=== PATIENT | male | born 1940 | race Caucasian/White ===

== ENCOUNTER 2017-11-07 20:21 | Emergency (ER) | payer OTHER, MEDICARE ==
[2017-11-07] MEDS ORDERED: IPRATROPIUM BROM 0.5MG/2.5ML ONE (21:15)
[2017-11-07] MEDS ORDERED: ALBUTEROL 2.5 MG/3 ML NEB SOL ONE (21:15)
[2017-11-07] MEDS ORDERED: ACETAMINOPHEN 500 MG TAB ONE (21:16)
[2017-11-07 21:30] LABS: Absolute Lymphocytes (CBC) 0.6 K/uL (0.7-4.9); Absolute Monocytes 0.4 K/uL (0.1-1.3); Absolute Neutrophil 3.2 K/uL (1.8-8.0); Basophils % 0.8 % (0-1.3); Eosinophils % 1.2 % (0-4.4); Hematocrit 44.3 % (39.6-49.0); Lymphocytes % 14.1 % (15.3-44.8); MCH 31.6 pg (27.0-35.0); MCV 97.9 fL (80-100); Monocytes % 9.6 % (3.3-12.3); RBC Red Blood Cell Count 4.52 M/uL (4.33-5.43)
[2017-11-07 21:36] LABS: Protime INR 1.12
[2017-11-07 21:47] LABS: ALT/SGPT 29 U/L (12-78); AST/SGOT 20 U/L (15-37); Albumin 2.8 g/dL (3.4-5.0); Alkaline Phosphatase 87 U/L (45-117); BUN Blood Urea Nitrogen 18 mg/dL (7-18); Bicarbonate 28 mmol/L (21-32); Bilirubin Direct < 0.1 mg/dL (0-0.2); Bilirubin Total 0.2 mg/dL (0.2-1.0); Glucose Level 204 mg/dL (74-106); Magnesium 1.8 mg/dL (1.8-2.4); Potassium 3.9 mmol/L (3.5-5.1); Protein, Total 5.8 g/dL (6.4-8.2); Sodium Level 141 mmol/L (136-145)
--- NOTE | 2017-11-07 21:52 | RAD REPORT ---
EXAM DESCRIPTION: RAD - Chest Pa And Lat (2 Views) - 11/07/2017 9:19 pm CLINICAL HISTORY: Persistent cough COMPARISON: April 2017 TECHNIQUE: PA and lateral views of the chest were obtained. FINDINGS: The lungs are fibrotic as a baseline. Interstitial pattern is stable from comparison. No p eripheral mass, consolidation or failure finding. Cardiomediastinal silhouette within normal limits. Trachea is midline. Normal variant colonic interposition between the liver and the right hemidiaphr agm. No pleural effusion or pneumothorax seen. No acute bony finding noted. No aortic abnormality. IMPRESSION: Chronic interstitial lung disease similar to comparison. No acute cardiopulmonary findin g.
[2017-11-07] MEDS ORDERED: AZITHROMYCIN 250 MG TAB ONE (22:38)
[2017-11-07] MEDS ORDERED: CEFTRIAXONE/SWI 1gm 2 GM/20 ML SYR ONE (22:39)
--- NOTE | 2017-11-07 22:49 | ER ---
Nurse's Notes [facility] Name: Elver Tee Age: 77 yrs Sex: Male : 1940 Arrival Date: 11/07/2017 Time: 20:22 Bed 16 Private MD: Mkie Duckworth V Diagnosis: Acute cough;Acute sore throat Presentation: 11/07 20:28 Presenting complaint: Patient states: cough X2 days and throat pain since this morning. ak1 Transition of care: patient was not received from another setting of care. Onset of symptoms was November 07, 2017. Risk Assessment: Do you want to hurt yourself or someone else? Patient reports no desire to harm self or others. Initial Sepsis Screen: Does the patient meet any 2 criteria? No. Patient's initial sepsis screen is negative. Does the patient have a suspected source of infection? No. Patient's initial sepsis screen is negative. Care prior to arrival: None. 20:28 Method Of Arrival: Ambulatory ak1 20:28 Acuity: CUAUHTEMOC 3 ea Triage Assessment: 20:29 General: Appears in no apparent distress. Behavior is calm, cooperative. Pain: ak1 Complains of pain in throat. EENT: Throat is reddened with gag reflex present. Neuro: No deficits noted. Cardiovascular: No deficits noted. Respiratory: No deficits noted. GI: No signs and/or symptoms were reported involving the gastrointestinal system. : No signs and/or symptoms were reported regarding the genitourinary system. Derm: No signs and/or symptoms reported regarding the dermatologic system. Musculoskeletal: No signs and/or symptoms reported regarding the musculoskeletal system. Historical: - Allergies: 20:29 Bacitracin Zinc; ak1 20:29 Neomycin Sulfate; ak1 20:29 Polymyxin B Sulfate; ak1 - Home Meds: 20:29 mirtazapine 15 mg Oral TbDL 1 tab once daily [Active]; Invega 3 mg Oral tr24 [Active]; ak1 Depakote Oral [Active]; clonazepam 2 mg Oral tab 2 tabs [Active]; - PMHx: 20:29 Bipolar disorder; Paranoid Schizophrenia; ak1 - PSHx: 20:29 left hip sx; bilateral knee sx; ak1 - Immunization history:: Adult Immunizations unknown. - Social history:: Smoking status: Patient/guardian denies using tobacco. - Ebola Screening: : No symptoms or risks identified at this time. - Family history:: not pertinent. - Hospitalizations: : No recent hospitalization is reported. Screenin:31 Abuse screen: Denies threats or abuse. Denies injuries from another. Nutritional ak1 screening: No deficits noted. Tuberculosis screening: No symptoms or risk factors identified. Fall Risk Ambulatory Aid- Crutches/Cane/Walker (15 pts). Assessment: 20:31 Respiratory: Airway is patent Respiratory effort is even, unlabored. ak1 22:21 General: Appears uncomfortable, slender, well groomed, well developed, well nourished, tl3 Behavior is calm, cooperative, appropriate for age. Pain: Denies pain. Neuro: Level of Consciousness is awake, alert, Oriented to person, place, time, situation, Appropriate for age. Cardiovascular: Heart tones S1 S2 present Patient's skin is warm and dry. Respiratory: Reports cough that is Breath sounds are coarse bilaterally. Breath sounds are diminished bilaterally. GI: No signs and/or symptoms were reported involving the gastrointestinal system. : No signs and/or symptoms were reported regarding the genitourinary system. EENT: No signs and/or symptoms were reported regarding the EENT system. Derm: No signs and/or symptoms reported regarding the dermatologic system. Musculoskeletal: No signs and/or symptoms reported regarding the musculoskeletal system. 23:03 Reassessment: Patient appears in no apparent distress at this time. No changes from tl3 previously documented assessment. Patient and/or family updated on plan of care and expected duration. Pain level reassessed. Patient is alert, oriented x 3, equal unlabored respirations, skin warm/dry/pink. marshall radha offered, pt resting well. Vital Signs: 20:29 BP 139 / 102; Pulse 86; Resp 18; Temp 99.1(O); Pulse Ox 94% on R/A; Weight 90.72 kg ak1 (R); Height 6 ft. 0 in. (182.88 cm) (R); Pain 4/10; 22:21 BP 127 / 64; Pulse 90; Resp 18; Pulse Ox 93% on R/A; tl3 23:03 BP 124 / 80; Pulse 84; Resp 18; Pulse Ox 93% ; tl3 20:29 Body Mass Index 27.12 (90.72 kg, 182.88 cm) ak1 ED Course: 20:22 Patient arrived in ED. ds1 20:22 Mike Duckworth MD is Private Physician. ds1 20:28 Triage completed. ak1 20:29 Arm band placed on Patient placed in an exam room, on a stretcher, Patient notified of ak1 wait time. 20:31 Patient has correct armband on for positive identification. Bed in low position. Call ak1 light in reach. Side rails up X 1. 20:48 Trell Andrews MD is Attending Physician. wa 21:00 Initial Neb Treatment Given as ordered Patient was instructed and evaluated on tl3 procedure Patient tolerated procedure well without adverse effect. 21:05 Nita Medina, PENNIE is Primary Nurse. tl3 21:16 Patient moved to radiology via wheelchair. la2 21:16 X-ray completed. Patient tolerated procedure well. la2 21:17 XRAY Chest Pa And Lat (2 Views) In Process Unspecified. EDMS 21:18 Inserted saline lock: 20 gauge in right antecubital area, using aseptic technique. mt Blood collected. 22:47 Mike Duckworth MD is Referral Physician. wa 23:13 No provider procedures requiring assistance completed. IV discontinued, intact, tl3 bleeding controlled, No redness/swelling at site. Pressure dressing applied. 23:14 Throat Culture Sent. tl3 Administered Medications: 21:26 Drug: Albuterol 2.5 mg Route: Inhalation; tl3 21:26 Drug: AtroVENT Aerosol 0.5 mg Route: Inhalation; tl3 21:26 Drug: Tylenol 1000 mg Route: PO; tl3 22:46 Drug: Zithromax 500 mg Route: PO; ea 23:03 Follow up: Response: No adverse reaction tl3 22:47 Drug: Rocephin - (cefTRIAXone) 2 grams Route: IVPB; Infused Over: 30 mins; Site: right ea antecubital; 23:02 Follow up: IV Status: Completed infusion; IV Intake: 10ml tl3 Intake: 23:02 IV: 10ml; Total: 10ml. tl3 Outcome: 22:48 Discharge ordered by . wa 23:12 Discharged to home ambulatory. tl3 23:12 Condition: stable 23:12 Discharge instructions given to patient, family, Instructed on discharge instructions, follow up and referral plans. medication usage, Demonstrated understanding of instructions, follow-up care, medications, Prescriptions given X 2. 23:13 Patient left the ED. tl3 Signatures: Dispatcher [employer] EDGA Hayley Worthy ds1 Wendy Max RN RN Bria White mt, Elena, RN RN Trell Franz MD MD wa Ardoin, Leslie la2 Lowrey, Tammy, RN RN tl3 Corrections: (The following items were deleted from the chart) 21:02 20:28 Acuity: CUAUHTEMOC 4 akMayur edmondson
--- NOTE | 2017-11-07 22:49 | EDPHYS ---
Physician Documentation [facility] Name: Elver Tee Age: 77 yrs Sex: Male : 1940 Arrival Date: 11/07/2017 Time: 20:22 Bed 16 Private MD: Mike Duckworth V ED Physician Trell Andrews HPI: 11/07 21:42 This 77 yrs old Male presents to ER via Ambulatory with complaints of Sore wa Throat, Cough. 21:42 The patient presents with cough, sore throat. chest de [place] when coughs. The patient wa describes throat pain as burning, raw. Onset: The symptoms/episode began/occurred 2 day(s) ago. Severity of symptoms: At their worst the symptoms were moderate, in the emergency department the symptoms are unchanged. Modifying factors: The symptoms are alleviated by nothing, the symptoms are aggravated by nothing. Associated signs and symptoms: Pertinent positives: cough, Sore throat Pertinent negatives fever, flu-like symptoms, headache, nausea, rhinorrhea, shortness of breath. The patient has not experienced similar symptoms in the past. The patient has not recently seen a physician. Historical: - Allergies: 20:29 Bacitracin Zinc; ak1 20:29 Neomycin Sulfate; ak1 20:29 Polymyxin B Sulfate; ak1 - Home Meds: 20:29 mirtazapine 15 mg Oral TbDL 1 tab once daily [Active]; Invega 3 mg Oral tr24 [Active]; ak1 Depakote Oral [Active]; clonazepam 2 mg Oral tab 2 tabs [Active]; - PMHx: 20:29 Bipolar disorder; Paranoid Schizophrenia; ak1 - PSHx: 20:29 left hip sx; bilateral knee sx; ak1 - Immunization history:: Adult Immunizations unknown. - Social history:: Smoking status: Patient/guardian denies using tobacco. - Ebola Screening: : No symptoms or risks identified at this time. - Family history:: not pertinent. - Hospitalizations: : No recent hospitalization is reported. ROS: 21:45 Constitutional: Negative for fever, chills, and weight loss, Eyes: Negative for injury, wa pain, redness, and discharge, Neck: Negative for injury, pain, and swelling, Cardiovascular: Negative for chest pain, palpitations, and edema, Abdomen/GI: Negative for abdominal pain, nausea, vomiting, diarrhea, and constipation, Back: Negative for injury and pain, : Negative for injury, bleeding, discharge, and swelling, MS/Extremity: Negative for injury and deformity, Skin: Negative for injury, rash, and discoloration, Neuro: Negative for headache, weakness, numbness, tingling, and seizure, Psych: Negative for depression, anxiety, suicide ideation, homicidal ideation, and hallucinations. 21:45 ENT: Positive for sore throat, Negative for ear pain, rhinorrhea, sinus congestion. 21:45 Respiratory: Positive for cough, with white sputum, Negative for shortness of breath, acute changes. Exam: 21:46 Constitutional: This is a well developed, well nourished patient who is awake, alert, wa and in no acute distress. Head/Face: Normocephalic, atraumatic. Eyes: Pupils equal round and reactive to light, extra-ocular motions intact. Lids and lashes normal. Conjunctiva and sclera are non-icteric and not injected. Cornea within normal limits. Periorbital areas with no swelling, redness, or edema. Neck: Trachea midline, no thyromegaly or masses palpated, and no cervical lymphadenopathy. Supple, full range of motion without nuchal rigidity, or vertebral point tenderness. No Meningismus. Chest/axilla: Normal chest wall appearance and motion. Nontender with no deformity. No lesions are appreciated. Cardiovascular: Regular rate and rhythm with a normal S1 and S2. No gallops, murmurs, or rubs. Normal PMI, no JVD. No pulse deficits. Abdomen/GI: Soft, non-tender, with normal bowel sounds. No distension or tympany. No guarding or rebound. No evidence of tenderness throughout. Back: No spinal tenderness. No costovertebral tenderness. Full range of motion. Skin: Warm, dry with normal turgor. Normal color with no rashes, no lesions, and no evidence of cellulitis. MS/ Extremity: Pulses equal, no cyanosis. Neurovascular intact. Full, normal range of motion. Neuro: Awake and alert, GCS 15, oriented to person, place, time, and situation. Cranial nerves II-XII grossly intact. Motor strength 5/5 in all extremities. Sensory grossly intact. Cerebellar exam normal. Normal gait. Psych: Awake, alert, with orientation to person, place and time. Behavior, mood, and affect are within normal limits. 21:46 ENT: Posterior pharynx: erythema, that is moderate. 21:46 Respiratory: the patient does not display signs of respiratory distress, Respirations: normal, Breath sounds: decreased breath sounds, that are mild, are scattered, Respiratory rate: normal Vital Signs: 20:29 BP 139 / 102; Pulse 86; Resp 18; Temp 99.1(O); Pulse Ox 94% on R/A; Weight 90.72 kg ak1 (R); Height 6 ft. 0 in. (182.88 cm) (R); Pain 4/10; 22:21 BP 127 / 64; Pulse 90; Resp 18; Pulse Ox 93% on R/A; tl3 23:03 BP 124 / 80; Pulse 84; Resp 18; Pulse Ox 93% ; tl3 20:29 Body Mass Index 27.12 (90.72 kg, 182.88 cm) ak1 MDM: 20:48 Patient medically screened. wa 21:47 Differential diagnosis: pharyngitis, upper respiratory infection, viral syndrome r/o wa pna. 21:48 Test interpretation: by ED physician or midlevel provider: EKG: HR 83. sinus wa arrhythmia. no changes suggestive of acute ischemia. 22:45 Data reviewed: vital signs, nurses notes, lab test result(s), EKG, radiologic studies. wa Test interpretation: by ED physician or midlevel provider: labs noted for hyperglycemia. CXR: Interstitial abnml similar to previous. no acute process. Response to treatment: the patient's symptoms have mildly improved after treatment. ED course: pt's symptoms concerning for pna although CXR not diagnostic. will cover empirically and advise close f/u. 11/07 20:57 Order name: Blood Culture Adult (2) 11/07 20:57 Order name: BMP; Complete Time: 22:20 11/07 20:57 Order name: CBC with Diff; Complete Time: 22:20 11/07 20:57 Order name: Hepatic Function; Complete Time: 22:20 11/07 20:57 Order name: Magnesium; Complete Time: 22:21 11/07 20:57 Order name: PT-INR; Complete Time: 22:21 11/07 20:57 Order name: XRAY Chest Pa And Lat (2 Views); Complete Time: 22:21 11/07 20:57 Order name: Troponin (emerg Dept Use Only); Complete Time: 22:21 nh 11/07 20:57 Order name: Strep; Complete Time: 22:20 nh 11/07 21:48 Order name: Throat Culture EDWY 11/07 20:57 Order name: EKG; Complete Time: 20:57 nh 11/07 20:57 Order name: Cardiac monitoring; Complete Time: 21:37 nh 11/07 20:57 Order name: EKG - Nurse/Tech; Complete Time: 21:37 nh 11/07 20:57 Order name: IV Saline Lock; Complete Time: 21:17 nh 11/07 20:57 Order name: Labs collected and sent; Complete Time: 21:17 nh 11/07 20:57 Order name: O2 Per Protocol; Complete Time: 21: nh 11/07 20:57 Order name: O2 Sat Monitoring; Complete Time: 21:17 nh Administered Medications: 21:26 Drug: Albuterol 2.5 mg Route: Inhalation; tl3 21:26 Drug: AtroVENT Aerosol 0.5 mg Route: Inhalation; tl3 21:26 Drug: Tylenol 1000 mg Route: PO; tl3 22:46 Drug: Zithromax 500 mg Route: PO; ea 23:03 Follow up: Response: No adverse reaction tl3 22:47 Drug: Rocephin - (cefTRIAXone) 2 grams Route: IVPB; Infused Over: 30 mins; Site: right ea antecubital; 23:02 Follow up: IV Status: Completed infusion; IV Intake: 10ml tl3 Disposition: 11/07/17 22:48 Discharged to Home. Impression: Acute cough, Acute sore throat. - Condition is Stable. - Prescriptions for Zithromax Z- Dawson 250 mg Oral Tablet - take 1 tablet by ORAL route as directed for 5 days Day 1 - take two (2) tablets one time. Day 2, 3, 4 , 5 take one (1) tablet once daily.; 6 tablet. Albuterol Sulfate 90 mcg/actuation - inhale 1-2 puff by INHALATION route every 4-6 hours; 1 Inhaler. - Medication Reconciliation Form, Thank You Letter, Antibiotic Education, Prescription Opioid Use form. - Follow up: Mike Duckworth MD; When: 2 - 3 days; Reason: Recheck today's complaints. - Problem is new. - Symptoms have improved. - Notes: I am treating you for a potential early onset of pneumonia. please take medicines as directed. have your doctor reassess you within 2-3 days to ensure continued improvement and eventual resolution. return here immediately if your symptoms worsen rapidly as explained to you Signatures: Dispatcher [employer] EDWendy Box RN RN ak1 Jacki Martinez RN RN ea Trell Andrews MD MD wa Lowrey, Tammy, RN RN tl3 Corrections: (The following items were deleted from the chart) 23:13 22:48 11/07/2017 22:48 Discharged to Home. Impression: Acute cough; Acute sore throat. tl3 Condition is Stable. Forms are Medication Reconciliation Form, Thank You Letter, Antibiotic Education, Prescription Opioid Use. Follow up: Mike Duckworth; When: 2 - 3 days; Reason: Recheck today's complaints. Problem is new. Symptoms have improved. vidal
[2017-11-07 23:17] VITALS: TEMP 99.1
[2017-11-07 23:18] VITALS: O2SAT 93
[2017-11-07 23:19] VITALS: BP 124/80
--- NOTE | 2017-11-08 06:52 | EKG ---
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
== END 2017-11-07 23:13 | disposition home or self-care (01) ==
LOC: ER 20:21
DX: J02.9 Acute pharyngitis, unspecified (principal); R05 Cough; Z88.2 Allergy status to sulfonamides; Z91.018 Allergy to other foods
CPT/HCPCS: 36415; 71046; 80048; 80076; 83735; 84484; 85025; 85610; 87040 ×2; 87070; 87081; 93005; 96374; 99284; J0696

== ENCOUNTER 2017-11-18 13:09 | Emergency (ER) | payer OTHER, MEDICARE ==
--- NOTE | 2017-11-18 14:37 | RAD REPORT ---
EXAM DESCRIPTION: RAD - Chest Pa And Lat (2 Views) - 11/18/2017 2:25 pm CLINICAL HISTORY: Cough and congestion COMPARISON: November 07 TECHNIQUE: PA and lateral views of the chest were obtained. FINDINGS: The lungs are fibrotic but clear of a peripheral mass or infiltrate. No failure or volume overload. Heart size is normal and central vasculature is within normal limits. No pleural effusio n or pneumothorax seen. No acute bony finding noted. No aortic abnormality. IMPRESSION: Chronic interstitial lung disease is present similar to comparison. No acute finding.
--- NOTE | 2017-11-18 14:46 | EDPHYS ---
Physician Documentation [facility] Name: Elver Tee Age: 77 yrs Sex: Male : 1940 Arrival Date: 11/18/2017 Time: 13:12 Bed 16 Private MD: Mike Duckworth V ED Physician Raza Gore HPI: 11/18 17:08 This 77 yrs old Male presents to ER via Ambulatory with complaints of Upper snw Respiratory. 17:08 Onset: The symptoms/episode began/occurred 1 week(s) ago, and became persistent. snw Associated signs and symptoms: Pertinent positives: cough. Modifying factors: The patient symptoms are alleviated by nothing. The patient has experienced similar episodes in the past. The patient has been recently seen by a physician: the patient's primary care provider, Dr. Duckworth. took a course of antibiotics - not really improved. Historical: - Allergies: 13:30 Bacitracin Zinc; rb1 13:30 Neomycin Sulfate; rb1 13:30 Polymyxin B Sulfate; rb1 - Home Meds: 13:30 clonazepam 2 mg Oral tab 2 tabs [Active]; Depakote Oral [Active]; Invega 3 mg Oral tr24 rb1 [Active]; mirtazapine 15 mg Oral TbDL 1 tab once daily [Active]; - PMHx: 13:30 Bipolar disorder; Paranoid Schizophrenia; rb1 - PSHx: 13:30 left hip sx; bilateral knee sx; rb1 - Immunization history:: Adult Immunizations up to date. - Social history:: Smoking status: Patient/guardian denies using tobacco. - Ebola Screening: : Patient negative for fever greater than or equal to 101.5 degrees Fahrenheit, and additional compatible Ebola Virus Disease symptoms. ROS: 17:11 Constitutional: Negative for fever, chills, and weight loss, Eyes: Negative for injury, snw pain, redness, and discharge, ENT: Negative for injury, pain, and discharge, Neck: Negative for injury, pain, and swelling, Cardiovascular: Negative for chest pain, palpitations, and edema, Abdomen/GI: Negative for abdominal pain, nausea, vomiting, diarrhea, and constipation, Back: Negative for injury and pain, : Negative for injury, bleeding, discharge, and swelling, MS/Extremity: Negative for injury and deformity, Skin: Negative for injury, rash, and discoloration, Neuro: Negative for headache, weakness, numbness, tingling, and seizure. 17:11 Respiratory: Positive for cough, "sounds productive". Exam: 17:08 Constitutional: This is a well developed, well nourished patient who is awake, alert, snw and in no acute distress. Head/Face: Normocephalic, atraumatic. Eyes: Pupils equal round and reactive to light, extra-ocular motions intact. Lids and lashes normal. Conjunctiva and sclera are non-icteric and not injected. Cornea within normal limits. Periorbital areas with no swelling, redness, or edema. ENT: Nares patent. No nasal discharge, no septal abnormalities noted. Tympanic membranes are normal and external auditory canals are clear. Oropharynx with no redness, swelling, or masses, exudates, or evidence of obstruction, uvula midline. Mucous membranes moist. Neck: Trachea midline, no thyromegaly or masses palpated, and no cervical lymphadenopathy. Supple, full range of motion without nuchal rigidity, or vertebral point tenderness. No Meningismus. Chest/axilla: Normal chest wall appearance and motion. Nontender with no deformity. No lesions are appreciated. Cardiovascular: Regular rate and rhythm with a normal S1 and S2. No gallops, murmurs, or rubs. Normal PMI, no JVD. No pulse deficits. Abdomen/GI: Soft, non-tender, with normal bowel sounds. No distension or tympany. No guarding or rebound. No evidence of tenderness throughout. Back: No spinal tenderness. No costovertebral tenderness. Full range of motion. Skin: Warm, dry with normal turgor. Normal color with no rashes, no lesions, and no evidence of cellulitis. MS/ Extremity: Pulses equal, no cyanosis. Neurovascular intact. Full, normal range of motion. Neuro: Awake and alert, GCS 15, oriented to person, place, time, and situation. Cranial nerves II-XII grossly intact. Motor strength 5/5 in all extremities. Sensory grossly intact. Cerebellar exam normal. Normal gait. Psych: Awake, alert, with orientation to person, place and time. Behavior, mood, and affect are within normal limits. 17:08 Respiratory: the patient does not display signs of respiratory distress, Respirations: normal, Breath sounds: are clear throughout, harsh cough. Vital Signs: 13:24 BP 138 / 83; Pulse 94 MON; Resp 18; Temp 98.8; Pulse Ox 95% on R/A; Weight 90.72 kg; sg Height 6 ft. 0 in. (182.88 cm); Pain 0/10; 14:44 BP 131 / 79; Pulse 79; Resp 22; Pulse Ox 95% on R/A; mh5 15:40 BP 120 / 81; Pulse 70; Resp 19; Pulse Ox 98% on R/A; rb1 13:24 Body Mass Index 27.12 (90.72 kg, 182.88 cm) sg MDM: 13:30 Patient medically screened. snw 17:11 Data reviewed: vital signs, nurses notes. Data interpreted: Pulse oximetry: on room air snw is 93 %. Interpretation: acceptable. Counseling: I had a detailed discussion with the patient and/or guardian regarding: the historical points, exam findings, and any diagnostic results supporting the discharge/admit diagnosis, the presence of at least one elevated blood pressure reading (>120/80) during this emergency department visit, radiology results, the need for outpatient follow up, to return to the emergency department if symptoms worsen or persist or if there are any questions or concerns that arise at home. Special discussion: Based on the history and exam findings, there is no indication for further emergent testing or inpatient evaluation. I discussed with the patient/guardian the need to see the primary care provider for further evaluation of the symptoms. 11/18 13:31 Order name: Chest Pa And Lat (2 Views) XRAY; Complete Time: 14:39 snw Administered Medications: 15:14 Drug: Albuterol 2.5 mg Route: Inhalation; rb1 15:35 Follow up: Response: No adverse reaction; Marked relief of symptoms rb1 Disposition: 18:35 Co-signature as Attending Physician, Raza Gore MD. rn Disposition: 11/18/17 14:46 Discharged to Home. Impression: Cough. - Condition is Stable. - Discharge Instructions: Cool Mist Vaporizers, Cough, Adult, Aucp-nw-Esud. - Prescriptions for Albuterol Sulfate 90 mcg/actuation - inhale 1-2 puff by INHALATION route every 4-6 hours; 1 Inhaler. - Medication Reconciliation Form, Thank You Letter, Antibiotic Education, Prescription Opioid Use form. - Follow up: Mike Duckworth MD; When: 2 - 3 days; Reason: Recheck today's complaints, Continuance of care, Re-evaluation by your physician. Follow up: Emergency Department; When: As needed; Reason: Worsening of condition. Signatures: Dispatcher [employer] EDIvory Noy, PODIATRY TEACHER-C PODIATRY TEACHER-Csnw Raza Gore MD MD rn Thania Pearson RN RN rb1 Corrections: (The following items were deleted from the chart) 16:13 14:46 11/18/2017 14:46 Discharged to Home. Impression: Cough. Condition is Stable. rb1 Forms are Medication Reconciliation Form, Thank You Letter, Antibiotic Education, Prescription Opioid Use. Follow up: Mike Duckworth; When: 2 - 3 days; Reason: Recheck today's complaints, Continuance of care, Re-evaluation by your physician. Follow up: Emergency Department; When: As needed; Reason: Worsening of condition. snw
--- NOTE | 2017-11-18 14:46 | ER ---
Nurse's Notes [facility] Name: Elver Tee Age: 77 yrs Sex: Male : 1940 Arrival Date: 11/18/2017 Time: 13:12 Bed 16 Private MD: Mike Duckworth V Diagnosis: Cough Presentation: 11/18 13:23 Presenting complaint: Patient states: Has had a really bad cough and chest congestion sg for about a week and a half now, Has seen started on cough syrup at night and tessalon magnus for daytime use, also finishing up a round of amoxicillin but still not getting any better at this time. Transition of care: patient was not received from another setting of care. Onset of symptoms was November 18, 2017. Risk Assessment: Do you want to hurt yourself or someone else? Patient reports no desire to harm self or others. Initial Sepsis Screen: Does the patient meet any 2 criteria? No. Patient's initial sepsis screen is negative. Does the patient have a suspected source of infection? No. Patient's initial sepsis screen is negative. Care prior to arrival: None. 13:23 Method Of Arrival: Ambulatory sg 13:23 Acuity: CUAUHTEMOC 3 sg Triage Assessment: 13:30 Pain: Denies pain. rb1 Historical: - Allergies: 13:30 Bacitracin Zinc; rb1 13:30 Neomycin Sulfate; rb1 13:30 Polymyxin B Sulfate; rb1 - Home Meds: 13:30 clonazepam 2 mg Oral tab 2 tabs [Active]; Depakote Oral [Active]; Invega 3 mg Oral tr24 rb1 [Active]; mirtazapine 15 mg Oral TbDL 1 tab once daily [Active]; - PMHx: 13:30 Bipolar disorder; Paranoid Schizophrenia; rb1 - PSHx: 13:30 left hip sx; bilateral knee sx; rb1 - Immunization history:: Adult Immunizations up to date. - Social history:: Smoking status: Patient/guardian denies using tobacco. - Ebola Screening: : Patient negative for fever greater than or equal to 101.5 degrees Fahrenheit, and additional compatible Ebola Virus Disease symptoms. Screenin:30 Abuse screen: Denies threats or abuse. Nutritional screening: No deficits noted. rb1 Tuberculosis screening: No symptoms or risk factors identified. Fall Risk No fall in past 12 months (0 pts). Secondary diagnosis (15 points) impaired mobility, No IV (0 pts). Ambulatory Aid- Crutches/Cane/Walker (15 pts). Gait- Impaired (20 pts.). Mental Status- Oriented to own ability (0 pts). Total Kowalski Fall Scale indicates High Risk Score (45 or more points). Fall prevention measures have been instituted. Side Rails Up X 2 Placed Close to Nursing Station 1:1 Attendant Assigned Frequent Obs/Assessments Occuring Family Present and informed to notify staff if the need to leave the bedside As available patient and family educated on Fall Prevention Program and Strategies. Assessment: 13:30 General: Appears in no apparent distress. comfortable, Behavior is calm, cooperative, rb1 Denies fever. Neuro: Level of Consciousness is awake, alert, obeys commands, Oriented to person, place, time, situation. Cardiovascular: Capillary refill < 3 seconds is brisk in bilateral fingers. Respiratory: Reports cough that is non-productive, Airway is patent Respiratory effort is even, unlabored, Respiratory pattern is regular, symmetrical. GI: No signs and/or symptoms were reported involving the gastrointestinal system. : No signs and/or symptoms were reported regarding the genitourinary system. Derm: Skin is pink, warm \T\ dry. 13:30 Pain: Denies pain. rb1 14:01 Reassessment: Pt. went to X-ray. rb1 14:30 Reassessment: Patient appears in no apparent distress at this time. Patient and/or rb1 family updated on plan of care and expected duration. Pain level reassessed. Patient is alert, oriented x 3, equal unlabored respirations, skin warm/dry/pink. 15:30 Reassessment: Patient appears in no apparent distress at this time. No changes from rb1 previously documented assessment. Pt. called for transportation home. Vital Signs: 13:24 BP 138 / 83; Pulse 94 MON; Resp 18; Temp 98.8; Pulse Ox 95% on R/A; Weight 90.72 kg; sg Height 6 ft. 0 in. (182.88 cm); Pain 0/10; 14:44 BP 131 / 79; Pulse 79; Resp 22; Pulse Ox 95% on R/A; mh5 15:40 BP 120 / 81; Pulse 70; Resp 19; Pulse Ox 98% on R/A; rb1 13:24 Body Mass Index 27.12 (90.72 kg, 182.88 cm) ED Course: 13:12 Patient arrived in ED. sb2 13:12 Mike Duckworth MD is Private Physician. sb2 13:24 Triage completed. sg 13:30 [facility] snw 13:30 Raza Gore MD is Attending Physician. snw 13:30 Arm band placed on right wrist. rb1 14:00 Thania Pearson, RN is Primary Nurse. rb1 14:26 Chest Pa And Lat (2 Views) XRAY In Process Unspecified. EDMS 14:33 Patient has correct armband on for positive identification. Placed in gown. Bed in low mh5 position. Call light in reach. Side rails up X2. Warm blanket given. conveyor monitor on. Pulse ox on. NIBP on. 14:45 Mike Duckworth MD is Referral Physician. snw 16:00 No provider procedures requiring assistance completed. Patient did not have IV access rb1 during this emergency room visit. Administered Medications: 15:14 Drug: Albuterol 2.5 mg Route: Inhalation; rb1 15:35 Follow up: Response: No adverse reaction; Marked relief of symptoms rb1 Outcome: 14:46 Discharge ordered by MD. snw 16:00 Patient left the ED. rb1 16:00 Discharged to home ambulatory, with family. rb1 16:00 Condition: stable 16:00 Discharge instructions given to patient, Instructed on discharge instructions, follow up and referral plans. medication usage, Demonstrated understanding of instructions, follow-up care, medications, Prescriptions given X 1. Signatures: Dispatcher [employer] [facility] Tj Story RN RN Ginny Reynolds FNP-C AUDITOR INTERNAL-[employer] Thania Pearson, RN RN [facility] Ely Patel sb2 Corrections: (The following items were deleted from the chart) 19:28 16:13 Patient left the ED. rb1 rb1 19:29 15:30 Reassessment: Patient appears in no apparent distress at this time. No changes rb1 from previously documented assessment. rb1
[2017-11-18] MEDS ORDERED: ALBUTEROL 2.5 MG/3 ML NEB SOL ONE (15:08)
[2017-11-18 16:17] VITALS: TEMP 98.8; O2SAT 95
[2017-11-18 16:18] VITALS: BP 131/79
== END 2017-11-18 16:13 | disposition home or self-care (01) ==
LOC: ER 13:09
DX: R05 Cough (principal); Z88.1 Allergy status to other antibiotic agents; Z88.8 Allergy status to other drugs, medicaments and biological substances
CPT/HCPCS: 71046; 99284

== ENCOUNTER 2018-08-12 19:37 | Emergency (ER) | payer OTHER, MEDICARE ==
--- OUTSIDE RECORDS SUMMARY | 2018-08-12 19:39 | XMS REPORT ---
:1940 [facility] Address [address] [place] [address] Dr. Haney. [address] [place] [id number] Care Team Providers Name Role Phone Unavailable Unavailable Unavailable Problems This patient has no known problems. Allergies, Adverse Reactions, Alerts This patient has no known allergies or adverse reactions. Medications This patient has no known medications.
--- NOTE | 2018-08-12 20:55 | RAD REPORT ---
EXAM DESCRIPTION: CT - Stone Protocol - 08/12/2018 8:21 pm CLINICAL HISTORY: Difficulty urinating, pelvic and flank pain COMPARISON: None. TECHNIQUE: Axial 5 mm thick images were obtained without oral or IV contrast. The [id number] span s the entirety of the system partially obscuring uppermost abdomen and lung bases. All CT scans are performed using dose optimization technique as appropriate and may include automated exposure control or mA/KV adjustment according to patient size. FINDINGS: No hydronephrosis is present and no obstructing ureteral calculi. A 1 millimeter nonobstru cting calculus is present a calyx upper pole left kidney. No suspicious renal masses. Isodense masses and pyelonephritis are not excluded on a stone protocol CT scan. No focal abnormality of the partial ly filled urinary bladder. No significant adrenal finding. Numerous calcifications are present within and adjacent to the prostate gland. No abnormal prostate enlargement or invasion of adjacent structu res. Penile prosthesis and reservoir pump are noted. Imaged portions of the liver, spleen and pancreas show no suspicious findings on non-contrast imaging . No gallbladder or biliary tree abnormality identified. No gastric dilatation or wall thickening. Dilated small bowel or focal small bowel abnormality. Moder ate stool volume is present scattered in the colon. Colon is extremely tortuous and redundant. This t ortuosity in the presence of motion limit the ability to evaluate the colon. Sigmoid colon extends we ll into the superior right upper quadrant. An area of wall thickening and stranding is present in the right upper quadrant. Is difficult to determine if this is part of the hepatic flexure of the colon or part of the very tortuous and redundant sigmoid colon. No hernia, mass or bulky lymphadenopathy noted. No free air, free fluid or inflammatory stranding. No significant bony abnormality. IMPRESSION: No acute finding identified. No abnormality seen to explain patient's difficulty. Pen ile prosthesis is in place. A urethral stricture is not excluded. Isodense masses and pyelonephritis are not excluded on stone protocol technique. Short segment bowel wall thickening and stranding present in the superior right upper quadrant. Patie nt has an extremely tortuous and redundant sigmoid colon in overall colonic tortuosity. Multiple loop s of colon abut 1 another in the right upper quadrant making it difficult to determine if the wall th ickening and stranding is part of sigmoid colon or hepatic flexure of the colon. Colon finding is unrelated to the urologic symptoms. Colitis or colon mass are both possible.
[2018-08-12 21:06] LABS: BUN Blood Urea Nitrogen 16 mg/dL (7-18); Bicarbonate 25 mmol/L (21-32); Glucose Level 111 mg/dL (74-106); Sodium Level 142 mmol/L (136-145)
--- NOTE | 2018-08-12 21:15 | ER ---
Nurse's Notes [facility] Name: Elver Tee Age: 77 yrs Sex: Male : 1940 Arrival Date: 08/12/2018 Time: 19:37 Bed 25 Private MD: Mike Duckworth V Diagnosis: Left sided colitis Presentation: 08/12 19:51 Presenting complaint: Patient states: "I'm having trouble with my bladder, I can't aj1 urinate." Reports that he has been having small dribbles here and there but has not been able to urinate "a full stream in months" and his bladder has felt overly full for months, he is scheduled to see Dr. Quach next Wednesday. Transition of care: patient was not received from another setting of care. Onset of symptoms was 2018. Risk Assessment: Do you want to hurt yourself or someone else? Patient reports no desire to harm self or others. Initial Sepsis Screen: Does the patient meet any 2 criteria? No. Patient's initial sepsis screen is negative. Does the patient have a suspected source of infection? No. Patient's initial sepsis screen is negative. Care prior to arrival: None. 19:51 Method Of Arrival: Ambulatory aj1 19:51 Acuity: CUAUHTEMOC 3 aj1 Triage Assessment: 19:54 General: Appears in no apparent distress. uncomfortable, Behavior is calm, cooperative, aj1 appropriate for age. Pain: Complains of pain in suprapubic area Pain currently is 2 out of 10 on a pain scale. Neuro: Level of Consciousness is awake, alert, obeys commands. Cardiovascular: Patient's skin is warm and dry. Respiratory: Airway is patent Respiratory effort is even, unlabored, Respiratory pattern is regular, symmetrical. Historical: - Allergies: 19:54 Bacitracin Zinc; aj1 19:54 Neomycin Sulfate; aj1 19:54 Polymyxin B Sulfate; aj1 - PMHx: 19:54 Bipolar disorder; Paranoid Schizophrenia; aj1 - Immunization history:: Flu vaccine is not up to date. - Social history:: Smoking status: Patient/guardian denies using tobacco. - Ebola Screening: : Patient denies travel to an Ebola-affected area in the 21 days before illness onset. Screenin:00 Abuse screen: Denies threats or abuse. Nutritional screening: No deficits noted. jb4 Tuberculosis screening: No symptoms or risk factors identified. Fall Risk Ambulatory Aid- Crutches/Cane/Walker (15 pts). Gait- Impaired (20 pts.). Mental Status- Oriented to own ability (0 pts). Total Kowalski Fall Scale indicates Low Risk Score (25-44 pts). Fall prevention measures have been instituted. Side Rails Up X 2 Placed close to Nursing Station Frequent Obs/Assesments occuring Family Present and informed to notify staff if they need to leave bedside. Assessment: 19:55 General: Appears in no apparent distress. comfortable, Behavior is calm, cooperative, jb4 appropriate for age. Pain: Denies pain. Neuro: Level of Consciousness is awake, alert, obeys commands, Oriented to person, place, time, situation. Cardiovascular: Patient's skin is warm and dry. Respiratory: Airway is patent Respiratory effort is even, unlabored, Respiratory pattern is regular, symmetrical. GI: No signs and/or symptoms were reported involving the gastrointestinal system. : Reports pain with urination. EENT: No signs and/or symptoms were reported regarding the EENT system. Derm: Skin is intact, Skin is pink, warm \\T\\ dry. Musculoskeletal: Circulation, motion, and sensation intact. 21:00 Reassessment: Patient appears in no apparent distress at this time. Patient and/or jb4 family updated on plan of care and expected duration. Pain level reassessed. Patient is alert, oriented x 3, equal unlabored respirations, skin warm/dry/pink. Vital Signs: 19:54 BP 132 / 92; Pulse 85; Resp 20; Temp 97.7; Pulse Ox 94% on R/A; Weight 87.09 kg (R); aj1 21:20 BP 115 / 73; Pulse 60; Resp 18; Pulse Ox 97% on R/A; Pain 0/10; jp3 ED Course: 19:37 Patient arrived in ED. mr 19:38 Mike Duckworth MD is Private Physician. mr 19:53 Triage completed. aj1 19:54 Arm band placed on Patient placed in an exam room. aj1 19:57 Corona Mondragon RN is Primary Nurse. jb4 19:59 Demi Chavez FNP-C is [facility]. kb 19:59 Kobe Friend MD is Attending Physician. kb 20:00 Patient has correct armband on for positive identification. Bed in low position. Call jb4 light in reach. Side rails up X 1. Pulse ox on. NIBP on. 20:[address] vr 20:20 CT completed. Patient tolerated procedure well. Patient moved back from CT. devorah 20:22 CT Stone Protocol In Process Unspecified. EDMS 20:40 Initial lab(s) drawn, by me, sent to lab. Urine collected: clean catch specimen. jb4 Inserted saline lock: 20 gauge in left forearm, using aseptic technique. Blood collected. 20:47 Basic Metabolic Panel Sent. jb4 21:41 No provider procedures requiring assistance completed. IV discontinued, intact, jb4 bleeding controlled. Administered Medications: 21:38 Drug: Cipro 500 mg Route: PO; jb4 21:39 Follow up: Response: No adverse reaction; Medication administered at discharge. jb4 21:38 Drug: Flagyl 500 mg Route: PO; jb4 21:38 Follow up: Response: No adverse reaction; Medication administered at discharge. jb4 Outcome: 21:14 Discharge ordered by . kb 21:38 Discharged to home ambulatory, with family. jb4 21:38 Condition: stable 21:38 Discharge instructions given to patient, family, Instructed on discharge instructions, follow up and referral plans. medication usage, Demonstrated understanding of instructions, follow-up care, medications, Prescriptions given X 2. 21:42 Patient left the ED. jb4 Signatures: Dispatcher [employer] EDNM Demi Chavez, HOUSE CARPENTER HELPER-C VIVEK-Yenni Peterson RN RN aj1 Arturo, Viviane mr Sonia Lopez James, RN RN jb4 Mathew Prasad Jacob jp3
--- NOTE | 2018-08-12 21:15 | EDPHYS ---
Physician Documentation [facility] Name: Elver Tee Age: 77 yrs Sex: Male : 1940 Arrival Date: 08/12/2018 Time: 19:37 Bed 25 Private MD: Mike Duckworth V ED Physician Kobe Friend HPI: 08/12 20:16 This 77 yrs old Male presents to ER via Ambulatory with complaints of Urinary kb Problem. 20:17 The patient presents with urinary symptoms, dribbling of urine. Onset: The kb symptoms/episode began/occurred "months ago". Modifying factors: The symptoms are alleviated by nothing, the symptoms are aggravated by nothing. Associated signs and symptoms: The patient has no apparent associated signs or symptoms. Severity of symptoms: At their worst the symptoms were moderate, in the emergency department the symptoms are unchanged. The patient has not experienced similar symptoms in the past. The patient has not recently seen a physician. Pt reports he has felt like he can't empty his bladder for months. States he hasn't really urinated in a long time, just dribbled small amounts. Came in tonight because he is frustrated that this is happening and is tired of it. No history of prostate issues. Has appt with Dr Quach on Wednesday. Historical: - Allergies: 19:54 Bacitracin Zinc; aj1 19:54 Neomycin Sulfate; aj1 19:54 Polymyxin B Sulfate; aj1 - PMHx: 19:54 Bipolar disorder; Paranoid Schizophrenia; aj1 - Immunization history:: Flu vaccine is not up to date. - Social history:: Smoking status: Patient/guardian denies using tobacco. - Ebola Screening: : Patient denies travel to an Ebola-affected area in the 21 days before illness onset. ROS: 20:11 Constitutional: Negative for fever, chills, and weight loss, Cardiovascular: Negative kb for chest pain, palpitations, and edema, Respiratory: Negative for shortness of breath, cough, wheezing, and pleuritic chest pain, Abdomen/GI: Negative for abdominal pain, nausea, vomiting, diarrhea, and constipation, MS/Extremity: Negative for injury and deformity, Skin: Negative for injury, rash, and discoloration, Neuro: Negative for headache, weakness, numbness, tingling, and seizure. 20:11 : Positive for urinary symptoms, small amounts. Exam: 20:15 Constitutional: This is a well developed, well nourished patient who is awake, alert, kb and in no acute distress. Head/Face: Normocephalic, atraumatic. ENT: Nares patent. No nasal discharge, no septal abnormalities noted. Tympanic membranes are normal and external auditory canals are clear. Oropharynx with no redness, swelling, or masses, exudates, or evidence of obstruction, uvula midline. Mucous membranes moist. Neck: Trachea midline, no thyromegaly or masses palpated, and no cervical lymphadenopathy. Supple, full range of motion without nuchal rigidity, or vertebral point tenderness. No Meningismus. Chest/axilla: Normal chest wall appearance and motion. Nontender with no deformity. No lesions are appreciated. Cardiovascular: Regular rate and rhythm with a normal S1 and S2. No gallops, murmurs, or rubs. Normal PMI, no JVD. No pulse deficits. Respiratory: Lungs have equal breath sounds bilaterally, clear to auscultation and percussion. No rales, rhonchi or wheezes noted. No increased work of breathing, no retractions or nasal flaring. Abdomen/GI: Soft, non-tender, with normal bowel sounds. No distension or tympany. No guarding or rebound. No evidence of tenderness throughout. Skin: Warm, dry with normal turgor. Normal color with no rashes, no lesions, and no evidence of cellulitis. MS/ Extremity: Pulses equal, no cyanosis. Neurovascular intact. Full, normal range of motion. Neuro: Awake and alert, GCS 15, oriented to person, place, time, and situation. Cranial nerves II-XII grossly intact. Motor strength 5/5 in all extremities. Sensory grossly intact. Cerebellar exam normal. Normal gait. Vital Signs: 19:54 BP 132 / 92; Pulse 85; Resp 20; Temp 97.7; Pulse Ox 94% on R/A; Weight 87.09 kg (R); aj1 21:20 BP 115 / 73; Pulse 60; Resp 18; Pulse Ox 97% on R/A; Pain 0/10; jp3 MDM: 19:59 Patient medically screened. kb 20:12 Data reviewed: vital signs, nurses notes. Data interpreted: Pulse oximetry: on room air kb is 94 %. Interpretation: acceptable. 21:13 Counseling: I had a detailed discussion with the patient and/or guardian regarding: the kb historical points, exam findings, and any diagnostic results supporting the discharge/admit diagnosis, lab results, radiology results, the need for outpatient follow up, a general surgeon, a rail walker, a urologist, to return to the emergency department if symptoms worsen or persist or if there are any questions or concerns that arise at home. ED course: Pt has endoscopy scheduled on Wednesday, colonoscopy on Wednesday and appt with Dr Quach on Wednesday. Educated to keep all appts. . 08/12 20:04 Order name: Basic Metabolic Panel; Complete Time: 21:07 kb 08/12 21:13 Order name: Urine Dipstick--Ancillary (enter results) ar5 08/12 19:59 Order name: Bladder Scanner; Complete Time: 20:17 kb 08/12 20:04 Order name: CT Stone Protocol; Complete Time: 20:57 kb 08/12 20:00 Order name: Urine Dipstick-Ancillary (obtain specimen); Complete Time: 20:47 kb 08/12 20:04 Order name: IV Start; Complete Time: 20:47 kb Administered Medications: 21:38 Drug: Cipro 500 mg Route: PO; 4 21:39 Follow up: Response: No adverse reaction; Medication administered at discharge. 4 21:38 Drug: Flagyl 500 mg Route: PO; jb4 21:38 Follow up: Response: No adverse reaction; Medication administered at discharge. jb4 Disposition: 08/12/18 21:14 Discharged to Home. Impression: Left sided colitis. - Condition is Stable. - Discharge Instructions: Abdominal Pain, Adult, [id number]. - Prescriptions for Flagyl 500 mg Oral Tablet - take 1 tablet by ORAL route every 8 hours for 7 days; 21 tablet. Cipro 500 mg Oral Tablet - take 1 tablet by ORAL route every 12 hours for 7 days; 14 tablet. - Medication Reconciliation Form, Thank You Letter, Antibiotic Education, Prescription Opioid Use form. - Follow up: Emergency Department; When: As needed; Reason: Worsening of condition. Follow up: Private Physician; When: 2 - 3 days; Reason: Recheck today's complaints, Continuance of care, Re-evaluation by your physician. Addendum: 08/15/2018 11:13 Co-signature as Attending Physician, Kobe Friend MD I agree with the assessment and c [place] plan of care. Signatures: Dispatcher [employer] EDDemi Beard, FERMENTER HELPER-C FERMENTER HELPER-Yenni Peterson, RN RN aj1 Kobe Friend MD MD cha Bryson, James, RN RN jb4 Corrections: (The following items were deleted from the chart) 08/12 21:42 21:14 08/12/2018 21:14 Discharged to Home. Impression: Left sided colitis. Condition is jb4 Stable. Forms are Medication Reconciliation Form, Thank You Letter, Antibiotic Education, Prescription Opioid Use. Follow up: Emergency Department; When: As needed; Reason: Worsening of condition. Follow up: Private Physician; When: 2 - 3 days; Reason: Recheck today's complaints, Continuance of care, Re-evaluation by your physician. kb
[2018-08-12] MEDS ORDERED: metroNIDAZOLE 500 MG TABLET ONE (21:33)
[2018-08-12] MEDS ORDERED: CIPROFLOXACIN HCL 500 MG TAB ONE (21:34)
[2018-08-12 21:43] LABS: Urine Blood NEGATIVE (NEG); Urine Glucose NEGATIVE (NEG); Urine Protein NEGATIVE (NEG); Urine Specific Gravity 1.025 (1.005-1.030)
[2018-08-12 22:12] VITALS: TEMP 97.7
[2018-08-12 22:13] VITALS: BP 115/73; O2SAT 97
== END 2018-08-12 21:42 | disposition home or self-care (01) ==
LOC: ER 19:37
DX: K51.50 Left sided colitis without complications (principal); F20.0 Paranoid schizophrenia; Z88.1 Allergy status to other antibiotic agents; Z88.3 Allergy status to other anti-infective agents; Z88.8 Allergy status to other drugs, medicaments and biological substances
CPT/HCPCS: 36415; 74176; 76377; 80048; 81003; 99284

== ENCOUNTER 2018-08-23 09:35 | Emergency (ER) | payer OTHER, MEDICARE ==
--- OUTSIDE RECORDS SUMMARY | 2018-08-23 09:49 | XMS REPORT ---
:1940 [facility] Address [address] [place] [address] Dr. Haney. [address] [place] [id number] Care Team Providers Name Role Phone Unavailable Unavailable Unavailable Problems This patient has no known problems. Allergies, Adverse Reactions, Alerts This patient has no known allergies or adverse reactions. Medications This patient has no known medications.
[2018-08-23 10:36] LABS: Urine Blood TRACE (NEG); Urine Glucose NEGATIVE (NEG); Urine Protein NEGATIVE (NEG); Urine pH 6.5 (5.0-7.0)
[2018-08-23 10:40] LABS: Urine Amorphous Sediment 1+ /HPF (NONE SEEN); Urine Bacteria NONE SEEN /HPF (NONE SEEN); Urine Culture Reflex Order NOT NEEDED; Urine Mucus HEAVY /HPF (NONE SEEN)
[2018-08-23 10:41] LABS: Absolute Lymphocytes (CBC) 0.7 K/uL (0.7-4.9); Absolute Monocytes 0.3 K/uL (0.1-1.3); Absolute Neutrophil 5.1 K/uL (1.8-8.0); Basophils % 0.8 % (0-1.3); Eosinophils % 1.2 % (0-4.4); Hematocrit 47.3 % (39.6-49.0); Lymphocytes % 11.9 % (15.3-44.8); MPV 8.5 fL (7.6-11.3); Monocytes % 4.8 % (3.3-12.3)
[2018-08-23 10:51] LABS: Potassium 3.4 mmol/L (3.5-5.1)
--- NOTE | 2018-08-23 11:07 | RAD REPORT ---
EXAM DESCRIPTION: US - Extremity Venous Uni Ltd - 08/23/2018 11:00 am CLINICAL HISTORY: SWELLING Leg swelling and edema. COMPARISON: No comparisons FINDINGS: Left lower extremity venous system was interrogated with Doppler technique. Normal flow, c ompressibility and augmentation was noted. There is no DVT present. IMPRESSION: No evidence of left lower extremity deep venous thrombosis.
--- NOTE | 2018-08-23 11:20 | EDPHYS ---
Physician Documentation [facility] Name: Elver Tee Age: 77 yrs Sex: Male : 1940 Arrival Date: 08/23/2018 Time: 09:36 Bed 20 Private MD: Mike Duckworth V ED Physician Raza Gore HPI: 08/23 11:12 This 77 yrs old Male presents to ER via Wheelchair with complaints of Urinary jr8 Retention. 11:12 Onset: The symptoms/episode began/occurred acutely, today. Associated signs and jr8 symptoms: Pertinent positives: abdominal pain. Modifying factors: The patient symptoms are alleviated by nothing, the patient symptoms are aggravated by urinating. The patient has experienced a previous episode. The patient has not recently seen a physician. of patient stated that he recently finished antibiotics for UTI. Stated that he has had retention in past and started to have it again yesterday. Last normal urination was yesterday sometime. Came in today with suprapubic pain and acute retention . Historical: - Allergies: 09:42 Bacitracin Zinc; aa5 09:42 Neomycin Sulfate; aa5 09:42 Polymyxin B Sulfate; aa5 - PMHx: 09:42 Bipolar disorder; Paranoid Schizophrenia; aa5 - Immunization history:: Flu vaccine status is unknown. - Social history:: Smoking status: Patient/guardian denies using tobacco. - Ebola Screening: : No symptoms or risks identified at this time. ROS: 11:12 Eyes: Negative for injury, pain, redness, and discharge, ENT: Negative for injury, jr8 pain, and discharge, Neck: Negative for injury, pain, and swelling, Cardiovascular: Negative for chest pain, palpitations, and edema, Respiratory: Negative for shortness of breath, cough, wheezing, and pleuritic chest pain, Back: Negative for injury and pain, MS/Extremity: Negative for injury and deformity, Skin: Negative for injury, rash, and discoloration, Neuro: Negative for headache, weakness, numbness, tingling, and seizure. 11:12 Abdomen/GI: Positive for abdominal pain, Negative for nausea, vomiting, and diarrhea, abdominal distension, anorexia, dysphagia, hematemesis, black/tarry stool, rectal pain, rectal bleeding, bowel incontinence, flatulence. 11:12 : Positive for difficulty urinating. Exam: 11:12 Eyes: Pupils equal round and reactive to light, extra-ocular motions intact. Lids and jr8 lashes normal. Conjunctiva and sclera are non-icteric and not injected. Cornea within normal limits. Periorbital areas with no swelling, redness, or edema. ENT: Nares patent. No nasal discharge, no septal abnormalities noted. Tympanic membranes are normal and external auditory canals are clear. Oropharynx with no redness, swelling, or masses, exudates, or evidence of obstruction, uvula midline. Mucous membranes moist. Neck: Trachea midline, no thyromegaly or masses palpated, and no cervical lymphadenopathy. Supple, full range of motion without nuchal rigidity, or vertebral point tenderness. No Meningismus. Cardiovascular: Regular rate and rhythm with a normal S1 and S2. No gallops, murmurs, or rubs. Normal PMI, no JVD. No pulse deficits. Respiratory: Lungs have equal breath sounds bilaterally, clear to auscultation and percussion. No rales, rhonchi or wheezes noted. No increased work of breathing, no retractions or nasal flaring. Back: No spinal tenderness. No costovertebral tenderness. Full range of motion. Skin: Warm, dry with normal turgor. Normal color with no rashes, no lesions, and no evidence of cellulitis. MS/ Extremity: Pulses equal, no cyanosis. Neurovascular intact. Full, normal range of motion. Neuro: Awake and alert, GCS 15, oriented to person, place, time, and situation. Cranial nerves II-XII grossly intact. Motor strength 5/5 in all extremities. Sensory grossly intact. Cerebellar exam normal. Normal gait. 11:12 Abdomen/GI: Inspection: abdomen appears normal, Bowel sounds: active, all quadrants, Palpation: soft, in all quadrants, mild abdominal tenderness, in the suprapubic area, mass, is not appreciated, rebound tenderness, is not appreciated, voluntary guarding, is elicited in all quadrants, involuntary guarding, is not appreciated, no appreciated organomegaly, Indicators: McBurney's point is not tender, Sanz's sign is negative, Rovsing's sign is negative, Liver: no appreciated palpable abnormalities, tenderness, is not appreciated. Vital Signs: 09:42 BP 121 / 73; Pulse 56; Resp 18 S; Temp 97.8(TE); Pulse Ox 95% on R/A; Weight 88.45 kg aa5 (R); Height 6 ft. 0 in. (182.88 cm) (R); Pain 10/10; 10:31 BP 125 / 73; Pulse 65; Resp 16; Pulse Ox 96% ; bp 11:30 BP 134 / 83; Pulse 65; Resp 16; Pulse Ox 95% ; bp 09:42 Body Mass Index 26.45 (88.45 kg, 182.88 cm) aa5 MDM: 10:15 Patient medically screened. jr8 11:18 Data reviewed: vital signs, nurses notes, lab test result(s), and as a result, I will jr8 discharge patient. Data interpreted: Pulse oximetry: on room air is 96 %. Interpretation: normal. Counseling: I had a detailed discussion with the patient and/or guardian regarding: the historical points, exam findings, and any diagnostic results supporting the discharge/admit diagnosis, the need for outpatient follow up, a urologist, to return to the emergency department if symptoms worsen or persist or if there are any questions or concerns that arise at home. ED course: Discussed with and patient that he needs to f/u with urology for next available appointment. No new infection noted. Will start on flomax in the meantime . 08/23 10:15 Order name: CBC with Diff; Complete Time: 10:55 8 08/23 10:15 Order name: Basic Metabolic Panel; Complete Time: 10:55 jr8 08/23 10:15 Order name: Buckner; Complete Time: 10:16 8 08/23 10:15 Order name: US Extremity Venous Unilateral Ltd; Complete Time: 11:12 8 08/23 10:15 Order name: Urine Microscopic Only; Complete Time: 10:55 jr8 08/23 10:30 Order name: Urine Dipstick--Ancillary (enter results); Complete Time: 10:55 08/23 10:15 Order name: IV; Complete Time: 10:31 jr08/23 10:15 Order name: Urine Dipstick-Ancillary (obtain specimen); Complete Time: 10:31 Administered Medications: No medications were administered Disposition: 16:11 Co-signature as Attending Physician, Raza Gore MD. rn Disposition: 08/23/18 11:20 Discharged to Home. Impression: Retention of urine. - Condition is Stable. - Discharge Instructions: Buckner Catheter Care, Adult, Acute Urinary Retention, Male. - Prescriptions for Flomax 0.4 mg Oral Capsule, Sust. Release 24 hr - take 1 capsule by ORAL route At bedtime 1/2 hour following the same meal each day; 30 capsule. - Medication Reconciliation Form, Thank You Letter, Antibiotic Education, Prescription Opioid Use form. - Follow up: Keily Quach MD; When: 2 - 3 days; Reason: Recheck today's complaints, Continuance of care, Re-evaluation by your physician. - Problem is new. - Symptoms have improved. Addendum: 08/24/2018 16:52 Addendum: Discussed with Ms. Tee and Dr. Quach. Dr. Quach was under the impression k dr that no urine was found and that the patient was not in retention. In fact there was \R\300 ml output and the patient had relieved of his abdominal pain after placement of the buckner. It appears that this was a problem of inadequate documentation and miscommunication.. Signatures: Dispatcher [employer] EDMS Reno Morejon MD MD kdr Raza Gore MD MD rn Kim Douglas RN RN aa5 Michael Fernandez PA PA jr8 Jean-Paul Horne, RN RN bp Corrections: (The following items were deleted from the chart) 08/23 11:49 11:20 08/23/2018 11:20 Discharged to Home. Impression: Retention of urine. Condition is bp Stable. Forms are Medication Reconciliation Form, Thank You Letter, Antibiotic Education, Prescription Opioid Use. Follow up: Keily Quach; When: 2 - 3 days; Reason: Recheck today's complaints, Continuance of care, Re-evaluation by your physician. Problem is new. Symptoms have improved. jr8 08/24 17:05 16:52 Addendum: Discussed with Ms. Tee and Dr. Quach. The patient's was concerned kdr that . kdr
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
[2018-08-23 11:54] VITALS: TEMP 97.8
[2018-08-23 11:56] VITALS: BP 134/83; O2SAT 95
== END 2018-08-23 11:49 | disposition home or self-care (01) ==
LOC: ER 09:35
DX: R33.9 Retention of urine, unspecified (principal); Z88.1 Allergy status to other antibiotic agents; F31.9 Bipolar disorder, unspecified; F20.0 Paranoid schizophrenia
CPT/HCPCS: 36415; 51702; 80048; 81003; 81015; 85025; 93971; 99284

== ENCOUNTER 2018-11-23 15:22 | Observation (INO) | payer OTHER, MEDICARE ==
--- OUTSIDE RECORDS SUMMARY | 2018-11-23 15:25 | XMS REPORT ---
:1940 [facility] [address] [place] [address] Dr. Haney. [address] [place] [id number] Care Team Providers Name Role Phone Unavailable Unavailable Unavailable Problems This patient has no known problems. Allergies, Adverse Reactions, Alerts This patient has no known allergies or adverse reactions. Medications This patient has no known medications.
[2018-11-23 16:37] LABS: Absolute Lymphocytes (CBC) 0.8 K/uL (0.7-4.9); Basophils % 0.7 % (0-1.3); Eosinophils % 1.5 % (0-4.4); Hematocrit 49.3 % (39.6-49.0); Lymphocytes % 13.7 % (15.3-44.8); MPV 9.7 fL (7.6-11.3); Protime INR 1.06; RBC Red Blood Cell Count 4.95 M/uL (4.33-5.43)
--- NOTE | 2018-11-23 16:48 | RAD REPORT ---
EXAM DESCRIPTION: [facility] Venous Uni Ltd11/23/2018 4:12 pm CLINICAL HISTORY: Leg pain COMPARISON: August 2018 FINDINGS: Echogenic material consistent with thrombus is present within the left common femoral and left external iliac vein. The left superficial femoral and popliteal vein appear patent Thrombus is present within the greater saphenous vein within the calf IMPRESSION: Acute thrombus within the left common femoral and left external iliac veins
[2018-11-23 16:53] LABS: ALT/SGPT 33 U/L (12-78); AST/SGOT 16 U/L (15-37); Albumin 3.3 g/dL (3.4-5.0); Alkaline Phosphatase 84 U/L (45-117); BUN Blood Urea Nitrogen 19 mg/dL (7-18); Bicarbonate 26 mmol/L (21-32); Bilirubin Direct 0.1 mg/dL (0-0.2); Bilirubin Total 0.4 mg/dL (0.2-1.0); Glucose Level 132 mg/dL (74-106); NT PRO-BNP 94 pg/mL (<450); Potassium 3.9 mmol/L (3.5-5.1); Protein, Total 6.3 g/dL (6.4-8.2); Sodium Level 143 mmol/L (136-145); Troponin (Emerg Dept Use Only) < 0.02 ng/mL (0.0-0.045)
--- NOTE | 2018-11-23 17:39 | RAD REPORT ---
EXAM DESCRIPTION: RAD - Shoulder Right 2 View - 11/23/2018 4:08 pm CLINICAL HISTORY: Right shoulder pain status post fall FINDINGS: No fracture or dislocation is seen. Osteoporosis
--- NOTE | 2018-11-23 17:39 | RAD REPORT ---
EXAM DESCRIPTION: CT - Chest For Pe Angio - 11/23/2018 5:15 pm CLINICAL HISTORY: Chest pain COMPARISON: 2016 TECHNIQUE: Dynamically enhanced axial 3 mm thick images of the chest were obtained during administra tion of <100> mL Isovue 370 IV contrast. Coronal and oblique reconstruction images were generated and reviewed. Exam utilizes a protocol for optimal evaluation of pulmonary arterial tree. Maximum intensity projections 3D imaging was utilized All CT scans are performed using dose optimization technique as appropriate and may include automated exposure control or mA/KV adjustment according to patient size. FINDINGS: A pulmonary embolus is not seen. A thoracic aortic aneurysm is not noted. 27 millimeter structure abuts the inferior aspect of the rig ht lobe of the thyroid gland without obvious change from prior exam A pleural effusion is not seen. A pericardial effusion is not seen. A lung consolidation is not present. IMPRESSION: Negative for a pulmonary embolism. 27 millimeter soft tissue structure abutting the inferior aspect of the right lobe of the thyroid gla nd may represent a thyroid nodule. Nonemergent thyroid ultrasound recommended
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
--- NOTE | 2018-11-23 18:05 | EDPHYS ---
Physician Documentation [facility] Name: Elver Tee Age: 78 yrs Sex: Male : 1940 Arrival Date: 11/23/2018 Time: 15:30 Bed 30 Private MD: ED Physician Reno Morejon HPI: 11/23 17:49 This 78 yrs old Male presents to ER via EMS with complaints of fall from kb wheelchair, shoulder pain. 17:49 Details of fall: The patient fell from seated position, out of a wheelchair. Onset: The kb symptoms/episode began/occurred just prior to arrival. Associated injuries: The patient sustained anterior aspect of right shoulder, painful injury. Severity of symptoms: At their worst the symptoms were moderate, in the emergency department the symptoms have improved, mildly. The patient has not experienced similar symptoms in the past. The patient has not recently seen a physician. Pt reports he was coming out of [employer] in his wheelchair ( was pushing) and they hit a broken piece of concrete that made him fall out of wheelchair landing on right shoulder. Denies loc, denies hitting head. Historical: - Allergies: 15:42 Bacitracin Zinc; 15:42 Neomycin Sulfate; 15:42 Polymyxin B Sulfate; - Home Meds: 15:42 clonazepam 2 mg Oral tab 2 tabs [Active]; Depakote Oral [Active]; topiramate 25 mg oral wh CSpX 1 cap nightly [Active]; paliperidone 3 mg oral tr24 1 tab nightly [Active]; - PMHx: 15:42 Bipolar disorder; Paranoid Schizophrenia; wh - Immunization history:: Adult Immunizations up to date. - Social history:: Smoking status: Patient/guardian denies using tobacco. - Ebola Screening: : Patient negative for fever greater than or equal to 101.5 degrees Fahrenheit, and additional compatible Ebola Virus Disease symptoms Patient denies exposure to infectious person. ROS: 17:47 Constitutional: Negative for fever, chills, and weight loss, Eyes: Negative for injury, kb pain, redness, and discharge, ENT: Negative for injury, pain, and discharge, Neck: Negative for injury, pain, and swelling, Cardiovascular: Negative for chest pain, palpitations, and edema, Respiratory: Negative for shortness of breath, cough, wheezing, and pleuritic chest pain, Abdomen/GI: Negative for abdominal pain, nausea, vomiting, diarrhea, and constipation, Back: Negative for injury and pain, : Negative for injury, bleeding, discharge, and swelling, Skin: Negative for injury, rash, and discoloration, Neuro: Negative for headache, weakness, numbness, tingling, and seizure. 17:47 MS/extremity: Positive for pain, tenderness, of the anterior aspect of right shoulder. Exam: 17:47 Constitutional: This is a well developed, well nourished patient who is awake, alert, kb and in no acute distress. Head/Face: Normocephalic, atraumatic. ENT: Nares patent. No nasal discharge, no septal abnormalities noted. Tympanic membranes are normal and external auditory canals are clear. Oropharynx with no redness, swelling, or masses, exudates, or evidence of obstruction, uvula midline. Mucous membranes moist. Neck: Trachea midline, no thyromegaly or masses palpated, and no cervical lymphadenopathy. Supple, full range of motion without nuchal rigidity, or vertebral point tenderness. No Meningismus. Chest/axilla: Normal chest wall appearance and motion. Nontender with no deformity. No lesions are appreciated. Cardiovascular: Regular rate and rhythm with a normal S1 and S2. No gallops, murmurs, or rubs. Normal PMI, no JVD. No pulse deficits. Respiratory: Lungs have equal breath sounds bilaterally, clear to auscultation and percussion. No rales, rhonchi or wheezes noted. No increased work of breathing, no retractions or nasal flaring. Abdomen/GI: Soft, non-tender, with normal bowel sounds. No distension or tympany. No guarding or rebound. No evidence of tenderness throughout. Skin: Warm, dry with normal turgor. Normal color with no rashes, no lesions, and no evidence of cellulitis. Neuro: Awake and alert, GCS 15, oriented to person, place, time, and situation. Cranial nerves II-XII grossly intact. Motor strength 5/5 in all extremities. Sensory grossly intact. Cerebellar exam normal. Normal gait. 17:47 Musculoskeletal/extremity: Extremities: grossly normal except: noted in the anterior aspect of right shoulder: pain, tenderness, noted in the left leg: swelling, ROM: intact in all extremities, Circulation is intact in all extremities. Sensation intact. Weight bearing: can bear weight with assistance only, uses walker. Vital Signs: 15:43 BP 114 / 78; Pulse 78; Resp 18; Temp 98; Pulse Ox 97% on R/A; wh 16:58 BP 112 / 75; Pulse 76; Resp 17; Pulse Ox 96% on R/A; wh 18:12 Weight 93.8 kg; Height 6 ft. (182.88 cm); wh 18:25 BP 137 / 82; Pulse 71; Resp 18; Pulse Ox 96% on R/A; wh 19:48 BP 115 / 78; Pulse 71; Resp 17; Pulse Ox 96% on R/A; wh 18:12 Body Mass Index 28.05 (93.80 kg, 182.88 cm) wh MDM: 15:38 Patient medically screened. kb 17:46 Data reviewed: vital signs, nurses notes. Data interpreted: Pulse oximetry: on room air kb is 96 %. Interpretation: normal. 17:48 ED course: Pt asked about swelling to left leg. States pt it has been swollen for a kb couple of weeks and he has an appt at 0730 tomorrow for an US. Also reports fatigue and shortness of breath with exertion that started a few months ago. . 18:02 Counseling: I had a detailed discussion with the patient and/or guardian regarding: the kb historical points, exam findings, and any diagnostic results supporting the discharge/admit diagnosis, lab results, radiology results, the need for further work-up and treatment in the hospital. Physician consultation: Mike Duckworth MD was contacted at 18:02, regarding admission, to the telemetry unit. patient's condition, and will see patient in inpatient room. Admission orders: after a detailed discussion of the patient's condition and case, the admit orders are written by me. 11/23 16:21 Order name: Basic Metabolic Panel; Complete Time: 16:53 kb 11/23 16:21 Order name: CBC with Diff; Complete Time: 16:41 kb 11/23 16:21 Order name: LFT's; Complete Time: 16:53 kb 11/23 16:21 Order name: Magnesium; Complete Time: 16:53 kb 11/23 16:21 Order name: NT PRO-BNP; Complete Time: 16:53 kb 11/23 16:21 Order name: PT-INR; Complete Time: 16:41 kb 11/23 15:46 Order name: Shoulder Right (2 View) XRAY; Complete Time: 18:22 kb 11/23 15:46 Order name: US Extremity Venous Unilateral Ltd; Complete Time: 17:34 kb 11/23 16:21 Order name: Troponin (emerg Dept Use Only); Complete Time: 16:53 kb 11/23 16:21 Order name: EKG; Complete Time: 16:21 kb 11/23 16:21 Order name: Cardiac monitoring; Complete Time: 16:21 kb 11/23 16:21 Order name: EKG - Nurse/Tech; Complete Time: 16:22 kb 11/23 16:54 Order name: CT Chest For PE Angio; Complete Time: 18:22 kb 11/23 16:21 Order name: IV Saline Lock; Complete Time: 16:22 kb 11/23 16:21 Order name: Labs collected and sent; Complete Time: 16:22 kb 11/23 16:21 Order name: O2 Per Protocol; Complete Time: 16:23 kb 11/23 16:21 Order name: O2 Sat Monitoring; Complete Time: 16:23 kb Administered Medications: 18:23 Drug: Lovenox 1 mg/kg Route: Sub-Q; Site: abdomen; 20:10 Follow up: Response: No adverse reaction Disposition: 11/24 07:34 Co-signature as Attending Physician, Reno Morejon MD I agree with the assessment and kdr plan of care. Disposition: 11/23/18 18:04 Hospitalization ordered by Mike Duckworth for Observation. Preliminary diagnosis is Acute embolism and thrombosis of unspecified deep veins of left lower extremity. - Bed requested for Telemetry/MedSurg (observation). - Status is Observation. - Condition is Stable. - Problem is new. - Symptoms are unchanged. UTI on Admission? No Signatures: Dispatcher [employer] Demi Zuñiga, MINHC VIVEK-Reno Whitten MD MD kdr Solis, Maria ms HabrissaTalib Corrections: (The following items were deleted from the chart) 11/23 18:53 18:04 Hospitalization Ordered by Mike Duckworth MD for Observation. Preliminary diagnosis ms is Acute embolism and thrombosis of unspecified deep veins of left lower extremity. Bed requested for Telemetry/MedSurg (observation). Status is Observation. Condition is Stable. Problem is new. Symptoms are unchanged. UTI on Admission? No. kb 20:09 18:53 11/23/2018 18:04 Hospitalization Ordered by Mike Duckworth MD for Observation. wh Preliminary diagnosis is Acute embolism and thrombosis of unspecified deep veins of left lower extremity. Bed requested for Telemetry/MedSurg (observation). Status is Observation. Condition is Stable. Problem is new. Symptoms are unchanged. UTI on Admission? No. ms
[2018-11-23] MEDS ORDERED: ENOXAPARIN 100 MG/ML SYR SQ ONE (18:35)
[2018-11-23] MEDS ORDERED: ENOXAPARIN 100 MG/ML SYR SQ SCH (21:00)
--- NOTE | 2018-11-23 21:03 | P.HP ---
Certification for Inpatient Patient admitted to: Observation With expected LOS: <2 Midnights Practitioner: I am a practitioner with admitting privileges, knowledge of patient current condition, hospital course, and medical plan of care. Services: Services provided to patient in accordance with Admission requirements found in Title 42 Section 412.3 of the Code of Federal Regulations Patient History Date of Service: 11/23/18 Reason for admission: DVT History of Present Illness: MR. LUEVANO HAS LONG STANDING PSYCHIATRIC HISTORY WHO IS GRADUALLY DEBILITATED. HE CAME TO OFFICE IN AUGUST FOR EDEMA. I ORDERED VENOUS DOPPLER THAT WAS NEGATIVE. HE WAS ADVISED MEDI OR JOBT STOCKINGS BUT HE DID NOT WEAR THEM. HE COMES TO ER TODAY. THIS MORNING NURSE CALLED AND I ASKED FOR VENOUS DOPPLER AGAIN BUT BEFORE IT WAS DONE HE WAS DYSPNEIC AND SOMEWHAT WEAKER HE WAS BROUGHT TO ER. HE HAS DVT IN L COMMON FEMORAL VEIN THAT IS NEW. HE WILL BE IN THE HOSPITAL OVERNIGHT. Allergies bacitracin [From Neosporin ([id number])] Allergy (Intermediate, Verified 21:08) Rash bacitracin zinc [From Neosporin ([id number])] Allergy (Intermediate, Verified 05/10/17 21:08) Rash neomycin sulfate [From Neosporin ([id number])] Allergy (Intermediate, Verified 05/10/17 21:08) Unknown polymyxin B [From Neosporin ([id number])] Allergy (Intermediate, Verified 21:08) Rash Polymyxin B Sulfate Allergy (Uncoded 11/07/17 23:17) Unknown Home Medications: Mirtazapine [Remeron*] 15 mg PO BEDTIME 03/08/17 Divalproex [Depakote Sprinkle*] 125 mg PO BID 05/10/17 Acetaminophen [Tylenol Extra Strength] 500 mg PO Q6H PRN #30 tablet 05/14/17 Famotidine [Pepcid*] 20 mg PO BID tab 05/14/17 Ondansetron [Zofran (Odt)*] 4 mg PO Q6H PRN 05/14/17 Rivaroxaban [Xarelto*] 10 mg PO DAILY tablet 05/14/17 clonazePAM [Klonopin*] 0.75 mg PO BEDTIME tab 05/14/17 Docusate/Senna [Senokot-S*] 2 tab PO BEDTIME #60 tab 05/26/17 Hydrocodone 5/APAP 325 [[place] 5/325*] 1 tab PO Q4H PRN #60 tab 05/26/17 Magnesium Oxide [Mag 0X*] 400 mg PO BID #60 tab 05/26/17 Quetiapine [Seroquel*] 50 mg PO BEDTIME #30 tab 05/26/17 Rivaroxaban [Xarelto*] 10 mg PO DAILY #30 tablet 05/26/17 traMADol HCL [Ultram*] 50 mg PO Q6H PRN #60 tab 05/26/17 - Past Medical/Surgical History Diabetic: No -: Bipolar -: paranoid schizophrenia -: total right knee 2009 -: right ankle fx-screws placed 7 - 8 yrs ago tx [facility] -: prostate sx -: left eye sx -: left knee sx - Social History Alcohol use: No CD- Drugs: No Caffeine use: Yes Review of Systems 10-point ROS is otherwise unremarkable General: Weakness, Malaise Cardiovascular: As per HPI Physical Examination - Vital Signs Temperature: 98 F Blood Pressure: 115/78 Pulse: 71 Respirations: 17 - Physical Exam General: Alert, Cachectic HEENT: Atraumatic, PERRLA, Mucous membr. moist/pink, EOMI, Sclerae nonicteric Neck: Supple, 2+ carotid pulse no bruit, No LAD, Without JVD or thyroid abnormality Respiratory: Clear to auscultation bilaterally, Normal air movement Cardiovascular: Edema (L MORE) Gastrointestinal: Normal bowel sounds, No tenderness Musculoskeletal: No tenderness Integumentary: No rashes Neurological: Normal gait, Normal speech, Normal strength at 5/5 x4 extr, Normal tone, Normal affect Lymphatics: No axilla or inguinal lymphadenopathy - Studies Laboratory Data (last 24 hrs) 11/23/18 15:23: PT 12.5, INR 1.06 11/23/18 15:23: WBC 6.1, Hgb 16.5, Hct 49.3 H, Plt Count 209 11/23/18 15:23: Sodium 143, Potassium 3.9, BUN 19 H, Creatinine 0.98, Glucose 132 H, Magnesium 2.0, Total Bilirubin 0.4, AST 16, ALT 33, Alkaline Phosphatase 84 Assessment and Plan - Problems (Diagnosis) (1) DVT (deep venous thrombosis) Current Visit: Yes Status: Acute Plan: LOVENOX SC. TOMORROW WE WILL CHECK IF XARELTO IS COVERED. STABLE WITH GUARDED PROGNOSIS. Qualifiers: DVT location: lower extremity Affected thrombotic vein of extremity: femoral Laterality: left (2) Debility Current Visit: Yes Status: Acute - Advance Directives Does patient have a Living Will: Yes Does patient have a Durable POA for Healthcare: Yes
[2018-11-23 21:18] VITALS: BMI 26.9
[2018-11-23 21:38] LABS: Urine Appearance CLEAR; Urine Bilirubin NEGATIVE (NEG); Urine Blood NEGATIVE (NEG); Urine Color YELLOW; Urine Glucose NEGATIVE (NEG); Urine Protein NEGATIVE (NEG); Urine Specific Gravity >=1.030 (1.005-1.030); Urine Urobilinogen 0.2 mg/dL (0.2-1.0)
[2018-11-23 21:39] LABS: Urine Microscopic Reflex ORDER UMIC
[2018-11-23 21:50] LABS: Urine Amorphous Sediment 1+ /HPF (NONE SEEN); Urine Bacteria <20 /HPF (NONE SEEN); Urine Culture Reflex Order REFLEXED; Urine RBC <5 /HPF (NONE SEEN)
[2018-11-24] MEDS ORDERED: ENOXAPARIN 100 MG/ML SYR SQ SCH (06:00)
[2018-11-24 06:27] LABS: Absolute Lymphocytes (CBC) 1.4 K/uL (0.7-4.9); Basophils % 0.9 % (0-1.3); Eosinophils % 2.5 % (0-4.4); Lymphocytes % 24.2 % (15.3-44.8); MPV 8.6 fL (7.6-11.3); RBC Red Blood Cell Count 4.55 M/uL (4.33-5.43)
[2018-11-24 06:43] LABS: BUN Blood Urea Nitrogen 16 mg/dL (7-18); Bicarbonate 27 mmol/L (21-32); Glucose Level 78 mg/dL (74-106); Potassium 3.9 mmol/L (3.5-5.1); Sodium Level 144 mmol/L (136-145)
--- NOTE | 2018-11-24 07:37 | EKG ---
Test Date: 2018-11-23 Test Time: 15:33:18 Design Analyst: COLTON MEASUREMENT RESULTS: Intervals: Rate: 82 WI: 168 QRSD: 70 QT: 348 QTc: 406 [place]: P: 44 WI: 168 QRS: 24 T: 10 INTERPRETIVE STATEMENTS: Normal sinus rhythm Normal ECG Compared to ECG 11/07/2017 21:32:57 Sinus arrhythmia no longer present Electronically Signed On 11-24-18 07:35:56 CDT by Josesito Jacob
[2018-11-24] MEDS ORDERED: PNEUMOCOCCAL VACCINE 0.5 ML IMVAC ONE (08:00)
[2018-11-24 10:51] VITALS: O2SAT 95
[2018-11-24 14:36] VITALS: BP 134/73; TEMP 98.2
--- NOTE | 2018-11-24 20:58 | P.DS ---
Admission Date: 11/23/18 Discharge Date: 11/24/18 Disposition: ROUTINE DISCHARGE Discharge Condition: FAIR Reason for Admission: DVT - Problems (1) DVT (deep venous thrombosis) Status: Acute Qualifiers: DVT location: lower extremity Affected thrombotic vein of extremity: femoral Laterality: left (2) Debility Status: Acute Brief History of Present Illness: MR. LUEVANO HAS LONG STANDING PSYCHIATRIC HISTORY WHO IS GRADUALLY DEBILITATED. HE CAME TO OFFICE IN AUGUST FOR EDEMA. I ORDERED VENOUS DOPPLER THAT WAS NEGATIVE. HE WAS ADVISED MEDI OR JOBT STOCKINGS BUT HE DID NOT WEAR THEM. HE COMES TO ER TODAY. THIS MORNING NURSE CALLED AND I ASKED FOR VENOUS DOPPLER AGAIN BUT BEFORE IT WAS DONE HE WAS DYSPNEIC AND SOMEWHAT WEAKER HE WAS BROUGHT TO ER. HE HAS DVT IN L COMMON FEMORAL VEIN THAT IS NEW. HE WILL BE IN THE HOSPITAL OVERNIGHT. MR. LUEVANO IS DOING GREAT. HE WILL TAKE XARELTO ORALLY. HE IS STABLE FOR DC Vital Signs/Physical Exam: Temp Pulse Resp BP Pulse Ox 98.2 F 55 17 134/73 96 11/24/18 12:00 11/24/18 12:00 11/24/18 12:00 11/24/18 12:00 11/24/18 12:00 Laboratory Data at Discharge: WBC 5.8 K/uL (4.3-10.9) 11/24/18 05:46 Hgb 15.0 g/dL (13.6-17.9) 11/24/18 05:46 Hct 45.0 % (39.6-49.0) 11/24/18 05:46 Plt Count 201 K/uL (152-406) 11/24/18 05:46 PT 12.5 SECONDS (9.5-12.5) 11/23/18 15:23 INR 1.06 11/23/18 15:23 Sodium 144 mmol/L (136-145) 11/24/18 05:46 Potassium 3.9 mmol/L (3.5-5.1) 11/24/18 05:46 BUN 16 mg/dL (7-18) 11/24/18 05:46 Creatinine 0.74 mg/dL (0.55-1.3) 11/24/18 05:46 Glucose 78 mg/dL (74-106) 11/24/18 05:46 Magnesium 2.0 mg/dL (1.8-2.4) 11/23/18 15:23 Total Bilirubin 0.4 mg/dL (0.2-1.0) 11/23/18 15:23 AST 16 U/L (15-37) 11/23/18 15:23 ALT 33 U/L (12-78) 11/23/18 15:23 Alkaline Phosphatase 84 U/L (45-117) 11/23/18 15:23 Home Medications: Divalproex [Depakote Sprinkle*] 250 mg PO BEDTIME 05/10/17 Paliperidone [Paliperidone ER] 1 tab PO BEDTIME 11/23/18 Topiramate [Topamax*] 1 tab PO BEDTIME 11/23/18 clonazePAM [Klonopin*] 0.25 mg PO BEDTIME 11/23/18 Rivaroxaban [Xarelto] 15 mg PO BID #40 tablet 11/24/18 New Medications: Rivaroxaban [Xarelto] 15 mg PO BID #40 tablet Diet: Regular
== END 2018-11-24 13:36 | disposition home or self-care (01) ==
LOC: ER 15:22 → ERHOLD 18:05 → 2ND 19:46
PROVIDERS: ADMIT Internal Medicine; ATTEND Internal Medicine
DX: I82.412 Acute embolism and thrombosis of left femoral vein (principal); I82.422 Acute embolism and thrombosis of left iliac vein; R53.81 Other malaise; F31.9 Bipolar disorder, unspecified; F20.0 Paranoid schizophrenia; E07.9 Disorder of thyroid, unspecified; M81.0 Age-related osteoporosis without current pathological fracture; M25.511 Pain in right shoulder; W05.0XXA Fall from non-moving wheelchair, initial encounter; Z79.899 Other long term (current) drug therapy
CPT/HCPCS: 93005; 87088; 85025 ×2; 87086; 80048 ×2; 36415; 83735; 85610; 80076; 84484; 83880; 71275; 73030; 90471; 93971; 90670; 97163; 96372; 99285; Q9967; J1650 ×2; G0378 ×2; 81003; 81015; G0009

== ENCOUNTER 2020-02-03 03:33 | Emergency (ER) | payer OTHER, MEDICARE ==
--- OUTSIDE RECORDS SUMMARY | 2020-02-03 03:35 | XMS REPORT | Continuity of Care Document ---
:1940 Author Organization [facility] t Address [address] [place] [address] Dr. Haney[address] [place] [id number] Care Team Providers Name Role Phone Unavailable Unavailable Unavailable Problems This patient has no known problems. Allergies, Adverse Reactions, Alerts This patient has no known allergies or adverse reactions. Medications This patient has no known medications. Procedures This patient has no known procedures. Results This patient has no known results.
--- OUTSIDE RECORDS SUMMARY | 2020-02-03 03:36 | XMS REPORT | Summary of Care ---
:1940 Author Organization [facility] Address [address] [place] [address] Care Team Providers Name Role Phone Pcp, Does Not Have A Primary Care Provider Reason for Visit Reason Comments Follow-up Encounter Details Date Type Department Care Team Description 01/19/2020 Office Visit [facility] Mamadou Gil tr emor (Primary Dx); Neurology-Payal Johns MD Bipolar affective disorder, current epis ode hypomanic [address], [address] [place] [phone] Allergies No Known Allergiesdocumented as of this encounter (statuses as of 01/23/2020) Medications Medication Sig Dispensed Refills Start Date End Date Status testosterone 1.25 Apply 4 Pumps to 75 g 1 12/10/2016 Active g/Actuation (1 %) gel area(s) daily. pumpIndications: Indications: Hypogonadism Hypogonadism tamsulosin 0.4 mg 24 0 08/23/2018 Active hr capsule spironolactone 25 mg 0 08/25/2018 Active tablet rivaroxaban (XARELTO) Take by mouth. 0 Active 20 mg tablet clonazePAM 0.5 mg Take 1 tablet by 90 tablet 1 08/01/2019 Active tabletIndications: mouth at bedtime. Mood disorder TOPIRAMATE 25 mg TAKE 1 TABLET BY 180 tablet 1 09/06/2019 Active tabletIndications: MOUTH TWO TIMES Essential tremor DAILY paliperidone 3 mg 24 TAKE 1 TABLET BY 90 tablet 1 09/08/2019 Active hour MOUTH ONCE DAILY tabletIndications: Mood disorder mirtazapine 7.5 mg Take 1 tablet by 90 tablet 1 11/24/2019 Active tabletIndications: mouth at bedtime. Insomnia due to medical condition divalproex ER 250 mg Take 2 tablets by 180 tablet 0 11/28/2019 Active 24 hr mouth at bedtime. tabletIndications: Mood disorder propranolol 10 mg Take 1 tablet by 60 tablet 2 12/18/2019 Active tabletIndications: mouth 2 (two) Intention tremor times daily as needed (tremor). documented as of this encounter (statuses as of 01/23/2020) Active Problems Problem Noted Date Mood disorder 06/03/2018 Hypogonadism in male 04/15/2016 Gynecomastia 07/19/2015 Elevated prolactin level 07/19/2015 documented as of this encounter (statuses as of 01/23/2020) Resolved Problems Problem Noted Date Resolved Date H/O hypogonadism 07/19/2015 04/15/2016 Paranoid schizophrenia 07/19/2015 06/03/2018 documented as of this encounter (statuses as of 01/23/2020) Social History Tobacco Use Types Packs/Day Years Used Date Never Smoker Smokeless Tobacco: Never Used Alcohol Use Drinks/Week oz/Week Comments Yes 0 Standard drinks or equivalent 0.0 occaisonal wine Sex Assigned at Date Recorded Not on file COVID-19 Exposure Response Date Recorded In the last month, have you been in contact with No / Unsure 01/19/2020 3:44 PM CDT someone who was confirmed or suspected to have Coronavirus / COVID-19? documented as of this encounter Last Filed Vital Signs Vital Sign Reading Time Taken Comments Blood Pressure 119/84 01/19/2020 3:45 PM CDT Pulse 82 01/19/2020 3:45 PM CDT Temperature 37.2 C (99 F) 01/19/2020 3:45 PM CDT Respiratory Rate - - Oxygen Saturation 96% 01/19/2020 3:45 PM CDT Inhaled Oxygen Concentration - - Weight 88.9 kg (196 lb) 01/19/2020 3:45 PM CDT Height 182.9 cm (6') 01/19/2020 3:45 PM CDT Body Mass Index 26.58 01/19/2020 3:45 PM CDT documented in this encounter Progress Notes Mamadou Gil MD - 01/19/2020 3:00 PM CDT HISTORY OF PRESENT ILLNESS: Elver Tee is a 79 year old male. Chief complaint: Medication questions in reference to tremor,mental illness treated by psychiatry. History: The patient presents with his . I had recently gotten the message, there was a questionabout topiramate. The was questioning why he should be on this medication, and I had noted thatthat medication has been used to treat tremor. Dr. Dyer the psychiatrist has utilized propranolol which seems to be helping, and there is really no reason for him to be on 2 different medications and so it was stopped. I also note that he is on mirtazapine which seems to be helping all of the patient does say that he still does have some trouble sleeping. He is still taking the paliperidone without any problems. PMH: has a past medical history of Gynecomastia, Hypogonadism in male (1999), and Mood disorder. Current Outpatient Medications: propranolol 10 mg tablet, Take 1 tablet by mouth 2 (two) times daily as needed (tremor)., Disp:60 tablet, Rfl: 2 divalproex ER 250 mg 24 hr tablet, Take 2 tablets by mouth at bedtime., Disp: 180 tablet, Rfl: 0 mirtazapine 7.5 mg tablet, Take 1 tablet by mouth at bedtime., Disp: 90 tablet, Rfl: 1 paliperidone 3 mg 24 hour tablet, TAKE 1 TABLET BY MOUTH ONCE DAILY, Disp: 90 tablet, Rfl: 1 TOPIRAMATE 25 mg tablet, TAKE 1 TABLET BY MOUTH TWO TIMES DAILY, Disp: 180 tablet, Rfl: 1 clonazePAM 0.5 mg tablet, Take 1 tablet by mouth at bedtime., Disp: 90 tablet, Rfl: 1 rivaroxaban (XARELTO) 20 mg tablet, Take by mouth., Disp: , Rfl: spironolactone 25 mg tablet, , Disp: , Rfl: tamsulosin 0.4 mg 24 hr capsule, , Disp: , Rfl: 0 testosterone 1.25 g/Actuation (1 %) gel pump, Apply 4 Pumps to area(s) daily. Indications: Hypogonadism, Disp: 75 g, Rfl: 1 Family History Problem Relation Age of Onset Thyroid NoFHx Social History Socioeconomic History Marital status: Spouse name: Not on file Number of children: Not on file Years of education: Not on file Highest education level: Not on file Occupational History Not on file Social Needs Financial resource strain: Not on file Food insecurity Worry: Not on file Inability: Not on file Transportation needs Medical: Not on file Non-medical: Not on file Tobacco Use Smoking status: Never Smoker Smokeless tobacco: Never Used Substance and Sexual Activity Alcohol use: Yes Alcohol/week: 0.0 standard drinks Comment: occaisonal wine Drug use: No Sexual activity: Not on file Lifestyle Physical activity Days per week: Not on file Minutes per session: Not on file Stress: Not on file Relationships Social connections Talks on phone: Not on file Gets together: Not on file Attends protestant service: Not on file Active member of club or organization: Not on file Attends meetings of clubs or organizations: Not on file Relationship status: Not on file Intimate partner violence Fear of current or ex partner: Not on file Emotionally abused: Not on file Physically abused: Not on file Forced sexual activity: Not on file Other Topics Concern Not on file Social History Narrative Not on file Vital signs: BP 119/84 (BP Location: Left arm, Patient Position: Sitting, BP CUFF SIZE: Adult Medium) | Pulse 82 | Temp 37.2 C (99 F) (Temporal Artery) | Ht 6' (1.829 m) | Wt 196 lb (88.9 kg) | SpO2 96% |BMI 26.58 kg/m General findings: CV regular rhythm/rate without murmur, no lung wheeze or rhonchi, absent carotid bruit R/L. The patient is cooperative today, not agitated. The right pupil reacts to light directly. Extraocular movements intact. Right eye visual field normal. Mildly increased tone present but not cogwheeling. There was a left parietal drift of the upper extremity on the left. There is dysmetria with bilateral [id number], tremor is much less noticeable than during the last visit. He also is definitely more calm. ASSESSMENT AND RECOMMENDATIONS: ICD-10-CM ICD-9-CM 1. Essential tremor G25.0 333.1 2. Bipolar affective disorder, current episode hypomanic F31.0 296.40 Impression: There is not much tremulousness at all, just a little bit with arms outstretched, suggesting that if he is still having some difficulty with falling asleep that the mirtazapine could be increased to a total of 15 mg in the evening. The did say that she was going to make that suggestion to the psychiatrist and also asked that I email him which I will do. Creation of the note was aided by utilizing a cut/paste operation of text from a Microsoft Word template created with [email or web address]. The text was dictated into the template via Dragon Naturally Speaking. documented in this encounter Plan of Treatment Date Type Specialty Care Team Description 02/02/2020 Office Visit Psychiatry Danish Dyer MD [address] [place] [address] [phone] 07/19/2020 Office Visit Neurology Mamadou Gil MD [address] [place] [address] [phone] Health Maintenance Due Date Last Done Comments DTaP,Tdap,and Td Vaccines (1 - 1957 Tdap) Zoster Recombinant Vaccine 1988 (SHINGRIX) (1 of 2) Medicare Wellness Visit 09/14/2003 PNEUMOCOCCAL VACCINES 65+ (1 of 1 09/14/2003 - PPSV23) INFLUENZA VACCINE (#1) 2020 03/13/2014, 02/24/2013, 03/12/2011, Additional history exists Depression Screening 12/28/2020 12/29/2019, 12/29/2019 documented as of this encounter Results Not on filedocumented in this encounter Visit Diagnoses Diagnosis Essential tremor - Primary Essential and other specified forms of t remor Bipolar affective disorder, current epis ode hypomanic Bipolar I disorder, most recent episode (or current) manic, unspecified documented in this encounter Insurance Payer Benefit Plan / Subscriber ID Effective Phone Address T ype Group Dates MEDICARE MEDICARE B [id number] 2003-Pre [phone] [address] [facility] [employer] sent [phone] [place] [phone] [facility] [id number] 2006-Pr [address] [facility] esent [phone] Supplement MEDICARE [place] SUPPLE[place] [id number] documented as of this encounter Advance Directives Name Relationship Healthcare Agent Communication Relationship Jimmariana Tee Spouse Health Care Agent "
--- OUTSIDE RECORDS SUMMARY | 2020-02-03 03:37 | XMS REPORT | Clinical Summary ---
:1940 Author Organization [facility] - [facility] Address [address] [place] [address] Care Team Providers Name Role Phone Pcp, Does Not Have A Primary Care Provider Allergies No Known Allergies Medications Medication Sig Dispensed Refills Start Date [...] Intention tremor times daily as needed (tremor). Active Problems Problem Noted Date Mood disorder 06/03/2018 Hypogonadism in male 04/15/2016 Gynecomastia 07/19/2015 Elevated prolactin level 07/19/2015 Resolved Problems Problem Noted Date Resolved Date H/O hypogonadism 07/19/2015 04/15/2016 Paranoid schizophrenia 07/19/2015 06/03/2018 Encounters Date Type Specialty Care Team Description 01/19/2020 Office Visit Neurology Mamadou Gil Essent ial tremor (Primary Dx); Bipolar affecti ve disorder, current episode hypomanic 01/19/2020 Travel 01/08/2020 Telephone Neurology Mamadou Gil, Rx Con cern/Question 12/29/2019 Travel 11/24/2019 Travel from Last 3 Months Family History Medical History Relation Name Comments Thyroid NoFHx Social History Tobacco Use Types Packs/Day Years [...] or suspected to have Coronavirus / COVID-19? Last Filed Vital Signs Vital Sign Reading Time Taken Comments Blood Pressure 119/84 01/19/2020 3:45 PM CDT Pulse 82 01/19/2020 3:45 PM CDT Temperature 37.2 C (99 F) 01/19/2020 3:45 PM CDT Respiratory Rate 17 12/29/2019 10:03 AM CDT Oxygen Saturation 96% 01/19/2020 3:45 PM CDT Inhaled Oxygen Concentration - - Weight 88.9 kg (196 lb) 01/19/2020 3:45 PM CDT Height 182.9 cm (6') 01/19/2020 3:45 PM CDT Body Mass Index 26.58 01/19/2020 3:45 PM CDT Plan of Treatment Date Type Specialty Care Team Description 07/19/2020 Office Visit Neurology Mamadou Gil MD [address] [place] [address] [phone] Health Maintenance Due Date Last Done Comments DTaP,Tdap,and Td Vaccines (1 - 1957 Tdap) Zoster Recombinant Vaccine 1988 (SHINGRIX) (1 of 2) Medicare Wellness Visit 09/14/2003 PNEUMOCOCCAL VACCINES 65+ (1 of 1 09/14/2003 - PPSV23) INFLUENZA VACCINE (#1) 2020 03/13/2014, 02/24/2013, 03/12/2011, Additional history exists Depression Screening 12/28/2020 12/29/2019, 12/29/2019 Results Not on filefrom Last 3 Months Insurance Payer Benefit Plan / Subscriber ID Effective Phone Address T ype Group Dates MEDICARE MEDICARE B [id number] 2003-Pre [phone] [address] [facility] RAILROAD sent [phone] [place] [phone] [facility] [id number] 2006-Pr [address] [facility] esent [address] Supplement MEDICARE [place] SUPPLEMENT [place] [id number] Advance Directives Name Relationship Healthcare Agent Communication Relationship Jimmariana Randal Spouse Health Care Agent
--- OUTSIDE RECORDS SUMMARY | 2020-02-03 03:37 | XMS REPORT | Clinical Summary ---
:1940 Author Organization [facility] - [facility] Address [address] [place] [address] Care Team Providers Name Role Phone Pcp, [...] Encounters Date Type Specialty Care Team Description 02/02/2020 Travel 02/01/2020 Travel 01/19/2020 Office Visit Neurology Mamadou Gil Essent [...] been in contact with No / Unsure 02/02/2020 9:57 AM CDT someone who was confirmed or suspected to have Coronavirus / COVID-19? Last Filed Vital Signs Vital Sign Reading Time Taken Comments Blood Pressure 114/78 02/02/2020 10:06 AM CDT Pulse 103 02/02/2020 10:06 AM CDT Temperature 37.2 C (99 F) 01/19/2020 3:45 PM CDT Respiratory Rate 19 02/02/2020 10:06 AM CDT Oxygen Saturation 96% 01/19/2020 3:45 PM CDT Inhaled Oxygen Concentration - - Weight 88.4 kg (194 lb 14.4 oz) 02/02/2020 10:06 AM CDT Height 182.9 cm (6') 01/19/2020 3:45 PM CDT Body Mass Index 26.43 01/19/2020 3:45 PM CDT Plan of Treatment Date Type Specialty Care Team Description 07/19/2020 Office Visit Neurology Mamadou Gil MD [address] [place] [address]. [place], [place] [phone] Health Maintenance Due Date Last Done Comments DTaP,Tdap,and Td Vaccines ( - 1957 Tdap) Zoster Recombinant Vaccine 1988 (SHINGRIX) (1 of 2) Medicare Wellness Visit 09/14/2003 PNEUMOCOCCAL VACCINES 65+ (1 of 1 09/14/2003 - PPSV23) INFLUENZA VACCINE (#1) 2020 03/13/2014, 02/24/2013, 03/12/2011, Additional history exists Depression Screening 02/01/2021 02/02/2020, 02/02/2020 Results Not on filefrom Last 3 Months Insurance Payer Benefit Plan / Subscriber ID Effective Phone Address T ype Group Dates MEDICARE MEDICARE B [id number] 2003-Pre [phone] [address] [facility] sent [id number] [place] [phone] [facility] [id number] 2006-Pr [address] [facility] esent [phone] Supplement MEDICARE [place] SUPPLEMENT [place] [id number] Advance Directives Name Relationship Healthcare Agent Communication Relationship Winnie Tee Spouse Health Care Agent
--- OUTSIDE RECORDS SUMMARY | 2020-02-03 03:37 | XMS REPORT | Clinical Summary ---
:1940 Author Organization [facility] - [facility] Address [address] [place] [address] Care Team Providers Name Role Phone Pcp, [...] 07/19/2020 Office Visit Neurology Mamadou Gil MD [address] [place] [address]. [place], [place] [phone] Health Maintenance Due Date [...] T ype Group Dates MEDICARE MEDICARE B [id number] 2003-Pre [phone] [address] [facility] sent [id number] [place] [address] [facility] [id number] 2006-Pr [address] [facility] esent [phone] Supplement MEDICARE [place] SUPPLEMENT [place] [id number] Advance Directives Name Relationship Healthcare Agent Communication Relationship Winnie Tee Spouse Health Care Agent
--- OUTSIDE RECORDS SUMMARY | 2020-02-03 03:37 | XMS REPORT | Summary of Care ---
:1940 Author Organization [facility] Address [address] [place] [address] Care Team Providers Name Role Phone Pcp, Does Not Have A Primary Care Provider Reason for Visit Reason Comments Follow-up Encounter Details Date Type Department Care Team Description 01/19/2020 Office Visit [facility] Mamadou Gil tr emor (Primary Dx); Neurology-Payal Johns MD Bipolar affective disorder, current epis ode hypomanic [address], [address] [place] [phone] Allergies No Known Allergiesdocumented as of [...] file Gets together: Not on file Attends alevism service: Not on file Active member of [...] the left. There is dysmetria with bilateral [id number]-fg-[id number], tremor is much less noticeable than during [...] from a Microsoft Word template created with [employer]. The text was dictated into the template via Dragon Naturally Speaking. documented in this encounter Plan of Treatment Date Type Specialty Care Team Description 02/02/2020 Office Visit Psychiatry Danish Dyer MD [address] [place] [address] [phone] 07/19/2020 Office Visit Neurology Mamadou Gil MD [address] [place] [address] [phone] Health Maintenance Due Date Last Done [...] T ype Group Dates MEDICARE MEDICARE B [id number] 2003-Pre [phone] [address] [facility] [employer] sent [phone] [place] [phone] [facility] [id number] 2006-Pr [address] [facility] esent [phone] Supplement MEDICARE [place] SUPPLEMENT [place] [id number] documented as of this encounter Advance Directives Name Relationship Healthcare Agent Communication Relationship Jimmariana Tee Spouse Health Care Agent "
--- OUTSIDE RECORDS SUMMARY | 2020-02-03 03:37 | XMS REPORT | Clinical Summary ---
:1940 Author Organization [facility] - [facility] Address [address] [place] [address] Care Team Providers Name Role Phone Pcp, [...] Encounters Date Type Specialty Care Team Description 02/01/2020 Travel 01/19/2020 Office Visit Neurology Mamadou [...] been in contact with No / Unsure 02/01/2020 9:29 AM CDT someone who was confirmed or [...] 07/19/2020 Office Visit Neurology Mamadou Gil MD [address] [place] [address]. [place] [address] [phone] Health Maintenance Due Date Last Done [...] T ype Group Dates MEDICARE MEDICARE B [id number] 2003-Pre [phone] [address] [facility] sent [phone] [id number] [place] [phone] [facility] [id number] 2006-Pr [address] [facility] esent [phone] Supplement MEDICARE [place] SUPPLEMENT [place] [id number] Advance Directives Name Relationship Healthcare Agent Communication Relationship Winnie Tee Spouse Health Care Agent
[2020-02-03 04:15] LABS: Hematocrit 44.7 % (39.6-49.0); Lymphocytes % 15.3 % (15.3-44.8); MPV 8.9 fL (7.6-11.3); RBC Red Blood Cell Count 4.49 M/uL (4.33-5.43)
[2020-02-03 04:16] LABS: Protime INR 1.25
[2020-02-03 04:33] LABS: ALT/SGPT 18 U/L (12-78); AST/SGOT 14 U/L (15-37); Albumin 3.1 g/dL (3.4-5.0); Alkaline Phosphatase 82 U/L (45-117); BUN Blood Urea Nitrogen 16 mg/dL (7-18); Bicarbonate 25 mmol/L (21-32); Bilirubin Direct 0.1 mg/dL (0-0.2); Bilirubin Total 0.6 mg/dL (0.2-1.0); CKMB Creatine Kinase MB < 1.0 ng/mL (0.3-3.6); Creatine Phosphokinase 44 U/L (39-308); Glucose Level 104 mg/dL (74-106); Lipase 28 U/L (73-393); Magnesium 1.8 mg/dL (1.8-2.4); NT PRO-BNP 107 pg/mL (<450); Potassium 4.2 mmol/L (3.5-5.1); Protein, Total 6.1 g/dL (6.4-8.2); Sodium Level 144 mmol/L (136-145); Troponin (Emerg Dept Use Only) < 0.02 ng/mL (0.0-0.045)
[2020-02-03 05:30] LABS: Urine Blood NEGATIVE (NEG); Urine Glucose NEGATIVE (NEG); Urine Protein NEGATIVE (NEG); Urine Specific Gravity 1.025 (1.005-1.030)
[2020-02-03] MEDS ORDERED: CEFTRIAXONE/SWI 1gm 1 GM/10 ML SYR ONE (05:41)
[2020-02-03] MEDS ORDERED: NA CHLORIDE 0.9% 1,000 ML ONE (05:41)
[2020-02-03 06:53] LABS: Urine Amorphous Sediment 1+ /HPF (NONE SEEN); Urine Bacteria <20 /HPF (NONE SEEN); Urine Culture Reflex Order REFLEXED; Urine RBC NONE SEEN /HPF (NONE SEEN)
--- NOTE | 2020-02-03 06:59 | ER ---
Nurse's Notes [facility] Name: Elver Tee Age: 79 yrs Sex: Male : 1940 Arrival Date: 02/03/2020 Time: 03:34 Bed 5 Private MD: Mamadou Gil; Mike Duckworth V Diagnosis: Generalized Weakness;UTI;Chronic Aphasia Presentation: 02/02 03:42 Chief complaint: EMS states: PATIENT WALKING ON THE WAY TO THE BATHROOM, HE FELT rv WEAKNESS ON BOTH LEGS, LAID HIMSELF DOWN, FACE FACING THE FLOOR. HAVE SPEECH PROBLEMS ON AND OFF FOR YEARS, WHICH IS GETTING WORSE FOR THE LAST WEEK. Coronavirus screen: At this time, the client does not indicate any symptoms associated with coronavirus-19. Ebola Screen: No symptoms or risks identified at this time. Initial Sepsis Screen: Does the patient meet any 2 criteria? No. Patient's initial sepsis screen is negative. Does the patient have a suspected source of infection? No. Patient's initial sepsis screen is negative. Risk Assessment: Do you want to hurt yourself or someone else? Patient reports no desire to harm self or others. Onset of symptoms was February 03, 2020 at 03:00. 03:42 Method Of Arrival: EMS: [facility] rv 03:42 Acuity: CUAUHTEMOC 2 rv Triage Assessment: 03:42 General: Appears comfortable, Behavior is calm, cooperative. Pain: Denies pain. EENT: rv No signs and/or symptoms were reported regarding the EENT system. Neuro: Level of Consciousness is awake, alert, obeys commands, Oriented to person, place, time, situation, Moves all extremities. Full function. Cardiovascular: Patient's skin is warm and dry. Respiratory: Airway is patent Respiratory effort is even, unlabored. Derm: Skin is intact. Musculoskeletal: Swelling present in right leg and left leg. Historical: - Allergies: 03:37 Bacitracin Zinc; sg 03:37 Neomycin Sulfate; sg 03:37 Polymyxin B Sulfate; sg - PMHx: 03:37 Bipolar disorder; Paranoid Schizophrenia; sg - Immunization history:: Adult Immunizations up to date. - Social history:: Smoking status: unknown. Screenin:46 Abuse screen: Denies threats or abuse. Denies injuries from another. Nutritional rv screening: No deficits noted. Tuberculosis screening: No symptoms or risk factors identified. VAN Screening: Arm Drift: Patient shows no arm weakness. Patient is VAN negative. Fall Risk Fall in past 12 months (25 points). Secondary diagnosis (15 points) impaired mobility, No IV (0 pts). Ambulatory Aid- Crutches/Cane/Walker (15 pts). Gait- Weak (10 pts.). Mental Status- Overestimates/Forgets Limitations (15 pts.). Total Kowalski Fall Scale indicates High Risk Score (45 or more points). Fall prevention measures have been instituted. Side Rails Up X 2 Frequent Obs/Assessments Occuring As available patient and family educated on Fall Prevention Program and Strategies. Assessment: 03:36 Reassessment: pt wishes to be updated on dispo, can be reached at [phone] for genoveva Tee. 04:14 Reassessment: patient in CT now. mg2 05:30 Reassessment: No changes from previously documented assessment. Patient and/or family mg2 updated on plan of care and expected duration. Pain level reassessed. 05:54 Reassessment: UPDATED THE ON THE PHONE REGARDING THE PATIENT'S SITUATION. REFERRED rv TO DR OLIVAREZ. Neuro: Level of Consciousness is awake, alert, obeys commands, Oriented to person, place, time, situation. 06:03 Reassessment: PATIENT WAS ABLE TO AMBULATE, WITH WALKER, ON HIS OWN. Neuro: Level of rv Consciousness is awake, alert, obeys commands, Oriented to person, place, time, situation, Moves all extremities. Full function. Respiratory: Airway is patent Respiratory effort is even, unlabored. 06:05 Reassessment: PATIENT'S CONTACT NUMBER [id number]. rv 07:05 Reassessment: Pt resting in bed with eyes closed, pt easy to awaken to verbal stimuli. aa5 Intermittent aphasia noted, no arm/leg drift noted, no facial droop noted, clinical operations consultant equal, A\T\O x 4, clear speech noted. Equal unlabored respirations, skin is pink/warm/dry. Pt states no complaints at this time. Pt notified of plan to d/c home, pt verbalizes understanding. Awaiting pt's for ride home. . 07:30 Reassessment: Awaiting pt's for ride home. . aa5 07:55 Reassessment: Patient is alert, oriented x 3, equal unlabored respirations, skin aa5 warm/dry/pink. Vital Signs: 03:42 BP 105 / 78; Pulse 62; Resp 16; Temp 97.8; Pulse Ox 98% ; Weight 77.11 kg; rv 04:45 BP 104 / 71; Pulse 57; Resp 16; Pulse Ox 97% on R/A; rv 05:30 BP 111 / 72; Pulse 60; Resp 18; Pulse Ox 98% on R/A; mg2 06:36 BP 101 / 60; Pulse 67; Resp 18; Pulse Ox 96% on R/A; rv 07:05 BP 112 / 70; Pulse 60; Resp 18 S; Temp 98.0(TE); Pulse Ox 98% on R/A; Pain 0/10; aa5 NIH Stroke Scale Scores: 03:46 NIHSS Score: 2 rv ED Course: 03:34 Patient arrived in ED. sg 03:34 Jarred Olivarez MD is Attending Physician. [facility] 03:35 Mike Duckworth MD is Private Physician. sg 03:39 [facility]rolog[facility], [facility] is Private Physician. sg 03:42 Jose Alba RN is Primary Nurse. rv 03:42 Arm band placed on right wrist. Patient placed in the treatment room, on a stretcher, rv Patient notified of wait time. 03:45 Mamadou Gil is Private Physician. sg 03:45 Triage completed. rv 03:52 Patient has correct armband on for positive identification. Bed in low position. Call rv light in reach. Side rails up X2. desk monitor on. Pulse ox on. NIBP on. 03:55 No provider procedures requiring assistance completed. Maintain EMS IV. Dressing mg2 intact. Good blood return noted. Site clean \T\ dry. Gauge \T\ site: g18 \T\ LAC. 04:09 CT Head Brain wo Cont In Process Unspecified. EDMS 04:12 Chest Single View XRAY In Process Unspecified. EDMS 07:30 IV discontinued, intact, bleeding controlled, No redness/swelling at site. Pressure aa5 dressing applied. Administered Medications: 05:32 Drug: NS 0.9% 1000 ml Route: IV; Rate: 1000 ml; Site: left antecubital; mg2 05:32 Drug: Rocephin - (cefTRIAXone) 1 grams Route: IVPB; Infused Over: 30 mins; Site: left mg2 antecubital; Outcome: 06:59 Discharge ordered by MD. werner 07:55 Discharged to home via wheelchair, with significant other. [facility] 07:55 Condition: stable 07:55 Discharge instructions given to patient, significant other, Instructed on discharge instructions, follow up and referral plans. medication usage, Demonstrated understanding of instructions, follow-up care, medications, Prescriptions given X 1. 08:01 Patient left the ED. aa5 NIH Stroke Scale - NIH Stroke Score Date: 02/03/2020 Time: 03:46 Total Score = 2 1a. Level of Consciousness (LOC) - 0(Alert) 1b. Level of Consciousness (LOC) (Year \T\ Age) - 0(Both) 1c. LOC Commands (Open \T\ Closes Eyes/Aquatics Coordinator) - 0(Both) 2. Best Gaze (Lateral Gaze Paresis) - 0(Normal) 3. Visual Field Loss - 0(No visual loss) 4. Facial Palsy - 0(Normal) 5a. Left Arm: Motor (10-second hold) - 0(No drift) 5b. Right Arm: Motor (10-second hold) - 0(No drift) 6a. Left Leg: Motor (5-second hold - always test supine) - 0(No drift) 6b. Right Leg: Motor (5-second hold - always test supine) - 0(No drift) 7. Limb Ataxia (finger/nose \T\ heel/wylie - test with eyes open) - 0(Absent) 8. Sensory Loss (pinprick arms/legs/face) - 0(Normal) 9. Best Language: Aphasia (description/naming/reading) - 2(Severe aphasia) 10. Dysarthria (speech clarity - read or repeat words) - 0(Normal) 11. Extinction and Inattention (visual/tactile/auditory/spatial/personal) - 0(No abnormality) Initials: rv Signatures: Dispatcher [employer] Tj Fitzpatrick RN RN sg Kim Douglas RN RN aa5 Dima Barrera RN RN mg2 Jose Alba RN RN rv Holmes, Maurice, MD MD 7 Corrections: (The following items were deleted from the chart) 08:49 07:05 Reassessment: Pt resting in bed with eyes closed, pt easy to awaken to aa5 verbal stimuli. Speech is clear with intermittent aphasia noted, clinical operations consultant equal, no arm/leg drift noted, no facial droop noted. Pt states no complaints at this time. Pt notified of plan to d/c home, pt verbalizes understanding. Awaiting pt's for ride home. . aa5
--- NOTE | 2020-02-03 07:00 | EDPHYS ---
Physician Documentation [facility] Name: Elver Tee Age: 79 yrs Sex: Male : 1940 Arrival Date: 02/03/2020 Time: 03:34 Bed 5 Private MD: Mamadou Gil; Mike Duckworth V ED Physician Jarred Olivarez HPI: 02/02 04:00 This 79 yrs old Male presents to ER via EMS with complaints of General mh7 Weakness. 04:00 The patient's problem is reported as weakness, in the right lower extremity, in the mh7 left lower extremity. 04:10 Onset: The symptoms/episode began/occurred at an unknown time. Duration: This was a mh7 single incident. Context: the episode(s) was witnessed, by no one, the downtime is unknown, symptoms became apparent at an unknown time, occurred at home, occurred while the patient was walking, Possible contributing factors include:. The symptoms are alleviated by nothing. The symptoms are aggravated by walking. Associated signs and symptoms: Pertinent negatives: abdominal pain, agitation, ataxia, blurred vision, chest pain, combativeness, confusion, diaphoresis, diarrhea, dizziness, headache, lightheadedness, nausea, numbness, palpitations, seizure, shortness of breath, tingling. Severity of symptoms: At their worst the symptoms were moderate today, in the emergency department the symptoms have improved moderately. Patient states that when he went to bathroom his legs felt weak so he laid on the floor. He has had speech problems for years but states that speech problems have worsened over the past week or so. He denies any injuries, headache, chest pain, abdominal pain, SOB, fever, nausea, vomiting, diarrhea, numbness/tingling.. Historical: - Allergies: 03:37 Bacitracin Zinc; sg 03:37 Neomycin Sulfate; sg 03:37 Polymyxin B Sulfate; sg - PMHx: 03:37 Bipolar disorder; Paranoid Schizophrenia; sg - Immunization history:: Adult Immunizations up to date. - Social history:: Smoking status: unknown. ROS: 04:10 Constitutional: Negative for fever, chills, and weight loss, Eyes: Negative for injury, mh7 pain, redness, and discharge, ENT: Negative for injury, pain, and discharge, Neck: Negative for injury, pain, and swelling, Cardiovascular: Negative for chest pain, palpitations, and edema, Abdomen/GI: Negative for abdominal pain, nausea, vomiting, diarrhea, and constipation. 04:10 Back: Negative for injury and pain, : Negative for injury, bleeding, discharge, and swelling, Skin: Negative for injury, rash, and discoloration, Psych: Negative for depression, anxiety, suicide ideation, homicidal ideation, and hallucinations, Allergy/Immunology: Negative for hives, rash, and allergies, Endocrine: Negative for neck swelling, polydipsia, polyuria, polyphagia, and marked weight changes, Hematologic/Lymphatic: Negative for swollen nodes, abnormal bleeding, and unusual bruising. 04:10 Respiratory: Positive for cough, with no reported sputum. Exam: 04:17 Constitutional: This is a well developed, well nourished patient who is awake, alert, mh7 and in no acute distress. Head/Face: Normocephalic, atraumatic. Neck: Trachea midline, no thyromegaly or masses palpated, and no cervical lymphadenopathy. Supple, full range of motion without nuchal rigidity, or vertebral point tenderness. No Meningismus. Chest/axilla: Normal chest wall appearance and motion. Nontender with no deformity. No lesions are appreciated. Cardiovascular: Regular rate and rhythm with a normal S1 and S2. No gallops, murmurs, or rubs. Normal PMI, no JVD. No pulse deficits. Respiratory: Lungs have equal breath sounds bilaterally, clear to auscultation and percussion. No rales, rhonchi or wheezes noted. No increased work of breathing, no retractions or nasal flaring. Abdomen/GI: Soft, non-tender, with normal bowel sounds. No distension or tympany. No guarding or rebound. No evidence of tenderness throughout. Back: No spinal tenderness. No costovertebral tenderness. Full range of motion. Skin: Warm, dry with normal turgor. Normal color with no rashes, no lesions, and no evidence of cellulitis. 04:17 Neuro: Awake and alert, GCS 15, oriented to person, place, time, and situation. Cranial nerves II-XII grossly intact. Motor strength 5/5 in all extremities. Sensory grossly intact. Cerebellar exam normal. Normal gait. Psych: Awake, alert, with orientation to person, place and time. Behavior, mood, and affect are within normal limits. 04:17 Musculoskeletal/extremity: Extremities: all appear grossly normal, with no appreciated pain with palpation, ROM: intact in all extremities, Circulation is intact in all extremities. Pulses: are normal with no appreciated deficits, Perfusion: the patient is normally perfused throughout, Perfusion: the extremity is normally perfused throughout, Calf tenderness, is absent, Edema, bilateral pedal, Sensation intact. 07:01 Radiologist reports: Moderate atrophy and chronic white matter changes. 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 No acute intracranial finding. 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 07:20 ECG was reviewed by the Attending Physician. [facility] Vital Signs: 03:42 BP 105 / 78; Pulse 62; Resp 16; Temp 97.8; Pulse Ox 98% ; Weight 77.11 kg; rv 04:45 BP 104 / 71; Pulse 57; Resp 16; Pulse Ox 97% on R/A; rv 05:30 BP 111 / 72; Pulse 60; Resp 18; Pulse Ox 98% on R/A; mg2 06:36 BP 101 / 60; Pulse 67; Resp 18; Pulse Ox 96% on R/A; rv 07:05 BP 112 / 70; Pulse 60; Resp 18 S; Temp 98.0(TE); Pulse Ox 98% on R/A; Pain 0/10; aa5 NIH Stroke Scale Scores: 03:46 NIHSS Score: 2 rv MDM: 03:59 Patient medically screened. [facility] 06:55 Differential diagnosis: CVA, TIA, Dementia, Alzheimer disease, metabolic disorder, drug 7 effects, UTI, Generalized weakness. Data reviewed: vital signs, nurses notes, EMS record, old medical records, lab test result(s), cardiac enzymes, CBC, electrolytes, urinalysis, EKG, radiologic studies, CT scan, plain films. Data interpreted: Pulse oximetry: on room air is 97 %. Interpretation: normal. Counseling: I had a detailed discussion with the patient and/or guardian regarding: the historical points, exam findings, and any diagnostic results supporting the discharge/admit diagnosis, lab results, radiology results, the need for outpatient follow up, to return to the emergency department if symptoms worsen or persist or if there are any questions or concerns that arise at home. Response to treatment: the patient's symptoms have resolved after treatment, the patient's blood pressure is in an acceptable range, mental status has returned to baseline, the patient no longer shows bradycardia, the patient is not short of breath, the patient is not tachycardic, the patient's pain is gone, the patient's temperature has normalized. 07:01 ED course: NAD, VSS, no focal neurological deficits. He is awake, alert, and oriented x mh7 3. Patient ambulated with walker without difficulty. Patient's stated that aphasia present for years and he saw his doctor a few days ago about it. She also stated that the last time patient had this issue it was due to a UTI. Discussed all test results and findings with the patient and declines any further care and evaluation and requests to be discharged from the ED. He will follow up with his doctor but agreed to return to the ED if worsening of symptoms or other concerns.. 02/02 03:47 Order name: Basic Metabolic Panel; Complete Time: 04:42 7 02/02 03:47 Order name: CBC with Diff; Complete Time: 04:42 7 02/02 03:47 Order name: Ckmb; Complete Time: 04:42 7 02/02 03:47 Order name: CPK; Complete Time: 04:42 7 02/02 03:47 Order name: Hepatic Function; Complete Time: 04:42 7 02/02 03:47 Order name: Lipase; Complete Time: 04:42 7 02/02 03:47 Order name: Magnesium; Complete Time: 04:42 7 02/02 03:47 Order name: Protime (+inr); Complete Time: 04:42 7 02/02 03:47 Order name: Ptt, Activated; Complete Time: 04:42 7 02/02 03:47 Order name: Troponin (emerg Dept Use Only); Complete Time: 04:42 7 02/02 03:47 Order name: PROBNP; Complete Time: 04:42 7 02/02 04:04 Order name: Glucose, Ancillary Testing; Complete Time: 04:42 EDMS 02/02 05:26 Order name: Urine Microscopic Only; Complete Time: 07:46 sg 02/02 05:26 Order name: Urine Culture sg 02/02 03:47 Order name: EKG; Complete Time: 03:48 mh7 02/02 03:47 Order name: Cardiac monitoring; Complete Time: 03:54 mh7 /19 03:47 Order name: EKG - Nurse/Tech; Complete Time: 03:54 [facility] 02/02 03:47 Order name: IV Saline Lock; Complete Time: 03:54 02/02 03:47 Order name: Labs collected and sent; Complete Time: 03:54 02/02 03:47 Order name: NPO; Complete Time: 03:54 [facility] 02/02 03:47 Order name: O2 Per Protocol; Complete Time: 03:54 02/02 03:47 Order name: O2 Sat Monitoring; Complete Time: 03:54 [facility] 02/02 03:47 Order name: Urine Dipstick-Ancillary (obtain specimen); Complete Time: 05:30 [facility] 02/02 03:47 Order name: Chest Single View XRAY [facility] 02/02 03:47 Order name: CT Head Brain wo Cont [facility] 02/02 05:27 Order name: Urine Dipstick--Ancillary (enter results); Complete Time: 05:48 tt3 EC:20 Rate is 75 beats/min. Rhythm is regular, Normal Sinus Rhythm with PACs. QRS [place] is mh7 Normal. OK interval is normal. QRS interval is normal. QT interval is normal. No Q waves. T waves are Normal. No ST changes noted. Clinical impression: Normal ECG. Administered Medications: 05:32 Drug: NS 0.9% 1000 ml Route: IV; Rate: 1000 ml; Site: left antecubital; mg2 05:32 Drug: Rocephin - (cefTRIAXone) 1 grams Route: IVPB; Infused Over: 30 mins; Site: left [facility] antecubital; Disposition: 02/03/20 06:59 Discharged to Home. Impression: Generalized Weakness, UTI, Chronic Aphasia. - Condition is Stable. - Discharge Instructions: Urinary Tract Infection, Adult, Gamh-yu-Ersw, Weakness, Kebn-fa-Qnaw. - Prescriptions for Keflex 500 mg Oral Capsule - take 1 capsule by ORAL route every 12 hours for 7 days; 14 capsule. - Medication Reconciliation Form, Thank You Letter, Antibiotic Education, Prescription Opioid Use form. - Follow up: Private Physician; When: 1 - 2 days; Reason: Worsening of condition, Recheck today's complaints, Continuance of care, Re-evaluation by your physician. - Problem is chronic. - Symptoms have improved. NIH Stroke Scale - NIH Stroke Score Date: 02/03/2020 Time: 03:46 Total Score = 2 1a. Level of Consciousness (LOC) - 0(Alert) 1b. Level of Consciousness (LOC) (Year \T\ Age) - 0(Both) 1c. LOC Commands (Open \T\ Closes Eyes/Civil Engineering Professor) - 0(Both) 2. Best Gaze (Lateral Gaze Paresis) - 0(Normal) 3. Visual Field Loss - 0(No visual loss) 4. Facial Palsy - 0(Normal) 5a. Left Arm: Motor (10-second hold) - 0(No drift) 5b. Right Arm: Motor (10-second hold) - 0(No drift) 6a. Left Leg: Motor (5-second hold - always test supine) - 0(No drift) 6b. Right Leg: Motor (5-second hold - always test supine) - 0(No drift) 7. Limb Ataxia (finger/nose \T\ heel/wylie - test with eyes open) - 0(Absent) 8. Sensory Loss (pinprick arms/legs/face) - 0(Normal) 9. Best Language: Aphasia (description/naming/reading) - 2(Severe aphasia) 10. Dysarthria (speech clarity - read or repeat words) - 0(Normal) 11. Extinction and Inattention (visual/tactile/auditory/spatial/personal) - 0(No abnormality) Initials: rv Signatures: Dispatcher [employer] EDMS Tj Story RN RN Kim Douglas RN RN aa5 Dima Barrera RN RN [facility] Jose Alba RN RN Jarred Olivarez MD MD 7 Corrections: (The following items were deleted from the chart) 08:01 06:59 02/03/2020 06:59 Discharged to Home. Impression: Generalized Weakness; aa5 UTI; Chronic Aphasia. Condition is Stable. Forms are Medication Reconciliation Form, Thank You Letter, Antibiotic Education, Prescription Opioid Use. Follow up: Private Physician; When: 1 - 2 days; Reason: Worsening of condition, Recheck today's complaints, Continuance of care, Re-evaluation by your physician. Problem is chronic. Symptoms have improved. 7
[2020-02-03 08:06] VITALS: TEMP 97.8
[2020-02-03 08:10] VITALS: BP 101/60; O2SAT 96
--- NOTE | 2020-02-03 08:26 | RAD REPORT ---
EXAM DESCRIPTION: Marissa Single View02/03/2020 4:12 am CLINICAL HISTORY: Chest pain COMPARISON: 2017 FINDINGS: The lungs appear clear of acute infiltrate. The heart is normal size IMPRESSION: No acute abnormalities displayed
--- NOTE | 2020-02-03 10:46 | RAD REPORT ---
EXAM DESCRIPTION: CT - Head Brain Wo Cont - 02/03/2020 6:19 am CLINICAL HISTORY: WEAKNESS COMPARISON: None. TECHNIQUE: Axial unenhanced CT imaging of the brain. Reformatted coronal and sagittal images obtaine d. This examination was performed according to our departmental dose optimization program, which include s automated exposure control, adjustment of the mA and/or kV according to patient size and/or use of iterative reconstruction technique. FINDINGS: There is a broad area of lateral right frontal encephalomalacia due to remote infarct. A s mall hypodensity within the right occipital lobe and also due to remote small infarct. There is moder ately decreased white matter attenuation due to chronic microvascular ischemic change. Mildly promine nt sulci and ventricles due to cortical volume loss. There is no intraparenchymal or extra-axial blee d. No mass or midline shift. No evidence of acute major territorial infarction. Normal cerebellum and vermis. Fourth ventricle is midline. Prepontine cisterns are not effaced. Erica l sella contents. The left globe is atrophic with a scleral band. Right globe appears intact. Remaining intraorbital co ntents are unremarkable. Paranasal sinuses are clear. Mastoid air cells are well aerated. Intact skul l base and calvarium. Right superior frontal scalp small area soft tissue thickening is of fat densit y compatible with lipoma. IMPRESSION: 1. Moderate atrophy and chronic white matter changes. 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 No intracranial acute finding. 2. 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 Electronically signed by: Laure Jones DO 02/03/2020 4:43 AM CDT Due to temporary technical issues with the PACS/Fluency reporting system, reports are being signed by the in house radiologist without review as a courtesy to ensure prompt reporting. The interpreting r adiologist is fully responsible for the content of the report.
== END 2020-02-03 08:01 | disposition home or self-care (01) ==
LOC: ER 03:33
DX: N39.0 Urinary tract infection, site not specified (principal); R47.01 Aphasia; Z88.1 Allergy status to other antibiotic agents; Z88.3 Allergy status to other anti-infective agents; Z88.8 Allergy status to other drugs, medicaments and biological substances
CPT/HCPCS: 93005; 87088; 85025; 87086; 80048; 36415; 83735; 82550; 85610; 82947; 80076; 85730; 84484; 82553; 83690; 83880; 70450; 71045; 96374; 99284; J0696; J7030; 81003; 81015

== ENCOUNTER 2020-08-06 11:24 | Emergency (ER) | payer OTHER, MEDICARE ==
--- OUTSIDE RECORDS SUMMARY | 2020-08-06 11:28 | XMS REPORT | Continuity of Care Document ---
:1940 Author Organization [facility] t Address [address] [place] [address] Care Team Providers Name Role Phone Andreas Gil MD Attending Clinician Problems This patient has no known problems. Allergies, Adverse Reactions, Alerts This patient has no known allergies or adverse reactions. Medications This patient has no known medications. Procedures This patient has no known procedures. Encounters Start End Encounter Admission Attending Care Care Encounter Source Date/Time Date/Time Type Type Clinicians Facility Department ID 2020-07-26 2020-07-26 Telephone LETI Gil [id number] 00:00:00 00:00:00 Mamadou BRIDGES [id number] [facility] [id number] 2020-07-19 2020-07-19 Office ALHAJI Gil [id number] [facility] 14:59:36 16:04:15 Visit Mamadou Moe [id number] [place] [id number] [facility] [phone] [facility] 0[address] Building Results This patient has no known results.
[2020-08-06 11:55] LABS: Absolute Lymphocytes (CBC) 0.9 K/uL (0.7-4.9); Basophils % 0.7 % (0-1.3); Lymphocytes % 14.4 % (15.3-44.8); MPV 9.2 fL (7.6-11.3); RBC Red Blood Cell Count 4.84 M/uL (4.33-5.43)
[2020-08-06 12:19] LABS: BUN Blood Urea Nitrogen 16 mg/dL (7-18); Bicarbonate 31 mmol/L (21-32); Glucose Level 89 mg/dL (74-106); NT PRO-BNP 120 pg/mL (<450); Potassium 3.9 mmol/L (3.5-5.1); Sodium Level 143 mmol/L (136-145); Troponin (Emerg Dept Use Only) < 0.02 ng/mL (0.0-0.045)
--- NOTE | 2020-08-06 12:38 | RAD REPORT ---
EXAM DESCRIPTION: RAD - Chest Single View - 08/06/2020 12:20 pm CLINICAL HISTORY: COUGH Chest pain. COMPARISON: Chest Single View dated 02/03/2020; Chest Pa And Lat (2 Views) dated 11/18/2017; Chest Pa A nd Lat (2 Views) dated 11/07/2017; Chest Single View dated 05/10/2017 FINDINGS: Portable technique limits examination quality. The lungs are grossly clear. The heart is normal in size. No displaced fractures. IMPRESSION: No acute intrathoracic process suspected.
[2020-08-06 13:18] LABS: SARS-COV-2 RT PCR NEGATIVE (NEGATIVE)
--- NOTE | 2020-08-06 13:24 | ER ---
Nurse's Notes [facility] Name: Elver Tee Age: 79 yrs Sex: Male : 1940 Arrival Date: 08/06/2020 Time: 11:26 Bed 14 Private MD: Diagnosis: Person with feared health complaint in whom no diagnosis is made Presentation: 08/06 11:27 Chief complaint: EMS states: Recently discharged from inpatient rehab, c/o cough, hb burning pain in throat and lungs, and fatigue x 1 week. Coronavirus screen: Client presents with at least one sign or symptom that may indicate coronavirus-19. Standard/surgical mask placed on the client. Provider contacted for isolation considerations. Ebola Screen: No symptoms or risks identified at this time. Initial Sepsis Screen: Does the patient meet any 2 criteria? No. Patient's initial sepsis screen is negative. Does the patient have a suspected source of infection? No. Patient's initial sepsis screen is negative. Risk Assessment: Do you want to hurt yourself or someone else? Patient reports no desire to harm self or others. Onset of symptoms was July 30, 2020. 11:27 Method Of Arrival: EMS: [facility] hb 11:27 Acuity: CUAUHTEMOC 3 hb Historical: - Allergies: 11:28 Bacitracin Zinc; ll1 11:28 Neomycin Sulfate; ll1 11:28 Polymyxin B Sulfate; ll1 - PMHx: 11:28 Bipolar disorder; Paranoid Schizophrenia; ll1 - Immunization history:: Adult Immunizations up to date. - Social history:: Smoking status: Patient denies any tobacco usage or history of. - Family history:: not pertinent. - Hospitalizations: : No recent hospitalization is reported. Screenin:29 Abuse screen: Denies threats or abuse. Nutritional screening: No deficits noted. ll1 Tuberculosis screening: No symptoms or risk factors identified. Fall Risk IV access (20 points). Gait- Weak (10 pts.). Total Kowalski Fall Scale indicates Low Risk Score (25-44 pts). Fall prevention measures have been instituted. Placed close to Nursing Station Frequent Obs/Assesments occuring As available Patient and Family Educated on Fall Prevention Program and strategies. Assessment: 11:37 General: Appears ill, Behavior is calm, cooperative, appropriate for age. Pain: ll1 Complains of pain in chest/lungs Quality of pain is described as aching, Aggravated by cough/deep breath. Neuro: No deficits noted. Cardiovascular: No deficits noted. Respiratory: Reports cough that is pain with cough Airway is patent Trachea midline Respiratory effort is even, unlabored, Respiratory pattern is regular, symmetrical, the patient has mild shortness of breath. GI: No deficits noted. EENT: Reports nasal congestion. Musculoskeletal: Circulation, motion, and sensation intact. Capillary refill < 3 seconds, Range of motion: intact in all extremities, Reports body aches/fatigue. 12:04 General: Appears in no apparent distress. comfortable, Behavior is calm, cooperative. vg1 Pain: Denies pain. Neuro: Level of Consciousness is awake, alert, obeys commands, Oriented to person, place, time, situation. Cardiovascular: Patient's skin is warm and dry. Respiratory: Airway is patent Respiratory effort is even, unlabored. GI: No signs and/or symptoms were reported involving the gastrointestinal system. : No signs and/or symptoms were reported regarding the genitourinary system. EENT: Reports sore throat. Derm: Skin is pink, warm \T\ dry. Musculoskeletal: Circulation, motion, and sensation intact. Vital Signs: 11:27 BP 123 / 95; Pulse 50; Resp 16; Temp 98.4; Pulse Ox 97% on R/A; Pain 8/10; hb 12:05 BP 118 / 78; Pulse 52; Resp 18; Pulse Ox 95% on R/A; vg1 ED Course: 11:26 Patient arrived in ED. hb 11:27 Raza Gore MD is Attending Physician. rn 11:28 Robert Saeed RN is Primary Nurse. ll1 11:28 Arm band placed on Patient placed in an exam room, on a stretcher. ll1 11:29 Triage completed. hb 11:38 Patient has correct armband on for positive identification. Bed in low position. Call ll1 light in reach. Side rails up X2. Pulse ox on. NIBP on. 11:45 Initial lab(s) drawn, by me, sent to lab. First set of blood cultures drawn. Inserted kj1 saline lock: 22 gauge in right forearm, using aseptic technique. Blood collected. 12:05 Second set of blood cultures drawn by me. kj1 12:20 XRAY Chest (1 view) In Process Unspecified. EDMS 13:38 No provider procedures requiring assistance completed. IV discontinued, intact, vg1 bleeding controlled, No redness/swelling at site. Pressure dressing applied. Administered Medications: No medications were administered Outcome: 13:23 Discharge ordered by . rn 13:38 Discharged to home via wheelchair. vg1 13:38 Condition: stable 13:38 Discharge instructions given to patient, Instructed on discharge instructions, follow up and referral plans. medication usage, Demonstrated understanding of instructions, follow-up care, medications, Prescriptions given X 1. 14:02 Patient left the ED. vg1 Signatures: Dispatcher [employer] EDMA Raza Gore MD MD rn Baxter, Heather RN Alondra Frazier kj1 Sonia Arriola RN RN vg1 Robert Saeed RN RN ll1 Corrections: (The following items were deleted from the chart) 12:06 12:05 Second set of blood cultures drawn kj1 kj1
--- NOTE | 2020-08-06 13:24 | EDPHYS ---
Physician Documentation [facility] Name: Elver Tee Age: 79 yrs Sex: Male : 1940 Arrival Date: 08/06/2020 Time: 11:26 Bed 14 Private MD: ED Physician Raza Gore HPI: 08/06 11:48 This 79 yrs old Male presents to ER via EMS with complaints of Cough. rn 11:48 The patient or guardian reports cough, described as mild, with no sputum. Onset: The rn symptoms/episode began/occurred this morning. Severity of symptoms: At their worst the symptoms were mild, in the emergency department the symptoms have improved. Modifying factors: The symptoms are alleviated by nothing, the symptoms are aggravated by nothing. Associated signs and symptoms: Pertinent positives: rhinorrhea, Pertinent negatives: chest pain, diarrhea, ear ache, fever. The patient has not experienced similar symptoms in the past. The patient has not recently seen a physician. Per EMS, family reported 1 week of fatigue, cough. Patient reported burning sensation of throat and lungs. Better after given oxygen by EMS. No other intervention by EMS. No trauma. No hemoptysis. . Historical: - Allergies: 11:28 Bacitracin Zinc; ll1 11:28 Neomycin Sulfate; ll1 11:28 Polymyxin B Sulfate; ll1 - PMHx: 11:28 Bipolar disorder; Paranoid Schizophrenia; ll1 - Immunization history:: Adult Immunizations up to date. - Social history:: Smoking status: Patient denies any tobacco usage or history of. - Family history:: not pertinent. - Hospitalizations: : No recent hospitalization is reported. ROS: 11:48 Constitutional: Negative for fever, chills, and weight loss, Eyes: Negative for injury, rn pain, redness, and discharge, Neck: Negative for injury, pain, and swelling, Cardiovascular: Negative for chest pain, palpitations, and edema, Respiratory: + cough and "lung burning" Abdomen/GI: Negative for abdominal pain, nausea, vomiting, diarrhea, and constipation, Back: Negative for injury and pain, : Negative for injury, bleeding, discharge, and swelling, MS/Extremity: Negative for injury and deformity, Skin: Negative for injury, rash, and discoloration, Neuro: Negative for headache,numbness, tingling, and seizure. Exam: 11:48 Constitutional: This is a well developed, well nourished patient who is awake, alert, rn and in no acute distress. Sitting upright, joking Head/Face: Normocephalic, atraumatic. ENT: dry MM Cardiovascular: Bradycardic, regular Respiratory: Coarse bilateral breath sounds. No increased work of breathing, no retractions or nasal flaring. Abdomen/GI: soft, non-tender Skin: Warm, dry MS/ Extremity: Pulses equal, no cyanosis. 2+ pitting edema bilateral lower ext. Neuro: Awake and alert, GCS 15, oriented to person, place, and situation. Vital Signs: 11:27 BP 123 / 95; Pulse 50; Resp 16; Temp 98.4; Pulse Ox 97% on R/A; Pain 8/10; hb 12:05 BP 118 / 78; Pulse 52; Resp 18; Pulse Ox 95% on R/A; vg1 MDM: 11:27 Patient medically screened. rn 13:22 Differential Diagnosis: Bronchitis Influenza Upper Respiratory Infection Allergic rn Rhinitis Viral Syndrome Pneumonia Other COVID, CHF, pneumonia. Data reviewed: vital signs, nurses notes, lab test result(s), radiologic studies, plain films, and as a result, I will discharge patient. Counseling: I had a detailed discussion with the patient and/or guardian regarding: the historical points, exam findings, and any diagnostic results supporting the discharge/admit diagnosis, lab results, radiology results, the need for outpatient follow up, to return to the emergency department if symptoms worsen or persist or if there are any questions or concerns that arise at home. Response to treatment: the patient's symptoms have resolved after treatment, the patient's condition has returned to base line, the patient is now symptom free, and as a result, I will discharge patient. Special discussion: I discussed with the patient/guardian in detail that at this point there is no indication for admission to the hospital. It is understood, however, that if the symptoms persist or worsen the patient needs to return immediately for re-evaluation. Based on the history and exam findings, there is no indication for further emergent testing or inpatient evaluation. I discussed with the patient/guardian the need to see the primary care provider for further evaluation of the symptoms. ED course: No acute findings on blood or cxr, neg COVID/FLU/Strep, pt asymptomatic since arrival. Will dc home with f/u with Dr. Duckworth. . 08/06 11:31 Order name: CBC with Diff; Complete Time: 12:54 rn 08/06 11:31 Order name: Basic Metabolic Panel; Complete Time: 12:54 rn 08/06 11:31 Order name: Procalcitonin; Complete Time: 13:18 rn 08/06 11:31 Order name: Blood Culture Adult (2) rn 08/06 11:31 Order name: BNP; Complete Time: 12:54 rn 08/06 11:31 Order name: Troponin (emerg Dept Use Only); Complete Time: 12:54 rn 08/06 11:31 Order name: IV Start; Complete Time: 11:36 rn 08/06 11:31 Order name: XRAY Chest (1 view); Complete Time: 12:54 rn 08/06 11:31 Order name: Strep; Complete Time: 12:54 rn 08/06 12:42 Order name: Throat Culture EDMS 08/06 13:18 Order name: COVID-19/FLU A+B; Complete Time: 13:18 EDMS Administered Medications: No medications were administered Disposition: 08/06/20 13:23 Discharged to Home. Impression: Person with feared health complaint in whom no diagnosis is made. - Condition is Stable. - Discharge Instructions: Cough, Adult. - Prescriptions for Zithromax Z- Dawson 250 mg Oral Tablet - take 1 tablet by ORAL route as directed for 5 days Day 1 - take two (2) tablets one time. Day 2, 3, 4 , 5 take one (1) tablet once daily.; 6 tablet. - Medication Reconciliation Form, Thank You Letter, Antibiotic Education, Prescription Opioid Use form. - Follow up: Private Physician; When: 2 - 3 days; Reason: Recheck today's complaints, Re-evaluation by your physician. - Problem is new. - Symptoms are resolved. Signatures: Dispatcher [employer] EDMS Raza Gore MD MD rn Baxter, Heather, RN RN hb Garcia, Victoria, RN RN vg1 Robert Saeed RN RN ll1 Corrections: (The following items were deleted from the chart) 12:33 11:32 Influenza Screen (A ordered. EDMS EDMS 12:33 11:32 Influenza Screen (A \\T\\ B)+BA.LAB.BRZ ordered. EDMS EDMS 14:02 13:23 08/06/2020 13:23 Discharged to Home. Impression: Person with feared health vg1 complaint in whom no diagnosis is made. Condition is Stable. Forms are Medication Reconciliation Form, Thank You Letter, Antibiotic Education, Prescription Opioid Use. Follow up: Private Physician; When: 2 - 3 days; Reason: Recheck today's complaints, Re-evaluation by your physician. Problem is new. Symptoms are resolved. rn
[2020-08-06 14:16] VITALS: TEMP 98.4
[2020-08-06 14:17] VITALS: BP 118/78; O2SAT 95
== END 2020-08-06 14:02 | disposition home or self-care (01) ==
LOC: ER 11:24
DX: R05 Cough (principal); Z20.822 Contact with and (suspected) exposure to COVID-19; J34.89 Other specified disorders of nose and nasal sinuses; F20.0 Paranoid schizophrenia; Z88.1 Allergy status to other antibiotic agents; Z88.8 Allergy status to other drugs, medicaments and biological substances
CPT/HCPCS: 87040 ×2; 87070; 85025; 80048; 36415; 87081; 84484; 84145; 83880; 0240U; 71045; 87205; 99284

== ENCOUNTER 2020-12-07 18:20 | Emergency (ER) | payer OTHER, MEDICARE ==
--- OUTSIDE RECORDS SUMMARY | 2020-12-07 18:23 | XMS REPORT | Continuity of Care Document ---
:1940 Author Organization [facility] t Address [address] [place] [address] [address] [place] [address] Care Team Providers Name Role Phone Unavailable Unavailable Unavailable Problems This patient has no known problems. Allergies, Adverse Reactions, Alerts This patient has no known allergies or adverse reactions. Medications This patient has no known medications. Procedures This patient has no known procedures. Encounters Start End Encounter Admission Attending Care Care Encounter Source Date/Time Date/Time Type Type Clinicians Facility Department ID 2020-10-21 2020-10-21 Outpatient [facility] [id number] [facility] 00:00:00 00:00:00 Susu Leonard ent Clinics Results This patient has no known results.
[2020-12-07 18:59] LABS: Absolute Lymphocytes (CBC) 1.1 K/uL (0.7-4.9); Basophils % 0.8 % (0-1.3); Hematocrit 49.7 % (39.6-49.0); Lymphocytes % 20.3 % (15.3-44.8); MPV 9.2 fL (7.6-11.3); RBC Red Blood Cell Count 4.92 M/uL (4.33-5.43)
[2020-12-07 19:08] LABS: Potassium 3.9 mmol/L (3.5-5.1)
--- NOTE | 2020-12-07 19:22 | RAD REPORT ---
EXAM DESCRIPTION: CT - Head C Spine Cap Wo Con - 12/07/2020 6:58 pm TECHNIQUE: Computed axial tomography of the head and cervical spine was obtained. Coronal and sagitt al reconstruction was performed Computed axial tomography of the chest, abdomen and pelvis was obtained. Contrast was not requested. All CT scans are performed using dose optimization technique as appropriate and may include automated exposure control or mA/KV adjustment according to patient size. CLINICAL HISTORY: Head and neck injury with chest and abdominal pain status post fall COMPARISON: CT abdomen 2019 FINDINGS: An intracranial bleed is not seen. 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 The ventricles are normal in caliber. An extra-axial fluid collection is not noted. . Fluid within the sinuses/mastoids is not seen. A cervical fracture is not seen. No dislocation is noted. The evaluation of mediastinum, rosemarie, vessels, solid organs and bowel are limited secondary to the lac k of contrast administration. A mediastinal hematoma is not noted. A pleural effusion is not seen. A lung contusion is not present. The liver,spleen, pancreas, adrenals,kidneys and bladder do not demonstrate a traumatic injury. 18 mi llimeter calculus is present within the bladder. Old pelvic fractures noted. IMPRESSION: 1. No acute intracranial abnormality is seen. 2. A cervical fracture is not visualized. If the patient continues have symptoms to suggest intracran ial/spinal cord pathology MRI be recommended 3. No traumatic abnormality involving the chest/abdomen/pelvis.
--- NOTE | 2020-12-07 21:20 | RAD REPORT ---
EXAM DESCRIPTION: RAD - Femur Left - 12/07/2020 9:09 pm CLINICAL HISTORY: Left leg pain FINDINGS: Screws and intramedullary tashia affix an old proximal left femoral fracture. No acute fracture seen. Bones are osteoporotic
--- NOTE | 2020-12-07 21:22 | RAD REPORT ---
EXAM DESCRIPTION: Jerad Amin Left12/07/2020 9:09 pm CLINICAL HISTORY: Left leg pain FINDINGS: Left knee arthroplasty. No fracture seen The distal aspect of tibia fibula are not included on the lateral film and are not evaluated. If the patient has pain in this region then ankle x-ray should be obtained
--- NOTE | 2020-12-07 21:36 | ER ---
Nurse's Notes [facility] Name: Elver Tee Age: 80 yrs Sex: Male : 1940 Arrival Date: 12/07/2020 Time: 18:23 Bed 4 Private MD: Mike Duckworth V Diagnosis: Pain in left hip;Fall on same level from slipping, tripping and stumbling without subsequent striking against object Presentation: 12/07 18:25 Chief complaint: EMS states: Toned out by for pt fall in the bathroom, reports did jl7 not hit head, pitting edema to kiara lower extremities, pt reports left hip pain x a few years. Coronavirus screen: Client denies travel out of the [place] in the last 14 days. At this time, the client does not indicate any symptoms associated with coronavirus-19. Ebola Screen: No symptoms or risks identified at this time. Initial Sepsis Screen: Does the patient meet any 2 criteria? No. Patient's initial sepsis screen is negative. Does the patient have a suspected source of infection? No. Patient's initial sepsis screen is negative. Risk Assessment: Do you want to hurt yourself or someone else? Patient reports no desire to harm self or others. Onset of symptoms was December 07, 2020. Care prior to arrival: None. 18:25 Method Of Arrival: EMS: [facility] jl7 18:25 Acuity: CUAUHTEMOC 3 jl7 Triage Assessment: 18:30 General: Appears in no apparent distress. uncomfortable, Behavior is cooperative. Pain: jl7 Denies pain. Neuro: Level of Consciousness is awake, alert, obeys commands, Oriented to person, place, time, situation. Cardiovascular: Patient's skin is warm and dry. Edema is 3+ to left foot and right foot. Respiratory: Airway is patent Respiratory effort is even, unlabored, Respiratory pattern is regular, symmetrical. Derm: Skin is pink, warm \T\ dry. Historical: - Allergies: 18:30 Bacitracin Zinc; jl7 18:30 Neomycin Sulfate; jl7 18:30 Polymyxin B Sulfate; jl7 - Home Meds: 18:30 paliperidone 3 mg Oral tr24 1 tab nightly [Active]; mirtazapine 7.5 mg Oral tab jl7 [Active]; propranolol 10 mg Oral tab [Active]; clonazepam 0.5 mg Oral TbDi [Active]; divalproex 250 mg oral Tb24 [Active]; topiramate 25 mg Oral CSpX 1 cap nightly [Active]; Xarelto 10 mg oral tab [Active]; tamsulosin 0.4 mg oral cap [Active]; - PMHx: 18:30 Bipolar disorder; Paranoid Schizophrenia; jl7 - Immunization history:: Adult Immunizations unknown, Client reports receiving the 2nd dose of the Covid vaccine. - Social history:: Smoking status: unknown. Screenin:42 Abuse screen: Denies threats or abuse. Denies injuries from another. Nutritional jl7 screening: No deficits noted. Tuberculosis screening: No symptoms or risk factors identified. Fall Risk Fall in past 12 months (25 points). No secondary diagnosis (0 pts). IV access (20 points). Ambulatory Aid- None/Bed Rest/Nurse Assist (0 pts). Gait- Weak (10 pts.). Mental Status- Overestimates/Forgets Limitations (15 pts.). Total Kowalski Fall Scale indicates High Risk Score (45 or more points). Fall prevention measures have been instituted. Side Rails Up X 2 Placed Close to Nursing Station Frequent Obs/Assessments Occuring As available patient and family educated on Fall Prevention Program and Strategies. Assessment: 18:42 General: See triage. jl7 19:30 General: Appears ill, slender, Behavior is calm, cooperative. Neuro: Level of bb Consciousness is awake, alert, obeys commands, Oriented to person, place, situation. Cardiovascular: Capillary refill < 3 seconds Patient's skin is warm and dry. Edema is 3+ to left foot and right foot Rhythm is irregular. Respiratory: Respiratory effort is unlabored. GI: Abdomen is non-distended. Derm: Skin is dry, Skin is pale, Skin temperature is warm. Musculoskeletal: Circulation, motion, and sensation intact. 21:20 Reassessment: Patient is alert, oriented x 3, equal unlabored respirations, skin bb warm/dry/pink. family at bedside. 22:25 Reassessment: Patient is alert, oriented x 3, equal unlabored respirations, skin bb warm/dry/pink. pt and spouse verbalized understanding of and agree to plan of care discharge instructions given pt assissted to exit via wheelchair accompanied by data center technician and spouse. Vital Signs: 18:25 BP 130 / 95; Pulse 78; Resp 19; Temp 98.8; Pulse Ox 98% on R/A; Weight 90.72 kg; Height jl7 6 ft. 0 in. (182.88 cm); Pain 0/10; 18:43 BP 131 / 84; Pulse 90; Resp 15; Pulse Ox 98% on R/A; jl7 20:11 BP 127 / 86; Pulse 66; Resp 24 S; Pulse Ox 97% on R/A; bb 21:20 BP 120 / 81; Pulse 75; Resp 20; Pulse Ox 96% on R/A; bb 18:25 Body Mass Index 27.12 (90.72 kg, 182.88 cm) 7 ED Course: 18:23 Patient arrived in ED. [facility] 18:25 Robert Sr, PENNIE is Primary Nurse. [facility] 18:27 Kobe Blas PA is PHCP. cp 18:27 Kobe Friend MD is Attending Physician. cp 18:30 Triage completed. [facility] 18:30 Arm band placed on right wrist. [facility] 18:42 Patient has correct armband on for positive identification. Bed in low position. Call [facility] light in reach. Side rails up X2. desk monitor on. Pulse ox on. NIBP on. Warm blanket given. 18:42 Initial lab(s) drawn, by ED staff, sent to lab. T\T\S collected, blood band applied to jl7 patient. Inserted saline lock: 20 gauge in right forearm, using aseptic technique. Blood collected. 18:58 CT Traumagram (Head C Spine CAP wo con) In Process Unspecified. EDMS 19:30 IV is intact. bb 20:59 Mike Duckworth MD is Private Physician. do 21:09 XRAY Femur LEFT In Process Unspecified. EDMS 21:09 XRAY Tib Fib LEFT In Process Unspecified. EDMS 21:34 Mike Duckworth MD is Referral Physician. cp 22:00 IV discontinued, intact, bleeding controlled, No redness/swelling at site. Pressure bb dressing applied. 22:26 No provider procedures requiring assistance completed. bb Administered Medications: No medications were administered Outcome: 21:36 Discharge ordered by . cp 22:26 Discharged to home via wheelchair, with family. bb 22:26 Condition: stable 22:26 Discharge instructions given to patient, family, Instructed on discharge instructions, follow up and referral plans. Demonstrated understanding of instructions, follow-up care. 22:26 Patient left the ED. bb Signatures: Dispatcher [employer] EDKobe Pack MD MD cha Ballard, Brenda, RN RN Kobe Perera PA PA cp Ogletree, Danielle do Leal, Jahala RN RN jl7
--- NOTE | 2020-12-07 21:36 | EDPHYS ---
Physician Documentation [facility] Name: Elver Tee Age: 80 yrs Sex: Male : 1940 Arrival Date: 12/07/2020 Time: 18:23 Bed 4 Private MD: Mike Duckworth V ED Physician Kobe Friend HPI: 12/07 18:40 This 80 yrs old Male presents to ER via EMS with complaints of Fall. cp 18:40 Details of fall: The patient fell from an upright position, while walking, and struck a cp tile surface. Onset: The symptoms/episode began/occurred just prior to arrival. Associated injuries: The patient sustained left hip and left leg. Patient reports slip and fall while in bathroom this evening. Denies hitting head, denies LOC, denies syncope. Patient reports left hip pain. Historical: - Allergies: 18:30 Bacitracin Zinc; jl7 18:30 Neomycin Sulfate; jl7 18:30 Polymyxin B Sulfate; jl7 - Home Meds: 18:30 paliperidone 3 mg Oral tr24 1 tab nightly [Active]; mirtazapine 7.5 mg Oral tab jl7 [Active]; propranolol 10 mg Oral tab [Active]; clonazepam 0.5 mg Oral TbDi [Active]; divalproex 250 mg oral Tb24 [Active]; topiramate 25 mg Oral CSpX 1 cap nightly [Active]; Xarelto 10 mg oral tab [Active]; tamsulosin 0.4 mg oral cap [Active]; - PMHx: 18:30 Bipolar disorder; Paranoid Schizophrenia; jl7 - Immunization history:: Adult Immunizations unknown, Client reports receiving the 2nd dose of the Covid vaccine. - Social history:: Smoking status: unknown. ROS: 18:45 Constitutional: Negative for body aches, chills, fever, poor PO intake. cp 18:45 Eyes: Negative for injury, pain, redness, and discharge. cp 18:45 Cardiovascular: Negative for chest pain. 18:45 Respiratory: Negative for cough, shortness of breath, wheezing. 18:45 Abdomen/GI: Negative for abdominal pain, nausea, vomiting, and diarrhea. 18:45 Back: Negative for pain at rest, pain with movement. 18:45 MS/extremity: Positive for pain, of the left hip, Negative for decreased range of motion, deformity. 18:45 Neuro: Negative for altered mental status, headache, loss of consciousness, syncope, weakness. 18:45 All other systems are negative. Exam: 19:00 Head/Face: Normocephalic, atraumatic. cp 19:00 Constitutional: The patient appears in no acute distress, alert, awake, non-diaphoretic, non-toxic, well developed, well nourished. 19:00 Eyes: Periorbital structures: appear normal, Pupils: equal, round, and reactive to cp light and accomodation, Extraocular movements: intact throughout, Sclera: no appreciated abnormality. 19:00 ENT: External ear(s): are unremarkable, Nose: is normal, Mouth: Lips: moist, Oral mucosa: moist, Posterior pharynx: Airway: no evidence of obstruction, patent. 19:00 Neck: C-spine: vertebral tenderness, is not appreciated, crepitus, is not appreciated. 19:00 Chest/axilla: Inspection: normal, Palpation: is normal, no crepitus, no tenderness. 19:00 Cardiovascular: Rate: normal, Edema: ankle edema, that is mild, JVD: is not appreciated. 19:00 Respiratory: the patient does not display signs of respiratory distress, Respirations: normal, no use of accessory muscles, no retractions, labored breathing, is not present, Breath sounds: are clear throughout, no decreased breath sounds. 19:00 Abdomen/GI: Inspection: abdomen appears normal, Palpation: abdomen is soft and non-tender, in all quadrants, voluntary guarding, is not appreciated, involuntary guarding, is not appreciated. 19:00 Back: vertebral tenderness, is not appreciated. 19:00 Musculoskeletal/extremity: Extremities: grossly normal except: noted in the left hip: tenderness, There is no evidence of decreased ROM, deformity, ROM: full passive range of motion, in the left hip, Pulses: noted to be 2+ in the right dorsalis pedis artery and left dorsalis pedis artery. 19:00 Neuro: Orientation: to person, place \T\ time. Mentation: is normal. Vital Signs: 18:25 BP 130 / 95; Pulse 78; Resp 19; Temp 98.8; Pulse Ox 98% on R/A; Weight 90.72 kg; Height jl7 6 ft. 0 in. (182.88 cm); Pain 0/10; 18:43 BP 131 / 84; Pulse 90; Resp 15; Pulse Ox 98% on R/A; jl7 20:11 BP 127 / 86; Pulse 66; Resp 24 S; Pulse Ox 97% on R/A; bb 21:20 BP 120 / 81; Pulse 75; Resp 20; Pulse Ox 96% on R/A; bb 18:25 Body Mass Index 27.12 (90.72 kg, 182.88 cm) 7 MDM: 18:32 Patient medically screened. jaelyn 19:00 Differential diagnosis: closed head injury, contusion, fracture, multiple trauma. cp 21:36 Data reviewed: vital signs, nurses notes, lab test result(s), radiologic studies, CT cp scan, plain films. 21:36 Test interpretation: by ED physician or midlevel provider: plain radiologic studies. cp Counseling: I had a detailed discussion with the patient and/or guardian regarding: the historical points, exam findings, and any diagnostic results supporting the discharge/admit diagnosis, lab results, radiology results, to return to the emergency department if symptoms worsen or persist or if there are any questions or concerns that arise at home. ED course: VSS. Radiology studies negative for acute trauma. Will discharge to home for continued monitoring. 12/07 18:31 Order name: Basic Metabolic Panel; Complete Time: 19:21 12/07 19:21 Interpretation: Normal except: CL 111; GFR 89. 12/07 18:31 Order name: CBC with Diff; Complete Time: 19:21 12/07 19:21 Interpretation: Normal except: HCT 49.7; MCV 101.2. 12/07 18:31 Order name: Type And Screen; Complete Time: 21:33 12/07 18:31 Order name: CT Traumagram (Head C Spine CAP wo con); Complete Time: 19:24 12/07 19:25 Interpretation: Report reviewed. 12/07 19:29 Order name: XRAY Femur LEFT; Complete Time: 21:33 cp 12/07 19:29 Order name: XRAY Tib Fib LEFT; Complete Time: 21:33 12/07 18:31 Order name: Labs collected and sent; Complete Time: 18:42 cp Administered Medications: No medications were administered Disposition Summary: 07/24/21 21:36 Discharge Ordered Location: Home cp Problem: new cp Symptoms: have improved cp Condition: Stable cp Diagnosis - Pain in left hip cp - Fall on same level from slipping, tripping and stumbling without subsequent cp striking against object Followup: cp - With: Mike Duckworth MD - When: 2 - 3 days - Reason: Recheck today's complaints Discharge Instructions: - Discharge Summary Sheet cp - Fall Prevention in the Home, Adult cp - Hip Pain cp Forms: - Medication Reconciliation Form cp - Thank You Letter cp - Antibiotic Education cp - Prescription Opioid Use cp Addendum: 12/09/2020 07:05 Co-signature as Attending Physician, Kobe Friend MD I agree with the assessment and c [place] plan of care. Signatures: Dispatcher [employer] EDKobe Pack MD MD cha Page, Corey, PA PA Robert Virgen, RN RN jl7
[2020-12-07 22:33] VITALS: TEMP 98.8
[2020-12-07 22:37] VITALS: BP 120/81; O2SAT 96
== END 2020-12-07 22:26 | disposition home or self-care (01) ==
LOC: ER 18:20
DX: M25.552 Pain in left hip (principal); W01.0XXA Fall on same level from slipping, tripping and stumbling without subsequent striking against object, initial encounter; Y93.01 Activity, walking, marching and hiking; Y92.002 Bathroom of unspecified non-institutional (private) residence as the place of occurrence of the external cause; F20.0 Paranoid schizophrenia; Z88.1 Allergy status to other antibiotic agents; Z88.3 Allergy status to other anti-infective agents; Z88.8 Allergy status to other drugs, medicaments and biological substances
CPT/HCPCS: 36415; 70450; 71250; 72125; 80048; 85025; 86850; 86900; 86901; 99284

== ENCOUNTER 2020-12-09 16:58 | Emergency (ER) | payer OTHER, MEDICARE ==
--- OUTSIDE RECORDS SUMMARY | 2020-12-09 17:01 | XMS REPORT | Continuity of Care Document ---
:1940 Author Organization [facility] t Address [address] [place] [address] [address] [place] [address] Care Team Providers Name Role Phone Unavailable [...] Clinicians Facility Department ID 2020-10-21 2020-10-21 Outpatient [facility] [id number] [facility] 00:00:00 00:00:00 Susu Leonard ent Clinics Results This patient has no known results.
--- NOTE | 2020-12-09 18:13 | RAD REPORT ---
EXAM DESCRIPTION: RAD - Chest Single View - 12/09/2020 6:06 pm CLINICAL HISTORY: PALPITATIONS COMPARISON: Portable August 06 TECHNIQUE: AP portable chest image was obtained 12/09/2020 6:06 pm . FINDINGS: Lung volumes are low accentuating baseline interstitial pattern. No peripheral mass or con solidation. No failure or volume overload. Heart and vasculature are normal. No measurable pleural effusion and no pneumothorax. No acute bony abnormality seen. No acute aortic findings suspected. IMPRESSION: No acute cardiopulmonary process. No significant change from comparison study.
--- NOTE | 2020-12-09 18:14 | RAD REPORT ---
EXAM DESCRIPTION: CT - Head Brain Wo Cont - 12/09/2020 5:56 pm CLINICAL HISTORY: dizziness, fall, head injury COMPARISON: Head Brain Wo Cont dated 02/03/2020 TECHNIQUE: Axial 5 mm thick images of the head were obtained without IV contrast. All CT scans are performed using dose optimization technique as appropriate and may include automated exposure control or mA/KV adjustment according to patient size. FINDINGS: No intracranial hemorrhage, mass, edema or shift of mid-line structures. No acute infarcti on changes seen. No cortical edema or sulcal effacement. Moderate atrophy present ventricles in propo rtion. 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 Dense arterial tree calcifications are present. Mastoid air cells and visualized portions of the paranasal sinuses are clear. No acute bony findings. IMPRESSION: Negative non-contrast CT head examination for acute intracranial finding. Above detailed findings match the January 2020 study.
[2020-12-09 18:45] LABS: Absolute Lymphocytes (CBC) 0.6 K/uL (0.7-4.9); Basophils % 0.5 % (0-1.3); Hematocrit 46.9 % (39.6-49.0); MPV 8.7 fL (7.6-11.3); RBC Red Blood Cell Count 4.63 M/uL (4.33-5.43)
[2020-12-09 18:51] LABS: Protime INR 1.76
[2020-12-09] MEDS ORDERED: NA CHLORIDE 0.9% 500 ML ONE (19:02)
[2020-12-09 19:12] LABS: ALT/SGPT 16 U/L (12-78); AST/SGOT 6 U/L (15-37); Albumin 2.9 g/dL (3.4-5.0); Alkaline Phosphatase 67 U/L (45-117); BUN Blood Urea Nitrogen 16 mg/dL (7-18); Bicarbonate 27 mmol/L (21-32); Bilirubin Direct 0.1 mg/dL (0-0.2); Bilirubin Total 0.5 mg/dL (0.2-1.0); Glucose Level 93 mg/dL (74-106); Magnesium 1.8 mg/dL (1.8-2.4); NT PRO-BNP 297 pg/mL (<450); Potassium 3.9 mmol/L (3.5-5.1); Protein, Total 5.7 g/dL (6.4-8.2); Sodium Level 142 mmol/L (136-145); Troponin (Emerg Dept Use Only) < 0.02 ng/mL (0.0-0.045)
--- NOTE | 2020-12-10 08:00 | EKG ---
Test Date: 2020-12-09 Test Time: 18:25:19 Campus Administrator: PH MEASUREMENT RESULTS: Intervals: Rate: 78 TN: 158 QRSD: 60 QT: 366 QTc: 417 [place]: P: 75 TN: 158 QRS: 18 T: 18 INTERPRETIVE STATEMENTS: Sinus rhythm with premature atrial complexes Low voltage QRS Borderline ECG Compared to ECG 02/03/2020 03:45:41 Low QRS voltage now present Aberrant conduction of supraventricular beat(s) no longer present Electronically Signed On 12-10-20 07:57:44 CDT by Yong Alexander
--- NOTE | 2020-12-10 17:38 | EDPHYS ---
Physician Documentation [facility] Name: Elver Tee Age: 80 yrs Sex: Male : 1940 Arrival Date: 12/09/2020 Time: 17:19 Bed 14 Private MD: ED Physician Kobe Friend HPI: 12/09 17:51 This 80 yrs old Male presents to ER via EMS with complaints of Dizziness, rn fall. 17:51 The patient presents with dizziness, generalized weakness, lightheadedness. Onset: The rn symptoms/episode began/occurred just prior to arrival. Context: occurred at home, occurred while the patient was Sitting on toilet. just prior to the episode the patient experienced no apparent symptoms. Modifying factors: The symptoms are alleviated by lying down, the symptoms are aggravated by standing up, changing position. Associated signs and symptoms: Pertinent negatives: abdominal pain, blurred vision, chest pain, confusion, diaphoresis, focal weakness, seizure, shortness of breath, syncope, vomiting. Severity of symptoms: At their worst the symptoms were moderate in the emergency department the symptoms have improved. The patient has not experienced similar symptoms in the past. The patient has not recently seen a physician. Patient states on toilet, standing up and got lightheaded, fell to ground, thinks hit head, no LOC. Patient does not feel like had any injury from the fall or fractures. Reports thirsty lately but no vomiting, diarrhea, cough, trouble breathing. Patient feels a little bit better now, brought in by EMS without any interventions. EMS reports frequent PACs, patient denies any history of SVT or atrial fibrillation.. Historical: - Allergies: 17:23 Bacitracin Zinc; ph 17:23 Neomycin Sulfate; ph 17:23 Polymyxin B Sulfate; ph - Home Meds: 17:23 propranolol 10 mg Oral tab [Active]; paliperidone 3 mg Oral tr24 1 tab nightly ph [Active]; mirtazapine 7.5 mg Oral tab [Active]; clonazepam 0.5 mg Oral TbDi [Active]; divalproex 250 mg oral Tb24 [Active]; Xarelto 10 mg Oral tab [Active]; topiramate 25 mg Oral CSpX 1 cap nightly [Active]; tamsulosin 0.4 mg Oral cap [Active]; 19:37 clonazepam 2 mg Oral tab 2 tabs [Active]; Depakote Oral [Active]; ak2 - PMHx: 17:23 Bipolar disorder; Hypertensive disorder; ph - Immunization history:: Client reports receiving the 2nd dose of the Covid vaccine. - Social history:: Smoking status: Patient denies any tobacco usage or history of. - Family history:: not pertinent. - Hospitalizations: : No recent hospitalization is reported. ROS: 17:51 Constitutional: Negative for fever, chills, and weight loss, Eyes: Negative for injury, rn pain, redness, and discharge, Neck: Negative for injury, pain, and swelling, Cardiovascular: Negative for chest pain Respiratory: Negative for shortness of breath, cough, wheezing, and pleuritic chest pain, Abdomen/GI: Negative for abdominal pain, nausea, vomiting, diarrhea, and constipation, Back: Negative for injury and pain, : Negative for injury, bleeding, discharge, and swelling, MS/Extremity: Negative for injury and deformity, Skin: Negative for injury, rash, and discoloration, Neuro: Negative for headache, numbness, tingling, and seizure. Exam: 17:51 Constitutional: This is a well developed, well nourished patient who is awake, alert, rn and in no acute distress. Head/Face: Normocephalic, atraumatic. ENT: Dry mucous membranes Cardiovascular: Regular rate, irregular rhythm. No pulse deficits. Respiratory: No increased work of breathing, no retractions or nasal flaring. Abdomen/GI: Soft, nontender, nondistended Skin: Warm, dry, no cyanosis MS/ Extremity: Pulses equal, no cyanosis. Neurovascular intact. Full, normal range of motion. Equal circumference. 2+ pitting edema bilateral lower extremities Neuro: Awake and alert, GCS 15, oriented to person, place, time, and situation. Cranial nerves II-XII grossly intact. Motor strength 4/5 in all extremities. Sensory grossly intact. Cerebellar exam normal. 20:35 ECG was reviewed by the Attending Physician. [facility] Vital Signs: 17:19 BP 119 / 79; Pulse 89; Resp 18; Temp 97.5; Pulse Ox 97% 2 lpm ; Weight 88.45 kg; Height ph 6 ft. 0 in. (182.88 cm); 18:53 BP 120 / 80; Pulse 71; Resp 16; Pulse Ox 99% on R/A; ph 19:37 BP 120 / 68; Pulse 74; Resp 18; Pulse Ox 98% on R/A; ak2 20:50 BP 140 / 74 Supine; Pulse 74; ak2 20:50 BP 141 / 78 Sitting; Pulse 79; ak2 20:50 BP 147 / 81 Standing; Pulse 82; ak2 17:19 Body Mass Index 26.45 (88.45 kg, 182.88 cm) ph MDM: 17:24 Patient medically screened. rn 20:34 Differential diagnosis: cardiac arrhythmia, CVA, generalized weakness, head injury, jaelyn hypovolemia, idiopathic dizziness. Data reviewed: vital signs, nurses notes, EMS record, lab test result(s), EKG, radiologic studies, CT scan, plain films. 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 Test interpretation: by ED physician or midlevel provider: ECG, plain radiologic studies. Counseling: I had a detailed discussion with the patient and/or guardian regarding: the historical points, exam findings, and any diagnostic results supporting the discharge/admit diagnosis, lab results, radiology results, the need for outpatient follow up, for definitive care, 21:00 Physician consultation: Mike Duckworth MD and will see patient in office, if orthos jaelyn negative and can walk as usuas, dc will see in office. 12/09 17:39 Order name: Basic Metabolic Panel; Complete Time: 20:31 rn 12/09 17:39 Order name: CBC with Diff; Complete Time: 20:31 rn 12/09 17:39 Order name: LFT's; Complete Time: 20:31 rn 12/09 17:39 Order name: Magnesium; Complete Time: 20:31 rn 12/09 17:39 Order name: NT PRO-BNP; Complete Time: 20:31 rn 12/09 17:39 Order name: PT-INR; Complete Time: 20:31 rn 12/09 17:39 Order name: IV Start; Complete Time: 18:49 rn 12/09 17:39 Order name: Troponin (emerg Dept Use Only); Complete Time: 20:31 rn 12/09 17:39 Order name: XRAY Chest (1 view); Complete Time: 18:14 rn 12/09 17:39 Order name: EKG; Complete Time: 17:39 rn 12/09 17:39 Order name: CT Head Brain wo Cont; Complete Time: 18:16 rn 12/09 17:39 Order name: Procalcitonin; Complete Time: 20:31 rn 12/09 20:34 Order name: Depakote [facility] 12/09 17:39 Order name: Cardiac monitoring; Complete Time: 18:48 rn 12/09 17:39 Order name: EKG - Nurse/Tech; Complete Time: 18:48 rn 12/09 17:39 Order name: Labs collected and sent; Complete Time: 18:49 rn 12/09 17:39 Order name: O2 Per Protocol; Complete Time: 18:49 rn 12/09 17:39 Order name: O2 Sat Monitoring; Complete Time: 18:49 12/09 20:34 Order name: Urine Dipstick-Ancillary (obtain specimen) [facility] 12/09 20:37 Order name: Orthostatics [facility] 12/09 20:38 Order name: Misc. Order: walk on walker [facility] EC:35 Rate is 78 beats/min. Rhythm is regular. QRS [place] is Normal. [place] interval is normal. QRS jaelyn interval is normal. QT interval is normal. No Q waves. T waves are Normal. No ST changes noted. Clinical impression: NSR w/ Non-specific ST/T Changes and No evidence of ischemia. Interpreted by me. Reviewed by me. Administered Medications: 18:48 Drug: NS 0.9% 500 ml Route: IV; Rate: bolus; Site: right forearm; ph Disposition Summary: 12/09/20 21:00 Discharge Ordered Location: Home jaelyn Problem: new jaelyn Symptoms: have improved jaelyn Condition: Stable jaelyn Diagnosis - Weakness jaelyn - Fall (on) (from) other stairs and steps - toliet jaelyn - Parkinson's disease jaelyn - Bipolar disorder, unspecified jaelyn Followup: jaelyn - With: Private Physician - When: 2 - 3 days - Reason: Recheck today's complaints, Continuance of care, Re-evaluation by your physician Followup: jaelyn - With: - When: 2 - 3 days - Reason: Recheck today's complaints, Re-evaluation by your physician Discharge Instructions: - Discharge Summary Sheet jaelyn - Fall Prevention in the Home, Adult jaelyn - Bipolar 1 Disorder jaelyn - Weakness jaelyn - Fall Prevention in the Home, Adult, [id number] jaelyn - Weakness, [id number] jaelyn Forms: - Medication Reconciliation Form jaelyn - Thank You Letter jaelyn - Antibiotic Education jaelyn - Prescription Opioid Use jaelyn Signatures: Dispatcher [employer] EDKobe Pack MD MD cha Nieto, Roman, MD MD rn Hall, Patricia, RN RN Kwame [place] Corrections: (The following items were deleted from the chart) 17:28 17:23 Home Meds: topiramate 25 mg oral tab; ph ph
--- NOTE | 2020-12-10 17:38 | ER ---
Nurse's Notes [facility] Name: Elver Tee Age: 80 yrs Sex: Male : 1940 Arrival Date: 12/09/2020 Time: 17:19 Bed 14 Private MD: Diagnosis: Weakness;Fall (on) (from) other stairs and steps-toliet;Parkinson's disease;Bipolar disorder, unspecified Presentation: 12/09 17:19 Chief complaint: EMS states: Pt became dizzy and fell trying to get up off of toilet, ph initial BP 108 systolic, 12 lead showed frequent PACs which improved after oxygen administration, states that pt had a cortisone shot in L hip today, pt reports that dizziness has improved, c/o L shoulder pain. Coronavirus screen: At this time, the client does not indicate any symptoms associated with coronavirus-19. Ebola Screen: No symptoms or risks identified at this time. Initial Sepsis Screen: Does the patient meet any 2 criteria? No. Patient's initial sepsis screen is negative. Does the patient have a suspected source of infection? No. Patient's initial sepsis screen is negative. Risk Assessment: Do you want to hurt yourself or someone else? Patient reports no desire to harm self or others. Onset of symptoms was December 09, 2020. 17:19 Method Of Arrival: EMS: [facility] ph 17:19 Acuity: [id number] 3 ph Historical: - Allergies: 17:23 Bacitracin Zinc; ph 17:23 Neomycin Sulfate; ph 17:23 Polymyxin B Sulfate; ph - Home Meds: 17:23 propranolol 10 mg Oral tab [Active]; paliperidone 3 mg Oral tr24 1 tab nightly ph [Active]; mirtazapine 7.5 mg Oral tab [Active]; clonazepam 0.5 mg Oral TbDi [Active]; divalproex 250 mg oral Tb24 [Active]; Xarelto 10 mg Oral tab [Active]; topiramate 25 mg Oral CSpX 1 cap nightly [Active]; tamsulosin 0.4 mg Oral cap [Active]; 19:37 clonazepam 2 mg Oral tab 2 tabs [Active]; Depakote Oral [Active]; ak2 - PMHx: 17:23 Bipolar disorder; Hypertensive disorder; ph - Immunization history:: Client reports receiving the 2nd dose of the Covid vaccine. - Social history:: Smoking status: Patient denies any tobacco usage or history of. - Family history:: not pertinent. - Hospitalizations: : No recent hospitalization is reported. Screenin:29 Abuse screen: Denies threats or abuse. Denies injuries from another. Nutritional ph screening: No deficits noted. Tuberculosis screening: No symptoms or risk factors identified. Fall Risk None identified. Assessment: 17:30 General: Appears in no apparent distress. comfortable, Behavior is calm, cooperative, ph appropriate for age. Pain: Pain: Complains of pain in left shoulder. 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 Cardiovascular: Capillary refill < 3 seconds in bilateral fingers Patient's skin is warm and dry. Edema is 2+ to left ankle and right ankle Rhythm is irregular. Respiratory: Airway is patent Respiratory effort is even, unlabored, Respiratory pattern is regular, symmetrical, Denies cough, shortness of breath. GI: No signs and/or symptoms were reported involving the gastrointestinal system. Patient currently denies diarrhea, nausea, vomiting. Derm: Skin is intact, Skin is pink, warm \T\ dry. Musculoskeletal: Circulation, motion, and sensation intact. Range of motion: intact in all extremities. 18:53 Reassessment: Patient appears in no apparent distress at this time. Patient and/or ph family updated on plan of care and expected duration. Pain level reassessed. Patient is alert, oriented x 3, equal unlabored respirations, skin warm/dry/pink. Vital Signs: 17:19 BP 119 / 79; Pulse 89; Resp 18; Temp 97.5; Pulse Ox 97% 2 lpm ; Weight 88.45 kg; Height ph 6 ft. 0 in. (182.88 cm); 18:53 BP 120 / 80; Pulse 71; Resp 16; Pulse Ox 99% on R/A; ph 19:37 BP 120 / 68; Pulse 74; Resp 18; Pulse Ox 98% on R/A; ak2 20:50 BP 140 / 74 Supine; Pulse 74; ak2 20:50 BP 141 / 78 Sitting; Pulse 79; ak2 20:50 BP 147 / 81 Standing; Pulse 82; ak2 17:19 Body Mass Index 26.45 (88.45 kg, 182.88 cm) ph Vitals: 18:53 Cardiac Rhythm Assessment Irregular Atrial fibrillation. ph ED Course: 16:30 Initial lab(s) drawn, by me, sent to lab. Inserted saline lock: 20 gauge in right ph forearm, using aseptic technique. Blood collected. 17:19 Patient arrived in ED. ph 17:19 Steffany Baez RN is Primary Nurse. ph 17:23 Triage completed. ph 17:23 Raza Gore MD is Attending Physician. rn 17:28 Arm band placed on Patient placed in an exam room, on a stretcher, on engine monitor, ph on pulse oximetry. 17:29 Patient has correct armband on for positive identification. Bed in low position. Call ph light in reach. Side rails up X2. monitoring and evaluation advisor on. Pulse ox on. NIBP on. Door closed. Noise minimized. Warm blanket given. 17:55 CT Head Brain wo Cont In Process Unspecified. EDMS 18:04 XRAY Chest (1 view) In Process Unspecified. EDMS 19:28 Attending Physician role handed off by Raza Gore MD [facility] 19:28 Kobe Friend MD is Attending Physician. jaelyn 19:37 No provider procedures requiring assistance completed. ak2 21:00 Mike Duckwotrh MD is Referral Physician. [facility] Administered Medications: 18:48 Drug: NS 0.9% 500 ml Route: IV; Rate: bolus; Site: right forearm; ph Outcome: 21:00 Discharge ordered by . [facility] 21:06 Discharged to home ambulatory. ak2 21:06 Condition: good 21:06 Discharge instructions given to patient, family. 21:06 Patient left the ED. ak2 Signatures: Dispatcher [employer] Kobe Barrett MD MD cha Nieto, Roman, MD MD rn Hall, Patricia, RN RN Kwame Martel ak2 Corrections: (The following items were deleted from the chart) 17:28 17:23 Home Meds: topiramate 25 mg oral tab; ph ph 18:53 17:30 Pain: ph ph 19:44 19:37 BP 120 / 68; Pulse 74bpm; Resp 73bpm; Pulse Ox 98% RA; ak2 ak2
[2020-12-11 13:53] VITALS: TEMP 97.5
[2020-12-11 13:57] VITALS: O2SAT 98
[2020-12-11 13:59] VITALS: BP 147/81
== END 2020-12-09 21:06 | disposition home or self-care (01) ==
LOC: ER 16:58
DX: R53.1 Weakness (principal); F31.9 Bipolar disorder, unspecified; G20 Parkinson's disease; W18.11XA Fall from or off toilet without subsequent striking against object, initial encounter; Y92.002 Bathroom of unspecified non-institutional (private) residence as the place of occurrence of the external cause; I10 Essential (primary) hypertension; Z79.01 Long term (current) use of anticoagulants; Z88.1 Allergy status to other antibiotic agents; Z88.3 Allergy status to other anti-infective agents; Z88.8 Allergy status to other drugs, medicaments and biological substances
CPT/HCPCS: 93005; 85025; 80048; 36415; 83735; 85610; 80076; 80164; 84484; 84145; 83880; 70450; 71045; J7040

== ENCOUNTER 2021-02-27 15:12 | Emergency (ER) | payer OTHER, MEDICARE ==
[2021-02-27 16:37] LABS: Absolute Lymphocytes (CBC) 0.9 K/uL (0.7-4.9); Basophils % 0.6 % (0-1.3); Hematocrit 47.1 % (39.6-49.0); Lymphocytes % 15.1 % (15.3-44.8); MPV 8.2 fL (7.6-11.3)
[2021-02-27 16:44] LABS: Protime INR 1.74
[2021-02-27 17:26] LABS: ALT/SGPT 16 U/L (12-78); AST/SGOT 8 U/L (15-37); Alkaline Phosphatase 75 U/L (45-117); BUN Blood Urea Nitrogen 14 mg/dL (7-18); Bicarbonate 28 mmol/L (21-32); Bilirubin Direct 0.2 mg/dL (0-0.2); Bilirubin Total 0.6 mg/dL (0.2-1.0); Glucose Level 111 mg/dL (74-106); Potassium 3.9 mmol/L (3.5-5.1); Protein, Total 5.6 g/dL (6.4-8.2); Sodium Level 144 mmol/L (136-145); Valproic Acid (Depakene) Level 15.4 ug/mL (50-100)
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
[2021-02-27 18:48] VITALS: TEMP 97.1
[2021-02-27 18:49] VITALS: BP 142/79; O2SAT 98
--- NOTE | 2021-03-01 11:47 | EKG ---
Test Date: 2021-02-27 Test Time: 17:04:42 Reel Fed Printer: MARTITA MEASUREMENT RESULTS: Intervals: Rate: 72 RI: 162 QRSD: 74 QT: 386 QTc: 422 [place]: P: 48 RI: 162 QRS: 43 T: 42 INTERPRETIVE STATEMENTS: Sinus rhythm with premature atrial complexes Low voltage QRS Borderline ECG Compared to ECG 12/09/2020 18:25:19 No significant changes Electronically Signed On 03-01-21 11:44:47 CDT by Yong Alexander
== END 2021-02-27 18:41 | disposition home or self-care (01) ==
LOC: ER 15:12
DX: F31.9 Bipolar disorder, unspecified (principal); F20.0 Paranoid schizophrenia; Z88.1 Allergy status to other antibiotic agents; Z88.3 Allergy status to other anti-infective agents; Z88.8 Allergy status to other drugs, medicaments and biological substances
CPT/HCPCS: 36415; 80048; 80076; 80164; 80320; 80329; 85025; 85610; 85730; 93005; 99284

== ENCOUNTER 2021-03-20 17:33 | Emergency (ER) | payer OTHER, MEDICARE ==
[2021-03-20] MEDS ORDERED: MAGNESIUM CITRATE 300 ML BOT ONE (18:01)
[2021-03-20 18:37] LABS: Absolute Lymphocytes (CBC) 0.7 K/uL (0.7-4.9); Basophils % 0.8 % (0-1.3); Hematocrit 50.9 % (39.6-49.0); MPV 8.6 fL (7.6-11.3); RBC Red Blood Cell Count 5.08 M/uL (4.33-5.43)
[2021-03-20 19:10] LABS: Albumin 3.5 g/dL (3.4-5.0); Bilirubin Direct 0.1 mg/dL (0-0.2); Bilirubin Total 0.4 mg/dL (0.2-1.0); Potassium 3.8 mmol/L (3.5-5.1); Protein, Total 6.4 g/dL (6.4-8.2)
--- NOTE | 2021-03-20 19:27 | EDPHYS ---
Physician Documentation [facility] Name: Elver Tee Age: 80 yrs Sex: Male : 1940 Arrival Date: 03/20/2021 Time: 17:34 Bed 7 Private MD: ED Physician Raza Gore HPI: 03/20 18:10 This 80 yrs old Male presents to ER via EMS with complaints of Constipation. cp 18:10 The patient presents to the emergency department with pain in the rectal area, cp constipation. 18:10 Associate signs and symptoms: Pertinent positives: constipation, Pertinent negatives: cp abdominal pain, diarrhea, fever, lower GI bleeding, vomiting. 18:10 Onset: The symptoms/episode began/occurred today. cp 18:10 Modifying factors: The symptoms are aggravated by attempting to have bowel movement. cp Historical: - Allergies: 17:35 Bacitracin Zinc; ll1 17:35 Neomycin Sulfate; ll1 17:35 Polymyxin B Sulfate; ll1 - PMHx: 17:35 Bipolar disorder; Hypertensive disorder; Paranoid Schizophrenia; ll1 - Immunization history:: Client reports receiving the 2nd dose of the Covid vaccine. - Social history:: Smoking status: Patient denies any tobacco usage or history of. ROS: 18:15 Abdomen/GI: Positive for constipation, rectal pain, Negative for abdominal pain, cp vomiting, diarrhea, anorexia, black/tarry stool, rectal bleeding. 18:15 Eyes: Negative for injury, pain, redness, and discharge. cp 18:15 Constitutional: Negative for fever, poor PO intake. 18:15 Cardiovascular: Negative for chest pain. 18:15 Respiratory: Negative for cough, shortness of breath, wheezing. 18:15 Back: Negative for radiated pain. 18:15 : Negative for urinary symptoms. 18:15 Neuro: Negative for altered mental status, headache, weakness. 18:15 All other systems are negative. Exam: 18:20 Constitutional: The patient appears in no acute distress, alert, awake, non-toxic, well cp developed, well nourished, uncomfortable. 18:20 Head/Face: Normocephalic, atraumatic. cp 18:20 Eyes: Periorbital structures: appear normal, Conjunctiva: normal, no exudate, no injection, Sclera: no appreciated abnormality. 18:20 Chest/axilla: Inspection: normal. 18:20 Cardiovascular: Rate: normal. 18:20 Respiratory: the patient does not display signs of respiratory distress, Respirations: normal, no use of accessory muscles, no retractions, labored breathing, is not present, Breath sounds: are clear throughout. 18:20 Abdomen/GI: Inspection: abdomen appears normal, Bowel sounds: active, all quadrants, Palpation: abdomen is soft and non-tender, in all quadrants, Rectal exam: Stool: brown, guaiac negative, fecal impaction, that is severe. 18:20 Neuro: Orientation: to person, place \T\ time. Mentation: is normal. Vital Signs: 17:35 BP 123 / 80; Pulse 67; Resp 17; Temp 97.9; Pulse Ox 95% on R/A; Weight 81.65 kg; Height ll1 6 ft. 0 in. (182.88 cm); Pain 0/10; 20:00 BP 118 / 74; Pulse 70; Resp 16; Temp 97.8(O); Pulse Ox 98% on R/A; Pain 0/10; kc4 17:35 Body Mass Index 24.41 (81.65 kg, 182.88 cm) ll1 MDM: 17:48 Patient medically screened. cp 19:23 Data reviewed: vital signs, nurses notes, lab test result(s). Counseling: I had a cp detailed discussion with the patient and/or guardian regarding: the historical points, exam findings, and any diagnostic results supporting the discharge/admit diagnosis, lab results, to return to the emergency department if symptoms worsen or persist or if there are any questions or concerns that arise at home. Response to treatment: the patient's symptoms have markedly improved after treatment, Patient with observed bowel movement after soap suds enema and drinking magnesium citrate. No complaints of abdominal pain. Will discharge to home for continued monitoring. 03/20 18:00 Order name: Basic Metabolic Panel; Complete Time: 19:15 cp 03/20 19:15 Interpretation: Normal except: CL 109; GFR 89. cp 03/20 18:00 Order name: CBC with Diff; Complete Time: 19:03 cp 03/20 19:03 Interpretation: Normal except: HCT 50.9; MCV 100.2; RDW 17.1; OZZY% 81.1; LYM% 10.0. cp 03/20 18:00 Order name: Hepatic Function; Complete Time: 19:15 cp 03/20 19:16 Interpretation: Normal except: AST 12. cp 03/20 18:00 Order name: Lipase; Complete Time: 19:15 cp 03/20 19:16 Interpretation: Reviewed. cp 03/20 18:00 Order name: IV Saline Lock; Complete Time: 18:01 cp 03/20 18:00 Order name: Labs collected and sent; Complete Time: 18:01 cp 03/20 18:00 Order name: Misc. Order: soap suds enema; Complete Time: 18:01 cp Administered Medications: 18:01 Drug: NS 0.9% 500 ml Route: IV; Rate: 500 bolus; Site: right forearm; iw 18:28 Follow up: Response: No adverse reaction; IV Status: Completed infusion; IV Intake: ll1 600ml 19:56 Follow up: IV Status: Completed infusion kc4 18:04 Drug: Magnesium Citrate Liquid 300 ml Route: PO; ll1 19:56 Follow up: Response: No adverse reaction kc4 Disposition: 03/21 19:04 Co-signature as Attending Physician, Raza Gore MD I agree with the assessment and rn plan of care. Attestation: The patient's history, exam findings, diagnostics, and a summary of any interventions or procedures was reviewed in detail with Kobe FIGUEROA. Disposition Summary: 03/20/21 19:26 Discharge Ordered Location: Home cp Problem: new cp Symptoms: are resolved cp Condition: Stable cp Diagnosis - Fecal impaction cp - Constipation, unspecified cp Followup: cp - With: Private Physician - When: 1 - 2 days - Reason: Worsening of condition Discharge Instructions: - Discharge Summary Sheet cp - Constipation, Adult cp - Fecal Impaction cp Forms: - Medication Reconciliation Form cp - Thank You Letter cp - Antibiotic Education cp - Prescription Opioid Use cp Prescriptions: - Miralax 17 gram Oral powder in packet - take 1 packet by ORAL route once daily As needed; 20 packet; Refills: 0, cp Product Selection Permitted Signatures: Dispatcher [employer] Libia Puckett RN RN iw Nieto, Roman, MD MD rn Page, Corey, PA PA cp Lewis, Lynsay, RN RN ll1 Lima Kinney kc4
--- NOTE | 2021-03-20 19:27 | ER ---
Nurse's Notes [facility] Name: Elver Tee Age: 80 yrs Sex: Male : 1940 Arrival Date: 03/20/2021 Time: 17:34 Bed 7 Private MD: Diagnosis: Fecal impaction;Constipation, unspecified Presentation: 03/20 17:35 Chief complaint: Patient states: Urge to have BM since noon. Significant rectal pain ll1 when trying, resolved at this time. Picked up at home, but had just been released from rehab at [facility] this week. No fever. EMS states: VSS 20 G R FA NS 200 ml bolus given. Coronavirus screen: Vaccine status: Patient reports receiving the 2nd dose of the covid vaccine. Client denies travel out of the [place] in the last 14 days. At this time, the client does not indicate any symptoms associated with coronavirus-19. Ebola Screen: Patient denies travel to an Ebola-affected area in the 21 days before illness onset. Initial Sepsis Screen: Does the patient meet any 2 criteria? No. Patient's initial sepsis screen is negative. Does the patient have a suspected source of infection? No. Patient's initial sepsis screen is negative. Risk Assessment: Do you want to hurt yourself or someone else? Patient reports no desire to harm self or others. Onset of symptoms was March 20, 2021. 17:35 Method Of Arrival: EMS ll1 17:35 Acuity: CUAUHTEMOC 3 ll1 Historical: - Allergies: 17:35 Bacitracin Zinc; ll1 17:35 Neomycin Sulfate; ll1 17:35 Polymyxin B Sulfate; ll1 - PMHx: 17:35 Bipolar disorder; Hypertensive disorder; Paranoid Schizophrenia; ll1 - Immunization history:: Client reports receiving the 2nd dose of the Covid vaccine. - Social history:: Smoking status: Patient denies any tobacco usage or history of. Screenin:41 Abuse screen: Denies threats or abuse. Nutritional screening: No deficits noted. ll1 Tuberculosis screening: No symptoms or risk factors identified. Fall Risk IV access (20 points). Total Kowalski Fall Scale indicates No Risk (0-24 pts). Assessment: 17:41 General: Appears in no apparent distress. Behavior is calm, cooperative, appropriate ll1 for age. Pain: Denies pain. Neuro: No deficits noted. Cardiovascular: No deficits noted. Respiratory: No deficits noted. GI: Abdomen is flat, Bowel sounds present X 4 quads. Abd is soft and non tender X 4 quads. Reports constipation. 18:29 Reassessment: No changes from previously documented assessment. Patient and/or family ll1 updated on plan of care and expected duration. Pain level reassessed. Patient is alert, oriented x 3, equal unlabored respirations, skin warm/dry/pink. Vital Signs: 17:35 BP 123 / 80; Pulse 67; Resp 17; Temp 97.9; Pulse Ox 95% on R/A; Weight 81.65 kg; Height ll1 6 ft. 0 in. (182.88 cm); Pain 0/10; 20:00 BP 118 / 74; Pulse 70; Resp 16; Temp 97.8(O); Pulse Ox 98% on R/A; Pain 0/10; kc4 17:35 Body Mass Index 24.41 (81.65 kg, 182.88 cm) ll1 ED Course: 17:34 Patient arrived in ED. ll1 17:35 Arm band placed on Patient placed in an exam room, on a stretcher. ll1 17:39 Patient has correct armband on for positive identification. Bed in low position. Call mh5 light in reach. Side rails up X2. Warm blanket given. Pulse ox on. NIBP on. 17:41 Triage completed. ll1 17:42 Kobe Blas PA is PHCP. cp 17:42 Raza Gore MD is Attending Physician. cp 17:42 Maintain EMS IV. Dressing intact. Good blood return noted. Site clean \T\ dry. Gauge \T\ ll 1 site: 20 R FA. 17:43 Robert Saeed, PENNIE is Primary Nurse. ll1 18:26 Soap suds enema given. Patient tolerated well manually disimpacted after soaps enema ll1 complete. To bedside commode.. 19:55 No provider procedures requiring assistance completed. IV discontinued, intact, kc4 bleeding controlled, No redness/swelling at site. Pressure dressing applied. Administered Medications: 18:01 Drug: NS 0.9% 500 ml Route: IV; Rate: 500 bolus; Site: right forearm; iw 18:28 Follow up: Response: No adverse reaction; IV Status: Completed infusion; IV Intake: ll1 600ml 19:56 Follow up: IV Status: Completed infusion kc4 18:04 Drug: Magnesium Citrate Liquid 300 ml Route: PO; ll1 19:56 Follow up: Response: No adverse reaction kc4 Intake: 18:28 IV: 600ml; Total: 600ml. ll1 Outcome: 19:26 Discharge ordered by MD. cp 19:54 Patient left the ED. kc4 19:55 Discharged to home via wheelchair. 4 19:55 Condition: stable 19:55 Discharge instructions given to patient, significant other, Instructed on discharge instructions, follow up and referral plans. Demonstrated understanding of instructions, follow-up care, medications. Signatures: Libia Draper RN RN Kobe Calle PA PA cp Martinez, Maria [facility] Robert Saeed RN RN ll1 Lima Kinney 4
[2021-03-20 20:00] VITALS: BP 123/80; TEMP 97.9; O2SAT 95
--- OUTSIDE RECORDS SUMMARY | 2021-03-29 11:57 | XMS REPORT | Continuity of Care Document ---
:1940 Author Organization [facility] t Address [address] [place] [address] [address] [place] [address] Care Team Providers Name Role Phone SARAHY GIL Attending Clinician Unavailable SARAHY GIL Attending Clinician Unavailable Alicia GODOY Attending Clinician Unavailable Sarahy Gil MD Attending Clinician 2, Lab Attending Clinician Unavailable Keith ALEGRIA Attending Clinician Unavailable Keith Alegria MD Attending Clinician Nurse, Pob Immunization Attending Clinician Unavailable UNKNOWN Attending Clinician Unavailable Donn [employer] Attending Clinician Unknown Attending Clinician Unavailable Care, 25 - Adult & Pedi Urgent Attending Clinician UnavailAmy Schulz Attending Clinician Unavailable JYOTI Attending Clinician Unavailable Jyoti HALL Attending Clinician Pob, Lab Main Attending Clinician Unavailable Doctor Unassigned, Name Attending Clinician Unavailable Renetta CASPER, T Attending Clinician Unavailable Comfort HOSKINS Attending Clinician Unavailable LETA VYAS Attending Clinician Unavailable Alicia Godoy MD Attending Clinician 1, Lab Attending Clinician Unavailable Payers Payer Name Policy Type Policy Number Effective Date Expiration Date [facility] MEDICARE B GAROAD [id number] 2003 00:00:00 [facility] [id number] 2006 MEDICARE SUPPLEMENT 00:00:00 Advance Directives Directive Decision Effective Termination Comments Source Date Date Healthcare Agents on N/A [facility] FileNameRelationshipHealthcare of [place] Agent Medical RelationshipCommunicationWillodean Branch [facility] [phone] (Mobile) Problems Condition Condition Condition Status Onset Resolution Last Treating Co mments Source Name Details Category Date Date Treatment Clinician Date 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 -18 ity of 00:00: [address] 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 sm in male sm in male 30 it y of 00:00: [address] Gynecomast Gynecomast Disease Active U nivers ia ia 3-04 ity of 00:00: [address] Elevated Elevated Disease Active Unive rs prolactin prolactin 3-04 ity of level level 00:00: [address] Allergies, Adverse Reactions, Alerts Allergy Allergy Status Severity Reaction(s) Onset Inactive Treating Comm ents Source Name Type Date Date Clinician NO KNOWN Drug Active Univers ALLERGIE Class ity of [facility] [place] [facility] Family History Family Member Diagnosis Comments Start Date Stop Date Source Family member Thyroid [facility] Social History Social Habit Start Date Stop Date Quantity Comments Source Exposure to Not sure [facility] SARS-CoV-2 [facility] (event) [place] Alcohol intake 2020-02-02 2020-02-02 Current drinker of Un iversity of 00:00:00 00:00:00 alcohol (finding) [facility] [place] [place] edical [place] Tobacco use and 2020-02-02 2020-02-02 Never used Universit y of exposure 00:00:00 00:00:00 [place] [facility] Alcohol Comment 2018-03-21 2018-03-21 occaisonal wine Univ ersity of 00:00:00 00:00:00 [place] [facility] Sex Ass[birth year] At [birth year] Universit y of 00:00:00 00:00:00 [place] [facility] Smoking Status Start Date Stop Date Source Never smoker [facility] Medications Ordered Filled Start Stop Current Ordering Indication Dosage Frequency Signature Comments Components Source Medication Medication Date Date Medication? Clinician (SIG) Name Name clonazePAM Yes [id number] .5mg Take 1 U nivers 0.5 mg 6-04 tablet by ity of tablet 00:00: mouth at [place] [address] bedtime. [facility] clonazePAM Yes [id number] .5mg Take 1 U nivers 0.5 mg 6-04 tablet by ity of tablet 00:00: mouth at [place] 00 bedtime. Medical Branch rivaroxaban Yes Take by Un jhonatan (XARELTO) 4-30 mouth. ity of 20 mg 15:40: [place] tablet 28 Medical Branch rivaroxaban Yes Take by Un jhonatan (XARELTO) 4-30 mouth. ity of 20 mg 15:40: [place] tablet 28 Medical Branch rivaroxaban Yes Take by Un jhonatan (XARELTO) 4-30 mouth. ity of 20 mg 15:40: [place] tablet 28 Medical Branch rivaroxaban Yes Take by Un jhonatan (XARELTO) 4-30 mouth. ity of 20 mg 15:40: [place] tablet 28 Medical Branch rivaroxaban Yes Take by Un jhonatan (XARELTO) 4-30 mouth. ity of 20 mg 15:40: [place] tablet 28 Medical Branch divalproex Yes [id number] 500mg Take 2 Univers ER 250 mg 4-30 tablets by ity of 24 hr 00:00: mouth at [place] tablet 00 bedtime. Medical Branch mirtazapine Yes [id number] 7.5mg Take 1 Univers 7.5 mg 4-30 105 tablet by ity of tablet 00:00: mouth at [place] 00 bedtime. Medical Branch paliperidon Yes [id number] TAKE 1 Univers e 3 mg 24 4-30 TABLET BY ity o f hour tablet 00:00: MOUTH ONCE [place] 00 DAILY Medical Branch divalproex Yes [id number] 500mg Take 2 Univers ER 250 mg 4-30 tablets by ity of 24 hr 00:00: mouth at [place] tablet 00 bedtime. Medical Branch mirtazapine Yes [id number] 7.5mg Take 1 Univers 7.5 mg 4-30 105 tablet by ity of tablet 00:00: mouth at [place] 00 bedtime. Medical Branch paliperidon Yes [id number] TAKE 1 Univers e 3 mg 24 4-30 TABLET BY ity o f hour tablet 00:00: MOUTH ONCE [place] 00 DAILY Medical Branch divalproex Yes [id number] 500mg Take 2 Univers ER 250 mg 4-30 tablets by ity of 24 hr 00:00: mouth at [place] tablet 00 bedtime. Medical Branch mirtazapine 0 Yes [id number] 7.5mg Take 1 Univers 7.5 mg 4-30 105 tablet by ity of tablet 00:00: mouth at [place] 00 bedtime. Medical Branch paliperidon 2020-0 Yes [id number] TAKE 1 Univers e 3 mg 24 4-30 TABLET BY ity o f hour tablet 00:00: MOUTH ONCE [place] 00 DAILY Medical Branch divalproex 2020-0 Yes [id number] 500mg Take 2 Univers ER 250 mg 4-30 tablets by ity of 24 hr 00:00: mouth at [place] tablet 00 bedtime. Medical Branch mirtazapine Yes [id number] 7.5mg Take 1 Univers 7.5 mg 4-30 105 tablet by ity of tablet 00:00: mouth at [place] 00 bedtime. Medical Branch paliperidon 0 Yes [id number] TAKE 1 Univers e 3 mg 24 4-30 TABLET BY ity o f hour tablet 00:00: MOUTH ONCE [place] 00 DAILY Medical Branch divalproex 2020-0 Yes [id number] 500mg Take 2 Univers ER 250 mg 4-30 tablets by ity of 24 hr 00:00: mouth at [place] tablet 00 bedtime. Medical Branch mirtazapine Yes [id number] 7.5mg Take 1 Univers 7.5 mg 4-30 105 tablet by ity of tablet 00:00: mouth at [place] 00 bedtime. Medical Branch paliperidon 0 Yes [id number] TAKE 1 Univers e 3 mg 24 4-30 TABLET BY ity o f hour tablet 00:00: MOUTH ONCE [place] 00 DAILY Medical Branch divalproex 2020-0 2020- No [id number] 500mg Take 2 Univers ER 250 mg 4-30 04-30 tablets by ity of 24 hr 00:00: 00:00 mouth at [place] tablet 00 :00 bedtime. Medical Branch divalproex 2020- No [id number] 500mg Take 2 Univers ER 250 mg 4-30 04-30 tablets by ity of 24 hr 00:00: 00:00 mouth at [place] tablet 00 :00 bedtime. Medical Branch divalproex 2020- No [id number] 500mg Take 2 Univers ER 250 mg 4-30 04-30 tablets by ity of 24 hr 00:00: 00:00 mouth at [place] tablet 00 :00 bedtime. Medical Branch divalproex 2020-0 Yes [id number] 500mg Take 1 Univers ER 500 mg 4-08 tablet by ity o f 24 hr 00:00: mouth [place] tablet 00 every 24 Medical (twenty-fo Branch ur) hours. divalproex 2020-0 Yes [id number] 500mg Take 1 Univers ER 500 mg 4-08 tablet by ity o f 24 hr 00:00: mouth [place] tablet 00 every 24 Medical (twenty-fo Branch ur) hours. divalproex 2020-0 2020- No [id number] 500mg Take 1 Univers ER 500 mg 4-08 04-30 tablet by ity of 24 hr 00:00: 00:00 mouth [place] tablet 00 :00 every 24 Medical (twenty-fo Branch ur) hours. divalproex 2020-0 2020- No [id number] 500mg Take 1 Univers ER 500 mg 4-08 04-30 tablet by ity of 24 hr 00:00: 00:00 mouth [place] tablet 00 :00 every 24 Medical (twenty-fo Branch ur) hours. divalproex 2020-0 2020- No [id number] 500mg Take 1 Univers ER 500 mg 4-08 04-30 tablet by ity of 24 hr 00:00: 00:00 mouth [place] tablet 00 :00 every 24 Medical (twenty-fo Branch ur) hours. clonazePAM 2020-0 Yes [id number] .5mg Take 1 U nivers 0.5 mg 3-04 tablet by ity of tablet 00:00: mouth at [place] 00 bedtime. Medical Branch clonazePAM 2020-0 Yes [id number] .5mg Take 1 U nivers 0.5 mg 3-04 tablet by ity of tablet 00:00: mouth at [place] 00 bedtime. Medical Branch clonazePAM 2020-0 Yes [id number] .5mg Take 1 U nivers 0.5 mg 3-04 tablet by ity of tablet 00:00: mouth at [place] 00 bedtime. Medical Branch clonazePAM 2020-0 Yes [id number] .5mg Take 1 U nivers 0.5 mg 3-04 tablet by ity of tablet 00:00: mouth at [place] [address] bedtime. Medical Branch clonazePAM 2020-0 Yes [id number] .5mg Take 1 U nivers 0.5 mg 3-04 tablet by ity of tablet 00:00: mouth at [place] [address] bedtime. Medical Branch clonazePAM 2020-0 Yes [id number] .5mg Take 1 U nivers 0.5 mg 3-04 tablet by ity of tablet 00:00: mouth at [place] [address] bedtime. Medical Branch clonazePAM 2020-0 Yes [id number] .5mg Take 1 U nivers 0.5 mg 3-04 tablet by ity of tablet 00:00: mouth at [place] [address] bedtime. Medical Branch clonazePAM 2020-0 Yes [id number] .5mg Take 1 U nivers 0.5 mg 3-04 tablet by ity of tablet 00:00: mouth at [place] [address] bedtime. Medical Branch clonazePAM 2020-0 Yes [id number] .5mg Take 1 U nivers 0.5 mg 3-04 tablet by ity of tablet 00:00: mouth at [place] [address] bedtime. Medical Branch clonazePAM 2020-0 Yes [id number] .5mg Take 1 U nivers 0.5 mg 3-04 tablet by ity of tablet 00:00: mouth at [place] [address] bedtime. Medical Branch clonazePAM 2020-0 1- No [id number] .5mg Take 1 Univers 0.5 mg 3-04 06-04 tablet by ity of tablet 00:00: 00:00 mouth at [place] 00 :00 bedtime. Medical Branch clonazePAM 2020-0 1- No [id number] .5mg Take 1 Univers 0.5 mg 3-04 06-04 tablet by ity of tablet 00:00: 00:00 mouth at [place] 00 :00 bedtime. Medical Branch paliperidon 2020-0 Yes [id number] TAKE 1 Univers e 3 mg 24 2-26 TABLET BY ity o f hour tablet 00:00: MOUTH ONCE [place] DAILY Medical Branch paliperidon 2020-0 Yes [id number] TAKE 1 Univers e 3 mg 24 2-26 TABLET BY ity o f hour tablet 00:00: MOUTH ONCE [place] DAILY Medical Branch paliperidon 2020-0 Yes [id number] TAKE 1 Univers e 3 mg 24 2-26 TABLET BY ity o f hour tablet 00:00: MOUTH ONCE DAILY Medical Branch paliperidon Yes [id number] TAKE 1 Univers e 3 mg 24 2-26 TABLET BY ity o f hour tablet 00:00: MOUTH ONCE DAILY Medical Branch paliperidon Yes [id number] TAKE 1 Univers e 3 mg 24 2-26 TABLET BY ity o f hour tablet 00:00: MOUTH ONCE DAILY Medical Branch paliperidon Yes [id number] TAKE 1 Univers e 3 mg 24 2-26 TABLET BY ity o f hour tablet 00:00: MOUTH ONCE DAILY Medical Branch paliperidon Yes [id number] TAKE 1 Univers e 3 mg 24 2-26 TABLET BY ity o f hour tablet 00:00: MOUTH ONCE DAILY Medical Branch paliperidon Yes [id number] TAKE 1 Univers e 3 mg 24 2-26 TABLET BY ity o f hour tablet 00:00: MOUTH ONCE DAILY Medical Branch paliperidon 2020-2020- No [id number] TAKE 1 Univers e 3 mg 24 2-26 04-30 TABLET BY ity of hour tablet 00:00: 00:00 MOUTH ONCE [place] 00 :00 DAILY Medical Branch paliperidon 2020-2020- No [id number] TAKE 1 Univers e 3 mg 24 2-26 04-30 TABLET BY ity of hour tablet 00:00: 00:00 MOUTH ONCE [place] 00 :00 DAILY Medical Branch paliperidon 2020-2020- No [id number] TAKE 1 Univers e 3 mg 24 2-26 04-30 TABLET BY ity of hour tablet 00:00: 00:00 MOUTH ONCE [place] 00 :00 DAILY Medical Branch XARELTO 0 Yes 10mg Take 10 mg Univ ers tablet 2-08 by mouth ity of 00:00: daily. Medical Branch XARELTO Yes 10mg Take 10 mg Univ ers tablet 2-08 by mouth ity of 00:00: daily. Medical Branch XARELTO Yes 10mg Take 10 mg Univ ers tablet 2-08 by mouth ity of 00:00: daily. Medical Branch XARELTO Yes 10mg Take 10 mg Univ ers tablet 2-08 by mouth ity of 00:00: daily. Medical Branch XARELTO 2021-0 Yes 10mg Take 10 mg Univ ers tablet 2-08 by mouth ity of 00:00: daily. Medical Branch XARELTO 2020-0 Yes 10mg Take 10 mg Univ ers tablet 2-08 by mouth ity of 00:00: daily. Medical Branch XARELTO 2020-0 Yes 10mg Take 10 mg Univ ers tablet 2-08 by mouth ity of 00:00: daily. Medical Branch XARELTO 2020-0 Yes 10mg Take 10 mg Univ ers tablet 2-08 by mouth ity of 00:00: daily. Medical Branch XARELTO 2020-0 Yes 10mg Take 10 mg Univ ers tablet 2-08 by mouth ity of 00:00: daily. Medical Branch XARELTO 2020-0 Yes 10mg Take 10 mg Univ ers tablet 2-08 by mouth ity of 00:00: daily. Medical Branch XARELTO 2020-0 Yes 10mg Take 10 mg Univ ers tablet 2-08 by mouth ity of 00:00: daily. Medical Branch paliperidon 2020-0 Yes [id number] TAKE 1 Univers e 3 mg 24 1-22 TABLET BY ity o f hour tablet 00:00: MOUTH ONCE [place] 00 DAILY Medical Branch mirtazapine 2020-0 Yes [id number] 7.5mg Take 1 Univers 7.5 mg 1-22 105 tablet by ity of tablet 00:00: mouth at [place] [address] bedtime. Medical Branch mirtazapine 2020-0 Yes [id number] 7.5mg Take 1 Univers 7.5 mg 1-22 105 tablet by ity of tablet 00:00: mouth at [place] 00 bedtime. Medical Branch mirtazapine 2020-0 Yes [id number] 7.5mg Take 1 Univers 7.5 mg 1-22 105 tablet by ity of tablet 00:00: mouth at [place] 00 bedtime. Medical Branch mirtazapine 2020-0 Yes [id number] 7.5mg Take 1 Univers 7.5 mg 1-22 105 tablet by ity of tablet 00:00: mouth at [place] 00 bedtime. Medical Branch mirtazapine 2020-0 Yes [id number] 7.5mg Take 1 Univers 7.5 mg 1-22 105 tablet by ity of tablet 00:00: mouth at [place] [address] bedtime. Medical Branch mirtazapine Yes [id number] 7.5mg Take 1 Univers 7.5 mg 1-22 105 tablet by ity of tablet 00:00: mouth at [place] 00 bedtime. Medical Branch mirtazapine 0 Yes [id number] 7.5mg Take 1 Univers 7.5 mg 1-22 105 tablet by ity of tablet 00:00: mouth at [place] [address] bedtime. Medical Branch mirtazapine 0 Yes [id number] 7.5mg Take 1 Univers 7.5 mg 1-22 105 tablet by ity of tablet 00:00: mouth at [place] [address] bedtime. Medical Branch mirtazapine Yes [id number] 7.5mg Take 1 Univers 7.5 mg 1-22 105 tablet by ity of tablet 00:00: mouth at [place] [address] bedtime. Medical Branch propranoloL 2020- No [id number] 10mg Take 1 Univers 10 mg 1-22 07-22 tablet by ity of tablet 00:00: 04:59 mouth 2 [place] 00 :00 (two) Medical times Branch daily as needed (tremor) for up to 180 days. propranoloL 2020- No [id number] 10mg Take 1 Univers 10 mg 1-22 07-22 tablet by ity of tablet 00:00: 04:59 mouth 2 [place] 00 :00 (two) Medical times Branch daily as needed (tremor) for up to 180 days. propranoloL 2020- No [id number] 10mg Take 1 Univers 10 mg 1-22 07-22 tablet by ity of tablet 00:00: 04:59 mouth 2 [place] 00 :00 (two) Medical times Branch daily as needed (tremor) for up to 180 days. propranoloL 2020- No [id number] 10mg Take 1 Univers 10 mg 1-22 07-22 tablet by ity of tablet 00:00: 04:59 mouth 2 [place] 00 :00 (two) Medical times Branch daily as needed (tremor) for up to 180 days. propranoloL 2020- No [id number] 10mg Take 1 Univers 10 mg 1-22 07-22 tablet by ity of tablet 00:00: 04:59 mouth 2 [place] 00 :00 (two) Medical times Branch daily as needed (tremor) for up to 180 days. propranoloL 2020- No [id number] 10mg Take 1 Univers 10 mg 1-22 07-22 tablet by ity of tablet 00:00: 04:59 mouth 2 [place] 00 :00 (two) Medical times Branch daily as needed (tremor) for up to 180 days. propranoloL 2020- No [id number] 10mg Take 1 Univers 10 mg 1-22 07-22 tablet by ity of tablet 00:00: 04:59 mouth 2 [place] 00 :00 (two) Medical times Branch daily as needed (tremor) for up to 180 days. propranoloL 2020- No [id number] 10mg Take 1 Univers 10 mg 1-22 07-22 tablet by ity of tablet 00:00: 04:59 mouth 2 [place] 00 :00 (two) Medical times Branch daily as needed (tremor) for up to 180 days. propranoloL 2020- No [id number] 10mg Take 1 Univers 10 mg 1-22 07-22 tablet by ity of tablet 00:00: 04:59 mouth 2 [place] 00 :00 (two) Medical times Branch daily as needed (tremor) for up to 180 days. propranoloL 2020- No [id number] 10mg Take 1 Univers 10 mg 1-22 07-22 tablet by ity of tablet 00:00: 04:59 mouth 2 [place] 00 :00 (two) Medical times Branch daily as needed (tremor) for up to 180 days. propranoloL 2020- No [id number] 10mg Take 1 Univers 10 mg 1-22 07-22 tablet by ity of tablet 00:00: 04:59 mouth 2 [place] 00 :00 (two) Medical times Branch daily as needed (tremor) for up to 180 days. propranoloL 2020- No [id number] 10mg Take 1 Univers 10 mg 1-22 07-22 tablet by ity of tablet 00:00: 04:59 mouth 2 [place] 00 :00 (two) Medical times Branch daily as needed (tremor) for up to 180 days. propranoloL 2020- No [id number] 10mg Take 1 Univers 10 mg 1-22 07-22 tablet by ity of tablet 00:00: 04:59 mouth 2 [place] 00 :00 (two) Medical times Branch daily as needed (tremor) for up to 180 days. propranoloL 2020- No [id number] 10mg Take 1 Univers 10 mg -05 12-22 tablet by ity of tablet 00:00: 04:59 mouth 2 [place] 00 :00 (two) Medical times Branch daily as needed (tremor) for up to 180 days. mirtazapine 2020- No [id number] 7.5mg Take 1 Univers 7.5 mg -05 09-30 105 tablet by ity of tablet 00:00: 00:00 mouth at [place] 00 :00 bedtime. Medical Branch mirtazapine 2020- No [id number] 7.5mg Take 1 Univers 7.5 mg -05 09-30 105 tablet by ity of tablet 00:00: 00:00 mouth at [place] 00 :00 bedtime. Medical Branch mirtazapine 2020- No [id number] 7.5mg Take 1 Univers 7.5 mg -05 09-30 105 tablet by ity of tablet 00:00: 00:00 mouth at [place] 00 :00 bedtime. Medical Branch divalproex 2019- Yes [id number] 500mg Take 2 Univers ER 250 mg 2-26 tablets by ity of 24 hr 00:00: mouth at [place] tablet 00 bedtime. Medical Branch divalproex 2019-05- No [id number] 500mg Take 2 Univers ER 250 mg 2-26 -06 tablets by ity of 24 hr 00:00: 05:59 mouth at [place] tablet 00 :00 bedtime Medical for 10 Branch days. divalproex 2019- Yes [id number] 500mg Take 2 Univers ER 250 mg 1-13 tablets by ity of 24 hr 00:00: mouth at [place] tablet 00 bedtime. Medical Branch divalproex 2019- Yes [id number] 500mg Take 2 Univers ER 250 mg 1-13 tablets by ity of 24 hr 00:00: mouth at [place] tablet 00 bedtime. Medical Branch divalproex 2019- Yes [id number] 500mg Take 2 Univers ER 250 mg 1-13 tablets by ity of 24 hr 00:00: mouth at [place] tablet 00 bedtime. Medical Branch divalproex 2019- Yes [id number] 500mg Take 2 Univers ER 250 mg 1-13 tablets by ity of 24 hr 00:00: mouth at [place] tablet 00 bedtime. Medical Branch clonazePAM 2020-1 Yes [id number] .5mg Take 1 U nivers 0.5 mg 1-03 tablet by ity of tablet 00:00: mouth at [place] [address] bedtime. Medical Branch mirtazapine 2020-1 Yes [id number] 7.5mg Take 1 Univers 7.5 mg 1-03 105 tablet by ity of tablet 00:00: mouth at [place] 00 bedtime. Medical Branch paliperidon 2020-1 Yes [id number] TAKE 1 Univers e 3 mg 24 1-03 TABLET BY ity o f hour tablet 00:00: MOUTH ONCE [place] DAILY Medical Branch clonazePAM 2020- Yes [id number] .5mg Take 1 U nivers 0.5 mg 1-03 tablet by ity of tablet 00:00: mouth at [place] [address] bedtime. Medical Branch mirtazapine 2020- Yes [id number] 7.5mg Take 1 Univers 7.5 mg 1-03 105 tablet by ity of tablet 00:00: mouth at [place] 00 bedtime. Medical Branch paliperidon 2019-1 Yes [id number] TAKE 1 Univers e 3 mg 24 1-03 TABLET BY ity o f hour tablet 00:00: MOUTH ONCE [place] DAILY Medical Branch clonazePAM 2020-1 Yes [id number] .5mg Take 1 U nivers 0.5 mg 1-03 tablet by ity of tablet 00:00: mouth at [place] [address] bedtime. Medical Branch mirtazapine 2020- Yes [id number] 7.5mg Take 1 Univers 7.5 mg 1-03 105 tablet by ity of tablet 00:00: mouth at [place] 00 bedtime. Medical Branch paliperidon 2020-1 Yes [id number] TAKE 1 Univers e 3 mg 24 1-03 TABLET BY ity o f hour tablet 00:00: MOUTH ONCE [place] DAILY Medical Branch clonazePAM 2020-1 Yes [id number] .5mg Take 1 U nivers 0.5 mg 1-03 tablet by ity of tablet 00:00: mouth at [place] [address] bedtime. Medical Branch clonazePAM 2020-1 Yes [id number] .5mg Take 1 U nivers 0.5 mg 1-03 tablet by ity of tablet 00:00: mouth at [place] 00 bedtime. Medical Branch clonazePAM 2020-1 Yes [id number] .5mg Take 1 U nivers 0.5 mg 1-03 tablet by ity of tablet 00:00: mouth at [place] 00 bedtime. Medical Branch mirtazapine 2020- Yes [id number] 7.5mg Take 1 Univers 7.5 mg 1-03 105 tablet by ity of tablet 00:00: mouth at [place] 00 bedtime. Medical Branch clonazePAM 2020- Yes [id number] .5mg Take 1 U nivers 0.5 mg 1-03 tablet by ity of tablet 00:00: mouth at [place] 00 bedtime. Medical Branch mirtazapine 2020- Yes [id number] 7.5mg Take 1 Univers 7.5 mg 1-03 105 tablet by ity of tablet 00:00: mouth at [place] 00 bedtime. Medical Branch paliperidon 2019- Yes [id number] TAKE 1 Univers e 3 mg 24 1-03 TABLET BY ity o f hour tablet 00:00: MOUTH ONCE [place] 00 DAILY Medical Branch clonazePAM 2020- Yes [id number] .5mg Take 1 U nivers 0.5 mg 1-03 tablet by ity of tablet 00:00: mouth at [place] [address] bedtime. Medical Branch mirtazapine 2019- Yes [id number] 7.5mg Take 1 Univers 7.5 mg 1-03 105 tablet by ity of tablet 00:00: mouth at [place] 00 bedtime. Medical Branch paliperidon 2019- Yes [id number] TAKE 1 Univers e 3 mg 24 1-03 TABLET BY ity o f hour tablet 00:00: MOUTH ONCE [place] 00 DAILY Medical Branch clonazePAM 2020- Yes [id number] .5mg Take 1 U nivers 0.5 mg 1-03 tablet by ity of tablet 00:00: mouth at [place] 00 bedtime. Medical Branch mirtazapine 2019- Yes [id number] 7.5mg Take 1 Univers 7.5 mg 1-03 105 tablet by ity of tablet 00:00: mouth at [place] 00 bedtime. Medical Branch paliperidon 2020- Yes [id number] TAKE 1 Univers e 3 mg 24 1-03 TABLET BY ity o f hour tablet 00:00: MOUTH ONCE [place] 00 DAILY Medical Branch clonazePAM 2020- Yes [id number] .5mg Take 1 U nivers 0.5 mg 1-03 tablet by ity of tablet 00:00: mouth at [place] 00 bedtime. Medical Branch mirtazapine 2020-1 Yes [id number] 7.5mg Take 1 Univers 7.5 mg 1-03 105 tablet by ity of tablet 00:00: mouth at [place] 00 bedtime. Medical Branch paliperidon 2020-1 Yes [id number] TAKE 1 Univers e 3 mg 24 1-03 TABLET BY ity o f hour tablet 00:00: MOUTH ONCE [place] 00 DAILY Medical Branch clonazePAM 2020-1 Yes [id number] .5mg Take 1 U nivers 0.5 mg 1-03 tablet by ity of tablet 00:00: mouth at [place] 00 bedtime. Medical Branch mirtazapine 2019- Yes [id number] 7.5mg Take 1 Univers 7.5 mg 1-03 105 tablet by ity of tablet 00:00: mouth at [place] 00 bedtime. Medical Branch paliperidon 2020-1 Yes [id number] TAKE 1 Univers e 3 mg 24 1-03 TABLET BY ity o f hour tablet 00:00: MOUTH ONCE [place] DAILY Medical Branch clonazePAM 2020-1 Yes [id number] .5mg Take 1 U nivers 0.5 mg 1-03 tablet by ity of tablet 00:00: mouth at [place] 00 bedtime. Medical Branch mirtazapine 2019- Yes [id number] 7.5mg Take 1 Univers 7.5 mg 1-03 105 tablet by ity of tablet 00:00: mouth at [place] 00 bedtime. Medical Branch paliperidon 2019-1 Yes [id number] TAKE 1 Univers e 3 mg 24 1-03 TABLET BY ity o f hour tablet 00:00: MOUTH ONCE [place] 00 DAILY Medical Branch mirtazapine 2020-1 Yes [id number] 7.5mg Take 1 Univers 7.5 mg 0-30 105 tablet by ity of tablet 00:00: mouth at [place] 00 bedtime. Medical Branch mirtazapine 2020- Yes [id number] 7.5mg Take 1 Univers 7.5 mg 0-02 105 tablet by ity of tablet 00:00: mouth at [place] 00 bedtime. Medical Branch mirtazapine 2020-1 Yes [id number] 7.5mg Take 1 Univers 7.5 mg 0-02 105 tablet by ity of tablet 00:00: mouth at [place] 00 bedtime. Medical Branch propranolol 2020-0 Yes [id number] 10mg Take 1 Univers 10 mg 8-03 tablet by ity of tablet 00:00: mouth 2 (two) Medical times Branch daily as needed (tremor). propranolol 2020-0 Yes [id number] 10mg Take 1 Univers 10 mg 8-03 tablet by ity of tablet 00:00: mouth (two) Medical times Branch daily as needed (tremor). propranolol 2020-0 Yes [id number] 10mg Take 1 Univers 10 mg 8-03 tablet by ity of tablet 00:00: mouth (two) Medical times Branch daily as needed (tremor). propranolol 2020-0 Yes [id number] 10mg Take 1 Univers 10 mg 8-03 tablet by ity of tablet 00:00: mouth (two) Medical times Branch daily as needed (tremor). propranolol 2020-0 Yes [id number] 10mg Take 1 Univers 10 mg 8-03 tablet by ity of tablet 00:00: mouth (two) Medical times Branch daily as needed (tremor). propranolol 2020-0 Yes [id number] 10mg Take 1 Univers 10 mg 8-03 tablet by ity of tablet 00:00: mouth (two) Medical times Branch daily as needed (tremor). propranolol 2020-0 Yes [id number] 10mg Take 1 [facility] 10 [facility]-03 tablet by [facility] tablet 00:00: mouth (two) Medical times [facility] daily as needed (tremor). propranolol 2020-0 Yes [id number] 10mg Take 1 [facility] 10 mg 8-03 tablet by [facility] tablet 00:00: mouth (two) [facility] times [facility] daily as needed (tremor). propranolol 2020-0 Yes [id number] 10mg Take 1 [facility] 10 mg 8-03 tablet by [facility] tablet 00:00: mouth (two) Medical times [facility] daily as needed (tremor). propranolol 2020-0 Yes [id number] 10mg Take 1 [facility] 10 mg 8-03 tablet by [facility] tablet 00:00: mouth (two) Medical times [facility] daily as needed (tremor). propranolol 2020-0 Yes [id number] 10mg Take 1 [facility] 10 mg 8-03 tablet by [facility] tablet 00:00: mouth (two) Medical times [facility] daily as needed (tremor). propranolol 2020-0 Yes [id number] 10mg Take 1 [facility] 10 mg 8-03 tablet by [facility] tablet 00:00: mouth 2 (two) Medical times [facility] daily as needed (tremor). propranolol 2020-0 Yes [id number] 10mg Take 1 [facility] 10 mg 8-03 tablet by [facility] tablet 00:00: mouth 2 (two) Medical times [facility] daily as needed (tremor). propranolol 2020-0 Yes [id number] 10mg Take 1 [facility] 10 mg 8-03 tablet by [facility] tablet 00:00: mouth 2 (two) Medical times [facility] daily as needed (tremor). propranolol 2020-0 Yes [id number] 10mg Take 1 [facility] 10 mg 8-03 tablet by [facility] tablet 00:00: mouth (two) Medical times [facility] daily as needed (tremor). propranolol 2020-0 Yes [id number] 10mg Take 1 [facility] 10 mg 8-03 tablet by [facility] tablet 00:00: mouth (two) [facility] times [facility] daily as needed (tremor). propranolol 2020-0 Yes [id number] 10mg Take 1 [facility] 10 mg 8-03 tablet by [facility] tablet 00:00: mouth (two) Medical times [facility] daily as needed (tremor). propranolol 2020-0 Yes [id number] 10mg Take 1 [facility] 10 mg 8-03 tablet by [facility] tablet 00:00: mouth (two) [facility] times [facility] daily as needed (tremor). propranolol 2020-0 Yes [id number] 10mg Take 1 [facility] 10 mg 8-03 tablet by [facility] tablet 00:00: mouth (two) Medical times [facility] daily as needed (tremor). propranolol 2020-0 Yes [id number] 10mg Take 1 [facility] 10 mg 8-03 tablet by [facility] tablet 00:00: mouth (two) Medical times [facility] daily as needed (tremor). propranolol 2020-0 Yes [id number] 10mg Take 1 [facility] 10 mg 8-03 tablet by [facility] tablet 00:00: mouth 2 (two) Medical times [facility] daily as needed (tremor). propranolol 2020-0 Yes [id number] 10mg Take 1 [facility] 10 mg 8-03 tablet by [facility] tablet 00:00: mouth 2 (two) Medical times [facility] daily as needed (tremor). propranolol 2020-0 Yes [id number] 10mg Take 1 [facility] 10 mg 8-03 tablet by [facility] tablet 00:00: mouth 2 (two) Medical times [facility] daily as needed (tremor). propranolol 2020-0 Yes [id number] 10mg Take 1 [facility] 10 mg 8-03 tablet by [facility] tablet 00:00: mouth 2 (two) Medical times [facility] daily as needed (tremor). propranolol 2020-0 Yes [id number] 10mg Take 1 [facility] 10 mg 8-03 tablet by [facility] tablet 00:00: mouth 2 (two) Medical times [facility] daily as needed (tremor). propranolol 2020-0 Yes [id number] 10mg Take 1 [facility] 10 mg 8-03 tablet by [facility] tablet 00:00: mouth 2 (two) Medical times [facility] daily as needed (tremor). propranolol 2020-0 Yes [id number] 10mg Take 1 [facility] 10 mg 8-03 tablet by [facility] tablet 00:00: mouth (two) Medical times [facility] daily as needed (tremor). propranolol 2020-0 Yes [id number] 10mg Take 1 [facility] 10 mg 8-03 tablet by [facility] tablet 00:00: mouth (two) Medical times [facility] daily as needed (tremor). propranolol 2020-0 Yes [id number] 10mg Take 1 [facility] 10 mg 8-03 tablet by [facility] tablet 00:00: mouth (two) Medical times [facility] daily as needed (tremor). propranolol 2020-0 Yes [id number] 10mg Take 1 [facility] 10 mg 8-03 tablet by [facility] tablet 00:00: mouth 2 (two) Medical times [facility] daily as needed (tremor). propranolol 2020-0 Yes [id number] 10mg Take 1 [facility] 10 mg 8-03 tablet by [facility] tablet 00:00: mouth (two) Medical times [facility] daily as needed (tremor). divalproex 2020-0 Yes [id number] 500mg Take 2 [facility] 250 mg 7-14 tablets by [facility] 24 hr 00:00: mouth at [place] tablet 00 bedtime. [facility] divalproex 2020-0 Yes [id number] 500mg Take 2 [facility] 250 mg 7-14 tablets by [facility] 24 hr 00:00: mouth at [place] tablet 00 bedtime. [facility] divalproex 2020-0 Yes [id number] 500mg Take 2 [facility] 250 mg 7-14 tablets by [facility] 24 hr 00:00: mouth at [place] tablet 00 bedtime. [facility] divalproex 2020-0 Yes [id number] 500mg Take 2 [facility] 250 mg 7-14 tablets by [facility] 24 hr 00:00: mouth at [place] tablet 00 bedtime. [facility] divalproex 2020-0 Yes [id number] 500mg Take 2 [facility] 250 mg 7-14 tablets by [facility] 24 hr 00:00: mouth at [place] tablet 00 bedtime. [facility] divalproex 2020-0 Yes [id number] 500mg Take 2 [facility] 250 mg 7-14 tablets by [facility] 24 hr 00:00: mouth at [place] tablet 00 bedtime. [facility] divalproex 2020-0 Yes [id number] 500mg Take 2 [facility] 250 mg 7-14 tablets by [facility] 24 hr 00:00: mouth at [place] tablet 00 bedtime. [facility] divalproex 2020-0 Yes [id number] 500mg Take 2 [facility] 250 mg 7-14 tablets by [facility] 24 hr 00:00: mouth at [place] tablet 00 bedtime. [facility] divalproex 2020-0 Yes [id number] 500mg Take 2 [facility] 250 mg 7-14 tablets by [facility] 24 hr 00:00: mouth at [place] tablet 00 bedtime. [facility] divalproex 2020-0 Yes [id number] 500mg Take 2 [facility] 250 mg 7-14 tablets by [facility] 24 hr 00:00: mouth at [place] tablet 00 bedtime. [facility] divalproex 2020-0 Yes [id number] 500mg Take 2 [facility] 250 mg 7-14 tablets by [facility] 24 hr 00:00: mouth at [place] tablet 00 bedtime. [facility] divalproex 2020-0 Yes [id number] 500mg Take 2 [facility] 250 mg 7-14 tablets by [facility] 24 hr 00:00: mouth at [place] tablet 00 bedtime. [facility] divalproex 2020-0 Yes [id number] 500mg Take 2 [facility] 250 mg 7-14 tablets by [facility] 24 hr 00:00: mouth at [place] tablet 00 bedtime. [facility] divalproex 2020-0 Yes [id number] 500mg Take 2 [facility] 250 mg 7-14 tablets by [facility] 24 hr 00:00: mouth at [place] tablet 00 bedtime. [facility] divalproex 2020-0 Yes [id number] 500mg Take 2 [facility] 250 mg 7-14 tablets by [facility] 24 hr 00:00: mouth at [place] tablet 00 bedtime. [facility] divalproex 2020-0 Yes [id number] 500mg Take 2 [facility] 250 mg 7-14 tablets by [facility] 24 hr 00:00: mouth at [place] tablet 00 bedtime. [facility] divalproex 2020-0 Yes [id number] 500mg Take 2 [facility] 250 mg 7-14 tablets by [facility] 24 hr 00:00: mouth at [place] tablet 00 bedtime. [facility] divalproex 2020-0 Yes [id number] 500mg Take 2 [facility] 250 mg 7-14 tablets by [facility] 24 hr 00:00: mouth at [place] tablet 00 bedtime. [facility] divalproex 2020-0 Yes [id number] 500mg Take 2 [facility] 250 mg 7-14 tablets by [facility] 24 hr 00:00: mouth at [place] tablet 00 bedtime. [facility] divalproex 2020-0 Yes [id number] 500mg Take 2 [facility] 250 mg 7-14 tablets by [facility] 24 hr 00:00: mouth at [place] tablet 00 bedtime. [facility] divalproex 2020-0 Yes [id number] 500mg Take 2 [facility] 250 mg 7-14 tablets by [facility] 24 hr 00:00: mouth at [place] tablet 00 bedtime. [facility] divalproex 2020-0 Yes [id number] 500mg Take 2 [facility] 250 mg 7-14 tablets by [facility] 24 hr 00:00: mouth at [place] tablet 00 bedtime. [facility] divalproex 2020-0 Yes [id number] 500mg Take 2 [facility] 250 mg 7-14 tablets by [facility] 24 hr 00:00: mouth at [place] tablet 00 bedtime. [facility] divalproex 2020-0 Yes [id number] 500mg Take 2 [facility] 250 mg 7-14 tablets by [facility] 24 hr 00:00: mouth at [place] tablet 00 bedtime. [facility] divalproex 2020-0 Yes [id number] 500mg Take 2 [facility] 250 mg 7-14 tablets by [facility] 24 hr 00:00: mouth at [place] tablet 00 bedtime. [facility] divalproex 2020-0 Yes [id number] 500mg Take 2 [facility] 250 mg 7-14 tablets by [facility] 24 hr 00:00: mouth at [place] tablet 00 bedtime. [facility] divalproex 2020-0 Yes [id number] 500mg Take 2 [facility] 250 mg 7-14 tablets by [facility] 24 hr 00:00: mouth at [place] tablet 00 bedtime. [facility] divalproex 2020-0 Yes [id number] 500mg Take 2 [facility] 250 mg 7-14 tablets by [facility] 24 hr 00:00: mouth at [place] tablet 00 bedtime. [facility] mirtazapine 2020-0 Yes [id number] 7.5mg Take 1 [facility] 7.5 mg 7-10 105 tablet by [facility] tablet 00:00: mouth at [place] 00 bedtime. [facility] mirtazapine 2020-0 Yes [id number] 7.5mg Take 1 [facility] 7.5 mg 7-10 105 tablet by [facility] tablet 00:00: mouth at [place] 00 bedtime. [facility] mirtazapine 2020-0 Yes [id number] 7.5mg Take 1 [facility] 7.5 mg 7-10 105 tablet by [facility] tablet 00:00: mouth at [place] 00 bedtime. [facility] mirtazapine 2020-0 Yes [id number] 7.5mg Take 1 [facility] 7.5 mg 7-10 105 tablet by [facility] tablet 00:00: mouth at [place] 00 bedtime. [facility] mirtazapine 2020-0 Yes [id number] 7.5mg Take 1 [facility] 7.5 mg 7-10 105 tablet by [facility] tablet 00:00: mouth at [place] 00 bedtime. [facility] mirtazapine 2020-0 Yes [id number] 7.5mg Take 1 [facility] 7.5 mg 7-10 105 tablet by [facility] tablet 00:00: mouth at [place] 00 bedtime. [facility] mirtazapine 2020-0 Yes [id number] 7.5mg Take 1 [facility] 7.5 mg 7-10 105 tablet by [facility] tablet 00:00: mouth at [place] 00 bedtime. [facility] mirtazapine 2020-0 Yes [id number] 7.5mg Take 1 [facility] 7.5 mg 7-10 105 tablet by [facility] tablet 00:00: mouth at [place] 00 bedtime. [facility] mirtazapine 2020-0 Yes [id number] 7.5mg Take 1 [facility] 7.5 mg 7-10 105 tablet by [facility] tablet 00:00: mouth at [place] 00 bedtime. [facility] mirtazapine 2020-0 Yes [id number] 7.5mg Take 1 [facility] 7.5 mg 7-10 105 tablet by [facility] tablet 00:00: mouth at [place] [address] bedtime. [facility] mirtazapine 2020-0 Yes [id number] 7.5mg Take 1 [facility] 7.5 mg 7-10 105 tablet by [facility] tablet 00:00: mouth at [place] [address] bedtime. [facility] mirtazapine 2020-0 Yes [id number] 7.5mg Take 1 [facility] 7.5 mg 7-10 105 tablet by [facility] tablet 00:00: mouth at [place] 00 bedtime. [facility] mirtazapine 2020-0 Yes [id number] 7.5mg Take 1 [facility] 7.5 mg 7-10 105 tablet by [facility] tablet 00:00: mouth at [place] bedtime. [facility] mirtazapine 2020-0 Yes [id number] 7.5mg Take 1 [facility] 7.5 mg 7-10 105 tablet by [facility] tablet 00:00: mouth at [place] [address] bedtime. [facility] mirtazapine 2020-0 Yes [id number] 7.5mg Take 1 [facility] 7.5 mg 7-10 105 tablet by [facility] tablet 00:00: mouth at [place] [address] bedtime. [facility] mirtazapine 2020-0 Yes [id number] 7.5mg Take 1 [facility] 7.5 mg 7-10 105 tablet by [facility] tablet 00:00: mouth at [place] [address] bedtime. [facility] mirtazapine 2020-0 Yes [id number] 7.5mg Take 1 [facility] 7.5 mg 7-10 105 tablet by [facility] tablet 00:00: mouth at [place] [address] bedtime. [facility] mirtazapine 2020-0 Yes [id number] 7.5mg Take 1 [facility] 7.5 mg 7-10 105 tablet by [facility] tablet 00:00: mouth at [place] 00 bedtime. [facility] mirtazapine 2020-0 Yes [id number] 7.5mg Take 1 [facility] 7.5 mg 7-10 105 tablet by [facility] tablet 00:00: mouth at [place] [address] bedtime. [facility] mirtazapine 2020-0 Yes [id number] 7.5mg Take 1 [facility] 7.5 mg 7-10 105 tablet by [facility] tablet 00:00: mouth at [place] [address] bedtime. [facility] mirtazapine 2020-0 Yes [id number] 7.5mg Take 1 [facility] 7.5 mg 7-10 105 tablet by [facility] tablet 00:00: mouth at [place] bedtime. [facility] mirtazapine 2020-0 Yes [id number] 7.5mg Take 1 [facility] 7.5 mg 7-10 105 tablet by [facility] tablet 00:00: mouth at [place] bedtime. [facility] paliperidon 2020-0 Yes [id number] TAKE 1 [facility] e 3 mg 24 4-24 TABLET BY [facility] f hour tablet 00:00: MOUTH ONCE DAILY [facility] paliperidon 2020-0 Yes [id number] TAKE 1 [facility] e 3 mg 24 4-24 TABLET BY [facility] o f hour tablet 00:00: MOUTH ONCE DAILY [facility] paliperidon 2020-0 Yes [id number] TAKE 1 [facility] e 3 mg 24 4-24 TABLET BY [facility] o f hour tablet 00:00: MOUTH ONCE DAILY [facility] paliperidon 2020-0 Yes [id number] TAKE 1 [facility] e 3 mg 24 4-24 TABLET BY [facility] f hour tablet 00:00: MOUTH ONCE DAILY [facility] paliperidon 2020-0 Yes [id number] TAKE 1 [facility] e 3 mg 24 4-24 TABLET BY [facility] f hour tablet 00:00: MOUTH ONCE DAILY [facility] paliperidon 2020-0 Yes [id number] TAKE 1 [facility] e 3 mg 24 4-24 TABLET BY [facility] f hour tablet 00:00: MOUTH ONCE DAILY [facility] paliperidon 2020-0 Yes [id number] TAKE 1 [facility] e 3 mg 24 4-24 TABLET BY [facility] o f hour tablet 00:00: MOUTH ONCE DAILY [facility] paliperidon 2020-0 Yes [id number] TAKE 1 [facility] e 3 mg 24 4-24 TABLET BY [facility] f hour tablet 00:00: MOUTH ONCE DAILY [facility] paliperidon 2020-0 Yes [id number] TAKE 1 [facility] e 3 mg 24 4-24 TABLET BY [facility] f hour tablet 00:00: MOUTH ONCE DAILY [facility] paliperidon 2020-0 Yes [id number] TAKE 1 [facility] e 3 mg 24 4-24 TABLET BY [facility] f hour tablet 00:00: MOUTH ONCE DAILY [facility] paliperidon 2020-0 Yes [id number] TAKE 1 [facility] e 3 mg 24 4-24 TABLET BY [facility] f hour tablet 00:00: MOUTH ONCE DAILY [facility] paliperidon 2020-0 Yes [id number] TAKE 1 [facility] e 3 mg 24 4-24 TABLET BY [facility] f hour tablet 00:00: MOUTH ONCE DAILY [facility] paliperidon 2020-0 Yes [id number] TAKE 1 [facility] e 3 mg 24 4-24 TABLET BY [facility] o f hour tablet 00:00: MOUTH ONCE DAILY [facility] paliperidon 2020-0 Yes [id number] TAKE 1 [facility] e 3 mg 24 4-24 TABLET BY [facility] f hour tablet 00:00: MOUTH ONCE DAILY [facility] paliperidon 2020-0 Yes [id number] TAKE 1 [facility] e 3 mg 24 4-24 TABLET BY [facility] o f hour tablet 00:00: MOUTH ONCE DAILY [facility] paliperidon 2020-0 Yes [id number] TAKE 1 [facility] e 3 mg 24 4-24 TABLET BY [facility] f hour tablet 00:00: MOUTH ONCE DAILY [facility] paliperidon 2020-0 Yes [id number] TAKE 1 [facility] e 3 mg 24 4-24 TABLET BY [facility] o f hour tablet 00:00: MOUTH ONCE DAILY [facility] paliperidon 2020-0 Yes [id number] TAKE 1 [facility] e 3 mg 24 4-24 TABLET BY [facility] o f hour tablet 00:00: MOUTH ONCE DAILY [facility] paliperidon 2020-0 Yes [id number] TAKE 1 [facility] e 3 mg 24 4-24 TABLET BY [facility] o f hour tablet 00:00: MOUTH ONCE DAILY [facility] paliperidon 2020-0 Yes [id number] TAKE 1 [facility] e 3 mg 24 4-24 TABLET BY [facility] o f hour tablet 00:00: MOUTH ONCE DAILY [facility] paliperidon 2020-0 Yes [id number] TAKE 1 [facility] e 3 mg 24 4-24 TABLET BY [facility] o f hour tablet 00:00: MOUTH ONCE DAILY [facility] paliperidon 2020-0 Yes [id number] TAKE 1 [facility] e 3 mg 24 4-24 TABLET BY [facility] o f hour tablet 00:00: MOUTH ONCE DAILY [facility] paliperidon 2020-0 Yes [id number] TAKE 1 [facility] e 3 mg 24 4-24 TABLET BY [facility] o f hour tablet 00:00: MOUTH ONCE DAILY [facility] paliperidon 2020-0 Yes [id number] TAKE 1 [facility] e 3 mg 24 4-24 TABLET BY [facility] o f hour tablet 00:00: MOUTH ONCE DAILY [facility] paliperidon 2020-0 Yes [id number] TAKE 1 [facility] e 3 mg 24 4-24 TABLET BY [facility] o f hour tablet 00:00: MOUTH ONCE DAILY [facility] paliperidon 2020-0 Yes [id number] TAKE 1 [facility] e 3 mg 24 4-24 TABLET BY [facility] o f hour tablet 00:00: MOUTH ONCE DAILY [facility] paliperidon 2020-0 Yes [id number] TAKE 1 [facility] e 3 mg 24 4-24 TABLET BY [facility] o f hour tablet 00:00: MOUTH ONCE DAILY [facility] paliperidon 2020-0 Yes [id number] TAKE 1 [facility] e 3 mg 24 4-24 TABLET BY [facility] o f hour tablet 00:00: MOUTH ONCE DAILY [facility] divalproex 2020-0 Yes [id number] 500mg Take 2 [facility] ER 250 mg 4-23 tablets by [facility] 24 hr 00:00: mouth at [place] tablet 00 bedtime. [facility] divalproex 2020-0 Yes [id number] 500mg Take 2 [facility] ER 250 mg 4-23 tablets by [facility] 24 hr 00:00: mouth at [place] tablet 00 bedtime. [facility] divalproex 2020-0 Yes [id number] 500mg Take 2 [facility] ER 250 mg 4-23 tablets by [facility] 24 hr 00:00: mouth at [place] tablet 00 bedtime. [facility] divalproex 2020-0 Yes [id number] 500mg Take 2 [facility] ER 250 mg 4-23 tablets by [facility] 24 hr 00:00: mouth at [place] tablet 00 bedtime. [facility] divalproex 2020-0 Yes [id number] 500mg Take 2 [facility] ER 250 mg 4-23 tablets by [facility] 24 hr 00:00: mouth at [place] tablet 00 bedtime. [facility] TOPIRAMATE 2020-0 Yes [id number] TAKE 1 [facility] 25 mg 4-22 TABLET BY [facility] tablet 00:00: MOUTH TWO [place] 00 TIMES Medical DAILY Branch TOPIRAMATE 2020-0 Yes [id number] TAKE 1 [facility] 25 mg 4-22 TABLET BY [facility] tablet 00:00: MOUTH TWO [place] TIMES Medical DAILY Branch TOPIRAMATE 2020-0 Yes [id number] TAKE 1 [facility] 25 mg 4-22 TABLET BY [facility] tablet 00:00: MOUTH TWO [place] Medical DAILY Branch TOPIRAMATE 2020-0 Yes [id number] TAKE 1 [facility] 25 mg 4-22 TABLET BY [facility] tablet 00:00: MOUTH TWO [place] TIMES Medical DAILY Branch TOPIRAMATE 2020-0 Yes [id number] TAKE 1 [facility] 25 mg 4-22 TABLET BY [facility] tablet 00:00: MOUTH TWO [place] TIMES Medical DAILY Branch TOPIRAMATE 2020-0 Yes [id number] TAKE 1 [facility] 25 mg 4-22 TABLET BY [facility] tablet 00:00: MOUTH TWO [place] Medical DAILY Branch TOPIRAMATE 2020-0 Yes [id number] TAKE 1 [facility] 25 mg 4-22 TABLET BY [facility] tablet 00:00: MOUTH TWO [place] Medical DAILY Branch TOPIRAMATE 2020-0 Yes [id number] TAKE 1 [facility] 25 mg 4-22 TABLET BY [facility] tablet 00:00: MOUTH TWO [place] Medical DAILY Branch TOPIRAMATE 2020-0 Yes [id number] TAKE 1 [facility] 25 mg 4-22 TABLET BY [facility] tablet 00:00: MOUTH TWO [place] Medical DAILY Branch TOPIRAMATE 2020-0 Yes [id number] TAKE 1 [facility] 25 mg 4-22 TABLET BY [facility] of tablet 00:00: MOUTH TWO [place] Medical DAILY Branch TOPIRAMATE 2020-0 Yes [id number] TAKE 1 [facility] 25 mg 4-22 TABLET BY [facility] tablet 00:00: MOUTH TWO [place] Medical DAILY Branch TOPIRAMATE 2020-0 Yes [id number] TAKE 1 [facility] 25 mg 4-22 TABLET BY [facility] tablet 00:00: MOUTH TWO [place] Medical DAILY Branch TOPIRAMATE 2020-0 Yes [id number] TAKE 1 [facility] 25 mg 4-22 TABLET BY [facility] tablet 00:00: MOUTH TWO [place] TIMES Medical DAILY Branch TOPIRAMATE 2020-0 Yes [id number] TAKE 1 [facility] 25 mg 4-22 TABLET BY [facility] of tablet 00:00: MOUTH TWO [place] TIMES Medical DAILY Branch TOPIRAMATE 2020-0 Yes [id number] TAKE 1 [facility] 25 mg 4-22 TABLET BY [facility] tablet 00:00: MOUTH TWO [place] TIMES Medical DAILY Branch TOPIRAMATE 2020-0 Yes [id number] TAKE 1 [facility] 25 mg 4-22 TABLET BY [facility] tablet 00:00: MOUTH TWO [place] TIMES Medical DAILY Branch TOPIRAMATE 2020-0 Yes [id number] TAKE 1 [facility] 25 mg 4-22 TABLET BY [facility] of tablet 00:00: MOUTH TWO [place] Medical DAILY Branch TOPIRAMATE 2020-0 Yes [id number] TAKE 1 [facility] 25 mg 4-22 TABLET BY [facility] of tablet 00:00: MOUTH TWO [place] Medical DAILY Branch TOPIRAMATE 2020-0 Yes [id number] TAKE 1 [facility] 25 mg 4-22 TABLET BY [facility] tablet 00:00: MOUTH TWO [place] TIMES Medical DAILY Branch TOPIRAMATE 2020-0 Yes [id number] TAKE 1 [facility] 25 mg 4-22 TABLET BY [facility] of tablet 00:00: MOUTH [facility] Medical DAILY Branch TOPIRAMATE 2020-0 Yes [id number] TAKE 1 [facility] 25 mg 4-22 TABLET BY [facility] of tablet 00:00: MOUTH [facility] Medical DAILY Branch TOPIRAMATE 2020-0 Yes [id number] TAKE 1 [facility] 25 mg 4-22 TABLET BY [facility] of tablet 00:00: MOUTH [facility] Medical DAILY Branch TOPIRAMATE 2020-0 Yes [id number] TAKE 1 [facility] 25 mg 4-22 TABLET BY [facility] of tablet 00:00: [facility] Medical DAILY Branch TOPIRAMATE 2020-0 Yes [id number] TAKE 1 [facility] 25 mg 4-22 TABLET BY ity of tablet 00:00: [facility] Medical DAILY Branch TOPIRAMATE 2020-0 Yes [id number] TAKE 1 [facility] 25 mg 4-22 TABLET BY ity of tablet 00:00: MOUTH [facility] Medical DAILY Branch TOPIRAMATE 2020-0 Yes [id number] TAKE 1 [facility] 25 mg 4-22 TABLET BY [facility] of tablet 00:00: MOUTH [facility] TIMES Medical DAILY Branch TOPIRAMATE 2020-0 Yes [id number] TAKE 1 [facility] 25 mg 4-22 TABLET BY [facility] of tablet 00:00: MOUTH TWO [place] TIMES Medical DAILY Branch TOPIRAMATE 2020-0 Yes [id number] TAKE 1 [facility] 25 mg 4-22 TABLET BY [facility] of tablet 00:00: MOUTH [facility] TIMES Medical DAILY Branch TOPIRAMATE 2020-0 Yes [id number] TAKE 1 [facility] 25 mg 4-22 TABLET BY [facility] of tablet 00:00: MOUTH [facility] 00 TIMES Medical DAILY Branch TOPIRAMATE 2020-0 Yes [id number] TAKE 1 [facility] 25 mg 4-22 TABLET BY [facility] of tablet 00:00: MOUTH TWO [place] Medical DAILY Branch TOPIRAMATE 2020-0 Yes [id number] TAKE 1 [facility] 25 mg 4-22 TABLET BY [facility] of tablet 00:00: MOUTH TWO [place] Medical DAILY Branch TOPIRAMATE 2020-0 Yes [id number] TAKE 1 [facility] 25 mg 4-22 TABLET BY [facility] of tablet 00:00: MOUTH TWO [place] TIMES Medical DAILY Branch TOPIRAMATE 2020-0 Yes [id number] TAKE 1 [facility] 25 mg 4-22 TABLET BY [facility] of tablet 00:00: MOUTH TWO [place] Medical DAILY Branch TOPIRAMATE 2020-0 Yes [id number] TAKE 1 [facility] 25 mg 4-22 TABLET BY [facility] of tablet 00:00: MOUTH TWO [place] Medical DAILY Branch TOPIRAMATE 2020-0 Yes [id number] TAKE 1 [facility] 25 mg 4-22 TABLET BY [facility] of tablet 00:00: MOUTH TWO [place] Medical DAILY Branch TOPIRAMATE 2020-0 Yes [id number] TAKE 1 [facility] 25 mg 4-22 TABLET BY [facility] of tablet 00:00: MOUTH TWO [place] Medical DAILY Branch TOPIRAMATE 2020-0 Yes [id number] TAKE 1 [facility] 25 mg 4-22 TABLET BY [facility] of tablet 00:00: MOUTH TWO [place] Medical DAILY Branch TOPIRAMATE 2020-0 Yes [id number] TAKE 1 [facility] 25 mg 4-22 TABLET BY [facility] of tablet 00:00: MOUTH TWO [place] Medical DAILY Branch TOPIRAMATE 2020-0 Yes [id number] TAKE 1 [facility] 25 mg 4-22 TABLET BY [facility] of tablet 00:00: MOUTH TWO [place] Medical DAILY Branch TOPIRAMATE 2020-0 Yes [id number] TAKE 1 [facility] 25 mg 4-22 TABLET BY [facility] of tablet 00:00: MOUTH TWO [place] TIMES Medical DAILY Branch TOPIRAMATE 2020-0 Yes [id number] TAKE 1 [facility] 25 mg 4-22 TABLET BY [facility] of tablet 00:00: MOUTH TWO [place] Medical DAILY Branch TOPIRAMATE 2020-0 Yes [id number] TAKE 1 [facility] 25 mg 4-22 TABLET BY [facility] of tablet 00:00: MOUTH TWO [place] TIMES Medical DAILY Branch clonazePAM 2020-0 Yes [id number] .5mg Take 1 [facility] n[facility] 0.5 mg 3-17 tablet by [facility] of tablet 00:00: mouth at [place] [address] bedtime. Medical Branch clonazePAM 2020-0 Yes [id number] .5mg Take 1 [facility] nivers 0.5 mg 3-17 tablet by [facility] of tablet 00:00: mouth at [place] [address] bedtime. [facility] clonazePAM 2020-0 Yes [id number] .5mg Take 1 [facility] nivers 0.5 mg 3-17 tablet by [facility] of tablet 00:00: mouth at [place] [address] bedtime. [facility] clonazePAM 2020-0 Yes [id number] .5mg Take 1 [facility] nivers 0.5 mg 3-17 tablet by [facility] of tablet 00:00: mouth at [place] [address] bedtime. [facility] clonazePAM 2020-0 Yes [id number] .5mg Take 1 [facility] nivers 0.5 mg 3-17 tablet by [facility] of tablet 00:00: mouth at [place] [address] bedtime. [facility] clonazePAM 2020-0 Yes [id number] .5mg Take 1 [facility] nivers 0.5 mg 3-17 tablet by [facility] of tablet 00:00: mouth at [place] [address] bedtime. [facility] Branch clonazePAM 2020-0 Yes [id number] .5mg Take 1 [facility] nivers 0.5 mg 3-17 tablet by [facility] of tablet 00:00: mouth at [place] [address] bedtime. Medical [facility] clonazePAM 2020-0 Yes [id number] .5mg Take 1 [facility] nivers 0.5 mg 3-17 tablet by [facility] of tablet 00:00: mouth at [place] [address] bedtime. Medical [facility] clonazePAM 2020-0 Yes [id number] .5mg Take 1 [facility] nivers 0.5 mg 3-17 tablet by [facility] of tablet 00:00: mouth at [place] [address] bedtime. [facility] clonazePAM 2020-0 Yes [id number] .5mg Take 1 [facility] nivers 0.5 mg 3-17 tablet by [facility] of tablet 00:00: mouth at [place] [address] bedtime. [facility] clonazePAM 2020-0 Yes [id number] .5mg Take 1 [facility] nivers 0.5 mg 3-17 tablet by [facility] of tablet 00:00: mouth at [place] [address] bedtime. [facility] clonazePAM 2020-0 Yes [id number] .5mg Take 1 [facility] nivers 0.5 mg 3-17 tablet by [facility] of tablet 00:00: mouth at [place] [address] bedtime. [facility] clonazePAM 2020-0 Yes [id number] .5mg Take 1 [facility] nivers 0.5 mg 3-17 tablet by [facility] of tablet 00:00: mouth at [place] [address] bedtime. [facility] clonazePAM 2020-0 Yes [id number] .5mg Take 1 [facility] nivers 0.5 mg 3-17 tablet by [facility] of tablet 00:00: mouth at [place] [address] bedtime. [facility] clonazePAM 2020-0 Yes [id number] .5mg Take 1 [facility] nivers 0.5 mg 3-17 tablet by [facility] of tablet 00:00: mouth at [place] [address] bedtime. Medical Branch clonazePAM 2020-0 Yes [id number] .5mg Take 1 [facility] nivers 0.5 mg 3-17 tablet by [facility] of tablet 00:00: mouth at [place] [address] bedtime. [facility] clonazePAM 2020-0 Yes [id number] .5mg Take 1 U nivers 0.5 mg 3-17 tablet by [facility] tablet 00:00: mouth at [place] [address] bedtime. [facility] clonazePAM 2020-0 Yes [id number] .5mg Take 1 [facility] n[facility] 0.5 mg 3-17 tablet by [facility] tablet 00:00: mouth at [place] [address] bedtime. [facility] clonazePAM 2020-0 Yes [id number] .5mg Take 1 [facility] n[facility] 0.5 mg 3-17 tablet by [facility] of tablet 00:00: mouth at [place] [address] bedtime. [facility] clonazePAM 2020-0 Yes [id number] .5mg Take 1 [facility] 0.5 mg 3-17 tablet by [facility] of tablet 00:00: mouth at [place] [address] bedtime. [facility] clonazePAM 2020-0 Yes [id number] .5mg Take 1 [facility] 0.5 mg 3-17 tablet by [facility] of tablet 00:00: mouth at [place] [address] bedtime. [facility] clonazePAM 2020-0 Yes [id number] .5mg Take 1 [facility] 0.5 mg 3-17 tablet by [facility] of tablet 00:00: mouth at [place] [address] bedtime. [facility] clonazePAM 2020-0 Yes [id number] .5mg Take 1 [facility] 0.5 mg 3-17 tablet by [facility] of tablet 00:00: mouth at [place] [address] bedtime. [facility] clonazePAM 2020-0 Yes [id number] .5mg Take 1 [facility] n[facility] 0.5 mg 3-17 tablet by [facility] of tablet 00:00: mouth at [place] [address] bedtime. [facility] clonazePAM 2020-0 Yes [id number] .5mg Take 1 [facility] 0.5 mg 3-17 tablet by [facility] of tablet 00:00: mouth at [place] [address] bedtime. [facility] clonazePAM 2020-0 Yes [id number] .5mg Take 1 [facility] 0.5 mg 3-17 tablet by [facility] of tablet 00:00: mouth at [place] [address] bedtime. [facility] clonazePAM 2020-0 Yes [id number] .5mg Take 1 [facility] 0.5 mg 3-17 tablet by [facility] of tablet 00:00: mouth at [place] [address] bedtime. [facility] clonazePAM 2020-0 Yes [id number] .5mg Take 1 [facility] n[facility] 0.5 mg 3-17 tablet by [facility] of tablet 00:00: mouth at [place] [address] bedtime. [facility] clonazePAM 2020-0 Yes [id number] .5mg Take 1 [facility] 0.5 mg 3-17 tablet by [facility] of tablet 00:00: mouth at [place] [address] bedtime. [facility] clonazePAM 2020-0 Yes [id number] .5mg Take 1 [facility] 0.5 mg 3-17 tablet by [facility] of tablet 00:00: mouth at [place] [address] bedtime. [facility] clonazePAM 2020-0 Yes [id number] .5mg Take 1 [facility] 0.5 mg 3-17 tablet by [facility] of tablet 00:00: mouth at [place] [address] bedtime. [facility] clonazePAM 2020-0 Yes [id number] .5mg Take 1 [facility] 0.5 mg 3-17 tablet by [facility] of tablet 00:00: mouth at [place] [address] bedtime. [facility] clonazePAM 2020-0 Yes [id number] .5mg Take 1 [facility] 0.5 mg 3-17 tablet by [facility] tablet 00:00: mouth at [place] [address] bedtime. [facility] divalproex 2020-0 Yes [id number] 500mg Take 2 [facility] 250 mg 2-24 tablets by [facility] 24 hr 00:00: mouth at [place] tablet 00 bedtime. [facility] divalproex 2020-0 Yes [id number] 500mg Take 2 [facility] 250 mg 2-24 tablets by [facility] of 24 hr 00:00: mouth at [place] tablet 00 bedtime. [facility] divalproex 2020-0 Yes [id number] 500mg Take 2 [facility] 250 mg 2-24 tablets by [facility] of 24 hr 00:00: mouth at [place] tablet 00 bedtime. [facility] divalproex 2020-0 Yes [id number] 500mg Take 2 [facility] 250 mg 2-24 tablets by [facility] of 24 hr 00:00: mouth at [place] tablet 00 bedtime. [facility] divalproex 2020-0 Yes [id number] 500mg Take 2 [facility] 250 mg 2-24 tablets by [facility] of 24 hr 00:00: mouth at [place] tablet 00 bedtime. [facility] divalproex 2020-0 Yes [id number] 500mg Take 2 [facility] 250 mg 2-24 tablets by [facility] of 24 hr 00:00: mouth at [place] tablet 00 bedtime. [facility] MIRTAZAPINE 2020-0 Yes [id number] TAKE 1 [facility] 7.5 mg 2-14 105 TABLET BY it[facility] of tablet 00:00: MOUTH 00 EVERYDAY Medical AT [facility] MIRTAZAPINE 2020-0 Yes [id number] TAKE 1 [facility] 7.5 mg 2-14 105 TABLET BY ity of tablet 00:00: MOUTH 00 EVERYDAY Medical AT [facility] MIRTAZAPINE 2020-0 Yes [id number] TAKE 1 [facility] 7.5 mg 2-14 105 TABLET BY ity of tablet 00:00: MOUTH 00 EVERYDAY Medical AT [facility] MIRTAZAPINE 2020-0 Yes [id number] TAKE 1 [facility] 7.5 mg 2-14 105 TABLET BY ity of tablet 00:00: MOUTH 00 EVERYDAY Medical AT [facility] MIRTAZAPINE 2020-0 Yes [id number] TAKE 1 [facility] 7.5 mg 2-14 105 TABLET BY [facility] tablet 00:00[facility] Yes [id number] TAKE 1 [facility] 7.5 mg 2-14 105 TABLET BY ity of tablet 00:00: MOUTH 00 EVERYDAY Medical AT BEDTIME [place] MIRTAZAPINE 2020-0 Yes [id number] TAKE 1 [facility] 7.5 mg 2-14 105 TABLET BY ity of tablet 00:00: MOUTH 00 EVERYDAY Medical AT [facility] MIRTAZAPINE 2020-0 Yes [id number] TAKE 1 [facility] 7.5 mg 2-14 105 TABLET BY ity of tablet 00:00: MOUTH 00 EVERYDAY Medical AT BEDTIME Branch MIRTAZAPINE 2020-0 Yes [id number] TAKE 1 [facility] 7.5 mg 2-14 105 TABLET BY it[facility] of tablet 00:00: MOUTH EVERYDAY Medical AT BEDTIME Branch MIRTAZAPINE 2020-0 Yes [id number] TAKE 1 [facility] 7.5 mg 2-14 105 TABLET BY it[facility] of tablet 00:00: MOUTH EVERYDAY Medical AT BEDTIME Branch rivaroxaban 2020-0 Yes Take by [facility] (XARELTO) 06-08 mouth. ity of 20 mg 16:13: [place] tablet 27 Medical Branch rivaroxaban 2020-0 Yes Take by [facility] (XARELTO) 06-08 mouth. ity of 20 mg 16:13: [place] tablet 27 Medical Branch rivaroxaban 2020-0 Yes Take by [facility] (XARELTO) 06-08 mouth. ity of 20 mg 16:13: [place] tablet 27 Medical Branch rivaroxaban 2020-0 Yes Take by [facility] (XARELTO) 06-08 mouth. ity of 20 mg 16:13: [place] tablet 27 Medical Branch rivaroxaban 2020-0 Yes Take by [facility] (XARELTO) 06-08 mouth. ity of 20 mg 16:13: [place] tablet 27 Medical Branch rivaroxaban 2020-0 Yes Take by [facility] (XARELTO) 06-08 mouth. ity of 20 mg 16:13: [place] tablet 27 [facility] rivaroxaban 2020-0 Yes Take by [facility] (XARELTO) 06-08 mouth. ity of 20 mg 16:13: [place] tablet 27 [facility] Branch rivaroxaban 2020-0 Yes Take by [facility] (XARELTO) 06-08 mouth. ity of 20 mg 16:13: [place] tablet 27 [facility] Branch rivaroxaban 2020-0 Yes Take by [facility] (XARELTO) 06-08 mouth. ity of 20 mg 16:13: [place] tablet 27 [facility] rivaroxaban 2020-0 Yes Take by [facility] (XARELTO) 06-08 mouth. ity of 20 mg 16:13: [place] tablet 27 [facility] Branch rivaroxaban 2020-0 Yes Take by [facility] (XARELTO) 06-08 mouth. ity of 20 mg 16:13: [place] tablet 27 [facility] Branch rivaroxaban 2020-0 Yes Take by [facility] (XARELTO) 06-08 mouth. ity of 20 mg 16:13: [place] tablet 27 [facility] Branch rivaroxaban 2020-0 Yes Take by [facility] (XARELTO) 06-08 mouth. ity of 20 mg 16:13: [place] tablet 27 [facility] rivaroxaban 2020-0 Yes Take by [facility] (XARELTO) 06-08 mouth. ity of 20 mg 16:13: [place] tablet 27 [facility] Branch rivaroxaban 2020-0 Yes Take by [facility] (XARELTO) 06-08 mouth. ity of 20 mg 16:13: [place] tablet 27 [facility] Branch rivaroxaban 2020-0 Yes Take by [facility] (XARELTO) 06-08 mouth. ity of 20 mg 16:13: [place] tablet 27 [facility] Branch rivaroxaban 2020-0 Yes Take by [facility] (XARELTO) 06-08 mouth. ity of 20 mg 16:13: [place] tablet 27 [facility] Branch rivaroxaban 2020-0 Yes Take by [facility] (XARELTO) 06-08 mouth. ity of 20 mg 16:13: [place] tablet 27 Medical Branch rivaroxaban 2020-0 Yes Take by [facility] (XARELTO) 06-08 mouth. ity of 20 mg 16:13: [place] tablet 27 Medical Branch rivaroxaban 2020-0 Yes Take by [facility] (XARELTO) 06-08 mouth. ity of 20 mg 16:13: [place] tablet 27 Medical Branch rivaroxaban 2020-0 Yes Take by [facility] (XARELTO) 06-08 mouth. ity of 20 mg 16:13: [place] tablet 27 Medical Branch rivaroxaban 2020-0 Yes Take by [facility] (XARELTO) 06-08 mouth. ity of 20 mg 16:13: [place] tablet 27 Medical Branch rivaroxaban 2020-0 Yes Take by [facility] (XARELTO) 06-08 mouth. ity of 20 mg 16:13: [place] tablet 27 Medical Branch rivaroxaban 2020-0 Yes Take by [facility] (XARELTO) 06-08 mouth. ity of 20 mg 16:13: [place] tablet 27 Medical Branch rivaroxaban 2020-0 Yes Take by [facility] (XARELTO) 06-08 mouth. ity of 20 mg 16:13: [place] tablet 27 Medical Branch rivaroxaban 2020-0 Yes Take by [facility] (XARELTO) 06-08 mouth. ity of 20 mg 16:13: [place] tablet 27 Medical Branch rivaroxaban 2020-0 Yes Take by [facility] (XARELTO) - mouth. ity of 20 mg 16:13: [place] tablet 27 Medical Branch rivaroxaban 2020-0 Yes Take by [facility] (XARELTO) 06-08 mouth. ity of 20 mg 16:13: [place] tablet 27 Medical Branch rivaroxaban 2020-0 Yes Take by [facility] (XARELTO) 06-08 mouth. ity of 20 mg 16:13: [place] tablet 27 Medical Branch rivaroxaban 2020-0 Yes Take by [facility] (XARELTO) 06-08 mouth. ity of 20 mg 16:13: [place] tablet 27 Medical Branch rivaroxaban 2020-0 Yes Take by [facility] (XARELTO) 06-08 mouth. ity of 20 mg 16:13: [place] tablet 27 Medical Branch rivaroxaban 2020-0 Yes Take by [facility] (XARELTO) 06-08 mouth. ity of 20 mg 16:13: [place] tablet 27 Medical Branch rivaroxaban 2020-0 Yes Take by [facility] (XARELTO) 06-08 mouth. ity of 20 mg 16:13: [place] tablet 27 Medical Branch rivaroxaban 2020-0 Yes Take by [facility] (XARELTO) 06-08 mouth. ity of 20 mg 16:13: [place] tablet 27 Medical Branch rivaroxaban 2020-0 Yes Take by [facility] (XARELTO) 06-08 mouth. ity of 20 mg 16:13: [place] tablet 27 Medical Branch rivaroxaban 2020-0 Yes Take by [facility] (XARELTO) 06-08 mouth. ity of 20 mg 16:13: [place] tablet 27 Medical Branch rivaroxaban 2020-0 Yes Take by [facility] (XARELTO) 06-08 mouth. ity of 20 mg 16:13: [place] tablet 27 Medical Branch rivaroxaban 2020-0 Yes Take by [facility] (XARELTO) 06-08 mouth. ity of 20 mg 16:13: [place] tablet 27 Medical Branch rivaroxaban 2020-0 Yes Take by [facility] (XARELTO) 06-08 mouth. ity of 20 mg 16:13: [place] tablet 27 Medical Branch rivaroxaban 2020-0 Yes Take by [facility] (XARELTO) 1-23 mouth. ity of 20 mg 16:13: [place] tablet 27 Medical Branch rivaroxaban 2020-0 Yes Take by [facility] (XARELTO) 06-08 mouth. ity of 20 mg 16:13: [place] tablet 27 Medical Branch rivaroxaban 2020-0 Yes Take by [facility] (XARELTO) 06-08 mouth. ity of 20 mg 16:13: [place] tablet 27 [facility] Branch rivaroxaban 2020-0 Yes Take by [facility] (XARELTO) 06-08 mouth. ity of 20 mg 16:13: [place] tablet 27 Medical Branch rivaroxaban 2020-0 Yes Take by [facility] (XARELTO) 06-08 mouth. ity of 20 mg 16:13: [place] tablet 27 [facility] Branch rivaroxaban 2020-0 Yes Take by [facility] (XARELTO) 06-08 mouth. ity of 20 mg 16:13: [place] tablet 27 [facility] Branch rivaroxaban 2020-0 Yes Take by [facility] (XARELTO) 06-08 mouth. ity of 20 mg 16:13: [place] tablet 27 [facility] Branch rivaroxaban 2020-0 Yes Take by [facility] (XARELTO) 06-08 mouth. ity of 20 mg 16:13: [place] tablet 27 [facility] Branch rivaroxaban 2020-0 Yes Take by [facility] (XARELTO) 06-08 mouth. ity of 20 mg 16:13: [place] tablet 27 [facility] Branch rivaroxaban 2020-0 Yes Take by [facility] (XARELTO) 06-08 mouth. ity of 20 mg 16:13: [place] tablet 27 Medical Branch rivaroxaban 2020-0 Yes Take by [facility] (XARELTO) 06-08 mouth. ity of 20 mg 16:13: [place] tablet 27 Medical Branch rivaroxaban 2020-0 Yes Take by [facility] (XARELTO) 06-08 mouth. ity of 20 mg 16:13: [place] tablet 27 Medical Branch rivaroxaban 2020-0 Yes Take by [facility] (XARELTO) 06-08 mouth. ity of 20 mg 16:13: [place] tablet 27 Medical Branch rivaroxaban 2020-0 Yes Take by [facility] (XARELTO) 06-08 mouth. ity of 20 mg 16:13: [place] tablet 27 Medical Branch rivaroxaban 2020-0 Yes Take by [facility] (XARELTO) 1-23 mouth. ity of 20 mg 16:13: [place] tablet 27 Medical Branch rivaroxaban 2020-0 Yes Take by [facility] (XARELTO) -23 mouth. ity of 20 mg 16:13: [place] tablet 27 Medical Branch rivaroxaban 2020-0 Yes Take by [facility] (XARELTO) 1-23 mouth. ity of 20 mg 16:13: [place] tablet 27 Medical Branch rivaroxaban 2020-0 Yes Take by [facility] (XARELTO) -23 mouth. ity of 20 mg 16:13: [place] tablet 27 Medical Branch rivaroxaban 2020-0 Yes Take by [facility] (XARELTO) -23 mouth. ity of 20 mg 16:13: [place] tablet 27 Medical Branch mirtazapine 2020-0 Yes [id number] 7.5mg Take 1 [facility] 7.5 mg 1-23 105 tablet by ity of tablet 00:00: mouth at [place] 00 bedtime. [facility] Branch clonazePAM 2020-0 Yes [id number] .5mg Take 1 [facility] nivers 0.5 mg 1-23 tablet by ity of tablet 00:00: mouth at [place] 00 bedtime. [facility] Branch paliperidon 2020-0 Yes [id number] TAKE 1 [facility] e 3 mg 24 1-23 TABLET BY ity o f hour tablet 00:00: MOUTH ONCE [place] 00 DAILY Medical Branch mirtazapine 2020-0 Yes [id number] 7.5mg Take 1 [facility] 7.5 mg 1-23 105 tablet by ity of tablet 00:00: mouth at [place] 00 bedtime. [facility] clonazePAM 2020-0 Yes [id number] .5mg Take 1 [facility]ivers 0.5 mg 1-23 tablet by ity of tablet 00:00: mouth at [place] 00 bedtime. [facility] paliperidon 2020-0 Yes [id number] TAKE 1 [facility] e 3 mg 24 1-23 TABLET BY ity o f hour tablet 00:00: MOUTH ONCE [place] 00 DAILY [facility] Branch mirtazapine 2020-0 Yes [id number] 7.5mg Take 1 [facility] 7.5 mg 1-23 105 tablet by ity of tablet 00:00: mouth at [place] 00 bedtime. [facility] clonazePAM 2020-0 Yes [id number] .5mg Take 1 [facility]ivers 0.5 mg 1-23 tablet by ity of tablet 00:00: mouth at [place] [address] bedtime. [facility] paliperidon 2020-0 Yes [id number] TAKE 1 [facility] e 3 mg 24 1-23 TABLET BY ity o f hour tablet 00:00: MOUTH ONCE DAILY [facility] Branch mirtazapine 2020-0 Yes [id number] 7.5mg Take 1 [facility] 7.5 mg 1-23 105 tablet by ity of tablet 00:00: mouth at [place] [address] bedtime. [facility] clonazePAM 2020-0 Yes [id number] .5mg Take 1 [facility]ivers 0.5 mg 1-23 tablet by ity of tablet 00:00: mouth at [place] [address] bedtime. [facility] paliperidon 2020-0 Yes [id number] TAKE 1 [facility] e 3 mg 24 1-23 TABLET BY ity o f hour tablet 00:00: MOUTH ONCE [place] DAILY [facility] Branch clonazePAM 2020-0 Yes [id number] .5mg Take 1 [facility] nivers 0.5 mg 1-23 tablet by ity of tablet 00:00: mouth at [place] [address] bedtime. [facility] Branch paliperidon 2020-0 Yes [id number] TAKE 1 [facility] e 3 mg 24 1-23 TABLET BY ity o f hour tablet 00:00: MOUTH ONCE [place] DAILY Medical Branch clonazePAM 2020-0 Yes [id number] .5mg Take 1 [facility] nivers 0.5 mg 1-23 tablet by ity of tablet 00:00: mouth at [place] [address] bedtime. Medical Branch paliperidon 2020-0 Yes [id number] TAKE 1 [facility] e 3 mg 24 1-23 TABLET BY ity o f hour tablet 00:00: MOUTH ONCE DAILY Medical Branch paliperidon 2020-0 Yes [id number] TAKE 1 [facility] e 3 mg 24 1-23 TABLET BY ity o f hour tablet 00:00: MOUTH ONCE [place] DAILY Medical Branch paliperidon 2020-0 Yes [id number] TAKE 1 [facility] e 3 mg 24 1-23 TABLET BY ity o f hour tablet 00:00: MOUTH ONCE DAILY Medical Branch paliperidon 2020-0 Yes [id number] TAKE 1 [facility] e 3 mg 24 1-23 TABLET BY ity o f hour tablet 00:00: MOUTH ONCE DAILY Medical Branch paliperidon 2020-0 Yes [id number] TAKE 1 [facility] e 3 mg 24 1-23 TABLET BY ity o f hour tablet 00:00: MOUTH ONCE [place] 00 DAILY Medical Branch paliperidon 2020-0 Yes [id number] TAKE 1 [facility] e 3 mg 24 1-23 TABLET BY ity o f hour tablet 00:00: MOUTH ONCE [place] 00 DAILY Medical Branch paliperidon 2020-0 Yes [id number] TAKE 1 [facility] e 3 mg 24 1-23 TABLET BY ity o f hour tablet 00:00: MOUTH ONCE [place] 00 DAILY Medical Branch propranolol 2018-05 Yes [id number] 10mg Take 1 [facility] 10 mg 1-22 tablet by ity of tablet 00:00: mouth 2 00 (two) Medical times Branch daily as needed (tremor). propranolol 2018-05 Yes [id number] 10mg Take 1 [facility] 10 mg 1-22 tablet by ity of tablet 00:00: mouth 2 (two) Medical times Branch daily as needed (tremor). propranolol 2018-05 Yes [id number] 10mg Take 1 [facility] 10 mg 1-22 tablet by it[facility] of tablet 00:00: mouth 2 (two) Medical times Branch daily as needed (tremor). propranolol 2018-05 Yes [id number] 10mg Take 1 [facility] 10 mg 1-22 tablet by ity of tablet 00:00: mouth 2 (two) Medical times Branch daily as needed (tremor). propranolol 2018-05 Yes [id number] 10mg Take 1 [facility] 10 mg 1-22 tablet by ity of tablet 00:00: mouth 2 (two) Medical times Branch daily as needed (tremor). propranolol 2018-05 Yes [id number] 10mg Take 1 [facility] 10 mg 1-22 tablet by ity of tablet 00:00: mouth 2 (two) Medical times Branch daily as needed (tremor). propranolol 2018-05 Yes [id number] 10mg Take 1 [facility] 10 mg 1-22 tablet by ity of tablet 00:00: mouth 2 00 (two) Medical times Branch daily as needed (tremor). propranolol 2018-05 Yes [id number] 10mg Take 1 [facility] 10 mg 1-22 tablet by ity of tablet 00:00: mouth 2 00 (two) Medical times Branch daily as needed (tremor). propranolol 2018-05 Yes [id number] 10mg Take 1 [facility] 10 mg 1-22 tablet by ity of tablet 00:00: mouth 2 (two) Medical times Branch daily as needed (tremor). propranolol 2018-05 Yes [id number] 10mg Take 1 [facility] 10 mg 1-22 tablet by ity of tablet 00:00: mouth 2 00 (two) Medical times Branch daily as needed (tremor). propranolol 2018-05 Yes [id number] 10mg Take 1 [facility] 10 mg 1-22 tablet by ity of tablet 00:00: mouth 2 [place] 00 (two) Medical times Branch daily as needed (tremor). propranolol 2018-05 Yes [id number] 10mg Take 1 [facility] 10 mg 1-22 tablet by ity of tablet 00:00: mouth 2 [place] 00 (two) Medical times Branch daily as needed (tremor). propranolol 2018-05 Yes [id number] 10mg Take 1 [facility] 10 mg 1-22 tablet by it[facility] of tablet 00:00: mouth 2 00 (two) Medical times Branch daily as needed (tremor). propranolol 2018-05 Yes [id number] 10mg Take 1 [facility] 10 mg 1-22 tablet by it[facility] of tablet 00:00: mouth 2 00 (two) Medical times Branch daily as needed (tremor). propranolol 2018-05 Yes [id number] 10mg Take 1 [facility] 10 mg 1-22 tablet by ity of tablet 00:00: mouth 2 00 (two) Medical times Branch daily as needed (tremor). propranolol 2018-05 Yes [id number] 10mg Take 1 [facility] 10 mg 1-22 tablet by it[facility] of tablet 00:00: mouth 2 00 (two) Medical times Branch daily as needed (tremor). propranolol 2018-05 Yes [id number] 10mg Take 1 [facility] 10 mg 1-22 tablet by it[facility] of tablet 00:00: mouth 2 00 (two) Medical times Branch daily as needed (tremor). propranolol 2018-05 Yes [id number] 10mg Take 1 [facility] 10 mg 1-22 tablet by it[facility] of tablet 00:00: mouth 2 00 (two) Medical times Branch daily as needed (tremor). propranolol 2018-05 Yes [id number] 10mg Take 1 [facility] 10 mg 1-22 tablet by it[facility] of tablet 00:00: mouth 2 [place] 00 (two) Medical times Branch daily as needed (tremor). propranolol 2018-05 Yes [id number] 10mg Take 1 [facility] 10 mg 1-22 tablet by it[facility] of tablet 00:00: mouth 2 [place] 00 (two) Medical times Branch daily as needed (tremor). propranolol 2018-05 Yes [id number] 10mg Take 1 [facility] 10 mg 0-25 tablet by it[facility] of tablet 00:00: mouth [place] 00 daily. [facility] Branch propranolol 2019- Yes [id number] 10mg Take 1 [facility] 10 mg 0-25 tablet by it[facility] of tablet 00:00: mouth [place] 00 daily. [facility] Branch rivaroxaban Yes Take by [facility] (XARELTO) 02-10 mouth. ity of 20 mg 15:21: [place] tablet [facility] Branch rivaroxaban Yes Take by [facility] (XARELTO) 02-10 mouth. ity of 20 mg 15:21: [place] tablet [facility] Branch rivaroxaban Yes Take by [facility] (XARELTO) 02-10 mouth. ity of 20 mg 15:21: [place] tablet [facility] Branch rivaroxaban Yes Take by [facility] (XARELTO) 02-10 mouth. ity of 20 mg 15:21: [place] tablet [facility] Branch rivaroxaban Yes Take by [facility] (XARELTO) 02-10 mouth. ity of 20 mg 15:21: [place] tablet [facility] Branch rivaroxaban Yes Take by [facility] (XARELTO) 02-10 mouth. ity of 20 mg 15:21: [place] tablet [facility] Branch rivaroxaban Yes Take by [facility] (XARELTO) 02-10 mouth. ity of 20 mg 15:21: [place] tablet 28 [facility] Branch divalproex Yes [id number] 500mg Take 2 [facility] ER 250 mg 9-10 tablets by ity of 24 hr 00:00: mouth at [place] tablet 00 bedtime. [facility] Branch divalproex Yes [id number] 500mg Take 2 [facility] ER 250 mg 9-10 tablets by ity of 24 hr 00:00: mouth at [place] tablet 00 bedtime. [facility] Branch divalproex Yes [id number] 500mg Take 2 [facility] ER 250 mg 9-10 tablets by ity of 24 hr 00:00: mouth at [place] tablet 00 bedtime. [facility] divalproex Yes [id number] 500mg Take 2 [facility] ER 250 mg 9-10 tablets by it[facility] of 24 hr 00:00: mouth at [place] tablet 00 bedtime. [facility] divalproex Yes [id number] 500mg Take 2 [facility] ER 250 mg 9-10 tablets by it[facility] of 24 hr 00:00: mouth at [place] tablet 00 bedtime. [facility] divalproex 2019-0 Yes [id number] 500mg Take 2 [facility] 250 mg 9-10 tablets by it[facility] of 24 hr 00:00: mouth at [place] tablet 00 bedtime. [facility] divalproex 2019-0 Yes [id number] 500mg Take 2 [facility] 250 mg 9-10 tablets by it[facility] of 24 hr 00:00: mouth at [place] tablet 00 bedtime. [facility] divalproex 2018-0 Yes [id number] 500mg Take 2 [facility] 250 mg 9-10 tablets by it[facility] of 24 hr 00:00: mouth at [place] tablet 00 bedtime. [facility] divalproex 2018- Yes [id number] 500mg Take 2 [facility] 250 mg 9-10 tablets by it[facility] of 24 hr 00:00: mouth at [place] tablet 00 bedtime. [facility] divalproex 2018-0 Yes [id number] 500mg Take 2 [facility] 250 mg 9-10 tablets by it[facility] of 24 hr 00:00: mouth at [place] tablet 00 bedtime. [facility] divalproex Yes [id number] 500mg Take 2 [facility] 250 mg 9-10 tablets by [facility] of 24 hr 00:00: mouth at [place] tablet 00 bedtime. [facility] divalproex 2018-0 Yes [id number] 500mg Take 2 [facility] 250 mg 9-10 tablets by it[facility] of 24 hr 00:00: mouth at [place] tablet 00 bedtime. [facility] divalproex 2018-0 Yes [id number] 500mg Take 2 [facility] 250 mg 9-10 tablets by [facility] of 24 hr 00:00: mouth at [place] tablet 00 bedtime. [facility] divalproex 2018-0 Yes [id number] 500mg Take 2 [facility] 250 mg 9-10 tablets by [facility] of 24 hr 00:00: mouth at [place] tablet 00 bedtime. [facility] divalproex 2018-0 Yes [id number] 500mg Take 2 [facility] 250 mg 9-10 tablets by it[facility] of 24 hr 00:00: mouth at [place] tablet 00 bedtime. [facility] divalproex 2018-0 Yes [id number] 500mg Take 2 [facility] 250 mg 9-10 tablets by it[facility] of 24 hr 00:00: mouth at [place] tablet 00 bedtime. [facility] divalproex 2019-0 Yes [id number] 500mg Take 2 [facility] 250 mg 9-10 tablets by it[facility] of 24 hr 00:00: mouth at [place] tablet 00 bedtime. [facility] divalproex 2018-0 Yes [id number] 500mg Take 2 [facility] 250 mg 9-10 tablets by it[facility] of 24 hr 00:00: mouth at [place] tablet 00 bedtime. [facility] divalproex 2018-0 Yes [id number] 500mg Take 2 [facility] ER 250 mg 9-10 tablets by ity of 24 hr 00:00: mouth at [place] tablet 00 bedtime. [facility] divalproex 2018- Yes [id number] 500mg Take 2 [facility] ER 250 mg 9-10 tablets by ity of 24 hr 00:00: mouth at [place] tablet 00 bedtime. [facility] divalproex 0 Yes [id number] 500mg Take 2 [facility] ER 250 mg 9-10 tablets by it[facility] of 24 hr 00:00: mouth at [place] tablet 00 bedtime. [facility] TOPIRAMATE 2018-0 Yes [id number] TAKE 1 [facility] 25 mg 8-28 TABLET BY it[facility] of tablet 00:00: MOUTH TWO [place] TIMES Medical DAILY Branch TOPIRAMATE 2018-0 Yes [id number] TAKE 1 [facility] 25 mg 8-28 TABLET BY ity of tablet 00:00: MOUTH TWO [place] Medical DAILY Branch TOPIRAMATE 2018-0 Yes [id number] TAKE 1 [facility] 25 mg 8-28 TABLET BY ity of tablet 00:00: MOUTH TWO [place] Medical DAILY Branch TOPIRAMATE 2018-0 Yes [id number] TAKE 1 [facility] 25 mg 8-28 TABLET BY ity of tablet 00:00: MOUTH TWO [place] Medical DAILY Branch TOPIRAMATE 2018-0 Yes [id number] TAKE 1 [facility] 25 mg 8-28 TABLET BY ity of tablet 00:00: MOUTH TWO [place] TIMES Medical DAILY Branch TOPIRAMATE 2018-0 Yes [id number] TAKE 1 [facility] 25 mg 8-28 TABLET BY it[facility] of tablet 00:00: MOUTH TWO [place] Medical DAILY Branch TOPIRAMATE 2018-0 Yes [id number] TAKE 1 [facility] 25 mg 8-28 TABLET BY ity of tablet 00:00: MOUTH TWO [place] TIMES Medical DAILY Branch TOPIRAMATE 2018-0 Yes [id number] TAKE 1 [facility] 25 mg 8-28 TABLET BY ity of tablet 00:00: MOUTH TWO [place] Medical DAILY Branch TOPIRAMATE 2019-0 Yes [id number] TAKE 1 [facility] 25 mg 8-28 TABLET BY it[facility] of tablet 00:00: MOUTH TWO [place] Medical DAILY Branch TOPIRAMATE 0 Yes [id number] TAKE 1 [facility] 25 mg 8-28 TABLET BY ity of tablet 00:00: MOUTH TWO [place] Medical DAILY Branch TOPIRAMATE 20190 Yes [id number] TAKE 1 [facility] 25 mg 8-28 TABLET BY it[facility] of tablet 00:00: MOUTH TWO [place] Medical DAILY Branch TOPIRAMATE 0 Yes [id number] TAKE 1 [facility] 25 mg 8-28 TABLET BY it[facility] of tablet 00:00: MOUTH TWO [place] Medical DAILY Branch TOPIRAMATE Yes [id number] TAKE 1 [facility] 25 mg 8-28 TABLET BY it[facility] of tablet 00:00: MOUTH TWO [place] Medical DAILY Branch TOPIRAMATE Yes [id number] TAKE 1 [facility] 25 mg 8-28 TABLET BY it[facility] of tablet 00:00: MOUTH TWO [place] Medical DAILY Branch TOPIRAMATE 0 Yes [id number] TAKE 1 [facility] 25 mg 8-28 TABLET BY [facility] tablet 00:00: MOUTH TWO [place] [facility] TOPIRAMATE 0 Yes [id number] TAKE 1 [facility] 25 mg 8-28 TABLET BY [facility] tablet 00:00: MOUTH TWO [place] [facility] TOPIRAMATE 0 Yes [id number] TAKE 1 [facility] 25 mg 8-28 TABLET BY [facility] of tablet 00:00: MOUTH TWO [place] [facility] TOPIRAMATE 0 2020- No [id number] TAKE 1 [facility] 25 mg 8-28 04-22 TABLET BY [facility] of tablet 00:00: 00:00 MOUTH TWO [place] 00 :00 TIMES Medical DAILY Branch paliperidon 2019-0 Yes [id number] TAKE 1 [facility] e 3 mg 24 8-07 TABLET BY ity o f hour tablet 00:00: MOUTH ONCE [place] DAILY [facility] PALIPERIDON 2019-0 Yes [id number] TAKE 1 [facility] E 3 mg 24 8-07 TABLET BY ity o f hour tablet 00:00: MOUTH ONCE [place] DAILY [facility] paliperidon 2019-0 Yes [id number] TAKE 1 [facility] e 3 mg 24 8-07 TABLET BY ity o f hour tablet 00:00: MOUTH ONCE DAILY [facility] PALIPERIDON 2019 Yes [id number] TAKE 1 [facility] E 3 mg 24 8-07 TABLET BY ity o f hour tablet 00:00: MOUTH ONCE DAILY [facility] paliperidon 2019 Yes [id number] TAKE 1 [facility] e 3 mg 24 8-07 TABLET BY [facility]y o f hour tablet 00:00: MOUTH ONCE DAILY [facility] PALIPERIDON 2019 Yes [id number] TAKE 1 [facility] E 3 mg 24 8-07 TABLET BY ity o f hour tablet 00:00: MOUTH ONCE DAILY [facility] paliperidon 2019 Yes [id number] TAKE 1 [facility] e 3 mg 24 8-07 TABLET BY ity o f hour tablet 00:00: MOUTH ONCE DAILY [facility] PALIPERIDON 2019 Yes [id number] TAKE 1 [facility] E 3 mg 24 8-07 TABLET BY ity o f hour tablet 00:00: MOUTH ONCE DAILY [facility] paliperidon 2019 Yes [id number] TAKE 1 [facility] e 3 mg 24 8-07 TABLET BY ity o f hour tablet 00:00: MOUTH ONCE DAILY [facility] PALIPERIDON 2019 Yes [id number] TAKE 1 [facility] E 3 mg 24 8-07 TABLET BY ity o f hour tablet 00:00: MOUTH ONCE DAILY [facility] paliperidon 2019- Yes [id number] TAKE 1 [facility] e 3 mg 24 8-07 TABLET BY ity o f hour tablet 00:00: MOUTH ONCE DAILY [facility] PALIPERIDON 2019 Yes [id number] TAKE 1 [facility] E 3 mg 24 8-07 TABLET BY ity o f hour tablet 00:00: MOUTH ONCE DAILY [facility] paliperidon 2019 Yes [id number] TAKE 1 [facility] e 3 mg 24 8-07 TABLET BY ity o f hour tablet 00:00: MOUTH ONCE DAILY [facility] PALIPERIDON 2019- Yes [id number] TAKE 1 [facility] E 3 mg 24 8-07 TABLET BY ity o f hour tablet 00:00: MOUTH ONCE DAILY [facility] paliperidon 2019 Yes [id number] TAKE 1 [facility] e 3 mg 24 8-07 TABLET BY ity o f hour tablet 00:00: MOUTH ONCE DAILY [facility] PALIPERIDON 2019 Yes [id number] TAKE 1 [facility] E 3 mg 24 8-07 TABLET BY ity o f hour tablet 00:00: MOUTH ONCE DAILY [facility] paliperidon 2019- Yes [id number] TAKE 1 [facility] e 3 mg 24 8-07 TABLET BY ity o f hour tablet 00:00: MOUTH ONCE DAILY [facility] PALIPERIDON 2019 Yes [id number] TAKE 1 [facility] E 3 mg 24 8-07 TABLET BY ity o f hour tablet 00:00: MOUTH ONCE DAILY [facility] paliperidon 2019 Yes [id number] TAKE 1 [facility] e 3 mg 24 8-07 TABLET BY ity o f hour tablet 00:00: MOUTH ONCE DAILY [facility] PALIPERIDON 2019 Yes [id number] TAKE 1 [facility] E 3 mg 24 8-07 TABLET BY ity o f hour tablet 00:00: MOUTH ONCE DAILY [facility] paliperidon 2019 Yes [id number] TAKE 1 [facility] e 3 mg 24 8-07 TABLET BY ity o f hour tablet 00:00: MOUTH ONCE DAILY [facility] PALIPERIDON 2019 Yes [id number] TAKE 1 [facility] E 3 mg 24 8-07 TABLET BY ity o f hour tablet 00:00: MOUTH ONCE DAILY [facility] paliperidon 2019 Yes [id number] TAKE 1 [facility] e 3 mg 24 8-07 TABLET BY ity o f hour tablet 00:00: MOUTH ONCE DAILY [facility] PALIPERIDON 2019 Yes [id number] TAKE 1 [facility] E 3 mg 24 8-07 TABLET BY ity o f hour tablet 00:00: MOUTH ONCE DAILY [facility] paliperidon 2019 Yes [id number] TAKE 1 [facility] e 3 mg 24 8-07 TABLET BY ity o f hour tablet 00:00: MOUTH ONCE DAILY [facility] paliperidon 2019- Yes [id number] TAKE 1 [facility] e 3 mg 24 8-07 TABLET BY ity o f hour tablet 00:00: MOUTH ONCE DAILY [facility] paliperidon 2019 Yes [id number] TAKE 1 [facility] e 3 mg 24 8-07 TABLET BY ity o f hour tablet 00:00: MOUTH ONCE DAILY [facility] paliperidon 2019 Yes [id number] TAKE 1 [facility] e 3 mg 24 8-07 TABLET BY ity o f hour tablet 00:00: MOUTH ONCE [place] 00 DAILY Medical Branch PALIPERIDON 2019-0 Yes [id number] TAKE 1 [facility] E 3 mg 24 8-07 TABLET BY ity o f hour tablet 00:00: MOUTH ONCE [place] 00 DAILY Medical Branch clonazePAM 2019-0 Yes [id number] .5mg Take 2 [facility] 0.25 mg 7-26 105 tablets by [facility] of disintegrat 00:00: [place] 00 bedtime. [facility] clonazePAM 2018-0 Yes [id number] .5mg Take 2 [facility] 0.25 mg 7-26 105 tablets by ity of disintegrat 00:00: [place] 00 bedtime. [facility] Branch clonazePAM 2018-0 Yes [id number] .5mg Take 2 [facility] 0.25 mg 7-26 105 tablets by ity of disintegrat 00:00: [place] 00 bedtime. [facility] clonazePAM 2018-0 Yes [id number] .5mg Take 2 [facility] 0.25 mg 7-26 105 tablets by ity of disintegrat 00:00: [place] 00 bedtime. [facility] clonazePAM 2018-0 Yes [id number] .5mg Take 2 [facility] 0.25 mg 7-26 105 tablets by ity of disintegrat 00:00: [place] 00 bedtime. [facility] clonazePAM 2018-0 Yes [id number] .5mg Take 2 [facility] 0.25 mg 7-26 105 tablets by ity of disintegrat 00:00: [place] 00 bedtime. [facility] clonazePAM 2019-0 Yes [id number] .5mg Take 2 [facility] 0.25 mg 7-26 105 tablets by ity of disintegrat 00:00: [place] 00 bedtime. [facility] clonazePAM 2018-0 Yes [id number] .5mg Take 2 [facility] 0.25 mg 7-26 105 tablets by ity of disintegrat 00:00: [place] 00 bedtime. [facility] clonazePAM 2018-0 Yes [id number] .5mg Take 2 [facility] 0.25 mg 7-26 105 tablets by ity of disintegrat 00:00: [place] 00 bedtime. [facility] clonazePAM 2019-0 Yes [id number] .5mg Take 2 [facility] 0.25 mg 7-26 105 tablets by ity of disintegrat 00:00: [place] 00 bedtime. [facility] clonazePAM 2019-0 Yes [id number] .5mg Take 2 [facility] 0.25 mg 7-26 105 tablets by ity of disintegrat 00:00: [place] 00 bedtime. [facility] clonazePAM 2019-0 Yes [id number] .5mg Take 2 [facility] 0.25 mg 7-26 105 tablets by ity of disintegrat 00:00: [place] 00 bedtime. [facility] clonazePAM 2019-0 Yes [id number] .5mg Take 2 [facility] 0.25 mg 7-26 105 tablets by ity of disintegrat 00:00: [place] 00 bedtime. [facility] clonazePAM 2019-0 Yes [id number] .5mg Take 2 [facility] 0.25 mg 7-26 105 tablets by ity of disintegrat 00:00: [place] 00 bedtime. [facility] clonazePAM 2019-0 Yes [id number] .5mg Take 2 [facility] 0.25 mg 7-26 105 tablets by ity of disintegrat 00:00: [place] 00 bedtime. [facility] clonazePAM 2019-0 Yes [id number] .5mg Take 2 [facility] 0.25 mg 7-26 105 tablets by ity of disintegrat 00:00: [place] 00 bedtime. [facility] spironolact 2019-0 Yes Univer s one 25 mg 4-11 ity of tablet 00:00: [place] [facility] spironolact 2019-0 Yes Univer s one 25 mg 4-11 ity of tablet 00:00: [place] [facility] spironolact 2019-0 Yes Univer s one 25 mg 4-11 ity of tablet 00:00: [place] [facility] spironolact 2019-0 Yes Univer s one 25 mg 4-11 ity of tablet 00:00: [place] [facility] spironolact 2019-0 Yes Univer s one 25 mg 4-11 ity of tablet 00:00: [place] [facility] spironolact 2019-0 Yes Univer s one 25 mg 4-11 ity of tablet 00:00: [place] 00 [facility] spironolact 2019-0 Yes Univer s one 25 mg 4-11 ity of tablet 00:00: [place] 00 [facility] spironolact 2019-0 Yes Univer s one 25 mg 4-11 ity of tablet 00:00: [place] 00 [facility] spironolact 2019-0 Yes Univer s one 25 mg 4-11 ity of tablet 00:00: [place] [address] [facility] Branch spironolact 2019-0 Yes Univer s one 25 mg 4-11 ity of tablet 00:00: [place] [address] [facility] Branch spironolact 2019-0 Yes Univer s one 25 mg 4-11 ity of tablet 00:00: [place] [address] [facility] spironolact 2019-0 Yes Univer s one 25 mg 4-11 ity of tablet 00:00: [place] [address] [facility] spironolact 2019-0 Yes Univer s one 25 mg 4-11 ity of tablet 00:00: [place] [address] [facility] spironolact 2019-0 Yes Univer s one 25 mg 4-11 ity of tablet 00:00: [place] [address] [facility] Branch spironolact 2019-0 Yes Univer s one 25 mg 4-11 ity of tablet 00:00: [place] [address] [facility] spironolact 2019-0 Yes Univer s one 25 mg 4-11 ity of tablet 00:00: [place] [address] [facility] spironolact 2019-0 Yes Univer s one 25 mg 4-11 ity of tablet 00:00: [place] [address] [facility] spironolact 2019-0 Yes Univer s one 25 mg 4-11 ity of tablet 00:00: [place] 00 [facility] spironolact 2019-0 Yes Univer s one 25 mg 4-11 ity of tablet 00:00: [place] [address] [facility] spironolact 2019-0 Yes Univer s one 25 mg 4-11 ity of tablet 00:00: [place] [address] [facility] spironolact 2019-0 Yes Univer s one 25 mg 4-11 ity of tablet 00:00: [place] [address] [facility] spironolact 2019-0 Yes Univer s one 25 mg 4-11 ity of tablet 00:00: [place] [address] [facility] spironolact 2019-0 Yes Univer s one 25 mg 4-11 ity of tablet 00:00: [place] 00 [facility] spironolact 2019-0 Yes Univer s one 25 mg 4-11 ity of tablet 00:00: [place] 00 [facility] Branch spironolact 2019-0 Yes Univer s one 25 mg 4-11 ity of tablet 00:00: [place] 00 [facility] Branch spironolact 2019-0 Yes Univer s one 25 mg 4-11 ity of tablet 00:00: [place] 00 [facility] spironolact 2019-0 Yes Univer s one 25 mg 4-11 ity of tablet 00:00: [place] 00 [facility] spironolact 2019-0 Yes Univer s one 25 mg 4-11 ity of tablet 00:00: [place] [address] [facility] Branch spironolact 2019-0 Yes Univer s one 25 mg 4-11 ity of tablet 00:00: [place] [address] [facility] spironolact 2019-0 Yes Univer s one 25 mg 4-11 ity of tablet 00:00: [place] [address] [facility] spironolact 2019-0 Yes Univer s one 25 mg 4-11 ity of tablet 00:00: [place] [address] [facility] spironolact 2019-0 Yes Un[facility] one 25 mg 4-11 ity of tablet 00:00: [place] [address] [facility] spironolact 2019-0 Yes Univer s one 25 mg 4-11 ity of tablet 00:00: [place] [address] [facility] spironolact 2019-0 Yes Univer s one 25 mg 4-11 ity of tablet 00:00: [place] [address] [facility] spironolact 2019-0 Yes Univer s one 25 mg 4-11 ity of tablet 00:00: [place] 00 [facility] spironolact 2019-0 Yes Univer s one 25 mg 4-11 ity of tablet 00:00: [place] [address] [facility] spironolact 2019-0 Yes Univer s one 25 mg 4-11 ity of tablet 00:00: [place] [address] [facility] spironolact 2019-0 Yes Univer s one 25 mg 4-11 ity of tablet 00:00: [place] [address] [facility] spironolact 2019-0 Yes Univer s one 25 mg 4-11 ity of tablet 00:00: [place] [address] [facility] spironolact 2019-0 Yes Univer s one 25 mg 4-11 ity of tablet 00:00: [place] 00 [facility] spironolact 2019-0 Yes Univer s one 25 mg 4-11 ity of tablet 00:00: [place] 00 [facility] spironolact 2019-0 Yes Univer s one 25 mg 4-11 ity of tablet 00:00: [place] 00 [facility] spironolact 2019-0 Yes Univer s one 25 mg 4-11 ity of tablet 00:00: [place] 00 [facility] spironolact 2019-0 Yes Univer s one 25 mg 4-11 ity of tablet 00:00: [place] 00 [facility] spironolact 2019-0 Yes Univer s one 25 mg 4-11 ity of tablet 00:00: [place] 00 [facility] spironolact 2019-0 Yes Univer s one 25 mg 4-11 ity of tablet 00:00: [place] 00 [facility] spironolact 2019-0 Yes Univer s one 25 mg 4-11 ity of tablet 00:00: [place] [address] [facility] spironolact 2019-0 Yes Univer s one 25 mg 4-11 ity of tablet 00:00: [place] 00 [facility] spironolact 2019-0 Yes Univer s one 25 mg 4-11 ity of tablet 00:00: [place] 00 [facility] spironolact 2019-0 Yes Univer s one 25 mg 4-11 ity of tablet 00:00: [place] 00 [facility] spironolact 2019-0 Yes Univer s one 25 mg 4-11 ity of tablet 00:00: [place] 00 [facility] spironolact 2019-0 Yes Univer s one 25 mg 4-11 ity of tablet 00:00: [place] 00 [facility] spironolact 2019-0 Yes Univer s one 25 mg 4-11 ity of tablet 00:00: [place] 00 [facility] spironolact 2019-0 Yes Univer s one 25 mg 4-11 ity of tablet 00:00: [place] 00 [facility] spironolact 2019-0 Yes Univer s one 25 mg 4-11 ity of tablet 00:00: [place] 00 [facility] spironolact 2019-0 Yes Univer s one 25 mg 4-11 ity of tablet 00:00: [place] 00 [facility] spironolact 2019-0 Yes Univer s one 25 mg 4-11 ity of tablet 00:00: [place] 00 [facility] spironolact 2019-0 Yes Univer s one 25 mg 4-11 ity of tablet 00:00: [place] 00 [facility] spironolact 2019-0 Yes Univer s one 25 mg 4-11 ity of tablet 00:00: [place] 00 [facility] spironolact 2019-0 Yes Univer s one 25 mg 4-11 ity of tablet 00:00: [place] [address] [facility] Branch spironolact 2019-0 Yes Univer s one 25 mg 4-11 ity of tablet 00:00: [place] 00 [facility] Branch spironolact 2019-0 Yes Univer s one 25 mg 4-11 ity of tablet 00:00: [place] [address] [facility] Branch spironolact 2019-0 Yes Univer s one 25 mg 4-11 ity of tablet 00:00: [place] [address] [facility] spironolact 2019-0 Yes Univer s one 25 mg 4-11 ity of tablet 00:00: [place] [address] [facility] spironolact 2019-0 Yes Univer s one 25 mg 4-11 ity of tablet 00:00: [place] [address] [facility] spironolact 2019-0 Yes Univer s one 25 mg 4-11 ity of tablet 00:00: [place] [address] [facility] spironolact 2019-0 Yes Univer s one 25 mg 4-11 ity of tablet 00:00: [place] [address] [facility] spironolact 2019-0 Yes Univer s one 25 mg 4-11 ity of tablet 00:00: [place] [address] [facility] spironolact 2019-0 Yes Univer s one 25 mg 4-11 ity of tablet 00:00: [place] [address] [facility] spironolact 2019-0 Yes Univer s one 25 mg 4-11 ity of tablet 00:00: [place] 00 [facility] spironolact 2019-0 Yes Univer s one 25 mg 4-11 ity of tablet 00:00: [place] [address] [facility] spironolact 2019-0 Yes Univer s one 25 mg 4-11 ity of tablet 00:00: [place] 00 [facility] spironolact 2019-0 Yes Univer s one 25 mg 4-11 ity of tablet 00:00: [place] [address] [facility] spironolact 2019-0 Yes Univer s one 25 mg 4-11 ity of tablet 00:00: [place] [address] [facility] spironolact 2019-0 Yes Univer s one 25 mg 4-11 ity of tablet 00:00: [place] [facility] spironolact 2019-0 Yes Univer s one 25 mg 4-11 ity of tablet 00:00: [place] [facility] spironolact 2019-0 Yes Univer s one 25 mg 4-11 ity of tablet 00:00: [place] [facility] spironolact 2019-0 Yes Univer s one 25 mg 4-11 ity of tablet 00:00: [place] [facility] spironolact 2019-0 Yes Univer s one 25 mg 4-11 ity of tablet 00:00: [place] [facility] tamsulosin 2019-0 Yes Univers 0.4 mg 24 4-09 ity of hr capsule 00:00: [place] [facility] tamsulosin 2019-0 Yes [facility] 0.4 mg 24 4-09 ity of hr capsule 00:00: [place] [facility] tamsulosin 2019-0 Yes [facility] 0.4 mg 24 4-09 ity of hr capsule 00:00: [place] [address] [facility] Branch tamsulosin 2019-0 Yes [facility] 0.4 mg 24 4-09 ity of hr capsule 00:00: [place] [address] [facility] Branch tamsulosin 2019-0 Yes [facility] 0.4 mg 24 4-09 ity of hr capsule 00:00: [place] [address] [facility] Branch tamsulosin 2019-0 Yes [facility] 0.4 mg 24 4-09 ity of hr capsule 00:00: [place] [address] [facility] Branch tamsulosin 2019-0 Yes [facility] 0.4 mg 24 4-09 ity of hr capsule 00:00: [place] [address] [facility] Branch tamsulosin 2019-0 Yes [facility] 0.4 mg 24 4-09 ity of hr capsule 00:00: [place] [facility] tamsulosin 2019-0 Yes [facility] 0.4 mg 24 4-09 ity of hr capsule 00:00: [place] [address] [facility] Branch tamsulosin 2019-0 Yes Univers 0.4 mg 24 4-09 ity of hr capsule 00:00: [place] [address] [facility] Branch tamsulosin 2019-0 Yes [facility] 0.4 mg 24 4-09 ity of hr capsule 00:00: [place] [address] [facility] Branch tamsulosin 2019-0 Yes [facility] 0.4 mg 24 4-09 ity of hr capsule 00:00: [place] [address] [facility] Branch tamsulosin 2019-0 Yes [facility] 0.4 mg 24 4-09 ity of hr capsule 00:00: [place] [address] [facility] Branch tamsulosin 2019-0 Yes [facility] 0.4 mg 24 4-09 ity of hr capsule 00:00: [place] [facility] tamsulosin 2019-0 Yes Univers 0.4 mg 24 4-09 ity of hr capsule 00:00: [place] [facility] tamsulosin 2019-0 Yes [facility] 0.4 mg 24 4-09 ity of hr capsule 00:00: [place] [facility] tamsulosin 2019-0 Yes Univers 0.4 mg 24 4-09 ity of hr capsule 00:00: [place] [facility] tamsulosin 2019-0 Yes [facility] 0.4 mg 24 4-09 ity of hr capsule 00:00: [place] [facility] tamsulosin 2019-0 Yes [facility] 0.4 mg 24 4-09 ity of hr capsule 00:00: [place] [facility] tamsulosin 2019-0 Yes [facility] 0.4 mg 24 4-09 ity of hr capsule 00:00: [place] [facility] tamsulosin 2019-0 Yes [facility] 0.4 mg 24 4-09 ity of hr capsule 00:00: [place] [facility] tamsulosin 2019-0 Yes [facility] 0.4 mg 24 4-09 ity of hr capsule 00:00: [place] [facility] tamsulosin 2019-0 Yes [facility] 0.4 mg 24 4-09 ity of hr capsule 00:00: [place] [facility] tamsulosin 2019-0 Yes [facility] 0.4 mg 24 4-09 ity of hr capsule 00:00: [place] [facility] tamsulosin 2019-0 Yes [facility] 0.4 mg 24 4-09 ity of hr capsule 00:00: [place] [facility] tamsulosin 2019-0 Yes [facility] 0.4 mg 24 4-09 ity of hr capsule 00:00: [place] [facility] tamsulosin 2019-0 Yes [facility] 0.4 mg 24 4-09 ity of hr capsule 00:00: [place] [facility] tamsulosin 2019-0 Yes [facility] 0.4 mg 24 4-09 ity of hr capsule 00:00: [place] [facility] tamsulosin 2019-0 Yes [facility] 0.4 mg 24 4-09 ity of hr capsule 00:00: [place] [facility] tamsulosin 2019-0 Yes [facility] 0.4 mg 24 4-09 ity of hr capsule 00:00: [place] [facility] tamsulosin 2019-0 Yes [facility] 0.4 mg 24 4-09 ity of hr capsule 00:00: [place] [facility] tamsulosin 2019-0 Yes [facility] 0.4 mg 24 4-09 ity of hr capsule 00:00: [place] [facility] tamsulosin 2019-0 Yes Univers 0.4 mg 24 4-09 ity of hr capsule 00:00: [place] [facility] tamsulosin 2019-0 Yes Univers 0.4 mg 24 4-09 ity of hr capsule 00:00: [place] [facility] tamsulosin 2019-0 Yes Univers 0.4 mg 24 4-09 ity of hr capsule 00:00: [place] [facility] tamsulosin 2019-0 Yes [facility] 0.4 mg 24 4-09 ity of hr capsule 00:00: [place] [facility] tamsulosin 2019-0 Yes Univers 0.4 mg 24 4-09 ity of hr capsule 00:00: [place] [address] [facility] Branch tamsulosin 2019-0 Yes Univers 0.4 mg 24 4-09 ity of hr capsule 00:00: [place] [facility] tamsulosin 2019-0 Yes [facility] 0.4 mg 24 4-09 ity of hr capsule 00:00: [place] [address] [facility] Branch tamsulosin 2019-0 Yes [facility] 0.4 mg 24 4-09 ity of hr capsule 00:00: [place] [facility] tamsulosin 2019-0 Yes [facility] 0.4 mg 24 4-09 ity of hr capsule 00:00: [place] [facility] tamsulosin 2019-0 Yes [facility] 0.4 mg 24 4-09 ity of hr capsule 00:00: [place] [facility] tamsulosin 2019-0 Yes [facility] 0.4 mg 24 4-09 ity of hr capsule 00:00: [place] [facility] tamsulosin 2019-0 Yes [facility] 0.4 mg 24 4-09 ity of hr capsule 00:00: [place] [address] [facility] tamsulosin 2019-0 Yes [facility] 0.4 mg 24 4-09 ity of hr capsule 00:00: [place] [address] [facility] tamsulosin 2019-0 Yes [facility] 0.4 mg 24 4-09 ity of hr capsule 00:00: [place] [address] [facility] tamsulosin 2019-0 Yes Univers 0.4 mg 24 4-09 ity of hr capsule 00:00: [place] [address] [facility] tamsulosin 2019-0 Yes [facility] 0.4 mg 24 4-09 ity of hr capsule 00:00: [place] [facility] tamsulosin 2019-0 Yes [facility] 0.4 mg 24 4-09 ity of hr capsule 00:00: [place] [facility] tamsulosin 2019-0 Yes [facility] 0.4 mg 24 4-09 ity of hr capsule 00:00: [place] [facility] tamsulosin 2019-0 Yes [facility] 0.4 mg 24 4-09 ity of hr capsule 00:00: [place] [facility] tamsulosin 2019-0 Yes [facility] 0.4 mg 24 4-09 ity of hr capsule 00:00: [place] [facility] tamsulosin 2019-0 Yes [facility] 0.4 mg 24 4-09 ity of hr capsule 00:00: [place] [facility] tamsulosin 2019-0 Yes [facility] 0.4 mg 24 4-09 ity of hr capsule 00:00: [place] [facility] tamsulosin 2019-0 Yes [facility] 0.4 mg 24 4-09 ity of hr capsule 00:00: [place] [facility] tamsulosin 2019-0 Yes [facility] 0.4 mg 24 4-09 ity of hr capsule 00:00: [place] [facility] tamsulosin 2019-0 Yes [facility] 0.4 mg 24 4-09 ity of hr capsule 00:00: [place] [facility] tamsulosin 2019-0 Yes [facility] 0.4 mg 24 4-09 ity of hr capsule 00:00: [place] [facility] tamsulosin 2019-0 Yes [facility] 0.4 mg 24 4-09 ity of hr capsule 00:00: [place] [facility] tamsulosin 2019-0 Yes [facility] 0.4 mg 24 4-09 ity of hr capsule 00:00: [place] [facility] tamsulosin 2019-0 Yes [facility] 0.4 mg 24 4-09 ity of hr capsule 00:00: [place] [facility] tamsulosin 2019-0 Yes [facility] 0.4 mg 24 4-09 ity of hr capsule 00:00: [place] [facility] tamsulosin 2019-0 Yes [facility] 0.4 mg 24 4-09 ity of hr capsule 00:00: [place] [address] [facility] Branch tamsulosin 2019-0 Yes [facility] 0.4 mg 24 4-09 ity of hr capsule 00:00: [place] [facility] tamsulosin 2019-0 Yes [facility] 0.4 mg 24 4-09 ity of hr capsule 00:00: [place] [facility] tamsulosin 2019-0 Yes [facility] 0.4 mg 24 4-09 ity of hr capsule 00:00: [place] [facility] tamsulosin 2019-0 Yes [facility] 0.4 mg 24 4-09 ity of hr capsule 00:00: [place] [facility] tamsulosin 2019-0 Yes [facility] 0.4 mg 24 4-09 ity of hr capsule 00:00: [place] [facility] tamsulosin 2019-0 Yes [facility] 0.4 mg 24 4-09 ity of hr capsule 00:00: [place] [facility] tamsulosin 2019-0 Yes [facility] 0.4 mg 24 4-09 ity of hr capsule 00:00: [place] [facility] tamsulosin 2019-0 Yes [facility] 0.4 mg 24 4-09 ity of hr capsule 00:00: [place] [facility] tamsulosin 2019-0 Yes [facility] 0.4 mg 24 4-09 ity of hr capsule 00:00: [place] [facility] tamsulosin 2019-0 Yes [facility] 0.4 mg 24 4-09 ity of hr capsule 00:00: [place] [facility] tamsulosin 2019-0 Yes [facility] 0.4 mg 24 4-09 ity of hr capsule 00:00: [place] [facility] tamsulosin 2019-0 Yes [facility] 0.4 mg 24 4-09 ity of hr capsule 00:00: [place] [address] [facility] tamsulosin 2019-0 Yes [facility] 0.4 mg 24 4-09 ity of hr capsule 00:00: [place] [facility] tamsulosin 2019-0 Yes [facility] 0.4 mg 24 4-09 ity of hr capsule 00:00: [place] [facility] tamsulosin 2019-0 Yes [facility] 0.4 mg 24 4-09 ity of hr capsule 00:00: [place] [address] [facility] tamsulosin 2019-0 Yes [facility] 0.4 mg 24 4-09 ity of hr capsule 00:00: [place] [facility] TOPIRAMATE 2019-0 Yes [id number] TAKE 1 [facility] 25 mg 3-01 TABLET BY ity of tablet 00:00: MOUTH TWO [place] [facility] DAILY [facility] TOPIRAMATE 2019-0 Yes [id number] TAKE 1 [facility] 25 mg 3-01 TABLET BY ity of tablet 00:00: MOUTH TWO [place] [facility] DAILY [facility] TOPIRAMATE 2019-0 Yes [id number] TAKE 1 [facility] 25 mg 3-01 TABLET BY ity of tablet 00:00: MOUTH TWO [place] 00 TIMES Medical DAILY Branch TOPIRAMATE Yes [id number] TAKE 1 [facility] 25 mg 3-01 TABLET BY ity of tablet 00:00: MOUTH TWO [place] 00 TIMES Medical DAILY Branch TOPIRAMATE Yes [id number] TAKE 1 [facility] 25 mg 3-01 TABLET BY ity of tablet 00:00: MOUTH TWO [place] 00 TIMES Medical DAILY Branch TOPIRAMATE Yes [id number] TAKE 1 [facility] 25 mg 3-01 TABLET BY [facility]y of tablet 00:00: MOUTH TWO [place] [place] TIMES Medical DAILY Branch TOPIRAMATE Yes [id number] TAKE 1 Univers 25 mg 3-01 TABLET BY ity of tablet 00:00: MOUTH TWO [place] TIMES Medical DAILY Branch TOPIRAMATE Yes [id number] TAKE 1 [facility] 25 mg 3-01 TABLET BY ity of tablet 00:00: MOUTH TWO [place] TIMES Medical DAILY Branch TOPIRAMATE 2019- No [id number] TAKE 1 Univers 25 mg 3-01 08-28 TABLET BY ity of tablet 00:00: 00:00 MOUTH TWO [place] 00 :00 TIMES Medical DAILY Branch testosteron Yes 50mg Apply 4 Uni vers e 1.25 7-27 Pumps to ity of g/Actuation 00:00: area(s) [place] (1 %) gel 00 daily. 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 Medical pump Indication Branch s: Hypogonadi sm Immunizations Ordered Filled Immunization Date Status Comments [facility] Immunization Name Name SARS-COV-2 COVID-19 2020-06-25 Completed Unive rsity of MODERNA VACCINE 00:00:00 [facility] SARS-COV-2 COVID-19 2020-06-25 Completed Unive rsity of MODERNA VACCINE 00:00:00 [facility] SARS-COV-2 COVID-19 2020-06-25 Completed Unive rsity of MODERNA VACCINE 00:00:00 [facility] SARS-COV-2 COVID-19 2020-06-25 Completed Unive rsity of MODERNA VACCINE 00:00:00 [facility] SARS-COV-2 COVID-19 2020-06-25 Completed Unive rsity of MODERNA VACCINE 00:00:00 [facility] Branch SARS-COV-2 COVID-19 2020-06-25 Completed Unive rsity of MODERNA VACCINE 00:00:00 [facility] SARS-COV-2 COVID-19 2020-06-25 Completed Unive rsity of MODERNA VACCINE 00:00:00 [facility] SARS-COV-2 COVID-19 2020-06-25 Completed Unive rsity of MODERNA VACCINE 00:00:00 [facility] SARS-COV-2 COVID-19 2020-06-25 Completed Unive rsity of MODERNA VACCINE 00:00:00 [place] [facility] SARS-COV-2 COVID-19 2020-06-25 Completed Unive rsity of MODERNA VACCINE 00:00:00 [place] [facility] SARS-COV-2 COVID-19 2020-06-25 Completed Unive rsity of MODERNA VACCINE 00:00:00 [place] [facility] SARS-COV-2 COVID-19 2020-06-25 Completed Unive rsity of MODERNA VACCINE 00:00:00 [place] [facility] SARS-COV-2 COVID-19 2020-06-25 Completed Unive rsity of MODERNA VACCINE 00:00:00 [place] [facility] SARS-COV-2 COVID-19 2020-05-28 Completed Unive rsity of MODERNA VACCINE 00:00:00 [place] [facility] SARS-COV-2 COVID-19 2020-05-28 Completed Unive rsity of MODERNA VACCINE 00:00:00 [place] [facility] SARS-COV-2 COVID-19 2020-05-28 Completed Unive rsity of MODERNA VACCINE 00:00:00 [place] [facility] SARS-COV-2 COVID-19 2020-05-28 Completed Unive rsity of MODERNA VACCINE 00:00:00 [place] [facility] SARS-COV-2 COVID-19 2020-05-28 Completed Unive rsity of MODERNA VACCINE 00:00:00 [place] [facility] SARS-COV-2 COVID-19 2020-05-28 Completed Unive rsity of MODERNA VACCINE 00:00:00 [place] [facility] ical Branch SARS-COV-2 COVID-19 2020-05-28 Completed Unive rsity of MODERNA VACCINE 00:00:00 [place] [facility] SARS-COV-2 COVID-19 2020-05-28 Completed Unive rsity of MODERNA VACCINE 00:00:00 [place] [facility] SARS-COV-2 COVID-19 2020-05-28 Completed Unive rsity of MODERNA VACCINE 00:00:00 [place] [facility] SARS-COV-2 COVID-19 2020-05-28 Completed Unive rsity of MODERNA VACCINE 00:00:00 [place] [facility] ical Branch SARS-COV-2 COVID-19 2020-05-28 Completed Unive rsity of MODERNA VACCINE 00:00:00 [facility] ical Branch SARS-COV-2 COVID-19 2020-05-28 Completed Unive rsity of MODERNA VACCINE 00:00:00 [facility] Branch SARS-COV-2 COVID-19 2020-05-28 Completed Unive rsity of MODERNA VACCINE 00:00:00 [facility] Branch SARS-COV-2 COVID-19 2020-05-28 Completed Unive rsity of MODERNA VACCINE 00:00:00 [facility] Vital Signs Vital Name Observation Time Observation Value Comments Source Systolic blood 2020-07-19 21:14:00 98 mm[Hg] Univer sity of pressure [place] [facility] Diastolic blood 2020-07-19 21:14:00 65 mm[Hg] Unive rsity of pressure [facility] Heart rate 2020-07-19 21:14:00 75 /min Universi [facility] Oxygen saturation in 2020-07-19 21:14:00 96 /min University of Arterial blood by [place] [employer] Pulse oximetry Branch Systolic blood 2020-01-19 20:45:00 119 mm[Hg] Univer sity of pressure [facility] Diastolic blood 2020-01-19 20:45:00 84 mm[Hg] Unive rsity of pressure [facility] Heart rate 2020-01-19 20:45:00 82 /min Universi ty [facility] Body temperature 2020-01-19 20:45:00 37.22 [facility] Body height 2020-01-19 20:45:00 182.9 cm [facility] Body weight 2020-01-19 20:45:00 88.905 kg [facility] BMI 2020-01-19 20:45:00 26.58 kg/m2 Univers ty [facility] Oxygen saturation in 2020-01-19 20:45:00 96 /min University of Arterial blood by [employer] Pulse oximetry Branch Systolic blood 2018-12-26 22:04:00 139 mm[Hg] Univer sity of pressure [facility] Diastolic blood 2018-12-26 22:04:00 83 mm[Hg] Unive rsity of pressure [facility] Heart rate 2018-12-26 22:04:00 62 /min Universi ty [facility] Body temperature 2018-12-26 22:04:00 36.39 Pretty Univ ersity of [facility] Respiratory rate 2018-12-26 22:04:00 17 /min Univ ersity of [facility] Body weight 2018-12-26 22:04:00 87.998 kg Universi ty of [facility] BMI 2018-12-26 22:04:00 26.31 kg/m2 Universi ty of [facility] Systolic blood 2020 15:37:00 115 mm[Hg] Univer sity of pressure [place] [facility] Diastolic blood 2020 15:37:00 78 mm[Hg] Unive rsity of pressure [facility] Heart rate 2020 15:37:00 105 /min Universi ty of [place] [facility] Respiratory rate 2020 15:37:00 14 /min Univ ersity of [facility] Body height 2020 15:37:00 182.9 cm Universi ty of [facility] Body weight 2020 15:37:00 89.54 kg Universi ty of [place] [facility] BMI 2020 15:37:00 26.77 kg/m2 Universi ty of [facility] Systolic blood 2020-07-19 21:14:00 98 mm[Hg] Univer sity of pressure [facility] Diastolic blood 2020-07-19 21:14:00 65 mm[Hg] Unive rsity of pressure [facility] Heart rate 2020-07-19 21:14:00 75 /min Universi ty of [place] [facility] Oxygen saturation in 2020-07-19 21:14:00 96 /min University Arterial blood by [facility] Pulse oximetry Branch Systolic blood 2020-02-02 15:06:00 114 mm[Hg] Univer sity of pressure [facility] Diastolic blood 2020-02-02 15:06:00 78 mm[Hg] Unive rsity of pressure [facility] Heart rate 2020-02-02 15:06:00 103 /min Universi ty of [facility] Respiratory rate 2020-02-02 15:06:00 19 /min Univ ersity of [facility] Body weight 2020-02-02 15:06:00 88.406 kg Universi ty of [facility] BMI 2020-02-02 15:06:00 26.43 kg/m2 Universi ty of [place] [facility] Systolic blood 2020-01-19 20:45:00 119 mm[Hg] Univer sity of pressure [place] [facility] Diastolic blood 2020-01-19 20:45:00 84 mm[Hg] Unive rsity of pressure [facility] Heart rate 2020-01-19 20:45:00 82 /min Universi ty of [place] [facility] Body temperature 2020-01-19 20:45:00 37.22 Pretty Univ ersity of [facility] Body height 2020-01-19 20:45:00 182.9 cm Universi ty of [place] [facility] Body weight 2020-01-19 20:45:00 88.905 kg Universi ty of [facility] BMI 2020-01-19 20:45:00 26.58 kg/m2 Universi ty of [facility] Oxygen saturation in 2020-01-19 20:45:00 96 /min University of Arterial blood by [facility] Pulse oximetry Branch Systolic blood 2019-12-29 15:03:00 126 mm[Hg] Univer sity of pressure [facility] Diastolic blood 2019-12-29 15:03:00 79 mm[Hg] Unive rsity of pressure [facility] Heart rate 2019-12-29 15:03:00 84 /min Universi ty of [facility] Respiratory rate 2019-12-29 15:03:00 17 /min Univ ersity of [facility] Body weight 2019-12-29 15:03:00 87.635 kg Universi ty of [facility] BMI 2019-12-29 15:03:00 26.20 kg/m2 Universi ty of [facility] Systolic blood 2019-11-24 15:01:00 131 mm[Hg] Univer sity of pressure [facility] Diastolic blood 2019-11-24 15:01:00 83 mm[Hg] Unive rsity of pressure [facility] Heart rate 2019-11-24 15:01:00 61 /min Universi ty of [facility] Respiratory rate 2019-11-24 15:01:00 18 /min Univ ersity of [facility] Body weight 2019-11-24 15:01:00 92.08 kg Universi ty of [facility] BMI 2019-11-24 15:01:00 27.53 kg/m2 Universi ty of [place] [facility] Systolic blood 2019-06-08 16:12:00 122 mm[Hg] Univer sity of pressure [place] [facility] Diastolic blood 2019-06-08 16:12:00 81 mm[Hg] Unive rsity of pressure [place] [facility] Heart rate 2019-06-08 16:12:00 57 /min Universi ty of [place] [facility] Respiratory rate 2019-06-08 16:12:00 17 /min Univ ersity of [place] [facility] Body weight 2019-06-08 16:12:00 89.359 kg Universi ty of [place] [facility] BMI 2019-06-08 16:12:00 26.72 kg/m2 Universi ty of [place] [facility] Systolic blood 2019-04-07 16:01:00 116 mm[Hg] Univer sity of pressure [place] [facility] Diastolic blood 2019-04-07 16:01:00 74 mm[Hg] Unive rsity of pressure [place] [facility] Heart rate 2019-04-07 16:01:00 67 /min Universi ty of [place] [facility] Respiratory rate 2019-04-07 16:01:00 18 /min Univ ersity of [place] [facility] Body height 2019-04-07 16:01:00 182.9 cm Universi ty of [place] [facility] Body weight 2019-04-07 16:01:00 89.359 kg Universi ty of [place] [facility] Branch BMI 2019-04-07 16:01:00 26.72 kg/m2 [facility] Systolic blood 2019-03-10 15:50:00 127 mm[Hg] [facility] Diastolic blood 2019-03-10 15:50:00 84 mm[Hg] [facility] Heart rate 2019-03-10 15:50:00 89 /min [facility] Respiratory rate 2019-03-10 15:50:00 18 /min [facility] Body height 2019-03-10 15:50:00 182.9 cm [facility] Body weight 2019-03-10 15:50:00 88.814 kg [facility] BMI 2019-03-10 15:50:00 26.56 kg/m2 [facility] Systolic blood 2019-02-10 15:16:00 127 mm[Hg] [facility] Diastolic blood 2019-02-10 15:16:00 79 mm[Hg] [facility] Heart rate 2019-02-10 15:16:00 100 /min [facility] Respiratory rate 2019-02-10 15:16:00 20 /min [facility] Body height 2019-02-10 15:16:00 182.9 cm [facility] Body weight 2019-02-10 15:16:00 90.719 kg [facility] BMI 2019-02-10 15:16:00 27.12 kg/m2 [facility] Systolic blood 2019-01-06 15:07:00 114 mm[Hg] [facility] [place] [facility] Diastolic blood 2019-01-06 15:07:00 79 mm[Hg] [facility] [place] [facility] Heart rate 2019-01-06 15:07:00 89 /min [facility] Respiratory rate 2019-01-06 15:07:00 17 /min [facility] [place] [facility] Body weight 2019-01-06 15:07:00 87.544 kg [facility] [place] [facility] BMI 2019-01-06 15:07:00 26.18 kg/m2 [facility] Body temperature 2018-12-26 22:04:00 36.39 Pretty [facility] [place] [facility] Systolic blood 2018-12-09 15:09:00 118 mm[Hg] [facility] [place] [facility] Diastolic blood 2018-12-09 15:09:00 80 mm[Hg] [facility] [place] [facility] Heart rate 2018-12-09 15:09:00 58 /min [facility] [place] [facility] Respiratory rate 2018-12-09 15:09:00 17 /min [facility] Body weight 2018-12-09 15:09:00 87.998 kg [facility] BMI 2018-12-09 15:09:00 26.31 kg/m2 [facility] Body height 2018-09-22 18:03:00 182.9 cm [facility] Body temperature 2018 22:30:00 36.22 [facility] Procedures Procedure Date / Time Performing Clinician Source Performed VALPROIC ACID, TOTAL 2020-07-19 21:54:00 Louise [address]y Moe [facility] SARS-COV-2 COVID-19 2020-06-25 20:02:30 Danna Mccracken [facility] VACCINE,0.5ML,IM (MODERNA) [place] SARS-COV-2 COVID-19 2020-05-28 20:50:30 Genie Good [facility] VACCINE,0.5ML,IM (MODERNA) Medic mt Branch VALPROIC ACID, TOTAL 2020-02-07 15:21:00 [place] Hugo [facility] CBC WITH DIFF 2020-02-07 15:21:00 [place]ion [facility] GLYCOSYLATED HEMOGLOBIN 2020-02-07 15:21:00 Hugo Dyer [facility] (A1C) [facility] THYROID STIMULATING 2020-02-07 15:21:00 Gomez [facility] COMP. METABOLIC PANEL 2020-02-07 15:21:00 Gomez [facility] ([id number]) [facility] LIPID PANEL (31292)(TOTAL 2020-02-07 15:21:00 Gomez [facility] CHOLESTEROL, [facility] TRIGLYCERIDES, HDL) CBC WITH DIFF 2020-02-07 15:21:00 Gomez [facility] COMP. METABOLIC PANEL 2020-02-07 15:21:00 Gomez [facility] ([id number]) [facility] GLYCOSYLATED HEMOGLOBIN 2020-02-07 15:21:00 Hugo Dyer [facility] (A1C) [facility] LIPID PANEL (05251)(TOTAL 2020-02-07 15:21:00 [facility] CHOLESTEROL, [facility] TRIGLYCERIDES, HDL) VALPROIC ACID, TOTAL 2020-02-07 15:21:00 Hugo Dyer [facility] THYROID STIMULATING 2020-02-07 15:21:00 Gomez [facility] NOTICE OF PRIVACY 2020-02-07 14:56:54 Doctor Unassigned, [facility] PRACTICES [facility] CONSENT/REFUSAL FOR 2020-02-07 14:56:36 Doctor Roger [facility] DIAGNOSIS AND TREATMENT [facility] CONSENT/REFUSAL FOR 2020-02-07 14:56:36 Doctor Roger [facility] DIAGNOSIS AND TREATMENT [facility] ASSIGNMENT OF BENEFITS 2020-02-07 14:56:19 [facility] ASSIGNMENT OF BENEFITS 2020-02-07 14:56:19 [facility] LIPID PANEL (76367)(TOTAL 2019-02-20 15:50:00 Thong [facility] CHOLESTEROL, Pilar Macnini [facility] TRIGLYCERIDES, HDL) GLYCOSYLATED HEMOGLOBIN 2019-02-20 15:50:00 Thong [facility] (A1C) Pilar Mancini [facility] NOTICE OF BILLING 2019-02-10 15:07:07 Doctor Duran, [facility] PRACTICES FOR MEDICARE [place] [facility] PATIENTS [facility] PATIENT FINANCIAL 2019-02-10 15:06:44 Doctor Roger, [facility] POLICY [facility] NO SHOW OR MISSED 2019-02-10 15:06:16 Doctor Duran [facility] APPOINTMENT POLICY [place] [facility] ACKNOWLEDGEMENT EXTERNAL PROVIDER RECORDS 2018-11-21 05:01:00 Doctor Duran, [facility] Encounters Start End Encounter Admission Attending Care Care Encounter Source Date/Time Date/Time Type Type Clinicians Facility Department ID 2021-01-17 2021-01-17 Outpatient R MAMADOU GIL [facility] [id number] [facility] 15:40:00 15:40:00 MAMADOU GIL [id number] [facility] 2021-01-09 2021-01-09 Outpatient [facility]MLC [facility] [id number] [id number] [place] [facility] 2020-11-08 2020-11-08 Outpatient R [facility] [id number] Univers 10:45:00 10:45:00 [id number] 2020-11-08 2020-11-08 Outpatient R MAMI GODOY [facility] [id number] Univers 10:45:00 10:45:00 [facility] [place] [facility] 2020-10-21 2020-10-21 Outpatient STLMLC [facility] [id number] [facility] Susu [facility] 2020 2020 Outpatient R [facility] [id number] Univers 10:45:00 10:45:00 [id number] [facility] 2020 2020 Outpatient R MAMI GODOY [facility] [id number] Univers 10:45:00 10:45:00 [facility] [place] [facility] 2020 2020 Travel 1.2.840.1 1.2.826.466 [id number] Univers 00:00:00 00:00:00 98657.1.1 350.1.13.10 ity of 3.104.2.[place] 084.8 Medica l .8 Branch 2020-09-12 2020-09-12 Outpatient R [facility] [id number] Univers 10:45:00 10:45:00 [id number] [facility] [place] [facility] 2020-09-12 2020-09-12 Outpatient R MAMI GODOY [facility] [id number] Univers 10:45:00 10:45:00 [facility] [place] [facility] 2020-09-06 2020-09-06 Outpatient R [facility] [id number] Univers 10:00:00 10:00:00 [id number] [facility] [place] [facility] 2020-09-05 2020-09-05 Outpatient R [facility] [id number] Univers 10:00:00 10:00:00 [id number] [facility] [place] [facility] 2020-08-30 2020-08-30 Outpatient R [facility] [id number] Univers 10:00:00 10:00:[id number] 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 [id number] Univers 15:00:00 15:00:00 [facility] [id number] [facility] 2020-07-19 2020-07-19 Outpatient Mychal MAMADOU GIL [facility] [id number] Univers 15:00:00 15:00:00 MAMADOU GIL [facility] 2020-07-19 2020-07-19 Travel 1.2.840.1 1.2.719.570 [id number] Univers 00:00:00 00:00:00 23735.1.1 350.1.13.10 ity of 3.104.2.[place]698 [place] 084.8 Med[place] l .8 [place] 2020-07-18 2020-07-18 Outpatient R [facility] [id number] Univers 10:00:00 10:00:00 [id number] [facility] 2020-07-18 2020-07-18 Outpatient R MAMI GODOY [facility] [id number] Univers 10:00:00 10:00:[address] [facility] 2020-07-12 2020-07-12 Outpatient R [facility] [id number] Univers 10:00:00 10:00:[id number] [facility] 2020-06-25 2020-06-25 Outpatient R KORY [facility] [id number] Univers 14:10:00 14:10:00 IVÁN [id number] ity [facility] 2020-06-25 2020-06-25 Outpatient Mychal ALEGRIA [facility] [id number] Univers 14:10:00 14:10:00 IVÁN ity [facility] 2020-06-25 2020-06-25 Imm/Inj Iván Alegria M 1.2.840.1 [id number] Univers 14:00:29 14:01:18 Visit Nurse, Alana Pob Immunization 77529.1.1 ity of 3.104.2.7 [place] .3.937746 Medica l .8 [place] 2020-06-07 2020-06-07 Outpatient R [facility] [id number] Univers 10:00:00 10:00:[id number] [facility] 2020-06-07 2020-06-07 Outpatient MAMI NOBLE [facility] [id number] Univers 10:00:00 10:00:[address] [facility] 2020-05-28 2020-05-28 Outpatient R KORY [facility] [id number] Univers 15:00:00 15:00:00 IVÁN ity [facility] 2020-05-28 2020-05-28 Imm/Inj Iván Alegria 1.2.840.1 [id number] Univers 14:46:27 14:49:49 Visit Nurse, Alana Pob Immunization 10001.1.1 ity of 3.104.2.7 [place] .3.335613 Medica l .8 [place] 2020-05-28 2020-05-28 Outpatient R KORY [facility] [id number] Univers 09:10:00 09:10:00 IVÁN [id number] ity [facility] 2020-05-11 2020-05-11 Outpatient R [facility] [id number] Univers 17:40:00 17:40:[id number] [facility] 2020-05-11 2020-05-11 Outpatient R ALISIA, [facility] [id number] Univers 17:40:00 17:40:[address] [facility] 2020-05-11 2020-05-11 TelemedicShilpi Prakash 1.2.840.9 [id number] Univers 15:55:08 16:15:08 ne Visit Unknown, Attending 14305.1.1 ity of Care, Provider 25 - Adult & Pedi Urgent 3.104.2.7 [facility].250737 Medica l .8 Branch 2020-04-26 2020-04-26 Outpatient R [facility] [id number] Univers 10:00:00 10:00:[id number] [facility] 2020-04-26 2020-04-26 Outpatient R MAMI GODOY [facility] [id number] Univers 10:00:00 10:00:[address] [facility] 2020-03-15 2020-03-15 Outpatient R [facility] [id number] Univers 10:00:00 10:00:00 [id number] [facility] [place] [facility] 2020-03-15 2020-03-15 Outpatient R MAMI GODOY [facility] [id number] Univers 10:00:00 10:00:[address] [facility] 2020-02-16 2020-02-16 Outpatient R [facility] [id number] Univers 14:15:00 14:15:[address] [facility] 2020-02-16 2020-02-16 Outpatient R KAMILLA [facility] [id number] Univers 14:15:00 14:15:[address] [facility] 2020-02-09 2020-02-09 Outpatient R [facility] [id number] Univers 10:00:00 10:00:[id number] [facility] 2020-02-08 2020-02-08 Outpatient R [facility] [id number] Univers 10:00:00 10:00:[id number] [facility] 2020-02-07 2020-02-07 Outpatient R [facility] [id number] Univers 10:30:00 10:30:00 [id number] [facility] [place] [facility] 2020-02-07 2020-02-07 Outpatient R ALBERTTONNY [facility] [id number] Univers 10:30:00 10:30:00 ADRIAN [facility] [place] [facility] 2020-02-07 2020-02-07 Gas M[employer] Mechanic Adrian Araujo 1.2.840.1 [id number] Univers 09:57:45 10:12:45 Visit Pob, Adc Lab Main 11611.1.1 ity of 3.104.2.7 [place] .3.542533 Medica l .8 [place] 2020-02-07 2020-02-07 Orders Doctor 1.2.840.1 [id number] Univers 00:00:00 00:00:00 Only Unassigned, 28698.1.1 ity of [place] 3.104.2.7 [place] .3.425456 Medica l .8 [place] 2020-02-07 2020-02-07 Travel 1.2.840.1 1.2.338.402 [id number] Univers 00:00:00 00:00:00 35285.1.1 350.1.13.10 ity of 3.104.2.7 [place].3.698 [place]3.201578 084.8 Med[place] l .8 [place] 2020-02-04 2020-02-04 Nurse Renetta, 1.2.840.9 [id number] Univers 00:00:00 00:00:00 Triage Ariana T 42665.1.1 ity of 3.104.2.7 [place] .3.407159 Medica l .8 [place] 2020-02-04 2020-02-04 Telephone Louise, 1.2.840.3 [id number] Univers 00:00:00 00:00:00 Mamadou Gene 09248.1.1 ity of 3.104.2.7 [place] .3.928021 Medica l .8 [place] 2020-02-02 2020-02-02 Outpatient R [facility] [id number] Univers 10:00:00 10:00:00 [id number] [facility] [place] [facility] 2020-02-02 2020-02-02 Outpatient MAMI NOBLE [facility] [id number] Univers 10:00:00 10:00:00 [facility] [place] [facility] 2020-02-02 2020-02-02 Travel 1.2.840.1 1.2.719.743 [id number] Univers 00:00:00 00:00:00 41751.1.1 350.1.13.10 ity of 3.104.2.7 [place]7.3.698 [place]3.591350 084.8 Medica l .8 [place] 2020-02-01 2020-02-01 Travel 1.2.840.1 1.2.447.861 [id number] Univers 00:00:00 00:00:00 43523.1.1 350.1.13.10 ity of 3.104.2.7 4.[place].7.3.698 [place]3.573597 084.8 Medica l .8 [place] 2020-01-19 2020-01-19 Office Louise 1.2.840.0 [id number] Univers 14:42:27 16:01:19 Visit Mamadou Johns 99467.1.1 ity of 3.104.2.7 [place] .3.855864 Medica l .8 [place] 2020-01-19 2020-01-19 Outpatient MAMADOU GIL [facility] [id number] Univers 15:00:00 15:00:00 MAMADOU GIL [id number] [facility] [place] [facility] 2020-01-19 2020-01-19 Outpatient MAMADOU RIZVI [facility] [id number] Univers 15:00:00 15:00:00 MAMADOU GIL [facility] [place] [facility] 2020-01-19 2020-01-19 Travel 1.2.840.1 1.2.895.937 [id number] Univers 00:00:00 00:00:00 18515.1.1 350.1.13.10 ity of 3.104.2.7 [place]7.3.698 [place]3.116424 084.8 Medica l .8 [place] 2020-01-08 2020-01-08 Telephone Mayur Gil.2.840.5 [id number] Univers 00:00:00 00:00:00 Mamadou Gene 36286.1.1 ity of 3.104.2.7 [place] .3.212762 Medica l .8 [place] 2019-12-29 2019-12-29 Outpatient R [facility] [id number] Univers 10:00:00 10:00:00 [id number] [facility] [place] [facility] 2019-12-29 2019-12-29 Outpatient R MAMI GODOY [facility] [id number] Univers 10:00:00 10:00:00 [facility] [place] [facility] 2019-12-29 2019-12-29 Travel 1.2.840.1 1.2.202.404 [id number] Univers 00:00:00 00:00:00 53605.1.1 350.1.13.10 ity of 3.104.2.7 [place]7.3.698 [place]3.684582 084.8 Medica l .8 [place] 2019-11-24 2019-11-24 Outpatient R [facility] [id number] Univers 10:00:00 10:00:00 [id number] [facility] [place] [facility] 2019-11-24 2019-11-24 Outpatient R JUNO HOSKINS [facility] [id number] Univers 10:00:00 10:00:00 [facility] [place] [facility] 2019-11-24 2019-11-24 Travel 1.2.840.1 1.2.752.665 [id number] Univers 00:00:00 00:00:00 03821.1.1 350.1.13.10 ity of 3.104.2.7 [place].7.3.698 [place]3.7264[place] 084.8 Medica l .8 [place] 2019-10-12 2019-10-12 Outpatient R [facility] [id number] Univers 12:45:00 12:45:00 [id number] [facility] [place] [facility] 2019-10-12 2019-10-12 Outpatient R LILLIAM [facility] [id number] Univers 12:45:00 12:45:00 ADRIAN [facility] [place] [facility] 2019-09-08 2019-09-08 Outpatient R [facility] [id number] Univers 09:15:00 09:15:00 [id number] it[facility] [place] [facility] 2019-09-08 2019-09-08 Outpatient R MAMI GODOY [facility] [id number] Univers 09:15:00 09:15:00 [facility] [place] [facility] 2019-09-06 2019-09-06 Janice Gil 1.2.840.9 [id number] Univers 00:00:00 00:00:00 Mamadou Gene 72483.1.1 ity of 3.104.2.7 [place] .3.294314 Medica l .8 [place] 2019-08-11 2019-08-11 Outpatient R MAMI GODOY [facility] [id number] Univers 10:00:00 10:00:00 [facility] [place] [facility] 2019-02-20 2019-02-20 Gas Meter Mechanic Mami Godoy W 1.2.840.1 [id number] Univers 10:14:05 10:29:05 Visit 1, Alana Lab 08267.1.1 i ty of 3.104.2.7 [place] .3.914342 Medica l .8 [place] 2019-02-10 2019-02-10 Orders Doctor 1.2.840.0 [id number] Univers 00:00:00 00:00:00 Only Unassigned, 95817.1.1 ity of [place] 3.104.2.7 [place] .3.757543 Medica l .8 [place] 2019-01-11 2019-01-11 Janice Gil 1.2.840.6 [id number] Univers 00:00:00 00:00:00 Mamadou Gene 86733.1.1 ity of 3.104.2.7 [place] .3.113708 Medica l .8 Branch 2018-12-26 2018-12-26 Khurram Gil 1.2.840.3 [id number] Univers 15:42:00 17:08:53 Visit Mamadou Gene 47269.1.1 ity of 3.104.2.7 [place] .3.750212 Medica l .8 Branch 2018-11-21 2018-11-21 Orders Doctor 1.2.840.0 [id number] Univers 00:00:00 00:00:00 Only Unassigned, 58621.1.1 ity of [place] 3.104.2.7 [place] .3.097951 Medica l .8 [place] 2018-09-16 2018-09-16 Telephone Louise, 1.2.840.1 [id number] Univers 00:00:00 00:00:00 Mamadou Gene 07669.1.1 ity of 3.104.2.7 [place] .3.808266 Medica l .8 [place] 2018 2018 Office Louise, 1.2.840.0 [id number] Univers 15:36:03 17:23:49 Visit Mamadou Gene 97425.1.1 ity of 3.104.2.7 [place] .3.611052 Medica l .8 [place] Results Test Description Test Time Test Comments Results Result Comments Source VALPROIC ACID, TOTAL 2020-07-19 23:16:00 Test Item Value Reference Range Interpretation Comme nts VALPROIC A (test code = 0786046473) 32 ug/mL 50-100 L JOEY (test code = JOEY) Toxic Range: ?Greater than 100 ug/mL Lab Interpretation (test code = 97275-3) [facility]normal [facility] [id number] 23:16:00 Test Item Value Reference Range Interpretation Comments VALPROIC A (test code = 32 ug/mL 50-100 L [id number]) JOEY (test code = JOEY) Toxic Range: ?Greater than 100 ug/mL Lab Interpretation (test Abnormal code = 69846-7) [facility] [id number] 23:16:00 Test Item Value Reference Range Interpretation Comments VALPROIC A (test code = 32 ug/mL 50-100 L [id number]) JOEY (test code = JOEY) Toxic Range: ?Greater than 100 ug/mL Lab Interpretation (test Abnormal code = 70147-8) [facility], [id number] 23:16:00 Test Item Value Reference Range Interpretation Comments VALPROIC A (test code = 32 ug/mL 50-100 L [id number]) JOEY (test code = JOEY) Toxic Range: ?Greater than 100 ug/mL Lab Interpretation (test Abnormal code = 71890-9) [facility], [id number] 23:16:00 Test Item Value Reference Range Interpretation Comments VALPROIC A (test code = 32 ug/mL 50-100 L [id number]) JOEY (test code = JOEY) Toxic Range: ?Greater than 100 ug/mL Lab Interpretation (test Abnormal code = 35147-4) [facility] [id number] 23:16:00 Test Item Value Reference Range Interpretation Comments VALPROIC A (test code = 32 ug/mL 50-100 L [id number]) JOEY (test code = JOEY) Toxic Range: ?Greater than 100 ug/mL Lab Interpretation (test Abnormal code = 12834-1) [facility] [id number] 17:48:00 Test Item Value Reference Range Interpretation Comments TSH (test code = See_Comment [Automated message] [id number]) The system [employer] generated this result transmitted ref erence range: 0.45 - 4 .70 mIU/L. The refe rence range was not u sed to interpret this result as normal/abnor mal. Lab Interpretation (test Normal code = 55515-7) [facility] [id number] 17:48:00 Test Item Value Reference Range Interpretation Comments TSH (test code = See_Comment [Automated message] [id number]) The system [employer] generated this result transmitted ref erence range: 0.45 - 4 .70 mIU/L. The refe rence range was not u sed to interpret this result as normal/abnor mal. Lab Interpretation (test Normal code = 57475-7) [facility] [id number] 17:48:00 Test Item Value Reference Range Interpretation Comments TSH (test code = See_Comment [Automated message] [id number]) The system [employer] generated this result transmitted ref erence range: 0.45 - 4 .70 mIU/L. The refe rence range was not u sed to interpret this result as normal/abnor mal. Lab Interpretation (test Normal code = 13779-0) [facility] [id number] 17:48:00 Test Item Value Reference Range Interpretation Comments TSH (test code = See_Comment [Automated message] [id number]) The system [employer] generated this result transmitted ref erence range: 0.45 - 4 .70 mIU/L. The refe rence range was not u sed to interpret this result as normal/abnor mal. Lab Interpretation (test Normal code = 17158-9) [facility] [id number] 17:48:00 Test Item Value Reference Range Interpretation Comments TSH (test code = See_Comment [Automated message] [id number]) The system [employer] generated this result transmitted ref erence range: 0.45 - 4 .70 mIU/L. The refe rence range was not u sed to interpret this result as normal/abnor mal. Lab Interpretation (test Normal code = 97655-8) [facility] [id number] 17:48:00 Test Item Value Reference Range Interpretation Comments TSH (test code = See_Comment [Automated message] [id number]) The system [employer] generated this result transmitted ref erence range: 0.45 - 4 .70 mIU/L. The refe rence range was not u sed to interpret this result as normal/abnor mal. Lab Interpretation (test Normal code = 35206-3) [facility] [id number] 17:48:00 Test Item Value Reference Range Interpretation Comments TSH (test code = See_Comment [Automated message] [id number]) The system [employer] generated this result transmitted ref erence range: 0.45 - 4 .70 mIU/L. The refe rence range was not u sed to interpret this result as normal/abnor mal. Lab Interpretation (test Normal code = 99060-0) [facility] [id number] 17:48:00 Test Item Value Reference Range Interpretation Comments TSH (test code = See_Comment [Automated message] [id number]) The system [employer] generated this result transmitted ref erence range: 0.45 - 4 .70 mIU/L. The refe rence range was not u sed to interpret this result as normal/abnor mal. Lab Interpretation (test Normal code = 97695-8) [facility] [id number] 17:48:00 Test Item Value Reference Range Interpretation Comments TSH (test code = See_Comment [Automated message] [id number]) The system [employer] generated this result transmitted ref erence range: 0.45 - 4 .70 mIU/L. The refe rence range was not u sed to interpret this result as normal/abnor mal. Lab Interpretation (test Normal code = 27461-3) [facility] [id number] 17:48:00 Test Item Value Reference Range Interpretation Comments TSH (test code = See_Comment [Automated message] [id number]) The system [employer] generated this result transmitted ref erence range: 0.45 - 4 .70 mIU/L. The refe rence range was not u sed to interpret this result as normal/abnor mal. Lab Interpretation (test Normal code = 44395-4) [facility] [id number] 17:48:00 Test Item Value Reference Range Interpretation Comments TSH (test code = See_Comment [Automated message] [id number]) The system [employer] generated this result transmitted ref erence range: 0.45 - 4 .70 mIU/L. The refe rence range was not u sed to interpret this result as normal/abnor mal. Lab Interpretation (test Normal code = 23269-7) [facility] [id number] 17:48:00 Test Item Value Reference Range Interpretation Comments TSH (test code = See_Comment [Automated message] [id number]) The system [employer] generated this result transmitted ref erence range: 0.45 - 4 .70 mIU/L. The refe rence range was not u sed to interpret this result as normal/abnor mal. Lab Interpretation (test Normal code = 29240-3) [facility] [id number] 17:48:00 Test Item Value Reference Range Interpretation Comments TSH (test code = See_Comment [Automated message] [id number]) The system [employer] generated this result transmitted ref erence range: 0.45 - 4 .70 mIU/L. The refe rence range was not u sed to interpret this result as normal/abnor mal. Lab Interpretation (test Normal code = 63558-2) [facility] [id number] 17:48:00 Test Item Value Reference Range Interpretation Comments TSH (test code = See_Comment [Automated message] [id number]) The system [employer] generated this result transmitted ref erence range: 0.45 - 4 .70 mIU/L. The refe rence range was not u sed to interpret this result as normal/abnor mal. Lab Interpretation (test Normal code = 02992-2) [facility] ([id number])(TOTAL CHOLESTEROL, TRIGLYCERIDES, HDL)2020-02-07 17:19:00 Test Item Value Reference Range Interpretation Comments CHOL (test code = 117 mg/dL 120-200 L 8476232587) HDL (test code = 38 mg/dL >40 L 0379888930) HDLC RATIO (test code = See_Comment [Au tomated message] [id number]) The system [employer] generated this result transmit claribel reference range : <=5.0. The refe rence range was not u sed to interpret th is result as normal/abnormal . TRIG (test code = 50 mg/dL 30-170 1879583508) LDL CHOL (test code = 69 mg/dL See_Comment [Auto mated message] 83376-2) The system [employer] generated this result transmit claribel reference range : <=160. The refe rence range was not u sed to interpret th is result as normal/abnormal . VLDL (test code = 10 mg/dL 5-60 0664240942) Lab Interpretation (test Abnormal code = 62707-1) [facility] ([id number])(TOTAL CHOLESTEROL, TRIGLYCERIDES, HDL)2020-02-07 17:19:00 Test Item Value Reference Range Interpretation Comments CHOL (test code = 117 mg/dL 120-200 L 0465771016) HDL (test code = 38 mg/dL >40 L 2362440797) HDLC RATIO (test code = See_Comment [Au tomated message] 8445851382) The system [employer] generated this result transmit claribel reference range : <=5.0. The refe rence range was not u sed to interpret th is result as normal/abnormal . TRIG (test code = 50 mg/dL 30-170 0845391921) LDL CHOL (test code = 69 mg/dL See_Comment [Auto mated message] 80241-3) The system [employer] generated this result transmit claribel reference range : <=160. The refe rence range was not u sed to interpret th is result as normal/abnormal . VLDL (test code = 10 mg/dL 5-60 7967137793) Lab Interpretation (test Abnormal code = 90870-5) [facility] ([id number])(TOTAL CHOLESTEROL, TRIGLYCERIDES, HDL)2020-02-07 17:19:00 Test Item Value Reference Range Interpretation Comments CHOL (test code = 117 mg/dL 120-200 L 0141286213) HDL (test code = 38 mg/dL >40 L 9219336544) HDLC RATIO (test code = See_Comment [Au tomated message] 6432834182) The system [employer] generated this result transmit claribel reference range : <=5.0. The refe rence range was not u sed to interpret th is result as normal/abnormal . TRIG (test code = 50 mg/dL 30-170 6936507053) LDL CHOL (test code = 69 mg/dL See_Comment [Auto mated message] 24511-0) The system [employer] generated this result transmit claribel reference range : <=160. The refe rence range was not u sed to interpret th is result as normal/abnormal . VLDL (test code = 10 mg/dL 5-60 0634124969) Lab Interpretation (test Abnormal code = 60678-7) [id number]TOTAL CHOLESTEROL, TRIGLYCERIDES, HDL)2020-02-07 17:19:00 Test Item Value Reference Range Interpretation Comments CHOL (test code = 117 mg/dL 120-200 L 3747513192) HDL (test code = 38 mg/dL >40 L 3020948832) HDLC RATIO (test code = See_Comment [Au tomated message] [id number]) The system [employer] generated this result transmit claribel reference range : <=5.0. The refe rence range was not u sed to interpret th is result as normal/abnormal . TRIG (test code = 50 mg/dL 30-170 5782166571) LDL CHOL (test code = 69 mg/dL See_Comment [Auto mated message] 98388-0) The system [employer] generated this result transmit claribel reference range : <=160. The refe rence range was not u sed to interpret th is result as normal/abnormal . VLDL (test code = 10 mg/dL 5-60 6890440592) Lab Interpretation (test Abnormal code = 67057-3) [facility] ([id number])(TOTAL CHOLESTEROL, TRIGLYCERIDES, HDL)2020-02-07 17:19:00 Test Item Value Reference Range Interpretation Comments CHOL (test code = 117 mg/dL 120-200 L [id number]) HDL (test code = 38 mg/dL >40 L 5214481224) HDLC RATIO (test code = See_Comment [Au tomated message] [id number]) The system [employer] generated this result transmit claribel reference range : <=5.0. The refe rence range was not u sed to interpret th is result as normal/abnormal . TRIG (test code = 50 mg/dL 30-170 2946005319) LDL CHOL (test code = 69 mg/dL See_Comment [Auto mated message] 53144-6) The system [employer] generated this result transmit claribel reference range : <=160. The refe rence range was not u sed to interpret th is result as normal/abnormal . VLDL (test code = 10 mg/dL 5-60 0146673389) Lab Interpretation (test Abnormal code = 12003-1) [facility][id number][facility]TOTAL CHOLESTEROL, TRIGLYCERIDES, HDL)2020-02-07 17:19:00 Test Item Value Reference Range Interpretation Comments CHOL (test code = 117 mg/dL 120-200 L 5957568401) HDL (test code = 38 mg/dL >40 L 9877041360) HDLC RATIO (test code = See_Comment [Au tomated message] 9752611389) The system [employer] generated this result transmit claribel reference range : <=5.0. The refe rence range was not u sed to interpret th is result as normal/abnormal . TRIG (test code = 50 mg/dL 30-170 1581673736) LDL CHOL (test code = 69 mg/dL See_Comment [Auto mated message] 81586-3) The system [employer] generated this result transmit claribel reference range : <=160. The refe rence range was not u sed to interpret th is result as normal/abnormal . VLDL (test code = 10 mg/dL 5-60 4770851623) Lab Interpretation (test Abnormal code = 22083-4) [facility] ([id number])(TOTAL CHOLESTEROL, TRIGLYCERIDES, HDL)2020-02-07 17:19:00 Test Item Value Reference Range Interpretation Comments CHOL (test code = 117 mg/dL 120-200 L 9181777420) HDL (test code = 38 mg/dL >40 L 8318323607) HDLC RATIO (test code = See_Comment [Au tomated message] 5318400045) The system [employer] generated this result transmit claribel reference range : <=5.0. The refe rence range was not u sed to interpret th is result as normal/abnormal . TRIG (test code = 50 mg/dL 30-170 2648999226) LDL CHOL (test code = 69 mg/dL See_Comment [Auto mated message] 89379-6) The system [employer] generated this result transmit claribel reference range : <=160. The refe rence range was not u sed to interpret th is result as normal/abnormal . VLDL (test code = 10 mg/dL 5-60 8503093662) Lab Interpretation (test Abnormal code = 90602-0) [facility] ([id number])(TOTAL CHOLESTEROL, TRIGLYCERIDES, HDL)2020-02-07 17:19:00 Test Item Value Reference Range Interpretation Comments CHOL (test code = 117 mg/dL 120-200 L 9583537981) HDL (test code = 38 mg/dL >40 L 1760412767) HDLC RATIO (test code = See_Comment [Au tomated message] 3204868879) The system [employer] generated this result transmit claribel reference range : <=5.0. The refe rence range was not u sed to interpret th is result as normal/abnormal . TRIG (test code = 50 mg/dL 30-170 2397970974) LDL CHOL (test code = 69 mg/dL See_Comment [Auto mated message] 65998-0) The system [employer] generated this result transmit claribel reference range : <=160. The refe rence range was not u sed to interpret th is result as normal/abnormal . VLDL (test code = 10 mg/dL 5-60 8966184212) Lab Interpretation (test Abnormal code = 62002-2) [facility] ([id number])(TOTAL CHOLESTEROL, TRIGLYCERIDES, HDL)2020-02-07 17:19:00 Test Item Value Reference Range Interpretation Comments CHOL (test code = 117 mg/dL 120-200 L 5931674313) HDL (test code = 38 mg/dL >40 L 5911148005) HDLC RATIO (test code = See_Comment [Au tomated message] 4817878147) The system [employer] generated this result transmit claribel reference range : <=5.0. The refe rence range was not u sed to interpret th is result as normal/abnormal . TRIG (test code = 50 mg/dL 30-170 1946529181) LDL CHOL (test code = 69 mg/dL See_Comment [Auto mated message] 29518-7) The system [employer] generated this result transmit claribel reference range : <=160. The refe rence range was not u sed to interpret th is result as normal/abnormal . VLDL (test code = 10 mg/dL 5-60 1568607546) Lab Interpretation (test Abnormal code = 26410-6) [facility] ([id number])(TOTAL CHOLESTEROL, TRIGLYCERIDES, HDL)2020-02-07 17:19:00 Test Item Value Reference Range Interpretation Comments CHOL (test code = 117 mg/dL 120-200 L 8200226073) HDL (test code = 38 mg/dL >40 L 3351077510) HDLC RATIO (test code = See_Comment [Au tomated message] 3881332065) The system [employer] generated this result transmit claribel reference range : <=5.0. The refe rence range was not u sed to interpret th is result as normal/abnormal . TRIG (test code = 50 mg/dL 30-170 0637876919) LDL CHOL (test code = 69 mg/dL See_Comment [Auto mated message] 37551-4) The system [employer] generated this result transmit claribel reference range : <=160. The refe rence range was not u sed to interpret th is result as normal/abnormal . VLDL (test code = 10 mg/dL 5-60 2810613453) Lab Interpretation (test Abnormal code = 29777-6) [facility] ([id number])(TOTAL CHOLESTEROL, TRIGLYCERIDES, HDL)2020-02-07 17:19:00 Test Item Value Reference Range Interpretation Comments CHOL (test code = 117 mg/dL 120-200 L 7793268220) HDL (test code = 38 mg/dL >40 L 9069015114) HDLC RATIO (test code = See_Comment [Au tomated message] 9718273885) The system [employer] generated this result transmit claribel reference range : <=5.0. The refe rence range was not u sed to interpret th is result as normal/abnormal . TRIG (test code = 50 mg/dL 30-170 7981681688) LDL CHOL (test code = 69 mg/dL See_Comment [Auto mated message] 07119-8) The system [employer] generated this result transmit claribel reference range : <=160. The refe rence range was not u sed to interpret th is result as normal/abnormal . VLDL (test code = 10 mg/dL 5-60 7704913821) Lab Interpretation (test Abnormal code = 56362-8) [facility][id number][facility]TOTAL CHOLESTEROL, TRIGLYCERIDES, HDL)2020-02-07 17:19:00 Test Item Value Reference Range Interpretation Comments CHOL (test code = 117 mg/dL 120-200 L 5957368967) HDL (test code = 38 mg/dL >40 L 4344276008) HDLC RATIO (test code = See_Comment [Au tomated message] 7128280804) The system [employer] generated this result transmit claribel reference range : <=5.0. The refe rence range was not u sed to interpret th is result as normal/abnormal . TRIG (test code = 50 mg/dL 30-170 9950301382) LDL CHOL (test code = 69 mg/dL See_Comment [Auto mated message] 00639-4) The system [employer] generated this result transmit claribel reference range : <=160. The refe rence range was not u sed to interpret th is result as normal/abnormal . VLDL (test code = 10 mg/dL 5-60 5350577194) Lab Interpretation (test Abnormal code = 38884-2) [facility] ([id number])(TOTAL CHOLESTEROL, TRIGLYCERIDES, HDL)2020-02-07 17:19:00 Test Item Value Reference Range Interpretation Comments CHOL (test code = 117 mg/dL 120-200 L 7755148481) HDL (test code = 38 mg/dL >40 L 2458922381) HDLC RATIO (test code = See_Comment [Au tomated message] 9158973280) The system [employer] generated this result transmit claribel reference range : <=5.0. The refe rence range was not u sed to interpret th is result as normal/abnormal . TRIG (test code = 50 mg/dL 30-170 5189796927) LDL CHOL (test code = 69 mg/dL See_Comment [Auto mated message] 47815-8) The system [employer] generated this result transmit claribel reference range : <=160. The refe rence range was not u sed to interpret th is result as normal/abnormal . VLDL (test code = 10 mg/dL 5-60 8643770342) Lab Interpretation (test Abnormal code = 30037-1) [facility] ([id number])(TOTAL CHOLESTEROL, TRIGLYCERIDES, HDL)2020-02-07 17:19:00 Test Item Value Reference Range Interpretation Comments CHOL (test code = 117 mg/dL 120-200 L 3813013485) HDL (test code = 38 mg/dL >40 L 1272930777) HDLC RATIO (test code = See_Comment [Au tomated message] 8690522409) The system [employer] generated this result transmit claribel reference range : <=5.0. The refe rence range was not u sed to interpret th is result as normal/abnormal . TRIG (test code = 50 mg/dL 30-170 2227096129) LDL CHOL (test code = 69 mg/dL See_Comment [Auto mated message] 51165-5) The system [employer] generated this result transmit claribel reference range : <=160. The refe rence range was not u sed to interpret th is result as normal/abnormal . VLDL (test code = 10 mg/dL 5-60 1637110026) Lab Interpretation (test Abnormal code = 91698-3) [facility] ([id number])2020-02-07 17:18:00 Test Item Value Reference Range Interpretation Comments NA (test code = 141 mmol/L 135-145 3211247347) K (test code = 4.3 mmol/L 3.5-5 6339837383) CL (test code = 103 mmol/L 98-108 3646629645) CO2 TOTAL (test code = 30 mmol/L 23-31 3303764431) AGAP (test code = 2-16 4682326249) BUN (test code = 13 mg/dL 7-23 1326373128) GLUCOSE (test code = 91 mg/dL 70-110 2229949710) CREATININE (test code = 0.80 mg/dL 0.6-1.25 6399330255) TOTAL BILI (test code = 0.6 mg/dL 0.1-1.8 4039697181) CALCIUM (test code = 9.7 mg/dL 8.6-10.6 6624567275) T PROTEIN (test code = 5.6 g/dL 6.3-8.2 L 2736831455) ALBUMIN (test code = 3.4 g/dL 3.5-5 L 1256884562) ALK PHOS (test code = 76 U/L 34-122 1400412642) ALTv (test code = 15 U/L 5-50 1742-6) AST(SGOT) (test code = 17 U/L 13-40 7637588291) eGFR Calculation mL/min/1.73m2 (Non-) (test code = 8911084642) eGFR Calculation mL/min/1.73m2 () (test code = 5004756164) JOEY (test code = JOEY) Association of Glomerular Filtration Rate (GFR) and Staging of Kidney Disease* + --+ --+ ------+| GFR (mL/min/1.73 m2) ?| With Kidney Damage ?| ?Without Kidney Damage+ --------+ --------+ +| ?>90 ?| ?Stage one ?| ? Normal ?+ ---+ ---+ -------+| ?60-89 ?| ?Stage two ?| ? Decreased GFR ? + --+ --+ ------+| ?30-59 ?| ?Stage three ?| ? Stage three ? + --+ --+ ------+| ?15-29 ?| ?Stage four ? | ? Stage four ?+ ---+ ---+ -------+| ?<15 (or dialysis) ? ?| ?Stage five ? | ? Stage five ?+ ---+ ---+ -------+ *Each stage assumes the associated GFR level has been in effect for at least three months. ?Stages 1 to 5, with or without kidney disease, indicate chronic kidney disease. Notes: Determination of stages one and two (with eGFR >59mL/min/1.73 m2) requires estimation of kidney damage for at least three months as defined by structural or functional abnormalities of the kidney, manifested by either:Pathological abnormalities or Markers of kidney damage (including abnormalities in the composition of the blood or urine or abnormalities in imaging tests). Lab Interpretation Abnormal (test code = 88242-3) [facility]. METABOLIC PANEL ([id number])2020-02-07 17:18:00 Test Item Value Reference Range Interpretation Comments NA (test code = 141 mmol/L 135-145 6633287221) K (test code = 4.3 mmol/L 3.5-5 3567994946) CL (test code = 103 mmol/L 98-108 0783155422) CO2 TOTAL (test code = 30 mmol/L 23-31 7235957567) AGAP (test code = 2-16 6039119718) BUN (test code = 13 mg/dL 7-23 5039902012) GLUCOSE (test code = 91 mg/dL 70-110 8645721086) CREATININE (test code = 0.80 mg/dL 0.6-1.25 2346983020) TOTAL BILI (test code = 0.6 mg/dL 0.1-1.7 1619268090) CALCIUM (test code = 9.7 mg/dL 8.6-10.6 5419197349) T PROTEIN (test code = 5.6 g/dL 6.3-8.2 L 7275298773) ALBUMIN (test code = 3.4 g/dL 3.5-5 L 3503198041) ALK PHOS (test code = 76 U/L 34-122 7859108024) ALTv (test code = 15 U/L 5-50 1742-6) AST(SGOT) (test code = 17 U/L 13-40 3128361383) eGFR Calculation mL/min/1.73m2 (Non-) (test code = 7667276118) eGFR Calculation mL/min/1.73m2 () (test code = 3106468190) JOEY (test code = JOEY) Association of Glomerular Filtration Rate (GFR) and Staging of Kidney Disease* + --+ --+ ------+| GFR (mL/min/1.73 m2) ?| With Kidney Damage ?| ?Without Kidney Damage+ --------+ --------+ +| ?>90 ?| ?Stage one ?| ? Normal ?+ ---+ ---+ -------+| ?60-89 ?| ?Stage two ?| ? Decreased GFR ? + --+ --+ ------+| ?30-59 ?| ?Stage three ?| ? Stage three ? + --+ --+ ------+| ?15-29 ?| ?Stage four ? | ? Stage four ?+ ---+ ---+ -------+| ?<15 (or dialysis) ? ?| ?Stage five ? | ? Stage five ?+ ---+ ---+ -------+ *Each stage assumes the associated GFR level has been in effect for at least three months. ?Stages 1 to 5, with or without kidney disease, indicate chronic kidney disease. Notes: Determination of stages one and two (with eGFR >59mL/min/1.73 m2) requires estimation of kidney damage for at least three months as defined by structural or functional abnormalities of the kidney, manifested by either:Pathological abnormalities or Markers of kidney damage (including abnormalities in the composition of the blood or urine or abnormalities in imaging tests). Lab Interpretation Abnormal (test code = 68992-4) [facility]. METABOLIC PANEL ([id number])2020-02-07 17:18:00 Test Item Value Reference Range Interpretation Comments NA (test code = 141 mmol/L 135-145 2770217340) K (test code = 4.3 mmol/L 3.5-5 9434917509) CL (test code = 103 mmol/L 98-108 1229194005) CO2 TOTAL (test code = 30 mmol/L 23-31 2600588272) AGAP (test code = 2-16 1357474687) BUN (test code = 13 mg/dL 7-23 6420533758) GLUCOSE (test code = 91 mg/dL 70-110 2129813667) CREATININE (test code = 0.80 mg/dL 0.6-1.25 4940992223) TOTAL BILI (test code = 0.6 mg/dL 0.1-1.0 7658653181) CALCIUM (test code = 9.7 mg/dL 8.6-10.6 4995663190) T PROTEIN (test code = 5.6 g/dL 6.3-8.2 L 6880162758) ALBUMIN (test code = 3.4 g/dL 3.5-5 L 4020332356) ALK PHOS (test code = 76 U/L 34-122 6247539518) ALTv (test code = 15 U/L 5-50 1742-6) AST(SGOT) (test code = 17 U/L 13-40 9478789197) eGFR Calculation mL/min/1.73m2 (Non-) (test code = 6451699673) eGFR Calculation mL/min/1.73m2 () (test code = 6518067771) JOEY (test code = JOEY) Association of Glomerular Filtration Rate (GFR) and Staging of Kidney Disease* + --+ --+ ------+| GFR (mL/min/1.73 m2) ?| With Kidney Damage ?| ?Without Kidney Damage+ --------+ --------+ +| ?>90 ?| ?Stage one ?| ? Normal ?+ ---+ ---+ -------+| ?60-89 ?| ?Stage two ?| ? Decreased GFR ? + --+ --+ ------+| ?30-59 ?| ?Stage three ?| ? Stage three ? + --+ --+ ------+| ?15-29 ?| ?Stage four ? | ? Stage four ?+ ---+ ---+ -------+| ?<15 (or dialysis) ? ?| ?Stage five ? | ? Stage five ?+ ---+ ---+ -------+ *Each stage assumes the associated GFR level has been in effect for at least three months. ?Stages 1 to 5, with or without kidney disease, indicate chronic kidney disease. Notes: Determination of stages one and two (with eGFR >59mL/min/1.73 m2) requires estimation of kidney damage for at least three months as defined by structural or functional abnormalities of the kidney, manifested by either:Pathological abnormalities or Markers of kidney damage (including abnormalities in the composition of the blood or urine or abnormalities in imaging tests). Lab Interpretation Abnormal (test code = 79230-4) [facility]. METABOLIC PANEL ([id number])2020-02-07 17:18:00 Test Item Value Reference Range Interpretation Comments NA (test code = 141 mmol/L 135-145 2487092308) K (test code = 4.3 mmol/L 3.5-5 2618381318) CL (test code = 103 mmol/L 98-108 2432766733) CO2 TOTAL (test code = 30 mmol/L 23-31 3409423335) AGAP (test code = 2-16 0140870457) BUN (test code = 13 mg/dL 7-23 5661240450) GLUCOSE (test code = 91 mg/dL 70-110 5822417131) CREATININE (test code = 0.80 mg/dL 0.6-1.25 1426692726) TOTAL BILI (test code = 0.6 mg/dL 0.1-1.2 3630889178) CALCIUM (test code = 9.7 mg/dL 8.6-10.6 5699242231) T PROTEIN (test code = 5.6 g/dL 6.3-8.2 L 9863827340) ALBUMIN (test code = 3.4 g/dL 3.5-5 L 5557877014) ALK PHOS (test code = 76 U/L 34-122 3221468079) ALTv (test code = 15 U/L 5-50 1742-6) AST(SGOT) (test code = 17 U/L 13-40 8188555296) eGFR Calculation mL/min/1.73m2 (Non-) (test code = 6431414115) eGFR Calculation mL/min/1.73m2 () (test code = 3522079064) JOEY (test code = JOEY) Association of Glomerular Filtration Rate (GFR) and Staging of Kidney Disease* + --+ --+ ------+| GFR (mL/min/1.73 m2) ?| With Kidney Damage ?| ?Without Kidney Damage+ --------+ --------+ +| ?>90 ?| ?Stage one ?| ? Normal ?+ ---+ ---+ -------+| ?60-89 ?| ?Stage two ?| ? Decreased GFR ? + --+ --+ ------+| ?30-59 ?| ?Stage three ?| ? Stage three ? + --+ --+ ------+| ?15-29 ?| ?Stage four ? | ? Stage four ?+ ---+ ---+ -------+| ?<15 (or dialysis) ? ?| ?Stage five ? | ? Stage five ?+ ---+ ---+ -------+ *Each stage assumes the associated GFR level has been in effect for at least three months. ?Stages 1 to 5, with or without kidney disease, indicate chronic kidney disease. Notes: Determination of stages one and two (with eGFR >59mL/min/1.73 m2) requires estimation of kidney damage for at least three months as defined by structural or functional abnormalities of the kidney, manifested by either:Pathological abnormalities or Markers of kidney damage (including abnormalities in the composition of the blood or urine or abnormalities in imaging tests). Lab Interpretation Abnormal (test code = 44176-4) [facility]. METABOLIC PANEL ([id number])2020-02-07 17:18:00 Test Item Value Reference Range Interpretation Comments NA (test code = 141 mmol/L 135-145 7292921697) K (test code = 4.3 mmol/L 3.5-5 0917142749) CL (test code = 103 mmol/L 98-108 4509356422) CO2 TOTAL (test code = 30 mmol/L 23-31 8076053379) AGAP (test code = 2-16 7779683585) BUN (test code = 13 mg/dL 7-23 0518476340) GLUCOSE (test code = 91 mg/dL 70-110 8008955229) CREATININE (test code = 0.80 mg/dL 0.6-1.25 8325265341) TOTAL BILI (test code = 0.6 mg/dL 0.1-1.6 0324456255) CALCIUM (test code = 9.7 mg/dL 8.6-10.6 9369597028) T PROTEIN (test code = 5.6 g/dL 6.3-8.2 L 5330758557) ALBUMIN (test code = 3.4 g/dL 3.5-5 L 5191960209) ALK PHOS (test code = 76 U/L 34-122 3589423688) ALTv (test code = 15 U/L 5-50 1742-6) AST(SGOT) (test code = 17 U/L 13-40 1939043777) eGFR Calculation mL/min/1.73m2 (Non-) (test code = 6073515535) eGFR Calculation mL/min/1.73m2 () (test code = 0321614034) JOEY (test code = JOEY) Association of Glomerular Filtration Rate (GFR) and Staging of Kidney Disease* + --+ --+ ------+| GFR (mL/min/1.73 m2) ?| With Kidney Damage ?| ?Without Kidney Damage+ --------+ --------+ +| ?>90 ?| ?Stage one ?| ? Normal ?+ ---+ ---+ -------+| ?60-89 ?| ?Stage two ?| ? Decreased GFR ? + --+ --+ ------+| ?30-59 ?| ?Stage three ?| ? Stage three ? + --+ --+ ------+| ?15-29 ?| ?Stage four ? | ? Stage four ?+ ---+ ---+ -------+| ?<15 (or dialysis) ? ?| ?Stage five ? | ? Stage five ?+ ---+ ---+ -------+ *Each stage assumes the associated GFR level has been in effect for at least three months. ?Stages 1 to 5, with or without kidney disease, indicate chronic kidney disease. Notes: Determination of stages one and two (with eGFR >59mL/min/1.73 m2) requires estimation of kidney damage for at least three months as defined by structural or functional abnormalities of the kidney, manifested by either:Pathological abnormalities or Markers of kidney damage (including abnormalities in the composition of the blood or urine or abnormalities in imaging tests). Lab Interpretation Abnormal (test code = 28891-5) [facility] ([id number][facility]2020-02-07 17:18:00 Test Item Value Reference Range Interpretation Comments NA (test code = 141 mmol/L 135-145 1433525200) K (test code = 4.3 mmol/L 3.5-5 2177087710) CL (test code = 103 mmol/L 98-108 4708540827) CO2 TOTAL (test code = 30 mmol/L 23-31 0445537812) AGAP (test code = 2-16 8743176628) BUN (test code = 13 mg/dL 7-23 6479874386) GLUCOSE (test code = 91 mg/dL 70-110 3290621007) CREATININE (test code = 0.80 mg/dL 0.6-1.25 4831087810) TOTAL BILI (test code = 0.6 mg/dL 0.1-1.1 4150141849) CALCIUM (test code = 9.7 mg/dL 8.6-10.6 2551159897) T PROTEIN (test code = 5.6 g/dL 6.3-8.2 L 8191567415) ALBUMIN (test code = 3.4 g/dL 3.5-5 L 0250893234) ALK PHOS (test code = 76 U/L 34-122 5290203033) ALTv (test code = 15 U/L 5-50 1742-6) AST(SGOT) (test code = 17 U/L 13-40 7486258842) eGFR Calculation mL/min/1.73m2 (Non-) (test code = 1677514837) eGFR Calculation mL/min/1.73m2 () (test code = 5526190273) JOEY (test code = JOEY) Association of Glomerular Filtration Rate (GFR) and Staging of Kidney Disease* + --+ --+ ------+| GFR (mL/min/1.73 m2) ?| With Kidney Damage ?| ?Without Kidney Damage+ --------+ --------+ +| ?>90 ?| ?Stage one ?| ? Normal ?+ ---+ ---+ -------+| ?60-89 ?| ?Stage two ?| ? Decreased GFR ? + --+ --+ ------+| ?30-59 ?| ?Stage three ?| ? Stage three ? + --+ --+ ------+| ?15-29 ?| ?Stage four ? | ? Stage four ?+ ---+ ---+ -------+| ?<15 (or dialysis) ? ?| ?Stage five ? | ? Stage five ?+ ---+ ---+ -------+ *Each stage assumes the associated GFR level has been in effect for at least three months. ?Stages 1 to 5, with or without kidney disease, indicate chronic kidney disease. Notes: Determination of stages one and two (with eGFR >59mL/min/1.73 m2) requires estimation of kidney damage for at least three months as defined by structural or functional abnormalities of the kidney, manifested by either:Pathological abnormalities or Markers of kidney damage (including abnormalities in the composition of the blood or urine or abnormalities in imaging tests). Lab Interpretation Abnormal (test code = 95210-1) [facility]. METABOLIC PANEL ([id number])2020-02-07 17:18:00 Test Item Value Reference Range Interpretation Comments NA (test code = 141 mmol/L 135-145 8829571342) K (test code = 4.3 mmol/L 3.5-5 7087303502) CL (test code = 103 mmol/L 98-108 7408906987) CO2 TOTAL (test code = 30 mmol/L 23-31 4578205525) AGAP (test code = 2-16 4716157977) BUN (test code = 13 mg/dL 7-23 4065521610) GLUCOSE (test code = 91 mg/dL 70-110 5871324176) CREATININE (test code = 0.80 mg/dL 0.6-1.25 3954205586) TOTAL BILI (test code = 0.6 mg/dL 0.1-1.5 2049299274) CALCIUM (test code = 9.7 mg/dL 8.6-10.6 4788510702) T PROTEIN (test code = 5.6 g/dL 6.3-8.2 L 1836942270) ALBUMIN (test code = 3.4 g/dL 3.5-5 L 1315009901) ALK PHOS (test code = 76 U/L 34-122 7195352696) ALTv (test code = 15 U/L 5-50 1742-6) AST(SGOT) (test code = 17 U/L 13-40 1279936783) eGFR Calculation mL/min/1.73m2 (Non-) (test code = 7122219643) eGFR Calculation mL/min/1.73m2 () (test code = 0930601830) JOEY (test code = JOEY) Association of Glomerular Filtration Rate (GFR) and Staging of Kidney Disease* + --+ --+ ------+| GFR (mL/min/1.73 m2) ?| With Kidney Damage ?| ?Without Kidney Damage+ --------+ --------+ +| ?>90 ?| ?Stage one ?| ? Normal ?+ ---+ ---+ -------+| ?60-89 ?| ?Stage two ?| ? Decreased GFR ? + --+ --+ ------+| ?30-59 ?| ?Stage three ?| ? Stage three ? + --+ --+ ------+| ?15-29 ?| ?Stage four ? | ? Stage four ?+ ---+ ---+ -------+| ?<15 (or dialysis) ? ?| ?Stage five ? | ? Stage five ?+ ---+ ---+ -------+ *Each stage assumes the associated GFR level has been in effect for at least three months. ?Stages 1 to 5, with or without kidney disease, indicate chronic kidney disease. Notes: Determination of stages one and two (with eGFR >59mL/min/1.73 m2) requires estimation of kidney damage for at least three months as defined by structural or functional abnormalities of the kidney, manifested by either:Pathological abnormalities or Markers of kidney damage (including abnormalities in the composition of the blood or urine or abnormalities in imaging tests). Lab Interpretation Abnormal (test code = 08480-1) [facility]. METABOLIC PANEL ([id number])2020-02-07 17:18:00 Test Item Value Reference Range Interpretation Comments NA (test code = 141 mmol/L 135-145 8299690195) K (test code = 4.3 mmol/L 3.5-5 1309193221) CL (test code = 103 mmol/L 98-108 6365162943) CO2 TOTAL (test code = 30 mmol/L 23-31 9939433055) AGAP (test code = 2-16 5312067899) BUN (test code = 13 mg/dL 7-23 4672326381) GLUCOSE (test code = 91 mg/dL 70-110 8376757168) CREATININE (test code = 0.80 mg/dL 0.6-1.25 7776641470) TOTAL BILI (test code = 0.6 mg/dL 0.1-1.2 2964150647) CALCIUM (test code = 9.7 mg/dL 8.6-10.6 5171660124) T PROTEIN (test code = 5.6 g/dL 6.3-8.2 L 2245918092) ALBUMIN (test code = 3.4 g/dL 3.5-5 L 5765232502) ALK PHOS (test code = 76 U/L 34-122 2188554346) ALTv (test code = 15 U/L 5-50 1742-6) AST(SGOT) (test code = 17 U/L 13-40 2670319751) eGFR Calculation mL/min/1.73m2 (Non-) (test code = 4497077392) eGFR Calculation mL/min/1.73m2 () (test code = 0371309389) JOEY (test code = JOEY) Association of Glomerular Filtration Rate (GFR) and Staging of Kidney Disease* + --+ --+ ------+| GFR (mL/min/1.73 m2) ?| With Kidney Damage ?| ?Without Kidney Damage+ --------+ --------+ +| ?>90 ?| ?Stage one ?| ? Normal ?+ ---+ ---+ -------+| ?60-89 ?| ?Stage two ?| ? Decreased GFR ? + --+ --+ ------+| ?30-59 ?| ?Stage three ?| ? Stage three ? + --+ --+ ------+| ?15-29 ?| ?Stage four ? | ? Stage four ?+ ---+ ---+ -------+| ?<15 (or dialysis) ? ?| ?Stage five ? | ? Stage five ?+ ---+ ---+ -------+ *Each stage assumes the associated GFR level has been in effect for at least three months. ?Stages 1 to 5, with or without kidney disease, indicate chronic kidney disease. Notes: Determination of stages one and two (with eGFR >59mL/min/1.73 m2) requires estimation of kidney damage for at least three months as defined by structural or functional abnormalities of the kidney, manifested by either:Pathological abnormalities or Markers of kidney damage (including abnormalities in the composition of the blood or urine or abnormalities in imaging tests). Lab Interpretation Abnormal (test code = 61307-3) [facility]. METABOLIC PANEL ([id number])2020-02-07 17:18:00 Test Item Value Reference Range Interpretation Comments NA (test code = 141 mmol/L 135-145 6954290656) K (test code = 4.3 mmol/L 3.5-5 3668216127) CL (test code = 103 mmol/L 98-108 3746681583) CO2 TOTAL (test code = 30 mmol/L 23-31 7968666472) AGAP (test code = 2-16 4967973889) BUN (test code = 13 mg/dL 7-23 9573688612) GLUCOSE (test code = 91 mg/dL 70-110 0292636625) CREATININE (test code = 0.80 mg/dL 0.6-1.25 4259634454) TOTAL BILI (test code = 0.6 mg/dL 0.1-1.3 5683231090) CALCIUM (test code = 9.7 mg/dL 8.6-10.6 8356398265) T PROTEIN (test code = 5.6 g/dL 6.3-8.2 L 7985156869) ALBUMIN (test code = 3.4 g/dL 3.5-5 L 7870622349) ALK PHOS (test code = 76 U/L 34-122 6055019295) ALTv (test code = 15 U/L 5-50 1742-6) AST(SGOT) (test code = 17 U/L 13-40 4976749219) eGFR Calculation mL/min/1.73m2 (Non-) (test code = 4484017180) eGFR Calculation mL/min/1.73m2 () (test code = 1644281734) JOEY (test code = JOEY) Association of Glomerular Filtration Rate (GFR) and Staging of Kidney Disease* + --+ --+ ------+| GFR (mL/min/1.73 m2) ?| With Kidney Damage ?| ?Without Kidney Damage+ --------+ --------+ +| ?>90 ?| ?Stage one ?| ? Normal ?+ ---+ ---+ -------+| ?60-89 ?| ?Stage two ?| ? Decreased GFR ? + --+ --+ ------+| ?30-59 ?| ?Stage three ?| ? Stage three ? + --+ --+ ------+| ?15-29 ?| ?Stage four ? | ? Stage four ?+ ---+ ---+ -------+| ?<15 (or dialysis) ? ?| ?Stage five ? | ? Stage five ?+ ---+ ---+ -------+ *Each stage assumes the associated GFR level has been in effect for at least three months. ?Stages 1 to 5, with or without kidney disease, indicate chronic kidney disease. Notes: Determination of stages one and two (with eGFR >59mL/min/1.73 m2) requires estimation of kidney damage for at least three months as defined by structural or functional abnormalities of the kidney, manifested by either:Pathological abnormalities or Markers of kidney damage (including abnormalities in the composition of the blood or urine or abnormalities in imaging tests). Lab Interpretation Abnormal (test code = 54311-7) [facility]. METABOLIC PANEL ([id number])2020-02-07 17:18:00 Test Item Value Reference Range Interpretation Comments NA (test code = 141 mmol/L 135-145 5000949589) K (test code = 4.3 mmol/L 3.5-5 5462833107) CL (test code = 103 mmol/L 98-108 5142834618) CO2 TOTAL (test code = 30 mmol/L 23-31 7603108904) AGAP (test code = 2-16 9798158984) BUN (test code = 13 mg/dL 7-23 9545974236) GLUCOSE (test code = 91 mg/dL 70-110 9640462609) CREATININE (test code = 0.80 mg/dL 0.6-1.25 1658139554) TOTAL BILI (test code = 0.6 mg/dL 0.1-1.3 1118650801) CALCIUM (test code = 9.7 mg/dL 8.6-10.6 7245922393) T PROTEIN (test code = 5.6 g/dL 6.3-8.2 L 0997346984) ALBUMIN (test code = 3.4 g/dL 3.5-5 L 9148599256) ALK PHOS (test code = 76 U/L 34-122 9641347352) ALTv (test code = 15 U/L 5-50 1742-6) AST(SGOT) (test code = 17 U/L 13-40 9829240659) eGFR Calculation mL/min/1.73m2 (Non-) (test code = 5844173533) eGFR Calculation mL/min/1.73m2 () (test code = 9205686038) JOEY (test code = JOEY) Association of Glomerular Filtration Rate (GFR) and Staging of Kidney Disease* + --+ --+ ------+| GFR (mL/min/1.73 m2) ?| With Kidney Damage ?| ?Without Kidney Damage+ --------+ --------+ +| ?>90 ?| ?Stage one ?| ? Normal ?+ ---+ ---+ -------+| ?60-89 ?| ?Stage two ?| ? Decreased GFR ? + --+ --+ ------+| ?30-59 ?| ?Stage three ?| ? Stage three ? + --+ --+ ------+| ?15-29 ?| ?Stage four ? | ? Stage four ?+ ---+ ---+ -------+| ?<15 (or dialysis) ? ?| ?Stage five ? | ? Stage five ?+ ---+ ---+ -------+ *Each stage assumes the associated GFR level has been in effect for at least three months. ?Stages 1 to 5, with or without kidney disease, indicate chronic kidney disease. Notes: Determination of stages one and two (with eGFR >59mL/min/1.73 m2) requires estimation of kidney damage for at least three months as defined by structural or functional abnormalities of the kidney, manifested by either:Pathological abnormalities or Markers of kidney damage (including abnormalities in the composition of the blood or urine or abnormalities in imaging tests). Lab Interpretation Abnormal (test code = 00989-5) [facility] ([id number][facility]2020-02-07 17:18:00 Test Item Value Reference Range Interpretation Comments NA (test code = 141 mmol/L 135-145 5047818423) K (test code = 4.3 mmol/L 3.5-5 9339934296) CL (test code = 103 mmol/L 98-108 2584797859) CO2 TOTAL (test code = 30 mmol/L 23-31 8706485456) AGAP (test code = 2-16 6966339625) BUN (test code = 13 mg/dL 7-23 4802957879) GLUCOSE (test code = 91 mg/dL 70-110 9716160885) CREATININE (test code = 0.80 mg/dL 0.6-1.25 4345686773) TOTAL BILI (test code = 0.6 mg/dL 0.1-1.7 1582161383) CALCIUM (test code = 9.7 mg/dL 8.6-10.6 8583603182) T PROTEIN (test code = 5.6 g/dL 6.3-8.2 L 1733769811) ALBUMIN (test code = 3.4 g/dL 3.5-5 L 2156011357) ALK PHOS (test code = 76 U/L 34-122 0658330832) ALTv (test code = 15 U/L 5-50 1742-6) AST(SGOT) (test code = 17 U/L 13-40 9291707294) eGFR Calculation mL/min/1.73m2 (Non-) (test code = 5366469611) eGFR Calculation mL/min/1.73m2 () (test code = 2782044923) JOEY (test code = JOEY) Association of Glomerular Filtration Rate (GFR) and Staging of Kidney Disease* + --+ --+ ------+| GFR (mL/min/1.73 m2) ?| With Kidney Damage ?| ?Without Kidney Damage+ --------+ --------+ +| ?>90 ?| ?Stage one ?| ? Normal ?+ ---+ ---+ -------+| ?60-89 ?| ?Stage two ?| ? Decreased GFR ? + --+ --+ ------+| ?30-59 ?| ?Stage three ?| ? Stage three ? + --+ --+ ------+| ?15-29 ?| ?Stage four ? | ? Stage four ?+ ---+ ---+ -------+| ?<15 (or dialysis) ? ?| ?Stage five ? | ? Stage five ?+ ---+ ---+ -------+ *Each stage assumes the associated GFR level has been in effect for at least three months. ?Stages 1 to 5, with or without kidney disease, indicate chronic kidney disease. Notes: Determination of stages one and two (with eGFR >59mL/min/1.73 m2) requires estimation of kidney damage for at least three months as defined by structural or functional abnormalities of the kidney, manifested by either:Pathological abnormalities or Markers of kidney damage (including abnormalities in the composition of the blood or urine or abnormalities in imaging tests). Lab Interpretation Abnormal (test code = 85933-4) [facility]. METABOLIC PANEL ([id number])2020-02-07 17:18:00 Test Item Value Reference Range Interpretation Comments NA (test code = 141 mmol/L 135-145 3949142599) K (test code = 4.3 mmol/L 3.5-5 9985540133) CL (test code = 103 mmol/L 98-108 1275029002) CO2 TOTAL (test code = 30 mmol/L 23-31 3963632424) AGAP (test code = 2-16 5036464974) BUN (test code = 13 mg/dL 7-23 2193469631) GLUCOSE (test code = 91 mg/dL 70-110 7109098098) CREATININE (test code = 0.80 mg/dL 0.6-1.25 2765448056) TOTAL BILI (test code = 0.6 mg/dL 0.1-1.0 8866979001) CALCIUM (test code = 9.7 mg/dL 8.6-10.6 4373494146) T PROTEIN (test code = 5.6 g/dL 6.3-8.2 L 8282820986) ALBUMIN (test code = 3.4 g/dL 3.5-5 L 7808846129) ALK PHOS (test code = 76 U/L 34-122 3714033057) ALTv (test code = 15 U/L 5-50 1742-6) AST(SGOT) (test code = 17 U/L 13-40 5404499251) eGFR Calculation mL/min/1.73m2 (Non-) (test code = 2683351497) eGFR Calculation mL/min/1.73m2 () (test code = 0685942650) JOEY (test code = JOEY) Association of Glomerular Filtration Rate (GFR) and Staging of Kidney Disease* + --+ --+ ------+| GFR (mL/min/1.73 m2) ?| With Kidney Damage ?| ?Without Kidney Damage+ --------+ --------+ +| ?>90 ?| ?Stage one ?| ? Normal ?+ ---+ ---+ -------+| ?60-89 ?| ?Stage two ?| ? Decreased GFR ? + --+ --+ ------+| ?30-59 ?| ?Stage three ?| ? Stage three ? + --+ --+ ------+| ?15-29 ?| ?Stage four ? | ? Stage four ?+ ---+ ---+ -------+| ?<15 (or dialysis) ? ?| ?Stage five ? | ? Stage five ?+ ---+ ---+ -------+ *Each stage assumes the associated GFR level has been in effect for at least three months. ?Stages 1 to 5, with or without kidney disease, indicate chronic kidney disease. Notes: Determination of stages one and two (with eGFR >59mL/min/1.73 m2) requires estimation of kidney damage for at least three months as defined by structural or functional abnormalities of the kidney, manifested by either:Pathological abnormalities or Markers of kidney damage (including abnormalities in the composition of the blood or urine or abnormalities in imaging tests). Lab Interpretation Abnormal (test code = 84277-2) [facility]. METABOLIC PANEL ([id number])2020-02-07 17:18:00 Test Item Value Reference Range Interpretation Comments NA (test code = 141 mmol/L 135-145 2975677042) K (test code = 4.3 mmol/L 3.5-5 2625211610) CL (test code = 103 mmol/L 98-108 3109405605) CO2 TOTAL (test code = 30 mmol/L 23-31 7576501090) AGAP (test code = 2-16 1332769330) BUN (test code = 13 mg/dL 7-23 6857847560) GLUCOSE (test code = 91 mg/dL 70-110 8643881740) CREATININE (test code = 0.80 mg/dL 0.6-1.25 9545449315) TOTAL BILI (test code = 0.6 mg/dL 0.1-1.1 0546472272) CALCIUM (test code = 9.7 mg/dL 8.6-10.6 9248263602) T PROTEIN (test code = 5.6 g/dL 6.3-8.2 L 7645746201) ALBUMIN (test code = 3.4 g/dL 3.5-5 L 5069478141) ALK PHOS (test code = 76 U/L 34-122 0039429882) ALTv (test code = 15 U/L 5-50 1742-6) AST(SGOT) (test code = 17 U/L 13-40 7821812315) eGFR Calculation mL/min/1.73m2 (Non-) (test code = 6100536108) eGFR Calculation mL/min/1.73m2 () (test code = 4754167573) JOEY (test code = JOEY) Association of Glomerular Filtration Rate (GFR) and Staging of Kidney Disease* + --+ --+ ------+| GFR (mL/min/1.73 m2) ?| With Kidney Damage ?| ?Without Kidney Damage+ --------+ --------+ +| ?>90 ?| ?Stage one ?| ? Normal ?+ ---+ ---+ -------+| ?60-89 ?| ?Stage two ?| ? Decreased GFR ? + --+ --+ ------+| ?30-59 ?| ?Stage three ?| ? Stage three ? + --+ --+ ------+| ?15-29 ?| ?Stage four ? | ? Stage four ?+ ---+ ---+ -------+| ?<15 (or dialysis) ? ?| ?Stage five ? | ? Stage five ?+ ---+ ---+ -------+ *Each stage assumes the associated GFR level has been in effect for at least three months. ?Stages 1 to 5, with or without kidney disease, indicate chronic kidney disease. Notes: Determination of stages one and two (with eGFR >59mL/min/1.73 m2) requires estimation of kidney damage for at least three months as defined by structural or functional abnormalities of the kidney, manifested by either:Pathological abnormalities or Markers of kidney damage (including abnormalities in the composition of the blood or urine or abnormalities in imaging tests). Lab Interpretation Abnormal (test code = 49276-4) [facility]. METABOLIC PANEL ([id number])2020-02-07 17:18:00 Test Item Value Reference Range Interpretation Comments NA (test code = 141 mmol/L 135-145 8665791353) K (test code = 4.3 mmol/L 3.5-5 4910409103) CL (test code = 103 mmol/L 98-108 5798595565) CO2 TOTAL (test code = 30 mmol/L 23-31 8638758550) AGAP (test code = 2-16 0375096651) BUN (test code = 13 mg/dL 7-23 6658264621) GLUCOSE (test code = 91 mg/dL 70-110 4511630534) CREATININE (test code = 0.80 mg/dL 0.6-1.25 0021130823) TOTAL BILI (test code = 0.6 mg/dL 0.1-1.0 7990533551) CALCIUM (test code = 9.7 mg/dL 8.6-10.6 6723369631) T PROTEIN (test code = 5.6 g/dL 6.3-8.2 L 4908141602) ALBUMIN (test code = 3.4 g/dL 3.5-5 L 3871270027) ALK PHOS (test code = 76 U/L 34-122 1761617282) ALTv (test code = 15 U/L 5-50 1742-6) AST(SGOT) (test code = 17 U/L 13-40 3513041862) eGFR Calculation mL/min/1.73m2 (Non-) (test code = 8052506373) eGFR Calculation mL/min/1.73m2 () (test code = 6601004514) JOEY (test code = JOEY) Association of Glomerular Filtration Rate (GFR) and Staging of Kidney Disease* + --+ --+ ------+| GFR (mL/min/1.73 m2) ?| With Kidney Damage ?| ?Without Kidney Damage+ --------+ --------+ +| ?>90 ?| ?Stage one ?| ? Normal ?+ ---+ ---+ -------+| ?60-89 ?| ?Stage two ?| ? Decreased GFR ? + --+ --+ ------+| ?30-59 ?| ?Stage three ?| ? Stage three ? + --+ --+ ------+| ?15-29 ?| ?Stage four ? | ? Stage four ?+ ---+ ---+ -------+| ?<15 (or dialysis) ? ?| ?Stage five ? | ? Stage five ?+ ---+ ---+ -------+ *Each stage assumes the associated GFR level has been in effect for at least three months. ?Stages 1 to 5, with or without kidney disease, indicate chronic kidney disease. Notes: Determination of stages one and two (with eGFR >59mL/min/1.73 m2) requires estimation of kidney damage for at least three months as defined by structural or functional abnormalities of the kidney, manifested by either:Pathological abnormalities or Markers of kidney damage (including abnormalities in the composition of the blood or urine or abnormalities in imaging tests). Lab Interpretation Abnormal (test code = 24921-2) [facility] [id number] 17:06:00 Test Item Value Reference Range Interpretation Comments VALPROIC A (test code = 38 ug/mL 50-100 L 9187766429) JOEY (test code = JOEY) Toxic Range: ?Greater than 100 ug/mL Lab Interpretation (test Abnormal code = 70667-1) [facility] [id number] 17:06:00 Test Item Value Reference Range Interpretation Comments VALPROIC A (test code = 38 ug/mL 50-100 L 5277946236) JOEY (test code = JOEY) Toxic Range: ?Greater than 100 ug/mL Lab Interpretation (test Abnormal code = 57448-0) [facility] [id number] 17:06:00 Test Item Value Reference Range Interpretation Comments VALPROIC A (test code = 38 ug/mL 50-100 L 5649923579) JOEY (test code = JOEY) Toxic Range: ?Greater than 100 ug/mL Lab Interpretation (test Abnormal code = 38482-5) [facility] [id number] 17:06:00 Test Item Value Reference Range Interpretation Comments VALPROIC A (test code = 38 ug/mL 50-100 L 4316474242) JOEY (test code = JOEY) Toxic Range: ?Greater than 100 ug/mL Lab Interpretation (test Abnormal code = 34164-4) [facility] [id number] 17:06:00 Test Item Value Reference Range Interpretation Comments VALPROIC A (test code = 38 ug/mL 50-100 L 2952026745) JOEY (test code = JOEY) Toxic Range: ?Greater than 100 ug/mL Lab Interpretation (test Abnormal code = 92378-7) [facility] [id number] 17:06:00 Test Item Value Reference Range Interpretation Comments VALPROIC A (test code = 38 ug/mL 50-100 L 9021174919) JOEY (test code = JOEY) Toxic Range: ?Greater than 100 ug/mL Lab Interpretation (test Abnormal code = 42160-7) [facility] [id number] 17:06:00 Test Item Value Reference Range Interpretation Comments VALPROIC A (test code = 38 ug/mL 50-100 L 3373141529) JOEY (test code = JOEY) Toxic Range: ?Greater than 100 ug/mL Lab Interpretation (test Abnormal code = 66993-9) [facility] [id number] 17:06:00 Test Item Value Reference Range Interpretation Comments VALPROIC A (test code = 38 ug/mL 50-100 L 6077525744) JOEY (test code = JOEY) Toxic Range: ?Greater than 100 ug/mL Lab Interpretation (test Abnormal code = 31195-7) [facility] [id number] 17:06:00 Test Item Value Reference Range Interpretation Comments VALPROIC A (test code = 38 ug/mL 50-100 L 3030043069) JOEY (test code = JOEY) Toxic Range: ?Greater than 100 ug/mL Lab Interpretation (test Abnormal code = 20703-9) [facility] [id number] 17:06:00 Test Item Value Reference Range Interpretation Comments VALPROIC A (test code = 38 ug/mL 50-100 L 4272302837) JOEY (test code = JOEY) Toxic Range: ?Greater than 100 ug/mL Lab Interpretation (test Abnormal code = 58885-0) [facility] [id number] 17:06:00 Test Item Value Reference Range Interpretation Comments VALPROIC A (test code = 38 ug/mL 50-100 L 8959012817) JOEY (test code = JOEY) Toxic Range: ?Greater than 100 ug/mL Lab Interpretation (test Abnormal code = 85679-1) [facility], [id number] 17:06:00 Test Item Value Reference Range Interpretation Comments VALPROIC A (test code = 38 ug/mL 50-100 L [id number]) JOEY (test code = JOEY) Toxic Range: ?Greater than 100 ug/mL Lab Interpretation (test Abnormal code = 75084-7) [facility] [id number] 17:06:00 Test Item Value Reference Range Interpretation Comments VALPROIC A (test code = 38 ug/mL 50-100 L [id number]) JOEY (test code = JOEY) Toxic Range: ?Greater than 100 ug/mL Lab Interpretation (test Abnormal code = 16709-1) [facility] [id number] 17:06:00 Test Item Value Reference Range Interpretation Comments VALPROIC A (test code = 38 ug/mL 50-100 L [id number]) JOEY (test code = JOEY) Toxic Range: ?Greater than 100 ug/mL Lab Interpretation (test Abnormal code = 26174-6) [facility] [id number] 17:06:00 Test Item Value Reference Range Interpretation Comments VALPROIC A (test code = 38 ug/mL 50-100 L [id number]) JOEY (test code = JOEY) Toxic Range: ?Greater than 100 ug/mL Lab Interpretation (test Abnormal code = 72049-5) [facility]2020-02-07 16:23:00 Test Item Value Reference Range Interpretation Comments HGB A1C (test code = 5.1 % 4-6 4548-4) JOEY (test code = JOEY) %A1C (NGSP) Interpretation (ADA)4.8-5.6 ? ? Normal or (Non-Diabetic Range)5.7-6.4 ? ? Increased Risk (Pre-Diabetic)>6.5 ?Diabetes Indicated Lab Interpretation Normal (test code = 84031-3) [facility]2020-02-07 16:23:00 Test Item Value Reference Range Interpretation Comments HGB A1C (test code = 5.1 % 4-6 4548-4) JOEY (test code = JOEY) %A1C (NGSP) Interpretation (ADA)4.8-5.6 ? ? Normal or (Non-Diabetic Range)5.7-6.4 ? ? Increased Risk (Pre-Diabetic)>6.5 ?Diabetes Indicated Lab Interpretation Normal (test code = 25655-4) [facility]2020-02-07 16:23:00 Test Item Value Reference Range Interpretation Comments HGB A1C (test code = 5.1 % 4-6 4548-4) JOEY (test code = JOEY) %A1C (NGSP) Interpretation (ADA)4.8-5.6 ? ? Normal or (Non-Diabetic Range)5.7-6.4 ? ? Increased Risk (Pre-Diabetic)>6.5 ?Diabetes Indicated Lab Interpretation Normal (test code = 43127-8) [facility]2020-02-07 16:23:00 Test Item Value Reference Range Interpretation Comments HGB A1C (test code = 5.1 % 4-6 4548-4) JOEY (test code = JOEY) %A1C (NGSP) Interpretation (ADA)4.8-5.6 ? ? Normal or (Non-Diabetic Range)5.7-6.4 ? ? Increased Risk (Pre-Diabetic)>6.5 ?Diabetes Indicated Lab Interpretation Normal (test code = 98536-5) [facility]2020-02-07 16:23:00 Test Item Value Reference Range Interpretation Comments HGB A1C (test code = 5.1 % 4-6 4548-4) JOEY (test code = JOEY) %A1C (NGSP) Interpretation (ADA)4.8-5.6 ? ? Normal or (Non-Diabetic Range)5.7-6.4 ? ? Increased Risk (Pre-Diabetic)>6.5 ?Diabetes Indicated Lab Interpretation Normal (test code = 32336-5) [facility]2020-02-07 16:23:00 Test Item Value Reference Range Interpretation Comments HGB A1C (test code = 5.1 % 4-6 4548-4) JOEY (test code = JOEY) %A1C (NGSP) Interpretation (ADA)4.8-5.6 ? ? Normal or (Non-Diabetic Range)5.7-6.4 ? ? Increased Risk (Pre-Diabetic)>6.5 ?Diabetes Indicated Lab Interpretation Normal (test code = 87134-9) [facility]2020-02-07 16:23:00 Test Item Value Reference Range Interpretation Comments HGB A1C (test code = 5.1 % 4-6 4548-4) JOEY (test code = JOEY) %A1C (NGSP) Interpretation (ADA)4.8-5.6 ? ? Normal or (Non-Diabetic Range)5.7-6.4 ? ? Increased Risk (Pre-Diabetic)>6.5 ?Diabetes Indicated Lab Interpretation Normal (test code = 56835-6) [facility]2020-02-07 16:23:00 Test Item Value Reference Range Interpretation Comments HGB A1C (test code = 5.1 % 4-6 4548-4) JOEY (test code = JOEY) %A1C (NGSP) Interpretation (ADA)4.8-5.6 ? ? Normal or (Non-Diabetic Range)5.7-6.4 ? ? Increased Risk (Pre-Diabetic)>6.5 ?Diabetes Indicated Lab Interpretation Normal (test code = 65983-2) [facility]2020-02-07 16:23:00 Test Item Value Reference Range Interpretation Comments HGB A1C (test code = 5.1 % 4-6 4548-4) JOEY (test code = JOEY) %A1C (NGSP) Interpretation (ADA)4.8-5.6 ? ? Normal or (Non-Diabetic Range)5.7-6.4 ? ? Increased Risk (Pre-Diabetic)>6.5 ?Diabetes Indicated Lab Interpretation Normal (test code = 33348-7) [facility]2020-02-07 16:23:00 Test Item Value Reference Range Interpretation Comments HGB A1C (test code = 5.1 % 4-6 4548-4) JOEY (test code = JOEY) %A1C (NGSP) Interpretation (ADA)4.8-5.6 ? ? Normal or (Non-Diabetic Range)5.7-6.4 ? ? Increased Risk (Pre-Diabetic)>6.5 ?Diabetes Indicated Lab Interpretation Normal (test code = 57034-2) [facility]2020-02-07 16:23:00 Test Item Value Reference Range Interpretation Comments HGB A1C (test code = 5.1 % 4-6 4548-4) JOEY (test code = JOEY) %A1C (NGSP) Interpretation (ADA)4.8-5.6 ? ? Normal or (Non-Diabetic Range)5.7-6.4 ? ? Increased Risk (Pre-Diabetic)>6.5 ?Diabetes Indicated Lab Interpretation Normal (test code = 29838-1) [facility]2020-02-07 16:23:00 Test Item Value Reference Range Interpretation Comments HGB A1C (test code = 5.1 % 4-6 4548-4) JOEY (test code = JOEY) %A1C (NGSP) Interpretation (ADA)4.8-5.6 ? ? Normal or (Non-Diabetic Range)5.7-6.4 ? ? Increased Risk (Pre-Diabetic)>6.5 ?Diabetes Indicated Lab Interpretation Normal (test code = 59938-9) [facility]2020-02-07 16:23:00 Test Item Value Reference Range Interpretation Comments HGB A1C (test code = 5.1 % 4-6 4548-4) JOEY (test code = JOEY) %A1C (NGSP) Interpretation (ADA)4.8-5.6 ? ? Normal or (Non-Diabetic Range)5.7-6.4 ? ? Increased Risk (Pre-Diabetic)>6.5 ?Diabetes Indicated Lab Interpretation Normal (test code = 25753-8) [facility]2020-02-07 16:23:00 Test Item Value Reference Range Interpretation Comments HGB A1C (test code = 5.1 % 4-6 4548-4) JOEY (test code = JOEY) %A1C (NGSP) Interpretation (ADA)4.8-5.6 ? ? Normal or (Non-Diabetic Range)5.7-6.4 ? ? Increased Risk (Pre-Diabetic)>6.5 ?Diabetes Indicated Lab Interpretation Normal (test code = 40031-9) [facility]2020-02-07 16:23:00 Test Item Value Reference Range Interpretation Comments HGB A1C (test code = 5.1 % 4-6 4548-4) JOEY (test code = JOEY) %A1C (NGSP) Interpretation (ADA)4.8-5.6 ? ? Normal or (Non-Diabetic Range)5.7-6.4 ? ? Increased Risk (Pre-Diabetic)>6.5 ?Diabetes Indicated Lab Interpretation Normal (test code = 34939-0) [facility] [id number] 15:41:00 Test Item Value Reference Range Interpretation Comments WBC (test code = See_Comment [Automated 90-2) message] The sy stem which generated this result transmitted reference range : 4.20 - 10.70 10*3/?L. The reference range was not used to interpret this result as normal/abnormal . RBC (test code = See_Comment [Automated 7098) message] The sy stem which generated this result transmitted reference range : 4.26 - 5.52 10*6/?L. The reference range was not used to interpret this result as normal/abnormal . HGB (test code = 15.0 g/dL 12.2-16.4 718-7) HCT (test code = 45.8 % 38.4-49.3 4544-3) MCV (test code = 100.4 fL 81.7-95.6 H 787-2) MCH (test code = 32.9 pg 26.1-32.7 H 785-6) MCHC (test code = 32.8 g/dL 31.2-35 786-4) RDW-SD (test code = 51.1 fL 38.5-51.6 14211-7) RDW-CV (test code = 13.9 % 12.1-15.4 788-0) PLT (test code = See_Comment [Automated 777-3) message] The sy stem which generated this result transmitted reference range : 150 - 328 10*3/ ?L. The reference r sarahy was not used to interpret this result as normal/abnormal . MPV (test code = 10.3 fL 9.8-13 29794-7) NRBC/100 WBC (test See_Comment [Automat ed code = 9694294672) message] The system which generated this result transmitted reference range : 0.0 - 10.0 /100 WBCs. The refer ence range was not u sed to interpret th is result as normal/abnormal . NRBC x10^3 (test code <0.01 See_Comment [Auto mated = 8396199086) message] The s ystem which generated this result transmitted reference range : 10*3/?L. The reference range was not used to interpret this result as normal/abnormal . GRAN MAT (NEUT) % 64.3 % (test code = 770-8) IMM GRAN % (test code 0.30 % = 2050991550) LYMPH % (test code = 22.6 % 736-9) MONO % (test code = 8.8 % 5905-5) EOS % (test code = 3.0 % 713-8) BASO % (test code = 1.0 % 706-2) GRAN MAT x10^3(ANC) 4.02 10*3/uL 1.99-6.95 (test code = 6977701511) IMM GRAN x10^3 (test <0.03 0-0.06 code = 1228273382) LYMPH x10^3 (test code 1.41 10*3/uL 1.09-3.23 = 731-0) MONO x10^3 (test code 0.55 10*3/uL 0.36-1.02 = 742-7) EOS x10^3 (test code = 0.19 10*3/uL 0.06-0.53 711-2) BASO x10^3 (test code 0.06 10*3/uL 0.01-0.09 = 704-7) Lab Interpretation Abnormal (test code = 07378-1) [facility] [id number] 15:41:00 Test Item Value Reference Range Interpretation Comments WBC (test code = See_Comment [Automated 2079-2) message] The sy stem which generated this result transmitted reference range : 4.20 - 10.70 10*3/?L. The reference range was not used to interpret this result as normal/abnormal . RBC (test code = See_Comment [Automated 179-8) message] The sy stem which generated this result transmitted reference range : 4.26 - 5.52 10*6/?L. The reference range was not used to interpret this result as normal/abnormal . HGB (test code = 15.0 g/dL 12.2-16.4 718-7) HCT (test code = 45.8 % 38.4-49.3 4544-3) MCV (test code = 100.4 fL 81.7-95.6 H 787-2) MCH (test code = 32.9 pg 26.1-32.7 H 785-6) MCHC (test code = 32.8 g/dL 31.2-35 786-4) RDW-SD (test code = 51.1 fL 38.5-51.6 85968-1) RDW-CV (test code = 13.9 % 12.1-15.4 788-0) PLT (test code = See_Comment [Automated 777-3) message] The sy stem which generated this result transmitted reference range : 150 - 328 10*3/ ?L. The reference r sarahy was not used to interpret this result as normal/abnormal . MPV (test code = 10.3 fL 9.8-13 87238-3) NRBC/100 WBC (test See_Comment [Automat ed code = 2964749363) message] The system which generated this result transmitted reference range : 0.0 - 10.0 /100 WBCs. The refer ence range was not u sed to interpret th is result as normal/abnormal . NRBC x10^3 (test code <0.01 See_Comment [Auto mated = 7286151659) message] The s ystem which generated this result transmitted reference range : 10*3/?L. The reference range was not used to interpret this result as normal/abnormal . GRAN MAT (NEUT) % 64.3 % (test code = 770-8) IMM GRAN % (test code 0.30 % = 6032835591) LYMPH % (test code = 22.6 % 736-9) MONO % (test code = 8.8 % 5905-5) EOS % (test code = 3.0 % 713-8) BASO % (test code = 1.0 % 706-2) GRAN MAT x10^3(ANC) 4.02 10*3/uL 1.99-6.95 (test code = 3440599414) IMM GRAN x10^3 (test <0.03 0-0.06 code = 0796677891) LYMPH x10^3 (test code 1.41 10*3/uL 1.09-3.23 = 731-0) MONO x10^3 (test code 0.55 10*3/uL 0.36-1.02 = 742-7) EOS x10^3 (test code = 0.19 10*3/uL 0.06-0.53 711-2) BASO x10^3 (test code 0.06 10*3/uL 0.01-0.09 = 704-7) Lab Interpretation Abnormal (test code = 58275-6) [facility] [id number] 15:41:00 Test Item Value Reference Range Interpretation Comments WBC (test code = See_Comment [Automated 6690-2) message] The sy stem which generated this result transmitted reference range : 4.20 - 10.70 10*3/?L. The reference range was not used to interpret this result as normal/abnormal . RBC (test code = See_Comment [Automated 789-8) message] The sy stem which generated this result transmitted reference range : 4.26 - 5.52 10*6/?L. The reference range was not used to interpret this result as normal/abnormal . HGB (test code = 15.0 g/dL 12.2-16.4 718-7) HCT (test code = 45.8 % 38.4-49.3 4544-3) MCV (test code = 100.4 fL 81.7-95.6 H 787-2) MCH (test code = 32.9 pg 26.1-32.7 H 785-6) MCHC (test code = 32.8 g/dL 31.2-35 786-4) RDW-SD (test code = 51.1 fL 38.5-51.6 90131-8) RDW-CV (test code = 13.9 % 12.1-15.4 788-0) PLT (test code = See_Comment [Automated 777-3) message] The sy stem which generated this result transmitted reference range : 150 - 328 10*3/ ?L. The reference r sarahy was not used to interpret this result as normal/abnormal . MPV (test code = 10.3 fL 9.8-13 05379-9) NRBC/100 WBC (test See_Comment [Automat ed code = 4227297565) message] The system which generated this result transmitted reference range : 0.0 - 10.0 /100 WBCs. The refer ence range was not u sed to interpret th is result as normal/abnormal . NRBC x10^3 (test code <0.01 See_Comment [Auto mated = 2405983428) message] The s ystem which generated this result transmitted reference range : 10*3/?L. The reference range was not used to interpret this result as normal/abnormal . GRAN MAT (NEUT) % 64.3 % (test code = 770-8) IMM GRAN % (test code 0.30 % = 8301775313) LYMPH % (test code = 22.6 % 736-9) MONO % (test code = 8.8 % 5905-5) EOS % (test code = 3.0 % 713-8) BASO % (test code = 1.0 % 706-2) GRAN MAT x10^3(ANC) 4.02 10*3/uL 1.99-6.95 (test code = 0396557589) IMM GRAN x10^3 (test <0.03 0-0.06 code = 7884944885) LYMPH x10^3 (test code 1.41 10*3/uL 1.09-3.23 = 731-0) MONO x10^3 (test code 0.55 10*3/uL 0.36-1.02 = 742-7) EOS x10^3 (test code = 0.19 10*3/uL 0.06-0.53 711-2) BASO x10^3 (test code 0.06 10*3/uL 0.01-0.09 = 704-7) Lab Interpretation Abnormal (test code = 71455-3) [facility] [id number] 15:41:00 Test Item Value Reference Range Interpretation Comments WBC (test code = See_Comment [Automated 6191-2) message] The sy stem which generated this result transmitted reference range : 4.20 - 10.70 10*3/?L. The reference range was not used to interpret this result as normal/abnormal . RBC (test code = See_Comment [Automated 215-8) message] The sy stem which generated this result transmitted reference range : 4.26 - 5.52 10*6/?L. The reference range was not used to interpret this result as normal/abnormal . HGB (test code = 15.0 g/dL 12.2-16.4 718-7) HCT (test code = 45.8 % 38.4-49.3 4544-3) MCV (test code = 100.4 fL 81.7-95.6 H 787-2) MCH (test code = 32.9 pg 26.1-32.7 H 785-6) MCHC (test code = 32.8 g/dL 31.2-35 786-4) RDW-SD (test code = 51.1 fL 38.5-51.6 87018-6) RDW-CV (test code = 13.9 % 12.1-15.4 788-0) PLT (test code = See_Comment [Automated 255-3) message] The sy stem which generated this result transmitted reference range : 150 - 328 10*3/ ?L. The reference r sarahy was not used to interpret this result as normal/abnormal . MPV (test code = 10.3 fL 9.8-13 66098-3) NRBC/100 WBC (test See_Comment [Automat ed code = 3905284807) message] The system which generated this result transmitted reference range : 0.0 - 10.0 /100 WBCs. The refer ence range was not u sed to interpret th is result as normal/abnormal . NRBC x10^3 (test code <0.01 See_Comment [Auto mated = 0346178749) message] The s ystem which generated this result transmitted reference range : 10*3/?L. The reference range was not used to interpret this result as normal/abnormal . GRAN MAT (NEUT) % 64.3 % (test code = 770-8) IMM GRAN % (test code 0.30 % = 1921432968) LYMPH % (test code = 22.6 % 736-9) MONO % (test code = 8.8 % 5905-5) EOS % (test code = 3.0 % 713-8) BASO % (test code = 1.0 % 706-2) GRAN MAT x10^3(ANC) 4.02 10*3/uL 1.99-6.95 (test code = 4763580427) IMM GRAN x10^3 (test <0.03 0-0.06 code = 5309314140) LYMPH x10^3 (test code 1.41 10*3/uL 1.09-3.23 = 731-0) MONO x10^3 (test code 0.55 10*3/uL 0.36-1.02 = 742-7) EOS x10^3 (test code = 0.19 10*3/uL 0.06-0.53 711-2) BASO x10^3 (test code 0.06 10*3/uL 0.01-0.09 = 704-7) Lab Interpretation Abnormal (test code = 00097-8) [facility] [id number] 15:41:00 Test Item Value Reference Range Interpretation Comments WBC (test code = See_Comment [Automated 6690-2) message] The sy stem which generated this result transmitted reference range : 4.20 - 10.70 10*3/?L. The reference range was not used to interpret this result as normal/abnormal . RBC (test code = See_Comment [Automated 789-8) message] The sy stem which generated this result transmitted reference range : 4.26 - 5.52 10*6/?L. The reference range was not used to interpret this result as normal/abnormal . HGB (test code = 15.0 g/dL 12.2-16.4 718-7) HCT (test code = 45.8 % 38.4-49.3 4544-3) MCV (test code = 100.4 fL 81.7-95.6 H 787-2) MCH (test code = 32.9 pg 26.1-32.7 H 785-6) MCHC (test code = 32.8 g/dL 31.2-35 786-4) RDW-SD (test code = 51.1 fL 38.5-51.6 30417-9) RDW-CV (test code = 13.9 % 12.1-15.4 788-0) PLT (test code = See_Comment [Automated 777-3) message] The sy stem which generated this result transmitted reference range : 150 - 328 10*3/ ?L. The reference r sarahy was not used to interpret this result as normal/abnormal . MPV (test code = 10.3 fL 9.8-13 56089-5) NRBC/100 WBC (test See_Comment [Automat ed code = 9403997531) message] The system which generated this result transmitted reference range : 0.0 - 10.0 /100 WBCs. The refer ence range was not u sed to interpret th is result as normal/abnormal . NRBC x10^3 (test code <0.01 See_Comment [Auto mated = 4524838509) message] The s ystem which generated this result transmitted reference range : 10*3/?L. The reference range was not used to interpret this result as normal/abnormal . GRAN MAT (NEUT) % 64.3 % (test code = 770-8) IMM GRAN % (test code 0.30 % = 2727866827) LYMPH % (test code = 22.6 % 736-9) MONO % (test code = 8.8 % 5905-5) EOS % (test code = 3.0 % 713-8) BASO % (test code = 1.0 % 706-2) GRAN MAT x10^3(ANC) 4.02 10*3/uL 1.99-6.95 (test code = 7752250053) IMM GRAN x10^3 (test <0.03 0-0.06 code = 3117574694) LYMPH x10^3 (test code 1.41 10*3/uL 1.09-3.23 = 731-0) MONO x10^3 (test code 0.55 10*3/uL 0.36-1.02 = 742-7) EOS x10^3 (test code = 0.19 10*3/uL 0.06-0.53 711-2) BASO x10^3 (test code 0.06 10*3/uL 0.01-0.09 = 704-7) Lab Interpretation Abnormal (test code = 05987-8) [facility] [id number] 15:41:00 Test Item Value Reference Range Interpretation Comments WBC (test code = See_Comment [Automated 6690-2) message] The sy stem which generated this result transmitted reference range : 4.20 - 10.70 10*3/?L. The reference range was not used to interpret this result as normal/abnormal . RBC (test code = See_Comment [Automated 789-8) message] The sy stem which generated this result transmitted reference range : 4.26 - 5.52 10*6/?L. The reference range was not used to interpret this result as normal/abnormal . HGB (test code = 15.0 g/dL 12.2-16.4 718-7) HCT (test code = 45.8 % 38.4-49.3 4544-3) MCV (test code = 100.4 fL 81.7-95.6 H 787-2) MCH (test code = 32.9 pg 26.1-32.7 H 785-6) MCHC (test code = 32.8 g/dL 31.2-35 786-4) RDW-SD (test code = 51.1 fL 38.5-51.6 35466-8) RDW-CV (test code = 13.9 % 12.1-15.4 788-0) PLT (test code = See_Comment [Automated 777-3) message] The sy stem which generated this result transmitted reference range : 150 - 328 10*3/ ?L. The reference r sarahy was not used to interpret this result as normal/abnormal . MPV (test code = 10.3 fL 9.8-13 28504-6) NRBC/100 WBC (test See_Comment [Automat ed code = 8540115911) message] The system which generated this result transmitted reference range : 0.0 - 10.0 /100 WBCs. The refer ence range was not u sed to interpret th is result as normal/abnormal . NRBC x10^3 (test code <0.01 See_Comment [Auto mated = 6787833278) message] The s ystem which generated this result transmitted reference range : 10*3/?L. The reference range was not used to interpret this result as normal/abnormal . GRAN MAT (NEUT) % 64.3 % (test code = 770-8) IMM GRAN % (test code 0.30 % = 1526615391) LYMPH % (test code = 22.6 % 736-9) MONO % (test code = 8.8 % 5905-5) EOS % (test code = 3.0 % 713-8) BASO % (test code = 1.0 % 706-2) GRAN MAT x10^3(ANC) 4.02 10*3/uL 1.99-6.95 (test code = 7178395563) IMM GRAN x10^3 (test <0.03 0-0.06 code = 9298412352) LYMPH x10^3 (test code 1.41 10*3/uL 1.09-3.23 = 731-0) MONO x10^3 (test code 0.55 10*3/uL 0.36-1.02 = 742-7) EOS x10^3 (test code = 0.19 10*3/uL 0.06-0.53 711-2) BASO x10^3 (test code 0.06 10*3/uL 0.01-0.09 = 704-7) Lab Interpretation Abnormal (test code = 28486-3) [facility] [id number] 15:41:00 Test Item Value Reference Range Interpretation Comments WBC (test code = See_Comment [Automated 6690-2) message] The sy stem which generated this result transmitted reference range : 4.20 - 10.70 10*3/?L. The reference range was not used to interpret this result as normal/abnormal . RBC (test code = See_Comment [Automated 789-8) message] The sy stem which generated this result transmitted reference range : 4.26 - 5.52 10*6/?L. The reference range was not used to interpret this result as normal/abnormal . HGB (test code = 15.0 g/dL 12.2-16.4 718-7) HCT (test code = 45.8 % 38.4-49.3 4544-3) MCV (test code = 100.4 fL 81.7-95.6 H 787-2) MCH (test code = 32.9 pg 26.1-32.7 H 785-6) MCHC (test code = 32.8 g/dL 31.2-35 786-4) RDW-SD (test code = 51.1 fL 38.5-51.6 49041-1) RDW-CV (test code = 13.9 % 12.1-15.4 788-0) PLT (test code = See_Comment [Automated 777-3) message] The sy stem which generated this result transmitted reference range : 150 - 328 10*3/ ?L. The reference r sarahy was not used to interpret this result as normal/abnormal . MPV (test code = 10.3 fL 9.8-13 13548-3) NRBC/100 WBC (test See_Comment [Automat ed code = 7700195808) message] The system which generated this result transmitted reference range : 0.0 - 10.0 /100 WBCs. The refer ence range was not u sed to interpret th is result as normal/abnormal . NRBC x10^3 (test code <0.01 See_Comment [Auto mated = 5569523954) message] The s ystem which generated this result transmitted reference range : 10*3/?L. The reference range was not used to interpret this result as normal/abnormal . GRAN MAT (NEUT) % 64.3 % (test code = 770-8) IMM GRAN % (test code 0.30 % = 4704155277) LYMPH % (test code = 22.6 % 736-9) MONO % (test code = 8.8 % 5905-5) EOS % (test code = 3.0 % 713-8) BASO % (test code = 1.0 % 706-2) GRAN MAT x10^3(ANC) 4.02 10*3/uL 1.99-6.95 (test code = 2347074689) IMM GRAN x10^3 (test <0.03 0-0.06 code = 4367979325) LYMPH x10^3 (test code 1.41 10*3/uL 1.09-3.23 = 731-0) MONO x10^3 (test code 0.55 10*3/uL 0.36-1.02 = 742-7) EOS x10^3 (test code = 0.19 10*3/uL 0.06-0.53 711-2) BASO x10^3 (test code 0.06 10*3/uL 0.01-0.09 = 704-7) Lab Interpretation Abnormal (test code = 87326-2) [facility] [id number] 15:41:00 Test Item Value Reference Range Interpretation Comments WBC (test code = See_Comment [Automated 1475-2) message] The sy stem which generated this result transmitted reference range : 4.20 - 10.70 10*3/?L. The reference range was not used to interpret this result as normal/abnormal . RBC (test code = See_Comment [Automated 928-8) message] The sy stem which generated this result transmitted reference range : 4.26 - 5.52 10*6/?L. The reference range was not used to interpret this result as normal/abnormal . HGB (test code = 15.0 g/dL 12.2-16.4 718-7) HCT (test code = 45.8 % 38.4-49.3 4544-3) MCV (test code = 100.4 fL 81.7-95.6 H 787-2) MCH (test code = 32.9 pg 26.1-32.7 H 785-6) MCHC (test code = 32.8 g/dL 31.2-35 786-4) RDW-SD (test code = 51.1 fL 38.5-51.6 26019-7) RDW-CV (test code = 13.9 % 12.1-15.4 788-0) PLT (test code = See_Comment [Automated 777-3) message] The sy stem which generated this result transmitted reference range : 150 - 328 10*3/ ?L. The reference r sarahy was not used to interpret this result as normal/abnormal . MPV (test code = 10.3 fL 9.8-13 78699-0) NRBC/100 WBC (test See_Comment [Automat ed code = [id number]) message] The system which generated this result transmitted reference range : 0.0 - 10.0 /100 WBCs. The refer ence range was not u sed to interpret th is result as normal/abnormal . NRBC x10^3 (test code <0.01 See_Comment [Auto mated = [id number]) message] The s ystem which generated this result transmitted reference range : 10*3/?L. The reference range was not used to interpret this result as normal/abnormal . GRAN MAT (NEUT) % 64.3 % (test code = 770-8) IMM GRAN % (test code 0.30 % = 5081207084) LYMPH % (test code = 22.6 % 736-9) MONO % (test code = 8.8 % 5905-5) EOS % (test code = 3.0 % 713-8) BASO % (test code = 1.0 % 706-2) GRAN MAT x10^3(ANC) 4.02 10*3/uL 1.99-6.95 (test code = 5109062460) IMM GRAN x10^3 (test <0.03 0-0.06 code = 2661153951) LYMPH x10^3 (test code 1.41 10*3/uL 1.09-3.23 = 731-0) MONO x10^3 (test code 0.55 10*3/uL 0.36-1.02 = 742-7) EOS x10^3 (test code = 0.19 10*3/uL 0.06-0.53 711-2) BASO x10^3 (test code 0.06 10*3/uL 0.01-0.09 = 704-7) Lab Interpretation Abnormal (test code = 12661-9) [facility] [id number] 15:41:00 Test Item Value Reference Range Interpretation Comments WBC (test code = See_Comment [Automated 6690-2) message] The sy stem which generated this result transmitted reference range : 4.20 - 10.70 10*3/?L. The reference range was not used to interpret this result as normal/abnormal . RBC (test code = See_Comment [Automated 789-8) message] The sy stem which generated this result transmitted reference range : 4.26 - 5.52 10*6/?L. The reference range was not used to interpret this result as normal/abnormal . HGB (test code = 15.0 g/dL 12.2-16.4 718-7) HCT (test code = 45.8 % 38.4-49.3 4544-3) MCV (test code = 100.4 fL 81.7-95.6 H 787-2) MCH (test code = 32.9 pg 26.1-32.7 H 785-6) MCHC (test code = 32.8 g/dL 31.2-35 786-4) RDW-SD (test code = 51.1 fL 38.5-51.6 32951-9) RDW-CV (test code = 13.9 % 12.1-15.4 788-0) PLT (test code = See_Comment [Automated 777-3) message] The sy stem which generated this result transmitted reference range : 150 - 328 10*3/ ?L. The reference r sarahy was not used to interpret this result as normal/abnormal . MPV (test code = 10.3 fL 9.8-13 20770-6) NRBC/100 WBC (test See_Comment [Automat ed code = 7813120725) message] The system which generated this result transmitted reference range : 0.0 - 10.0 /100 WBCs. The refer ence range was not u sed to interpret th is result as normal/abnormal . NRBC x10^3 (test code <0.01 See_Comment [Auto mated = 9957562380) message] The s ystem which generated this result transmitted reference range : 10*3/?L. The reference range was not used to interpret this result as normal/abnormal . GRAN MAT (NEUT) % 64.3 % (test code = 770-8) IMM GRAN % (test code 0.30 % = 4185146425) LYMPH % (test code = 22.6 % 736-9) MONO % (test code = 8.8 % 5905-5) EOS % (test code = 3.0 % 713-8) BASO % (test code = 1.0 % 706-2) GRAN MAT x10^3(ANC) 4.02 10*3/uL 1.99-6.95 (test code = 6714287840) IMM GRAN x10^3 (test <0.03 0-0.06 code = 1104493233) LYMPH x10^3 (test code 1.41 10*3/uL 1.09-3.23 = 731-0) MONO x10^3 (test code 0.55 10*3/uL 0.36-1.02 = 742-7) EOS x10^3 (test code = 0.19 10*3/uL 0.06-0.53 711-2) BASO x10^3 (test code 0.06 10*3/uL 0.01-0.09 = 704-7) Lab Interpretation Abnormal (test code = 97534-7) [facility] [id number] 15:41:00 Test Item Value Reference Range Interpretation Comments WBC (test code = See_Comment [Automated 8490-2) message] The sy stem which generated this result transmitted reference range : 4.20 - 10.70 10*3/?L. The reference range was not used to interpret this result as normal/abnormal . RBC (test code = See_Comment [Automated 409-8) message] The sy stem which generated this result transmitted reference range : 4.26 - 5.52 10*6/?L. The reference range was not used to interpret this result as normal/abnormal . HGB (test code = 15.0 g/dL 12.2-16.4 718-7) HCT (test code = 45.8 % 38.4-49.3 4544-3) MCV (test code = 100.4 fL 81.7-95.6 H 787-2) MCH (test code = 32.9 pg 26.1-32.7 H 785-6) MCHC (test code = 32.8 g/dL 31.2-35 786-4) RDW-SD (test code = 51.1 fL 38.5-51.6 94483-6) RDW-CV (test code = 13.9 % 12.1-15.4 788-0) PLT (test code = See_Comment [Automated 777-3) message] The sy stem which generated this result transmitted reference range : 150 - 328 10*3/ ?L. The reference r sarahy was not used to interpret this result as normal/abnormal . MPV (test code = 10.3 fL 9.8-13 62753-4) NRBC/100 WBC (test See_Comment [Automat ed code = 6506596439) message] The system which generated this result transmitted reference range : 0.0 - 10.0 /100 WBCs. The refer ence range was not u sed to interpret th is result as normal/abnormal . NRBC x10^3 (test code <0.01 See_Comment [Auto mated = 0987297069) message] The s ystem which generated this result transmitted reference range : 10*3/?L. The reference range was not used to interpret this result as normal/abnormal . GRAN MAT (NEUT) % 64.3 % (test code = 770-8) IMM GRAN % (test code 0.30 % = 0795625333) LYMPH % (test code = 22.6 % 736-9) MONO % (test code = 8.8 % 5905-5) EOS % (test code = 3.0 % 713-8) BASO % (test code = 1.0 % 706-2) GRAN MAT x10^3(ANC) 4.02 10*3/uL 1.99-6.95 (test code = 3698287864) IMM GRAN x10^3 (test <0.03 0-0.06 code = 7198190326) LYMPH x10^3 (test code 1.41 10*3/uL 1.09-3.23 = 731-0) MONO x10^3 (test code 0.55 10*3/uL 0.36-1.02 = 742-7) EOS x10^3 (test code = 0.19 10*3/uL 0.06-0.53 711-2) BASO x10^3 (test code 0.06 10*3/uL 0.01-0.09 = 704-7) Lab Interpretation Abnormal (test code = 01191-1) [facility] [id number] 15:41:00 Test Item Value Reference Range Interpretation Comments WBC (test code = See_Comment [Automated 2190-2) message] The sy stem which generated this result transmitted reference range : 4.20 - 10.70 10*3/?L. The reference range was not used to interpret this result as normal/abnormal . RBC (test code = See_Comment [Automated 689-8) message] The sy stem which generated this result transmitted reference range : 4.26 - 5.52 10*6/?L. The reference range was not used to interpret this result as normal/abnormal . HGB (test code = 15.0 g/dL 12.2-16.4 718-7) HCT (test code = 45.8 % 38.4-49.3 4544-3) MCV (test code = 100.4 fL 81.7-95.6 H 787-2) MCH (test code = 32.9 pg 26.1-32.7 H 785-6) MCHC (test code = 32.8 g/dL 31.2-35 786-4) RDW-SD (test code = 51.1 fL 38.5-51.6 74583-4) RDW-CV (test code = 13.9 % 12.1-15.4 788-0) PLT (test code = See_Comment [Automated 027-3) message] The sy stem which generated this result transmitted reference range : 150 - 328 10*3/ ?L. The reference r sarahy was not used to interpret this result as normal/abnormal . MPV (test code = 10.3 fL 9.8-13 43503-2) NRBC/100 WBC (test See_Comment [Automat ed code = 5009717652) message] The system which generated this result transmitted reference range : 0.0 - 10.0 /100 WBCs. The refer ence range was not u sed to interpret th is result as normal/abnormal . NRBC x10^3 (test code <0.01 See_Comment [Auto mated = 4467318989) message] The s ystem which generated this result transmitted reference range : 10*3/?L. The reference range was not used to interpret this result as normal/abnormal . GRAN MAT (NEUT) % 64.3 % (test code = 770-8) IMM GRAN % (test code 0.30 % = 8950489567) LYMPH % (test code = 22.6 % 736-9) MONO % (test code = 8.8 % 5905-5) EOS % (test code = 3.0 % 713-8) BASO % (test code = 1.0 % 706-2) GRAN MAT x10^3(ANC) 4.02 10*3/uL 1.99-6.95 (test code = 5683299217) IMM GRAN x10^3 (test <0.03 0-0.06 code = 7924707628) LYMPH x10^3 (test code 1.41 10*3/uL 1.09-3.23 = 731-0) MONO x10^3 (test code 0.55 10*3/uL 0.36-1.02 = 742-7) EOS x10^3 (test code = 0.19 10*3/uL 0.06-0.53 711-2) BASO x10^3 (test code 0.06 10*3/uL 0.01-0.09 = 704-7) Lab Interpretation Abnormal (test code = 57452-8) [facility] WITH [id number] 15:41:00 Test Item Value Reference Range Interpretation Comments WBC (test code = See_Comment [Automated 5490-2) message] The sy stem which generated this result transmitted reference range : 4.20 - 10.70 10*3/?L. The reference range was not used to interpret this result as normal/abnormal . RBC (test code = See_Comment [Automated 789-8) message] The sy stem which generated this result transmitted reference range : 4.26 - 5.52 10*6/?L. The reference range was not used to interpret this result as normal/abnormal . HGB (test code = 15.0 g/dL 12.2-16.4 718-7) HCT (test code = 45.8 % 38.4-49.3 4544-3) MCV (test code = 100.4 fL 81.7-95.6 H 787-2) MCH (test code = 32.9 pg 26.1-32.7 H 785-6) MCHC (test code = 32.8 g/dL 31.2-35 786-4) RDW-SD (test code = 51.1 fL 38.5-51.6 02243-1) RDW-CV (test code = 13.9 % 12.1-15.4 788-0) PLT (test code = See_Comment [Automated 777-3) message] The sy stem which generated this result transmitted reference range : 150 - 328 10*3/ ?L. The reference r sarahy was not used to interpret this result as normal/abnormal . MPV (test code = 10.3 fL 9.8-13 79720-1) NRBC/100 WBC (test See_Comment [Automat ed code = 3379543618) message] The system which generated this result transmitted reference range : 0.0 - 10.0 /100 WBCs. The refer ence range was not u sed to interpret th is result as normal/abnormal . NRBC x10^3 (test code <0.01 See_Comment [Auto mated = 6855162406) message] The s ystem which generated this result transmitted reference range : 10*3/?L. The reference range was not used to interpret this result as normal/abnormal . GRAN MAT (NEUT) % 64.3 % (test code = 770-8) IMM GRAN % (test code 0.30 % = 1351563130) LYMPH % (test code = 22.6 % 736-9) MONO % (test code = 8.8 % 5905-5) EOS % (test code = 3.0 % 713-8) BASO % (test code = 1.0 % 706-2) GRAN MAT x10^3(ANC) 4.02 10*3/uL 1.99-6.95 (test code = 6626593271) IMM GRAN x10^3 (test <0.03 0-0.06 code = 3399026194) LYMPH x10^3 (test code 1.41 10*3/uL 1.09-3.23 = 731-0) MONO x10^3 (test code 0.55 10*3/uL 0.36-1.02 = 742-7) EOS x10^3 (test code = 0.19 10*3/uL 0.06-0.53 711-2) BASO x10^3 (test code 0.06 10*3/uL 0.01-0.09 = 704-7) Lab Interpretation Abnormal (test code = 71997-6) [facility] [id number] 15:41:00 Test Item Value Reference Range Interpretation Comments WBC (test code = See_Comment [Automated 5790-2) message] The sy stem which generated this result transmitted reference range : 4.20 - 10.70 10*3/?L. The reference range was not used to interpret this result as normal/abnormal . RBC (test code = See_Comment [Automated 769-8) message] The sy stem which generated this result transmitted reference range : 4.26 - 5.52 10*6/?L. The reference range was not used to interpret this result as normal/abnormal . HGB (test code = 15.0 g/dL 12.2-16.4 718-7) HCT (test code = 45.8 % 38.4-49.3 4544-3) MCV (test code = 100.4 fL 81.7-95.6 H 787-2) MCH (test code = 32.9 pg 26.1-32.7 H 785-6) MCHC (test code = 32.8 g/dL 31.2-35 786-4) RDW-SD (test code = 51.1 fL 38.5-51.6 22346-4) RDW-CV (test code = 13.9 % 12.1-15.4 788-0) PLT (test code = See_Comment [Automated 137-3) message] The sy stem which generated this result transmitted reference range : 150 - 328 10*3/ ?L. The reference r sarahy was not used to interpret this result as normal/abnormal . MPV (test code = 10.3 fL 9.8-13 36060-4) NRBC/100 WBC (test See_Comment [Automat ed code = 9514435026) message] The system which generated this result transmitted reference range : 0.0 - 10.0 /100 WBCs. The refer ence range was not u sed to interpret th is result as normal/abnormal . NRBC x10^3 (test code <0.01 See_Comment [Auto mated = 9763270545) message] The s ystem which generated this result transmitted reference range : 10*3/?L. The reference range was not used to interpret this result as normal/abnormal . GRAN MAT (NEUT) % 64.3 % (test code = 770-8) IMM GRAN % (test code 0.30 % = 5806141744) LYMPH % (test code = 22.6 % 736-9) MONO % (test code = 8.8 % 5905-5) EOS % (test code = 3.0 % 713-8) BASO % (test code = 1.0 % 706-2) GRAN MAT x10^3(ANC) 4.02 10*3/uL 1.99-6.95 (test code = 5417668819) IMM GRAN x10^3 (test <0.03 0-0.06 code = 1475192588) LYMPH x10^3 (test code 1.41 10*3/uL 1.09-3.23 = 731-0) MONO x10^3 (test code 0.55 10*3/uL 0.36-1.02 = 742-7) EOS x10^3 (test code = 0.19 10*3/uL 0.06-0.53 711-2) BASO x10^3 (test code 0.06 10*3/uL 0.01-0.09 = 704-7) Lab Interpretation Abnormal (test code = 03920-6) [facility] WITH [id number] 15:41:00 Test Item Value Reference Range Interpretation Comments WBC (test code = See_Comment [Automated 6690-2) message] The sy stem which generated this result transmitted reference range : 4.20 - 10.70 10*3/?L. The reference range was not used to interpret this result as normal/abnormal . RBC (test code = See_Comment [Automated 789-8) message] The sy stem which generated this result transmitted reference range : 4.26 - 5.52 10*6/?L. The reference range was not used to interpret this result as normal/abnormal . HGB (test code = 15.0 g/dL 12.2-16.4 718-7) HCT (test code = 45.8 % 38.4-49.3 4544-3) MCV (test code = 100.4 fL 81.7-95.6 H 787-2) MCH (test code = 32.9 pg 26.1-32.7 H 785-6) MCHC (test code = 32.8 g/dL 31.2-35 786-4) RDW-SD (test code = 51.1 fL 38.5-51.6 92233-0) RDW-CV (test code = 13.9 % 12.1-15.4 788-0) PLT (test code = See_Comment [Automated 777-3) message] The sy stem which generated this result transmitted reference range : 150 - 328 10*3/ ?L. The reference r sarahy was not used to interpret this result as normal/abnormal . MPV (test code = 10.3 fL 9.8-13 18535-9) NRBC/100 WBC (test See_Comment [Automat ed code = 8085646245) message] The system which generated this result transmitted reference range : 0.0 - 10.0 /100 WBCs. The refer ence range was not u sed to interpret th is result as normal/abnormal . NRBC x10^3 (test code <0.01 See_Comment [Auto mated = 1954010906) message] The s ystem which generated this result transmitted reference range : 10*3/?L. The reference range was not used to interpret this result as normal/abnormal . GRAN MAT (NEUT) % 64.3 % (test code = 770-8) IMM GRAN % (test code 0.30 % = 1190346352) LYMPH % (test code = 22.6 % 736-9) MONO % (test code = 8.8 % 5905-5) EOS % (test code = 3.0 % 713-8) BASO % (test code = 1.0 % 706-2) GRAN MAT x10^3(ANC) 4.02 10*3/uL 1.99-6.95 (test code = 0611720107) IMM GRAN x10^3 (test <0.03 0-0.06 code = 8730520625) LYMPH x10^3 (test code 1.41 10*3/uL 1.09-3.23 = 731-0) MONO x10^3 (test code 0.55 10*3/uL 0.36-1.02 = 742-7) EOS x10^3 (test code = 0.19 10*3/uL 0.06-0.53 711-2) BASO x10^3 (test code 0.06 10*3/uL 0.01-0.09 = 704-7) Lab Interpretation Abnormal (test code = 21538-8) [facility] [id number] 15:41:00 Test Item Value Reference Range Interpretation Comments WBC (test code = See_Comment [Automated 6690-2) message] The sy stem which generated this result transmitted reference range : 4.20 - 10.70 10*3/?L. The reference range was not used to interpret this result as normal/abnormal . RBC (test code = See_Comment [Automated 409-8) message] The sy stem which generated this result transmitted reference range : 4.26 - 5.52 10*6/?L. The reference range was not used to interpret this result as normal/abnormal . HGB (test code = 15.0 g/dL 12.2-16.4 718-7) HCT (test code = 45.8 % 38.4-49.3 4544-3) MCV (test code = 100.4 fL 81.7-95.6 H 787-2) MCH (test code = 32.9 pg 26.1-32.7 H 785-6) MCHC (test code = 32.8 g/dL 31.2-35 786-4) RDW-SD (test code = 51.1 fL 38.5-51.6 76844-9) RDW-CV (test code = 13.9 % 12.1-15.4 788-0) PLT (test code = See_Comment [Automated 777-3) message] The sy stem which generated this result transmitted reference range : 150 - 328 10*3/ ?L. The reference r sarahy was not used to interpret this result as normal/abnormal . MPV (test code = 10.3 fL 9.8-13 53774-2) NRBC/100 WBC (test See_Comment [Automat ed code = 8213453798) message] The system which generated this result transmitted reference range : 0.0 - 10.0 /100 WBCs. The refer ence range was not u sed to interpret th is result as normal/abnormal . NRBC x10^3 (test code <0.01 See_Comment [Auto mated = 6837685877) message] The s ystem which generated this result transmitted reference range : 10*3/?L. The reference range was not used to interpret this result as normal/abnormal . GRAN MAT (NEUT) % 64.3 % (test code = 770-8) IMM GRAN % (test code 0.30 % = 3715322340) LYMPH % (test code = 22.6 % 736-9) MONO % (test code = 8.8 % 5905-5) EOS % (test code = 3.0 % 713-8) BASO % (test code = 1.0 % 706-2) GRAN MAT x10^3(ANC) 4.02 10*3/uL 1.99-6.95 (test code = 7657407846) IMM GRAN x10^3 (test <0.03 0-0.06 code = 9639699505) LYMPH x10^3 (test code 1.41 10*3/uL 1.09-3.23 = 731-0) MONO x10^3 (test code 0.55 10*3/uL 0.36-1.02 = 742-7) EOS x10^3 (test code = 0.19 10*3/uL 0.06-0.53 711-2) BASO x10^3 (test code 0.06 10*3/uL 0.01-0.09 = 704-7) Lab Interpretation Abnormal (test code = 02796-6) [id number]TOTAL CHOLESTEROL, TRIGLYCERIDES, HDL)2019-02-20 17:10:00 Test Item Value Reference Range Interpretation Comments CHOL (test code = 140 mg/dL 120-200 7640227702) HDL (test code = 46 mg/dL >40 5126052037) HDLC RATIO (test code = See_Comment [Au tomated message] 6455380649) The system [employer] generated this result transmit claribel reference range : <=5.0. The refe rence range was not u sed to interpret th is result as normal/abnormal . TRIG (test code = 52 mg/dL 30-170 1611483027) LDL CHOL (test code = 84 mg/dL See_Comment [Auto mated message] 22672-3) The system [employer] generated this result transmit claribel reference range : <=160. The refe rence range was not u sed to interpret th is result as normal/abnormal . VLDL (test code = 10 mg/dL 5-60 8005036381) Lab Interpretation (test Normal code = 02881-6) [facility][id number])(TOTAL CHOLESTEROL, TRIGLYCERIDES, HDL)2019-02-20 17:10:00 Test Item Value Reference Range Interpretation Comments CHOL (test code = 140 mg/dL 120-200 5269638772) HDL (test code = 46 mg/dL >40 4455390054) HDLC RATIO (test code = See_Comment [Au tomated message] 6119629437) The system [employer] generated this result transmit claribel reference range : <=5.0. The refe rence range was not u sed to interpret th is result as normal/abnormal . TRIG (test code = 52 mg/dL 30-170 5406079548) LDL CHOL (test code = 84 mg/dL See_Comment [Auto mated message] 78158-9) The system [employer] generated this result transmit claribel reference range : <=160. The refe rence range was not u sed to interpret th is result as normal/abnormal . VLDL (test code = 10 mg/dL 5-60 0260612384) Lab Interpretation (test Normal code = 63324-0) [id number][facility]TOTAL CHOLESTEROL, TRIGLYCERIDES, HDL)2019-02-20 17:10:00 Test Item Value Reference Range Interpretation Comments CHOL (test code = 140 mg/dL 120-200 0502345885) HDL (test code = 46 mg/dL >40 9486215237) HDLC RATIO (test code = See_Comment [Au tomated message] 2233990838) The system [employer] generated this result transmit claribel reference range : <=5.0. The refe rence range was not u sed to interpret th is result as normal/abnormal . TRIG (test code = 52 mg/dL 30-170 5931571138) LDL CHOL (test code = 84 mg/dL See_Comment [Auto mated message] 00394-1) The system [employer] generated this result transmit claribel reference range : <=160. The refe rence range was not u sed to interpret th is result as normal/abnormal . VLDL (test code = 10 mg/dL 5-60 7643016160) Lab Interpretation (test Normal code = 14780-4) [facility][id number])(TOTAL CHOLESTEROL, TRIGLYCERIDES, HDL)2019-02-20 17:10:00 Test Item Value Reference Range Interpretation Comments CHOL (test code = 140 mg/dL 120-200 3890268072) HDL (test code = 46 mg/dL >40 1640898577) HDLC RATIO (test code = See_Comment [Au tomated message] 0786963923) The system [employer] generated this result transmit claribel reference range : <=5.0. The refe rence range was not u sed to interpret th is result as normal/abnormal . TRIG (test code = 52 mg/dL 30-170 7693408083) LDL CHOL (test code = 84 mg/dL See_Comment [Auto mated message] 81752-7) The system [employer] generated this result transmit claribel reference range : <=160. The refe rence range was not u sed to interpret th is result as normal/abnormal . VLDL (test code = 10 mg/dL 5-60 5983504793) Lab Interpretation (test Normal code = 36447-0) [id number][facility]TOTAL CHOLESTEROL, TRIGLYCERIDES, HDL)2019-02-20 17:10:00 Test Item Value Reference Range Interpretation Comments CHOL (test code = 140 mg/dL 120-200 0203052648) HDL (test code = 46 mg/dL >40 9392615306) HDLC RATIO (test code = See_Comment [Au tomated message] 8907446775) The system [employer] generated this result transmit claribel reference range : <=5.0. The refe rence range was not u sed to interpret th is result as normal/abnormal . TRIG (test code = 52 mg/dL 30-170 8975894239) LDL CHOL (test code = 84 mg/dL See_Comment [Auto mated message] 55912-8) The system [employer] generated this result transmit claribel reference range : <=160. The refe rence range was not u sed to interpret th is result as normal/abnormal . VLDL (test code = 10 mg/dL 5-60 4896119941) Lab Interpretation (test Normal code = 38650-7) [facility]2019-02-20 16:35:00 Test Item Value Reference Interpretation Comments Range HGB A1C (test code = See_Comment [Autom ated 4548-4) message] The system which generated this result transmitted reference range : 4.0 - 6.0 % NGSP. The reference range was not used to interpret this result as normal/abnormal . JOEY (test code = %A1C (NGSP) JOEY) Interpretation (ADA)4.8-5.6 ? ? Normal or (Non-Diabetic Range)5.7-6.4 ? ? Increased Risk (Pre-Diabetic)>6.5 ?Diabetes Indicated Lab Interpretation Normal (test code = 50859-4) [facility]2019-02-20 16:35:00 Test Item Value Reference Interpretation Comments Range HGB A1C (test code = See_Comment [Autom ated 4548-4) message] The system which generated this result transmitted reference range : 4.0 - 6.0 % NGSP. The reference range was not used to interpret this result as normal/abnormal . JOEY (test code = %A1C (NGSP) JOEY) Interpretation (ADA)4.8-5.6 ? ? Normal or (Non-Diabetic Range)5.7-6.4 ? ? Increased Risk (Pre-Diabetic)>6.5 ?Diabetes Indicated Lab Interpretation Normal (test code = 72107-8) [facility]2019-02-20 16:35:00 Test Item Value Reference Interpretation Comments Range HGB A1C (test code = See_Comment [Autom ated 4548-4) message] The system which generated this result transmitted reference range : 4.0 - 6.0 % NGSP. The reference range was not used to interpret this result as normal/abnormal . JOEY (test code = %A1C (NGSP) JOEY) Interpretation (ADA)4.8-5.6 ? ? Normal or (Non-Diabetic Range)5.7-6.4 ? ? Increased Risk (Pre-Diabetic)>6.5 ?Diabetes Indicated Lab Interpretation Normal (test code = 36676-3) [facility]2019-02-20 16:35:00 Test Item Value Reference Interpretation Comments Range HGB A1C (test code = See_Comment [Autom ated 4548-4) message] The system which generated this result transmitted reference range : 4.0 - 6.0 % NGSP. The reference range was not used to interpret this result as normal/abnormal . JOEY (test code = %A1C (NGSP) JOEY) Interpretation (ADA)4.8-5.6 ? ? Normal or (Non-Diabetic Range)5.7-6.4 ? ? Increased Risk (Pre-Diabetic)>6.5 ?Diabetes Indicated Lab Interpretation Normal (test code = 77226-6) [facility]2019-02-20 16:35:00 Test Item Value Reference Interpretation Comments Range HGB A1C (test code = See_Comment [Autom ated 4548-4) message] The system which generated this result transmitted reference range : 4.0 - 6.0 % NGSP. The reference range was not used to interpret this result as normal/abnormal . JOEY (test code = %A1C (NGSP) JOEY) Interpretation (ADA)4.8-5.6 ? ? Normal or (Non-Diabetic Range)5.7-6.4 ? ? Increased Risk (Pre-Diabetic)>6.5 ?Diabetes Indicated Lab Interpretation Normal (test code = 86826-7) [facility]"
== END 2021-03-20 19:54 | disposition home or self-care (01) ==
LOC: ER 17:33
DX: K56.41 Fecal impaction (principal); I10 Essential (primary) hypertension; Z88.1 Allergy status to other antibiotic agents; Z88.3 Allergy status to other anti-infective agents
CPT/HCPCS: 36415; 80048; 80076; 83690; 85025; 99284

== ENCOUNTER 2021-05-25 13:35 | Emergency (ER) | payer OTHER, MEDICARE ==
--- OUTSIDE RECORDS SUMMARY | 2021-05-25 13:47 | XMS REPORT | Continuity of Care Document ---
:1940 Author Organization [facility] t Address [address] [place] [address] Care Team Providers Name Role Phone Gomez HALL Primary Care Physician LINDEN CAMPO Attending Clinician Unavailable Nurse, Pob Immunization Attending Clinician Unavailable Linden Campo DO Attending Clinician SARAHY GIL Attending Clinician Unavailable SARAHY GIL Attending Clinician Unavailable Alicia GODOY Attending Clinician Unavailable Sarahy Gil MD Attending Clinician 2, Lab Attending Clinician Unavailable Keith ALEGRIA Attending Clinician Unavailable Keith Alegria MD Attending Clinician UNKNOWN Attending Clinician Unavailable Donn VIDEO PHOTOGRAPHER Attending Clinician Unknown Attending Clinician Unavailable Care, 25 - Adult & Pedi Urgent Attending Clinician UnavailAmy Schulz Attending Clinician Unavailable JYOTI Attending Clinician Unavailable Jyoti HALL Attending Clinician Pob, Lab Main Attending Clinician Unavailable Doctor Unassigned, Name Attending Clinician Unavailable Renetta CASPER T Attending Clinician Unavailable Comfort HOSKINS Attending Clinician Unavailable LETA VYAS Attending Clinician Unavailable Alicia Godoy MD Attending Clinician 1, Lab Attending Clinician Unavailable Payers Payer Name Policy Type Policy Number Effective Date Expiration Date [facility] MEDICARE B RAILROAD [id number] 2003 00:00:00 [facility] [id number] 2006 MEDICARE SUPPLEMENT 00:00:00 Advance Directives Directive Decision Effective Termination Comments Source Date Date Healthcare Agents on N/A Univ ersity FileNameRelationshipHealthcare of [place] Agent Medical RelationshipCommunicationWillodean Branch [facility] [phone] (Mobile) Problems Condition Condition Condition Status Onset Resolution Last Treating Co mments Source Name Details Category Date Date Treatment Clinician Date 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 06-03 ity of 00:00: [address] 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 sm in male sm in male 06-15 it y of 00:00: [address] Gynecomast Gynecomast Disease Active U nivers ia ia 3 ity of :: [address] Elevated Elevated Disease Active Unive rs prolactin prolactin 07-18 ity of level level 00:00: [address] Allergies, Adverse Reactions, Alerts Allergy Allergy Status Severity Reaction(s) Onset Inactive Treating Comm ents Source Name Type Date Date Clinician NO KNOWN Drug Active Univers ALLERGIE Class ity of S [facility] [place] [facility] Family History Family Member Diagnosis Comments Start Date Stop Date Source Family member Thyroid [facility] Social History Social Habit Start Date Stop Date Quantity Comments Source History SDOH University o f Alcohol Frequency [place] [facility] History SDOH [facility] o f Alcohol Std [place] [facility] Drinks [facility] History SDOH University o f Alcohol Binge [place] [facility] Exposure to Not sure [facility] SARS-CoV-2 [facility] (event) [place] Alcohol intake 2020-02-02 2020-02-02 0 /d University of 00:00:00 00:00:00 [facility] [place] [facility] Tobacco use and 2020-02-02 2020-02-02 Never used Universit y of exposure 00:00:00 00:00:00 [facility] [place] [facility] Alcohol Comment 2018-03-21 2018-03-21 occaisonal wine [facility] ersity of 00:00:00 00:00:00 [facility] [place] [facility] Sex [birth year] Universit y of 00:00:00 00:00:00 [facility] [place] [facility] Smoking Status Start Date Stop Date Source Never smoker [facility] Medications Ordered Filled Start Stop Current Ordering Indication Dosage Frequency Signature Comments Components Source Medication Medication Date Date Medication? Clinician (SIG) Name Name clonazePAM Yes [id number] .5mg Take 1 U nivers 0.5 mg 6-04 tablet by ity of tablet 00:00: mouth at [place] 00 bedtime. Medical Branch clonazePAM Yes [id number] .5mg Take 1 U nivers 0.5 mg 6-04 tablet by ity of tablet 00:00: mouth at [place] 00 bedtime. Medical Branch clonazePAM Yes [id number] .5mg Take 1 U nivers 0.5 mg [...] (XARELTO) 4-30 mouth. ity of 20 mg 10:40: [place] tablet 28 Medical Branch divalproex Yes [id number] 500mg Take 2 Univers ER 250 mg 4-30 tablets by ity of 24 hr 00:00: mouth at [place] tablet 00 bedtime. Medical Branch mirtazapine Yes [id number] 7.5mg Take 1 Univers 7.5 mg 4-30 105 tablet by ity of tablet 00:00: mouth at [place] 00 bedtime. Medical Branch paliperidon Yes [id number] TAKE 1 Univers e 3 mg 24 4-30 TABLET BY ity o f hour tablet 00:00: MOUTH ONCE [place] 00 DAILY [facility] Branch divalproex Yes [id number] 500mg Take 2 Univers ER 250 mg 4-30 tablets by ity of 24 hr 00:00: mouth at [place] tablet 00 bedtime. Medical Branch mirtazapine Yes [id number] 7.5mg Take 1 Univers 7.5 mg 4-30 105 tablet by ity of tablet 00:00: mouth at [place] 00 bedtime. Medical Branch paliperidon Yes [id number] TAKE 1 Univers e 3 mg 24 4-30 TABLET BY ity o f hour tablet 00:00: MOUTH ONCE [place] 00 DAILY Medical Branch divalproex Yes [id number] 500mg Take 2 Univers ER 250 mg 4-30 tablets by ity of 24 hr 00:00: mouth at [place] tablet 00 bedtime. Medical Branch mirtazapine Yes [id number] 7.5mg Take 1 Univers 7.5 mg 4-30 105 tablet by ity of tablet 00:00: mouth at [place] 00 bedtime. Medical Branch paliperidon Yes [id number] TAKE 1 Univers e 3 mg 24 4-30 TABLET BY ity o f hour tablet 00:00: MOUTH ONCE [place] 00 DAILY Medical Branch divalproex Yes [id number] 500mg Take 2 Univers ER 250 mg 4-30 tablets by ity of 24 hr 00:00: mouth at [place] tablet 00 bedtime. Medical Branch mirtazapine Yes [id number] 7.5mg Take 1 Univers 7.5 mg 4-30 105 tablet by ity of tablet 00:00: mouth at [place] 00 bedtime. Medical Branch paliperidon Yes [id number] TAKE 1 Univers e 3 mg 24 4-30 TABLET BY ity o f hour tablet 00:00: MOUTH ONCE [place] 00 DAILY Medical Branch divalproex Yes [id number] 500mg Take 2 Univers ER 250 mg 4-30 tablets by ity of 24 hr 00:00: mouth at [place] tablet 00 bedtime. Medical Branch mirtazapine Yes [id number] 7.5mg Take 1 Univers 7.5 mg 4-30 105 tablet by ity of tablet 00:00: mouth at [place] 00 bedtime. Medical Branch paliperidon Yes [id number] TAKE 1 Univers e 3 mg 24 4-30 TABLET BY ity o f hour tablet 00:00: MOUTH ONCE [place] 00 DAILY Medical Branch divalproex Yes [id number] 500mg Take 2 Univers ER 250 mg 4-30 tablets by ity of 24 hr 00:00: mouth at [place] tablet 00 bedtime. Medical Branch mirtazapine Yes [id number] 7.5mg Take 1 Univers 7.5 mg 4-30 105 tablet by ity of tablet 00:00: mouth at [place] 00 bedtime. Medical Branch paliperidon Yes [id number] TAKE 1 Univers e 3 mg 24 4-30 TABLET BY ity o f hour tablet 00:00: MOUTH ONCE [place] 00 DAILY Medical Branch divalproex 2020- No [id number] 500mg Take 2 Univers ER 250 mg 4-30 04-30 tablets by ity of 24 hr 00:00: 00:00 mouth at [place] tablet 00 :00 bedtime. Medical Branch divalproex 2020- No [id number] 500mg Take 2 Univers ER 250 mg 4-30 04-30 tablets by ity of 24 hr 00:00: 00:00 mouth at [place] tablet 00 :00 bedtime. Medical Branch divalproex 2020- No [id number] 500mg Take 2 Univers ER 250 mg 4-30 04-30 tablets by ity of 24 hr 00:00: 00:00 mouth at [place] tablet 00 :00 bedtime. Medical Branch divalproex Yes [id number] 500mg Take 1 Univers ER 500 mg 4-08 tablet by ity o f 24 hr 00:00: mouth [place] tablet 00 every 24 Medical (twenty-fo Branch ur) hours. divalproex Yes [id number] 500mg Take 1 Univers ER 500 mg 4-08 tablet by ity o f 24 hr 00:00: mouth [place] tablet 00 every 24 Medical (twenty-fo Branch ur) hours. divalproex 2020- No [id number] 500mg Take 1 Univers ER 500 mg 4-08 04-30 tablet by ity of 24 hr 00:00: 00:00 mouth [place] tablet 00 :00 every 24 Medical (twenty-fo Branch ur) hours. divalproex 2020- No [id number] 500mg Take 1 Univers ER 500 mg 4-08 04-30 tablet by ity of 24 hr 00:00: 00:00 mouth [place] tablet 00 :00 every 24 Medical (twenty-fo Branch ur) hours. divalproex 2020-0 2020- No [id number] 500mg Take 1 Univers ER 500 mg 4-08 04-30 tablet by ity of 24 hr 00:00: 00:00 mouth [place] tablet 00 :00 every 24 Medical (twenty-fo Branch ur) hours. clonazePAM 2020-0 Yes [id number] .5mg Take 1 U nivers 0.5 mg 3-04 tablet by ity of tablet 00:00: mouth at [place] [address] bedtime. Medical Branch clonazePAM 2020-0 Yes [id number] .5mg Take 1 U nivers 0.5 mg 3-04 tablet by ity of tablet 00:00: mouth at [place] [address] bedtime. Medical Branch clonazePAM 2020-0 Yes [id number] .5mg Take 1 U nivers 0.5 mg 3-04 tablet by ity of tablet 00:00: mouth at [place] [address] bedtime. Medical Branch clonazePAM 2020-0 Yes [id number] .5mg Take 1 U nivers 0.5 mg 3-04 tablet by ity of tablet 00:00: mouth at [place] [address] bedtime. Medical Branch clonazePAM 2020-0 Yes [id number] .5mg Take 1 U nivers 0.5 mg 3-04 tablet by ity of tablet 00:00: mouth at [place] [address] bedtime. Medical Branch clonazePAM 2020-0 Yes [id number] .5mg Take 1 U nivers 0.5 mg 3-04 tablet by ity of tablet 00:00: mouth at [place] [address] bedtime. Medical Branch clonazePAM 2020-0 Yes [id number] .5mg Take 1 U nivers 0.5 mg 3-04 tablet by ity of tablet 00:00: mouth at [place] [address] bedtime. Medical Branch clonazePAM 2020-0 Yes [id number] .5mg Take 1 U nivers 0.5 mg 3-04 tablet by ity of tablet 00:00: mouth at [place] [address] bedtime. Medical Branch clonazePAM 2020-0 Yes [id number] .5mg Take 1 U nivers 0.5 mg 3-04 tablet by ity of tablet 00:00: mouth at [place] 00 bedtime. Medical Branch clonazePAM Yes [id number] .5mg Take 1 U nivers 0.5 mg 3-04 tablet by ity of tablet 00:00: mouth at [place] 00 bedtime. Medical Branch clonazePAM 2020- No [id number] .5mg Take 1 Univers 0.5 mg 3-04 06-04 tablet by ity of tablet 00:00: 00:00 mouth at [place] 00 :00 bedtime. Medical Branch clonazePAM 2020- No [id number] .5mg Take 1 Univers 0.5 mg 3-04 06-04 tablet by ity of tablet 00:00: 00:00 mouth at [place] 00 :00 bedtime. Medical Branch paliperidon Yes [id number] TAKE 1 Univers e 3 mg 24 2-26 TABLET BY ity o f hour tablet 00:00: MOUTH ONCE DAILY Medical Branch paliperidon Yes [id number] TAKE 1 Univers e 3 mg 24 2-26 TABLET BY ity o f hour tablet 00:00: MOUTH ONCE DAILY Medical Branch paliperidon Yes [id number] TAKE 1 Univers e 3 mg 24 2-26 TABLET BY ity o f hour tablet 00:00: MOUTH ONCE DAILY Medical Branch paliperidon Yes [id number] TAKE 1 Univers e 3 mg 24 2-26 TABLET BY ity o f hour tablet 00:00: MOUTH ONCE DAILY Medical Branch paliperidon Yes [id number] TAKE 1 Univers e 3 mg 24 2-26 TABLET BY ity o f hour tablet 00:00: MOUTH ONCE DAILY Medical Branch paliperidon Yes [id number] TAKE 1 Univers e 3 mg 24 2-26 TABLET BY ity o f hour tablet 00:00: MOUTH ONCE DAILY Medical Branch paliperidon Yes [id number] TAKE 1 Univers e 3 mg 24 2-26 TABLET BY ity o f hour tablet 00:00: MOUTH ONCE DAILY Medical Branch paliperidon Yes [id number] TAKE 1 Univers e 3 mg 24 2-26 TABLET BY ity o f hour tablet 00:00: MOUTH ONCE DAILY Medical Branch paliperidon 2020- No [id number] TAKE 1 Univers e 3 mg 24 2-26 04-30 TABLET BY ity of hour tablet 00:00: 00:00 MOUTH ONCE [place] 00 :00 DAILY Medical Branch palannaidon 2020-0 2020- No [id number] TAKE 1 Univers e 3 mg 24 2-26 04-30 TABLET BY ity of hour tablet 00:00: 00:00 MOUTH ONCE [place] 00 :00 DAILY Medical Branch paliperidon 2020-0 2020- No [id number] TAKE 1 Univers e 3 mg 24 2-26 -30 TABLET BY ity of hour tablet 00:00: 00:00 MOUTH ONCE [place] 00 :00 DAILY Medical Branch XARELTO 2020-0 Yes 10mg Take [...] 00:00: daily. Medical Branch paliperidon 2020-0 Yes [id number] TAKE 1 Univers e 3 mg 24 1-22 TABLET BY ity o f hour tablet 00:00: MOUTH ONCE [place] 00 DAILY Medical Branch mirtazapine 2020-0 Yes [id number] 7.5mg Take 1 Univers 7.5 mg 1-22 105 tablet by ity of tablet 00:00: mouth at [place] [address] bedtime. Medical Branch mirtazapine 2020-0 Yes [id number] 7.5mg Take 1 Univers 7.5 mg 1-22 105 tablet by ity of tablet 00:00: mouth at [place] [address] bedtime. Medical Branch mirtazapine 2020-0 Yes [id number] 7.5mg Take 1 Univers 7.5 mg 1-22 105 tablet by ity of tablet 00:00: mouth at [place] [address] bedtime. Medical Branch mirtazapine 2020-0 Yes [id number] 7.5mg Take 1 Univers 7.5 mg 1-22 105 tablet by ity of tablet 00:00: mouth at [place] [address] bedtime. Medical Branch mirtazapine 2020-0 Yes [id number] 7.5mg Take 1 Univers 7.5 mg 1-22 105 tablet by ity of tablet 00:00: mouth at [place] [address] bedtime. Medical Branch mirtazapine 2020-0 Yes [id number] 7.5mg Take 1 Univers 7.5 mg 1-22 105 tablet by ity of tablet 00:00: mouth at [place] [address] bedtime. Medical Branch mirtazapine 2020-0 Yes [id number] 7.5mg Take 1 Univers 7.5 mg 1-22 105 tablet by ity of tablet 00:00: mouth at [place] [address] bedtime. Medical Branch mirtazapine 2020-0 Yes [id number] 7.5mg Take 1 Univers 7.5 mg 1-22 105 tablet by ity of tablet 00:00: mouth at [place] [address] bedtime. Medical Branch mirtazapine 2020-0 Yes [id number] 7.5mg Take 1 Univers 7.5 mg 1-22 105 tablet by ity of tablet 00:00: mouth at [place] [address] bedtime. Medical Branch propranoloL 2020- No [id number] 10mg Take 1 Univers 10 mg 1-22 07-22 tablet by ity of tablet 00:00: 04:59 mouth 2 [place] 00 :00 (two) Medical times Branch daily as needed (tremor) for up to 180 days. propranoloL 2020- No [id number] 10mg Take 1 Univers 10 mg 1-22 07-22 tablet by ity of tablet 00:00: 04:59 mouth 2 [place] 00 :00 (two) Medical times Branch daily as needed (tremor) for up to 180 days. propranoloL 2020- No [id number] 10mg Take 1 Univers 10 mg 1-22 07-22 tablet by ity of tablet 00:00: 04:59 mouth 2 [place] 00 :00 (two) Medical times Branch daily as needed (tremor) for up to 180 days. propranoloL 2020- No [id number] 10mg Take 1 Univers 10 mg 1-22 07-22 tablet by ity of tablet 00:00: 04:59 mouth 2 [place] 00 :00 (two) Medical times Branch daily as needed (tremor) for up to 180 days. propranoloL 2020- No [id number] 10mg Take 1 Univers 10 mg 1-22 07-22 tablet by ity of tablet 00:00: 04:59 mouth 2 [place] 00 :00 (two) Medical times Branch daily as needed (tremor) for up to 180 days. propranoloL 2020- No [id number] 10mg Take 1 Univers 10 mg 1-22 07-22 tablet by ity of tablet 00:00: 04:59 mouth 2 [place] 00 :00 (two) Medical times Branch daily as needed (tremor) for up to 180 days. propranoloL 2020- No [id number] 10mg Take 1 Univers 10 mg 1-22 07-22 tablet by ity of tablet 00:00: 04:59 mouth 2 [place] 00 :00 (two) Medical times Branch daily as needed (tremor) for up to 180 days. propranoloL 2020- No [id number] 10mg Take 1 Univers 10 mg 1-22 07-22 tablet by ity of tablet 00:00: 04:59 mouth 2 [place] 00 :00 (two) Medical times Branch daily as needed (tremor) for up to 180 days. propranoloL 2020- No [id number] 10mg Take 1 Univers 10 mg 1-22 07-22 tablet by ity of tablet 00:00: 04:59 mouth 2 [place] 00 :00 (two) Medical times Branch daily as needed (tremor) for up to 180 days. propranoloL 2020- No [id number] 10mg Take 1 Univers 10 mg 1-22 07-22 tablet by ity of tablet 00:00: 04:59 mouth 2 [place] 00 :00 (two) Medical times Branch daily as needed (tremor) for up to 180 days. propranoloL 2020- No [id number] 10mg Take 1 Univers 10 mg 1-22 07-22 tablet by ity of tablet 00:00: 04:59 mouth 2 [place] 00 :00 (two) Medical times Branch daily as needed (tremor) for up to 180 days. propranoloL 2020- No [id number] 10mg Take 1 Univers 10 mg 1-22 07-22 tablet by ity of tablet 00:00: 04:59 mouth 2 [place] 00 :00 (two) Medical times Branch daily as needed (tremor) for up to 180 days. propranoloL 2020- No [id number] 10mg Take 1 Univers 10 mg 1-22 07-22 tablet by ity of tablet 00:00: 04:59 mouth 2 [place] 00 :00 (two) Medical times Branch daily as needed (tremor) for up to 180 days. propranoloL 2020- No [id number] 10mg Take 1 Univers 10 mg 1-22 07-22 tablet by ity of tablet 00:00: 04:59 mouth 2 [place] 00 :00 (two) Medical times Branch daily as needed (tremor) for up to 180 days. mirtazapine 2020- No [id number] 7.5mg Take 1 Univers 7.5 mg 1-22 04-30 105 tablet by ity of tablet 00:00: 00:00 mouth at [place] 00 :00 bedtime. Medical Branch mirtazapine 2020- No [id number] 7.5mg Take 1 Univers 7.5 mg 1-22 04-30 105 tablet by ity of tablet 00:00: 00:00 mouth at [place] 00 :00 bedtime. Medical Branch mirtazapine 2020- No [id number] 7.5mg Take 1 Univers 7.5 mg 1-22 04-30 105 tablet by ity of tablet 00:00: 00:00 mouth at [place] 00 :00 bedtime. Medical Branch divalproex 2019- Yes [id number] 500mg Take 2 Univers ER 250 mg 2-26 tablets by ity of 24 hr 00:00: mouth at [place] tablet 00 bedtime. Medical Branch divalproex 2019-05- No [id number] 500mg Take 2 Univers ER 250 mg 2-26 01-06 tablets by ity of 24 hr 00:00: 05:59 mouth at [place] tablet 00 :00 bedtime Medical for . divalproex 2019-05 Yes [id number] 500mg Take 2 Univers ER 250 mg 1-13 tablets by ity of 24 hr 00:00: mouth at [place] tablet 00 bedtime. Medical Branch divalproex 2019-05 Yes [id number] 500mg Take 2 Univers ER 250 mg 1-13 tablets by ity of 24 hr 00:00: mouth at [place] tablet 00 bedtime. Medical Branch divalproex 2019-05 Yes [id number] 500mg Take 2 Univers ER 250 mg 1-13 tablets by ity of 24 hr 00:00: mouth at [place] tablet 00 bedtime. Medical Branch divalproex 2019-05 Yes [id number] 500mg Take 2 Univers ER 250 mg 1-13 tablets by ity of 24 hr 00:00: mouth at [place] tablet 00 bedtime. Medical Branch clonazePAM 2019- Yes [id number] .5mg Take 1 U nivers 0.5 mg 1-03 tablet by ity of tablet 00:00: mouth at [place] 00 bedtime. Medical Branch mirtazapine 2019- Yes [id number] 7.5mg Take 1 Univers 7.5 mg 1-03 105 tablet by ity of tablet 00:00: mouth at [place] 00 bedtime. Medical Branch paliperidon 2019- Yes [id number] TAKE 1 Univers e 3 mg 24 1-03 TABLET BY ity o f hour tablet 00:00: MOUTH ONCE [place] 00 DAILY Medical Branch clonazePAM 2019- Yes [id number] .5mg Take 1 U nivers 0.5 mg 1-03 tablet by ity of tablet 00:00: mouth at [place] 00 bedtime. Medical Branch mirtazapine 2019- Yes [id number] 7.5mg Take 1 Univers 7.5 mg 1-03 105 tablet by ity of tablet 00:00: mouth at [place] 00 bedtime. Medical Branch paliperidon 2020-1 Yes [id number] TAKE 1 Univers e 3 mg 24 1-03 TABLET BY ity o f hour tablet 00:00: MOUTH ONCE [place] 00 DAILY Medical Branch clonazePAM 2020-1 Yes [id number] .5mg Take 1 U nivers 0.5 mg 1-03 tablet by ity of tablet 00:00: mouth at [place] 00 bedtime. Medical Branch mirtazapine 2019- Yes [id number] 7.5mg Take 1 Univers 7.5 mg 1-03 105 tablet by ity of tablet 00:00: mouth at [place] 00 bedtime. Medical Branch paliperidon 2019- Yes [id number] TAKE 1 Univers e 3 mg 24 1-03 TABLET BY ity o f hour tablet 00:00: MOUTH ONCE [place] 00 DAILY Medical Branch clonazePAM 2019- Yes [id number] .5mg Take 1 U nivers 0.5 mg 1-03 tablet by ity of tablet 00:00: mouth at [place] 00 bedtime. Medical Branch clonazePAM 2019- Yes [id number] .5mg Take 1 U nivers 0.5 mg 1-03 tablet by ity of tablet 00:00: mouth at [place] 00 bedtime. Medical Branch clonazePAM 2019- Yes [id number] .5mg Take 1 U nivers 0.5 mg 1-03 tablet by ity of tablet 00:00: mouth at [place] 00 bedtime. Medical Branch mirtazapine 2020- Yes [id number] 7.5mg Take 1 Univers 7.5 mg 1-03 105 tablet by ity of tablet 00:00: mouth at [place] 00 bedtime. Medical Branch clonazePAM 2019- Yes [id number] .5mg Take 1 U nivers 0.5 mg 1-03 tablet by ity of tablet 00:00: mouth at [place] 00 bedtime. Medical Branch mirtazapine 2019- Yes [id number] 7.5mg Take 1 Univers 7.5 mg 1-03 105 tablet by ity of tablet 00:00: mouth at [place] 00 bedtime. Medical Branch paliperidon 2019- Yes [id number] TAKE 1 Univers e 3 mg 24 1-03 TABLET BY ity o f hour tablet 00:00: MOUTH ONCE [place] 00 DAILY Medical Branch clonazePAM 2020-1 Yes [id number] .5mg Take 1 U nivers 0.5 mg 1-03 tablet by ity of tablet 00:00: mouth at [place] 00 bedtime. Medical Branch mirtazapine 2020-1 Yes [id number] 7.5mg Take 1 Univers 7.5 mg 1-03 105 tablet by ity of tablet 00:00: mouth at [place] 00 bedtime. Medical Branch paliperidon 2020-1 Yes [id number] TAKE 1 Univers e 3 mg 24 1-03 TABLET BY ity o f hour tablet 00:00: MOUTH ONCE [place] 00 DAILY [facility] Branch clonazePAM 2020- Yes [id number] .5mg Take 1 U nivers 0.5 mg 1-03 tablet by ity of tablet 00:00: mouth at [place] 00 bedtime. [facility] Branch mirtazapine 2020- Yes [id number] 7.5mg Take 1 Univers 7.5 mg 1-03 105 tablet by ity of tablet 00:00: mouth at [place] 00 bedtime. [facility] Branch paliperidon 2020-1 Yes [id number] TAKE 1 Univers e 3 mg 24 1-03 TABLET BY ity o f hour tablet 00:00: MOUTH ONCE [place] 00 DAILY Medical Branch clonazePAM 2020-1 Yes [id number] .5mg Take 1 U nivers 0.5 mg 1-03 tablet by ity of tablet 00:00: mouth at [place] 00 bedtime. Medical Branch mirtazapine 2020- Yes [id number] 7.5mg Take 1 Univers 7.5 mg 1-03 105 tablet by ity of tablet 00:00: mouth at [place] 00 bedtime. [facility] Branch paliperidon 2020-1 Yes [id number] TAKE 1 Univers e 3 mg 24 1-03 TABLET BY ity o f hour tablet 00:00: MOUTH ONCE [place] 00 DAILY Medical Branch clonazePAM 2020-1 Yes [id number] .5mg Take 1 U nivers 0.5 mg 1-03 tablet by ity of tablet 00:00: mouth at [place] 00 bedtime. Medical Branch mirtazapine 2020- Yes [id number] 7.5mg Take 1 Univers 7.5 mg 1-03 105 tablet by ity of tablet 00:00: mouth at [place] 00 bedtime. [facility] Branch paliperidon 2020-1 Yes [id number] TAKE 1 Univers e 3 mg 24 1-03 TABLET BY ity o f hour tablet 00:00: MOUTH ONCE [place] 00 DAILY Medical Branch clonazePAM 2019- Yes [id number] .5mg Take 1 U nivers 0.5 mg 1-03 tablet by ity of tablet 00:00: mouth at [place] bedtime. Medical Branch mirtazapine 2019- Yes [id number] 7.5mg Take 1 Univers 7.5 mg 1-03 105 tablet by ity of tablet 00:00: mouth at [place] bedtime. [facility] Branch paliperidon 2019- Yes [id number] TAKE 1 Univers e 3 mg 24 1-03 TABLET BY ity o f hour tablet 00:00: MOUTH ONCE 00 DAILY [facility] Branch mirtazapine 2019- Yes [id number] 7.5mg Take 1 [facility] 7.5 mg 0-30 105 tablet by ity of tablet 00:00: mouth at [place] bedtime. Medical Branch mirtazapine 2019-05 Yes [id number] 7.5mg Take 1 Univers 7.5 mg 0-02 105 tablet by ity of tablet 00:00: mouth at [place] bedtime. Medical Branch mirtazapine 2019-05 Yes [id number] 7.5mg Take 1 [facility] 7.5 mg 0-02 105 tablet by ity of tablet 00:00: mouth at [place] bedtime. Medical Branch propranolol 2020-0 Yes [id number] 10mg Take 1 Univers 10 mg 8-03 tablet by ity of tablet 00:00: mouth 2 (two) Medical times Branch daily as needed (tremor). propranolol 2020-0 Yes [id number] 10mg Take 1 Univers 10 mg 8-03 tablet by ity of tablet 00:00: mouth 2 (two) Medical times Branch daily as needed (tremor). propranolol 2020-0 Yes [id number] 10mg Take 1 [facility] 10 mg 8-03 tablet by ity of tablet 00:00: mouth 2 (two) Medical times Branch daily as needed (tremor). propranolol 2020-0 Yes [id number] 10mg Take 1 [facility] 10 mg 8-03 tablet by ity of tablet 00:00: mouth 2 (two) Medical times Branch daily as needed (tremor). propranolol 2020-0 Yes [id number] 10mg Take 1 [facility] 10 mg 8-03 tablet by ity of tablet 00:00: mouth (two) Medical times Branch daily as needed (tremor). propranolol 2020-0 Yes [id number] 10mg Take 1 [facility] 10 mg 8-03 tablet by ity of tablet 00:00: mouth (two) Medical times Branch daily as needed (tremor). propranolol 2020-0 Yes [id number] 10mg Take 1 [facility] 10 mg 8-03 tablet by ity of tablet 00:00: mouth (two) Medical times Branch daily as needed (tremor). propranolol 2020-0 Yes [id number] 10mg Take 1 [facility] 10 mg 8-03 tablet by ity of tablet 00:00: mouth (two) Medical times Branch daily as needed (tremor). propranolol 2020-0 Yes [id number] 10mg Take 1 [facility] 10 mg 8-03 tablet by ity of tablet 00:00: mouth (two) Medical times Branch daily as needed (tremor). propranolol 2020-0 Yes [id number] 10mg Take 1 [facility] 10 mg 8-03 tablet by ity of tablet 00:00: mouth (two) Medical times Branch daily as needed (tremor). propranolol 2020-0 Yes [id number] 10mg Take 1 [facility] 10 mg 8-03 tablet by ity of tablet 00:00: mouth (two) Medical times Branch daily as needed (tremor). propranolol 2020-0 Yes [id number] 10mg Take 1 [facility] 10 mg 8-03 tablet by ity of tablet 00:00: mouth (two) Medical times Branch daily as needed (tremor). propranolol 2020-0 Yes [id number] 10mg Take 1 [facility] 10 mg [facility]-03 tablet by [facility] tablet 00:00: mouth (two) Medical times [facility] daily as needed (tremor). propranolol 2020-0 Yes [id number] 10mg Take 1 [facility] 10 mg 8-03 tablet by [facility] tablet 00:00: mouth (two) Medical times [facility] daily as needed (tremor). propranolol 2020-0 Yes [id number] 10mg Take 1 [facility] 10 mg 8-03 tablet by [facility] tablet 00:00: mouth (two) Medical times [facility] daily as needed (tremor). propranolol 2020-0 Yes [id number] 10mg Take 1 [facility] 10 mg 8-03 tablet by [facility] tablet 00:00: mouth (two) Medical times [facility] daily as needed (tremor). propranolol 2020-0 Yes [id number] 10mg Take 1 [facility] 10 mg 8-03 tablet by [facility] tablet 00:00: mouth (two) Medical times [facility] daily as needed (tremor). propranolol 2020-0 Yes [id number] 10mg Take 1 [facility] 10 mg 8-03 tablet by [facility] tablet 00:00: mouth (two) Medical times [facility] daily as needed (tremor). propranolol 2020-0 Yes [id number] 10mg Take 1 [facility] 10 mg 8-03 tablet by [facility] tablet 00:00: mouth (two) Medical times [facility] daily as needed (tremor). propranolol 2020-0 Yes [id number] 10mg Take 1 [facility] 10 mg 8-03 tablet by [facility] tablet 00:00: mouth (two) Medical times [facility] daily as needed (tremor). propranolol 2020-0 Yes [id number] 10mg Take 1 [facility] 10 mg 8-03 tablet by [facility] tablet 00:00: mouth (two) Medical times [facility] daily as needed (tremor). propranolol 2020-0 Yes [id number] 10mg Take 1 [facility] 10 mg 8-03 tablet by [facility] tablet 00:00: mouth (two) Medical times [facility] daily as needed (tremor). propranolol 2020-0 Yes [id number] 10mg Take 1 [facility] 10 mg 8-03 tablet by [facility] tablet 00:00: mouth (two) Medical times [facility] daily as needed (tremor). propranolol 2020-0 Yes [id number] 10mg Take 1 [facility] 10 mg 8-03 tablet by [facility] tablet 00:00: mouth (two) Medical times [facility] daily as needed (tremor). propranolol 2020-0 Yes [id number] 10mg Take 1 [facility] 10 mg 8-03 tablet by [facility] tablet 00:00: mouth (two) Medical times [facility] daily as needed (tremor). propranolol 2020-0 Yes [id number] 10mg Take 1 [facility] 10 mg 8-03 tablet by [facility] tablet 00:00: mouth (two) Medical times [facility] daily as needed (tremor). propranolol 2020-0 Yes [id number] 10mg Take 1 [facility] 10 mg 8-03 tablet by [facility] tablet 00:00: mouth (two) Medical times [facility] daily as needed (tremor). propranolol 2020-0 Yes [id number] 10mg Take 1 [facility] 10 mg 8-03 tablet by [facility] tablet 00:00: mouth 2 (two) Medical times [facility] daily as needed (tremor). propranolol 2020-0 Yes [id number] 10mg Take 1 [facility] 10 mg 8-03 tablet by [facility] tablet 00:00: mouth 2 (two) Medical times [facility] daily as needed (tremor). propranolol 2020-0 Yes [id number] 10mg Take 1 [facility] 10 mg 8-03 tablet by [facility] tablet 00:00: mouth 2 (two) Medical times [facility] daily as needed (tremor). propranolol 2020-0 Yes [id number] 10mg Take 1 [facility] 10 mg 8-03 tablet by [facility] tablet 00:00: mouth 2 (two) Medical times [facility] daily as needed (tremor). divalproex 2020-0 Yes [id number] 500mg Take 2 [facility] 250 mg 7-14 tablets by [facility] 24 hr 00:00: mouth at [place] tablet 00 bedtime. [facility] divalproex 2020-0 Yes [id number] 500mg Take 2 [facility] 250 mg 7-14 tablets by [facility] 24 hr 00:00: mouth at [place] tablet 00 bedtime. [facility] divalproex 2020-0 Yes [id number] 500mg Take 2 [facility] 250 mg 7-14 tablets by [facility] 24 hr 00:00: mouth at [place] tablet 00 bedtime. [facility] divalproex 2020-0 Yes [id number] 500mg Take 2 [facility] 250 mg 7-14 tablets by [facility] 24 hr 00:00: mouth at [place] tablet 00 bedtime. [facility] divalproex 2020-0 Yes [id number] 500mg Take 2 [facility] 250 mg 7-14 tablets by [facility] 24 hr 00:00: mouth at [place] tablet 00 bedtime. [facility] divalproex 2020-0 Yes [id number] 500mg Take 2 [facility] 250 mg 7-14 tablets by [facility] 24 hr 00:00: mouth at [place] tablet 00 bedtime. [facility] divalproex 2020-0 Yes [id number] 500mg Take 2 [facility] 250 mg 7-14 tablets by [facility] 24 hr 00:00: mouth at [place] tablet 00 bedtime. [facility] divalproex 2020-0 Yes [id number] 500mg Take 2 [facility] 250 mg 7-14 tablets by [facility] 24 hr 00:00: mouth at [place] tablet 00 bedtime. [facility] divalproex 2020-0 Yes [id number] 500mg Take 2 [facility] 250 mg 7-14 tablets by [facility] 24 hr 00:00: mouth at [place] tablet 00 bedtime. [facility] divalproex 2020-0 Yes [id number] 500mg Take 2 [facility] 250 mg 7-14 tablets by [facility] 24 hr 00:00: mouth at [place] tablet 00 bedtime. [facility] divalproex 2020-0 Yes [id number] 500mg Take 2 [facility] 250 mg 7-14 tablets by [facility] 24 hr 00:00: mouth at [place] tablet 00 bedtime. [facility] divalproex 2020-0 Yes [id number] 500mg Take 2 [facility] 250 mg 7-14 tablets by [facility] 24 hr 00:00: mouth at [place] tablet 00 bedtime. [facility] divalproex 2020-0 Yes [id number] 500mg Take 2 [facility] 250 mg 7-14 tablets by [facility] 24 hr 00:00: mouth at [place] tablet 00 bedtime. [facility] divalproex 2020-0 Yes [id number] 500mg Take 2 [facility] 250 mg 7-14 tablets by [facility] 24 hr 00:00: mouth at [place] tablet 00 bedtime. [facility] divalproex 2020-0 Yes [id number] 500mg Take 2 [facility] 250 mg 7-14 tablets by [facility] 24 hr 00:00: mouth at [place] tablet 00 bedtime. [facility] divalproex 2020-0 Yes [id number] 500mg Take 2 [facility] 250 mg 7-14 tablets by [facility] 24 hr 00:00: mouth at [place] tablet 00 bedtime. [facility] divalproex 2020-0 Yes [id number] 500mg Take 2 [facility] 250 mg 7-14 tablets by [facility] 24 hr 00:00: mouth at [place] tablet 00 bedtime. [facility] divalproex 2020-0 Yes [id number] 500mg Take 2 [facility] 250 mg 7-14 tablets by [facility] 24 hr 00:00: mouth at [place] tablet 00 bedtime. [facility] divalproex 2020-0 Yes [id number] 500mg Take 2 [facility] 250 mg 7-14 tablets by [facility] 24 hr 00:00: mouth at [place] tablet 00 bedtime. [facility] divalproex 2020-0 Yes [id number] 500mg Take 2 [facility] 250 mg 7-14 tablets by [facility] 24 hr 00:00: mouth at [place] tablet 00 bedtime. [facility] divalproex 2020-0 Yes [id number] 500mg Take 2 [facility] 250 mg 7-14 tablets by [facility] 24 hr 00:00: mouth at [place] tablet 00 bedtime. [facility] divalproex 2020-0 Yes [id number] 500mg Take 2 [facility] 250 mg 7-14 tablets by [facility] 24 hr 00:00: mouth at [place] tablet 00 bedtime. [facility] divalproex 2020-0 Yes [id number] 500mg Take 2 [facility] 250 mg 7-14 tablets by [facility] 24 hr 00:00: mouth at [place] tablet 00 bedtime. [facility] divalproex 2020-0 Yes [id number] 500mg Take 2 [facility] 250 mg 7-14 tablets by [facility] 24 hr 00:00: mouth at [place] tablet 00 bedtime. [facility] divalproex 2020-0 Yes [id number] 500mg Take 2 [facility] 250 mg 7-14 tablets by [facility] 24 hr 00:00: mouth at [place] tablet 00 bedtime. [facility] divalproex 2020-0 Yes [id number] 500mg Take 2 [facility] 250 mg 7-14 tablets by [facility] 24 hr 00:00: mouth at [place] tablet 00 bedtime. [facility] divalproex 2020-0 Yes [id number] 500mg Take 2 [facility] 250 mg 7-14 tablets by [facility] 24 hr 00:00: mouth at [place] tablet 00 bedtime. [facility] divalproex 2020-0 Yes [id number] 500mg Take 2 [facility] 250 mg 7-14 tablets by [facility] 24 hr 00:00: mouth at [place] tablet 00 bedtime. [facility] mirtazapine 2020-0 Yes [id number] 7.5mg Take 1 [facility] 7.5 mg 7-10 105 tablet by [facility] tablet 00:00: mouth at [place] 00 bedtime. [facility] mirtazapine 2020-0 Yes [id number] 7.5mg Take 1 [facility] 7.5 mg 7-10 105 tablet by [facility] tablet 00:00: mouth at [place] 00 bedtime. [facility] mirtazapine 2020-0 Yes [id number] 7.5mg Take 1 [facility] 7.5 mg 7-10 105 tablet by [facility] tablet 00:00: mouth at [place] [address] bedtime. [facility] mirtazapine 2020-0 Yes [id number] 7.5mg Take 1 [facility] 7.5 mg 7-10 105 tablet by [facility] tablet 00:00: mouth at [place] bedtime. [facility] mirtazapine 2020-0 Yes [id number] 7.5mg Take 1 [facility] 7.5 mg 7-10 105 tablet by [facility] tablet 00:00: mouth at [place] bedtime. [facility] mirtazapine 2020-0 Yes [id number] 7.5mg Take 1 [facility] 7.5 mg 7-10 105 tablet by [facility] tablet 00:00: mouth at [place] bedtime. [facility] mirtazapine 2020-0 Yes [id number] 7.5mg Take 1 [facility] 7.5 mg 7-10 105 tablet by [facility] tablet 00:00: mouth at [place] [address] bedtime. [facility] mirtazapine 2020-0 Yes [id number] 7.5mg Take 1 [facility] 7.5 mg 7-10 105 tablet by [facility] tablet 00:00: mouth at [place] [address] bedtime. [facility] mirtazapine 2020-0 Yes [id number] 7.5mg Take 1 [facility] 7.5 mg 7-10 105 tablet by [facility] tablet 00:00: mouth at [place] [address] bedtime. [facility] mirtazapine 2020-0 Yes [id number] 7.5mg Take 1 [facility] 7.5 mg 7-10 105 tablet by [facility] tablet 00:00: mouth at [place] [address] bedtime. [facility] mirtazapine 2020-0 Yes [id number] 7.5mg Take 1 [facility] 7.5 mg 7-10 105 tablet by [facility] tablet 00:00: mouth at [place] [address] bedtime. [facility] mirtazapine 2020-0 Yes [id number] 7.5mg Take 1 [facility] 7.5 mg 7-10 105 tablet by [facility] tablet 00:00: mouth at [place] [address] bedtime. [facility] mirtazapine 2020-0 Yes [id number] 7.5mg Take 1 [facility] 7.5 mg 7-10 105 tablet by [facility] tablet 00:00: mouth at [place] [address] bedtime. [facility] mirtazapine 2020-0 Yes [id number] 7.5mg Take 1 [facility] 7.5 mg 7-10 105 tablet by [facility] tablet 00:00: mouth at [place] [address] bedtime. [facility] mirtazapine 2020-0 Yes [id number] 7.5mg Take 1 [facility] 7.5 mg 7-10 105 tablet by [facility] tablet 00:00: mouth at [place] [address] bedtime. [facility] mirtazapine 2020-0 Yes [id number] 7.5mg Take 1 [facility] 7.5 mg 7-10 105 tablet by [facility] tablet 00:00: mouth at [place] [address] bedtime. [facility] mirtazapine 2020-0 Yes [id number] 7.5mg Take 1 [facility] 7.5 mg 7-10 105 tablet by [facility] tablet 00:00: mouth at [place] [address] bedtime. [facility] mirtazapine 2020-0 Yes [id number] 7.5mg Take 1 [facility] 7.5 mg 7-10 105 tablet by [facility] tablet 00:00: mouth at [place] [address] bedtime. [facility] mirtazapine 2020-0 Yes [id number] 7.5mg Take 1 [facility] 7.5 mg 7-10 105 tablet by [facility] tablet 00:00: mouth at [place] [address] bedtime. [facility] mirtazapine 2020-0 Yes [id number] 7.5mg Take 1 [facility] 7.5 mg 7-10 105 tablet by [facility] tablet 00:00: mouth at [place] [address] bedtime. [facility] mirtazapine 2020-0 Yes [id number] 7.5mg Take 1 [facility] 7.5 mg 7-10 105 tablet by [facility] tablet 00:00: mouth at [place] [address] bedtime. [facility] mirtazapine 2020-0 Yes [id number] 7.5mg Take 1 [facility] 7.5 mg 7-10 105 tablet by [facility] tablet 00:00: mouth at [place] [address] bedtime. [facility] paliperidon 2020-0 Yes [id number] TAKE 1 [facility] e 3 mg 24 4-24 TABLET BY [facility] f hour tablet 00:00: MOUTH ONCE [place] DAILY [facility] paliperidon 2020-0 Yes [id number] TAKE 1 [facility] e 3 mg 24 4-24 TABLET BY [facility] f hour tablet 00:00: MOUTH ONCE [place] DAILY [facility] paliperidon 2020-0 Yes [id number] TAKE 1 [facility] e 3 mg 24 4-24 TABLET BY [facility] f hour tablet 00:00: MOUTH ONCE DAILY [facility] paliperidon 2020-0 Yes [id number] TAKE 1 [facility] e 3 mg 24 4-24 TABLET BY [facility] o f hour tablet 00:00: MOUTH ONCE DAILY [facility] paliperidon 2020-0 Yes [id number] TAKE 1 [facility] e 3 mg 24 4-24 TABLET BY [facility] o f hour tablet 00:00: MOUTH ONCE DAILY [facility] paliperidon 2020-0 Yes [id number] TAKE 1 [facility] e 3 mg 24 4-24 TABLET BY [facility] f hour tablet 00:00: MOUTH ONCE DAILY [facility] paliperidon 2020-0 Yes [id number] TAKE 1 [facility] e 3 mg 24 4-24 TABLET BY [facility] f hour tablet 00:00: MOUTH ONCE DAILY [facility] paliperidon 2020-0 Yes [id number] TAKE 1 [facility] e 3 mg 24 4-24 TABLET BY [facility] f hour tablet 00:00: MOUTH ONCE DAILY [facility] paliperidon 2020-0 Yes [id number] TAKE 1 [facility] e 3 mg 24 4-24 TABLET BY [facility] f hour tablet 00:00: MOUTH ONCE DAILY [facility] paliperidon 2020-0 Yes [id number] TAKE 1 [facility] e 3 mg 24 4-24 TABLET BY [facility] o f hour tablet 00:00: MOUTH ONCE DAILY [facility] paliperidon 2020-0 Yes [id number] TAKE 1 [facility] e 3 mg 24 4-24 TABLET BY [facility] f hour tablet 00:00: MOUTH ONCE DAILY [facility] paliperidon 2020-0 Yes [id number] TAKE 1 [facility] e 3 mg 24 4-24 TABLET BY [facility] o f hour tablet 00:00: MOUTH ONCE DAILY [facility] paliperidon 2020-0 Yes [id number] TAKE 1 [facility] e 3 mg 24 4-24 TABLET BY [facility] f hour tablet 00:00: MOUTH ONCE DAILY [facility] paliperidon 2020-0 Yes [id number] TAKE 1 [facility] e 3 mg 24 4-24 TABLET BY [facility] f hour tablet 00:00: MOUTH ONCE DAILY [facility] paliperidon 2020-0 Yes [id number] TAKE 1 [facility] e 3 mg 24 4-24 TABLET BY [facility] f hour tablet 00:00: MOUTH ONCE DAILY [facility] paliperidon 2020-0 Yes [id number] TAKE 1 [facility] e 3 mg 24 4-24 TABLET BY [facility] f hour tablet 00:00: MOUTH ONCE DAILY [facility] paliperidon 2020-0 Yes [id number] TAKE 1 [facility] e 3 mg 24 4-24 TABLET BY [facility] f hour tablet 00:00: MOUTH ONCE DAILY [facility] paliperidon 2020-0 Yes [id number] TAKE 1 [facility] e 3 mg 24 4-24 TABLET BY [facility] f hour tablet 00:00: MOUTH ONCE DAILY [facility] paliperidon 2020-0 Yes [id number] TAKE 1 [facility] e 3 mg 24 4-24 TABLET BY [facility] f hour tablet 00:00: MOUTH ONCE DAILY [facility] paliperidon 2020-0 Yes [id number] TAKE 1 [facility] e 3 mg 24 4-24 TABLET BY [facility] f hour tablet 00:00: MOUTH ONCE DAILY [facility] paliperidon 2020-0 Yes [id number] TAKE 1 [facility] e 3 mg 24 4-24 TABLET BY [facility] f hour tablet 00:00: MOUTH ONCE DAILY [facility] paliperidon 2020-0 Yes [id number] TAKE 1 [facility] e 3 mg 24 4-24 TABLET BY [facility] f hour tablet 00:00: MOUTH ONCE DAILY [facility] paliperidon 2020-0 Yes [id number] TAKE 1 [facility] e 3 mg 24 4-24 TABLET BY [facility] f hour tablet 00:00: MOUTH ONCE DAILY [facility] paliperidon 2020-0 Yes [id number] TAKE 1 [facility] e 3 mg 24 4-24 TABLET BY [facility] o f hour tablet 00:00: MOUTH ONCE DAILY [facility] paliperidon 2020-0 Yes [id number] TAKE 1 [facility] e 3 mg 24 4-24 TABLET BY [facility] o f hour tablet 00:00: MOUTH ONCE DAILY [facility] paliperidon 2020-0 Yes [id number] TAKE 1 [facility] e 3 mg 24 4-24 TABLET BY [facility] o f hour tablet 00:00: MOUTH ONCE DAILY [facility] paliperidon 2020-0 Yes [id number] TAKE 1 [facility] e 3 mg 24 4-24 TABLET BY [facility] o f hour tablet 00:00: MOUTH ONCE DAILY [facility] paliperidon 2020-0 Yes [id number] TAKE 1 [facility] e 3 mg 24 4-24 TABLET BY [facility] o f hour tablet 00:00: MOUTH ONCE [place] 00 DAILY [facility] divalproex 2020-0 Yes [id number] 500mg Take 2 [facility] ER 250 mg 4-23 tablets by [facility] 24 hr 00:00: mouth at [place] tablet 00 bedtime. [facility] divalproex 2020-0 Yes [id number] 500mg Take 2 [facility] ER 250 mg 4-23 tablets by [facility] 24 hr 00:00: mouth at [place] tablet 00 bedtime. [facility] divalproex 2020-0 Yes [id number] 500mg Take 2 [facility] ER 250 mg 4-23 tablets by [facility] 24 hr 00:00: mouth at [place] tablet 00 bedtime. [facility] divalproex 2020-0 Yes [id number] 500mg Take 2 [facility] 250 mg 4-23 tablets by [facility] 24 hr 00:00: mouth at [place] tablet 00 bedtime. [facility] divalproex 2020-0 Yes [id number] 500mg Take 2 [facility] ER 250 mg 4-23 tablets by [facility] 24 hr 00:00: mouth at [place] tablet 00 bedtime. [facility] TOPIRAMATE 2020-0 Yes [id number] TAKE 1 [facility] 25 mg 4-22 TABLET BY [facility] tablet 00:00: MOUTH TWO [place] TIMES Medical DAILY Branch TOPIRAMATE 2020-0 Yes [id number] TAKE 1 [facility] 25 mg 4-22 TABLET BY [facility] tablet 00:00: MOUTH TWO [place] TIMES Medical DAILY Branch TOPIRAMATE 2020-0 Yes [id number] TAKE 1 [facility] 25 mg 4-22 TABLET BY [facility] tablet 00:00: MOUTH TWO [place] TIMES Medical DAILY Branch TOPIRAMATE 2020-0 Yes [id number] TAKE 1 [facility] 25 mg 4-22 TABLET BY [facility] tablet 00:00: MOUTH TWO [place] TIMES Medical DAILY Branch TOPIRAMATE 2020-0 Yes [id number] TAKE 1 [facility] 25 mg 4-22 TABLET BY [facility] tablet 00:00: MOUTH TWO [place] TIMES Medical DAILY Branch TOPIRAMATE 2020-0 Yes [id number] TAKE 1 [facility] 25 mg 4-22 TABLET BY [facility] tablet 00:00: MOUTH TWO [place] TIMES Medical DAILY Branch TOPIRAMATE 2020-0 Yes [id number] TAKE 1 [facility] 25 mg 4-22 TABLET BY [facility] tablet 00:00: MOUTH TWO [place] TIMES Medical DAILY Branch TOPIRAMATE 2020-0 Yes [id number] TAKE 1 [facility] 25 mg 4-22 TABLET BY [facility] tablet 00:00: MOUTH TWO [place] TIMES Medical DAILY Branch TOPIRAMATE 2020-0 Yes [id number] TAKE 1 [facility] 25 mg 4-22 TABLET BY [facility] tablet 00:00: MOUTH TWO [place] TIMES Medical DAILY Branch TOPIRAMATE 2020-0 Yes [id number] TAKE 1 [facility] 25 mg 4-22 TABLET BY [facility] tablet 00:00: MOUTH TWO [place] TIMES Medical DAILY Branch TOPIRAMATE 2020-0 Yes [id number] TAKE 1 [facility] 25 mg 4-22 TABLET BY [facility] tablet 00:00: MOUTH TWO [place] Medical DAILY Branch TOPIRAMATE 2020-0 Yes [id number] TAKE 1 [facility] 25 mg 4-22 TABLET BY [facility] tablet 00:00: MOUTH TWO [place] Medical DAILY Branch TOPIRAMATE 2020-0 Yes [id number] TAKE 1 [facility] 25 mg 4-22 TABLET BY [facility] tablet 00:00: MOUTH TWO [place] Medical DAILY Branch TOPIRAMATE 2020-0 Yes [id number] TAKE 1 [facility] 25 mg 4-22 TABLET BY [facility] tablet 00:00: MOUTH TWO [place] Medical DAILY Branch TOPIRAMATE 2020-0 Yes [id number] TAKE 1 [facility] 25 mg 4-22 TABLET BY [facility] tablet 00:00: MOUTH TWO [place] Medical DAILY Branch TOPIRAMATE 2020-0 Yes [id number] TAKE 1 [facility] 25 mg 4-22 TABLET BY [facility] tablet 00:00: MOUTH TWO [place] Medical DAILY Branch TOPIRAMATE 2020-0 Yes [id number] TAKE 1 [facility] 25 mg 4-22 TABLET BY [facility] tablet 00:00: MOUTH TWO [place] Medical DAILY Branch TOPIRAMATE 2020-0 Yes [id number] TAKE 1 [facility] 25 mg 4-22 TABLET BY [facility] of tablet 00:00: MOUTH TWO [place] TIMES Medical DAILY Branch TOPIRAMATE 2020-0 Yes [id number] TAKE 1 [facility] 25 mg 4-22 TABLET BY [facility] of tablet 00:00: MOUTH TWO [place] TIMES Medical DAILY Branch TOPIRAMATE 2020-0 Yes [id number] TAKE 1 [facility] 25 mg 4-22 TABLET BY [facility] of tablet 00:00: MOUTH TWO [place] TIMES Medical DAILY Branch TOPIRAMATE 2020-0 Yes [id number] TAKE 1 [facility] 25 mg 4-22 TABLET BY [facility] of tablet 00:00: MOUTH TWO [place] TIMES Medical DAILY Branch TOPIRAMATE 2020-0 Yes [id number] TAKE 1 [facility] 25 mg 4-22 TABLET BY [facility] of tablet 00:00: MOUTH TWO [place] Medical DAILY Branch TOPIRAMATE 2020-0 Yes [id number] TAKE 1 [facility] 25 mg 4-22 TABLET BY [facility] of tablet 00:00: MOUTH TWO [place] Medical DAILY Branch TOPIRAMATE 2020-0 Yes [id number] TAKE 1 [facility] 25 mg 4-22 TABLET BY [facility] of tablet 00:00: MOUTH TWO [place] Medical DAILY Branch TOPIRAMATE 2020-0 Yes [id number] TAKE 1 [facility] 25 mg 4-22 TABLET BY [facility] of tablet 00:00: MOUTH [facility] Medical DAILY Branch TOPIRAMATE 2020-0 Yes [id number] TAKE 1 [facility] 25 mg 4-22 TABLET BY it[facility] of tablet 00:00: MOUTH [facility] Medical DAILY Branch TOPIRAMATE 2020-0 Yes [id number] TAKE 1 [facility] 25 mg 4-22 TABLET BY it[facility] of tablet 00:00: MOUTH [facility] Medical DAILY Branch TOPIRAMATE 2020-0 Yes [id number] TAKE 1 [facility] 25 mg 4-22 TABLET BY [facility] of tablet 00:00: MOUTH [facility] Medical DAILY Branch TOPIRAMATE 2020-0 Yes [id number] TAKE 1 [facility] 25 mg 4-22 TABLET BY [facility] of tablet 00:00: [facility] Medical DAILY Branch TOPIRAMATE 2020-0 Yes [id number] TAKE 1 [facility] 25 mg 4-22 TABLET BY it[facility] of tablet 00:00: [facility] Medical DAILY Branch TOPIRAMATE 2020-0 Yes [id number] TAKE 1 [facility] 25 mg 4-22 TABLET BY it[facility] of tablet 00:00: MOUTH TWO [place] Medical DAILY Branch TOPIRAMATE 2020-0 Yes [id number] TAKE 1 [facility] 25 mg 4-22 TABLET BY [facility] of tablet 00:00: MOUTH TWO [place] TIMES Medical DAILY Branch TOPIRAMATE 2020-0 Yes [id number] TAKE 1 [facility] 25 mg 4-22 TABLET BY ity of tablet 00:00: MOUTH [facility] TIMES Medical DAILY Branch TOPIRAMATE 2020-0 Yes [id number] TAKE 1 [facility] 25 mg 4-22 TABLET BY ity of tablet 00:00: MOUTH [facility] 00 TIMES Medical DAILY Branch TOPIRAMATE 2020-0 Yes [id number] TAKE 1 [facility] 25 mg 4-22 TABLET BY [facility] of tablet 00:00: MOUTH TWO [place] TIMES Medical DAILY Branch TOPIRAMATE 2020-0 Yes [id number] TAKE 1 [facility] 25 mg 4-22 TABLET BY [facility] of tablet 00:00: MOUTH TWO [place] TIMES Medical DAILY Branch TOPIRAMATE 2020-0 Yes [id number] TAKE 1 [facility] 25 mg 4-22 TABLET BY [facility] of tablet 00:00: MOUTH TWO [place] TIMES Medical DAILY Branch TOPIRAMATE 2020-0 Yes [id number] TAKE 1 [facility] 25 mg 4-22 TABLET BY [facility] of tablet 00:00: MOUTH TWO [place] TIMES Medical DAILY Branch TOPIRAMATE 2020-0 Yes [id number] TAKE 1 [facility] 25 mg 4-22 TABLET BY [facility] of tablet 00:00: MOUTH TWO [place] TIMES Medical DAILY Branch TOPIRAMATE 2020-0 Yes [id number] TAKE 1 [facility] 25 mg 4-22 TABLET BY [facility] of tablet 00:00: MOUTH TWO [place] TIMES Medical DAILY Branch TOPIRAMATE 2020-0 Yes [id number] TAKE 1 [facility] 25 mg 4-22 TABLET BY [facility] of tablet 00:00: MOUTH TWO [place] TIMES Medical DAILY Branch TOPIRAMATE 2020-0 Yes [id number] TAKE 1 [facility] 25 mg 4-22 TABLET BY [facility] of tablet 00:00: MOUTH TWO [place] TIMES Medical DAILY Branch clonazePAM 2020-0 Yes [id number] .5mg Take 1 [facility] nivers 0.5 mg 3-17 tablet by [facility] of tablet 00:00: mouth at [place] [address] bedtime. Medical Branch clonazePAM 2020-0 Yes [id number] .5mg Take 1 [facility] nivers 0.5 mg 3-17 tablet by [facility] of tablet 00:00: mouth at [place] [address] bedtime. Medical [facility] clonazePAM 2020-0 Yes [id number] .5mg Take 1 [facility] nivers 0.5 mg 3-17 tablet by [facility] of tablet 00:00: mouth at [place] [address] bedtime. [facility] clonazePAM 2020-0 Yes [id number] .5mg Take 1 [facility] nivers 0.5 mg 3-17 tablet by [facility] of tablet 00:00: mouth at [place] [address] bedtime. Medical [facility] clonazePAM 2020-0 Yes [id number] .5mg Take 1 [facility] nivers 0.5 mg 3-17 tablet by [facility] of tablet 00:00: mouth at [place] [address] bedtime. [facility] clonazePAM 2020-0 Yes [id number] .5mg Take 1 [facility] nivers 0.5 mg 3-17 tablet by [facility] of tablet 00:00: mouth at [place] [address] bedtime. [facility] clonazePAM 2020-0 Yes [id number] .5mg Take 1 [facility] nivers 0.5 mg 3-17 tablet by [facility] of tablet 00:00: mouth at [place] [address] bedtime. Medical [facility] clonazePAM 2020-0 Yes [id number] .5mg Take 1 [facility] nivers 0.5 mg 3-17 tablet by [facility] of tablet 00:00: mouth at [place] [address] bedtime. Medical Branch clonazePAM 2020-0 Yes [id number] .5mg Take 1 [facility] nivers 0.5 mg 3-17 tablet by [facility] of tablet 00:00: mouth at [place] [address] bedtime. Medical Branch clonazePAM 2020-0 Yes [id number] .5mg Take 1 [facility] nivers 0.5 mg 3-17 tablet by [facility] of tablet 00:00: mouth at [place] [address] bedtime. Medical Branch clonazePAM 2020-0 Yes [id number] .5mg Take 1 [facility] nivers 0.5 mg 3-17 tablet by [facility] of tablet 00:00: mouth at [place] [address] bedtime. Medical Branch clonazePAM 2020-0 Yes [id number] .5mg Take 1 [facility] nivers 0.5 mg 3-17 tablet by [facility] of tablet 00:00: mouth at [place] [address] bedtime. Medical Branch clonazePAM 2020-0 Yes [id number] .5mg Take 1 [facility] nivers 0.5 mg 3-17 tablet by [facility] of tablet 00:00: mouth at [place] [address] bedtime. Medical Branch clonazePAM 2020-0 Yes [id number] .5mg Take 1 [facility] nivers 0.5 mg 3-17 tablet by [facility] of tablet 00:00: mouth at [place] [address] bedtime. Medical Branch clonazePAM 2020-0 Yes [id number] .5mg Take 1 [facility] nivers 0.5 mg 3-17 tablet by [facility] of tablet 00:00: mouth at [place] [address] bedtime. Medical Branch clonazePAM 2020-0 Yes [id number] .5mg Take 1 [facility] nivers 0.5 mg 3-17 tablet by [facility] of tablet 00:00: mouth at [place] [address] bedtime. Medical Branch clonazePAM 2020-0 Yes [id number] .5mg Take 1 [facility] nivers 0.5 mg 3-17 tablet by [facility] of tablet 00:00: mouth at [place] [address] bedtime. Medical Branch clonazePAM 2020-0 Yes [id number] .5mg Take 1 [facility] nivers 0.5 mg 3-17 tablet by [facility] of tablet 00:00: mouth at [place] [address] bedtime. Medical Branch clonazePAM 2020-0 Yes [id number] .5mg Take 1 [facility] nivers 0.5 mg 3-17 tablet by [facility] of tablet 00:00: mouth at [place] [address] bedtime. Medical Branch clonazePAM 2020-0 Yes [id number] .5mg Take 1 [facility] nivers 0.5 mg 3-17 tablet by [facility] of tablet 00:00: mouth at [place] [address] bedtime. Medical Branch clonazePAM 2020-0 Yes [id number] .5mg Take 1 [facility] nivers 0.5 mg 3-17 tablet by [facility] of tablet 00:00: mouth at [place] [address] bedtime. Medical Branch clonazePAM 2020-0 Yes [id number] .5mg Take 1 [facility] nivers 0.5 mg 3-17 tablet by [facility] of tablet 00:00: mouth at [place] [address] bedtime. Medical Branch clonazePAM 2020-0 Yes [id number] .5mg Take 1 [facility] nivers 0.5 mg 3-17 tablet by [facility] of tablet 00:00: mouth at [place] [address] bedtime. [facility] Branch clonazePAM 2020-0 Yes [id number] .5mg Take 1 U nivers 0.5 mg 3-17 tablet by ity of tablet 00:00: mouth at [place] [address] bedtime. [facility] clonazePAM 2020-0 Yes [id number] .5mg Take 1 U nivers 0.5 mg 3-17 tablet by ity of tablet 00:00: mouth at [place] [address] bedtime. [facility] clonazePAM 2020-0 Yes [id number] .5mg Take 1 U nivers 0.5 mg 3-17 tablet by ity of tablet 00:00: mouth at [place] [address] bedtime. [facility] Branch clonazePAM 2020-0 Yes [id number] .5mg Take 1 U nivers 0.5 mg 3-17 tablet by ity of tablet 00:00: mouth at [place] [address] bedtime. [facility] clonazePAM 2020-0 Yes [id number] .5mg Take 1 U nivers 0.5 mg 3-17 tablet by ity of tablet 00:00: mouth at [place] 00 bedtime. [facility] clonazePAM 2020-0 Yes [id number] .5mg Take 1 U nivers 0.5 mg 3-17 tablet by ity of tablet 00:00: mouth at [place] 00 bedtime. [facility] clonazePAM 2020-0 Yes [id number] .5mg Take 1 U nivers 0.5 mg 3-17 tablet by ity of tablet 00:00: mouth at [place] 00 bedtime. [facility] clonazePAM 2020-0 Yes [id number] .5mg Take 1 U nivers 0.5 mg 3-17 tablet by ity of tablet 00:00: mouth at [place] 00 bedtime. [facility] clonazePAM 2020-0 Yes [id number] .5mg Take 1 U nivers 0.5 mg 3-17 tablet by ity of tablet 00:00: mouth at [place] 00 bedtime. [facility] clonazePAM 2020-0 Yes [id number] .5mg Take 1 U nivers 0.5 mg 3-17 tablet by ity of tablet 00:00: mouth at [place] 00 bedtime. [facility] divalproex 2020-0 Yes [id number] 500mg Take 2 [facility] 250 mg 2-24 tablets by [facility] of 24 hr 00:00: mouth at [place] tablet 00 bedtime. [facility] divalproex 2020-0 Yes [id number] 500mg Take 2 [facility] ER 250 mg 2-24 tablets by ity of 24 hr 00:00: mouth at [place] tablet 00 bedtime. [facility] divalproex 2020-0 Yes [id number] 500mg Take 2 [facility] ER 250 mg 2-24 tablets by ity of 24 hr 00:00: mouth at [place] tablet 00 bedtime. [facility] divalproex 2020-0 Yes [id number] 500mg Take 2 [facility] ER 250 mg 2-24 tablets by ity of 24 hr 00:00: mouth at [place] tablet 00 bedtime. [facility] Branch divalproex 2020-0 Yes [id number] 500mg Take 2 [facility] ER 250 mg 2-24 tablets by ity of 24 hr 00:00: mouth at [place] tablet 00 bedtime. [facility] divalproex 2020-0 Yes [id number] 500mg Take 2 [facility] ER 250 mg 2-24 tablets by ity of 24 hr 00:00: mouth at [place] tablet 00 bedtime. [facility] Branch MIRTAZAPINE 2020-0 Yes [id number] TAKE 1 [facility] 7.5 mg 2-14 105 TABLET BY ity of tablet 00:00: MOUTH 00 EVERYDAY Medical AT BEDTIME [place] MIRTAZAPINE 2020-0 Yes [id number] TAKE 1 [facility] 7.5 mg 2-14 105 TABLET BY ity of tablet 00:00: [facility] 00 EVERYDAY Medical AT BEDTIME [place] MIRTAZAPINE 2020-0 Yes [id number] TAKE 1 [facility] 7.5 mg 2-14 105 TABLET BY ity of tablet 00:00: [facility] 00 EVERYDAY Medical AT [facility] MIRTAZAPINE 2020-0 Yes [id number] TAKE 1 [facility] 7.5 mg 2-14 105 TABLET BY ity of tablet 00:00: MOUTH 00 EVERYDAY Medical AT BEDTIME [place] MIRTAZAPINE 2020-0 Yes [id number] TAKE 1 [facility] 7.5 mg 2-14 105 TABLET BY ity of tablet 00:00: [facility] Yes [id number] TAKE 1 [facility] 7.5 mg 2-14 105 TABLET BY ity of tablet 00:00: [facility] EVERYDAY Medical AT [facility] MIRTAZAPINE 2020-0 Yes [id number] TAKE 1 Univers 7.5 mg 2-14 105 TABLET BY ity of tablet 00:00: [facility] EVERYDAY Medical AT [facility] MIRTAZAPINE 2020-0 Yes [id number] TAKE 1 [facility] 7.5 mg 2-14 105 TABLET BY ity of tablet 00:00: [facility] EVERYDAY Medical AT [facility] MIRTAZAPINE 2020-0 Yes [id number] TAKE 1 [facility] 7.5 mg 2-14 105 TABLET BY ity of tablet 00:00: [facility] EVERYDAY Medical AT [facility] MIRTAZAPINE 2020-0 Yes [id number] TAKE 1 [facility] 7.5 mg 2-14 105 TABLET BY ity of tablet 00:00: [facility] EVERYDAY Medical AT [facility] rivaroxaban 2020-0 Yes Take by Un jhonatan (XARELTO) 1-23 mouth. ity of 20 mg 16:13: [place] tablet 27 [facility] rivaroxaban 2020-0 Yes Take by Un [facility] (XARELTO) 1-23 mouth. ity of 20 mg 16:13: [place] tablet 27 Medical Branch rivaroxaban 2020-0 Yes Take by Un [facility] (XARELTO) 1-23 mouth. ity of 20 mg 16:13: [place] tablet 27 [facility] rivaroxaban 2020-0 Yes Take by Un jhonatan [...] 2020-0 Yes Take by [facility] (XARELTO) 1- mouth. ity of 20 mg 16:13: [place] [...] 2020-0 Yes Take by [facility] (XARELTO) 23 mouth. ity of 20 mg 16:13: [place] tablet 27 Medical Branch mirtazapine 2020-0 Yes [id number] 7.5mg Take 1 [facility] 7.5 mg 1-23 105 tablet by ity of tablet 00:00: mouth at [place] 00 bedtime. Medical Branch clonazePAM 2020-0 Yes [id number] .5mg Take 1 U nivers 0.5 mg 1-23 tablet by ity of tablet 00:00: mouth at [place] 00 bedtime. Medical Branch paliperidon 2020-0 Yes [id number] TAKE 1 [facility] e 3 mg 24 1-23 TABLET BY ity o f hour tablet 00:00: MOUTH ONCE [place] 00 DAILY Medical Branch mirtazapine 2020-0 Yes [id number] 7.5mg Take 1 [facility] 7.5 mg 1-23 105 tablet by ity of tablet 00:00: mouth at [place] 00 bedtime. Medical Branch clonazePAM 2020-0 Yes [id number] .5mg Take 1 U nivers 0.5 mg 1-23 tablet by ity of tablet 00:00: mouth at [place] 00 bedtime. Medical Branch paliperidon 2020-0 Yes [id number] TAKE 1 [facility] e 3 mg 24 1-23 TABLET BY ity o f hour tablet 00:00: MOUTH ONCE [place] DAILY Medical Branch mirtazapine 2020-0 Yes [id number] 7.5mg Take 1 [facility] 7.5 mg 1-23 105 tablet by ity of tablet 00:00: mouth at [place] 00 bedtime. Medical Branch clonazePAM 2020-0 Yes [id number] .5mg Take 1 [facility] nivers 0.5 mg 1-23 tablet by ity of tablet 00:00: mouth at [place] 00 bedtime. Medical Branch paliperidon 2020-0 Yes [id number] TAKE 1 [facility] e 3 mg 24 1-23 TABLET BY ity o f hour tablet 00:00: MOUTH ONCE [place] DAILY Medical Branch mirtazapine 2020-0 Yes [id number] 7.5mg Take 1 [facility] 7.5 mg 1-23 105 tablet by ity of tablet 00:00: mouth at [place] 00 bedtime. Medical Branch clonazePAM 2020-0 Yes [id number] .5mg Take 1 [facility] nivers 0.5 mg 1-23 tablet by ity of tablet 00:00: mouth at [place] 00 bedtime. Medical Branch paliperidon 2020-0 Yes [id number] TAKE 1 [facility] e 3 mg 24 1-23 TABLET BY ity o f hour tablet 00:00: MOUTH ONCE [place] DAILY Medical Branch clonazePAM 2020-0 Yes [id number] .5mg Take 1 [facility] nivers 0.5 mg 1-23 tablet by ity of tablet 00:00: mouth at [place] bedtime. Medical Branch paliperidon 2019-0 Yes [id number] TAKE 1 [facility] e 3 mg 24 1-23 TABLET BY ity o f hour tablet 00:00: MOUTH ONCE DAILY Medical Branch clonazePAM 2019-0 Yes [id number] .5mg Take 1 [facility] nivers 0.5 mg 1-23 tablet by ity of tablet 00:00: mouth at [place] 00 bedtime. Medical Branch paliperidon 2019-0 Yes [id number] TAKE 1 [facility] e 3 mg 24 1-23 TABLET BY ity o f hour tablet 00:00: MOUTH ONCE DAILY Medical Branch paliperidon 2019-0 Yes [id number] TAKE 1 [facility] e 3 mg 24 1-23 TABLET BY ity o f hour tablet 00:00: MOUTH ONCE DAILY Medical Branch paliperidon 2019-0 Yes [id number] TAKE 1 [facility] e 3 mg 24 1-23 TABLET BY ity o f hour tablet 00:00: MOUTH ONCE DAILY Medical Branch paliperidon 2019-0 Yes [id number] TAKE 1 [facility] e 3 mg 24 1-23 TABLET BY ity o f hour tablet 00:00: MOUTH ONCE DAILY Medical Branch paliperidon 2019-0 Yes [id number] TAKE 1 [facility] e 3 mg 24 1-23 TABLET BY ity o f hour tablet 00:00: MOUTH ONCE DAILY Medical Branch paliperidon 2019-0 Yes [id number] TAKE 1 [facility] e 3 mg 24 1-23 TABLET BY ity o f hour tablet 00:00: MOUTH ONCE DAILY Medical Branch paliperidon 2019-0 Yes [id number] TAKE 1 [facility] e 3 mg 24 1-23 TABLET BY ity o f hour tablet 00:00: MOUTH ONCE DAILY Medical Branch propranolol 2018-05 Yes [id number] 10mg Take 1 [facility] 10 mg 1-22 tablet by ity of tablet 00:00: mouth 2 (two) Medical times Branch daily as needed (tremor). propranolol 2018-05 Yes [id number] 10mg Take 1 [facility] 10 mg 1-22 tablet by ity of tablet 00:00: mouth 2 (two) Medical times Branch daily as needed (tremor). propranolol 2018-05 Yes [id number] 10mg Take 1 [facility] 10 mg 1-22 tablet by ity of tablet 00:00: mouth 2 00 (two) Medical times Branch daily as needed (tremor). propranolol 2018-05 Yes [id number] 10mg Take 1 [facility] 10 mg 1-22 tablet by ity of tablet 00:00: mouth 2 [place] 00 (two) Medical times Branch daily as needed (tremor). propranolol 2018-05 Yes [id number] 10mg Take 1 [facility] 10 mg 1-22 tablet by ity of tablet 00:00: mouth 2 00 (two) Medical times Branch daily as needed (tremor). propranolol 2018-05 Yes [id number] 10mg Take 1 [facility] 10 mg 1-22 tablet by ity of tablet 00:00: mouth 2 00 (two) Medical times Branch daily as needed (tremor). propranolol 2018-05 Yes [id number] 10mg Take 1 [facility] 10 mg 1-22 tablet by ity of tablet 00:00: mouth 2 00 (two) Medical times Branch daily as needed (tremor). propranolol 2018-05 Yes [id number] 10mg Take 1 [facility] 10 mg 1-22 tablet by ity of tablet 00:00: mouth 2 00 (two) Medical times Branch daily as needed (tremor). propranolol 2018-05 Yes [id number] 10mg Take 1 [facility] 10 mg 1-22 tablet by ity of tablet 00:00: mouth 2 00 (two) Medical times Branch daily as needed (tremor). propranolol 2018-05 Yes [id number] 10mg Take 1 [facility] 10 mg 1-22 tablet by ity of tablet 00:00: mouth 2 00 (two) Medical times Branch daily as needed (tremor). propranolol 2018-05 Yes [id number] 10mg Take 1 [facility] 10 mg 1-22 tablet by ity of tablet 00:00: mouth 2 00 (two) Medical times Branch daily as needed (tremor). propranolol 2018-05 Yes [id number] 10mg Take 1 [facility] 10 mg 1-22 tablet by ity of tablet 00:00: mouth 2 00 (two) Medical times Branch daily as needed (tremor). propranolol 2018-05 Yes [id number] 10mg Take 1 [facility] 10 mg 1-22 tablet by ity of tablet 00:00: mouth 2 00 (two) Medical times Branch daily as needed (tremor). propranolol 2018-05 Yes [id number] 10mg Take 1 [facility] 10 mg 1-22 tablet by ity of tablet 00:00: mouth 2 [place] 00 (two) Medical times Branch daily as needed (tremor). propranolol 2018-05 Yes [id number] 10mg Take 1 [facility] 10 mg 1-22 tablet by ity of tablet 00:00: mouth 2 [place] 00 (two) Medical times Branch daily as needed (tremor). propranolol 2018-05 Yes [id number] 10mg Take 1 [facility] 10 mg 1-22 tablet by ity of tablet 00:00: mouth 2 [place] 00 (two) Medical times Branch daily as needed (tremor). propranolol 2018-05 Yes [id number] 10mg Take 1 [facility] 10 mg 1-22 tablet by ity of tablet 00:00: mouth 2 [place] 00 (two) Medical times Branch daily as needed (tremor). propranolol 2018-05 Yes [id number] 10mg Take 1 [facility] 10 mg 1-22 tablet by ity of tablet 00:00: mouth 2 [place] 00 (two) Medical times Branch daily as needed (tremor). propranolol 2018-05 Yes [id number] 10mg Take 1 [facility] 10 mg 1-22 tablet by ity of tablet 00:00: mouth 2 [place] 00 (two) Medical times Branch daily as needed (tremor). propranolol 2018-05 Yes [id number] 10mg Take 1 [facility] 10 mg 1-22 tablet by ity of tablet 00:00: mouth 2 [place] 00 (two) Medical times Branch daily as needed (tremor). propranolol 2018-05 Yes [id number] 10mg Take 1 [facility] 10 mg 0-25 tablet by ity of tablet 00:00: mouth [place] 00 daily. Medical Branch propranolol 2018-05 Yes [id number] 10mg Take 1 [facility] 10 mg 0-25 tablet by ity of tablet 00:00: mouth [place] 00 daily. Medical Branch rivaroxaban Yes Take by [facility] (XARELTO) 02-10 mouth. ity of 20 mg 15:21: [place] tablet 28 Medical Branch rivaroxaban Yes Take by [facility] (XARELTO) 02-10 mouth. ity of 20 mg 15:21: [place] tablet 28 Medical Branch rivaroxaban Yes Take by [facility] (XARELTO) 02-10 mouth. ity of 20 mg 15:21: [place] tablet 28 Medical Branch rivaroxaban Yes Take by Un [facility] (XARELTO) 9 mouth. ity of 20 mg 15:21: [place] tablet 28 Medical Branch rivaroxaban Yes Take by [facility] (XARELTO) 02-10 mouth. ity of 20 mg 15:21: [place] tablet 28 Medical Branch rivaroxaban Yes Take by [facility] (XARELTO) 02-10 mouth. ity of 20 mg 15:21: [place] tablet 28 Medical Branch rivaroxaban Yes Take by Un [facility] (XARELTO) 02-10 mouth. ity of 20 mg 15:21: [place] tablet 28 Medical Branch divalproex Yes [id number] 500mg Take 2 [facility] ER 250 mg 9-10 tablets by ity of 24 hr 00:00: mouth at [place] tablet 00 bedtime. Medical Branch divalproex Yes [id number] 500mg Take 2 [facility] ER 250 mg 9-10 tablets by ity of 24 hr 00:00: mouth at [place] tablet 00 bedtime. Medical Branch divalproex Yes [id number] 500mg Take 2 [facility] ER 250 mg 9-10 tablets by ity of 24 hr 00:00: mouth at [place] tablet 00 bedtime. Medical Branch divalproex Yes [id number] 500mg Take 2 [facility] ER 250 mg 9-10 tablets by ity of 24 hr 00:00: mouth at [place] tablet 00 bedtime. Medical Branch divalproex Yes [id number] 500mg Take 2 [facility] ER 250 mg 9-10 tablets by ity of 24 hr 00:00: mouth at [place] tablet 00 bedtime. Medical Branch divalproex Yes [id number] 500mg Take 2 [facility] ER 250 mg 9-10 tablets by ity of 24 hr 00:00: mouth at [place] tablet 00 bedtime. Medical Branch divalproex Yes [id number] 500mg Take 2 [facility] ER 250 mg 9-10 tablets by ity of 24 hr 00:00: mouth at [place] tablet 00 bedtime. Medical Branch divalproex Yes [id number] 500mg Take 2 [facility] ER 250 mg 9-10 tablets by ity of 24 hr 00:00: mouth at [place] tablet 00 bedtime. Medical Branch divalproex Yes [id number] 500mg Take 2 [facility] ER 250 mg 9-10 tablets by ity of 24 hr 00:00: mouth at [place] tablet 00 bedtime. Medical Branch divalproex 2019-0 Yes [id number] 500mg Take 2 [facility] ER 250 mg 9-10 tablets by ity of 24 hr 00:00: mouth at [place] tablet 00 bedtime. Medical Branch divalproex 2018-0 Yes [id number] 500mg Take 2 [facility] ER 250 mg 9-10 tablets by ity of 24 hr 00:00: mouth at [place] tablet 00 bedtime. Medical Branch divalproex Yes [id number] 500mg Take 2 [facility] ER 250 mg 9-10 tablets by ity of 24 hr 00:00: mouth at [place] tablet 00 bedtime. Medical Branch divalproex Yes [id number] 500mg Take 2 [facility] ER 250 mg 9-10 tablets by ity of 24 hr 00:00: mouth at [place] tablet 00 bedtime. Medical Branch divalproex Yes [id number] 500mg Take 2 [facility] ER 250 mg 9-10 tablets by ity of 24 hr 00:00: mouth at [place] tablet 00 bedtime. Medical Branch divalproex Yes [id number] 500mg Take 2 [facility] ER 250 mg 9-10 tablets by ity of 24 hr 00:00: mouth at [place] tablet 00 bedtime. Medical Branch divalproex Yes [id number] 500mg Take 2 [facility] ER 250 mg 9-10 tablets by ity of 24 hr 00:00: mouth at [place] tablet 00 bedtime. Medical Branch divalproex Yes [id number] 500mg Take 2 [facility] ER 250 mg 9-10 tablets by ity of 24 hr 00:00: mouth at [place] tablet 00 bedtime. Medical Branch divalproex 0 Yes [id number] 500mg Take 2 [facility] ER 250 mg 9-10 tablets by ity of 24 hr 00:00: mouth at [place] tablet 00 bedtime. Medical Branch divalproex 2018-0 Yes [id number] 500mg Take 2 [facility] ER 250 mg 9-10 tablets by ity of 24 hr 00:00: mouth at [place] tablet 00 bedtime. Medical Branch divalproex 2018-0 Yes [id number] 500mg Take 2 [facility] ER 250 mg 9-10 tablets by ity of 24 hr 00:00: mouth at [place] tablet 00 bedtime. Medical Branch divalproex 2018- Yes [id number] 500mg Take 2 [facility] ER 250 mg 9-10 tablets by ity of 24 hr 00:00: mouth at [place] tablet 00 bedtime. Medical Branch TOPIRAMATE 2019-0 Yes [id number] TAKE 1 [facility] 25 mg 8-28 TABLET BY ity of tablet 00:00: MOUTH TWO [place] Medical DAILY Branch TOPIRAMATE 2018-0 Yes [id number] TAKE 1 [facility] 25 mg 8-28 TABLET BY ity of tablet 00:00: MOUTH TWO [place] Medical DAILY Branch TOPIRAMATE 2018-0 Yes [id number] TAKE 1 [facility] 25 mg 8-28 TABLET BY ity of tablet 00:00: MOUTH TWO [place] Medical DAILY Branch TOPIRAMATE 2018-0 Yes [id number] TAKE 1 [facility] 25 mg 8-28 TABLET BY ity of tablet 00:00: MOUTH TWO [place] Medical DAILY Branch TOPIRAMATE 2018-0 Yes [id number] TAKE 1 [facility] 25 mg 8-28 TABLET BY ity of tablet 00:00: MOUTH [facility] Medical DAILY Branch TOPIRAMATE 2018-0 Yes [id number] TAKE 1 [facility] 25 mg 8-28 TABLET BY ity of tablet 00:00: MOUTH [facility] Medical DAILY Branch TOPIRAMATE 2018-0 Yes [id number] TAKE 1 [facility] 25 mg 8-28 TABLET BY ity of tablet 00:00: [facility] Medical DAILY Branch TOPIRAMATE 2018-0 Yes [id number] TAKE 1 Univers 25 mg 8-28 TABLET BY ity of tablet 00:00: [facility] Medical DAILY Branch TOPIRAMATE 2018-0 Yes [id number] TAKE 1 [facility] 25 mg 8-28 TABLET BY ity of tablet 00:00: MOUTH TWO [place] Medical DAILY Branch TOPIRAMATE 2018-0 Yes [id number] TAKE 1 [facility] 25 mg 8-28 TABLET BY ity of tablet 00:00: [facility] TWO [place] Medical DAILY Branch TOPIRAMATE 2018-0 Yes [id number] TAKE 1 [facility] 25 mg 8-28 TABLET BY ity of tablet 00:00: [facility] TWO [place] Medical DAILY Branch TOPIRAMATE 2018-0 Yes [id number] TAKE 1 [facility] 25 mg 8-28 TABLET BY ity of tablet 00:00: MOUTH TWO [place] Medical DAILY Branch TOPIRAMATE 2018-0 Yes [id number] TAKE 1 [facility] 25 mg 8-28 TABLET BY ity of tablet 00:00: MOUTH TWO [place] Medical DAILY Branch TOPIRAMATE Yes [id number] TAKE 1 [facility] 25 mg 8-28 TABLET BY ity of tablet 00:00: MOUTH TWO [place] Medical DAILY Branch TOPIRAMATE Yes [id number] TAKE 1 [facility] 25 mg 8-28 TABLET BY ity of tablet 00:00: MOUTH TWO Medical DAILY Branch TOPIRAMATE Yes [id number] TAKE 1 [facility] 25 mg 8-28 TABLET BY ity of tablet 00:00: MOUTH TWO Medical DAILY Branch TOPIRAMATE Yes [id number] TAKE 1 [facility] 25 mg 8-28 TABLET BY ity of tablet 00:00: MOUTH TWO [place] Medical DAILY Branch TOPIRAMATE 2020- No [id number] TAKE 1 [facility] 25 mg 8-28 04-22 TABLET BY ity of tablet 00:00: 00:00 MOUTH TWO [place] 00 : TIMES Medical DAILY Branch paliperidon Yes [id number] TAKE 1 [facility] e 3 mg 24 8-07 TABLET BY ity o f hour tablet 00:00: MOUTH ONCE Medical Branch PALIPERIDON Yes [id number] TAKE 1 [facility] E 3 mg 24 8-07 TABLET BY ity o f hour tablet 00:00: MOUTH ONCE Medical Branch paliperidon Yes [id number] TAKE 1 [facility] e 3 mg 24 8-07 TABLET BY ity o f hour tablet 00:00: MOUTH ONCE Medical Branch PALIPERIDON Yes [id number] TAKE 1 [facility] E 3 mg 24 8-07 TABLET BY ity o f hour tablet 00:00: MOUTH ONCE DAILY Medical Branch paliperidon Yes [id number] TAKE 1 [facility] e 3 mg 24 8-07 TABLET BY ity o f hour tablet 00:00: MOUTH ONCE DAILY Medical Branch PALIPERIDON Yes [id number] TAKE 1 [facility] E 3 mg 24 8-07 TABLET BY ity o f hour tablet 00:00: MOUTH ONCE DAILY Medical Branch paliperidon Yes [id number] TAKE 1 [facility] e 3 mg 24 8-07 TABLET BY ity o f hour tablet 00:00: MOUTH ONCE DAILY Medical Branch PALIPERIDON Yes [id number] TAKE 1 [facility] E 3 mg 24 8-07 TABLET BY ity o f hour tablet 00:00: MOUTH ONCE DAILY Medical Branch paliperidon 20190 Yes [id number] TAKE 1 [facility] e 3 mg 24 8-07 TABLET BY ity o f hour tablet 00:00: MOUTH ONCE DAILY Medical Branch PALIPERIDON 20190 Yes [id number] TAKE 1 [facility] E 3 mg 24 8-07 TABLET BY ity o f hour tablet 00:00: MOUTH ONCE DAILY Medical Branch paliperidon 20190 Yes [id number] TAKE 1 [facility] e 3 mg 24 8-07 TABLET BY ity o f hour tablet 00:00: MOUTH ONCE DAILY Medical Branch PALIPERIDON 20190 Yes [id number] TAKE 1 [facility] E 3 mg 24 8-07 TABLET BY ity o f hour tablet 00:00: MOUTH ONCE DAILY Medical Branch paliperidon 2019 Yes [id number] TAKE 1 [facility] e 3 mg 24 8-07 TABLET BY ity o f hour tablet 00:00: MOUTH ONCE DAILY Medical Branch PALIPERIDON 2019 Yes [id number] TAKE 1 [facility] E 3 mg 24 8-07 TABLET BY ity o f hour tablet 00:00: MOUTH ONCE DAILY Medical Branch paliperidon 20190 Yes [id number] TAKE 1 [facility] e 3 mg 24 8-07 TABLET BY ity o f hour tablet 00:00: MOUTH ONCE DAILY Medical Branch PALIPERIDON 2019-0 Yes [id number] TAKE 1 [facility] E 3 mg 24 8-07 TABLET BY ity o f hour tablet 00:00: MOUTH ONCE DAILY Medical Branch paliperidon 2019-0 Yes [id number] TAKE 1 [facility] e 3 mg 24 8-07 TABLET BY ity o f hour tablet 00:00: MOUTH ONCE DAILY Medical Branch PALIPERIDON 2019-0 Yes [id number] TAKE 1 [facility] E 3 mg 24 8-07 TABLET BY ity o f hour tablet 00:00: MOUTH ONCE DAILY Medical Branch paliperidon 2019-0 Yes [id number] TAKE 1 [facility] e 3 mg 24 8-07 TABLET BY ity o f hour tablet 00:00: MOUTH ONCE DAILY Medical Branch PALIPERIDON 2019 Yes [id number] TAKE 1 [facility] E 3 mg 24 8-07 TABLET BY ity o f hour tablet 00:00: MOUTH ONCE DAILY Medical Branch paliperidon Yes [id number] TAKE 1 [facility] e 3 mg 24 8-07 TABLET BY ity o f hour tablet 00:00: MOUTH ONCE DAILY Medical Branch PALIPERIDON Yes [id number] TAKE 1 [facility] E 3 mg 24 8-07 TABLET BY ity o f hour tablet 00:00: MOUTH ONCE DAILY Medical Branch paliperidon Yes [id number] TAKE 1 [facility] e 3 mg 24 8-07 TABLET BY ity o f hour tablet 00:00: MOUTH ONCE DAILY Medical Branch PALIPERIDON Yes [id number] TAKE 1 [facility] E 3 mg 24 8-07 TABLET BY ity o f hour tablet 00:00: MOUTH ONCE DAILY Medical Branch paliperidon Yes [id number] TAKE 1 [facility] e 3 mg 24 8-07 TABLET BY ity o f hour tablet 00:00: MOUTH ONCE DAILY Medical Branch paliperidon Yes [id number] TAKE 1 [facility] e 3 mg 24 8-07 TABLET BY ity o f hour tablet 00:00: MOUTH ONCE DAILY Medical Branch paliperidon Yes [id number] TAKE 1 [facility] e 3 mg 24 8-07 TABLET BY ity o f hour tablet 00:00: MOUTH ONCE DAILY Medical Branch paliperidon Yes [id number] TAKE 1 [facility] e 3 mg 24 8-07 TABLET BY ity o f hour tablet 00:00: MOUTH ONCE DAILY Medical Branch PALIPERIDON Yes [id number] TAKE 1 [facility] E 3 mg 24 8-07 TABLET BY ity o f hour tablet 00:00: MOUTH ONCE DAILY Medical Branch clonazePAM Yes [id number] .5mg Take 2 [facility] 0.25 mg 7-26 105 tablets by ity of disintegrat 00:00: mouth at [place] tablet 00 bedtime. Medic al Branch clonazePAM Yes [id number] .5mg Take 2 [facility] 0.25 mg 7-26 105 tablets by ity of disintegrat 00:00: mouth at [place] tablet 00 bedtime. Medic al Branch clonazePAM Yes [id number] .5mg Take 2 [facility] 0.25 mg 7-26 105 tablets by ity of disintegrat 00:00: mouth at [place] tablet 00 bedtime. Medic al Branch clonazePAM 2019-0 Yes [id number] .5mg Take 2 [facility] 0.25 mg 7-26 105 tablets by ity of disintegrat 00:00: mouth at [place] tablet 00 bedtime. Medic al Branch clonazePAM 2019-0 Yes [id number] .5mg Take 2 [facility] 0.25 mg 7-26 105 tablets by ity of disintegrat 00:00: mouth at [place] tablet 00 bedtime. Medic al Branch clonazePAM 2019-0 Yes [id number] .5mg Take 2 [facility] 0.25 mg 7-26 105 tablets by ity of disintegrat 00:00: mouth at [place] tablet 00 bedtime. [facility] al Branch clonazePAM 2019-0 Yes [id number] .5mg Take 2 [facility] 0.25 mg 7-26 105 tablets by ity of disintegrat 00:00: mouth at [place] tablet 00 bedtime. [facility] al Branch clonazePAM 2019-0 Yes [id number] .5mg Take 2 [facility] 0.25 mg 7-26 105 tablets by ity of disintegrat 00:00: mouth at [place] tablet 00 bedtime. [facility] al Branch clonazePAM 2019-0 Yes [id number] .5mg Take 2 [facility] 0.25 mg 7-26 105 tablets by ity of disintegrat 00:00: mouth at [place] tablet 00 bedtime. [facility] al Branch clonazePAM 2019-0 Yes [id number] .5mg Take 2 [facility] 0.25 mg 7-26 105 tablets by ity of disintegrat 00:00: mouth at [place] tablet 00 bedtime. [facility] al Branch clonazePAM 2019-0 Yes [id number] .5mg Take 2 [facility] 0.25 mg 7-26 105 tablets by ity of disintegrat 00:00: mouth at [place] tablet 00 bedtime. [facility] al Branch clonazePAM 2019-0 Yes [id number] .5mg Take 2 [facility] 0.25 mg 7-26 105 tablets by ity of disintegrat 00:00: mouth at [place] tablet 00 bedtime. [facility] al Branch clonazePAM 2019-0 Yes [id number] .5mg Take 2 [facility] 0.25 mg 7-26 105 tablets by ity of disintegrat 00:00: mouth at [place] tablet 00 bedtime. Medic al Branch clonazePAM 2019-0 Yes [id number] .5mg Take 2 [facility] 0.25 mg 7-26 105 tablets by ity of disintegrat 00:00: mouth at [place] tablet 00 bedtime. [facility] Branch clonazePAM 2019-0 Yes [id number] .5mg Take 2 [facility] 0.25 mg 7-26 105 tablets by ity of disintegrat 00:00: mouth at [place] tablet 00 bedtime. [facility] Branch clonazePAM 2019-0 Yes [id number] .5mg Take 2 [facility] 0.25 mg 7-26 105 tablets by ity of disintegrat 00:00: mouth at [place] tablet 00 bedtime. [facility] Branch spironolact 2019-0 Yes Univer s one 25 mg 4-11 ity of tablet 00:00: [place] 00 [place] [facility] [facility] sp[facility]act 2019-0 Yes Univer s one 25 mg 4-11 ity of tablet 00:00: [address] spironolact 2019-0 Yes Univer s one 25 mg 4-11 ity of tablet 00:00: [address] spironolact 2019-0 Yes Univer s one 25 mg 4-11 ity of tablet 00:00: [address] spironolact 2019-0 Yes Univer s one 25 mg 4-11 ity of tablet 00:00: [address] spironolact 2019-0 Yes Univer s one 25 mg 4-11 ity of tablet 00:00: [address] spironolact 2019-0 Yes Univer s one 25 mg 4-11 ity of tablet 00:00: [place] [facility] spironolact 2019-0 Yes Univer s one 25 mg 4-11 ity of tablet 00:00: [address] Branch spironolact 2019-0 Yes Univer s one 25 mg 4-11 ity of tablet 00:00: [address] spironolact 2019-0 Yes Univer s one 25 mg 4-11 ity of tablet 00:00: [address] spironolact 2019-0 Yes Univer s one 25 mg 4-11 ity of tablet 00:00: [address] spironolact 2019-0 Yes Univer s one 25 mg 4-11 ity of tablet 00:00: [place] [facility] spironolact 2019-0 Yes Univer s one 25 mg 4-11 ity of tablet 00:00: [place] [facility] spironolact 2019-0 Yes Univer s one 25 mg 4-11 ity of tablet 00:00: [place] [facility] spironolact 2019-0 Yes Univer s one 25 mg 4-11 ity of tablet 00:00: [place] [facility] spironolact 2019-0 Yes Univer s one 25 mg 4-11 ity of tablet 00:00: [place] [facility] spironolact 2019-0 Yes Univer s one 25 mg 4-11 ity of tablet 00:00: [place] [facility] spironolact 2019-0 Yes Univer s one 25 mg 4-11 ity of tablet 00:00: [place] [facility] spironolact 2019-0 Yes Univer s one 25 mg 4-11 ity of tablet 00:00: [place] [address] [facility] spironolact 2019-0 Yes Univer s one 25 mg 4-11 ity of tablet 00:00: [place] [facility] spironolact 2019-0 Yes Univer s one 25 mg 4-11 ity of tablet 00:00: [place] [facility] spironolact 2019-0 Yes Univer s one 25 mg 4-11 ity of tablet 00:00: [place] [facility] spironolact 2019-0 Yes Univer s one 25 mg 4-11 ity of tablet 00:00: [place] [facility] spironolact 2019-0 Yes Univer s one 25 mg 4-11 ity of tablet 00:00: [place] [facility] spironolact 2019-0 Yes Un[facility] s one 25 mg 4-11 ity of tablet 00:00: [place] [facility] spironolact 2019-0 Yes [facility] one 25 mg 4-11 ity of tablet 00:00: [place] [facility] spironolact 2019-0 Yes [facility] s one 25 mg 4-11 ity of tablet 00:00: [place] [facility] spironolact 2019-0 Yes Un[facility] s one 25 mg 4-11 ity of tablet 00:00: [place] [facility] spironolact 2019-0 Yes Univer s one 25 mg 4-11 ity of tablet 00:00: [place] [facility] spironolact 2019-0 Yes Univer s one 25 mg 4-11 ity of tablet 00:00: [place] [facility] spironolact 2019-0 Yes Univer s one 25 mg 4-11 ity of tablet 00:00: [place] [facility] spironolact 2019-0 Yes Univer s one 25 mg 4-11 ity of tablet 00:00: [place] [address] [facility] spironolact 2019-0 Yes Univer s one 25 mg 4-11 ity of tablet 00:00: [place] [facility] spironolact 2019-0 Yes Univer s one 25 mg 4-11 ity of tablet 00:00: [place] [address] [facility] spironolact 2019-0 Yes Univer s one 25 mg 4-11 ity of tablet 00:00: [place] [address] [facility] spironolact 2019-0 Yes Univer s one 25 mg 4-11 ity of tablet 00:00: [place] [address] [facility] spironolact 2019-0 Yes Univer s one 25 mg 4-11 ity of tablet 00:00: [place] [address] [facility] spironolact 2019-0 Yes Univer s one 25 mg 4-11 ity of tablet 00:00: [place] [address] [facility] spironolact 2019-0 Yes Univer [facility] one 25 mg 4-11 ity of tablet 00:00: [place] [address] [facility] spironolact 2019-0 Yes Univer s one 25 mg 4-11 ity of tablet 00:00: [place] [address] [facility] spironolact 2019-0 Yes Univer s one 25 mg 4-11 ity of tablet 00:00: [place] [address] [facility] spironolact 2019-0 Yes Univer s one 25 mg 4-11 ity of tablet 00:00: [place] [facility] spironolact 2019-0 Yes Univer s one 25 mg 4-11 ity of tablet 00:00: [place] [address] [facility] spironolact 2019-0 Yes Univer s one 25 mg 4-11 ity of tablet 00:00: [place] [facility] spironolact 2019-0 Yes Univer s one 25 mg 4-11 ity of tablet 00:00: [place] [address] [facility] spironolact 2019-0 Yes Univer s one 25 mg 4-11 ity of tablet 00:00: [place] [address] [facility] spironolact 2019-0 Yes Univer s one 25 mg 4-11 ity of tablet 00:00: [place] [facility] spironolact 2019-0 Yes Univer s one 25 mg 4-11 ity of tablet 00:00: [place] [facility] spironolact 2019-0 Yes Univer s one 25 mg 4-11 ity of tablet 00:00: [place] [facility] spironolact 2019-0 Yes Univer s one 25 mg 4-11 ity of tablet 00:00: [place] [facility] spironolact 2019-0 Yes Univer s one 25 mg 4-11 ity of tablet 00:00: [place] [facility] spironolact 2019-0 Yes Univer s one 25 mg 4-11 ity of tablet 00:00: [place] [address] [facility] spironolact 2019-0 Yes Univer s one 25 mg 4-11 ity of tablet 00:00: [place] [address] [facility] spironolact 2019-0 Yes Univer s one 25 mg 4-11 ity of tablet 00:00: [place] [address] [facility] spironolact 2019-0 Yes Univer s one 25 mg 4-11 ity of tablet 00:00: [place] [address] [facility] spironolact 2019-0 Yes Univer [facility] one 25 mg 4-11 ity of tablet 00:00: [place] [address] [facility] spironolact 2019-0 Yes Univer s one 25 mg 4-11 ity of tablet 00:00: [place] [address] [facility] spironolact 2019-0 Yes Univer s one 25 mg 4-11 ity of tablet 00:00: [place] [address] [facility] spironolact 2019-0 Yes Univer s one 25 mg 4-11 ity of tablet 00:00: [place] 00 [facility] spironolact 2019-0 Yes Univer s one 25 mg 4-11 ity of tablet 00:00: [place] [address] [facility] spironolact 2019-0 Yes Univer s one 25 mg 4-11 ity of tablet 00:00: [place] [address] [facility] spironolact 2019-0 Yes Univer s one 25 mg 4-11 ity of tablet 00:00: [place] 00 [facility] spironolact 2019-0 Yes Univer s one 25 mg 4-11 ity of tablet 00:00: [place] [address] [facility] spironolact 2019-0 Yes Univer s one 25 mg 4-11 ity of tablet 00:00: [place] 00 [facility] spironolact 2019-0 Yes Univer s one 25 mg 4-11 ity of tablet 00:00: [place] 00 [facility] spironolact 2019-0 Yes Univer s one 25 mg 4-11 ity of tablet 00:00: [place] [address] [facility] spironolact 2019-0 Yes Univer s one 25 mg 4-11 ity of tablet 00:00: [place] [address] [facility] spironolact 2019-0 Yes Univer s one 25 mg 4-11 ity of tablet 00:00: [place] [address] [facility] spironolact 2019-0 Yes Univer s one 25 mg 4-11 ity of tablet 00:00: [place] [address] [facility] spironolact 2019-0 Yes Univer s one 25 mg 4-11 ity of tablet 00:00: [place] [address] [facility] spironolact 2019-0 Yes Univer s one 25 mg 4-11 ity of tablet 00:00: [place] [address] [facility] spironolact 2019-0 Yes Univer s one 25 mg 4-11 ity of tablet 00:00: [place] [address] [facility] spironolact 2019-0 Yes Univer s one 25 mg 4-11 ity of tablet 00:00: [place] [address] [facility] spironolact 2019-0 Yes Univer s one 25 mg 4-11 ity of tablet 00:00: [place] [address] [facility] spironolact 2019-0 Yes Univer s one 25 mg 4-11 ity of tablet 00:00: [place] [address] [facility] spironolact 2019-0 Yes Univer s one 25 mg 4-11 ity of tablet 00:00: [place] [address] [facility] spironolact 2019-0 Yes Univer s one 25 mg 4-11 ity of tablet 00:00: [place] [address] [facility] spironolact 2019-0 Yes Univer s one 25 mg 4-11 ity of tablet 00:00: [place] [address] [facility] spironolact 2019-0 Yes Univer s one 25 mg 4-11 ity of tablet 00:00: [place] [address] [facility] spironolact 2019-0 Yes Univer s one 25 mg 4-11 ity of tablet 00:00: [place] [address] [facility] tamsulosin 2019-0 Yes Univers 0.4 mg 24 4-09 ity of hr capsule 00:00: [place] [address] [facility] tamsulosin 2019-0 Yes Univers 0.4 mg 24 4-09 ity of hr capsule 00:00: [place] [facility] tamsulosin 2019-0 Yes Univers 0.4 mg 24 4-09 ity of hr capsule 00:00: [place] [facility] tamsulosin 2019-0 Yes Univers 0.4 mg 24 4-09 ity of hr capsule 00:00: [place] [facility] tamsulosin 2019-0 Yes Univers 0.4 mg 24 4-09 ity of hr capsule 00:00: [place] [facility] tamsulosin 2019-0 Yes Univers 0.4 mg 24 4-09 ity of hr capsule 00:00: [place] [facility] tamsulosin 2019-0 Yes Univers 0.4 mg 24 4-09 ity of hr capsule 00:00: [place] [facility] tamsulosin 2019-0 Yes Univers 0.4 mg 24 4-09 ity of hr capsule 00:00: [place] [address] [facility] tamsulosin 2019-0 Yes Univers 0.4 mg 24 4-09 ity of hr capsule 00:00: [place] [facility] tamsulosin 2019-0 Yes Univers 0.4 mg 24 4-09 ity of hr capsule 00:00: [place] [address] [facility] tamsulosin 2019-0 Yes Univers 0.4 mg 24 4-09 ity of hr capsule 00:00: [place] [facility] tamsulosin 2019-0 Yes Univers 0.4 mg 24 4-09 ity of hr capsule 00:00: [place] [facility] tamsulosin 2019-0 Yes Univers 0.4 mg 24 4-09 ity of hr capsule 00:00: [place] [facility] tamsulosin 2019-0 Yes Univers 0.4 mg 24 4-09 ity of hr capsule 00:00: [place] [facility] tamsulosin 2019-0 Yes Univers 0.4 mg 24 4-09 ity of hr capsule 00:00: [place] [address] [facility] tamsulosin 2019-0 Yes Univers 0.4 mg 24 4-09 ity of hr capsule 00:00: [place] [address] [facility] tamsulosin 2019-0 Yes Univers 0.4 mg 24 4-09 ity of hr capsule 00:00: [place] [address] [facility] tamsulosin 2019-0 Yes Univers 0.4 mg 24 4-09 ity of hr capsule 00:00: [place] [address] [facility] tamsulosin 2019-0 Yes Univers 0.4 mg 24 4-09 ity of hr capsule 00:00: [place] [facility] tamsulosin 2019-0 Yes Univers 0.4 mg 24 4-09 ity of hr capsule 00:00: [place] [facility] tamsulosin 2019-0 Yes Univers 0.4 mg 24 4-09 ity of hr capsule 00:00: [place] [facility] tamsulosin 2019-0 Yes Univers 0.4 mg 24 4-09 ity of hr capsule 00:00: [place] [facility] tamsulosin 2019-0 Yes Univers 0.4 mg 24 4-09 ity of hr capsule 00:00: [place] [facility] tamsulosin 2019-0 Yes Univers 0.4 mg 24 4-09 ity of hr capsule 00:00: [place] [facility] tamsulosin 2019-0 Yes Univers 0.4 mg 24 4-09 ity of hr capsule 00:00: [place] [facility] tamsulosin 2019-0 Yes Univers 0.4 mg 24 4-09 ity of hr capsule 00:00: [place] [facility] tamsulosin 2019-0 Yes Univers 0.4 mg 24 4-09 ity of hr capsule 00:00: [place] [facility] tamsulosin 2019-0 Yes Univers 0.4 mg 24 4-09 ity of hr capsule 00:00: [place] [facility] tamsulosin 2019-0 Yes Univers 0.4 mg 24 4-09 ity of hr capsule 00:00: [place] [facility] tamsulosin 2019-0 Yes Univers 0.4 mg 24 4-09 ity of hr capsule 00:00: [place] [facility] tamsulosin 2019-0 Yes Univers 0.4 mg 24 4-09 ity of hr capsule 00:00: [place] [facility] tamsulosin 2019-0 Yes Univers 0.4 mg 24 4-09 ity of hr capsule 00:00: [place] [facility] tamsulosin 2019-0 Yes Univers 0.4 mg 24 4-09 ity of hr capsule 00:00: [place] [facility] tamsulosin 2019-0 Yes Univers 0.4 mg 24 4-09 ity of hr capsule 00:00: [place] [address] [facility] tamsulosin 2019-0 Yes Univers 0.4 mg 24 4-09 ity of hr capsule 00:00: [place] [facility] tamsulosin 2019-0 Yes Univers 0.4 mg 24 4-09 ity of hr capsule 00:00: [place] [facility] tamsulosin 2019-0 Yes Univers 0.4 mg 24 4-09 ity of hr capsule 00:00: [place] [facility] tamsulosin 2019-0 Yes Univers 0.4 mg 24 4-09 ity of hr capsule 00:00: [place] [facility] tamsulosin 2019-0 Yes Univers 0.4 mg 24 4-09 ity of hr capsule 00:00: [place] [facility] tamsulosin 2019-0 Yes Univers 0.4 mg 24 4-09 ity of hr capsule 00:00: [place] [facility] tamsulosin 2019-0 Yes Univers 0.4 mg 24 4-09 ity of hr capsule 00:00: [place] [address] [facility] tamsulosin 2019-0 Yes Univers 0.4 mg 24 4-09 ity of hr capsule 00:00: [place] [facility] tamsulosin 2019-0 Yes Univers 0.4 mg 24 4-09 ity of hr capsule 00:00: [place] [address] [facility] tamsulosin 2019-0 Yes Univers 0.4 mg 24 4-09 ity of hr capsule 00:00: [place] [facility] tamsulosin 2019-0 Yes Univers 0.4 mg 24 4-09 ity of hr capsule 00:00: [place] [address] [facility] tamsulosin 2019-0 Yes Univers 0.4 mg 24 4-09 ity of hr capsule 00:00: [place] [address] [facility] tamsulosin 2019-0 Yes Univers 0.4 mg 24 4-09 ity of hr capsule 00:00: [place] [facility] tamsulosin 2019-0 Yes Univers 0.4 mg 24 4-09 ity of hr capsule 00:00: [place] [facility] tamsulosin 2019-0 Yes Univers 0.4 mg 24 4-09 ity of hr capsule 00:00: [place] [address] [facility] tamsulosin 2019-0 Yes Univers 0.4 mg 24 4-09 ity of hr capsule 00:00: [place] [facility] tamsulosin 2019-0 Yes Univers 0.4 mg 24 4-09 ity of hr capsule 00:00: [place] [address] [facility] tamsulosin 2019-0 Yes Univers 0.4 mg 24 4-09 ity of hr capsule 00:00: [place] [address] [facility] tamsulosin 2019-0 Yes Univers 0.4 mg 24 4-09 ity of hr capsule 00:00: [place] [address] [facility] tamsulosin 2019-0 Yes Univers 0.4 mg 24 4-09 ity of hr capsule 00:00: [place] [facility] tamsulosin 2019-0 Yes Univers 0.4 mg 24 4-09 ity of hr capsule 00:00: [place] [facility] tamsulosin 2019-0 Yes Univers 0.4 mg 24 4-09 ity of hr capsule 00:00: [place] [facility] tamsulosin 2019-0 Yes Univers 0.4 mg 24 4-09 ity of hr capsule 00:00: [place] [facility] tamsulosin 2019-0 Yes Univers 0.4 mg 24 4-09 ity of hr capsule 00:00: [place] [facility] tamsulosin 2019-0 Yes Univers 0.4 mg 24 4-09 ity of hr capsule 00:00: [place] [facility] tamsulosin 2019-0 Yes Univers 0.4 mg 24 4-09 ity of hr capsule 00:00: [place] [facility] tamsulosin 2019-0 Yes Univers 0.4 mg 24 4-09 ity of hr capsule 00:00: [place] [facility] tamsulosin 2019-0 Yes Univers 0.4 mg 24 4-09 ity of hr capsule 00:00: [place] [facility] tamsulosin 2019-0 Yes Univers 0.4 mg 24 4-09 ity of hr capsule 00:00: [place] [facility] tamsulosin 2019-0 Yes Univers 0.4 mg 24 4-09 ity of hr capsule 00:00: [place] [facility] tamsulosin 2019-0 Yes Univers 0.4 mg 24 4-09 ity of hr capsule 00:00: [place] [facility] tamsulosin 2019-0 Yes Univers 0.4 mg 24 4-09 ity of hr capsule 00:00: [place] [facility] tamsulosin 2019-0 Yes Univers 0.4 mg 24 4-09 ity of hr capsule 00:00: [place] [facility] tamsulosin 2019-0 Yes Univers 0.4 mg 24 4-09 ity of hr capsule 00:00: [place] [facility] tamsulosin 2019-0 Yes Univers 0.4 mg 24 4-09 ity of hr capsule 00:00: [place] [facility] tamsulosin 2019-0 Yes Univers 0.4 mg 24 4-09 ity of hr capsule 00:00: [place] [facility] tamsulosin 2019-0 Yes Univers 0.4 mg 24 4-09 ity of hr capsule 00:00: [place] [facility] tamsulosin 2019-0 Yes Univers 0.4 mg 24 4-09 ity of hr capsule 00:00: [place] [facility] tamsulosin 2019-0 Yes Univers 0.4 mg 24 4-09 ity of hr capsule 00:00: [place] [facility] tamsulosin 2019-0 Yes Univers 0.4 mg 24 4-09 ity of hr capsule 00:00: [place] [facility] tamsulosin 2019-0 Yes Univers 0.4 mg 24 4-09 ity of hr capsule 00:00: [place] [facility] tamsulosin 2019-0 Yes Univers 0.4 mg 24 4-09 ity of hr capsule 00:00: [place] [facility] tamsulosin 2019-0 Yes Univers 0.4 mg 24 4-09 ity of hr capsule 00:00: [place] [facility] tamsulosin 2019-0 Yes Univers 0.4 mg 24 4-09 ity of hr capsule 00:00: [place] [facility] tamsulosin 2019-0 Yes Univers 0.4 mg 24 4-09 ity of hr capsule 00:00: [place] [facility] tamsulosin 2019-0 Yes Univers 0.4 mg 24 4-09 ity of hr capsule 00:00: [place] [facility] TOPIRAMATE 2019-0 Yes [id number] TAKE 1 Univers 25 mg 3-01 TABLET BY ity of tablet 00:00: MOUTH TWO [place] [facility] DAILY [facility] TOPIRAMATE 2019-0 Yes [id number] TAKE 1 Univers 25 mg 3-01 TABLET BY ity of tablet 00:00: MOUTH TWO [place] [facility] DA[facility] TOPIRAMATE 2019-0 Yes [id number] TAKE 1 [facility] 25 mg 3-01 TABLET BY ity of tablet 00:00: MOUTH TWO [place] [facility] DA[facility] TOPIRAMATE 2019-0 Yes [id number] TAKE 1 [facility] 25 mg 3-01 TABLET BY ity of tablet 00:00: MOUTH TWO [place] [facility] DA[facility] TOPIRAMATE 2019-0 Yes [id number] TAKE 1 Univers 25 mg 3-01 TABLET BY ity of tablet 00:00: MOUTH TWO [place] [facility] DA[facility] TOPIRAMATE 2019-0 Yes [id number] TAKE 1 [facility] 25 mg 3-01 TABLET BY ity of tablet 00:00: MOUTH TWO [place] 00 TIMES Medical DAILY Branch TOPIRAMATE Yes [id number] TAKE 1 Univers 25 mg 3-01 TABLET BY ity of tablet 00:00: MOUTH TWO [place] TIMES Medical DAILY Branch TOPIRAMATE Yes [id number] TAKE 1 [facility] 25 mg 3-01 TABLET BY ity of tablet 00:00: MOUTH TWO [place] TIMES Medical DAILY Branch TOPIRAMATE 2019- No [id number] TAKE 1 Univers 25 mg 3-01 08-28 TABLET BY ity of tablet 00:00: 00:00 MOUTH TWO [place] 00 :00 TIMES Medical DAILY Branch testosteron [...] Pumps to ity of g/Actuation 00:00: area(s) [place] as (1 %) gel 00 daily. Medical [...] Immunizations Ordered Filled Immunization Date Status Comments [facility] e Immunization Name Name SARS-COV-2 COVID-19 2021-03-31 Completed Unive rsity of MODERNA BOOSTER 00:00:00 [place] [facility] VACCINE [facility] SARS-COV-2 COVID-19 2020-06-25 Completed Unive rsity [...] Unive rsity of MODERNA VACCINE 00:00:00 [facility] ical Branch SARS-COV-2 COVID-19 2020-05-28 Completed Unive rsity of MODERNA VACCINE 00:00:00 [facility] ical Branch SARS-COV-2 COVID-19 2020-05-28 Completed Unive rsity of MODERNA VACCINE 00:00:00 [facility] Branch SARS-COV-2 COVID-19 2020-05-28 Completed Unive rsity of MODERNA VACCINE 00:00:00 [facility] Branch SARS-COV-2 COVID-19 2020-05-28 Completed Unive rsity of MODERNA VACCINE 00:00:00 [facility] [place] [facility] Vital Signs Vital Name Observation Time Observation Value Comments Source Systolic blood 2020-07-19 21:14:00 98 mm[Hg] Univer sity of pressure [facility] [place] [facility] Diastolic blood 2020-07-19 21:14:00 65 mm[Hg] Unive rsity of pressure [facility] Heart rate 2020-07-19 21:14:00 75 /min [facility] Oxygen saturation in 2020-07-19 21:14:00 96 /min [facility] of Arterial blood by [facility] Pulse oximetry Branch Systolic blood 2020-01-19 20:45:00 119 mm[Hg] Univer sity of pressure [facility] [place] [facility] Diastolic blood 2020-01-19 20:45:00 84 mm[Hg] Unive rsity of pressure [facility] Heart rate 2020-01-19 20:45:00 82 /min [facility] Body temperature 2020-01-19 20:45:00 37.22 [facility] 2020-01-19 20:45:00 182.9 cm [facility] Body weight 2020-01-19 20:45:00 88.905 kg [facility] BMI 2020-01-19 20:45:00 26.58 kg/m2 [facility] Oxygen saturation in 2020-01-19 20:45:00 96 /min [facility] of Arterial blood by [facility] Pulse oximetry Branch Systolic blood 2018-12-26 22:04:00 139 mm[Hg] Univer sity of pressure [facility] Diastolic blood 2018-12-26 22:04:00 83 mm[Hg] Unive rsity of pressure [place] [facility] Heart rate 2018-12-26 22:04:00 62 /min [facility] [place] [facility] Body temperature 2018-12-26 22:04:00 36.39 Pretty Univ ersity of [place] [facility] Respiratory rate 2018-12-26 22:04:00 17 /min Univ ersity of [place] [facility] Body weight 2018-12-26 22:04:00 87.998 kg [facility] [place] [facility] BMI 2018-12-26 22:04:00 26.31 kg/m2 [facility] [place] [facility] Systolic blood 2020 15:37:00 115 mm[Hg] Univer sity of pressure [place] [facility] Diastolic blood 2020 15:37:00 78 mm[Hg] Unive rsity of pressure [place] [facility] Heart rate 2020 15:37:00 105 /min [facility] [place] [facility] Respiratory rate 2020 15:37:00 14 /min Univ ersity of [facility] Body height 2020 15:37:00 182.9 cm [facility] [place] [facility] Body weight 2020 15:37:00 89.54 kg [facility] [place] [facility] BMI 2020 15:37:00 26.77 kg/m2 [facility] [place] [facility] Systolic blood 2020-07-19 21:14:00 98 mm[Hg] Univer sity of pressure [place] [facility] Diastolic blood 2020-07-19 21:14:00 65 mm[Hg] Unive rsity of pressure [place] [facility] Heart rate 2020-07-19 21:14:00 75 /min [facility] [place] [facility] Oxygen saturation in 2020-07-19 21:14:00 96 /min [facility] of Arterial blood by [facility] Pulse oximetry Branch Systolic blood 2020-02-02 15:06:00 114 mm[Hg] Univer sity of pressure [place] [facility] Diastolic blood 2020-02-02 15:06:00 78 mm[Hg] Unive rsity of pressure [place] [facility] Heart rate 2020-02-02 15:06:00 103 /min Universi ty of [facility] Respiratory rate 2020-02-02 15:06:00 19 /min Univ ers[facility] [place] [facility] Body weight 2020-02-02 15:06:00 88.406 kg Universi ty of [facility] BMI 2020-02-02 15:06:00 26.43 kg/m2 Universi ty of [facility] Systolic blood 2020-01-19 20:45:00 119 mm[Hg] Univer sity of pressure [facility] Diastolic blood 2020-01-19 20:45:00 84 mm[Hg] Unive rsity of pressure [facility] Heart rate 2020-01-19 20:45:00 82 /min Universi ty of [facility] Body temperature 2020-01-19 20:45:00 37.22 Pretty Univ ersity of [facility] Body height 2020-01-19 20:45:00 182.9 cm Universi ty of [facility] Body weight 2020-01-19 20:45:00 88.905 kg Universi ty of [facility] BMI 2020-01-19 20:45:00 26.58 kg/m2 Universi ty of [facility] Oxygen saturation in 2020-01-19 20:45:00 96 /min [facility] of Arterial blood by [facility] Pulse oximetry Branch Systolic blood 2019-12-29 15:03:00 126 mm[Hg] Univer sity of pressure [facility] Diastolic blood 2019-12-29 15:03:00 79 mm[Hg] Unive rsity of pressure [facility] Heart rate 2019-12-29 15:03:00 84 /min Universi ty of [facility] Respiratory rate 2019-12-29 15:03:00 17 /min Univ ersity of [facility] Body weight 2019-12-29 15:03:00 87.635 kg Universi ty of [facility] BMI 2019-12-29 15:03:00 26.20 kg/m2 Universi ty of [facility] Systolic blood 2019-11-24 15:01:00 131 mm[Hg] Univer sity of pressure [facility] Diastolic blood 2019-11-24 15:01:00 83 mm[Hg] Unive rsity of pressure [facility] Heart rate 2019-11-24 15:01:00 61 /min Universi ty of [facility] Respiratory rate 2019-11-24 15:01:00 18 /min Univ ersity of [facility] Body weight 2019-11-24 15:01:00 92.08 kg [facility] [place] [facility] BMI 2019-11-24 15:01:00 27.53 kg/m2 [facility] [place] [facility] Branch Systolic blood 2019-06-08 16:12:00 122 mm[Hg] [facility] Diastolic blood 2019-06-08 16:12:00 81 mm[Hg] [facility] Heart rate 2019-06-08 16:12:00 57 /min [facility] [place] [facility] Respiratory rate 2019-06-08 16:12:00 17 /min [facility] [place] [facility] Body weight 2019-06-08 16:12:00 89.359 kg [facility] [place] [facility] BMI 2019-06-08 16:12:00 26.72 kg/m2 [facility] [place] [facility] Systolic blood 2019-04-07 16:01:00 116 mm[Hg] [facility] Diastolic blood 2019-04-07 16:01:00 74 mm[Hg] [facility] Heart rate 2019-04-07 16:01:00 67 /min [facility] [place] [facility] Respiratory rate 2019-04-07 16:01:00 18 /min [facility] [place] [facility] Body height 2019-04-07 16:01:00 182.9 cm [facility] [place] [facility] Body weight 2019-04-07 16:01:00 89.359 kg [facility] [place] [facility] BMI 2019-04-07 16:01:00 26.72 kg/m2 [facility] [place] [facility] Systolic blood 2019-03-10 15:50:00 127 mm[Hg] [facility] Diastolic blood 2019-03-10 15:50:00 84 mm[Hg] [facility] Heart rate 2019-03-10 15:50:00 89 /min [facility] [place] [facility] Respiratory rate 2019-03-10 15:50:00 18 /min [facility] [place] [facility] Body height 2019-03-10 15:50:00 182.9 cm [facility] [place] [facility] Body weight 2019-03-10 15:50:00 88.814 kg [facility] [place] [facility] BMI 2019-03-10 15:50:00 26.56 kg/m2 [facility] [place] [facility] Systolic blood 2019-02-10 15:16:00 127 mm[Hg] [facility] Diastolic blood 2019-02-10 15:16:00 79 mm[Hg] [facility] [place] [facility] Heart rate 2019-02-10 15:16:00 100 /min [facility] [place] [facility] Respiratory rate 2019-02-10 15:16:00 20 /min [facility] [place] [facility] Body height 2019-02-10 15:16:00 182.9 cm [facility] [place] [facility] Body weight 2019-02-10 15:16:00 90.719 kg [facility] [place] [facility] BMI 2019-02-10 15:16:00 27.12 kg/m2 [facility] [place] [facility] Systolic blood 2019-01-06 15:07:00 114 mm[Hg] [facility] Diastolic blood 2019-01-06 15:07:00 79 mm[Hg] [facility] [place] [facility] Heart rate 2019-01-06 15:07:00 89 /min [facility] [place] [facility] Respiratory rate 2019-01-06 15:07:00 17 /min [facility] [place] [facility] Body weight 2019-01-06 15:07:00 87.544 kg [facility] [place] [facility] BMI 2019-01-06 15:07:00 26.18 kg/m2 [facility] [place] [facility] Body temperature 2018-12-26 22:04:00 36.39 Pretty [facility] [place] [facility] Systolic blood 2018-12-09 15:09:00 118 mm[Hg] [facility] Diastolic blood 2018-12-09 15:09:00 80 mm[Hg] [facility] [place] [facility] Heart rate 2018-12-09 15:09:00 58 /min [facility] [place] [facility] Respiratory rate 2018-12-09 15:09:00 17 /min [facility] [place] [facility] Body weight 2018-12-09 15:09:00 87.998 kg [facility] [place] [facility] BMI 2018-12-09 15:09:00 26.31 kg/m2 [facility] Body height 2018-09-22 18:03:00 182.9 cm [facility] Body temperature 2018 22:30:00 36.22 Pretty [facility] Procedures Procedure Date / Time Performing Clinician Source Performed SARS-COV-2 COVID-19 2021-03-31 22:17:29 Doctor Unassigned, [facility] VACCINE BOOSTER,0.25ML,IM [facility] (MODERNA) VALPROIC ACID, TOTAL 2020-07-19 21:54:00 [facility] SARS-COV-2 COVID-19 2020-06-25 20:02:30 Doctor Unassigned, [facility] VACCINE,0.5ML,IM (MODERNA) [facility] SARS-COV-2 COVID-19 2020-05-28 20:50:30 [facility],IM (MODERNA) Medic al Branch VALPROIC ACID, TOTAL 2020-02-07 15:21:00 Hugo Dyer [facility] CBC WITH DIFF 2020-02-07 15:[facility] 2020-02-07 15:21:00 Hugo Dyer [facility] (A1C) [facility] THYROID STIMULATING 2020-02-07 15:21:00 Hugo Dyer [facility] HORMONE [facility] COMP. METABOLIC PANEL 2020-02-07 15:21:00 Gomez [facility] ([id number]) [facility] LIPID PANEL (12604)(TOTAL 2020-02-07 [facility], [facility] TRIGLYCERIDES, HDL) CBC WITH DIFF 2020-02-07 15:21:00 Gomez [facility] COMP. METABOLIC PANEL 2020-02-07 15:21:00 Gomez [facility] ([id number]) [facility] GLYCOSYLATED HEMOGLOBIN 2020-02-07 15:21:00 Hugo Dyer [facility] (A1C) [facility] LIPID PANEL (26554)(TOTAL 2020-02-07 15:[facility] CHOLE[facility]OL, [facility] TRIGLYCERIDES, HDL) VALPROIC ACID, TOTAL 2020-02-07 15:21:00 Hugo Dyer [facility] THYROID STIMULATING 2020-02-07 15:21:00 Hugo Dyer [facility] HORMONE Medical Branch NOTICE OF PRIVACY 2020-02-07 14:56:54 Doctor Roger, [facility] PRACTICES [facility] CONSENT/REFUSAL FOR 2020-02-07 14:56:36 Doctor Duran [facility] DIAGNOSIS AND TREATMENT [facility] CONSENT/REFUSAL FOR 2020-02-07 14:56:36 Doctor Roger [facility] DIAGNOSIS AND TREATMENT [facility] ASSIGNMENT OF BENEFITS 2020-02-07 14:56:19 [facility] ASSIGNMENT OF BENEFITS 2020-02-07 14:56:19 Doctor Roger [facility] LIPID PANEL ([id number])(TOTAL 2019-02-20 15:50:00 Thong [facility] CHOLESTEROL, [facility] TRIGLYCERID[facility], HDL) GLYCOSYLATED HEMOGLOBIN 2019-02-20 15:50:00 Thong [facility] (A1C) Pilar Mancini [facility] NOTICE OF BILLING 2019-02-10 15:07:07 Doctor Duran, [facility] PRACTICES FOR MEDICARE [facility] PATIENTS [facility] PATIENT FINANCIAL 2019-02-10 15:06:44 Doctor Duran, [facility] POLICY [facility] NO SHOW OR MISSED 2019-02-10 15:06:16 Doctor Duran [facility] APPOINTMENT POLICY [facility] ACKNOWLEDGEMENT EXTERNAL PROVIDER RECORDS 2018-11-21 05:01:00 Doctor Duran [facility] Encounters Start End Encounter Admission Attending Care Care Encounter Source Date/Time Date/Time Type Type Clinicians Facility Department ID 2021-05-21 2021-05-21 [id number] 00[facility] 2021-04-23 2021-04-23 amb[facility] [id number] [facility] 2021-03-31 2021-03-31 Outpatient R ALBER [facility] [id number] Univers 16:00:00 15:47:40 EMILIANO [facility] 2021-03-31 2021-03-31 Imm/Inj Nurse, Adc Pob Immunization [facility] 1.2.840.114 [id number] Univers 15:47:30 15:47:40 Visit Emiliano Campo LENOX 350.1.13 .10 [facility] 4.2.7.2.686 Caden BLANCHARD [id number] La dical [address] 2021-01-17 2021-01-17 Outpatient R MAMADOU GIL [facility] [id number] Univers 15:40:00 15:40:00 MAMADOU GIL [id number] [facility] 2021-01-09 2021-01-09 Outpatient [facility] [id number] [facility] 2020-11-08 2020-11-08 Outpatient R [facility] [id number] Univers 10:45:00 10:45:00 [id number] [facility] 2020-11-08 2020-11-08 Outpatient R MAMI GODOY [facility] [id number] Univers 10:45:00 [facility] 2020-10-[facility] 2020-10-21 Outpatient [facility] [id number] [facility] 00:[facility]00 [facility] 2020 2020 Outpatient R [facility] [id number] Univers 10:45:00 10:45:00 [id number] [facility] 2020 2020 Outpatient R MAMI GODOY [facility] [id number] Univers 10:45:00 10:45:00 [facility] 2020 Travel 1.2.840.1 .2.904.696 [id number] Univers 00:00:00 00:00:00 28705.1.1 350.1.13.10 ity of 3.104.2.[place].16[place] 084.8 [place] .8 [place] 2020-09-12 2020-09-12 Outpatient R [facility] [id number] Univers 10:45:00 10:45:00 [id number] ity of [facility] 2020-09-12 2020-09-12 Outpatient R MAMI GODOY [facility] [id number] Univers 10:45:00 10:45:00 ity of [facility] 2020-09-06 2020-09-06 Outpatient R [facility] [id number] Univers 10:00:00 10:00:00 [id number] ity of [facility] 2020-09-05 2020-09-05 Outpatient R [facility] [id number] Univers 10:00:00 10:00:00 [id number] ity of [facility] 2020-08-30 2020-08-30 Outpatient R [facility] [id number] Univers 10:00:00 10:00:00 [id number] ity of [facility] 2020-07-26 2020-07-26 Telephone Louise Mayur.2.840.8 [id number] Univers 00:00:00 00:00:00 Mamadou Gene 83730.1.1 ity of 3.104.2.7 [place] .3.548224 Medica l .8 [place] 2020-07-19 2020-07-19 Office Louise Mayur.2.840.6 [id number] Univers 14:59:36 16:04:15 Visit Mamadou Gene 97261.1.1 ity of 3.104.2.7 [place] .3.548838 Medica l .8 [place] 2020-07-19 2020-07-19 Township Clerk Mamadou Gil 1.2.840.2 [id number] Univers 15:47:23 16:02:23 Visit 2, Alana Lab 98157.1.1 i ty of 3.104.2.7 [place] .3.312327 Medica l .8 [place] 2020-07-19 2020-07-19 Outpatient MAMADOU RIZVI [facility] [id number] Univers 15:00:00 15:00:00 MAMADOU GIL [id number] ity [facility] 2020-07-19 2020-07-19 Outpatient MAMADOU RIZVI [facility] [id number] Univers 15:00:00 15:00:00 [facility] 2020-07-19 2020-07-19 Travel 1.2.840.1 [id number] [id number] Univers 00:00:00 00:00:00 50001.1.1 350.1.13.10 ity of 3.104.2.[place].698 [place].589[place] 084.8 Medica l .8 [place] 2020-07-18 2020-07-18 Outpatient R [facility] [id number] Univers 10:00:00 10:00:00 [id number] ity [facility] 2020-07-18 2020-07-18 Outpatient R LORENZAJESSICAK [facility] [id number] Univers 10:00:00 10:00:00 ity [facility] 2020-07-12 2020-07-12 Outpatient R [facility] [id number] Univers 10:00:00 10:00:00 [id number] [facility] 2020-06-25 2020-06-25 [facility] [id number] Univers 14:10:00 14:10:00 IVÁN [id number] [facility] 2020-06-25 2020-06-25 Outpatient Mychal ALEGRIA [facility] [id number] Univers 14:10:00 14:10:00 [facility] 2020-06-25 2020-06-25 Imm/Inj Iván Alegria 1.2.840.1 [id number] Univers 14:00:29 14:01:18 Visit Nurse, Alana Pob Immunization 45306.1.1 ity of 3.104.2.7 [place] .3.260363 Medica l .8 [place] 2020-06-07 2020-06-07 Outpatient R [facility] [id number] Univers 10:00:00 10:00:00 [id number] ity [facility] 2020-06-07 2020-06-07 Outpatient R MAMI GODOY [facility] [id number] Univers 10:00:00 10:00:00 ity [facility] 2020-05-28 2020-05-28 [facility] [id number] Univers 15:00:00 15:00:00 IVÁN ity [facility] 2020-05-28 2020-05-28 Imm/Inj Airam, Rex Keith 1.2.840.1 [id number] Univers 14:46:27 14:49:49 Visit Nurse, Adc Pob Immunization 29444.1.1 ity of 3.104.2.7 [place] .3.537616 Medica l .8 [place] 2020-05-28 2020-05-28 [facility] [id number] Univers 09:10:00 09:10:00 IVÁN [id number] ity [facility] 2020-05-11 2020-05-11 Outpatient R [facility] [id number] Univers 17:40:00 17:40:00 [id number] ity [facility] 2020-05-11 2020-05-11 Outpatient R UNKNOWN, [facility] [id number] Univers 17:40:00 17:40:00 ATTENDING ity [facility] 2020-05-11 2020-05-11 Telemedici Shilpi Pop 1.2.840.5 [id number] Univers 15:55:08 16:15:08 ne Visit Unknown, Attending 33623.1.1 ity of Care, Provider 25 - Adult & Pedi Urgent 3.104.2.7 [place] .3.956829 Medica l .[address] [place] [address] 2020-04-26 2020-04-26 Outpatient R [facility] [id number] Univers 10:00:00 10:00:00 [id number] ity [facility] 2020-04-26 2020-04-26 Outpatient R MAMI GODOY [facility] [id number] Univers 10:00:00 10:00:00 ity of [facility] 2020-03-15 2020-03-15 Outpatient R [facility] [id number] Univers 10:00:00 10:00:00 ity of [facility] 2020-03-15 2020-03-15 Outpatient R MAMI OGDOY [facility] [id number] Univers 10:00:00 10:00:00 ity of [facility] 2020-02-16 2020-02-16 Outpatient R [facility] [id number] Univers 14:15:00 14:15:00 ity of [facility] 2020-02-16 2020-02-16 Outpatient R KAMILLA [facility] [id number] Univers 14:15:00 14:15:00 RADHA ity [facility] 2020-02-09 2020-02-09 Outpatient R [facility] [id number] Univers 10:00:00 10:00:00 [id number] ity of [facility] 2020-02-08 2020-02-08 Outpatient R [facility] [id number] Univers 10:00:00 10:00:00 [id number] ity of [facility] 2020-02-07 2020-02-07 Outpatient R [facility] [id number] Univers 10:30:00 10:30:00 [id number] ity of [facility] 2020-02-07 2020-02-07 [facility] [id number] Univers 10:30:00 10:30:00 ADRIAN [facility] 2020-02-07 2020-02-07 Township Clerk Adrian Araujo 1.2.840.9 [id number] Univers 09:57:45 10:12:45 Visit Pob, Adc Lab Main 32301.1.1 ity of 3.104.2.7 [place] .3.035924 Medica l 8 [place] 2020-02-07 2020-02-07 Orders Doctor 1.2.840.1 [id number] Univers 00:00:00 00:00:00 Only Unassigned, 59948.1.1 ity of [place] 3.104.2.7 [place] .3.682875 Medica l .8 [place] 2020-02-07 2020-02-07 Travel 1.2.840.1 1.2.987.447 [id number] Univers 00:00:00 00:00:00 67806.1.1 350.1.13.10 ity of 3.104.2.7 [place]7.3.698 [place] .3.253046 084.8 Medica l .8 [place] 2020-02-04 2020-02-04 Nurse Renetta, 1.2.840.3 [id number] Univers 00:00:00 00:00:00 Triage Ariana T 68531.1.1 ity of 3.104.2.7 [place] .3.854253 Medica l .8 [place] 2020-02-04 2020-02-04 Telephone Louise, 1.2.840.9 [id number] Univers 00:00:00 00:00:00 Mamadou Gene 58864.1.1 ity of 3.104.2.7 [place] .3.113669 Medica l .8 [place] 2020-02-02 2020-02-02 Outpatient R [facility] [id number] Univers 10:00:00 10:00:00 [id number] ity of [facility] 2020-02-02 2020-02-02 Outpatient R MAMI GODOY [facility] [id number] Univers 10:00:00 10:00:00 ity of [facility] 2020-02-02 2020-02-02 Travel 1.2.840.1 [id number] [id number] Univers 00:00:00 00:00:00 95160.1.1 350.1.13.10 ity of 3.104.2.7 [place]7.3.698 [place]3.514926 084.8 Medica l .8 [place] 2020-02-01 2020-02-01 Travel 1.2.840.1 1.2.384.136 [id number] Univers 00:00:00 00:00:00 07714.1.1 350.1.13.10 ity of 3.104.2.7 [place]7.3.698 [place] .3.654353 084.8 Medica l .8 [place] 2020-01-19 2020-01-19 Office Louise 1.2.840.9 [id number] Univers 14:42:27 16:01:19 Visit Mamadou Johns 92017.1.1 ity of 3.104.2.7 [place] .3.197439 Medica l .8 [place] 2020-01-19 2020-01-19 Outpatient MAMADOU GIL [facility] [id number] Univers 15:00:00 15:00:00 MAMADOU GIL [id number] ity of [facility] 2020-01-19 2020-01-19 Outpatient R MAMADOU GIL [facility] [id number] Univers 15:00:00 15:00:00 MAMADOU GIL ity of [facility] 2020-01-19 2020-01-19 Travel 1.2.840.1 1.2.811.271 [id number] Univers 00:00:00 00:00:00 81932.1.1 350.1.13.10 ity of 3.104.2.7 [place]7.3.698 [place] .3.396792 084.8 Medica l .8 [place] 2020-01-08 2020-01-08 Telephone Louise, 1.2.840.0 [id number] Univers 00:00:00 00:00:00 Mamadou Johns 17885.1.1 ity of 3.104.2.7 [place] .3.315910 Medica l .8 [place] 2019-12-29 2019-12-29 Outpatient R [facility] [id number] Univers 10:00:00 10:00:00 [id number] ity of [facility] 2019-12-29 2019-12-29 Outpatient R LORENZA MAMI [facility] [id number] Univers 10:00:00 10:00:00 ity of [facility] 2019-12-29 2019-12-29 Travel 1.2.840.1 1.2.009.427 [id number] Univers 00:00:00 00:00:00 34143.1.1 350.1.13.10 ity of 3.104.2.7 [place].3.698 [place] .3.254680 084.8 Medica l .8 [place] 2019-11-24 2019-11-24 Outpatient R [facility] [id number] Univers 10:00:00 10:00:00 [id number] ity of [facility] 2019-11-24 2019-11-24 Outpatient R RUCHIAARON JUNO [facility] [id number] Univers 10:00:00 10:00:00 ity of [facility] 2019-11-24 2019-11-24 Travel 1.2.840.1 [id number] [id number] Univers 00:00:00 00:00:00 10687.1.1 350.1.13.10 ity of 3.104.2.7 [place].3.698 [place] .3.148658 084.8 Medica l .8 [place] 2019-10-12 2019-10-12 Outpatient R [facility] [id number] Univers 12:45:00 12:45:00 [id number] ity of [facility] 2019-10-12 2019-10-12 Outpatient R LILLIAM [facility] [id number] Univers 12:45:00 12:45:00 ADRIAN ity of [facility] 2019-09-08 2019-09-08 Outpatient R [facility] [id number] Univers 09:15:00 09:15:00 [id number] ity of [facility] 2019-09-08 2019-09-08 Outpatient R MAMI GODOY [facility] [id number] Univers 09:15:00 09:15:00 ity of [facility] 2019-09-06 2019-09-06 Janice Gil, 1.2.840.3 [id number] Univers 00:00:00 00:00:00 Mamadou Gene 75119.1.1 ity of 3.104.2.7 [place] .3.298146 Medica l .8 [place] 2019-08-11 2019-08-11 Outpatient R MAMI GODOY [facility] [id number] Univers 10:00:00 10:00:00 ity of [facility] 2019-02-20 2019-02-20 Township Clerk Mami Godoy 1.2.840.1 [id number] Univers 10:14:05 10:29:05 Visit 1, Alana Lab 64569.1.1 i ty of 3.104.2.7 [place] .3.904413 Medica l .8 [place] 2019-02-10 2019-02-10 Orders Doctor 1.2.840.5 [id number] Univers 00:00:00 00:00:00 Only Unassigned, 59511.1.1 ity of [place] 3.104.2.7 [place] .3.532348 Medica l .8 [place] 2019-01-11 2019-01-11 Refill Louise, 1.2.840.2 [id number] Univers 00:00:00 00:00:00 Mamadou Gene 21079.1.1 ity of 3.104.2.7 [place] .3.399461 Medica l .8 [place] 2018-12-26 2018-12-26 Office Louise, 1.2.840.3 [id number] Univers 15:42:00 17:08:53 Visit Mamadou Gene 58547.1.1 ity of 3.104.2.7 [place] .3.946913 Medica l .8 [place] 2018-11-21 2018-11-21 Orders Doctor 1.2.840.0 [id number] Univers 00:00:00 00:00:00 Only Unassigned, 26019.1.1 ity of [place] 3.104.2.7 [place] .3.396597 Medica l .8 [place] 2018-09-16 2018-09-16 Telephone Louise, 1.2.840.2 [id number] Univers 00:00:00 00:00:00 Mamadou Gene 06729.1.1 ity of 3.104.2.7 [place] .3.644139 Medica l .8 [place] 2018 2018 Office Louise, 1.2.840.6 [id number] Univers 15:36:03 17:23:49 Visit Mamadou Gene 67062.1.1 ity of 3.104.2.7 [place] .3.600219 Medica l .8 Branch Results Test Description Test Time Test Comments Results Result Comments Source VALPROIC ACID, TOTAL 2020-07-19 23:16:00 Test Item Value Reference Range Interpretation Comme nts VALPROIC A (test code = 6412558296) 32 ug/mL 50-100 L JOEY (test code = JOEY) Toxic Range: ?Greater than 100 ug/mL Lab Interpretation (test code = 87101-2) [facility] [id number] 23:16:00 Test Item Value Reference Range Interpretation Comments VALPROIC A (test code = 32 ug/mL 50-100 L [id number]) JOEY (test code = JOEY) Toxic Range: ?Greater than 100 ug/mL Lab Interpretation (test Abnormal code = 94785-0) [facility] [id number] 23:16:00 Test Item Value Reference Range Interpretation Comments VALPROIC A (test code = 32 ug/mL 50-100 L [id number]) JOEY (test code = JOEY) Toxic Range: ?Greater than 100 ug/mL Lab Interpretation (test Abnormal code = 28650-8) [facility] [id number] 23:16:00 Test Item Value Reference Range Interpretation Comments VALPROIC A (test code = 32 ug/mL 50-100 L [id number]) JOEY (test code = JOEY) Toxic Range: ?Greater than 100 ug/mL Lab Interpretation (test Abnormal code = 59751-6) [facility] [id number] 23:16:00 Test Item Value Reference Range Interpretation Comments VALPROIC A (test code = 32 ug/mL 50-100 L [id number]) JOEY (test code = JOEY) Toxic Range: ?Greater than 100 ug/mL Lab Interpretation (test Abnormal code = 05479-9) [facility], [id number] 23:16:00 Test Item Value Reference Range Interpretation Comments VALPROIC A (test code = 32 ug/mL 50-100 L [id number]) JOEY (test code = JOEY) Toxic Range: ?Greater than 100 ug/mL Lab Interpretation (test Abnormal code = 35443-5) [facility] [id number] 17:48:00 Test Item Value Reference Range Interpretation Comments TSH (test code = See_Comment [Automated message] [id number]) The system [employer] generated this result transmitted ref erence range: 0.45 - 4 .70 mIU/L. The refe rence range was not u sed to interpret this result as normal/abnor mal. Lab Interpretation (test Normal code = 97090-3) [facility] [id number] 17:48:00 Test Item Value Reference Range Interpretation Comments TSH (test code = See_Comment [Automated message] [id number]) The system [employer] generated this result transmitted ref erence range: 0.45 - 4 .70 mIU/L. The refe rence range was not u sed to interpret this result as normal/abnor mal. Lab Interpretation (test Normal code = 06629-9) [facility] [id number] 17:48:00 Test Item Value Reference Range Interpretation Comments TSH (test code = See_Comment [Automated message] [id number]) The system [employer] generated this result transmitted ref erence range: 0.45 - 4 .70 mIU/L. The refe rence range was not u sed to interpret this result as normal/abnor mal. Lab Interpretation (test Normal code = 94474-4) [facility] [id number] 17:48:00 Test Item Value Reference Range Interpretation Comments TSH (test code = See_Comment [Automated message] [id number]) The system [employer] generated this result transmitted ref erence range: 0.45 - 4 .70 mIU/L. The refe rence range was not u sed to interpret this result as normal/abnor mal. Lab Interpretation (test Normal code = 53787-5) [facility] [id number] 17:48:00 Test Item Value Reference Range Interpretation Comments TSH (test code = See_Comment [Automated message] [id number]) The system [employer] generated this result transmitted ref erence range: 0.45 - 4 .70 mIU/L. The refe rence range was not u sed to interpret this result as normal/abnor mal. Lab Interpretation (test Normal code = 64501-5) [facility] [id number] 17:48:00 Test Item Value Reference Range Interpretation Comments TSH (test code = See_Comment [Automated message] [id number]) The system [employer] generated this result transmitted ref erence range: 0.45 - 4 .70 mIU/L. The refe rence range was not u sed to interpret this result as normal/abnor mal. Lab Interpretation (test Normal code = 93544-6) [facility] [id number] 17:48:00 Test Item Value Reference Range Interpretation Comments TSH (test code = See_Comment [Automated message] [id number]) The system [employer] generated this result transmitted ref erence range: 0.45 - 4 .70 mIU/L. The refe rence range was not u sed to interpret this result as normal/abnor mal. Lab Interpretation (test Normal code = 96561-8) [facility] [id number] 17:48:00 Test Item Value Reference Range Interpretation Comments TSH (test code = See_Comment [Automated message] [id number]) The system [employer] generated this result transmitted ref erence range: 0.45 - 4 .70 mIU/L. The refe rence range was not u sed to interpret this result as normal/abnor mal. Lab Interpretation (test Normal code = 40858-3) [facility] [id number] 17:48:00 Test Item Value Reference Range Interpretation Comments TSH (test code = See_Comment [Automated message] [id number]) The system [employer] generated this result transmitted ref erence range: 0.45 - 4 .70 mIU/L. The refe rence range was not u sed to interpret this result as normal/abnor mal. Lab Interpretation (test Normal code = 98627-2) [facility] [id number] 17:48:00 Test Item Value Reference Range Interpretation Comments TSH (test code = See_Comment [Automated message] [id number]) The system [employer] generated this result transmitted ref erence range: 0.45 - 4 .70 mIU/L. The refe rence range was not u sed to interpret this result as normal/abnor mal. Lab Interpretation (test Normal code = 61070-6) [facility] [id number] 17:48:00 Test Item Value Reference Range Interpretation Comments TSH (test code = See_Comment [Automated message] [id number]) The system [employer] generated this result transmitted ref erence range: 0.45 - 4 .70 mIU/L. The refe rence range was not u sed to interpret this result as normal/abnor mal. Lab Interpretation (test Normal code = 58390-7) [facility] [id number] 17:48:00 Test Item Value Reference Range Interpretation Comments TSH (test code = See_Comment [Automated message] [id number]) The system [employer] generated this result transmitted ref erence range: 0.45 - 4 .70 mIU/L. The refe rence range was not u sed to interpret this result as normal/abnor mal. Lab Interpretation (test Normal code = 70732-7) [facility] [id number] 17:48:00 Test Item Value Reference Range Interpretation Comments TSH (test code = See_Comment [Automated message] [id number]) The system [employer] generated this result transmitted ref erence range: 0.45 - 4 .70 mIU/L. The refe rence range was not u sed to interpret this result as normal/abnor mal. Lab Interpretation (test Normal code = 42116-2) [facility] [id number] 17:48:00 Test Item Value Reference Range Interpretation Comments TSH (test code = See_Comment [Automated message] [id number]) The system [employer] generated this result transmitted ref erence range: 0.45 - 4 .70 mIU/L. The refe rence range was not u sed to interpret this result as normal/abnor mal. Lab Interpretation (test Normal code = 44218-1) [facility] ([id number])(TOTAL CHOLESTEROL, TRIGLYCERIDES, HDL)2020-02-07 17:19:00 Test Item Value Reference Range Interpretation Comments CHOL (test code = 117 mg/dL 120-200 L 6003655208) HDL (test code = 38 mg/dL >40 L 7496063327) HDLC RATIO (test code = See_Comment [Au tomated message] 1123332572) The system [employer] generated this result transmit claribel reference range : <=5.0. The refe rence range was not u sed to interpret th is result as normal/abnormal . TRIG (test code = 50 mg/dL 30-170 6235468854) LDL CHOL (test code = 69 mg/dL See_Comment [Auto mated message] 40919-1) The system [employer] generated this result transmit claribel reference range : <=160. The refe rence range was not u sed to interpret th is result as normal/abnormal . VLDL (test code = 10 mg/dL 5-60 4653877854) Lab Interpretation (test Abnormal code = 66564-0) [facility] ([id number])(TOTAL CHOLESTEROL, TRIGLYCERIDES, HDL)2020-02-07 17:19:00 Test Item Value Reference Range Interpretation Comments CHOL (test code = 117 mg/dL 120-200 L 8760286742) HDL (test code = 38 mg/dL >40 L 6745243621) HDLC RATIO (test code = See_Comment [Au tomated message] 6904814968) The system [employer] generated this result transmit claribel reference range : <=5.0. The refe rence range was not u sed to interpret th is result as normal/abnormal . TRIG (test code = 50 mg/dL 30-170 9557648918) LDL CHOL (test code = 69 mg/dL See_Comment [Auto mated message] 18023-4) The system [employer] generated this result transmit claribel reference range : <=160. The refe rence range was not u sed to interpret th is result as normal/abnormal . VLDL (test code = 10 mg/dL 5-60 0323965062) Lab Interpretation (test Abnormal code = 83633-1) [facility] ([id number])(TOTAL CHOLESTEROL, TRIGLYCERIDES, HDL)2020-02-07 17:19:00 Test Item Value Reference Range Interpretation Comments CHOL (test code = 117 mg/dL 120-200 L 6452513696) HDL (test code = 38 mg/dL >40 L 8461555176) HDLC RATIO (test code = See_Comment [Au tomated message] 4381774004) The system [employer] generated this result transmit claribel reference range : <=5.0. The refe rence range was not u sed to interpret th is result as normal/abnormal . TRIG (test code = 50 mg/dL 30-170 8962902565) LDL CHOL (test code = 69 mg/dL See_Comment [Auto mated message] 11943-1) The system [employer] generated this result transmit claribel reference range : <=160. The refe rence range was not u sed to interpret th is result as normal/abnormal . VLDL (test code = 10 mg/dL 5-60 8263057144) Lab Interpretation (test Abnormal code = 42117-0) [facility][id number])(TOTAL CHOLESTEROL, TRIGLYCERIDES, HDL)2020-02-07 17:19:00 Test Item Value Reference Range Interpretation Comments CHOL (test code = 117 mg/dL 120-200 L 1644360321) HDL (test code = 38 mg/dL >40 L 8875247771) HDLC RATIO (test code = See_Comment [Au tomated message] 3303505510) The system [employer] generated this result transmit claribel reference range : <=5.0. The refe rence range was not u sed to interpret th is result as normal/abnormal . TRIG (test code = 50 mg/dL 30-170 2582932050) LDL CHOL (test code = 69 mg/dL See_Comment [Auto mated message] 65775-4) The system [employer] generated this result transmit claribel reference range : <=160. The refe rence range was not u sed to interpret th is result as normal/abnormal . VLDL (test code = 10 mg/dL 5-60 7083159615) Lab Interpretation (test Abnormal code = 11563-8) [facility][id number][facility]TOTAL CHOLESTEROL, TRIGLYCERIDES, HDL)2020-02-07 17:19:00 Test Item Value Reference Range Interpretation Comments CHOL (test code = 117 mg/dL 120-200 L 8985540249) HDL (test code = 38 mg/dL >40 L 2508826276) HDLC RATIO (test code = See_Comment [Au tomated message] 3883833169) The system [employer] generated this result transmit claribel reference range : <=5.0. The refe rence range was not u sed to interpret th is result as normal/abnormal . TRIG (test code = 50 mg/dL 30-170 5154819637) LDL CHOL (test code = 69 mg/dL See_Comment [Auto mated message] 36357-7) The system [employer] generated this result transmit claribel reference range : <=160. The refe rence range was not u sed to interpret th is result as normal/abnormal . VLDL (test code = 10 mg/dL 5-60 2548695520) Lab Interpretation (test Abnormal code = 30481-9) [facility] ([id number])(TOTAL CHOLESTEROL, TRIGLYCERIDES, HDL)2020-02-07 17:19:00 Test Item Value Reference Range Interpretation Comments CHOL (test code = 117 mg/dL 120-200 L 4962032586) HDL (test code = 38 mg/dL >40 L 7436436975) HDLC RATIO (test code = See_Comment [Au tomated message] 5513868950) The system [employer] generated this result transmit claribel reference range : <=5.0. The refe rence range was not u sed to interpret th is result as normal/abnormal . TRIG (test code = 50 mg/dL 30-170 6436477997) LDL CHOL (test code = 69 mg/dL See_Comment [Auto mated message] 66192-9) The system [employer] generated this result transmit claribel reference range : <=160. The refe rence range was not u sed to interpret th is result as normal/abnormal . VLDL (test code = 10 mg/dL 5-60 5396589773) Lab Interpretation (test Abnormal code = 44253-3) [facility]55803[facility]TOTAL CHOLESTEROL, TRIGLYCERIDES, HDL)2020-02-07 17:19:00 Test Item Value Reference Range Interpretation Comments CHOL (test code = 117 mg/dL 120-200 L 5815194104) HDL (test code = 38 mg/dL >40 L 4985551721) HDLC RATIO (test code = See_Comment [Au tomated message] 9645207041) The system [employer] generated this result transmit claribel reference range : <=5.0. The refe rence range was not u sed to interpret th is result as normal/abnormal . TRIG (test code = 50 mg/dL 30-170 6453496170) LDL CHOL (test code = 69 mg/dL See_Comment [Auto mated message] 36239-9) The system [employer] generated this result transmit claribel reference range : <=160. The refe rence range was not u sed to interpret th is result as normal/abnormal . VLDL (test code = 10 mg/dL 5-60 6214668328) Lab Interpretation (test Abnormal code = 03992-0) [facility][id number][facility]TOTAL CHOLESTEROL, TRIGLYCERIDES, HDL)2020-02-07 17:19:00 Test Item Value Reference Range Interpretation Comments CHOL (test code = 117 mg/dL 120-200 L 9961231159) HDL (test code = 38 mg/dL >40 L 6990792586) HDLC RATIO (test code = See_Comment [Au tomated message] 9710666861) The system [employer] generated this result transmit claribel reference range : <=5.0. The refe rence range was not u sed to interpret th is result as normal/abnormal . TRIG (test code = 50 mg/dL 30-170 4471487882) LDL CHOL (test code = 69 mg/dL See_Comment [Auto mated message] 45931-9) The system [employer] generated this result transmit claribel reference range : <=160. The refe rence range was not u sed to interpret th is result as normal/abnormal . VLDL (test code = 10 mg/dL 5-60 1697918333) Lab Interpretation (test Abnormal code = 83146-8) [facility]76761)(TOTAL CHOLESTEROL, TRIGLYCERIDES, HDL)2020-02-07 17:19:00 Test Item Value Reference Range Interpretation Comments CHOL (test code = 117 mg/dL 120-200 L 5603082761) HDL (test code = 38 mg/dL >40 L 2521626098) HDLC RATIO (test code = See_Comment [Au tomated message] 1031185465) The system [employer] generated this result transmit claribel reference range : <=5.0. The refe rence range was not u sed to interpret th is result as normal/abnormal . TRIG (test code = 50 mg/dL 30-170 6625851468) LDL CHOL (test code = 69 mg/dL See_Comment [Auto mated message] 75821-6) The system [employer] generated this result transmit claribel reference range : <=160. The refe rence range was not u sed to interpret th is result as normal/abnormal . VLDL (test code = 10 mg/dL 5-60 3747274548) Lab Interpretation (test Abnormal code = 06279-5) [facility]10858[facility]TOTAL CHOLESTEROL, TRIGLYCERIDES, HDL)2020-02-07 17:19:00 Test Item Value Reference Range Interpretation Comments CHOL (test code = 117 mg/dL 120-200 L 4133797488) HDL (test code = 38 mg/dL >40 L 9170740011) HDLC RATIO (test code = See_Comment [Au tomated message] 3029872342) The system [employer] generated this result transmit claribel reference range : <=5.0. The refe rence range was not u sed to interpret th is result as normal/abnormal . TRIG (test code = 50 mg/dL 30-170 7594402047) LDL CHOL (test code = 69 mg/dL See_Comment [Auto mated message] 82540-6) The system [employer] generated this result transmit claribel reference range : <=160. The refe rence range was not u sed to interpret th is result as normal/abnormal . VLDL (test code = 10 mg/dL 5-60 3505094106) Lab Interpretation (test Abnormal code = 11104-8) [facility] (60500)(TOTAL CHOLESTEROL, TRIGLYCERIDES, HDL)2020-02-07 17:19:00 Test Item Value Reference Range Interpretation Comments CHOL (test code = 117 mg/dL 120-200 L 8983903231) HDL (test code = 38 mg/dL >40 L 8313826878) HDLC RATIO (test code = See_Comment [Au tomated message] 1344759412) The system [employer] generated this result transmit claribel reference range : <=5.0. The refe rence range was not u sed to interpret th is result as normal/abnormal . TRIG (test code = 50 mg/dL 30-170 9001775583) LDL CHOL (test code = 69 mg/dL See_Comment [Auto mated message] 99729-3) The system [employer] generated this result transmit claribel reference range : <=160. The refe rence range was not u sed to interpret th is result as normal/abnormal . VLDL (test code = 10 mg/dL 5-60 9846591490) Lab Interpretation (test Abnormal code = 55288-0) [facility]15900[facility]TOTAL CHOLESTEROL, TRIGLYCERIDES, HDL)2020-02-07 17:19:00 Test Item Value Reference Range Interpretation Comments CHOL (test code = 117 mg/dL 120-200 L 6107498580) HDL (test code = 38 mg/dL >40 L 8327772815) HDLC RATIO (test code = See_Comment [Au tomated message] 9130995124) The system [employer] generated this result transmit claribel reference range : <=5.0. The refe rence range was not u sed to interpret th is result as normal/abnormal . TRIG (test code = 50 mg/dL 30-170 5528083062) LDL CHOL (test code = 69 mg/dL See_Comment [Auto mated message] 78446-2) The system [employer] generated this result transmit claribel reference range : <=160. The refe rence range was not u sed to interpret th is result as normal/abnormal . VLDL (test code = 10 mg/dL 5-60 5854666609) Lab Interpretation (test Abnormal code = 13878-2) [facility] (83743)(TOTAL CHOLESTEROL, TRIGLYCERIDES, HDL)2020-02-07 17:19:00 Test Item Value Reference Range Interpretation Comments CHOL (test code = 117 mg/dL 120-200 L 0332152773) HDL (test code = 38 mg/dL >40 L 6099829399) HDLC RATIO (test code = See_Comment [Au tomated message] 3967109030) The system [employer] generated this result transmit claribel reference range : <=5.0. The refe rence range was not u sed to interpret th is result as normal/abnormal . TRIG (test code = 50 mg/dL 30-170 8915232095) LDL CHOL (test code = 69 mg/dL See_Comment [Auto mated message] 94222-5) The system [employer] generated this result transmit claribel reference range : <=160. The refe rence range was not u sed to interpret th is result as normal/abnormal . VLDL (test code = 10 mg/dL 5-60 3568681578) Lab Interpretation (test Abnormal code = 41646-6) [facility] (01848)(TOTAL CHOLESTEROL, TRIGLYCERIDES, HDL)2020-02-07 17:19:00 Test Item Value Reference Range Interpretation Comments CHOL (test code = 117 mg/dL 120-200 L 5972838070) HDL (test code = 38 mg/dL >40 L 3851352009) HDLC RATIO (test code = See_Comment [Au tomated message] 0681624837) The system [employer] generated this result transmit claribel reference range : <=5.0. The refe rence range was not u sed to interpret th is result as normal/abnormal . TRIG (test code = 50 mg/dL 30-170 1834993563) LDL CHOL (test code = 69 mg/dL See_Comment [Auto mated message] 31268-8) The system [employer] generated this result transmit claribel reference range : <=160. The refe rence range was not u sed to interpret th is result as normal/abnormal . VLDL (test code = 10 mg/dL 5-60 7483458981) Lab Interpretation (test Abnormal code = 27543-4) [facility] ([id number])2020-02-07 17:18:00 Test Item Value Reference Range Interpretation Comments NA (test code = 141 mmol/L 135-145 7017285498) K (test code = 4.3 mmol/L 3.5-5 1674327849) CL (test code = 103 mmol/L 98-108 2338609828) CO2 TOTAL (test code = 30 mmol/L 23-31 4093326425) AGAP (test code = 2-16 3713973172) BUN (test code = 13 mg/dL 7-23 8143073800) GLUCOSE (test code = 91 mg/dL 70-110 1670464588) CREATININE (test code = 0.80 mg/dL 0.6-1.25 3606242283) TOTAL BILI (test code = 0.6 mg/dL 0.1-1.8 9554362441) CALCIUM (test code = 9.7 mg/dL 8.6-10.6 1890062087) T PROTEIN (test code = 5.6 g/dL 6.3-8.2 L 4853718543) ALBUMIN (test code = 3.4 g/dL 3.5-5 L 4524483690) ALK PHOS (test code = 76 U/L 34-122 7584906203) ALTv (test code = 15 U/L 5-50 1742-6) AST(SGOT) (test code = 17 U/L 13-40 3703317909) eGFR Calculation mL/min/1.73m2 (Non-) (test code = 3785520647) eGFR Calculation mL/min/1.73m2 () (test code = 8018081561) JOEY (test code = JOEY) Association of [...] tests). Lab Interpretation Abnormal (test code = 98201-3) [facility] (47396)2020-02-07 17:18:00 Test Item Value Reference Range Interpretation Comments NA (test code = 141 mmol/L 135-145 5522954300) K (test code = 4.3 mmol/L 3.5-5 4555032503) CL (test code = 103 mmol/L 98-108 2096864969) CO2 TOTAL (test code = 30 mmol/L 23-31 5861653979) AGAP (test code = 2-16 5052200415) BUN (test code = 13 mg/dL 7-23 6266276717) GLUCOSE (test code = 91 mg/dL 70-110 0811089914) CREATININE (test code = 0.80 mg/dL 0.6-1.25 4262864648) TOTAL BILI (test code = 0.6 mg/dL 0.1-1.3 8373225039) CALCIUM (test code = 9.7 mg/dL 8.6-10.6 0321285057) T PROTEIN (test code = 5.6 g/dL 6.3-8.2 L 1593374997) ALBUMIN (test code = 3.4 g/dL 3.5-5 L 0065421808) ALK PHOS (test code = 76 U/L 34-122 8338032717) ALTv (test code = 15 U/L 5-50 1742-6) AST(SGOT) (test code = 17 U/L 13-40 3144036334) eGFR Calculation mL/min/1.73m2 (Non-) (test code = 0099735554) eGFR Calculation mL/min/1.73m2 () (test code = 8033574868) JOEY (test code = JOEY) Association of [...] tests). Lab Interpretation Abnormal (test code = 84918-4) [facility]. METABOLIC PANEL ([id number])2020-02-07 17:18:00 Test Item Value Reference Range Interpretation Comments NA (test code = 141 mmol/L 135-145 9101186527) K (test code = 4.3 mmol/L 3.5-5 4352473458) CL (test code = 103 mmol/L 98-108 7758620220) CO2 TOTAL (test code = 30 mmol/L 23-31 9963594830) AGAP (test code = 2-16 3305357738) BUN (test code = 13 mg/dL 7-23 8708883851) GLUCOSE (test code = 91 mg/dL 70-110 3567022785) CREATININE (test code = 0.80 mg/dL 0.6-1.25 0128772815) TOTAL BILI (test code = 0.6 mg/dL 0.1-1.6 2028182716) CALCIUM (test code = 9.7 mg/dL 8.6-10.6 7279841321) T PROTEIN (test code = 5.6 g/dL 6.3-8.2 L 6345962391) ALBUMIN (test code = 3.4 g/dL 3.5-5 L 2026314312) ALK PHOS (test code = 76 U/L 34-122 4993099141) ALTv (test code = 15 U/L 550 1742-6) AST(SGOT) (test code = 17 U/L 13-40 8260712221) eGFR Calculation mL/min/1.73m2 (Non-) (test code = 8717853278) eGFR Calculation mL/min/1.73m2 () (test code = 0008016956) JOEY (test code = JOEY) Association of [...] tests). Lab Interpretation Abnormal (test code = 30448-9) [facility]. METABOLIC PANEL ([id number])2020-02-07 17:18:00 Test Item Value Reference Range Interpretation Comments NA (test code = 141 mmol/L 135-145 0192514909) K (test code = 4.3 mmol/L 3.5-5 5110672091) CL (test code = 103 mmol/L 98-108 4307563009) CO2 TOTAL (test code = 30 mmol/L 23-31 5395485848) AGAP (test code = 2-16 1481727960) BUN (test code = 13 mg/dL 7-23 3675792236) GLUCOSE (test code = 91 mg/dL 70-110 2443617867) CREATININE (test code = 0.80 mg/dL 0.6-1.25 6994151591) TOTAL BILI (test code = 0.6 mg/dL 0.1-1.0 3486125351) CALCIUM (test code = 9.7 mg/dL 8.6-10.6 9512353059) T PROTEIN (test code = 5.6 g/dL 6.3-8.2 L 3130934428) ALBUMIN (test code = 3.4 g/dL 3.5-5 L 4373197129) ALK PHOS (test code = 76 U/L 34-122 2971856201) ALTv (test code = 15 U/L 5-50 1742-6) AST(SGOT) (test code = 17 U/L 13-40 3804344824) eGFR Calculation mL/min/1.73m2 (Non-) (test code = 2229948228) eGFR Calculation mL/min/1.73m2 () (test code = 1367925286) JOEY (test code = JOEY) Association of [...] tests). Lab Interpretation Abnormal (test code = 25422-6) [facility]. METABOLIC PANEL (15691)2020-02-07 17:18:00 Test Item Value Reference Range Interpretation Comments NA (test code = 141 mmol/L 135-145 9976973698) K (test code = 4.3 mmol/L 3.5-5 8731085263) CL (test code = 103 mmol/L 98-108 3644545460) CO2 TOTAL (test code = 30 mmol/L 23-31 0375805029) AGAP (test code = 2-16 6706203691) BUN (test code = 13 mg/dL 7-23 2528401250) GLUCOSE (test code = 91 mg/dL 70-110 1641464325) CREATININE (test code = 0.80 mg/dL 0.6-1.25 9880113923) TOTAL BILI (test code = 0.6 mg/dL 0.1-1.5 3169152413) CALCIUM (test code = 9.7 mg/dL 8.6-10.6 1810995899) T PROTEIN (test code = 5.6 g/dL 6.3-8.2 L 1649749343) ALBUMIN (test code = 3.4 g/dL 3.5-5 L 3019974478) ALK PHOS (test code = 76 U/L 34-122 6350007663) ALTv (test code = 15 U/L 5-50 1742-6) AST(SGOT) (test code = 17 U/L 13-40 7500723955) eGFR Calculation mL/min/1.73m2 (Non-) (test code = 9524914904) eGFR Calculation mL/min/1.73m2 () (test code = 5223190961) JOEY (test code = JOEY) Association of [...] tests). Lab Interpretation Abnormal (test code = 27544-2) [facility]. METABOLIC PANEL (63301)2020-02-07 17:18:00 Test Item Value Reference Range Interpretation Comments NA (test code = 141 mmol/L 135-145 1236350135) K (test code = 4.3 mmol/L 3.5-5 4335943693) CL (test code = 103 mmol/L 98-108 8597434317) CO2 TOTAL (test code = 30 mmol/L 23-31 8085637661) AGAP (test code = 2-16 4075856963) BUN (test code = 13 mg/dL 7-23 5262436438) GLUCOSE (test code = 91 mg/dL 70-110 7643512036) CREATININE (test code = 0.80 mg/dL 0.6-1.25 5159983716) TOTAL BILI (test code = 0.6 mg/dL 0.1-1.6 8615172848) CALCIUM (test code = 9.7 mg/dL 8.6-10.6 5094309733) T PROTEIN (test code = 5.6 g/dL 6.3-8.2 L 4947545932) ALBUMIN (test code = 3.4 g/dL 3.5-5 L 5781323616) ALK PHOS (test code = 76 U/L 34-122 0478407891) ALTv (test code = 15 U/L 5-50 1742-6) AST(SGOT) (test code = 17 U/L 13-40 8756869639) eGFR Calculation mL/min/1.73m2 (Non-) (test code = 7735117117) eGFR Calculation mL/min/1.73m2 () (test code = 8019430666) JOEY (test code = JOEY) Association of [...] tests). Lab Interpretation Abnormal (test code = 95744-5) [id number][facility]-07 17:18:00 Test Item Value Reference Range Interpretation Comments NA (test code = 141 mmol/L 135-145 0781296664) K (test code = 4.3 mmol/L 3.5-5 0197121389) CL (test code = 103 mmol/L 98-108 3764634084) CO2 TOTAL (test code = 30 mmol/L 23-31 7470976370) AGAP (test code = 2-16 4141029581) BUN (test code = 13 mg/dL 7-23 5964099987) GLUCOSE (test code = 91 mg/dL 70-110 1501372683) CREATININE (test code = 0.80 mg/dL 0.6-1.25 9068455360) TOTAL BILI (test code = 0.6 mg/dL 0.1-1.7 9729484959) CALCIUM (test code = 9.7 mg/dL 8.6-10.6 5764954289) T PROTEIN (test code = 5.6 g/dL 6.3-8.2 L 7952425995) ALBUMIN (test code = 3.4 g/dL 3.5-5 L 7741811894) ALK PHOS (test code = 76 U/L 34-122 9760931238) ALTv (test code = 15 U/L 5-50 1742-6) AST(SGOT) (test code = 17 U/L 13-40 7958813336) eGFR Calculation mL/min/1.73m2 (Non-) (test code = 9670357464) eGFR Calculation mL/min/1.73m2 () (test code = 6296644051) JOEY (test code = JOEY) Association of [...] tests). Lab Interpretation Abnormal (test code = 53602-6) [facility]. METABOLIC PANEL ([id number])2020-02-07 17:18:00 Test Item Value Reference Range Interpretation Comments NA (test code = 141 mmol/L 135-145 7184401266) K (test code = 4.3 mmol/L 3.5-5 2775276337) CL (test code = 103 mmol/L 98-108 2863014229) CO2 TOTAL (test code = 30 mmol/L 23-31 4102217445) AGAP (test code = 2-16 3370813287) BUN (test code = 13 mg/dL 7-23 1429276519) GLUCOSE (test code = 91 mg/dL 70-110 5203380635) CREATININE (test code = 0.80 mg/dL 0.6-1.25 4672807857) TOTAL BILI (test code = 0.6 mg/dL 0.1-1.5 3120617274) CALCIUM (test code = 9.7 mg/dL 8.6-10.6 9063446607) T PROTEIN (test code = 5.6 g/dL 6.3-8.2 L 2314688052) ALBUMIN (test code = 3.4 g/dL 3.5-5 L 7545135415) ALK PHOS (test code = 76 U/L 34-122 9099722958) ALTv (test code = 15 U/L 550 1742-6) AST(SGOT) (test code = 17 U/L 13-40 1172844333) eGFR Calculation mL/min/1.73m2 (Non-) (test code = 8423450826) eGFR Calculation mL/min/1.73m2 () (test code = 3455553285) JOEY (test code = JOEY) Association of [...] tests). Lab Interpretation Abnormal (test code = 39712-7) [facility]. METABOLIC PANEL ([id number])2020-02-07 17:18:00 Test Item Value Reference Range Interpretation Comments NA (test code = 141 mmol/L 135-145 6619535396) K (test code = 4.3 mmol/L 3.5-5 6132626027) CL (test code = 103 mmol/L 98-108 9643605192) CO2 TOTAL (test code = 30 mmol/L 23-31 9338165651) AGAP (test code = 2-16 3666758277) BUN (test code = 13 mg/dL 7-23 1585962117) GLUCOSE (test code = 91 mg/dL 70-110 0243273338) CREATININE (test code = 0.80 mg/dL 0.6-1.25 6701149336) TOTAL BILI (test code = 0.6 mg/dL 0.1-1.7 6668421051) CALCIUM (test code = 9.7 mg/dL 8.6-10.6 8477642882) T PROTEIN (test code = 5.6 g/dL 6.3-8.2 L 4983291582) ALBUMIN (test code = 3.4 g/dL 3.5-5 L 5171154864) ALK PHOS (test code = 76 U/L 34-122 8376407803) ALTv (test code = 15 U/L 5-50 1742-6) AST(SGOT) (test code = 17 U/L 13-40 1040770384) eGFR Calculation mL/min/1.73m2 (Non-) (test code = 9036039401) eGFR Calculation mL/min/1.73m2 () (test code = 6734072714) JOEY (test code = JOEY) Association of [...] tests). Lab Interpretation Abnormal (test code = 27430-3) [facility]. METABOLIC PANEL ([id number])2020-02-07 17:18:00 Test Item Value Reference Range Interpretation Comments NA (test code = 141 mmol/L 135-145 5077563946) K (test code = 4.3 mmol/L 3.5-5 3096192038) CL (test code = 103 mmol/L 98-108 5188357768) CO2 TOTAL (test code = 30 mmol/L 23-31 3750740815) AGAP (test code = 2-16 8239703354) BUN (test code = 13 mg/dL 7-23 0317369370) GLUCOSE (test code = 91 mg/dL 70-110 8886349091) CREATININE (test code = 0.80 mg/dL 0.6-1.25 3501335906) TOTAL BILI (test code = 0.6 mg/dL 0.1-1.8 7031878920) CALCIUM (test code = 9.7 mg/dL 8.6-10.6 4626786439) T PROTEIN (test code = 5.6 g/dL 6.3-8.2 L 6405102994) ALBUMIN (test code = 3.4 g/dL 3.5-5 L 7602400110) ALK PHOS (test code = 76 U/L 34-122 8685222150) ALTv (test code = 15 U/L 5-50 1742-6) AST(SGOT) (test code = 17 U/L 13-40 9107422845) eGFR Calculation mL/min/1.73m2 (Non-) (test code = 0636257868) eGFR Calculation mL/min/1.73m2 () (test code = 1660708641) JOEY (test code = JOEY) Association of [...] tests). Lab Interpretation Abnormal (test code = 82340-9) [facility]. METABOLIC PANEL ([id number])2020-02-07 17:18:00 Test Item Value Reference Range Interpretation Comments NA (test code = 141 mmol/L 135-145 5501727198) K (test code = 4.3 mmol/L 3.5-5 7949574660) CL (test code = 103 mmol/L 98-108 5491752082) CO2 TOTAL (test code = 30 mmol/L 23-31 1669799074) AGAP (test code = 2-16 2398587444) BUN (test code = 13 mg/dL 7-23 2891025227) GLUCOSE (test code = 91 mg/dL 70-110 1102847573) CREATININE (test code = 0.80 mg/dL 0.6-1.25 6184100636) TOTAL BILI (test code = 0.6 mg/dL 0.1-1.3 0962423379) CALCIUM (test code = 9.7 mg/dL 8.6-10.6 9051386672) T PROTEIN (test code = 5.6 g/dL 6.3-8.2 L 6371332481) ALBUMIN (test code = 3.4 g/dL 3.5-5 L 5698145238) ALK PHOS (test code = 76 U/L 34-122 4664152967) ALTv (test code = 15 U/L 5-50 1742-6) AST(SGOT) (test code = 17 U/L 13-40 1218365071) eGFR Calculation mL/min/1.73m2 (Non-) (test code = 6053095602) eGFR Calculation mL/min/1.73m2 () (test code = 2170279676) JOEY (test code = JOEY) Association of [...] tests). Lab Interpretation Abnormal (test code = 16586-0) [facility][id number][facility]07 17:18:00 Test Item Value Reference Range Interpretation Comments NA (test code = 141 mmol/L 135-145 1667351283) K (test code = 4.3 mmol/L 3.5-5 2308830956) CL (test code = 103 mmol/L 98-108 9482758189) CO2 TOTAL (test code = 30 mmol/L 23-31 3877893883) AGAP (test code = 2-16 6166660654) BUN (test code = 13 mg/dL 7-23 4875255260) GLUCOSE (test code = 91 mg/dL 70-110 6116075873) CREATININE (test code = 0.80 mg/dL 0.6-1.25 1625970826) TOTAL BILI (test code = 0.6 mg/dL 0.1-1.0 9977394624) CALCIUM (test code = 9.7 mg/dL 8.6-10.6 0071288321) T PROTEIN (test code = 5.6 g/dL 6.3-8.2 L 7788253837) ALBUMIN (test code = 3.4 g/dL 3.5-5 L 5287481761) ALK PHOS (test code = 76 U/L 34-122 9199828675) ALTv (test code = 15 U/L 5-50 1742-6) AST(SGOT) (test code = 17 U/L 13-40 0520192196) eGFR Calculation mL/min/1.73m2 (Non-) (test code = 7027265270) eGFR Calculation mL/min/1.73m2 () (test code = 4181662579) JOEY (test code = JOEY) Association of [...] tests). Lab Interpretation Abnormal (test code = 89096-1) [facility]. METABOLIC PANEL ([id number])2020-02-07 17:18:00 Test Item Value Reference Range Interpretation Comments NA (test code = 141 mmol/L 135-145 8478192961) K (test code = 4.3 mmol/L 3.5-5 3162525592) CL (test code = 103 mmol/L 98-108 2406444974) CO2 TOTAL (test code = 30 mmol/L 23-31 9615861866) AGAP (test code = 2-16 4584923344) BUN (test code = 13 mg/dL 7-23 8489962405) GLUCOSE (test code = 91 mg/dL 70-110 2475140448) CREATININE (test code = 0.80 mg/dL 0.6-1.25 4802630606) TOTAL BILI (test code = 0.6 mg/dL 0.1-1.3 9932775041) CALCIUM (test code = 9.7 mg/dL 8.6-10.6 0795134806) T PROTEIN (test code = 5.6 g/dL 6.3-8.2 L 8520007899) ALBUMIN (test code = 3.4 g/dL 3.5-5 L 5916943411) ALK PHOS (test code = 76 U/L 34-122 6865487427) ALTv (test code = 15 U/L 550 1742-6) AST(SGOT) (test code = 17 U/L 13-40 8631915648) eGFR Calculation mL/min/1.73m2 (Non-) (test code = 2817347670) eGFR Calculation mL/min/1.73m2 () (test code = 5141964594) JOEY (test code = JOEY) Association of [...] tests). Lab Interpretation Abnormal (test code = 06868-4) [facility]. METABOLIC PANEL ([id number])2020-02-07 17:18:00 Test Item Value Reference Range Interpretation Comments NA (test code = 141 mmol/L 135-145 1073577168) K (test code = 4.3 mmol/L 3.5-5 1323781801) CL (test code = 103 mmol/L 98-108 2143091781) CO2 TOTAL (test code = 30 mmol/L 23-31 6476263573) AGAP (test code = 2-16 9308098739) BUN (test code = 13 mg/dL 7-23 5687599084) GLUCOSE (test code = 91 mg/dL 70-110 7666683939) CREATININE (test code = 0.80 mg/dL 0.6-1.25 2389003365) TOTAL BILI (test code = 0.6 mg/dL 0.1-1.7 5156572174) CALCIUM (test code = 9.7 mg/dL 8.6-10.6 5877950045) T PROTEIN (test code = 5.6 g/dL 6.3-8.2 L 6564835777) ALBUMIN (test code = 3.4 g/dL 3.5-5 L 6055543034) ALK PHOS (test code = 76 U/L 34-122 1642095766) ALTv (test code = 15 U/L 5-50 1742-6) AST(SGOT) (test code = 17 U/L 13-40 8840790996) eGFR Calculation mL/min/1.73m2 (Non-) (test code = 6925615369) eGFR Calculation mL/min/1.73m2 () (test code = 6247602300) JOEY (test code = JOEY) Association of [...] tests). Lab Interpretation Abnormal (test code = 59808-2) [facility] [id number] 17:06:00 Test Item Value Reference Range Interpretation Comments VALPROIC A (test code = 38 ug/mL 50-100 L 3894601966) JOEY (test code = JOEY) Toxic Range: ?Greater than 100 ug/mL Lab Interpretation (test Abnormal code = 49774-0) [facility] [id number] 17:06:00 Test Item Value Reference Range Interpretation Comments VALPROIC A (test code = 38 ug/mL 50-100 L 0044743579) JOEY (test code = JOEY) Toxic Range: ?Greater than 100 ug/mL Lab Interpretation (test Abnormal code = 20819-3) [facility] [id number] 17:06:00 Test Item Value Reference Range Interpretation Comments VALPROIC A (test code = 38 ug/mL 50-100 L 4864287766) JOEY (test code = JOEY) Toxic Range: ?Greater than 100 ug/mL Lab Interpretation (test Abnormal code = 61816-2) [facility] [id number] 17:06:00 Test Item Value Reference Range Interpretation Comments VALPROIC A (test code = 38 ug/mL 50-100 L 1740896769) JOEY (test code = JOEY) Toxic Range: ?Greater than 100 ug/mL Lab Interpretation (test Abnormal code = 70258-9) [facility] [id number] 17:06:00 Test Item Value Reference Range Interpretation Comments VALPROIC A (test code = 38 ug/mL 50-100 L 4327669913) JOEY (test code = JOEY) Toxic Range: ?Greater than 100 ug/mL Lab Interpretation (test Abnormal code = 63473-0) [facility] [id number] 17:06:00 Test Item Value Reference Range Interpretation Comments VALPROIC A (test code = 38 ug/mL 50-100 L 7651737088) JOEY (test code = JOEY) Toxic Range: ?Greater than 100 ug/mL Lab Interpretation (test Abnormal code = 46100-4) [facility] [id number] 17:06:00 Test Item Value Reference Range Interpretation Comments VALPROIC A (test code = 38 ug/mL 50-100 L 7249040289) JOEY (test code = JOEY) Toxic Range: ?Greater than 100 ug/mL Lab Interpretation (test Abnormal code = 58475-7) [facility] [id number] 17:06:00 Test Item Value Reference Range Interpretation Comments VALPROIC A (test code = 38 ug/mL 50-100 L 7999860328) JOEY (test code = JOEY) Toxic Range: ?Greater than 100 ug/mL Lab Interpretation (test Abnormal code = 82501-0) [facility] [id number] 17:06:00 Test Item Value Reference Range Interpretation Comments VALPROIC A (test code = 38 ug/mL 50-100 L 8986262835) JOEY (test code = JOEY) Toxic Range: ?Greater than 100 ug/mL Lab Interpretation (test Abnormal code = 77311-9) [facility] [id number] 17:06:00 Test Item Value Reference Range Interpretation Comments VALPROIC A (test code = 38 ug/mL 50-100 L 3483825329) JOEY (test code = JOEY) Toxic Range: ?Greater than 100 ug/mL Lab Interpretation (test Abnormal code = 97905-3) [facility] [id number] 17:06:00 Test Item Value Reference Range Interpretation Comments VALPROIC A (test code = 38 ug/mL 50-100 L 6594276249) JOEY (test code = JOEY) Toxic Range: ?Greater than 100 ug/mL Lab Interpretation (test Abnormal code = 48032-1) [facility] [id number] 17:06:00 Test Item Value Reference Range Interpretation Comments VALPROIC A (test code = 38 ug/mL 50-100 L 4535819841) JOEY (test code = JOEY) Toxic Range: ?Greater than 100 ug/mL Lab Interpretation (test Abnormal code = 50310-3) [facility] [id number] 17:06:00 Test Item Value Reference Range Interpretation Comments VALPROIC A (test code = 38 ug/mL 50-100 L 6487348403) JOEY (test code = JOEY) Toxic Range: ?Greater than 100 ug/mL Lab Interpretation (test Abnormal code = 89074-9) [facility] [id number] 17:06:00 Test Item Value Reference Range Interpretation Comments VALPROIC A (test code = 38 ug/mL 50-100 L 0482736321) JOEY (test code = JOEY) Toxic Range: ?Greater than 100 ug/mL Lab Interpretation (test Abnormal code = 54871-1) [facility] [id number] 17:06:00 Test Item Value Reference Range Interpretation Comments VALPROIC A (test code = 38 ug/mL 50-100 L 4873073912) JOEY (test code = JOEY) Toxic Range: ?Greater than 100 ug/mL Lab Interpretation (test Abnormal code = 63748-7) [facility]-07 16:23:00 Test Item Value Reference Range Interpretation Comments HGB A1C (test code = 5.1 % 4-6 4548-4) JOEY (test code = JOEY) %A1C (NGSP) Interpretation (ADA)4.8-5.6 ? ? Normal or (Non-Diabetic Range)5.7-6.4 ? ? Increased Risk (Pre-Diabetic)>6.5 ?Diabetes Indicated Lab Interpretation Normal (test code = 07762-3) [facility]2020-02-07 16:23:00 Test Item Value Reference Range Interpretation Comments HGB A1C (test code = 5.1 % 4-6 4548-4) JOEY (test code = JOEY) %A1C (NGSP) Interpretation (ADA)4.8-5.6 ? ? Normal or (Non-Diabetic Range)5.7-6.4 ? ? Increased Risk (Pre-Diabetic)>6.5 ?Diabetes Indicated Lab Interpretation Normal (test code = 42402-4) [facility]2020-02-07 16:23:00 Test Item Value Reference Range Interpretation Comments HGB A1C (test code = 5.1 % 4-6 4548-4) JOEY (test code = JOEY) %A1C (NGSP) Interpretation (ADA)4.8-5.6 ? ? Normal or (Non-Diabetic Range)5.7-6.4 ? ? Increased Risk (Pre-Diabetic)>6.5 ?Diabetes Indicated Lab Interpretation Normal (test code = 02976-0) [facility]2020-02-07 16:23:00 Test Item Value Reference Range Interpretation Comments HGB A1C (test code = 5.1 % 4-6 4548-4) JOEY (test code = JOEY) %A1C (NGSP) Interpretation (ADA)4.8-5.6 ? ? Normal or (Non-Diabetic Range)5.7-6.4 ? ? Increased Risk (Pre-Diabetic)>6.5 ?Diabetes Indicated Lab Interpretation Normal (test code = 34582-4) [facility]2020-02-07 16:23:00 Test Item Value Reference Range Interpretation Comments HGB A1C (test code = 5.1 % 4-6 4548-4) JOEY (test code = JOEY) %A1C (NGSP) Interpretation (ADA)4.8-5.6 ? ? Normal or (Non-Diabetic Range)5.7-6.4 ? ? Increased Risk (Pre-Diabetic)>6.5 ?Diabetes Indicated Lab Interpretation Normal (test code = 17653-2) [facility]2020-02-07 16:23:00 Test Item Value Reference Range Interpretation Comments HGB A1C (test code = 5.1 % 4-6 4548-4) JOEY (test code = JOEY) %A1C (NGSP) Interpretation (ADA)4.8-5.6 ? ? Normal or (Non-Diabetic Range)5.7-6.4 ? ? Increased Risk (Pre-Diabetic)>6.5 ?Diabetes Indicated Lab Interpretation Normal (test code = 05651-7) [facility]2020-02-07 16:23:00 Test Item Value Reference Range Interpretation Comments HGB A1C (test code = 5.1 % 4-6 4548-4) JOEY (test code = JOEY) %A1C (NGSP) Interpretation (ADA)4.8-5.6 ? ? Normal or (Non-Diabetic Range)5.7-6.4 ? ? Increased Risk (Pre-Diabetic)>6.5 ?Diabetes Indicated Lab Interpretation Normal (test code = 37713-4) [facility]2020-02-07 16:23:00 Test Item Value Reference Range Interpretation Comments HGB A1C (test code = 5.1 % 4-6 4548-4) JOEY (test code = JOEY) %A1C (NGSP) Interpretation (ADA)4.8-5.6 ? ? Normal or (Non-Diabetic Range)5.7-6.4 ? ? Increased Risk (Pre-Diabetic)>6.5 ?Diabetes Indicated Lab Interpretation Normal (test code = 88804-4) [facility]2020-02-07 16:23:00 Test Item Value Reference Range Interpretation Comments HGB A1C (test code = 5.1 % 4-6 4548-4) JOEY (test code = JOEY) %A1C (NGSP) Interpretation (ADA)4.8-5.6 ? ? Normal or (Non-Diabetic Range)5.7-6.4 ? ? Increased Risk (Pre-Diabetic)>6.5 ?Diabetes Indicated Lab Interpretation Normal (test code = 23495-8) [facility]2020-02-07 16:23:00 Test Item Value Reference Range Interpretation Comments HGB A1C (test code = 5.1 % 4-6 4548-4) JOEY (test code = JOEY) %A1C (NGSP) Interpretation (ADA)4.8-5.6 ? ? Normal or (Non-Diabetic Range)5.7-6.4 ? ? Increased Risk (Pre-Diabetic)>6.5 ?Diabetes Indicated Lab Interpretation Normal (test code = 80889-6) [facility]2020-02-07 16:23:00 Test Item Value Reference Range Interpretation Comments HGB A1C (test code = 5.1 % 4-6 4548-4) JOEY (test code = JOEY) %A1C (NGSP) Interpretation (ADA)4.8-5.6 ? ? Normal or (Non-Diabetic Range)5.7-6.4 ? ? Increased Risk (Pre-Diabetic)>6.5 ?Diabetes Indicated Lab Interpretation Normal (test code = 53701-3) [facility]2020-02-07 16:23:00 Test Item Value Reference Range Interpretation Comments HGB A1C (test code = 5.1 % 4-6 4548-4) JOEY (test code = JOEY) %A1C (NGSP) Interpretation (ADA)4.8-5.6 ? ? Normal or (Non-Diabetic Range)5.7-6.4 ? ? Increased Risk (Pre-Diabetic)>6.5 ?Diabetes Indicated Lab Interpretation Normal (test code = 80990-8) [facility]2020-02-07 16:23:00 Test Item Value Reference Range Interpretation Comments HGB A1C (test code = 5.1 % 4-6 4548-4) JOEY (test code = JOEY) %A1C (NGSP) Interpretation (ADA)4.8-5.6 ? ? Normal or (Non-Diabetic Range)5.7-6.4 ? ? Increased Risk (Pre-Diabetic)>6.5 ?Diabetes Indicated Lab Interpretation Normal (test code = 55044-7) [facility]2020-02-07 16:23:00 Test Item Value Reference Range Interpretation Comments HGB A1C (test code = 5.1 % 4-6 4548-4) JOEY (test code = JOEY) %A1C (NGSP) Interpretation (ADA)4.8-5.6 ? ? Normal or (Non-Diabetic Range)5.7-6.4 ? ? Increased Risk (Pre-Diabetic)>6.5 ?Diabetes Indicated Lab Interpretation Normal (test code = 58522-2) [facility]2020-[facility]-07 16:23:00 Test Item Value Reference Range Interpretation Comments HGB A1C (test code = 5.1 % 4-6 4548-4) JOEY (test code = JOEY) %A1C (NGSP) Interpretation (ADA)4.8-5.6 ? ? Normal or (Non-Diabetic Range)5.7-6.4 ? ? Increased Risk (Pre-Diabetic)>6.5 ?Diabetes Indicated Lab Interpretation Normal (test code = 26787-0) [facility] WITH [id number] 15:41:00 Test Item Value Reference Range Interpretation Comments WBC (test code = See_Comment [Automated 9914-2) message] The sy stem which generated this result transmitted reference range : 4.20 - 10.70 10*3/?L. The reference range was not used to interpret this result as normal/abnormal . RBC (test code = See_Comment [Automated 033-8) message] The sy stem which generated this [...] RDW-SD (test code = 51.1 fL 38.5-51.6 23358-6) RDW-CV (test code = 13.9 % 12.1-15.4 788-0) PLT (test code = See_Comment [Automated 147-3) message] The sy stem which generated this result transmitted reference range : 150 - 328 10*3/ ?L. The reference r sarahy was not used to interpret this result as normal/abnormal . MPV (test code = 10.3 fL 9.8-13 70366-5) NRBC/100 WBC (test See_Comment [Automat ed code = 9899104016) message] The system which generated this result transmitted reference range : 0.0 - 10.0 /100 WBCs. The refer ence range was not u sed to interpret th is result as normal/abnormal . NRBC x10^3 (test code <0.01 See_Comment [Auto mated = 9140090854) message] The s ystem which generated this result transmitted reference range : 10*3/?L. The reference range was not used to interpret this result as normal/abnormal . GRAN MAT (NEUT) % 64.3 % (test code = 770-8) IMM GRAN % (test code 0.30 % = 3520843518) LYMPH % (test code = 22.6 % 736-9) MONO % (test code = 8.8 % 5905-5) EOS % (test code = 3.0 % 713-8) BASO % (test code = 1.0 % 706-2) GRAN MAT x10^3(ANC) 4.02 10*3/uL 1.99-6.95 (test code = 8403670993) IMM GRAN x10^3 (test <0.03 0-0.06 code = 4019244334) LYMPH x10^3 (test code 1.41 10*3/uL 1.09-3.23 = 731-0) MONO x10^3 (test code 0.55 10*3/uL 0.36-1.02 = 742-7) EOS x10^3 (test code = 0.19 10*3/uL 0.06-0.53 711-2) BASO x10^3 (test code 0.06 10*3/uL 0.01-0.09 = 704-7) Lab Interpretation Abnormal (test code = 91493-8) [facility] WITH [id number] 15:41:00 Test Item Value Reference Range Interpretation [...] RDW-SD (test code = 51.1 fL 38.5-51.6 40804-4) RDW-CV (test code = 13.9 % 12.1-15.4 788-0) PLT (test code = See_Comment [Automated 777-3) message] The sy stem which generated this result transmitted reference range : 150 - 328 10*3/ ?L. The reference r sarahy was not used to interpret this result as normal/abnormal . MPV (test code = 10.3 fL 9.8-13 84619-5) NRBC/100 WBC (test See_Comment [Automat ed code = 2253035903) message] The system which generated this result transmitted reference range : 0.0 - 10.0 /100 WBCs. The refer ence range was not u sed to interpret th is result as normal/abnormal . NRBC x10^3 (test code <0.01 See_Comment [Auto mated = 1076206405) message] The s ystem which generated this result transmitted reference range : 10*3/?L. The reference range was not used to interpret this result as normal/abnormal . GRAN MAT (NEUT) % 64.3 % (test code = 770-8) IMM GRAN % (test code 0.30 % = 1871174017) LYMPH % (test code = 22.6 % 736-9) MONO % (test code = 8.8 % 5905-5) EOS % (test code = 3.0 % 713-8) BASO % (test code = 1.0 % 706-2) GRAN MAT x10^3(ANC) 4.02 10*3/uL 1.99-6.95 (test code = [id number]) IMM GRAN x10^3 (test <0.03 0-0.06 code = [id number]) LYMPH x10^3 (test code 1.41 10*3/uL 1.09-3.23 = 731-0) MONO x10^3 (test code 0.55 10*3/uL 0.36-1.02 = 742-7) EOS x10^3 (test code = 0.19 10*3/uL 0.06-0.53 711-2) BASO x10^3 (test code 0.06 10*3/uL 0.01-0.09 = 704-7) Lab Interpretation Abnormal (test code = 11007-5) [facility] WITH [id number] 15:41:00 Test Item Value Reference Range Interpretation [...] RDW-SD (test code = 51.1 fL 38.5-51.6 65009-2) RDW-CV (test code = 13.9 % 12.1-15.4 788-0) PLT (test code = See_Comment [Automated 777-3) message] The sy stem which generated this result transmitted reference range : 150 - 328 10*3/ ?L. The reference r sarahy was not used to interpret this result as normal/abnormal . MPV (test code = 10.3 fL 9.8-13 13748-1) NRBC/100 WBC (test See_Comment [Automat ed code = [id number]) message] The system which generated this result transmitted reference range : 0.0 - 10.0 /100 WBCs. The refer ence range was not u sed to interpret th is result as normal/abnormal . NRBC x10^3 (test code <0.01 See_Comment [Auto mated = [id number]) message] The s ystem which generated this result transmitted reference range : 10*3/?L. The reference range was not used to interpret this result as normal/abnormal . GRAN MAT (NEUT) % 64.3 % (test code = 770-8) IMM GRAN % (test code 0.30 % = [id number]) LYMPH % (test code = 22.6 % 736-9) MONO % (test code = 8.8 % 5905-5) EOS % (test code = 3.0 % 713-8) BASO % (test code = 1.0 % 706-2) GRAN MAT x10^3(ANC) 4.02 10*3/uL 1.99-6.95 (test code = [id number]) IMM GRAN x10^3 (test <0.03 0-0.06 code = [id number]) LYMPH x10^3 (test code 1.41 10*3/uL 1.09-3.23 = 731-0) MONO x10^3 (test code 0.55 10*3/uL 0.36-1.02 = 742-7) EOS x10^3 (test code = 0.19 10*3/uL 0.06-0.53 711-2) BASO x10^3 (test code 0.06 10*3/uL 0.01-0.09 = 704-7) Lab Interpretation Abnormal (test code = 22181-6) [facility] WITH [id number] 15:41:00 Test Item Value Reference Range Interpretation [...] RDW-SD (test code = 51.1 fL 38.5-51.6 12991-3) RDW-CV (test code = 13.9 % 12.1-15.4 788-0) PLT (test code = See_Comment [Automated 777-3) message] The sy stem which generated this result transmitted reference range : 150 - 328 10*3/ ?L. The reference r sarahy was not used to interpret this result as normal/abnormal . MPV (test code = 10.3 fL 9.8-13 36594-4) NRBC/100 WBC (test See_Comment [Automat ed code = 6608794654) message] The system which generated this result transmitted reference range : 0.0 - 10.0 /100 WBCs. The refer ence range was not u sed to interpret th is result as normal/abnormal . NRBC x10^3 (test code <0.01 See_Comment [Auto mated = 8419043842) message] The s ystem which generated this result transmitted reference range : 10*3/?L. The reference range was not used to interpret this result as normal/abnormal . GRAN MAT (NEUT) % 64.3 % (test code = 770-8) IMM GRAN % (test code 0.30 % = 3158367039) LYMPH % (test code = 22.6 % 736-9) MONO % (test code = 8.8 % 5905-5) EOS % (test code = 3.0 % 713-8) BASO % (test code = 1.0 % 706-2) GRAN MAT x10^3(ANC) 4.02 10*3/uL 1.99-6.95 (test code = 9198046536) IMM GRAN x10^3 (test <0.03 0-0.06 code = 7117724225) LYMPH x10^3 (test code 1.41 10*3/uL 1.09-3.23 = 731-0) MONO x10^3 (test code 0.55 10*3/uL 0.36-1.02 = 742-7) EOS x10^3 (test code = 0.19 10*3/uL 0.06-0.53 711-2) BASO x10^3 (test code 0.06 10*3/uL 0.01-0.09 = 704-7) Lab Interpretation Abnormal (test code = 77955-1) [facility] WITH [id number] 15:41:00 Test Item Value Reference Range Interpretation Comments WBC (test code = See_Comment [Automated 5390-2) message] The sy stem which generated this result transmitted reference range : 4.20 - 10.70 10*3/?L. The reference range was not used to interpret this result as normal/abnormal . RBC (test code = See_Comment [Automated 072-8) message] The sy stem which generated this [...] RDW-SD (test code = 51.1 fL 38.5-51.6 61174-9) RDW-CV (test code = 13.9 % 12.1-15.4 788-0) PLT (test code = See_Comment [Automated 777-3) message] The sy stem which generated this result transmitted reference range : 150 - 328 10*3/ ?L. The reference r sarahy was not used to interpret this result as normal/abnormal . MPV (test code = 10.3 fL 9.8-13 19373-7) NRBC/100 WBC (test See_Comment [Automat ed code = 4375085632) message] The system which generated this result transmitted reference range : 0.0 - 10.0 /100 WBCs. The refer ence range was not u sed to interpret th is result as normal/abnormal . NRBC x10^3 (test code <0.01 See_Comment [Auto mated = 0590319115) message] The s ystem which generated this result transmitted reference range : 10*3/?L. The reference range was not used to interpret this result as normal/abnormal . GRAN MAT (NEUT) % 64.3 % (test code = 770-8) IMM GRAN % (test code 0.30 % = 6630260972) LYMPH % (test code = 22.6 % 736-9) MONO % (test code = 8.8 % 5905-5) EOS % (test code = 3.0 % 713-8) BASO % (test code = 1.0 % 706-2) GRAN MAT x10^3(ANC) 4.02 10*3/uL 1.99-6.95 (test code = 5528520992) IMM GRAN x10^3 (test <0.03 0-0.06 code = 0047264683) LYMPH x10^3 (test code 1.41 10*3/uL 1.09-3.23 = 731-0) MONO x10^3 (test code 0.55 10*3/uL 0.36-1.02 = 742-7) EOS x10^3 (test code = 0.19 10*3/uL 0.06-0.53 711-2) BASO x10^3 (test code 0.06 10*3/uL 0.01-0.09 = 704-7) Lab Interpretation Abnormal (test code = 85893-8) [facility] WITH [id number] 15:41:00 Test Item Value Reference Range Interpretation [...] RDW-SD (test code = 51.1 fL 38.5-51.6 81353-2) RDW-CV (test code = 13.9 % 12.1-15.4 788-0) PLT (test code = See_Comment [Automated 777-3) message] The sy stem which generated this result transmitted reference range : 150 - 328 10*3/ ?L. The reference r sarahy was not used to interpret this result as normal/abnormal . MPV (test code = 10.3 fL 9.8-13 75508-4) NRBC/100 WBC (test See_Comment [Automat ed code = 2465780545) message] The system which generated this result transmitted reference range : 0.0 - 10.0 /100 WBCs. The refer ence range was not u sed to interpret th is result as normal/abnormal . NRBC x10^3 (test code <0.01 See_Comment [Auto mated = 8987926789) message] The s ystem which generated this result transmitted reference range : 10*3/?L. The reference range was not used to interpret this result as normal/abnormal . GRAN MAT (NEUT) % 64.3 % (test code = 770-8) IMM GRAN % (test code 0.30 % = 4485910944) LYMPH % (test code = 22.6 % 736-9) MONO % (test code = 8.8 % 5905-5) EOS % (test code = 3.0 % 713-8) BASO % (test code = 1.0 % 706-2) GRAN MAT x10^3(ANC) 4.02 10*3/uL 1.99-6.95 (test code = 5562198976) IMM GRAN x10^3 (test <0.03 0-0.06 code = 1538382389) LYMPH x10^3 (test code 1.41 10*3/uL 1.09-3.23 = 731-0) MONO x10^3 (test code 0.55 10*3/uL 0.36-1.02 = 742-7) EOS x10^3 (test code = 0.19 10*3/uL 0.06-0.53 711-2) BASO x10^3 (test code 0.06 10*3/uL 0.01-0.09 = 704-7) Lab Interpretation Abnormal (test code = 11831-0) [facility] WITH [id number] 15:41:00 Test Item Value Reference Range Interpretation Comments WBC (test code = See_Comment [Automated 9890-2) message] The sy stem which generated this result transmitted reference range : 4.20 - 10.70 10*3/?L. The reference range was not used to interpret this result as normal/abnormal . RBC (test code = See_Comment [Automated 839-8) message] The sy stem which generated this [...] RDW-SD (test code = 51.1 fL 38.5-51.6 18736-2) RDW-CV (test code = 13.9 % 12.1-15.4 788-0) PLT (test code = See_Comment [Automated 777-3) message] The sy stem which generated this result transmitted reference range : 150 - 328 10*3/ ?L. The reference r sarahy was not used to interpret this result as normal/abnormal . MPV (test code = 10.3 fL 9.8-13 84393-5) NRBC/100 WBC (test See_Comment [Automat ed code = 2315064428) message] The system which generated this result transmitted reference range : 0.0 - 10.0 /100 WBCs. The refer ence range was not u sed to interpret th is result as normal/abnormal . NRBC x10^3 (test code <0.01 See_Comment [Auto mated = 3741152087) message] The s ystem which generated this result transmitted reference range : 10*3/?L. The reference range was not used to interpret this result as normal/abnormal . GRAN MAT (NEUT) % 64.3 % (test code = 770-8) IMM GRAN % (test code 0.30 % = 7432954974) LYMPH % (test code = 22.6 % 736-9) MONO % (test code = 8.8 % 5905-5) EOS % (test code = 3.0 % 713-8) BASO % (test code = 1.0 % 706-2) GRAN MAT x10^3(ANC) 4.02 10*3/uL 1.99-6.95 (test code = 7981281468) IMM GRAN x10^3 (test <0.03 0-0.06 code = 5474765768) LYMPH x10^3 (test code 1.41 10*3/uL 1.09-3.23 = 731-0) MONO x10^3 (test code 0.55 10*3/uL 0.36-1.02 = 742-7) EOS x10^3 (test code = 0.19 10*3/uL 0.06-0.53 711-2) BASO x10^3 (test code 0.06 10*3/uL 0.01-0.09 = 704-7) Lab Interpretation Abnormal (test code = 85142-8) [facility] WITH [id number] 15:41:00 Test Item Value Reference Range Interpretation [...] RDW-SD (test code = 51.1 fL 38.5-51.6 49033-6) RDW-CV (test code = 13.9 % 12.1-15.4 788-0) PLT (test code = See_Comment [Automated 777-3) message] The sy stem which generated this result transmitted reference range : 150 - 328 10*3/ ?L. The reference r sarahy was not used to interpret this result as normal/abnormal . MPV (test code = 10.3 fL 9.8-13 21332-1) NRBC/100 WBC (test See_Comment [Automat ed code = 0844148508) message] The system which generated this result transmitted reference range : 0.0 - 10.0 /100 WBCs. The refer ence range was not u sed to interpret th is result as normal/abnormal . NRBC x10^3 (test code <0.01 See_Comment [Auto mated = 6763524251) message] The s ystem which generated this result transmitted reference range : 10*3/?L. The reference range was not used to interpret this result as normal/abnormal . GRAN MAT (NEUT) % 64.3 % (test code = 770-8) IMM GRAN % (test code 0.30 % = 4126784155) LYMPH % (test code = 22.6 % 736-9) MONO % (test code = 8.8 % 5905-5) EOS % (test code = 3.0 % 713-8) BASO % (test code = 1.0 % 706-2) GRAN MAT x10^3(ANC) 4.02 10*3/uL 1.99-6.95 (test code = 9166684354) IMM GRAN x10^3 (test <0.03 0-0.06 code = 4828086450) LYMPH x10^3 (test code 1.41 10*3/uL 1.09-3.23 = 731-0) MONO x10^3 (test code 0.55 10*3/uL 0.36-1.02 = 742-7) EOS x10^3 (test code = 0.19 10*3/uL 0.06-0.53 711-2) BASO x10^3 (test code 0.06 10*3/uL 0.01-0.09 = 704-7) Lab Interpretation Abnormal (test code = 48079-2) [facility] WITH [id number] 15:41:00 Test Item Value Reference Range Interpretation Comments WBC (test code = See_Comment [Automated 8690-2) message] The sy stem which generated this result transmitted reference range : 4.20 - 10.70 10*3/?L. The reference range was not used to interpret this result as normal/abnormal . RBC (test code = See_Comment [Automated 539-8) message] The sy stem which generated this [...] RDW-SD (test code = 51.1 fL 38.5-51.6 93150-4) RDW-CV (test code = 13.9 % 12.1-15.4 788-0) PLT (test code = See_Comment [Automated 777-3) message] The sy stem which generated this result transmitted reference range : 150 - 328 10*3/ ?L. The reference r sarahy was not used to interpret this result as normal/abnormal . MPV (test code = 10.3 fL 9.8-13 63864-1) NRBC/100 WBC (test See_Comment [Automat ed code = 3981708176) message] The system which generated this result transmitted reference range : 0.0 - 10.0 /100 WBCs. The refer ence range was not u sed to interpret th is result as normal/abnormal . NRBC x10^3 (test code <0.01 See_Comment [Auto mated = 0004321106) message] The s ystem which generated this result transmitted reference range : 10*3/?L. The reference range was not used to interpret this result as normal/abnormal . GRAN MAT (NEUT) % 64.3 % (test code = 770-8) IMM GRAN % (test code 0.30 % = 8484209179) LYMPH % (test code = 22.6 % 736-9) MONO % (test code = 8.8 % 5905-5) EOS % (test code = 3.0 % 713-8) BASO % (test code = 1.0 % 706-2) GRAN MAT x10^3(ANC) 4.02 10*3/uL 1.99-6.95 (test code = 1236369733) IMM GRAN x10^3 (test <0.03 0-0.06 code = 9485646494) LYMPH x10^3 (test code 1.41 10*3/uL 1.09-3.23 = 731-0) MONO x10^3 (test code 0.55 10*3/uL 0.36-1.02 = 742-7) EOS x10^3 (test code = 0.19 10*3/uL 0.06-0.53 711-2) BASO x10^3 (test code 0.06 10*3/uL 0.01-0.09 = 704-7) Lab Interpretation Abnormal (test code = 34208-8) [facility] WITH [id number] 15:41:00 Test Item Value Reference Range Interpretation Comments WBC (test code = See_Comment [Automated 8673-2) message] The sy stem which generated this result transmitted reference range : 4.20 - 10.70 10*3/?L. The reference range was not used to interpret this result as normal/abnormal . RBC (test code = See_Comment [Automated 209-8) message] The sy stem which generated this [...] RDW-SD (test code = 51.1 fL 38.5-51.6 47695-7) RDW-CV (test code = 13.9 % 12.1-15.4 788-0) PLT (test code = See_Comment [Automated 777-3) message] The sy stem which generated this result transmitted reference range : 150 - 328 10*3/ ?L. The reference r sarahy was not used to interpret this result as normal/abnormal . MPV (test code = 10.3 fL 9.8-13 35266-2) NRBC/100 WBC (test See_Comment [Automat ed code = 6339151898) message] The system which generated this result transmitted reference range : 0.0 - 10.0 /100 WBCs. The refer ence range was not u sed to interpret th is result as normal/abnormal . NRBC x10^3 (test code <0.01 See_Comment [Auto mated = 8976998649) message] The s ystem which generated this result transmitted reference range : 10*3/?L. The reference range was not used to interpret this result as normal/abnormal . GRAN MAT (NEUT) % 64.3 % (test code = 770-8) IMM GRAN % (test code 0.30 % = 7403780507) LYMPH % (test code = 22.6 % 736-9) MONO % (test code = 8.8 % 5905-5) EOS % (test code = 3.0 % 713-8) BASO % (test code = 1.0 % 706-2) GRAN MAT x10^3(ANC) 4.02 10*3/uL 1.99-6.95 (test code = 2760481388) IMM GRAN x10^3 (test <0.03 0-0.06 code = 6406134444) LYMPH x10^3 (test code 1.41 10*3/uL 1.09-3.23 = 731-0) MONO x10^3 (test code 0.55 10*3/uL 0.36-1.02 = 742-7) EOS x10^3 (test code = 0.19 10*3/uL 0.06-0.53 711-2) BASO x10^3 (test code 0.06 10*3/uL 0.01-0.09 = 704-7) Lab Interpretation Abnormal (test code = 60480-9) [facility] WITH [id number] 15:41:00 Test Item Value Reference Range Interpretation [...] RDW-SD (test code = 51.1 fL 38.5-51.6 23020-9) RDW-CV (test code = 13.9 % 12.1-15.4 788-0) PLT (test code = See_Comment [Automated 777-3) message] The sy stem which generated this result transmitted reference range : 150 - 328 10*3/ ?L. The reference r sarahy was not used to interpret this result as normal/abnormal . MPV (test code = 10.3 fL 9.8-13 82032-7) NRBC/100 WBC (test See_Comment [Automat ed code = 8621255746) message] The system which generated this result transmitted reference range : 0.0 - 10.0 /100 WBCs. The refer ence range was not u sed to interpret th is result as normal/abnormal . NRBC x10^3 (test code <0.01 See_Comment [Auto mated = 4672044952) message] The s ystem which generated this result transmitted reference range : 10*3/?L. The reference range was not used to interpret this result as normal/abnormal . GRAN MAT (NEUT) % 64.3 % (test code = 770-8) IMM GRAN % (test code 0.30 % = 5329445833) LYMPH % (test code = 22.6 % 736-9) MONO % (test code = 8.8 % 5905-5) EOS % (test code = 3.0 % 713-8) BASO % (test code = 1.0 % 706-2) GRAN MAT x10^3(ANC) 4.02 10*3/uL 1.99-6.95 (test code = 8727385304) IMM GRAN x10^3 (test <0.03 0-0.06 code = 7272917201) LYMPH x10^3 (test code 1.41 10*3/uL 1.09-3.23 = 731-0) MONO x10^3 (test code 0.55 10*3/uL 0.36-1.02 = 742-7) EOS x10^3 (test code = 0.19 10*3/uL 0.06-0.53 711-2) BASO x10^3 (test code 0.06 10*3/uL 0.01-0.09 = 704-7) Lab Interpretation Abnormal (test code = 53143-6) [facility] WITH [id number] 15:41:00 Test Item Value Reference Range Interpretation Comments WBC (test code = See_Comment [Automated 6690-2) message] The sy stem which generated this result transmitted reference range : 4.20 - 10.70 10*3/?L. The reference range was not used to interpret this result as normal/abnormal . RBC (test code = See_Comment [Automated 229-8) message] The sy stem which generated this [...] RDW-SD (test code = 51.1 fL 38.5-51.6 21542-9) RDW-CV (test code = 13.9 % 12.1-15.4 788-0) PLT (test code = See_Comment [Automated 777-3) message] The sy stem which generated this result transmitted reference range : 150 - 328 10*3/ ?L. The reference r sarahy was not used to interpret this result as normal/abnormal . MPV (test code = 10.3 fL 9.8-13 26174-0) NRBC/100 WBC (test See_Comment [Automat ed code = 5279570688) message] The system which generated this result transmitted reference range : 0.0 - 10.0 /100 WBCs. The refer ence range was not u sed to interpret th is result as normal/abnormal . NRBC x10^3 (test code <0.01 See_Comment [Auto mated = 7041314987) message] The s ystem which generated this result transmitted reference range : 10*3/?L. The reference range was not used to interpret this result as normal/abnormal . GRAN MAT (NEUT) % 64.3 % (test code = 770-8) IMM GRAN % (test code 0.30 % = 9959926673) LYMPH % (test code = 22.6 % 736-9) MONO % (test code = 8.8 % 5905-5) EOS % (test code = 3.0 % 713-8) BASO % (test code = 1.0 % 706-2) GRAN MAT x10^3(ANC) 4.02 10*3/uL 1.99-6.95 (test code = 1132574791) IMM GRAN x10^3 (test <0.03 0-0.06 code = 4307311822) LYMPH x10^3 (test code 1.41 10*3/uL 1.09-3.23 = 731-0) MONO x10^3 (test code 0.55 10*3/uL 0.36-1.02 = 742-7) EOS x10^3 (test code = 0.19 10*3/uL 0.06-0.53 711-2) BASO x10^3 (test code 0.06 10*3/uL 0.01-0.09 = 704-7) Lab Interpretation Abnormal (test code = 92957-8) [facility] WITH [id number] 15:41:00 Test Item Value Reference Range Interpretation [...] RDW-SD (test code = 51.1 fL 38.5-51.6 98665-0) RDW-CV (test code = 13.9 % 12.1-15.4 788-0) PLT (test code = See_Comment [Automated 777-3) message] The sy stem which generated this result transmitted reference range : 150 - 328 10*3/ ?L. The reference r sarahy was not used to interpret this result as normal/abnormal . MPV (test code = 10.3 fL 9.8-13 22985-6) NRBC/100 WBC (test See_Comment [Automat ed code = 5967561991) message] The system which generated this result transmitted reference range : 0.0 - 10.0 /100 WBCs. The refer ence range was not u sed to interpret th is result as normal/abnormal . NRBC x10^3 (test code <0.01 See_Comment [Auto mated = 8105396673) message] The s ystem which generated this result transmitted reference range : 10*3/?L. The reference range was not used to interpret this result as normal/abnormal . GRAN MAT (NEUT) % 64.3 % (test code = 072-8) IMM GRAN % (test code 0.30 % = 1432227246) LYMPH % (test code = 22.6 % 736-9) MONO % (test code = 8.8 % 5905-5) EOS % (test code = 3.0 % 713-8) BASO % (test code = 1.0 % 706-2) GRAN MAT x10^3(ANC) 4.02 10*3/uL 1.99-6.95 (test code = 8164935556) IMM GRAN x10^3 (test <0.03 0-0.06 code = 2936266843) LYMPH x10^3 (test code 1.41 10*3/uL 1.09-3.23 = 731-0) MONO x10^3 (test code 0.55 10*3/uL 0.36-1.02 = 742-7) EOS x10^3 (test code = 0.19 10*3/uL 0.06-0.53 711-2) BASO x10^3 (test code 0.06 10*3/uL 0.01-0.09 = 704-7) Lab Interpretation Abnormal (test code = 65261-6) [facility] WITH [id number] 15:41:00 Test Item Value Reference Range Interpretation Comments WBC (test code = See_Comment [Automated 0490-2) message] The sy stem which generated this result transmitted reference range : 4.20 - 10.70 10*3/?L. The reference range was not used to interpret this result as normal/abnormal . RBC (test code = See_Comment [Automated 249-8) message] The sy stem which generated this [...] RDW-SD (test code = 51.1 fL 38.5-51.6 05081-0) RDW-CV (test code = 13.9 % 12.1-15.4 788-0) PLT (test code = See_Comment [Automated 777-3) message] The sy stem which generated this result transmitted reference range : 150 - 328 10*3/ ?L. The reference r sarahy was not used to interpret this result as normal/abnormal . MPV (test code = 10.3 fL 9.8-13 59595-9) NRBC/100 WBC (test See_Comment [Automat ed code = 6450724114) message] The system which generated this result transmitted reference range : 0.0 - 10.0 /100 WBCs. The refer ence range was not u sed to interpret th is result as normal/abnormal . NRBC x10^3 (test code <0.01 See_Comment [Auto mated = 6164370500) message] The s ystem which generated this result transmitted reference range : 10*3/?L. The reference range was not used to interpret this result as normal/abnormal . GRAN MAT (NEUT) % 64.3 % (test code = 770-8) IMM GRAN % (test code 0.30 % = 5302683362) LYMPH % (test code = 22.6 % 736-9) MONO % (test code = 8.8 % 5905-5) EOS % (test code = 3.0 % 713-8) BASO % (test code = 1.0 % 706-2) GRAN MAT x10^3(ANC) 4.02 10*3/uL 1.99-6.95 (test code = 0612142540) IMM GRAN x10^3 (test <0.03 0-0.06 code = 5894610411) LYMPH x10^3 (test code 1.41 10*3/uL 1.09-3.23 = 731-0) MONO x10^3 (test code 0.55 10*3/uL 0.36-1.02 = 742-7) EOS x10^3 (test code = 0.19 10*3/uL 0.06-0.53 711-2) BASO x10^3 (test code 0.06 10*3/uL 0.01-0.09 = 704-7) Lab Interpretation Abnormal (test code = 24459-5) [facility] WITH [id number] 15:41:00 Test Item Value Reference Range Interpretation [...] RDW-SD (test code = 51.1 fL 38.5-51.6 97579-1) RDW-CV (test code = 13.9 % 12.1-15.4 788-0) PLT (test code = See_Comment [Automated 777-3) message] The sy stem which generated this result transmitted reference range : 150 - 328 10*3/ ?L. The reference r sarahy was not used to interpret this result as normal/abnormal . MPV (test code = 10.3 fL 9.8-13 87116-3) NRBC/100 WBC (test See_Comment [Automat ed code = 5112938970) message] The system which generated this result transmitted reference range : 0.0 - 10.0 /100 WBCs. The refer ence range was not u sed to interpret th is result as normal/abnormal . NRBC x10^3 (test code <0.01 See_Comment [Auto mated = 5625540025) message] The s ystem which generated this result transmitted reference range : 10*3/?L. The reference range was not used to interpret this result as normal/abnormal . GRAN MAT (NEUT) % 64.3 % (test code = 770-8) IMM GRAN % (test code 0.30 % = 3726804275) LYMPH % (test code = 22.6 % 736-9) MONO % (test code = 8.8 % 5905-5) EOS % (test code = 3.0 % 713-8) BASO % (test code = 1.0 % 706-2) GRAN MAT x10^3(ANC) 4.02 10*3/uL 1.99-6.95 (test code = 0971329483) IMM GRAN x10^3 (test <0.03 0-0.06 code = 0497380038) LYMPH x10^3 (test code 1.41 10*3/uL 1.09-3.23 = 731-0) MONO x10^3 (test code 0.55 10*3/uL 0.36-1.02 = 742-7) EOS x10^3 (test code = 0.19 10*3/uL 0.06-0.53 711-2) BASO x10^3 (test code 0.06 10*3/uL 0.01-0.09 = 704-7) Lab Interpretation Abnormal (test code = 14313-1) [id number] CHOLESTEROL, TRIGLYCERIDES, HDL)2019-02-20 17:10:00 Test Item Value Reference Range Interpretation Comments CHOL (test code = 140 mg/dL 120-200 9693441137) HDL (test code = 46 mg/dL >40 9417366533) HDLC RATIO (test code = See_Comment [Au tomated message] 3946784849) The system [employer] generated this result transmit claribel reference range : <=5.0. The refe rence range was not u sed to interpret th is result as normal/abnormal . TRIG (test code = 52 mg/dL 30-170 9671395933) LDL CHOL (test code = 84 mg/dL See_Comment [Auto mated message] 86860-8) The system [employer] generated this result transmit claribel reference range : <=160. The refe rence range was not u sed to interpret th is result as normal/abnormal . VLDL (test code = 10 mg/dL 5-60 6673538776) Lab Interpretation (test Normal code = 88204-2) [id number]TOTAL CHOLESTEROL, TRIGLYCERIDES, HDL)2019-02-20 17:10:00 Test Item Value Reference Range Interpretation Comments CHOL (test code = 140 mg/dL 120-200 7321743478) HDL (test code = 46 mg/dL >40 5100622044) HDLC RATIO (test code = See_Comment [Au tomated message] 2361610862) The system [employer] generated this result transmit claribel reference range : <=5.0. The refe rence range was not u sed to interpret th is result as normal/abnormal . TRIG (test code = 52 mg/dL 30-170 9954816069) LDL CHOL (test code = 84 mg/dL See_Comment [Auto mated message] 52357-8) The system [employer] generated this result transmit claribel reference range : <=160. The refe rence range was not u sed to interpret th is result as normal/abnormal . VLDL (test code = 10 mg/dL 5-60 1405417461) Lab Interpretation (test Normal code = 71910-5) [id number]TOTAL CHOLESTEROL, TRIGLYCERIDES, HDL)2019-02-20 17:10:00 Test Item Value Reference Range Interpretation Comments CHOL (test code = 140 mg/dL 120-200 [id number]) HDL (test code = 46 mg/dL >40 [id number]) HDLC RATIO (test code = See_Comment [Au tomated message] [id number]) The system [employer] generated this result transmit claribel reference range : <=5.0. The refe rence range was not u sed to interpret th is result as normal/abnormal . TRIG (test code = 52 mg/dL 30-170 [id number]) LDL CHOL (test code = 84 mg/dL See_Comment [Auto mated message] 90429-0) The system [employer] generated this result transmit claribel reference range : <=160. The refe rence range was not u sed to interpret th is result as normal/abnormal . VLDL (test code = 10 mg/dL 5-60 [id number]) Lab Interpretation (test Normal code = 35949-3) [id number]TOTAL CHOLESTEROL, TRIGLYCERIDES, HDL)2019-02-20 17:10:00 Test Item Value Reference Range Interpretation Comments CHOL (test code = 140 mg/dL 120-200 [id number]) HDL (test code = 46 mg/dL >40 [id number]) HDLC RATIO (test code = See_Comment [Au tomated message] [id number]) The system [employer] generated this result transmit claribel reference range : <=5.0. The refe rence range was not u sed to interpret th is result as normal/abnormal . TRIG (test code = 52 mg/dL 30-170 [id number]) LDL CHOL (test code = 84 mg/dL See_Comment [Auto mated message] 92414-5) The system [employer] generated this result transmit claribel reference range : <=160. The refe rence range was not u sed to interpret th is result as normal/abnormal . VLDL (test code = 10 mg/dL 5-60 8941290408) Lab Interpretation (test Normal code = 92274-6) [facility]TOTAL CHOLESTEROL, TRIGLYCERIDES, HDL)2019-02-20 17:10:00 Test Item Value Reference Range Interpretation Comments CHOL (test code = 140 mg/dL 120-200 [id number]) HDL (test code = 46 mg/dL >40 [id number]) HDLC RATIO (test code = See_Comment [Au tomated message] [id number]) The system [employer] generated this result transmit claribel reference range : <=5.0. The refe rence range was not u sed to interpret th is result as normal/abnormal . TRIG (test code = 52 mg/dL 30-170 [id number]) LDL CHOL (test code = 84 mg/dL See_Comment [Auto mated message] 25573-5) The system [employer] generated this result transmit claribel reference range : <=160. The refe rence range was not u sed to interpret th is result as normal/abnormal . VLDL (test code = 10 mg/dL 5-60 [id number]) Lab Interpretation (test Normal code = 83326-6) [facility]2019-02-20 16:35:00 Test Item Value Reference [...] Indicated Lab Interpretation Normal (test code = 56286-2) [facility]2019-02-20 16:35:00 Test Item Value Reference [...] Indicated Lab Interpretation Normal (test code = 70725-1) [facility]2019-02-20 16:35:00 Test Item Value Reference [...] Indicated Lab Interpretation Normal (test code = 82114-6) [facility]2019-02-20 16:35:00 Test Item Value Reference [...] Indicated Lab Interpretation Normal (test code = 83472-6) [facility]2019-02-20 16:35:00 Test Item Value Reference [...] Indicated Lab Interpretation Normal (test code = 46192-1) [facility]"
--- NOTE | 2021-05-25 14:29 | RAD REPORT ---
EXAM DESCRIPTION: CT - Abdomen Pelvis Wo Contrast - 05/25/2021 2:10 pm CLINICAL HISTORY: Abdominal pain /constipation COMPARISON: 2019 TECHNIQUE: Computed axial tomography of the abdomen and pelvis was obtained. IV and oral contrast we re not requested. All CT scans are performed using dose optimization technique as appropriate and may include automated exposure control or mA/KV adjustment according to patient size. FINDINGS: The evaluation of solid organs, vessels and bowel is limited secondary to the lack of con trast administration. The liver, spleen, pancreas, and adrenals and appear grossly normal. Small bilateral renal calculi. No hydronephrosis. 2.1 centimeter bladder calculus. Prostatic calcifications. Rectum is mildly distended with stool. Moderate amount stool is present throughout the colon. Spondylosis involves the lumbar spine resulting in spinal stenosis Duodenal diverticulum. Penile implant IMPRESSION: Small nonobstructing bilateral renal calculi. Bladder calculus Mild rectal distention. Moderate amount of stool throughout the colon.
[2021-05-25] MEDS ORDERED: FLEET ENEMA ADULT PR ONE (15:12)
[2021-05-25] MEDS ORDERED: MAGNESIUM CITRATE 300 ML BOT ONE (15:12)
--- NOTE | 2021-05-25 16:58 | ER ---
Nurse's Notes [facility] Name: Elver Tee Age: 80 yrs Sex: Male : 1940 Arrival Date: 05/25/2021 Time: 13:36 Bed 7 Private MD: Diagnosis: Constipation Presentation: 05/25 13:42 Chief complaint: Patient states: constipation. Coronavirus screen: Vaccine status: [place] Patient reports receiving the 2nd dose of the covid vaccine. Ebola Screen: Patient denies travel to an Ebola-affected area in the 21 days before illness onset. Initial Sepsis Screen: Does the patient meet any 2 criteria? No. Patient's initial sepsis screen is negative. Does the patient have a suspected source of infection? No. Patient's initial sepsis screen is negative. Risk Assessment: Do you want to hurt yourself or someone else? Patient reports no desire to harm self or others. Onset of symptoms was May 22, 2021. 13:42 Method Of Arrival: EMS: [facility] 13:42 Acuity: CUAUHTEMOC 4 [place] Triage Assessment: 13:45 General: Appears in no apparent distress. Behavior is calm, cooperative. Pain: Denies [place] pain. Historical: - Allergies: 13:45 Bacitracin Zinc; [place] 13:45 Neomycin Sulfate; [place] 13:45 Polymyxin B Sulfate; [place] - Home Meds: 13:45 clonazepam 2 mg Oral tab 2 tabs [Active]; clonazepam 0.5 mg Oral TbDi [Active]; [place] Depakote Oral [Active]; divalproex 250 mg Oral Tb24 [Active]; mirtazapine 7.5 mg Oral tab [Active]; paliperidone 3 mg Oral tr24 1 tab nightly [Active]; propranolol 10 mg Oral tab [Active]; tamsulosin 0.4 mg Oral cap [Active]; topiramate 25 mg Oral CSpX 1 cap nightly [Active]; Xarelto 10 mg Oral tab [Active]; - PMHx: 13:45 Bipolar disorder; Hypertensive disorder; Paranoid Schizophrenia; [place] - Immunization history:: Adult Immunizations up to date. - Social history:: Smoking status: Patient denies any tobacco usage or history of. Screenin:46 Abuse screen: Denies threats or abuse. Denies injuries from another. Nutritional [place] screening: No deficits noted. Tuberculosis screening: No symptoms or risk factors identified. Fall Risk None identified. Assessment: 13:47 General: Appears in no apparent distress. Pain: Denies pain. GI: Reports constipation. [place] 16:00 Reassessment: Patient appears in no apparent distress at this time. No changes from tw2 previously documented assessment. Patient and/or family updated on plan of care and expected duration. Pain level reassessed. Patient is alert, oriented x 3, equal unlabored respirations, skin warm/dry/pink. 17:37 Reassessment: Patient appears in no apparent distress at this time. No changes from tw2 previously documented assessment. Patient and/or family updated on plan of care and expected duration. Pain level reassessed. Patient is alert, oriented x 3, equal unlabored respirations, skin warm/dry/pink. Vital Signs: 13:42 BP 142 / 80; Pulse 92; Resp 18; Temp 98.2(O); Pulse Ox 93% on R/A; Weight 81.65 kg; [place] Height 6 ft. (182.88 cm); 14:05 BP 129 / 81; Pulse 82; Resp 19; Pulse Ox 96% on R/A; tw2 15:05 BP 123 / 85; Pulse 88; Resp 18; Pulse Ox 96% on R/A; [place] 17:00 BP 120 / 83; Pulse 82; Resp 17; Pulse Ox 97% on R/A; tw2 13:42 Body Mass Index 24.41 (81.65 kg, 182.88 cm) [place] ED Course: 13:36 Patient arrived in ED. [place] 13:36 Mary King, PENNIE is Primary Nurse. tw2 13:37 Abebe Peterson PA is PHCP. [facility] 13:[address] MD is Attending Physician. jmm 13:45 Triage completed. [place] 13:45 Arm band placed on. [place] 13:46 Patient has correct armband on for positive identification. [place] 13:46 No provider procedures requiring assistance completed. [place] 14:10 CT Abd/Pelvis - Without Contrast In Process Unspecified. EDMS 16:57 Nichole Isaac MD is Referral Physician. jmm 17:37 Patient did not have IV access during this emergency room visit. tw2 Administered Medications: 14:20 Drug: Fleet Enema (sodium phosphate) 133 ml Route: [place]; [place] 17:35 Follow up: Response: No adverse reaction [place] 15:33 Drug: Magnesium Citrate Liquid 300 ml Route: PO; [place] 15:41 Follow up: Response: No adverse reaction [place] Outcome: 16:58 Discharge ordered by . veronica 17:36 Discharged to home via wheelchair, with significant other. tw2 17:36 Condition: stable 17:36 Discharge instructions given to patient, significant other, Instructed on discharge instructions, follow up and referral plans. medication usage, Demonstrated understanding of instructions, follow-up care, medications, Prescriptions given X 1. 17:39 Patient left the ED. tw2 Signatures: Dispatcher [employer] EDMS Abebe Peterson PA PA jmm Wise, Tara, RN RN tw2 Au-StagerCaren RN RN
--- NOTE | 2021-05-25 16:58 | EDPHYS ---
Physician Documentation [facility] Name: Elver Tee Age: 80 yrs Sex: Male : 1940 Arrival Date: 05/25/2021 Time: 13:36 Bed 7 Private MD: ED Physician Gomez Lane HPI: 05/25 13:38 This 80 yrs old Male presents to ER via EMS with complaints of constipation. jmm 13:38 The patient presents to the emergency department with constipation. Onset: The jmm symptoms/episode began/occurred gradually. Modifying factors: The symptoms are alleviated by nothing. This is an 80-year-old male with history of bipolar, hypertension, schizophrenia that presents emerged part with complaints of constipation. Patient states he normally has a bowel movement every 2 days. Patient states its been 3 days since last full bowel movement. Patient states that the symptoms have caused difficulty in urinating as well. Denies vomiting or abdominal pain.. Historical: - Allergies: 13:45 Bacitracin Zinc; [place] 13:45 Neomycin Sulfate; [place] 13:45 Polymyxin B Sulfate; [place] - Home Meds: 13:45 clonazepam 2 mg Oral tab 2 tabs [Active]; clonazepam 0.5 mg Oral TbDi [Active]; [place] Depakote Oral [Active]; divalproex 250 mg Oral Tb24 [Active]; mirtazapine 7.5 mg Oral tab [Active]; paliperidone 3 mg Oral tr24 1 tab nightly [Active]; propranolol 10 mg Oral tab [Active]; tamsulosin 0.4 mg Oral cap [Active]; topiramate 25 mg Oral CSpX 1 cap nightly [Active]; Xarelto 10 mg Oral tab [Active]; - PMHx: 13:45 Bipolar disorder; Hypertensive disorder; Paranoid Schizophrenia; [place] - Immunization history:: Adult Immunizations up to date. - Social history:: Smoking status: Patient denies any tobacco usage or history of. ROS: 13:38 Constitutional: Negative for fever, chills, and weight loss, Cardiovascular: Negative jmm for chest pain, palpitations, and edema, Respiratory: Negative for shortness of breath, cough, wheezing, and pleuritic chest pain. 13:38 Abdomen/GI: Positive for constipation. 13:38 All other systems are negative. Exam: 13:38 Constitutional: This is a well developed, well nourished patient who is awake, alert, jmm and in no acute distress. Head/Face: atraumatic. Eyes: EOMI, no conjunctival erythema appreciated ENT: Moist Mucus Membranes Neck: Trachea midline, Supple Chest/axilla: Normal chest wall appearance and motion. Cardiovascular: Regular rate and rhythm. No edema appreciated Respiratory: Normal respirations, no respiratory distress appreciated 13:38 Back: Normal ROM Skin: General appearance color normal MS/ Extremity: Moves all extremities, no obvious deformities appreciated, no edema noted to the lower extremities Neuro: Awake and alert, normal gait Psych: Behavior is normal, Mood is normal, Patient is cooperative and pleasant 13:38 Abdomen/GI: Inspection: abdomen appears normal, Bowel sounds: normal, Palpation: abdomen is soft and non-tender, in all quadrants, Rectal exam: fecal impaction, that is mild, the exam is chaperoned by the nurse. Vital Signs: 13:42 BP 142 / 80; Pulse 92; Resp 18; Temp 98.2(O); Pulse Ox 93% on R/A; Weight 81.65 kg; [place] Height 6 ft. (182.88 cm); 14:05 BP 129 / 81; Pulse 82; Resp 19; Pulse Ox 96% on R/A; tw2 15:05 BP 123 / 85; Pulse 88; Resp 18; Pulse Ox 96% on R/A; [place] 17:00 BP 120 / 83; Pulse 82; Resp 17; Pulse Ox 97% on R/A; tw2 13:42 Body Mass Index 24.41 (81.65 kg, 182.88 cm) [place] MDM: 13:39 Patient medically screened. [facility] 16:56 Data reviewed: vital signs, nurses notes. Counseling: I had a detailed discussion with [facility] the patient and/or guardian regarding: the historical points, exam findings, and any diagnostic results supporting the discharge/admit diagnosis, radiology results, the need for outpatient follow up, to return to the emergency department if symptoms worsen or persist or if there are any questions or concerns that arise at home. ED course: A small amount of stool was retrieved with manual disimpaction. Patient was then administered magnesium citrate and Fleet enema. Patient states that he did have another bowel movement after that and does feel slightly better. Patient is abdomen is soft. CT is negative for obstruction. Patient advised follow-up with GI for further evaluation otherwise given strict return precautions. Patient understood and agrees plan of care.. 05/25 13:38 Order name: CT Abd/Pelvis - Without Contrast; Complete Time: 14:33 [facility] 05/25 13:38 Order name: Misc. Order: Prepare for disimpaction ; Complete Time: 16:07 [facility] 05/25 16:26 Order name: Misc. Order: Unleash the enema; Complete Time: 17:34 [facility] Administered Medications: 14:20 Drug: Fleet Enema (sodium phosphate) 133 ml Route: [place]; [place] 17:35 Follow up: Response: No adverse reaction [place] 15:33 Drug: Magnesium Citrate Liquid 300 ml Route: PO; [place] 15:41 Follow up: Response: No adverse reaction [place] Disposition Summary: 05/25/21 16:58 Discharge Ordered Location: Home [facility] Condition: Stable [facility] Diagnosis - Constipation [facility] Followup: [facility] - With: Nichole Isaac MD - When: 2 - 3 days - Reason: Recheck today's complaints, Continuance of care, Re-evaluation by your physician Discharge Instructions: - Discharge Summary Sheet [facility] - Constipation, Adult [facility] Forms: - Medication Reconciliation Form [facility] - Thank You Letter [facility] - Antibiotic Education [facility] - Prescription Opioid Use [facility] Prescriptions: - Miralax 17 gram Oral powder in packet - take 1 packet by ORAL route once daily; 1 box; Refills: 0, Product Selection [facility] Permitted Signatures: Dispatcher [employer] Abebe Purcell PA PA jmm Au-Stager, Heather RN RN
[2021-05-25 17:55] VITALS: TEMP 98.2
[2021-05-25 17:59] VITALS: BP 120/83; O2SAT 97
== END 2021-05-25 17:39 | disposition home or self-care (01) ==
LOC: ER 13:35
DX: K59.00 Constipation, unspecified (principal); I10 Essential (primary) hypertension; F20.0 Paranoid schizophrenia; Z88.3 Allergy status to other anti-infective agents
CPT/HCPCS: 74176; 99284

== ENCOUNTER 2021-07-01 07:21 | Emergency (ER) | payer OTHER, MEDICARE ==
--- OUTSIDE RECORDS SUMMARY | 2021-07-01 07:36 | XMS REPORT | Continuity of Care Document ---
:1940 Author Organization [facility] Address [address] [place] [address] Care Team Providers Name Role Phone Gomez HALL Primary Care Physician SIVAKUMAR WHITLOCK Attending Clinician Unavailable [id number] Attending Clinician Unavailable Danielle Draper Attending Clinician Unavailable Donita Attending Clinician Unavailable LINDEN CAMPO Attending Clinician Unavailable Nurse, Pob Immunization Attending Clinician Unavailable Linden Campo DO Attending Clinician SARAHY GIL Attending Clinician Unavailable SARAHY GIL Attending Clinician Unavailable Alicia GODOY Attending Clinician Unavailable Sarahy Gil MD Attending Clinician 2, Lab Attending Clinician Unavailable Keith ALEGRIA Attending Clinician Unavailable Keith Alegria MD Attending Clinician UNKNOWN Attending Clinician Unavailable Donn [place] [facility] CONSULTANT Attending Clinician Unknown Attending Clinician Unavailable Care, [...] Attending Clinician 1, Lab Attending Clinician Unavailable SIVAKUMAR WHITLOCK Admitting Clinician Unavailable [id number] Admitting Clinician Unavailable Danielle Draper Admitting Clinician Unavailable Payers Payer Name Policy Type Policy Number Effective Date Expiration Date S renetta MCR MCR [id number] AARP AARP [id number] MEDICARE B RAILROAD [id number] 2003 00:00:00 [facility] [id number] 2006 MEDICARE SUPPLEMENT 00:00:00 Advance Directives Directive Decision Effective Termination Comments Source Date Date Healthcare Agents on N/A Univ ersity FileNameRelationshipHealthcare of [place] Agent Medical RelationshipCommunicationWillodean Branch ReedSpouseHealth Care [phone] (Mobile) Problems Condition Condition Condition Status Onset Resolution Last Treating Co mments Source Name Details Category Date Date Treatment Clinician Date 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 -18 ity of 00:00: [address] 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 sm in male sm in male 30 it y of 00:00: [address] Gynecomast Gynecomast Disease Active U nivers ia ia 3-04 ity of 00:00: [address] Elevated Elevated Disease Active Unive rs prolactin prolactin 3-04 ity of level level 00:00: [address] Allergies, Adverse Reactions, Alerts Allergy Allergy Status Severity Reaction(s) Onset Inactive Treating Comm ents Source Name Type Date Date Clinician NO KNOWN Drug Active Univers ALLERGIE Class ity of S [facility] Family History Family Member Diagnosis Comments Start Date Stop Date Source Family member Thyroid [facility] Social History Social Habit Start Date Stop Date Quantity Comments Source History SDOH University o f Alcohol Frequency [place] [facility] History SDOH University o f Alcohol Std [place] Medical Drinks Branch History SDOH University o f Alcohol Binge [place] Medic al Branch Exposure to Not sure University of SARS-CoV-2 [facility] (event) [place] Alcohol intake 2020-02-02 2020-02-02 0 /d University of 00:00:00 00:00:00 [facility] Tobacco use and 2020-02-02 2020-02-02 Never used Universit y of exposure 00:00:00 00:00:00 [facility] Alcohol Comment 2018-03-21 2018-03-21 occaisonal wine Univ ersity of 00:00:00 00:00:00 [facility] Sex [birth year] Universit y of 00:00:00 00:00:00 [facility] Smoking Status Start Date Stop Date Source Never smoker [facility] Medications Ordered Filled Start Stop Current Ordering Indication Dosage Frequency Signature Comments Components Source Medication Medication Date Date Medication? Clinician (SIG) Name Name clonazePAM Yes [id number] .5mg Take 1 U nivers 0.5 mg 6-04 tablet by ity of tablet 00:00: mouth at [place] 00 bedtime. Medical Branch clonazePAM Yes [id number] .5mg Take 1 U nivers 0.5 mg 6-04 tablet by ity of tablet 00:00: mouth at [place] 00 bedtime. Medical Branch clonazePAM Yes [id number] .5mg Take 1 U nivers 0.5 mg 6-04 tablet by ity of tablet 00:00: mouth at [place] 00 bedtime. Medical Branch rivaroxaban Yes Take by Un jhonatan (XARELTO) 4-30 mouth. ity of 20 mg 15:40: [place] tablet 28 [facility] rivaroxaban Yes Take by Un jhonatan (XARELTO) 4-30 mouth. ity of 20 mg 15:40: [place] tablet 28 [facility] rivaroxaban Yes Take by Un jhonatan (XARELTO) 4-30 mouth. ity of 20 mg 15:40: [place] tablet 28 [facility] rivaroxaban Yes Take by Un jhonatan (XARELTO) 4-30 mouth. ity of 20 mg 15:40: [place] tablet 28 [facility] rivaroxaban Yes Take by Un jhonatan (XARELTO) 4-30 mouth. ity of 20 mg 15:40: [place] tablet 28 [facility] Branch rivaroxaban Yes Take by Un jhonatan (XARELTO) 4-30 mouth. ity of 20 mg 10:40: [place] tablet 28 Medical Branch divalproex Yes [id number] 500mg Take 2 Univers ER 250 mg 4-30 tablets by ity of 24 hr 00:00: mouth at [place] [facility] 00 bedtime. Medical Branch mirtazapine Yes [id number] 7.5mg Take 1 Univers 7.5 mg 4-30 105 tablet by ity of tablet 00:00: mouth at [place] 00 bedtime. Medical Branch paliperidon 2020-0 Yes [id number] TAKE 1 Univers e 3 mg 24 4-30 TABLET BY ity o f hour tablet 00:00: MOUTH ONCE [place] 00 DAILY Medical Branch divalproex 2020-0 Yes [id number] 500mg Take 2 Univers ER 250 mg 4-30 tablets by ity of 24 hr 00:00: mouth at [place] tablet 00 bedtime. Medical Branch mirtazapine 2020-0 Yes [id number] 7.5mg Take 1 Univers 7.5 mg 4-30 105 tablet by ity of tablet 00:00: mouth at [place] 00 bedtime. Medical Branch paliperidon 2020-0 Yes [id number] TAKE 1 Univers e 3 mg 24 4-30 TABLET BY ity o f hour tablet 00:00: MOUTH ONCE [place] 00 DAILY Medical Branch divalproex 2020-0 Yes [id number] 500mg Take 2 Univers ER 250 mg 4-30 tablets by ity of 24 hr 00:00: mouth at [place] tablet 00 bedtime. Medical Branch mirtazapine 0 Yes [id number] 7.5mg Take 1 Univers 7.5 mg 4-30 105 tablet by ity of tablet 00:00: mouth at [place] 00 bedtime. Medical Branch paliperidon 2020-0 Yes [id number] TAKE 1 Univers e 3 mg 24 4-30 TABLET BY ity o f hour tablet 00:00: MOUTH ONCE [place] 00 DAILY Medical Branch divalproex 2020-0 Yes [id number] 500mg Take 2 Univers ER 250 mg 4-30 tablets by ity of 24 hr 00:00: mouth at [place] tablet 00 bedtime. Medical Branch mirtazapine 2020-0 Yes [id number] 7.5mg Take 1 Univers 7.5 mg 4-30 105 tablet by ity of tablet 00:00: mouth at [place] 00 bedtime. Medical Branch paliperidon 2020-0 Yes [id number] TAKE 1 Univers e 3 mg 24 4-30 TABLET BY ity o f hour tablet 00:00: MOUTH ONCE [place] 00 DAILY Medical Branch divalproex 2020-0 Yes [id number] 500mg Take 2 Univers ER 250 mg 4-30 tablets by ity of 24 hr 00:00: mouth at [place] tablet 00 bedtime. Medical Branch mirtazapine Yes [id number] 7.5mg Take 1 Univers 7.5 mg 4-30 105 tablet by ity of tablet 00:00: mouth at [place] 00 bedtime. Medical Branch paliperidon Yes [id number] TAKE 1 Univers e 3 mg 24 4-30 TABLET BY ity o f hour tablet 00:00: MOUTH ONCE [place] 00 DAILY Medical Branch divalproex 2020-0 Yes [id number] 500mg Take 2 Univers ER 250 mg 4-30 tablets by ity of 24 hr 00:00: mouth at [place] tablet 00 bedtime. Medical Branch mirtazapine Yes [id number] 7.5mg Take 1 Univers 7.5 mg 4-30 105 tablet by ity of tablet 00:00: mouth at [place] 00 bedtime. Medical Branch paliperidon Yes [id number] TAKE 1 Univers e 3 mg 24 4-30 TABLET BY ity o f hour tablet 00:00: MOUTH ONCE [place] 00 DAILY Medical Branch divalproex 0 2020- No [id number] 500mg Take 2 Univers ER 250 mg 4-30 04-30 tablets by ity of 24 hr 00:00: 00:00 mouth at [place] tablet 00 :00 bedtime. Medical Branch divalproex 2020-2020- No [id number] 500mg Take 2 Univers ER 250 mg 4-30 04-30 tablets by ity of 24 hr 00:00: 00:00 mouth at [place] tablet 00 :00 bedtime. Medical Branch divalproex 2020-0 2020- No [id number] 500mg Take 2 Univers ER 250 mg 4-30 04-30 tablets by ity of 24 hr 00:00: 00:00 mouth at [place] tablet 00 :00 bedtime. Medical Branch divalproex 0 Yes [id number] 500mg Take 1 Univers ER 500 mg 4-08 tablet by ity o f 24 hr 00:00: mouth [place] tablet 00 every 24 Medical (twenty-fo Branch ur) hours. divalproex 0 Yes [id number] 500mg Take 1 Univers ER 500 mg 4-08 tablet by ity o f 24 hr 00:00: mouth [place] tablet 00 every 24 Medical (twenty-fo Branch ur) hours. divalproex 0 2020- No [id number] 500mg Take 1 Univers ER 500 mg 4-08 04-30 tablet by ity of 24 hr 00:00: 00:00 mouth [place] tablet 00 :00 every 24 Medical (twenty-fo Branch ur) hours. divalproex 2020-0 2020- No [id number] 500mg Take 1 Univers ER 500 mg 4-08 04-30 tablet by ity of 24 hr 00:00: 00:00 mouth [place] tablet 00 :00 every 24 Medical (twenty-fo Branch ur) hours. divalproex 2020-0 2020- No [id number] 500mg Take 1 Univers ER 500 mg 4-12 18-30 tablet by ity of 24 hr 00:00: 00:00 mouth [place] tablet 00 :00 every 24 Medical (twenty-fo Branch ur) hours. clonazePAM 2020-0 Yes [id number] .5mg Take 1 U nivers 0.5 mg 3-04 tablet by ity of tablet 00:00: mouth at [place] [address] bedtime. Medical Branch clonazePAM 2020-0 Yes [id number] .5mg Take 1 U nivers 0.5 mg 3-04 tablet by ity of tablet 00:00: mouth at [place] [address] bedtime. Medical Branch clonazePAM 2020-0 Yes [id number] .5mg Take 1 U nivers 0.5 mg 3-04 tablet by ity of tablet 00:00: mouth at [place] [address] bedtime. Medical Branch clonazePAM 2020-0 Yes [id number] .5mg Take 1 U nivers 0.5 mg 3-04 tablet by ity of tablet 00:00: mouth at [place] [address] bedtime. Medical Branch clonazePAM 2020-0 Yes [id number] .5mg Take 1 U nivers 0.5 mg 3-04 tablet by ity of tablet 00:00: mouth at [place] [address] bedtime. Medical Branch clonazePAM 2020-0 Yes [id number] .5mg Take 1 U nivers 0.5 mg 3-04 tablet by ity of tablet 00:00: mouth at [place] [address] bedtime. Medical Branch clonazePAM 2020-0 Yes [id number] .5mg Take 1 U nivers 0.5 mg 3-04 tablet by ity of tablet 00:00: mouth at [place] [address] bedtime. Medical Branch clonazePAM 2020-0 Yes [id number] .5mg Take 1 U nivers 0.5 mg 3-04 tablet by ity of tablet 00:00: mouth at [place] [address] bedtime. Medical Branch clonazePAM 2020-0 Yes [id number] .5mg Take 1 U nivers 0.5 mg 3-04 tablet by ity of tablet 00:00: mouth at [place] [address] bedtime. Medical Branch clonazePAM 2020-0 Yes [id number] .5mg Take 1 U nivers 0.5 mg 3-04 tablet by ity of tablet 00:00: mouth at [place] 00 bedtime. Medical Branch clonazePAM 2020-2020- No [id number] .5mg Take 1 Univers 0.5 mg 3-04 06-04 tablet by ity of tablet 00:00: 00:00 mouth at [place] 00 :00 bedtime. Medical Branch clonazePAM 2020-2020- No [id number] .5mg Take 1 Univers 0.5 mg 3-04 06-04 tablet by ity of tablet 00:00: 00:00 mouth at [place] 00 :00 bedtime. Medical Branch paliperidon 0 Yes [id number] TAKE 1 Univers e 3 mg 24 2-26 TABLET BY ity o f hour tablet 00:00: MOUTH ONCE [place] DAILY Medical Branch paliperidon 2020-0 Yes [id number] TAKE 1 Univers e 3 mg 24 2-26 TABLET BY ity o f hour tablet 00:00: MOUTH ONCE [place] DAILY Medical Branch paliperidon 0 Yes [id number] TAKE 1 Univers e 3 mg 24 2-26 TABLET BY ity o f hour tablet 00:00: MOUTH ONCE DAILY Medical Branch paliperidon 2020-0 Yes [id number] TAKE 1 Univers e 3 mg 24 2-26 TABLET BY ity o f hour tablet 00:00: MOUTH ONCE [place] DAILY Medical Branch paliperidon 2020-0 Yes [id number] TAKE 1 Univers e 3 mg 24 2-26 TABLET BY ity o f hour tablet 00:00: MOUTH ONCE DAILY Medical Branch paliperidon 2020-0 Yes [id number] TAKE 1 Univers e 3 mg 24 2-26 TABLET BY ity o f hour tablet 00:00: MOUTH ONCE [place] DAILY Medical Branch paliperidon 2020-0 Yes [id number] TAKE 1 Univers e 3 mg 24 2-26 TABLET BY ity o f hour tablet 00:00: MOUTH ONCE DAILY Medical Branch paliperidon 2020-0 Yes [id number] TAKE 1 Univers e 3 mg 24 2-26 TABLET BY ity o f hour tablet 00:00: MOUTH ONCE DAILY Medical Branch paliperidon 2020-0 2020- No [id number] TAKE 1 Univers e 3 mg 24 2-26 04-30 TABLET BY ity of hour tablet 00:00: 00:00 MOUTH ONCE [place] 00 :00 DAILY Medical Branch paliperidon 2020-0 2020- No [id number] TAKE 1 Univers e 3 mg 24 2-26 04-30 TABLET BY ity of hour tablet 00:00: 00:00 MOUTH ONCE [place] 00 :00 DAILY Medical Branch paliperidon 2020-0 2020- No [id number] TAKE 1 Univers e 3 mg 24 2-26 04-30 TABLET BY ity of hour tablet 00:00: 00:00 MOUTH ONCE [place] 00 :00 DAILY Medical Branch XARELTO 2020-0 Yes 10mg Take 10 mg Univ ers tablet 2-08 by mouth ity of 00:00: daily. Medical Branch XARELTO 0 Yes 10mg Take 10 mg Univ ers tablet 2-08 by mouth ity of 00:00: daily. Medical Branch XARELTO 2020-0 Yes 10mg Take 10 mg Univ ers tablet 2-08 by mouth ity of 00:00: daily. Medical Branch XARELTO 0 Yes 10mg Take [...] 00:00: daily. Medical Branch paliperidon 2020-0 Yes [id number] TAKE 1 Univers e 3 mg 24 1-22 TABLET BY ity o f hour tablet 00:00: MOUTH ONCE [place] 00 DAILY Medical Branch mirtazapine 2020-0 Yes [id number] 7.5mg Take 1 Univers 7.5 mg 1-22 105 tablet by ity of tablet 00:00: mouth at [place] [address] bedtime. Medical Branch mirtazapine 2020-0 Yes [id number] 7.5mg Take 1 Univers 7.5 mg 1-22 105 tablet by ity of tablet 00:00: mouth at [place] [address] bedtime. Medical Branch mirtazapine 2020-0 Yes [id number] 7.5mg Take 1 Univers 7.5 mg 1-22 105 tablet by ity of tablet 00:00: mouth at [place] [address] bedtime. Medical Branch mirtazapine 2020-0 Yes [id number] 7.5mg Take 1 Univers 7.5 mg 1-22 105 tablet by ity of tablet 00:00: mouth at [place] [address] bedtime. Medical Branch mirtazapine 2020-0 Yes [id number] 7.5mg Take 1 Univers 7.5 mg 1-22 105 tablet by ity of tablet 00:00: mouth at [place] [address] bedtime. Medical Branch mirtazapine 2020-0 Yes [id number] 7.5mg Take 1 Univers 7.5 mg 1-22 105 tablet by ity of tablet 00:00: mouth at [place] [address] bedtime. Medical Branch mirtazapine 2020-0 Yes [id number] 7.5mg Take 1 Univers 7.5 mg 1-22 105 tablet by ity of tablet 00:00: mouth at [place] [address] bedtime. Medical Branch mirtazapine 2020-0 Yes [id number] 7.5mg Take 1 Univers 7.5 mg 1-22 105 tablet by ity of tablet 00:00: mouth at [place] 00 bedtime. Medical Branch mirtazapine Yes [id number] 7.5mg Take 1 Univers 7.5 mg 1-22 105 tablet by ity of tablet 00:00: mouth at [place] 00 bedtime. Medical Branch propranoloL 2020- No [id number] 10mg Take 1 Univers 10 mg 1-22 07-22 tablet by ity of tablet 00:00: 04:59 mouth 2 [place] 00 :00 (two) Medical times Branch daily as needed (tremor) for up to 180 days. propranoloL 2020- No [id number] 10mg Take 1 Univers 10 mg 1-22 07-22 tablet by ity of tablet 00:00: 04:59 mouth 2 [place] 00 :00 (two) Medical times Branch daily as needed (tremor) for up to 180 days. propranoloL 2020- No [id number] 10mg Take 1 Univers 10 mg 1-22 07-22 tablet by ity of tablet 00:00: 04:59 mouth 2 [place] 00 :00 (two) Medical times Branch daily as needed (tremor) for up to 180 days. propranoloL 2020- No [id number] 10mg Take 1 Univers 10 mg 1-22 07-22 tablet by ity of tablet 00:00: 04:59 mouth 2 [place] 00 :00 (two) Medical times Branch daily as needed (tremor) for up to 180 days. propranoloL 2020- No [id number] 10mg Take 1 Univers 10 mg 1-22 07-22 tablet by ity of tablet 00:00: 04:59 mouth 2 [place] 00 :00 (two) Medical times Branch daily as needed (tremor) for up to 180 days. propranoloL 2020- No [id number] 10mg Take 1 Univers 10 mg 1-22 07-22 tablet by ity of tablet 00:00: 04:59 mouth 2 [place] 00 :00 (two) Medical times Branch daily as needed (tremor) for up to 180 days. propranoloL 2020- No [id number] 10mg Take 1 Univers 10 mg 1-22 07-22 tablet by ity of tablet 00:00: 04:59 mouth 2 [place] 00 :00 (two) Medical times Branch daily as needed (tremor) for up to 180 days. propranoloL 2020- No [id number] 10mg Take 1 Univers 10 mg 06-07-22 tablet by ity of tablet 00:00: 04:59 mouth 2 [place] 00 :00 (two) Medical times Branch daily as needed (tremor) for up to 180 days. propranoloL 2020- No [id number] 10mg Take 1 Univers 10 mg -05 12-22 tablet by ity of tablet 00:00: 04:59 mouth 2 [place] 00 :00 (two) Medical times Branch daily as needed (tremor) for up to 180 days. propranoloL 2020- No [id number] 10mg Take 1 Univers 10 mg 06-07- tablet by ity of tablet 00:00: 04:59 mouth 2 [place] 00 :00 (two) Medical times Branch daily as needed (tremor) for up to 180 days. propranoloL 2020- No [id number] 10mg Take 1 Univers 10 mg 06-07- tablet by ity of tablet 00:00: 04:59 mouth 2 [place] 00 :00 (two) Medical times Branch daily as needed (tremor) for up to 180 days. propranoloL 2020- No [id number] 10mg Take 1 Univers 10 mg 06-07- tablet by ity of tablet 00:00: 04:59 mouth 2 [place] 00 :00 (two) Medical times Branch daily as needed (tremor) for up to 180 days. propranoloL 2020- No [id number] 10mg Take 1 Univers 10 mg 06-07- tablet by ity of tablet 00:00: 04:59 mouth 2 [place] 00 :00 (two) Medical times Branch daily as needed (tremor) for up to 180 days. propranoloL 2020- No [id number] 10mg Take 1 Univers 10 mg 06-07-22 tablet by ity of tablet 00:00: 04:59 mouth 2 [place] 00 :00 (two) Medical times Branch daily as needed (tremor) for up to 180 days. mirtazapine 2020- No [id number] 7.5mg Take 1 Univers 7.5 mg 06-07 04-30 105 tablet by ity of tablet 00:00: 00:00 mouth at [place] 00 :00 bedtime. Medical Branch mirtazapine 2020- No [id number] 7.5mg Take 1 Univers 7.5 mg -22 -30 105 tablet by ity of tablet 00:00: 00:00 mouth at [place] 00 :00 bedtime. Medical Branch mirtazapine 2020- No [id number] 7.5mg Take 1 Univers 7.5 mg -22 -30 105 tablet by ity of tablet 00:00: 00:00 mouth at [place] 00 :00 bedtime. Medical Branch divalproex 2019-05 Yes [id number] 500mg Take 2 Univers ER 250 mg 2-26 tablets by ity of 24 hr 00:00: mouth at [place] tablet 00 bedtime. Medical Branch divalproex 2019-05- No [id number] 500mg Take 2 Univers ER 250 mg 2-26 -06 tablets by ity of 24 hr 00:00: 05:59 mouth at [place] tablet 00 :00 bedtime Medical for 10 days. divalproex 2019-05 Yes [id number] 500mg Take 2 Univers ER 250 mg 1-13 tablets by ity of 24 hr 00:00: mouth at [place] tablet 00 bedtime. Medical Branch divalproex 2019-05 Yes [id number] 500mg Take 2 Univers ER 250 mg 1-13 tablets by ity of 24 hr 00:00: mouth at [place] tablet 00 bedtime. Medical Branch divalproex 2019-05 Yes [id number] 500mg Take 2 Univers ER 250 mg 1-13 tablets by ity of 24 hr 00:00: mouth at [place] tablet 00 bedtime. Medical Branch divalproex 2019-05 Yes [id number] 500mg Take 2 Univers ER 250 mg 1-13 tablets by ity of 24 hr 00:00: mouth at [place] tablet 00 bedtime. Medical Branch clonazePAM 2019- Yes [id number] .5mg Take 1 U nivers 0.5 mg 1-03 tablet by ity of tablet 00:00: mouth at [place] 00 bedtime. Medical Branch mirtazapine 2019-05 Yes [id number] 7.5mg Take 1 Univers 7.5 mg 1-03 105 tablet by ity of tablet 00:00: mouth at [place] 00 bedtime. Medical Branch paliperidon 2019- Yes [id number] TAKE 1 Univers e 3 mg 24 1-03 TABLET BY ity o f hour tablet 00:00: MOUTH ONCE [place] 00 DAILY Medical Branch clonazePAM 2020-1 Yes [id number] .5mg Take 1 U nivers 0.5 mg 1-03 tablet by ity of tablet 00:00: mouth at [place] 00 bedtime. Medical Branch mirtazapine 2020- Yes [id number] 7.5mg Take 1 Univers 7.5 mg 1-03 105 tablet by ity of tablet 00:00: mouth at [place] 00 bedtime. Medical Branch paliperidon 2020- Yes [id number] TAKE 1 Univers e 3 mg 24 1-03 TABLET BY ity o f hour tablet 00:00: MOUTH ONCE [place] 00 DAILY Medical Branch clonazePAM 2019- Yes [id number] .5mg Take 1 U nivers 0.5 mg 1-03 tablet by ity of tablet 00:00: mouth at [place] 00 bedtime. Medical Branch mirtazapine 2019- Yes [id number] 7.5mg Take 1 Univers 7.5 mg 1-03 105 tablet by ity of tablet 00:00: mouth at [place] 00 bedtime. Medical Branch paliperidon 2019- Yes [id number] TAKE 1 Univers e 3 mg 24 1-03 TABLET BY ity o f hour tablet 00:00: MOUTH ONCE [place] 00 DAILY Medical Branch clonazePAM 2019- Yes [id number] .5mg Take 1 U nivers 0.5 mg 1-03 tablet by ity of tablet 00:00: mouth at [place] [address] bedtime. Medical Branch clonazePAM 2019- Yes [id number] .5mg Take 1 U nivers 0.5 mg 1-03 tablet by ity of tablet 00:00: mouth at [place] [address] bedtime. Medical Branch clonazePAM 2019- Yes [id number] .5mg Take 1 U nivers 0.5 mg 1-03 tablet by ity of tablet 00:00: mouth at [place] 00 bedtime. Medical Branch mirtazapine 2020- Yes [id number] 7.5mg Take 1 Univers 7.5 mg 1-03 105 tablet by ity of tablet 00:00: mouth at [place] [address] bedtime. Medical Branch clonazePAM 2019- Yes [id number] .5mg Take 1 U nivers 0.5 mg 1-03 tablet by ity of tablet 00:00: mouth at [place] 00 bedtime. Medical Branch mirtazapine 2019- Yes [id number] 7.5mg Take 1 Univers 7.5 mg 1-03 105 tablet by ity of tablet 00:00: mouth at [place] 00 bedtime. Medical Branch paliperidon 2020- Yes [id number] TAKE 1 Univers e 3 mg 24 1-03 TABLET BY ity o f hour tablet 00:00: MOUTH ONCE [place] 00 DAILY Medical Branch clonazePAM 2020- Yes [id number] .5mg Take 1 U nivers 0.5 mg 1-03 tablet by ity of tablet 00:00: mouth at [place] 00 bedtime. Medical Branch mirtazapine 2019- Yes [id number] 7.5mg Take 1 Univers 7.5 mg 1-03 105 tablet by ity of tablet 00:00: mouth at [place] 00 bedtime. Medical Branch paliperidon 2019- Yes [id number] TAKE 1 Univers e 3 mg 24 1-03 TABLET BY ity o f hour tablet 00:00: MOUTH ONCE [place] 00 DAILY Medical Branch clonazePAM 2019- Yes [id number] .5mg Take 1 U nivers 0.5 mg 1-03 tablet by ity of tablet 00:00: mouth at [place] 00 bedtime. Medical Branch mirtazapine 2019- Yes [id number] 7.5mg Take 1 Univers 7.5 mg 1-03 105 tablet by ity of tablet 00:00: mouth at [place] 00 bedtime. Medical Branch paliperidon 2019- Yes [id number] TAKE 1 Univers e 3 mg 24 1-03 TABLET BY ity o f hour tablet 00:00: MOUTH ONCE [place] 00 DAILY Medical Branch clonazePAM 2020- Yes [id number] .5mg Take 1 U nivers 0.5 mg 1-03 tablet by ity of tablet 00:00: mouth at [place] 00 bedtime. Medical Branch mirtazapine 2019- Yes [id number] 7.5mg Take 1 Univers 7.5 mg 1-03 105 tablet by ity of tablet 00:00: mouth at [place] 00 bedtime. Medical Branch paliperidon 2019- Yes [id number] TAKE 1 Univers e 3 mg 24 1-03 TABLET BY ity o f hour tablet 00:00: MOUTH ONCE [place] 00 DAILY Medical Branch clonazePAM 2020- Yes [id number] .5mg Take 1 U nivers 0.5 mg 1-03 tablet by ity of tablet 00:00: mouth at [place] bedtime. Medical Branch mirtazapine 2019- Yes [id number] 7.5mg Take 1 Univers 7.5 mg 1-03 105 tablet by ity of tablet 00:00: mouth at [place] bedtime. Medical Branch paliperidon 2019-1 Yes [id number] TAKE 1 Univers e 3 mg 24 1-03 TABLET BY ity o f hour tablet 00:00: MOUTH ONCE 00 DAILY Medical Branch clonazePAM 2019-1 Yes [id number] .5mg Take 1 U nivers 0.5 mg 1-03 tablet by ity of tablet 00:00: mouth at [place] bedtime. Medical Branch mirtazapine 2019- Yes [id number] 7.5mg Take 1 Univers 7.5 mg 1-03 105 tablet by ity of tablet 00:00: mouth at [place] bedtime. Medical Branch paliperidon 2019- Yes [id number] TAKE 1 Univers e 3 mg 24 1-03 TABLET BY ity o f hour tablet 00:00: MOUTH ONCE 00 DAILY Medical Branch mirtazapine 2019- Yes [id number] 7.5mg Take 1 Univers 7.5 mg 0-30 105 tablet by ity of tablet 00:00: mouth at [place] bedtime. Medical Branch mirtazapine 2019- Yes [id number] 7.5mg Take 1 Univers 7.5 mg 0-02 105 tablet by ity of tablet 00:00: mouth at [place] bedtime. Medical Branch mirtazapine 2019- Yes [id number] 7.5mg Take 1 Univers 7.5 mg 0-02 105 tablet by ity of tablet 00:00: mouth at [place] bedtime. Medical Branch propranolol 2020-0 Yes [id number] 10mg Take 1 [facility] 10 mg 8-03 tablet by ity of tablet 00:00: mouth 2 (two) Medical times Branch daily as needed (tremor). propranolol 2020-0 Yes [id number] 10mg Take 1 [facility] 10 mg 8-03 tablet by ity of tablet 00:00: mouth 2 (two) Medical times Branch daily as needed (tremor). propranolol 2020-0 Yes [id number] 10mg Take 1 Univers 10 mg 8-03 tablet by ity of tablet 00:00: mouth 2 (two) Medical times Branch daily as needed (tremor). propranolol 2020-0 Yes [id number] 10mg Take 1 Univers 10 mg 8-03 tablet by ity of tablet 00:00: mouth 2 00 (two) Medical times Branch daily as needed (tremor). propranolol 2020-0 Yes [id number] 10mg Take 1 Univers 10 mg 8-03 tablet by ity of tablet 00:00: mouth 2 00 (two) Medical times Branch daily as needed (tremor). propranolol 2020-0 Yes [id number] 10mg Take 1 [facility] 10 mg 8-03 tablet by ity of tablet 00:00: mouth 2 (two) Medical times Branch daily as needed (tremor). propranolol 2020-0 Yes [id number] 10mg Take 1 Univers 10 mg 8-03 tablet by [facility] tablet 00:00: mouth (two) Medical times [facility] daily as needed (tremor). propranolol 2020-0 Yes [id number] 10mg Take 1 [facility] 10 mg 8-03 tablet by [facility] tablet 00:00: mouth (two) Medical times [facility] daily as needed (tremor). propranolol 2020-0 Yes [id number] 10mg Take 1 [facility] 10 mg 8-03 tablet by [facility] tablet 00:00: mouth (two) Medical times [facility] daily as needed (tremor). propranolol 2020-0 Yes [id number] 10mg Take 1 [facility] 10 mg 8-03 tablet by [facility] tablet 00:00: mouth (two) Medical times [facility] daily as needed (tremor). propranolol 2020-0 Yes [id number] 10mg Take 1 [facility] 10 mg 8-03 tablet by [facility] tablet 00:00: mouth (two) Medical times [facility] daily as needed (tremor). propranolol 2020-0 Yes [id number] 10mg Take 1 [facility] 10 mg 8-03 tablet by [facility] tablet 00:00: mouth 00 (two) Medical times [facility] daily as needed (tremor). propranolol 2020-0 Yes [id number] 10mg Take 1 [facility] 10 mg 8-03 tablet by [facility] tablet 00:00: mouth 2 00 (two) Medical times [facility] daily as needed (tremor). propranolol 2020-0 Yes [id number] 10mg Take 1 [facility] 10 mg 8-03 tablet by [facility] tablet 00:00: mouth 2 (two) Medical times [facility] daily as needed (tremor). propranolol 2020-0 Yes [id number] 10mg Take 1 [facility] 10 mg 8-03 tablet by [facility] tablet 00:00: mouth 2 00 (two) Medical times [facility] daily as needed (tremor). propranolol 2020-0 Yes [id number] 10mg Take 1 [facility] 10 mg 8-03 tablet by [facility] tablet 00:00: mouth 2 00 (two) Medical times [facility] daily as needed (tremor). propranolol 2020-0 Yes [id number] 10mg Take 1 [facility] 10 mg 8-03 tablet by [facility] tablet 00:00: mouth 2 00 (two) Medical times [facility] daily as needed (tremor). propranolol 2020-0 Yes [id number] 10mg Take 1 [facility] 10 mg 8-03 tablet by [facility] tablet 00:00: mouth 2 00 (two) Medical times [facility] daily as needed (tremor). propranolol 2020-0 Yes [id number] 10mg Take 1 [facility] 10 mg 8-03 tablet by [facility] tablet 00:00: mouth (two) Medical times [facility] daily as needed (tremor). propranolol 2020-0 Yes [id number] 10mg Take 1 [facility] 10 mg 8-03 tablet by [facility] tablet 00:00: mouth (two) Medical times [facility] daily as needed (tremor). propranolol 2020-0 Yes [id number] 10mg Take 1 [facility] 10 mg 8-03 tablet by [facility] tablet 00:00: mouth (two) Medical times [facility] daily as needed (tremor). propranolol 2020-0 Yes [id number] 10mg Take 1 [facility] 10 mg 8-03 tablet by [facility] tablet 00:00: mouth 00 (two) Medical times [facility] daily as needed (tremor). propranolol 2020-0 Yes [id number] 10mg Take 1 [facility] 10 mg 8-03 tablet by [facility] tablet 00:00: mouth 2 00 (two) Medical times [facility] daily as needed (tremor). propranolol 2020-0 Yes [id number] 10mg Take 1 [facility] 10 mg 8-03 tablet by [facility] tablet 00:00: mouth 2 00 (two) Medical times [facility] daily as needed (tremor). propranolol 2020-0 Yes [id number] 10mg Take 1 [facility] 10 mg 8-03 tablet by [facility] tablet 00:00: mouth 2 00 (two) Medical times [facility] daily as needed (tremor). propranolol 2020-0 Yes [id number] 10mg Take 1 [facility] 10 mg 8-03 tablet by [facility] tablet 00:00: mouth 2 (two) Medical times [facility] daily as needed (tremor). propranolol 2020-0 Yes [id number] 10mg Take 1 [facility] 10 mg 8-03 tablet by [facility] tablet 00:00: mouth 2 (two) Medical times [facility] daily as needed (tremor). propranolol 2020-0 Yes [id number] 10mg Take 1 [facility] 10 mg 8-03 tablet by [facility] tablet 00:00: mouth 2 (two) Medical times [facility] daily as needed (tremor). propranolol 2020-0 Yes [id number] 10mg Take 1 [facility] 10 mg 8-03 tablet by [facility] tablet 00:00: mouth 2 (two) Medical times [facility] daily as needed (tremor). propranolol 2020-0 Yes [id number] 10mg Take 1 [facility] 10 mg 8-03 tablet by [facility] tablet 00:00: mouth 2 (two) Medical times [facility] daily as needed (tremor). propranolol 2020-0 Yes [id number] 10mg Take 1 [facility] 10 mg 8-03 tablet by [facility] tablet 00:00: mouth 2 (two) Medical times [facility] daily as needed (tremor). divalproex 2020-0 Yes [id number] 500mg Take 2 [facility] 250 mg 7-14 tablets by [facility] 24 hr 00:00: mouth at [place] tablet 00 bedtime. [facility] divalproex 2020-0 Yes [id number] 500mg Take 2 [facility] 250 mg 7-14 tablets by [facility] 24 hr 00:00: mouth at [place] tablet 00 bedtime. [facility] divalproex 2020-0 Yes [id number] 500mg Take 2 [facility] 250 mg 7-14 tablets by [facility] 24 hr 00:00: mouth at [place] tablet 00 bedtime. [facility] divalproex 2020-0 Yes [id number] 500mg Take 2 [facility] 250 mg 7-14 tablets by [facility] 24 hr 00:00: mouth at [place] tablet 00 bedtime. [facility] divalproex 2020-0 Yes [id number] 500mg Take 2 [facility] 250 mg 7-14 tablets by [facility] 24 hr 00:00: mouth at [place] tablet 00 bedtime. [facility] divalproex 2020-0 Yes [id number] 500mg Take 2 [facility] 250 mg 7-14 tablets by [facility] 24 hr 00:00: mouth at [place] tablet 00 bedtime. [facility] divalproex 2020-0 Yes [id number] 500mg Take 2 [facility] 250 mg 7-14 tablets by [facility] 24 hr 00:00: mouth at [place] tablet 00 bedtime. [facility] divalproex 2020-0 Yes [id number] 500mg Take 2 [facility] 250 mg 7-14 tablets by [facility] 24 hr 00:00: mouth at [place] tablet 00 bedtime. [facility] divalproex 2020-0 Yes [id number] 500mg Take 2 [facility] 250 mg 7-14 tablets by [facility] 24 hr 00:00: mouth at [place] tablet 00 bedtime. [facility] divalproex 2020-0 Yes [id number] 500mg Take 2 [facility] 250 mg 7-14 tablets by [facility] 24 hr 00:00: mouth at [place] tablet 00 bedtime. [facility] divalproex 2020-0 Yes [id number] 500mg Take 2 [facility] 250 mg 7-14 tablets by [facility] 24 hr 00:00: mouth at [place] tablet 00 bedtime. [facility] divalproex 2020-0 Yes [id number] 500mg Take 2 [facility] 250 mg 7-14 tablets by [facility] 24 hr 00:00: mouth at [place] tablet 00 bedtime. [facility] divalproex 2020-0 Yes [id number] 500mg Take 2 [facility] 250 mg 7-14 tablets by [facility] 24 hr 00:00: mouth at [place] tablet 00 bedtime. [facility] divalproex 2020-0 Yes [id number] 500mg Take 2 [facility] 250 mg 7-14 tablets by [facility] 24 hr 00:00: mouth at [place] tablet 00 bedtime. [facility] divalproex 2020-0 Yes [id number] 500mg Take 2 [facility] 250 mg 7-14 tablets by [facility] 24 hr 00:00: mouth at [place] tablet 00 bedtime. [facility] divalproex 2020-0 Yes [id number] 500mg Take 2 [facility] 250 mg 7-14 tablets by [facility] 24 hr 00:00: mouth at [place] tablet 00 bedtime. [facility] divalproex 2020-0 Yes [id number] 500mg Take 2 [facility] 250 mg 7-14 tablets by [facility] 24 hr 00:00: mouth at [place] tablet 00 bedtime. [facility] divalproex 2020-0 Yes [id number] 500mg Take 2 [facility] 250 mg 7-14 tablets by [facility] 24 hr 00:00: mouth at [place] tablet 00 bedtime. [facility] divalproex 2020-0 Yes [id number] 500mg Take 2 [facility] 250 mg 7-14 tablets by [facility] 24 hr 00:00: mouth at [place] tablet 00 bedtime. [facility] divalproex 2020-0 Yes [id number] 500mg Take 2 [facility] 250 mg 7-14 tablets by [facility] 24 hr 00:00: mouth at [place] tablet 00 bedtime. [facility] divalproex 2020-0 Yes [id number] 500mg Take 2 [facility] 250 mg 7-14 tablets by [facility] 24 hr 00:00: mouth at [place] tablet 00 bedtime. [facility] divalproex 2020-0 Yes [id number] 500mg Take 2 [facility] 250 mg 7-14 tablets by [facility] 24 hr 00:00: mouth at [place] tablet 00 bedtime. [facility] divalproex 2020-0 Yes [id number] 500mg Take 2 [facility] 250 mg 7-14 tablets by [facility] 24 hr 00:00: mouth at [place] tablet 00 bedtime. [facility] divalproex 2020-0 Yes [id number] 500mg Take 2 [facility] 250 mg 7-14 tablets by [facility] 24 hr 00:00: mouth at [place] tablet 00 bedtime. [facility] divalproex 2020-0 Yes [id number] 500mg Take 2 [facility] 250 mg 7-14 tablets by [facility] 24 hr 00:00: mouth at [place] tablet 00 bedtime. [facility] divalproex 2020-0 Yes [id number] 500mg Take 2 [facility] 250 mg 7-14 tablets by [facility] 24 hr 00:00: mouth at [place] tablet 00 bedtime. [facility] divalproex 2020-0 Yes [id number] 500mg Take 2 [facility] 250 mg 7-14 tablets by [facility] 24 hr 00:00: mouth at [place] tablet 00 bedtime. [facility] divalproex 2020-0 Yes [id number] 500mg Take 2 [facility] 250 mg 7-14 tablets by [facility] 24 hr 00:00: mouth at [place] tablet 00 bedtime. [facility] mirtazapine 2020-0 Yes [id number] 7.5mg Take 1 [facility] 7.5 mg 7-10 105 tablet by [facility] tablet 00:00: mouth at [place] [address] bedtime. [facility] mirtazapine 2020-0 Yes [id number] 7.5mg Take 1 [facility] 7.5 mg 7-10 105 tablet by [facility] tablet 00:00: mouth at [place] [address] bedtime. [facility] mirtazapine 2020-0 Yes [id number] 7.5mg Take 1 [facility] 7.5 mg 7-10 105 tablet by [facility] tablet 00:00: mouth at [place] [address] bedtime. [facility] mirtazapine 2020-0 Yes [id number] 7.5mg Take 1 [facility] 7.5 mg 7-10 105 tablet by [facility] tablet 00:00: mouth at [place] [address] bedtime. [facility] mirtazapine 2020-0 Yes [id number] 7.5mg Take 1 [facility] 7.5 mg 7-10 105 tablet by [facility] tablet 00:00: mouth at [place] [address] bedtime. [facility] mirtazapine 2020-0 Yes [id number] 7.5mg Take 1 [facility] 7.5 mg 7-10 105 tablet by [facility] tablet 00:00: mouth at [place] [address] bedtime. [facility] mirtazapine 2020-0 Yes [id number] 7.5mg Take 1 [facility] 7.5 mg 7-10 105 tablet by [facility] tablet 00:00: mouth at [place] [address] bedtime. [facility] mirtazapine 2020-0 Yes [id number] 7.5mg Take 1 [facility] 7.5 mg 7-10 105 tablet by [facility] tablet 00:00: mouth at [place] [address] bedtime. [facility] mirtazapine 2020-0 Yes [id number] 7.5mg Take 1 [facility] 7.5 mg 7-10 105 tablet by [facility] tablet 00:00: mouth at [place] [address] bedtime. [facility] mirtazapine 2020-0 Yes [id number] 7.5mg Take 1 [facility] 7.5 mg 7-10 105 tablet by [facility] tablet 00:00: mouth at [place] [address] bedtime. [facility] mirtazapine 2020-0 Yes [id number] 7.5mg Take 1 [facility] 7.5 mg 7-10 105 tablet by [facility] tablet 00:00: mouth at [place] [address] bedtime. [facility] mirtazapine 2020-0 Yes [id number] 7.5mg Take 1 [facility] 7.5 mg 7-10 105 tablet by [facility] tablet 00:00: mouth at [place] [address] bedtime. [facility] mirtazapine 2020-0 Yes [id number] 7.5mg Take 1 [facility] 7.5 mg 7-10 105 tablet by [facility] tablet 00:00: mouth at [place] [address] bedtime. [facility] mirtazapine 2020-0 Yes [id number] 7.5mg Take 1 [facility] 7.5 mg 7-10 105 tablet by [facility] tablet 00:00: mouth at [place] [address] bedtime. [facility] mirtazapine 2020-0 Yes [id number] 7.5mg Take 1 [facility] 7.5 mg 7-10 105 tablet by [facility] tablet 00:00: mouth at [place] [address] bedtime. [facility] mirtazapine 2020-0 Yes [id number] 7.5mg Take 1 [facility] 7.5 mg 7-10 105 tablet by [facility] tablet 00:00: mouth at [place] [address] bedtime. [facility] mirtazapine 2020-0 Yes [id number] 7.5mg Take 1 [facility] 7.5 mg 7-10 105 tablet by [facility] tablet 00:00: mouth at [place] [address] bedtime. [facility] mirtazapine 2020-0 Yes [id number] 7.5mg Take 1 [facility] 7.5 mg 7-10 105 tablet by [facility] tablet 00:00: mouth at [place] [address] bedtime. [facility] mirtazapine 2020-0 Yes [id number] 7.5mg Take 1 [facility] 7.5 mg 7-10 105 tablet by [facility] tablet 00:00: mouth at [place] [address] bedtime. [facility] mirtazapine 2020-0 Yes [id number] 7.5mg Take 1 [facility] 7.5 mg 7-10 105 tablet by [facility] tablet 00:00: mouth at [place] [address] bedtime. [facility] mirtazapine 2020-0 Yes [id number] 7.5mg Take 1 [facility] 7.5 mg 7-10 105 tablet by [facility] tablet 00:00: mouth at [place] [address] bedtime. [facility] mirtazapine 2020-0 Yes [id number] 7.5mg Take 1 [facility] 7.5 mg 7-10 105 tablet by [facility] tablet 00:00: mouth at [place] [address] bedtime. [facility] paliperidon 2020-0 Yes [id number] TAKE 1 [facility] e 3 mg 24 4-24 TABLET BY [facility] f hour tablet 00:00: MOUTH ONCE DAILY [facility] paliperidon 2020-0 Yes [id number] TAKE 1 [facility] e 3 mg 24 4-24 TABLET BY [facility] f hour tablet 00:00: MOUTH ONCE DAILY [facility] paliperidon 2020-0 Yes [id number] TAKE 1 [facility] e 3 mg 24 4-24 TABLET BY [facility] f hour tablet 00:00: MOUTH ONCE DAILY [facility] paliperidon 2020-0 Yes [id number] TAKE 1 [facility] e 3 mg 24 4-24 TABLET BY [facility] f hour tablet 00:00: MOUTH ONCE DAILY [facility] paliperidon 2020-0 Yes [id number] TAKE 1 [facility] e 3 mg 24 4-24 TABLET BY [facility] f hour tablet 00:00: MOUTH ONCE DAILY [facility] paliperidon 2020-0 Yes [id number] TAKE 1 [facility] e 3 mg 24 4-24 TABLET BY [facility] f hour tablet 00:00: MOUTH ONCE DAILY [facility] paliperidon 2020-0 Yes [id number] TAKE 1 [facility] e 3 mg 24 4-24 TABLET BY [facility] f hour tablet 00:00: MOUTH ONCE DAILY [facility] paliperidon 2020-0 Yes [id number] TAKE 1 [facility] e 3 mg 24 4-24 TABLET BY [facility] f hour tablet 00:00: MOUTH ONCE DAILY [facility] paliperidon 2020-0 Yes [id number] TAKE 1 [facility] e 3 mg 24 4-24 TABLET BY [facility] f hour tablet 00:00: MOUTH ONCE DAILY [facility] paliperidon 2020-0 Yes [id number] TAKE 1 [facility] e 3 mg 24 4-24 TABLET BY [facility] f hour tablet 00:00: MOUTH ONCE DAILY [facility] paliperidon 2020-0 Yes [id number] TAKE 1 [facility] e 3 mg 24 4-24 TABLET BY [facility] f hour tablet 00:00: MOUTH ONCE DAILY [facility] paliperidon 2020-0 Yes [id number] TAKE 1 [facility] e 3 mg 24 4-24 TABLET BY [facility] f hour tablet 00:00: MOUTH ONCE DAILY [facility] paliperidon 2020-0 Yes [id number] TAKE 1 [facility] e 3 mg 24 4-24 TABLET BY [facility] f hour tablet 00:00: MOUTH ONCE DAILY [facility] paliperidon 2020-0 Yes [id number] TAKE 1 [facility] e 3 mg 24 4-24 TABLET BY [facility] f hour tablet 00:00: MOUTH ONCE DAILY [facility] paliperidon 2020-0 Yes [id number] TAKE 1 [facility] e 3 mg 24 4-24 TABLET BY [facility] f hour tablet 00:00: MOUTH ONCE DAILY [facility] paliperidon 2020-0 Yes [id number] TAKE 1 [facility] e 3 mg 24 4-24 TABLET BY [facility] f hour tablet 00:00: MOUTH ONCE DAILY [facility] paliperidon 2020-0 Yes [id number] TAKE 1 [facility] e 3 mg 24 4-24 TABLET BY [facility] f hour tablet 00:00: MOUTH ONCE DAILY [facility] paliperidon 2020-0 Yes [id number] TAKE 1 [facility] e 3 mg 24 4-24 TABLET BY [facility] f hour tablet 00:00: MOUTH ONCE DAILY [facility] paliperidon 2020-0 Yes [id number] TAKE 1 [facility] e 3 mg 24 4-24 TABLET BY [facility] f hour tablet 00:00: MOUTH ONCE DAILY [facility] paliperidon 2020-0 Yes [id number] TAKE 1 [facility] e 3 mg 24 4-24 TABLET BY [facility] f hour tablet 00:00: MOUTH ONCE DAILY [facility] paliperidon 2020-0 Yes [id number] TAKE 1 [facility] e 3 mg 24 4-24 TABLET BY [facility] f hour tablet 00:00: MOUTH ONCE DAILY [facility] paliperidon 2020-0 Yes [id number] TAKE 1 [facility] e 3 mg 24 4-24 TABLET BY [facility] f hour tablet 00:00: MOUTH ONCE DAILY [facility] paliperidon 2020-0 Yes [id number] TAKE 1 [facility] e 3 mg 24 4-24 TABLET BY [facility] f hour tablet 00:00: MOUTH ONCE DAILY [facility] paliperidon 2020-0 Yes [id number] TAKE 1 [facility] e 3 mg 24 4-24 TABLET BY [facility] f hour tablet 00:00: MOUTH ONCE DAILY [facility] paliperidon 2020-0 Yes [id number] TAKE 1 [facility] e 3 mg 24 4-24 TABLET BY [facility] f hour tablet 00:00: MOUTH ONCE DAILY [facility] paliperidon 2020-0 Yes [id number] TAKE 1 [facility] e 3 mg 24 4-24 TABLET BY [facility] f hour tablet 00:00: MOUTH ONCE [place] 00 DAILY [facility] paliperidon 2020-0 Yes [id number] TAKE 1 [facility] e 3 mg 24 4-24 TABLET BY [facility] f hour tablet 00:00: MOUTH ONCE [place] 00 DAILY [facility] paliperidon 2020-0 Yes [id number] TAKE 1 [facility] e 3 mg 24 4-24 TABLET BY [facility] f hour tablet 00:00: MOUTH ONCE 00 DAILY [facility] divalproex 2020-0 Yes [id number] 500mg Take 2 [facility] ER 250 mg 4-23 tablets by [facility] 24 hr 00:00: mouth at [place] tablet 00 bedtime. [facility] divalproex 2020-0 Yes [id number] 500mg Take 2 [facility] ER 250 mg 4-23 tablets by [facility] 24 hr 00:00: mouth at [place] tablet 00 bedtime. [facility] divalproex 2020-0 Yes [id number] 500mg Take 2 [facility] ER 250 mg 4-23 tablets by [facility] 24 hr 00:00: mouth at [place] tablet 00 bedtime. [facility] divalproex 2020-0 Yes [id number] 500mg Take 2 [facility] ER 250 mg 4-23 tablets by [facility] 24 hr 00:00: mouth at [place] tablet 00 bedtime. [facility] divalproex 2020-0 Yes [id number] 500mg Take 2 [facility] ER 250 mg 4-23 tablets by [facility] 24 hr 00:00: mouth at [place] tablet 00 bedtime. [facility] TOPIRAMATE 2020-0 Yes [id number] TAKE 1 [facility] 25 mg 4-22 TABLET BY [facility] tablet 00:00: MOUTH TWO [place] TIMES Medical DAILY Branch TOPIRAMATE 2020-0 Yes [id number] TAKE 1 [facility] 25 mg 4-22 TABLET BY [facility] tablet 00:00: MOUTH TWO [place] TIMES Medical DAILY Branch TOPIRAMATE 2020-0 Yes [id number] TAKE 1 [facility] 25 mg 4-22 TABLET BY [facility] tablet 00:00: MOUTH TWO [place] TIMES Medical DAILY Branch TOPIRAMATE 2020-0 Yes [id number] TAKE 1 [facility] 25 mg 4-22 TABLET BY [facility] tablet 00:00: MOUTH TWO [place] TIMES Medical DAILY Branch TOPIRAMATE 2020-0 Yes [id number] TAKE 1 [facility] 25 mg 4-22 TABLET BY [facility] tablet 00:00: MOUTH TWO [place] TIMES Medical DAILY Branch TOPIRAMATE 2020-0 Yes [id number] TAKE 1 [facility] 25 mg 4-22 TABLET BY [facility] tablet 00:00: MOUTH TWO [place] TIMES Medical DAILY Branch TOPIRAMATE 2020-0 Yes [id number] TAKE 1 [facility] 25 mg 4-22 TABLET BY [facility] tablet 00:00: MOUTH TWO [place] TIMES Medical DAILY Branch TOPIRAMATE 2020-0 Yes [id number] TAKE 1 [facility] 25 mg 4-22 TABLET BY [facility] tablet 00:00: MOUTH TWO [place] TIMES Medical DAILY Branch TOPIRAMATE 2020-0 Yes [id number] TAKE 1 [facility] 25 mg 4-22 TABLET BY [facility] tablet 00:00: MOUTH TWO [place] TIMES Medical DAILY Branch TOPIRAMATE 2020-0 Yes [id number] TAKE 1 [facility] 25 mg 4-22 TABLET BY [facility] tablet 00:00: MOUTH TWO [place] TIMES Medical DAILY Branch TOPIRAMATE 2020-0 Yes [id number] TAKE 1 [facility] 25 mg 4-22 TABLET BY [facility] tablet 00:00: MOUTH TWO [place] TIMES Medical DAILY Branch TOPIRAMATE 2020-0 Yes [id number] TAKE 1 [facility] 25 mg 4-22 TABLET BY [facility] tablet 00:00: MOUTH TWO [place] Medical DAILY Branch TOPIRAMATE 2020-0 Yes [id number] TAKE 1 [facility] 25 mg 4-22 TABLET BY [facility] tablet 00:00: MOUTH TWO [place] Medical DAILY Branch TOPIRAMATE 2020-0 Yes [id number] TAKE 1 [facility] 25 mg 4-22 TABLET BY [facility] tablet 00:00: MOUTH TWO [place] Medical DAILY Branch TOPIRAMATE 2020-0 Yes [id number] TAKE 1 [facility] 25 mg 4-22 TABLET BY [facility] tablet 00:00: MOUTH TWO [place] TIMES Medical DAILY Branch TOPIRAMATE 2020-0 Yes [id number] TAKE 1 [facility] 25 mg 4-22 TABLET BY [facility] tablet 00:00: MOUTH TWO [place] TIMES Medical DAILY Branch TOPIRAMATE 2020-0 Yes [id number] TAKE 1 [facility] 25 mg 4-22 TABLET BY [facility] tablet 00:00: MOUTH TWO [place] TIMES Medical DAILY Branch TOPIRAMATE 2020-0 Yes [id number] TAKE 1 [facility] 25 mg 4-22 TABLET BY [facility] tablet 00:00: MOUTH TWO [place] TIMES Medical DAILY Branch TOPIRAMATE 2020-0 Yes [id number] TAKE 1 [facility] 25 mg 4-22 TABLET BY [facility] tablet 00:00: MOUTH TWO [place] TIMES Medical DAILY Branch TOPIRAMATE 2020-0 Yes [id number] TAKE 1 [facility] 25 mg 4-22 TABLET BY [facility] tablet 00:00: MOUTH TWO [place] TIMES Medical DAILY Branch TOPIRAMATE 2020-0 Yes [id number] TAKE 1 [facility] 25 mg 4-22 TABLET BY [facility] tablet 00:00: MOUTH TWO [place] TIMES Medical DAILY Branch TOPIRAMATE 2020-0 Yes [id number] TAKE 1 [facility] 25 mg 4-22 TABLET BY [facility] tablet 00:00: MOUTH TWO [place] TIMES Medical DAILY Branch TOPIRAMATE 2020-0 Yes [id number] TAKE 1 [facility] 25 mg 4-22 TABLET BY [facility] tablet 00:00: MOUTH TWO [place] TIMES Medical DAILY Branch TOPIRAMATE 2020-0 Yes [id number] TAKE 1 [facility] 25 mg 4-22 TABLET BY [facility] tablet 00:00: MOUTH TWO [place] Medical DAILY Branch TOPIRAMATE 2020-0 Yes [id number] TAKE 1 [facility] 25 mg 4-22 TABLET BY [facility] tablet 00:00: MOUTH TWO [place] TIMES Medical DAILY Branch TOPIRAMATE 2020-0 Yes [id number] TAKE 1 [facility] 25 mg 4-22 TABLET BY [facility] of tablet 00:00: MOUTH TWO [place] Medical DAILY Branch TOPIRAMATE 2020-0 Yes [id number] TAKE 1 [facility] 25 mg 4-22 TABLET BY [facility] tablet 00:00: [facility] TWO [place] Medical DAILY Branch TOPIRAMATE 2020-0 Yes [id number] TAKE 1 [facility] 25 mg 4-22 TABLET BY [facility] of tablet 00:00: MOUTH TWO [place] TIMES Medical DAILY Branch TOPIRAMATE 2020-0 Yes [id number] TAKE 1 [facility] 25 mg 4-22 TABLET BY [facility] of tablet 00:00: MOUTH TWO [place] TIMES Medical DAILY Branch TOPIRAMATE 2020-0 Yes [id number] TAKE 1 [facility] 25 mg 4-22 TABLET BY [facility] of tablet 00:00: MOUTH TWO [place] TIMES Medical DAILY Branch TOPIRAMATE 2020-0 Yes [id number] TAKE 1 [facility] 25 mg 4-22 TABLET BY [facility] of tablet 00:00: MOUTH TWO [place] TIMES Medical DAILY Branch TOPIRAMATE 2020-0 Yes [id number] TAKE 1 [facility] 25 mg 4-22 TABLET BY [facility] of tablet 00:00: MOUTH TWO [place] TIMES Medical DAILY Branch TOPIRAMATE 2020-0 Yes [id number] TAKE 1 [facility] 25 mg 4-22 TABLET BY [facility] of tablet 00:00: MOUTH TWO [place] TIMES Medical DAILY Branch TOPIRAMATE 2020-0 Yes [id number] TAKE 1 [facility] 25 mg 4-22 TABLET BY [facility] of tablet 00:00: MOUTH TWO [place] TIMES Medical DAILY Branch TOPIRAMATE 2020-0 Yes [id number] TAKE 1 [facility] 25 mg 4-22 TABLET BY [facility] of tablet 00:00: MOUTH TWO [place] TIMES Medical DAILY Branch TOPIRAMATE 2020-0 Yes [id number] TAKE 1 [facility] 25 mg 4-22 TABLET BY [facility] of tablet 00:00: MOUTH TWO [place] TIMES Medical DAILY Branch TOPIRAMATE 2020-0 Yes [id number] TAKE 1 [facility] 25 mg 4-22 TABLET BY [facility] of tablet 00:00: MOUTH TWO [place] TIMES Medical DAILY Branch TOPIRAMATE 2020-0 Yes [id number] TAKE 1 [facility] 25 mg 4-22 TABLET BY [facility] of tablet 00:00: MOUTH TWO [place] TIMES Medical DAILY Branch TOPIRAMATE 2020-0 Yes [id number] TAKE 1 [facility] 25 mg 4-22 TABLET BY [facility] of tablet 00:00: MOUTH TWO [place] TIMES Medical DAILY Branch TOPIRAMATE 2020-0 Yes [id number] TAKE 1 [facility] 25 mg 4-22 TABLET BY [facility] of tablet 00:00: MOUTH TWO [place] TIMES Medical DAILY Branch TOPIRAMATE 2020-0 Yes [id number] TAKE 1 [facility] 25 mg 4-22 TABLET BY [facility] of tablet 00:00: MOUTH TWO [place] TIMES Medical DAILY Branch TOPIRAMATE 2020-0 Yes [id number] TAKE 1 [facility] 25 mg 4-22 TABLET BY [facility] of tablet 00:00: MOUTH TWO [place] TIMES Medical DAILY Branch clonazePAM 2020-0 Yes [id number] .5mg Take 1 [facility] n[facility] 0.5 mg 3-17 tablet by [facility] of tablet 00:00: mouth at [place] [address] bedtime. [facility] clonazePAM 2020-0 Yes [id number] .5mg Take 1 [facility] nivers 0.5 mg 3-17 tablet by [facility] of tablet 00:00: mouth at [place] [address] bedtime. [facility] clonazePAM 2020-0 Yes [id number] .5mg Take 1 [facility] nivers 0.5 mg 3-17 tablet by [facility] of tablet 00:00: mouth at [place] [address] bedtime. [facility] clonazePAM 2020-0 Yes [id number] .5mg Take 1 [facility] nivers 0.5 mg 3-17 tablet by [facility] of tablet 00:00: mouth at [place] [address] bedtime. [facility] clonazePAM 2020-0 Yes [id number] .5mg Take 1 [facility] nivers 0.5 mg 3-17 tablet by [facility] of tablet 00:00: mouth at [place] [address] bedtime. [facility] clonazePAM 2020-0 Yes [id number] .5mg Take 1 [facility] nivers 0.5 mg 3-17 tablet by [facility] of tablet 00:00: mouth at [place] [address] bedtime. [facility] clonazePAM 2020-0 Yes [id number] .5mg Take 1 [facility] nivers 0.5 mg 3-17 tablet by [facility] of tablet 00:00: mouth at [place] [address] bedtime. [facility] clonazePAM 2020-0 Yes [id number] .5mg Take 1 [facility] nivers 0.5 mg 3-17 tablet by [facility] of tablet 00:00: mouth at [place] [address] bedtime. [facility] clonazePAM 2020-0 Yes [id number] .5mg Take 1 [facility] nivers 0.5 mg 3-17 tablet by [facility] of tablet 00:00: mouth at [place] [address] bedtime. [facility] clonazePAM 2020-0 Yes [id number] .5mg Take 1 [facility] nivers 0.5 mg 3-17 tablet by [facility] of tablet 00:00: mouth at [place] [address] bedtime. [facility] clonazePAM 2020-0 Yes [id number] .5mg Take 1 [facility] nivers 0.5 mg 3-17 tablet by [facility] of tablet 00:00: mouth at [place] [address] bedtime. [facility] clonazePAM 2020-0 Yes [id number] .5mg Take 1 [facility] nivers 0.5 mg 3-17 tablet by [facility] of tablet 00:00: mouth at [place] [address] bedtime. [facility] clonazePAM 2020-0 Yes [id number] .5mg Take 1 [facility] nivers 0.5 mg 3-17 tablet by [facility] of tablet 00:00: mouth at [place] [address] bedtime. [facility] clonazePAM 2020-0 Yes [id number] .5mg Take 1 [facility] nivers 0.5 mg 3-17 tablet by [facility] tablet 00:00: mouth at [place] [address] bedtime. [facility] clonazePAM 2020-0 Yes [id number] .5mg Take 1 [facility] nivers 0.5 mg 3-17 tablet by [facility] of tablet 00:00: mouth at [place] [address] bedtime. [facility] clonazePAM 2020-0 Yes [id number] .5mg Take 1 [facility] nivers 0.5 mg 3-17 tablet by [facility] of tablet 00:00: mouth at [place] [address] bedtime. [facility] clonazePAM 2020-0 Yes [id number] .5mg Take 1 [facility] nivers 0.5 mg 3-17 tablet by [facility] of tablet 00:00: mouth at [place] [address] bedtime. Medical Branch clonazePAM 2020-0 Yes [id number] .5mg Take 1 U nivers 0.5 mg 3-17 tablet by [facility] tablet 00:00: mouth at [place] [address] bedtime. [facility] clonazePAM 2020-0 Yes [id number] .5mg Take 1 [facility] nivers 0.5 mg 3-17 tablet by ity of tablet 00:00: mouth at [place] [address] bedtime. [facility] clonazePAM 2020-0 Yes [id number] .5mg Take 1 [facility] nivers 0.5 mg 3-17 tablet by it[facility] of tablet 00:00: mouth at [place] [address] bedtime. [facility] clonazePAM 2020-0 Yes [id number] .5mg Take 1 [facility] nivers 0.5 mg 3-17 tablet by ity of tablet 00:00: mouth at [place] [address] bedtime. [facility] clonazePAM 2020-0 Yes [id number] .5mg Take 1 [facility] nivers 0.5 mg 3-17 tablet by it[facility] of tablet 00:00: mouth at [place] [address] bedtime. [facility] clonazePAM 2020-0 Yes [id number] .5mg Take 1 [facility] nivers 0.5 mg 3-17 tablet by ity of tablet 00:00: mouth at [place] [address] bedtime. [facility] clonazePAM 2020-0 Yes [id number] .5mg Take 1 [facility] nivers 0.5 mg 3-17 tablet by [facility] of tablet 00:00: mouth at [place] [address] bedtime. [facility] clonazePAM 2020-0 Yes [id number] .5mg Take 1 [facility] nivers 0.5 mg 3-17 tablet by ity of tablet 00:00: mouth at [place] [address] bedtime. [facility] clonazePAM 2020-0 Yes [id number] .5mg Take 1 [facility] nivers 0.5 mg 3-17 tablet by [facility] of tablet 00:00: mouth at [place] [address] bedtime. [facility] clonazePAM 2020-0 Yes [id number] .5mg Take 1 [facility] nivers 0.5 mg 3-17 tablet by [facility] of tablet 00:00: mouth at [place] 00 bedtime. [facility] clonazePAM 2020-0 Yes [id number] .5mg Take 1 [facility] nivers 0.5 mg 3-17 tablet by [facility] of tablet 00:00: mouth at [place] 00 bedtime. [facility] clonazePAM 2020-0 Yes [id number] .5mg Take 1 [facility] nivers 0.5 mg 3-17 tablet by [facility] of tablet 00:00: mouth at [place] 00 bedtime. [facility] clonazePAM 2020-0 Yes [id number] .5mg Take 1 [facility] n[facility] 0.5 mg 3-17 tablet by [facility] of tablet 00:00: mouth at [place] 00 bedtime. [facility] clonazePAM 2020-0 Yes [id number] .5mg Take 1 [facility] n[facility] 0.5 mg 3-17 tablet by [facility] of tablet 00:00: mouth at [place] 00 bedtime. [facility] clonazePAM 2020-0 Yes [id number] .5mg Take 1 [facility] n[facility] 0.5 mg 3-17 tablet by [facility] of tablet 00:00: mouth at [place] 00 bedtime. [facility] clonazePAM 2020-0 Yes [id number] .5mg Take 1 [facility] n[facility] 0.5 mg 3-17 tablet by [facility] tablet 00:00: mouth at [place] 00 bedtime. [facility] divalproex 2020-0 Yes [id number] 500mg Take 2 [facility] 250 mg 2-24 tablets by [facility] 24 hr 00:00: mouth at [place] tablet 00 bedtime. [facility] divalproex 2020-0 Yes [id number] 500mg Take 2 [facility] 250 mg 2-24 tablets by [facility] 24 hr 00:00: mouth at [place] tablet 00 bedtime. [facility] divalproex 2020-0 Yes [id number] 500mg Take 2 [facility] 250 mg 2-24 tablets by [facility] of 24 hr 00:00: mouth at [place] tablet 00 bedtime. [facility] divalproex 2020-0 Yes [id number] 500mg Take 2 [facility] 250 mg 2-24 tablets by [facility] of 24 hr 00:00: mouth at [place] tablet 00 bedtime. [facility] divalproex 2020-0 Yes [id number] 500mg Take 2 [facility] 250 mg 2-24 tablets by [facility] of 24 hr 00:00: mouth at [place] tablet 00 bedtime. [facility] divalproex 2020-0 Yes [id number] 500mg Take 2 [facility] 250 mg 2-24 tablets by [facility] of 24 hr 00:00: mouth at [place] tablet 00 bedtime. [facility] MIRTAZAPINE 2020-0 Yes [id number] TAKE 1 [facility] 7.5 mg 2-14 105 TABLET BY it[facility] of tablet 00:00: MOUTH [place] 00 EVERYDAY Medical AT [facility] MIRTAZAPINE 2020-0 Yes [id number] TAKE 1 [facility] 7.5 mg 2-14 105 TABLET BY ity of tablet 00:00: MOUTH [place] 00 EVERYDAY Medical AT BEDTIME [place] MIRTAZAPINE 2020-0 Yes [id number] TAKE 1 [facility] 7.5 mg 2-14 105 TABLET BY ity of tablet 00:00: MOUTH [place] 00 EVERYDAY Medical AT [facility] MIRTAZAPINE 2020-0 Yes [id number] TAKE 1 [facility] 7.5 mg 2-14 105 TABLET BY ity of tablet 00:00: [facility] 00 EVERYDAY Medical AT [facility] MIRTAZAPINE 2020-0 Yes [id number] TAKE 1 [facility] 7.5 mg 2-14 105 TABLET BY ity of tablet 00:00: MOUTH [place] 00 EVERYDAY Medical AT [facility] MIRTAZAPINE 2020-0 Yes [id number] TAKE 1 [facility] 7.5 mg 2-14 105 TABLET BY ity of tablet 00:00: MOUTH [place] 00 EVERYDAY Medical AT [facility] MIRTAZAPINE 2020-0 Yes [id number] TAKE 1 [facility] 7.5 mg 2-14 105 TABLET BY ity of tablet 00:00: MOUTH [place] 00 EVERYDAY Medical AT [facility] MIRTAZAPINE 2020-0 Yes [id number] TAKE 1 [facility] 7.5 mg 2-14 105 TABLET BY it[facility] tablet 00:00: MOUTH [place] [facility] Yes [id number] TAKE 1 [facility] 7.5 mg 2-14 105 TABLET BY ity of tablet 00:00: MOUTH [place] 00 [facility]-0 Yes [id number] TAKE 1 [facility] 7.5 mg 2-14 105 TABLET BY ity of tablet 00:00: MOUTH [place] 00 EVERYDAY Medical AT [facility] rivaroxaban 2020-0 Yes Take by Un [...] tablet 27 Medical Branch mirtazapine 2020-0 Yes [id number] 7.5mg Take 1 [facility] 7.5 mg 1-23 105 tablet by it[facility] of tablet 00:00: mouth at [place] 00 bedtime. Medical Branch clonazePAM 2020-0 Yes [id number] .5mg Take 1 [facility] nivers 0.5 mg 1-23 tablet by it[facility] of tablet 00:00: mouth at [place] 00 bedtime. Medical Branch paliperidon 2020-0 Yes [id number] TAKE 1 [facility] e 3 mg 24 1-23 TABLET BY ity o f hour tablet 00:00: MOUTH ONCE [place] 00 DAILY Medical Branch mirtazapine 2020-0 Yes [id number] 7.5mg Take 1 [facility] 7.5 mg 1-23 105 tablet by it[facility] of tablet 00:00: mouth at [place] [address] bedtime. Medical Branch clonazePAM 2020-0 Yes [id number] .5mg Take 1 [facility] nivers 0.5 mg 1-23 tablet by ity of tablet 00:00: mouth at [place] [address] bedtime. Medical Branch paliperidon 2020-0 Yes [id number] TAKE 1 [facility] e 3 mg 24 1-23 TABLET BY ity o f hour tablet 00:00: MOUTH ONCE [place] 00 DAILY Medical Branch mirtazapine 2020-0 Yes [id number] 7.5mg Take 1 [facility] 7.5 mg 1-23 105 tablet by ity of tablet 00:00: mouth at [place] [address] bedtime. Medical Branch clonazePAM 2020-0 Yes [id number] .5mg Take 1 [facility] nivers 0.5 mg 1-23 tablet by ity of tablet 00:00: mouth at [place] 00 bedtime. Medical Branch paliperidon 2020-0 Yes [id number] TAKE 1 [facility] e 3 mg 24 1-23 TABLET BY ity o f hour tablet 00:00: MOUTH ONCE [place] 00 DAILY Medical Branch mirtazapine 2020-0 Yes [id number] 7.5mg Take 1 [facility] 7.5 mg 1-23 105 tablet by ity of tablet 00:00: mouth at [place] [address] bedtime. Medical Branch clonazePAM 2020-0 Yes [id number] .5mg Take 1 [facility] nivers 0.5 mg 1-23 tablet by ity of tablet 00:00: mouth at [place] 00 bedtime. Medical Branch paliperidon 2020-0 Yes [id number] TAKE 1 [facility] e 3 mg 24 1-23 TABLET BY ity o f hour tablet 00:00: MOUTH ONCE DAILY Medical Branch clonazePAM 2020-0 Yes [id number] .5mg Take 1 [facility] nivers 0.5 mg 1-23 tablet by ity of tablet 00:00: mouth at [place] 00 bedtime. Medical Branch paliperidon 2020-0 Yes [id number] TAKE 1 [facility] e 3 mg 24 1-23 TABLET BY ity o f hour tablet 00:00: MOUTH ONCE DAILY Medical Branch clonazePAM 2019-0 Yes [id number] .5mg Take 1 [facility] nivers 0.5 mg 1-23 tablet by ity of tablet 00:00: mouth at [place] [address] bedtime. Medical Branch paliperidon 2019-0 Yes [id number] TAKE 1 [facility] e 3 mg 24 1-23 TABLET BY ity o f hour tablet 00:00: MOUTH ONCE DAILY Medical Branch paliperidon 2020-0 Yes [id number] TAKE 1 [facility] e 3 mg 24 1-23 TABLET BY ity o f hour tablet 00:00: MOUTH ONCE DAILY Medical Branch paliperidon 2020-0 Yes [id number] TAKE 1 [facility] e 3 mg 24 1-23 TABLET BY ity o f hour tablet 00:00: MOUTH ONCE DAILY Medical Branch paliperidon 2020-0 Yes [id number] TAKE 1 [facility] e 3 mg 24 1-23 TABLET BY ity o f hour tablet 00:00: MOUTH ONCE DAILY Medical Branch paliperidon 2020-0 Yes [id number] TAKE 1 [facility] e 3 mg 24 1-23 TABLET BY ity o f hour tablet 00:00: MOUTH ONCE DAILY Medical Branch paliperidon 2020-0 Yes [id number] TAKE 1 [facility] e 3 mg 24 1-23 TABLET BY ity o f hour tablet 00:00: MOUTH ONCE DAILY Medical Branch paliperidon 2020-0 Yes [id number] TAKE 1 [facility] e 3 mg 24 1-23 TABLET BY ity o f hour tablet 00:00: MOUTH ONCE DAILY Medical Branch propranolol 2019- Yes [id number] 10mg Take 1 [facility] 10 mg 1-22 tablet by ity of tablet 00:00: mouth 2 (two) Medical times Branch daily as needed (tremor). propranolol 2018-05 Yes [id number] 10mg Take 1 [facility] 10 mg 1-22 tablet by ity of tablet 00:00: mouth 2 00 (two) Medical times Branch daily as needed (tremor). propranolol 2018-05 Yes [id number] 10mg Take 1 [facility] 10 mg 1-22 tablet by ity of tablet 00:00: mouth 2 00 (two) Medical times Branch daily as needed (tremor). propranolol 2018-05 Yes [id number] 10mg Take 1 [facility] 10 mg 1-22 tablet by ity of tablet 00:00: mouth 2 00 (two) Medical times Branch daily as needed (tremor). propranolol 2018-05 Yes [id number] 10mg Take 1 [facility] 10 mg 1-22 tablet by ity of tablet 00:00: mouth 2 (two) Medical times Branch daily as needed (tremor). propranolol 2018-05 Yes [id number] 10mg Take 1 [facility] 10 mg 1-22 tablet by ity of tablet 00:00: mouth 2 (two) Medical times Branch daily as needed (tremor). propranolol 2018-05 Yes [id number] 10mg Take 1 [facility] 10 mg 1-22 tablet by ity of tablet 00:00: mouth 2 (two) Medical times Branch daily as needed (tremor). propranolol 2018-05 Yes [id number] 10mg Take 1 [facility] 10 mg 1-22 tablet by ity of tablet 00:00: mouth 2 (two) Medical times Branch daily as needed (tremor). propranolol 2018-05 Yes [id number] 10mg Take 1 [facility] 10 mg 1-22 tablet by ity of tablet 00:00: mouth 2 00 (two) Medical times Branch daily as needed (tremor). propranolol 2018-05 Yes [id number] 10mg Take 1 [facility] 10 mg 1-22 tablet by ity of tablet 00:00: mouth 2 00 (two) Medical times Branch daily as needed (tremor). propranolol 2018-05 Yes [id number] 10mg Take 1 [facility] 10 mg 1-22 tablet by ity of tablet 00:00: mouth 2 00 (two) Medical times Branch daily as needed (tremor). propranolol 2018-05 Yes [id number] 10mg Take 1 [facility] 10 mg 1-22 tablet by ity of tablet 00:00: mouth 2 00 (two) Medical times Branch daily as needed (tremor). propranolol 2018-05 Yes [id number] 10mg Take 1 [facility] 10 mg 1-22 tablet by ity of tablet 00:00: mouth 2 00 (two) Medical times Branch daily as needed (tremor). propranolol 2018-05 Yes [id number] 10mg Take 1 [facility] 10 mg 1-22 tablet by ity of tablet 00:00: mouth 2 00 (two) Medical times Branch daily as needed (tremor). propranolol 2018-05 Yes [id number] 10mg Take 1 [facility] 10 mg 1-22 tablet by ity of tablet 00:00: mouth 2 00 (two) Medical times Branch daily as needed (tremor). propranolol 2018-05 Yes [id number] 10mg Take 1 [facility] 10 mg 1-22 tablet by ity of tablet 00:00: mouth 2 00 (two) Medical times Branch daily as needed (tremor). propranolol 2018-05 Yes [id number] 10mg Take 1 [facility] 10 mg 1-22 tablet by ity of tablet 00:00: mouth 2 (two) Medical times Branch daily as needed (tremor). propranolol 2018-05 Yes [id number] 10mg Take 1 [facility] 10 mg 1-22 tablet by ity of tablet 00:00: mouth 2 00 (two) Medical times Branch daily as needed (tremor). propranolol 2018-05 Yes [id number] 10mg Take 1 [facility] 10 mg 1-22 tablet by ity of tablet 00:00: mouth 2 00 (two) Medical times Branch daily as needed (tremor). propranolol 2018-05 Yes [id number] 10mg Take 1 [facility] 10 mg 1-22 tablet by ity of tablet 00:00: mouth 2 00 (two) Medical times Branch daily as needed (tremor). propranolol 2018-05 Yes [id number] 10mg Take 1 [facility] 10 mg 0-25 tablet by ity of tablet 00:00: mouth [place] 00 daily. Medical Branch propranolol 2018-05 Yes [id number] 10mg Take 1 [facility] 10 mg 0-25 tablet by ity of tablet 00:00: mouth [place] 00 daily. Medical Branch rivaroxaban Yes Take by Un jhonatan (XARELTO) 9 mouth. ity of 20 mg 15:21: [place] tablet 28 Medical Branch rivaroxaban Yes Take by Un jhonatan (XARELTO) 9- mouth. ity of 20 mg 15:21: [place] [...] 20 mg 15:21: [place] tablet Medical Branch divalproex Yes [id number] 500mg Take 2 [facility] ER 250 mg 9-10 tablets by ity of 24 hr 00:00: mouth at [place] tablet 00 bedtime. Medical Branch divalproex Yes [id number] 500mg Take 2 [facility] ER 250 mg 9-10 tablets by ity of 24 hr 00:00: mouth at [place] tablet 00 bedtime. Medical Branch divalproex Yes [id number] 500mg Take 2 [facility] ER 250 mg 9-10 tablets by ity of 24 hr 00:00: mouth at [place] tablet 00 bedtime. Medical Branch divalproex Yes [id number] 500mg Take 2 [facility] ER 250 mg 9-10 tablets by ity of 24 hr 00:00: mouth at [place] tablet 00 bedtime. Medical Branch divalproex Yes [id number] 500mg Take 2 [facility] ER 250 mg 9-10 tablets by ity of 24 hr 00:00: mouth at [place] tablet 00 bedtime. Medical Branch divalproex Yes [id number] 500mg Take 2 [facility] ER 250 mg 9-10 tablets by ity of 24 hr 00:00: mouth at [place] tablet 00 bedtime. Medical Branch divalproex Yes [id number] 500mg Take 2 [facility] ER 250 mg 9-10 tablets by ity of 24 hr 00:00: mouth at [place] tablet 00 bedtime. Medical Branch divalproex 2019-0 Yes [id number] 500mg Take 2 [facility] ER 250 mg 9-10 tablets by ity of 24 hr 00:00: mouth at [place] tablet 00 bedtime. [facility] Branch divalproex 2018-0 Yes [id number] 500mg Take 2 [facility] ER 250 mg 9-10 tablets by ity of 24 hr 00:00: mouth at [place] tablet 00 bedtime. [facility] Branch divalproex 2018- Yes [id number] 500mg Take 2 [facility] ER 250 mg 9-10 tablets by ity of 24 hr 00:00: mouth at [place] tablet 00 bedtime. [facility] Branch divalproex Yes [id number] 500mg Take 2 [facility] ER 250 mg 9-10 tablets by ity of 24 hr 00:00: mouth at [place] tablet 00 bedtime. [facility] Branch divalproex Yes [id number] 500mg Take 2 [facility] ER 250 mg 9-10 tablets by ity of 24 hr 00:00: mouth at [place] tablet 00 bedtime. [facility] Branch divalproex Yes [id number] 500mg Take 2 [facility] ER 250 mg 9-10 tablets by ity of 24 hr 00:00: mouth at [place] tablet 00 bedtime. [facility] Branch divalproex Yes [id number] 500mg Take 2 [facility] ER 250 mg 9-10 tablets by ity of 24 hr 00:00: mouth at [place] tablet 00 bedtime. [facility] Branch divalproex Yes [id number] 500mg Take 2 [facility] ER 250 mg 9-10 tablets by ity of 24 hr 00:00: mouth at [place] tablet 00 bedtime. [facility] Branch divalproex Yes [id number] 500mg Take 2 [facility] ER 250 mg 9-10 tablets by ity of 24 hr 00:00: mouth at [place] tablet 00 bedtime. [facility] Branch divalproex Yes [id number] 500mg Take 2 [facility] ER 250 mg 9-10 tablets by ity of 24 hr 00:00: mouth at [place] tablet 00 bedtime. [facility] Branch divalproex 0 Yes [id number] 500mg Take 2 [facility] ER 250 mg 9-10 tablets by ity of 24 hr 00:00: mouth at [place] tablet 00 bedtime. [facility] Branch divalproex 2018- Yes [id number] 500mg Take 2 [facility] ER 250 mg 9-10 tablets by ity of 24 hr 00:00: mouth at [place] tablet 00 bedtime. Medical Branch divalproex 2019-0 Yes [id number] 500mg Take 2 [facility] ER 250 mg 9-10 tablets by ity of 24 hr 00:00: mouth at [place] tablet 00 bedtime. Medical Branch divalproex 2019-0 Yes [id number] 500mg Take 2 [facility] ER 250 mg 9-10 tablets by ity of 24 hr 00:00: mouth at [place] tablet 00 bedtime. Medical Branch TOPIRAMATE 2019-0 Yes [id number] TAKE 1 [facility] 25 mg 8-28 TABLET BY ity of tablet 00:00: MOUTH TWO [place] TIMES Medical DAILY Branch TOPIRAMATE 2018-0 Yes [id number] TAKE 1 [facility] 25 mg 8-28 TABLET BY ity of tablet 00:00: MOUTH TWO [place] Medical DAILY Branch TOPIRAMATE 2018-0 Yes [id number] TAKE 1 [facility] 25 mg 8-28 TABLET BY ity of tablet 00:00: MOUTH TWO [place] Medical DAILY Branch TOPIRAMATE 2018-0 Yes [id number] TAKE 1 [facility] 25 mg 8-28 TABLET BY ity of tablet 00:00: MOUTH TWO [place] Medical DAILY Branch TOPIRAMATE 2018-0 Yes [id number] TAKE 1 [facility] 25 mg 8-28 TABLET BY ity of tablet 00:00: MOUTH TWO [place] Medical DAILY Branch TOPIRAMATE 2019-0 Yes [id number] TAKE 1 [facility] 25 mg 8-28 TABLET BY ity of tablet 00:00: MOUTH [facility] Medical DAILY Branch TOPIRAMATE 2019-0 Yes [id number] TAKE 1 [facility] 25 mg 8-28 TABLET BY ity of tablet 00:00: MOUTH TWO [place] Medical DAILY Branch TOPIRAMATE 2019-0 Yes [id number] TAKE 1 [facility] 25 mg 8-28 TABLET BY ity of tablet 00:00: MOUTH TWO [place] Medical DAILY Branch TOPIRAMATE 2019-0 Yes [id number] TAKE 1 [facility] 25 mg 8-28 TABLET BY ity of tablet 00:00: MOUTH TWO [place] Medical DAILY Branch TOPIRAMATE 2018-0 Yes [id number] TAKE 1 [facility] 25 mg 8-28 TABLET BY ity of tablet 00:00: MOUTH TWO [place] Medical DAILY Branch TOPIRAMATE 2018-0 Yes [id number] TAKE 1 [facility] 25 mg 8-28 TABLET BY ity of tablet 00:00: MOUTH TWO [place] Medical DAILY Branch TOPIRAMATE 20190 Yes [id number] TAKE 1 [facility] 25 mg 8-28 TABLET BY ity of tablet 00:00: MOUTH TWO [place] Medical DAILY Branch TOPIRAMATE Yes [id number] TAKE 1 [facility] 25 mg 8-28 TABLET BY ity of tablet 00:00: MOUTH TWO [place] Medical DAILY Branch TOPIRAMATE Yes [id number] TAKE 1 [facility] 25 mg 8-28 TABLET BY ity of tablet 00:00: MOUTH TWO [place] Medical DAILY Branch TOPIRAMATE Yes [id number] TAKE 1 [facility] 25 mg 8-28 TABLET BY ity of tablet 00:00: MOUTH TWO [place] Medical DAILY Branch TOPIRAMATE Yes [id number] TAKE 1 [facility] 25 mg 8-28 TABLET BY ity of tablet 00:00: MOUTH TWO [place] Medical DAILY Branch TOPIRAMATE Yes [id number] TAKE 1 [facility] 25 mg 8-28 TABLET BY ity of tablet 00:00: MOUTH TWO [place] Medical DAILY Branch TOPIRAMATE 2020- No [id number] TAKE 1 [facility] 25 mg 8-28 04- TABLET BY ity of tablet 00:00: 00:00 MOUTH TWO [place] 00 : Medical DAILY Branch paliperidon 0 Yes [id number] TAKE 1 [facility] e 3 mg 24 8-07 TABLET BY ity o f hour tablet 00:00: MOUTH ONCE [place] Medical Branch PALIPERIDON 20190 Yes [id number] TAKE 1 [facility] E 3 mg 24 8-07 TABLET BY ity o f hour tablet 00:00: MOUTH ONCE Medical Branch paliperidon 20190 Yes [id number] TAKE 1 [facility] e 3 mg 24 8-07 TABLET BY ity o f hour tablet 00:00: MOUTH ONCE [place] DAILY Medical Branch PALIPERIDON 2019-0 Yes [id number] TAKE 1 [facility] E 3 mg 24 8-07 TABLET BY ity o f hour tablet 00:00: MOUTH ONCE [place] DAILY Medical Branch paliperidon 2018-0 Yes [id number] TAKE 1 [facility] e 3 mg 24 8-07 TABLET BY ity o f hour tablet 00:00: MOUTH ONCE [place] DAILY Medical Branch PALIPERIDON 0 Yes [id number] TAKE 1 [facility] E 3 mg 24 8-07 TABLET BY ity o f hour tablet 00:00: MOUTH ONCE DAILY Medical Branch paliperidon 2019- Yes [id number] TAKE 1 [facility] e 3 mg 24 8-07 TABLET BY ity o f hour tablet 00:00: MOUTH ONCE DAILY Medical Branch PALIPERIDON 2019 Yes [id number] TAKE 1 [facility] E 3 mg 24 8-07 TABLET BY ity o f hour tablet 00:00: MOUTH ONCE DAILY Medical Branch paliperidon 2019 Yes [id number] TAKE 1 [facility] e 3 mg 24 8-07 TABLET BY ity o f hour tablet 00:00: MOUTH ONCE DAILY Medical Branch PALIPERIDON 2019 Yes [id number] TAKE 1 [facility] E 3 mg 24 8-07 TABLET BY ity o f hour tablet 00:00: MOUTH ONCE DAILY Medical Branch paliperidon 2019- Yes [id number] TAKE 1 [facility] e 3 mg 24 8-07 TABLET BY ity o f hour tablet 00:00: MOUTH ONCE DAILY Medical Branch PALIPERIDON 2019 Yes [id number] TAKE 1 [facility] E 3 mg 24 8-07 TABLET BY ity o f hour tablet 00:00: MOUTH ONCE DAILY Medical Branch paliperidon 2019 Yes [id number] TAKE 1 [facility] e 3 mg 24 8-07 TABLET BY ity o f hour tablet 00:00: MOUTH ONCE DAILY Medical Branch PALIPERIDON 2019- Yes [id number] TAKE 1 [facility] E 3 mg 24 8-07 TABLET BY ity o f hour tablet 00:00: MOUTH ONCE DAILY Medical Branch paliperidon 2019 Yes [id number] TAKE 1 [facility] e 3 mg 24 8-07 TABLET BY ity o f hour tablet 00:00: MOUTH ONCE DAILY Medical Branch PALIPERIDON 2019 Yes [id number] TAKE 1 [facility] E 3 mg 24 8-07 TABLET BY ity o f hour tablet 00:00: MOUTH ONCE DAILY Medical Branch paliperidon 2019- Yes [id number] TAKE 1 [facility] e 3 mg 24 8-07 TABLET BY ity o f hour tablet 00:00: MOUTH ONCE DAILY Medical Branch PALIPERIDON 2019 Yes [id number] TAKE 1 [facility] E 3 mg 24 8-07 TABLET BY ity o f hour tablet 00:00: MOUTH ONCE DAILY Medical Branch paliperidon 2019 Yes [id number] TAKE 1 [facility] e 3 mg 24 8-07 TABLET BY ity o f hour tablet 00:00: MOUTH ONCE DAILY Medical Branch PALIPERIDON Yes [id number] TAKE 1 [facility] E 3 mg 24 8-07 TABLET BY ity o f hour tablet 00:00: MOUTH ONCE DAILY Medical Branch paliperidon Yes [id number] TAKE 1 [facility] e 3 mg 24 8-07 TABLET BY ity o f hour tablet 00:00: MOUTH ONCE DAILY Medical Branch PALIPERIDON Yes [id number] TAKE 1 [facility] E 3 mg 24 8-07 TABLET BY ity o f hour tablet 00:00: MOUTH ONCE DAILY Medical Branch paliperidon Yes [id number] TAKE 1 [facility] e 3 mg 24 8-07 TABLET BY ity o f hour tablet 00:00: MOUTH ONCE DAILY Medical Branch PALIPERIDON Yes [id number] TAKE 1 [facility] E 3 mg 24 8-07 TABLET BY ity o f hour tablet 00:00: MOUTH ONCE DAILY Medical Branch paliperidon Yes [id number] TAKE 1 [facility] e 3 mg 24 8-07 TABLET BY ity o f hour tablet 00:00: MOUTH ONCE DAILY Medical Branch paliperidon Yes [id number] TAKE 1 [facility] e 3 mg 24 8-07 TABLET BY ity o f hour tablet 00:00: MOUTH ONCE DAILY Medical Branch paliperidon Yes [id number] TAKE 1 [facility] e 3 mg 24 8-07 TABLET BY ity o f hour tablet 00:00: MOUTH ONCE DAILY Medical Branch paliperidon Yes [id number] TAKE 1 [facility] e 3 mg 24 8-07 TABLET BY ity o f hour tablet 00:00: MOUTH ONCE DAILY Medical Branch PALIPERIDON Yes [id number] TAKE 1 [facility] E 3 mg 24 8-07 TABLET BY ity o f hour tablet 00:00: MOUTH ONCE DAILY Medical Branch clonazePAM Yes [id number] .5mg Take 2 [facility] 0.25 mg 7-26 105 tablets by ity of disintegrat 00:00: mouth at [place] tablet 00 bedtime. Medic al Branch clonazePAM Yes [id number] .5mg Take 2 [facility] 0.25 mg 7-26 105 tablets by ity of disintegrat 00:00: mouth at [place] tablet 00 bedtime. [facility] al Branch clonazePAM 2019-0 Yes [id number] .5mg Take 2 [facility] 0.25 mg 7-26 105 tablets by ity of disintegrat 00:00: mouth [place] [address] [facility] Branch clonazePAM 2019-0 Yes [id number] .5mg Take 2 [facility] 0.25 mg 7-26 105 tablets by ity of disintegrat 00:00: mouth [place] tablet 00 bedtime. [facility] al Branch clonazePAM 2019-0 Yes [id number] .5mg Take 2 [facility] 0.25 mg 7-26 105 tablets by ity of disintegrat 00:00: mouth [place] [address] [facility] Branch clonazePAM 2019-0 Yes [id number] .5mg Take 2 [facility] 0.25 mg 7-26 105 tablets by ity of disintegrat 00:00: mouth at [place] [address] [facility] Branch clonazePAM 2019-0 Yes [id number] .5mg Take 2 [facility] 0.25 mg 7-26 105 tablets by ity of disintegrat 00:00: mouth [place] tablet [address] [facility] Branch clonazePAM 2019-0 Yes [id number] .5mg Take 2 [facility] 0.25 mg 7-26 105 tablets by ity of disintegrat 00:00: mouth [place] [address] [facility] Branch clonazePAM 2019-0 Yes [id number] .5mg Take 2 [facility] 0.25 mg 7-26 105 tablets by ity of disintegrat 00:00: mouth [place] [address] [facility] Branch clonazePAM 2019-0 Yes [id number] .5mg Take 2 [facility] 0.25 mg 7-26 105 tablets by ity of disintegrat 00:00: mouth [place] [address] [facility] Branch clonazePAM 2019-0 Yes [id number] .5mg Take 2 [facility] 0.25 mg 7-26 105 tablets by ity of disintegrat 00:00: mouth [place] [address] [facility] Branch clonazePAM 2019-0 Yes [id number] .5mg Take 2 [facility] 0.25 mg 7-26 105 tablets by ity of disintegrat 00:00: mouth [place] [address] [facility] Branch clonazePAM 2019-0 Yes [id number] .5mg Take 2 [facility] 0.25 mg 7-26 105 tablets by ity of disintegrat 00:00: mouth [place] [address] [facility] Branch clonazePAM 2019-0 Yes [id number] .5mg Take 2 [facility] 0.25 mg 7-26 105 tablets by ity of disintegrat 00:00: mouth [place] [address] [facility] Branch clonazePAM 2019-0 Yes [id number] .5mg Take 2 [facility] 0.25 mg 7-26 105 tablets by ity of disintegrat 00:00: mouth [place] [address] [facility] Branch clonazePAM 2019-0 Yes [id number] .5mg Take 2 [facility] 0.25 mg 7-26 105 tablets by ity of disintegrat 00:00: mouth [place] tablet 00 bedtime. [facility] spironolact 2019-0 Yes Univer s one 25 mg 4-11 ity of tablet 00:00: [address] spironolact 2019-0 Yes Univer s one 25 mg 4-11 ity of tablet 00:00: [address] spironolact 2019-0 Yes Univer s one 25 mg 4-11 ity of tablet 00:00: [address] [address] spironolact 2019-0 Yes Univer s one 25 mg 4-11 ity of tablet 00:00: [address] spironolact 2019-0 Yes Univer s one 25 mg 4-11 ity of tablet 00:00: [address] spironolact 2019-0 Yes Univer s one 25 mg 4-11 ity of tablet 00:00: [address] spironolact 2019-0 Yes Univer s one 25 mg 4-11 ity of tablet 00:00: [address] spironolact 2019-0 Yes Univer s one 25 mg 4-11 ity of tablet 00:00: [address] spironolact 2019-0 Yes Univer s one 25 mg 4-11 ity of tablet 00:00: [address] spironolact 2019-0 Yes Un[facility] s one 25 mg 4-11 ity of tablet 00:00: [place] [facility] spironolact 2019-0 Yes Univer s one 25 mg 4-11 ity of tablet 00:00: [place] [facility] spironolact 2019-0 Yes Univer s one 25 mg 4-11 ity of tablet 00:00: [place] [facility] spironolact 2019-0 Yes Univer s one 25 mg 4-11 ity of tablet 00:00: [place] [facility] spironolact 2019-0 Yes Univer s one 25 mg 4-11 ity of tablet 00:00: [place] [facility] spironolact 2019-0 Yes Univer s one 25 mg 4-11 ity of tablet 00:00: [place] [address] [facility] spironolact 2019-0 Yes Univer s one 25 mg 4-11 ity of tablet 00:00: [place] [address] [facility] spironolact 2019-0 Yes Univer s one 25 mg 4-11 ity of tablet 00:00: [place] [address] [facility] spironolact 2019-0 Yes Univer s one 25 mg 4-11 ity of tablet 00:00: [place] [address] [facility] spironolact 2019-0 Yes Univer s one 25 mg 4-11 ity of tablet 00:00: [place] [address] [facility] spironolact 2019-0 Yes Univer s one 25 mg 4-11 ity of tablet 00:00: [place] [address] [facility] spironolact 2019-0 Yes Univer s one 25 mg 4-11 ity of tablet 00:00: [place] [address] [facility] spironolact 2019-0 Yes Univer s one 25 mg 4-11 ity of tablet 00:00: [place] [facility] spironolact 2019-0 Yes Univer s one 25 mg 4-11 ity of tablet 00:00: [place] [address] [facility] spironolact 2019-0 Yes Univer s one 25 mg 4-11 ity of tablet 00:00: [place] [address] [facility] spironolact 2019-0 Yes Univer s one 25 mg 4-11 ity of tablet 00:00: [place] [address] [facility] spironolact 2019-0 Yes Univer s one 25 mg 4-11 ity of tablet 00:00: [place] [address] [facility] spironolact 2019-0 Yes Univer s one 25 mg 4-11 ity of tablet 00:00: [place] [facility] spironolact 2019-0 Yes Univer s one 25 mg 4-11 ity of tablet 00:00: [place] [facility] spironolact 2019-0 Yes Univer s one 25 mg 4-11 ity of tablet 00:00: [place] [facility] spironolact 2019-0 Yes Un[facility] s one 25 mg 4-11 ity of tablet 00:00: [place] [facility] spironolact 2019-0 Yes Univer s one 25 mg 4-11 ity of tablet 00:00: [place] [facility] spironolact 2019-0 Yes Univer s one 25 mg 4-11 ity of tablet 00:00: [place] [address] [facility] spironolact 2019-0 Yes Univer s one 25 mg 4-11 ity of tablet 00:00: [place] [address] [facility] spironolact 2019-0 Yes Univer s one 25 mg 4-11 ity of tablet 00:00: [place] [address] [facility] spironolact 2019-0 Yes Un[facility] s one 25 mg 4-11 ity of tablet 00:00: [place] [facility] spironolact 2019-0 Yes Univer s one 25 mg 4-11 ity of tablet 00:00: [place] [address] [facility] spironolact 2019-0 Yes Univer s one 25 mg 4-11 ity of tablet 00:00: [place] [facility] spironolact 2019-0 Yes Univer s one 25 mg 4-11 ity of tablet 00:00: [place] [address] [facility] spironolact 2019-0 Yes Un[facility] s one 25 mg 4-11 ity of tablet 00:00: [place] [facility] spironolact 2019-0 Yes Un[facility] one 25 mg 4-11 ity of tablet 00:00: [place] [facility] spironolact 2019-0 Yes [facility] one 25 mg 4-11 ity of tablet 00:00: [place] [facility] spironolact 2019-0 Yes Univer s one 25 mg 4-11 ity of tablet 00:00: [place] [facility] spironolact 2019-0 Yes Univer s one 25 mg 4-11 ity of tablet 00:00: [place] [address] [facility] spironolact 2019-0 Yes Un[facility] one 25 mg 4-11 ity of tablet 00:00: [place] [facility] spironolact 2019-0 Yes Un[facility] one 25 mg 4-11 ity of tablet 00:00: [place] [facility] spironolact 2019-0 Yes Un[facility] one 25 mg 4-11 ity of tablet 00:00: [place] [facility] spironolact 2019-0 Yes [facility] one 25 mg 4-11 ity of tablet 00:00: [place] [facility] spironolact 2019-0 Yes Un[facility] one 25 mg 4-11 ity of tablet 00:00: [place] [facility] spironolact 2019-0 Yes Un[facility] one 25 mg 4-11 ity of tablet 00:00: [place] [address] [facility] spironolact 2019-0 Yes Univer s one 25 mg 4-11 ity of tablet 00:00: [place] [facility] spironolact 2019-0 Yes Un[facility] one 25 mg 4-11 ity of tablet 00:00: [place] [address] [facility] spironolact 2019-0 Yes Un[facility] one 25 mg 4-11 ity of tablet 00:00: [place] [facility] spironolact 2019-0 Yes Un[facility] one 25 mg 4-11 ity of tablet 00:00: [place] [address] [facility] spironolact 2019-0 Yes Un[facility] s one 25 mg 4-11 ity of tablet 00:00: [place] [facility] spironolact 2019-0 Yes Un[facility] one 25 mg 4-11 ity of tablet 00:00: [place] [facility] spironolact 2019-0 Yes Un[facility] one 25 mg 4-11 ity of tablet 00:00: [place] [facility] spironolact 2019-0 Yes Un[facility] one 25 mg 4-11 ity of tablet 00:00: [place] [facility] spironolact 2019-0 Yes Un[facility] one 25 mg 4-11 ity of tablet 00:00: [place] [facility] spironolact 2019-0 Yes Un[facility] one 25 mg 4-11 ity of tablet 00:00: [place] [facility] spironolact 2019-0 Yes Un[facility] s one 25 mg 4-11 ity of tablet 00:00: [place] [address] [facility] spironolact 2019-0 Yes Univer s one 25 mg 4-11 ity of tablet 00:00: [place] [facility] spironolact 2019-0 Yes Un[facility] one 25 mg 4-11 ity of tablet 00:00: [place] [facility] spironolact 2019-0 Yes [facility] one 25 mg 4-11 ity of tablet 00:00: [place] [facility] spironolact 2019-0 Yes [facility] one 25 mg 4-11 ity of tablet 00:00: [place] [facility] spironolact 2019-0 Yes Un[facility] one 25 mg 4-11 ity of tablet 00:00: [place] [facility] spironolact 2019-0 Yes [facility] one 25 mg 4-11 ity of tablet 00:00: [place] [facility] spironolact 2019-0 Yes Un[facility] one 25 mg 4-11 ity of tablet 00:00: [place] [address] [facility] spironolact 2019-0 Yes Univer s one 25 mg 4-11 ity of tablet 00:00: [place] [address] [facility] spironolact 2019-0 Yes Univer s one 25 mg 4-11 ity of tablet 00:00: [place] [address] [facility] spironolact 2019-0 Yes Un[facility] one 25 mg 4-11 ity of tablet 00:00: [place] [address] [facility] spironolact 2019-0 Yes Un[facility] one 25 mg 4-11 ity of tablet 00:00: [place] [address] [facility] spironolact 2019-0 Yes Un[facility] one 25 mg 4-11 ity of tablet 00:00: [place] [facility] spironolact 2019-0 Yes Un[facility] one 25 mg 4-11 ity of tablet 00:00: [place] [facility] spironolact 2019-0 Yes [facility] one 25 mg 4-11 ity of tablet 00:00: [place] [facility] spironolact 2019-0 Yes [facility] one 25 mg 4-11 ity of tablet 00:00: [place] [facility] spironolact 2019-0 Yes Un[facility] one 25 mg 4-11 ity of tablet 00:00: [place] [facility] spironolact 2019-0 Yes [facility] one 25 mg 4-11 ity of tablet 00:00: [place] [facility] spironolact 2019-0 Yes [facility] one 25 mg 4-11 ity of tablet 00:00: [place] [facility] spironolact 2019-0 Yes Un[facility] one 25 mg 4-11 ity of tablet 00:00: [place] [facility] spironolact 2019-0 Yes Univer s one 25 mg 4-11 ity of tablet 00:00: [place] [facility] tamsulosin 2019-0 Yes Univers 0.4 mg 24 4-09 ity of hr capsule 00:00: [place] [facility] tamsulosin 2019-0 Yes Univers 0.4 mg 24 4-09 ity of hr capsule 00:00: [place] [facility] tamsulosin 2019-0 Yes Univers 0.4 mg 24 4-09 ity of hr capsule 00:00: [place] [facility] tamsulosin 2019-0 Yes Univers 0.4 mg 24 4-09 ity of hr capsule 00:00: [place] [facility] tamsulosin 2019-0 Yes Univers 0.4 mg 24 4-09 ity of hr capsule 00:00: [place] [facility] tamsulosin 2019-0 Yes Univers 0.4 mg 24 4-09 ity of hr capsule 00:00: [place] [facility] tamsulosin 2019-0 Yes Univers 0.4 mg 24 4-09 ity of hr capsule 00:00: [place] [facility] tamsulosin 2019-0 Yes Univers 0.4 mg 24 4-09 ity of hr capsule 00:00: [place] [facility] tamsulosin 2019-0 Yes Univers 0.4 mg 24 4-09 ity of hr capsule 00:00: [place] [facility] tamsulosin 2019-0 Yes Univers 0.4 mg 24 4-09 ity of hr capsule 00:00: [place] [facility] tamsulosin 2019-0 Yes Univers 0.4 mg 24 4-09 ity of hr capsule 00:00: [place] [facility] tamsulosin 2019-0 Yes Univers 0.4 mg 24 4-09 ity of hr capsule 00:00: [place] [facility] tamsulosin 2019-0 Yes Univers 0.4 mg 24 4-09 ity of hr capsule 00:00: [place] [facility] tamsulosin 2019-0 Yes Univers 0.4 mg 24 4-09 ity of hr capsule 00:00: [place] [facility] tamsulosin 2019-0 Yes Univers 0.4 mg 24 4-09 ity of hr capsule 00:00: [place] [address] [facility] tamsulosin 2019-0 Yes Univers 0.4 mg 24 4-09 ity of hr capsule 00:00: [place] [address] [facility] tamsulosin 2019-0 Yes Univers 0.4 mg 24 4-09 ity of hr capsule 00:00: [place] [facility] tamsulosin 2019-0 Yes Univers 0.4 mg 24 4-09 ity of hr capsule 00:00: [place] [facility] tamsulosin 2019-0 Yes Univers 0.4 mg 24 4-09 ity of hr capsule 00:00: [place] [facility] tamsulosin 2019-0 Yes Univers 0.4 mg 24 4-09 ity of hr capsule 00:00: [place] [facility] tamsulosin 2019-0 Yes Univers 0.4 mg 24 4-09 ity of hr capsule 00:00: [place] [facility] tamsulosin 2019-0 Yes Univers 0.4 mg 24 4-09 ity of hr capsule 00:00: [place] [facility] tamsulosin 2019-0 Yes Univers 0.4 mg 24 4-09 ity of hr capsule 00:00: [place] [facility] tamsulosin 2019-0 Yes Univers 0.4 mg 24 4-09 ity of hr capsule 00:00: [place] [facility] tamsulosin 2019-0 Yes Univers 0.4 mg 24 4-09 ity of hr capsule 00:00: [place] [facility] tamsulosin 2019-0 Yes Univers 0.4 mg 24 4-09 ity of hr capsule 00:00: [place] [facility] tamsulosin 2019-0 Yes Univers 0.4 mg 24 4-09 ity of hr capsule 00:00: [place] [facility] tamsulosin 2019-0 Yes Univers 0.4 mg 24 4-09 ity of hr capsule 00:00: [place] [facility] tamsulosin 2019-0 Yes Univers 0.4 mg 24 4-09 ity of hr capsule 00:00: [place] [facility] tamsulosin 2019-0 Yes Univers 0.4 mg 24 4-09 ity of hr capsule 00:00: [place] [facility] tamsulosin 2019-0 Yes Univers 0.4 mg 24 4-09 ity of hr capsule 00:00: [place] [facility] tamsulosin 2019-0 Yes Univers 0.4 mg 24 4-09 ity of hr capsule 00:00: [place] [address] [facility] tamsulosin 2019-0 Yes Univers 0.4 mg 24 4-09 ity of hr capsule 00:00: [place] [facility] tamsulosin 2019-0 Yes Univers 0.4 mg 24 4-09 ity of hr capsule 00:00: [place] [facility] tamsulosin 2019-0 Yes Univers 0.4 mg 24 4-09 ity of hr capsule 00:00: [place] [facility] tamsulosin 2019-0 Yes Univers 0.4 mg 24 4-09 ity of hr capsule 00:00: [place] [facility] tamsulosin 2019-0 Yes Univers 0.4 mg 24 4-09 ity of hr capsule 00:00: [place] [facility] tamsulosin 2019-0 Yes Univers 0.4 mg 24 4-09 ity of hr capsule 00:00: [place] [facility] tamsulosin 2019-0 Yes Univers 0.4 mg 24 4-09 ity of hr capsule 00:00: [place] [facility] tamsulosin 2019-0 Yes Univers 0.4 mg 24 4-09 ity of hr capsule 00:00: [place] [address] [facility] tamsulosin 2019-0 Yes Univers 0.4 mg 24 4-09 ity of hr capsule 00:00: [place] [facility] tamsulosin 2019-0 Yes Univers 0.4 mg 24 4-09 ity of hr capsule 00:00: [place] [facility] tamsulosin 2019-0 Yes Univers 0.4 mg 24 4-09 ity of hr capsule 00:00: [place] [facility] tamsulosin 2019-0 Yes Univers 0.4 mg 24 4-09 ity of hr capsule 00:00: [place] [facility] tamsulosin 2019-0 Yes Univers 0.4 mg 24 4-09 ity of hr capsule 00:00: [place] [facility] tamsulosin 2019-0 Yes Univers 0.4 mg 24 4-09 ity of hr capsule 00:00: [place] [facility] tamsulosin 2019-0 Yes Univers 0.4 mg 24 4-09 ity of hr capsule 00:00: [place] [facility] tamsulosin 2019-0 Yes Univers 0.4 mg 24 4-09 ity of hr capsule 00:00: [place] [address] [facility] tamsulosin 2019-0 Yes Univers 0.4 mg 24 4-09 ity of hr capsule 00:00: [place] [address] [facility] tamsulosin 2019-0 Yes Univers 0.4 mg 24 4-09 ity of hr capsule 00:00: [place] [address] [facility] tamsulosin 2019-0 Yes Univers 0.4 mg 24 4-09 ity of hr capsule 00:00: [place] [facility] tamsulosin 2019-0 Yes Univers 0.4 mg 24 4-09 ity of hr capsule 00:00: [place] [facility] tamsulosin 2019-0 Yes Univers 0.4 mg 24 4-09 ity of hr capsule 00:00: [place] [facility] tamsulosin 2019-0 Yes Univers 0.4 mg 24 4-09 ity of hr capsule 00:00: [place] [facility] tamsulosin 2019-0 Yes Univers 0.4 mg 24 4-09 ity of hr capsule 00:00: [place] [facility] tamsulosin 2019-0 Yes Univers 0.4 mg 24 4-09 ity of hr capsule 00:00: [place] [facility] tamsulosin 2019-0 Yes Univers 0.4 mg 24 4-09 ity of hr capsule 00:00: [place] [facility] tamsulosin 2019-0 Yes Univers 0.4 mg 24 4-09 ity of hr capsule 00:00: [place] [facility] tamsulosin 2019-0 Yes Univers 0.4 mg 24 4-09 ity of hr capsule 00:00: [place] [facility] tamsulosin 2019-0 Yes Univers 0.4 mg 24 4-09 ity of hr capsule 00:00: [place] [facility] tamsulosin 2019-0 Yes Univers 0.4 mg 24 4-09 ity of hr capsule 00:00: [place] [facility] tamsulosin 2019-0 Yes Univers 0.4 mg 24 4-09 ity of hr capsule 00:00: [place] [facility] tamsulosin 2019-0 Yes Univers 0.4 mg 24 4-09 ity of hr capsule 00:00: [place] [facility] tamsulosin 2019-0 Yes Univers 0.4 mg 24 4-09 ity of hr capsule 00:00: [place] [facility] tamsulosin 2019-0 Yes Univers 0.4 mg 24 4-09 ity of hr capsule 00:00: [place] [facility] tamsulosin 2019-0 Yes Univers 0.4 mg 24 4-09 ity of hr capsule 00:00: [place] [facility] tamsulosin 2019-0 Yes Univers 0.4 mg 24 4-09 ity of hr capsule 00:00: [place] [facility] tamsulosin 2019-0 Yes Univers 0.4 mg 24 4-09 ity of hr capsule 00:00: [place] [facility] tamsulosin 2019-0 Yes Univers 0.4 mg 24 4-09 ity of hr capsule 00:00: [place] [facility] tamsulosin 2019-0 Yes Univers 0.4 mg 24 4-09 ity of hr capsule 00:00: [place] [facility] tamsulosin 2019-0 Yes Univers 0.4 mg 24 4-09 ity of hr capsule 00:00: [place] [facility] tamsulosin 2019-0 Yes Univers 0.4 mg 24 4-09 ity of hr capsule 00:00: [place] [facility] tamsulosin 2019-0 Yes Univers 0.4 mg 24 4-09 ity of hr capsule 00:00: [place] [facility] tamsulosin 2019-0 Yes Univers 0.4 mg 24 4-09 ity of hr capsule 00:00: [place] [facility] tamsulosin 2019-0 Yes Univers 0.4 mg 24 4-09 ity of hr capsule 00:00: [place] [facility] tamsulosin 2019-0 Yes Univers 0.4 mg 24 4-09 ity of hr capsule 00:00: [place] [facility] tamsulosin 2019-0 Yes Univers 0.4 mg 24 4-09 ity of hr capsule 00:00: [place] [facility] tamsulosin 2019-0 Yes Univers 0.4 mg 24 4-09 ity of hr capsule 00:00: [place] [facility] tamsulosin 2019-0 Yes Univers 0.4 mg 24 4-09 ity of hr capsule 00:00: [place] [facility] tamsulosin 2019-0 Yes Univers 0.4 mg 24 4-09 ity of hr capsule 00:00: [place] [facility] TOPIRAMATE 2019-0 Yes [id number] TAKE 1 Univers 25 mg 3-01 TABLET BY ity of tablet 00:00: MOUTH TWO [place] [facility] TOPIRAMATE 2019-0 Yes [id number] TAKE 1 [facility] 25 mg 3-01 TABLET BY ity of tablet 00:00: MOUTH TWO [place] [facility] TOPIRAMATE 2019-0 Yes [id number] TAKE 1 [facility] 25 mg 3-01 TABLET BY ity of tablet 00:00: MOUTH TWO [place] [facility] TOPIRAMATE 2019-0 Yes [id number] TAKE 1 Univers 25 mg 3-01 TABLET BY ity of tablet 00:00: MOUTH TWO [place] 00 TIMES Medical DAILY Branch TOPIRAMATE Yes [id number] TAKE 1 Univers 25 mg 3-01 TABLET BY ity of tablet 00:00: MOUTH TWO [place] TIMES Medical DAILY Branch TOPIRAMATE Yes [id number] TAKE 1 Univers 25 mg 3-01 TABLET BY ity of tablet 00:00: MOUTH TWO [place] TIMES Medical DAILY Branch TOPIRAMATE Yes [id number] TAKE 1 [facility] 25 mg 3-01 TABLET BY ity of tablet 00:00: MOUTH TWO [place] TIMES Medical DAILY Branch TOPIRAMATE Yes [id number] TAKE 1 [facility] 25 mg 3-01 TABLET BY ity of tablet 00:00: MOUTH TWO [place] TIMES Medical DAILY Branch TOPIRAMATE 2019- No [id number] TAKE 1 [facility] 25 mg 3-01 08-28 TABLET BY ity of tablet 00:00: 00:00 MOUTH TWO [place] 00 :00 TIMES Medical DAILY Branch testosteron [...] pump 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 Apply 4 Uni vers e [...] Immunizations Ordered Filled Immunization Date Status Comments [facility] e Immunization Name Name SARS-COV-2 COVID-19 2021-03-31 Completed Unive rsity of MODERNA BOOSTER 00:00:00 [facility] ical VACCINE Branch SARS-COV-2 COVID-19 2020-06-25 Completed Unive rsity of MODERNA VACCINE 00:00:00 [facility] ical Branch SARS-COV-2 COVID-19 2020-06-25 Completed Unive rsity of MODERNA VACCINE 00:00:00 [facility] ical Branch SARS-COV-2 COVID-19 2020-06-25 Completed Unive rsity of MODERNA VACCINE 00:00:00 [facility] ical Branch SARS-COV-2 COVID-19 2020-06-25 Completed Unive rsity of MODERNA VACCINE 00:00:00 [facility] ical Branch SARS-COV-2 COVID-19 2020-06-25 Completed Unive rsity of MODERNA VACCINE 00:00:00 [place] [facility] ical Branch SARS-COV-2 COVID-19 2020-06-25 Completed Unive rsity of MODERNA VACCINE 00:00:00 [facility] ical Branch SARS-COV-2 COVID-19 2020-06-25 Completed Unive rsity of MODERNA VACCINE 00:00:00 [facility] ical Branch SARS-COV-2 COVID-19 2020-06-25 Completed Unive rsity of MODERNA VACCINE 00:00:00 [facility] SARS-COV-2 COVID-19 2020-06-25 Completed Unive rsity [...] Completed Unive rsity of MODERNA VACCINE 00:00:00 [facility] ical Branch SARS-COV-2 COVID-19 2020-05-28 Completed Unive rsity of MODERNA VACCINE 00:00:00 [facility] ical Branch SARS-COV-2 COVID-19 2020-05-28 Completed Unive rsity of MODERNA VACCINE 00:00:00 [facility] SARS-COV-2 COVID-19 2020-05-28 Completed Unive rsity of MODERNA VACCINE 00:00:00 [facility] SARS-COV-2 COVID-19 2020-05-28 Completed Unive rsity of MODERNA VACCINE 00:00:00 [facility] [place] [facility] Branch SARS-COV-2 COVID-19 2020-05-28 Completed Unive rsity of MODERNA VACCINE 00:00:00 [facility] [place] [facility] Branch SARS-COV-2 COVID-19 2020-05-28 Completed Unive rsity of MODERNA VACCINE 00:00:00 [facility] Vital Signs Vital Name Observation Time Observation Value Comments Source Systolic blood 2020-07-19 21:14:00 98 mm[Hg] Univer sity of pressure [facility] Diastolic blood 2020-07-19 21:14:00 65 mm[Hg] Unive rsity of pressure [facility] Heart rate 2020-07-19 21:14:00 75 /min [facility] Oxygen saturation in 2020-07-19 21:14:00 96 /min [facility] Arterial blood by [facility] Pulse oximetry Branch Systolic blood 2020-01-19 20:45:00 119 mm[Hg] Univer sity of pressure [facility] Diastolic blood 2020-01-19 20:45:00 84 mm[Hg] Unive rsity of pressure [facility] Heart rate 2020-01-19 20:45:00 82 /min [facility] Body temperature 2020-01-19 20:45:00 37.22 [facility] height 2020-01-19 20:45:00 182.9 cm [facility] Body weight 2020-01-19 20:45:00 88.905 kg [facility] BMI 2020-01-19 20:45:00 26.58 kg/m2 [facility] [place] [facility] Oxygen saturation in 2020-01-19 20:45:00 96 /min [facility] of Arterial blood by [facility] Pulse oximetry Branch Systolic blood 2018-12-26 22:04:00 139 mm[Hg] Univer sity of pressure [place] [facility] Diastolic blood 2018-12-26 22:04:00 83 mm[Hg] Unive rsity of pressure [place] [facility] Heart rate 2018-12-26 22:04:00 62 /min [facility] [place] [facility] Body temperature 2018-12-26 22:04:00 36.39 [place] [facility] [place] [facility] Respiratory rate 2018-12-26 22:04:00 17 /min [facility] [place] [facility] Body weight 2018-12-26 22:04:00 87.998 kg [facility] [place] [facility] BMI 2018-12-26 22:04:00 26.31 kg/m2 [facility] [place] [facility] Systolic blood 2020 15:37:00 115 mm[Hg] Univer sity of pressure [place] [facility] Diastolic blood 2020 15:37:00 78 mm[Hg] Unive rsity of pressure [place] [facility] Heart rate 2020 15:37:00 105 /min [facility] [place] [facility] Respiratory rate 2020 15:37:00 14 /min [facility] [place] [facility] Body height 2020 15:37:00 182.9 cm [facility] [place] [facility] Body weight 2020 15:37:00 89.54 kg [facility] [place] [facility] BMI 2020 15:37:00 26.77 kg/m2 [facility] [place] [facility] Systolic blood 2020-07-19 21:14:00 98 mm[Hg] Univer sity of pressure [place] [facility] Diastolic blood 2020-07-19 21:14:00 65 mm[Hg] Unive rsity of pressure [place] [facility] Heart rate 2020-07-19 21:14:00 75 /min [facility] [place] [facility] Oxygen saturation in 2020-07-19 21:14:00 96 /min [facility] of Arterial blood by [facility] Pulse oximetry Branch Systolic blood 2020-02-02 15:06:00 114 mm[Hg] Univer sity of pressure [place] [facility] Diastolic blood 2020-02-02 15:06:00 78 mm[Hg] Unive rsity of pressure [facility] Heart rate 2020-02-02 15:06:00 103 /min Universi ty of [facility] Respiratory rate 2020-02-02 15:06:00 19 /min Univ ersity of [facility] Body weight 2020-02-02 15:06:00 88.406 kg [facility]i [facility] of [facility] BMI 2020-02-02 15:06:00 26.43 kg/m2 [facility] of [facility] Systolic blood 2020-01-19 20:45:00 119 mm[Hg] Univer sity of pressure [facility] Diastolic blood 2020-01-19 20:45:00 84 mm[Hg] Unive rsity of pressure [facility] Heart rate 2020-01-19 20:45:00 82 /min [facility] [place] [facility] Body temperature 2020-01-19 20:45:00 37.22 [place] [facility] ersity of [facility] Body height 2020-01-19 20:45:00 182.9 cm [facility] [place] [facility] [place] Body weight 2020-01-19 20:45:00 88.905 kg [facility] [place] [facility] BMI 2020-01-19 20:45:00 26.58 kg/m2 [facility]i [facility] of [facility] Oxygen saturation in 2020-01-19 20:45:00 96 /min University of Arterial blood by [facility] Pulse oximetry Branch Systolic blood 2019-12-29 15:03:00 126 mm[Hg] Univer sity of pressure [facility] Diastolic blood 2019-12-29 15:03:00 79 mm[Hg] Unive rsity of pressure [facility] Heart rate 2019-12-29 15:03:00 84 /min Universi ty of [facility] Respiratory rate 2019-12-29 15:03:00 17 /min Univ ersity of [facility] Body weight 2019-12-29 15:03:00 87.635 kg Universi ty of [facility] BMI 2019-12-29 15:03:00 26.20 kg/m2 Universi ty of [facility] Systolic blood 2019-11-24 15:01:00 131 mm[Hg] Univer sity of pressure [place] [facility] Diastolic blood 2019-11-24 15:01:00 83 mm[Hg] Unive rsity of pressure [place] [facility] Heart rate 2019-11-24 15:01:00 61 /min [facility] [place] [facility] Respiratory rate 2019-11-24 15:01:00 18 /min [facility] [place] [facility] Body weight 2019-11-24 15:01:00 92.08 kg [facility] [place] [facility] BMI 2019-11-24 15:01:00 27.53 kg/m2 [facility] [place] [facility] Systolic blood 2019-06-08 16:12:00 122 mm[Hg] Univer sity of pressure [place] [facility] Diastolic blood 2019-06-08 16:12:00 81 mm[Hg] Unive rsity of pressure [place] [facility] Heart rate 2019-06-08 16:12:00 57 /min [facility] [place] [facility] Respiratory rate 2019-06-08 16:12:00 17 /min [facility] [place] [facility] Body weight 2019-06-08 16:12:00 89.359 kg [facility] BMI 2019-06-08 16:12:00 26.72 kg/m2 [facility] [place] [facility] Systolic blood 2019-04-07 16:01:00 116 mm[Hg] [facility] [place] [facility] Diastolic blood 2019-04-07 16:01:00 74 mm[Hg] [facility] [place] [facility] Heart rate 2019-04-07 16:01:00 67 /min [facility] [place] [facility] Respiratory rate 2019-04-07 16:01:00 18 /min [facility] [place] [facility] Body height 2019-04-07 16:01:00 182.9 cm [facility] [place] [facility] Body weight 2019-04-07 16:01:00 89.359 kg [facility] [place] [facility] BMI 2019-04-07 16:01:00 26.72 kg/m2 [facility] [place] [facility] Systolic blood 2019-03-10 15:50:00 127 mm[Hg] [facility] [place] [facility] Diastolic blood 2019-03-10 15:50:00 84 mm[Hg] [facility] [place] [facility] Heart rate 2019-03-10 15:50:00 89 /min [facility] [place] [facility] Respiratory rate 2019-03-10 15:50:00 18 /min [facility] [place] [facility] Body height 2019-03-10 15:50:00 182.9 cm [facility] [place] [facility] Body weight 2019-03-10 15:50:00 88.814 kg [facility] [place] [facility] BMI 2019-03-10 15:50:00 26.56 kg/m2 [facility] [place] [facility] Systolic blood 2019-02-10 15:16:00 127 mm[Hg] [facility] [place] [facility] Diastolic blood 2019-02-10 15:16:00 79 mm[Hg] [facility] [place] [facility] Heart rate 2019-02-10 15:16:00 100 /min [facility] [place] [facility] Respiratory rate 2019-02-10 15:16:00 20 /min [facility] [place] [facility] Body height 2019-02-10 15:16:00 182.9 cm [facility] [place] [facility] Body weight 2019-02-10 15:16:00 90.719 kg [facility] [place] [facility] BMI 2019-02-10 15:16:00 27.12 kg/m2 [facility] [place] [facility] Systolic blood 2019-01-06 15:07:00 114 mm[Hg] [facility] [place] [facility] Diastolic blood 2019-01-06 15:07:00 79 mm[Hg] [facility] [place] [facility] Heart rate 2019-01-06 15:07:00 89 /min [facility] [place] [facility] Respiratory rate 2019-01-06 15:07:00 17 /min [facility] [place] [facility] Body weight 2019-01-06 15:07:00 87.544 kg [facility] [place] [facility] BMI 2019-01-06 15:07:00 26.18 kg/m2 [facility] [place] [facility] Body temperature 2018-12-26 22:04:00 36.39 Pretty [facility] [place] [facility] Systolic blood 2018-12-09 15:09:00 118 mm[Hg] [facility] [place] [facility] Diastolic blood 2018-12-09 15:09:00 80 mm[Hg] [facility] [place] [facility] Heart rate 2018-12-09 15:09:00 58 /min [facility] [place] [facility] Respiratory rate 2018-12-09 15:09:00 17 /min [facility] [place] [facility] Body weight 2018-12-09 15:09:00 87.998 kg [facility] BMI 2018-12-09 15:09:00 26.31 kg/m2 [facility] Body height 2018-09-22 18:03:00 182.9 cm [facility] Body temperature 2018 22:30:00 36.22 Pretty [facility] Procedures Procedure Date / Time Performing Clinician Source Performed SARS-COV-2 COVID-19 2021-03-31 22:17:29 Doctor Unassigned, [facility] [place] [place] VACCINE BOOSTER,0.25ML,IM [facility] (MODERNA) VALPROIC ACID, TOTAL 2020-07-19 21:54:00 Mamadou Gil [facility] SARS-COV-2 COVID-19 2020-06-25 20:02:30 Doctor Unassigned, [facility] [place] VACCINE,0.5ML,IM (MODERNA) [facility] SARS-COV-2 COVID-19 2020-05-28 20:50:30 Genie [facility] [place] VACCINE,0.5ML,IM (MODERNA) Medic ca Branch VALPROIC ACID, TOTAL 2020-02-07 15:21:00 Hugo Dyer [facility] CBC WITH DIFF 2020-02-07 15:21:00 Gomez [facility] GLYCOSYLATED HEMOGLOBIN 2020-02-07 15:21:00 Hugo Dyer [facility] (A1C) [facility] THYROID STIMULATING 2020-02-07 15:21:00 Gomez Hugo [facility] COMP. METABOLIC PANEL 2020-02-07 15:21:[address] [facility] ([id number]) [facility] LIPID PANEL (79092)(TOTAL 2020-02-07 15:21:00 Gomez [facility] CHOLESTEROL, [facility] TRIGLYCERIDES, HDL) CBC WITH DIFF 2020-02-07 15:21:00 Gomez [facility] COMP. METABOLIC PANEL 2020-02-07 15:21:[address] [facility] (31275) Medical Branch GLYCOSYLATED HEMOGLOBIN 2020-02-07 15:21:00 Hugo Dyer [facility] (A1C) Medical Branch LIPID PANEL (08900)(TOTAL 2020-02-07 15:21:00 Hugo Dyer [facility] CHOLESTEROL, Medical Branch TRIGLYCERIDES, HDL) VALPROIC ACID, TOTAL 2020-02-07 15:21:00 Hugo Dyer [facility] [place] THYROID STIMULATING 2020-02-07 15:21:00 Hugo Dyer [facility] HORMONE Medical Branch NOTICE OF PRIVACY 2020-02-07 14:56:54 Doctor Roger, [facility] PRACTICES [facility] CONSENT/REFUSAL FOR 2020-02-07 14:56:36 Doctor Roger [facility] DIAGNOSIS AND TREATMENT [facility] CONSENT/REFUSAL FOR 2020-02-07 14:56:36 Doctor Roger, [facility] DIAGNOSIS AND TREATMENT [facility] ASSIGNMENT OF BENEFITS 2020-02-07 14:56:19 [facility] ASSIGNMENT OF BENEFITS 2020-02-07 14:56:19 Doctor Stephiekwame [facility] LIPID PANEL (27227)(TOTAL 2019-02-20 15:50:00 Thong [facility]STEROL, [facility] TRIGLYCERIDES, HDL) GLYCOSYLATED HEMOGLOBIN 2019-02-20 15:50:00 Thong [facility] (A1C) Pilar Mancini [facility] NOTICE OF BILLING 2019-02-10 15:07:07 Doctor Duran [facility] PRACTICES FOR MEDICARE [facility] [place] [facility] PATIENTS [facility] PATIENT FINANCIAL 2019-02-10 15:06:44 Doctor Duran [facility] POLICY [facility] NO SHOW OR MISSED 2019-02-10 15:06:16 Doctor Duran [facility] APPOINTMENT POLICY [place] [facility] h ACKNOWLEDGEMENT EXTERNAL PROVIDER RECORDS 2018-11-21 05:01:00 Doctor Duran [facility] Encounters Start End Encounter Admission Attending Care Care Encounter Source Date/Time Date/Time Type Type Clinicians Facility Department ID 2021-06-12 Outpatient 3 KAMLESH, ENC[facility] OZZY [id number] [facility] 13:09:35 SIVAKUMAR 1025 2021-06-12 Outpatient 3 [id number] [facility] REF [id number] [facility] 13:07:10 1019 2021-06-12 Outpatient 3 Baron ENC[facility] OZZY [id number] [facility] 12:40:27 Danielle 0810 2021-06-12 Outpatient 3 [id number] [facility] REF [id number] [facility] 12:40:00 0809 2021-06-12 Outpatient 3 [id number] E[facility] REF [id number] [facility] 12:39:14 0806 2021-06-12 Outpatient 3 [id number] ENC[facility] OT [facility] 11:32:46 0212021-06-12 Outpatient 3 [id number] ENC[facility] REF E[facility] 11:32:25 0212021-06-11 Outpatient Donita [facility]LMLC [facility] [id number] [facility] 13:11:[facility] Mike [id number] 2021-06-18 2021-06-18 ambulatory [facility] [id number] [facility] 2021-05-21 2021-05-21 ambulatory [facility]MLC [facility] [id number] [facility] 2021-04-23 2021-04-23 ambulatory [facility]ML[facility] [id number] [facility] 2021-03-31 2021-03-31 Outpatient Mychal CAMPO [facility] [id number] Univers 16:00:00 15:47:[address] [facility] 2021-03-31 2021-03-31 Imm/Inj Nurse, Adc Pob Immunization [facility] 1.2.840.114 [id number] Univers 15:47:30 15:47:40 Visit Emiliano Campo 350.1.13 .10 [facility] 4.2.7.2.686 Caden MYLES [id number] [address] 2021-01-17 2021-01-17 Outpatient R MAMADOU GIL [facility] [id number] Univers 15:40:00 15:40:[id number] [facility] 2021-01-09 2021-01-09 Outpatient [facility]MLC [facility] [id number] [facility] 2020-11-08 2020-11-08 Outpatient R [facility] [id number] Univers 10:45:00 10:45:00 [id number] ity of [facility] 2020-11-08 2020-11-08 Outpatient R MAMI GODOY [facility] [id number] Univers 10:45:00 10:45:00 ity of [facility] 2020-10-21 2020-10-21 Outpatient STLMLC [facility] [id number] [facility] 2020 2020 Outpatient R [facility] [id number] Univers 10:45:00 10:45:00 [id number] ity of [facility] 2020 2020 Outpatient R MAMI GODOY [facility] [id number] Univers 10:45:00 10:45:00 ity of [facility] 2020 2020 Travel 1.2.840.1 1.2.466.164 [id number] Univers 00:00:00 00:00:00 37590.1.1 350.1.13.10 ity of 3.104.2.[place] 084.8 [place] .[place] 2020-09-12 2020-09-12 Outpatient R [facility] [id number] Univers 10:45:00 10:45:00 [id number] ity of [facility] 2020-09-12 2020-09-12 Outpatient R MAMI GODOY [facility] [id number] Univers 10:45:00 10:45:00 ity of [facility] 2020-09-06 2020-09-06 Outpatient R [facility] [id number] Univers 10:00:00 10:00:[id number] [facility] 2020-09-05 2020-09-05 Outpatient R [facility] [id number] Univers 10:00:00 10:00:[id number] [facility] 2020-08-30 2020-08-30 Outpatient R [facility] [id number] Univers 10:00:00 10:00:[id number] [facility] 2020-07-26 2020-07-26 Telephone Louise, 1.2.840.2 [id number] Univers 00:00:00 00:00:00 Mamadou Johns 99595.1.1 ity of 3.104.2.7 [place] .3.024239 Medica [facility] .8 [place] 2020-07-19 2020-07-19 Office Mayur Gil.2.840.5 [id number] Univers 14:59:36 16:04:15 Visit Mamadou Johns 64341.1.1 ity of 3.104.2.7 [place] .3.727249 Medica [facility] .8 [place] 2020-07-19 2020-07-19 Flight Test Supervisor Mamadou Gil Gene 1.2.840.8 [id number] Univers 15:47:23 16:02:23 Visit 2, [facility] 11455.1.1 i ty of 3.104.2.7 [place] .3.736061 Medica [facility] .8 [place] 2020-07-19 2020-07-19 Outpatient MAMADOU RIZVI [facility] [id number] Univers 15:00:00 15:00:[id number] [facility] 2020-07-19 2020-07-19 Outpatient MAMADOU RIZVI [facility] [id number] Univers 15:00:00 15:00:[address] [facility] 2020-07-19 2020-07-19 Travel 1.2.840.1 1.2.921.970 [id number] Univers 00:00:00 00:00:00 37325.1.1 350.1.13.10 ity [place] 3.104.2.[place] 084.8 [place] .8 [place] 2020-07-18 2020-07-18 Outpatient R [facility] [id number] Univers 10:00:00 10:00:[id number] [facility] 2020-07-18 2020-07-18 Outpatient R MAMI GODOY [facility] [id number] Univers 10:00:00 10:00:00 ity of [facility] 2020-07-12 2020-07-12 Outpatient R [facility] [id number] Univers 10:00:00 10:00:00 [id number] [facility] 2020-06-25 2020-06-25 [facility] [id number] Univers 14:10:00 14:10:00 IVÁN [id number] [facility] 2020-06-25 2020-06-25 [facility] [id number] Univers 14:10:00 14:10:00 [facility] 2020-06-25 2020-06-25 Imm/Inj Iván Alegria 1.2.840.1 [id number] Univers 14:00:29 14:01:18 Visit Nurse, Adc Pob Immunization 40041.1.1 ity [place] 3.104.2.7 [place] .3.840968 Medica l .8 [place] 2020-06-07 2020-06-07 Outpatient R [facility] [id number] Univers 10:00:00 10:00:[id number] [facility] 2020-06-07 2020-06-07 Outpatient R MAMI GODOY [facility] [id number] Univers 10:00:00 10:00:[address] [facility] 2020-05-28 2020-05-28 Outpatient R KORY [facility] [id number] Univers 15:00:00 15:00:[address] [facility] 2020-05-28 2020-05-28 Imm/Inj Iván Alegria 1.2.840.1 [id number] Univers 14:46:27 14:49:49 Visit Nurse, Alana Pob Immunization 70458.1.1 ity [place] 3.104.2.7 [place] .3.217649 Medica l .8 [place] 2020-05-28 2020-05-28 Outpatient R KORY [facility] [id number] Univers 09:10:00 09:10:00 IVÁN [id number] ity [facility] 2020-05-11 2020-05-11 Outpatient R [facility] [id number] Univers 17:40:00 17:40:[id number] [facility] 2020-05-11 2020-05-11 Outpatient R UNKNOWN, [facility] [id number] Univers 17:40:00 17:40:[address] [facility] 2020-05-11 2020-05-11 Telemedici Shilpi Pop 1.2.840.5 [id number] Univers 15:55:08 16:15:08 ne Visit Unknown, Attending 76606.1.1 ity of Care, Provider 25 - Adult & Pedi Urgent 3.104.2.7 [place] .3.588901 Medica l .8 [place] 2020-04-26 2020-04-26 Outpatient R [facility] [id number] Univers 10:00:00 10:00:[id number] [facility] 2020-04-26 2020-04-26 Outpatient R MAMI GODOY [facility] [id number] Univers 10:00:00 10:00:[address] [facility] 2020-03-15 2020-03-15 Outpatient R [facility] [id number] Univers 10:00:00 10:00:[address] [facility] 2020-03-15 2020-03-15 Outpatient R MAMI GODOY [facility] [id number] Univers 10:00:00 10:00:[address] [facility] 2020-02-16 2020-02-16 Outpatient R [facility] [id number] Univers 14:15:00 14:15:00 ity of [facility] 2020-02-16 2020-02-16 Outpatient R KOHLI, [facility] [id number] Univers 14:15:00 14:15:00 RADHA ity of [facility] 2020-02-09 2020-02-09 Outpatient R [facility] [id number] Univers 10:00:00 10:00:00 [id number] ity of [facility] 2020-02-08 2020-02-08 Outpatient R [facility] [id number] Univers 10:00:00 10:00:00 [id number] ity of [facility] 2020-02-07 2020-02-07 Outpatient R [facility] [id number] Univers 10:30:00 10:30:00 [id number] ity of [facility] 2020-02-07 2020-02-07 Outpatient R JYOTI, [facility] [id number] Univers 10:30:00 10:30:00 ADRIAN [facility] 2020-02-07 2020-02-07 Flight Test Supervisor Adrian Araujo 1.2.840.8 [id number] Univers 09:57:45 10:12:45 Visit Pob, Adc Lab Main 67920.1.1 ity of 3.104.2.7 [place] .3.802274 Medica l .8 [place] 2020-02-07 2020-02-07 Orders Doctor 1.2.840.8 [id number] Univers 00:00:00 00:00:00 Only Unassigned, 65008.1.1 ity of [place] 3.104.2.7 [place] .3.037888 Medica l .8 [place] 2020-02-07 2020-02-07 Travel 1.2.840.1 1.2.564.412 [id number] Univers 00:00:00 00:00:00 63544.1.1 350.1.13.10 ity of 3.104.2.7 [place].3.698 [place] .3.17[place] 084.8 [place] .8 [place] 2020-02-04 2020-02-04 Nurse Renetta, 1.2.840.5 [id number] Univers 00:00:00 00:00:00 Triage Ariana T 23081.1.1 ity of 3.104.2.7 [place] .3.152029 Medica l .8 Branch 2020-02-04 2020-02-04 Telephone Louise, 1.2.840.3 [id number] Univers 00:00:00 00:00:00 Mamadou Johns 30978.1.1 ity of 3.104.2.7 [place] .3.453015 Medica l .8 [place] 2020-02-02 2020-02-02 Outpatient R [facility] [id number] Univers 10:00:00 10:00:00 [id number] ity of [facility] 2020-02-02 2020-02-02 Outpatient R MAMI GODOY [facility] [id number] Univers 10:00:00 10:00:00 ity of [facility] 2020-02-02 2020-02-02 Travel 1.2.840.1 1.2.285.819 [id number] Univers 00:00:00 00:00:00 65358.1.1 350.1.13.10 ity of 3.104.2.7 [place].3.698 [place] .3.030249 084.8 Med[place] l .8 [place] 2020-02-01 2020-02-01 Travel 1.2.840.1 1.2.341.207 [id number] Univers 00:00:00 00:00:00 20832.1.1 350.1.13.10 ity of 3.104.2.7 4.[place]7.3.698 [place] .3.408959 084.8 Med[facility] l .8 [place] 2020-01-19 2020-01-19 Office Louise, 1.2.840.3 [id number] Univers 14:42:27 16:01:19 Visit Mamadou Johns 03511.1.1 ity of 3.104.2.7 [place] .3.451117 Medica l .8 [place] 2020-01-19 2020-01-19 Outpatient MAMADOU GIL [facility] [id number] Univers 15:00:00 15:00:00 MAMADOU GIL ity of [facility] 2020-01-19 2020-01-19 Outpatient R MAMADOU GIL [facility] [id number] Univers 15:00:00 15:00:00 MAMADOU GIL ity of [facility] 2020-01-19 2020-01-19 Travel 1.2.840.1 1.2.193.223 [id number] Univers 00:00:00 00:00:00 57466.1.1 350.1.13.10 ity of 3.104.2.7 [place]7.3.698 [place] .3.806699 084.8 Med[facility] l .8 [place] 2020-01-08 2020-01-08 Telephone Mayur Gil.2.840.4 [id number] Univers 00:00:00 00:00:00 Mamadou Gene 87813.1.1 ity of 3.104.2.7 [place] .3.351422 Medica l .8 [place] 2019-12-29 2019-12-29 Outpatient R [facility] [id number] Univers 10:00:00 10:00:00 [id number] ity of [facility] 2019-12-29 2019-12-29 Outpatient R LORENZAJESSICAK [facility] [id number] Univers 10:00:00 10:00:00 ity of [facility] 2019-12-29 2019-12-29 Travel 1.2.840.1 1.2.131.942 [id number] Univers 00:00:00 00:00:00 61782.1.1 350.1.13.10 ity of 3.104.2.7 [place]7.3.698 [place] .3.849946 084.8 Medica l .8 [place] 2019-11-24 2019-11-24 Outpatient R [facility] [id number] Univers 10:00:00 10:00:00 ity of [facility] 2019-11-24 2019-11-24 Outpatient R JUNO HOSKINS [facility] [id number] Univers 10:00:00 10:00:00 ity of [facility] 2019-11-24 2019-11-24 Travel 1.2.840.1 1.2.139.214 [id number] Univers 00:00:00 00:00:00 99581.1.1 350.1.13.10 ity of 3.104.2.7 [place].3.698 [place] .3.098741 084.8 Medica l .8 [place] 2019-10-12 2019-10-12 Outpatient R [facility] [id number] Univers 12:45:00 12:45:00 [id number] ity of [facility] 2019-10-12 2019-10-12 [facility] [id number] Univers 12:45:00 12:45:00 ADRIAN ity of [facility] 2019-09-08 2019-09-08 Outpatient R [facility] [id number] Univers 09:15:00 09:15:00 [id number] ity of [facility] 2019-09-08 2019-09-08 Outpatient R MAMI GODOY [facility] [id number] Univers 09:15:00 09:15:00 ity of [facility] 2019-09-06 2019-09-06 Janice Gil, 1.2.840.9 [id number] Univers 00:00:00 00:00:00 Mamadou Gene 13272.1.1 ity of 3.104.2.7 [place] .3.060381 Medica l .[address] [place] [address] 2019-08-11 2019-08-11 Outpatient R MAMI GODOY [facility] [id number] Univers 10:00:00 10:00:00 ity of [facility] 2019-02-20 2019-02-20 Flight Test Supervisor Mami Godoy 1.2.840.1 [id number] Univers 10:14:05 10:29:05 Visit 1, Adc Lab 96415.1.1 i ty of 3.104.2.7 [place] .3.803990 Medica l .8 [place] 2019-02-10 2019-02-10 Orders Doctor 1.2.840.7 [id number] Univers 00:00:00 00:00:00 Only Unassigned, 53255.1.1 ity of [place] 3.104.2.7 [place] .3.177029 Medica l .8 [place] 2019-01-11 2019-01-11 Refill Louise, 1.2.840.0 [id number] Univers 00:00:00 00:00:00 Mamadou Johns 81467.1.1 ity of 3.104.2.7 [place] .3.921897 Medica l .8 Branch 2018-12-26 2018-12-26 Office Louise, 1.2.840.7 [id number] Univers 15:42:00 17:08:53 Visit Mamadou Johns 04547.1.1 ity of 3.104.2.7 [place] .3.739610 Medica l .8 [place] 2018-11-21 2018-11-21 Orders Doctor 1.2.840.4 [id number] Univers 00:00:00 00:00:00 Only Unassigned, 70039.1.1 ity of [place] 3.104.2.7 [place] .3.315741 Medica l .8 [place] 2018-09-16 2018-09-16 Telephone Louise, 1.2.840.1 [id number] Univers 00:00:00 00:00:00 Mamadou Johns 00021.1.1 ity of 3.104.2.7 [place] .3.422537 Medica l .8 [place] 2018 2018 Office Louise, 1.2.840.6 [id number] Univers 15:36:03 17:23:49 Visit Mamadou Johns 83163.1.1 ity of 3.104.2.7 [place] .3.536538 Medica l .8 [place] Results Test Description Test Time Test Comments Results Result Comments Source VALPROIC ACID, TOTAL 2020-07-19 23:16:00 Test Item Value Reference Range Interpretation Comme nts VALPROIC A (test code = 1615771686) 32 ug/mL 50-100 L JOEY (test code = JOEY) Toxic Range: ?Greater than 100 ug/mL Lab Interpretation (test code = 93892-9) [facility]normal [facility] [id number] 23:16:00 Test Item Value Reference Range Interpretation Comments VALPROIC A (test code = 32 ug/mL 50-100 L [id number]) JOEY (test code = JOEY) Toxic Range: ?Greater than 100 ug/mL Lab Interpretation (test Abnormal code = 71186-8) [facility] [id number] 23:16:00 Test Item Value Reference Range Interpretation Comments VALPROIC A (test code = 32 ug/mL 50-100 L [id number]) JOEY (test code = JOEY) Toxic Range: ?Greater than 100 ug/mL Lab Interpretation (test Abnormal code = 65412-8) [facility] [id number] 23:16:00 Test Item Value Reference Range Interpretation Comments VALPROIC A (test code = 32 ug/mL 50-100 L [id number]) JOEY (test code = JOEY) Toxic Range: ?Greater than 100 ug/mL Lab Interpretation (test Abnormal code = 34846-5) [facility] [id number] 23:16:00 Test Item Value Reference Range Interpretation Comments VALPROIC A (test code = 32 ug/mL 50-100 L [id number]) JOEY (test code = JOEY) Toxic Range: ?Greater than 100 ug/mL Lab Interpretation (test Abnormal code = 23044-8) [facility] [id number] 23:16:00 Test Item Value Reference Range Interpretation Comments VALPROIC A (test code = 32 ug/mL 50-100 L [id number]) JOEY (test code = JOEY) Toxic Range: ?Greater than 100 ug/mL Lab Interpretation (test Abnormal code = 79359-5) [facility] [id number] 17:48:00 Test Item Value Reference Range Interpretation Comments TSH (test code = See_Comment [Automated message] [id number]) The system [employer] generated this result transmitted ref erence range: 0.45 - 4 .70 mIU/L. The refe rence range was not u sed to interpret this result as normal/abnor mal. Lab Interpretation (test Normal code = 67268-7) [facility] [id number] 17:48:00 Test Item Value Reference Range Interpretation Comments TSH (test code = See_Comment [Automated message] [id number]) The system [employer] generated this result transmitted ref erence range: 0.45 - 4 .70 mIU/L. The refe rence range was not u sed to interpret this result as normal/abnor mal. Lab Interpretation (test Normal code = 14663-5) [facility] [id number] 17:48:00 Test Item Value Reference Range Interpretation Comments TSH (test code = See_Comment [Automated message] [id number]) The system [employer] generated this result transmitted ref erence range: 0.45 - 4 .70 mIU/L. The refe rence range was not u sed to interpret this result as normal/abnor mal. Lab Interpretation (test Normal code = 37820-3) [facility]2020-09-23 17:48:00 Test Item Value Reference Range Interpretation Comments TSH (test code = See_Comment [Automated message] [id number]) The system [employer] generated this result transmitted ref erence range: 0.45 - 4 .70 mIU/L. The refe rence range was not u sed to interpret this result as normal/abnor mal. Lab Interpretation (test Normal code = 97894-2) [facility] [id number] 17:48:00 Test Item Value Reference Range Interpretation Comments TSH (test code = See_Comment [Automated message] [id number]) The system [employer] generated this result transmitted ref erence range: 0.45 - 4 .70 mIU/L. The refe rence range was not u sed to interpret this result as normal/abnor mal. Lab Interpretation (test Normal code = 61463-1) [facility] [id number] 17:48:00 Test Item Value Reference Range Interpretation Comments TSH (test code = See_Comment [Automated message] [id number]) The system [employer] generated this result transmitted ref erence range: 0.45 - 4 .70 mIU/L. The refe rence range was not u sed to interpret this result as normal/abnor mal. Lab Interpretation (test Normal code = 60061-3) [facility] [id number] 17:48:00 Test Item Value Reference Range Interpretation Comments TSH (test code = See_Comment [Automated message] [id number]) The system [employer] generated this result transmitted ref erence range: 0.45 - 4 .70 mIU/L. The refe rence range was not u sed to interpret this result as normal/abnor mal. Lab Interpretation (test Normal code = 89320-2) [facility] [id number] 17:48:00 Test Item Value Reference Range Interpretation Comments TSH (test code = See_Comment [Automated message] [id number]) The system [employer] generated this result transmitted ref erence range: 0.45 - 4 .70 mIU/L. The refe rence range was not u sed to interpret this result as normal/abnor mal. Lab Interpretation (test Normal code = 17499-4) [facility] [id number] 17:48:00 Test Item Value Reference Range Interpretation Comments TSH (test code = See_Comment [Automated message] [id number]) The system [employer] generated this result transmitted ref erence range: 0.45 - 4 .70 mIU/L. The refe rence range was not u sed to interpret this result as normal/abnor mal. Lab Interpretation (test Normal code = 08116-1) [facility] [id number] 17:48:00 Test Item Value Reference Range Interpretation Comments TSH (test code = See_Comment [Automated message] [id number]) The system [employer] generated this result transmitted ref erence range: 0.45 - 4 .70 mIU/L. The refe rence range was not u sed to interpret this result as normal/abnor mal. Lab Interpretation (test Normal code = 46098-3) [facility] [id number] 17:48:00 Test Item Value Reference Range Interpretation Comments TSH (test code = See_Comment [Automated message] [id number]) The system [employer] generated this result transmitted ref erence range: 0.45 - 4 .70 mIU/L. The refe rence range was not u sed to interpret this result as normal/abnor mal. Lab Interpretation (test Normal code = 90198-9) [facility] [id number] 17:48:00 Test Item Value Reference Range Interpretation Comments TSH (test code = See_Comment [Automated message] [id number]) The system [employer] generated this result transmitted ref erence range: 0.45 - 4 .70 mIU/L. The refe rence range was not u sed to interpret this result as normal/abnor mal. Lab Interpretation (test Normal code = 09945-7) [facility] [id number] 17:48:00 Test Item Value Reference Range Interpretation Comments TSH (test code = See_Comment [Automated message] 1382736029) The system [employer] generated this result transmitted ref erence range: 0.45 - 4 .70 mIU/L. The refe rence range was not u sed to interpret this result as normal/abnor mal. Lab Interpretation (test Normal code = 96636-6) [facility] [id number] 17:48:00 Test Item Value Reference Range Interpretation Comments TSH (test code = See_Comment [Automated message] [id number]) The system [employer] generated this result transmitted ref erence range: 0.45 - 4 .70 mIU/L. The refe rence range was not u sed to interpret this result as normal/abnor mal. Lab Interpretation (test Normal code = 21865-7) [facility] CenterL[facility] ([id number])(TOTAL CHOLESTEROL, TRIGLYCERIDES, HDL)2020-02-07 17:19:00 Test Item Value Reference Range Interpretation Comments CHOL (test code = 117 mg/dL 120-200 L 5256888724) HDL (test code = 38 mg/dL >40 L 5967704393) HDLC RATIO (test code = See_Comment [Au tomated message] 2481536788) The system [employer] generated this result transmit claribel reference range : <=5.0. The refe rence range was not u sed to interpret th is result as normal/abnormal . TRIG (test code = 50 mg/dL 30-170 6765475970) LDL CHOL (test code = 69 mg/dL See_Comment [Auto mated message] 13223-1) The system [employer] generated this result transmit claribel reference range : <=160. The refe rence range was not u sed to interpret th is result as normal/abnormal . VLDL (test code = 10 mg/dL 5-60 4358829529) Lab Interpretation (test Abnormal code = 35699-7) [facility] ([id number])(TOTAL CHOLESTEROL, TRIGLYCERIDES, HDL)2020-02-07 17:19:00 Test Item Value Reference Range Interpretation Comments CHOL (test code = 117 mg/dL 120-200 L 7545259238) HDL (test code = 38 mg/dL >40 L 8048025358) HDLC RATIO (test code = See_Comment [Au tomated message] 9672290166) The system [employer] generated this result transmit claribel reference range : <=5.0. The refe rence range was not u sed to interpret th is result as normal/abnormal . TRIG (test code = 50 mg/dL 30-170 9257553235) LDL CHOL (test code = 69 mg/dL See_Comment [Auto mated message] 49749-5) The system [employer] generated this result transmit claribel reference range : <=160. The refe rence range was not u sed to interpret th is result as normal/abnormal . VLDL (test code = 10 mg/dL 5-60 8402474880) Lab Interpretation (test Abnormal code = 30279-1) [facility] ([id number])(TOTAL CHOLESTEROL, TRIGLYCERIDES, HDL)2020-02-07 17:19:00 Test Item Value Reference Range Interpretation Comments CHOL (test code = 117 mg/dL 120-200 L 0645116301) HDL (test code = 38 mg/dL >40 L 0564458434) HDLC RATIO (test code = See_Comment [Au tomated message] 7660733116) The system [employer] generated this result transmit claribel reference range : <=5.0. The refe rence range was not u sed to interpret th is result as normal/abnormal . TRIG (test code = 50 mg/dL 30-170 0727666732) LDL CHOL (test code = 69 mg/dL See_Comment [Auto mated message] 76985-3) The system [employer] generated this result transmit claribel reference range : <=160. The refe rence range was not u sed to interpret th is result as normal/abnormal . VLDL (test code = 10 mg/dL 5-60 8450082059) Lab Interpretation (test Abnormal code = 52157-7) [facility] ([id number])(TOTAL CHOLESTEROL, TRIGLYCERIDES, HDL)2020-02-07 17:19:00 Test Item Value Reference Range Interpretation Comments CHOL (test code = 117 mg/dL 120-200 L 5901751351) HDL (test code = 38 mg/dL >40 L 9950564941) HDLC RATIO (test code = See_Comment [Au tomated message] 0790103569) The system [employer] generated this result transmit claribel reference range : <=5.0. The refe rence range was not u sed to interpret th is result as normal/abnormal . TRIG (test code = 50 mg/dL 30-170 0298969751) LDL CHOL (test code = 69 mg/dL See_Comment [Auto mated message] 89686-4) The system [employer] generated this result transmit claribel reference range : <=160. The refe rence range was not u sed to interpret th is result as normal/abnormal . VLDL (test code = 10 mg/dL 5-60 8405925116) Lab Interpretation (test Abnormal code = 54762-1) [facility]50[facility]TOTAL CHOLESTEROL, TRIGLYCERIDES, HDL)2020-02-07 17:19:00 Test Item Value Reference Range Interpretation Comments CHOL (test code = 117 mg/dL 120-200 L 0715333900) HDL (test code = 38 mg/dL >40 L 4174898366) HDLC RATIO (test code = See_Comment [Au tomated message] 8569585101) The system [employer] generated this result transmit claribel reference range : <=5.0. The refe rence range was not u sed to interpret th is result as normal/abnormal . TRIG (test code = 50 mg/dL 30-170 0755375530) LDL CHOL (test code = 69 mg/dL See_Comment [Auto mated message] 24262-1) The system [employer] generated this result transmit claribel reference range : <=160. The refe rence range was not u sed to interpret th is result as normal/abnormal . VLDL (test code = 10 mg/dL 5-60 7174505726) Lab Interpretation (test Abnormal code = 67045-6) [facility] ([id number])(TOTAL CHOLESTEROL, TRIGLYCERIDES, HDL)2020-02-07 17:19:00 Test Item Value Reference Range Interpretation Comments CHOL (test code = 117 mg/dL 120-200 L 8421839077) HDL (test code = 38 mg/dL >40 L 6995020643) HDLC RATIO (test code = See_Comment [Au tomated message] 0775812201) The system [employer] generated this result transmit claribel reference range : <=5.0. The refe rence range was not u sed to interpret th is result as normal/abnormal . TRIG (test code = 50 mg/dL 30-170 6418737699) LDL CHOL (test code = 69 mg/dL See_Comment [Auto mated message] 97065-4) The system [employer] generated this result transmit claribel reference range : <=160. The refe rence range was not u sed to interpret th is result as normal/abnormal . VLDL (test code = 10 mg/dL 5-60 5976100213) Lab Interpretation (test Abnormal code = 90812-0) [facility] ([id number])(TOTAL CHOLESTEROL, TRIGLYCERIDES, HDL)2020-02-07 17:19:00 Test Item Value Reference Range Interpretation Comments CHOL (test code = 117 mg/dL 120-200 L 3894715269) HDL (test code = 38 mg/dL >40 L 9559648078) HDLC RATIO (test code = See_Comment [Au tomated message] 3099068631) The system [employer] generated this result transmit claribel reference range : <=5.0. The refe rence range was not u sed to interpret th is result as normal/abnormal . TRIG (test code = 50 mg/dL 30-170 5999478613) LDL CHOL (test code = 69 mg/dL See_Comment [Auto mated message] 88598-2) The system [employer] generated this result transmit claribel reference range : <=160. The refe rence range was not u sed to interpret th is result as normal/abnormal . VLDL (test code = 10 mg/dL 5-60 7052642857) Lab Interpretation (test Abnormal code = 90652-5) [facility] (50254)(TOTAL CHOLESTEROL, TRIGLYCERIDES, HDL)2020-02-07 17:19:00 Test Item Value Reference Range Interpretation Comments CHOL (test code = 117 mg/dL 120-200 L 0363537993) HDL (test code = 38 mg/dL >40 L 7223780930) HDLC RATIO (test code = See_Comment [Au tomated message] 2682400130) The system [employer] generated this result transmit claribel reference range : <=5.0. The refe rence range was not u sed to interpret th is result as normal/abnormal . TRIG (test code = 50 mg/dL 30-170 8564840716) LDL CHOL (test code = 69 mg/dL See_Comment [Auto mated message] 47849-9) The system [employer] generated this result transmit claribel reference range : <=160. The refe rence range was not u sed to interpret th is result as normal/abnormal . VLDL (test code = 10 mg/dL 5-60 1086865395) Lab Interpretation (test Abnormal code = 54708-7) [facility] (78533)(TOTAL CHOLESTEROL, TRIGLYCERIDES, HDL)2020-02-07 17:19:00 Test Item Value Reference Range Interpretation Comments CHOL (test code = 117 mg/dL 120-200 L 5935470699) HDL (test code = 38 mg/dL >40 L 2046335662) HDLC RATIO (test code = See_Comment [Au tomated message] 0415149698) The system [employer] generated this result transmit claribel reference range : <=5.0. The refe rence range was not u sed to interpret th is result as normal/abnormal . TRIG (test code = 50 mg/dL 30-170 7861832873) LDL CHOL (test code = 69 mg/dL See_Comment [Auto mated message] 52051-3) The system [employer] generated this result transmit claribel reference range : <=160. The refe rence range was not u sed to interpret th is result as normal/abnormal . VLDL (test code = 10 mg/dL 5-60 7156044402) Lab Interpretation (test Abnormal code = 83227-8) [facility]58065[facility]TOTAL CHOLESTEROL, TRIGLYCERIDES, HDL)2020-02-07 17:19:00 Test Item Value Reference Range Interpretation Comments CHOL (test code = 117 mg/dL 120-200 L 4318862079) HDL (test code = 38 mg/dL >40 L 0064781101) HDLC RATIO (test code = See_Comment [Au tomated message] 6971870013) The system [employer] generated this result transmit claribel reference range : <=5.0. The refe rence range was not u sed to interpret th is result as normal/abnormal . TRIG (test code = 50 mg/dL 30-170 0191977014) LDL CHOL (test code = 69 mg/dL See_Comment [Auto mated message] 83234-3) The system [employer] generated this result transmit claribel reference range : <=160. The refe rence range was not u sed to interpret th is result as normal/abnormal . VLDL (test code = 10 mg/dL 5-60 5796869669) Lab Interpretation (test Abnormal code = 18043-3) [facility] (17931)(TOTAL CHOLESTEROL, TRIGLYCERIDES, HDL)2020-02-07 17:19:00 Test Item Value Reference Range Interpretation Comments CHOL (test code = 117 mg/dL 120-200 L 5577016224) HDL (test code = 38 mg/dL >40 L 0451816322) HDLC RATIO (test code = See_Comment [Au tomated message] 8757871314) The system [employer] generated this result transmit claribel reference range : <=5.0. The refe rence range was not u sed to interpret th is result as normal/abnormal . TRIG (test code = 50 mg/dL 30-170 0053425639) LDL CHOL (test code = 69 mg/dL See_Comment [Auto mated message] 09701-5) The system [employer] generated this result transmit claribel reference range : <=160. The refe rence range was not u sed to interpret th is result as normal/abnormal . VLDL (test code = 10 mg/dL 5-60 0637109767) Lab Interpretation (test Abnormal code = 74688-0) [facility] (76048)(TOTAL CHOLESTEROL, TRIGLYCERIDES, HDL)2020-02-07 17:19:00 Test Item Value Reference Range Interpretation Comments CHOL (test code = 117 mg/dL 120-200 L 4504678383) HDL (test code = 38 mg/dL >40 L 0144386234) HDLC RATIO (test code = See_Comment [Au tomated message] 9037814932) The system [employer] generated this result transmit claribel reference range : <=5.0. The refe rence range was not u sed to interpret th is result as normal/abnormal . TRIG (test code = 50 mg/dL 30-170 1879594137) LDL CHOL (test code = 69 mg/dL See_Comment [Auto mated message] 65046-5) The system [employer] generated this result transmit claribel reference range : <=160. The refe rence range was not u sed to interpret th is result as normal/abnormal . VLDL (test code = 10 mg/dL 5-60 6903067888) Lab Interpretation (test Abnormal code = 46944-5) [facility] (56640)(TOTAL CHOLESTEROL, TRIGLYCERIDES, HDL)2020-02-07 17:19:00 Test Item Value Reference Range Interpretation Comments CHOL (test code = 117 mg/dL 120-200 L 5834773383) HDL (test code = 38 mg/dL >40 L 7265934376) HDLC RATIO (test code = See_Comment [Au tomated message] 1358924874) The system [employer] generated this result transmit claribel reference range : <=5.0. The refe rence range was not u sed to interpret th is result as normal/abnormal . TRIG (test code = 50 mg/dL 30-170 4483604667) LDL CHOL (test code = 69 mg/dL See_Comment [Auto mated message] 74368-9) The system [employer] generated this result transmit claribel reference range : <=160. The refe rence range was not u sed to interpret th is result as normal/abnormal . VLDL (test code = 10 mg/dL 5-60 3690957558) Lab Interpretation (test Abnormal code = 87014-4) [facility]81504[facility]TOTAL CHOLESTEROL, TRIGLYCERIDES, HDL)2020-02-07 17:19:00 Test Item Value Reference Range Interpretation Comments CHOL (test code = 117 mg/dL 120-200 L 0987222249) HDL (test code = 38 mg/dL >40 L 7922301527) HDLC RATIO (test code = See_Comment [Au tomated message] 5764065985) The system [employer] generated this result transmit claribel reference range : <=5.0. The refe rence range was not u sed to interpret th is result as normal/abnormal . TRIG (test code = 50 mg/dL 30-170 8940996029) LDL CHOL (test code = 69 mg/dL See_Comment [Auto mated message] 34742-3) The system [employer] generated this result transmit claribel reference range : <=160. The refe rence range was not u sed to interpret th is result as normal/abnormal . VLDL (test code = 10 mg/dL 5-60 2801310038) Lab Interpretation (test Abnormal code = 73978-8) [facility]. METABOLIC PANEL (69980)2020-02-07 17:18:00 Test Item Value Reference Range Interpretation Comments NA (test code = 141 mmol/L 135-145 4896713906) K (test code = 4.3 mmol/L 3.5-5 0732506228) CL (test code = 103 mmol/L 98-108 5200585562) CO2 TOTAL (test code = 30 mmol/L 23-31 7222433457) AGAP (test code = 2-16 9201432571) BUN (test code = 13 mg/dL 7-23 4304849763) GLUCOSE (test code = 91 mg/dL 70-110 9878777733) CREATININE (test code = 0.80 mg/dL 0.6-1.25 4552842754) TOTAL BILI (test code = 0.6 mg/dL 0.1-1.7 3282017625) CALCIUM (test code = 9.7 mg/dL 8.6-10.6 9339489163) T PROTEIN (test code = 5.6 g/dL 6.3-8.2 L 2732504468) ALBUMIN (test code = 3.4 g/dL 3.5-5 L 0571633514) ALK PHOS (test code = 76 U/L 34-122 6830721240) ALTv (test code = 15 U/L 5-50 1742-6) AST(SGOT) (test code = 17 U/L 13-40 1710294352) eGFR Calculation mL/min/1.73m2 (Non-) (test code = 8381891529) eGFR Calculation mL/min/1.73m2 () (test code = 0246089494) JOEY (test code = JOEY) Association of [...] tests). Lab Interpretation Abnormal (test code = 41845-1) [facility]OL[facility] ([id number])2020-02-07 17:18:00 Test Item Value Reference Range Interpretation Comments NA (test code = 141 mmol/L 135-145 7984444347) K (test code = 4.3 mmol/L 3.5-5 4753913332) CL (test code = 103 mmol/L 98-108 0222574106) CO2 TOTAL (test code = 30 mmol/L 23-31 3642455278) AGAP (test code = 2-16 2741834573) BUN (test code = 13 mg/dL 7-23 6105770804) GLUCOSE (test code = 91 mg/dL 70-110 1826102850) CREATININE (test code = 0.80 mg/dL 0.6-1.25 0005143379) TOTAL BILI (test code = 0.6 mg/dL 0.1-1.0 9386691470) CALCIUM (test code = 9.7 mg/dL 8.6-10.6 0958278024) T PROTEIN (test code = 5.6 g/dL 6.3-8.2 L 2449972846) ALBUMIN (test code = 3.4 g/dL 3.5-5 L 9112028719) ALK PHOS (test code = 76 U/L 34-122 2470777551) ALTv (test code = 15 U/L 5-50 1742-6) AST(SGOT) (test code = 17 U/L 13-40 8889917624) eGFR Calculation mL/min/1.73m2 (Non-) (test code = 4858155055) eGFR Calculation mL/min/1.73m2 () (test code = 4891497705) JOEY (test code = JOEY) Association of [...] tests). Lab Interpretation Abnormal (test code = 72007-0) [facility]. METABOLIC PANEL (66012)2020-02-07 17:18:00 Test Item Value Reference Range Interpretation Comments NA (test code = 141 mmol/L 135-145 8605170227) K (test code = 4.3 mmol/L 3.5-5 1842778189) CL (test code = 103 mmol/L 98-108 8696726722) CO2 TOTAL (test code = 30 mmol/L 23-31 6023572034) AGAP (test code = 2-16 4478606738) BUN (test code = 13 mg/dL 7-23 1927004182) GLUCOSE (test code = 91 mg/dL 70-110 2675306659) CREATININE (test code = 0.80 mg/dL 0.6-1.25 6319084280) TOTAL BILI (test code = 0.6 mg/dL 0.1-1.7 7941373090) CALCIUM (test code = 9.7 mg/dL 8.6-10.6 0383180313) T PROTEIN (test code = 5.6 g/dL 6.3-8.2 L 2419734666) ALBUMIN (test code = 3.4 g/dL 3.5-5 L 5183840764) ALK PHOS (test code = 76 U/L 34-122 8590783355) ALTv (test code = 15 U/L 5-50 1742-6) AST(SGOT) (test code = 17 U/L 13-40 5560560238) eGFR Calculation mL/min/1.73m2 (Non-) (test code = 7359552645) eGFR Calculation mL/min/1.73m2 () (test code = 4013932759) JOEY (test code = JOEY) Association of [...] tests). Lab Interpretation Abnormal (test code = 47443-2) [facility]. METABOLIC PANEL (56687)2020-02-07 17:18:00 Test Item Value Reference Range Interpretation Comments NA (test code = 141 mmol/L 135-145 2748451704) K (test code = 4.3 mmol/L 3.5-5 4283992551) CL (test code = 103 mmol/L 98-108 5573442768) CO2 TOTAL (test code = 30 mmol/L 23-31 9450625597) AGAP (test code = 2-16 2761518068) BUN (test code = 13 mg/dL 7-23 0448691216) GLUCOSE (test code = 91 mg/dL 70-110 3275708645) CREATININE (test code = 0.80 mg/dL 0.6-1.25 4497608655) TOTAL BILI (test code = 0.6 mg/dL 0.1-1.5 8174235715) CALCIUM (test code = 9.7 mg/dL 8.6-10.6 3697762797) T PROTEIN (test code = 5.6 g/dL 6.3-8.2 L 6242002728) ALBUMIN (test code = 3.4 g/dL 3.5-5 L 4262233040) ALK PHOS (test code = 76 U/L 34-122 3038437112) ALTv (test code = 15 U/L 5-50 1742-6) AST(SGOT) (test code = 17 U/L 13-40 2865907065) eGFR Calculation mL/min/1.73m2 (Non-) (test code = 6916059739) eGFR Calculation mL/min/1.73m2 () (test code = 3015538032) JOEY (test code = JOEY) Association of [...] tests). Lab Interpretation Abnormal (test code = 24518-2) [facility] METABOLIC PANEL (32654)2020-02-07 17:18:00 Test Item Value Reference Range Interpretation Comments NA (test code = 141 mmol/L 135-145 4660618351) K (test code = 4.3 mmol/L 3.5-5 5162636005) CL (test code = 103 mmol/L 98-108 4558208320) CO2 TOTAL (test code = 30 mmol/L 23-31 6748571788) AGAP (test code = 2-16 5935009456) BUN (test code = 13 mg/dL 7-23 8052399890) GLUCOSE (test code = 91 mg/dL 70-110 0732326830) CREATININE (test code = 0.80 mg/dL 0.6-1.25 1581551380) TOTAL BILI (test code = 0.6 mg/dL 0.1-1.2 5944445561) CALCIUM (test code = 9.7 mg/dL 8.6-10.6 0566712268) T PROTEIN (test code = 5.6 g/dL 6.3-8.2 L 0242318811) ALBUMIN (test code = 3.4 g/dL 3.5-5 L 7519370535) ALK PHOS (test code = 76 U/L 34-122 2112356617) ALTv (test code = 15 U/L 5-50 1742-6) AST(SGOT) (test code = 17 U/L 13-40 7164878492) eGFR Calculation mL/min/1.73m2 (Non-) (test code = 4262697266) eGFR Calculation mL/min/1.73m2 () (test code = 5743041467) JOEY (test code = JOEY) Association of [...] tests). Lab Interpretation Abnormal (test code = 23800-5) [facility]. METABOLIC PANEL (50050)2020-02-07 17:18:00 Test Item Value Reference Range Interpretation Comments NA (test code = 141 mmol/L 135-145 7338404615) K (test code = 4.3 mmol/L 3.5-5 8790780062) CL (test code = 103 mmol/L 98-108 0504833564) CO2 TOTAL (test code = 30 mmol/L 23-31 2631908673) AGAP (test code = 2-16 7178481422) BUN (test code = 13 mg/dL 7-23 8179656733) GLUCOSE (test code = 91 mg/dL 70-110 3999011787) CREATININE (test code = 0.80 mg/dL 0.6-1.25 8482949157) TOTAL BILI (test code = 0.6 mg/dL 0.1-1.9 2790460072) CALCIUM (test code = 9.7 mg/dL 8.6-10.6 2889380282) T PROTEIN (test code = 5.6 g/dL 6.3-8.2 L 0300904835) ALBUMIN (test code = 3.4 g/dL 3.5-5 L 0234090745) ALK PHOS (test code = 76 U/L 34-122 7022066269) ALTv (test code = 15 U/L 5-50 1742-6) AST(SGOT) (test code = 17 U/L 13-40 0033674907) eGFR Calculation mL/min/1.73m2 (Non-) (test code = 5167125210) eGFR Calculation mL/min/1.73m2 () (test code = 1869510484) JOEY (test code = JOEY) Association of [...] tests). Lab Interpretation Abnormal (test code = 82162-8) [facility] ([id number])2020-02-07 17:18:00 Test Item Value Reference Range Interpretation Comments NA (test code = 141 mmol/L 135-145 5626100847) K (test code = 4.3 mmol/L 3.5-5 1408291648) CL (test code = 103 mmol/L 98-108 7681396203) CO2 TOTAL (test code = 30 mmol/L 23-31 0814792693) AGAP (test code = 2-16 4443680138) BUN (test code = 13 mg/dL 7-23 9783769813) GLUCOSE (test code = 91 mg/dL 70-110 0312465520) CREATININE (test code = 0.80 mg/dL 0.6-1.25 2123945660) TOTAL BILI (test code = 0.6 mg/dL 0.1-1.7 7893196977) CALCIUM (test code = 9.7 mg/dL 8.6-10.6 9475489594) T PROTEIN (test code = 5.6 g/dL 6.3-8.2 L 0691912988) ALBUMIN (test code = 3.4 g/dL 3.5-5 L 8214849629) ALK PHOS (test code = 76 U/L 34-122 4232847407) ALTv (test code = 15 U/L 5-50 1742-6) AST(SGOT) (test code = 17 U/L 13-40 6252897802) eGFR Calculation mL/min/1.73m2 (Non-) (test code = 8010384549) eGFR Calculation mL/min/1.73m2 () (test code = 7619236184) JOEY (test code = JOEY) Association of [...] tests). Lab Interpretation Abnormal (test code = 97725-2) [facility]. METABOLIC PANEL ([id number])2020-02-07 17:18:00 Test Item Value Reference Range Interpretation Comments NA (test code = 141 mmol/L 135-145 9506793898) K (test code = 4.3 mmol/L 3.5-5 7771831808) CL (test code = 103 mmol/L 98-108 2194781371) CO2 TOTAL (test code = 30 mmol/L 23-31 4772971151) AGAP (test code = 2-16 3854241518) BUN (test code = 13 mg/dL 7-23 6634717178) GLUCOSE (test code = 91 mg/dL 70-110 1841050595) CREATININE (test code = 0.80 mg/dL 0.6-1.25 0521628675) TOTAL BILI (test code = 0.6 mg/dL 0.1-1.8 5439295406) CALCIUM (test code = 9.7 mg/dL 8.6-10.6 8003730393) T PROTEIN (test code = 5.6 g/dL 6.3-8.2 L 5945249442) ALBUMIN (test code = 3.4 g/dL 3.5-5 L 4082219533) ALK PHOS (test code = 76 U/L 34-122 4643140605) ALTv (test code = 15 U/L 5-50 1742-6) AST(SGOT) (test code = 17 U/L 13-40 9061495777) eGFR Calculation mL/min/1.73m2 (Non-) (test code = 9928309242) eGFR Calculation mL/min/1.73m2 () (test code = 5181332686) JOEY (test code = JOEY) Association of [...] tests). Lab Interpretation Abnormal (test code = 43518-0) [facility]. METABOLIC PANEL ([id number])2020-02-07 17:18:00 Test Item Value Reference Range Interpretation Comments NA (test code = 141 mmol/L 135-145 7818329701) K (test code = 4.3 mmol/L 3.5-5 4618330911) CL (test code = 103 mmol/L 98-108 9374584806) CO2 TOTAL (test code = 30 mmol/L 23-31 0854572342) AGAP (test code = 2-16 4624707651) BUN (test code = 13 mg/dL 7-23 1383890971) GLUCOSE (test code = 91 mg/dL 70-110 8395500372) CREATININE (test code = 0.80 mg/dL 0.6-1.25 2140793916) TOTAL BILI (test code = 0.6 mg/dL 0.1-1.4 4223609461) CALCIUM (test code = 9.7 mg/dL 8.6-10.6 5328186688) T PROTEIN (test code = 5.6 g/dL 6.3-8.2 L 2883302612) ALBUMIN (test code = 3.4 g/dL 3.5-5 L 6100733326) ALK PHOS (test code = 76 U/L 34-122 9915461485) ALTv (test code = 15 U/L 5-50 1742-6) AST(SGOT) (test code = 17 U/L 13-40 6739618643) eGFR Calculation mL/min/1.73m2 (Non-) (test code = 2145229491) eGFR Calculation mL/min/1.73m2 () (test code = 3295415776) JOEY (test code = JOEY) Association of [...] tests). Lab Interpretation Abnormal (test code = 93465-3) [facility] METABOLIC PANEL ([id number])2020-02-07 17:18:00 Test Item Value Reference Range Interpretation Comments NA (test code = 141 mmol/L 135-145 5121090364) K (test code = 4.3 mmol/L 3.5-5 3587429737) CL (test code = 103 mmol/L 98-108 2740259225) CO2 TOTAL (test code = 30 mmol/L 23-31 9459226263) AGAP (test code = 2-16 0200555822) BUN (test code = 13 mg/dL 7-23 5953192516) GLUCOSE (test code = 91 mg/dL 70-110 8360574088) CREATININE (test code = 0.80 mg/dL 0.6-1.25 7429123747) TOTAL BILI (test code = 0.6 mg/dL 0.1-1.4 2342192191) CALCIUM (test code = 9.7 mg/dL 8.6-10.6 7012547315) T PROTEIN (test code = 5.6 g/dL 6.3-8.2 L 1519012681) ALBUMIN (test code = 3.4 g/dL 3.5-5 L 7677929027) ALK PHOS (test code = 76 U/L 34-122 9112327241) ALTv (test code = 15 U/L 5-50 1742-6) AST(SGOT) (test code = 17 U/L 13-40 0912961811) eGFR Calculation mL/min/1.73m2 (Non-) (test code = 7980440976) eGFR Calculation mL/min/1.73m2 () (test code = 0526231798) JOEY (test code = JOEY) Association of [...] tests). Lab Interpretation Abnormal (test code = 82472-2) [facility]. METABOLIC PANEL ([id number])2020-02-07 17:18:00 Test Item Value Reference Range Interpretation Comments NA (test code = 141 mmol/L 135-145 1975399106) K (test code = 4.3 mmol/L 3.5-5 2254568533) CL (test code = 103 mmol/L 98-108 8989075288) CO2 TOTAL (test code = 30 mmol/L 23-31 2280261231) AGAP (test code = 2-16 5934707431) BUN (test code = 13 mg/dL 7-23 2544924294) GLUCOSE (test code = 91 mg/dL 70-110 1984800765) CREATININE (test code = 0.80 mg/dL 0.6-1.25 3222456936) TOTAL BILI (test code = 0.6 mg/dL 0.1-1.2 8887045558) CALCIUM (test code = 9.7 mg/dL 8.6-10.6 8119065336) T PROTEIN (test code = 5.6 g/dL 6.3-8.2 L 2083144020) ALBUMIN (test code = 3.4 g/dL 3.5-5 L 0361249927) ALK PHOS (test code = 76 U/L 34-122 3487986977) ALTv (test code = 15 U/L 5-50 1742-6) AST(SGOT) (test code = 17 U/L 13-40 5852038577) eGFR Calculation mL/min/1.73m2 (Non-) (test code = 3794589159) eGFR Calculation mL/min/1.73m2 () (test code = 4831495802) JOEY (test code = JOEY) Association of [...] tests). Lab Interpretation Abnormal (test code = 31958-6) [facility][id number][facility]2020-[facility]-07 17:18:00 Test Item Value Reference Range Interpretation Comments NA (test code = 141 mmol/L 135-145 5205513082) K (test code = 4.3 mmol/L 3.5-5 4479565422) CL (test code = 103 mmol/L 98-108 9326309635) CO2 TOTAL (test code = 30 mmol/L 23-31 6293993768) AGAP (test code = 2-16 8134639660) BUN (test code = 13 mg/dL 7-23 4481440471) GLUCOSE (test code = 91 mg/dL 70-110 4668252416) CREATININE (test code = 0.80 mg/dL 0.6-1.25 3409703490) TOTAL BILI (test code = 0.6 mg/dL 0.1-1.0 3443195685) CALCIUM (test code = 9.7 mg/dL 8.6-10.6 5786094771) T PROTEIN (test code = 5.6 g/dL 6.3-8.2 L 5223121538) ALBUMIN (test code = 3.4 g/dL 3.5-5 L 2484661546) ALK PHOS (test code = 76 U/L 34-122 1935614050) ALTv (test code = 15 U/L 5-50 1742-6) AST(SGOT) (test code = 17 U/L 13-40 6993267620) eGFR Calculation mL/min/1.73m2 (Non-) (test code = 5830220618) eGFR Calculation mL/min/1.73m2 () (test code = 8981559090) JOEY (test code = JOEY) Association of [...] tests). Lab Interpretation Abnormal (test code = 00869-6) [facility]. METABOLIC PANEL ([id number])2020-02-07 17:18:00 Test Item Value Reference Range Interpretation Comments NA (test code = 141 mmol/L 135-145 5970686238) K (test code = 4.3 mmol/L 3.5-5 5446839428) CL (test code = 103 mmol/L 98-108 4595462607) CO2 TOTAL (test code = 30 mmol/L 23-31 4587927385) AGAP (test code = 2-16 9163501829) BUN (test code = 13 mg/dL 7-23 1419276155) GLUCOSE (test code = 91 mg/dL 70-110 1657005491) CREATININE (test code = 0.80 mg/dL 0.6-1.25 4899809191) TOTAL BILI (test code = 0.6 mg/dL 0.1-1.2 3904492162) CALCIUM (test code = 9.7 mg/dL 8.6-10.6 5864025709) T PROTEIN (test code = 5.6 g/dL 6.3-8.2 L 2918811921) ALBUMIN (test code = 3.4 g/dL 3.5-5 L 5486614962) ALK PHOS (test code = 76 U/L 34-122 4595524832) ALTv (test code = 15 U/L 5-50 1742-6) AST(SGOT) (test code = 17 U/L 13-40 3969533363) eGFR Calculation mL/min/1.73m2 (Non-) (test code = 8729100211) eGFR Calculation mL/min/1.73m2 () (test code = 1830543211) JOEY (test code = JOEY) Association of [...] tests). Lab Interpretation Abnormal (test code = 32842-8) [facility]. METABOLIC PANEL ([id number])2020-02-07 17:18:00 Test Item Value Reference Range Interpretation Comments NA (test code = 141 mmol/L 135-145 2421781272) K (test code = 4.3 mmol/L 3.5-5 1076809376) CL (test code = 103 mmol/L 98-108 4620217935) CO2 TOTAL (test code = 30 mmol/L 23-31 9783603534) AGAP (test code = 2-16 6147924218) BUN (test code = 13 mg/dL 7-23 7129002630) GLUCOSE (test code = 91 mg/dL 70-110 6537240200) CREATININE (test code = 0.80 mg/dL 0.6-1.25 7209218788) TOTAL BILI (test code = 0.6 mg/dL 0.1-1.8 5775161054) CALCIUM (test code = 9.7 mg/dL 8.6-10.6 0244508709) T PROTEIN (test code = 5.6 g/dL 6.3-8.2 L 8438768505) ALBUMIN (test code = 3.4 g/dL 3.5-5 L 5143132957) ALK PHOS (test code = 76 U/L 34-122 3104085306) ALTv (test code = 15 U/L 5-50 1742-6) AST(SGOT) (test code = 17 U/L 13-40 0703344007) eGFR Calculation mL/min/1.73m2 (Non-) (test code = 6176728203) eGFR Calculation mL/min/1.73m2 () (test code = 5337647590) JOEY (test code = JOEY) Association of [...] tests). Lab Interpretation Abnormal (test code = 64816-7) [facility] [id number] 17:06:00 Test Item Value Reference Range Interpretation Comments VALPROIC A (test code = 38 ug/mL 50-100 L 1575446739) JOEY (test code = JOEY) Toxic Range: ?Greater than 100 ug/mL Lab Interpretation (test Abnormal code = 69361-9) [facility] [id number] 17:06:00 Test Item Value Reference Range Interpretation Comments VALPROIC A (test code = 38 ug/mL 50-100 L 8818573253) JOEY (test code = JOEY) Toxic Range: ?Greater than 100 ug/mL Lab Interpretation (test Abnormal code = 15765-3) [facility] [id number] 17:06:00 Test Item Value Reference Range Interpretation Comments VALPROIC A (test code = 38 ug/mL 50-100 L 0003061084) JOEY (test code = JOEY) Toxic Range: ?Greater than 100 ug/mL Lab Interpretation (test Abnormal code = 48658-1) [facility] [id number] 17:06:00 Test Item Value Reference Range Interpretation Comments VALPROIC A (test code = 38 ug/mL 50-100 L 9617508726) JOEY (test code = JOEY) Toxic Range: ?Greater than 100 ug/mL Lab Interpretation (test Abnormal code = 38416-3) [facility] [id number] 17:06:00 Test Item Value Reference Range Interpretation Comments VALPROIC A (test code = 38 ug/mL 50-100 L 3820558435) JOEY (test code = JOEY) Toxic Range: ?Greater than 100 ug/mL Lab Interpretation (test Abnormal code = 78636-5) [facility] [id number] 17:06:00 Test Item Value Reference Range Interpretation Comments VALPROIC A (test code = 38 ug/mL 50-100 L 3999369674) JOEY (test code = JOEY) Toxic Range: ?Greater than 100 ug/mL Lab Interpretation (test Abnormal code = 64729-2) [facility] [id number] 17:06:00 Test Item Value Reference Range Interpretation Comments VALPROIC A (test code = 38 ug/mL 50-100 L 7151598682) JOEY (test code = JOEY) Toxic Range: ?Greater than 100 ug/mL Lab Interpretation (test Abnormal code = 87947-3) [facility] [id number] 17:06:00 Test Item Value Reference Range Interpretation Comments VALPROIC A (test code = 38 ug/mL 50-100 L 4922865096) JOEY (test code = JOEY) Toxic Range: ?Greater than 100 ug/mL Lab Interpretation (test Abnormal code = 64235-0) [facility] [id number] 17:06:00 Test Item Value Reference Range Interpretation Comments VALPROIC A (test code = 38 ug/mL 50-100 L 1501448302) JOEY (test code = JOEY) Toxic Range: ?Greater than 100 ug/mL Lab Interpretation (test Abnormal code = 40092-6) [facility] [id number] 17:06:00 Test Item Value Reference Range Interpretation Comments VALPROIC A (test code = 38 ug/mL 50-100 L 6175154984) JOEY (test code = JOEY) Toxic Range: ?Greater than 100 ug/mL Lab Interpretation (test Abnormal code = 68872-3) [facility] [id number] 17:06:00 Test Item Value Reference Range Interpretation Comments VALPROIC A (test code = 38 ug/mL 50-100 L 8904820545) JOEY (test code = JOEY) Toxic Range: ?Greater than 100 ug/mL Lab Interpretation (test Abnormal code = 78900-3) [facility] [id number] 17:06:00 Test Item Value Reference Range Interpretation Comments VALPROIC A (test code = 38 ug/mL 50-100 L 2986097680) JOEY (test code = JOEY) Toxic Range: ?Greater than 100 ug/mL Lab Interpretation (test Abnormal code = 55543-2) [facility] [id number] 17:06:00 Test Item Value Reference Range Interpretation Comments VALPROIC A (test code = 38 ug/mL 50-100 L 4743389069) JOEY (test code = JOEY) Toxic Range: ?Greater than 100 ug/mL Lab Interpretation (test Abnormal code = 92043-1) [facility] [id number] 17:06:00 Test Item Value Reference Range Interpretation Comments VALPROIC A (test code = 38 ug/mL 50-100 L 9925183954) JOEY (test code = JOEY) Toxic Range: ?Greater than 100 ug/mL Lab Interpretation (test Abnormal code = 99468-0) [facility], [id number] 17:06:00 Test Item Value Reference Range Interpretation Comments VALPROIC A (test code = 38 ug/mL 50-100 L 5950295229) JOEY (test code = JOEY) Toxic Range: ?Greater than 100 ug/mL Lab Interpretation (test Abnormal code = 86764-2) [facility] (A1C)2020-02-07 16:23:00 Test Item Value Reference Range Interpretation Comments HGB A1C (test code = 5.1 % 4-6 4548-4) JOEY (test code = JOEY) %A1C (NGSP) Interpretation (ADA)4.8-5.6 ? ? Normal or (Non-Diabetic Range)5.7-6.4 ? ? Increased Risk (Pre-Diabetic)>6.5 ?Diabetes Indicated Lab Interpretation Normal (test code = 00060-5) [facility]C)2020-02-07 16:23:00 Test Item Value Reference Range Interpretation Comments HGB A1C (test code = 5.1 % 4-6 4548-4) JOEY (test code = JOEY) %A1C (NGSP) Interpretation (ADA)4.8-5.6 ? ? Normal or (Non-Diabetic Range)5.7-6.4 ? ? Increased Risk (Pre-Diabetic)>6.5 ?Diabetes Indicated Lab Interpretation Normal (test code = 06439-0) [facility]C)2020-02-07 16:23:00 Test Item Value Reference Range Interpretation Comments HGB A1C (test code = 5.1 % 4-6 4548-4) JOEY (test code = JOEY) %A1C (NGSP) Interpretation (ADA)4.8-5.6 ? ? Normal or (Non-Diabetic Range)5.7-6.4 ? ? Increased Risk (Pre-Diabetic)>6.5 ?Diabetes Indicated Lab Interpretation Normal (test code = 65657-4) [facility]C)2020-02-07 16:23:00 Test Item Value Reference Range Interpretation Comments HGB A1C (test code = 5.1 % 4-6 4548-4) JOEY (test code = JOEY) %A1C (NGSP) Interpretation (ADA)4.8-5.6 ? ? Normal or (Non-Diabetic Range)5.7-6.4 ? ? Increased Risk (Pre-Diabetic)>6.5 ?Diabetes Indicated Lab Interpretation Normal (test code = 92874-5) [facility]C)2020-02-07 16:23:00 Test Item Value Reference Range Interpretation Comments HGB A1C (test code = 5.1 % 4-6 4548-4) JOEY (test code = JOEY) %A1C (NGSP) Interpretation (ADA)4.8-5.6 ? ? Normal or (Non-Diabetic Range)5.7-6.4 ? ? Increased Risk (Pre-Diabetic)>6.5 ?Diabetes Indicated Lab Interpretation Normal (test code = 24113-6) [facility]C)2020-02-07 16:23:00 Test Item Value Reference Range Interpretation Comments HGB A1C (test code = 5.1 % 4-6 4548-4) JOEY (test code = JOEY) %A1C (NGSP) Interpretation (ADA)4.8-5.6 ? ? Normal or (Non-Diabetic Range)5.7-6.4 ? ? Increased Risk (Pre-Diabetic)>6.5 ?Diabetes Indicated Lab Interpretation Normal (test code = 10617-2) [facility]2020-02-07 16:23:00 Test Item Value Reference Range Interpretation Comments HGB A1C (test code = 5.1 % 4-6 4548-4) JOEY (test code = JOEY) %A1C (NGSP) Interpretation (ADA)4.8-5.6 ? ? Normal or (Non-Diabetic Range)5.7-6.4 ? ? Increased Risk (Pre-Diabetic)>6.5 ?Diabetes Indicated Lab Interpretation Normal (test code = 97826-4) [facility]2020-02-07 16:23:00 Test Item Value Reference Range Interpretation Comments HGB A1C (test code = 5.1 % 4-6 4548-4) JOEY (test code = JOEY) %A1C (NGSP) Interpretation (ADA)4.8-5.6 ? ? Normal or (Non-Diabetic Range)5.7-6.4 ? ? Increased Risk (Pre-Diabetic)>6.5 ?Diabetes Indicated Lab Interpretation Normal (test code = 97940-8) [facility]2020-02-07 16:23:00 Test Item Value Reference Range Interpretation Comments HGB A1C (test code = 5.1 % 4-6 4548-4) JOEY (test code = JOEY) %A1C (NGSP) Interpretation (ADA)4.8-5.6 ? ? Normal or (Non-Diabetic Range)5.7-6.4 ? ? Increased Risk (Pre-Diabetic)>6.5 ?Diabetes Indicated Lab Interpretation Normal (test code = 36798-8) [facility]2020-02-07 16:23:00 Test Item Value Reference Range Interpretation Comments HGB A1C (test code = 5.1 % 4-6 4548-4) JOEY (test code = JOEY) %A1C (NGSP) Interpretation (ADA)4.8-5.6 ? ? Normal or (Non-Diabetic Range)5.7-6.4 ? ? Increased Risk (Pre-Diabetic)>6.5 ?Diabetes Indicated Lab Interpretation Normal (test code = 54625-7) [facility]2020-02-07 16:23:00 Test Item Value Reference Range Interpretation Comments HGB A1C (test code = 5.1 % 4-6 4548-4) JOEY (test code = JOEY) %A1C (NGSP) Interpretation (ADA)4.8-5.6 ? ? Normal or (Non-Diabetic Range)5.7-6.4 ? ? Increased Risk (Pre-Diabetic)>6.5 ?Diabetes Indicated Lab Interpretation Normal (test code = 18676-8) [facility]2020-02-07 16:23:00 Test Item Value Reference Range Interpretation Comments HGB A1C (test code = 5.1 % 4-6 4548-4) JOEY (test code = JOEY) %A1C (NGSP) Interpretation (ADA)4.8-5.6 ? ? Normal or (Non-Diabetic Range)5.7-6.4 ? ? Increased Risk (Pre-Diabetic)>6.5 ?Diabetes Indicated Lab Interpretation Normal (test code = 91647-0) [facility]2020-02-07 16:23:00 Test Item Value Reference Range Interpretation Comments HGB A1C (test code = 5.1 % 4-6 4548-4) JOEY (test code = JOEY) %A1C (NGSP) Interpretation (ADA)4.8-5.6 ? ? Normal or (Non-Diabetic Range)5.7-6.4 ? ? Increased Risk (Pre-Diabetic)>6.5 ?Diabetes Indicated Lab Interpretation Normal (test code = 08162-6) [facility]2020-02-07 16:23:00 Test Item Value Reference Range Interpretation Comments HGB A1C (test code = 5.1 % 4-6 4548-4) JOEY (test code = JOEY) %A1C (NGSP) Interpretation (ADA)4.8-5.6 ? ? Normal or (Non-Diabetic Range)5.7-6.4 ? ? Increased Risk (Pre-Diabetic)>6.5 ?Diabetes Indicated Lab Interpretation Normal (test code = 97654-3) [facility]2020-02-07 16:23:00 Test Item Value Reference Range Interpretation Comments HGB A1C (test code = 5.1 % 4-6 4548-4) JOEY (test code = JOEY) %A1C (NGSP) Interpretation (ADA)4.8-5.6 ? ? Normal or (Non-Diabetic Range)5.7-6.4 ? ? Increased Risk (Pre-Diabetic)>6.5 ?Diabetes Indicated Lab Interpretation Normal (test code = 81065-0) [facility] WITH [id number] 15:41:00 Test Item Value Reference Range Interpretation [...] RDW-SD (test code = 51.1 fL 38.5-51.6 95035-0) RDW-CV (test code = 13.9 % 12.1-15.4 788-0) PLT (test code = See_Comment [Automated 777-3) message] The sy stem which generated this result transmitted reference range : 150 - 328 10*3/ ?L. The reference r sarahy was not used to interpret this result as normal/abnormal . MPV (test code = 10.3 fL 9.8-13 79382-3) NRBC/100 WBC (test See_Comment [Automat ed code = 8729073404) message] The system which generated this result transmitted reference range : 0.0 - 10.0 /100 WBCs. The refer ence range was not u sed to interpret th is result as normal/abnormal . NRBC x10^3 (test code <0.01 See_Comment [Auto mated = 2119340930) message] The s ystem which generated this result transmitted reference range : 10*3/?L. The reference range was not used to interpret this result as normal/abnormal . GRAN MAT (NEUT) % 64.3 % (test code = 770-8) IMM GRAN % (test code 0.30 % = 1502361868) LYMPH % (test code = 22.6 % 736-9) MONO % (test code = 8.8 % 5905-5) EOS % (test code = 3.0 % 713-8) BASO % (test code = 1.0 % 706-2) GRAN MAT x10^3(ANC) 4.02 10*3/uL 1.99-6.95 (test code = 9663110742) IMM GRAN x10^3 (test <0.03 0-0.06 code = 3977263769) LYMPH x10^3 (test code 1.41 10*3/uL 1.09-3.23 = 731-0) MONO x10^3 (test code 0.55 10*3/uL 0.36-1.02 = 742-7) EOS x10^3 (test code = 0.19 10*3/uL 0.06-0.53 711-2) BASO x10^3 (test code 0.06 10*3/uL 0.01-0.09 = 704-7) Lab Interpretation Abnormal (test code = 95287-0) [facility] WITH [id number] 15:41:00 Test Item Value Reference Range Interpretation Comments WBC (test code = See_Comment [Automated 7879-2) message] The sy stem which generated this result transmitted reference range : 4.20 - 10.70 10*3/?L. The reference range was not used to interpret this result as normal/abnormal . RBC (test code = See_Comment [Automated 414-8) message] The sy stem which generated this [...] RDW-SD (test code = 51.1 fL 38.5-51.6 11277-8) RDW-CV (test code = 13.9 % 12.1-15.4 788-0) PLT (test code = See_Comment [Automated 777-3) message] The sy stem which generated this result transmitted reference range : 150 - 328 10*3/ ?L. The reference r sarahy was not used to interpret this result as normal/abnormal . MPV (test code = 10.3 fL 9.8-13 66846-2) NRBC/100 WBC (test See_Comment [Automat ed code = 1431128355) message] The system which generated this result transmitted reference range : 0.0 - 10.0 /100 WBCs. The refer ence range was not u sed to interpret th is result as normal/abnormal . NRBC x10^3 (test code <0.01 See_Comment [Auto mated = 7157167338) message] The s ystem which generated this result transmitted reference range : 10*3/?L. The reference range was not used to interpret this result as normal/abnormal . GRAN MAT (NEUT) % 64.3 % (test code = 770-8) IMM GRAN % (test code 0.30 % = 3894194569) LYMPH % (test code = 22.6 % 736-9) MONO % (test code = 8.8 % 5905-5) EOS % (test code = 3.0 % 713-8) BASO % (test code = 1.0 % 706-2) GRAN MAT x10^3(ANC) 4.02 10*3/uL 1.99-6.95 (test code = 4289155047) IMM GRAN x10^3 (test <0.03 0-0.06 code = 6765101048) LYMPH x10^3 (test code 1.41 10*3/uL 1.09-3.23 = 731-0) MONO x10^3 (test code 0.55 10*3/uL 0.36-1.02 = 742-7) EOS x10^3 (test code = 0.19 10*3/uL 0.06-0.53 711-2) BASO x10^3 (test code 0.06 10*3/uL 0.01-0.09 = 704-7) Lab Interpretation Abnormal (test code = 26724-6) [facility] WITH [id number] 15:41:00 Test Item Value Reference Range Interpretation [...] RDW-SD (test code = 51.1 fL 38.5-51.6 33273-3) RDW-CV (test code = 13.9 % 12.1-15.4 788-0) PLT (test code = See_Comment [Automated 777-3) message] The sy stem which generated this result transmitted reference range : 150 - 328 10*3/ ?L. The reference r sarahy was not used to interpret this result as normal/abnormal . MPV (test code = 10.3 fL 9.8-13 62287-6) NRBC/100 WBC (test See_Comment [Automat ed code = [id number]) message] The system which generated this result transmitted reference range : 0.0 - 10.0 /100 WBCs. The refer ence range was not u sed to interpret th is result as normal/abnormal . NRBC x10^3 (test code <0.01 See_Comment [Auto mated = [id number]) message] The s ystem which generated this result transmitted reference range : 10*3/?L. The reference range was not used to interpret this result as normal/abnormal . GRAN MAT (NEUT) % 64.3 % (test code = 770-8) IMM GRAN % (test code 0.30 % = [id number]) LYMPH % (test code = 22.6 % 736-9) MONO % (test code = 8.8 % 5905-5) EOS % (test code = 3.0 % 713-8) BASO % (test code = 1.0 % 706-2) GRAN MAT x10^3(ANC) 4.02 10*3/uL 1.99-6.95 (test code = [id number]) IMM GRAN x10^3 (test <0.03 0-0.06 code = [id number]) LYMPH x10^3 (test code 1.41 10*3/uL 1.09-3.23 = 731-0) MONO x10^3 (test code 0.55 10*3/uL 0.36-1.02 = 742-7) EOS x10^3 (test code = 0.19 10*3/uL 0.06-0.53 711-2) BASO x10^3 (test code 0.06 10*3/uL 0.01-0.09 = 704-7) Lab Interpretation Abnormal (test code = 82928-0) [facility] WITH [id number] 15:41:00 Test Item Value Reference Range Interpretation Comments WBC (test code = See_Comment [Automated 1290-2) message] The sy stem which generated this result transmitted reference range : 4.20 - 10.70 10*3/?L. The reference range was not used to interpret this result as normal/abnormal . RBC (test code = See_Comment [Automated 879-8) message] The sy stem which generated this [...] RDW-SD (test code = 51.1 fL 38.5-51.6 06100-8) RDW-CV (test code = 13.9 % 12.1-15.4 788-0) PLT (test code = See_Comment [Automated 777-3) message] The sy stem which generated this result transmitted reference range : 150 - 328 10*3/ ?L. The reference r sarahy was not used to interpret this result as normal/abnormal . MPV (test code = 10.3 fL 9.8-13 60892-3) NRBC/100 WBC (test See_Comment [Automat ed code = 9273209292) message] The system which generated this result transmitted reference range : 0.0 - 10.0 /100 WBCs. The refer ence range was not u sed to interpret th is result as normal/abnormal . NRBC x10^3 (test code <0.01 See_Comment [Auto mated = 4246861972) message] The s ystem which generated this result transmitted reference range : 10*3/?L. The reference range was not used to interpret this result as normal/abnormal . GRAN MAT (NEUT) % 64.3 % (test code = 770-8) IMM GRAN % (test code 0.30 % = 7796311579) LYMPH % (test code = 22.6 % 736-9) MONO % (test code = 8.8 % 5905-5) EOS % (test code = 3.0 % 713-8) BASO % (test code = 1.0 % 706-2) GRAN MAT x10^3(ANC) 4.02 10*3/uL 1.99-6.95 (test code = 9370617567) IMM GRAN x10^3 (test <0.03 0-0.06 code = 2200891672) LYMPH x10^3 (test code 1.41 10*3/uL 1.09-3.23 = 731-0) MONO x10^3 (test code 0.55 10*3/uL 0.36-1.02 = 742-7) EOS x10^3 (test code = 0.19 10*3/uL 0.06-0.53 711-2) BASO x10^3 (test code 0.06 10*3/uL 0.01-0.09 = 704-7) Lab Interpretation Abnormal (test code = 88195-2) [facility] WITH [id number] 15:41:00 Test Item Value Reference Range Interpretation Comments WBC (test code = See_Comment [Automated 4990-2) message] The sy stem which generated this result transmitted reference range : 4.20 - 10.70 10*3/?L. The reference range was not used to interpret this result as normal/abnormal . RBC (test code = See_Comment [Automated 509-8) message] The sy stem which generated this [...] RDW-SD (test code = 51.1 fL 38.5-51.6 96188-3) RDW-CV (test code = 13.9 % 12.1-15.4 788-0) PLT (test code = See_Comment [Automated 627-3) message] The sy stem which generated this result transmitted reference range : 150 - 328 10*3/ ?L. The reference r sarahy was not used to interpret this result as normal/abnormal . MPV (test code = 10.3 fL 9.8-13 79164-1) NRBC/100 WBC (test See_Comment [Automat ed code = 3246318862) message] The system which generated this result transmitted reference range : 0.0 - 10.0 /100 WBCs. The refer ence range was not u sed to interpret th is result as normal/abnormal . NRBC x10^3 (test code <0.01 See_Comment [Auto mated = 3221237222) message] The s ystem which generated this result transmitted reference range : 10*3/?L. The reference range was not used to interpret this result as normal/abnormal . GRAN MAT (NEUT) % 64.3 % (test code = 770-8) IMM GRAN % (test code 0.30 % = 9073803139) LYMPH % (test code = 22.6 % 736-9) MONO % (test code = 8.8 % 5905-5) EOS % (test code = 3.0 % 713-8) BASO % (test code = 1.0 % 706-2) GRAN MAT x10^3(ANC) 4.02 10*3/uL 1.99-6.95 (test code = 7857423798) IMM GRAN x10^3 (test <0.03 0-0.06 code = 6069201607) LYMPH x10^3 (test code 1.41 10*3/uL 1.09-3.23 = 731-0) MONO x10^3 (test code 0.55 10*3/uL 0.36-1.02 = 742-7) EOS x10^3 (test code = 0.19 10*3/uL 0.06-0.53 711-2) BASO x10^3 (test code 0.06 10*3/uL 0.01-0.09 = 704-7) Lab Interpretation Abnormal (test code = 10678-2) [facility] WITH [id number] 15:41:00 Test Item Value Reference Range Interpretation [...] RDW-SD (test code = 51.1 fL 38.5-51.6 57498-7) RDW-CV (test code = 13.9 % 12.1-15.4 788-0) PLT (test code = See_Comment [Automated 777-3) message] The sy stem which generated this result transmitted reference range : 150 - 328 10*3/ ?L. The reference r sarahy was not used to interpret this result as normal/abnormal . MPV (test code = 10.3 fL 9.8-13 47787-3) NRBC/100 WBC (test See_Comment [Automat ed code = 9102177816) message] The system which generated this result transmitted reference range : 0.0 - 10.0 /100 WBCs. The refer ence range was not u sed to interpret th is result as normal/abnormal . NRBC x10^3 (test code <0.01 See_Comment [Auto mated = 2473807287) message] The s ystem which generated this result transmitted reference range : 10*3/?L. The reference range was not used to interpret this result as normal/abnormal . GRAN MAT (NEUT) % 64.3 % (test code = 770-8) IMM GRAN % (test code 0.30 % = 4480679610) LYMPH % (test code = 22.6 % 736-9) MONO % (test code = 8.8 % 5905-5) EOS % (test code = 3.0 % 713-8) BASO % (test code = 1.0 % 706-2) GRAN MAT x10^3(ANC) 4.02 10*3/uL 1.99-6.95 (test code = 7808287094) IMM GRAN x10^3 (test <0.03 0-0.06 code = 8923662401) LYMPH x10^3 (test code 1.41 10*3/uL 1.09-3.23 = 731-0) MONO x10^3 (test code 0.55 10*3/uL 0.36-1.02 = 742-7) EOS x10^3 (test code = 0.19 10*3/uL 0.06-0.53 711-2) BASO x10^3 (test code 0.06 10*3/uL 0.01-0.09 = 704-7) Lab Interpretation Abnormal (test code = 23811-1) [facility] WITH [id number] 15:41:00 Test Item Value Reference Range Interpretation Comments WBC (test code = See_Comment [Automated 4190-2) message] The sy stem which generated this [...] RDW-SD (test code = 51.1 fL 38.5-51.6 45146-2) RDW-CV (test code = 13.9 % 12.1-15.4 788-0) PLT (test code = See_Comment [Automated 777-3) message] The sy stem which generated this result transmitted reference range : 150 - 328 10*3/ ?L. The reference r sarahy was not used to interpret this result as normal/abnormal . MPV (test code = 10.3 fL 9.8-13 39706-1) NRBC/100 WBC (test See_Comment [Automat ed code = 5068078128) message] The system which generated this result transmitted reference range : 0.0 - 10.0 /100 WBCs. The refer ence range was not u sed to interpret th is result as normal/abnormal . NRBC x10^3 (test code <0.01 See_Comment [Auto mated = 0221693948) message] The s ystem which generated this result transmitted reference range : 10*3/?L. The reference range was not used to interpret this result as normal/abnormal . GRAN MAT (NEUT) % 64.3 % (test code = 770-8) IMM GRAN % (test code 0.30 % = 0018415528) LYMPH % (test code = 22.6 % 736-9) MONO % (test code = 8.8 % 5905-5) EOS % (test code = 3.0 % 713-8) BASO % (test code = 1.0 % 706-2) GRAN MAT x10^3(ANC) 4.02 10*3/uL 1.99-6.95 (test code = 3407931578) IMM GRAN x10^3 (test <0.03 0-0.06 code = 7629732330) LYMPH x10^3 (test code 1.41 10*3/uL 1.09-3.23 = 731-0) MONO x10^3 (test code 0.55 10*3/uL 0.36-1.02 = 742-7) EOS x10^3 (test code = 0.19 10*3/uL 0.06-0.53 711-2) BASO x10^3 (test code 0.06 10*3/uL 0.01-0.09 = 704-7) Lab Interpretation Abnormal (test code = 51618-1) [facility] WITH [id number] 15:41:00 Test Item Value Reference Range Interpretation [...] RDW-SD (test code = 51.1 fL 38.5-51.6 13125-8) RDW-CV (test code = 13.9 % 12.1-15.4 788-0) PLT (test code = See_Comment [Automated 777-3) message] The sy stem which generated this result transmitted reference range : 150 - 328 10*3/ ?L. The reference r sarahy was not used to interpret this result as normal/abnormal . MPV (test code = 10.3 fL 9.8-13 49076-5) NRBC/100 WBC (test See_Comment [Automat ed code = 6516625492) message] The system which generated this result transmitted reference range : 0.0 - 10.0 /100 WBCs. The refer ence range was not u sed to interpret th is result as normal/abnormal . NRBC x10^3 (test code <0.01 See_Comment [Auto mated = 2067857781) message] The s ystem which generated this result transmitted reference range : 10*3/?L. The reference range was not used to interpret this result as normal/abnormal . GRAN MAT (NEUT) % 64.3 % (test code = 770-8) IMM GRAN % (test code 0.30 % = 4882171946) LYMPH % (test code = 22.6 % 736-9) MONO % (test code = 8.8 % 5905-5) EOS % (test code = 3.0 % 713-8) BASO % (test code = 1.0 % 706-2) GRAN MAT x10^3(ANC) 4.02 10*3/uL 1.99-6.95 (test code = 2926949403) IMM GRAN x10^3 (test <0.03 0-0.06 code = 5490947784) LYMPH x10^3 (test code 1.41 10*3/uL 1.09-3.23 = 731-0) MONO x10^3 (test code 0.55 10*3/uL 0.36-1.02 = 742-7) EOS x10^3 (test code = 0.19 10*3/uL 0.06-0.53 711-2) BASO x10^3 (test code 0.06 10*3/uL 0.01-0.09 = 704-7) Lab Interpretation Abnormal (test code = 96262-7) [facility] WITH [id number] 15:41:00 Test Item Value Reference Range Interpretation Comments WBC (test code = See_Comment [Automated 2390-2) message] The sy stem which generated this [...] RDW-SD (test code = 51.1 fL 38.5-51.6 40108-7) RDW-CV (test code = 13.9 % 12.1-15.4 788-0) PLT (test code = See_Comment [Automated 777-3) message] The sy stem which generated this result transmitted reference range : 150 - 328 10*3/ ?L. The reference r sarahy was not used to interpret this result as normal/abnormal . MPV (test code = 10.3 fL 9.8-13 46461-2) NRBC/100 WBC (test See_Comment [Automat ed code = 2942466038) message] The system which generated this result transmitted reference range : 0.0 - 10.0 /100 WBCs. The refer ence range was not u sed to interpret th is result as normal/abnormal . NRBC x10^3 (test code <0.01 See_Comment [Auto mated = 0253219725) message] The s ystem which generated this result transmitted reference range : 10*3/?L. The reference range was not used to interpret this result as normal/abnormal . GRAN MAT (NEUT) % 64.3 % (test code = 770-8) IMM GRAN % (test code 0.30 % = 6559760731) LYMPH % (test code = 22.6 % 736-9) MONO % (test code = 8.8 % 5905-5) EOS % (test code = 3.0 % 713-8) BASO % (test code = 1.0 % 706-2) GRAN MAT x10^3(ANC) 4.02 10*3/uL 1.99-6.95 (test code = 4460363721) IMM GRAN x10^3 (test <0.03 0-0.06 code = 4715031483) LYMPH x10^3 (test code 1.41 10*3/uL 1.09-3.23 = 731-0) MONO x10^3 (test code 0.55 10*3/uL 0.36-1.02 = 742-7) EOS x10^3 (test code = 0.19 10*3/uL 0.06-0.53 711-2) BASO x10^3 (test code 0.06 10*3/uL 0.01-0.09 = 704-7) Lab Interpretation Abnormal (test code = 50876-7) [facility] WITH [id number] 15:41:00 Test Item Value Reference Range Interpretation [...] RDW-SD (test code = 51.1 fL 38.5-51.6 32680-3) RDW-CV (test code = 13.9 % 12.1-15.4 788-0) PLT (test code = See_Comment [Automated 777-3) message] The sy stem which generated this result transmitted reference range : 150 - 328 10*3/ ?L. The reference r sarahy was not used to interpret this result as normal/abnormal . MPV (test code = 10.3 fL 9.8-13 00628-9) NRBC/100 WBC (test See_Comment [Automat ed code = 3726774170) message] The system which generated this result transmitted reference range : 0.0 - 10.0 /100 WBCs. The refer ence range was not u sed to interpret th is result as normal/abnormal . NRBC x10^3 (test code <0.01 See_Comment [Auto mated = 8977564663) message] The s ystem which generated this result transmitted reference range : 10*3/?L. The reference range was not used to interpret this result as normal/abnormal . GRAN MAT (NEUT) % 64.3 % (test code = 770-8) IMM GRAN % (test code 0.30 % = 6179964811) LYMPH % (test code = 22.6 % 736-9) MONO % (test code = 8.8 % 5905-5) EOS % (test code = 3.0 % 713-8) BASO % (test code = 1.0 % 706-2) GRAN MAT x10^3(ANC) 4.02 10*3/uL 1.99-6.95 (test code = 0690834435) IMM GRAN x10^3 (test <0.03 0-0.06 code = 7439310609) LYMPH x10^3 (test code 1.41 10*3/uL 1.09-3.23 = 731-0) MONO x10^3 (test code 0.55 10*3/uL 0.36-1.02 = 742-7) EOS x10^3 (test code = 0.19 10*3/uL 0.06-0.53 711-2) BASO x10^3 (test code 0.06 10*3/uL 0.01-0.09 = 704-7) Lab Interpretation Abnormal (test code = 55470-3) [facility] WITH [id number] 15:41:00 Test Item Value Reference Range Interpretation Comments WBC (test code = See_Comment [Automated 4890-2) message] The sy stem which generated this result transmitted reference range : 4.20 - 10.70 10*3/?L. The reference range was not used to interpret this result as normal/abnormal . RBC (test code = See_Comment [Automated 709-8) message] The sy stem which generated this [...] RDW-SD (test code = 51.1 fL 38.5-51.6 97512-5) RDW-CV (test code = 13.9 % 12.1-15.4 788-0) PLT (test code = See_Comment [Automated 777-3) message] The sy stem which generated this result transmitted reference range : 150 - 328 10*3/ ?L. The reference r sarahy was not used to interpret this result as normal/abnormal . MPV (test code = 10.3 fL 9.8-13 65110-4) NRBC/100 WBC (test See_Comment [Automat ed code = 1632439880) message] The system which generated this result transmitted reference range : 0.0 - 10.0 /100 WBCs. The refer ence range was not u sed to interpret th is result as normal/abnormal . NRBC x10^3 (test code <0.01 See_Comment [Auto mated = 4297903165) message] The s ystem which generated this result transmitted reference range : 10*3/?L. The reference range was not used to interpret this result as normal/abnormal . GRAN MAT (NEUT) % 64.3 % (test code = 770-8) IMM GRAN % (test code 0.30 % = 2728170936) LYMPH % (test code = 22.6 % 736-9) MONO % (test code = 8.8 % 5905-5) EOS % (test code = 3.0 % 713-8) BASO % (test code = 1.0 % 706-2) GRAN MAT x10^3(ANC) 4.02 10*3/uL 1.99-6.95 (test code = 5516665247) IMM GRAN x10^3 (test <0.03 0-0.06 code = 4318126205) LYMPH x10^3 (test code 1.41 10*3/uL 1.09-3.23 = 731-0) MONO x10^3 (test code 0.55 10*3/uL 0.36-1.02 = 742-7) EOS x10^3 (test code = 0.19 10*3/uL 0.06-0.53 711-2) BASO x10^3 (test code 0.06 10*3/uL 0.01-0.09 = 704-7) Lab Interpretation Abnormal (test code = 83496-0) [facility] WITH [id number] 15:41:00 Test Item Value Reference Range Interpretation [...] RDW-SD (test code = 51.1 fL 38.5-51.6 34571-6) RDW-CV (test code = 13.9 % 12.1-15.4 788-0) PLT (test code = See_Comment [Automated 777-3) message] The sy stem which generated this result transmitted reference range : 150 - 328 10*3/ ?L. The reference r sarahy was not used to interpret this result as normal/abnormal . MPV (test code = 10.3 fL 9.8-13 29159-6) NRBC/100 WBC (test See_Comment [Automat ed code = 7865768213) message] The system which generated this result transmitted reference range : 0.0 - 10.0 /100 WBCs. The refer ence range was not u sed to interpret th is result as normal/abnormal . NRBC x10^3 (test code <0.01 See_Comment [Auto mated = 6636310967) message] The s ystem which generated this result transmitted reference range : 10*3/?L. The reference range was not used to interpret this result as normal/abnormal . GRAN MAT (NEUT) % 64.3 % (test code = 770-8) IMM GRAN % (test code 0.30 % = 4199127196) LYMPH % (test code = 22.6 % 736-9) MONO % (test code = 8.8 % 5905-5) EOS % (test code = 3.0 % 713-8) BASO % (test code = 1.0 % 706-2) GRAN MAT x10^3(ANC) 4.02 10*3/uL 1.99-6.95 (test code = 8916172423) IMM GRAN x10^3 (test <0.03 0-0.06 code = 0776926733) LYMPH x10^3 (test code 1.41 10*3/uL 1.09-3.23 = 731-0) MONO x10^3 (test code 0.55 10*3/uL 0.36-1.02 = 742-7) EOS x10^3 (test code = 0.19 10*3/uL 0.06-0.53 711-2) BASO x10^3 (test code 0.06 10*3/uL 0.01-0.09 = 704-7) Lab Interpretation Abnormal (test code = 72797-3) [facility] WITH [id number] 15:41:00 Test Item Value Reference Range Interpretation Comments WBC (test code = See_Comment [Automated 0690-2) message] The sy stem which generated this [...] RDW-SD (test code = 51.1 fL 38.5-51.6 17346-7) RDW-CV (test code = 13.9 % 12.1-15.4 788-0) PLT (test code = See_Comment [Automated 777-3) message] The sy stem which generated this result transmitted reference range : 150 - 328 10*3/ ?L. The reference r sarahy was not used to interpret this result as normal/abnormal . MPV (test code = 10.3 fL 9.8-13 86394-2) NRBC/100 WBC (test See_Comment [Automat ed code = 5879879390) message] The system which generated this result transmitted reference range : 0.0 - 10.0 /100 WBCs. The refer ence range was not u sed to interpret th is result as normal/abnormal . NRBC x10^3 (test code <0.01 See_Comment [Auto mated = 0358823585) message] The s ystem which generated this result transmitted reference range : 10*3/?L. The reference range was not used to interpret this result as normal/abnormal . GRAN MAT (NEUT) % 64.3 % (test code = 770-8) IMM GRAN % (test code 0.30 % = 1288624924) LYMPH % (test code = 22.6 % 736-9) MONO % (test code = 8.8 % 5905-5) EOS % (test code = 3.0 % 713-8) BASO % (test code = 1.0 % 706-2) GRAN MAT x10^3(ANC) 4.02 10*3/uL 1.99-6.95 (test code = 3271642076) IMM GRAN x10^3 (test <0.03 0-0.06 code = 5516239119) LYMPH x10^3 (test code 1.41 10*3/uL 1.09-3.23 = 731-0) MONO x10^3 (test code 0.55 10*3/uL 0.36-1.02 = 742-7) EOS x10^3 (test code = 0.19 10*3/uL 0.06-0.53 711-2) BASO x10^3 (test code 0.06 10*3/uL 0.01-0.09 = 704-7) Lab Interpretation Abnormal (test code = 46083-0) [facility] WITH [id number] 15:41:00 Test Item Value Reference Range Interpretation Comments WBC (test code = See_Comment [Automated 6490-2) message] The sy stem which generated this result transmitted reference range : 4.20 - 10.70 10*3/?L. The reference range was not used to interpret this result as normal/abnormal . RBC (test code = See_Comment [Automated 989-8) message] The sy stem which generated this [...] RDW-SD (test code = 51.1 fL 38.5-51.6 62502-9) RDW-CV (test code = 13.9 % 12.1-15.4 788-0) PLT (test code = See_Comment [Automated 777-3) message] The sy stem which generated this result transmitted reference range : 150 - 328 10*3/ ?L. The reference r sarahy was not used to interpret this result as normal/abnormal . MPV (test code = 10.3 fL 9.8-13 57043-5) NRBC/100 WBC (test See_Comment [Automat ed code = 8358247960) message] The system which generated this result transmitted reference range : 0.0 - 10.0 /100 WBCs. The refer ence range was not u sed to interpret th is result as normal/abnormal . NRBC x10^3 (test code <0.01 See_Comment [Auto mated = 8106171308) message] The s ystem which generated this result transmitted reference range : 10*3/?L. The reference range was not used to interpret this result as normal/abnormal . GRAN MAT (NEUT) % 64.3 % (test code = 770-8) IMM GRAN % (test code 0.30 % = 2728239097) LYMPH % (test code = 22.6 % 736-9) MONO % (test code = 8.8 % 5905-5) EOS % (test code = 3.0 % 713-8) BASO % (test code = 1.0 % 706-2) GRAN MAT x10^3(ANC) 4.02 10*3/uL 1.99-6.95 (test code = 9647168862) IMM GRAN x10^3 (test <0.03 0-0.06 code = 5159991245) LYMPH x10^3 (test code 1.41 10*3/uL 1.09-3.23 = 731-0) MONO x10^3 (test code 0.55 10*3/uL 0.36-1.02 = 742-7) EOS x10^3 (test code = 0.19 10*3/uL 0.06-0.53 711-2) BASO x10^3 (test code 0.06 10*3/uL 0.01-0.09 = 704-7) Lab Interpretation Abnormal (test code = 80939-4) [facility] WITH [id number] 15:41:00 Test Item Value Reference Range Interpretation Comments WBC (test code = See_Comment [Automated 4590-2) message] The sy stem which generated this [...] RDW-SD (test code = 51.1 fL 38.5-51.6 68187-8) RDW-CV (test code = 13.9 % 12.1-15.4 788-0) PLT (test code = See_Comment [Automated 777-3) message] The sy stem which generated this result transmitted reference range : 150 - 328 10*3/ ?L. The reference r sarahy was not used to interpret this result as normal/abnormal . MPV (test code = 10.3 fL 9.8-13 46266-2) NRBC/100 WBC (test See_Comment [Automat ed code = 9085051806) message] The system which generated this result transmitted reference range : 0.0 - 10.0 /100 WBCs. The refer ence range was not u sed to interpret th is result as normal/abnormal . NRBC x10^3 (test code <0.01 See_Comment [Auto mated = 3717847302) message] The s ystem which generated this result transmitted reference range : 10*3/?L. The reference range was not used to interpret this result as normal/abnormal . GRAN MAT (NEUT) % 64.3 % (test code = 770-8) IMM GRAN % (test code 0.30 % = 4315989388) LYMPH % (test code = 22.6 % 736-9) MONO % (test code = 8.8 % 5905-5) EOS % (test code = 3.0 % 713-8) BASO % (test code = 1.0 % 706-2) GRAN MAT x10^3(ANC) 4.02 10*3/uL 1.99-6.95 (test code = 5690061670) IMM GRAN x10^3 (test <0.03 0-0.06 code = 9116929225) LYMPH x10^3 (test code 1.41 10*3/uL 1.09-3.23 = 731-0) MONO x10^3 (test code 0.55 10*3/uL 0.36-1.02 = 742-7) EOS x10^3 (test code = 0.19 10*3/uL 0.06-0.53 711-2) BASO x10^3 (test code 0.06 10*3/uL 0.01-0.09 = 704-7) Lab Interpretation Abnormal (test code = 96677-0) [id number]TOTAL CHOLESTEROL, TRIGLYCERIDES, HDL)2019-02-20 17:10:00 Test Item Value Reference Range Interpretation Comments CHOL (test code = 140 mg/dL 120-200 5487856401) HDL (test code = 46 mg/dL >40 2150069378) HDLC RATIO (test code = See_Comment [Au tomated message] 3730298283) The system [employer] generated this result transmit claribel reference range : <=5.0. The refe rence range was not u sed to interpret th is result as normal/abnormal . TRIG (test code = 52 mg/dL 30-170 9033112320) LDL CHOL (test code = 84 mg/dL See_Comment [Auto mated message] 99690-3) The system [employer] generated this result transmit claribel reference range : <=160. The refe rence range was not u sed to interpret th is result as normal/abnormal . VLDL (test code = 10 mg/dL 5-60 7062655593) Lab Interpretation (test Normal code = 52295-2) [facility] ([id number])(TOTAL CHOLESTEROL, TRIGLYCERIDES, HDL)2019-02-20 17:10:00 Test Item Value Reference Range Interpretation Comments CHOL (test code = 140 mg/dL 120-200 4933464748) HDL (test code = 46 mg/dL >40 0640776209) HDLC RATIO (test code = See_Comment [Au tomated message] 6687869358) The system [employer] generated this result transmit claribel reference range : <=5.0. The refe rence range was not u sed to interpret th is result as normal/abnormal . TRIG (test code = 52 mg/dL 30-170 7083342680) LDL CHOL (test code = 84 mg/dL See_Comment [Auto mated message] 33129-9) The system [employer] generated this result transmit claribel reference range : <=160. The refe rence range was not u sed to interpret th is result as normal/abnormal . VLDL (test code = 10 mg/dL 5-60 4241549939) Lab Interpretation (test Normal code = 80114-6) [id number]TOTAL CHOLESTEROL, TRIGLYCERIDES, HDL)2019-02-20 17:10:00 Test Item Value Reference Range Interpretation Comments CHOL (test code = 140 mg/dL 120-200 5568663380) HDL (test code = 46 mg/dL >40 3687153515) HDLC RATIO (test code = See_Comment [Au tomated message] 7688592288) The system [employer] generated this result transmit claribel reference range : <=5.0. The refe rence range was not u sed to interpret th is result as normal/abnormal . TRIG (test code = 52 mg/dL 30-170 8940460432) LDL CHOL (test code = 84 mg/dL See_Comment [Auto mated message] 03740-1) The system [employer] generated this result transmit claribel reference range : <=160. The refe rence range was not u sed to interpret th is result as normal/abnormal . VLDL (test code = 10 mg/dL 5-60 9434618677) Lab Interpretation (test Normal code = 22145-0) [id number]TOTAL CHOLESTEROL, TRIGLYCERIDES, HDL)2019-02-20 17:10:00 Test Item Value Reference Range Interpretation Comments CHOL (test code = 140 mg/dL 120-200 [id number]) HDL (test code = 46 mg/dL >40 [id number]) HDLC RATIO (test code = See_Comment [Au tomated message] [id number]) The system [employer] generated this result transmit claribel reference range : <=5.0. The refe rence range was not u sed to interpret th is result as normal/abnormal . TRIG (test code = 52 mg/dL 30-170 [id number]) LDL CHOL (test code = 84 mg/dL See_Comment [Auto mated message] 46158-4) The system [employer] generated this result transmit claribel reference range : <=160. The refe rence range was not u sed to interpret th is result as normal/abnormal . VLDL (test code = 10 mg/dL 5-60 [id number]) Lab Interpretation (test Normal code = 64839-1) [id number]TOTAL CHOLESTEROL, TRIGLYCERIDES, HDL)2019-02-20 17:10:00 Test Item Value Reference Range Interpretation Comments CHOL (test code = 140 mg/dL 120-200 [id number]) HDL (test code = 46 mg/dL >40 [id number]) HDLC RATIO (test code = See_Comment [Au tomated message] [id number]) The system [employer] generated this result transmit claribel reference range : <=5.0. The refe rence range was not u sed to interpret th is result as normal/abnormal . TRIG (test code = 52 mg/dL 30-170 [id number]) LDL CHOL (test code = 84 mg/dL See_Comment [Auto mated message] 28189-7) The system [employer] generated this result transmit claribel reference range : <=160. The refe rence range was not u sed to interpret th is result as normal/abnormal . VLDL (test code = 10 mg/dL 5-60 [id number]) Lab Interpretation (test Normal code = 62626-2) [facility]-02-20 16:35:00 Test Item [...] Indicated Lab Interpretation Normal (test code = 77705-0) [facility]2019-02-20 16:35:00 Test Item [...] Indicated Lab Interpretation Normal (test code = 11162-5) [facility]2019-02-20 16:35:00 Test Item [...] Indicated Lab Interpretation Normal (test code = 43337-0) [facility]2019-02-20 16:35:00 Test Item [...] Indicated Lab Interpretation Normal (test code = 52413-9) [facility]2019-02-20 16:35:00 Test Item [...] Indicated Lab Interpretation Normal (test code = 69108-7) [facility]"
--- NOTE | 2021-07-01 08:08 | RAD REPORT ---
EXAM DESCRIPTION: CT - CTHCSPWOC - 07/01/2021 7:50 am CLINICAL HISTORY: fall COMPARISON: Head Brain Wo Cont dated 12/09/2020 TECHNIQUE: Axial 5 mm thick images of the head were obtained. Axial 2 mm thick images of the cervic al spine were obtained with sagittal and coronal reconstruction images generated and reviewed. All CT scans are performed using dose optimization technique as appropriate and may include automated exposure control or mA/KV adjustment according to patient size. FINDINGS: No intracranial hemorrhage, mass, edema or acute intracranial finding. No acute cortical b ased infarction. No cortical edema or sulcal effacement. Moderately large area of encephalomalacia is present in the lateral right frontal lobe from prior CVA. Mild to moderate underlying atrophy presen t with ventricles in proportion. There is moderate for age chronic ischemic change throughout the cer ebral white matter extending into the thalamus and basal ganglia tissues. Intracranial findings match the comparison. No extra-axial fluid collections. Mastoid air cells and paranasal sinuses are clear. No globe or orbit abnormality seen. Cervical bodies are normal in height. No significant alignment abnormality. 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 All disc spaces show loss in height. This is most advanced at C5-6 and C6-7. Uncovertebral j oint and facet joint hypertrophy present at multiple levels. Moderate severity bilateral foraminal st enosis at C3-4 and mild to moderate bilateral at C4-5. Moderate C5-6 and C6-7 foraminal stenosis pres ent. No fracture or acute bony abnormality. Central canal detail is inherently limited. No paraspinal mass or hematoma. IMPRESSION: Negative CT head examination for acute or significant finding. 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 cervical spine examination for acute finding. Prominent degenerative change present as d etailed.
--- NOTE | 2021-07-01 09:03 | RAD REPORT ---
EXAM DESCRIPTION: RAD - Pelvis - 07/01/2021 8:09 am CLINICAL HISTORY: fall COMPARISON: Abdomen Pelvis Wo Contrast dated 05/25/2021 TECHNIQUE: AP imaging of the pelvis was obtained. FINDINGS: Prominent lower lumbar degenerative changes are present but only partially imaged. Moderat e severity bilateral SI joint degenerative changes are present. Sacral ala are grossly intact. The ov erlying bowel content is limiting. Pubic symphysis degenerative sclerotic change and spurring also no claribel. Penile implant is in place. Multiple phleboliths line the pelvic floor. A larger proximally 20 m illimeter calcification is seen along the pelvic floor. This is a known bladder calculus. Bilateral hip joint degenerative changes are present. Femoral heads maintain smooth rounded contour. Hardware is in place from prior left proximal femur fracture repair. No acute hip joint or proximal f emur finding. Bones are osteopenic. IMPRESSION: Degenerative, osteopenic and postsurgical changes to the pelvis and hip joints as detail ed. No acute bone finding identified. Bladder stone is present as previously detailed.
--- NOTE | 2021-07-01 09:04 | RAD REPORT ---
EXAM DESCRIPTION: RAD - Femur Left - 07/01/2021 8:10 am CLINICAL HISTORY: fall, left hip pain COMPARISON: Left femur 12/07/2020 FINDINGS: Surgical hardware is in place from prior fracture repair. No change in positioning of the hardware. Osteopenic and degenerative changes are present. No acute fracture changes are identifiable . 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 No joint effusion s seen. Arterial calcifications are present. No suspicious soft tissue finding. IMPRESSION: Osteopenic, degenerative and postsurgical changes to the femur, hip joint and knee joint as detailed. No fracture or acute finding identifiable.
--- NOTE | 2021-07-01 09:06 | ER ---
Nurse's Notes [facility] Name: Elver Tee Age: 80 yrs Sex: Male : 1940 Arrival Date: 07/01/2021 Time: 07:24 Bed 25 Private MD: Diagnosis: Fall on same level, unspecified Presentation: 07/01 07:24 Chief complaint: Patient states: Mechanical fall in bedroom just [employer]. Hit back of head ll1 on chair, no LOC. Denies pain now. On Xarelto. Coronavirus screen: Vaccine status: Patient reports receiving the 2nd dose of the covid vaccine. Client denies travel out of the [place] in the last 14 days. At this time, the client does not indicate any symptoms associated with coronavirus-19. Ebola Screen: Patient denies travel to an Ebola-affected area in the 21 days before illness onset. Initial Sepsis Screen: Does the patient meet any 2 criteria? No. Patient's initial sepsis screen is negative. Does the patient have a suspected source of infection? No. Patient's initial sepsis screen is negative. Risk Assessment: Do you want to hurt yourself or someone else? Patient reports no desire to harm self or others. Onset of symptoms was July 01, 2021. 07:24 Method Of Arrival: EMS: [facility] 07:24 Acuity: CUAUHTEMOC 4 ll1 07:26 Chief complaint: EMS states: Found patient with his head laying against a chair. VSS. ll1 Blood sugar 75. 20 G R FA. Speech was slightly slurred upon EMS arrival, resolved after giving him some water to drink. Triage Assessment: 07:30 General: Appears in no apparent distress. comfortable, Behavior is calm, cooperative, bp appropriate for age. Pain: Denies pain. EENT: No deficits noted. Neuro: Level of Consciousness is awake, alert, obeys commands, Oriented to Appropriate for age. Cardiovascular: No deficits noted. Respiratory: No deficits noted. GI: No signs and/or symptoms were reported involving the gastrointestinal system. : No signs and/or symptoms were reported regarding the genitourinary system. Derm: No deficits noted. Musculoskeletal: No deficits noted. Historical: - Allergies: 07:25 Bacitracin Zinc; ll1 07:25 Neomycin Sulfate; ll1 07:25 Polymyxin B Sulfate; ll1 - PMHx: 07:25 Bipolar disorder; Hypertensive disorder; Paranoid Schizophrenia; ll1 - Immunization history:: Client reports receiving the 2nd dose of the Covid vaccine. - Social history:: Smoking status: Patient denies any tobacco usage or history of. Screenin:30 Abuse screen: Denies threats or abuse. Denies injuries from another. Nutritional bp screening: No deficits noted. Tuberculosis screening: No symptoms or risk factors identified. Fall Risk None identified. Assessment: 07:30 General: SEE TRIAGE NOTE. bp 09:14 Reassessment: PT TBDC HOME, DX WITH NON-TRAUMATIC FALL. FAMILY TRANSPORT PENDING. bp 10:21 Reassessment: FAMILY AT B/S. PT [facility] VIA W/C. bp Vital Signs: 07:24 Weight 81.65 kg; Height 6 ft. 0 in. (182.88 cm); Pain 0/10; ll1 07:25 BP 124 / 77; Pulse 78; Resp 16; Temp 97.6; Pulse Ox 93% on R/A; bp 09:00 BP 133 / 67; Pulse 47; Resp 16; Pulse Ox 98% ; bp 07:24 Body Mass Index 24.41 (81.65 kg, 182.88 cm) ll1 ED Course: 07:24 Patient arrived in ED. ll1 07:25 Kobe Blas PA is PHCP. cp 07:25 Raza Gore MD is Attending Physician. cp 07:25 Triage completed. ll1 07:26 Arm band placed on Patient placed in an exam room, on a stretcher. ll1 07:27 Attending Physician role handed off by Raza Gore MD jaelyn 07:27 Kobe Friend MD is Attending Physician. jaelyn 07:30 Raza Gore MD is Attending Physician. cp 07:30 Patient has correct armband on for positive identification. Bed in low position. Call bp light in reach. Side rails up X2. 07:30 Maintain EMS IV. Dressing intact. Good blood return noted. Site clean \T\ dry. Gauge \T\ bp site: 20 G R FA. 07:38 Jean-Paul Horne, RN is Primary Nurse. bp 07:50 CT Head C Spine In Process Unspecified. EDMS 08:09 XRAY Pelvis In Process Unspecified. EDMS 08:09 XRAY Femur LEFT In Process Unspecified. EDMS 09:14 No provider procedures requiring assistance completed. IV discontinued, intact, bp bleeding controlled, No redness/swelling at site. Pressure dressing applied. Administered Medications: No medications were administered Outcome: 09:05 Discharge ordered by . cp 09:24 Discharged to home via wheelchair. bp 09:24 Condition: stable 09:24 Discharge instructions given to patient, Instructed on discharge instructions, follow up and referral plans. Demonstrated understanding of instructions, follow-up care. 10:21 Patient left the ED. bp Signatures: Dispatcher [employer] EDMS Kobe Friend MD MD cha Page, Corey, PA PA Jean-Paul Mccall, RN RN bp Joni Terrazas 4 Robert Saeed RN RN ll1 Corrections: (The following items were deleted from the chart) 07: 07:24 Chief complaint: Patient states: Mechanical fall in bedroom just [employer]. Denies ll1 pain/injury. No LOC. ll1 07:29 07:26 Chief complaint: EMS states: VSS. Blood sugar 75. 20 G R FA. Speech was slightly ll1 slurred upon EMS arrival, resolved after giving him some water to drink. ll1 07:45 07:25 BP 124 / 77; Pulse 78bpm; Resp 16bpm; Pulse Ox 93% RA; Temp 67.6F; dh4 bp 09:24 09:14 Reassessment: PT D/C HOME, DX WITH NON-TRAUMATIC FALL bp bp
--- NOTE | 2021-07-01 09:06 | EDPHYS ---
Physician Documentation [facility] Name: Elver Tee Age: 80 yrs Sex: Male : 1940 Arrival Date: 07/01/2021 Time: 07:24 Bed 25 Private MD: ED Physician Raza Gore HPI: 07/01 07:35 This 80 yrs old Male presents to ER via EMS with complaints of Fall Injury. cp 07:35 Details of fall: The patient fell from an upright position, while attempting to sit on cp edge of bed. Onset: The symptoms/episode began/occurred this morning. Associated injuries: The patient sustained injury to the head, struck back of head against chair. Patient denies LOC. Patient reports taking Xarelto. Historical: - Allergies: 07:25 Bacitracin Zinc; ll1 07:25 Neomycin Sulfate; ll1 07:25 Polymyxin B Sulfate; ll1 - PMHx: 07:25 Bipolar disorder; Hypertensive disorder; Paranoid Schizophrenia; ll1 - Immunization history:: Client reports receiving the 2nd dose of the Covid vaccine. - Social history:: Smoking status: Patient denies any tobacco usage or history of. ROS: 07:40 Constitutional: Negative for body aches, chills, fever, poor PO intake. cp 07:40 Cardiovascular: Negative for chest pain. 07:40 Respiratory: Negative for cough, shortness of breath, wheezing. 07:40 Abdomen/GI: Negative for abdominal pain, nausea, vomiting, and diarrhea. 07:40 Back: Negative for pain at rest, pain with movement. 07:40 Neuro: Negative for altered mental status, loss of consciousness, syncope, weakness. 07:40 All other systems are negative. Exam: 07:45 Constitutional: The patient appears in no acute distress, alert, awake, cp non-diaphoretic, non-toxic, well developed, well nourished. 07:45 Head/Face: Normocephalic, atraumatic. cp 07:45 Eyes: Pupils: equal, round, and reactive to light and accomodation, Conjunctiva: normal, no exudate, no injection, Sclera: no appreciated abnormality, Lids and lashes: appear normal, bilaterally. 07:45 ENT: External ear(s): are unremarkable, Nose: is normal, Mouth: Lips: dry, Oral mucosa: moist, Posterior pharynx: Airway: no evidence of obstruction, patent. 07:45 Neck: C-spine: vertebral tenderness, is not appreciated, crepitus, is not appreciated, ROM/movement: pain, is not appreciated, limited range of motion, is not appreciated. 07:45 Chest/axilla: Inspection: normal, Palpation: is normal, no crepitus, no tenderness. 07:45 Cardiovascular: Rate: normal. 07:45 Respiratory: the patient does not display signs of respiratory distress, Respirations: normal, no use of accessory muscles, no retractions, labored breathing, is not present, Breath sounds: are clear throughout, no decreased breath sounds, no stridor, no wheezing. 07:45 Abdomen/GI: Inspection: abdomen appears normal, Palpation: abdomen is soft and non-tender, in all quadrants. 07:45 Back: pain, is absent, ROM is normal. 07:45 Musculoskeletal/extremity: Extremities: grossly normal except: noted in the left hip: mild tenderness to palpation, There is no evidence of decreased ROM, deformity. 07:45 Neuro: Orientation: to person, place \T\ time. Mentation: is normal, Motor: moves all fours, strength is normal, Sensation: no obvious gross deficits. Vital Signs: 07:24 Weight 81.65 kg; Height 6 ft. 0 in. (182.88 cm); Pain 0/10; ll1 07:25 BP 124 / 77; Pulse 78; Resp 16; Temp 97.6; Pulse Ox 93% on R/A; bp 09:00 BP 133 / 67; Pulse 47; Resp 16; Pulse Ox 98% ; bp 07:24 Body Mass Index 24.41 (81.65 kg, 182.88 cm) ll1 MDM: 07:27 Patient medically screened. [facility] 08:00 Differential diagnosis: closed head injury, contusion, fracture, laceration, multiple cp trauma. 08:42 Data reviewed: vital signs, nurses notes, radiologic studies, CT scan, plain films. cp Test interpretation: by ED physician or midlevel provider: xrays of left femur negative for fracture and xray of pelvis negative for fracture. 07/01 07:29 Order name: CT Head C Spine; Complete Time: 08:26 cp 07/01 08:27 Interpretation: Reviewed report. 07/01 07:29 Order name: XRAY Pelvis; Complete Time: 09:21 cp 07/01 09:22 Interpretation: Report reviewed. cp 07/01 07:29 Order name: XRAY Femur LEFT; Complete Time: 09:21 cp Administered Medications: No medications were administered Disposition: 11:41 Co-signature as Attending Physician, Raza Gore MD. rn Disposition Summary: 07/01/21 09:05 Discharge Ordered Location: Home cp Problem: new cp Symptoms: have improved cp Condition: Stable cp Diagnosis - Fall on same level, unspecified cp Followup: cp - With: Private Physician - When: 1 - 2 days - Reason: Worsening of condition Discharge Instructions: - Discharge Summary Sheet cp - Fall Prevention in the Home, Adult cp Forms: - Medication Reconciliation Form cp - Thank You Letter cp - Antibiotic Education cp - Prescription Opioid Use cp Signatures: Dispatcher [employer] EDKobe Pack MD MD cha Nieto, Roman, MD MD rn Kobe Blas, PA PA Robert Izquierdo, RN RN ll1
[2021-07-01 10:26] VITALS: TEMP 97.6
[2021-07-01 10:27] VITALS: BP 133/67; O2SAT 98
== END 2021-07-01 10:21 | disposition home or self-care (01) ==
LOC: ER 07:21
DX: S09.90XA Unspecified injury of head, initial encounter (principal); V97.0XXA Occupant of aircraft injured in other specified air transport accidents, initial encounter; Y92.009 Unspecified place in unspecified non-institutional (private) residence as the place of occurrence of the external cause; I10 Essential (primary) hypertension
CPT/HCPCS: 70450; 72125; 72170; 99283

== ENCOUNTER 2021-07-22 06:29 | Day surgery (SDC) | payer OTHER, MEDICARE ==
[2021-07-17 16:06] LABS: Absolute Lymphocytes (CBC) 0.9 K/uL (0.7-4.9); Hematocrit 44.8 % (39.6-49.0); Lymphocytes % 16.3 % (15.3-44.8); MPV 8.5 fL (7.6-11.3)
[2021-07-17 16:07] LABS: Protime INR 1.34
--- NOTE | 2021-07-17 17:21 | RAD REPORT ---
EXAM DESCRIPTION: RAD - Chest Pa And Lat (2 Views) - 07/17/2021 3:45 pm CLINICAL HISTORY: pre op, pending cystoscopy COMPARISON: Portable 12/09/2020 TECHNIQUE: Frontal and lateral views of the chest were obtained. FINDINGS: The lungs are clear. Interstitial pattern matches comparison. No failure or volume overlo ad. Heart size is normal and central vasculature is within normal limits. No pleural effusion or pne umothorax seen. No acute bony finding noted. No aortic abnormality. No free air under the diaphrag m. Colonic interposition between the liver and right hemidiaphragm noted. IMPRESSION: No acute cardiopulmonary process.
[2021-07-22] MEDS ORDERED: NA CHLORIDE 0.9% 50 ML ONE (06:49)
[2021-07-22] MEDS ORDERED: CEFAZOLIN SODIUM 1 GM/VIAL ONE ×2 (06:49→08:05)
[2021-07-22] MEDS ORDERED: Ringers Lactate 1,000 ML IV ONE (06:49)
[2021-07-22] MEDS ORDERED: propofoL 200 MG/20 ML VIAL IV ONE (07:22)
[2021-07-22] MEDS ORDERED: FENTANYL CITR 100 MCG/2 ML ONE (07:22)
[2021-07-22] MEDS ORDERED: LIDOCAINE 1% MPF 5 ML VIAL ONE (07:22)
[2021-07-22] MEDS ORDERED: CEFAZOLIN/SWI 2gm 2 GM/20 ML SYR IVP SCH (07:30)
[2021-07-22] MEDS ORDERED: NA CHLORIDE 0.9% 100 ML IV ONE (08:09)
[2021-07-22] MEDS ORDERED: NS 0.9% VIAL 10 ML ONE (08:10)
[2021-07-22] MEDS ORDERED: EPHEDRINE SULF 50 MG/ML VIAL ONE (08:10)
[2021-07-22] MEDS: GENTAMICIN SULF 80 MG/2ML INJ ONE ×2 (08:10→08:11)
[2021-07-22] MEDS ORDERED: dexAMETHasone 10 MG/ML VIAL ONE (08:15)
[2021-07-22] MEDS ORDERED: KETOROLAC 30 MG/ML INJ ONE (08:16)
[2021-07-22] MEDS ORDERED: ONDANSETRON 4 MG/2 ML VIAL ONE (08:19)
[2021-07-22 09:36] VITALS: BP 125/60; TEMP 97.2; O2SAT 100
--- NOTE | 2021-07-22 09:47 | OP ---
Surgeon: LILIANA EDY Preoperative Diagnosis: Bladder calculus, suspected formed on the surface of a UroLift staple intrav ascularly placed. Postoperative Diagnoses: 1.Bladder calculus. 2.UroLift staple intravesically placed. Principal Procedures: 1.Cystolitholapaxy. 2.Removal of foreign body/UroLift staple. Indication For Procedure: Mr. Tee presented to the Urology Clinic with irritative urinary symptoms and gross hematuria. He underwent cystoscopic evaluation revealing the presence of a calculus within his bladder and suspected to have formed on the surface of a UroLift staple. The calculus was prese nt at the bladder neck. Procedure In Detail: The patient was consented in the preoperative holding area before being transfe rred to the operative suite where general anesthesia was induced. He was given Ancef 2 g IV antimicr obial prophylaxis and 160 mg gentamicin IV antimicrobial prophylaxis. Pneumo boots were provided for DVT prophylaxis. He was placed in the lithotomy position, padded and secured to the table appropria tely. His genitalia were prepped using Hibiclens and draped in standard fashion. The case was begun using a 22-[place] rigid cystoscope to traverse the urethra and enter the bladder with ease. The shelly dder was surveyed, and the previously observed calculus was noted at the bladder neck. I then employ ed a 365 nanometer laser fiber placed via a 5-[place] ureteral access catheter via the cystoscope to t arget the stone and fragment it. However, because the stone was at the bladder neck and I was unable to target it adequately using the rigid cystoscope, I then changed to a flexible cystoscope and leanne guadarrama continued to target and fragment the stone until it was completely removed from its position within the bladder neck. I was then able to visualize 2 components of UroLift staple present in the locati on at the base of what was the bladder calculus. I then utilized a laser fiber to disrupt the staple from its location within the mucosa and free it into the bladder. I then surveyed the area again on at least 3 different occasions, and no other residual foreign body or stone was noted. As such, I r eplaced the rigid cystoscope sheath back into his bladder using the blunt obturator, and then Hayes evacuated all stone fragments and metal fragments from the UroLift out of his bladder. Small fragmen ts that were unable to be Ellick evacuated were grasped and delivered using a rigid grasper. In the end, his bladder was free of mucosal lesions, foreign body, and stone, and I placed an 18-[place] Fole y catheter into his bladder with ease to allow decompression and healing. He was then taken out of t he lithotomy position, transferred to a stretcher, awakened from general anesthesia, and transferred to the recovery room in good condition. Complications: None. Discharge Disposition: He may follow up in the Urology Clinic within the next 1-2 days for catheter removal and voiding trial. ROCKY/NICOLE Voice ID: [id number] Report ID: [id number]
[2021-07-22] MEDS: CODEINE 30MG/APAP 300MG TAB PO PRN ×2 (09:55→09:56)
[2021-07-22] MEDS ORDERED: CODEINE 30MG/APAP 300MG TAB ONE (09:56)
== END 2021-07-22 11:05 | disposition home or self-care (01) ==
LOC: OR 06:29
PROVIDERS: ATTEND Urology
PROC: 0TCB8ZZ Extirpation of Matter from Bladder, Via Natural or Artificial Opening Endoscopic (ICD-10-PCS; principal; 2021-07-22 07:30)
DX: N21.0 Calculus in bladder (principal); E03.9 Hypothyroidism, unspecified; F20.0 Paranoid schizophrenia; Z20.822 Contact with and (suspected) exposure to COVID-19
CPT/HCPCS: 87088; 85025; 87086; 80048; 36415; 85610; 88300; 82360; 71046; 52317; U0003; J2704; J1580; J3010; J1100; J7120; J2405; J0690 ×2

== ENCOUNTER 2021-09-15 03:32 | Emergency (ER) | payer OTHER, MEDICARE ==
--- OUTSIDE RECORDS SUMMARY | 2021-09-15 03:44 | XMS REPORT | Continuity of Care Document ---
:1940 Author Organization [facility] Address [address] [place] [address] Care Team Providers Name Role Phone Gomez HALL Primary Care Physician SIVAKUMAR WHITLOCK Attending Clinician Unavailable [id number] Attending Clinician Unavailable Danielle Draper Attending Clinician [...] Attending Clinician UNKNOWN Attending Clinician Unavailable Donn FELT CUTTER Attending Clinician Unknown Attending Clinician Unavailable Care, [...] Clinician Unavailable SIVAKUMAR WHITLOCK Admitting Clinician Unavailable [id number] Admitting Clinician Unavailable Danielle Draper Admitting Clinician Unavailable Payers Payer Name Policy Type Policy Number Effective Date Expiration Date S renetta MCR MCR [id number] AARP AARP [id number] MEDICARE B RAILROAD [id number] 2003 00:00:00 [facility] [id number] 2006 MEDICARE SUPPLEMENT 00:00:00 Advance Directives Directive Decision Effective Termination Comments Source Date Date Healthcare Agents on N/A Univ ersity FileNameRelationshipHealthcare of [place] Agent Medical RelationshipCommunicationWillodean Branch ReedSpouseHealth Care [phone] (Mobile) Problems Condition Condition Condition Status Onset Resolution Last Treating Co mments Source Name Details Category Date Date Treatment Clinician Date 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 -18 ity of 00:00: [address] 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 sm in male sm in male 30 it y of 00:00: [address] Gynecomast Gynecomast Disease Active U nivers ia ia 3-04 ity of 00:00: [address] Elevated Elevated Disease Active Unive rs prolactin prolactin 3-04 ity of level level 00:00: [address] Allergies, Adverse Reactions, Alerts Allergy Allergy Status Severity Reaction(s) Onset Inactive Treating Comm ents Source Name Type Date Date Clinician NO KNOWN Drug Active Univers ALLERGIE Class ity of S [facility] Family History Family Member Diagnosis Comments Start Date Stop Date Source Family member Thyroid [facility] Social History Social Habit Start Date Stop Date Quantity Comments Source History SDOH University o f Alcohol Frequency [place] [facility] History SDOH University o f Alcohol Std [place] [facility] Drinks [facility] History SDOH University o f Alcohol Binge [place] [facility] al [facility] Exposure to Not sure University of SARS-CoV-2 [facility] (event) [place] Alcohol intake 2020-02-02 2020-02-02 0 /d University of 00:00:00 00:00:00 [facility] Tobacco use and 2020-02-02 2020-02-02 Never used Universit y of exposure 00:00:00 00:00:00 [facility] Alcohol Comment 2018-03-21 2018-03-21 occaisonal wine Univ ersity of 00:00:00 00:00:00 [facility] Sex [birth year] Universit y of 00:00:00 00:00:00 [facility] Smoking Status Start Date Stop Date Source Never smoker [facility] Medications Ordered Filled Start Stop Current Ordering Indication Dosage Frequency Signature Comments Components Source Medication Medication Date Date Medication? Clinician (SIG) Name Name clonazePAM Yes [id number] .5mg Take 1 U nivers 0.5 mg 6-04 tablet by ity of tablet 00:00: mouth at [place] 00 bedtime. Medical Branch clonazePAM Yes [id number] .5mg Take 1 U nivers 0.5 mg 6-04 tablet by ity of tablet 00:00: mouth at [place] 00 bedtime. Medical Branch clonazePAM Yes [id number] .5mg Take 1 U nivers 0.5 mg 6-04 tablet by ity of tablet 00:00: mouth at [place] 00 bedtime. Medical Branch rivaroxaban Yes Take by Un jhonatan (XARELTO) 4-30 mouth. ity of 20 mg 15:40: [place] tablet 28 [facility] rivaroxaban Yes Take by Un jhonatan (XARELTO) 4-30 mouth. ity of 20 mg 15:40: [place] tablet 28 [facility] rivaroxaban Yes Take by Un jhonatan (XARELTO) 4-30 mouth. ity of 20 mg 15:40: [place] tablet 28 [facility] rivaroxaban Yes Take by Un jhonatan (XARELTO) 4-30 mouth. ity of 20 mg 15:40: [place] tablet 28 [facility] rivaroxaban Yes Take by Un jhonatan (XARELTO) 4-30 mouth. ity of 20 mg 15:40: [place] tablet 28 [facility] Branch rivaroxaban Yes Take by Un jhonatan (XARELTO) 4-30 mouth. ity of 20 mg 10:40: [place] tablet 28 Medical Branch divalproex Yes [id number] 500mg Take 2 Univers ER 250 mg 4-30 tablets by ity of 24 hr 00:00: mouth at [place] [facility] 00 bedtime. Medical Branch mirtazapine Yes [id number] 7.5mg Take 1 Univers 7.5 mg 4-30 105 tablet by ity of tablet 00:00: mouth at [place] 00 bedtime. Medical Branch paliperidon 2020-0 Yes [id number] TAKE 1 Univers e 3 mg 24 4-30 TABLET BY ity o f hour tablet 00:00: MOUTH ONCE [place] 00 DAILY Medical Branch divalproex 2020-0 Yes [id number] 500mg Take 2 Univers ER 250 mg 4-30 tablets by ity of 24 hr 00:00: mouth at [place] tablet 00 bedtime. Medical Branch mirtazapine 2020-0 Yes [id number] 7.5mg Take 1 Univers 7.5 mg 4-30 105 tablet by ity of tablet 00:00: mouth at [place] 00 bedtime. Medical Branch paliperidon 2020-0 Yes [id number] TAKE 1 Univers e 3 mg 24 4-30 TABLET BY ity o f hour tablet 00:00: MOUTH ONCE [place] 00 DAILY Medical Branch divalproex 2020-0 Yes [id number] 500mg Take 2 Univers ER 250 mg 4-30 tablets by ity of 24 hr 00:00: mouth at [place] tablet 00 bedtime. Medical Branch mirtazapine 0 Yes [id number] 7.5mg Take 1 Univers 7.5 mg 4-30 105 tablet by ity of tablet 00:00: mouth at [place] 00 bedtime. Medical Branch paliperidon 2020-0 Yes [id number] TAKE 1 Univers e 3 mg 24 4-30 TABLET BY ity o f hour tablet 00:00: MOUTH ONCE [place] 00 DAILY Medical Branch divalproex 2020-0 Yes [id number] 500mg Take 2 Univers ER 250 mg 4-30 tablets by ity of 24 hr 00:00: mouth at [place] tablet 00 bedtime. Medical Branch mirtazapine 2020-0 Yes [id number] 7.5mg Take 1 Univers 7.5 mg 4-30 105 tablet by ity of tablet 00:00: mouth at [place] 00 bedtime. Medical Branch paliperidon 2020-0 Yes [id number] TAKE 1 Univers e 3 mg 24 4-30 TABLET BY ity o f hour tablet 00:00: MOUTH ONCE [place] 00 DAILY Medical Branch divalproex 2020-0 Yes [id number] 500mg Take 2 Univers ER 250 mg 4-30 tablets by ity of 24 hr 00:00: mouth at [place] tablet 00 bedtime. Medical Branch mirtazapine Yes [id number] 7.5mg Take 1 Univers 7.5 mg 4-30 105 tablet by ity of tablet 00:00: mouth at [place] 00 bedtime. Medical Branch paliperidon Yes [id number] TAKE 1 Univers e 3 mg 24 4-30 TABLET BY ity o f hour tablet 00:00: MOUTH ONCE [place] 00 DAILY Medical Branch divalproex 2020-0 Yes [id number] 500mg Take 2 Univers ER 250 mg 4-30 tablets by ity of 24 hr 00:00: mouth at [place] tablet 00 bedtime. Medical Branch mirtazapine Yes [id number] 7.5mg Take 1 Univers 7.5 mg 4-30 105 tablet by ity of tablet 00:00: mouth at [place] 00 bedtime. Medical Branch paliperidon Yes [id number] TAKE 1 Univers e 3 mg 24 4-30 TABLET BY ity o f hour tablet 00:00: MOUTH ONCE [place] 00 DAILY Medical Branch divalproex 0 2020- No [id number] 500mg Take 2 Univers ER 250 mg 4-30 04-30 tablets by ity of 24 hr 00:00: 00:00 mouth at [place] tablet 00 :00 bedtime. Medical Branch divalproex 2020-2020- No [id number] 500mg Take 2 Univers ER 250 mg 4-30 04-30 tablets by ity of 24 hr 00:00: 00:00 mouth at [place] tablet 00 :00 bedtime. Medical Branch divalproex 2020-0 2020- No [id number] 500mg Take 2 Univers ER 250 mg 4-30 04-30 tablets by ity of 24 hr 00:00: 00:00 mouth at [place] tablet 00 :00 bedtime. Medical Branch divalproex 0 Yes [id number] 500mg Take 1 Univers ER 500 mg 4-08 tablet by ity o f 24 hr 00:00: mouth [place] tablet 00 every 24 Medical (twenty-fo Branch ur) hours. divalproex 0 Yes [id number] 500mg Take 1 Univers ER 500 mg 4-08 tablet by ity o f 24 hr 00:00: mouth [place] tablet 00 every 24 Medical (twenty-fo Branch ur) hours. divalproex 0 2020- No [id number] 500mg Take 1 Univers ER 500 mg 4-08 04-30 tablet by ity of 24 hr 00:00: 00:00 mouth [place] tablet 00 :00 every 24 Medical (twenty-fo Branch ur) hours. divalproex 2020-0 2020- No [id number] 500mg Take 1 Univers ER 500 mg 4-08 04-30 tablet by ity of 24 hr 00:00: 00:00 mouth [place] tablet 00 :00 every 24 Medical (twenty-fo Branch ur) hours. divalproex 2020-0 2020- No [id number] 500mg Take 1 Univers ER 500 mg 4-12 18-30 tablet by ity of 24 hr 00:00: 00:00 mouth [place] tablet 00 :00 every 24 Medical (twenty-fo Branch ur) hours. clonazePAM 2020-0 Yes [id number] .5mg Take 1 U nivers 0.5 mg 3-04 tablet by ity of tablet 00:00: mouth at [place] [address] bedtime. Medical Branch clonazePAM 2020-0 Yes [id number] .5mg Take 1 U nivers 0.5 mg 3-04 tablet by ity of tablet 00:00: mouth at [place] [address] bedtime. Medical Branch clonazePAM 2020-0 Yes [id number] .5mg Take 1 U nivers 0.5 mg 3-04 tablet by ity of tablet 00:00: mouth at [place] [address] bedtime. Medical Branch clonazePAM 2020-0 Yes [id number] .5mg Take 1 U nivers 0.5 mg 3-04 tablet by ity of tablet 00:00: mouth at [place] [address] bedtime. Medical Branch clonazePAM 2020-0 Yes [id number] .5mg Take 1 U nivers 0.5 mg 3-04 tablet by ity of tablet 00:00: mouth at [place] [address] bedtime. Medical Branch clonazePAM 2020-0 Yes [id number] .5mg Take 1 U nivers 0.5 mg 3-04 tablet by ity of tablet 00:00: mouth at [place] [address] bedtime. Medical Branch clonazePAM 2020-0 Yes [id number] .5mg Take 1 U nivers 0.5 mg 3-04 tablet by ity of tablet 00:00: mouth at [place] [address] bedtime. Medical Branch clonazePAM 2020-0 Yes [id number] .5mg Take 1 U nivers 0.5 mg 3-04 tablet by ity of tablet 00:00: mouth at [place] [address] bedtime. Medical Branch clonazePAM 2020-0 Yes [id number] .5mg Take 1 U nivers 0.5 mg 3-04 tablet by ity of tablet 00:00: mouth at [place] [address] bedtime. Medical Branch clonazePAM 2020-0 Yes [id number] .5mg Take 1 U nivers 0.5 mg 3-04 tablet by ity of tablet 00:00: mouth at [place] 00 bedtime. Medical Branch clonazePAM 2020-2020- No [id number] .5mg Take 1 Univers 0.5 mg 3-04 06-04 tablet by ity of tablet 00:00: 00:00 mouth at [place] 00 :00 bedtime. Medical Branch clonazePAM 2020-2020- No [id number] .5mg Take 1 Univers 0.5 mg 3-04 06-04 tablet by ity of tablet 00:00: 00:00 mouth at [place] 00 :00 bedtime. Medical Branch paliperidon 0 Yes [id number] TAKE 1 Univers e 3 mg 24 2-26 TABLET BY ity o f hour tablet 00:00: MOUTH ONCE [place] DAILY Medical Branch paliperidon 2020-0 Yes [id number] TAKE 1 Univers e 3 mg 24 2-26 TABLET BY ity o f hour tablet 00:00: MOUTH ONCE [place] DAILY Medical Branch paliperidon 0 Yes [id number] TAKE 1 Univers e 3 mg 24 2-26 TABLET BY ity o f hour tablet 00:00: MOUTH ONCE DAILY Medical Branch paliperidon 2020-0 Yes [id number] TAKE 1 Univers e 3 mg 24 2-26 TABLET BY ity o f hour tablet 00:00: MOUTH ONCE [place] DAILY Medical Branch paliperidon 2020-0 Yes [id number] TAKE 1 Univers e 3 mg 24 2-26 TABLET BY ity o f hour tablet 00:00: MOUTH ONCE DAILY Medical Branch paliperidon 2020-0 Yes [id number] TAKE 1 Univers e 3 mg 24 2-26 TABLET BY ity o f hour tablet 00:00: MOUTH ONCE [place] DAILY Medical Branch paliperidon 2020-0 Yes [id number] TAKE 1 Univers e 3 mg 24 2-26 TABLET BY ity o f hour tablet 00:00: MOUTH ONCE DAILY Medical Branch paliperidon 2020-0 Yes [id number] TAKE 1 Univers e 3 mg 24 2-26 TABLET BY ity o f hour tablet 00:00: MOUTH ONCE DAILY Medical Branch paliperidon 2020-0 2020- No [id number] TAKE 1 Univers e 3 mg 24 2-26 04-30 TABLET BY ity of hour tablet 00:00: 00:00 MOUTH ONCE [place] 00 :00 DAILY Medical Branch paliperidon 2020-0 2020- No [id number] TAKE 1 Univers e 3 mg 24 2-26 04-30 TABLET BY ity of hour tablet 00:00: 00:00 MOUTH ONCE [place] 00 :00 DAILY Medical Branch paliperidon 2020-0 2020- No [id number] TAKE 1 Univers e 3 mg 24 2-26 04-30 TABLET BY ity of hour tablet 00:00: 00:00 MOUTH ONCE [place] 00 :00 DAILY Medical Branch XARELTO 2020-0 [...] 00:00: daily. Medical Branch paliperidon 2020-0 Yes [id number] TAKE 1 Univers e 3 mg 24 1-22 TABLET BY ity o f hour tablet 00:00: MOUTH ONCE [place] 00 DAILY Medical Branch mirtazapine 2020-0 Yes [id number] 7.5mg Take 1 Univers 7.5 mg 1-22 105 tablet by ity of tablet 00:00: mouth at [place] [address] bedtime. Medical Branch mirtazapine 2020-0 Yes [id number] 7.5mg Take 1 Univers 7.5 mg 1-22 105 tablet by ity of tablet 00:00: mouth at [place] [address] bedtime. Medical Branch mirtazapine 2020-0 Yes [id number] 7.5mg Take 1 Univers 7.5 mg 1-22 105 tablet by ity of tablet 00:00: mouth at [place] [address] bedtime. Medical Branch mirtazapine 2020-0 Yes [id number] 7.5mg Take 1 Univers 7.5 mg 1-22 105 tablet by ity of tablet 00:00: mouth at [place] [address] bedtime. Medical Branch mirtazapine 2020-0 Yes [id number] 7.5mg Take 1 Univers 7.5 mg 1-22 105 tablet by ity of tablet 00:00: mouth at [place] [address] bedtime. Medical Branch mirtazapine 2020-0 Yes [id number] 7.5mg Take 1 Univers 7.5 mg 1-22 105 tablet by ity of tablet 00:00: mouth at [place] [address] bedtime. Medical Branch mirtazapine 2020-0 Yes [id number] 7.5mg Take 1 Univers 7.5 mg 1-22 105 tablet by ity of tablet 00:00: mouth at [place] [address] bedtime. Medical Branch mirtazapine 2020-0 Yes [id number] 7.5mg Take 1 Univers 7.5 mg 1-22 105 tablet by ity of tablet 00:00: mouth at [place] 00 bedtime. Medical Branch mirtazapine Yes [id number] 7.5mg Take 1 Univers 7.5 mg 1-22 105 tablet by ity of tablet 00:00: mouth at [place] 00 bedtime. Medical Branch propranoloL 2020- No [id number] 10mg Take 1 Univers 10 mg 1-22 07-22 tablet by ity of tablet 00:00: 04:59 mouth 2 [place] 00 :00 (two) Medical times Branch daily as needed (tremor) for up to 180 days. propranoloL 2020- No [id number] 10mg Take 1 Univers 10 mg 1-22 07-22 tablet by ity of tablet 00:00: 04:59 mouth 2 [place] 00 :00 (two) Medical times Branch daily as needed (tremor) for up to 180 days. propranoloL 2020- No [id number] 10mg Take 1 Univers 10 mg 1-22 07-22 tablet by ity of tablet 00:00: 04:59 mouth 2 [place] 00 :00 (two) Medical times Branch daily as needed (tremor) for up to 180 days. propranoloL 2020- No [id number] 10mg Take 1 Univers 10 mg 1-22 07-22 tablet by ity of tablet 00:00: 04:59 mouth 2 [place] 00 :00 (two) Medical times Branch daily as needed (tremor) for up to 180 days. propranoloL 2020- No [id number] 10mg Take 1 Univers 10 mg 1-22 07-22 tablet by ity of tablet 00:00: 04:59 mouth 2 [place] 00 :00 (two) Medical times Branch daily as needed (tremor) for up to 180 days. propranoloL 2020- No [id number] 10mg Take 1 Univers 10 mg 1-22 07-22 tablet by ity of tablet 00:00: 04:59 mouth 2 [place] 00 :00 (two) Medical times Branch daily as needed (tremor) for up to 180 days. propranoloL 2020- No [id number] 10mg Take 1 Univers 10 mg 1-22 07-22 tablet by ity of tablet 00:00: 04:59 mouth 2 [place] 00 :00 (two) Medical times Branch daily as needed (tremor) for up to 180 days. propranoloL 2020- No [id number] 10mg Take 1 Univers 10 mg 06-07-22 tablet by ity of tablet 00:00: 04:59 mouth 2 [place] 00 :00 (two) Medical times Branch daily as needed (tremor) for up to 180 days. propranoloL 2020- No [id number] 10mg Take 1 Univers 10 mg -05 12-22 tablet by ity of tablet 00:00: 04:59 mouth 2 [place] 00 :00 (two) Medical times Branch daily as needed (tremor) for up to 180 days. propranoloL 2020- No [id number] 10mg Take 1 Univers 10 mg 06-07- tablet by ity of tablet 00:00: 04:59 mouth 2 [place] 00 :00 (two) Medical times Branch daily as needed (tremor) for up to 180 days. propranoloL 2020- No [id number] 10mg Take 1 Univers 10 mg 06-07- tablet by ity of tablet 00:00: 04:59 mouth 2 [place] 00 :00 (two) Medical times Branch daily as needed (tremor) for up to 180 days. propranoloL 2020- No [id number] 10mg Take 1 Univers 10 mg 06-07- tablet by ity of tablet 00:00: 04:59 mouth 2 [place] 00 :00 (two) Medical times Branch daily as needed (tremor) for up to 180 days. propranoloL 2020- No [id number] 10mg Take 1 Univers 10 mg 06-07- tablet by ity of tablet 00:00: 04:59 mouth 2 [place] 00 :00 (two) Medical times Branch daily as needed (tremor) for up to 180 days. propranoloL 2020- No [id number] 10mg Take 1 Univers 10 mg 06-07-22 tablet by ity of tablet 00:00: 04:59 mouth 2 [place] 00 :00 (two) Medical times Branch daily as needed (tremor) for up to 180 days. mirtazapine 2020- No [id number] 7.5mg Take 1 Univers 7.5 mg 06-07 04-30 105 tablet by ity of tablet 00:00: 00:00 mouth at [place] 00 :00 bedtime. Medical Branch mirtazapine 2020- No [id number] 7.5mg Take 1 Univers 7.5 mg -22 -30 105 tablet by ity of tablet 00:00: 00:00 mouth at [place] 00 :00 bedtime. Medical Branch mirtazapine 2020- No [id number] 7.5mg Take 1 Univers 7.5 mg -22 -30 105 tablet by ity of tablet 00:00: 00:00 mouth at [place] 00 :00 bedtime. Medical Branch divalproex 2019-05 Yes [id number] 500mg Take 2 Univers ER 250 mg 2-26 tablets by ity of 24 hr 00:00: mouth at [place] tablet 00 bedtime. Medical Branch divalproex 2019-05- No [id number] 500mg Take 2 Univers ER 250 mg 2-26 -06 tablets by ity of 24 hr 00:00: 05:59 mouth at [place] tablet 00 :00 bedtime Medical for 10 days. divalproex 2019-05 Yes [id number] 500mg Take 2 Univers ER 250 mg 1-13 tablets by ity of 24 hr 00:00: mouth at [place] tablet 00 bedtime. Medical Branch divalproex 2019-05 Yes [id number] 500mg Take 2 Univers ER 250 mg 1-13 tablets by ity of 24 hr 00:00: mouth at [place] tablet 00 bedtime. Medical Branch divalproex 2019-05 Yes [id number] 500mg Take 2 Univers ER 250 mg 1-13 tablets by ity of 24 hr 00:00: mouth at [place] tablet 00 bedtime. Medical Branch divalproex 2019-05 Yes [id number] 500mg Take 2 Univers ER 250 mg 1-13 tablets by ity of 24 hr 00:00: mouth at [place] tablet 00 bedtime. Medical Branch clonazePAM 2019- Yes [id number] .5mg Take 1 U nivers 0.5 mg 1-03 tablet by ity of tablet 00:00: mouth at [place] 00 bedtime. Medical Branch mirtazapine 2019-05 Yes [id number] 7.5mg Take 1 Univers 7.5 mg 1-03 105 tablet by ity of tablet 00:00: mouth at [place] 00 bedtime. Medical Branch paliperidon 2019- Yes [id number] TAKE 1 Univers e 3 mg 24 1-03 TABLET BY ity o f hour tablet 00:00: MOUTH ONCE [place] 00 DAILY Medical Branch clonazePAM 2020-1 Yes [id number] .5mg Take 1 U nivers 0.5 mg 1-03 tablet by ity of tablet 00:00: mouth at [place] 00 bedtime. Medical Branch mirtazapine 2020- Yes [id number] 7.5mg Take 1 Univers 7.5 mg 1-03 105 tablet by ity of tablet 00:00: mouth at [place] 00 bedtime. Medical Branch paliperidon 2020- Yes [id number] TAKE 1 Univers e 3 mg 24 1-03 TABLET BY ity o f hour tablet 00:00: MOUTH ONCE [place] 00 DAILY Medical Branch clonazePAM 2019- Yes [id number] .5mg Take 1 U nivers 0.5 mg 1-03 tablet by ity of tablet 00:00: mouth at [place] 00 bedtime. Medical Branch mirtazapine 2019- Yes [id number] 7.5mg Take 1 Univers 7.5 mg 1-03 105 tablet by ity of tablet 00:00: mouth at [place] 00 bedtime. Medical Branch paliperidon 2019- Yes [id number] TAKE 1 Univers e 3 mg 24 1-03 TABLET BY ity o f hour tablet 00:00: MOUTH ONCE [place] 00 DAILY Medical Branch clonazePAM 2019- Yes [id number] .5mg Take 1 U nivers 0.5 mg 1-03 tablet by ity of tablet 00:00: mouth at [place] [address] bedtime. Medical Branch clonazePAM 2019- Yes [id number] .5mg Take 1 U nivers 0.5 mg 1-03 tablet by ity of tablet 00:00: mouth at [place] [address] bedtime. Medical Branch clonazePAM 2019- Yes [id number] .5mg Take 1 U nivers 0.5 mg 1-03 tablet by ity of tablet 00:00: mouth at [place] 00 bedtime. Medical Branch mirtazapine 2020- Yes [id number] 7.5mg Take 1 Univers 7.5 mg 1-03 105 tablet by ity of tablet 00:00: mouth at [place] [address] bedtime. Medical Branch clonazePAM 2019- Yes [id number] .5mg Take 1 U nivers 0.5 mg 1-03 tablet by ity of tablet 00:00: mouth at [place] 00 bedtime. Medical Branch mirtazapine 2019- Yes [id number] 7.5mg Take 1 Univers 7.5 mg 1-03 105 tablet by ity of tablet 00:00: mouth at [place] 00 bedtime. Medical Branch paliperidon 2020- Yes [id number] TAKE 1 Univers e 3 mg 24 1-03 TABLET BY ity o f hour tablet 00:00: MOUTH ONCE [place] 00 DAILY Medical Branch clonazePAM 2020- Yes [id number] .5mg Take 1 U nivers 0.5 mg 1-03 tablet by ity of tablet 00:00: mouth at [place] 00 bedtime. Medical Branch mirtazapine 2019- Yes [id number] 7.5mg Take 1 Univers 7.5 mg 1-03 105 tablet by ity of tablet 00:00: mouth at [place] 00 bedtime. Medical Branch paliperidon 2019- Yes [id number] TAKE 1 Univers e 3 mg 24 1-03 TABLET BY ity o f hour tablet 00:00: MOUTH ONCE [place] 00 DAILY Medical Branch clonazePAM 2019- Yes [id number] .5mg Take 1 U nivers 0.5 mg 1-03 tablet by ity of tablet 00:00: mouth at [place] 00 bedtime. Medical Branch mirtazapine 2019- Yes [id number] 7.5mg Take 1 Univers 7.5 mg 1-03 105 tablet by ity of tablet 00:00: mouth at [place] 00 bedtime. Medical Branch paliperidon 2019- Yes [id number] TAKE 1 Univers e 3 mg 24 1-03 TABLET BY ity o f hour tablet 00:00: MOUTH ONCE [place] 00 DAILY Medical Branch clonazePAM 2020- Yes [id number] .5mg Take 1 U nivers 0.5 mg 1-03 tablet by ity of tablet 00:00: mouth at [place] 00 bedtime. Medical Branch mirtazapine 2019- Yes [id number] 7.5mg Take 1 Univers 7.5 mg 1-03 105 tablet by ity of tablet 00:00: mouth at [place] 00 bedtime. Medical Branch paliperidon 2019- Yes [id number] TAKE 1 Univers e 3 mg 24 1-03 TABLET BY ity o f hour tablet 00:00: MOUTH ONCE [place] 00 DAILY Medical Branch clonazePAM 2020- Yes [id number] .5mg Take 1 U nivers 0.5 mg 1-03 tablet by ity of tablet 00:00: mouth at [place] bedtime. Medical Branch mirtazapine 2019- Yes [id number] 7.5mg Take 1 Univers 7.5 mg 1-03 105 tablet by ity of tablet 00:00: mouth at [place] bedtime. Medical Branch paliperidon 2019-1 Yes [id number] TAKE 1 Univers e 3 mg 24 1-03 TABLET BY ity o f hour tablet 00:00: MOUTH ONCE 00 DAILY Medical Branch clonazePAM 2019-1 Yes [id number] .5mg Take 1 U nivers 0.5 mg 1-03 tablet by ity of tablet 00:00: mouth at [place] bedtime. Medical Branch mirtazapine 2019- Yes [id number] 7.5mg Take 1 Univers 7.5 mg 1-03 105 tablet by ity of tablet 00:00: mouth at [place] bedtime. Medical Branch paliperidon 2019- Yes [id number] TAKE 1 Univers e 3 mg 24 1-03 TABLET BY ity o f hour tablet 00:00: MOUTH ONCE 00 DAILY Medical Branch mirtazapine 2019- Yes [id number] 7.5mg Take 1 Univers 7.5 mg 0-30 105 tablet by ity of tablet 00:00: mouth at [place] bedtime. Medical Branch mirtazapine 2019- Yes [id number] 7.5mg Take 1 Univers 7.5 mg 0-02 105 tablet by ity of tablet 00:00: mouth at [place] bedtime. Medical Branch mirtazapine 2019- Yes [id number] 7.5mg Take 1 Univers 7.5 mg 0-02 105 tablet by ity of tablet 00:00: mouth at [place] bedtime. Medical Branch propranolol 2020-0 Yes [id number] 10mg Take 1 Univers 10 mg 8-03 tablet by ity of tablet 00:00: mouth 2 (two) Medical times Branch daily as needed (tremor). propranolol 2020-0 Yes [id number] 10mg Take 1 Univers 10 mg 8-03 tablet by ity of tablet 00:00: mouth 2 (two) Medical times Branch daily as needed (tremor). propranolol 2020-0 Yes [id number] 10mg Take 1 Univers 10 mg 8-03 tablet by ity of tablet 00:00: mouth 2 (two) Medical times Branch daily as needed (tremor). propranolol 2020-0 Yes [id number] 10mg Take 1 Univers 10 mg 8-03 tablet by ity of tablet 00:00: mouth 2 00 (two) Medical times Branch daily as needed (tremor). propranolol 2020-0 Yes [id number] 10mg Take 1 Univers 10 mg 8-03 tablet by ity of tablet 00:00: mouth 2 00 (two) Medical times Branch daily as needed (tremor). propranolol 2020-0 Yes [id number] 10mg Take 1 Univers 10 mg 8-03 tablet by ity of tablet 00:00: mouth 2 (two) Medical times Branch daily as needed (tremor). propranolol 2020-0 Yes [id number] 10mg Take 1 Univers 10 mg 8-03 tablet by ity of tablet 00:00: mouth (two) Medical times Branch daily as needed (tremor). propranolol 2020-0 Yes [id number] 10mg Take 1 Univers 10 mg 8-03 tablet by ity of tablet 00:00: mouth (two) Medical times Branch daily as needed (tremor). propranolol 2020-0 Yes [id number] 10mg Take 1 Univers 10 mg 8-03 tablet by ity of tablet 00:00: mouth (two) Medical times Branch daily as needed (tremor). propranolol 2020-0 Yes [id number] 10mg Take 1 Univers 10 mg 8-03 tablet by ity of tablet 00:00: mouth (two) Medical times Branch daily as needed (tremor). propranolol 2020-0 Yes [id number] 10mg Take 1 Univers 10 mg 8-03 tablet by ity of tablet 00:00: mouth (two) Medical times Branch daily as needed (tremor). propranolol 2020-0 Yes [id number] 10mg Take 1 Univers 10 mg 8-03 tablet by ity of tablet 00:00: mouth 00 (two) Medical times Branch daily as needed (tremor). propranolol 2020-0 Yes [id number] 10mg Take 1 [facility] 10 mg [facility]-03 tablet by [facility] tablet 00:00: mouth 2 00 (two) [facility] times [facility] daily as needed (tremor). propranolol 2020-0 Yes [id number] 10mg Take 1 [facility] 10 mg 8-03 tablet by [facility] tablet 00:00: mouth 2 (two) [facility] times [facility] daily as needed (tremor). propranolol 2020-0 Yes [id number] 10mg Take 1 [facility] 10 mg 8-03 tablet by [facility] tablet 00:00: mouth 2 00 (two) [facility] times [facility] daily as needed (tremor). propranolol 2020-0 Yes [id number] 10mg Take 1 [facility] 10 mg 8-03 tablet by [facility] tablet 00:00: mouth 2 00 (two) [facility] times [facility] daily as needed (tremor). propranolol 2020-0 Yes [id number] 10mg Take 1 [facility] 10 mg 8-03 tablet by [facility] tablet 00:00: mouth 2 00 (two) [facility] times [facility] daily as needed (tremor). propranolol 2020-0 Yes [id number] 10mg Take 1 [facility] 10 mg 8-03 tablet by [facility] tablet 00:00: mouth 2 00 (two) Medical times [facility] daily as needed (tremor). propranolol 2020-0 Yes [id number] 10mg Take 1 [facility] 10 mg 8-03 tablet by [facility] tablet 00:00: mouth (two) [facility] times [facility] daily as needed (tremor). propranolol 2020-0 Yes [id number] 10mg Take 1 [facility] 10 mg 8-03 tablet by [facility] tablet 00:00: mouth (two) [facility] times [facility] daily as needed (tremor). propranolol 2020-0 Yes [id number] 10mg Take 1 [facility] 10 mg 8-03 tablet by [facility] tablet 00:00: mouth (two) Medical times [facility] daily as needed (tremor). propranolol 2020-0 Yes [id number] 10mg Take 1 [facility] 10 mg 8-03 tablet by [facility] tablet 00:00: mouth 00 (two) [facility] times [facility] daily as needed (tremor). propranolol 2020-0 Yes [id number] 10mg Take 1 [facility] 10 mg 8-03 tablet by [facility] tablet 00:00: mouth 2 00 (two) [facility] times [facility] daily as needed (tremor). propranolol 2020-0 Yes [id number] 10mg Take 1 [facility] 10 mg 8-03 tablet by [facility] tablet 00:00: mouth 2 00 (two) Medical times [facility] daily as needed (tremor). propranolol 2020-0 Yes [id number] 10mg Take 1 [facility] 10 mg 8-03 tablet by [facility] tablet 00:00: mouth 2 00 (two) [facility] times [facility] daily as needed (tremor). propranolol 2020-0 Yes [id number] 10mg Take 1 [facility] 10 mg 8-03 tablet by [facility] tablet 00:00: mouth 2 (two) Medical times [facility] daily as needed (tremor). propranolol 2020-0 Yes [id number] 10mg Take 1 [facility] 10 mg 8-03 tablet by [facility] tablet 00:00: mouth 2 (two) [facility] times [facility] daily as needed (tremor). propranolol 2020-0 Yes [id number] 10mg Take 1 [facility] 10 mg 8-03 tablet by [facility] tablet 00:00: mouth 2 (two) [facility] times [facility] daily as needed (tremor). propranolol 2020-0 Yes [id number] 10mg Take 1 [facility] 10 mg 8-03 tablet by [facility] tablet 00:00: mouth 2 (two) [facility] times [facility] daily as needed (tremor). propranolol 2020-0 Yes [id number] 10mg Take 1 [facility] 10 mg 8-03 tablet by [facility] tablet 00:00: mouth 2 (two) [facility] times [facility] daily as needed (tremor). propranolol 2020-0 Yes [id number] 10mg Take 1 [facility] 10 mg 8-03 tablet by [facility] tablet 00:00: mouth 2 (two) Medical times [facility] daily as needed (tremor). divalproex 2020-0 Yes [id number] 500mg Take 2 [facility] 250 mg 7-14 tablets by [facility] 24 hr 00:00: mouth at [place] tablet 00 bedtime. [facility] divalproex 2020-0 Yes [id number] 500mg Take 2 [facility] 250 mg 7-14 tablets by [facility] 24 hr 00:00: mouth at [place] tablet 00 bedtime. [facility] divalproex 2020-0 Yes [id number] 500mg Take 2 [facility] 250 mg 7-14 tablets by [facility] 24 hr 00:00: mouth at [place] tablet 00 bedtime. [facility] divalproex 2020-0 Yes [id number] 500mg Take 2 [facility] 250 mg 7-14 tablets by [facility] 24 hr 00:00: mouth at [place] tablet 00 bedtime. [facility] divalproex 2020-0 Yes [id number] 500mg Take 2 [facility] 250 mg 7-14 tablets by [facility] 24 hr 00:00: mouth at [place] tablet 00 bedtime. [facility] divalproex 2020-0 Yes [id number] 500mg Take 2 [facility] 250 mg 7-14 tablets by [facility] 24 hr 00:00: mouth at [place] tablet 00 bedtime. [facility] divalproex 2020-0 Yes [id number] 500mg Take 2 [facility] 250 mg 7-14 tablets by [facility] 24 hr 00:00: mouth at [place] tablet 00 bedtime. [facility] divalproex 2020-0 Yes [id number] 500mg Take 2 [facility] 250 mg 7-14 tablets by [facility] 24 hr 00:00: mouth at [place] tablet 00 bedtime. [facility] divalproex 2020-0 Yes [id number] 500mg Take 2 [facility] 250 mg 7-14 tablets by [facility] 24 hr 00:00: mouth at [place] tablet 00 bedtime. [facility] divalproex 2020-0 Yes [id number] 500mg Take 2 [facility] 250 mg 7-14 tablets by [facility] 24 hr 00:00: mouth at [place] tablet 00 bedtime. [facility] divalproex 2020-0 Yes [id number] 500mg Take 2 [facility] 250 mg 7-14 tablets by [facility] 24 hr 00:00: mouth at [place] tablet 00 bedtime. [facility] divalproex 2020-0 Yes [id number] 500mg Take 2 [facility] 250 mg 7-14 tablets by [facility] 24 hr 00:00: mouth at [place] tablet 00 bedtime. [facility] divalproex 2020-0 Yes [id number] 500mg Take 2 [facility] 250 mg 7-14 tablets by [facility] 24 hr 00:00: mouth at [place] tablet 00 bedtime. [facility] divalproex 2020-0 Yes [id number] 500mg Take 2 [facility] 250 mg 7-14 tablets by [facility] 24 hr 00:00: mouth at [place] tablet 00 bedtime. [facility] divalproex 2020-0 Yes [id number] 500mg Take 2 [facility] 250 mg 7-14 tablets by [facility] 24 hr 00:00: mouth at [place] tablet 00 bedtime. [facility] divalproex 2020-0 Yes [id number] 500mg Take 2 [facility] 250 mg 7-14 tablets by [facility] 24 hr 00:00: mouth at [place] tablet 00 bedtime. [facility] divalproex 2020-0 Yes [id number] 500mg Take 2 [facility] 250 mg 7-14 tablets by [facility] 24 hr 00:00: mouth at [place] tablet 00 bedtime. [facility] divalproex 2020-0 Yes [id number] 500mg Take 2 [facility] 250 mg 7-14 tablets by [facility] 24 hr 00:00: mouth at [place] tablet 00 bedtime. [facility] divalproex 2020-0 Yes [id number] 500mg Take 2 [facility] 250 mg 7-14 tablets by [facility] 24 hr 00:00: mouth at [place] tablet 00 bedtime. [facility] divalproex 2020-0 Yes [id number] 500mg Take 2 [facility] 250 mg 7-14 tablets by [facility] 24 hr 00:00: mouth at [place] tablet 00 bedtime. [facility] divalproex 2020-0 Yes [id number] 500mg Take 2 [facility] 250 mg 7-14 tablets by [facility] 24 hr 00:00: mouth at [place] tablet 00 bedtime. [facility] divalproex 2020-0 Yes [id number] 500mg Take 2 [facility] 250 mg 7-14 tablets by [facility] 24 hr 00:00: mouth at [place] tablet 00 bedtime. [facility] divalproex 2020-0 Yes [id number] 500mg Take 2 [facility] 250 mg 7-14 tablets by [facility] 24 hr 00:00: mouth at [place] tablet 00 bedtime. [facility] divalproex 2020-0 Yes [id number] 500mg Take 2 [facility] 250 mg 7-14 tablets by [facility] 24 hr 00:00: mouth at [place] tablet 00 bedtime. [facility] divalproex 2020-0 Yes [id number] 500mg Take 2 [facility] 250 mg 7-14 tablets by [facility] 24 hr 00:00: mouth at [place] tablet 00 bedtime. [facility] divalproex 2020-0 Yes [id number] 500mg Take 2 [facility] 250 mg 7-14 tablets by [facility] 24 hr 00:00: mouth at [place] tablet 00 bedtime. [facility] divalproex 2020-0 Yes [id number] 500mg Take 2 [facility] 250 mg 7-14 tablets by [facility] 24 hr 00:00: mouth at [place] tablet 00 bedtime. [facility] divalproex 2020-0 Yes [id number] 500mg Take 2 [facility] 250 mg 7-14 tablets by [facility] 24 hr 00:00: mouth at [place] tablet 00 bedtime. [facility] mirtazapine 2020-0 Yes [id number] 7.5mg Take 1 [facility] 7.5 mg 7-10 105 tablet by [facility] tablet 00:00: mouth at [place] [address] bedtime. [facility] mirtazapine 2020-0 Yes [id number] 7.5mg Take 1 [facility] 7.5 mg 7-10 105 tablet by [facility] tablet 00:00: mouth at [place] [address] bedtime. [facility] mirtazapine 2020-0 Yes [id number] 7.5mg Take 1 [facility] 7.5 mg 7-10 105 tablet by [facility] tablet 00:00: mouth at [place] [address] bedtime. [facility] mirtazapine 2020-0 Yes [id number] 7.5mg Take 1 [facility] 7.5 mg 7-10 105 tablet by [facility] tablet 00:00: mouth at [place] [address] bedtime. [facility] mirtazapine 2020-0 Yes [id number] 7.5mg Take 1 [facility] 7.5 mg 7-10 105 tablet by [facility] tablet 00:00: mouth at [place] [address] bedtime. [facility] mirtazapine 2020-0 Yes [id number] 7.5mg Take 1 [facility] 7.5 mg 7-10 105 tablet by [facility] tablet 00:00: mouth at [place] [address] bedtime. [facility] mirtazapine 2020-0 Yes [id number] 7.5mg Take 1 [facility] 7.5 mg 7-10 105 tablet by [facility] tablet 00:00: mouth at [place] [address] bedtime. [facility] mirtazapine 2020-0 Yes [id number] 7.5mg Take 1 [facility] 7.5 mg 7-10 105 tablet by [facility] tablet 00:00: mouth at [place] [address] bedtime. [facility] mirtazapine 2020-0 Yes [id number] 7.5mg Take 1 [facility] 7.5 mg 7-10 105 tablet by [facility] tablet 00:00: mouth at [place] [address] bedtime. [facility] mirtazapine 2020-0 Yes [id number] 7.5mg Take 1 [facility] 7.5 mg 7-10 105 tablet by [facility] tablet 00:00: mouth at [place] [address] bedtime. [facility] mirtazapine 2020-0 Yes [id number] 7.5mg Take 1 [facility] 7.5 mg 7-10 105 tablet by [facility] tablet 00:00: mouth at [place] [address] bedtime. [facility] mirtazapine 2020-0 Yes [id number] 7.5mg Take 1 [facility] 7.5 mg 7-10 105 tablet by [facility] tablet 00:00: mouth at [place] [address] bedtime. [facility] mirtazapine 2020-0 Yes [id number] 7.5mg Take 1 [facility] 7.5 mg 7-10 105 tablet by [facility] tablet 00:00: mouth at [place] [address] bedtime. [facility] mirtazapine 2020-0 Yes [id number] 7.5mg Take 1 [facility] 7.5 mg 7-10 105 tablet by [facility] tablet 00:00: mouth at [place] [address] bedtime. [facility] mirtazapine 2020-0 Yes [id number] 7.5mg Take 1 [facility] 7.5 mg 7-10 105 tablet by [facility] tablet 00:00: mouth at [place] [address] bedtime. [facility] mirtazapine 2020-0 Yes [id number] 7.5mg Take 1 [facility] 7.5 mg 7-10 105 tablet by [facility] tablet 00:00: mouth at [place] [address] bedtime. [facility] mirtazapine 2020-0 Yes [id number] 7.5mg Take 1 [facility] 7.5 mg 7-10 105 tablet by [facility] tablet 00:00: mouth at [place] [address] bedtime. [facility] mirtazapine 2020-0 Yes [id number] 7.5mg Take 1 [facility] 7.5 mg 7-10 105 tablet by [facility] tablet 00:00: mouth at [place] [address] bedtime. [facility] mirtazapine 2020-0 Yes [id number] 7.5mg Take 1 [facility] 7.5 mg 7-10 105 tablet by [facility] tablet 00:00: mouth at [place] [address] bedtime. [facility] mirtazapine 2020-0 Yes [id number] 7.5mg Take 1 [facility] 7.5 mg 7-10 105 tablet by [facility] tablet 00:00: mouth at [place] [address] bedtime. [facility] mirtazapine 2020-0 Yes [id number] 7.5mg Take 1 [facility] 7.5 mg 7-10 105 tablet by [facility] tablet 00:00: mouth at [place] [address] bedtime. [facility] mirtazapine 2020-0 Yes [id number] 7.5mg Take 1 [facility] 7.5 mg 7-10 105 tablet by [facility] tablet 00:00: mouth at [place] [address] bedtime. [facility] paliperidon 2020-0 Yes [id number] TAKE 1 [facility] e 3 mg 24 4-24 TABLET BY [facility] f hour tablet 00:00: MOUTH ONCE DAILY [facility] paliperidon 2020-0 Yes [id number] TAKE 1 [facility] e 3 mg 24 4-24 TABLET BY [facility] o f hour tablet 00:00: MOUTH ONCE DAILY [facility] paliperidon 2020-0 Yes [id number] TAKE 1 [facility] e 3 mg 24 4-24 TABLET BY [facility] o f hour tablet 00:00: MOUTH ONCE DAILY [facility] paliperidon 2020-0 Yes [id number] TAKE 1 [facility] e 3 mg 24 4-24 TABLET BY [facility] o f hour tablet 00:00: MOUTH ONCE DAILY [facility] paliperidon 2020-0 Yes [id number] TAKE 1 [facility] e 3 mg 24 4-24 TABLET BY [facility] o f hour tablet 00:00: MOUTH ONCE DAILY [facility] paliperidon 2020-0 Yes [id number] TAKE 1 [facility] e 3 mg 24 4-24 TABLET BY [facility] f hour tablet 00:00: MOUTH ONCE DAILY [facility] paliperidon 2020-0 Yes [id number] TAKE 1 [facility] e 3 mg 24 4-24 TABLET BY [facility] f hour tablet 00:00: MOUTH ONCE DAILY [facility] paliperidon 2020-0 Yes [id number] TAKE 1 [facility] e 3 mg 24 4-24 TABLET BY [facility] f hour tablet 00:00: MOUTH ONCE DAILY [facility] paliperidon 2020-0 Yes [id number] TAKE 1 [facility] e 3 mg 24 4-24 TABLET BY [facility] o f hour tablet 00:00: MOUTH ONCE DAILY [facility] paliperidon 2020-0 Yes [id number] TAKE 1 [facility] e 3 mg 24 4-24 TABLET BY [facility] o f hour tablet 00:00: MOUTH ONCE DAILY [facility] paliperidon 2020-0 Yes [id number] TAKE 1 [facility] e 3 mg 24 4-24 TABLET BY [facility] o f hour tablet 00:00: MOUTH ONCE DAILY [facility] paliperidon 2020-0 Yes [id number] TAKE 1 [facility] e 3 mg 24 4-24 TABLET BY [facility] o f hour tablet 00:00: MOUTH ONCE DAILY [facility] paliperidon 2020-0 Yes [id number] TAKE 1 [facility] e 3 mg 24 4-24 TABLET BY [facility] o f hour tablet 00:00: MOUTH ONCE DAILY [facility] paliperidon 2020-0 Yes [id number] TAKE 1 [facility] e 3 mg 24 4-24 TABLET BY [facility] o f hour tablet 00:00: MOUTH ONCE DAILY [facility] paliperidon 2020-0 Yes [id number] TAKE 1 [facility] e 3 mg 24 4-24 TABLET BY [facility] o f hour tablet 00:00: MOUTH ONCE DAILY [facility] paliperidon 2020-0 Yes [id number] TAKE 1 [facility] e 3 mg 24 4-24 TABLET BY [facility] f hour tablet 00:00: MOUTH ONCE DAILY [facility] paliperidon 2020-0 Yes [id number] TAKE 1 [facility] e 3 mg 24 4-24 TABLET BY [facility] f hour tablet 00:00: MOUTH ONCE DAILY [facility] paliperidon 2020-0 Yes [id number] TAKE 1 [facility] e 3 mg 24 4-24 TABLET BY [facility] f hour tablet 00:00: MOUTH ONCE DAILY [facility] paliperidon 2020-0 Yes [id number] TAKE 1 [facility] e 3 mg 24 4-24 TABLET BY [facility] f hour tablet 00:00: MOUTH ONCE DAILY [facility] paliperidon 2020-0 Yes [id number] TAKE 1 [facility] e 3 mg 24 4-24 TABLET BY [facility] f hour tablet 00:00: MOUTH ONCE DAILY [facility] paliperidon 2020-0 Yes [id number] TAKE 1 [facility] e 3 mg 24 4-24 TABLET BY [facility] o f hour tablet 00:00: MOUTH ONCE DAILY [facility] paliperidon 2020-0 Yes [id number] TAKE 1 [facility] e 3 mg 24 4-24 TABLET BY [facility] f hour tablet 00:00: MOUTH ONCE DAILY [facility] paliperidon 2020-0 Yes [id number] TAKE 1 [facility] e 3 mg 24 4-24 TABLET BY [facility] o f hour tablet 00:00: MOUTH ONCE DAILY [facility] paliperidon 2020-0 Yes [id number] TAKE 1 [facility] e 3 mg 24 4-24 TABLET BY [facility] o f hour tablet 00:00: MOUTH ONCE DAILY [facility] paliperidon 2020-0 Yes [id number] TAKE 1 [facility] e 3 mg 24 4-24 TABLET BY [facility] o f hour tablet 00:00: MOUTH ONCE DAILY [facility] paliperidon 2020-0 Yes [id number] TAKE 1 [facility] e 3 mg 24 4-24 TABLET BY [facility] o f hour tablet 00:00: MOUTH ONCE [place] 00 DAILY [facility] paliperidon 2020-0 Yes [id number] TAKE 1 [facility] e 3 mg 24 4-24 TABLET BY [facility] o f hour tablet 00:00: MOUTH ONCE [place] 00 DAILY [facility] paliperidon 2020-0 Yes [id number] TAKE 1 [facility] e 3 mg 24 4-24 TABLET BY [facility] o f hour tablet 00:00: MOUTH ONCE 00 DAILY [facility] divalproex 2020-0 Yes [id number] 500mg Take 2 [facility] ER 250 mg 4-23 tablets by [facility] 24 hr 00:00: mouth at [place] tablet 00 bedtime. [facility] divalproex 2020-0 Yes [id number] 500mg Take 2 [facility] ER 250 mg 4-23 tablets by [facility] 24 hr 00:00: mouth at [place] tablet 00 bedtime. [facility] divalproex 2020-0 Yes [id number] 500mg Take 2 [facility] 250 mg 4-23 tablets by [facility] 24 hr 00:00: mouth at [place] tablet 00 bedtime. [facility] divalproex 2020-0 Yes [id number] 500mg Take 2 [facility] ER 250 mg 4-23 tablets by [facility] 24 hr 00:00: mouth at [place] tablet 00 bedtime. [facility] divalproex 2020-0 Yes [id number] 500mg Take 2 [facility] ER 250 mg 4-23 tablets by [facility] 24 hr 00:00: mouth at [place] tablet 00 bedtime. [facility] TOPIRAMATE 2020-0 Yes [id number] TAKE 1 [facility] 25 mg 4-22 TABLET BY [facility] tablet 00:00: MOUTH TWO [place] TIMES Medical DAILY Branch TOPIRAMATE 2020-0 Yes [id number] TAKE 1 [facility] 25 mg 4-22 TABLET BY [facility] tablet 00:00: MOUTH TWO [place] TIMES Medical DAILY [facility] TOPIRAMATE 2020-0 Yes [id number] TAKE 1 [facility] 25 mg 4-22 TABLET BY [facility] tablet 00:00: MOUTH TWO [place] TIMES Medical DAILY Branch TOPIRAMATE 2020-0 Yes [id number] TAKE 1 [facility] 25 mg 4-22 TABLET BY [facility] tablet 00:00: MOUTH TWO [place] TIMES Medical DAILY [facility] TOPIRAMATE 2020-0 Yes [id number] TAKE 1 [facility] 25 mg 4-22 TABLET BY [facility] tablet 00:00: MOUTH TWO [place] TIMES Medical DAILY [facility] TOPIRAMATE 2020-0 Yes [id number] TAKE 1 [facility] 25 mg 4-22 TABLET BY [facility] tablet 00:00: MOUTH TWO [place] TIMES Medical DAILY [facility] TOPIRAMATE 2020-0 Yes [id number] TAKE 1 [facility] 25 mg 4-22 TABLET BY [facility] tablet 00:00: MOUTH TWO [place] TIMES Medical DAILY [facility] TOPIRAMATE 2020-0 Yes [id number] TAKE 1 [facility] 25 mg 4-22 TABLET BY [facility] tablet 00:00: MOUTH TWO [place] TIMES Medical DAILY [facility] TOPIRAMATE 2020-0 Yes [id number] TAKE 1 [facility] 25 mg 4-22 TABLET BY [facility] tablet 00:00: MOUTH TWO [place] TIMES Medical DAILY [facility] TOPIRAMATE 2020-0 Yes [id number] TAKE 1 [facility] 25 mg 4-22 TABLET BY [facility] tablet 00:00: MOUTH TWO [place] TIMES Medical DAILY [facility] TOPIRAMATE 2020-0 Yes [id number] TAKE 1 [facility] 25 mg 4-22 TABLET BY [facility] tablet 00:00: MOUTH TWO [place] TIMES Medical DAILY [facility] TOPIRAMATE 2020-0 Yes [id number] TAKE 1 [facility] 25 mg 4-22 TABLET BY [facility] tablet 00:00: MOUTH TWO [place] [facility] DAILY [facility] TOPIRAMATE 2020-0 Yes [id number] TAKE 1 [facility] 25 mg 4-22 TABLET BY [facility] tablet 00:00: MOUTH TWO [place] [facility] DAILY [facility] TOPIRAMATE 2020-0 Yes [id number] TAKE 1 [facility] 25 mg 4-22 TABLET BY [facility] tablet 00:00: MOUTH TWO [place] [facility] DAILY [facility] TOPIRAMATE 2020-0 Yes [id number] TAKE 1 [facility] 25 mg 4-22 TABLET BY [facility] tablet 00:00: MOUTH TWO [place] TIMES Medical DAILY [facility] TOPIRAMATE 2020-0 Yes [id number] TAKE 1 [facility] 25 mg 4-22 TABLET BY [facility] tablet 00:00: MOUTH TWO [place] TIMES Medical DAILY [facility] TOPIRAMATE 2020-0 Yes [id number] TAKE 1 [facility] 25 mg 4-22 TABLET BY [facility] tablet 00:00: MOUTH TWO [place] TIMES Medical DAILY [facility] TOPIRAMATE 2020-0 Yes [id number] TAKE 1 [facility] 25 mg 4-22 TABLET BY [facility] tablet 00:00: MOUTH TWO [place] TIMES Medical DAILY [facility] TOPIRAMATE 2020-0 Yes [id number] TAKE 1 [facility] 25 mg 4-22 TABLET BY [facility] tablet 00:00: MOUTH TWO [place] TIMES Medical DAILY [facility] TOPIRAMATE 2020-0 Yes [id number] TAKE 1 [facility] 25 mg 4-22 TABLET BY [facility] tablet 00:00: MOUTH TWO [place] TIMES Medical DAILY [facility] TOPIRAMATE 2020-0 Yes [id number] TAKE 1 [facility] 25 mg 4-22 TABLET BY [facility] tablet 00:00: MOUTH TWO [place] TIMES Medical DAILY [facility] TOPIRAMATE 2020-0 Yes [id number] TAKE 1 [facility] 25 mg 4-22 TABLET BY [facility] tablet 00:00: MOUTH TWO [place] TIMES Medical DAILY [facility] TOPIRAMATE 2020-0 Yes [id number] TAKE 1 [facility] 25 mg 4-22 TABLET BY [facility] tablet 00:00: MOUTH TWO [place] TIMES Medical DAILY [facility] TOPIRAMATE 2020-0 Yes [id number] TAKE 1 [facility] 25 mg 4-22 TABLET BY [facility] tablet 00:00: MOUTH TWO [place] [facility] DAILY [facility] TOPIRAMATE 2020-0 Yes [id number] TAKE 1 [facility] 25 mg 4-22 TABLET BY [facility] tablet 00:00: MOUTH TWO [place] TIMES Medical DAILY [facility] TOPIRAMATE 2020-0 Yes [id number] TAKE 1 [facility] 25 mg 4-22 TABLET BY [facility] tablet 00:00: MOUTH TWO [place] [facility] DAILY [facility] TOPIRAMATE 2020-0 Yes [id number] TAKE 1 [facility] 25 mg 4-22 TABLET BY [facility] tablet 00:00: [facility] TWO [place] [facility] DAILY Branch TOPIRAMATE 2020-0 Yes [id number] TAKE 1 [facility] 25 mg 4-22 TABLET BY [facility] tablet 00:00: MOUTH TWO [place] TIMES Medical DAILY [facility] TOPIRAMATE 2020-0 Yes [id number] TAKE 1 [facility] 25 mg 4-22 TABLET BY [facility] tablet 00:00: MOUTH TWO [place] TIMES Medical DAILY [facility] TOPIRAMATE 2020-0 Yes [id number] TAKE 1 [facility] 25 mg 4-22 TABLET BY [facility] tablet 00:00: MOUTH TWO [place] TIMES Medical DAILY [facility] TOPIRAMATE 2020-0 Yes [id number] TAKE 1 [facility] 25 mg 4-22 TABLET BY [facility] tablet 00:00: MOUTH TWO [place] TIMES Medical DAILY [facility] TOPIRAMATE 2020-0 Yes [id number] TAKE 1 [facility] 25 mg 4-22 TABLET BY [facility] tablet 00:00: MOUTH TWO [place] TIMES Medical DAILY [facility] TOPIRAMATE 2020-0 Yes [id number] TAKE 1 [facility] 25 mg 4-22 TABLET BY [facility] tablet 00:00: MOUTH TWO [place] TIMES Medical DAILY [facility] TOPIRAMATE 2020-0 Yes [id number] TAKE 1 [facility] 25 mg 4-22 TABLET BY [facility] tablet 00:00: MOUTH TWO [place] TIMES Medical DAILY [facility] TOPIRAMATE 2020-0 Yes [id number] TAKE 1 [facility] 25 mg 4-22 TABLET BY [facility] tablet 00:00: MOUTH TWO [place] TIMES Medical DAILY [facility] TOPIRAMATE 2020-0 Yes [id number] TAKE 1 [facility] 25 mg 4-22 TABLET BY [facility] tablet 00:00: MOUTH TWO [place] TIMES Medical DAILY [facility] TOPIRAMATE 2020-0 Yes [id number] TAKE 1 [facility] 25 mg 4-22 TABLET BY [facility] tablet 00:00: MOUTH TWO [place] TIMES Medical DAILY [facility] TOPIRAMATE 2020-0 Yes [id number] TAKE 1 [facility] 25 mg 4-22 TABLET BY [facility] tablet 00:00: MOUTH TWO [place] TIMES Medical DAILY [facility] TOPIRAMATE 2020-0 Yes [id number] TAKE 1 [facility] 25 mg 4-22 TABLET BY [facility] tablet 00:00: MOUTH TWO [place] TIMES Medical DAILY [facility] TOPIRAMATE 2020-0 Yes [id number] TAKE 1 [facility] 25 mg 4-22 TABLET BY [facility] tablet 00:00: MOUTH TWO [place] TIMES Medical DAILY [facility] TOPIRAMATE 2020-0 Yes [id number] TAKE 1 [facility] 25 mg 4-22 TABLET BY [facility] tablet 00:00: MOUTH TWO [place] TIMES Medical DAILY [facility] TOPIRAMATE 2020-0 Yes [id number] TAKE 1 [facility] 25 mg 4-22 TABLET BY [facility] tablet 00:00: MOUTH TWO [place] TIMES Medical DAILY Branch clonazePAM 2020-0 Yes [id number] .5mg Take 1 [facility] 0.5 mg 3-17 tablet by [facility] tablet 00:00: mouth at [place] [address] bedtime. [facility] clonazePAM 2020-0 Yes [id number] .5mg Take 1 [facility] 0.5 mg 3-17 tablet by [facility] tablet 00:00: mouth at [place] [address] bedtime. [facility] clonazePAM 2020-0 Yes [id number] .5mg Take 1 [facility] n[facility] 0.5 mg 3-17 tablet by [facility] tablet 00:00: mouth at [place] [address] bedtime. [facility] clonazePAM 2020-0 Yes [id number] .5mg Take 1 [facility] 0.5 mg 3-17 tablet by [facility] tablet 00:00: mouth at [place] [address] bedtime. [facility] clonazePAM 2020-0 Yes [id number] .5mg Take 1 [facility] 0.5 mg 3-17 tablet by [facility] tablet 00:00: mouth at [place] [address] bedtime. [facility] clonazePAM 2020-0 Yes [id number] .5mg Take 1 [facility] n[facility] 0.5 mg 3-17 tablet by [facility] tablet 00:00: mouth at [place] [address] bedtime. [facility] clonazePAM 2020-0 Yes [id number] .5mg Take 1 [facility] 0.5 mg 3-17 tablet by [facility] tablet 00:00: mouth at [place] [address] bedtime. [facility] clonazePAM 2020-0 Yes [id number] .5mg Take 1 [facility] 0.5 mg 3-17 tablet by [facility] tablet 00:00: mouth at [place] [address] bedtime. [facility] clonazePAM 2020-0 Yes [id number] .5mg Take 1 [facility] n[facility] 0.5 mg 3-17 tablet by [facility] tablet 00:00: mouth at [place] [address] bedtime. [facility] clonazePAM 2020-0 Yes [id number] .5mg Take 1 [facility] n[facility] 0.5 mg 3-17 tablet by [facility] tablet 00:00: mouth at [place] [address] bedtime. [facility] clonazePAM 2020-0 Yes [id number] .5mg Take 1 [facility] n[facility] 0.5 mg 3-17 tablet by [facility] tablet 00:00: mouth at [place] [address] bedtime. [facility] clonazePAM 2020-0 Yes [id number] .5mg Take 1 [facility] n[facility] 0.5 mg 3-17 tablet by [facility] tablet 00:00: mouth at [place] [address] bedtime. [facility] clonazePAM 2020-0 Yes [id number] .5mg Take 1 [facility] n[facility] 0.5 mg 3-17 tablet by [facility] tablet 00:00: mouth at [place] [address] bedtime. [facility] clonazePAM 2020-0 Yes [id number] .5mg Take 1 [facility] n[facility] 0.5 mg 3-17 tablet by [facility] tablet 00:00: mouth at [place] [address] bedtime. [facility] clonazePAM 2020-0 Yes [id number] .5mg Take 1 [facility] 0.5 mg 3-17 tablet by [facility] tablet 00:00: mouth at [place] [address] bedtime. [facility] clonazePAM 2020-0 Yes [id number] .5mg Take 1 [facility] 0.5 mg 3-17 tablet by [facility] tablet 00:00: mouth at [place] [address] bedtime. [facility] clonazePAM 2020-0 Yes [id number] .5mg Take 1 [facility] 0.5 mg 3-17 tablet by [facility] tablet 00:00: mouth at [place] [address] bedtime. [facility] clonazePAM 2020-0 Yes [id number] .5mg Take 1 [facility] 0.5 mg 3-17 tablet by [facility] tablet 00:00: mouth at [place] [address] bedtime. [facility] clonazePAM 2020-0 Yes [id number] .5mg Take 1 [facility] 0.5 mg 3-17 tablet by [facility] tablet 00:00: mouth at [place] [address] bedtime. [facility] clonazePAM 2020-0 Yes [id number] .5mg Take 1 [facility] 0.5 mg 3-17 tablet by [facility] tablet 00:00: mouth at [place] [address] bedtime. [facility] clonazePAM 2020-0 Yes [id number] .5mg Take 1 [facility] 0.5 mg 3-17 tablet by [facility] tablet 00:00: mouth at [place] [address] bedtime. [facility] clonazePAM 2020-0 Yes [id number] .5mg Take 1 [facility] 0.5 mg 3-17 tablet by [facility] tablet 00:00: mouth at [place] [address] bedtime. [facility] clonazePAM 2020-0 Yes [id number] .5mg Take 1 [facility] 0.5 mg 3-17 tablet by [facility] tablet 00:00: mouth at [place] [address] bedtime. [facility] clonazePAM 2020-0 Yes [id number] .5mg Take 1 [facility] 0.5 mg 3-17 tablet by [facility] tablet 00:00: mouth at [place] [address] bedtime. [facility] clonazePAM 2020-0 Yes [id number] .5mg Take 1 U nivers 0.5 mg 3-17 tablet by it[facility] of tablet 00:00: mouth at [place] [address] bedtime. [facility] clonazePAM 2020-0 Yes [id number] .5mg Take 1 [facility] nivers 0.5 mg 3-17 tablet by ity of tablet 00:00: mouth at [place] [address] bedtime. [facility] clonazePAM 2020-0 Yes [id number] .5mg Take 1 [facility] nivers 0.5 mg 3-17 tablet by [facility] of tablet 00:00: mouth at [place] 00 bedtime. [facility] clonazePAM 2020-0 Yes [id number] .5mg Take 1 [facility] nivers 0.5 mg 3-17 tablet by [facility] of tablet 00:00: mouth at [place] 00 bedtime. [facility] clonazePAM 2020-0 Yes [id number] .5mg Take 1 [facility] nivers 0.5 mg 3-17 tablet by it[facility] of tablet 00:00: mouth at [place] 00 bedtime. [facility] clonazePAM 2020-0 Yes [id number] .5mg Take 1 [facility] nivers 0.5 mg 3-17 tablet by [facility] of tablet 00:00: mouth at [place] 00 bedtime. [facility] clonazePAM 2020-0 Yes [id number] .5mg Take 1 [facility] n[facility] 0.5 mg 3-17 tablet by [facility] of tablet 00:00: mouth at [place] 00 bedtime. [facility] clonazePAM 2020-0 Yes [id number] .5mg Take 1 [facility] nivers 0.5 mg 3-17 tablet by [facility] of tablet 00:00: mouth at [place] 00 bedtime. [facility] clonazePAM 2020-0 Yes [id number] .5mg Take 1 [facility] n[facility] 0.5 mg 3-17 tablet by [facility] of tablet 00:00: mouth at [place] 00 bedtime. [facility] divalproex 2020-0 Yes [id number] 500mg Take 2 [facility] 250 mg 2-24 tablets by [facility] of 24 hr 00:00: mouth at [place] tablet 00 bedtime. [facility] divalproex 2020-0 Yes [id number] 500mg Take 2 [facility] ER 250 mg 2-24 tablets by [facility] of 24 hr 00:00: mouth at [place] tablet 00 bedtime. [facility] divalproex 2020-0 Yes [id number] 500mg Take 2 [facility] ER 250 mg 2-24 tablets by [facility] of 24 hr 00:00: mouth at [place] tablet 00 bedtime. [facility] divalproex 2020-0 Yes [id number] 500mg Take 2 [facility] ER 250 mg 2-24 tablets by [facility] of 24 hr 00:00: mouth at [place] tablet 00 bedtime. [facility] divalproex 2020-0 Yes [id number] 500mg Take 2 [facility] ER 250 mg 2-24 tablets by [facility] of 24 hr 00:00: mouth at [place] tablet 00 bedtime. [facility] divalproex 2020-0 Yes [id number] 500mg Take 2 [facility] ER 250 mg 2-24 tablets by [facility] of 24 hr 00:00: mouth at [place] tablet 00 bedtime. [facility] MIRTAZAPINE 2020-0 Yes [id number] TAKE 1 [facility] 7.5 mg 2-14 105 TABLET BY ity of tablet 00:00: MOUTH [place] 00 EVERYDAY Medical AT [facility] MIRTAZAPINE 2020-0 Yes [id number] TAKE 1 [facility] 7.5 mg 2-14 105 TABLET BY ity of tablet 00:00: MOUTH [place] 00 EVERYDAY Medical AT BEDTIME [place] MIRTAZAPINE 2020-0 Yes [id number] TAKE 1 [facility] 7.5 mg 2-14 105 TABLET BY ity of tablet 00:00: MOUTH [place] 00 EVERYDAY Medical AT [facility] MIRTAZAPINE 2020-0 Yes [id number] TAKE 1 [facility] 7.5 mg 2-14 105 TABLET BY ity of tablet 00:00: [facility] 00 EVERYDAY Medical AT [facility] MIRTAZAPINE 2020-0 Yes [id number] TAKE 1 [facility] 7.5 mg 2-14 105 TABLET BY ity of tablet 00:00: MOUTH [place] 00 EVERYDAY Medical AT [facility] MIRTAZAPINE 2020-0 Yes [id number] TAKE 1 [facility] 7.5 mg 2-14 105 TABLET BY ity of tablet 00:00: MOUTH [place] 00 EVERYDAY Medical AT [facility] MIRTAZAPINE 2020-0 Yes [id number] TAKE 1 [facility] 7.5 mg 2-14 105 TABLET BY ity of tablet 00:00: MOUTH [place] 00 EVERYDAY Medical AT [facility] MIRTAZAPINE 2020-0 Yes [id number] TAKE 1 [facility] 7.5 mg 2-14 105 TABLET BY it[facility] tablet 00:00: MOUTH [place] [facility]0 Yes [id number] TAKE 1 [facility] 7.5 mg 2-14 105 TABLET BY ity of tablet 00:00: MOUTH [place] 00 [facility] 2020-0 Yes [id number] TAKE 1 [facility] 7.5 mg 2-14 105 TABLET BY ity of tablet 00:00: MOUTH [place] 00 EVERYDAY Medical AT [facility] rivaroxaban 2020-0 Yes Take by Un jhonatan [...] tablet 27 Medical Branch mirtazapine 2020-0 Yes [id number] 7.5mg Take 1 [facility] 7.5 mg 1-23 105 tablet by it[facility] of tablet 00:00: mouth at [place] 00 bedtime. [facility] Branch clonazePAM 2020-0 Yes [id number] .5mg Take 1 [facility] nivers 0.5 mg 1-23 tablet by it[facility] of tablet 00:00: mouth at [place] 00 bedtime. [facility] paliperidon 2020-0 Yes [id number] TAKE 1 [facility] e 3 mg 24 1-23 TABLET BY ity o f hour tablet 00:00: MOUTH ONCE [place] 00 DAILY Medical Branch mirtazapine 2020-0 Yes [id number] 7.5mg Take 1 [facility] 7.5 mg 1-23 105 tablet by it[facility] of tablet 00:00: mouth at [place] [address] bedtime. [facility] clonazePAM 2020-0 Yes [id number] .5mg Take 1 [facility] nivers 0.5 mg 1-23 tablet by it[facility] of tablet 00:00: mouth at [place] [address] bedtime. Medical [facility] paliperidon 2020-0 Yes [id number] TAKE 1 [facility] e 3 mg 24 1-23 TABLET BY ity o f hour tablet 00:00: MOUTH ONCE [place] 00 DAILY Medical Branch mirtazapine 2020-0 Yes [id number] 7.5mg Take 1 [facility] 7.5 mg 1-23 105 tablet by it[facility] of tablet 00:00: mouth at [place] [address] bedtime. [facility] Branch clonazePAM 2020-0 Yes [id number] .5mg Take 1 [facility] nivers 0.5 mg 1-23 tablet by ity of tablet 00:00: mouth at [place] 00 bedtime. [facility] paliperidon 2020-0 Yes [id number] TAKE 1 [facility] e 3 mg 24 1-23 TABLET BY ity o f hour tablet 00:00: MOUTH ONCE [place] 00 DAILY Medical Branch mirtazapine 2020-0 Yes [id number] 7.5mg Take 1 [facility] 7.5 mg 1-23 105 tablet by ity of tablet 00:00: mouth at [place] [address] bedtime. [facility] clonazePAM 2020-0 Yes [id number] .5mg Take 1 [facility] nivers 0.5 mg 1-23 tablet by ity of tablet 00:00: mouth at [place] 00 bedtime. [facility] paliperidon 2020-0 Yes [id number] TAKE 1 [facility] e 3 mg 24 1-23 TABLET BY ity o f hour tablet 00:00: MOUTH ONCE DAILY Medical Branch clonazePAM 2020-0 Yes [id number] .5mg Take 1 [facility] nivers 0.5 mg 1-23 tablet by ity of tablet 00:00: mouth at [place] 00 bedtime. [facility] paliperidon 2020-0 Yes [id number] TAKE 1 [facility] e 3 mg 24 1-23 TABLET BY ity o f hour tablet 00:00: MOUTH ONCE DAILY Medical Branch clonazePAM 2019-0 Yes [id number] .5mg Take 1 [facility] nivers 0.5 mg 1-23 tablet by ity of tablet 00:00: mouth at [place] [address] bedtime. Medical [facility] paliperidon 2019-0 Yes [id number] TAKE 1 [facility] e 3 mg 24 1-23 TABLET BY ity o f hour tablet 00:00: MOUTH ONCE DAILY Medical Branch paliperidon 2020-0 Yes [id number] TAKE 1 [facility] e 3 mg 24 1-23 TABLET BY ity o f hour tablet 00:00: MOUTH ONCE DAILY Medical Branch paliperidon 2020-0 Yes [id number] TAKE 1 [facility] e 3 mg 24 1-23 TABLET BY ity o f hour tablet 00:00: MOUTH ONCE DAILY Medical Branch paliperidon 2020-0 Yes [id number] TAKE 1 [facility] e 3 mg 24 1-23 TABLET BY ity o f hour tablet 00:00: MOUTH ONCE DAILY Medical Branch paliperidon 2020-0 Yes [id number] TAKE 1 [facility] e 3 mg 24 1-23 TABLET BY ity o f hour tablet 00:00: MOUTH ONCE DAILY Medical Branch paliperidon 2020-0 Yes [id number] TAKE 1 [facility] e 3 mg 24 1-23 TABLET BY ity o f hour tablet 00:00: MOUTH ONCE DAILY Medical Branch paliperidon 2020-0 Yes [id number] TAKE 1 [facility] e 3 mg 24 1-23 TABLET BY ity o f hour tablet 00:00: MOUTH ONCE DAILY Medical Branch propranolol 2019- Yes [id number] 10mg Take 1 [facility] 10 mg 1-22 tablet by ity of tablet 00:00: mouth 2 (two) Medical times Branch daily as needed (tremor). propranolol 2018-05 Yes [id number] 10mg Take 1 [facility] 10 mg 1-22 tablet by ity of tablet 00:00: mouth 2 00 (two) Medical times Branch daily as needed (tremor). propranolol 2018-05 Yes [id number] 10mg Take 1 [facility] 10 mg 1-22 tablet by ity of tablet 00:00: mouth 2 00 (two) Medical times Branch daily as needed (tremor). propranolol 2018-05 Yes [id number] 10mg Take 1 [facility] 10 mg 1-22 tablet by ity of tablet 00:00: mouth 2 00 (two) Medical times Branch daily as needed (tremor). propranolol 2018-05 Yes [id number] 10mg Take 1 [facility] 10 mg 1-22 tablet by ity of tablet 00:00: mouth 2 (two) Medical times Branch daily as needed (tremor). propranolol 2018-05 Yes [id number] 10mg Take 1 [facility] 10 mg 1-22 tablet by ity of tablet 00:00: mouth 2 (two) Medical times Branch daily as needed (tremor). propranolol 2018-05 Yes [id number] 10mg Take 1 [facility] 10 mg 1-22 tablet by ity of tablet 00:00: mouth 2 (two) Medical times Branch daily as needed (tremor). propranolol 2018-05 Yes [id number] 10mg Take 1 [facility] 10 mg 1-22 tablet by ity of tablet 00:00: mouth 2 (two) Medical times Branch daily as needed (tremor). propranolol 2018-05 Yes [id number] 10mg Take 1 [facility] 10 mg 1-22 tablet by ity of tablet 00:00: mouth 2 00 (two) Medical times Branch daily as needed (tremor). propranolol 2018-05 Yes [id number] 10mg Take 1 [facility] 10 mg 1-22 tablet by ity of tablet 00:00: mouth 2 00 (two) Medical times Branch daily as needed (tremor). propranolol 2018-05 Yes [id number] 10mg Take 1 [facility] 10 mg 1-22 tablet by ity of tablet 00:00: mouth 2 00 (two) Medical times Branch daily as needed (tremor). propranolol 2018-05 Yes [id number] 10mg Take 1 [facility] 10 mg 1-22 tablet by ity of tablet 00:00: mouth 2 00 (two) Medical times Branch daily as needed (tremor). propranolol 2018-05 Yes [id number] 10mg Take 1 [facility] 10 mg 1-22 tablet by ity of tablet 00:00: mouth 2 00 (two) Medical times Branch daily as needed (tremor). propranolol 2018-05 Yes [id number] 10mg Take 1 [facility] 10 mg 1-22 tablet by ity of tablet 00:00: mouth 2 00 (two) Medical times Branch daily as needed (tremor). propranolol 2018-05 Yes [id number] 10mg Take 1 [facility] 10 mg 1-22 tablet by ity of tablet 00:00: mouth 2 00 (two) Medical times Branch daily as needed (tremor). propranolol 2018-05 Yes [id number] 10mg Take 1 [facility] 10 mg 1-22 tablet by ity of tablet 00:00: mouth 2 00 (two) Medical times Branch daily as needed (tremor). propranolol 2018-05 Yes [id number] 10mg Take 1 [facility] 10 mg 1-22 tablet by ity of tablet 00:00: mouth 2 (two) Medical times Branch daily as needed (tremor). propranolol 2018-05 Yes [id number] 10mg Take 1 [facility] 10 mg 1-22 tablet by ity of tablet 00:00: mouth 2 00 (two) Medical times Branch daily as needed (tremor). propranolol 2018-05 Yes [id number] 10mg Take 1 [facility] 10 mg 1-22 tablet by ity of tablet 00:00: mouth 2 00 (two) Medical times Branch daily as needed (tremor). propranolol 2018-05 Yes [id number] 10mg Take 1 [facility] 10 mg 1-22 tablet by ity of tablet 00:00: mouth 2 00 (two) Medical times Branch daily as needed (tremor). propranolol 2018-05 Yes [id number] 10mg Take 1 [facility] 10 mg 0-25 tablet by ity of tablet 00:00: mouth [place] 00 daily. Medical Branch propranolol 2018-05 Yes [id number] 10mg Take 1 [facility] 10 mg 0-25 [...] 15:21: [place] tablet Medical Branch divalproex Yes [id number] 500mg Take 2 [facility] ER 250 mg 9-10 tablets by ity of 24 hr 00:00: mouth at [place] tablet 00 bedtime. Medical Branch divalproex Yes [id number] 500mg Take 2 [facility] ER 250 mg 9-10 tablets by ity of 24 hr 00:00: mouth at [place] tablet 00 bedtime. [facility] Branch divalproex Yes [id number] 500mg Take 2 [facility] ER 250 mg 9-10 tablets by ity of 24 hr 00:00: mouth at [place] tablet 00 bedtime. Medical Branch divalproex Yes [id number] 500mg Take 2 [facility] ER 250 mg 9-10 tablets by ity of 24 hr 00:00: mouth at [place] tablet 00 bedtime. [facility] Branch divalproex Yes [id number] 500mg Take 2 [facility] ER 250 mg 9-10 tablets by ity of 24 hr 00:00: mouth at [place] tablet 00 bedtime. Medical Branch divalproex Yes [id number] 500mg Take 2 [facility] ER 250 mg 9-10 tablets by ity of 24 hr 00:00: mouth at [place] tablet 00 bedtime. [facility] divalproex Yes [id number] 500mg Take 2 [facility] ER 250 mg 9-10 tablets by ity of 24 hr 00:00: mouth at [place] tablet 00 bedtime. Medical Branch divalproex 2019-0 Yes [id number] 500mg Take 2 [facility] ER 250 mg 9-10 tablets by ity of 24 hr 00:00: mouth at [place] tablet 00 bedtime. [facility] divalproex 2018-0 Yes [id number] 500mg Take 2 [facility] ER 250 mg 9-10 tablets by ity of 24 hr 00:00: mouth at [place] tablet 00 bedtime. [facility] divalproex 2018- Yes [id number] 500mg Take 2 [facility] ER 250 mg 9-10 tablets by ity of 24 hr 00:00: mouth at [place] tablet 00 bedtime. [facility] divalproex Yes [id number] 500mg Take 2 [facility] ER 250 mg 9-10 tablets by ity of 24 hr 00:00: mouth at [place] tablet 00 bedtime. [facility] divalproex Yes [id number] 500mg Take 2 [facility] ER 250 mg 9-10 tablets by ity of 24 hr 00:00: mouth at [place] tablet 00 bedtime. [facility] divalproex Yes [id number] 500mg Take 2 [facility] ER 250 mg 9-10 tablets by ity of 24 hr 00:00: mouth at [place] tablet 00 bedtime. [facility] divalproex Yes [id number] 500mg Take 2 [facility] ER 250 mg 9-10 tablets by ity of 24 hr 00:00: mouth at [place] tablet 00 bedtime. [facility] divalproex Yes [id number] 500mg Take 2 [facility] ER 250 mg 9-10 tablets by ity of 24 hr 00:00: mouth at [place] tablet 00 bedtime. [facility] divalproex Yes [id number] 500mg Take 2 [facility] ER 250 mg 9-10 tablets by ity of 24 hr 00:00: mouth at [place] tablet 00 bedtime. [facility] divalproex Yes [id number] 500mg Take 2 [facility] ER 250 mg 9-10 tablets by ity of 24 hr 00:00: mouth at [place] tablet 00 bedtime. [facility] divalproex 0 Yes [id number] 500mg Take 2 [facility] ER 250 mg 9-10 tablets by ity of 24 hr 00:00: mouth at [place] tablet 00 bedtime. [facility] divalproex 2018- Yes [id number] 500mg Take 2 [facility] ER 250 mg 9-10 tablets by ity of 24 hr 00:00: mouth at [place] tablet 00 bedtime. [facility] divalproex 2019-0 Yes [id number] 500mg Take 2 [facility] ER 250 mg 9-10 tablets by ity of 24 hr 00:00: mouth at [place] tablet 00 bedtime. [facility] divalproex 2019-0 Yes [id number] 500mg Take 2 [facility] ER 250 mg 9-10 tablets by ity of 24 hr 00:00: mouth at [place] tablet 00 bedtime. [facility] Branch TOPIRAMATE 2019-0 Yes [id number] TAKE 1 [facility] 25 mg 8-28 TABLET BY ity of tablet 00:00: MOUTH TWO [place] TIMES Medical DAILY Branch TOPIRAMATE 2018-0 Yes [id number] TAKE 1 [facility] 25 mg 8-28 TABLET BY ity of tablet 00:00: MOUTH TWO [place] Medical DAILY Branch TOPIRAMATE 2018-0 Yes [id number] TAKE 1 [facility] 25 mg 8-28 TABLET BY ity of tablet 00:00: MOUTH TWO [place] Medical DAILY Branch TOPIRAMATE 2018-0 Yes [id number] TAKE 1 [facility] 25 mg 8-28 TABLET BY ity of tablet 00:00: MOUTH TWO [place] Medical DAILY Branch TOPIRAMATE 2018-0 Yes [id number] TAKE 1 [facility] 25 mg 8-28 TABLET BY ity of tablet 00:00: MOUTH TWO [place] Medical DAILY Branch TOPIRAMATE 2019-0 Yes [id number] TAKE 1 [facility] 25 mg 8-28 TABLET BY ity of tablet 00:00: MOUTH [facility] Medical DAILY Branch TOPIRAMATE 2019-0 Yes [id number] TAKE 1 [facility] 25 mg 8-28 TABLET BY ity of tablet 00:00: MOUTH TWO [place] Medical DAILY Branch TOPIRAMATE 2019-0 Yes [id number] TAKE 1 [facility] 25 mg 8-28 TABLET BY ity of tablet 00:00: MOUTH TWO [place] Medical DAILY Branch TOPIRAMATE 2019-0 Yes [id number] TAKE 1 [facility] 25 mg 8-28 TABLET BY ity of tablet 00:00: MOUTH TWO [place] Medical DAILY Branch TOPIRAMATE 2018-0 Yes [id number] TAKE 1 [facility] 25 mg 8-28 TABLET BY ity of tablet 00:00: MOUTH TWO [place] Medical DAILY Branch TOPIRAMATE 2018-0 Yes [id number] TAKE 1 [facility] 25 mg 8-28 TABLET BY ity of tablet 00:00: MOUTH TWO [place] Medical DAILY Branch TOPIRAMATE 20190 Yes [id number] TAKE 1 [facility] 25 mg 8-28 TABLET BY ity of tablet 00:00: MOUTH TWO [place] Medical DAILY Branch TOPIRAMATE Yes [id number] TAKE 1 [facility] 25 mg 8-28 TABLET BY ity of tablet 00:00: MOUTH TWO [place] Medical DAILY Branch TOPIRAMATE Yes [id number] TAKE 1 [facility] 25 mg 8-28 TABLET BY ity of tablet 00:00: MOUTH TWO [place] Medical DAILY Branch TOPIRAMATE Yes [id number] TAKE 1 [facility] 25 mg 8-28 TABLET BY ity of tablet 00:00: MOUTH TWO [place] Medical DAILY Branch TOPIRAMATE Yes [id number] TAKE 1 [facility] 25 mg 8-28 TABLET BY ity of tablet 00:00: MOUTH TWO [place] Medical DAILY Branch TOPIRAMATE Yes [id number] TAKE 1 [facility] 25 mg 8-28 TABLET BY ity of tablet 00:00: MOUTH TWO [place] Medical DAILY Branch TOPIRAMATE 2020- No [id number] TAKE 1 [facility] 25 mg 8-28 04- TABLET BY ity of tablet 00:00: 00:00 MOUTH TWO [place] 00 : Medical DAILY Branch paliperidon 0 Yes [id number] TAKE 1 [facility] e 3 mg 24 8-07 TABLET BY ity o f hour tablet 00:00: MOUTH ONCE [place] [facility] Branch PALIPERIDON 20190 Yes [id number] TAKE 1 [facility] E 3 mg 24 8-07 TABLET BY ity o f hour tablet 00:00: MOUTH ONCE Medical Branch paliperidon 20190 Yes [id number] TAKE 1 [facility] e 3 mg 24 8-07 TABLET BY ity o f hour tablet 00:00: MOUTH ONCE [place] DAILY Medical Branch PALIPERIDON 2019-0 Yes [id number] TAKE 1 [facility] E 3 mg 24 8-07 TABLET BY ity o f hour tablet 00:00: MOUTH ONCE [place] DAILY Medical Branch paliperidon 2018-0 Yes [id number] TAKE 1 [facility] e 3 mg 24 8-07 TABLET BY ity o f hour tablet 00:00: MOUTH ONCE [place] DAILY Medical Branch PALIPERIDON 0 Yes [id number] TAKE 1 [facility] E 3 mg 24 8-07 TABLET BY ity o f hour tablet 00:00: MOUTH ONCE DAILY Medical Branch paliperidon 2019- Yes [id number] TAKE 1 [facility] e 3 mg 24 8-07 TABLET BY ity o f hour tablet 00:00: MOUTH ONCE DAILY Medical Branch PALIPERIDON 2019 Yes [id number] TAKE 1 [facility] E 3 mg 24 8-07 TABLET BY ity o f hour tablet 00:00: MOUTH ONCE DAILY Medical Branch paliperidon 2019 Yes [id number] TAKE 1 [facility] e 3 mg 24 8-07 TABLET BY ity o f hour tablet 00:00: MOUTH ONCE DAILY Medical Branch PALIPERIDON 2019 Yes [id number] TAKE 1 [facility] E 3 mg 24 8-07 TABLET BY ity o f hour tablet 00:00: MOUTH ONCE DAILY Medical Branch paliperidon 2019- Yes [id number] TAKE 1 [facility] e 3 mg 24 8-07 TABLET BY ity o f hour tablet 00:00: MOUTH ONCE DAILY Medical Branch PALIPERIDON 2019 Yes [id number] TAKE 1 [facility] E 3 mg 24 8-07 TABLET BY ity o f hour tablet 00:00: MOUTH ONCE DAILY Medical Branch paliperidon 2019 Yes [id number] TAKE 1 [facility] e 3 mg 24 8-07 TABLET BY ity o f hour tablet 00:00: MOUTH ONCE DAILY Medical Branch PALIPERIDON 2019- Yes [id number] TAKE 1 [facility] E 3 mg 24 8-07 TABLET BY ity o f hour tablet 00:00: MOUTH ONCE DAILY Medical Branch paliperidon 2019 Yes [id number] TAKE 1 [facility] e 3 mg 24 8-07 TABLET BY ity o f hour tablet 00:00: MOUTH ONCE DAILY Medical Branch PALIPERIDON 2019 Yes [id number] TAKE 1 [facility] E 3 mg 24 8-07 TABLET BY ity o f hour tablet 00:00: MOUTH ONCE DAILY Medical Branch paliperidon 2019- Yes [id number] TAKE 1 [facility] e 3 mg 24 8-07 TABLET BY ity o f hour tablet 00:00: MOUTH ONCE DAILY Medical Branch PALIPERIDON 2019 Yes [id number] TAKE 1 [facility] E 3 mg 24 8-07 TABLET BY ity o f hour tablet 00:00: MOUTH ONCE DAILY Medical Branch paliperidon 2019 Yes [id number] TAKE 1 [facility] e 3 mg 24 8-07 TABLET BY ity o f hour tablet 00:00: MOUTH ONCE DAILY Medical Branch PALIPERIDON Yes [id number] TAKE 1 [facility] E 3 mg 24 8-07 TABLET BY ity o f hour tablet 00:00: MOUTH ONCE DAILY Medical Branch paliperidon Yes [id number] TAKE 1 [facility] e 3 mg 24 8-07 TABLET BY ity o f hour tablet 00:00: MOUTH ONCE DAILY Medical Branch PALIPERIDON Yes [id number] TAKE 1 [facility] E 3 mg 24 8-07 TABLET BY ity o f hour tablet 00:00: MOUTH ONCE DAILY Medical Branch paliperidon Yes [id number] TAKE 1 [facility] e 3 mg 24 8-07 TABLET BY ity o f hour tablet 00:00: MOUTH ONCE DAILY Medical Branch PALIPERIDON Yes [id number] TAKE 1 [facility] E 3 mg 24 8-07 TABLET BY ity o f hour tablet 00:00: MOUTH ONCE DAILY Medical Branch paliperidon Yes [id number] TAKE 1 [facility] e 3 mg 24 8-07 TABLET BY ity o f hour tablet 00:00: MOUTH ONCE DAILY Medical Branch paliperidon Yes [id number] TAKE 1 [facility] e 3 mg 24 8-07 TABLET BY ity o f hour tablet 00:00: MOUTH ONCE DAILY Medical Branch paliperidon Yes [id number] TAKE 1 [facility] e 3 mg 24 8-07 TABLET BY ity o f hour tablet 00:00: MOUTH ONCE DAILY Medical Branch paliperidon Yes [id number] TAKE 1 [facility] e 3 mg 24 8-07 TABLET BY ity o f hour tablet 00:00: MOUTH ONCE DAILY Medical Branch PALIPERIDON Yes [id number] TAKE 1 [facility] E 3 mg 24 8-07 TABLET BY ity o f hour tablet 00:00: MOUTH ONCE DAILY Medical Branch clonazePAM Yes [id number] .5mg Take 2 [facility] 0.25 mg 7-26 105 tablets by ity of disintegrat 00:00: mouth at [place] tablet 00 bedtime. Medic al Branch clonazePAM Yes [id number] .5mg Take 2 [facility] 0.25 mg 7-26 105 tablets by ity of disintegrat 00:00: mouth at [place] tablet 00 bedtime. [facility] al Branch clonazePAM 2019-0 Yes [id number] .5mg Take 2 [facility] 0.25 mg 7-26 105 tablets by ity of disintegrat 00:00: mouth at [place] tablet 00 bedtime. [facility] Branch clonazePAM 2019-0 Yes [id number] .5mg Take 2 [facility] 0.25 mg 7-26 105 tablets by ity of disintegrat 00:00: mouth at [place] tablet 00 bedtime. [facility] al Branch clonazePAM 2019-0 Yes [id number] .5mg Take 2 [facility] 0.25 mg 7-26 105 tablets by ity of disintegrat 00:00: mouth [place] tablet 00 bedtime. [facility] Branch clonazePAM 2019-0 Yes [id number] .5mg Take 2 [facility] 0.25 mg 7-26 105 tablets by ity of disintegrat 00:00: mouth at [place] tablet 00 bedtime. [facility] Branch clonazePAM 2019-0 Yes [id number] .5mg Take 2 [facility] 0.25 mg 7-26 105 tablets by ity of disintegrat 00:00: mouth at [place] tablet 00 bedtime. [facility] Branch clonazePAM 2019-0 Yes [id number] .5mg Take 2 [facility] 0.25 mg 7-26 105 tablets by ity of disintegrat 00:00: mouth at [place] tablet 00 bedtime. [facility] Branch clonazePAM 2019-0 Yes [id number] .5mg Take 2 [facility] 0.25 mg 7-26 105 tablets by ity of disintegrat 00:00: mouth at [place] tablet 00 bedtime. [facility] Branch clonazePAM 2019-0 Yes [id number] .5mg Take 2 [facility] 0.25 mg 7-26 105 tablets by ity of disintegrat 00:00: mouth at [place] tablet 00 bedtime. [facility] Branch clonazePAM 2019-0 Yes [id number] .5mg Take 2 [facility] 0.25 mg 7-26 105 tablets by ity of disintegrat 00:00: mouth at [place] tablet 00 bedtime. [facility] Branch clonazePAM 2019-0 Yes [id number] .5mg Take 2 [facility] 0.25 mg 7-26 105 tablets by ity of disintegrat 00:00: mouth at [place] tablet 00 bedtime. [facility] Branch clonazePAM 2019-0 Yes [id number] .5mg Take 2 [facility] 0.25 mg 7-26 105 tablets by ity of disintegrat 00:00: mouth at [place] tablet 00 bedtime. [facility] Branch clonazePAM 2019-0 Yes [id number] .5mg Take 2 [facility] 0.25 mg 7-26 105 tablets by ity of disintegrat 00:00: mouth at [place] tablet 00 bedtime. [facility] Branch clonazePAM 2019-0 Yes [id number] .5mg Take 2 [facility] 0.25 mg 7-26 105 tablets by ity of disintegrat 00:00: mouth at [place] tablet 00 bedtime. [facility] Branch clonazePAM 2019-0 Yes [id number] .5mg Take 2 [facility] 0.25 mg 7-26 105 tablets by ity of disintegrat 00:00: mouth [place] tablet 00 bedtime. [facility] spironolact 2019-0 Yes Univer s one 25 mg 4-11 ity of tablet 00:00: [address] spironolact 2019-0 Yes Univer s one 25 mg 4-11 ity of tablet 00:00: [address] spironolact 2019-0 Yes Univer s one 25 mg 4-11 ity of tablet 00:00: [address] spironolact 2019-0 Yes Univer s one 25 mg 4-11 ity of tablet 00:00: [address] spironolact 2019-0 Yes Univer s one 25 mg 4-11 ity of tablet 00:00: [address] spironolact 2019-0 Yes Univer s one 25 mg 4-11 ity of tablet 00:00: [address] spironolact 2019-0 Yes Univer s one 25 mg 4-11 ity of tablet 00:00: [address] spironolact 2019-0 Yes Univer s one 25 mg 4-11 ity of tablet 00:00: [address] spironolact 2019-0 Yes Univer s one 25 mg 4-11 ity of tablet 00:00: [address] spironolact 2019-0 Yes Univer s one 25 mg 4-11 ity of tablet 00:00: [place] 00 Medical Branch spironolact 2019-0 Yes Univer s one 25 mg 4-11 ity of tablet 00:00: [place] 00 Medical Branch spironolact 2019-0 Yes Univer s one 25 mg 4-11 ity of tablet 00:00: [place] 00 Medical Branch spironolact 2019-0 Yes Univer s one 25 mg 4-11 ity of tablet 00:00: [place] 00 Medical Branch spironolact 2019-0 Yes Univer s one 25 mg 4-11 ity of tablet 00:00: [place] 00 Medical Branch spironolact 2019-0 Yes Univer s one 25 mg 4-11 ity of tablet 00:00: [place] [address] Medical Branch spironolact 2019-0 Yes Univer s one 25 mg 4-11 ity of tablet 00:00: [place] [address] Medical Branch spironolact 2019-0 Yes Univer s one 25 mg 4-11 ity of tablet 00:00: [place] [address] Medical Branch spironolact 2019-0 Yes Univer s one 25 mg 4-11 ity of tablet 00:00: [place] [address] Medical Branch spironolact 2019-0 Yes Univer s one 25 mg 4-11 ity of tablet 00:00: [place] [address] Medical Branch spironolact 2019-0 Yes Univer s one 25 mg 4-11 ity of tablet 00:00: [place] [address] [facility] spironolact 2019-0 Yes Univer s one 25 mg 4-11 ity of tablet 00:00: [place] [address] [facility] spironolact 2019-0 Yes Univer s one 25 mg 4-11 ity of tablet 00:00: [place] [facility] spironolact 2019-0 Yes Univer s one 25 mg 4-11 ity of tablet 00:00: [place] [address] [facility] spironolact 2019-0 Yes Univer s one 25 mg 4-11 ity of tablet 00:00: [place] [address] [facility] spironolact 2019-0 Yes Univer s one 25 mg 4-11 ity of tablet 00:00: [place] [address] [facility] spironolact 2019-0 Yes Univer s one 25 mg 4-11 ity of tablet 00:00: [place] [address] [facility] spironolact 2019-0 Yes Univer s one 25 mg 4-11 ity of tablet 00:00: [place] 00 [facility] spironolact 2019-0 Yes Univer s one 25 mg 4-11 ity of tablet 00:00: [place] 00 [facility] spironolact 2019-0 Yes Univer s one 25 mg 4-11 ity of tablet 00:00: [place] 00 [facility] spironolact 2019-0 Yes Univer s one 25 mg 4-11 ity of tablet 00:00: [place] 00 [facility] spironolact 2019-0 Yes Univer s one 25 mg 4-11 ity of tablet 00:00: [place] 00 [facility] spironolact 2019-0 Yes Univer s one 25 mg 4-11 ity of tablet 00:00: [place] [address] [facility] spironolact 2019-0 Yes Univer s one 25 mg 4-11 ity of tablet 00:00: [place] [address] [facility] spironolact 2019-0 Yes Univer s one 25 mg 4-11 ity of tablet 00:00: [place] [address] [facility] spironolact 2019-0 Yes Univer s one 25 mg 4-11 ity of tablet 00:00: [place] 00 [facility] spironolact 2019-0 Yes Univer s one 25 mg 4-11 ity of tablet 00:00: [place] [address] [facility] spironolact 2019-0 Yes Univer s one 25 mg 4-11 ity of tablet 00:00: [place] 00 [facility] spironolact 2019-0 Yes Univer s one 25 mg 4-11 ity of tablet 00:00: [place] [address] [facility] spironolact 2019-0 Yes Univer s one 25 mg 4-11 ity of tablet 00:00: [place] 00 [facility] spironolact 2019-0 Yes Univer s one 25 mg 4-11 ity of tablet 00:00: [place] 00 [facility] spironolact 2019-0 Yes Univer s one 25 mg 4-11 ity of tablet 00:00: [place] 00 [facility] spironolact 2019-0 Yes Univer s one 25 mg 4-11 ity of tablet 00:00: [place] 00 [facility] spironolact 2019-0 Yes Univer s one 25 mg 4-11 ity of tablet 00:00: [place] [address] [facility] spironolact 2019-0 Yes Univer s one 25 mg 4-11 ity of tablet 00:00: [place] 00 [facility] spironolact 2019-0 Yes Univer s one 25 mg 4-11 ity of tablet 00:00: [place] 00 [facility] spironolact 2019-0 Yes Univer s one 25 mg 4-11 ity of tablet 00:00: [place] 00 [facility] spironolact 2019-0 Yes Univer s one 25 mg 4-11 ity of tablet 00:00: [place] 00 [facility] spironolact 2019-0 Yes Univer s one 25 mg 4-11 ity of tablet 00:00: [place] 00 [facility] spironolact 2019-0 Yes Univer s one 25 mg 4-11 ity of tablet 00:00: [place] [address] [facility] spironolact 2019-0 Yes Univer s one 25 mg 4-11 ity of tablet 00:00: [place] 00 [facility] spironolact 2019-0 Yes Univer s one 25 mg 4-11 ity of tablet 00:00: [place] [address] [facility] spironolact 2019-0 Yes Univer s one 25 mg 4-11 ity of tablet 00:00: [place] 00 [facility] spironolact 2019-0 Yes Univer s one 25 mg 4-11 ity of tablet 00:00: [place] [address] [facility] spironolact 2019-0 Yes Univer s one 25 mg 4-11 ity of tablet 00:00: [place] 00 [facility] spironolact 2019-0 Yes Univer s one 25 mg 4-11 ity of tablet 00:00: [place] 00 [facility] spironolact 2019-0 Yes Univer s one 25 mg 4-11 ity of tablet 00:00: [place] 00 [facility] spironolact 2019-0 Yes Univer s one 25 mg 4-11 ity of tablet 00:00: [place] 00 [facility] spironolact 2019-0 Yes Univer s one 25 mg 4-11 ity of tablet 00:00: [place] 00 [facility] spironolact 2019-0 Yes Univer s one 25 mg 4-11 ity of tablet 00:00: [place] 00 [facility] spironolact 2019-0 Yes Univer s one 25 mg 4-11 ity of tablet 00:00: [place] [address] [facility] spironolact 2019-0 Yes Univer s one 25 mg 4-11 ity of tablet 00:00: [place] 00 [facility] spironolact 2019-0 Yes Univer s one 25 mg 4-11 ity of tablet 00:00: [place] 00 [facility] spironolact 2019-0 Yes Univer s one 25 mg 4-11 ity of tablet 00:00: [place] 00 [facility] spironolact 2019-0 Yes Univer s one 25 mg 4-11 ity of tablet 00:00: [place] 00 [facility] spironolact 2019-0 Yes Univer s one 25 mg 4-11 ity of tablet 00:00: [place] 00 [facility] spironolact 2019-0 Yes Univer s one 25 mg 4-11 ity of tablet 00:00: [place] 00 [facility] spironolact 2019-0 Yes Univer s one 25 mg 4-11 ity of tablet 00:00: [place] [address] [facility] spironolact 2019-0 Yes Univer s one 25 mg 4-11 ity of tablet 00:00: [place] [address] [facility] spironolact 2019-0 Yes Univer s one 25 mg 4-11 ity of tablet 00:00: [place] [address] [facility] spironolact 2019-0 Yes Univer s one 25 mg 4-11 ity of tablet 00:00: [place] [address] [facility] spironolact 2019-0 Yes Univer s one 25 mg 4-11 ity of tablet 00:00: [place] [address] [facility] spironolact 2019-0 Yes Univer s one 25 mg 4-11 ity of tablet 00:00: [place] 00 [facility] spironolact 2019-0 Yes Univer s one 25 mg 4-11 ity of tablet 00:00: [place] 00 [facility] spironolact 2019-0 Yes Univer s one 25 mg 4-11 ity of tablet 00:00: [place] 00 [facility] spironolact 2019-0 Yes Univer s one 25 mg 4-11 ity of tablet 00:00: [place] 00 [facility] spironolact 2019-0 Yes Univer s one 25 mg 4-11 ity of tablet 00:00: [place] 00 [facility] spironolact 2019-0 Yes Univer s one 25 mg 4-11 ity of tablet 00:00: [place] 00 [facility] spironolact 2019-0 Yes Univer s one 25 mg 4-11 ity of tablet 00:00: [place] 00 [facility] spironolact 2019-0 Yes Univer s one 25 mg 4-11 ity of tablet 00:00: [place] [facility] spironolact 2019-0 Yes Univer s one 25 mg 4-11 ity of tablet 00:00: [place] [facility] tamsulosin 2019-0 Yes Univers 0.4 mg 24 4-09 ity of hr capsule 00:00: [place] [facility] tamsulosin 2019-0 Yes Univers 0.4 mg 24 4-09 ity of hr capsule 00:00: [place] [facility] tamsulosin 2019-0 Yes Univers 0.4 mg 24 4-09 ity of hr capsule 00:00: [place] [facility] tamsulosin 2019-0 Yes Univers 0.4 mg 24 4-09 ity of hr capsule 00:00: [place] [facility] tamsulosin 2019-0 Yes Univers 0.4 mg 24 4-09 ity of hr capsule 00:00: [place] [facility] tamsulosin 2019-0 Yes Univers 0.4 mg 24 4-09 ity of hr capsule 00:00: [place] [facility] tamsulosin 2019-0 Yes Univers 0.4 mg 24 4-09 ity of hr capsule 00:00: [place] [facility] tamsulosin 2019-0 Yes Univers 0.4 mg 24 4-09 ity of hr capsule 00:00: [place] [facility] tamsulosin 2019-0 Yes Univers 0.4 mg 24 4-09 ity of hr capsule 00:00: [place] [facility] tamsulosin 2019-0 Yes Univers 0.4 mg 24 4-09 ity of hr capsule 00:00: [place] [facility] tamsulosin 2019-0 Yes Univers 0.4 mg 24 4-09 ity of hr capsule 00:00: [place] [facility] tamsulosin 2019-0 Yes Univers 0.4 mg 24 4-09 ity of hr capsule 00:00: [place] [facility] tamsulosin 2019-0 Yes Univers 0.4 mg 24 4-09 ity of hr capsule 00:00: [place] [facility] tamsulosin 2019-0 Yes Univers 0.4 mg 24 4-09 ity of hr capsule 00:00: [place] [facility] tamsulosin 2019-0 Yes Univers 0.4 mg 24 4-09 ity of hr capsule 00:00: [place] [address] [facility] tamsulosin 2019-0 Yes Univers 0.4 mg 24 4-09 ity of hr capsule 00:00: [place] [address] [facility] tamsulosin 2019-0 Yes Univers 0.4 mg 24 4-09 ity of hr capsule 00:00: [place] [facility] tamsulosin 2019-0 Yes Univers 0.4 mg 24 4-09 ity of hr capsule 00:00: [place] [facility] tamsulosin 2019-0 Yes Univers 0.4 mg 24 4-09 ity of hr capsule 00:00: [place] [facility] tamsulosin 2019-0 Yes Univers 0.4 mg 24 4-09 ity of hr capsule 00:00: [place] [facility] tamsulosin 2019-0 Yes Univers 0.4 mg 24 4-09 ity of hr capsule 00:00: [place] [facility] tamsulosin 2019-0 Yes Univers 0.4 mg 24 4-09 ity of hr capsule 00:00: [place] [facility] tamsulosin 2019-0 Yes Univers 0.4 mg 24 4-09 ity of hr capsule 00:00: [place] [facility] tamsulosin 2019-0 Yes Univers 0.4 mg 24 4-09 ity of hr capsule 00:00: [place] [facility] tamsulosin 2019-0 Yes Univers 0.4 mg 24 4-09 ity of hr capsule 00:00: [place] [facility] tamsulosin 2019-0 Yes Univers 0.4 mg 24 4-09 ity of hr capsule 00:00: [place] [facility] tamsulosin 2019-0 Yes Univers 0.4 mg 24 4-09 ity of hr capsule 00:00: [place] [facility] tamsulosin 2019-0 Yes Univers 0.4 mg 24 4-09 ity of hr capsule 00:00: [place] [facility] tamsulosin 2019-0 Yes Univers 0.4 mg 24 4-09 ity of hr capsule 00:00: [place] [facility] tamsulosin 2019-0 Yes Univers 0.4 mg 24 4-09 ity of hr capsule 00:00: [place] [facility] tamsulosin 2019-0 Yes Univers 0.4 mg 24 4-09 ity of hr capsule 00:00: [place] [facility] tamsulosin 2019-0 Yes Univers 0.4 mg 24 4-09 ity of hr capsule 00:00: [place] [address] [facility] tamsulosin 2019-0 Yes Univers 0.4 mg 24 4-09 ity of hr capsule 00:00: [place] [facility] tamsulosin 2019-0 Yes Univers 0.4 mg 24 4-09 ity of hr capsule 00:00: [place] [facility] tamsulosin 2019-0 Yes Univers 0.4 mg 24 4-09 ity of hr capsule 00:00: [place] [facility] tamsulosin 2019-0 Yes Univers 0.4 mg 24 4-09 ity of hr capsule 00:00: [place] [facility] tamsulosin 2019-0 Yes Univers 0.4 mg 24 4-09 ity of hr capsule 00:00: [place] [facility] tamsulosin 2019-0 Yes Univers 0.4 mg 24 4-09 ity of hr capsule 00:00: [place] [facility] tamsulosin 2019-0 Yes Univers 0.4 mg 24 4-09 ity of hr capsule 00:00: [place] [facility] tamsulosin 2019-0 Yes Univers 0.4 mg 24 4-09 ity of hr capsule 00:00: [place] [address] [facility] tamsulosin 2019-0 Yes Univers 0.4 mg 24 4-09 ity of hr capsule 00:00: [place] [facility] tamsulosin 2019-0 Yes Univers 0.4 mg 24 4-09 ity of hr capsule 00:00: [place] [facility] tamsulosin 2019-0 Yes Univers 0.4 mg 24 4-09 ity of hr capsule 00:00: [place] [facility] tamsulosin 2019-0 Yes Univers 0.4 mg 24 4-09 ity of hr capsule 00:00: [place] [facility] tamsulosin 2019-0 Yes Univers 0.4 mg 24 4-09 ity of hr capsule 00:00: [place] [facility] tamsulosin 2019-0 Yes Univers 0.4 mg 24 4-09 ity of hr capsule 00:00: [place] [facility] tamsulosin 2019-0 Yes Univers 0.4 mg 24 4-09 ity of hr capsule 00:00: [place] [facility] tamsulosin 2019-0 Yes Univers 0.4 mg 24 4-09 ity of hr capsule 00:00: [place] [address] [facility] tamsulosin 2019-0 Yes Univers 0.4 mg 24 4-09 ity of hr capsule 00:00: [place] [address] [facility] tamsulosin 2019-0 Yes Univers 0.4 mg 24 4-09 ity of hr capsule 00:00: [place] [address] [facility] tamsulosin 2019-0 Yes Univers 0.4 mg 24 4-09 ity of hr capsule 00:00: [place] [facility] tamsulosin 2019-0 Yes Univers 0.4 mg 24 4-09 ity of hr capsule 00:00: [place] [facility] tamsulosin 2019-0 Yes Univers 0.4 mg 24 4-09 ity of hr capsule 00:00: [place] [facility] tamsulosin 2019-0 Yes Univers 0.4 mg 24 4-09 ity of hr capsule 00:00: [place] [facility] tamsulosin 2019-0 Yes Univers 0.4 mg 24 4-09 ity of hr capsule 00:00: [place] [facility] tamsulosin 2019-0 Yes Univers 0.4 mg 24 4-09 ity of hr capsule 00:00: [place] [facility] tamsulosin 2019-0 Yes Univers 0.4 mg 24 4-09 ity of hr capsule 00:00: [place] [facility] tamsulosin 2019-0 Yes Univers 0.4 mg 24 4-09 ity of hr capsule 00:00: [place] [facility] tamsulosin 2019-0 Yes Univers 0.4 mg 24 4-09 ity of hr capsule 00:00: [place] [facility] tamsulosin 2019-0 Yes Univers 0.4 mg 24 4-09 ity of hr capsule 00:00: [place] [facility] tamsulosin 2019-0 Yes Univers 0.4 mg 24 4-09 ity of hr capsule 00:00: [place] [facility] tamsulosin 2019-0 Yes Univers 0.4 mg 24 4-09 ity of hr capsule 00:00: [place] [facility] tamsulosin 2019-0 Yes Univers 0.4 mg 24 4-09 ity of hr capsule 00:00: [place] [facility] tamsulosin 2019-0 Yes Univers 0.4 mg 24 4-09 ity of hr capsule 00:00: [place] [facility] tamsulosin 2019-0 Yes Univers 0.4 mg 24 4-09 ity of hr capsule 00:00: [place] [facility] tamsulosin 2019-0 Yes Univers 0.4 mg 24 4-09 ity of hr capsule 00:00: [place] [facility] tamsulosin 2019-0 Yes Univers 0.4 mg 24 4-09 ity of hr capsule 00:00: [place] [facility] tamsulosin 2019-0 Yes Univers 0.4 mg 24 4-09 ity of hr capsule 00:00: [place] [facility] tamsulosin 2019-0 Yes Univers 0.4 mg 24 4-09 ity of hr capsule 00:00: [place] [facility] tamsulosin 2019-0 Yes Univers 0.4 mg 24 4-09 ity of hr capsule 00:00: [place] [facility] tamsulosin 2019-0 Yes Univers 0.4 mg 24 4-09 ity of hr capsule 00:00: [place] [facility] tamsulosin 2019-0 Yes Univers 0.4 mg 24 4-09 ity of hr capsule 00:00: [place] [facility] tamsulosin 2019-0 Yes Univers 0.4 mg 24 4-09 ity of hr capsule 00:00: [place] [facility] tamsulosin 2019-0 Yes Univers 0.4 mg 24 4-09 ity of hr capsule 00:00: [place] [facility] tamsulosin 2019-0 Yes Univers 0.4 mg 24 4-09 ity of hr capsule 00:00: [place] [facility] tamsulosin 2019-0 Yes Univers 0.4 mg 24 4-09 ity of hr capsule 00:00: [place] [facility] tamsulosin 2019-0 Yes Univers 0.4 mg 24 4-09 ity of hr capsule 00:00: [place] [facility] tamsulosin 2019-0 Yes Univers 0.4 mg 24 4-09 ity of hr capsule 00:00: [place] [facility] tamsulosin 2019-0 Yes Univers 0.4 mg 24 4-09 ity of hr capsule 00:00: [place] [facility] tamsulosin 2019-0 Yes Univers 0.4 mg 24 4-09 ity of hr capsule 00:00: [place] [facility] TOPIRAMATE 2019-0 Yes [id number] TAKE 1 Univers 25 mg 3-01 TABLET BY ity of tablet 00:00: MOUTH TWO [place] [facility] TOPIRAMATE 2019-0 Yes [id number] TAKE 1 [facility] 25 mg 3-01 TABLET BY ity of tablet 00:00: MOUTH TWO [place] [facility] TOPIRAMATE 2019-0 Yes [id number] TAKE 1 [facility] 25 mg 3-01 TABLET BY ity of tablet 00:00: MOUTH TWO [place] [facility] DA[facility] TOPIRAMATE 2019-0 Yes [id number] TAKE 1 [facility] 25 mg 3-01 TABLET BY ity of tablet 00:00: MOUTH TWO [place] 00 TIMES Medical DAILY Branch TOPIRAMATE Yes [id number] TAKE 1 Univers 25 mg 3-01 TABLET BY ity of tablet 00:00: MOUTH TWO [place] TIMES Medical DAILY Branch TOPIRAMATE Yes [id number] TAKE 1 [facility] 25 mg 3-01 TABLET BY ity of tablet 00:00: MOUTH TWO [place] TIMES Medical DAILY Branch TOPIRAMATE Yes [id number] TAKE 1 [facility] 25 mg 3-01 TABLET BY ity of tablet 00:00: MOUTH TWO [place] TIMES Medical DAILY Branch TOPIRAMATE Yes [id number] TAKE 1 [facility] 25 mg 3-01 TABLET BY ity of tablet 00:00: MOUTH TWO [place] TIMES Medical DAILY Branch TOPIRAMATE 2019- No [id number] TAKE 1 Univers 25 mg 3-01 08-28 TABLET BY ity of tablet 00:00: 00:00 MOUTH TWO [place] 00 :00 TIMES Medical DAILY Branch testosteron [...] Pumps to ity of g/Actuation 00:00: area(s) [place] as (1 %) gel 00 daily. Medical [...] Immunizations Ordered Filled Immunization Date Status Comments [facility] e Immunization Name Name SARS-COV-2 COVID-19 2021-03-31 Completed Unive rsity of MODERNA BOOSTER 00:00:00 [facility] ical VACCINE Branch SARS-COV-2 COVID-19 2020-06-25 Completed Unive rsity of MODERNA VACCINE 00:00:00 [facility] ical Branch SARS-COV-2 COVID-19 2020-06-25 Completed Unive rsity of MODERNA VACCINE 00:00:00 [facility] ical Branch SARS-COV-2 COVID-19 2020-06-25 Completed Unive rsity of MODERNA VACCINE 00:00:00 [facility] ical Branch SARS-COV-2 COVID-19 2020-06-25 Completed Unive rsity of MODERNA VACCINE 00:00:00 [facility] ical Branch SARS-COV-2 COVID-19 2020-06-25 Completed Unive rsity of MODERNA VACCINE 00:00:00 [place] [facility] ical Branch SARS-COV-2 COVID-19 2020-06-25 Completed Unive rsity of MODERNA VACCINE 00:00:00 [facility] ical Branch SARS-COV-2 COVID-19 2020-06-25 Completed Unive rsity of MODERNA VACCINE 00:00:00 [facility] ical Branch SARS-COV-2 COVID-19 2020-06-25 Completed Unive [...] Completed Unive rsity of MODERNA VACCINE 00:00:00 [facility] ical Branch SARS-COV-2 COVID-19 2020-05-28 Completed Unive rsity of MODERNA VACCINE 00:00:00 [facility] ical Branch SARS-COV-2 COVID-19 2020-05-28 Completed Unive rsity of MODERNA VACCINE 00:00:00 [facility] SARS-COV-2 COVID-19 2020-05-28 Completed Unive rsity of MODERNA VACCINE 00:00:00 [facility] SARS-COV-2 COVID-19 2020-05-28 Completed Unive rsity of MODERNA VACCINE 00:00:00 [facility] Branch SARS-COV-2 COVID-19 2020-05-28 Completed Unive rsity of MODERNA VACCINE 00:00:00 [facility] Branch SARS-COV-2 COVID-19 2020-05-28 Completed Unive rsity of MODERNA VACCINE 00:00:00 [facility] Vital Signs Vital Name Observation Time Observation Value Comments Source Systolic blood 2020-07-19 21:14:00 98 mm[Hg] Univer sity of pressure [facility] Diastolic blood 2020-07-19 21:14:00 65 mm[Hg] Unive rsity of pressure [facility] Heart rate 2020-07-19 21:14:00 75 /min [facility] Oxygen saturation in 2020-07-19 21:14:00 96 /min [facility] Arterial blood by [facility] Pulse oxim[facility] Branch Systolic blood 2020-01-19 20:45:00 119 mm[Hg] Univer sity of pressure [facility] Diastolic blood 2020-01-19 20:45:00 84 mm[Hg] Unive rsity of pressure [facility] Heart rate 2020-01-19 20:45:00 82 /min [facility] Body temperature 2020-01-19 20:45:00 37.22 [facility] [place] [facility] Body height 2020-01-19 20:45:00 182.9 cm [facility] Body weight 2020-01-19 20:45:00 88.905 kg [facility] BMI 2020-01-19 20:45:00 26.58 kg/m2 [facility] [place] [facility] Oxygen saturation in 2020-01-19 20:45:00 96 /min [facility] Pulse [facility]xim[facility] Systolic blood 2018-12-26 22:04:00 139 mm[Hg] Univer sity of pressure [place] [facility] Diastolic blood 2018-12-26 22:04:00 83 mm[Hg] Unive rsity of pressure [place] [facility] Heart rate 2018-12-26 22:04:00 62 /min [facility] [place] [facility] Body temperature 2018-12-26 22:04:00 36.39 [place] [facility] ers[facility] [place] [facility] Respiratory rate 2018-12-26 22:04:00 17 /min [facility] ers[facility] [place] [facility] Body weight 2018-12-26 22:04:00 87.998 kg [facility] [place] [facility] BMI 2018-12-26 22:04:00 26.31 kg/m2 [facility] [place] [facility] Systolic blood 2020 15:37:00 115 mm[Hg] Univer sity of pressure [place] [facility] Diastolic blood 2020 15:37:00 78 mm[Hg] Unive rsity of pressure [place] [facility] Heart rate 2020 15:37:00 105 /min [facility] [place] [facility] Respiratory rate 2020 15:37:00 14 /min [facility] [place] [facility] Body height 2020 15:37:00 182.9 cm [facility] [place] [facility] Body weight 2020 15:37:00 89.54 kg [facility] [place] [facility] BMI 2020 15:37:00 26.77 kg/m2 [facility] [place] [facility] Systolic blood 2020-07-19 21:14:00 98 mm[Hg] Univer sity of pressure [place] [facility] Diastolic blood 2020-07-19 21:14:00 65 mm[Hg] Unive rsity of pressure [place] [facility] Heart rate 2020-07-19 21:14:00 75 /min [facility] [place] [facility] Oxygen saturation in 2020-07-19 21:14:00 96 /min [facility] by [facility] Systolic blood 2020-02-02 15:06:00 114 mm[Hg] Univer sity of pressure [place] [facility] Diastolic blood 2020-02-02 15:06:00 78 mm[Hg] Unive rsity of pressure [facility] Branch Heart rate 2020-02-02 15:06:00 103 /min [facility]i ty of [facility] Respiratory rate 2020-02-02 15:06:00 19 /min Univ ersity of [facility] Body weight 2020-02-02 15:06:00 88.406 kg [facility] BMI 2020-02-02 15:06:00 26.43 kg/m2 [facility] Systolic blood 2020-01-19 20:45:00 119 mm[Hg] Univer sity of pressure [facility] Diastolic blood 2020-01-19 20:45:00 84 mm[Hg] Unive rsity of pressure [facility] Heart rate 2020-01-19 20:45:00 82 /min [facility] [place] [facility] Body temperature 2020-01-19 20:45:00 37.22 [place] Univ ersity of [facility] Body height 2020-01-19 20:45:00 182.9 cm [facility] [place] [facility] [place] Body weight 2020-01-19 20:45:00 88.905 kg [facility] [place] [facility] BMI 2020-01-19 20:45:00 26.58 kg/m2 [facility] Oxygen saturation in 2020-01-19 20:45:00 96 /min [facility] of [facility] by [facility] Pulse [facility]xim[facility] Systolic blood 2019-12-29 15:03:00 126 mm[Hg] Univer sity of pressure [facility] Diastolic blood 2019-12-29 15:03:00 79 mm[Hg] Unive rsity of pressure [facility] Heart rate 2019-12-29 15:03:00 84 /min Universi ty [facility] Respiratory rate 2019-12-29 15:03:00 17 /min Univ ersity of [facility] Body weight 2019-12-29 15:03:00 87.635 kg [facility] BMI 2019-12-29 15:03:00 26.20 kg/m2 [facility] Systolic blood 2019-11-24 15:01:00 131 mm[Hg] Univer sity of pressure [place] [facility] Diastolic blood 2019-11-24 15:01:00 83 mm[Hg] Unive rsity of pressure [place] [facility] Heart rate 2019-11-24 15:01:00 61 /min [facility] [place] [facility] Respiratory rate 2019-11-24 15:01:00 18 /min [facility] [place] [facility] Body weight 2019-11-24 15:01:00 92.08 kg [facility] [place] [facility] BMI 2019-11-24 15:01:00 27.53 kg/m2 [facility] [place] [facility] Systolic blood 2019-06-08 16:12:00 122 mm[Hg] Univer sity of pressure [place] [facility] Diastolic blood 2019-06-08 16:12:00 81 mm[Hg] Unive rsity of pressure [place] [facility] Heart rate 2019-06-08 16:12:00 57 /min [facility] [place] [facility] Respiratory rate 2019-06-08 16:12:00 17 /min [facility] [place] [facility] Body weight 2019-06-08 16:12:00 89.359 kg [facility] [place] [facility] BMI 2019-06-08 16:12:00 26.72 kg/m2 [facility] [place] [facility] Systolic blood 2019-04-07 16:01:00 116 mm[Hg] Univer sity of pressure [place] [facility] Diastolic blood 2019-04-07 16:01:00 74 mm[Hg] Unive rsity of pressure [place] [facility] Heart rate 2019-04-07 16:01:00 67 /min [facility] [place] [facility] Respiratory rate 2019-04-07 16:01:00 18 /min [facility] ers[facility] [place] [facility] Body height 2019-04-07 16:01:00 182.9 cm [facility] [place] [facility] Body weight 2019-04-07 16:01:00 89.359 kg [facility] [place] [facility] BMI 2019-04-07 16:01:00 26.72 kg/m2 [facility] [place] [facility] Systolic blood 2019-03-10 15:50:00 127 mm[Hg] Univer sity of pressure [place] [facility] Diastolic blood 2019-03-10 15:50:00 84 mm[Hg] Unive rsity of pressure [place] [facility] Heart rate 2019-03-10 15:50:00 89 /min [facility] [place] [facility] Respiratory rate 2019-03-10 15:50:00 18 /min [facility] [place] [facility] Body height 2019-03-10 15:50:00 182.9 cm [facility] [place] [facility] Body weight 2019-03-10 15:50:00 88.814 kg [facility] [place] [facility] BMI 2019-03-10 15:50:00 26.56 kg/m2 [facility] [place] [facility] Systolic blood 2019-02-10 15:16:00 127 mm[Hg] Univer sity of pressure [place] [facility] Diastolic blood 2019-02-10 15:16:00 79 mm[Hg] Unive rsity of pressure [place] [facility] Heart rate 2019-02-10 15:16:00 100 /min [facility] [place] [facility] Respiratory rate 2019-02-10 15:16:00 20 /min [facility] [place] [facility] Body height 2019-02-10 15:16:00 182.9 [...] 2019-01-06 15:07:00 17 /min [facility] [place] [facility] Body weight 2019-01-06 15:07:00 87.544 kg [facility] [place] [facility] BMI 2019-01-06 15:07:00 26.18 kg/m2 [facility] [place] [facility] Body temperature 2018-12-26 22:04:00 36.39 Pretty [facility] [place] [facility] Systolic blood 2018-12-09 15:09:00 118 mm[Hg] Univer sity of pressure [place] [facility] Diastolic blood 2018-12-09 15:09:00 80 mm[Hg] Unive rsity of pressure [place] [facility] Heart rate 2018-12-09 15:09:00 58 /min [facility] [place] [facility] Respiratory rate 2018-12-09 15:09:00 17 /min [facility] [place] [facility] Body weight 2018-12-09 15:09:00 87.998 kg [facility] BMI 2018-12-09 15:09:00 26.31 kg/m2 [facility] Body height 2018-09-22 18:03:00 182.9 cm [facility] Body temperature 2018 22:30:00 36.22 [facility] Procedures Procedure Date / Time Performing Clinician Source Performed SARS-COV-2 COVID-19 2021-03-31 22:17:29 [facility] VACCINE BOOSTER,0.25ML,IM [place] [facility] (MODERNA) VALPROIC ACID, TOTAL 2020-07-19 21:54:00 Mamadou Gil [facility] SARS-COV-2 COVID-19 2020-06-25 20:02:30 [facility], [facility] [place] VACCINE,0.5ML,IM (MODERNA) [facility] [place] [facility] SARS-COV-2 COVID-19 2020-05-28 20:50:30 Genie Good [facility] [place] VACCINE,0.5ML,IM (MODERNA) [facility] [place] [facility] VALPROIC ACID, TOTAL 2020-02-07 15:21:00 Hugo Dyer [facility] CBC WITH DIFF 2020-02-07 15:21:00 Gomez [facility] GLYCOSYLATED HEMOGLOBIN 2020-02-07 15:21:00 Hugo Dyer [facility] (A1C) [facility] THYROID STIMULATING 2020-02-07 15:21:00 Gomez [facility] H[facility] COMP. METABOLIC PANEL 2020-02-07 15:21:00 Gomez [facility] (73567) [facility] LIPID PANEL (94334)(TOTAL 2020-02-07 15:21:00 Gomez [facility] CHOLESTEROL, [facility] TRIGLYCERIDES, HDL) CBC WITH DIFF 2020-02-07 15:21:00 Gomez [facility] COMP. METABOLIC PANEL 2020-02-07 15:21:00 Gomez [facility] (86082) Medical Branch GLYCOSYLATED HEMOGLOBIN 2020-02-07 15:21:00 Hugo Dyer [facility] (A1C) Medical Branch LIPID PANEL (27456)(TOTAL 2020-02-07 15:21:00 Hugo Dyer [facility] CHOLESTEROL, Medical Branch TRIGLYCERIDES, HDL) VALPROIC ACID, TOTAL 2020-02-07 15:21:00 Hugo Dyer [facility] [place] THYROID STIMULATING 2020-02-07 15:21:00 Hugo Dyer [facility] HORMONE Medical Branch NOTICE OF PRIVACY 2020-02-07 14:56:54 Doctor Roger, [facility] PRACTICES [facility] CONSENT/REFUSAL FOR 2020-02-07 14:56:36 Doctor Roger [facility] DIAGNOSIS AND TREATMENT [facility] CONSENT/REFUSAL FOR 2020-02-07 14:56:36 Doctor Roger, [facility] DIAGNOSIS AND TREATMENT [facility] ASSIGNMENT OF BENEFITS 2020-02-07 14:56:19 [facility] [place] [facility] ASSIGNMENT OF BENEFITS 2020-02-07 14:56:19 Doctor Stephiekwame [facility] LIPID PANEL (18179)(TOTAL 2019-02-20 15:50:00 Thong [facility] CHOLESTEROL, [facility] 1928–1983[facility][1] TRIGLYCERIDES, HDL) GLYCOSYLATED HEMOGLOBIN 2019-02-20 15:50:00 Thong [facility] (A1C) Pilar Mancini [facility][1] NOTICE OF BILLING 2019-02-10 15:07:[address] [facility] PRACTICES FOR MEDICARE [place] [facility] PATIENTS [facility] [[email or web address] PATIENT FINANCIAL 2019-02-10 15:06:44 Doctor Duran [facility] POLICY [facility] NO SHOW OR MISSED 2019-02-10 15:06:[address] [facility] APPOINTMENT POLICY [place] [facility] h ACKNOWLEDGEMENT EXTERNAL PROVIDER RECORDS 2018-11-21 05:01:00 Doctor Duran [facility] Encounters Start End Encounter Admission Attending Care Care Encounter Source Date/Time Date/Time Type Type Clinicians Facility Department ID 2021-06-12 Outpatient 3 KAMLESH, ENCPL OZZY [id number] E[facility] 13:09:35 SIVAKUMAR 1025 2021-06-12 Outpatient 3 [id number] ENC[facility] REF [id number] [facility] 13:07:10 1019 2021-06-12 Outpatient 3 Baron, ENCPL OZZY [id number] ENC[facility] 12:40:27 Danielle 0810 2021-06-12 Outpatient 3 [id number] ENC[facility] REF [id number] E[facility] 12:40:00 0809 2021-06-12 Outpatient 3 [id number] ENCPL REF [id number] E[facility] 12:39:14 0806 2021-06-12 Outpatient 3 [id number] ENCPL OT ENCPL 11:32:46 0212021-06-12 Outpatient 3 [id number] ENCPL REF [id number] ENC[facility] 11:32:25 0212021-06-11 Outpatient Donita, STLMLC STLMLC [id number] [facility] 13:11:40 Mike [id number] [facility] 2021-07-24 2021-07-24 ambulatory STLMLC [facility]MLC [id number] [facility] 2021-07-07 2021-07-07 ambulatory STLMLC STLMLC [id number] [facility] 2021-06-18 2021-06-18 ambulatory STLMLC STLMLC [id number] [facility] 2021-05-21 2021-05-21 ambulatory STLMLC STLMLC [id number] [facility] 2021-04-23 2021-04-23 ambulatory STLMLC [facility]LMLC [id number] [facility] 2021-03-31 2021-03-31 Outpatient Mychal CAMPO [facility] [id number] Univers 16:00:00 15:47:40 EMILIANO nelson [facility] 2021-03-31 2021-03-31 Imm/Inj Nurse, Adc Pob Immunization [facility] [[email or web address]] 1.2.840.114 [id number] Univers 15:47:30 15:47:40 Visit Emiliano Campo 350.1.13 .10 ity of [place]HELLE 4.2.7.2.686 Caden MYLES [id number] Wy dical NAL [facility] 2021-01-17 2021-01-17 Outpatient R MAMADOU GIL [facility] [id number] Univers 15:40:00 15:40:00 MAMADOU GIL [id number] ity of [facility] 2021-01-09 2021-01-09 Outpatient STLMLC [facility] [id number] [facility] 2020-11-08 2020-11-08 Outpatient R [facility] [id number] Univers 10:45:00 10:45:00 [id number] ity of [facility] 2020-11-08 2020-11-08 Outpatient R MAMI GODOY [facility] [id number] Univers 10:45:00 10:45:00 ity of [facility] 2020-10-21 2020-10-21 Outpatient STLMLC [facility]LMLC [id number] [facility] 2020 2020 Outpatient R [facility] [id number] Univers 10:45:00 10:45:00 [id number] ity of [facility] 2020 2020 Outpatient R MAMI GODOY [facility] [id number] Univers 10:45:00 10:45:00 ity of [facility] 2020 2020 Travel 1.2.840.1 1.2.264.918 [id number] Univers 00:00:00 00:00:00 87482.1.1 350.1.13.10 ity of 3.104.2.7 [place].698 [place] 084.8 Med[place] .8 [place] 2020-09-12 2020-09-12 Outpatient R [facility] [id number] -[id number] Univers 10:45:00 10:45:00 [id number] ity of [facility] 2020-09-12 2020-09-12 Outpatient R MAMI GODOY [facility] [id number] Univers 10:45:00 10:45:00 ity of [facility] 2020-09-06 2020-09-06 Outpatient R [facility] [id number] Univers 10:00:00 10:00:00 [id number] ity of [facility] 2020-09-05 2020-09-05 Outpatient R [facility] [id number] Univers 10:00:00 10:00:00 [id number] ity [facility] 2020-08-30 2020-08-30 Outpatient R [facility] [id number] Univers 10:00:00 10:00:00 [id number] ity [facility] 2020-07-26 2020-07-26 Telephone Louise 1.2.840.2 [id number] Univers 00:00:00 00:00:00 Mamadou Johns 13899.1.1 ity of 3.104.2.7 [place] .3.427340 Medica l .[address] [place] [address] 2020-07-19 2020-07-19 Office Mayur Gil.2.840.0 [id number] Univers 14:59:36 16:04:15 Visit Mamadou Johns 73520.1.1 ity of 3.104.2.7 [place] .3.796293 Medica l .8 [place] 2020-07-19 2020-07-19 Sprayer Insecticide Mamadou Gil 1.2.840.0 [id number] Univers 15:47:23 16:02:23 Visit 2, Alana Martel 06183.1.1 i ty of 3.104.2.7 [place] .3.082119 Medica l .8 [place] 2020-07-19 2020-07-19 Outpatient R MAMADOU GIL [facility] [id number] Univers 15:00:00 15:00:00 MAMADOU GIL [id number] ity [facility] 2020-07-19 2020-07-19 Outpatient R MAMADOU GIL [facility] [id number] Univers 15:00:00 15:00:00 [facility] 2020-07-19 2020-07-19 Travel 1.2.840.1 1.2.989.530 [id number] Univers 00:00:00 00:00:00 33300.1.1 350.1.13.10 ity of 3.104.2.7 [place].698 [place].6[place] 084.8 Medica l .8 [place] 2020-07-18 2020-07-18 Outpatient R [facility] [id number] -[id number] Univers 10:00:00 10:00:00 [id number] ity [facility] 2020-07-18 2020-07-18 Outpatient R MAMI GODOY [facility] [id number] Univers 10:00:00 10:00:00 ity [facility] 2020-07-12 2020-07-12 Outpatient R [facility] [id number] Univers 10:00:00 10:00:00 [id number] [facility] 2020-06-25 2020-06-25 Outpatient R KORY [facility] [id number] Univers 14:10:00 14:10:00 IV[facility]N [id number] [facility] 2020-06-25 2020-06-25 Outpatient R KORY [facility] [id number] Univers 14:10:00 14:10:00 [facility] 2020-06-25 2020-06-25 Imm/Inj Iván Alegria 1.2.840.1 [id number] Univers 14:00:29 14:01:18 Visit Nurse, Alana Pob Immunization 87914.1.1 ity of 3.104.2.7 [place] .3.205043 Medica l .8 [place] 2020-06-07 2020-06-07 Outpatient R [facility] [id number] Univers 10:00:00 10:00:00 [id number] ity [facility] 2020-06-07 2020-06-07 Outpatient R MAMI GODOY [facility] [id number] Univers 10:00:00 10:00:00 ity of [facility] 2020-05-28 2020-05-28 Outpatient R KORY [facility] [id number] Univers 15:00:00 15:00:00 IVÁN ity [facility] 2020-05-28 2020-05-28 Imm/Inj Iván Alegria 1.2.840.1 [id number] Univers 14:46:27 14:49:49 Visit Nurse, Adc Pob Immunization 90655.1.1 ity of 3.104.2.7 [place] .3.603189 Medica l .8 [place] 2020-05-28 2020-05-28 [facility] [id number] Univers 09:10:00 09:10:00 IVÁN [id number] ity [facility] 2020-05-11 2020-05-11 Outpatient R [facility] [id number] -[id number] Univers 17:40:00 17:40:00 [id number] ity [facility] 2020-05-11 2020-05-11 Outpatient R UNKNOWN, [facility] [id number] Univers 17:40:00 17:40:00 ATTENDING ity [facility] 2020-05-11 2020-05-11 Telemedici Shilpi Pop 1.2.840.0 [id number] Univers 15:55:08 16:15:08 ne Visit Unknown, Attending 47982.1.1 ity of Care, Provider 25 - Adult & Pedi Urgent 3.104.2.7 [place] .3.889862 Medica l .8 [place] 2020-04-26 2020-04-26 Outpatient R [facility] [id number] -[id number] Univers 10:00:00 10:00:00 [id number] ity [facility] 2020-04-26 2020-04-26 Outpatient R MAMI GODOY [facility] [id number] Univers 10:00:00 10:00:00 ity [facility] 2020-03-15 2020-03-15 Outpatient R [facility] [id number] -[id number] Univers 10:00:00 10:00:00 ity of [facility] 2020-03-15 2020-03-15 Outpatient R MAMI GODOY [facility] [id number] Univers 10:00:00 10:00:00 ity of [facility] 2020-02-16 2020-02-16 Outpatient R [facility] [id number] Univers 14:15:00 14:15:00 ity of [facility] 2020-02-16 2020-02-16 Outpatient R KAMILLA, [facility] [id number] Univers 14:15:00 14:15:00 RADHA ity of [facility] 2020-02-09 2020-02-09 Outpatient R [facility] [id number] -[id number] Univers 10:00:00 10:00:00 [id number] ity of [facility] 2020-02-08 2020-02-08 Outpatient R [facility] [id number] -[id number] Univers 10:00:00 10:00:00 [id number] ity of [facility] 2020-02-07 2020-02-07 Outpatient R [facility] [id number] Univers 10:30:00 10:30:00 [id number] ity of [facility] 2020-02-07 2020-02-07 Outpatient R JYOTI, [facility] [id number] Univers 10:30:00 10:30:00 ADRIAN [facility] [place] [facility] 2020-02-07 2020-02-07 Sprayer Insecticide Adrian Araujo 1.2.840.4 [id number] Univers 09:57:45 10:12:45 Visit Pob, Adc Lab Main 59984.1.1 ity of 3.104.2.7 [place] .3.448055 Medica l [address] [place] [address] 2020-02-07 2020-02-07 Orders Doctor 1.2.840.8 [id number] Univers 00:00:00 00:00:00 Only Unassigned, 34135.1.1 ity of [place] 3.104.2.7 [place] .3.730480 Medica l .8 [place] 2020-02-07 2020-02-07 Travel 1.2.840.1 1.2.790.643 [id number] Univers 00:00:00 00:00:00 92272.1.1 350.1.13.10 ity of 3.104.2.[place].698 [place].874720 084.8 Medica l .8 [place] 2020-02-04 2020-02-04 Nurse Renetta, 1.2.840.4 [id number] Univers 00:00:00 00:00:00 Triage Ariana T 95562.1.1 ity of 3.104.2.7 [place] .3.820613 Medica l .8 [place] 2020-02-04 2020-02-04 Telephone Louise, 1.2.840.0 [id number] Univers 00:00:00 00:00:00 Mamadou Gene 87341.1.1 ity of 3.104.2.7 [place] .3.861277 Medica l .8 [place] 2020-02-02 2020-02-02 Outpatient R [facility] [id number] -[id number] Univers 10:00:00 10:00:00 [id number] ity of [facility] 2020-02-02 2020-02-02 Outpatient R MAMI OGDOY [facility] [id number] Univers 10:00:00 10:00:00 ity of [facility] 2020-02-02 2020-02-02 Travel 1.2.840.1 1.2.074.547 [id number] Univers 00:00:00 00:00:00 48838.1.1 350.1.13.10 ity of 3.104.2.7 [place].698 [place] .[place].274695 084.8 Medica l .8 [place] 2020-02-01 2020-02-01 Travel 1.2.840.1 1.2.329.670 [id number] Univers 00:00:00 00:00:00 29851.1.1 350.1.13.10 ity of 3.104.2.7 [place].3.698 [place] .3.316465 084.8 Medica l .8 [place] 2020-01-19 2020-01-19 Office Louise, 1.2.840.7 [id number] Univers 14:42:27 16:01:19 Visit Mamadou Gene 26671.1.1 ity of 3.104.2.7 [place] .3.935681 Medica l .8 [place] 2020-01-19 2020-01-19 Outpatient MAMADOU GIL [facility] [id number] Univers 15:00:00 15:00:00 MAMADOU GIL [id number] ity of [facility] 2020-01-19 2020-01-19 Outpatient R MAMADOU GIL [facility] [id number] Univers 15:00:00 15:00:00 MAMADOU GIL ity of [facility] 2020-01-19 2020-01-19 Travel 1.2.840.1 1.2.175.093 [id number] Univers 00:00:00 00:00:00 19590.1.1 350.1.13.10 ity of 3.104.2.7 [place].3.698 [place] .3.305150 084.8 Medica l .8 [place] 2020-01-08 2020-01-08 Telephone Louise, 1.2.840.0 [id number] Univers 00:00:00 00:00:00 Mamadou Gene 54385.1.1 ity of 3.104.2.7 [place] .3.701201 Medica l .8 [place] 2019-12-29 2019-12-29 Outpatient R [facility] [id number] Univers 10:00:00 10:00:00 [id number] ity of [facility] 2019-12-29 2019-12-29 Outpatient R LORENZAMAMI AVITIA [facility] [id number] Univers 10:00:00 10:00:00 ity of [facility] 2019-12-29 2019-12-29 Travel 1.2.840.1 1.2.865.072 [id number] Univers 00:00:00 00:00:00 79071.1.1 350.1.13.10 ity of 3.104.2.7 [place].3.698 [place].216512 084.8 Medica l .8 [place] 2019-11-24 2019-11-24 Outpatient R [facility] [id number] Univers 10:00:00 10:00:00 ity of [facility] 2019-11-24 2019-11-24 Outpatient R JUNO HOSKINS [facility] [id number] Univers 10:00:00 10:00:00 ity of [facility] 2019-11-24 2019-11-24 Travel 1.2.840.1 1.2.731.503 [id number] Univers 00:00:00 00:00:00 37315.1.1 350.1.13.10 ity of 3.104.2.7 [place].698 [place]3.593922 084.8 Medica l .8 [place] 2019-10-12 2019-10-12 Outpatient R [facility] [id number] Univers 12:45:00 12:45:00 [id number] ity of [facility] 2019-10-12 2019-10-12 [facility] [id number] Univers 12:45:00 12:45:00 ADRIAN ity of [facility] 2019-09-08 2019-09-08 Outpatient R [facility] [id number] -[id number] Univers 09:15:00 09:15:00 [id number] ity of [facility] 2019-09-08 2019-09-08 Outpatient R MAMI GODOY [facility] [id number] Univers 09:15:00 09:15:00 ity of [facility] 2019-09-06 2019-09-06 Janice Gil 1.2.840.1 [id number] Univers 00:00:00 00:00:00 [facility] 34233.1.1 ity of 3.104.2.7 [place] .3.023854 Medica l .8 [place] 2019-08-11 2019-08-11 Outpatient R MAMI GODOY [facility] [id number] Univers 10:00:00 10:00:00 ity of [facility] 2019-02-20 2019-02-20 Sprayer Insecticide Mami Godoy 1.2.840.1 [id number] Univers 10:14:05 10:29:05 Visit 1, Adc Lab 79909.1.1 i ty of 3.104.2.7 [place] .3.731497 Medica l .8 Branch 2019-02-10 2019-02-10 Orders Doctor 1.2.840.2 [id number] Univers 00:00:00 00:00:00 Only Unassigned, 51504.1.1 ity of [place] 3.104.2.7 [place] .3.356166 Medica l .8 Branch 2019-01-11 2019-01-11 Refill Louise, 1.2.840.9 [id number] Univers 00:00:00 00:00:00 Mamadou Gene 96263.1.1 ity of 3.104.2.7 [place] .3.105091 Medica l .8 Branch 2018-12-26 2018-12-26 Office Louise, 1.2.840.9 [id number] Univers 15:42:00 17:08:53 Visit Mamadou Gene 90445.1.1 ity of 3.104.2.7 [place] .3.064987 Medica l .8 Branch 2018-11-21 2018-11-21 Orders Doctor 1.2.840.5 [id number] Univers 00:00:00 00:00:00 Only Unassigned, 19688.1.1 ity of [place] 3.104.2.7 [place] .3.391556 Medica l .8 [place] 2018-09-16 2018-09-16 Telephone Louise, 1.2.840.4 [id number] Univers 00:00:00 00:00:00 Mamadou Gene 94803.1.1 ity of 3.104.2.7 [place] .3.361958 Medica l .8 Branch 2018 2018 Office Louise, 1.2.840.3 [id number] Univers 15:36:03 17:23:49 Visit Mamadou Gene 44263.1.1 ity of 3.104.2.7 [place] .3.809991 Medica l .8 [place] Results Test Description Test Time Test Comments Results Result Comments Source VALPROIC ACID, TOTAL 2020-07-19 23:16:00 Test Item Value Reference Range Interpretation Comme nts VALPROIC A (test code = 0912028259) 32 ug/mL 50-100 L JOEY (test code = JOEY) Toxic Range: ?Greater than 100 ug/mL Lab Interpretation (test code = 24696-2) Abnormal [facility] [id number] 23:16:00 Test Item Value Reference Range Interpretation Comments VALPROIC A (test code = 32 ug/mL 50-100 L 6520350649) JOEY (test code = JOEY) Toxic Range: ?Greater than 100 ug/mL Lab Interpretation (test Abnormal code = 84982-8) [facility], [id number] 23:16:00 Test Item Value Reference Range Interpretation Comments VALPROIC A (test code = 32 ug/mL 50-100 L [id number]) JOEY (test code = JOEY) Toxic Range: ?Greater than 100 ug/mL Lab Interpretation (test Abnormal code = 40949-6) [facility], [id number] 23:16:00 Test Item Value Reference Range Interpretation Comments VALPROIC A (test code = 32 ug/mL 50-100 L 4859528703) JOEY (test code = JOEY) Toxic Range: ?Greater than 100 ug/mL Lab Interpretation (test Abnormal code = 77612-2) [facility], [id number] 23:16:00 Test Item Value Reference Range Interpretation Comments VALPROIC A (test code = 32 ug/mL 50-100 L [id number]) JOEY (test code = JOEY) Toxic Range: ?Greater than 100 ug/mL Lab Interpretation (test Abnormal code = 19757-4) [facility], [id number] 23:16:00 Test Item Value Reference Range Interpretation Comments VALPROIC A (test code = 32 ug/mL 50-100 L 5091442526) JOEY (test code = JOEY) Toxic Range: ?Greater than 100 ug/mL Lab Interpretation (test Abnormal code = 73465-9) [facility] [id number] 17:48:00 Test Item Value Reference Range Interpretation Comments TSH (test code = See_Comment [Automated message] [id number]) The system [employer] generated this result transmitted ref erence range: 0.45 - 4 .70 mIU/L. The refe rence range was not u sed to interpret this result as normal/abnor mal. Lab Interpretation (test Normal code = 09979-0) [facility] [id number] 17:48:00 Test Item Value Reference Range Interpretation Comments TSH (test code = See_Comment [Automated message] [id number]) The system [employer] generated this result transmitted ref erence range: 0.45 - 4 .70 mIU/L. The refe rence range was not u sed to interpret this result as normal/abnor mal. Lab Interpretation (test Normal code = 31227-5) [facility] [id number] 17:48:00 Test Item Value Reference Range Interpretation Comments TSH (test code = See_Comment [Automated message] [id number]) The system [employer] generated this result transmitted ref erence range: 0.45 - 4 .70 mIU/L. The refe rence range was not u sed to interpret this result as normal/abnor mal. Lab Interpretation (test Normal code = 77701-5) [facility] [id number] 17:48:00 Test Item Value Reference Range Interpretation Comments TSH (test code = See_Comment [Automated message] [id number]) The system [employer] generated this result transmitted ref erence range: 0.45 - 4 .70 mIU/L. The refe rence range was not u sed to interpret this result as normal/abnor mal. Lab Interpretation (test Normal code = 26968-6) [facility] [id number] 17:48:00 Test Item Value Reference Range Interpretation Comments TSH (test code = See_Comment [Automated message] [id number]) The system [employer] generated this result transmitted ref erence range: 0.45 - 4 .70 mIU/L. The refe rence range was not u sed to interpret this result as normal/abnor mal. Lab Interpretation (test Normal code = 21713-8) [facility] [id number] 17:48:00 Test Item Value Reference Range Interpretation Comments TSH (test code = See_Comment [Automated message] [id number]) The system [employer] generated this result transmitted ref erence range: 0.45 - 4 .70 mIU/L. The refe rence range was not u sed to interpret this result as normal/abnor mal. Lab Interpretation (test Normal code = 10048-1) [facility] [id number] 17:48:00 Test Item Value Reference Range Interpretation Comments TSH (test code = See_Comment [Automated message] [id number]) The system [employer] generated this result transmitted ref erence range: 0.45 - 4 .70 mIU/L. The refe rence range was not u sed to interpret this result as normal/abnor mal. Lab Interpretation (test Normal code = 77150-4) [facility]2020-09-23 17:48:00 Test Item Value Reference Range Interpretation Comments TSH (test code = See_Comment [Automated message] [id number]) The system [employer] generated this result transmitted ref erence range: 0.45 - 4 .70 mIU/L. The refe rence range was not u sed to interpret this result as normal/abnor mal. Lab Interpretation (test Normal code = 57531-4) [facility] [id number] 17:48:00 Test Item Value Reference Range Interpretation Comments TSH (test code = See_Comment [Automated message] [id number]) The system [employer] generated this result transmitted ref erence range: 0.45 - 4 .70 mIU/L. The refe rence range was not u sed to interpret this result as normal/abnor mal. Lab Interpretation (test Normal code = 56586-4) [facility] [id number] 17:48:00 Test Item Value Reference Range Interpretation Comments TSH (test code = See_Comment [Automated message] [id number]) The system [employer] generated this result transmitted ref erence range: 0.45 - 4 .70 mIU/L. The refe rence range was not u sed to interpret this result as normal/abnor mal. Lab Interpretation (test Normal code = 55261-6) [facility] [id number] 17:48:00 Test Item Value Reference Range Interpretation Comments TSH (test code = See_Comment [Automated message] [id number]) The system [employer] generated this result transmitted ref erence range: 0.45 - 4 .70 mIU/L. The refe rence range was not u sed to interpret this result as normal/abnor mal. Lab Interpretation (test Normal code = 89622-6) [facility] [id number] 17:48:00 Test Item Value Reference Range Interpretation Comments TSH (test code = See_Comment [Automated message] [id number]) The system [employer] generated this result transmitted ref erence range: 0.45 - 4 .70 mIU/L. The refe rence range was not u sed to interpret this result as normal/abnor mal. Lab Interpretation (test Normal code = 76070-4) [facility] [id number] 17:48:00 Test Item Value Reference Range Interpretation Comments TSH (test code = See_Comment [Automated message] 6196682368) The system [employer] generated this result transmitted ref erence range: 0.45 - 4 .70 mIU/L. The refe rence range was not u sed to interpret this result as normal/abnor mal. Lab Interpretation (test Normal code = 43546-4) [facility] [id number] 17:48:00 Test Item Value Reference Range Interpretation Comments TSH (test code = See_Comment [Automated message] [id number]) The system [employer] generated this result transmitted ref erence range: 0.45 - 4 .70 mIU/L. The refe rence range was not u sed to interpret this result as normal/abnor mal. Lab Interpretation (test Normal code = 20520-1) [facility]LIP[facility] ([id number])(TOTAL CHOLESTEROL, TRIGLYCERIDES, HDL)2020-02-07 17:19:00 Test Item Value Reference Range Interpretation Comments CHOL (test code = 117 mg/dL 120-200 L 3445009826) HDL (test code = 38 mg/dL >40 L 8908491621) HDLC RATIO (test code = See_Comment [Au tomated message] 5520039209) The system [employer] generated this result transmit claribel reference range : <=5.0. The refe rence range was not u sed to interpret th is result as normal/abnormal . TRIG (test code = 50 mg/dL 30-170 9416807219) LDL CHOL (test code = 69 mg/dL See_Comment [Auto mated message] 80215-0) The system [employer] generated this result transmit claribel reference range : <=160. The refe rence range was not u sed to interpret th is result as normal/abnormal . VLDL (test code = 10 mg/dL 5-60 8748071003) Lab Interpretation (test Abnormal code = 55199-9) [facility][id number][facility]TOTAL CHOLESTEROL, TRIGLYCERIDES, HDL)2020-02-07 17:19:00 Test Item Value Reference Range Interpretation Comments CHOL (test code = 117 mg/dL 120-200 L 6483828192) HDL (test code = 38 mg/dL >40 L 5346171887) HDLC RATIO (test code = See_Comment [Au tomated message] 4681305804) The system [employer] generated this result transmit claribel reference range : <=5.0. The refe rence range was not u sed to interpret th is result as normal/abnormal . TRIG (test code = 50 mg/dL 30-170 0668204443) LDL CHOL (test code = 69 mg/dL See_Comment [Auto mated message] 67849-2) The system [employer] generated this result transmit claribel reference range : <=160. The refe rence range was not u sed to interpret th is result as normal/abnormal . VLDL (test code = 10 mg/dL 5-60 9341862437) Lab Interpretation (test Abnormal code = 32607-1) [facility] ([id number])(TOTAL CHOLESTEROL, TRIGLYCERIDES, HDL)2020-02-07 17:19:00 Test Item Value Reference Range Interpretation Comments CHOL (test code = 117 mg/dL 120-200 L 7394065905) HDL (test code = 38 mg/dL >40 L 6824644306) HDLC RATIO (test code = See_Comment [Au tomated message] 2889575320) The system [employer] generated this result transmit claribel reference range : <=5.0. The refe rence range was not u sed to interpret th is result as normal/abnormal . TRIG (test code = 50 mg/dL 30-170 8080675009) LDL CHOL (test code = 69 mg/dL See_Comment [Auto mated message] 72948-9) The system [employer] generated this result transmit claribel reference range : <=160. The refe rence range was not u sed to interpret th is result as normal/abnormal . VLDL (test code = 10 mg/dL 5-60 0390286268) Lab Interpretation (test Abnormal code = 14379-7) [facility] ([id number])(TOTAL CHOLESTEROL, TRIGLYCERIDES, HDL)2020-02-07 17:19:00 Test Item Value Reference Range Interpretation Comments CHOL (test code = 117 mg/dL 120-200 L 5702114234) HDL (test code = 38 mg/dL >40 L 4054318544) HDLC RATIO (test code = See_Comment [Au tomated message] 3923081377) The system [employer] generated this result transmit claribel reference range : <=5.0. The refe rence range was not u sed to interpret th is result as normal/abnormal . TRIG (test code = 50 mg/dL 30-170 6385572657) LDL CHOL (test code = 69 mg/dL See_Comment [Auto mated message] 58700-1) The system [employer] generated this result transmit claribel reference range : <=160. The refe rence range was not u sed to interpret th is result as normal/abnormal . VLDL (test code = 10 mg/dL 5-60 9438542804) Lab Interpretation (test Abnormal code = 73659-4) [facility] ([id number])(TOTAL CHOLESTEROL, TRIGLYCERIDES, HDL)2020-02-07 17:19:00 Test Item Value Reference Range Interpretation Comments CHOL (test code = 117 mg/dL 120-200 L 9308518499) HDL (test code = 38 mg/dL >40 L 7258949698) HDLC RATIO (test code = See_Comment [Au tomated message] 6154381037) The system [employer] generated this result transmit claribel reference range : <=5.0. The refe rence range was not u sed to interpret th is result as normal/abnormal . TRIG (test code = 50 mg/dL 30-170 7674059234) LDL CHOL (test code = 69 mg/dL See_Comment [Auto mated message] 02163-0) The system [employer] generated this result transmit claribel reference range : <=160. The refe rence range was not u sed to interpret th is result as normal/abnormal . VLDL (test code = 10 mg/dL 5-60 8507381373) Lab Interpretation (test Abnormal code = 58267-5) [facility] ([id number])(TOTAL CHOLESTEROL, TRIGLYCERIDES, HDL)2020-02-07 17:19:00 Test Item Value Reference Range Interpretation Comments CHOL (test code = 117 mg/dL 120-200 L 9601243906) HDL (test code = 38 mg/dL >40 L 6754207518) HDLC RATIO (test code = See_Comment [Au tomated message] 7219031657) The system [employer] generated this result transmit claribel reference range : <=5.0. The refe rence range was not u sed to interpret th is result as normal/abnormal . TRIG (test code = 50 mg/dL 30-170 7266452157) LDL CHOL (test code = 69 mg/dL See_Comment [Auto mated message] 90571-4) The system [employer] generated this result transmit claribel reference range : <=160. The refe rence range was not u sed to interpret th is result as normal/abnormal . VLDL (test code = 10 mg/dL 5-60 7558315193) Lab Interpretation (test Abnormal code = 91217-4) [facility] (46194)(TOTAL CHOLESTEROL, TRIGLYCERIDES, HDL)2020-02-07 17:19:00 Test Item Value Reference Range Interpretation Comments CHOL (test code = 117 mg/dL 120-200 L 1748923210) HDL (test code = 38 mg/dL >40 L 0328957046) HDLC RATIO (test code = See_Comment [Au tomated message] 5948823109) The system [employer] generated this result transmit claribel reference range : <=5.0. The refe rence range was not u sed to interpret th is result as normal/abnormal . TRIG (test code = 50 mg/dL 30-170 7761496092) LDL CHOL (test code = 69 mg/dL See_Comment [Auto mated message] 11246-3) The system [employer] generated this result transmit claribel reference range : <=160. The refe rence range was not u sed to interpret th is result as normal/abnormal . VLDL (test code = 10 mg/dL 5-60 4683235923) Lab Interpretation (test Abnormal code = 44231-0) [facility] ([id number])(TOTAL CHOLESTEROL, TRIGLYCERIDES, HDL)2020-02-07 17:19:00 Test Item Value Reference Range Interpretation Comments CHOL (test code = 117 mg/dL 120-200 L 3553512701) HDL (test code = 38 mg/dL >40 L 4579702111) HDLC RATIO (test code = See_Comment [Au tomated message] 8034681165) The system [employer] generated this result transmit claribel reference range : <=5.0. The refe rence range was not u sed to interpret th is result as normal/abnormal . TRIG (test code = 50 mg/dL 30-170 3330005974) LDL CHOL (test code = 69 mg/dL See_Comment [Auto mated message] 08020-4) The system [employer] generated this result transmit claribel reference range : <=160. The refe rence range was not u sed to interpret th is result as normal/abnormal . VLDL (test code = 10 mg/dL 5-60 8007066838) Lab Interpretation (test Abnormal code = 92700-9) [facility] ([id number])(TOTAL CHOLESTEROL, TRIGLYCERIDES, HDL)2020-02-07 17:19:00 Test Item Value Reference Range Interpretation Comments CHOL (test code = 117 mg/dL 120-200 L 8298497934) HDL (test code = 38 mg/dL >40 L 6981103355) HDLC RATIO (test code = See_Comment [Au tomated message] 8564177493) The system [employer] generated this result transmit claribel reference range : <=5.0. The refe rence range was not u sed to interpret th is result as normal/abnormal . TRIG (test code = 50 mg/dL 30-170 2337047452) LDL CHOL (test code = 69 mg/dL See_Comment [Auto mated message] 77295-9) The system [employer] generated this result transmit claribel reference range : <=160. The refe rence range was not u sed to interpret th is result as normal/abnormal . VLDL (test code = 10 mg/dL 5-60 4379650621) Lab Interpretation (test Abnormal code = 00014-5) [facility] ([id number])(TOTAL CHOLESTEROL, TRIGLYCERIDES, HDL)2020-02-07 17:19:00 Test Item Value Reference Range Interpretation Comments CHOL (test code = 117 mg/dL 120-200 L 6446456023) HDL (test code = 38 mg/dL >40 L 2408809155) HDLC RATIO (test code = See_Comment [Au tomated message] 6144392743) The system [employer] generated this result transmit claribel reference range : <=5.0. The refe rence range was not u sed to interpret th is result as normal/abnormal . TRIG (test code = 50 mg/dL 30-170 5066653806) LDL CHOL (test code = 69 mg/dL See_Comment [Auto mated message] 03805-3) The system [employer] generated this result transmit claribel reference range : <=160. The refe rence range was not u sed to interpret th is result as normal/abnormal . VLDL (test code = 10 mg/dL 5-60 7701614846) Lab Interpretation (test Abnormal code = 92519-7) [facility] (48911)(TOTAL CHOLESTEROL, TRIGLYCERIDES, HDL)2020-02-07 17:19:00 Test Item Value Reference Range Interpretation Comments CHOL (test code = 117 mg/dL 120-200 L 8252351446) HDL (test code = 38 mg/dL >40 L 8552612803) HDLC RATIO (test code = See_Comment [Au tomated message] 9160248030) The system [employer] generated this result transmit claribel reference range : <=5.0. The refe rence range was not u sed to interpret th is result as normal/abnormal . TRIG (test code = 50 mg/dL 30-170 5401070544) LDL CHOL (test code = 69 mg/dL See_Comment [Auto mated message] 44751-4) The system [employer] generated this result transmit claribel reference range : <=160. The refe rence range was not u sed to interpret th is result as normal/abnormal . VLDL (test code = 10 mg/dL 5-60 3461081930) Lab Interpretation (test Abnormal code = 64885-1) [facility] (11874)(TOTAL CHOLESTEROL, TRIGLYCERIDES, HDL)2020-02-07 17:19:00 Test Item Value Reference Range Interpretation Comments CHOL (test code = 117 mg/dL 120-200 L 6413212696) HDL (test code = 38 mg/dL >40 L 6878811936) HDLC RATIO (test code = See_Comment [Au tomated message] 9357104505) The system [employer] generated this result transmit claribel reference range : <=5.0. The refe rence range was not u sed to interpret th is result as normal/abnormal . TRIG (test code = 50 mg/dL 30-170 4163133701) LDL CHOL (test code = 69 mg/dL See_Comment [Auto mated message] 20603-5) The system [employer] generated this result transmit claribel reference range : <=160. The refe rence range was not u sed to interpret th is result as normal/abnormal . VLDL (test code = 10 mg/dL 5-60 4735168051) Lab Interpretation (test Abnormal code = 24936-3) [facility] (74028)(TOTAL CHOLESTEROL, TRIGLYCERIDES, HDL)2020-02-07 17:19:00 Test Item Value Reference Range Interpretation Comments CHOL (test code = 117 mg/dL 120-200 L 2895634163) HDL (test code = 38 mg/dL >40 L 1223041372) HDLC RATIO (test code = See_Comment [Au tomated message] 5864524385) The system [employer] generated this result transmit claribel reference range : <=5.0. The refe rence range was not u sed to interpret th is result as normal/abnormal . TRIG (test code = 50 mg/dL 30-170 0721195490) LDL CHOL (test code = 69 mg/dL See_Comment [Auto mated message] 38805-0) The system [employer] generated this result transmit claribel reference range : <=160. The refe rence range was not u sed to interpret th is result as normal/abnormal . VLDL (test code = 10 mg/dL 5-60 3396388187) Lab Interpretation (test Abnormal code = 30572-2) [facility] ([id number])(TOTAL CHOLESTEROL, TRIGLYCERIDES, HDL)2020-02-07 17:19:00 Test Item Value Reference Range Interpretation Comments CHOL (test code = 117 mg/dL 120-200 L 4147432114) HDL (test code = 38 mg/dL >40 L 7757094551) HDLC RATIO (test code = See_Comment [Au tomated message] 4569000349) The system [employer] generated this result transmit claribel reference range : <=5.0. The refe rence range was not u sed to interpret th is result as normal/abnormal . TRIG (test code = 50 mg/dL 30-170 9702669299) LDL CHOL (test code = 69 mg/dL See_Comment [Auto mated message] 16482-5) The system [employer] generated this result transmit claribel reference range : <=160. The refe rence range was not u sed to interpret th is result as normal/abnormal . VLDL (test code = 10 mg/dL 5-60 8192123099) Lab Interpretation (test Abnormal code = 30729-2) [facility]OL[facility] ([id number])2020-02-07 17:18:00 Test Item Value Reference Range Interpretation Comments NA (test code = 141 mmol/L 135-145 9509570729) K (test code = 4.3 mmol/L 3.5-5 8432689765) CL (test code = 103 mmol/L 98-108 6302000847) CO2 TOTAL (test code = 30 mmol/L 23-31 8907927568) AGAP (test code = 2-16 5569060519) BUN (test code = 13 mg/dL 7-23 9909119252) GLUCOSE (test code = 91 mg/dL 70-110 6814403962) CREATININE (test code = 0.80 mg/dL 0.6-1.25 5320767451) TOTAL BILI (test code = 0.6 mg/dL 0.1-1.6 2390562741) CALCIUM (test code = 9.7 mg/dL 8.6-10.6 5701701978) T PROTEIN (test code = 5.6 g/dL 6.3-8.2 L 0168000685) ALBUMIN (test code = 3.4 g/dL 3.5-5 L 4031425442) ALK PHOS (test code = 76 U/L 34-122 8467159040) ALTv (test code = 15 U/L 5-50 1742-6) AST(SGOT) (test code = 17 U/L 13-40 2682976464) eGFR Calculation mL/min/1.73m2 (Non-) (test code = 7543901218) eGFR Calculation mL/min/1.73m2 () (test code = 1050166421) JOEY (test code = JOEY) Association of [...] tests). Lab Interpretation Abnormal (test code = 42616-5) [facility]. METABOLIC PANEL (78496)2020-02-07 17:18:00 Test Item Value Reference Range Interpretation Comments NA (test code = 141 mmol/L 135-145 7806702517) K (test code = 4.3 mmol/L 3.5-5 0066352259) CL (test code = 103 mmol/L 98-108 7796768888) CO2 TOTAL (test code = 30 mmol/L 23-31 0740557869) AGAP (test code = 2-16 1371396331) BUN (test code = 13 mg/dL 7-23 8573809455) GLUCOSE (test code = 91 mg/dL 70-110 7738452166) CREATININE (test code = 0.80 mg/dL 0.6-1.25 8127969154) TOTAL BILI (test code = 0.6 mg/dL 0.1-1.9 5819978953) CALCIUM (test code = 9.7 mg/dL 8.6-10.6 7564628322) T PROTEIN (test code = 5.6 g/dL 6.3-8.2 L 2069077126) ALBUMIN (test code = 3.4 g/dL 3.5-5 L 0531896779) ALK PHOS (test code = 76 U/L 34-122 9608748088) ALTv (test code = 15 U/L 5-50 1742-6) AST(SGOT) (test code = 17 U/L 13-40 1018881856) eGFR Calculation mL/min/1.73m2 (Non-) (test code = 6546830689) eGFR Calculation mL/min/1.73m2 () (test code = 0106873275) JOEY (test code = JOEY) Association of [...] tests). Lab Interpretation Abnormal (test code = 82329-6) [facility]. METABOLIC PANEL ([id number])2020-02-07 17:18:00 Test Item Value Reference Range Interpretation Comments NA (test code = 141 mmol/L 135-145 6125381562) K (test code = 4.3 mmol/L 3.5-5 9268445443) CL (test code = 103 mmol/L 98-108 5298926302) CO2 TOTAL (test code = 30 mmol/L 23-31 1397721288) AGAP (test code = 2-16 6100332807) BUN (test code = 13 mg/dL 7-23 6785797366) GLUCOSE (test code = 91 mg/dL 70-110 5796406522) CREATININE (test code = 0.80 mg/dL 0.6-1.25 7527017288) TOTAL BILI (test code = 0.6 mg/dL 0.1-1.2 8861231037) CALCIUM (test code = 9.7 mg/dL 8.6-10.6 2248134462) T PROTEIN (test code = 5.6 g/dL 6.3-8.2 L 1425079524) ALBUMIN (test code = 3.4 g/dL 3.5-5 L 8900800189) ALK PHOS (test code = 76 U/L 34-122 4870854670) ALTv (test code = 15 U/L 5-50 1742-6) AST(SGOT) (test code = 17 U/L 13-40 1438510137) eGFR Calculation mL/min/1.73m2 (Non-) (test code = 1518256855) eGFR Calculation mL/min/1.73m2 () (test code = 8246390409) JOEY (test code = JOEY) Association of [...] tests). Lab Interpretation Abnormal (test code = 24049-3) [facility]. METABOLIC PANEL ([id number])2020-02-07 17:18:00 Test Item Value Reference Range Interpretation Comments NA (test code = 141 mmol/L 135-145 9373257734) K (test code = 4.3 mmol/L 3.5-5 8759795216) CL (test code = 103 mmol/L 98-108 4513710503) CO2 TOTAL (test code = 30 mmol/L 23-31 0697607850) AGAP (test code = 2-16 0071236085) BUN (test code = 13 mg/dL 7-23 3341088372) GLUCOSE (test code = 91 mg/dL 70-110 9265106454) CREATININE (test code = 0.80 mg/dL 0.6-1.25 4582492822) TOTAL BILI (test code = 0.6 mg/dL 0.1-1.2 5450951848) CALCIUM (test code = 9.7 mg/dL 8.6-10.6 8651890944) T PROTEIN (test code = 5.6 g/dL 6.3-8.2 L 9334720159) ALBUMIN (test code = 3.4 g/dL 3.5-5 L 8437555396) ALK PHOS (test code = 76 U/L 34-122 6200366367) ALTv (test code = 15 U/L 5-50 1742-6) AST(SGOT) (test code = 17 U/L 13-40 4808099237) eGFR Calculation mL/min/1.73m2 (Non-) (test code = 1133827848) eGFR Calculation mL/min/1.73m2 () (test code = 7215439324) JOEY (test code = JOEY) Association of [...] tests). Lab Interpretation Abnormal (test code = 15419-0) [facility] ([id number])2020-02-07 17:18:00 Test Item Value Reference Range Interpretation Comments NA (test code = 141 mmol/L 135-145 3912893786) K (test code = 4.3 mmol/L 3.5-5 8673460762) CL (test code = 103 mmol/L 98-108 1556814712) CO2 TOTAL (test code = 30 mmol/L 23-31 0537176669) AGAP (test code = 2-16 3756890788) BUN (test code = 13 mg/dL 7-23 0256287152) GLUCOSE (test code = 91 mg/dL 70-110 6372096332) CREATININE (test code = 0.80 mg/dL 0.6-1.25 8931241900) TOTAL BILI (test code = 0.6 mg/dL 0.1-1.7 3561106620) CALCIUM (test code = 9.7 mg/dL 8.6-10.6 4404749223) T PROTEIN (test code = 5.6 g/dL 6.3-8.2 L 1388700419) ALBUMIN (test code = 3.4 g/dL 3.5-5 L 1979238774) ALK PHOS (test code = 76 U/L 34-122 3937774382) ALTv (test code = 15 U/L 5-50 1742-6) AST(SGOT) (test code = 17 U/L 13-40 5418763233) eGFR Calculation mL/min/1.73m2 (Non-) (test code = 5769594101) eGFR Calculation mL/min/1.73m2 () (test code = 4375401263) JOEY (test code = JOEY) Association of [...] tests). Lab Interpretation Abnormal (test code = 75374-8) [facility]. METABOLIC PANEL ([id number])2020-02-07 17:18:00 Test Item Value Reference Range Interpretation Comments NA (test code = 141 mmol/L 135-145 2887652855) K (test code = 4.3 mmol/L 3.5-5 7799799661) CL (test code = 103 mmol/L 98-108 6047667541) CO2 TOTAL (test code = 30 mmol/L 23-31 7598529070) AGAP (test code = 2-16 0457811022) BUN (test code = 13 mg/dL 7-23 6643799823) GLUCOSE (test code = 91 mg/dL 70-110 8035853191) CREATININE (test code = 0.80 mg/dL 0.6-1.25 7807464837) TOTAL BILI (test code = 0.6 mg/dL 0.1-1.4 8010118188) CALCIUM (test code = 9.7 mg/dL 8.6-10.6 9635873229) T PROTEIN (test code = 5.6 g/dL 6.3-8.2 L 4034614677) ALBUMIN (test code = 3.4 g/dL 3.5-5 L 5856347845) ALK PHOS (test code = 76 U/L 34-122 2505713211) ALTv (test code = 15 U/L 5-50 1742-6) AST(SGOT) (test code = 17 U/L 13-40 1059307216) eGFR Calculation mL/min/1.73m2 (Non-) (test code = 1748951544) eGFR Calculation mL/min/1.73m2 () (test code = 2839349738) JOEY (test code = JOEY) Association of [...] tests). Lab Interpretation Abnormal (test code = 99362-5) [facility]. METABOLIC PANEL ([id number])2020-02-07 17:18:00 Test Item Value Reference Range Interpretation Comments NA (test code = 141 mmol/L 135-145 2426015911) K (test code = 4.3 mmol/L 3.5-5 1117047011) CL (test code = 103 mmol/L 98-108 6793992282) CO2 TOTAL (test code = 30 mmol/L 23-31 1284285077) AGAP (test code = 2-16 0542830646) BUN (test code = 13 mg/dL 7-23 9440238021) GLUCOSE (test code = 91 mg/dL 70-110 7956257946) CREATININE (test code = 0.80 mg/dL 0.6-1.25 2719335054) TOTAL BILI (test code = 0.6 mg/dL 0.1-1.3 3600718449) CALCIUM (test code = 9.7 mg/dL 8.6-10.6 5449699101) T PROTEIN (test code = 5.6 g/dL 6.3-8.2 L 8682442524) ALBUMIN (test code = 3.4 g/dL 3.5-5 L 6956562179) ALK PHOS (test code = 76 U/L 34-122 3951763987) ALTv (test code = 15 U/L 5-50 1742-6) AST(SGOT) (test code = 17 U/L 13-40 4040936477) eGFR Calculation mL/min/1.73m2 (Non-) (test code = 6619962932) eGFR Calculation mL/min/1.73m2 () (test code = 7138359645) JOEY (test code = JOEY) Association of [...] tests). Lab Interpretation Abnormal (test code = 77189-7) [facility]. METABOLIC PANEL ([id number])2020-02-07 17:18:00 Test Item Value Reference Range Interpretation Comments NA (test code = 141 mmol/L 135-145 6010239622) K (test code = 4.3 mmol/L 3.5-5 3533743507) CL (test code = 103 mmol/L 98-108 0188940552) CO2 TOTAL (test code = 30 mmol/L 23-31 1259388917) AGAP (test code = 2-16 9551347384) BUN (test code = 13 mg/dL 7-23 5204922153) GLUCOSE (test code = 91 mg/dL 70-110 5768134449) CREATININE (test code = 0.80 mg/dL 0.6-1.25 6723180211) TOTAL BILI (test code = 0.6 mg/dL 0.1-1.4 3998947978) CALCIUM (test code = 9.7 mg/dL 8.6-10.6 3214026565) T PROTEIN (test code = 5.6 g/dL 6.3-8.2 L 6217652497) ALBUMIN (test code = 3.4 g/dL 3.5-5 L 1887094211) ALK PHOS (test code = 76 U/L 34-122 5862047162) ALTv (test code = 15 U/L 5-50 1742-6) AST(SGOT) (test code = 17 U/L 13-40 5974612180) eGFR Calculation mL/min/1.73m2 (Non-) (test code = 0697484681) eGFR Calculation mL/min/1.73m2 () (test code = 7181929621) JOEY (test code = JOEY) Association of [...] tests). Lab Interpretation Abnormal (test code = 32811-8) [facility]. METABOLIC PANEL ([id number])2020-02-07 17:18:00 Test Item Value Reference Range Interpretation Comments NA (test code = 141 mmol/L 135-145 3056861336) K (test code = 4.3 mmol/L 3.5-5 9787279134) CL (test code = 103 mmol/L 98-108 0252404207) CO2 TOTAL (test code = 30 mmol/L 23-31 7457559700) AGAP (test code = 2-16 2114712249) BUN (test code = 13 mg/dL 7-23 8455905067) GLUCOSE (test code = 91 mg/dL 70-110 5131852969) CREATININE (test code = 0.80 mg/dL 0.6-1.25 1446567496) TOTAL BILI (test code = 0.6 mg/dL 0.1-1.0 4039813575) CALCIUM (test code = 9.7 mg/dL 8.6-10.6 5955475530) T PROTEIN (test code = 5.6 g/dL 6.3-8.2 L 9348941777) ALBUMIN (test code = 3.4 g/dL 3.5-5 L 6104596170) ALK PHOS (test code = 76 U/L 34-122 7942989212) ALTv (test code = 15 U/L 5-50 1742-6) AST(SGOT) (test code = 17 U/L 13-40 5237058346) eGFR Calculation mL/min/1.73m2 (Non-) (test code = 8248467826) eGFR Calculation mL/min/1.73m2 () (test code = 9384856024) JOEY (test code = JOEY) Association of [...] tests). Lab Interpretation Abnormal (test code = 84896-5) [facility] ([id number])2020-02-07 17:18:00 Test Item Value Reference Range Interpretation Comments NA (test code = 141 mmol/L 135-145 4885293920) K (test code = 4.3 mmol/L 3.5-5 9410970361) CL (test code = 103 mmol/L 98-108 9599246879) CO2 TOTAL (test code = 30 mmol/L 23-31 6112830819) AGAP (test code = 2-16 2363303094) BUN (test code = 13 mg/dL 7-23 0221633044) GLUCOSE (test code = 91 mg/dL 70-110 2474502468) CREATININE (test code = 0.80 mg/dL 0.6-1.25 1490828442) TOTAL BILI (test code = 0.6 mg/dL 0.1-1.2 0232251796) CALCIUM (test code = 9.7 mg/dL 8.6-10.6 4964736204) T PROTEIN (test code = 5.6 g/dL 6.3-8.2 L 9582181865) ALBUMIN (test code = 3.4 g/dL 3.5-5 L 6395631468) ALK PHOS (test code = 76 U/L 34-122 1501513771) ALTv (test code = 15 U/L 5-50 1742-6) AST(SGOT) (test code = 17 U/L 13-40 1923926754) eGFR Calculation mL/min/1.73m2 (Non-) (test code = 0328859458) eGFR Calculation mL/min/1.73m2 () (test code = 5060006612) JOEY (test code = JOEY) Association of [...] tests). Lab Interpretation Abnormal (test code = 79651-7) [facility]. METABOLIC PANEL ([id number])2020-02-07 17:18:00 Test Item Value Reference Range Interpretation Comments NA (test code = 141 mmol/L 135-145 6259514157) K (test code = 4.3 mmol/L 3.5-5 2890126046) CL (test code = 103 mmol/L 98-108 2664558403) CO2 TOTAL (test code = 30 mmol/L 23-31 6690680775) AGAP (test code = 2-16 2670526556) BUN (test code = 13 mg/dL 7-23 6554861463) GLUCOSE (test code = 91 mg/dL 70-110 1971686572) CREATININE (test code = 0.80 mg/dL 0.6-1.25 6999094928) TOTAL BILI (test code = 0.6 mg/dL 0.1-1.1 1423459539) CALCIUM (test code = 9.7 mg/dL 8.6-10.6 0922237225) T PROTEIN (test code = 5.6 g/dL 6.3-8.2 L 3573125068) ALBUMIN (test code = 3.4 g/dL 3.5-5 L 1640376639) ALK PHOS (test code = 76 U/L 34-122 9420041573) ALTv (test code = 15 U/L 5-50 1742-6) AST(SGOT) (test code = 17 U/L 13-40 9011741811) eGFR Calculation mL/min/1.73m2 (Non-) (test code = 9130287678) eGFR Calculation mL/min/1.73m2 () (test code = 9537746323) JOEY (test code = JOEY) Association of [...] tests). Lab Interpretation Abnormal (test code = 18923-0) [facility]. METABOLIC PANEL ([id number])2020-02-07 17:18:00 Test Item Value Reference Range Interpretation Comments NA (test code = 141 mmol/L 135-145 5950966174) K (test code = 4.3 mmol/L 3.5-5 4504846059) CL (test code = 103 mmol/L 98-108 1748902862) CO2 TOTAL (test code = 30 mmol/L 23-31 3283360744) AGAP (test code = 2-16 1076323208) BUN (test code = 13 mg/dL 7-23 2227340468) GLUCOSE (test code = 91 mg/dL 70-110 7405101324) CREATININE (test code = 0.80 mg/dL 0.6-1.25 8717491828) TOTAL BILI (test code = 0.6 mg/dL 0.1-1.0 6140694716) CALCIUM (test code = 9.7 mg/dL 8.6-10.6 6349135029) T PROTEIN (test code = 5.6 g/dL 6.3-8.2 L 2597135774) ALBUMIN (test code = 3.4 g/dL 3.5-5 L 7489722764) ALK PHOS (test code = 76 U/L 34-122 8734788624) ALTv (test code = 15 U/L 5-50 1742-6) AST(SGOT) (test code = 17 U/L 13-40 6264413006) eGFR Calculation mL/min/1.73m2 (Non-) (test code = 9863718082) eGFR Calculation mL/min/1.73m2 () (test code = 3296312783) JOEY (test code = JOEY) Association of [...] tests). Lab Interpretation Abnormal (test code = 07247-2) [facility]. METABOLIC PANEL ([id number])2020-02-07 17:18:00 Test Item Value Reference Range Interpretation Comments NA (test code = 141 mmol/L 135-145 8424149558) K (test code = 4.3 mmol/L 3.5-5 0331984066) CL (test code = 103 mmol/L 98-108 2883580115) CO2 TOTAL (test code = 30 mmol/L 23-31 8852085978) AGAP (test code = 2-16 9785931521) BUN (test code = 13 mg/dL 7-23 9002197690) GLUCOSE (test code = 91 mg/dL 70-110 1861258368) CREATININE (test code = 0.80 mg/dL 0.6-1.25 8147475251) TOTAL BILI (test code = 0.6 mg/dL 0.1-1.7 5854481848) CALCIUM (test code = 9.7 mg/dL 8.6-10.6 8109284350) T PROTEIN (test code = 5.6 g/dL 6.3-8.2 L 2970628336) ALBUMIN (test code = 3.4 g/dL 3.5-5 L 1059164530) ALK PHOS (test code = 76 U/L 34-122 4753577791) ALTv (test code = 15 U/L 5-50 1742-6) AST(SGOT) (test code = 17 U/L 13-40 6165695712) eGFR Calculation mL/min/1.73m2 (Non-) (test code = 2699056755) eGFR Calculation mL/min/1.73m2 () (test code = 2005460007) JOEY (test code = JOEY) Association of [...] tests). Lab Interpretation Abnormal (test code = 76119-6) [facility]. METABOLIC PANEL ([id number])2020-02-07 17:18:00 Test Item Value Reference Range Interpretation Comments NA (test code = 141 mmol/L 135-145 6924587083) K (test code = 4.3 mmol/L 3.5-5 5146673334) CL (test code = 103 mmol/L 98-108 7614452446) CO2 TOTAL (test code = 30 mmol/L 23-31 9903162480) AGAP (test code = 2-16 0633435790) BUN (test code = 13 mg/dL 7-23 1453230357) GLUCOSE (test code = 91 mg/dL 70-110 6144463657) CREATININE (test code = 0.80 mg/dL 0.6-1.25 8282206424) TOTAL BILI (test code = 0.6 mg/dL 0.1-1.6 5168574644) CALCIUM (test code = 9.7 mg/dL 8.6-10.6 5055360503) T PROTEIN (test code = 5.6 g/dL 6.3-8.2 L 8371516774) ALBUMIN (test code = 3.4 g/dL 3.5-5 L 2451983462) ALK PHOS (test code = 76 U/L 34-122 2769424608) ALTv (test code = 15 U/L 5-50 1742-6) AST(SGOT) (test code = 17 U/L 13-40 1157609217) eGFR Calculation mL/min/1.73m2 (Non-) (test code = 1131739494) eGFR Calculation mL/min/1.73m2 () (test code = 9605135340) JOEY (test code = JOEY) Association of [...] tests). Lab Interpretation Abnormal (test code = 19523-2) [id number] 17:06:00 Test Item Value Reference Range Interpretation Comments VALPROIC A (test code = 38 ug/mL 50-100 L 2333078459) JOEY (test code = JOEY) Toxic Range: ?Greater than 100 ug/mL Lab Interpretation (test Abnormal code = 15360-4) [id number] 17:06:00 Test Item Value Reference Range Interpretation Comments VALPROIC A (test code = 38 ug/mL 50-100 L 0527747741) JOEY (test code = JOEY) Toxic Range: ?Greater than 100 ug/mL Lab Interpretation (test Abnormal code = 76985-8) [facility] [id number] 17:06:00 Test Item Value Reference Range Interpretation Comments VALPROIC A (test code = 38 ug/mL 50-100 L 2989533151) JOEY (test code = JOEY) Toxic Range: ?Greater than 100 ug/mL Lab Interpretation (test Abnormal code = 91931-5) [facility] [id number] 17:06:00 Test Item Value Reference Range Interpretation Comments VALPROIC A (test code = 38 ug/mL 50-100 L 1310366256) JOEY (test code = JOEY) Toxic Range: ?Greater than 100 ug/mL Lab Interpretation (test Abnormal code = 32411-3) [facility] [id number] 17:06:00 Test Item Value Reference Range Interpretation Comments VALPROIC A (test code = 38 ug/mL 50-100 L 1639559518) JOEY (test code = JOEY) Toxic Range: ?Greater than 100 ug/mL Lab Interpretation (test Abnormal code = 19459-7) [facility] [id number] 17:06:00 Test Item Value Reference Range Interpretation Comments VALPROIC A (test code = 38 ug/mL 50-100 L 6642927325) JOEY (test code = JOEY) Toxic Range: ?Greater than 100 ug/mL Lab Interpretation (test Abnormal code = 48431-0) [facility] [id number] 17:06:00 Test Item Value Reference Range Interpretation Comments VALPROIC A (test code = 38 ug/mL 50-100 L 2603817868) JOEY (test code = JOEY) Toxic Range: ?Greater than 100 ug/mL Lab Interpretation (test Abnormal code = 81104-6) [facility] [id number] 17:06:00 Test Item Value Reference Range Interpretation Comments VALPROIC A (test code = 38 ug/mL 50-100 L 9474450355) JOEY (test code = JOEY) Toxic Range: ?Greater than 100 ug/mL Lab Interpretation (test Abnormal code = 55153-9) [facility] [id number] 17:06:00 Test Item Value Reference Range Interpretation Comments VALPROIC A (test code = 38 ug/mL 50-100 L 3230360951) JOEY (test code = JOEY) Toxic Range: ?Greater than 100 ug/mL Lab Interpretation (test Abnormal code = 72028-5) [facility] [id number] 17:06:00 Test Item Value Reference Range Interpretation Comments VALPROIC A (test code = 38 ug/mL 50-100 L 7058683848) JOEY (test code = JOEY) Toxic Range: ?Greater than 100 ug/mL Lab Interpretation (test Abnormal code = 76111-3) [facility] [id number] 17:06:00 Test Item Value Reference Range Interpretation Comments VALPROIC A (test code = 38 ug/mL 50-100 L 8719053213) JOEY (test code = JOEY) Toxic Range: ?Greater than 100 ug/mL Lab Interpretation (test Abnormal code = 10030-4) [facility] [id number] 17:06:00 Test Item Value Reference Range Interpretation Comments VALPROIC A (test code = 38 ug/mL 50-100 L 7600390499) JOEY (test code = JOEY) Toxic Range: ?Greater than 100 ug/mL Lab Interpretation (test Abnormal code = 31041-9) [facility] [id number] 17:06:00 Test Item Value Reference Range Interpretation Comments VALPROIC A (test code = 38 ug/mL 50-100 L 5215674517) JOEY (test code = JOEY) Toxic Range: ?Greater than 100 ug/mL Lab Interpretation (test Abnormal code = 09213-0) [facility] [id number] 17:06:00 Test Item Value Reference Range Interpretation Comments VALPROIC A (test code = 38 ug/mL 50-100 L 2359527424) JOEY (test code = JOEY) Toxic Range: ?Greater than 100 ug/mL Lab Interpretation (test Abnormal code = 99220-8) [facility] [id number] 17:06:00 Test Item Value Reference Range Interpretation Comments VALPROIC A (test code = 38 ug/mL 50-100 L 8359757806) JOEY (test code = JOEY) Toxic Range: ?Greater than 100 ug/mL Lab Interpretation (test Abnormal code = 60144-3) [facility]A1C)2020-02-07 16:23:00 Test Item Value Reference Range Interpretation Comments HGB A1C (test code = 5.1 % 4-6 4548-4) JOEY (test code = JOEY) %A1C (NGSP) Interpretation (ADA)4.8-5.6 ? ? Normal or (Non-Diabetic Range)5.7-6.4 ? ? Increased Risk (Pre-Diabetic)>6.5 ?Diabetes Indicated Lab Interpretation Normal (test code = 73030-8) [facility]2020-02-07 16:23:00 Test Item Value Reference Range Interpretation Comments HGB A1C (test code = 5.1 % 4-6 4548-4) JOEY (test code = JOEY) %A1C (NGSP) Interpretation (ADA)4.8-5.6 ? ? Normal or (Non-Diabetic Range)5.7-6.4 ? ? Increased Risk (Pre-Diabetic)>6.5 ?Diabetes Indicated Lab Interpretation Normal (test code = 70936-8) [facility]2020-02-07 16:23:00 Test Item Value Reference Range Interpretation Comments HGB A1C (test code = 5.1 % 4-6 4548-4) JOEY (test code = JOEY) %A1C (NGSP) Interpretation (ADA)4.8-5.6 ? ? Normal or (Non-Diabetic Range)5.7-6.4 ? ? Increased Risk (Pre-Diabetic)>6.5 ?Diabetes Indicated Lab Interpretation Normal (test code = 87571-2) [facility]2020-02-07 16:23:00 Test Item Value Reference Range Interpretation Comments HGB A1C (test code = 5.1 % 4-6 4548-4) JOEY (test code = JOEY) %A1C (NGSP) Interpretation (ADA)4.8-5.6 ? ? Normal or (Non-Diabetic Range)5.7-6.4 ? ? Increased Risk (Pre-Diabetic)>6.5 ?Diabetes Indicated Lab Interpretation Normal (test code = 13434-5) [facility]2020-02-07 16:23:00 Test Item Value Reference Range Interpretation Comments HGB A1C (test code = 5.1 % 4-6 4548-4) JOEY (test code = JOEY) %A1C (NGSP) Interpretation (ADA)4.8-5.6 ? ? Normal or (Non-Diabetic Range)5.7-6.4 ? ? Increased Risk (Pre-Diabetic)>6.5 ?Diabetes Indicated Lab Interpretation Normal (test code = 77920-5) [facility]2020-02-07 16:23:00 Test Item Value Reference Range Interpretation Comments HGB A1C (test code = 5.1 % 4-6 4548-4) JOEY (test code = JOEY) %A1C (NGSP) Interpretation (ADA)4.8-5.6 ? ? Normal or (Non-Diabetic Range)5.7-6.4 ? ? Increased Risk (Pre-Diabetic)>6.5 ?Diabetes Indicated Lab Interpretation Normal (test code = 58732-0) [facility]2020-02-07 16:23:00 Test Item Value Reference Range Interpretation Comments HGB A1C (test code = 5.1 % 4-6 4548-4) JOEY (test code = JOEY) %A1C (NGSP) Interpretation (ADA)4.8-5.6 ? ? Normal or (Non-Diabetic Range)5.7-6.4 ? ? Increased Risk (Pre-Diabetic)>6.5 ?Diabetes Indicated Lab Interpretation Normal (test code = 61204-4) [facility]2020-02-07 16:23:00 Test Item Value Reference Range Interpretation Comments HGB A1C (test code = 5.1 % 4-6 4548-4) JOEY (test code = JOEY) %A1C (NGSP) Interpretation (ADA)4.8-5.6 ? ? Normal or (Non-Diabetic Range)5.7-6.4 ? ? Increased Risk (Pre-Diabetic)>6.5 ?Diabetes Indicated Lab Interpretation Normal (test code = 00393-7) [facility]2020-02-07 16:23:00 Test Item Value Reference Range Interpretation Comments HGB A1C (test code = 5.1 % 4-6 4548-4) JOEY (test code = JOEY) %A1C (NGSP) Interpretation (ADA)4.8-5.6 ? ? Normal or (Non-Diabetic Range)5.7-6.4 ? ? Increased Risk (Pre-Diabetic)>6.5 ?Diabetes Indicated Lab Interpretation Normal (test code = 69544-2) [facility]2020-02-07 16:23:00 Test Item Value Reference Range Interpretation Comments HGB A1C (test code = 5.1 % 4-6 4548-4) JOEY (test code = JOEY) %A1C (NGSP) Interpretation (ADA)4.8-5.6 ? ? Normal or (Non-Diabetic Range)5.7-6.4 ? ? Increased Risk (Pre-Diabetic)>6.5 ?Diabetes Indicated Lab Interpretation Normal (test code = 00017-6) [facility]2020-02-07 16:23:00 Test Item Value Reference Range Interpretation Comments HGB A1C (test code = 5.1 % 4-6 4548-4) JOEY (test code = JOEY) %A1C (NGSP) Interpretation (ADA)4.8-5.6 ? ? Normal or (Non-Diabetic Range)5.7-6.4 ? ? Increased Risk (Pre-Diabetic)>6.5 ?Diabetes Indicated Lab Interpretation Normal (test code = 16534-7) [facility]2020-02-07 16:23:00 Test Item Value Reference Range Interpretation Comments HGB A1C (test code = 5.1 % 4-6 4548-4) JOEY (test code = JOEY) %A1C (NGSP) Interpretation (ADA)4.8-5.6 ? ? Normal or (Non-Diabetic Range)5.7-6.4 ? ? Increased Risk (Pre-Diabetic)>6.5 ?Diabetes Indicated Lab Interpretation Normal (test code = 11766-2) [facility]2020-02-07 16:23:00 Test Item Value Reference Range Interpretation Comments HGB A1C (test code = 5.1 % 4-6 4548-4) JOEY (test code = JOEY) %A1C (NGSP) Interpretation (ADA)4.8-5.6 ? ? Normal or (Non-Diabetic Range)5.7-6.4 ? ? Increased Risk (Pre-Diabetic)>6.5 ?Diabetes Indicated Lab Interpretation Normal (test code = 66540-3) [facility]2020-02-07 16:23:00 Test Item Value Reference Range Interpretation Comments HGB A1C (test code = 5.1 % 4-6 4548-4) JOEY (test code = JOEY) %A1C (NGSP) Interpretation (ADA)4.8-5.6 ? ? Normal or (Non-Diabetic Range)5.7-6.4 ? ? Increased Risk (Pre-Diabetic)>6.5 ?Diabetes Indicated Lab Interpretation Normal (test code = 40958-7) [facility]2020-02-07 16:23:00 Test Item Value Reference Range Interpretation Comments HGB A1C (test code = 5.1 % 4-6 4548-4) JOEY (test code = JOEY) %A1C (NGSP) Interpretation (ADA)4.8-5.6 ? ? Normal or (Non-Diabetic Range)5.7-6.4 ? ? Increased Risk (Pre-Diabetic)>6.5 ?Diabetes Indicated Lab Interpretation Normal (test code = 40223-1) [facility] WITH [id number] 15:41:00 Test Item Value Reference Range Interpretation Comments WBC (test code = See_Comment [Automated 9390-2) message] The sy stem which generated this [...] RDW-SD (test code = 51.1 fL 38.5-51.6 26143-1) RDW-CV (test code = 13.9 % 12.1-15.4 788-0) PLT (test code = See_Comment [Automated 777-3) message] The sy stem which generated this result transmitted reference range : 150 - 328 10*3/ ?L. The reference r sarahy was not used to interpret this result as normal/abnormal . MPV (test code = 10.3 fL 9.8-13 87949-9) NRBC/100 WBC (test See_Comment [Automat ed code = 7506073932) message] The system which generated this result transmitted reference range : 0.0 - 10.0 /100 WBCs. The refer ence range was not u sed to interpret th is result as normal/abnormal . NRBC x10^3 (test code <0.01 See_Comment [Auto mated = 2048904616) message] The s ystem which generated this result transmitted reference range : 10*3/?L. The reference range was not used to interpret this result as normal/abnormal . GRAN MAT (NEUT) % 64.3 % (test code = 770-8) IMM GRAN % (test code 0.30 % = 6796222536) LYMPH % (test code = 22.6 % 736-9) MONO % (test code = 8.8 % 5905-5) EOS % (test code = 3.0 % 713-8) BASO % (test code = 1.0 % 706-2) GRAN MAT x10^3(ANC) 4.02 10*3/uL 1.99-6.95 (test code = 1937598562) IMM GRAN x10^3 (test <0.03 0-0.06 code = 5552842762) LYMPH x10^3 (test code 1.41 10*3/uL 1.09-3.23 = 731-0) MONO x10^3 (test code 0.55 10*3/uL 0.36-1.02 = 742-7) EOS x10^3 (test code = 0.19 10*3/uL 0.06-0.53 711-2) BASO x10^3 (test code 0.06 10*3/uL 0.01-0.09 = 704-7) Lab Interpretation Abnormal (test code = 62435-7) [facility] WITH [id number] 15:41:00 Test Item Value Reference Range Interpretation Comments WBC (test code = See_Comment [Automated 1590-2) message] The sy stem which generated this result transmitted reference range : 4.20 - 10.70 10*3/?L. The reference range was not used to interpret this result as normal/abnormal . RBC (test code = See_Comment [Automated 739-8) message] The sy stem which generated this [...] RDW-SD (test code = 51.1 fL 38.5-51.6 41843-9) RDW-CV (test code = 13.9 % 12.1-15.4 788-0) PLT (test code = See_Comment [Automated 777-3) message] The sy stem which generated this result transmitted reference range : 150 - 328 10*3/ ?L. The reference r sarahy was not used to interpret this result as normal/abnormal . MPV (test code = 10.3 fL 9.8-13 35445-8) NRBC/100 WBC (test See_Comment [Automat ed code = 3279760382) message] The system which generated this result transmitted reference range : 0.0 - 10.0 /100 WBCs. The refer ence range was not u sed to interpret th is result as normal/abnormal . NRBC x10^3 (test code <0.01 See_Comment [Auto mated = 7689597132) message] The s ystem which generated this result transmitted reference range : 10*3/?L. The reference range was not used to interpret this result as normal/abnormal . GRAN MAT (NEUT) % 64.3 % (test code = 770-8) IMM GRAN % (test code 0.30 % = 5856368756) LYMPH % (test code = 22.6 % 736-9) MONO % (test code = 8.8 % 5905-5) EOS % (test code = 3.0 % 713-8) BASO % (test code = 1.0 % 706-2) GRAN MAT x10^3(ANC) 4.02 10*3/uL 1.99-6.95 (test code = 9994149657) IMM GRAN x10^3 (test <0.03 0-0.06 code = 1786357869) LYMPH x10^3 (test code 1.41 10*3/uL 1.09-3.23 = 731-0) MONO x10^3 (test code 0.55 10*3/uL 0.36-1.02 = 742-7) EOS x10^3 (test code = 0.19 10*3/uL 0.06-0.53 711-2) BASO x10^3 (test code 0.06 10*3/uL 0.01-0.09 = 704-7) Lab Interpretation Abnormal (test code = 66644-1) [facility] WITH [id number] 15:41:00 Test Item Value Reference Range Interpretation Comments WBC (test code = See_Comment [Automated 4090-2) message] The sy stem which generated this [...] RDW-SD (test code = 51.1 fL 38.5-51.6 30647-9) RDW-CV (test code = 13.9 % 12.1-15.4 788-0) PLT (test code = See_Comment [Automated 777-3) message] The sy stem which generated this result transmitted reference range : 150 - 328 10*3/ ?L. The reference r sarahy was not used to interpret this result as normal/abnormal . MPV (test code = 10.3 fL 9.8-13 09279-9) NRBC/100 WBC (test See_Comment [Automat ed code = 1033635581) message] The system which generated this result transmitted reference range : 0.0 - 10.0 /100 WBCs. The refer ence range was not u sed to interpret th is result as normal/abnormal . NRBC x10^3 (test code <0.01 See_Comment [Auto mated = 9711377664) message] The s ystem which generated this result transmitted reference range : 10*3/?L. The reference range was not used to interpret this result as normal/abnormal . GRAN MAT (NEUT) % 64.3 % (test code = 770-8) IMM GRAN % (test code 0.30 % = 5007958808) LYMPH % (test code = 22.6 % 736-9) MONO % (test code = 8.8 % 5905-5) EOS % (test code = 3.0 % 713-8) BASO % (test code = 1.0 % 706-2) GRAN MAT x10^3(ANC) 4.02 10*3/uL 1.99-6.95 (test code = 6274440798) IMM GRAN x10^3 (test <0.03 0-0.06 code = 2328999831) LYMPH x10^3 (test code 1.41 10*3/uL 1.09-3.23 = 731-0) MONO x10^3 (test code 0.55 10*3/uL 0.36-1.02 = 742-7) EOS x10^3 (test code = 0.19 10*3/uL 0.06-0.53 711-2) BASO x10^3 (test code 0.06 10*3/uL 0.01-0.09 = 704-7) Lab Interpretation Abnormal (test code = 63678-5) [facility] WITH [id number] 15:41:00 Test Item Value Reference Range Interpretation [...] RDW-SD (test code = 51.1 fL 38.5-51.6 33323-5) RDW-CV (test code = 13.9 % 12.1-15.4 788-0) PLT (test code = See_Comment [Automated 777-3) message] The sy stem which generated this result transmitted reference range : 150 - 328 10*3/ ?L. The reference r sarahy was not used to interpret this result as normal/abnormal . MPV (test code = 10.3 fL 9.8-13 24617-3) NRBC/100 WBC (test See_Comment [Automat ed code = 2501725079) message] The system which generated this result transmitted reference range : 0.0 - 10.0 /100 WBCs. The refer ence range was not u sed to interpret th is result as normal/abnormal . NRBC x10^3 (test code <0.01 See_Comment [Auto mated = 2801471639) message] The s ystem which generated this result transmitted reference range : 10*3/?L. The reference range was not used to interpret this result as normal/abnormal . GRAN MAT (NEUT) % 64.3 % (test code = 770-8) IMM GRAN % (test code 0.30 % = 3406637168) LYMPH % (test code = 22.6 % 736-9) MONO % (test code = 8.8 % 5905-5) EOS % (test code = 3.0 % 713-8) BASO % (test code = 1.0 % 706-2) GRAN MAT x10^3(ANC) 4.02 10*3/uL 1.99-6.95 (test code = 3217132325) IMM GRAN x10^3 (test <0.03 0-0.06 code = 2820762427) LYMPH x10^3 (test code 1.41 10*3/uL 1.09-3.23 = 731-0) MONO x10^3 (test code 0.55 10*3/uL 0.36-1.02 = 742-7) EOS x10^3 (test code = 0.19 10*3/uL 0.06-0.53 711-2) BASO x10^3 (test code 0.06 10*3/uL 0.01-0.09 = 704-7) Lab Interpretation Abnormal (test code = 37979-9) [facility] WITH [id number] 15:41:00 Test Item Value Reference Range Interpretation [...] RDW-SD (test code = 51.1 fL 38.5-51.6 09095-0) RDW-CV (test code = 13.9 % 12.1-15.4 788-0) PLT (test code = See_Comment [Automated 777-3) message] The sy stem which generated this result transmitted reference range : 150 - 328 10*3/ ?L. The reference r sarahy was not used to interpret this result as normal/abnormal . MPV (test code = 10.3 fL 9.8-13 74030-1) NRBC/100 WBC (test See_Comment [Automat ed code = [id number]) message] The system which generated this result transmitted reference range : 0.0 - 10.0 /100 WBCs. The refer ence range was not u sed to interpret th is result as normal/abnormal . NRBC x10^3 (test code <0.01 See_Comment [Auto mated = [id number]) message] The s ystem which generated this result transmitted reference range : 10*3/?L. The reference range was not used to interpret this result as normal/abnormal . GRAN MAT (NEUT) % 64.3 % (test code = 770-8) IMM GRAN % (test code 0.30 % = [id number]) LYMPH % (test code = 22.6 % 736-9) MONO % (test code = 8.8 % 5905-5) EOS % (test code = 3.0 % 713-8) BASO % (test code = 1.0 % 706-2) GRAN MAT x10^3(ANC) 4.02 10*3/uL 1.99-6.95 (test code = [id number]) IMM GRAN x10^3 (test <0.03 0-0.06 code = [id number]) LYMPH x10^3 (test code 1.41 10*3/uL 1.09-3.23 = 731-0) MONO x10^3 (test code 0.55 10*3/uL 0.36-1.02 = 742-7) EOS x10^3 (test code = 0.19 10*3/uL 0.06-0.53 711-2) BASO x10^3 (test code 0.06 10*3/uL 0.01-0.09 = 704-7) Lab Interpretation Abnormal (test code = 71380-1) [facility] WITH [id number] 15:41:00 Test Item Value Reference Range Interpretation [...] RDW-SD (test code = 51.1 fL 38.5-51.6 97264-4) RDW-CV (test code = 13.9 % 12.1-15.4 788-0) PLT (test code = See_Comment [Automated 777-3) message] The sy stem which generated this result transmitted reference range : 150 - 328 10*3/ ?L. The reference r sarahy was not used to interpret this result as normal/abnormal . MPV (test code = 10.3 fL 9.8-13 58436-6) NRBC/100 WBC (test See_Comment [Automat ed code = 3732634816) message] The system which generated this result transmitted reference range : 0.0 - 10.0 /100 WBCs. The refer ence range was not u sed to interpret th is result as normal/abnormal . NRBC x10^3 (test code <0.01 See_Comment [Auto mated = 3013001211) message] The s ystem which generated this result transmitted reference range : 10*3/?L. The reference range was not used to interpret this result as normal/abnormal . GRAN MAT (NEUT) % 64.3 % (test code = 770-8) IMM GRAN % (test code 0.30 % = 9982675937) LYMPH % (test code = 22.6 % 736-9) MONO % (test code = 8.8 % 5905-5) EOS % (test code = 3.0 % 713-8) BASO % (test code = 1.0 % 706-2) GRAN MAT x10^3(ANC) 4.02 10*3/uL 1.99-6.95 (test code = 4677740266) IMM GRAN x10^3 (test <0.03 0-0.06 code = 3530556557) LYMPH x10^3 (test code 1.41 10*3/uL 1.09-3.23 = 731-0) MONO x10^3 (test code 0.55 10*3/uL 0.36-1.02 = 742-7) EOS x10^3 (test code = 0.19 10*3/uL 0.06-0.53 711-2) BASO x10^3 (test code 0.06 10*3/uL 0.01-0.09 = 704-7) Lab Interpretation Abnormal (test code = 81471-6) [facility] WITH [id number] 15:41:00 Test Item Value Reference Range Interpretation Comments WBC (test code = See_Comment [Automated 0090-2) message] The sy stem which generated this result transmitted reference range : 4.20 - 10.70 10*3/?L. The reference range was not used to interpret this result as normal/abnormal . RBC (test code = See_Comment [Automated 615-8) message] The sy stem which generated this [...] RDW-SD (test code = 51.1 fL 38.5-51.6 82409-3) RDW-CV (test code = 13.9 % 12.1-15.4 788-0) PLT (test code = See_Comment [Automated 777-3) message] The sy stem which generated this result transmitted reference range : 150 - 328 10*3/ ?L. The reference r sarahy was not used to interpret this result as normal/abnormal . MPV (test code = 10.3 fL 9.8-13 11579-5) NRBC/100 WBC (test See_Comment [Automat ed code = 2128348197) message] The system which generated this result transmitted reference range : 0.0 - 10.0 /100 WBCs. The refer ence range was not u sed to interpret th is result as normal/abnormal . NRBC x10^3 (test code <0.01 See_Comment [Auto mated = 9995235025) message] The s ystem which generated this result transmitted reference range : 10*3/?L. The reference range was not used to interpret this result as normal/abnormal . GRAN MAT (NEUT) % 64.3 % (test code = 770-8) IMM GRAN % (test code 0.30 % = 7673329318) LYMPH % (test code = 22.6 % 736-9) MONO % (test code = 8.8 % 5905-5) EOS % (test code = 3.0 % 713-8) BASO % (test code = 1.0 % 706-2) GRAN MAT x10^3(ANC) 4.02 10*3/uL 1.99-6.95 (test code = 5278109590) IMM GRAN x10^3 (test <0.03 0-0.06 code = 2989764203) LYMPH x10^3 (test code 1.41 10*3/uL 1.09-3.23 = 731-0) MONO x10^3 (test code 0.55 10*3/uL 0.36-1.02 = 742-7) EOS x10^3 (test code = 0.19 10*3/uL 0.06-0.53 711-2) BASO x10^3 (test code 0.06 10*3/uL 0.01-0.09 = 704-7) Lab Interpretation Abnormal (test code = 77924-4) [facility] WITH [id number] 15:41:00 Test Item Value Reference Range Interpretation [...] RDW-SD (test code = 51.1 fL 38.5-51.6 86290-5) RDW-CV (test code = 13.9 % 12.1-15.4 788-0) PLT (test code = See_Comment [Automated 777-3) message] The sy stem which generated this result transmitted reference range : 150 - 328 10*3/ ?L. The reference r sarahy was not used to interpret this result as normal/abnormal . MPV (test code = 10.3 fL 9.8-13 74958-8) NRBC/100 WBC (test See_Comment [Automat ed code = 4634442805) message] The system which generated this result transmitted reference range : 0.0 - 10.0 /100 WBCs. The refer ence range was not u sed to interpret th is result as normal/abnormal . NRBC x10^3 (test code <0.01 See_Comment [Auto mated = 1298460442) message] The s ystem which generated this result transmitted reference range : 10*3/?L. The reference range was not used to interpret this result as normal/abnormal . GRAN MAT (NEUT) % 64.3 % (test code = 770-8) IMM GRAN % (test code 0.30 % = 2169612533) LYMPH % (test code = 22.6 % 736-9) MONO % (test code = 8.8 % 5905-5) EOS % (test code = 3.0 % 713-8) BASO % (test code = 1.0 % 706-2) GRAN MAT x10^3(ANC) 4.02 10*3/uL 1.99-6.95 (test code = 7037921985) IMM GRAN x10^3 (test <0.03 0-0.06 code = 8255267590) LYMPH x10^3 (test code 1.41 10*3/uL 1.09-3.23 = 731-0) MONO x10^3 (test code 0.55 10*3/uL 0.36-1.02 = 742-7) EOS x10^3 (test code = 0.19 10*3/uL 0.06-0.53 711-2) BASO x10^3 (test code 0.06 10*3/uL 0.01-0.09 = 704-7) Lab Interpretation Abnormal (test code = 47622-3) [facility] WITH [id number] 15:41:00 Test Item Value Reference Range Interpretation Comments WBC (test code = See_Comment [Automated 7290-2) message] The sy stem which generated this result transmitted reference range : 4.20 - 10.70 10*3/?L. The reference range was not used to interpret this result as normal/abnormal . RBC (test code = See_Comment [Automated 609-8) message] The sy stem which generated this [...] RDW-SD (test code = 51.1 fL 38.5-51.6 87691-6) RDW-CV (test code = 13.9 % 12.1-15.4 788-0) PLT (test code = See_Comment [Automated 777-3) message] The sy stem which generated this result transmitted reference range : 150 - 328 10*3/ ?L. The reference r sarahy was not used to interpret this result as normal/abnormal . MPV (test code = 10.3 fL 9.8-13 36463-3) NRBC/100 WBC (test See_Comment [Automat ed code = 6455948829) message] The system which generated this result transmitted reference range : 0.0 - 10.0 /100 WBCs. The refer ence range was not u sed to interpret th is result as normal/abnormal . NRBC x10^3 (test code <0.01 See_Comment [Auto mated = 9382602556) message] The s ystem which generated this result transmitted reference range : 10*3/?L. The reference range was not used to interpret this result as normal/abnormal . GRAN MAT (NEUT) % 64.3 % (test code = 770-8) IMM GRAN % (test code 0.30 % = 0836906369) LYMPH % (test code = 22.6 % 736-9) MONO % (test code = 8.8 % 5905-5) EOS % (test code = 3.0 % 713-8) BASO % (test code = 1.0 % 706-2) GRAN MAT x10^3(ANC) 4.02 10*3/uL 1.99-6.95 (test code = 3452719355) IMM GRAN x10^3 (test <0.03 0-0.06 code = 1198522893) LYMPH x10^3 (test code 1.41 10*3/uL 1.09-3.23 = 731-0) MONO x10^3 (test code 0.55 10*3/uL 0.36-1.02 = 742-7) EOS x10^3 (test code = 0.19 10*3/uL 0.06-0.53 711-2) BASO x10^3 (test code 0.06 10*3/uL 0.01-0.09 = 704-7) Lab Interpretation Abnormal (test code = 15208-3) [facility] WITH [id number] 15:41:00 Test Item Value Reference Range Interpretation [...] RDW-SD (test code = 51.1 fL 38.5-51.6 55094-8) RDW-CV (test code = 13.9 % 12.1-15.4 788-0) PLT (test code = See_Comment [Automated 777-3) message] The sy stem which generated this result transmitted reference range : 150 - 328 10*3/ ?L. The reference r sarahy was not used to interpret this result as normal/abnormal . MPV (test code = 10.3 fL 9.8-13 05606-3) NRBC/100 WBC (test See_Comment [Automat ed code = 4504318425) message] The system which generated this result transmitted reference range : 0.0 - 10.0 /100 WBCs. The refer ence range was not u sed to interpret th is result as normal/abnormal . NRBC x10^3 (test code <0.01 See_Comment [Auto mated = 0467651333) message] The s ystem which generated this result transmitted reference range : 10*3/?L. The reference range was not used to interpret this result as normal/abnormal . GRAN MAT (NEUT) % 64.3 % (test code = 770-8) IMM GRAN % (test code 0.30 % = 6295882825) LYMPH % (test code = 22.6 % 736-9) MONO % (test code = 8.8 % 5905-5) EOS % (test code = 3.0 % 713-8) BASO % (test code = 1.0 % 706-2) GRAN MAT x10^3(ANC) 4.02 10*3/uL 1.99-6.95 (test code = 3264136274) IMM GRAN x10^3 (test <0.03 0-0.06 code = 6520696131) LYMPH x10^3 (test code 1.41 10*3/uL 1.09-3.23 = 731-0) MONO x10^3 (test code 0.55 10*3/uL 0.36-1.02 = 742-7) EOS x10^3 (test code = 0.19 10*3/uL 0.06-0.53 711-2) BASO x10^3 (test code 0.06 10*3/uL 0.01-0.09 = 704-7) Lab Interpretation Abnormal (test code = 94165-2) [facility] WITH [id number] 15:41:00 Test Item Value Reference Range Interpretation Comments WBC (test code = See_Comment [Automated 0290-2) message] The sy stem which generated this [...] RDW-SD (test code = 51.1 fL 38.5-51.6 30102-6) RDW-CV (test code = 13.9 % 12.1-15.4 788-0) PLT (test code = See_Comment [Automated 777-3) message] The sy stem which generated this result transmitted reference range : 150 - 328 10*3/ ?L. The reference r sarahy was not used to interpret this result as normal/abnormal . MPV (test code = 10.3 fL 9.8-13 29134-7) NRBC/100 WBC (test See_Comment [Automat ed code = 7245865009) message] The system which generated this result transmitted reference range : 0.0 - 10.0 /100 WBCs. The refer ence range was not u sed to interpret th is result as normal/abnormal . NRBC x10^3 (test code <0.01 See_Comment [Auto mated = 6101097878) message] The s ystem which generated this result transmitted reference range : 10*3/?L. The reference range was not used to interpret this result as normal/abnormal . GRAN MAT (NEUT) % 64.3 % (test code = 770-8) IMM GRAN % (test code 0.30 % = 6734471994) LYMPH % (test code = 22.6 % 736-9) MONO % (test code = 8.8 % 5905-5) EOS % (test code = 3.0 % 713-8) BASO % (test code = 1.0 % 706-2) GRAN MAT x10^3(ANC) 4.02 10*3/uL 1.99-6.95 (test code = 4034687366) IMM GRAN x10^3 (test <0.03 0-0.06 code = 9131702245) LYMPH x10^3 (test code 1.41 10*3/uL 1.09-3.23 = 731-0) MONO x10^3 (test code 0.55 10*3/uL 0.36-1.02 = 742-7) EOS x10^3 (test code = 0.19 10*3/uL 0.06-0.53 711-2) BASO x10^3 (test code 0.06 10*3/uL 0.01-0.09 = 704-7) Lab Interpretation Abnormal (test code = 37093-7) [facility] WITH [id number] 15:41:00 Test Item Value Reference Range Interpretation Comments WBC (test code = See_Comment [Automated 0232-2) message] The sy stem which generated this result transmitted reference range : 4.20 - 10.70 10*3/?L. The reference range was not used to interpret this result as normal/abnormal . RBC (test code = See_Comment [Automated 169-8) message] The sy stem which generated this [...] RDW-SD (test code = 51.1 fL 38.5-51.6 67389-7) RDW-CV (test code = 13.9 % 12.1-15.4 788-0) PLT (test code = See_Comment [Automated 777-3) message] The sy stem which generated this result transmitted reference range : 150 - 328 10*3/ ?L. The reference r sarahy was not used to interpret this result as normal/abnormal . MPV (test code = 10.3 fL 9.8-13 01563-0) NRBC/100 WBC (test See_Comment [Automat ed code = 0373448234) message] The system which generated this result transmitted reference range : 0.0 - 10.0 /100 WBCs. The refer ence range was not u sed to interpret th is result as normal/abnormal . NRBC x10^3 (test code <0.01 See_Comment [Auto mated = 2824904672) message] The s ystem which generated this result transmitted reference range : 10*3/?L. The reference range was not used to interpret this result as normal/abnormal . GRAN MAT (NEUT) % 64.3 % (test code = 770-8) IMM GRAN % (test code 0.30 % = 0132177169) LYMPH % (test code = 22.6 % 736-9) MONO % (test code = 8.8 % 5905-5) EOS % (test code = 3.0 % 713-8) BASO % (test code = 1.0 % 706-2) GRAN MAT x10^3(ANC) 4.02 10*3/uL 1.99-6.95 (test code = 3042685113) IMM GRAN x10^3 (test <0.03 0-0.06 code = 1393296672) LYMPH x10^3 (test code 1.41 10*3/uL 1.09-3.23 = 731-0) MONO x10^3 (test code 0.55 10*3/uL 0.36-1.02 = 742-7) EOS x10^3 (test code = 0.19 10*3/uL 0.06-0.53 711-2) BASO x10^3 (test code 0.06 10*3/uL 0.01-0.09 = 704-7) Lab Interpretation Abnormal (test code = 86519-4) [facility] WITH [id number] 15:41:00 Test Item Value Reference Range Interpretation [...] RDW-SD (test code = 51.1 fL 38.5-51.6 50379-8) RDW-CV (test code = 13.9 % 12.1-15.4 788-0) PLT (test code = See_Comment [Automated 777-3) message] The sy stem which generated this result transmitted reference range : 150 - 328 10*3/ ?L. The reference r sarahy was not used to interpret this result as normal/abnormal . MPV (test code = 10.3 fL 9.8-13 74811-4) NRBC/100 WBC (test See_Comment [Automat ed code = 4970862094) message] The system which generated this result transmitted reference range : 0.0 - 10.0 /100 WBCs. The refer ence range was not u sed to interpret th is result as normal/abnormal . NRBC x10^3 (test code <0.01 See_Comment [Auto mated = 9404321700) message] The s ystem which generated this result transmitted reference range : 10*3/?L. The reference range was not used to interpret this result as normal/abnormal . GRAN MAT (NEUT) % 64.3 % (test code = 770-8) IMM GRAN % (test code 0.30 % = 1269755314) LYMPH % (test code = 22.6 % 736-9) MONO % (test code = 8.8 % 5905-5) EOS % (test code = 3.0 % 713-8) BASO % (test code = 1.0 % 706-2) GRAN MAT x10^3(ANC) 4.02 10*3/uL 1.99-6.95 (test code = 2562303099) IMM GRAN x10^3 (test <0.03 0-0.06 code = 9424984247) LYMPH x10^3 (test code 1.41 10*3/uL 1.09-3.23 = 731-0) MONO x10^3 (test code 0.55 10*3/uL 0.36-1.02 = 742-7) EOS x10^3 (test code = 0.19 10*3/uL 0.06-0.53 711-2) BASO x10^3 (test code 0.06 10*3/uL 0.01-0.09 = 704-7) Lab Interpretation Abnormal (test code = 24084-9) [facility] WITH [id number] 15:41:00 Test Item Value Reference Range Interpretation Comments WBC (test code = See_Comment [Automated 6690-2) message] The sy stem which generated this result transmitted reference range : 4.20 - 10.70 10*3/?L. The reference range was not used to interpret this result as normal/abnormal . RBC (test code = See_Comment [Automated 299-8) message] The sy stem which generated this [...] RDW-SD (test code = 51.1 fL 38.5-51.6 18066-9) RDW-CV (test code = 13.9 % 12.1-15.4 788-0) PLT (test code = See_Comment [Automated 777-3) message] The sy stem which generated this result transmitted reference range : 150 - 328 10*3/ ?L. The reference r sarahy was not used to interpret this result as normal/abnormal . MPV (test code = 10.3 fL 9.8-13 59737-7) NRBC/100 WBC (test See_Comment [Automat ed code = 0155769012) message] The system which generated this result transmitted reference range : 0.0 - 10.0 /100 WBCs. The refer ence range was not u sed to interpret th is result as normal/abnormal . NRBC x10^3 (test code <0.01 See_Comment [Auto mated = 6635549506) message] The s ystem which generated this result transmitted reference range : 10*3/?L. The reference range was not used to interpret this result as normal/abnormal . GRAN MAT (NEUT) % 64.3 % (test code = 770-8) IMM GRAN % (test code 0.30 % = 8874679559) LYMPH % (test code = 22.6 % 736-9) MONO % (test code = 8.8 % 5905-5) EOS % (test code = 3.0 % 713-8) BASO % (test code = 1.0 % 706-2) GRAN MAT x10^3(ANC) 4.02 10*3/uL 1.99-6.95 (test code = 9096476967) IMM GRAN x10^3 (test <0.03 0-0.06 code = 2788894466) LYMPH x10^3 (test code 1.41 10*3/uL 1.09-3.23 = 731-0) MONO x10^3 (test code 0.55 10*3/uL 0.36-1.02 = 742-7) EOS x10^3 (test code = 0.19 10*3/uL 0.06-0.53 711-2) BASO x10^3 (test code 0.06 10*3/uL 0.01-0.09 = 704-7) Lab Interpretation Abnormal (test code = 88453-2) [facility] WITH [id number] 15:41:00 Test Item Value Reference Range Interpretation [...] RDW-SD (test code = 51.1 fL 38.5-51.6 17077-2) RDW-CV (test code = 13.9 % 12.1-15.4 788-0) PLT (test code = See_Comment [Automated 777-3) message] The sy stem which generated this result transmitted reference range : 150 - 328 10*3/ ?L. The reference r sarahy was not used to interpret this result as normal/abnormal . MPV (test code = 10.3 fL 9.8-13 05181-4) NRBC/100 WBC (test See_Comment [Automat ed code = 6827832305) message] The system which generated this result transmitted reference range : 0.0 - 10.0 /100 WBCs. The refer ence range was not u sed to interpret th is result as normal/abnormal . NRBC x10^3 (test code <0.01 See_Comment [Auto mated = 8067713968) message] The s ystem which generated this result transmitted reference range : 10*3/?L. The reference range was not used to interpret this result as normal/abnormal . GRAN MAT (NEUT) % 64.3 % (test code = 770-8) IMM GRAN % (test code 0.30 % = 1062679675) LYMPH % (test code = 22.6 % 736-9) MONO % (test code = 8.8 % 5905-5) EOS % (test code = 3.0 % 713-8) BASO % (test code = 1.0 % 706-2) GRAN MAT x10^3(ANC) 4.02 10*3/uL 1.99-6.95 (test code = 2250324380) IMM GRAN x10^3 (test <0.03 0-0.06 code = 7915259796) LYMPH x10^3 (test code 1.41 10*3/uL 1.09-3.23 = 731-0) MONO x10^3 (test code 0.55 10*3/uL 0.36-1.02 = 742-7) EOS x10^3 (test code = 0.19 10*3/uL 0.06-0.53 711-2) BASO x10^3 (test code 0.06 10*3/uL 0.01-0.09 = 704-7) Lab Interpretation Abnormal (test code = 01290-1) [id number]TOTAL CHOLESTEROL, TRIGLYCERIDES, HDL)2019-02-20 17:10:00 Test Item Value Reference Range Interpretation Comments CHOL (test code = 140 mg/dL 120-200 0471522258) HDL (test code = 46 mg/dL >40 3885261247) HDLC RATIO (test code = See_Comment [Au tomated message] 5907594442) The system [employer] generated this result transmit claribel reference range : <=5.0. The refe rence range was not u sed to interpret th is result as normal/abnormal . TRIG (test code = 52 mg/dL 30-170 6031466333) LDL CHOL (test code = 84 mg/dL See_Comment [Auto mated message] 72563-4) The system [employer] generated this result transmit claribel reference range : <=160. The refe rence range was not u sed to interpret th is result as normal/abnormal . VLDL (test code = 10 mg/dL 5-60 8904629479) Lab Interpretation (test Normal code = 68528-7) [facility] ([id number])(TOTAL CHOLESTEROL, TRIGLYCERIDES, HDL)2019-02-20 17:10:00 Test Item Value Reference Range Interpretation Comments CHOL (test code = 140 mg/dL 120-200 5733087907) HDL (test code = 46 mg/dL >40 4977339536) HDLC RATIO (test code = See_Comment [Au tomated message] 5296404134) The system [employer] generated this result transmit claribel reference range : <=5.0. The refe rence range was not u sed to interpret th is result as normal/abnormal . TRIG (test code = 52 mg/dL 30-170 0796083436) LDL CHOL (test code = 84 mg/dL See_Comment [Auto mated message] 77821-6) The system [employer] generated this result transmit claribel reference range : <=160. The refe rence range was not u sed to interpret th is result as normal/abnormal . VLDL (test code = 10 mg/dL 5-60 4146493440) Lab Interpretation (test Normal code = 43296-9) [facility] ([id number])(TOTAL CHOLESTEROL, TRIGLYCERIDES, HDL)2019-02-20 17:10:00 Test Item Value Reference Range Interpretation Comments CHOL (test code = 140 mg/dL 120-200 8017062223) HDL (test code = 46 mg/dL >40 2627602915) HDLC RATIO (test code = See_Comment [Au tomated message] 0258150236) The system [employer] generated this result transmit claribel reference range : <=5.0. The refe rence range was not u sed to interpret th is result as normal/abnormal . TRIG (test code = 52 mg/dL 30-170 6266369616) LDL CHOL (test code = 84 mg/dL See_Comment [Auto mated message] 08875-9) The system [employer] generated this result transmit claribel reference range : <=160. The refe rence range was not u sed to interpret th is result as normal/abnormal . VLDL (test code = 10 mg/dL 5-60 4092232436) Lab Interpretation (test Normal code = 70341-8) [id number]TOTAL CHOLESTEROL, TRIGLYCERIDES, HDL)2019-02-20 17:10:00 Test Item Value Reference Range Interpretation Comments CHOL (test code = 140 mg/dL 120-200 8415743442) HDL (test code = 46 mg/dL >40 7524438798) HDLC RATIO (test code = See_Comment [Au tomated message] 3377321143) The system [employer] generated this result transmit claribel reference range : <=5.0. The refe rence range was not u sed to interpret th is result as normal/abnormal . TRIG (test code = 52 mg/dL 30-170 7943473567) LDL CHOL (test code = 84 mg/dL See_Comment [Auto mated message] 89126-0) The system [employer] generated this result transmit claribel reference range : <=160. The refe rence range was not u sed to interpret th is result as normal/abnormal . VLDL (test code = 10 mg/dL 5-60 2945011946) Lab Interpretation (test Normal code = 49949-1) [facility] ([id number])(TOTAL CHOLESTEROL, TRIGLYCERIDES, HDL)2019-02-20 17:10:00 Test Item Value Reference Range Interpretation Comments CHOL (test code = 140 mg/dL 120-200 6152648698) HDL (test code = 46 mg/dL >40 0854812302) HDLC RATIO (test code = See_Comment [Au tomated message] 2182034159) The system [employer] generated this result transmit claribel reference range : <=5.0. The refe rence range was not u sed to interpret th is result as normal/abnormal . TRIG (test code = 52 mg/dL 30-170 5790131911) LDL CHOL (test code = 84 mg/dL See_Comment [Auto mated message] 90010-4) The system [employer] generated this result transmit claribel reference range : <=160. The refe rence range was not u sed to interpret th is result as normal/abnormal . VLDL (test code = 10 mg/dL 5-60 7437419429) Lab Interpretation (test Normal code = 44288-2) [facility] (A1C)2019-02-20 16:35:00 Test Item Value Reference [...] Indicated Lab Interpretation Normal (test code = 52717-0) [facility]A1C)2019-02-20 16:35:00 Test Item Value Reference [...] Indicated Lab Interpretation Normal (test code = 88011-3) [facility]A1C)2019-02-20 16:35:00 Test Item Value Reference [...] Indicated Lab Interpretation Normal (test code = 41313-4) [facility]A1C)2019-02-20 16:35:00 Test Item Value Reference [...] Indicated Lab Interpretation Normal (test code = 52062-5) [facility] (A1C)2019-02-20 16:35:00 Test Item Value Reference [...] Indicated Lab Interpretation Normal (test code = 92098-1) [facility]"
[2021-09-15] MEDS ORDERED: LIDOCAINE 1% W/EPI 1:100,000 MDV 50 ML VIAL ONE (03:56)
[2021-09-15] MEDS ORDERED: TETANUS & DIPHTHERIA TOX,ADULT 0.5 ML VIAL ONE (04:41)
[2021-09-15 05:18] LABS: Absolute Lymphocytes (CBC) 0.7 K/uL (0.7-4.9); Hematocrit 44.9 % (39.6-49.0); Lymphocytes % 10.2 % (15.3-44.8); MPV 8.2 fL (7.6-11.3); RBC Red Blood Cell Count 4.52 M/uL (4.33-5.43)
[2021-09-15 05:35] LABS: ALT/SGPT 15 U/L (12-78); AST/SGOT 9 U/L (15-37); Albumin 3.2 g/dL (3.4-5.0); Alkaline Phosphatase 77 U/L (45-117); BUN Blood Urea Nitrogen 18 mg/dL (7-18); Bicarbonate 27 mmol/L (21-32); Bilirubin Total 0.4 mg/dL (0.2-1.0); Glucose Level 107 mg/dL (74-106); Potassium 3.7 mmol/L (3.5-5.1); Sodium Level 143 mmol/L (136-145); Valproic Acid (Depakene) Level 9.2 ug/mL (50-100)
[2021-09-15] MEDS ORDERED: MUPIROCIN 2% OINT 22GM TUBE TOP ONE (06:00)
--- NOTE | 2021-09-15 06:46 | EDPHYS ---
Physician Documentation [facility] Name: Elver Tee Age: 81 yrs Sex: Male : 1940 Arrival Date: 09/15/2021 Time: 03:33 Bed 6 Private MD: ED Physician Kobe Friend HPI: 09/15 04:43 This 81 yrs old Male presents to ER via EMS with complaints of fall and lac jaelyn to right forehead. 04:43 The patient or guardian reports a laceration, 4 cm(s), clean, pain, swelling, jaelyn tenderness. The complaints affect the right catholic. Context of injury: The problem was sustained at home, resulted from a fall. Onset: The symptoms/episode began/occurred just prior to arrival. Associated signs and symptoms: The patient has no apparent associated signs or symptoms, Loss of consciousness: This patient did not experience any loss of consciousness. unk why, going to the bathroom. Details of fall: The patient fell from an upright position, while walking. Associated injuries: The patient sustained injury to the head. Historical: - Allergies: 03:41 Bacitracin Zinc; bb 03:41 Neomycin Sulfate; bb 03:41 Polymyxin B Sulfate; bb - Home Meds: 03:41 clonazepam 2 mg Oral tab 2 tabs [Active]; clonazepam 0.5 mg Oral TbDi [Active]; bb Depakote Oral [Active]; divalproex 250 mg Oral Tb24 [Active]; mirtazapine 7.5 mg Oral tab [Active]; paliperidone 3 mg Oral tr24 1 tab nightly [Active]; propranolol 10 mg Oral tab [Active]; tamsulosin 0.4 mg Oral cap [Active]; topiramate 25 mg Oral CSpX 1 cap nightly [Active]; Xarelto 10 mg Oral tab [Active]; - PMHx: 03:41 Bipolar disorder; Hypertensive disorder; Paranoid Schizophrenia; bb - Immunization history:: Pfizer x 3. - Social history:: Smoking status: unknown. - Immunization history: Last tetanus immunization: unknown. - Family history:: not pertinent. ROS: 04:43 Constitutional: Negative for fever, chills, and weight loss, Eyes: Negative for injury, jaelyn pain, redness, and discharge, ENT: Negative for injury, pain, and discharge, Neck: Negative for injury, pain, and swelling, Cardiovascular: Negative for chest pain, palpitations, and edema, Respiratory: Negative for shortness of breath, cough, wheezing, and pleuritic chest pain, Abdomen/GI: Negative for abdominal pain, nausea, vomiting, diarrhea, and constipation, Back: Negative for injury and pain, : Negative for injury, bleeding, discharge, and swelling, MS/Extremity: Negative for injury and deformity, Skin: Negative for injury, rash, and discoloration, Neuro: Negative for headache, weakness, numbness, tingling, and seizure, Psych: Negative for depression, anxiety, suicide ideation, homicidal ideation, and hallucinations, Allergy/Immunology: Negative for hives, rash, and allergies, Endocrine: Negative for neck swelling, polydipsia, polyuria, polyphagia, and marked weight changes, Hematologic/Lymphatic: Negative for swollen nodes, abnormal bleeding, and unusual bruising. Exam: 04:43 Constitutional: This is a well developed, well nourished patient who is awake, alert, jaelyn and in no acute distress. Eyes: Pupils equal round and reactive to light, extra-ocular motions intact. Lids and lashes normal. Conjunctiva and sclera are non-icteric and not injected. Cornea within normal limits. Periorbital areas with no swelling, redness, or edema. ENT: Nares patent. No nasal discharge, no septal abnormalities noted. Tympanic membranes are normal and external auditory canals are clear. Oropharynx with no redness, swelling, or masses, exudates, or evidence of obstruction, uvula midline. Mucous membranes moist. Neck: Trachea midline, no thyromegaly or masses palpated, and no cervical lymphadenopathy. Supple, full range of motion without nuchal rigidity, or vertebral point tenderness. No Meningismus. Chest/axilla: Normal chest wall appearance and motion. Nontender with no deformity. No lesions are appreciated. Cardiovascular: Regular rate and rhythm with a normal S1 and S2. No gallops, murmurs, or rubs. Normal PMI, no JVD. No pulse deficits. Respiratory: Lungs have equal breath sounds bilaterally, clear to auscultation and percussion. No rales, rhonchi or wheezes noted. No increased work of breathing, no retractions or nasal flaring. Abdomen/GI: Soft, non-tender, with normal bowel sounds. No distension or tympany. No guarding or rebound. No evidence of tenderness throughout. Back: No spinal tenderness. No costovertebral tenderness. Full range of motion. Male : Normal genitalia with no discharge or lesions. Skin: Warm, dry with normal turgor. Normal color with no rashes, no lesions, and no evidence of cellulitis. MS/ Extremity: Pulses equal, no cyanosis. Neurovascular intact. Full, normal range of motion. Neuro: Awake and alert, GCS 15, oriented to person, place, time, and situation. Cranial nerves II-XII grossly intact. Motor strength 5/5 in all extremities. Sensory grossly intact. Cerebellar exam normal. Normal gait. Psych: Awake, alert, with orientation to person, place and time. Behavior, mood, and affect are within normal limits. 04:43 Head/face: Noted is a laceration(s), that is deep, that is jagged, 4 cm(s). 06:44 ECG was reviewed by the Attending Physician. [facility] Vital Signs: 03:38 BP 121 / 90; Pulse 79; Resp 18 S; Pulse Ox 94% on R/A; Weight 86.18 kg (R); Height 6 bb ft. 0 in. (182.88 cm) (R); Pain 0/10; 05:00 BP 108 / 80; Pulse 72; Resp 17 S; Pulse Ox 94% on R/A; Pain 0/10; al4 06:42 BP 114 / 71; Pulse 81; Resp 15 S; Pulse Ox 95% on R/A; as6 07:56 BP 112 / 67; Pulse 76; Resp 17; Pulse Ox 98% on R/A; Pain 0/10; jh6 03:38 Body Mass Index 25.77 (86.18 kg, 182.88 cm) bb [place] Coma Score: 03:38 Eye Response: spontaneous(4). Verbal Response: oriented(5). Motor Response: obeys al4 commands(6). Total: 15. 04:43 Eye Response: spontaneous(4). Verbal Response: oriented(5). Motor Response: obeys jaelyn commands(6). Total: 15. 04:46 Eye Response: spontaneous(4). Verbal Response: oriented(5). Motor Response: obeys jaelyn commands(6). Total: 15. Trauma Score (Adult): 03:38 Eye Response: spontaneous(1); Verbal Response: oriented(1); Motor Response: obeys al4 commands(2); Systolic BP: > 89 mm Hg(4); Respiratory Rate: 10 to 29 per min(4); Larry Score: 15; Trauma Score: 12 Laceration: 04:48 Wound Repair of 4cm ( 1.6in ) subcutaneous laceration to right catholic. Irregularly jaelyn shaped.. Distal neuro/vascular/tendon intact. Anesthesia: Local anesthetic administered with 6 mls of 1% lidocaine w/ Epi. Wound prep: Simple cleansing by me. Skin closed with 6 5-0 Prolene using interrupted sutures and sterile technique. Dressed with pressure dressing, non-adherent dressing. MDM: 03:38 Patient medically screened. jaelyn 04:46 Differential diagnosis: Contusion of Hematoma on head, Laceration of face. Differential jaelyn Diagnosis altered mental status. Differential diagnosis: closed head injury, contusion, laceration. Data reviewed: vital signs, nurses notes, lab test result(s), EKG, radiologic studies, CT scan, plain films. Data interpreted: engine monitor: rate is 79 beats/min, rhythm is regular, Pulse oximetry: on room air is 94 %. Test interpretation: by ED physician or midlevel provider: ECG, plain radiologic studies. Counseling: I had a detailed discussion with the patient and/or guardian regarding: the historical points, exam findings, and any diagnostic results supporting the discharge/admit diagnosis, lab results, radiology results, the need for outpatient follow up, for definitive care, a family practitioner. 09/15 04:30 Order name: CBC with Diff; Complete Time: 05:26 [facility] 09/15 04:30 Order name: Comprehensive Metabolic Panel; Complete Time: 06:45 [facility] 09/15 03:56 Order name: Head C Spine Mpr Wo Con EDMS 09/15 04:30 Order name: Depakote; Complete Time: 06:45 jaelyn 09/15 04:30 Order name: EKG; Complete Time: 04:31 [facility] 09/15 04:30 Order name: EKG - Nurse/Tech; Complete Time: 06:08 jaelyn 09/15 04:30 Order name: Dressing - Wound; Complete Time: 04:45 jaelyn 09/15 04:30 Order name: Gloves, Sterile; Complete Time: 04:45 [facility] 05/02 04:30 Order name: Prolene, Sutures; Complete Time: 04:45 jaelyn 09/15 04:30 Order name: Setup Suture Tray; Complete Time: 04:45 jaelyn 09/15 04:30 Order name: Wound Care; Complete Time: 06:49 jaelyn 09/15 06:37 Order name: PO challenge; Complete Time: 06:37 jaelyn EC:44 Rate is 64 beats/min. Rhythm is regular. QRS [place] is Normal. NM interval is normal. QRS jaelyn interval is normal. QT interval is normal. No Q waves. T waves are Normal. Clinical impression: NSR w/ Non-specific ST/T Changes and No evidence of ischemia. Interpreted by me. Reviewed by me. 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 Exp: al4 07/26/2023. Lot #: [id number]. } Route: IM; Site: right deltoid; 06:50 Follow up: Response: No adverse reaction as6 06:08 Drug: Bactroban (mupirocin) Ointment 2 % 1 application Route: Topical; Site: forehead; al4 06:50 Follow up: Response: No adverse reaction as6 Disposition Summary: 09/15/21 06:46 Discharge Ordered Location: Home jaelyn Problem: new jaelyn Symptoms: have improved jaelyn Condition: Stable jaelyn Diagnosis - Fall on same level, unspecified jaelyn - Laceration without foreign body of other part of head jaelyn - Abnormal findings on diagnostic imaging of other specified body structures - jaelyn thyroid mass Followup: jaelyn - With: Private Physician - When: 2 - 3 days - Reason: Recheck today's complaints, Continuance of care, Re-evaluation by your physician Discharge Instructions: - Discharge Summary Sheet jaelyn - Fall Prevention in the Home, Adult jaelyn - Laceration Care, Adult jaelyn - Laceration Care, Adult, [id number] jaleyn - Fall Prevention in the Home, Adult, [id number] jaelyn Forms: - Medication Reconciliation Form jaelyn - Thank You Letter jaelyn - Antibiotic Education jaelyn - Prescription Opioid Use jaelyn Prescriptions: - Cephalexin 500 mg Oral Capsule - take 1 capsule by ORAL route every 6 hours for 7 days; 28 capsule; Refills: 0, jaelyn Product Selection Permitted - Centany 2 % Topical ointment - apply 1 application by TOPICAL route 3 times per day; 30 gram; Refills: 0, la1 Product Selection Permitted Signatures: Dispatcher [employer] Kobe Barrett MD MD cha Ballard, Brenda RN RN bb John Emery, CORE WINDER MACHINE OPERATOR-C CORE WINDER MACHINE OPERATOR-Cla1 Shantanu Price Ashby RN as6
--- NOTE | 2021-09-15 06:46 | ER ---
Nurse's Notes [facility] Name: Elver Tee Age: 81 yrs Sex: Male : 1940 Arrival Date: 09/15/2021 Time: 03:33 Bed 6 Private MD: Diagnosis: Fall on same level, unspecified;Laceration without foreign body of other part of head;Abnormal findings on diagnostic imaging of other specified body structures-thyroid mass Presentation: 09/15 03:38 Chief complaint: EMS states: they were toned out for report of pt having fallen after bb going to the bathroom pt denies LOC, pt has laceration to forehead. Coronavirus screen: At this time, the client does not indicate any symptoms associated with coronavirus-19. Ebola Screen: No symptoms or risks identified at this time. Initial Sepsis Screen: Does the patient meet any 2 criteria? No. Patient's initial sepsis screen is negative. Does the patient have a suspected source of infection? No. Patient's initial sepsis screen is negative. Risk Assessment: Do you want to hurt yourself or someone else? Patient reports no desire to harm self or others. Onset of symptoms was September 15, 2021. 03:38 Method Of Arrival: EMS: [facility] bb 03:38 Acuity: [facility] 3 bb 03:38 Care prior to arrival: None. Mechanism of Injury: Fall. Trauma event details: Injury al4 occurred: September 15, 2021. Trauma Activation: Alert Physician: ED Physician; Name: Phuc; Notified At: 03:24; Arrived At: Physician: General Surgeon; Name: ; Notified At: 03:24; Arrived At: Physician: Radiology; Name: ; Notified At: 03:24; Arrived At: Physician: Respiratory; Name: ; Notified At: 03:24; Arrived At: Physician: Lab; Name: ; Notified At: 03:24; Arrived At: Historical: - Allergies: 03:41 Bacitracin Zinc; bb 03:41 Neomycin Sulfate; bb 03:41 Polymyxin B Sulfate; bb - Home Meds: 03:41 clonazepam 2 mg Oral tab 2 tabs [Active]; clonazepam 0.5 mg Oral TbDi [Active]; bb Depakote Oral [Active]; divalproex 250 mg Oral Tb24 [Active]; mirtazapine 7.5 mg Oral tab [Active]; paliperidone 3 mg Oral tr24 1 tab nightly [Active]; propranolol 10 mg Oral tab [Active]; tamsulosin 0.4 mg Oral cap [Active]; topiramate 25 mg Oral CSpX 1 cap nightly [Active]; Xarelto 10 mg Oral tab [Active]; - PMHx: 03:41 Bipolar disorder; Hypertensive disorder; Paranoid Schizophrenia; bb - Immunization history:: Pfizer x 3. - Social history:: Smoking status: unknown. - Immunization history: Last tetanus immunization: unknown. - Family history:: not pertinent. Screenin:36 Abuse screen: Denies threats or abuse. Nutritional screening: No deficits noted. al4 Tuberculosis screening: No symptoms or risk factors identified. 06:42 Fall Risk Fall in past 12 months (25 points). Secondary diagnosis (15 points) as6 Alzheimer's, dementia, IV access (20 points). Gait- Impaired (20 pts.). Total Kowalski Fall Scale indicates High Risk Score (45 or more points). Fall prevention measures have been instituted. Side Rails Up X 2 Frequent Obs/Assessments Occuring As available patient and family educated on Fall Prevention Program and Strategies. Primary Survey: 03:38 NO uncontrolled hemorrhage observed. Breathing/Chest: Respiratory effort: unlabored, al4 Respiratory pattern: regular. Circulation: Skin color: pink. Disability Client is alert. Exposure/Environment: Obvious injury(ies) are noted at this time: forehead laceration. 04:44 Reassessment Alertness and Airway: Awake and alert. The airway is patent. Breathing: al4 Respiratory effort Spontaneous Unlabored Respiratory pattern Regular Circulation: Color [place] Temperature Warm Disability: Alert. Assessment: 03:34 General: Appears in no apparent distress. uncomfortable, Behavior is calm, cooperative. al4 Neuro: Level of Consciousness is awake, alert, obeys commands, Oriented to person, place, situation. Cardiovascular: Patient's skin is warm and dry. Respiratory: Airway is patent Respiratory effort is unlabored, Respiratory pattern is regular. Derm: Wound noted forehead Wound is laceration - bandaged. 03:34 Pain: Denies pain. al4 04:26 Reassessment: Patient appears in no apparent distress at this time. al4 05:00 Reassessment: Patient appears in no apparent distress at this time. Patient is alert, al4 oriented x 3, equal unlabored respirations, skin warm/dry/pink. Patient denies pain at this time. 06:00 Reassessment: Patient is alert, oriented x 3, equal unlabored respirations, skin al4 warm/dry/pink. Patient denies pain at this time. 07:34 General: Appears in no apparent distress. Behavior is calm, cooperative. General: spoke jh6 with and advised that spouse was cleared for d/c. spouse advised that she would be up to get him in a bit, that she just woke up.. Neuro: Level of Consciousness is awake, alert, obeys commands, Oriented to person, place, time, situation. 08:43 General: at bedside and pt was able to stand and pivot into wheelchair with little jh6 assistance. pt taken to car waiting outside. . Vital Signs: 03:38 BP 121 / 90; Pulse 79; Resp 18 S; Pulse Ox 94% on R/A; Weight 86.18 kg (R); Height 6 bb ft. 0 in. (182.88 cm) (R); Pain 0/10; 05:00 BP 108 / 80; Pulse 72; Resp 17 S; Pulse Ox 94% on R/A; Pain 0/10; al4 06:42 BP 114 / 71; Pulse 81; Resp 15 S; Pulse Ox 95% on R/A; as6 07:56 BP 112 / 67; Pulse 76; Resp 17; Pulse Ox 98% on R/A; Pain 0/10; jh6 03:38 Body Mass Index 25.77 (86.18 kg, 182.88 cm) bb [place] Coma Score: 03:38 Eye Response: spontaneous(4). Verbal Response: oriented(5). Motor Response: obeys al4 commands(6). Total: 15. 04:43 Eye Response: spontaneous(4). Verbal Response: oriented(5). Motor Response: obeys jaelyn commands(6). Total: 15. 04:46 Eye Response: spontaneous(4). Verbal Response: oriented(5). Motor Response: obeys jaelyn commands(6). Total: 15. Trauma Score (Adult): 03:38 Eye Response: spontaneous(1); Verbal Response: oriented(1); Motor Response: obeys al4 commands(2); Systolic BP: > 89 mm Hg(4); Respiratory Rate: 10 to 29 per min(4); Larry Score: 15; Trauma Score: 12 ED Course: 03:33 Patient arrived in ED. bp1 03:34 Shantanu Price is Primary Nurse. al4 03:36 Placed in gown. Bed in low position. Call light in reach. Side rails up X2. al4 03:38 Kobe Friend MD is Attending Physician. jaelyn 03:38 Patient maintains SpO2 saturation greater than 95% on room air. al4 03:41 Triage completed. bb 03:41 Arm band placed on Patient placed in an exam room, on a stretcher, on pulse oximetry. bb 04:00 Thermoregulation: warm blanket given to patient. al4 04:17 Head C Spine Mpr Wo Con In Process Unspecified. EDMS 04:50 Missed attempt(s): 20 gauge in right antecubital area. Bleeding controlled, band aid al4 applied, catheter tip intact. 04:55 Inserted saline lock: 22 gauge in right wrist, using aseptic technique. Blood collected.al4 08:44 No provider procedures requiring assistance completed. jh6 08:45 IV discontinued, intact, bleeding controlled, No redness/swelling at site. Pressure jh6 dressing applied. 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 Exp: al4 07/26/2023. Lot #: [id number]. } Route: IM; Site: right deltoid; 06:50 Follow up: Response: No adverse reaction as6 06:08 Drug: Bactroban (mupirocin) Ointment 2 % 1 application Route: Topical; Site: forehead; al4 06:50 Follow up: Response: No adverse reaction as6 Outcome: 06:46 Discharge ordered by . jaelyn 08:45 Discharged to home via wheelchair. jh6 08:45 Condition: good 08:45 Discharge instructions given to patient, family, Instructed on discharge instructions, follow up and referral plans. Demonstrated understanding of instructions, follow-up care, medications, Prescriptions given X 2. 08:45 Patient left the ED. jh6 Signatures: Dispatcher [employer] EDKobe Pack MD MD cha Ballard, Brenda, RN RN Shilpi Epstein Ashby, RN RN 6 Lucrecia Sanchez RN RN jh6 Shantanu Price
[2021-09-15 08:56] VITALS: BP 112/67; O2SAT 98
--- NOTE | 2021-09-15 14:17 | RAD REPORT ---
EXAM DESCRIPTION: CT - Head C Spine Mpr Wo Con - 09/15/2021 5:16 am CLINICAL HISTORY: 81 years Male fall, trauma, laceration TECHNIQUE: Multiple axial CT images of the brain and cervical spine were performed followed by sagit alexandra and coronal reconstructed images. The CT study is performed according to ALARA (as low as reasona jerrod achievable) or ALARA/IMAGE GENTLY, with automatic adjustment of mA and/or kV according to patient size. Performed on: 09/15/2021 at 4:08 AM COMPARISON: CT head and cervical spine performed on 07/01/[address] head performed on 02/03/2020 FINDINGS: CT HEAD: There is no evidence of mass, acute mass effect or midline shift. There are no acute extra-axial flui d collections. There is no evidence of acute intracranial hemorrhage. There is slightly increased d ensity along the posterior interhemispheric falx (series 201, image 22) which is grossly stable when compared to the prior studies and likely represents thickening of the falx. The cerebral sulci and ventricles are prominent consistent with moderate cerebral volume loss. 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 There are old bilateral basal ganglia lacunar infarcts. There is no significant mucosal thickening of the paranasal sinuses. The mastoid air cells are clear. The orbital contents are grossly unremarkable. There are remote postsurgical changes of the left glob e. No acute osseous abnormalities are identified. There is right frontal scalp soft tissue swelling. CT CERVICAL SPINE: The cervical vertebrae are normal in height. There is normal alignment of the vertebrae. There is chr onic C7-T1 fusion which may be congenital in nature. There is advanced disc space narrowing at C6-C7 and moderate degenerative disc disease at C5-C6. There is mild disc space narrowing at the remaining levels. Bone mineralization is decreased. The atlanto-axial articulation is preserved and the odont oid process is intact. There is normal alignment of the facet joints on the parasagittal images. There are moderate degenera tive changes of the facet joints spine. There is no evidence of acute fracture or subluxation. There is no significant canal stenosis. Ther e is multilevel bilateral neural foraminal stenosis secondary to uncovertebral joint and facet joint hypertrophy. These findings are most pronounced on the left at C3-C4, on the right at C4-C5 and bilat erally at C5-C6 and C6-C7. The prevertebral and paraspinal soft tissues are unremarkable. The lung apices are clear. There appea rs to be a large 2.5 cm mass arising from the lower pole of the right thyroid lobe. Similar when comp ared to the prior study. IMPRESSION: CT HEAD: 1. No evidence of acute intracranial pathology. 2. Right frontal scalp soft tissue swelling. 3. 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 4. Old bilateral basal ganglia lacunar infarcts. 5. There is slightly increased density along the posterior interhemispheric falx (series 201, image 2 2) which is grossly stable when compared to the prior studies and likely represents thickening of the falx. CT CERVICAL SPINE: 1. No evidence of acute traumatic injury to the cervical spine. 2. Chronic C7-T1 fusion which may be congenital in nature. 3. Multilevel degenerative changes of the cervical spine as described above. 4. 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 Similar when compared to the prior study. Recommend thyroid ultrasound. Reference: J Am Claudia Radiol. 2015 Jun;12(2): 143-50 Electronically signed by: eKlly Hess DO 09/15/2021 4:55 AM CDT Due to temporary technical issues with the PACS/Fluency reporting system, reports are being signed by the in house radiologist without review as a courtesy to ensure prompt reporting. The interpreting r adiologist is fully responsible for the content of the report.
--- NOTE | 2021-09-16 10:53 | EKG ---
Test Date: 2021-09-15 Test Time: 06:01:51 Tractor Sweeper Driver: ADORE MEASUREMENT RESULTS: Intervals: Rate: 64 LA: 168 QRSD: 74 QT: 398 QTc: 410 [place]: P: 74 LA: 168 QRS: 14 T: 28 INTERPRETIVE STATEMENTS: Sinus rhythm with premature atrial complexes Low voltage QRS Borderline ECG Compared to ECG 02/27/2021 17:04:42 No significant changes Electronically Signed On 09-16-21 10:50:37 CDT by Yong Alexander
== END 2021-09-15 08:45 | disposition home or self-care (01) ==
LOC: ER 03:32
PROC: 0JQ10ZZ Repair Face Subcutaneous Tissue and Fascia, Open Approach (ICD-10-PCS; principal; 2021-09-15)
DX: S01.81XA Laceration without foreign body of other part of head, initial encounter (principal); R93.89 Abnormal findings on diagnostic imaging of other specified body structures; W18.30XA Fall on same level, unspecified, initial encounter; Z23 Encounter for immunization; Z88.1 Allergy status to other antibiotic agents; Z88.3 Allergy status to other anti-infective agents; I10 Essential (primary) hypertension; F20.0 Paranoid schizophrenia
CPT/HCPCS: 36415; 70450; 72125; 80053; 80164; 85025; 90471; 90714; 93005; 99285

== ENCOUNTER 2021-10-06 23:27 | Emergency (ER) | payer OTHER, MEDICARE ==
--- OUTSIDE RECORDS SUMMARY | 2021-10-06 23:38 | XMS REPORT | Continuity of Care Document ---
:1940 Author Organization [facility] Address [address] [place] [address] Care Team Providers Name Role Phone Gomez HALL Primary Care Physician SIVAKUMAR WHITLOCK Attending Clinician Unavailable [id number] Attending Clinician Unavailable Danielle Draper Attending Clinician [...] Attending Clinician UNKNOWN Attending Clinician Unavailable Donn PRINTER'S ASSISTANT Attending Clinician Unknown Attending Clinician Unavailable Care, [...] Clinician Unavailable SIVAKUMAR WHITLOCK Admitting Clinician Unavailable [id number] Admitting Clinician Unavailable Danielle Draper Admitting Clinician Unavailable Payers Payer Name Policy Type Policy Number Effective Date Expiration Date S renetta HARRIS MCR [id number] AARP AARP [id number] MEDICARE B RAILROAD [id number] 2003 00:00:00 [facility] [id number] 2006 MEDICARE SUPPLEMENT 00:00:00 Problems Condition Condition Condition Status Onset Resolution Last Treating Co mments Source Name Details Category Date Date Treatment Clinician Date 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 06-03 ity of 00:00: [address] 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 sm in male sm in male 06-15 it y of 00:00: [address] Gynecomast Gynecomast Disease Active U nivers ia ia 07-18 ity of :00: [address] Elevated Elevated Disease Active Unive rs prolactin prolactin 07-18 ity of level level 00:00: [address] Allergies, Adverse Reactions, Alerts Allergy Allergy Status Severity Reaction(s) Onset Inactive Treating Comm ents Source Name Type Date Date Clinician NO KNOWN Drug Active Univers ALLERGIE Class ity of S [facility] [place] [facility] Family History Family Member Diagnosis Comments Start Date Stop Date Source Family member Thyroid [facility] Social History Social Habit Start Date Stop Date Quantity Comments Source History SDOH University o f Alcohol Frequency [facility] edical Branch History SDOH University o f Alcohol Std [place] [facility] History SDOH University o f Alcohol Binge [facility] al Bud Exposure to Not sure University SARS-CoV-2 [facility] (event) Bud Alcohol intake 2020-02-02 2020-02-02 0 /d University of 00:00:00 00:00:00 [facility] Tobacco use and 2020-02-02 2020-02-02 Never used Universit y of exposure 00:00:00 00:00:00 [facility] Alcohol Comment 2018-03-21 2018-03-21 occaisonal wine Univ ersity of 00:00:00 00:00:00 [facility] Sex [birth year] Universit y of 00:00:00 00:00:00 [facility] Smoking Status Start Date Stop Date Source Never smoker [facility] Medications Ordered Filled Start Stop Current Ordering Indication Dosage Frequency Signature Comments Components Source Medication Medication Date Date Medication? Clinician (SIG) Name Name clonazePAM Yes [id number] .5mg Take 1 U nivers 0.5 mg 6-04 tablet by ity of tablet 00:00: mouth at [place] 00 bedtime. Medical Branch clonazePAM Yes [id number] .5mg Take 1 U nivers 0.5 mg 6-04 tablet by ity of tablet 00:00: mouth at [place] 00 bedtime. Medical Branch clonazePAM Yes [id number] .5mg Take 1 U nivers 0.5 mg 6-04 tablet by ity of tablet 00:00: mouth at [place] 00 bedtime. Medical Branch rivaroxaban Yes Take [...] [place] tablet 28 Medical Branch divalproex Yes [id number] 500mg Take 2 Univers ER 250 mg 4-30 tablets by ity of 24 hr 00:00: mouth at [place] tablet 00 bedtime. Medical Branch mirtazapine Yes [id number] 7.5mg Take 1 Univers 7.5 mg 4-30 105 tablet by ity of tablet 00:00: mouth at [place] 00 bedtime. Medical Branch paliperidon Yes [id number] TAKE 1 Univers e 3 mg 24 4-30 TABLET BY ity o f hour tablet 00:00: MOUTH ONCE [place] 00 DAILY Medical Branch divalproex Yes [id number] 500mg Take 2 Univers ER 250 mg 4-30 tablets by ity of 24 hr 00:00: mouth at [place] tablet 00 bedtime. Medical Branch mirtazapine 0 Yes [id number] 7.5mg Take 1 Univers 7.5 mg 4-30 105 tablet by ity of tablet 00:00: mouth at [place] 00 bedtime. Medical Branch paliperidon 2020-0 Yes [id number] TAKE 1 Univers e 3 mg 24 4-30 TABLET BY ity o f hour tablet 00:00: MOUTH ONCE [place] 00 DAILY Medical Branch divalproex 2020-0 Yes [id number] 500mg Take 2 Univers ER 250 mg 4-30 tablets by ity of 24 hr 00:00: mouth at [place] tablet 00 bedtime. Medical Branch mirtazapine Yes [id number] 7.5mg Take 1 Univers 7.5 mg 4-30 105 tablet by ity of tablet 00:00: mouth at [place] 00 bedtime. Medical Branch paliperidon 2020-0 Yes [id number] TAKE 1 Univers e 3 mg 24 4-30 TABLET BY ity o f hour tablet 00:00: MOUTH ONCE [place] 00 DAILY Medical Branch divalproex 2020-0 Yes [id number] 500mg Take 2 Univers ER 250 mg 4-30 tablets by ity of 24 hr 00:00: mouth at [place] tablet 00 bedtime. Medical Branch mirtazapine Yes [id number] 7.5mg Take 1 Univers 7.5 mg 4-30 105 tablet by ity of tablet 00:00: mouth at [place] 00 bedtime. Medical Branch paliperidon 0 Yes [id number] TAKE 1 Univers e 3 mg 24 4-30 TABLET BY ity o f hour tablet 00:00: MOUTH ONCE [place] 00 DAILY Medical Branch divalproex 2020-0 Yes [id number] 500mg Take 2 Univers ER 250 mg 4-30 tablets by ity of 24 hr 00:00: mouth at [place] tablet 00 bedtime. Medical Branch mirtazapine Yes [id number] 7.5mg Take 1 Univers 7.5 mg 4-30 105 tablet by ity of tablet 00:00: mouth at [place] 00 bedtime. Medical Branch paliperidon 2020-0 Yes [id number] TAKE 1 Univers e 3 mg 24 4-30 TABLET BY ity o f hour tablet 00:00: MOUTH ONCE [place] 00 DAILY Medical Branch divalproex Yes [id number] 500mg Take 2 Univers ER 250 mg 4-30 tablets by ity of 24 hr 00:00: mouth at [place] tablet 00 bedtime. Medical Branch mirtazapine Yes [id number] 7.5mg Take 1 Univers 7.5 mg 4-30 105 tablet by ity of tablet 00:00: mouth at [place] 00 bedtime. Medical Branch paliperidon Yes [id number] TAKE 1 Univers e 3 mg 24 4-30 TABLET BY ity o f hour tablet 00:00: MOUTH ONCE [place] 00 DAILY Medical Branch divalproex 2020- No [id number] 500mg Take 2 Univers ER 250 mg 4-30 04-30 tablets by ity of 24 hr 00:00: 00:00 mouth at [place] tablet 00 :00 bedtime. Medical Branch divalproex 2020- No [id number] 500mg Take 2 Univers ER 250 mg 4-30 04-30 tablets by ity of 24 hr 00:00: 00:00 mouth at [place] tablet 00 :00 bedtime. Medical Branch divalproex 2020- No [id number] 500mg Take 2 Univers ER 250 mg 4-30 04-30 tablets by ity of 24 hr 00:00: 00:00 mouth at [place] tablet 00 :00 bedtime. Medical Branch divalproex Yes [id number] 500mg Take 1 Univers ER 500 mg 4-08 tablet by ity o f 24 hr 00:00: mouth [place] tablet 00 every 24 Medical (twenty-fo Branch ur) hours. divalproex Yes [id number] 500mg Take 1 Univers ER 500 mg 4-08 tablet by ity o f 24 hr 00:00: mouth [place] tablet 00 every 24 Medical (twenty-fo Branch ur) hours. divalproex 2020- No [id number] 500mg Take 1 Univers ER 500 mg 4-08 04-30 tablet by ity of 24 hr 00:00: 00:00 mouth [place] tablet 00 :00 every 24 Medical (twenty-fo Branch ur) hours. divalproex 2020- No [id number] 500mg Take 1 Univers ER 500 mg 4-08 04-30 tablet by ity of 24 hr 00:00: 00:00 mouth [place] tablet 00 :00 every 24 Medical (twenty-fo Branch ur) hours. divalproex 2020-0 2020- No [id number] 500mg Take 1 Univers ER 500 mg 4-08 04-30 tablet by ity of 24 hr 00:00: 00:00 mouth [place] tablet 00 :00 every 24 Medical (twenty-fo Branch ur) hours. clonazePAM 2020-0 Yes [id number] .5mg Take 1 U nivers 0.5 mg 3-04 tablet by ity of tablet 00:00: mouth at [place] [address] bedtime. Medical Branch clonazePAM 2020-0 Yes [id number] .5mg Take 1 U nivers 0.5 mg 3-04 tablet by ity of tablet 00:00: mouth at [place] [address] bedtime. Medical Branch clonazePAM 2020-0 Yes [id number] .5mg Take 1 U nivers 0.5 mg 3-04 tablet by ity of tablet 00:00: mouth at [place] [address] bedtime. Medical Branch clonazePAM 2020-0 Yes [id number] .5mg Take 1 U nivers 0.5 mg 3-04 tablet by ity of tablet 00:00: mouth at [place] [address] bedtime. Medical Branch clonazePAM 2020-0 Yes [id number] .5mg Take 1 U nivers 0.5 mg 3-04 tablet by ity of tablet 00:00: mouth at [place] [address] bedtime. Medical Branch clonazePAM 2020-0 Yes [id number] .5mg Take 1 U nivers 0.5 mg 3-04 tablet by ity of tablet 00:00: mouth at [place] [address] bedtime. Medical Branch clonazePAM 2020-0 Yes [id number] .5mg Take 1 U nivers 0.5 mg 3-04 tablet by ity of tablet 00:00: mouth at [place] [address] bedtime. Medical Branch clonazePAM 2020-0 Yes [id number] .5mg Take 1 U nivers 0.5 mg 3-04 tablet by ity of tablet 00:00: mouth at [place] [address] bedtime. Medical Branch clonazePAM 2020-0 Yes [id number] .5mg Take 1 U nivers 0.5 mg 3-04 tablet by ity of tablet 00:00: mouth at [place] [address] bedtime. Medical Branch clonazePAM 2021-0 Yes [id number] .5mg Take 1 U nivers 0.5 mg 3-04 tablet by ity of tablet 00:00: mouth at [place] 00 bedtime. Medical Branch clonazePAM 2020- No [id number] .5mg Take 1 Univers 0.5 mg 3-04 06-04 tablet by ity of tablet 00:00: 00:00 mouth at [place] 00 :00 bedtime. Medical Branch clonazePAM 2020- No [id number] .5mg Take 1 Univers 0.5 mg 3-04 06-04 tablet by ity of tablet 00:00: 00:00 mouth at [place] 00 :00 bedtime. Medical Branch paliperidon Yes [id number] TAKE 1 Univers e 3 mg 24 2-26 TABLET BY ity o f hour tablet 00:00: MOUTH ONCE DAILY Medical Branch paliperidon Yes [id number] TAKE 1 Univers e 3 mg 24 2-26 TABLET BY ity o f hour tablet 00:00: MOUTH ONCE DAILY Medical Branch paliperidon Yes [id number] TAKE 1 Univers e 3 mg 24 2-26 TABLET BY ity o f hour tablet 00:00: MOUTH ONCE DAILY Medical Branch paliperidon Yes [id number] TAKE 1 Univers e 3 mg 24 2-26 TABLET BY ity o f hour tablet 00:00: MOUTH ONCE DAILY Medical Branch paliperidon Yes [id number] TAKE 1 Univers e 3 mg 24 2-26 TABLET BY ity o f hour tablet 00:00: MOUTH ONCE DAILY Medical Branch paliperidon Yes [id number] TAKE 1 Univers e 3 mg 24 2-26 TABLET BY ity o f hour tablet 00:00: MOUTH ONCE DAILY Medical Branch paliperidon Yes [id number] TAKE 1 Univers e 3 mg 24 2-26 TABLET BY ity o f hour tablet 00:00: MOUTH ONCE DAILY Medical Branch paliperidon Yes [id number] TAKE 1 Univers e 3 mg 24 2-26 TABLET BY ity o f hour tablet 00:00: MOUTH ONCE DAILY Medical Branch paliperidon 2020- No [id number] TAKE 1 Univers e 3 mg 24 2-26 04-30 TABLET BY ity of hour tablet 00:00: 00:00 MOUTH ONCE [place] 00 :00 DAILY Medical Branch paliperidon 2020-0 1- No [id number] TAKE 1 Univers e 3 mg 24 2-26 04-30 TABLET BY ity of hour tablet 00:00: 00:00 MOUTH ONCE [place] 00 :00 DAILY Medical Branch paliperidon 2020-0 1- No [id number] TAKE 1 Univers e 3 mg 24 2-09 09-30 TABLET BY ity of hour tablet 00:00: 00:00 MOUTH ONCE [place] 00 :00 DAILY Medical Branch XARELTO 2020-0 [...] 00:00: daily. Medical Branch paliperidon 2020-0 Yes [id number] TAKE 1 Univers e 3 mg 24 1-22 TABLET BY ity o f hour tablet 00:00: MOUTH ONCE [place] 00 DAILY Medical Branch mirtazapine 2020-0 Yes [id number] 7.5mg Take 1 Univers 7.5 mg 1-22 105 tablet by ity of tablet 00:00: mouth at [place] 00 bedtime. Medical Branch mirtazapine 2020-0 Yes [id number] 7.5mg Take 1 Univers 7.5 mg 1-22 105 tablet by ity of tablet 00:00: mouth at [place] bedtime. Medical Branch mirtazapine 2020-0 Yes [id number] 7.5mg Take 1 Univers 7.5 mg 1-22 105 tablet by ity of tablet 00:00: mouth at [place] [address] bedtime. Medical Branch mirtazapine 2020-0 Yes [id number] 7.5mg Take 1 Univers 7.5 mg 1-22 105 tablet by ity of tablet 00:00: mouth at [place] [address] bedtime. Medical Branch mirtazapine 2020-0 Yes [id number] 7.5mg Take 1 Univers 7.5 mg 1-22 105 tablet by ity of tablet 00:00: mouth at [place] [address] bedtime. Medical Branch mirtazapine 2020-0 Yes [id number] 7.5mg Take 1 Univers 7.5 mg 1-22 105 tablet by ity of tablet 00:00: mouth at [place] 00 bedtime. Medical Branch mirtazapine 2020-0 Yes [id number] 7.5mg Take 1 Univers 7.5 mg 1-22 105 tablet by ity of tablet 00:00: mouth at [place] 00 bedtime. Medical Branch mirtazapine 2020-0 Yes [id number] 7.5mg Take 1 Univers 7.5 mg 1-22 105 tablet by ity of tablet 00:00: mouth at [place] [address] bedtime. Medical Branch mirtazapine 2020-0 Yes [id number] 7.5mg Take 1 Univers 7.5 mg 1-22 105 tablet by ity of tablet 00:00: mouth at [place] 00 bedtime. Medical Branch propranoloL 2020- No [id number] 10mg Take 1 Univers 10 mg 1-22 07-22 tablet by ity of tablet 00:00: 04:59 mouth 2 [place] 00 :00 (two) Medical times Branch daily as needed (tremor) for up to 180 days. propranoloL 2020- No [id number] 10mg Take 1 Univers 10 mg 1-22 07-22 tablet by ity of tablet 00:00: 04:59 mouth 2 [place] 00 :00 (two) Medical times Branch daily as needed (tremor) for up to 180 days. propranoloL 2020- No [id number] 10mg Take 1 Univers 10 mg 1-22 07-22 tablet by ity of tablet 00:00: 04:59 mouth 2 [place] 00 :00 (two) Medical times Branch daily as needed (tremor) for up to 180 days. propranoloL 2020- No [id number] 10mg Take 1 Univers 10 mg 1-22 07-22 tablet by ity of tablet 00:00: 04:59 mouth 2 [place] 00 :00 (two) Medical times Branch daily as needed (tremor) for up to 180 days. propranoloL 2020- No [id number] 10mg Take 1 Univers 10 mg 1-22 07-22 tablet by ity of tablet 00:00: 04:59 mouth 2 [place] 00 :00 (two) Medical times Branch daily as needed (tremor) for up to 180 days. propranoloL 2020- No [id number] 10mg Take 1 Univers 10 mg 1-22 07-22 tablet by ity of tablet 00:00: 04:59 mouth 2 [place] 00 :00 (two) Medical times Branch daily as needed (tremor) for up to 180 days. propranoloL 2020- No [id number] 10mg Take 1 Univers 10 mg 1-22 07-22 tablet by ity of tablet 00:00: 04:59 mouth 2 [place] 00 :00 (two) Medical times Branch daily as needed (tremor) for up to 180 days. propranoloL 2020- No [id number] 10mg Take 1 Univers 10 mg 1-22 07-22 tablet by ity of tablet 00:00: 04:59 mouth 2 [place] 00 :00 (two) Medical times Branch daily as needed (tremor) for up to 180 days. propranoloL No [id number] 10mg Take 1 Univers 10 mg 1-22 07-22 tablet by ity of tablet 00:00: 04:59 mouth 2 [place] 00 :00 (two) Medical times Branch daily as needed (tremor) for up to 180 days. propranoloL 2020- No [id number] 10mg Take 1 Univers 10 mg 1-22 07-22 tablet by ity of tablet 00:00: 04:59 mouth 2 [place] 00 :00 (two) Medical times Branch daily as needed (tremor) for up to 180 days. propranoloL 2020- No [id number] 10mg Take 1 Univers 10 mg 1-22 07-22 tablet by ity of tablet 00:00: 04:59 mouth 2 [place] 00 :00 (two) Medical times Branch daily as needed (tremor) for up to 180 days. propranoloL 2020- No [id number] 10mg Take 1 Univers 10 mg 1-22 07-22 tablet by ity of tablet 00:00: 04:59 mouth 2 [place] 00 :00 (two) Medical times Branch daily as needed (tremor) for up to 180 days. propranoloL 2020- No [id number] 10mg Take 1 Univers 10 mg 1-22 07-22 tablet by ity of tablet 00:00: 04:59 mouth 2 [place] 00 :00 (two) Medical times Branch daily as needed (tremor) for up to 180 days. propranoloL 2020- No [id number] 10mg Take 1 Univers 10 mg 1-22 07-22 tablet by ity of tablet 00:00: 04:59 mouth 2 [place] 00 :00 (two) Medical times Branch daily as needed (tremor) for up to 180 days. mirtazapine 2020- No [id number] 7.5mg Take 1 Univers 7.5 mg 1-22 04-30 105 tablet by ity of tablet 00:00: 00:00 mouth at [place] 00 :00 bedtime. Medical Branch mirtazapine 2020- No [id number] 7.5mg Take 1 Univers 7.5 mg 1-22 04-30 105 tablet by ity of tablet 00:00: 00:00 mouth at [place] 00 :00 bedtime. Medical Branch mirtazapine 2020- No [id number] 7.5mg Take 1 Univers 7.5 mg 1-22 04-30 105 tablet by ity of tablet 00:00: 00:00 mouth at [place] 00 :00 bedtime. Medical Branch divalproex 2019- Yes [id number] 500mg Take 2 Univers ER 250 mg 2-26 tablets by ity of 24 hr 00:00: mouth at [place] tablet 00 bedtime. Medical Branch divalproex 2019-05- No [id number] 500mg Take 2 Univers ER 250 mg 2-26 01-06 tablets by ity of 24 hr 00:00: 05:59 mouth at [place] tablet 00 :00 bedtime Medical for 10 . divalproex 2019-05 Yes [id number] 500mg Take 2 Univers ER 250 mg 1-13 tablets by ity of 24 hr 00:00: mouth at [place] tablet 00 bedtime. Medical Branch divalproex 2019- Yes [id number] 500mg Take 2 Univers ER 250 mg 1-13 tablets by ity of 24 hr 00:00: mouth at [place] tablet 00 bedtime. Medical Branch divalproex 2019- Yes [id number] 500mg Take 2 Univers ER 250 mg 1-13 tablets by ity of 24 hr 00:00: mouth at [place] tablet 00 bedtime. Medical Branch divalproex 2019-05 Yes [id number] 500mg Take 2 Univers ER 250 mg 1-13 tablets by ity of 24 hr 00:00: mouth at [place] tablet 00 bedtime. Medical Branch clonazePAM 2019- Yes [id number] .5mg Take 1 U nivers 0.5 mg 1-03 tablet by ity of tablet 00:00: mouth at [place] 00 bedtime. Medical Branch mirtazapine 2019- Yes [id number] 7.5mg Take 1 Univers 7.5 mg 1-03 105 tablet by ity of tablet 00:00: mouth at [place] 00 bedtime. Medical Branch paliperidon 2019- Yes [id number] TAKE 1 Univers e 3 mg 24 1-03 TABLET BY ity o f hour tablet 00:00: MOUTH ONCE [place] 00 DAILY Medical Branch clonazePAM 2019- Yes [id number] .5mg Take 1 U nivers 0.5 mg 1-03 tablet by ity of tablet 00:00: mouth at [place] 00 bedtime. Medical Branch mirtazapine 2019- Yes [id number] 7.5mg Take 1 Univers 7.5 mg 1-03 105 tablet by ity of tablet 00:00: mouth at [place] 00 bedtime. Medical Branch paliperidon 2020-1 Yes [id number] TAKE 1 Univers e 3 mg 24 1-03 TABLET BY ity o f hour tablet 00:00: MOUTH ONCE [place] 00 DAILY Medical Branch clonazePAM 2020-1 Yes [id number] .5mg Take 1 U nivers 0.5 mg 1-03 tablet by ity of tablet 00:00: mouth at [place] 00 bedtime. Medical Branch mirtazapine 2020-1 Yes [id number] 7.5mg Take 1 Univers 7.5 mg 1-03 105 tablet by ity of tablet 00:00: mouth at [place] 00 bedtime. Medical Branch paliperidon 2020-1 Yes [id number] TAKE 1 Univers e 3 mg 24 1-03 TABLET BY ity o f hour tablet 00:00: MOUTH ONCE [place] 00 DAILY Medical Branch clonazePAM 2020-1 Yes [id number] .5mg Take 1 U nivers 0.5 mg 1-03 tablet by ity of tablet 00:00: mouth at [place] [address] bedtime. Medical Branch clonazePAM 2020-1 Yes [id number] .5mg Take 1 U nivers 0.5 mg 1-03 tablet by ity of tablet 00:00: mouth at [place] [address] bedtime. Medical Branch clonazePAM 2020-1 Yes [id number] .5mg Take 1 U nivers 0.5 mg 1-03 tablet by ity of tablet 00:00: mouth at [place] [address] bedtime. Medical Branch mirtazapine 2020-1 Yes [id number] 7.5mg Take 1 Univers 7.5 mg 1-03 105 tablet by ity of tablet 00:00: mouth at [place] 00 bedtime. Medical Branch clonazePAM 2020-1 Yes [id number] .5mg Take 1 U nivers 0.5 mg 1-03 tablet by ity of tablet 00:00: mouth at [place] 00 bedtime. Medical Branch mirtazapine 2020- Yes [id number] 7.5mg Take 1 Univers 7.5 mg 1-03 105 tablet by ity of tablet 00:00: mouth at [place] 00 bedtime. Medical Branch paliperidon 2020-1 Yes [id number] TAKE 1 Univers e 3 mg 24 1-03 TABLET BY ity o f hour tablet 00:00: MOUTH ONCE [place] DAILY Medical Branch clonazePAM 2020- Yes [id number] .5mg Take 1 U nivers 0.5 mg 1-03 tablet by ity of tablet 00:00: mouth at [place] 00 bedtime. Medical Branch mirtazapine 2019- Yes [id number] 7.5mg Take 1 Univers 7.5 mg 1-03 105 tablet by ity of tablet 00:00: mouth at [place] 00 bedtime. Medical Branch paliperidon 2019- Yes [id number] TAKE 1 Univers e 3 mg 24 1-03 TABLET BY ity o f hour tablet 00:00: MOUTH ONCE [place] 00 DAILY Medical Branch clonazePAM 2019- Yes [id number] .5mg Take 1 U nivers 0.5 mg 1-03 tablet by ity of tablet 00:00: mouth at [place] 00 bedtime. Medical Branch mirtazapine 2019- Yes [id number] 7.5mg Take 1 Univers 7.5 mg 1-03 105 tablet by ity of tablet 00:00: mouth at [place] 00 bedtime. Medical Branch paliperidon 2019- Yes [id number] TAKE 1 Univers e 3 mg 24 1-03 TABLET BY ity o f hour tablet 00:00: MOUTH ONCE [place] DAILY Medical Branch clonazePAM 2019- Yes [id number] .5mg Take 1 U nivers 0.5 mg 1-03 tablet by ity of tablet 00:00: mouth at [place] 00 bedtime. Medical Branch mirtazapine 2019- Yes [id number] 7.5mg Take 1 Univers 7.5 mg 1-03 105 tablet by ity of tablet 00:00: mouth at [place] 00 bedtime. Medical Branch paliperidon 2019- Yes [id number] TAKE 1 Univers e 3 mg 24 1-03 TABLET BY ity o f hour tablet 00:00: MOUTH ONCE [place] 00 DAILY Medical Branch clonazePAM 2019- Yes [id number] .5mg Take 1 U nivers 0.5 mg 1-03 tablet by ity of tablet 00:00: mouth at [place] 00 bedtime. Medical Branch mirtazapine 2019- Yes [id number] 7.5mg Take 1 Univers 7.5 mg 1-03 105 tablet by ity of tablet 00:00: mouth at [place] 00 bedtime. Medical Branch paliperidon 2019- Yes [id number] TAKE 1 Univers e 3 mg 24 1-03 TABLET BY ity o f hour tablet 00:00: MOUTH ONCE 00 DAILY Medical Branch clonazePAM 2019- Yes [id number] .5mg Take 1 U nivers 0.5 mg 1-03 tablet by ity of tablet 00:00: mouth at [place] bedtime. Medical Branch mirtazapine 2019- Yes [id number] 7.5mg Take 1 Univers 7.5 mg 1-03 105 tablet by ity of tablet 00:00: mouth at [place] 00 bedtime. Medical Branch paliperidon 2019- Yes [id number] TAKE 1 Univers e 3 mg 24 1-03 TABLET BY ity o f hour tablet 00:00: MOUTH ONCE 00 DAILY Medical Branch mirtazapine 2019- Yes [id number] 7.5mg Take 1 Univers 7.5 mg 0-30 105 tablet by ity of tablet 00:00: mouth at [place] bedtime. Medical Branch mirtazapine 2019- Yes [id number] 7.5mg Take 1 Univers 7.5 mg 0-02 105 tablet by ity of tablet 00:00: mouth at [place] bedtime. Medical Branch mirtazapine 2019-05 Yes [id number] 7.5mg Take 1 Univers 7.5 mg 0-02 105 tablet by ity of tablet 00:00: mouth at [place] bedtime. Medical Branch propranolol 2020-0 Yes [id number] 10mg Take 1 Univers 10 mg 8-03 tablet by ity of tablet 00:00: mouth 2 (two) Medical times Branch daily as needed (tremor). propranolol 2020-0 Yes [id number] 10mg Take 1 Univers 10 mg 8-03 tablet by ity of tablet 00:00: mouth 2 (two) Medical times Branch daily as needed (tremor). propranolol 2020-0 Yes [id number] 10mg Take 1 Univers 10 mg 8-03 tablet by ity of tablet 00:00: mouth 2 (two) Medical times Branch daily as needed (tremor). propranolol 2020-0 Yes [id number] 10mg Take 1 Univers 10 mg 8-03 tablet by ity of tablet 00:00: mouth 2 (two) Medical times Branch daily as needed (tremor). propranolol 2020-0 Yes [id number] 10mg Take 1 [facility] 10 mg 8-03 tablet by ity of tablet 00:00: mouth 2 (two) Medical times Branch daily as needed (tremor). propranolol 2020-0 Yes [id number] 10mg Take 1 Univers 10 mg 8-03 tablet by ity of tablet 00:00: mouth (two) Medical times Branch daily as needed (tremor). propranolol 2020-0 Yes [id number] 10mg Take 1 Univers 10 mg 8-03 tablet by ity of tablet 00:00: mouth (two) Medical times Branch daily as needed (tremor). propranolol 2020-0 Yes [id number] 10mg Take 1 Univers 10 mg 8-03 tablet by ity of tablet 00:00: mouth (two) Medical times Branch daily as needed (tremor). propranolol 2020-0 Yes [id number] 10mg Take 1 [facility] 10 mg 8-03 tablet by ity of tablet 00:00: mouth (two) Medical times Branch daily as needed (tremor). propranolol 2020-0 Yes [id number] 10mg Take 1 Univers 10 mg 8-03 tablet by ity of tablet 00:00: mouth (two) Medical times Branch daily as needed (tremor). propranolol 2020-0 Yes [id number] 10mg Take 1 [facility] 10 mg 8-03 tablet by ity of tablet 00:00: mouth (two) Medical times Branch daily as needed (tremor). propranolol 2020-0 Yes [id number] 10mg Take 1 [facility] 10 mg 8-03 tablet by ity of tablet 00:00: mouth (two) Medical times Branch daily as needed (tremor). propranolol 2020-0 Yes [id number] 10mg Take 1 [facility] 10 mg 8-03 tablet by ity of tablet 00:00: mouth (two) Medical times Branch daily as needed (tremor). propranolol 2020-0 Yes [id number] 10mg Take 1 [facility] 10 mg 8-03 tablet by ity of tablet 00:00: mouth (two) Medical times Branch daily as needed (tremor). propranolol 2020-0 Yes [id number] 10mg Take 1 [facility] 10 mg 8-03 tablet by ity of tablet 00:00: mouth (two) Medical times Branch daily as needed (tremor). propranolol 2020-0 Yes [id number] 10mg Take 1 [facility] 10 mg 8-03 tablet by ity of tablet 00:00: mouth 2 [place] 00 (two) Medical times Branch daily as needed (tremor). propranolol 2020-0 Yes [id number] 10mg Take 1 Univers 10 mg 8-03 tablet by ity of tablet 00:00: mouth (two) Medical times Branch daily as needed (tremor). propranolol 2020-0 Yes [id number] 10mg Take 1 Univers 10 mg 8-03 tablet by ity of tablet 00:00: mouth (two) Medical times Branch daily as needed (tremor). propranolol 2020-0 Yes [id number] 10mg Take 1 [facility] 10 mg 8-03 tablet by [facility] tablet 00:00: mouth (two) Medical times Branch daily as needed (tremor). propranolol 2020-0 Yes [id number] 10mg Take 1 [facility] 10 mg 8-03 tablet by [facility] tablet 00:00: mouth (two) Medical times Branch daily as needed (tremor). propranolol 2020-0 Yes [id number] 10mg Take 1 [facility] 10 mg 8-03 tablet by [facility] tablet 00:00: mouth (two) Medical times Branch daily as needed (tremor). propranolol 2020-0 Yes [id number] 10mg Take 1 [facility] 10 mg 8-03 tablet by [facility] tablet 00:00: mouth (two) Medical times Branch daily as needed (tremor). propranolol 2020-0 Yes [id number] 10mg Take 1 [facility] 10 mg 8-03 tablet by [facility] tablet 00:00: mouth (two) Medical times Branch daily as needed (tremor). propranolol 2020-0 Yes [id number] 10mg Take 1 [facility] 10 mg 8-03 tablet by [facility] tablet 00:00: mouth (two) Medical times [facility] daily as needed (tremor). propranolol 2020-0 Yes [id number] 10mg Take 1 [facility] 10 mg 8-03 tablet by [facility] tablet 00:00: mouth (two) Medical times [facility] daily as needed (tremor). propranolol 2020-0 Yes [id number] 10mg Take 1 [facility] 10 mg 8-03 tablet by [facility] tablet 00:00: mouth (two) Medical times [facility] daily as needed (tremor). propranolol 2020-0 Yes [id number] 10mg Take 1 [facility] 10 mg 8-03 tablet by [facility] tablet 00:00: mouth (two) Medical times [facility] daily as needed (tremor). propranolol 2020-0 Yes [id number] 10mg Take 1 [facility] 10 mg 8-03 tablet by [facility] tablet 00:00: mouth 2 (two) Medical times [facility] daily as needed (tremor). propranolol 2020-0 Yes [id number] 10mg Take 1 [facility] 10 mg 8-03 tablet by [facility] tablet 00:00: mouth 2 (two) Medical times [facility] daily as needed (tremor). propranolol 2020-0 Yes [id number] 10mg Take 1 [facility] 10 mg 8-03 tablet by [facility] tablet 00:00: mouth 2 (two) Medical times [facility] daily as needed (tremor). propranolol 2020-0 Yes [id number] 10mg Take 1 [facility] 10 mg 8-03 tablet by [facility] tablet 00:00: mouth 2 (two) Medical times Branch daily as needed (tremor). divalproex 2020-0 Yes [id number] 500mg Take 2 [facility] 250 mg 7-14 tablets by [facility] 24 hr 00:00: mouth at [place] tablet 00 bedtime. [facility] divalproex 2020-0 Yes [id number] 500mg Take 2 [facility] 250 mg 7-14 tablets by [facility] 24 hr 00:00: mouth at [place] tablet 00 bedtime. [facility] divalproex 2020-0 Yes [id number] 500mg Take 2 [facility] 250 mg 7-14 tablets by [facility] 24 hr 00:00: mouth at [place] tablet 00 bedtime. [facility] divalproex 2020-0 Yes [id number] 500mg Take 2 [facility] 250 mg 7-14 tablets by [facility] 24 hr 00:00: mouth at [place] tablet 00 bedtime. [facility] divalproex 2020-0 Yes [id number] 500mg Take 2 [facility] 250 mg 7-14 tablets by [facility] 24 hr 00:00: mouth at [place] tablet 00 bedtime. [facility] divalproex 2020-0 Yes [id number] 500mg Take 2 [facility] 250 mg 7-14 tablets by [facility] 24 hr 00:00: mouth at [place] tablet 00 bedtime. [facility] divalproex 2020-0 Yes [id number] 500mg Take 2 [facility] 250 mg 7-14 tablets by [facility] 24 hr 00:00: mouth at [place] tablet 00 bedtime. [facility] divalproex 2020-0 Yes [id number] 500mg Take 2 [facility] 250 mg 7-14 tablets by [facility] 24 hr 00:00: mouth at [place] tablet 00 bedtime. [facility] divalproex 2020-0 Yes [id number] 500mg Take 2 [facility] 250 mg 7-14 tablets by [facility] 24 hr 00:00: mouth at [place] tablet 00 bedtime. [facility] divalproex 2020-0 Yes [id number] 500mg Take 2 [facility] 250 mg 7-14 tablets by [facility] 24 hr 00:00: mouth at [place] tablet 00 bedtime. [facility] divalproex 2020-0 Yes [id number] 500mg Take 2 [facility] 250 mg 7-14 tablets by [facility] 24 hr 00:00: mouth at [place] tablet 00 bedtime. [facility] divalproex 2020-0 Yes [id number] 500mg Take 2 [facility] 250 mg 7-14 tablets by [facility] 24 hr 00:00: mouth at [place] tablet 00 bedtime. [facility] divalproex 2020-0 Yes [id number] 500mg Take 2 [facility] 250 mg 7-14 tablets by [facility] 24 hr 00:00: mouth at [place] tablet 00 bedtime. [facility] divalproex 2020-0 Yes [id number] 500mg Take 2 [facility] 250 mg 7-14 tablets by [facility] 24 hr 00:00: mouth at [place] tablet 00 bedtime. [facility] divalproex 2020-0 Yes [id number] 500mg Take 2 [facility] 250 mg 7-14 tablets by [facility] 24 hr 00:00: mouth at [place] tablet 00 bedtime. [facility] divalproex 2020-0 Yes [id number] 500mg Take 2 [facility] 250 mg 7-14 tablets by [facility] 24 hr 00:00: mouth at [place] tablet 00 bedtime. [facility] divalproex 2020-0 Yes [id number] 500mg Take 2 [facility] 250 mg 7-14 tablets by [facility] 24 hr 00:00: mouth at [place] tablet 00 bedtime. [facility] divalproex 2020-0 Yes [id number] 500mg Take 2 [facility] 250 mg 7-14 tablets by [facility] 24 hr 00:00: mouth at [place] tablet 00 bedtime. [facility] divalproex 2020-0 Yes [id number] 500mg Take 2 [facility] 250 mg 7-14 tablets by [facility] 24 hr 00:00: mouth at [place] tablet 00 bedtime. [facility] divalproex 2020-0 Yes [id number] 500mg Take 2 [facility] 250 mg 7-14 tablets by [facility] 24 hr 00:00: mouth at [place] tablet 00 bedtime. [facility] divalproex 2020-0 Yes [id number] 500mg Take 2 [facility] 250 mg 7-14 tablets by [facility] 24 hr 00:00: mouth at [place] tablet 00 bedtime. [facility] divalproex 2020-0 Yes [id number] 500mg Take 2 [facility] 250 mg 7-14 tablets by [facility] 24 hr 00:00: mouth at [place] tablet 00 bedtime. [facility] divalproex 2020-0 Yes [id number] 500mg Take 2 [facility] 250 mg 7-14 tablets by [facility] 24 hr 00:00: mouth at [place] tablet 00 bedtime. [facility] divalproex 2020-0 Yes [id number] 500mg Take 2 [facility] 250 mg 7-14 tablets by [facility] 24 hr 00:00: mouth at [place] tablet 00 bedtime. [facility] divalproex 2020-0 Yes [id number] 500mg Take 2 [facility] 250 mg 7-14 tablets by [facility] 24 hr 00:00: mouth at [place] tablet 00 bedtime. [facility] divalproex 2020-0 Yes [id number] 500mg Take 2 [facility] 250 mg 7-14 tablets by [facility] 24 hr 00:00: mouth at [place] tablet 00 bedtime. [facility] divalproex 2020-0 Yes [id number] 500mg Take 2 [facility] 250 mg 7-14 tablets by [facility] 24 hr 00:00: mouth at [place] tablet 00 bedtime. [facility] divalproex 2020-0 Yes [id number] 500mg Take 2 [facility] 250 mg 7-14 tablets by [facility] 24 hr 00:00: mouth at [place] tablet 00 bedtime. [facility] mirtazapine 2020-0 Yes [id number] 7.5mg Take 1 [facility] 7.5 mg 7-10 105 tablet by [facility] tablet 00:00: mouth at [place] 00 bedtime. [facility] mirtazapine 2020-0 Yes [id number] 7.5mg Take 1 [facility] 7.5 mg 7-10 105 tablet by [facility] tablet 00:00: mouth at [place] 00 bedtime. [facility] mirtazapine 2020-0 Yes [id number] 7.5mg Take 1 [facility] 7.5 mg 7-10 105 tablet by [facility] tablet 00:00: mouth at [place] [address] bedtime. [facility] mirtazapine 2020-0 Yes [id number] 7.5mg Take 1 [facility] 7.5 mg 7-10 105 tablet by [facility] tablet 00:00: mouth at [place] [address] bedtime. [facility] mirtazapine 2020-0 Yes [id number] 7.5mg Take 1 [facility] 7.5 mg 7-10 105 tablet by [facility] tablet 00:00: mouth at [place] bedtime. [facility] mirtazapine 2020-0 Yes [id number] 7.5mg Take 1 [facility] 7.5 mg 7-10 105 tablet by [facility] of tablet 00:00: mouth at [place] bedtime. [facility] mirtazapine 2020-0 Yes [id number] 7.5mg Take 1 [facility] 7.5 mg 7-10 105 tablet by [facility] of tablet 00:00: mouth at [place] [address] bedtime. [facility] mirtazapine 2020-0 Yes [id number] 7.5mg Take 1 [facility] 7.5 mg 7-10 105 tablet by [facility] of tablet 00:00: mouth at [place] [address] bedtime. [facility] mirtazapine 2020-0 Yes [id number] 7.5mg Take 1 [facility] 7.5 mg 7-10 105 tablet by [facility] of tablet 00:00: mouth at [place] [address] bedtime. [facility] mirtazapine 2020-0 Yes [id number] 7.5mg Take 1 [facility] 7.5 mg 7-10 105 tablet by [facility] of tablet 00:00: mouth at [place] [address] bedtime. [facility] mirtazapine 2020-0 Yes [id number] 7.5mg Take 1 [facility] 7.5 mg 7-10 105 tablet by [facility] of tablet 00:00: mouth at [place] [address] bedtime. [facility] mirtazapine 2020-0 Yes [id number] 7.5mg Take 1 [facility] 7.5 mg 7-10 105 tablet by [facility] of tablet 00:00: mouth at [place] [address] bedtime. [facility] mirtazapine 2020-0 Yes [id number] 7.5mg Take 1 [facility] 7.5 mg 7-10 105 tablet by [facility] of tablet 00:00: mouth at [place] [address] bedtime. [facility] mirtazapine 2020-0 Yes [id number] 7.5mg Take 1 [facility] 7.5 mg 7-10 105 tablet by [facility] of tablet 00:00: mouth at [place] [address] bedtime. Medical Branch mirtazapine 2020-0 Yes [id number] 7.5mg Take 1 [facility] 7.5 mg 7-10 105 tablet by [facility] of tablet 00:00: mouth at [place] [address] bedtime. Medical [facility] mirtazapine 2020-0 Yes [id number] 7.5mg Take 1 [facility] 7.5 mg 7-10 105 tablet by [facility] of tablet 00:00: mouth at [place] [address] bedtime. [facility] mirtazapine 2020-0 Yes [id number] 7.5mg Take 1 [facility] 7.5 mg 7-10 105 tablet by [facility] of tablet 00:00: mouth at [place] [address] bedtime. Medical [facility] mirtazapine 2020-0 Yes [id number] 7.5mg Take 1 [facility] 7.5 mg 7-10 105 tablet by [facility] of tablet 00:00: mouth at [place] [address] bedtime. Medical [facility] mirtazapine 2020-0 Yes [id number] 7.5mg Take 1 [facility] 7.5 mg 7-10 105 tablet by [facility] of tablet 00:00: mouth at [place] [address] bedtime. [facility] mirtazapine 2020-0 Yes [id number] 7.5mg Take 1 [facility] 7.5 mg 7-10 105 tablet by [facility] of tablet 00:00: mouth at [place] [address] bedtime. [facility] mirtazapine 2020-0 Yes [id number] 7.5mg Take 1 [facility] 7.5 mg 7-10 105 tablet by [facility] of tablet 00:00: mouth at [place] [address] bedtime. [facility] mirtazapine 2020-0 Yes [id number] 7.5mg Take 1 [facility] 7.5 mg 7-10 105 tablet by [facility] of tablet 00:00: mouth at [place] [address] bedtime. Medical [facility] paliperidon 2020-0 Yes [id number] TAKE 1 [facility] e 3 mg 24 4-24 TABLET BY ity o f hour tablet 00:00: MOUTH ONCE [place] 00 DAILY Medical Branch paliperidon 2020-0 Yes [id number] TAKE 1 [facility] e 3 mg 24 4-24 TABLET BY ity o f hour tablet 00:00: MOUTH ONCE [place] 00 DAILY Medical Branch paliperidon 2020-0 Yes [id number] TAKE 1 [facility] e 3 mg 24 4-24 TABLET BY ity o f hour tablet 00:00: MOUTH ONCE DAILY Medical Branch paliperidon 2020-0 Yes [id number] TAKE 1 [facility] e 3 mg 24 4-24 TABLET BY ity o f hour tablet 00:00: MOUTH ONCE DAILY Medical Branch paliperidon 2020-0 Yes [id number] TAKE 1 [facility] e 3 mg 24 4-24 TABLET BY ity o f hour tablet 00:00: MOUTH ONCE DAILY Medical Branch paliperidon 2020-0 Yes [id number] TAKE 1 [facility] e 3 mg 24 4-24 TABLET BY ity o f hour tablet 00:00: MOUTH ONCE DAILY Medical Branch paliperidon 2020-0 Yes [id number] TAKE 1 [facility] e 3 mg 24 4-24 TABLET BY ity o f hour tablet 00:00: MOUTH ONCE DAILY Medical Branch paliperidon 2020-0 Yes [id number] TAKE 1 [facility] e 3 mg 24 4-24 TABLET BY ity o f hour tablet 00:00: MOUTH ONCE DAILY Medical Branch paliperidon 2020-0 Yes [id number] TAKE 1 [facility] e 3 mg 24 4-24 TABLET BY ity o f hour tablet 00:00: MOUTH ONCE DAILY Medical Branch paliperidon 2020-0 Yes [id number] TAKE 1 [facility] e 3 mg 24 4-24 TABLET BY ity o f hour tablet 00:00: MOUTH ONCE DAILY Medical Branch paliperidon 2020-0 Yes [id number] TAKE 1 [facility] e 3 mg 24 4-24 TABLET BY ity o f hour tablet 00:00: MOUTH ONCE DAILY Medical Branch paliperidon 2020-0 Yes [id number] TAKE 1 [facility] e 3 mg 24 4-24 TABLET BY ity o f hour tablet 00:00: MOUTH ONCE DAILY Medical Branch paliperidon 2020-0 Yes [id number] TAKE 1 [facility] e 3 mg 24 4-24 TABLET BY ity o f hour tablet 00:00: MOUTH ONCE DAILY Medical Branch paliperidon 2020-0 Yes [id number] TAKE 1 [facility] e 3 mg 24 4-24 TABLET BY ity o f hour tablet 00:00: MOUTH ONCE DAILY Medical Branch paliperidon 2020-0 Yes [id number] TAKE 1 [facility] e 3 mg 24 4-24 TABLET BY ity o f hour tablet 00:00: MOUTH ONCE DAILY Medical Branch paliperidon 2020-0 Yes [id number] TAKE 1 [facility] e 3 mg 24 4-24 TABLET BY ity o f hour tablet 00:00: MOUTH ONCE DAILY Medical Branch paliperidon 2020-0 Yes [id number] TAKE 1 [facility] e 3 mg 24 4-24 TABLET BY ity o f hour tablet 00:00: MOUTH ONCE DAILY Medical Branch paliperidon 2020-0 Yes [id number] TAKE 1 [facility] e 3 mg 24 4-24 TABLET BY ity o f hour tablet 00:00: MOUTH ONCE DAILY Medical Branch paliperidon 2020-0 Yes [id number] TAKE 1 [facility] e 3 mg 24 4-24 TABLET BY ity o f hour tablet 00:00: MOUTH ONCE DAILY Medical Branch paliperidon 2020-0 Yes [id number] TAKE 1 [facility] e 3 mg 24 4-24 TABLET BY ity o f hour tablet 00:00: MOUTH ONCE DAILY [facility] Branch paliperidon 2020-0 Yes [id number] TAKE 1 [facility] e 3 mg 24 4-24 TABLET BY ity o f hour tablet 00:00: MOUTH ONCE DAILY Medical Branch paliperidon 2019-0 Yes [id number] TAKE 1 [facility] e 3 mg 24 4-24 TABLET BY ity o f hour tablet 00:00: MOUTH ONCE DAILY [facility] Branch paliperidon 2020-0 Yes [id number] TAKE 1 [facility] e 3 mg 24 4-24 TABLET BY ity o f hour tablet 00:00: MOUTH ONCE DAILY [facility] Branch paliperidon 2020-0 Yes [id number] TAKE 1 [facility] e 3 mg 24 4-24 TABLET BY ity o f hour tablet 00:00: MOUTH ONCE DAILY [facility] Branch paliperidon 2020-0 Yes [id number] TAKE 1 [facility] e 3 mg 24 4-24 TABLET BY ity o f hour tablet 00:00: MOUTH ONCE DAILY [facility] Branch paliperidon 2020-0 Yes [id number] TAKE 1 [facility] e 3 mg 24 4-24 TABLET BY ity o f hour tablet 00:00: MOUTH ONCE DAILY [facility] Branch paliperidon 2020-0 Yes [id number] TAKE 1 [facility] e 3 mg 24 4-24 TABLET BY ity o f hour tablet 00:00: MOUTH ONCE DAILY Medical Branch paliperidon 2020-0 Yes [id number] TAKE 1 [facility] e 3 mg 24 4-24 TABLET BY ity o f hour tablet 00:00: MOUTH ONCE [place] 00 DAILY Medical Branch divalproex 2020-0 Yes [id number] 500mg Take 2 [facility] ER 250 mg 4-23 tablets by [facility] of 24 hr 00:00: mouth at [place] tablet 00 bedtime. [facility] Branch divalproex 2020-0 Yes [id number] 500mg Take 2 [facility] ER 250 mg 4-23 tablets by [facility] of 24 hr 00:00: mouth at [place] tablet 00 bedtime. [facility] divalproex 2020-0 Yes [id number] 500mg Take 2 [facility] ER 250 mg 4-23 tablets by [facility] of 24 hr 00:00: mouth at [place] tablet 00 bedtime. [facility] divalproex 2020-0 Yes [id number] 500mg Take 2 [facility] ER 250 mg 4-23 tablets by [facility] of 24 hr 00:00: mouth at [place] tablet 00 bedtime. [facility] Branch divalproex 2020-0 Yes [id number] 500mg Take 2 [facility] ER 250 mg 4-23 tablets by [facility] of 24 hr 00:00: mouth at [place] tablet 00 bedtime. Medical Branch TOPIRAMATE 2020-0 Yes [id number] TAKE 1 [facility] 25 mg 4-22 TABLET BY it[facility] of tablet 00:00: MOUTH TWO [place] TIMES Medical DAILY Branch TOPIRAMATE 2020-0 Yes [id number] TAKE 1 [facility] 25 mg 4-22 TABLET BY ity of tablet 00:00: MOUTH TWO [place] TIMES Medical DAILY Branch TOPIRAMATE 2020-0 Yes [id number] TAKE 1 [facility] 25 mg 4-22 TABLET BY ity of tablet 00:00: MOUTH TWO [place] TIMES Medical DAILY Branch TOPIRAMATE 2020-0 Yes [id number] TAKE 1 [facility] 25 mg 4-22 TABLET BY ity of tablet 00:00: MOUTH TWO [place] TIMES Medical DAILY Branch TOPIRAMATE 2020-0 Yes [id number] TAKE 1 [facility] 25 mg 4-22 TABLET BY ity of tablet 00:00: MOUTH TWO [place] TIMES Medical DAILY Branch TOPIRAMATE 2020-0 Yes [id number] TAKE 1 [facility] 25 mg 4-22 TABLET BY ity of tablet 00:00: MOUTH TWO [place] TIMES Medical DAILY Branch TOPIRAMATE 2020-0 Yes [id number] TAKE 1 [facility] 25 mg 4-22 TABLET BY ity of tablet 00:00: MOUTH TWO [place] TIMES Medical DAILY Branch TOPIRAMATE 2020-0 Yes [id number] TAKE 1 [facility] 25 mg 4-22 TABLET BY ity of tablet 00:00: MOUTH TWO [place] TIMES Medical DAILY Branch TOPIRAMATE 2020-0 Yes [id number] TAKE 1 [facility] 25 mg 4-22 TABLET BY ity of tablet 00:00: MOUTH TWO [place] TIMES Medical DAILY Branch TOPIRAMATE 2020-0 Yes [id number] TAKE 1 [facility] 25 mg 4-22 TABLET BY ity of tablet 00:00: MOUTH TWO [place] TIMES Medical DAILY Branch TOPIRAMATE 2020-0 Yes [id number] TAKE 1 [facility] 25 mg 4-22 TABLET BY ity of tablet 00:00: MOUTH TWO [place] TIMES Medical DAILY Branch TOPIRAMATE 2020-0 Yes [id number] TAKE 1 [facility] 25 mg 4-22 TABLET BY ity of tablet 00:00: MOUTH TWO [place] Medical DAILY Branch TOPIRAMATE 2020-0 Yes [id number] TAKE 1 [facility] 25 mg 4-22 TABLET BY ity of tablet 00:00: MOUTH TWO [place] Medical DAILY Branch TOPIRAMATE 2020-0 Yes [id number] TAKE 1 [facility] 25 mg 4-22 TABLET BY ity of tablet 00:00: MOUTH TWO [place] Medical DAILY Branch TOPIRAMATE 2020-0 Yes [id number] TAKE 1 [facility] 25 mg 4-22 TABLET BY ity of tablet 00:00: [facility] TWO [place] Medical DAILY Branch TOPIRAMATE 2020-0 Yes [id number] TAKE 1 [facility] 25 mg 4-22 TABLET BY ity of tablet 00:00: MOUTH TWO [place] Medical DAILY Branch TOPIRAMATE 2020-0 Yes [id number] TAKE 1 [facility] 25 mg 4-22 TABLET BY ity of tablet 00:00: MOUTH TWO [place] TIMES Medical DAILY Branch TOPIRAMATE 2020-0 Yes [id number] TAKE 1 [facility] 25 mg 4-22 TABLET BY ity of tablet 00:00: MOUTH TWO [place] TIMES Medical DAILY Branch TOPIRAMATE 2020-0 Yes [id number] TAKE 1 [facility] 25 mg 4-22 TABLET BY ity of tablet 00:00: MOUTH TWO [place] TIMES Medical DAILY Branch TOPIRAMATE 2020-0 Yes [id number] TAKE 1 [facility] 25 mg 4-22 TABLET BY ity of tablet 00:00: MOUTH TWO [place] TIMES Medical DAILY Branch TOPIRAMATE 2020-0 Yes [id number] TAKE 1 [facility] 25 mg 4-22 TABLET BY ity of tablet 00:00: MOUTH TWO [place] TIMES Medical DAILY Branch TOPIRAMATE 2020-0 Yes [id number] TAKE 1 [facility] 25 mg 4-22 TABLET BY ity of tablet 00:00: MOUTH TWO [place] Medical DAILY Branch TOPIRAMATE 2020-0 Yes [id number] TAKE 1 [facility] 25 mg 4-22 TABLET BY ity of tablet 00:00: MOUTH TWO [place] TIMES Medical DAILY Branch TOPIRAMATE 2020-0 Yes [id number] TAKE 1 [facility] 25 mg 4-22 TABLET BY ity of tablet 00:00: MOUTH TWO [place] TIMES Medical DAILY Branch TOPIRAMATE 2020-0 Yes [id number] TAKE 1 [facility] 25 mg 4-22 TABLET BY ity of tablet 00:00: MOUTH TWO [place] Medical DAILY Branch TOPIRAMATE 2020-0 Yes [id number] TAKE 1 [facility] 25 mg 4-22 TABLET BY ity of tablet 00:00: MOUTH TWO [place] Medical DAILY Branch TOPIRAMATE 2020-0 Yes [id number] TAKE 1 [facility] 25 mg 4-22 TABLET BY ity of tablet 00:00: MOUTH TWO [place] Medical DAILY Branch TOPIRAMATE 2020-0 Yes [id number] TAKE 1 [facility] 25 mg 4-22 TABLET BY ity of tablet 00:00: MOUTH TWO [place] Medical DAILY Branch TOPIRAMATE 2020-0 Yes [id number] TAKE 1 [facility] 25 mg 4-22 TABLET BY ity of tablet 00:00: MOUTH TWO [place] Medical DAILY Branch TOPIRAMATE 2020-0 Yes [id number] TAKE 1 [facility] 25 mg 4-22 TABLET BY ity of tablet 00:00: MOUTH TWO [place] TIMES Medical DAILY Branch TOPIRAMATE 2020-0 Yes [id number] TAKE 1 [facility] 25 mg 4-22 TABLET BY ity of tablet 00:00: MOUTH TWO [place] Medical DAILY Branch TOPIRAMATE 2020-0 Yes [id number] TAKE 1 [facility] 25 mg 4-22 TABLET BY ity of tablet 00:00: MOUTH TWO [place] TIMES Medical DAILY Branch TOPIRAMATE 2020-0 Yes [id number] TAKE 1 [facility] 25 mg 4-22 TABLET BY ity of tablet 00:00: MOUTH TWO [place] TIMES Medical DAILY Branch TOPIRAMATE 2020-0 Yes [id number] TAKE 1 [facility] 25 mg 4-22 TABLET BY ity of tablet 00:00: MOUTH TWO [place] TIMES Medical DAILY Branch TOPIRAMATE 2020-0 Yes [id number] TAKE 1 [facility] 25 mg 4-22 TABLET BY ity of tablet 00:00: MOUTH TWO [place] TIMES Medical DAILY Branch TOPIRAMATE 2020-0 Yes [id number] TAKE 1 [facility] 25 mg 4-22 TABLET BY ity of tablet 00:00: MOUTH TWO [place] TIMES Medical DAILY Branch TOPIRAMATE 2020-0 Yes [id number] TAKE 1 [facility] 25 mg 4-22 TABLET BY ity of tablet 00:00: MOUTH TWO [place] TIMES Medical DAILY Branch TOPIRAMATE 2020-0 Yes [id number] TAKE 1 [facility] 25 mg 4-22 TABLET BY ity of tablet 00:00: MOUTH TWO [place] TIMES Medical DAILY Branch TOPIRAMATE 2020-0 Yes [id number] TAKE 1 [facility] 25 mg 4-22 TABLET BY ity of tablet 00:00: MOUTH TWO [place] TIMES Medical DAILY Branch TOPIRAMATE 2020-0 Yes [id number] TAKE 1 [facility] 25 mg 4-22 TABLET BY ity of tablet 00:00: MOUTH TWO [place] TIMES Medical DAILY Branch TOPIRAMATE 2020-0 Yes [id number] TAKE 1 [facility] 25 mg 4-22 TABLET BY ity of tablet 00:00: MOUTH TWO [place] TIMES Medical DAILY Branch TOPIRAMATE 2020-0 Yes [id number] TAKE 1 [facility] 25 mg 4-22 TABLET BY ity of tablet 00:00: MOUTH TWO [place] TIMES Medical DAILY Branch clonazePAM 2020-0 Yes [id number] .5mg Take 1 U nivers 0.5 mg 3-17 tablet by ity of tablet 00:00: mouth at [place] [address] bedtime. Medical Branch clonazePAM 2020-0 Yes [id number] .5mg Take 1 U nivers 0.5 mg 3-17 tablet by ity of tablet 00:00: mouth at [place] [address] bedtime. Medical Branch clonazePAM 2020-0 Yes [id number] .5mg Take 1 U nivers 0.5 mg 3-17 tablet by ity of tablet 00:00: mouth at [place] [address] bedtime. Medical Branch clonazePAM 2020-0 Yes [id number] .5mg Take 1 U nivers 0.5 mg 3-17 tablet by ity of tablet 00:00: mouth at [place] [address] bedtime. Medical Branch clonazePAM 2020-0 Yes [id number] .5mg Take 1 U nivers 0.5 mg 3-17 tablet by ity of tablet 00:00: mouth at [place] [address] bedtime. Medical Branch clonazePAM 2020-0 Yes [id number] .5mg Take 1 U nivers 0.5 mg 3-17 tablet by ity of tablet 00:00: mouth at [place] [address] bedtime. Medical Branch clonazePAM 2020-0 Yes [id number] .5mg Take 1 U nivers 0.5 mg 3-17 tablet by ity of tablet 00:00: mouth at [place] [address] bedtime. Medical Branch clonazePAM 2020-0 Yes [id number] .5mg Take 1 U nivers 0.5 mg 3-17 tablet by ity of tablet 00:00: mouth at [place] [address] bedtime. Medical Branch clonazePAM 2020-0 Yes [id number] .5mg Take 1 U nivers 0.5 mg 3-17 tablet by ity of tablet 00:00: mouth at [place] [address] bedtime. Medical Branch clonazePAM 2020-0 Yes [id number] .5mg Take 1 U nivers 0.5 mg 3-17 tablet by ity of tablet 00:00: mouth at [place] [address] bedtime. Medical Branch clonazePAM 2020-0 Yes [id number] .5mg Take 1 U nivers 0.5 mg 3-17 tablet by ity of tablet 00:00: mouth at [place] [address] bedtime. Medical Branch clonazePAM 2020-0 Yes [id number] .5mg Take 1 U nivers 0.5 mg 3-17 tablet by ity of tablet 00:00: mouth at [place] [address] bedtime. Medical Branch clonazePAM 2020-0 Yes [id number] .5mg Take 1 U nivers 0.5 mg 3-17 tablet by ity of tablet 00:00: mouth at [place] [address] bedtime. Medical Branch clonazePAM 2020-0 Yes [id number] .5mg Take 1 U nivers 0.5 mg 3-17 tablet by ity of tablet 00:00: mouth at [place] [address] bedtime. Medical Branch clonazePAM 2020-0 Yes [id number] .5mg Take 1 U nivers 0.5 mg 3-17 tablet by ity of tablet 00:00: mouth at [place] [address] bedtime. Medical Branch clonazePAM 2020-0 Yes [id number] .5mg Take 1 U nivers 0.5 mg 3-17 tablet by ity of tablet 00:00: mouth at [place] [address] bedtime. Medical Branch clonazePAM 2020-0 Yes [id number] .5mg Take 1 U nivers 0.5 mg 3-17 tablet by ity of tablet 00:00: mouth at [place] [address] bedtime. Medical Branch clonazePAM 2020-0 Yes [id number] .5mg Take 1 U nivers 0.5 mg 3-17 tablet by ity of tablet 00:00: mouth at [place] [address] bedtime. Medical Branch clonazePAM 2020-0 Yes [id number] .5mg Take 1 U nivers 0.5 mg 3-17 tablet by ity of tablet 00:00: mouth at [place] [address] bedtime. Medical Branch clonazePAM 2020-0 Yes [id number] .5mg Take 1 U nivers 0.5 mg 3-17 tablet by ity of tablet 00:00: mouth at [place] [address] bedtime. Medical Branch clonazePAM 2020-0 Yes [id number] .5mg Take 1 U nivers 0.5 mg 3-17 tablet by ity of tablet 00:00: mouth at [place] [address] bedtime. Medical Branch clonazePAM 2020-0 Yes [id number] .5mg Take 1 U nivers 0.5 mg 3-17 tablet by ity of tablet 00:00: mouth at [place] [address] bedtime. Medical Branch clonazePAM 2020-0 Yes [id number] .5mg Take 1 U nivers 0.5 mg 3-17 tablet by [facility]y of tablet 00:00: mouth at [place] [address] bedtime. Medical Branch clonazePAM 2020-0 Yes [id number] .5mg Take 1 U nivers 0.5 mg 3-17 tablet by ity of tablet 00:00: mouth at [place] [address] bedtime. Medical Branch clonazePAM 2020-0 Yes [id number] .5mg Take 1 U nivers 0.5 mg 3-17 tablet by ity of tablet 00:00: mouth at [place] [address] bedtime. Medical Branch clonazePAM 2020-0 Yes [id number] .5mg Take 1 U nivers 0.5 mg 3-17 tablet by ity of tablet 00:00: mouth at [place] [address] bedtime. Medical Branch clonazePAM 2020-0 Yes [id number] .5mg Take 1 U nivers 0.5 mg 3-17 tablet by [facility]y of tablet 00:00: mouth at [place] [address] bedtime. Medical Branch clonazePAM 2020-0 Yes [id number] .5mg Take 1 U nivers 0.5 mg 3-17 tablet by ity of tablet 00:00: mouth at [place] [address] bedtime. Medical Branch clonazePAM 2020-0 Yes [id number] .5mg Take 1 U nivers 0.5 mg 3-17 tablet by ity of tablet 00:00: mouth at [place] 00 bedtime. Medical Branch clonazePAM 2020-0 Yes [id number] .5mg Take 1 U nivers 0.5 mg 3-17 tablet by ity of tablet 00:00: mouth at [place] 00 bedtime. [facility] clonazePAM 2020-0 Yes [id number] .5mg Take 1 U nivers 0.5 mg 3-17 tablet by ity of tablet 00:00: mouth at [place] 00 bedtime. [facility] clonazePAM 2020-0 Yes [id number] .5mg Take 1 U nivers 0.5 mg 3-17 tablet by ity of tablet 00:00: mouth at [place] 00 bedtime. [facility] clonazePAM 2020-0 Yes [id number] .5mg Take 1 U nivers 0.5 mg 3-17 tablet by ity of tablet 00:00: mouth at [place] 00 bedtime. [facility] divalproex 2020-0 Yes [id number] 500mg Take 2 [facility] 250 mg 2-24 tablets by [facility] of 24 hr 00:00: mouth at [place] tablet 00 bedtime. [facility] divalproex 2020-0 Yes [id number] 500mg Take 2 [facility] ER 250 mg 2-24 tablets by [facility] of 24 hr 00:00: mouth at [place] tablet 00 bedtime. [facility] divalproex 2020-0 Yes [id number] 500mg Take 2 [facility] ER 250 mg 2-24 tablets by it[facility] of 24 hr 00:00: mouth at [place] tablet 00 bedtime. [facility] divalproex 2020-0 Yes [id number] 500mg Take 2 [facility] ER 250 mg 2-24 tablets by it[facility] of 24 hr 00:00: mouth at [place] tablet 00 bedtime. [facility] divalproex 2020-0 Yes [id number] 500mg Take 2 [facility] ER 250 mg 2-24 tablets by it[facility] of 24 hr 00:00: mouth at [place] tablet 00 bedtime. [facility] divalproex 2020-0 Yes [id number] 500mg Take 2 [facility] ER 250 mg 2-24 tablets by ity of 24 hr 00:00: mouth at [place] tablet 00 bedtime. [facility] MIRTAZAPINE 2020-0 Yes [id number] TAKE 1 [facility] 7.5 mg 2-14 105 TABLET BY ity of tablet 00:00: MOUTH [place] 00 EVERYDAY Medical AT BEDTIME Branch MIRTAZAPINE 2020-0 Yes [id number] TAKE 1 [facility] 7.5 mg 2-14 105 TABLET BY ity of tablet 00:00: [facility] 00 EVERYDAY Medical AT BEDTIME Branch MIRTAZAPINE 2020-0 Yes [id number] TAKE 1 [facility] 7.5 mg 2-14 105 TABLET BY ity of tablet 00:00: [facility] 00 EVERYDAY Medical AT BEDTIME Branch MIRTAZAPINE 2020-0 Yes [id number] TAKE 1 [facility] 7.5 mg 2-14 105 TABLET BY ity of tablet 00:00: [facility] 00 EVERYDAY Medical AT BEDTIME Branch MIRTAZAPINE 2020-0 Yes [id number] TAKE 1 [facility] 7.5 mg 2-14 105 TABLET BY ity of tablet 00:00: [facility] 00 EVERYDAY Medical AT BEDTIME Branch MIRTAZAPINE 2020-0 Yes [id number] TAKE 1 [facility] 7.5 mg 2-14 105 TABLET BY ity of tablet 00:00: [facility] 00 EVERYDAY Medical AT BEDTIME Branch MIRTAZAPINE 2020-0 Yes [id number] TAKE 1 [facility] 7.5 mg 2-14 105 TABLET BY ity of tablet 00:00: [facility] EVERYDAY Medical AT BEDTIME Branch MIRTAZAPINE 2020-0 Yes [id number] TAKE 1 [facility] 7.5 mg 2-14 105 TABLET BY ity of tablet 00:00: [facility] 00 EVERYDAY Medical AT BEDTIME Bud MIRTAZAPINE 2020-0 Yes [id number] TAKE 1 [facility] 7.5 mg 2-14 105 TABLET BY ity of tablet 00:00: [facility] EVERYDAY Medical AT BEDTIME Branch MIRTAZAPINE 2020-0 Yes [id number] TAKE 1 [facility] 7.5 mg 2-14 105 TABLET BY ity of tablet 00:00: [facility] Take by Un [...] tablet 27 Medical Branch mirtazapine 2020-0 Yes [id number] 7.5mg Take 1 [facility] 7.5 mg 1-23 105 tablet by ity of tablet 00:00: mouth at [place] 00 bedtime. [facility] Branch clonazePAM 2020-0 Yes [id number] .5mg Take 1 U nivers 0.5 mg 1-23 tablet by ity of tablet 00:00: mouth at [place] 00 bedtime. Medical Branch paliperidon 2020-0 Yes [id number] TAKE 1 [facility] e 3 mg 24 1-23 TABLET BY ity o f hour tablet 00:00: MOUTH ONCE [place] DAILY Medical Branch mirtazapine 2020-0 Yes [id number] 7.5mg Take 1 [facility] 7.5 mg 1-23 105 tablet by ity of tablet 00:00: mouth at [place] 00 bedtime. [facility] clonazePAM 2020-0 Yes [id number] .5mg Take 1 [facility] nivers 0.5 mg 1-23 tablet by ity of tablet 00:00: mouth at [place] [address] bedtime. Medical Branch paliperidon 2020-0 Yes [id number] TAKE 1 [facility] e 3 mg 24 1-23 TABLET BY ity o f hour tablet 00:00: MOUTH ONCE [place] DAILY Medical Branch mirtazapine 2020-0 Yes [id number] 7.5mg Take 1 [facility] 7.5 mg 1-23 105 tablet by ity of tablet 00:00: mouth at [place] [address] bedtime. Medical Branch clonazePAM 2020-0 Yes [id number] .5mg Take 1 [facility] nivers 0.5 mg 1-23 tablet by ity of tablet 00:00: mouth at [place] [address] bedtime. Medical Branch paliperidon 2020-0 Yes [id number] TAKE 1 [facility] e 3 mg 24 1-23 TABLET BY ity o f hour tablet 00:00: MOUTH ONCE [place] DAILY Medical Branch mirtazapine 2020-0 Yes [id number] 7.5mg Take 1 [facility] 7.5 mg 1-23 105 tablet by ity of tablet 00:00: mouth at [place] [address] bedtime. Medical Branch clonazePAM 2020-0 Yes [id number] .5mg Take 1 [facility] nivers 0.5 mg 1-23 tablet by ity of tablet 00:00: mouth at [place] [address] bedtime. Medical Branch paliperidon 2020-0 Yes [id number] TAKE 1 [facility] e 3 mg 24 1-23 TABLET BY ity o f hour tablet 00:00: MOUTH ONCE [place] DAILY Medical Branch clonazePAM 2020-0 Yes [id number] .5mg Take 1 [facility] nivers 0.5 mg 1-23 tablet by ity of tablet 00:00: mouth at [place] 00 bedtime. Medical Branch paliperidon 2019-0 Yes [id number] TAKE 1 [facility] e 3 mg 24 1-23 TABLET BY ity o f hour tablet 00:00: MOUTH ONCE DAILY Medical Branch clonazePAM 2019-0 Yes [id number] .5mg Take 1 [facility] nivers 0.5 mg 1-23 tablet by ity of tablet 00:00: mouth at [place] 00 bedtime. Medical Branch paliperidon 2019-0 Yes [id number] TAKE 1 [facility] e 3 mg 24 1-23 TABLET BY ity o f hour tablet 00:00: MOUTH ONCE DAILY Medical Branch paliperidon 2019-0 Yes [id number] TAKE 1 [facility] e 3 mg 24 1-23 TABLET BY ity o f hour tablet 00:00: MOUTH ONCE DAILY Medical Branch paliperidon 2019-0 Yes [id number] TAKE 1 [facility] e 3 mg 24 1-23 TABLET BY ity o f hour tablet 00:00: MOUTH ONCE DAILY Medical Branch paliperidon 2019-0 Yes [id number] TAKE 1 [facility] e 3 mg 24 1-23 TABLET BY ity o f hour tablet 00:00: MOUTH ONCE DAILY Medical Branch paliperidon 2019-0 Yes [id number] TAKE 1 [facility] e 3 mg 24 1-23 TABLET BY ity o f hour tablet 00:00: MOUTH ONCE DAILY Medical Branch paliperidon 2019-0 Yes [id number] TAKE 1 [facility] e 3 mg 24 1-23 TABLET BY ity o f hour tablet 00:00: MOUTH ONCE DAILY Medical Branch paliperidon 2019-0 Yes [id number] TAKE 1 [facility] e 3 mg 24 1-23 TABLET BY ity o f hour tablet 00:00: MOUTH ONCE DAILY Medical Branch propranolol 2018-05 Yes [id number] 10mg Take 1 [facility] 10 mg 1-22 tablet by ity of tablet 00:00: mouth 2 (two) Medical times Branch daily as needed (tremor). propranolol 2018-05 Yes [id number] 10mg Take 1 [facility] 10 mg 1-22 tablet by ity of tablet 00:00: mouth 2 (two) Medical times [place] daily as needed (tremor). propranolol 2018-05 Yes [id number] 10mg Take 1 [facility] 10 mg 1-22 tablet by ity of tablet 00:00: mouth 2 00 (two) Medical times Branch daily as needed (tremor). propranolol 2018-05 Yes [id number] 10mg Take 1 [facility] 10 mg 1-22 tablet by ity of tablet 00:00: mouth 2 00 (two) Medical times Branch daily as needed (tremor). propranolol 2018-05 Yes [id number] 10mg Take 1 [facility] 10 mg 1-22 tablet by ity of tablet 00:00: mouth 2 00 (two) Medical times Branch daily as needed (tremor). propranolol 2018-05 Yes [id number] 10mg Take 1 [facility] 10 mg 1-22 tablet by ity of tablet 00:00: mouth 2 00 (two) Medical times Branch daily as needed (tremor). propranolol 2018-05 Yes [id number] 10mg Take 1 [facility] 10 mg 1-22 tablet by ity of tablet 00:00: mouth 2 00 (two) Medical times Branch daily as needed (tremor). propranolol 2018-05 Yes [id number] 10mg Take 1 [facility] 10 mg 1-22 tablet by ity of tablet 00:00: mouth 2 (two) Medical times Branch daily as needed (tremor). propranolol 2018-05 Yes [id number] 10mg Take 1 [facility] 10 mg 1-22 tablet by ity of tablet 00:00: mouth 2 00 (two) Medical times Branch daily as needed (tremor). propranolol 2018-05 Yes [id number] 10mg Take 1 [facility] 10 mg 1-22 tablet by ity of tablet 00:00: mouth 2 00 (two) Medical times Branch daily as needed (tremor). propranolol 2018-05 Yes [id number] 10mg Take 1 [facility] 10 mg 1-22 tablet by ity of tablet 00:00: mouth 2 00 (two) Medical times Branch daily as needed (tremor). propranolol 2018-05 Yes [id number] 10mg Take 1 [facility] 10 mg 1-22 tablet by ity of tablet 00:00: mouth 2 00 (two) Medical times Branch daily as needed (tremor). propranolol 2018-05 Yes [id number] 10mg Take 1 [facility] 10 mg 1-22 tablet by ity of tablet 00:00: mouth 2 00 (two) Medical times Branch daily as needed (tremor). propranolol 2018-05 Yes [id number] 10mg Take 1 [facility] 10 mg 1-22 tablet by ity of tablet 00:00: mouth 2 [place] 00 (two) Medical times Branch daily as needed (tremor). propranolol 2018-05 Yes [id number] 10mg Take 1 [facility] 10 mg 1-22 tablet by ity of tablet 00:00: mouth 2 [place] 00 (two) Medical times Branch daily as needed (tremor). propranolol 2018-05 Yes [id number] 10mg Take 1 [facility] 10 mg 1-22 tablet by ity of tablet 00:00: mouth 2 [place] 00 (two) Medical times Branch daily as needed (tremor). propranolol 2018-05 Yes [id number] 10mg Take 1 [facility] 10 mg 1-22 tablet by ity of tablet 00:00: mouth 2 00 (two) Medical times Branch daily as needed (tremor). propranolol 2018-05 Yes [id number] 10mg Take 1 [facility] 10 mg 1-22 tablet by ity of tablet 00:00: mouth 2 00 (two) Medical times Branch daily as needed (tremor). propranolol 2018-05 Yes [id number] 10mg Take 1 [facility] 10 mg 1-22 tablet by ity of tablet 00:00: mouth 2 00 (two) Medical times Branch daily as needed (tremor). propranolol 2018-05 Yes [id number] 10mg Take 1 [facility] 10 mg 1-22 tablet by ity of tablet 00:00: mouth 2 00 (two) Medical times Branch daily as needed (tremor). propranolol 2018-05 Yes [id number] 10mg Take 1 [facility] 10 mg 0-25 tablet by ity of tablet 00:00: mouth [place] 00 daily. Medical Branch propranolol 2018-05 Yes [id number] 10mg Take 1 [facility] 10 mg 0-25 [...] 15:21: [place] tablet 28 Medical Branch rivaroxaban 2018-0 Yes Take by Un jhonatan (XARELTO) 02-10 mouth. ity of 20 mg 15:21: [place] tablet 28 Medical Branch rivaroxaban Yes Take by Un jhonatan (XARELTO) 02-10 mouth. ity of 20 mg 15:21: [place] tablet 28 Medical Branch divalproex 2018-0 Yes [id number] 500mg Take 2 [facility] ER 250 mg 9-10 tablets by ity of 24 hr 00:00: mouth at [place] tablet 00 bedtime. Medical Branch divalproex Yes [id number] 500mg Take 2 [facility] ER 250 mg 9-10 tablets by ity of 24 hr 00:00: mouth at [place] tablet 00 bedtime. Medical Branch divalproex 2018- Yes [id number] 500mg Take 2 [facility] ER 250 mg 9-10 tablets by ity of 24 hr 00:00: mouth at [place] tablet 00 bedtime. [facility] Branch divalproex Yes [id number] 500mg Take 2 [facility] ER 250 mg 9-10 tablets by ity of 24 hr 00:00: mouth at [place] tablet 00 bedtime. Medical Branch divalproex 0 Yes [id number] 500mg Take 2 [facility] ER 250 mg 9-10 tablets by ity of 24 hr 00:00: mouth at [place] tablet 00 bedtime. [facility] Branch divalproex 0 Yes [id number] 500mg Take 2 [facility] ER 250 mg 9-10 tablets by ity of 24 hr 00:00: mouth at [place] tablet 00 bedtime. [facility] Branch divalproex 0 Yes [id number] 500mg Take 2 [facility] ER 250 mg 9-10 tablets by ity of 24 hr 00:00: mouth at [place] tablet 00 bedtime. [facility] divalproex 2018-0 Yes [id number] 500mg Take 2 [facility] ER 250 mg 9-10 tablets by ity of 24 hr 00:00: mouth at [place] tablet 00 bedtime. [facility] divalproex 2018-0 Yes [id number] 500mg Take 2 [facility] ER 250 mg 9-10 tablets by ity of 24 hr 00:00: mouth at [place] tablet 00 bedtime. [facility] divalproex 2018- Yes [id number] 500mg Take 2 [facility] ER 250 mg 9-10 tablets by ity of 24 hr 00:00: mouth at [place] tablet 00 bedtime. [facility] divalproex 2018- Yes [id number] 500mg Take 2 [facility] ER 250 mg 9-10 tablets by ity of 24 hr 00:00: mouth at [place] tablet 00 bedtime. [facility] divalproex Yes [id number] 500mg Take 2 [facility] ER 250 mg 9-10 tablets by ity of 24 hr 00:00: mouth at [place] tablet 00 bedtime. [facility] divalproex Yes [id number] 500mg Take 2 [facility] ER 250 mg 9-10 tablets by ity of 24 hr 00:00: mouth at [place] tablet 00 bedtime. [facility] divalproex Yes [id number] 500mg Take 2 [facility] ER 250 mg 9-10 tablets by ity of 24 hr 00:00: mouth at [place] tablet 00 bedtime. [facility] divalproex Yes [id number] 500mg Take 2 [facility] ER 250 mg 9-10 tablets by ity of 24 hr 00:00: mouth at [place] tablet 00 bedtime. [facility] divalproex Yes [id number] 500mg Take 2 [facility] ER 250 mg 9-10 tablets by ity of 24 hr 00:00: mouth at [place] tablet 00 bedtime. [facility] divalproex Yes [id number] 500mg Take 2 [facility] ER 250 mg 9-10 tablets by ity of 24 hr 00:00: mouth at [place] tablet 00 bedtime. [facility] Branch divalproex Yes [id number] 500mg Take 2 [facility] ER 250 mg 9-10 tablets by ity of 24 hr 00:00: mouth at [place] tablet 00 bedtime. [facility] divalproex Yes [id number] 500mg Take 2 [facility] ER 250 mg 9-10 tablets by ity of 24 hr 00:00: mouth at [place] tablet 00 bedtime. [facility] Branch divalproex Yes [id number] 500mg Take 2 [facility] ER 250 mg 9-10 tablets by ity of 24 hr 00:00: mouth at [place] tablet 00 bedtime. [facility] divalproex 2018- Yes [id number] 500mg Take 2 [facility] ER 250 mg 9-10 tablets by ity of 24 hr 00:00: mouth at [place] tablet 00 bedtime. Medical Branch TOPIRAMATE 2019-0 Yes [id number] TAKE 1 [facility] 25 mg 8-28 TABLET BY ity of tablet 00:00: MOUTH TWO [place] Medical DAILY Branch TOPIRAMATE 2019-0 Yes [id number] TAKE 1 [facility] 25 mg 8-28 TABLET BY ity of tablet 00:00: MOUTH TWO [place] Medical DAILY Branch TOPIRAMATE 2019-0 Yes [id number] TAKE 1 [facility] 25 mg 8-28 TABLET BY ity of tablet 00:00: MOUTH TWO [place] Medical DAILY Branch TOPIRAMATE 2019-0 Yes [id number] TAKE 1 [facility] 25 mg 8-28 TABLET BY ity of tablet 00:00: MOUTH TWO [place] Medical DAILY Branch TOPIRAMATE 2019-0 Yes [id number] TAKE 1 [facility] 25 mg 8-28 TABLET BY ity of tablet 00:00: MOUTH TWO [place] Medical DAILY Branch TOPIRAMATE 2019-0 Yes [id number] TAKE 1 [facility] 25 mg 8-28 TABLET BY ity of tablet 00:00: MOUTH TWO [place] Medical DAILY Branch TOPIRAMATE 2019-0 Yes [id number] TAKE 1 [facility] 25 mg 8-28 TABLET BY ity of tablet 00:00: MOUTH TWO [place] Medical DAILY Branch TOPIRAMATE 2019-0 Yes [id number] TAKE 1 [facility] 25 mg 8-28 TABLET BY ity of tablet 00:00: [facility] DAILY Branch TOPIRAMATE 2019-0 Yes [id number] TAKE 1 [facility] 25 mg 8-28 TABLET BY ity of tablet 00:00: MOUTH TWO [place] Medical DAILY Branch TOPIRAMATE 2019-0 Yes [id number] TAKE 1 [facility] 25 mg 8-28 TABLET BY ity of tablet 00:00: MOUTH TWO [place] Medical DAILY Branch TOPIRAMATE 2019-0 Yes [id number] TAKE 1 [facility] 25 mg 8-28 TABLET BY ity of tablet 00:00: MOUTH TWO [place] Medical DAILY Branch TOPIRAMATE 2019-0 Yes [id number] TAKE 1 [facility] 25 mg 8-28 TABLET BY ity of tablet 00:00: MOUTH TWO [place] Medical DAILY Branch TOPIRAMATE 2019-0 Yes [id number] TAKE 1 [facility] 25 mg 8-28 TABLET BY ity of tablet 00:00: MOUTH TWO [place] 00 TIMES Medical DAILY Branch TOPIRAMATE Yes [id number] TAKE 1 [facility] 25 mg 8-28 TABLET BY ity of tablet 00:00: MOUTH TWO [place] Medical DAILY Branch TOPIRAMATE Yes [id number] TAKE 1 [facility] 25 mg 8-28 TABLET BY ity of tablet 00:00: MOUTH TWO Medical DAILY Branch TOPIRAMATE Yes [id number] TAKE 1 [facility] 25 mg 8-28 TABLET BY ity of tablet 00:00: MOUTH TWO Medical DAILY Branch TOPIRAMATE Yes [id number] TAKE 1 [facility] 25 mg 8-28 TABLET BY ity of tablet 00:00: MOUTH TWO Medical DAILY Branch TOPIRAMATE 2018- 2020- No [id number] TAKE 1 [facility] 25 mg 8-28 04-22 TABLET BY ity of tablet 00:00: 00:00 MOUTH TWO [place] 00 :00 TIMES Medical DAILY Branch paliperidon Yes [id number] TAKE 1 [facility] e 3 mg 24 8-07 TABLET BY ity o f hour tablet 00:00: MOUTH ONCE DAILY Medical Branch PALIPERIDON Yes [id number] TAKE 1 [facility] E 3 mg 24 8-07 TABLET BY ity o f hour tablet 00:00: MOUTH ONCE DAILY Medical Branch paliperidon Yes [id number] TAKE 1 [facility] e 3 mg 24 8-07 TABLET BY ity o f hour tablet 00:00: MOUTH ONCE DAILY Medical Branch PALIPERIDON Yes [id number] TAKE 1 [facility] E 3 mg 24 8-07 TABLET BY ity o f hour tablet 00:00: MOUTH ONCE DAILY Medical Branch paliperidon Yes [id number] TAKE 1 [facility] e 3 mg 24 8-07 TABLET BY ity o f hour tablet 00:00: MOUTH ONCE DAILY Medical Branch PALIPERIDON 2019 Yes [id number] TAKE 1 [facility] E 3 mg 24 8-07 TABLET BY ity o f hour tablet 00:00: MOUTH ONCE DAILY Medical Branch paliperidon Yes [id number] TAKE 1 [facility] e 3 mg 24 8-07 TABLET BY ity o f hour tablet 00:00: MOUTH ONCE DAILY Medical Branch PALIPERIDON Yes [id number] TAKE 1 [facility] E 3 mg 24 8-07 TABLET BY ity o f hour tablet 00:00: MOUTH ONCE DAILY Medical Branch paliperidon 2019- Yes [id number] TAKE 1 [facility] e 3 mg 24 8-07 TABLET BY ity o f hour tablet 00:00: MOUTH ONCE DAILY Medical Branch PALIPERIDON 2019- Yes [id number] TAKE 1 [facility] E 3 mg 24 8-07 TABLET BY ity o f hour tablet 00:00: MOUTH ONCE DAILY Medical Branch paliperidon 2019 Yes [id number] TAKE 1 [facility] e 3 mg 24 8-07 TABLET BY ity o f hour tablet 00:00: MOUTH ONCE DAILY Medical Branch PALIPERIDON 2019 Yes [id number] TAKE 1 [facility] E 3 mg 24 8-07 TABLET BY ity o f hour tablet 00:00: MOUTH ONCE DAILY Medical Branch paliperidon 2019- Yes [id number] TAKE 1 [facility] e 3 mg 24 8-07 TABLET BY ity o f hour tablet 00:00: MOUTH ONCE DAILY Medical Branch PALIPERIDON 2019 Yes [id number] TAKE 1 [facility] E 3 mg 24 8-07 TABLET BY ity o f hour tablet 00:00: MOUTH ONCE DAILY Medical Branch paliperidon 2019- Yes [id number] TAKE 1 [facility] e 3 mg 24 8-07 TABLET BY ity o f hour tablet 00:00: MOUTH ONCE DAILY Medical Branch PALIPERIDON 2019- Yes [id number] TAKE 1 [facility] E 3 mg 24 8-07 TABLET BY ity o f hour tablet 00:00: MOUTH ONCE DAILY Medical Branch paliperidon 2019 Yes [id number] TAKE 1 [facility] e 3 mg 24 8-07 TABLET BY ity o f hour tablet 00:00: MOUTH ONCE DAILY Medical Branch PALIPERIDON 2019 Yes [id number] TAKE 1 [facility] E 3 mg 24 8-07 TABLET BY ity o f hour tablet 00:00: MOUTH ONCE DAILY Medical Branch paliperidon 2019- Yes [id number] TAKE 1 [facility] e 3 mg 24 8-07 TABLET BY ity o f hour tablet 00:00: MOUTH ONCE DAILY Medical Branch PALIPERIDON 2019 Yes [id number] TAKE 1 [facility] E 3 mg 24 8-07 TABLET BY ity o f hour tablet 00:00: MOUTH ONCE DAILY Medical Branch paliperidon 2019 Yes [id number] TAKE 1 [facility] e 3 mg 24 8-07 TABLET BY ity o f hour tablet 00:00: MOUTH ONCE DAILY Medical Branch PALIPERIDON Yes [id number] TAKE 1 [facility] E 3 mg 24 8-07 TABLET BY ity o f hour tablet 00:00: MOUTH ONCE DAILY Medical Branch paliperidon Yes [id number] TAKE 1 [facility] e 3 mg 24 8-07 TABLET BY ity o f hour tablet 00:00: MOUTH ONCE DAILY Medical Branch PALIPERIDON Yes [id number] TAKE 1 [facility] E 3 mg 24 8-07 TABLET BY ity o f hour tablet 00:00: MOUTH ONCE DAILY Medical Branch paliperidon Yes [id number] TAKE 1 [facility] e 3 mg 24 8-07 TABLET BY ity o f hour tablet 00:00: MOUTH ONCE DAILY Medical Branch paliperidon Yes [id number] TAKE 1 [facility] e 3 mg 24 8-07 TABLET BY ity o f hour tablet 00:00: MOUTH ONCE DAILY Medical Branch paliperidon Yes [id number] TAKE 1 [facility] e 3 mg 24 8-07 TABLET BY ity o f hour tablet 00:00: MOUTH ONCE DAILY Medical Branch paliperidon Yes [id number] TAKE 1 [facility] e 3 mg 24 8-07 TABLET BY ity o f hour tablet 00:00: MOUTH ONCE DAILY Medical Branch PALIPERIDON Yes [id number] TAKE 1 [facility] E 3 mg 24 8-07 TABLET BY ity o f hour tablet 00:00: MOUTH ONCE DAILY Medical Branch clonazePAM Yes [id number] .5mg Take 2 [facility] 0.25 mg 7-26 105 tablets by ity of disintegrat 00:00: mouth at [place] tablet 00 bedtime. Medic al Branch clonazePAM Yes [id number] .5mg Take 2 [facility] 0.25 mg 7-26 105 tablets by ity of disintegrat 00:00: mouth at [place] tablet 00 bedtime. Medic al Branch clonazePAM Yes [id number] .5mg Take 2 [facility] 0.25 mg 7-26 105 tablets by ity of disintegrat 00:00: mouth at [place] tablet 00 bedtime. Medic al Branch clonazePAM 2019-0 Yes [id number] .5mg Take 2 [facility] 0.25 mg 7-26 105 tablets by ity of disintegrat 00:00: mouth at [place] tablet 00 bedtime. [facility] Branch clonazePAM 2019-0 Yes [id number] .5mg Take 2 [facility] 0.25 mg 7-26 105 tablets by ity of disintegrat 00:00: mouth at [place] tablet 00 bedtime. [facility] Branch clonazePAM 2019-0 Yes [id number] .5mg Take 2 [facility] 0.25 mg 7-26 105 tablets by ity of disintegrat 00:00: mouth at [place] tablet 00 bedtime. [facility] Branch clonazePAM 2018-0 Yes [id number] .5mg Take 2 [facility] 0.25 mg 7-26 105 tablets by ity of disintegrat 00:00: mouth at [place] tablet 00 bedtime. [facility] Branch clonazePAM 2018-0 Yes [id number] .5mg Take 2 [facility] 0.25 mg 7-26 105 tablets by ity of disintegrat 00:00: mouth at [place] tablet 00 bedtime. [facility] Branch clonazePAM 2018-0 Yes [id number] .5mg Take 2 [facility] 0.25 mg 7-26 105 tablets by ity of disintegrat 00:00: mouth at [place] tablet 00 bedtime. [facility] Branch clonazePAM 2018-0 Yes [id number] .5mg Take 2 [facility] 0.25 mg 7-26 105 tablets by ity of disintegrat 00:00: mouth at [place] tablet 00 bedtime. [facility] Branch clonazePAM 2019-0 Yes [id number] .5mg Take 2 [facility] 0.25 mg 7-26 105 tablets by ity of disintegrat 00:00: mouth at [place] tablet 00 bedtime. [facility] Branch clonazePAM 2019-0 Yes [id number] .5mg Take 2 [facility] 0.25 mg 7-26 105 tablets by ity of disintegrat 00:00: mouth at [place] tablet 00 bedtime. [facility] Branch clonazePAM 2019-0 Yes [id number] .5mg Take 2 [facility] 0.25 mg 7-26 105 tablets by ity of disintegrat 00:00: mouth at [place] tablet 00 bedtime. [facility] Branch clonazePAM 2019-0 Yes [id number] .5mg Take 2 [facility] 0.25 mg 7-26 105 tablets by ity of disintegrat 00:00: mouth at [place] tablet 00 bedtime. Medic al Branch clonazePAM 2019-0 Yes [id number] .5mg Take 2 [facility] 0.25 mg 7-26 105 tablets by ity of disintegrat 00:00: mouth at [place] tablet 00 bedtime. Medic al Branch clonazePAM 2019-0 Yes [id number] .5mg Take 2 [facility] 0.25 mg 7-26 105 tablets by ity of disintegrat 00:00: mouth at [place] tablet 00 bedtime. [facility] Branch spironolact 2019-0 Yes Univer s one 25 mg 4-11 ity of tablet 00:00: [place] [address] Medical Branch spironolact 2019-0 Yes Univer s one 25 mg 4-11 ity of tablet 00:00: [place] [address] Medical Bud spironolact 2019-0 Yes Univer s one 25 mg 4-11 ity of tablet 00:00: [place] [address] Medical Branch spironolact 2019-0 Yes Univer s one 25 mg 4-11 ity of tablet 00:00: [place] [address] Medical Bud spironolact 2019-0 Yes Univer s one 25 mg 4-11 ity of tablet 00:00: [place] [address] Medical Bud spironolact 2019-0 Yes Univer s one 25 mg 4-11 ity of tablet 00:00: [place] [address] Medical Bud spironolact 2019-0 Yes Univer s one 25 mg 4-11 ity of tablet 00:00: [place] [address] Medical Branch spironolact 2019-0 Yes Univer s one 25 mg 4-11 ity of tablet 00:00: [place] [address] Medical Branch spironolact 2019-0 Yes Univer s one 25 mg 4-11 ity of tablet 00:00: [place] [address] Medical Branch spironolact 2019-0 Yes Univer s one 25 mg 4-11 ity of tablet 00:00: [place] [address] Medical Bud spironolact 2019-0 Yes Univer s one 25 mg 4-11 ity of tablet 00:00: [place] [address] Medical Bud spironolact 2019-0 Yes Univer s one 25 mg 4-11 ity of tablet 00:00: [place] [address] Medical Bud spironolact 2019-0 Yes Univer s one 25 mg 4-11 ity of tablet 00:00: [place] 00 Medical Branch spironolact 2019-0 Yes Univer s one 25 mg 4-11 ity of tablet 00:00: [place] 00 Medical Branch spironolact 2019-0 Yes Univer s one 25 mg 4-11 ity of tablet 00:00: [place] 00 Medical Branch spironolact 2019-0 Yes Univer s one 25 mg 4-11 ity of tablet 00:00: [place] 00 Medical Branch spironolact 2019-0 Yes Univer s one 25 mg 4-11 ity of tablet 00:00: [place] 00 Medical Branch spironolact 2019-0 Yes Univer s one 25 mg 4-11 ity of tablet 00:00: [place] [address] Medical Branch spironolact 2019-0 Yes Univer s one 25 mg 4-11 ity of tablet 00:00: [place] [address] Medical Branch spironolact 2019-0 Yes Univer s one 25 mg 4-11 ity of tablet 00:00: [place] [address] Medical Branch spironolact 2019-0 Yes Univer s one 25 mg 4-11 ity of tablet 00:00: [place] 00 Medical Branch spironolact 2019-0 Yes Univer s one 25 mg 4-11 ity of tablet 00:00: [place] [address] Medical Branch spironolact 2019-0 Yes Univer s one 25 mg 4-11 ity of tablet 00:00: [place] 00 Medical Branch spironolact 2019-0 Yes Univer s one 25 mg 4-11 ity of tablet 00:00: [place] 00 Medical Branch spironolact 2019-0 Yes Univer s one 25 mg 4-11 ity of tablet 00:00: [place] [facility] spironolact 2019-0 Yes Univer s one 25 mg 4-11 ity of tablet 00:00: [place] [facility] spironolact 2019-0 Yes Univer s one 25 mg 4-11 ity of tablet 00:00: [place] [facility] spironolact 2019-0 Yes Univer s one 25 mg 4-11 ity of tablet 00:00: [place] [facility] spironolact 2019-0 Yes Univer s one 25 mg 4-11 ity of tablet 00:00: [place] [facility] spironolact 2019-0 Yes Univer s one 25 mg 4-11 ity of tablet 00:00: [place] [facility] spironolact 2019-0 Yes Univer s one 25 mg 4-11 ity of tablet 00:00: [place] [facility] spironolact 2019-0 Yes Univer s one 25 mg 4-11 ity of tablet 00:00: [place] [facility] spironolact 2019-0 Yes Univer s one 25 mg 4-11 ity of tablet 00:00: [place] [facility] spironolact 2019-0 Yes Univer s one 25 mg 4-11 ity of tablet 00:00: [place] [address] [facility] spironolact 2019-0 Yes Univer s one 25 mg 4-11 ity of tablet 00:00: [place] [address] [facility] spironolact 2019-0 Yes Univer s one 25 mg 4-11 ity of tablet 00:00: [place] [address] [facility] spironolact 2019-0 Yes Univer s one 25 mg 4-11 ity of tablet 00:00: [place] [address] [facility] spironolact 2019-0 Yes Univer s one 25 mg 4-11 ity of tablet 00:00: [place] [address] [facility] spironolact 2019-0 Yes Univer s one 25 mg 4-11 ity of tablet 00:00: [place] [address] [facility] spironolact 2019-0 Yes Univer s one 25 mg 4-11 ity of tablet 00:00: [place] [address] [facility] spironolact 2019-0 Yes Univer s one 25 mg 4-11 ity of tablet 00:00: [place] [address] [facility] spironolact 2019-0 Yes Univer s one 25 mg 4-11 ity of tablet 00:00: [place] [facility] spironolact 2019-0 Yes Univer s one 25 mg 4-11 ity of tablet 00:00: [place] [address] [facility] spironolact 2019-0 Yes Univer s one 25 mg 4-11 ity of tablet 00:00: [place] [address] [facility] spironolact 2019-0 Yes Univer s one 25 mg 4-11 ity of tablet 00:00: [place] [address] [facility] spironolact 2019-0 Yes Univer s one 25 mg 4-11 ity of tablet 00:00: [place] [address] [facility] spironolact 2019-0 Yes Univer s one 25 mg 4-11 ity of tablet 00:00: [place] [facility] spironolact 2019-0 Yes Univer s one 25 mg 4-11 ity of tablet 00:00: [place] [facility] spironolact 2019-0 Yes Univer s one 25 mg 4-11 ity of tablet 00:00: [place] [facility] spironolact 2019-0 Yes Univer s one 25 mg 4-11 ity of tablet 00:00: [place] [facility] spironolact 2019-0 Yes Univer s one 25 mg 4-11 ity of tablet 00:00: [place] [facility] spironolact 2019-0 Yes Univer s one 25 mg 4-11 ity of tablet 00:00: [place] [address] [facility] spironolact 2019-0 Yes Univer s one 25 mg 4-11 ity of tablet 00:00: [place] [address] [facility] spironolact 2019-0 Yes Univer s one 25 mg 4-11 ity of tablet 00:00: [place] [address] [facility] spironolact 2019-0 Yes Univer s one 25 mg 4-11 ity of tablet 00:00: [place] [address] [facility] spironolact 2019-0 Yes Univer s one 25 mg 4-11 ity of tablet 00:00: [place] [address] [facility] spironolact 2019-0 Yes Univer s one 25 mg 4-11 ity of tablet 00:00: [place] [address] [facility] spironolact 2019-0 Yes Univer s one 25 mg 4-11 ity of tablet 00:00: [place] [address] [facility] spironolact 2019-0 Yes Univer s one 25 mg 4-11 ity of tablet 00:00: [place] [facility] spironolact 2019-0 Yes Univer s one 25 mg 4-11 ity of tablet 00:00: [place] 00 [facility] spironolact 2019-0 Yes Univer s one 25 mg 4-11 ity of tablet 00:00: [place] [address] [facility] spironolact 2019-0 Yes Univer s one 25 mg 4-11 ity of tablet 00:00: [place] [facility] spironolact 2019-0 Yes Univer s one 25 mg 4-11 ity of tablet 00:00: [place] [address] [facility] spironolact 2019-0 Yes Univer s one 25 mg 4-11 ity of tablet 00:00: [place] [facility] spironolact 2019-0 Yes Univer s one 25 mg 4-11 ity of tablet 00:00: [place] [facility] spironolact 2019-0 Yes Univer s one 25 mg 4-11 ity of tablet 00:00: [place] [facility] spironolact 2019-0 Yes Univer s one 25 mg 4-11 ity of tablet 00:00: [place] [address] [facility] spironolact 2019-0 Yes Univer s one 25 mg 4-11 ity of tablet 00:00: [place] 00 [facility] spironolact 2019-0 Yes Univer s one 25 mg 4-11 ity of tablet 00:00: [place] [address] [facility] spironolact 2019-0 Yes Univer s one 25 mg 4-11 ity of tablet 00:00: [place] [address] [facility] spironolact 2019-0 Yes Univer s one 25 mg 4-11 ity of tablet 00:00: [place] [address] [facility] spironolact 2019-0 Yes Univer s one 25 mg 4-11 ity of tablet 00:00: [place] [facility] spironolact 2019-0 Yes Univer s one 25 mg 4-11 ity of tablet 00:00: [place] [address] [facility] spironolact 2019-0 Yes Univer s one 25 mg 4-11 ity of tablet 00:00: [place] [address] [facility] spironolact 2019-0 Yes Univer s one 25 mg 4-11 ity of tablet 00:00: [place] [address] [facility] spironolact 2019-0 Yes Univer s one 25 mg 4-11 ity of tablet 00:00: [place] [facility] spironolact 2019-0 Yes Univer s one 25 mg 4-11 ity of tablet 00:00: [place] [facility] spironolact 2019-0 Yes Univer s one 25 mg 4-11 ity of tablet 00:00: [place] [address] [facility] spironolact 2019-0 Yes Univer s one 25 mg 4-11 ity of tablet 00:00: [place] [address] [facility] spironolact 2019-0 Yes Univer s one 25 mg 4-11 ity of tablet 00:00: [place] [address] [facility] tamsulosin 2019-0 Yes Univers 0.4 mg 24 4-09 ity of hr capsule 00:00: [place] 00 [facility] tamsulosin 2019-0 Yes Univers 0.4 mg 24 4-09 ity of hr capsule 00:00: [place] [facility] tamsulosin 2019-0 Yes Univers 0.4 mg 24 4-09 ity of hr capsule 00:00: [place] [facility] tamsulosin 2019-0 Yes Univers 0.4 mg 24 4-09 ity of hr capsule 00:00: [place] [facility] tamsulosin 2019-0 Yes Univers 0.4 mg 24 4-09 ity of hr capsule 00:00: [place] [facility] tamsulosin 2019-0 Yes Univers 0.4 mg 24 4-09 ity of hr capsule 00:00: [place] [facility] tamsulosin 2019-0 Yes Univers 0.4 mg 24 4-09 ity of hr capsule 00:00: [place] [facility] tamsulosin 2019-0 Yes Univers 0.4 mg 24 4-09 ity of hr capsule 00:00: [place] [facility] tamsulosin 2019-0 Yes Univers 0.4 mg 24 4-09 ity of hr capsule 00:00: [place] [facility] tamsulosin 2019-0 Yes Univers 0.4 mg 24 4-09 ity of hr capsule 00:00: [place] [facility] tamsulosin 2019-0 Yes Univers 0.4 mg 24 4-09 ity of hr capsule 00:00: [place] [facility] tamsulosin 2019-0 Yes Univers 0.4 mg 24 4-09 ity of hr capsule 00:00: [place] [facility] tamsulosin 2019-0 Yes Univers 0.4 mg 24 4-09 ity of hr capsule 00:00: [place] [facility] tamsulosin 2019-0 Yes Univers 0.4 mg 24 4-09 ity of hr capsule 00:00: [place] [facility] tamsulosin 2019-0 Yes Univers 0.4 mg 24 4-09 ity of hr capsule 00:00: [place] [facility] tamsulosin 2019-0 Yes Univers 0.4 mg 24 4-09 ity of hr capsule 00:00: [place] [facility] tamsulosin 2019-0 Yes Univers 0.4 mg 24 4-09 ity of hr capsule 00:00: [place] [facility] tamsulosin 2019-0 Yes Univers 0.4 mg 24 4-09 ity of hr capsule 00:00: [place] [facility] tamsulosin 2019-0 Yes Univers 0.4 mg 24 4-09 ity of hr capsule 00:00: [place] [facility] tamsulosin 2019-0 Yes Univers 0.4 mg 24 4-09 ity of hr capsule 00:00: [place] [facility] tamsulosin 2019-0 Yes Univers 0.4 mg 24 4-09 ity of hr capsule 00:00: [place] [facility] tamsulosin 2019-0 Yes Univers 0.4 mg 24 4-09 ity of hr capsule 00:00: [place] [facility] tamsulosin 2019-0 Yes Univers 0.4 mg 24 4-09 ity of hr capsule 00:00: [place] [facility] tamsulosin 2019-0 Yes Univers 0.4 mg 24 4-09 ity of hr capsule 00:00: [place] [facility] tamsulosin 2019-0 Yes Univers 0.4 mg 24 4-09 ity of hr capsule 00:00: [place] [facility] tamsulosin 2019-0 Yes Univers 0.4 mg 24 4-09 ity of hr capsule 00:00: [place] [facility] tamsulosin 2019-0 Yes Univers 0.4 mg 24 4-09 ity of hr capsule 00:00: [place] [facility] tamsulosin 2019-0 Yes Univers 0.4 mg 24 4-09 ity of hr capsule 00:00: [place] [facility] tamsulosin 2019-0 Yes Univers 0.4 mg 24 4-09 ity of hr capsule 00:00: [place] [facility] tamsulosin 2019-0 Yes Univers 0.4 mg 24 4-09 ity of hr capsule 00:00: [place] [facility] tamsulosin 2019-0 Yes Univers 0.4 mg 24 4-09 ity of hr capsule 00:00: [place] [facility] tamsulosin 2019-0 Yes Univers 0.4 mg 24 4-09 ity of hr capsule 00:00: [place] [facility] tamsulosin 2019-0 Yes Univers 0.4 mg 24 4-09 ity of hr capsule 00:00: [place] [facility] tamsulosin 2019-0 Yes Univers 0.4 mg 24 4-09 ity of hr capsule 00:00: [place] [facility] tamsulosin 2019-0 Yes Univers 0.4 mg 24 4-09 ity of hr capsule 00:00: [place] [facility] tamsulosin 2019-0 Yes Univers 0.4 mg 24 4-09 ity of hr capsule 00:00: [place] [facility] tamsulosin 2019-0 Yes Univers 0.4 mg 24 4-09 ity of hr capsule 00:00: [place] [facility] tamsulosin 2019-0 Yes Univers 0.4 mg 24 4-09 ity of hr capsule 00:00: [place] [facility] tamsulosin 2019-0 Yes Univers 0.4 mg 24 4-09 ity of hr capsule 00:00: [place] [facility] tamsulosin 2019-0 Yes Univers 0.4 mg 24 4-09 ity of hr capsule 00:00: [place] [facility] tamsulosin 2019-0 Yes Univers 0.4 mg 24 4-09 ity of hr capsule 00:00: [place] [facility] tamsulosin 2019-0 Yes Univers 0.4 mg 24 4-09 ity of hr capsule 00:00: [place] [facility] tamsulosin 2019-0 Yes Univers 0.4 mg 24 4-09 ity of hr capsule 00:00: [place] [facility] tamsulosin 2019-0 Yes Univers 0.4 mg 24 4-09 ity of hr capsule 00:00: [place] [facility] tamsulosin 2019-0 Yes Univers 0.4 mg 24 4-09 ity of hr capsule 00:00: [place] [facility] tamsulosin 2019-0 Yes Univers 0.4 mg 24 4-09 ity of hr capsule 00:00: [place] [facility] tamsulosin 2019-0 Yes Univers 0.4 mg 24 4-09 ity of hr capsule 00:00: [place] [facility] tamsulosin 2019-0 Yes Univers 0.4 mg 24 4-09 ity of hr capsule 00:00: [place] [facility] tamsulosin 2019-0 Yes Univers 0.4 mg 24 4-09 ity of hr capsule 00:00: [place] [facility] tamsulosin 2019-0 Yes Univers 0.4 mg 24 4-09 ity of hr capsule 00:00: [place] [facility] tamsulosin 2019-0 Yes Univers 0.4 mg 24 4-09 ity of hr capsule 00:00: [place] [facility] tamsulosin 2019-0 Yes Univers 0.4 mg 24 4-09 ity of hr capsule 00:00: [place] [facility] tamsulosin 2019-0 Yes Univers 0.4 mg 24 4-09 ity of hr capsule 00:00: [place] [facility] tamsulosin 2019-0 Yes Univers 0.4 mg 24 4-09 ity of hr capsule 00:00: [place] [facility] tamsulosin 2019-0 Yes Univers 0.4 mg 24 4-09 ity of hr capsule 00:00: [place] [facility] tamsulosin 2019-0 Yes Univers 0.4 mg 24 4-09 ity of hr capsule 00:00: [place] [facility] tamsulosin 2019-0 Yes Univers 0.4 mg 24 4-09 ity of hr capsule 00:00: [place] [facility] tamsulosin 2019-0 Yes Univers 0.4 mg 24 4-09 ity of hr capsule 00:00: [place] [facility] tamsulosin 2019-0 Yes Univers 0.4 mg 24 4-09 ity of hr capsule 00:00: [place] [facility] tamsulosin 2019-0 Yes Univers 0.4 mg 24 4-09 ity of hr capsule 00:00: [place] [facility] tamsulosin 2019-0 Yes Univers 0.4 mg 24 4-09 ity of hr capsule 00:00: [place] [facility] tamsulosin 2019-0 Yes Univers 0.4 mg 24 4-09 ity of hr capsule 00:00: [place] [facility] tamsulosin 2019-0 Yes Univers 0.4 mg 24 4-09 ity of hr capsule 00:00: [place] [facility] tamsulosin 2019-0 Yes Univers 0.4 mg 24 4-09 ity of hr capsule 00:00: [place] [facility] tamsulosin 2019-0 Yes Univers 0.4 mg 24 4-09 ity of hr capsule 00:00: [place] [facility] tamsulosin 2019-0 Yes Univers 0.4 mg 24 4-09 ity of hr capsule 00:00: [place] [facility] tamsulosin 2019-0 Yes Univers 0.4 mg 24 4-09 ity of hr capsule 00:00: [place] [facility] tamsulosin 2019-0 Yes Univers 0.4 mg 24 4-09 ity of hr capsule 00:00: [place] [address] [facility] tamsulosin 2019-0 Yes Univers 0.4 mg 24 4-09 ity of hr capsule 00:00: [place] [address] [facility] tamsulosin 2019-0 Yes Univers 0.4 mg 24 4-09 ity of hr capsule 00:00: [place] [address] [facility] tamsulosin 2019-0 Yes Univers 0.4 mg 24 4-09 ity of hr capsule 00:00: [place] [facility] tamsulosin 2019-0 Yes Univers 0.4 mg 24 4-09 ity of hr capsule 00:00: [place] [facility] tamsulosin 2019-0 Yes Univers 0.4 mg 24 4-09 ity of hr capsule 00:00: [place] [facility] tamsulosin 2019-0 Yes Univers 0.4 mg 24 4-09 ity of hr capsule 00:00: [place] [facility] tamsulosin 2019-0 Yes Univers 0.4 mg 24 4-09 ity of hr capsule 00:00: [place] [facility] tamsulosin 2019-0 Yes Univers 0.4 mg 24 4-09 ity of hr capsule 00:00: [place] [facility] tamsulosin 2019-0 Yes Univers 0.4 mg 24 4-09 ity of hr capsule 00:00: [place] [facility] tamsulosin 2019-0 Yes Univers 0.4 mg 24 4-09 ity of hr capsule 00:00: [place] [facility] tamsulosin 2019-0 Yes Univers 0.4 mg 24 4-09 ity of hr capsule 00:00: [place] [facility] tamsulosin 2019-0 Yes Univers 0.4 mg 24 4-09 ity of hr capsule 00:00: [place] [facility] TOPIRAMATE 2019-0 Yes [id number] TAKE 1 Univers 25 mg 3-01 TABLET BY ity of tablet 00:00: MOUTH TWO [place] [facility] DAILY [facility] TOPIRAMATE 2019-0 Yes [id number] TAKE 1 Univers 25 mg 3-01 TABLET BY ity of tablet 00:00: MOUTH TWO [place] [facility] TOPIRAMATE 2019-0 Yes [id number] TAKE 1 Univers 25 mg 3-01 TABLET BY ity of tablet 00:00: MOUTH TWO [place] [facility] TOPIRAMATE 2019-0 Yes [id number] TAKE 1 Univers 25 mg 3-01 TABLET BY ity of tablet 00:00: MOUTH TWO [place] [facility] TOPIRAMATE 2019-0 Yes [id number] TAKE 1 Univers 25 mg 3-01 TABLET BY ity of tablet 00:00: MOUTH TWO [place] [facility] TOPIRAMATE 2019-0 Yes [id number] TAKE 1 Univers 25 mg 3-01 TABLET BY ity of tablet 00:00: MOUTH TWO [place] 00 TIMES Medical DAILY Branch TOPIRAMATE Yes [id number] TAKE 1 Univers 25 mg 3-01 TABLET BY ity of tablet 00:00: MOUTH TWO [place] 00 TIMES Medical DAILY Branch TOPIRAMATE Yes [id number] TAKE 1 Univers 25 mg 3-01 TABLET BY ity of tablet 00:00: MOUTH TWO [place] 00 TIMES Medical DAILY Branch TOPIRAMATE 2019- No [id number] TAKE 1 Univers 25 mg 3-01 08-28 TABLET BY ity of tablet 00:00: 00:00 MOUTH TWO [place] 00 :00 TIMES Medical DAILY Branch testosteron [...] Pumps to ity of g/Actuation 00:00: area(s) Nelosn as (1 %) gel 00 daily. Medical [...] Immunizations Ordered Filled Immunization Date Status Comments [facility] e Immunization Name Name SARS-COV-2 COVID-19 2021-03-31 [...] Unive rsity of MODERNA VACCINE 00:00:00 [place] [facility] ical Branch SARS-COV-2 COVID-19 2020-05-28 Completed Unive rsity of MODERNA VACCINE 00:00:00 [place] [facility] SARS-COV-2 COVID-19 2020-05-28 Completed Unive rsity of MODERNA VACCINE 00:00:00 [place] [facility] SARS-COV-2 COVID-19 2020-05-28 Completed Unive rsity of MODERNA VACCINE 00:00:00 [place] [facility] SARS-COV-2 COVID-19 2020-05-28 Completed Unive rsity of MODERNA VACCINE 00:00:00 [place] [facility] ical Branch SARS-COV-2 COVID-19 2020-05-28 Completed Unive rsity of MODERNA VACCINE 00:00:00 [place] [facility] SARS-COV-2 COVID-19 2020-05-28 Completed Unive rsity of MODERNA VACCINE 00:00:00 [facility] ical Branch SARS-COV-2 COVID-19 2020-05-28 Completed Unive rsity of MODERNA VACCINE 00:00:00 [facility] SARS-COV-2 COVID-19 2020-05-28 Completed Unive rsity of MODERNA VACCINE 00:00:00 [facility] SARS-COV-2 COVID-19 2020-05-28 Completed Unive rsity of MODERNA VACCINE 00:00:00 [facility] Vital Signs Vital Name Observation Time Observation Value Comments Source Systolic blood 2020-07-19 21:14:00 98 mm[Hg] Univer sity of pressure [facility] [place] [facility] Diastolic blood 2020-07-19 21:14:00 65 mm[Hg] Unive rsity of pressure [facility] Heart rate 2020-07-19 21:14:00 75 /min [facility] Oxygen saturation in 2020-07-19 21:14:00 96 /min University of Arterial blood by [facility] Pulse oximetry Branch Systolic blood 2020-01-19 20:45:00 119 mm[Hg] Univer sity of pressure [facility] Diastolic blood 2020-01-19 20:45:00 84 mm[Hg] Unive rsity of pressure [facility] Heart rate 2020-01-19 20:45:00 82 /min [facility] Body temperature 2020-01-19 20:45:00 [facility].22 [facility] 2020-01-19 20:45:00 182.9 cm [facility] Body weight 2020-01-19 20:45:00 88.905 kg [facility] BMI 2020-01-19 20:45:00 26.58 kg/m2 [facility] Oxygen saturation in 2020-01-19 20:45:00 96 /min University of Arterial blood by [facility] Pulse oximetry Branch Systolic blood 2018-12-26 22:04:00 139 mm[Hg] Univer sity of pressure [facility] Diastolic blood 2018-12-26 22:04:00 83 mm[Hg] Unive rsity of pressure [place] [facility] Heart rate 2018-12-26 22:04:00 62 /min [facility]i ty [facility] [place] [facility] Body temperature 2018-12-26 22:04:00 36.39 Pretty Univ ersity of [place] [facility] Respiratory rate 2018-12-26 22:04:00 17 /min Univ ersity of [place] [facility] Body weight 2018-12-26 22:04:00 87.998 kg [facility] [place] [facility] BMI 2018-12-26 22:04:00 26.31 kg/m2 Universi ty of [facility] Systolic blood 2020 15:37:00 115 mm[Hg] Univer sity of pressure [place] [facility] Diastolic blood 2020 15:37:00 78 mm[Hg] Unive rsity of pressure [place] [facility] Heart rate 2020 15:37:00 105 /min [facility]i ty [facility] [place] [facility] Respiratory rate 2020 15:37:00 14 /min Univ ersity of [facility] Body height 2020 15:37:00 182.9 cm [facility] [place] [facility] Body weight 2020 15:37:00 89.54 kg [facility] [place] [facility] BMI 2020 15:37:00 26.77 kg/m2 [facility] [place] [facility] Systolic blood 2020-07-19 21:14:00 98 mm[Hg] Univer sity of pressure [place] [facility] Diastolic blood 2020-07-19 21:14:00 65 mm[Hg] Unive rsity of pressure [place] [facility] Heart rate 2020-07-19 21:14:00 75 /min [facility]i [facility] [place] [facility] Oxygen saturation in 2020-07-19 21:14:00 96 /min University Arterial blood by [facility] Pulse oximetry Branch Systolic blood 2020-02-02 15:06:00 114 mm[Hg] Univer sity of pressure [place] [facility] Diastolic blood 2020-02-02 15:06:00 78 mm[Hg] Unive rsity of pressure [place] [facility] Heart rate 2020-02-02 15:06:00 103 /min [facility]i [facility] [place] [facility] Respiratory rate 2020-02-02 15:06:00 19 /min Univ ersity of [place] [facility] Body weight 2020-02-02 15:06:00 88.406 kg Universi ty of [facility] BMI 2020-02-02 15:06:00 26.43 kg/m2 Universi ty of [facility] Systolic blood 2020-01-19 20:45:00 119 mm[Hg] Univer sity of pressure [facility] Diastolic blood 2020-01-19 20:45:00 84 mm[Hg] Unive rsity of pressure [facility] Heart rate 2020-01-19 20:45:00 82 /min Universi ty of [facility] Body temperature 2020-01-19 20:45:00 37.22 Pretty Univ ersity of [facility] Body height 2020-01-19 20:45:00 182.9 cm Universi ty of [facility] Body weight 2020-01-19 20:45:00 88.905 kg Universi ty of [facility] BMI 2020-01-19 20:45:00 26.58 kg/m2 Universi ty of [facility] Oxygen saturation in 2020-01-19 20:45:00 96 /min University of Arterial blood by [facility] Pulse oximetry Branch Systolic blood 2019-12-29 15:03:00 126 mm[Hg] Univer sity of pressure [facility] Diastolic blood 2019-12-29 15:03:00 79 mm[Hg] Unive rsity of pressure [facility] Heart rate 2019-12-29 15:03:00 84 /min Universi ty of [facility] Respiratory rate 2019-12-29 15:03:00 17 /min Univ ersity of [facility] Body weight 2019-12-29 15:03:00 87.635 kg Universi ty of [facility] BMI 2019-12-29 15:03:00 26.20 kg/m2 Universi ty of [facility] Systolic blood 2019-11-24 15:01:00 131 mm[Hg] Univer sity of pressure [facility] Diastolic blood 2019-11-24 15:01:00 83 mm[Hg] Unive rsity of pressure [facility] Heart rate 2019-11-24 15:01:00 61 /min Universi ty of [facility] Respiratory rate 2019-11-24 15:01:00 18 /min Univ ersity of [facility] Body weight 2019-11-24 15:01:00 92.08 kg Universi ty of [facility] BMI 2019-11-24 15:01:00 27.53 kg/m2 Universi ty [...] 2019-06-08 16:12:00 26.72 kg/m2 [facility] [place] [facility] Systolic blood 2019-04-07 16:01:00 116 mm[Hg] Univer sity of pressure [place] [facility] Diastolic blood 2019-04-07 16:01:00 74 mm[Hg] Unive rsity of pressure [place] [facility] Heart rate 2019-04-07 16:01:00 67 /min [facility]i [facility] [place] [facility] Respiratory rate 2019-04-07 16:01:00 18 /min Univ ersity of [place] [facility] Body height 2019-04-07 16:01:00 182.9 cm [facility]i [facility] [place] [facility] Body weight 2019-04-07 16:01:00 89.359 kg [facility] [place] [facility] BMI 2019-04-07 16:01:00 26.72 kg/m2 [facility] [place] [facility] Systolic blood 2019-03-10 15:50:00 127 mm[Hg] Univer sity of pressure [place] [facility] Diastolic blood 2019-03-10 15:50:00 84 mm[Hg] Unive rsity of pressure [place] [facility] Heart rate 2019-03-10 15:50:00 89 /min [facility]i [facility] [place] [facility] Respiratory rate 2019-03-10 15:50:00 18 /min Univ ersity [facility] [place] [facility] Body height 2019-03-10 15:50:00 182.9 [...] 2019-02-10 15:16:00 20 /min Univ ersity of [place] [facility] Body height 2019-02-10 15:16:00 182.9 cm [facility]i [facility] [place] [facility] Body weight 2019-02-10 15:16:00 90.719 kg [facility] [place] [facility] BMI 2019-02-10 15:16:00 27.12 kg/m2 [facility] [place] [facility] Systolic blood 2019-01-06 15:07:00 114 [...] 2019-01-06 15:07:00 26.18 kg/m2 [facility] [place] [facility] Body temperature 2018-12-26 22:04:00 36.39 Pretty Univ ersity [facility] [place] [facility] Systolic blood 2018-12-09 15:09:00 118 [...] 2018-12-09 15:09:00 26.31 kg/m2 [facility] [place] [facility] Body height 2018-09-22 18:03:00 182.9 cm [facility] [place] [facility] Body temperature 2018 22:30:00 36.22 Pretty [facility] Procedures Procedure Date / Time Performing Clinician Source Performed SARS-COV-2 COVID-19 2021-03-31 22:17:29 Doctor Unasskwame, [facility] VACCINE BOOSTER,0.25ML,IM [place] [facility] (MODERNA) VALPROIC ACID, TOTAL 2020-07-19 21:54:00 [facility]-19 2020-06-25 20:02:30 Doctor Unasskwame, [facility] VACCINE,0.5ML,IM (MODERNA) [place] [facility] SARS-COV-2 COVID-19 2020-05-28 20:50:30 [facility] ([facility] Medic al Branch VALPROIC ACID, TOTAL 2020-02-07 15:21:00 Dyer Hugo [facility] CBC WITH DIFF 2020-02-07 15:21:00 [facility] GLYCOSYLATED HEMOGLOBIN 2020-02-07 15:21:00 Hugo Dyer [facility] (A1C) [facility] THYROID STIMULATING 2020-02-07 15:21:00 Gomez Hugo [facility] HORMONE [facility] COMP. METABOLIC PANEL 2020-02-07 15:21:00 Gomez [facility] ([id number]) [facility] LIPID PANEL ([id number])(TOTAL 2020-02-07 15:21:00 [facility] TRIGLYCERIDES, HDL) CBC WITH DIFF 2020-02-07 15:21:00 Gomez [facility] COMP. METABOLIC PANEL 2020-02-07 15:21:00 Gomez [facility] (10459) [facility] GLYCOSYLATED HEMOGLOBIN 2020-02-07 15:21:00 Hugo Dyer [facility] (A1C) [facility] LIPID PANEL (14605)(TOTAL 2020-02-07 15:21:00 [facility] CHOLESTEROL, [facility] TRIGLYCERIDES, HDL) VALPROIC ACID, TOTAL 2020-02-07 15:21:00 Dyer, [facility] Medical Bud THYROID STIMULATING 2020-02-07 15:21:00 Hugo Dyer [facility] HORMONE Medical Branch NOTICE OF PRIVACY 2020-02-07 14:56:54 Doctor Roger, [facility] PRACTICES [facility] CONSENT/REFUSAL FOR 2020-02-07 14:56:36 Doctor Roger [facility] DIAGNOSIS AND TREATMENT [facility] CONSENT/REFUSAL FOR 2020-02-07 14:56:36 Doctor Roger [facility] DIAGNOSIS AND TREATMENT [facility] ASSIGNMENT OF BENEFITS 2020-02-07 14:56:19 [facility] [place] [facility] ASSIGNMENT OF BENEFITS 2020-02-07 14:56:19 Doctor Roger, [facility] [place] [facility] LIPID PANEL (35850)(TOTAL 2019-02-20 15:50:00 Thong [facility] TRIGLYCERIDES, HDL) GLYCOSYLATED HEMOGLOBIN 2019-02-20 15:50:00 Thong [facility] (A1C) Pilar Mancini [facility] NOTICE OF BILLING 2019-02-10 15:07:07 Doctor Roger, [facility] PRACTICES FOR MEDICARE [place] [facility] PATIENTS [facility] PATIENT FINANCIAL 2019-02-10 15:06:44 Doctor Roger, [facility] POLICY [facility] NO SHOW OR MISSED 2019-02-10 15:06:16 Doctor Duran, [facility] APPOINTMENT POLICY [place] [facility] ACKNOWLEDGEMENT EXTERNAL PROVIDER RECORDS 2018-11-21 05:01:00 Doctor Duran, [facility] [place] [facility] Encounters Start End Encounter Admission Attending Care Care Encounter Source Date/Time Date/Time Type Type Clinicians Facility Department ID 2021-06-12 Outpatient 3 TAYE WHITLOCK OZZY [id number] ENCPL 13:09:35 SIVAKUMAR 1025 2021-06-12 Outpatient 3 [id number] ENCPL REF [id number] ENCPL 13:07:10 1019 2021-06-12 Outpatient 3 TAYE Draper OZZY [id number] ENCPL 12:40:27 Danielle 0810 2021-06-12 Outpatient 3 [id number] ENCPL REF [id number] ENCPL 12:40:00 0809 2021-06-12 Outpatient 3 [id number] ENCPL REF ENCPL 12:39:14 0806 2021-06-12 Outpatient 3 [id number] ENCPL OT ENCPL 11:32:46 0212021-06-12 Outpatient 3 [id number] ENCPL REF [id number] ENCPL 11:32:25 0212021-06-11 Outpatient Donita, STLMLC STLMLC [id number] Common 13:11:40 Mike 21049 [facility] 2021-07-24 2021-07-24 ambulatory STLMLC STLMLC [id number] Common 00:00:00 00:00:00 [facility] 2021-07-07 2021-07-07 ambulatory STLMLC STLMLC [id number] Common 00:00:00 00:00:00 [facility] 2021-06-18 2021-06-18 ambulatory STLMLC STLMLC [id number] Common 00:00:00 00:00:00 [facility] 2021-05-21 2021-05-21 ambulatory STLMLC STLMLC [id number] Common 00:00:00 00:00:00 [facility] 2021-04-23 2021-04-23 ambulatory STLMLC STLMLC [id number] Common 00:00:00 00:00:00 [facility] 2021-03-31 2021-03-31 Outpatient Mychal CAMPO [facility] [id number] Univers 16:00:00 15:47:40 EMILIANO nelson [facility] 2021-03-31 2021-03-31 Imm/Inj Nurse, Adc Pob Immunization [facility] 1.2.840.114 [id number] Univers 15:47:30 15:47:40 Visit Emiliano Campo 350.1.13 .10 [facility] 4.2.7.2.686 Caden alvarado PROFESSIO [id number] [address] 2021-01-17 2021-01-17 Outpatient R MAMADOU GIL [facility] [id number] Univers 15:40:00 15:40:00 MAMADOU GIL [id number] ity [facility] 2021-01-09 2021-01-09 Outpatient STLMLC STLMLC [id number] Common 00:00:00 00:00:00 [facility] 2020-11-08 2020-11-08 Outpatient R [facility] [id number] -20 Univers 10:45:00 10:45:00 [id number] ity [facility] 2020-11-08 2020-11-08 Outpatient R LORENZA MAMI [facility] [id number] Univers 10:45:00 10:45:00 ity [facility] 2020-10-21 2020-10-21 Outpatient STLMLC STLMLC [id number] Common 00:00:00 00:00:00 [facility] 2020 2020 Outpatient R [facility] [id number] -[id number] Univers 10:45:00 10:45:00 [id number] ity [facility] 2020 2020 Outpatient R LORENZA MAMI [facility] [id number] Univers 10:45:00 10:45:00 ity [facility] 2020 2020 Travel 1.2.840.1 1.2.741.738 [id number] Univers 00:00:00 00:00:00 79328.1.1 350.1.13.10 ity of 3.104.2.[place] 084.8 Medica l .8 Branch 2020-09-12 2020-09-12 Outpatient R [facility] [id number] -[id number] Univers 10:45:00 10:45:00 [id number] ity [facility] 2020-09-12 2020-09-12 Outpatient R LORENZAJESSICA AVITIAK [facility] [id number] Univers 10:45:00 10:45:00 ity [facility] 2020-09-06 2020-09-06 Outpatient R [facility] [id number] -20 Univers 10:00:00 10:00:00 [id number] ity of [facility] [place] [facility] 2020-09-05 2020-09-05 Outpatient R [facility] [id number] -[id number] Univers 10:00:00 10:00:00 [id number] ity [facility] 2020-08-30 2020-08-30 Outpatient R [facility] [id number] -[id number] Univers 10:00:00 10:00:00 [id number] ity [facility] 2020-07-26 2020-07-26 Telephone Louise, 1.2.840.5 [id number] Univers 00:00:00 00:00:00 Mamadou Johns 88295.1.1 ity of 3.104.2.7 [place] .3.149174 Medica l .8 Bud 2020-07-19 2020-07-19 Office Mayur Gil.2.840.2 [id number] Univers 14:59:36 16:04:15 Visit Mamadou Johns 94404.1.1 ity of 3.104.2.7 [place] .3.300681 Medica l .8 Bud 2020-07-19 2020-07-19 Food Preparation Supervisor Mamadou Gil 1.2.840.8 [id number] Univers 15:47:23 16:02:23 Visit 2, Adc Lab 25780.1.1 i ty of 3.104.2.7 [place] .3.394523 Medica l .8 Bud 2020-07-19 2020-07-19 Outpatient MAMADOU RIZVI [facility] [id number] Univers 15:00:00 15:00:00 MAMADOU GIL [id number] ity [facility] 2020-07-19 2020-07-19 Outpatient MAMADOU RIZVI [facility] [id number] Univers 15:00:00 15:00:00 MAMADOU GIL ity [facility] 2020-07-19 2020-07-19 Travel 1.2.840.1 1.2.132.418 [id number] Univers 00:00:00 00:00:00 86394.1.1 350.1.13.10 it[place] of 3.104.2.[place].2512[place] 084.8 Medica l .8 Bud 2020-07-18 2020-07-18 Outpatient R [facility] [id number] -[id number] Univers 10:00:00 10:00:00 [id number] ity [facility] 2020-07-18 2020-07-18 Outpatient R MAMI GODOY [facility] [id number] Univers 10:00:00 10:00:00 ity of [facility] [place] [facility] 2020-07-12 2020-07-12 Outpatient R [facility] [id number] -[id number] Univers 10:00:00 10:00:00 [id number] ity [facility] 2020-06-25 2020-06-25 [facility] [id number] Univers 14:10:00 14:10:00 IVÁN [id number] ity [facility] 2020-06-25 2020-06-25 [facility] [id number] Univers 14:10:00 14:10:00 IVÁN ity [facility] 2020-06-25 2020-06-25 Imm/Inj Iván Alegria 1.2.840.1 [id number] Univers 14:00:29 14:01:18 Visit Nurse, Adc Pob Immunization 43781.1.1 ity of 3.104.2.7 [place] .3.767415 Medica l .8 Bud 2020-06-07 2020-06-07 Outpatient R [facility] [id number] -[id number] Univers 10:00:00 10:00:00 [id number] ity [facility] 2020-06-07 2020-06-07 Outpatient R MAMI GODOY [facility] [id number] Univers 10:00:00 10:00:00 ity [facility] 2020-05-28 2020-05-28 Outpatient Mychal ALEGRIA [facility] [id number] Univers 15:00:00 15:00:00 IVÁN ity [facility] 2020-05-28 2020-05-28 Imm/Inj Iván Alegria 1.2.840.1 [id number] Univers 14:46:27 14:49:49 Visit Nurse, Adc Pob Immunization 39652.1.1 ity of 3.104.2.7 [place] .3.739237 Medica l .8 Bud 2020-05-28 2020-05-28 Outpatient R KORY [facility] [id number] Univers 09:10:00 09:10:00 IVÁN [id number] ity of [facility] [place] [facility] 2020-05-11 2020-05-11 Outpatient R [facility] [id number] -[id number] Univers 17:40:00 17:40:00 [id number] ity of [facility] [place] [facility] 2020-05-11 2020-05-11 Outpatient R ALISIA, [facility] [id number] Univers 17:40:00 17:40:00 ATTENDING ity [facility] 2020-05-11 2020-05-11 Telemedici Shilpi Pop 1.2.840.6 [id number] Univers 15:55:08 16:15:08 ne Visit Unknown, Attending 81736.1.1 ity of Care, Provider 25 - Adult & Pedi Urgent 3.104.2.7 [place] .3.320124 Medica l .8 Bud 2020-04-26 2020-04-26 Outpatient R [facility] [id number] -[id number] Univers 10:00:00 10:00:00 [id number] ity of [facility] [place] [facility] 2020-04-26 2020-04-26 Outpatient R MAMI GODOY [facility] [id number] Univers 10:00:00 10:00:00 ity of [facility] [place] [facility] 2020-03-15 2020-03-15 Outpatient R [facility] [id number] -20 Univers 10:00:00 10:00:00 ity of [facility] [place] [facility] 2020-03-15 2020-03-15 Outpatient R MAMI GODOY [facility] [id number] Univers 10:00:00 10:00:00 ity of [facility] [place] [facility] 2020-02-16 2020-02-16 Outpatient R [facility] [id number] -[id number] Univers 14:15:00 14:15:00 ity of [facility] [place] [facility] 2020-02-16 2020-02-16 Outpatient R KAMILLA, [facility] [id number] Univers 14:15:00 14:15:00 RADHA ity of [facility] [place] [facility] 2020-02-09 2020-02-09 Outpatient R [facility] [id number] -[id number] Univers 10:00:00 10:00:00 [id number] ity of [facility] [place] [facility] 2020-02-08 2020-02-08 Outpatient R [facility] [id number] -[id number] Univers 10:00:00 10:00:00 [id number] ity of [facility] [place] [facility] 2020-02-07 2020-02-07 Outpatient R [facility] [id number] -[id number] Univers 10:30:00 10:30:00 [id number] ity of [facility] [place] [facility] 2020-02-07 2020-02-07 Outpatient R JYOTI, [facility] [id number] Univers 10:30:00 10:30:00 ADRIAN ity of [facility] [place] [facility] 2020-02-07 2020-02-07 Food Preparation Supervisor Adrian Araujo 1.2.840.0 [id number] Univers 09:57:45 10:12:45 Visit Pob, Adc Lab Main 51953.1.1 ity of 3.104.2.7 [place] .3.967885 Medica l .8 Bud 2020-02-07 2020-02-07 Orders Doctor 1.2.840.3 [id number] Univers 00:00:00 00:00:00 Only Unassigned, 79031.1.1 ity of [place] 3.104.2.7 [place] .3.530300 Medica l .8 Bud 2020-02-07 2020-02-07 Travel 1.2.840.1 1.2.219.941 [id number] Univers 00:00:00 00:00:00 49060.1.1 350.1.13.10 ity of 3.104.2.7 [place].698 [place] .[place].698[place] 084.8 Medica l .8 Bud 2020-02-04 2020-02-04 Nurse Renetta, 1.2.840.9 [id number] Univers 00:00:00 00:00:00 Triage Ariana T 96045.1.1 ity of 3.104.2.7 [place] .3.659639 Medica l .8 Bud 2020-02-04 2020-02-04 Telephone Louise, 1.2.840.8 [id number] Univers 00:00:00 00:00:00 Mamadou Johns 60749.1.1 ity of 3.104.2.7 [place] .3.599698 Medica l .8 Bud 2020-02-02 2020-02-02 Outpatient R [facility] [id number] -[id number] Univers 10:00:00 10:00:00 [id number] ity of [facility] [place] [facility] 2020-02-02 2020-02-02 Outpatient R MAMI GODOY [facility] [id number] Univers 10:00:00 10:00:00 ity of [facility] [place] [facility] 2020-02-02 2020-02-02 Travel 1.2.840.1 1.2.487.491 [id number] Univers 00:00:00 00:00:00 52248.1.1 350.1.13.10 ity of 3.104.2.7 [place].698 [place] .3.105493 084.8 Medica l .8 Bud 2020-02-01 2020-02-01 Travel 1.2.840.1 1.2.742.381 [id number] Univers 00:00:00 00:00:00 89572.1.1 350.1.13.10 ity of 3.104.2.7 [place].3.698 [place] .3.816583 084.8 Medica l .8 Bud 2020-01-19 2020-01-19 Office Louise, 1.2.840.2 [id number] Univers 14:42:27 16:01:19 Visit Mamadou Johns 13736.1.1 ity of 3.104.2.7 [place] .3.760012 Medica l .8 Bud 2020-01-19 2020-01-19 Outpatient MAMADOU GIL [facility] [id number] Univers 15:00:00 15:00:00 MAMADOU GIL ity of [facility] [place] [facility] 2020-01-19 2020-01-19 Outpatient R MAMADOU GIL [facility] [id number] Univers 15:00:00 15:00:00 MAMADOU GIL ity of [facility] [place] [facility] 2020-01-19 2020-01-19 Travel 1.2.840.1 1.2.347.256 [id number] Univers 00:00:00 00:00:00 58142.1.1 350.1.13.10 ity of 3.104.2.7 [place].3.698 [place] .3.800892 084.8 Medica l .8 Bud 2020-01-08 2020-01-08 Telephone Louise 1.2.840.0 [id number] Univers 00:00:00 00:00:00 Mamadou Johns 56051.1.1 ity of 3.104.2.7 [place] .3.151801 Medica l .8 Bud 2019-12-29 2019-12-29 Outpatient R [facility] [id number] -[id number] Univers 10:00:00 10:00:00 [id number] ity of [facility] [place] [facility] 2019-12-29 2019-12-29 Outpatient R MAMI GODOY [facility] [id number] Univers 10:00:00 10:00:00 ity of [facility] [place] [facility] 2019-12-29 2019-12-29 Travel 1.2.840.1 1.2.037.128 [id number] Univers 00:00:00 00:00:00 88827.1.1 350.1.13.10 ity of 3.104.2.7 [place].3.698 [place] .3.852987 084.8 Medica l .8 Bud 2019-11-24 2019-11-24 Outpatient R [facility] [id number] -[id number] Univers 10:00:00 10:00:00 [id number] ity of [facility] [place] [facility] 2019-11-24 2019-11-24 Outpatient R JUNO HOSKINS [facility] [id number] Univers 10:00:00 10:00:00 ity of [facility] [place] [facility] 2019-11-24 2019-11-24 Travel 1.2.840.1 1.2.767.915 [id number] Univers 00:00:00 00:00:00 41487.1.1 350.1.13.10 ity of 3.104.2.7 [place].3.698 [place] .3.825511 084.8 Medica l .8 Bud 2019-10-12 2019-10-12 Outpatient R [facility] [id number] -[id number] Univers 12:45:00 12:45:00 [id number] ity of [facility] [place] [facility] 2019-10-12 2019-10-12 [facility] [id number] Univers 12:45:00 12:45:00 ADRIAN ity of [facility] [place] [facility] 2019-09-08 2019-09-08 Outpatient R [facility] [id number] -[id number] Univers 09:15:00 09:15:00 [id number] ity of [facility] [place] [facility] 2019-09-08 2019-09-08 Outpatient R MAMI GODOY [facility] [id number] Univers 09:15:00 09:15:00 ity of [facility] [place] [facility] 2019-09-06 2019-09-06 Janice Gil, 1.2.840.2 [id number] Univers 00:00:00 00:00:00 Mamadou Gene 06562.1.1 ity of 3.104.2.7 [place] .3.704667 Medica l .8 Bud 2019-08-11 2019-08-11 Outpatient R MAMI GODOY [facility] [id number] Univers 10:00:00 10:00:00 ity of [facility] [place] [facility] 2019-02-20 2019-02-20 Food Preparation Supervisor Mami Godoy 1.2.840.1 [id number] Univers 10:14:05 10:29:05 Visit 1, Adc Lab 28965.1.1 i ty of 3.104.2.7 [place] .3.900510 Medica l .8 Bud 2019-02-10 2019-02-10 Orders Doctor 1.2.840.7 [id number] Univers 00:00:00 00:00:00 Only Unassigned, 75327.1.1 ity of [place] 3.104.2.7 [place] .3.486296 Medica l .8 Bud 2019-01-11 2019-01-11 Refill Louise, 1.2.840.2 [id number] Univers 00:00:00 00:00:00 Mamadou Gene 31057.1.1 ity of 3.104.2.7 [place] .3.906842 Medica l .8 Bud 2018-12-26 2018-12-26 Office Louise, 1.2.840.1 [id number] Univers 15:42:00 17:08:53 Visit Mamadou Gene 34836.1.1 ity of 3.104.2.7 [place] .3.240060 Medica l .8 Bud 2018-11-21 2018-11-21 Orders Doctor 1.2.840.4 [id number] Univers 00:00:00 00:00:00 Only Unassigned, 73616.1.1 ity of [place] 3.104.2.7 [place] .3.416776 Medica l .8 Bud 2018-09-16 2018-09-16 Telephone Louise, 1.2.840.9 [id number] Univers 00:00:00 00:00:00 Mamadou Gene 09079.1.1 ity of 3.104.2.7 [place] .3.192937 Medica l .8 Bud 2018 2018 Office Louise, 1.2.840.1 [id number] Univers 15:36:03 17:23:49 Visit Mamadou Gene 79574.1.1 ity of 3.104.2.7 [place] .3.217599 Medica l .8 Bud Results Test Description Test Time Test Comments Results Result Comments Source VALPROIC ACID, TOTAL 2020-07-19 23:16:00 Test Item Value Reference Range Interpretation Comme nts VALPROIC A (test code = 2275727868) 32 ug/mL 50-100 L JOEY (test code = JOEY) Toxic Range: ?Greater than 100 ug/mL Lab Interpretation (test code = 17069-2) [facility]normal [facility] [id number] 23:16:00 Test Item Value Reference Range Interpretation Comments VALPROIC A (test code = 32 ug/mL 50-100 L [id number]) JOEY (test code = JOEY) Toxic Range: ?Greater than 100 ug/mL Lab Interpretation (test Abnormal code = 06202-7) [facility] [id number] 23:16:00 Test Item Value Reference Range Interpretation Comments VALPROIC A (test code = 32 ug/mL 50-100 L [id number]) JOEY (test code = JOEY) Toxic Range: ?Greater than 100 ug/mL Lab Interpretation (test Abnormal code = 85827-7) [facility] [id number] 23:16:00 Test Item Value Reference Range Interpretation Comments VALPROIC A (test code = 32 ug/mL 50-100 L [id number]) JOEY (test code = JOEY) Toxic Range: ?Greater than 100 ug/mL Lab Interpretation (test Abnormal code = 80370-8) [facility] [id number] 23:16:00 Test Item Value Reference Range Interpretation Comments VALPROIC A (test code = 32 ug/mL 50-100 L [id number]) JOEY (test code = JOEY) Toxic Range: ?Greater than 100 ug/mL Lab Interpretation (test Abnormal code = 48559-8) [facility] [id number] 23:16:00 Test Item Value Reference Range Interpretation Comments VALPROIC A (test code = 32 ug/mL 50-100 L 7271093773) JOEY (test code = JOEY) Toxic Range: ?Greater than 100 ug/mL Lab Interpretation (test Abnormal code = 81474-7) [facility] [id number] 17:48:00 Test Item Value Reference Range Interpretation Comments TSH (test code = See_Comment [Automated message] [id number]) The system [employer] generated this result transmitted ref erence range: 0.45 - 4 .70 mIU/L. The refe rence range was not u sed to interpret this result as normal/abnor mal. Lab Interpretation (test Normal code = 08358-8) [facility] [id number] 17:48:00 Test Item Value Reference Range Interpretation Comments TSH (test code = See_Comment [Automated message] [id number]) The system [facility] generated this result transmitted ref erence range: 0.45 - 4 .70 mIU/L. The refe rence range was not u sed to interpret this result as normal/abnor mal. Lab Interpretation (test Normal code = 57942-1) [facility] [id number] 17:48:00 Test Item Value Reference Range Interpretation Comments TSH (test code = See_Comment [Automated message] [id number]) The system [facility] generated this result transmitted ref erence range: 0.45 - 4 .70 mIU/L. The refe rence range was not u sed to interpret this result as normal/abnor mal. Lab Interpretation (test Normal code = 67510-5) [facility] [id number] 17:48:00 Test Item Value Reference Range Interpretation Comments TSH (test code = See_Comment [Automated message] [id number]) The system [facility] generated this result transmitted ref erence range: 0.45 - 4 .70 mIU/L. The refe rence range was not u sed to interpret this result as normal/abnor mal. Lab Interpretation (test Normal code = 99638-4) [facility] [id number] 17:48:00 Test Item Value Reference Range Interpretation Comments TSH (test code = See_Comment [Automated message] [id number]) The system [facility] generated this result transmitted ref erence range: 0.45 - 4 .70 mIU/L. The refe rence range was not u sed to interpret this result as normal/abnor mal. Lab Interpretation (test Normal code = 37860-7) [facility] [id number] 17:48:00 Test Item Value Reference Range Interpretation Comments TSH (test code = See_Comment [Automated message] [id number]) The system [facility] generated this result transmitted ref erence range: 0.45 - 4 .70 mIU/L. The refe rence range was not u sed to interpret this result as normal/abnor mal. Lab Interpretation (test Normal code = 81976-6) [facility] [id number] 17:48:00 Test Item Value Reference Range Interpretation Comments TSH (test code = See_Comment [Automated message] [id number]) The system [facility] generated this result transmitted ref erence range: 0.45 - 4 .70 mIU/L. The refe rence range was not u sed to interpret this result as normal/abnor mal. Lab Interpretation (test Normal code = 26643-1) [facility] [id number] 17:48:00 Test Item Value Reference Range Interpretation Comments TSH (test code = See_Comment [Automated message] [id number]) The system [facility] generated this result transmitted ref erence range: 0.45 - 4 .70 mIU/L. The refe rence range was not u sed to interpret this result as normal/abnor mal. Lab Interpretation (test Normal code = 26668-9) [facility] [id number] 17:48:00 Test Item Value Reference Range Interpretation Comments TSH (test code = See_Comment [Automated message] [id number]) The system [facility] generated this result transmitted ref erence range: 0.45 - 4 .70 mIU/L. The refe rence range was not u sed to interpret this result as normal/abnor mal. Lab Interpretation (test Normal code = 68800-9) [facility] [id number] 17:48:00 Test Item Value Reference Range Interpretation Comments TSH (test code = See_Comment [Automated message] [id number]) The system [facility] generated this result transmitted ref erence range: 0.45 - 4 .70 mIU/L. The refe rence range was not u sed to interpret this result as normal/abnor mal. Lab Interpretation (test Normal code = 82621-4) Carl [facility] [id number] 17:48:00 Test Item Value Reference Range Interpretation Comments TSH (test code = See_Comment [Automated message] [id number]) The system [facility] generated this result transmitted ref erence range: 0.45 - 4 .70 mIU/L. The refe rence range was not u sed to interpret this result as normal/abnor mal. Lab Interpretation (test Normal code = 62202-5) [facility] [id number] 17:48:00 Test Item Value Reference Range Interpretation Comments TSH (test code = See_Comment [Automated message] [id number]) The system [facility] generated this result transmitted ref erence range: 0.45 - 4 .70 mIU/L. The refe rence range was not u sed to interpret this result as normal/abnor mal. Lab Interpretation (test Normal code = 08440-0) [facility] [id number] 17:48:00 Test Item Value Reference Range Interpretation Comments TSH (test code = See_Comment [Automated message] [id number]) The system [facility] generated this result transmitted ref erence range: 0.45 - 4 .70 mIU/L. The refe rence range was not u sed to interpret this result as normal/abnor mal. Lab Interpretation (test Normal code = 56766-2) [facility] [id number] 17:48:00 Test Item Value Reference Range Interpretation Comments TSH (test code = See_Comment [Automated message] [id number]) The system [facility] generated this result transmitted ref erence range: 0.45 - 4 .70 mIU/L. The refe rence range was not u sed to interpret this result as normal/abnor mal. Lab Interpretation (test Normal code = 71534-1) [facility] ([id number])(TOTAL CHOLESTEROL, TRIGLYCERIDES, HDL)2020-02-07 17:19:00 Test Item Value Reference Range Interpretation Comments CHOL (test code = 117 mg/dL 120-200 L 1097582929) HDL (test code = 38 mg/dL >40 L 2434827219) HDLC RATIO (test code = See_Comment [Au tomated message] 7047426924) The system [facility] generated this result transmit claribel reference range : <=5.0. The refe rence range was not u sed to interpret th is result as normal/abnormal . TRIG (test code = 50 mg/dL 30-170 7274311263) LDL CHOL (test code = 69 mg/dL See_Comment [Auto mated message] 17608-2) The system [facility] generated this result transmit claribel reference range : <=160. The refe rence range was not u sed to interpret th is result as normal/abnormal . VLDL (test code = 10 mg/dL 5-60 4029626805) Lab Interpretation (test Abnormal code = 05632-7) [facility] ([id number])(TOTAL CHOLESTEROL, TRIGLYCERIDES, HDL)2020-02-07 17:19:00 Test Item Value Reference Range Interpretation Comments CHOL (test code = 117 mg/dL 120-200 L 3251634224) HDL (test code = 38 mg/dL >40 L 8323144737) HDLC RATIO (test code = See_Comment [Au tomated message] 7795587664) The system [facility] generated this result transmit claribel reference range : <=5.0. The refe rence range was not u sed to interpret th is result as normal/abnormal . TRIG (test code = 50 mg/dL 30-170 5802244331) LDL CHOL (test code = 69 mg/dL See_Comment [Auto mated message] 52508-0) The system [facility] generated this result transmit claribel reference range : <=160. The refe rence range was not u sed to interpret th is result as normal/abnormal . VLDL (test code = 10 mg/dL 5-60 6504124334) Lab Interpretation (test Abnormal code = 24317-3) [facility] ([id number])(TOTAL CHOLESTEROL, TRIGLYCERIDES, HDL)2020-02-07 17:19:00 Test Item Value Reference Range Interpretation Comments CHOL (test code = 117 mg/dL 120-200 L 5369777245) HDL (test code = 38 mg/dL >40 L 1341855912) HDLC RATIO (test code = See_Comment [Au tomated message] 8267486030) The system [facility] generated this result transmit claribel reference range : <=5.0. The refe rence range was not u sed to interpret th is result as normal/abnormal . TRIG (test code = 50 mg/dL 30-170 2941570062) LDL CHOL (test code = 69 mg/dL See_Comment [Auto mated message] 63088-8) The system [facility] generated this result transmit claribel reference range : <=160. The refe rence range was not u sed to interpret th is result as normal/abnormal . VLDL (test code = 10 mg/dL 5-60 8924156862) Lab Interpretation (test Abnormal code = 60832-6) [facility] ([id number])(TOTAL CHOLESTEROL, TRIGLYCERIDES, HDL)2020-02-07 17:19:00 Test Item Value Reference Range Interpretation Comments CHOL (test code = 117 mg/dL 120-200 L 0778062264) HDL (test code = 38 mg/dL >40 L 1236459773) HDLC RATIO (test code = See_Comment [Au tomated message] 5955191374) The system [facility] generated this result transmit claribel reference range : <=5.0. The refe rence range was not u sed to interpret th is result as normal/abnormal . TRIG (test code = 50 mg/dL 30-170 0408307232) LDL CHOL (test code = 69 mg/dL See_Comment [Auto mated message] 15166-7) The system [facility] generated this result transmit claribel reference range : <=160. The refe rence range was not u sed to interpret th is result as normal/abnormal . VLDL (test code = 10 mg/dL 5-60 1224455069) Lab Interpretation (test Abnormal code = 33112-5) [facility] ([id number])(TOTAL CHOLESTEROL, TRIGLYCERIDES, HDL)2020-02-07 17:19:00 Test Item Value Reference Range Interpretation Comments CHOL (test code = 117 mg/dL 120-200 L 6129281258) HDL (test code = 38 mg/dL >40 L 7783036280) HDLC RATIO (test code = See_Comment [Au tomated message] 1033387345) The system [facility] generated this result transmit claribel reference range : <=5.0. The refe rence range was not u sed to interpret th is result as normal/abnormal . TRIG (test code = 50 mg/dL 30-170 0654825360) LDL CHOL (test code = 69 mg/dL See_Comment [Auto mated message] 80048-0) The system [facility] generated this result transmit claribel reference range : <=160. The refe rence range was not u sed to interpret th is result as normal/abnormal . VLDL (test code = 10 mg/dL 5-60 7956711746) Lab Interpretation (test Abnormal code = 11823-8) [facility] (00450)(TOTAL CHOLESTEROL, TRIGLYCERIDES, HDL)2020-02-07 17:19:00 Test Item Value Reference Range Interpretation Comments CHOL (test code = 117 mg/dL 120-200 L 7729770932) HDL (test code = 38 mg/dL >40 L 6527338994) HDLC RATIO (test code = See_Comment [Au tomated message] 7483234946) The system [facility] generated this result transmit claribel reference range : <=5.0. The refe rence range was not u sed to interpret th is result as normal/abnormal . TRIG (test code = 50 mg/dL 30-170 7410014411) LDL CHOL (test code = 69 mg/dL See_Comment [Auto mated message] 15331-4) The system [facility] generated this result transmit claribel reference range : <=160. The refe rence range was not u sed to interpret th is result as normal/abnormal . VLDL (test code = 10 mg/dL 5-60 3968209087) Lab Interpretation (test Abnormal code = 13652-4) [facility] ([id number])(TOTAL CHOLESTEROL, TRIGLYCERIDES, HDL)2020-02-07 17:19:00 Test Item Value Reference Range Interpretation Comments CHOL (test code = 117 mg/dL 120-200 L 0305066381) HDL (test code = 38 mg/dL >40 L 1222079249) HDLC RATIO (test code = See_Comment [Au tomated message] 0587858873) The system [facility] generated this result transmit claribel reference range : <=5.0. The refe rence range was not u sed to interpret th is result as normal/abnormal . TRIG (test code = 50 mg/dL 30-170 7486890982) LDL CHOL (test code = 69 mg/dL See_Comment [Auto mated message] 43086-9) The system [facility] generated this result transmit claribel reference range : <=160. The refe rence range was not u sed to interpret th is result as normal/abnormal . VLDL (test code = 10 mg/dL 5-60 3760629715) Lab Interpretation (test Abnormal code = 08176-8) [facility] ([id number])(TOTAL CHOLESTEROL, TRIGLYCERIDES, HDL)2020-02-07 17:19:00 Test Item Value Reference Range Interpretation Comments CHOL (test code = 117 mg/dL 120-200 L 9640823265) HDL (test code = 38 mg/dL >40 L 4677930371) HDLC RATIO (test code = See_Comment [Au tomated message] 1002260081) The system [facility] generated this result transmit claribel reference range : <=5.0. The refe rence range was not u sed to interpret th is result as normal/abnormal . TRIG (test code = 50 mg/dL 30-170 7360156471) LDL CHOL (test code = 69 mg/dL See_Comment [Auto mated message] 85330-4) The system [facility] generated this result transmit claribel reference range : <=160. The refe rence range was not u sed to interpret th is result as normal/abnormal . VLDL (test code = 10 mg/dL 5-60 2352030447) Lab Interpretation (test Abnormal code = 04280-8) [facility] (61706)(TOTAL CHOLESTEROL, TRIGLYCERIDES, HDL)2020-02-07 17:19:00 Test Item Value Reference Range Interpretation Comments CHOL (test code = 117 mg/dL 120-200 L 9109897874) HDL (test code = 38 mg/dL >40 L 6563649959) HDLC RATIO (test code = See_Comment [Au tomated message] 1700748835) The system [facility] generated this result transmit claribel reference range : <=5.0. The refe rence range was not u sed to interpret th is result as normal/abnormal . TRIG (test code = 50 mg/dL 30-170 2078590420) LDL CHOL (test code = 69 mg/dL See_Comment [Auto mated message] 89298-3) The system [facility] generated this result transmit claribel reference range : <=160. The refe rence range was not u sed to interpret th is result as normal/abnormal . VLDL (test code = 10 mg/dL 5-60 9748876866) Lab Interpretation (test Abnormal code = 66608-9) [facility] ([id number])(TOTAL CHOLESTEROL, TRIGLYCERIDES, HDL)2020-02-07 17:19:00 Test Item Value Reference Range Interpretation Comments CHOL (test code = 117 mg/dL 120-200 L 5892483264) HDL (test code = 38 mg/dL >40 L 9788825063) HDLC RATIO (test code = See_Comment [Au tomated message] 9208431462) The system [facility] generated this result transmit claribel reference range : <=5.0. The refe rence range was not u sed to interpret th is result as normal/abnormal . TRIG (test code = 50 mg/dL 30-170 9798249346) LDL CHOL (test code = 69 mg/dL See_Comment [Auto mated message] 70839-4) The system [facility] generated this result transmit claribel reference range : <=160. The refe rence range was not u sed to interpret th is result as normal/abnormal . VLDL (test code = 10 mg/dL 5-60 3313114501) Lab Interpretation (test Abnormal code = 54625-6) [facility] ([id number])(TOTAL CHOLESTEROL, TRIGLYCERIDES, HDL)2020-02-07 17:19:00 Test Item Value Reference Range Interpretation Comments CHOL (test code = 117 mg/dL 120-200 L 6279829083) HDL (test code = 38 mg/dL >40 L 3313076039) HDLC RATIO (test code = See_Comment [Au tomated message] 5875870341) The system [facility] generated this result transmit claribel reference range : <=5.0. The refe rence range was not u sed to interpret th is result as normal/abnormal . TRIG (test code = 50 mg/dL 30-170 0130715222) LDL CHOL (test code = 69 mg/dL See_Comment [Auto mated message] 90724-1) The system [facility] generated this result transmit claribel reference range : <=160. The refe rence range was not u sed to interpret th is result as normal/abnormal . VLDL (test code = 10 mg/dL 5-60 7234777546) Lab Interpretation (test Abnormal code = 46787-2) [facility] ([id number])(TOTAL CHOLESTEROL, TRIGLYCERIDES, HDL)2020-02-07 17:19:00 Test Item Value Reference Range Interpretation Comments CHOL (test code = 117 mg/dL 120-200 L 3973450855) HDL (test code = 38 mg/dL >40 L 9342258485) HDLC RATIO (test code = See_Comment [Au tomated message] 8145540813) The system [facility] generated this result transmit claribel reference range : <=5.0. The refe rence range was not u sed to interpret th is result as normal/abnormal . TRIG (test code = 50 mg/dL 30-170 4361756581) LDL CHOL (test code = 69 mg/dL See_Comment [Auto mated message] 61373-4) The system [facility] generated this result transmit claribel reference range : <=160. The refe rence range was not u sed to interpret th is result as normal/abnormal . VLDL (test code = 10 mg/dL 5-60 9672278840) Lab Interpretation (test Abnormal code = 45976-4) [facility] ([id number])(TOTAL CHOLESTEROL, TRIGLYCERIDES, HDL)2020-02-07 17:19:00 Test Item Value Reference Range Interpretation Comments CHOL (test code = 117 mg/dL 120-200 L 6841710359) HDL (test code = 38 mg/dL >40 L 6539823824) HDLC RATIO (test code = See_Comment [Au tomated message] 8904923937) The system [facility] generated this result transmit claribel reference range : <=5.0. The refe rence range was not u sed to interpret th is result as normal/abnormal . TRIG (test code = 50 mg/dL 30-170 0771861176) LDL CHOL (test code = 69 mg/dL See_Comment [Auto mated message] 97750-5) The system [facility] generated this result transmit claribel reference range : <=160. The refe rence range was not u sed to interpret th is result as normal/abnormal . VLDL (test code = 10 mg/dL 5-60 4917830973) Lab Interpretation (test Abnormal code = 93266-5) [facility] ([id number])(TOTAL CHOLESTEROL, TRIGLYCERIDES, HDL)2020-02-07 17:19:00 Test Item Value Reference Range Interpretation Comments CHOL (test code = 117 mg/dL 120-200 L 4257975855) HDL (test code = 38 mg/dL >40 L 8872316648) HDLC RATIO (test code = See_Comment [Au tomated message] 5892552712) The system [facility] generated this result transmit claribel reference range : <=5.0. The refe rence range was not u sed to interpret th is result as normal/abnormal . TRIG (test code = 50 mg/dL 30-170 1820789664) LDL CHOL (test code = 69 mg/dL See_Comment [Auto mated message] 86263-5) The system [facility] generated this result transmit claribel reference range : <=160. The refe rence range was not u sed to interpret th is result as normal/abnormal . VLDL (test code = 10 mg/dL 5-60 5549694169) Lab Interpretation (test Abnormal code = 20899-3) [facility]. METABOLIC PANEL ([id number])2020-02-07 17:18:00 Test Item Value Reference Range Interpretation Comments NA (test code = 141 mmol/L 135-145 9393751215) K (test code = 4.3 mmol/L 3.5-5 7201785183) CL (test code = 103 mmol/L 98-108 0759453649) CO2 TOTAL (test code = 30 mmol/L 23-31 7456209678) AGAP (test code = 2-16 6249344720) BUN (test code = 13 mg/dL 7-23 4787706187) GLUCOSE (test code = 91 mg/dL 70-110 9516565634) CREATININE (test code = 0.80 mg/dL 0.6-1.25 6658981660) TOTAL BILI (test code = 0.6 mg/dL 0.1-1.5 5623658509) CALCIUM (test code = 9.7 mg/dL 8.6-10.6 0526907629) T PROTEIN (test code = 5.6 g/dL 6.3-8.2 L 5788019003) ALBUMIN (test code = 3.4 g/dL 3.5-5 L 9953404509) ALK PHOS (test code = 76 U/L 34-122 6302818509) ALTv (test code = 15 U/L 5-50 1742-6) AST(SGOT) (test code = 17 U/L 13-40 9643627528) eGFR Calculation mL/min/1.73m2 (Non-) (test code = 5402413867) eGFR Calculation mL/min/1.73m2 () (test code = 1158780459) JOEY (test code = JOEY) Association of [...] tests). Lab Interpretation Abnormal (test code = 12398-8) [facility] METABOLIC PANEL (05300)2020-02-07 17:18:00 Test Item Value Reference Range Interpretation Comments NA (test code = 141 mmol/L 135-145 3960238856) K (test code = 4.3 mmol/L 3.5-5 2035644757) CL (test code = 103 mmol/L 98-108 2748053433) CO2 TOTAL (test code = 30 mmol/L 23-31 6993207181) AGAP (test code = 2-16 3853889720) BUN (test code = 13 mg/dL 7-23 0365546941) GLUCOSE (test code = 91 mg/dL 70-110 5709597665) CREATININE (test code = 0.80 mg/dL 0.6-1.25 7183732787) TOTAL BILI (test code = 0.6 mg/dL 0.1-1.9 9217442774) CALCIUM (test code = 9.7 mg/dL 8.6-10.6 5754030008) T PROTEIN (test code = 5.6 g/dL 6.3-8.2 L 8093183820) ALBUMIN (test code = 3.4 g/dL 3.5-5 L 3574956131) ALK PHOS (test code = 76 U/L 34-122 6065469424) ALTv (test code = 15 U/L 5-50 1742-6) AST(SGOT) (test code = 17 U/L 13-40 5740729208) eGFR Calculation mL/min/1.73m2 (Non-) (test code = 3061809340) eGFR Calculation mL/min/1.73m2 () (test code = 0440257495) JOEY (test code = OJEY) Association of Glomerular Filtration Rate (GFR) and [...] tests). Lab Interpretation Abnormal (test code = 28806-5) [facility] ([id number])2020-02-07 17:18:00 Test Item Value Reference Range Interpretation Comments NA (test code = 141 mmol/L 135-145 4789737987) K (test code = 4.3 mmol/L 3.5-5 3448429235) CL (test code = 103 mmol/L 98-108 7389902597) CO2 TOTAL (test code = 30 mmol/L 23-31 9997276253) AGAP (test code = 2-16 8947547692) BUN (test code = 13 mg/dL 7-23 1157195774) GLUCOSE (test code = 91 mg/dL 70-110 0832559984) CREATININE (test code = 0.80 mg/dL 0.6-1.25 3196054024) TOTAL BILI (test code = 0.6 mg/dL 0.1-1.7 5115198327) CALCIUM (test code = 9.7 mg/dL 8.6-10.6 3543809374) T PROTEIN (test code = 5.6 g/dL 6.3-8.2 L 3299858688) ALBUMIN (test code = 3.4 g/dL 3.5-5 L 4953688186) ALK PHOS (test code = 76 U/L 34-122 6894388655) ALTv (test code = 15 U/L 5-50 1742-6) AST(SGOT) (test code = 17 U/L 13-40 6898400036) eGFR Calculation mL/min/1.73m2 (Non-) (test code = 1994528500) eGFR Calculation mL/min/1.73m2 () (test code = 7447941644) JOEY (test code = JOEY) Association of [...] tests). Lab Interpretation Abnormal (test code = 58338-1) [facility] METABOLIC PANEL ([id number])2020-02-07 17:18:00 Test Item Value Reference Range Interpretation Comments NA (test code = 141 mmol/L 135-145 9074712239) K (test code = 4.3 mmol/L 3.5-5 8380618911) CL (test code = 103 mmol/L 98-108 1748453887) CO2 TOTAL (test code = 30 mmol/L 23-31 0002844954) AGAP (test code = 2-16 4429933183) BUN (test code = 13 mg/dL 7-23 4488735150) GLUCOSE (test code = 91 mg/dL 70-110 6512400060) CREATININE (test code = 0.80 mg/dL 0.6-1.25 5831562158) TOTAL BILI (test code = 0.6 mg/dL 0.1-1.1 2375375166) CALCIUM (test code = 9.7 mg/dL 8.6-10.6 0237031600) T PROTEIN (test code = 5.6 g/dL 6.3-8.2 L 4184812237) ALBUMIN (test code = 3.4 g/dL 3.5-5 L 9575679278) ALK PHOS (test code = 76 U/L 34-122 8855921125) ALTv (test code = 15 U/L 5-50 1742-6) AST(SGOT) (test code = 17 U/L 13-40 9246394143) eGFR Calculation mL/min/1.73m2 (Non-) (test code = 8150889230) eGFR Calculation mL/min/1.73m2 () (test code = 2464025825) JOEY (test code = JOEY) Association of [...] tests). Lab Interpretation Abnormal (test code = 94951-5) [facility] METABOLIC PANEL ([id number])2020-02-07 17:18:00 Test Item Value Reference Range Interpretation Comments NA (test code = 141 mmol/L 135-145 1664298238) K (test code = 4.3 mmol/L 3.5-5 5892716945) CL (test code = 103 mmol/L 98-108 1715514510) CO2 TOTAL (test code = 30 mmol/L 23-31 5092686750) AGAP (test code = 2-16 2034875021) BUN (test code = 13 mg/dL 7-23 9679180913) GLUCOSE (test code = 91 mg/dL 70-110 1795345829) CREATININE (test code = 0.80 mg/dL 0.6-1.25 6653746292) TOTAL BILI (test code = 0.6 mg/dL 0.1-1.1 4608732911) CALCIUM (test code = 9.7 mg/dL 8.6-10.6 9146551691) T PROTEIN (test code = 5.6 g/dL 6.3-8.2 L 6355484204) ALBUMIN (test code = 3.4 g/dL 3.5-5 L 9273072542) ALK PHOS (test code = 76 U/L 34-122 1488302144) ALTv (test code = 15 U/L 5-50 1742-6) AST(SGOT) (test code = 17 U/L 13-40 3366246861) eGFR Calculation mL/min/1.73m2 (Non-) (test code = 5295617977) eGFR Calculation mL/min/1.73m2 () (test code = 6482864383) JOEY (test code = JOEY) Association of [...] tests). Lab Interpretation Abnormal (test code = 53234-4) [facility] METABOLIC PANEL ([id number])2020-02-07 17:18:00 Test Item Value Reference Range Interpretation Comments NA (test code = 141 mmol/L 135-145 5839006176) K (test code = 4.3 mmol/L 3.5-5 4156131919) CL (test code = 103 mmol/L 98-108 6297916545) CO2 TOTAL (test code = 30 mmol/L 23-31 3351683915) AGAP (test code = 2-16 1920618000) BUN (test code = 13 mg/dL 7-23 9493820304) GLUCOSE (test code = 91 mg/dL 70-110 0108528000) CREATININE (test code = 0.80 mg/dL 0.6-1.25 6423339818) TOTAL BILI (test code = 0.6 mg/dL 0.1-1.1 6653491863) CALCIUM (test code = 9.7 mg/dL 8.6-10.6 8738548986) T PROTEIN (test code = 5.6 g/dL 6.3-8.2 L 3380342538) ALBUMIN (test code = 3.4 g/dL 3.5-5 L 9151604673) ALK PHOS (test code = 76 U/L 34-122 3008665219) ALTv (test code = 15 U/L 5-50 1742-6) AST(SGOT) (test code = 17 U/L 13-40 4897577541) eGFR Calculation mL/min/1.73m2 (Non-) (test code = 5823960953) eGFR Calculation mL/min/1.73m2 () (test code = 8678661107) JOEY (test code = JOEY) Association of [...] tests). Lab Interpretation Abnormal (test code = 87638-6) [facility] METABOLIC PANEL ([id number])2020-02-07 17:18:00 Test Item Value Reference Range Interpretation Comments NA (test code = 141 mmol/L 135-145 8744606750) K (test code = 4.3 mmol/L 3.5-5 4029956428) CL (test code = 103 mmol/L 98-108 2721451890) CO2 TOTAL (test code = 30 mmol/L 23-31 2033765221) AGAP (test code = 2-16 6460582873) BUN (test code = 13 mg/dL 7-23 3039764963) GLUCOSE (test code = 91 mg/dL 70-110 1218844541) CREATININE (test code = 0.80 mg/dL 0.6-1.25 9043600534) TOTAL BILI (test code = 0.6 mg/dL 0.1-1.8 2626968534) CALCIUM (test code = 9.7 mg/dL 8.6-10.6 5916107162) T PROTEIN (test code = 5.6 g/dL 6.3-8.2 L 4299193706) ALBUMIN (test code = 3.4 g/dL 3.5-5 L 3895959447) ALK PHOS (test code = 76 U/L 34-122 8731685857) ALTv (test code = 15 U/L 5-50 1742-6) AST(SGOT) (test code = 17 U/L 13-40 5983755699) eGFR Calculation mL/min/1.73m2 (Non-) (test code = 8893994009) eGFR Calculation mL/min/1.73m2 () (test code = 7271149932) JOEY (test code = JOEY) Association of [...] tests). Lab Interpretation Abnormal (test code = 57422-3) [facility] ([id number][facility]2020-02-07 17:18:00 Test Item Value Reference Range Interpretation Comments NA (test code = 141 mmol/L 135-145 9540041225) K (test code = 4.3 mmol/L 3.5-5 6412442603) CL (test code = 103 mmol/L 98-108 6390347621) CO2 TOTAL (test code = 30 mmol/L 23-31 0009926869) AGAP (test code = 2-16 4793230768) BUN (test code = 13 mg/dL 7-23 2299136133) GLUCOSE (test code = 91 mg/dL 70-110 1403827303) CREATININE (test code = 0.80 mg/dL 0.6-1.25 3730195608) TOTAL BILI (test code = 0.6 mg/dL 0.1-1.9 5161114889) CALCIUM (test code = 9.7 mg/dL 8.6-10.6 3239947918) T PROTEIN (test code = 5.6 g/dL 6.3-8.2 L 3164819621) ALBUMIN (test code = 3.4 g/dL 3.5-5 L 9814758490) ALK PHOS (test code = 76 U/L 34-122 7976680184) ALTv (test code = 15 U/L 5-50 1742-6) AST(SGOT) (test code = 17 U/L 13-40 3825317289) eGFR Calculation mL/min/1.73m2 (Non-) (test code = 6258559701) eGFR Calculation mL/min/1.73m2 () (test code = 1722367639) JOEY (test code = JOEY) Association of [...] tests). Lab Interpretation Abnormal (test code = 84328-7) [facility] METABOLIC PANEL ([id number])2020-02-07 17:18:00 Test Item Value Reference Range Interpretation Comments NA (test code = 141 mmol/L 135-145 1410333515) K (test code = 4.3 mmol/L 3.5-5 5170828547) CL (test code = 103 mmol/L 98-108 8234376499) CO2 TOTAL (test code = 30 mmol/L 23-31 9610558230) AGAP (test code = 2-16 7890903665) BUN (test code = 13 mg/dL 7-23 5523562352) GLUCOSE (test code = 91 mg/dL 70-110 0679359622) CREATININE (test code = 0.80 mg/dL 0.6-1.25 5266422226) TOTAL BILI (test code = 0.6 mg/dL 0.1-1.5 3825113548) CALCIUM (test code = 9.7 mg/dL 8.6-10.6 4045018933) T PROTEIN (test code = 5.6 g/dL 6.3-8.2 L 3610583328) ALBUMIN (test code = 3.4 g/dL 3.5-5 L 5024878160) ALK PHOS (test code = 76 U/L 34-122 2920265954) ALTv (test code = 15 U/L 5-50 1742-6) AST(SGOT) (test code = 17 U/L 13-40 5078648341) eGFR Calculation mL/min/1.73m2 (Non-) (test code = 4500217427) eGFR Calculation mL/min/1.73m2 () (test code = 0796586364) JOEY (test code = JOEY) Association of [...] tests). Lab Interpretation Abnormal (test code = 70732-9) [facility]. METABOLIC PANEL ([id number])2020-02-07 17:18:00 Test Item Value Reference Range Interpretation Comments NA (test code = 141 mmol/L 135-145 2511107852) K (test code = 4.3 mmol/L 3.5-5 9464600910) CL (test code = 103 mmol/L 98-108 2083044352) CO2 TOTAL (test code = 30 mmol/L 23-31 2109307180) AGAP (test code = 2-16 9926881282) BUN (test code = 13 mg/dL 7-23 8375249959) GLUCOSE (test code = 91 mg/dL 70-110 5617654003) CREATININE (test code = 0.80 mg/dL 0.6-1.25 7663532230) TOTAL BILI (test code = 0.6 mg/dL 0.1-1.4 0009300305) CALCIUM (test code = 9.7 mg/dL 8.6-10.6 5834486898) T PROTEIN (test code = 5.6 g/dL 6.3-8.2 L 5725742826) ALBUMIN (test code = 3.4 g/dL 3.5-5 L 0120039584) ALK PHOS (test code = 76 U/L 34-122 9346201172) ALTv (test code = 15 U/L 5-50 1742-6) AST(SGOT) (test code = 17 U/L 13-40 9014176622) eGFR Calculation mL/min/1.73m2 (Non-) (test code = 1549767128) eGFR Calculation mL/min/1.73m2 () (test code = 9621427392) JOEY (test code = JOEY) Association of [...] tests). Lab Interpretation Abnormal (test code = 32467-1) [facility]. METABOLIC PANEL ([id number])2020-02-07 17:18:00 Test Item Value Reference Range Interpretation Comments NA (test code = 141 mmol/L 135-145 1334512326) K (test code = 4.3 mmol/L 3.5-5 0932571581) CL (test code = 103 mmol/L 98-108 4738590913) CO2 TOTAL (test code = 30 mmol/L 23-31 7906070607) AGAP (test code = 2-16 1663738740) BUN (test code = 13 mg/dL 7-23 1110469012) GLUCOSE (test code = 91 mg/dL 70-110 5939652153) CREATININE (test code = 0.80 mg/dL 0.6-1.25 6127169203) TOTAL BILI (test code = 0.6 mg/dL 0.1-1.4 3514164509) CALCIUM (test code = 9.7 mg/dL 8.6-10.6 9191972817) T PROTEIN (test code = 5.6 g/dL 6.3-8.2 L 3050993384) ALBUMIN (test code = 3.4 g/dL 3.5-5 L 5599628393) ALK PHOS (test code = 76 U/L 34-122 4669879026) ALTv (test code = 15 U/L 5-50 1742-6) AST(SGOT) (test code = 17 U/L 13-40 7661142635) eGFR Calculation mL/min/1.73m2 (Non-) (test code = 5716943026) eGFR Calculation mL/min/1.73m2 () (test code = 4367414797) JOEY (test code = JOEY) Association of [...] tests). Lab Interpretation Abnormal (test code = 37206-1) [facility]. METABOLIC PANEL ([id number])2020-02-07 17:18:00 Test Item Value Reference Range Interpretation Comments NA (test code = 141 mmol/L 135-145 0189537067) K (test code = 4.3 mmol/L 3.5-5 7759167826) CL (test code = 103 mmol/L 98-108 2160643708) CO2 TOTAL (test code = 30 mmol/L 23-31 2436530868) AGAP (test code = 2-16 6976698575) BUN (test code = 13 mg/dL 7-23 6991733993) GLUCOSE (test code = 91 mg/dL 70-110 3502215512) CREATININE (test code = 0.80 mg/dL 0.6-1.25 2242408184) TOTAL BILI (test code = 0.6 mg/dL 0.1-1.4 3788826216) CALCIUM (test code = 9.7 mg/dL 8.6-10.6 4429520440) T PROTEIN (test code = 5.6 g/dL 6.3-8.2 L 8738858663) ALBUMIN (test code = 3.4 g/dL 3.5-5 L 6714694308) ALK PHOS (test code = 76 U/L 34-122 3588054611) ALTv (test code = 15 U/L 5-50 1742-6) AST(SGOT) (test code = 17 U/L 13-40 5628110042) eGFR Calculation mL/min/1.73m2 (Non-) (test code = 4594410060) eGFR Calculation mL/min/1.73m2 () (test code = 6886748510) JOEY (test code = JOEY) Association of [...] tests). Lab Interpretation Abnormal (test code = 68636-7) [facility] ([id number][facility]2020-02-07 17:18:00 Test Item Value Reference Range Interpretation Comments NA (test code = 141 mmol/L 135-145 9346418781) K (test code = 4.3 mmol/L 3.5-5 3212101537) CL (test code = 103 mmol/L 98-108 4114199229) CO2 TOTAL (test code = 30 mmol/L 23-31 7566547006) AGAP (test code = 2-16 9036062320) BUN (test code = 13 mg/dL 7-23 7627661640) GLUCOSE (test code = 91 mg/dL 70-110 2449536478) CREATININE (test code = 0.80 mg/dL 0.6-1.25 1032500843) TOTAL BILI (test code = 0.6 mg/dL 0.1-1.4 3346143321) CALCIUM (test code = 9.7 mg/dL 8.6-10.6 2083799930) T PROTEIN (test code = 5.6 g/dL 6.3-8.2 L 6919609889) ALBUMIN (test code = 3.4 g/dL 3.5-5 L 1538094978) ALK PHOS (test code = 76 U/L 34-122 9393437596) ALTv (test code = 15 U/L 5-50 1742-6) AST(SGOT) (test code = 17 U/L 13-40 7617853967) eGFR Calculation mL/min/1.73m2 (Non-) (test code = 6497674446) eGFR Calculation mL/min/1.73m2 () (test code = 5193395796) JOEY (test code = JOEY) Association of [...] tests). Lab Interpretation Abnormal (test code = 76469-9) [facility] METABOLIC PANEL ([id number])2020-02-07 17:18:00 Test Item Value Reference Range Interpretation Comments NA (test code = 141 mmol/L 135-145 4799783068) K (test code = 4.3 mmol/L 3.5-5 1786739437) CL (test code = 103 mmol/L 98-108 9576601876) CO2 TOTAL (test code = 30 mmol/L 23-31 6098899605) AGAP (test code = 2-16 4181943664) BUN (test code = 13 mg/dL 7-23 3318643047) GLUCOSE (test code = 91 mg/dL 70-110 0689391486) CREATININE (test code = 0.80 mg/dL 0.6-1.25 3540895117) TOTAL BILI (test code = 0.6 mg/dL 0.1-1.8 0490341799) CALCIUM (test code = 9.7 mg/dL 8.6-10.6 1516579320) T PROTEIN (test code = 5.6 g/dL 6.3-8.2 L 9226180509) ALBUMIN (test code = 3.4 g/dL 3.5-5 L 1028978958) ALK PHOS (test code = 76 U/L 34-122 0437599188) ALTv (test code = 15 U/L 5-50 1742-6) AST(SGOT) (test code = 17 U/L 13-40 3368416454) eGFR Calculation mL/min/1.73m2 (Non-) (test code = 8709062132) eGFR Calculation mL/min/1.73m2 () (test code = 3645250610) JOEY (test code = JOEY) Association of [...] tests). Lab Interpretation Abnormal (test code = 25153-8) [facility] [id number] 17:06:00 Test Item Value Reference Range Interpretation Comments VALPROIC A (test code = 38 ug/mL 50-100 L 4480471131) JOEY (test code = JOEY) Toxic Range: ?Greater than 100 ug/mL Lab Interpretation (test Abnormal code = 13081-3) [facility] [id number] 17:06:00 Test Item Value Reference Range Interpretation Comments VALPROIC A (test code = 38 ug/mL 50-100 L 1565906347) JOEY (test code = JOEY) Toxic Range: ?Greater than 100 ug/mL Lab Interpretation (test Abnormal code = 44519-9) [facility] [id number] 17:06:00 Test Item Value Reference Range Interpretation Comments VALPROIC A (test code = 38 ug/mL 50-100 L 6253024685) JOEY (test code = JOEY) Toxic Range: ?Greater than 100 ug/mL Lab Interpretation (test Abnormal code = 65430-0) [facility] [id number] 17:06:00 Test Item Value Reference Range Interpretation Comments VALPROIC A (test code = 38 ug/mL 50-100 L 1224588107) JOEY (test code = JOEY) Toxic Range: ?Greater than 100 ug/mL Lab Interpretation (test Abnormal code = 87745-8) [facility] [id number] 17:06:00 Test Item Value Reference Range Interpretation Comments VALPROIC A (test code = 38 ug/mL 50-100 L 0626450637) JOEY (test code = JOEY) Toxic Range: ?Greater than 100 ug/mL Lab Interpretation (test Abnormal code = 69761-1) [facility] [id number] 17:06:00 Test Item Value Reference Range Interpretation Comments VALPROIC A (test code = 38 ug/mL 50-100 L 9273771663) JOEY (test code = JOEY) Toxic Range: ?Greater than 100 ug/mL Lab Interpretation (test Abnormal code = 92695-3) [facility] [id number] 17:06:00 Test Item Value Reference Range Interpretation Comments VALPROIC A (test code = 38 ug/mL 50-100 L 0747605497) JOEY (test code = JOEY) Toxic Range: ?Greater than 100 ug/mL Lab Interpretation (test Abnormal code = 37715-6) [facility] [id number] 17:06:00 Test Item Value Reference Range Interpretation Comments VALPROIC A (test code = 38 ug/mL 50-100 L 2165058744) JOEY (test code = JOEY) Toxic Range: ?Greater than 100 ug/mL Lab Interpretation (test Abnormal code = 49656-1) [facility] [id number] 17:06:00 Test Item Value Reference Range Interpretation Comments VALPROIC A (test code = 38 ug/mL 50-100 L 9786186497) JOEY (test code = JOEY) Toxic Range: ?Greater than 100 ug/mL Lab Interpretation (test Abnormal code = 97669-8) [facility] [id number] 17:06:00 Test Item Value Reference Range Interpretation Comments VALPROIC A (test code = 38 ug/mL 50-100 L 7951180941) JOEY (test code = JOEY) Toxic Range: ?Greater than 100 ug/mL Lab Interpretation (test Abnormal code = 90766-9) [facility] [id number] 17:06:00 Test Item Value Reference Range Interpretation Comments VALPROIC A (test code = 38 ug/mL 50-100 L 0509765976) JOEY (test code = JOEY) Toxic Range: ?Greater than 100 ug/mL Lab Interpretation (test Abnormal code = 33329-1) [facility] [id number] 17:06:00 Test Item Value Reference Range Interpretation Comments VALPROIC A (test code = 38 ug/mL 50-100 L 7354214323) JOEY (test code = JOEY) Toxic Range: ?Greater than 100 ug/mL Lab Interpretation (test Abnormal code = 08559-7) [facility] [id number] 17:06:00 Test Item Value Reference Range Interpretation Comments VALPROIC A (test code = 38 ug/mL 50-100 L 5634912767) JOEY (test code = JOEY) Toxic Range: ?Greater than 100 ug/mL Lab Interpretation (test Abnormal code = 52811-7) [facility] [id number] 17:06:00 Test Item Value Reference Range Interpretation Comments VALPROIC A (test code = 38 ug/mL 50-100 L 5004542364) JOEY (test code = JOEY) Toxic Range: ?Greater than 100 ug/mL Lab Interpretation (test Abnormal code = 91540-0) [facility] [id number] 17:06:00 Test Item Value Reference Range Interpretation Comments VALPROIC A (test code = 38 ug/mL 50-100 L 8109057021) JOEY (test code = JOEY) Toxic Range: ?Greater than 100 ug/mL Lab Interpretation (test Abnormal code = 25229-8) [facility]A1C)2020-02-07 16:23:00 Test Item Value Reference Range Interpretation Comments HGB A1C (test code = 5.1 % 4-6 4548-4) JOEY (test code = JOEY) %A1C (NGSP) Interpretation (ADA)4.8-5.6 ? ? Normal or (Non-Diabetic Range)5.7-6.4 ? ? Increased Risk (Pre-Diabetic)>6.5 ?Diabetes Indicated Lab Interpretation Normal (test code = 44311-9) [facility]2020-02-07 16:23:00 Test Item Value Reference Range Interpretation Comments HGB A1C (test code = 5.1 % 4-6 4548-4) JOEY (test code = JOEY) %A1C (NGSP) Interpretation (ADA)4.8-5.6 ? ? Normal or (Non-Diabetic Range)5.7-6.4 ? ? Increased Risk (Pre-Diabetic)>6.5 ?Diabetes Indicated Lab Interpretation Normal (test code = 63705-4) [facility]2020-02-07 16:23:00 Test Item Value Reference Range Interpretation Comments HGB A1C (test code = 5.1 % 4-6 4548-4) JOEY (test code = JOEY) %A1C (NGSP) Interpretation (ADA)4.8-5.6 ? ? Normal or (Non-Diabetic Range)5.7-6.4 ? ? Increased Risk (Pre-Diabetic)>6.5 ?Diabetes Indicated Lab Interpretation Normal (test code = 31804-0) [facility]2020-02-07 16:23:00 Test Item Value Reference Range Interpretation Comments HGB A1C (test code = 5.1 % 4-6 4548-4) JOEY (test code = JOEY) %A1C (NGSP) Interpretation (ADA)4.8-5.6 ? ? Normal or (Non-Diabetic Range)5.7-6.4 ? ? Increased Risk (Pre-Diabetic)>6.5 ?Diabetes Indicated Lab Interpretation Normal (test code = 45085-5) [facility]2020-02-07 16:23:00 Test Item Value Reference Range Interpretation Comments HGB A1C (test code = 5.1 % 4-6 4548-4) JOEY (test code = JOEY) %A1C (NGSP) Interpretation (ADA)4.8-5.6 ? ? Normal or (Non-Diabetic Range)5.7-6.4 ? ? Increased Risk (Pre-Diabetic)>6.5 ?Diabetes Indicated Lab Interpretation Normal (test code = 39641-0) [facility]2020-02-07 16:23:00 Test Item Value Reference Range Interpretation Comments HGB A1C (test code = 5.1 % 4-6 4548-4) JOEY (test code = JOEY) %A1C (NGSP) Interpretation (ADA)4.8-5.6 ? ? Normal or (Non-Diabetic Range)5.7-6.4 ? ? Increased Risk (Pre-Diabetic)>6.5 ?Diabetes Indicated Lab Interpretation Normal (test code = 00100-7) [facility]2020-02-07 16:23:00 Test Item Value Reference Range Interpretation Comments HGB A1C (test code = 5.1 % 4-6 4548-4) JOEY (test code = JOEY) %A1C (NGSP) Interpretation (ADA)4.8-5.6 ? ? Normal or (Non-Diabetic Range)5.7-6.4 ? ? Increased Risk (Pre-Diabetic)>6.5 ?Diabetes Indicated Lab Interpretation Normal (test code = 99314-1) [facility]2020-02-07 16:23:00 Test Item Value Reference Range Interpretation Comments HGB A1C (test code = 5.1 % 4-6 4548-4) JOEY (test code = JOEY) %A1C (NGSP) Interpretation (ADA)4.8-5.6 ? ? Normal or (Non-Diabetic Range)5.7-6.4 ? ? Increased Risk (Pre-Diabetic)>6.5 ?Diabetes Indicated Lab Interpretation Normal (test code = 06233-7) [facility]2020-02-07 16:23:00 Test Item Value Reference Range Interpretation Comments HGB A1C (test code = 5.1 % 4-6 4548-4) JOEY (test code = JOEY) %A1C (NGSP) Interpretation (ADA)4.8-5.6 ? ? Normal or (Non-Diabetic Range)5.7-6.4 ? ? Increased Risk (Pre-Diabetic)>6.5 ?Diabetes Indicated Lab Interpretation Normal (test code = 32769-2) [facility]2020-02-07 16:23:00 Test Item Value Reference Range Interpretation Comments HGB A1C (test code = 5.1 % 4-6 4548-4) JOEY (test code = JOEY) %A1C (NGSP) Interpretation (ADA)4.8-5.6 ? ? Normal or (Non-Diabetic Range)5.7-6.4 ? ? Increased Risk (Pre-Diabetic)>6.5 ?Diabetes Indicated Lab Interpretation Normal (test code = 14863-1) [facility]2020-02-07 16:23:00 Test Item Value Reference Range Interpretation Comments HGB A1C (test code = 5.1 % 4-6 4548-4) JOEY (test code = JOEY) %A1C (NGSP) Interpretation (ADA)4.8-5.6 ? ? Normal or (Non-Diabetic Range)5.7-6.4 ? ? Increased Risk (Pre-Diabetic)>6.5 ?Diabetes Indicated Lab Interpretation Normal (test code = 23459-7) [facility]2020-02-07 16:23:00 Test Item Value Reference Range Interpretation Comments HGB A1C (test code = 5.1 % 4-6 4548-4) JOEY (test code = JOEY) %A1C (NGSP) Interpretation (ADA)4.8-5.6 ? ? Normal or (Non-Diabetic Range)5.7-6.4 ? ? Increased Risk (Pre-Diabetic)>6.5 ?Diabetes Indicated Lab Interpretation Normal (test code = 75776-8) [facility]2020-02-07 16:23:00 Test Item Value Reference Range Interpretation Comments HGB A1C (test code = 5.1 % 4-6 4548-4) JOEY (test code = JOEY) %A1C (NGSP) Interpretation (ADA)4.8-5.6 ? ? Normal or (Non-Diabetic Range)5.7-6.4 ? ? Increased Risk (Pre-Diabetic)>6.5 ?Diabetes Indicated Lab Interpretation Normal (test code = 64274-9) [facility]2020-02-07 16:23:00 Test Item Value Reference Range Interpretation Comments HGB A1C (test code = 5.1 % 4-6 4548-4) JOEY (test code = JOEY) %A1C (NGSP) Interpretation (ADA)4.8-5.6 ? ? Normal or (Non-Diabetic Range)5.7-6.4 ? ? Increased Risk (Pre-Diabetic)>6.5 ?Diabetes Indicated Lab Interpretation Normal (test code = 99552-1) [facility]2020-02-07 16:23:00 Test Item Value Reference Range Interpretation Comments HGB A1C (test code = 5.1 % 4-6 4548-4) JOEY (test code = JOEY) %A1C (NGSP) Interpretation (ADA)4.8-5.6 ? ? Normal or (Non-Diabetic Range)5.7-6.4 ? ? Increased Risk (Pre-Diabetic)>6.5 ?Diabetes Indicated Lab Interpretation Normal (test code = 36198-7) [facility] WITH [id number] 15:41:00 Test Item Value Reference Range Interpretation [...] RDW-SD (test code = 51.1 fL 38.5-51.6 71093-1) RDW-CV (test code = 13.9 % 12.1-15.4 788-0) PLT (test code = See_Comment [Automated 777-3) message] The sy stem which generated this result transmitted reference range : 150 - 328 10*3/ ?L. The reference r sarahy was not used to interpret this result as normal/abnormal . MPV (test code = 10.3 fL 9.8-13 25811-7) NRBC/100 WBC (test See_Comment [Automat ed code = 0606047101) message] The system which generated this result transmitted reference range : 0.0 - 10.0 /100 WBCs. The refer ence range was not u sed to interpret th is result as normal/abnormal . NRBC x10^3 (test code <0.01 See_Comment [Auto mated = 4720100211) message] The s ystem which generated this result transmitted reference range : 10*3/?L. The reference range was not used to interpret this result as normal/abnormal . GRAN MAT (NEUT) % 64.3 % (test code = 770-8) IMM GRAN % (test code 0.30 % = 6109321662) LYMPH % (test code = 22.6 % 736-9) MONO % (test code = 8.8 % 5905-5) EOS % (test code = 3.0 % 713-8) BASO % (test code = 1.0 % 706-2) GRAN MAT x10^3(ANC) 4.02 10*3/uL 1.99-6.95 (test code = 3927460360) IMM GRAN x10^3 (test <0.03 0-0.06 code = 4156004916) LYMPH x10^3 (test code 1.41 10*3/uL 1.09-3.23 = 731-0) MONO x10^3 (test code 0.55 10*3/uL 0.36-1.02 = 742-7) EOS x10^3 (test code = 0.19 10*3/uL 0.06-0.53 711-2) BASO x10^3 (test code 0.06 10*3/uL 0.01-0.09 = 704-7) Lab Interpretation Abnormal (test code = 97400-2) [facility] WITH [id number] 15:41:00 Test Item Value Reference Range Interpretation Comments WBC (test code = See_Comment [Automated 3690-2) message] The sy stem which generated this result transmitted reference range : 4.20 - 10.70 10*3/?L. The reference range was not used to interpret this result as normal/abnormal . RBC (test code = See_Comment [Automated 459-8) message] The sy stem which generated this [...] RDW-SD (test code = 51.1 fL 38.5-51.6 26129-4) RDW-CV (test code = 13.9 % 12.1-15.4 788-0) PLT (test code = See_Comment [Automated 777-3) message] The sy stem which generated this result transmitted reference range : 150 - 328 10*3/ ?L. The reference r sarahy was not used to interpret this result as normal/abnormal . MPV (test code = 10.3 fL 9.8-13 17735-4) NRBC/100 WBC (test See_Comment [Automat ed code = 8328302579) message] The system which generated this result transmitted reference range : 0.0 - 10.0 /100 WBCs. The refer ence range was not u sed to interpret th is result as normal/abnormal . NRBC x10^3 (test code <0.01 See_Comment [Auto mated = 9471874813) message] The s ystem which generated this result transmitted reference range : 10*3/?L. The reference range was not used to interpret this result as normal/abnormal . GRAN MAT (NEUT) % 64.3 % (test code = 770-8) IMM GRAN % (test code 0.30 % = 6828910660) LYMPH % (test code = 22.6 % 736-9) MONO % (test code = 8.8 % 5905-5) EOS % (test code = 3.0 % 713-8) BASO % (test code = 1.0 % 706-2) GRAN MAT x10^3(ANC) 4.02 10*3/uL 1.99-6.95 (test code = 6845955089) IMM GRAN x10^3 (test <0.03 0-0.06 code = 2017487485) LYMPH x10^3 (test code 1.41 10*3/uL 1.09-3.23 = 731-0) MONO x10^3 (test code 0.55 10*3/uL 0.36-1.02 = 742-7) EOS x10^3 (test code = 0.19 10*3/uL 0.06-0.53 711-2) BASO x10^3 (test code 0.06 10*3/uL 0.01-0.09 = 704-7) Lab Interpretation Abnormal (test code = 35337-9) [facility] WITH [id number] 15:41:00 Test Item Value Reference Range Interpretation [...] RDW-SD (test code = 51.1 fL 38.5-51.6 12445-0) RDW-CV (test code = 13.9 % 12.1-15.4 788-0) PLT (test code = See_Comment [Automated 777-3) message] The sy stem which generated this result transmitted reference range : 150 - 328 10*3/ ?L. The reference r sarahy was not used to interpret this result as normal/abnormal . MPV (test code = 10.3 fL 9.8-13 94454-3) NRBC/100 WBC (test See_Comment [Automat ed code = 7142939627) message] The system which generated this result transmitted reference range : 0.0 - 10.0 /100 WBCs. The refer ence range was not u sed to interpret th is result as normal/abnormal . NRBC x10^3 (test code <0.01 See_Comment [Auto mated = 2746408013) message] The s ystem which generated this result transmitted reference range : 10*3/?L. The reference range was not used to interpret this result as normal/abnormal . GRAN MAT (NEUT) % 64.3 % (test code = 770-8) IMM GRAN % (test code 0.30 % = 0698139864) LYMPH % (test code = 22.6 % 736-9) MONO % (test code = 8.8 % 5905-5) EOS % (test code = 3.0 % 713-8) BASO % (test code = 1.0 % 706-2) GRAN MAT x10^3(ANC) 4.02 10*3/uL 1.99-6.95 (test code = 0234672484) IMM GRAN x10^3 (test <0.03 0-0.06 code = 3605892839) LYMPH x10^3 (test code 1.41 10*3/uL 1.09-3.23 = 731-0) MONO x10^3 (test code 0.55 10*3/uL 0.36-1.02 = 742-7) EOS x10^3 (test code = 0.19 10*3/uL 0.06-0.53 711-2) BASO x10^3 (test code 0.06 10*3/uL 0.01-0.09 = 704-7) Lab Interpretation Abnormal (test code = 45271-4) [facility] WITH [id number] 15:41:00 Test Item Value Reference Range Interpretation Comments WBC (test code = See_Comment [Automated 6369-2) message] The sy stem which generated this result transmitted reference range : 4.20 - 10.70 10*3/?L. The reference range was not used to interpret this result as normal/abnormal . RBC (test code = See_Comment [Automated 200-8) message] The sy stem which generated this [...] RDW-SD (test code = 51.1 fL 38.5-51.6 95985-8) RDW-CV (test code = 13.9 % 12.1-15.4 788-0) PLT (test code = See_Comment [Automated 777-3) message] The sy stem which generated this result transmitted reference range : 150 - 328 10*3/ ?L. The reference r sarahy was not used to interpret this result as normal/abnormal . MPV (test code = 10.3 fL 9.8-13 95433-0) NRBC/100 WBC (test See_Comment [Automat ed code = 3163625811) message] The system which generated this result transmitted reference range : 0.0 - 10.0 /100 WBCs. The refer ence range was not u sed to interpret th is result as normal/abnormal . NRBC x10^3 (test code <0.01 See_Comment [Auto mated = 5688384515) message] The s ystem which generated this result transmitted reference range : 10*3/?L. The reference range was not used to interpret this result as normal/abnormal . GRAN MAT (NEUT) % 64.3 % (test code = 770-8) IMM GRAN % (test code 0.30 % = [id number]) LYMPH % (test code = 22.6 % 736-9) MONO % (test code = 8.8 % 5905-5) EOS % (test code = 3.0 % 713-8) BASO % (test code = 1.0 % 706-2) GRAN MAT x10^3(ANC) 4.02 10*3/uL 1.99-6.95 (test code = [id number]) IMM GRAN x10^3 (test <0.03 0-0.06 code = [id number]) LYMPH x10^3 (test code 1.41 10*3/uL 1.09-3.23 = 731-0) MONO x10^3 (test code 0.55 10*3/uL 0.36-1.02 = 742-7) EOS x10^3 (test code = 0.19 10*3/uL 0.06-0.53 711-2) BASO x10^3 (test code 0.06 10*3/uL 0.01-0.09 = 704-7) Lab Interpretation Abnormal (test code = 96878-2) [facility] WITH [id number] 15:41:00 Test Item Value Reference Range Interpretation [...] RDW-SD (test code = 51.1 fL 38.5-51.6 26344-3) RDW-CV (test code = 13.9 % 12.1-15.4 788-0) PLT (test code = See_Comment [Automated 777-3) message] The sy stem which generated this result transmitted reference range : 150 - 328 10*3/ ?L. The reference r sarahy was not used to interpret this result as normal/abnormal . MPV (test code = 10.3 fL 9.8-13 73789-8) NRBC/100 WBC (test See_Comment [Automat ed code = [id number]) message] The system which generated this result transmitted reference range : 0.0 - 10.0 /100 WBCs. The refer ence range was not u sed to interpret th is result as normal/abnormal . NRBC x10^3 (test code <0.01 See_Comment [Auto mated = [id number]) message] The s ystem which generated this result transmitted reference range : 10*3/?L. The reference range was not used to interpret this result as normal/abnormal . GRAN MAT (NEUT) % 64.3 % (test code = 770-8) IMM GRAN % (test code 0.30 % = [id number]) LYMPH % (test code = 22.6 % 736-9) MONO % (test code = 8.8 % 5905-5) EOS % (test code = 3.0 % 713-8) BASO % (test code = 1.0 % 706-2) GRAN MAT x10^3(ANC) 4.02 10*3/uL 1.99-6.95 (test code = [id number]) IMM GRAN x10^3 (test <0.03 0-0.06 code = [id number]) LYMPH x10^3 (test code 1.41 10*3/uL 1.09-3.23 = 731-0) MONO x10^3 (test code 0.55 10*3/uL 0.36-1.02 = 742-7) EOS x10^3 (test code = 0.19 10*3/uL 0.06-0.53 711-2) BASO x10^3 (test code 0.06 10*3/uL 0.01-0.09 = 704-7) Lab Interpretation Abnormal (test code = 25067-4) [facility] WITH [id number] 15:41:00 Test Item Value Reference Range Interpretation [...] RDW-SD (test code = 51.1 fL 38.5-51.6 63510-5) RDW-CV (test code = 13.9 % 12.1-15.4 788-0) PLT (test code = See_Comment [Automated 777-3) message] The sy stem which generated this result transmitted reference range : 150 - 328 10*3/ ?L. The reference r sarahy was not used to interpret this result as normal/abnormal . MPV (test code = 10.3 fL 9.8-13 53812-5) NRBC/100 WBC (test See_Comment [Automat ed code = 2674890534) message] The system which generated this result transmitted reference range : 0.0 - 10.0 /100 WBCs. The refer ence range was not u sed to interpret th is result as normal/abnormal . NRBC x10^3 (test code <0.01 See_Comment [Auto mated = 5312898999) message] The s ystem which generated this result transmitted reference range : 10*3/?L. The reference range was not used to interpret this result as normal/abnormal . GRAN MAT (NEUT) % 64.3 % (test code = 770-8) IMM GRAN % (test code 0.30 % = 5364223089) LYMPH % (test code = 22.6 % 736-9) MONO % (test code = 8.8 % 5905-5) EOS % (test code = 3.0 % 713-8) BASO % (test code = 1.0 % 706-2) GRAN MAT x10^3(ANC) 4.02 10*3/uL 1.99-6.95 (test code = 1383047545) IMM GRAN x10^3 (test <0.03 0-0.06 code = 1891482928) LYMPH x10^3 (test code 1.41 10*3/uL 1.09-3.23 = 731-0) MONO x10^3 (test code 0.55 10*3/uL 0.36-1.02 = 742-7) EOS x10^3 (test code = 0.19 10*3/uL 0.06-0.53 711-2) BASO x10^3 (test code 0.06 10*3/uL 0.01-0.09 = 704-7) Lab Interpretation Abnormal (test code = 95965-4) [facility] WITH [id number] 15:41:00 Test Item Value Reference Range Interpretation Comments WBC (test code = See_Comment [Automated 3190-2) message] The sy stem which generated this result transmitted reference range : 4.20 - 10.70 10*3/?L. The reference range was not used to interpret this result as normal/abnormal . RBC (test code = See_Comment [Automated 469-8) message] The sy stem which generated this [...] RDW-SD (test code = 51.1 fL 38.5-51.6 55719-0) RDW-CV (test code = 13.9 % 12.1-15.4 788-0) PLT (test code = See_Comment [Automated 777-3) message] The sy stem which generated this result transmitted reference range : 150 - 328 10*3/ ?L. The reference r sarahy was not used to interpret this result as normal/abnormal . MPV (test code = 10.3 fL 9.8-13 32326-5) NRBC/100 WBC (test See_Comment [Automat ed code = 0971264900) message] The system which generated this result transmitted reference range : 0.0 - 10.0 /100 WBCs. The refer ence range was not u sed to interpret th is result as normal/abnormal . NRBC x10^3 (test code <0.01 See_Comment [Auto mated = 4789299860) message] The s ystem which generated this result transmitted reference range : 10*3/?L. The reference range was not used to interpret this result as normal/abnormal . GRAN MAT (NEUT) % 64.3 % (test code = 770-8) IMM GRAN % (test code 0.30 % = 8165652281) LYMPH % (test code = 22.6 % 736-9) MONO % (test code = 8.8 % 5905-5) EOS % (test code = 3.0 % 713-8) BASO % (test code = 1.0 % 706-2) GRAN MAT x10^3(ANC) 4.02 10*3/uL 1.99-6.95 (test code = 0009839815) IMM GRAN x10^3 (test <0.03 0-0.06 code = 2019188701) LYMPH x10^3 (test code 1.41 10*3/uL 1.09-3.23 = 731-0) MONO x10^3 (test code 0.55 10*3/uL 0.36-1.02 = 742-7) EOS x10^3 (test code = 0.19 10*3/uL 0.06-0.53 711-2) BASO x10^3 (test code 0.06 10*3/uL 0.01-0.09 = 704-7) Lab Interpretation Abnormal (test code = 32826-8) [facility] WITH [id number] 15:41:00 Test Item Value Reference Range Interpretation [...] RDW-SD (test code = 51.1 fL 38.5-51.6 88168-3) RDW-CV (test code = 13.9 % 12.1-15.4 788-0) PLT (test code = See_Comment [Automated 777-3) message] The sy stem which generated this result transmitted reference range : 150 - 328 10*3/ ?L. The reference r sarahy was not used to interpret this result as normal/abnormal . MPV (test code = 10.3 fL 9.8-13 85361-7) NRBC/100 WBC (test See_Comment [Automat ed code = 8565316744) message] The system which generated this result transmitted reference range : 0.0 - 10.0 /100 WBCs. The refer ence range was not u sed to interpret th is result as normal/abnormal . NRBC x10^3 (test code <0.01 See_Comment [Auto mated = 6061839754) message] The s ystem which generated this result transmitted reference range : 10*3/?L. The reference range was not used to interpret this result as normal/abnormal . GRAN MAT (NEUT) % 64.3 % (test code = 770-8) IMM GRAN % (test code 0.30 % = 6707109638) LYMPH % (test code = 22.6 % 736-9) MONO % (test code = 8.8 % 5905-5) EOS % (test code = 3.0 % 713-8) BASO % (test code = 1.0 % 706-2) GRAN MAT x10^3(ANC) 4.02 10*3/uL 1.99-6.95 (test code = 4845092419) IMM GRAN x10^3 (test <0.03 0-0.06 code = 7730096815) LYMPH x10^3 (test code 1.41 10*3/uL 1.09-3.23 = 731-0) MONO x10^3 (test code 0.55 10*3/uL 0.36-1.02 = 742-7) EOS x10^3 (test code = 0.19 10*3/uL 0.06-0.53 711-2) BASO x10^3 (test code 0.06 10*3/uL 0.01-0.09 = 704-7) Lab Interpretation Abnormal (test code = 69569-1) [facility] WITH [id number] 15:41:00 Test Item Value Reference Range Interpretation [...] RDW-SD (test code = 51.1 fL 38.5-51.6 89600-7) RDW-CV (test code = 13.9 % 12.1-15.4 788-0) PLT (test code = See_Comment [Automated 777-3) message] The sy stem which generated this result transmitted reference range : 150 - 328 10*3/ ?L. The reference r sarahy was not used to interpret this result as normal/abnormal . MPV (test code = 10.3 fL 9.8-13 84751-8) NRBC/100 WBC (test See_Comment [Automat ed code = 7832247135) message] The system which generated this result transmitted reference range : 0.0 - 10.0 /100 WBCs. The refer ence range was not u sed to interpret th is result as normal/abnormal . NRBC x10^3 (test code <0.01 See_Comment [Auto mated = 6934737360) message] The s ystem which generated this result transmitted reference range : 10*3/?L. The reference range was not used to interpret this result as normal/abnormal . GRAN MAT (NEUT) % 64.3 % (test code = 770-8) IMM GRAN % (test code 0.30 % = 7015253222) LYMPH % (test code = 22.6 % 736-9) MONO % (test code = 8.8 % 5905-5) EOS % (test code = 3.0 % 713-8) BASO % (test code = 1.0 % 706-2) GRAN MAT x10^3(ANC) 4.02 10*3/uL 1.99-6.95 (test code = 3877045506) IMM GRAN x10^3 (test <0.03 0-0.06 code = 8245101849) LYMPH x10^3 (test code 1.41 10*3/uL 1.09-3.23 = 731-0) MONO x10^3 (test code 0.55 10*3/uL 0.36-1.02 = 742-7) EOS x10^3 (test code = 0.19 10*3/uL 0.06-0.53 711-2) BASO x10^3 (test code 0.06 10*3/uL 0.01-0.09 = 704-7) Lab Interpretation Abnormal (test code = 37497-2) [facility] WITH [id number] 15:41:00 Test Item Value Reference Range Interpretation [...] RDW-SD (test code = 51.1 fL 38.5-51.6 13813-9) RDW-CV (test code = 13.9 % 12.1-15.4 788-0) PLT (test code = See_Comment [Automated 777-3) message] The sy stem which generated this result transmitted reference range : 150 - 328 10*3/ ?L. The reference r sarahy was not used to interpret this result as normal/abnormal . MPV (test code = 10.3 fL 9.8-13 63144-7) NRBC/100 WBC (test See_Comment [Automat ed code = 2228895860) message] The system which generated this result transmitted reference range : 0.0 - 10.0 /100 WBCs. The refer ence range was not u sed to interpret th is result as normal/abnormal . NRBC x10^3 (test code <0.01 See_Comment [Auto mated = 1790867215) message] The s ystem which generated this result transmitted reference range : 10*3/?L. The reference range was not used to interpret this result as normal/abnormal . GRAN MAT (NEUT) % 64.3 % (test code = 770-8) IMM GRAN % (test code 0.30 % = 7197421511) LYMPH % (test code = 22.6 % 736-9) MONO % (test code = 8.8 % 5905-5) EOS % (test code = 3.0 % 713-8) BASO % (test code = 1.0 % 706-2) GRAN MAT x10^3(ANC) 4.02 10*3/uL 1.99-6.95 (test code = 5773136943) IMM GRAN x10^3 (test <0.03 0-0.06 code = 2790427047) LYMPH x10^3 (test code 1.41 10*3/uL 1.09-3.23 = 731-0) MONO x10^3 (test code 0.55 10*3/uL 0.36-1.02 = 742-7) EOS x10^3 (test code = 0.19 10*3/uL 0.06-0.53 711-2) BASO x10^3 (test code 0.06 10*3/uL 0.01-0.09 = 704-7) Lab Interpretation Abnormal (test code = 27402-3) [facility] WITH [id number] 15:41:00 Test Item Value Reference Range Interpretation Comments WBC (test code = See_Comment [Automated 5202-2) message] The sy stem which generated this result transmitted reference range : 4.20 - 10.70 10*3/?L. The reference range was not used to interpret this result as normal/abnormal . RBC (test code = See_Comment [Automated 364-8) message] The sy stem which generated this [...] RDW-SD (test code = 51.1 fL 38.5-51.6 13519-1) RDW-CV (test code = 13.9 % 12.1-15.4 788-0) PLT (test code = See_Comment [Automated 777-3) message] The sy stem which generated this result transmitted reference range : 150 - 328 10*3/ ?L. The reference r sarahy was not used to interpret this result as normal/abnormal . MPV (test code = 10.3 fL 9.8-13 22245-7) NRBC/100 WBC (test See_Comment [Automat ed code = 5388946068) message] The system which generated this result transmitted reference range : 0.0 - 10.0 /100 WBCs. The refer ence range was not u sed to interpret th is result as normal/abnormal . NRBC x10^3 (test code <0.01 See_Comment [Auto mated = 2222721308) message] The s ystem which generated this result transmitted reference range : 10*3/?L. The reference range was not used to interpret this result as normal/abnormal . GRAN MAT (NEUT) % 64.3 % (test code = 770-8) IMM GRAN % (test code 0.30 % = 1994666647) LYMPH % (test code = 22.6 % 736-9) MONO % (test code = 8.8 % 5905-5) EOS % (test code = 3.0 % 713-8) BASO % (test code = 1.0 % 706-2) GRAN MAT x10^3(ANC) 4.02 10*3/uL 1.99-6.95 (test code = 8723749114) IMM GRAN x10^3 (test <0.03 0-0.06 code = 9988979012) LYMPH x10^3 (test code 1.41 10*3/uL 1.09-3.23 = 731-0) MONO x10^3 (test code 0.55 10*3/uL 0.36-1.02 = 742-7) EOS x10^3 (test code = 0.19 10*3/uL 0.06-0.53 711-2) BASO x10^3 (test code 0.06 10*3/uL 0.01-0.09 = 704-7) Lab Interpretation Abnormal (test code = 49042-5) [facility] WITH [id number] 15:41:00 Test Item Value Reference Range Interpretation [...] RDW-SD (test code = 51.1 fL 38.5-51.6 11128-4) RDW-CV (test code = 13.9 % 12.1-15.4 788-0) PLT (test code = See_Comment [Automated 777-3) message] The sy stem which generated this result transmitted reference range : 150 - 328 10*3/ ?L. The reference r sarahy was not used to interpret this result as normal/abnormal . MPV (test code = 10.3 fL 9.8-13 67509-5) NRBC/100 WBC (test See_Comment [Automat ed code = 2146563686) message] The system which generated this result transmitted reference range : 0.0 - 10.0 /100 WBCs. The refer ence range was not u sed to interpret th is result as normal/abnormal . NRBC x10^3 (test code <0.01 See_Comment [Auto mated = 5388768267) message] The s ystem which generated this result transmitted reference range : 10*3/?L. The reference range was not used to interpret this result as normal/abnormal . GRAN MAT (NEUT) % 64.3 % (test code = 770-8) IMM GRAN % (test code 0.30 % = 3278220467) LYMPH % (test code = 22.6 % 736-9) MONO % (test code = 8.8 % 5905-5) EOS % (test code = 3.0 % 713-8) BASO % (test code = 1.0 % 706-2) GRAN MAT x10^3(ANC) 4.02 10*3/uL 1.99-6.95 (test code = 3788894307) IMM GRAN x10^3 (test <0.03 0-0.06 code = 0774641244) LYMPH x10^3 (test code 1.41 10*3/uL 1.09-3.23 = 731-0) MONO x10^3 (test code 0.55 10*3/uL 0.36-1.02 = 742-7) EOS x10^3 (test code = 0.19 10*3/uL 0.06-0.53 711-2) BASO x10^3 (test code 0.06 10*3/uL 0.01-0.09 = 704-7) Lab Interpretation Abnormal (test code = 15972-2) [facility] WITH [id number] 15:41:00 Test Item Value Reference Range Interpretation Comments WBC (test code = See_Comment [Automated 6590-2) message] The sy stem which generated this result transmitted reference range : 4.20 - 10.70 10*3/?L. The reference range was not used to interpret this result as normal/abnormal . RBC (test code = See_Comment [Automated 549-8) message] The sy stem which generated this [...] RDW-SD (test code = 51.1 fL 38.5-51.6 02889-0) RDW-CV (test code = 13.9 % 12.1-15.4 788-0) PLT (test code = See_Comment [Automated 777-3) message] The sy stem which generated this result transmitted reference range : 150 - 328 10*3/ ?L. The reference r sarahy was not used to interpret this result as normal/abnormal . MPV (test code = 10.3 fL 9.8-13 75434-3) NRBC/100 WBC (test See_Comment [Automat ed code = 6830403049) message] The system which generated this result transmitted reference range : 0.0 - 10.0 /100 WBCs. The refer ence range was not u sed to interpret th is result as normal/abnormal . NRBC x10^3 (test code <0.01 See_Comment [Auto mated = 5087224387) message] The s ystem which generated this result transmitted reference range : 10*3/?L. The reference range was not used to interpret this result as normal/abnormal . GRAN MAT (NEUT) % 64.3 % (test code = 770-8) IMM GRAN % (test code 0.30 % = 8657797698) LYMPH % (test code = 22.6 % 736-9) MONO % (test code = 8.8 % 5905-5) EOS % (test code = 3.0 % 713-8) BASO % (test code = 1.0 % 706-2) GRAN MAT x10^3(ANC) 4.02 10*3/uL 1.99-6.95 (test code = 9671898088) IMM GRAN x10^3 (test <0.03 0-0.06 code = 4781764547) LYMPH x10^3 (test code 1.41 10*3/uL 1.09-3.23 = 731-0) MONO x10^3 (test code 0.55 10*3/uL 0.36-1.02 = 742-7) EOS x10^3 (test code = 0.19 10*3/uL 0.06-0.53 711-2) BASO x10^3 (test code 0.06 10*3/uL 0.01-0.09 = 704-7) Lab Interpretation Abnormal (test code = 58127-6) [facility] WITH [id number] 15:41:00 Test Item Value Reference Range Interpretation [...] RDW-SD (test code = 51.1 fL 38.5-51.6 59320-1) RDW-CV (test code = 13.9 % 12.1-15.4 788-0) PLT (test code = See_Comment [Automated 777-3) message] The sy stem which generated this result transmitted reference range : 150 - 328 10*3/ ?L. The reference r sarahy was not used to interpret this result as normal/abnormal . MPV (test code = 10.3 fL 9.8-13 50621-2) NRBC/100 WBC (test See_Comment [Automat ed code = 1621235012) message] The system which generated this result transmitted reference range : 0.0 - 10.0 /100 WBCs. The refer ence range was not u sed to interpret th is result as normal/abnormal . NRBC x10^3 (test code <0.01 See_Comment [Auto mated = 5336028866) message] The s ystem which generated this result transmitted reference range : 10*3/?L. The reference range was not used to interpret this result as normal/abnormal . GRAN MAT (NEUT) % 64.3 % (test code = 770-8) IMM GRAN % (test code 0.30 % = 3605474886) LYMPH % (test code = 22.6 % 736-9) MONO % (test code = 8.8 % 5905-5) EOS % (test code = 3.0 % 713-8) BASO % (test code = 1.0 % 706-2) GRAN MAT x10^3(ANC) 4.02 10*3/uL 1.99-6.95 (test code = 6228485701) IMM GRAN x10^3 (test <0.03 0-0.06 code = 6588546042) LYMPH x10^3 (test code 1.41 10*3/uL 1.09-3.23 = 731-0) MONO x10^3 (test code 0.55 10*3/uL 0.36-1.02 = 742-7) EOS x10^3 (test code = 0.19 10*3/uL 0.06-0.53 711-2) BASO x10^3 (test code 0.06 10*3/uL 0.01-0.09 = 704-7) Lab Interpretation Abnormal (test code = 25484-4) [facility] WITH [id number] 15:41:00 Test Item Value Reference Range Interpretation Comments WBC (test code = See_Comment [Automated 8190-2) message] The sy stem which generated this result transmitted reference range : 4.20 - 10.70 10*3/?L. The reference range was not used to interpret this result as normal/abnormal . RBC (test code = See_Comment [Automated 259-8) message] The sy stem which generated this [...] RDW-SD (test code = 51.1 fL 38.5-51.6 19187-5) RDW-CV (test code = 13.9 % 12.1-15.4 788-0) PLT (test code = See_Comment [Automated 777-3) message] The sy stem which generated this result transmitted reference range : 150 - 328 10*3/ ?L. The reference r sarahy was not used to interpret this result as normal/abnormal . MPV (test code = 10.3 fL 9.8-13 73490-0) NRBC/100 WBC (test See_Comment [Automat ed code = 8894693100) message] The system which generated this result transmitted reference range : 0.0 - 10.0 /100 WBCs. The refer ence range was not u sed to interpret th is result as normal/abnormal . NRBC x10^3 (test code <0.01 See_Comment [Auto mated = 0703658914) message] The s ystem which generated this result transmitted reference range : 10*3/?L. The reference range was not used to interpret this result as normal/abnormal . GRAN MAT (NEUT) % 64.3 % (test code = 770-8) IMM GRAN % (test code 0.30 % = 7723081542) LYMPH % (test code = 22.6 % 736-9) MONO % (test code = 8.8 % 5905-5) EOS % (test code = 3.0 % 713-8) BASO % (test code = 1.0 % 706-2) GRAN MAT x10^3(ANC) 4.02 10*3/uL 1.99-6.95 (test code = 2082571560) IMM GRAN x10^3 (test <0.03 0-0.06 code = 9540614545) LYMPH x10^3 (test code 1.41 10*3/uL 1.09-3.23 = 731-0) MONO x10^3 (test code 0.55 10*3/uL 0.36-1.02 = 742-7) EOS x10^3 (test code = 0.19 10*3/uL 0.06-0.53 711-2) BASO x10^3 (test code 0.06 10*3/uL 0.01-0.09 = 704-7) Lab Interpretation Abnormal (test code = 13242-2) [id number]TOTAL CHOLESTEROL, TRIGLYCERIDES, HDL)2019-02-20 17:10:00 Test Item Value Reference Range Interpretation Comments CHOL (test code = 140 mg/dL 120-200 9173203715) HDL (test code = 46 mg/dL >40 7656754726) HDLC RATIO (test code = See_Comment [Au tomated message] 2692144463) The system [facility] generated this result transmit claribel reference range : <=5.0. The refe rence range was not u sed to interpret th is result as normal/abnormal . TRIG (test code = 52 mg/dL 30-170 6525750726) LDL CHOL (test code = 84 mg/dL See_Comment [Auto mated message] 55878-0) The system [facility] generated this result transmit claribel reference range : <=160. The refe rence range was not u sed to interpret th is result as normal/abnormal . VLDL (test code = 10 mg/dL 5-60 0254274323) Lab Interpretation (test Normal code = 31960-1) [id number]TOTAL CHOLESTEROL, TRIGLYCERIDES, HDL)2019-02-20 17:10:00 Test Item Value Reference Range Interpretation Comments CHOL (test code = 140 mg/dL 120-200 8667122684) HDL (test code = 46 mg/dL >40 1431692104) HDLC RATIO (test code = See_Comment [Au tomated message] 1576730378) The system [facility] generated this result transmit claribel reference range : <=5.0. The refe rence range was not u sed to interpret th is result as normal/abnormal . TRIG (test code = 52 mg/dL 30-170 2387507442) LDL CHOL (test code = 84 mg/dL See_Comment [Auto mated message] 06242-9) The system [facility] generated this result transmit claribel reference range : <=160. The refe rence range was not u sed to interpret th is result as normal/abnormal . VLDL (test code = 10 mg/dL 5-60 2831183227) Lab Interpretation (test Normal code = 12458-1) [id number]TOTAL CHOLESTEROL, TRIGLYCERIDES, HDL)2019-02-20 17:10:00 Test Item Value Reference Range Interpretation Comments CHOL (test code = 140 mg/dL 120-200 9151199258) HDL (test code = 46 mg/dL >40 6810321578) HDLC RATIO (test code = See_Comment [Au tomated message] 5856234842) The system [facility] generated this result transmit claribel reference range : <=5.0. The refe rence range was not u sed to interpret th is result as normal/abnormal . TRIG (test code = 52 mg/dL 30-170 6343179680) LDL CHOL (test code = 84 mg/dL See_Comment [Auto mated message] 56187-2) The system [facility] generated this result transmit claribel reference range : <=160. The refe rence range was not u sed to interpret th is result as normal/abnormal . VLDL (test code = 10 mg/dL 5-60 4041928397) Lab Interpretation (test Normal code = 28838-2) [id number][facility]TOTAL CHOLESTEROL, TRIGLYCERIDES, HDL)2019-02-20 17:10:00 Test Item Value Reference Range Interpretation Comments CHOL (test code = 140 mg/dL 120-200 0556255112) HDL (test code = 46 mg/dL >40 4554199639) HDLC RATIO (test code = See_Comment [Au tomated message] 7395772374) The system [facility] generated this result transmit claribel reference range : <=5.0. The refe rence range was not u sed to interpret th is result as normal/abnormal . TRIG (test code = 52 mg/dL 30-170 0711505691) LDL CHOL (test code = 84 mg/dL See_Comment [Auto mated message] 81516-9) The system [facility] generated this result transmit claribel reference range : <=160. The refe rence range was not u sed to interpret th is result as normal/abnormal . VLDL (test code = 10 mg/dL 5-60 1563489269) Lab Interpretation (test Normal code = 04591-1) [id number]TOTAL CHOLESTEROL, TRIGLYCERIDES, HDL)2019-02-20 17:10:00 Test Item Value Reference Range Interpretation Comments CHOL (test code = 140 mg/dL 120-200 7339671494) HDL (test code = 46 mg/dL >40 0806966784) HDLC RATIO (test code = See_Comment [Au tomated message] 9014415521) The system [facility] generated this result transmit claribel reference range : <=5.0. The refe rence range was not u sed to interpret th is result as normal/abnormal . TRIG (test code = 52 mg/dL 30-170 0722429848) LDL CHOL (test code = 84 mg/dL See_Comment [Auto mated message] 24461-9) The system [facility] generated this result transmit claribel reference range : <=160. The refe rence range was not u sed to interpret th is result as normal/abnormal . VLDL (test code = 10 mg/dL 5-60 4064112343) Lab Interpretation (test Normal code = 74514-8) [facility]2019-02-20 16:35:00 Test Item [...] Indicated Lab Interpretation Normal (test code = 68561-5) [facility]2019-02-20 16:35:00 Test Item [...] Indicated Lab Interpretation Normal (test code = 96508-8) [facility]2019-02-20 16:35:00 Test Item [...] Indicated Lab Interpretation Normal (test code = 89304-4) [facility]2019-02-20 16:35:00 Test Item [...] Indicated Lab Interpretation Normal (test code = 20972-8) [facility]2019-02-20 16:35:00 Test Item [...] Indicated Lab Interpretation Normal (test code = 07092-1) [facility]"
[2021-10-07 02:23] LABS: Absolute Lymphocytes (CBC) 0.6 K/uL (0.7-4.9); Hematocrit 42.9 % (39.6-49.0); Lymphocytes % 8.4 % (15.3-44.8); MPV 8.2 fL (7.6-11.3); RBC Red Blood Cell Count 4.39 M/uL (4.33-5.43)
[2021-10-07 02:33] LABS: Albumin 2.9 g/dL (3.4-5.0); Bilirubin Total 0.5 mg/dL (0.2-1.0); Potassium 3.6 mmol/L (3.5-5.1); Protein, Total 5.6 g/dL (6.4-8.2)
--- NOTE | 2021-10-07 05:41 | EDPHYS ---
Physician Documentation [facility] Name: Elver Tee Age: 81 yrs Sex: Male : 1940 Arrival Date: 10/06/2021 Time: 23:29 Bed 19 Private MD: ED Physician Reno Morejon HPI: 10/07 20:51 This 81 yrs old Male presents to ER via EMS with complaints of Abdominal Pain. kdr 20:51 The patient presents with abdominal pain that is diffuse. Onset: The symptoms/episode kdr began/occurred at an unknown time, Patient states that he has not had a bowel movement about 4 days. He feels that when he tries to have a bowel movement his abdomen hurts but otherwise he is not in any significant discomfort.. The symptoms do not radiate. Associated signs and symptoms: none. Associated signs and symptoms: Pertinent positives: constipation. The symptoms are described as achy. Modifying factors: The symptoms are alleviated by nothing, the symptoms are aggravated by nothing. Severity of pain: At its worst the pain was very mild mild in the emergency department the pain is unchanged. The patient has not experienced similar symptoms in the past. The patient has not recently seen a physician. Historical: - Allergies: 10/06 23:34 Bacitracin Zinc; tw5 23:34 Neomycin Sulfate; tw5 23:34 Polymyxin B Sulfate; tw5 - PMHx: 23:34 Bipolar disorder; Hypertensive disorder; Paranoid Schizophrenia; tw5 - Immunization history:: Flu vaccine is not up to date. - Social history:: Smoking status: Patient denies any tobacco usage or history of. ROS: 10/07 20:51 Constitutional: Negative for fever, chills, and weight loss, Eyes: Negative for injury, kdr pain, redness, and discharge, Neck: Negative for injury, pain, and swelling, Cardiovascular: Negative for chest pain, palpitations, and edema, Respiratory: Negative for shortness of breath, cough, wheezing, and pleuritic chest pain, Abdomen/GI: Negative for abdominal pain, nausea, vomiting, diarrhea, and constipation, Back: Negative for injury and pain, : Negative for injury, bleeding, discharge, and swelling, MS/Extremity: Negative for injury and deformity, Skin: Negative for injury, rash, and discoloration, Neuro: Negative for headache, weakness, numbness, tingling, and seizure activity. Psych: Negative for depression, anxiety, suicide ideation, homicidal ideation, and hallucinations, Allergy/Immunology: Negative for hives, rash, and allergies, Endocrine: Negative for neck swelling, polydipsia, polyuria, polyphagia, and marked weight changes, Hematologic/Lymphatic: Negative for swollen nodes, abnormal bleeding, and unusual bruising. Abdomen/GI: Positive for abdominal pain, constipation, of the abdomen diffusely. Exam: 20:51 Constitutional: This is a well developed, well nourished patient who is awake, alert, kdr and in no acute distress. Head/Face: Normocephalic, atraumatic. Eyes: Pupils equal round and reactive to light, extra-ocular motions intact. Lids and lashes normal. Conjunctiva and sclera are non-icteric and not injected. Cornea within normal limits. Periorbital areas with no swelling, redness, or edema. Neck: Trachea midline, no thyromegaly or masses palpated, and no cervical lymphadenopathy. Supple, full range of motion without nuchal rigidity, or vertebral point tenderness. No Meningismus. Chest/axilla: Normal chest wall appearance and motion. Nontender with no deformity. No lesions are appreciated. Cardiovascular: Regular rate and rhythm with a normal S1 and S2. No gallops, murmurs, or rubs. Normal PMI, no JVD. No pulse deficits. Respiratory: Lungs have equal breath sounds bilaterally, clear to auscultation and percussion. No rales, rhonchi or wheezes noted. No increased work of breathing, no retractions or nasal flaring. Abdomen/GI: Soft, non-tender, with normal bowel sounds. No distension or tympany. No guarding or rebound. No evidence of tenderness throughout. Back: No spinal tenderness. No costovertebral tenderness. Full range of motion. Skin: Warm, dry with normal turgor. Normal color with no rashes, no lesions, and no evidence of cellulitis. MS/ Extremity: Pulses equal, no cyanosis. Neurovascular intact. Full, normal range of motion. Neuro: Awake and alert, GCS 15, oriented to person, place, time, and situation. Cranial nerves II-XII grossly intact. Motor strength 5/5 in all extremities. Sensory grossly intact. Cerebellar exam normal. Normal gait. Psych: Awake, alert, with orientation to person, place and time. Behavior, mood, and affect are within normal limits. Vital Signs: 10/06 23:31 BP 140 / 97; Pulse 105; Resp 18; Temp 97.8; Pulse Ox 100% on R/A; Weight 79.38 kg; tw5 Height 6 ft. 0 in. (182.88 cm); Pain 0/10; 10/07 00:30 BP 138 / 102; Pulse 94; Resp 18; Pulse Ox 94% on R/A; sm5 02:00 BP 106 / 79; Pulse 84; Resp 19; Pulse Ox 94% on R/A; sm5 10/06 23:31 Body Mass Index 23.73 (79.38 kg, 182.88 cm) tw5 MDM: 05:36 ED course: Patient has been stable in the ED. After arrival, he began to have multiple kdr bowel movements. They were nonbloody or tar-like. He stated he felt relief from his initial constipation feeling. On rectal exam, the patient did not have any inordinate pain or masses. Patient has continued to have intermittent bowel movements. I discussed the patient with Dr. Hargrove, just did treat the patient with Cipro or Flagyl. He also suggested attempting to get a hold of GI. I attempted to reach Dr. Short and Dr. Baker without success. Neither of them was on-call today. At present I indicated the patient should be able to be discharged with outpatient follow-up by GI. Patient again is stable and afebrile. We discharged home with follow-up with GI.. 05:40 Patient medically screened. kdr 20:51 Data reviewed: vital signs, nurses notes, lab test result(s), radiologic studies. kdr Counseling: I had a detailed discussion with the patient and/or guardian regarding: the historical points, exam findings, and any diagnostic results supporting the discharge/admit diagnosis, lab results, radiology results, the need for outpatient follow up. 10/07 01:58 Order name: CBC with Diff; Complete Time: 03: kdr 10/07 01:58 Order name: CMP; Complete Time: 03: kdr 10/07 01:58 Order name: Lipase; Complete Time: 03: kdr 10/07 01:58 Order name: IV Saline Lock; Complete Time: 02: kdr 10/07 01:58 Order name: Labs collected and sent; Complete Time: 02:01 kdr 10/07 01:58 Order name: CT Abd/Pelvis - IV Contrast Only kdr Administered Medications: No medications were administered Disposition Summary: 10/07/21 05:40 Discharge Ordered Location: Home kdr Problem: new kdr Symptoms: have improved kdr Condition: Stable kdr Diagnosis - Constipation kdr - Swelling of rectal wall kdr Followup: kdr - With: Private Physician - When: 2 - 3 days - Reason: If symptoms return, Further diagnostic work-up, Recheck today's complaints, Continuance of care, Re-evaluation by your physician Discharge Instructions: - Discharge Summary Sheet kdr - Constipation, Adult, [id number] kdr - Proctitis kdr Forms: - Medication Reconciliation Form kdr - Thank You Letter kdr - Antibiotic Education kdr Prescriptions: - Flagyl 500 mg Oral Tablet - take 1 tablet by ORAL route every 8 hours for 10 days; 30 tablet; Refills: 0, kdr Product Selection Permitted - Cipro 500 mg Oral Tablet - take 1 tablet by ORAL route every 12 hours for 10 days; 20 tablet; Refills: 0, kdr Product Selection Permitted Signatures: Dispatcher [employer] Reno Haji MD MD kdr Wood, Tiffany tw5 Constance Toribio RN RN sm5
--- NOTE | 2021-10-07 05:41 | ER ---
Nurse's Notes [facility] Name: Elver Tee Age: 81 yrs Sex: Male : 1940 Arrival Date: 10/06/2021 Time: 23:29 Bed 19 Private MD: Diagnosis: Constipation;Swelling of rectal wall Presentation: 10/06 23:31 Chief complaint: EMS states: "He got called out for a lift assist. He stated he slipped tw5 off the toilet. He said that he had not been able to go to the bathroom for two days. He said it only hurts when he is trying to go the restroom.". Coronavirus screen: Vaccine status: Patient reports receiving the 2nd dose of the covid vaccine. Power Fingerprinting. Ebola Screen: Patient negative for fever greater than or equal to 101.5 degrees Fahrenheit, and additional compatible Ebola Virus Disease symptoms Patient denies exposure to infectious person. Patient denies travel to an Ebola-affected area in the 21 days before illness onset. Initial Sepsis Screen: Does the patient meet any 2 criteria? HR > 90 bpm. Does the patient have a suspected source of infection? No. Patient's initial sepsis screen is negative. Risk Assessment: Do you want to hurt yourself or someone else? Patient reports no desire to harm self or others. Onset of symptoms was October 06, 2021. 23:31 Method Of Arrival: EMS: [facility] tw5 23:31 Acuity: CU[place]HT[place] 3 tw5 Triage Assessment: 23:34 General: Appears in no apparent distress. Behavior is calm, cooperative, appropriate tw5 for age. Pain: Denies pain. GI: Reports constipation. Historical: - Allergies: 23:34 Bacitracin Zinc; tw5 23:34 Neomycin Sulfate; tw5 23:34 Polymyxin B Sulfate; tw5 - PMHx: 23:34 Bipolar disorder; Hypertensive disorder; Paranoid Schizophrenia; tw5 - Immunization history:: Flu vaccine is not up to date. - Social history:: Smoking status: Patient denies any tobacco usage or history of. Screenin/24 00:45 Abuse screen: Denies threats or abuse. Denies injuries from another. Nutritional sm5 screening: No deficits noted. Tuberculosis screening: No symptoms or risk factors identified. Fall Risk Fall in past 12 months (25 points). No secondary diagnosis (0 pts). No IV (0 pts). Ambulatory Aid- None/Bed Rest/Nurse Assist (0 pts). Gait- Normal/Bed Rest/Wheelchair (0 pts) Mental Status- Oriented to own ability (0 pts). Total Kowalski Fall Scale indicates Low Risk Score (25-44 pts). Fall prevention measures have been instituted. Side Rails Up X 2 Placed close to Nursing Station Frequent Obs/Assesments occuring. Assessment: 00:44 Reassessment: pt having multiple bowel movements. sm5 02:03 General: Appears in no apparent distress. Behavior is cooperative. Pain: Denies pain. sm5 Neuro: No deficits noted. Level of Consciousness is awake, alert, obeys commands, Oriented to person, place, time, situation. Cardiovascular: No deficits noted. Capillary refill < 3 seconds Patient's skin is warm and dry. Respiratory: No deficits noted. Airway is patent Trachea midline Respiratory effort is even, unlabored. GI: Bowel sounds present X 4 quads. Abd is soft. Vital Signs: 10/06 23:31 BP 140 / 97; Pulse 105; Resp 18; Temp 97.8; Pulse Ox 100% on R/A; Weight 79.38 kg; tw5 Height 6 ft. 0 in. (182.88 cm); Pain 0/10; 10/07 00:30 BP 138 / 102; Pulse 94; Resp 18; Pulse Ox 94% on R/A; sm5 02:00 BP 106 / 79; Pulse 84; Resp 19; Pulse Ox 94% on R/A; sm5 10/06 23:31 Body Mass Index 23.73 (79.38 kg, 182.88 cm) tw5 ED Course: 10/06 23:29 Patient arrived in ED. bp1 23:34 Triage completed. tw5 23:34 Arm band placed on right wrist. tw5 23:43 Reno Morejon MD is Attending Physician. kdr 23:55 Constance Toribio RN is Primary Nurse. sm5 10/07 02:03 CBC with Diff Sent. sm5 02:03 CMP Sent. sm5 02:03 Lipase Sent. sm5 02:03 Inserted saline lock: 20 gauge in right antecubital area, using aseptic technique. sm5 Blood collected. 02:16 Patient has correct armband on for positive identification. Placed in gown. Bed in low sm5 position. Call light in reach. Side rails up X2. 03:28 CT Abd/Pelvis - IV Contrast Only In Process Unspecified. EDMS 06:23 Served as a rag boiler during rectal exam. IV discontinued, intact, bleeding controlled, sm5 No redness/swelling at site. Pressure dressing applied. Administered Medications: No medications were administered Medication: 00:45 VIS not applicable for this client. 5 Outcome: 05:40 Discharge ordered by . kdr 06:23 Discharged to home via wheelchair. [facility] 06:23 Condition: stable 06:23 Discharge instructions given to patient, Instructed on discharge instructions, follow up and referral plans. no drinking with medication, medication usage, Demonstrated understanding of instructions, follow-up care, medications, Prescriptions given X 2. 06:24 Patient left the ED. 5 Signatures: Dispatcher [employer] Reno Haji MD MD kdr [place], Brittany bp1 Wood, Tiffany 5 Constance Toribio, PENNIE RN 5
[2021-10-07 06:28] VITALS: TEMP 97.8
[2021-10-07 06:30] VITALS: O2SAT 94
[2021-10-07 06:31] VITALS: BP 106/79
--- NOTE | 2021-10-07 13:56 | RAD REPORT ---
EXAM DESCRIPTION: CT - Abdomen Pelvis W Contrast - 10/07/2021 5:52 am CLINICAL HISTORY: 81 years Male Abdominal pain, acute, nonlocalized TECHNIQUE: CT of the abdomen and pelvis using intravenous contrast. All CT scans at this facility us e dose modulation, iterative reconstruction, and/or weight based dosing when appropriate to reduce ra diation dose to as low as reasonably achievable. COMPARISON: None. FINDINGS: Lower chest: Minimal bibasilar atelectasis. Incompletely imaged atherosclerotic calcificat ion of the coronary arteries Abdomen/Pelvis: Liver: No focal lesion. Gallbladder: No calcified stone. Pancreas: Within normal limits. Spleen: Within normal limits. Kidney: Few scattered nonobstructing stones in both kidneys, the largest on the left measuring 4 mm. No focal lesion. Adrenal glands: Within normal limits. Vascular structures: Atherosclerotic calcification of the aorta and its major branches. Bowel: Diffuse rectal wall thickening with mild perirectal fat stranding. Stool throughout the colon. No bowel distention. Appendix: Normal. Peritoneum: No free fluid or free air. Lymph Nodes: No lymphadenopathy. Reproductive: Penile implant is present.. Urinary bladder: Distended. Osseous structures: Extensive multilevel degenerative changes. Grade 1 degenerative anterolisthesis o f L3. Postsurgical changes in the left hip. Soft tissues: Unremarkable. IMPRESSION: 1. Few scattered nonobstructing stones in both kidneys, the largest on the left measurin g 4 mm. 2. Diffuse rectal wall thickening with mild perirectal fat stranding. Differential includes proctitis versus mass. 3. Additional chronic findings as described above. Electronically signed by: Morris Huerta MD 10/07/2021 4:58 AM CDT Due to temporary technical issues with the PACS/Fluency reporting system, reports are being signed by the in house radiologists without review as a courtesy to insure prompt reporting. The interpreting radiologist is fully responsible for the content of the report.
== END 2021-10-07 06:24 | disposition home or self-care (01) ==
LOC: ER 23:27
DX: K59.00 Constipation, unspecified (principal); K62.89 Other specified diseases of anus and rectum; I10 Essential (primary) hypertension; Z88.1 Allergy status to other antibiotic agents; Z88.3 Allergy status to other anti-infective agents
CPT/HCPCS: 85025; 36415; 83690; 80053; 74177; Q9967; 99284

== ENCOUNTER 2021-11-02 12:42 | Emergency (ER) | payer OTHER, MEDICARE ==
--- OUTSIDE RECORDS SUMMARY | 2021-11-02 12:55 | XMS REPORT | Continuity of Care Document ---
:1940 Author Organization [facility] Address [address] [place] [address] Care Team Providers Name Role Phone Gomez HALL Primary Care Physician SIVAKUMAR WHITLOCK Attending Clinician Unavailable [id number] Attending Clinician Unavailable Danielle Draper Attending Clinician [...] Attending Clinician UNKNOWN Attending Clinician Unavailable Donn MANAGER PROTEIN Attending Clinician Unknown Attending Clinician Unavailable Care, [...] Clinician Unavailable SIVAKUMAR WHITLOCK Admitting Clinician Unavailable [id number] Admitting Clinician Unavailable Danielle Draper Admitting Clinician Unavailable Payers Payer Name Policy Type Policy Number Effective Date Expiration Date S renetta HARRIS MCR [id number] AARP AARP [id number] MEDICARE B RAILROAD [id number] 2003 00:00:00 [facility] [id number] 2006 MEDICARE SUPPLEMENT 00:00:00 Problems Condition Condition Condition Status Onset Resolution Last Treating Co mments Source Name Details Category Date Date Treatment Clinician Date 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 06-03 ity of 00:00: [address] 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 sm in male sm in male 06-15 it y of 00:00: [address] Gynecomast Gynecomast Disease Active U nivers ia ia 07-18 ity of :00: [address] Elevated Elevated Disease Active Unive rs prolactin prolactin 07-18 ity of level level 00:00: [address] Allergies, Adverse Reactions, Alerts Allergy Allergy Status Severity Reaction(s) Onset Inactive Treating Comm ents Source Name Type Date Date Clinician NO KNOWN Drug Active Univers ALLERGIE Class ity of S [facility] Family History Family Member Diagnosis Comments Start Date Stop Date Source Family member Thyroid [facility] Social History Social Habit Start Date Stop Date Quantity Comments Source History SDOH University o f Alcohol Frequency [facility] edical Branch History SDOH University o f Alcohol Std [place] [facility] History SDOH University o f Alcohol Binge [facility] [place] Exposure to Not sure University SARS-CoV-2 [facility] (event) [place] Alcohol intake 2020-02-02 2020-02-02 0 /d University of 00:00:00 00:00:00 [facility] Tobacco use and 2020-02-02 2020-02-02 Never used Universit y of exposure 00:00:00 00:00:00 [facility] Alcohol Comment 2018-03-21 2018-03-21 occaisonal wine Univ ersity of 00:00:00 00:00:00 [facility] Sex [birth year] Universit y of 00:00:00 00:00:00 [facility] Smoking Status Start Date Stop Date Source Never smoker [facility] Medications Ordered Filled Start Stop Current Ordering Indication Dosage Frequency Signature Comments Components Source Medication Medication Date Date Medication? Clinician (SIG) Name Name clonazePAM Yes [id number] .5mg Take 1 U nivers 0.5 mg 6-04 tablet by ity of tablet 00:00: mouth at [place] 00 bedtime. Medical Branch clonazePAM Yes [id number] .5mg Take 1 U nivers 0.5 mg 6-04 tablet by ity of tablet 00:00: mouth at [place] 00 bedtime. Medical Branch clonazePAM Yes [id number] .5mg Take 1 U nivers 0.5 mg 6-04 tablet by ity of tablet 00:00: mouth at [place] 00 bedtime. Medical Branch rivaroxaban Yes Take [...] [place] tablet 28 Medical Branch divalproex Yes [id number] 500mg Take 2 Univers ER 250 mg 4-30 tablets by ity of 24 hr 00:00: mouth at [place] tablet 00 bedtime. Medical Branch mirtazapine Yes [id number] 7.5mg Take 1 Univers 7.5 mg 4-30 105 tablet by ity of tablet 00:00: mouth at [place] 00 bedtime. Medical Branch paliperidon Yes [id number] TAKE 1 Univers e 3 mg 24 4-30 TABLET BY ity o f hour tablet 00:00: MOUTH ONCE [place] 00 DAILY Medical Branch divalproex Yes [id number] 500mg Take 2 Univers ER 250 mg 4-30 tablets by ity of 24 hr 00:00: mouth at [place] tablet 00 bedtime. Medical Branch mirtazapine 0 Yes [id number] 7.5mg Take 1 Univers 7.5 mg 4-30 105 tablet by ity of tablet 00:00: mouth at [place] 00 bedtime. Medical Branch paliperidon 2020-0 Yes [id number] TAKE 1 Univers e 3 mg 24 4-30 TABLET BY ity o f hour tablet 00:00: MOUTH ONCE [place] 00 DAILY Medical Branch divalproex 2020-0 Yes [id number] 500mg Take 2 Univers ER 250 mg 4-30 tablets by ity of 24 hr 00:00: mouth at [place] tablet 00 bedtime. Medical Branch mirtazapine Yes [id number] 7.5mg Take 1 Univers 7.5 mg 4-30 105 tablet by ity of tablet 00:00: mouth at [place] 00 bedtime. Medical Branch paliperidon 2020-0 Yes [id number] TAKE 1 Univers e 3 mg 24 4-30 TABLET BY ity o f hour tablet 00:00: MOUTH ONCE [place] 00 DAILY Medical Branch divalproex 2020-0 Yes [id number] 500mg Take 2 Univers ER 250 mg 4-30 tablets by ity of 24 hr 00:00: mouth at [place] tablet 00 bedtime. Medical Branch mirtazapine Yes [id number] 7.5mg Take 1 Univers 7.5 mg 4-30 105 tablet by ity of tablet 00:00: mouth at [place] 00 bedtime. Medical Branch paliperidon 0 Yes [id number] TAKE 1 Univers e 3 mg 24 4-30 TABLET BY ity o f hour tablet 00:00: MOUTH ONCE [place] 00 DAILY Medical Branch divalproex 2020-0 Yes [id number] 500mg Take 2 Univers ER 250 mg 4-30 tablets by ity of 24 hr 00:00: mouth at [place] tablet 00 bedtime. Medical Branch mirtazapine Yes [id number] 7.5mg Take 1 Univers 7.5 mg 4-30 105 tablet by ity of tablet 00:00: mouth at [place] 00 bedtime. Medical Branch paliperidon 2020-0 Yes [id number] TAKE 1 Univers e 3 mg 24 4-30 TABLET BY ity o f hour tablet 00:00: MOUTH ONCE [place] 00 DAILY Medical Branch divalproex Yes [id number] 500mg Take 2 Univers ER 250 mg 4-30 tablets by ity of 24 hr 00:00: mouth at [place] tablet 00 bedtime. Medical Branch mirtazapine Yes [id number] 7.5mg Take 1 Univers 7.5 mg 4-30 105 tablet by ity of tablet 00:00: mouth at [place] 00 bedtime. Medical Branch paliperidon Yes [id number] TAKE 1 Univers e 3 mg 24 4-30 TABLET BY ity o f hour tablet 00:00: MOUTH ONCE [place] 00 DAILY Medical Branch divalproex 2020- No [id number] 500mg Take 2 Univers ER 250 mg 4-30 04-30 tablets by ity of 24 hr 00:00: 00:00 mouth at [place] tablet 00 :00 bedtime. Medical Branch divalproex 2020- No [id number] 500mg Take 2 Univers ER 250 mg 4-30 04-30 tablets by ity of 24 hr 00:00: 00:00 mouth at [place] tablet 00 :00 bedtime. Medical Branch divalproex 2020- No [id number] 500mg Take 2 Univers ER 250 mg 4-30 04-30 tablets by ity of 24 hr 00:00: 00:00 mouth at [place] tablet 00 :00 bedtime. Medical Branch divalproex Yes [id number] 500mg Take 1 Univers ER 500 mg 4-08 tablet by ity o f 24 hr 00:00: mouth [place] tablet 00 every 24 Medical (twenty-fo Branch ur) hours. divalproex Yes [id number] 500mg Take 1 Univers ER 500 mg 4-08 tablet by ity o f 24 hr 00:00: mouth [place] tablet 00 every 24 Medical (twenty-fo Branch ur) hours. divalproex 2020- No [id number] 500mg Take 1 Univers ER 500 mg 4-08 04-30 tablet by ity of 24 hr 00:00: 00:00 mouth [place] tablet 00 :00 every 24 Medical (twenty-fo Branch ur) hours. divalproex 2020- No [id number] 500mg Take 1 Univers ER 500 mg 4-08 04-30 tablet by ity of 24 hr 00:00: 00:00 mouth [place] tablet 00 :00 every 24 Medical (twenty-fo Branch ur) hours. divalproex 2020-0 2020- No [id number] 500mg Take 1 Univers ER 500 mg 4-08 04-30 tablet by ity of 24 hr 00:00: 00:00 mouth [place] tablet 00 :00 every 24 Medical (twenty-fo Branch ur) hours. clonazePAM 2020-0 Yes [id number] .5mg Take 1 U nivers 0.5 mg 3-04 tablet by ity of tablet 00:00: mouth at [place] [address] bedtime. Medical Branch clonazePAM 2020-0 Yes [id number] .5mg Take 1 U nivers 0.5 mg 3-04 tablet by ity of tablet 00:00: mouth at [place] [address] bedtime. Medical Branch clonazePAM 2020-0 Yes [id number] .5mg Take 1 U nivers 0.5 mg 3-04 tablet by ity of tablet 00:00: mouth at [place] [address] bedtime. Medical Branch clonazePAM 2020-0 Yes [id number] .5mg Take 1 U nivers 0.5 mg 3-04 tablet by ity of tablet 00:00: mouth at [place] [address] bedtime. Medical Branch clonazePAM 2020-0 Yes [id number] .5mg Take 1 U nivers 0.5 mg 3-04 tablet by ity of tablet 00:00: mouth at [place] [address] bedtime. Medical Branch clonazePAM 2020-0 Yes [id number] .5mg Take 1 U nivers 0.5 mg 3-04 tablet by ity of tablet 00:00: mouth at [place] [address] bedtime. Medical Branch clonazePAM 2020-0 Yes [id number] .5mg Take 1 U nivers 0.5 mg 3-04 tablet by ity of tablet 00:00: mouth at [place] [address] bedtime. Medical Branch clonazePAM 2020-0 Yes [id number] .5mg Take 1 U nivers 0.5 mg 3-04 tablet by ity of tablet 00:00: mouth at [place] [address] bedtime. Medical Branch clonazePAM 2020-0 Yes [id number] .5mg Take 1 U nivers 0.5 mg 3-04 tablet by ity of tablet 00:00: mouth at [place] [address] bedtime. Medical Branch clonazePAM 2021-0 Yes [id number] .5mg Take 1 U nivers 0.5 mg 3-04 tablet by ity of tablet 00:00: mouth at [place] 00 bedtime. Medical Branch clonazePAM 2020- No [id number] .5mg Take 1 Univers 0.5 mg 3-04 06-04 tablet by ity of tablet 00:00: 00:00 mouth at [place] 00 :00 bedtime. Medical Branch clonazePAM 2020- No [id number] .5mg Take 1 Univers 0.5 mg 3-04 06-04 tablet by ity of tablet 00:00: 00:00 mouth at [place] 00 :00 bedtime. Medical Branch paliperidon Yes [id number] TAKE 1 Univers e 3 mg 24 2-26 TABLET BY ity o f hour tablet 00:00: MOUTH ONCE DAILY Medical Branch paliperidon Yes [id number] TAKE 1 Univers e 3 mg 24 2-26 TABLET BY ity o f hour tablet 00:00: MOUTH ONCE DAILY Medical Branch paliperidon Yes [id number] TAKE 1 Univers e 3 mg 24 2-26 TABLET BY ity o f hour tablet 00:00: MOUTH ONCE DAILY Medical Branch paliperidon Yes [id number] TAKE 1 Univers e 3 mg 24 2-26 TABLET BY ity o f hour tablet 00:00: MOUTH ONCE DAILY Medical Branch paliperidon Yes [id number] TAKE 1 Univers e 3 mg 24 2-26 TABLET BY ity o f hour tablet 00:00: MOUTH ONCE DAILY Medical Branch paliperidon Yes [id number] TAKE 1 Univers e 3 mg 24 2-26 TABLET BY ity o f hour tablet 00:00: MOUTH ONCE DAILY Medical Branch paliperidon Yes [id number] TAKE 1 Univers e 3 mg 24 2-26 TABLET BY ity o f hour tablet 00:00: MOUTH ONCE DAILY Medical Branch paliperidon Yes [id number] TAKE 1 Univers e 3 mg 24 2-26 TABLET BY ity o f hour tablet 00:00: MOUTH ONCE DAILY Medical Branch paliperidon 2020- No [id number] TAKE 1 Univers e 3 mg 24 2-26 04-30 TABLET BY ity of hour tablet 00:00: 00:00 MOUTH ONCE [place] 00 :00 DAILY Medical Branch paliperidon 2020-0 1- No [id number] TAKE 1 Univers e 3 mg 24 2-26 04-30 TABLET BY ity of hour tablet 00:00: 00:00 MOUTH ONCE [place] 00 :00 DAILY Medical Branch paliperidon 2020-0 1- No [id number] TAKE 1 Univers e 3 mg 24 [...] 00:00: daily. Medical Branch paliperidon 2020-0 Yes [id number] TAKE 1 Univers e 3 mg 24 1-22 TABLET BY ity o f hour tablet 00:00: MOUTH ONCE [place] 00 DAILY Medical Branch mirtazapine 2020-0 Yes [id number] 7.5mg Take 1 Univers 7.5 mg 1-22 105 tablet by ity of tablet 00:00: mouth at [place] 00 bedtime. Medical Branch mirtazapine 2020-0 Yes [id number] 7.5mg Take 1 Univers 7.5 mg 1-22 105 tablet by ity of tablet 00:00: mouth at [place] bedtime. Medical Branch mirtazapine 2020-0 Yes [id number] 7.5mg Take 1 Univers 7.5 mg 1-22 105 tablet by ity of tablet 00:00: mouth at [place] [address] bedtime. Medical Branch mirtazapine 2020-0 Yes [id number] 7.5mg Take 1 Univers 7.5 mg 1-22 105 tablet by ity of tablet 00:00: mouth at [place] [address] bedtime. Medical Branch mirtazapine 2020-0 Yes [id number] 7.5mg Take 1 Univers 7.5 mg 1-22 105 tablet by ity of tablet 00:00: mouth at [place] [address] bedtime. Medical Branch mirtazapine 2020-0 Yes [id number] 7.5mg Take 1 Univers 7.5 mg 1-22 105 tablet by ity of tablet 00:00: mouth at [place] 00 bedtime. Medical Branch mirtazapine 2020-0 Yes [id number] 7.5mg Take 1 Univers 7.5 mg 1-22 105 tablet by ity of tablet 00:00: mouth at [place] 00 bedtime. Medical Branch mirtazapine 2020-0 Yes [id number] 7.5mg Take 1 Univers 7.5 mg 1-22 105 tablet by ity of tablet 00:00: mouth at [place] [address] bedtime. Medical Branch mirtazapine 2020-0 Yes [id number] 7.5mg Take 1 Univers 7.5 mg 1-22 105 tablet by ity of tablet 00:00: mouth at [place] 00 bedtime. Medical Branch propranoloL 2020- No [id number] 10mg Take 1 Univers 10 mg 1-22 07-22 tablet by ity of tablet 00:00: 04:59 mouth 2 [place] 00 :00 (two) Medical times Branch daily as needed (tremor) for up to 180 days. propranoloL 2020- No [id number] 10mg Take 1 Univers 10 mg 1-22 07-22 tablet by ity of tablet 00:00: 04:59 mouth 2 [place] 00 :00 (two) Medical times Branch daily as needed (tremor) for up to 180 days. propranoloL 2020- No [id number] 10mg Take 1 Univers 10 mg 1-22 07-22 tablet by ity of tablet 00:00: 04:59 mouth 2 [place] 00 :00 (two) Medical times Branch daily as needed (tremor) for up to 180 days. propranoloL 2020- No [id number] 10mg Take 1 Univers 10 mg 1-22 07-22 tablet by ity of tablet 00:00: 04:59 mouth 2 [place] 00 :00 (two) Medical times Branch daily as needed (tremor) for up to 180 days. propranoloL 2020- No [id number] 10mg Take 1 Univers 10 mg 1-22 07-22 tablet by ity of tablet 00:00: 04:59 mouth 2 [place] 00 :00 (two) Medical times Branch daily as needed (tremor) for up to 180 days. propranoloL 2020- No [id number] 10mg Take 1 Univers 10 mg 1-22 07-22 tablet by ity of tablet 00:00: 04:59 mouth 2 [place] 00 :00 (two) Medical times Branch daily as needed (tremor) for up to 180 days. propranoloL 2020- No [id number] 10mg Take 1 Univers 10 mg 1-22 07-22 tablet by ity of tablet 00:00: 04:59 mouth 2 [place] 00 :00 (two) Medical times Branch daily as needed (tremor) for up to 180 days. propranoloL 2020- No [id number] 10mg Take 1 Univers 10 mg 1-22 07-22 tablet by ity of tablet 00:00: 04:59 mouth 2 [place] 00 :00 (two) Medical times Branch daily as needed (tremor) for up to 180 days. propranoloL No [id number] 10mg Take 1 Univers 10 mg 1-22 07-22 tablet by ity of tablet 00:00: 04:59 mouth 2 [place] 00 :00 (two) Medical times Branch daily as needed (tremor) for up to 180 days. propranoloL 2020- No [id number] 10mg Take 1 Univers 10 mg 1-22 07-22 tablet by ity of tablet 00:00: 04:59 mouth 2 [place] 00 :00 (two) Medical times Branch daily as needed (tremor) for up to 180 days. propranoloL 2020- No [id number] 10mg Take 1 Univers 10 mg 1-22 07-22 tablet by ity of tablet 00:00: 04:59 mouth 2 [place] 00 :00 (two) Medical times Branch daily as needed (tremor) for up to 180 days. propranoloL 2020- No [id number] 10mg Take 1 Univers 10 mg 1-22 07-22 tablet by ity of tablet 00:00: 04:59 mouth 2 [place] 00 :00 (two) Medical times Branch daily as needed (tremor) for up to 180 days. propranoloL 2020- No [id number] 10mg Take 1 Univers 10 mg 1-22 07-22 tablet by ity of tablet 00:00: 04:59 mouth 2 [place] 00 :00 (two) Medical times Branch daily as needed (tremor) for up to 180 days. propranoloL 2020- No [id number] 10mg Take 1 Univers 10 mg 1-22 07-22 tablet by ity of tablet 00:00: 04:59 mouth 2 [place] 00 :00 (two) Medical times Branch daily as needed (tremor) for up to 180 days. mirtazapine 2020- No [id number] 7.5mg Take 1 Univers 7.5 mg 1-22 04-30 105 tablet by ity of tablet 00:00: 00:00 mouth at [place] 00 :00 bedtime. Medical Branch mirtazapine 2020- No [id number] 7.5mg Take 1 Univers 7.5 mg 1-22 04-30 105 tablet by ity of tablet 00:00: 00:00 mouth at [place] 00 :00 bedtime. Medical Branch mirtazapine 2020- No [id number] 7.5mg Take 1 Univers 7.5 mg 1-22 04-30 105 tablet by ity of tablet 00:00: 00:00 mouth at [place] 00 :00 bedtime. Medical Branch divalproex 2019- Yes [id number] 500mg Take 2 Univers ER 250 mg 2-26 tablets by ity of 24 hr 00:00: mouth at [place] tablet 00 bedtime. Medical Branch divalproex 2019-05- No [id number] 500mg Take 2 Univers ER 250 mg 2-26 01-06 tablets by ity of 24 hr 00:00: 05:59 mouth at [place] tablet 00 :00 bedtime Medical for 10 . divalproex 2019-05 Yes [id number] 500mg Take 2 Univers ER 250 mg 1-13 tablets by ity of 24 hr 00:00: mouth at [place] tablet 00 bedtime. Medical Branch divalproex 2019- Yes [id number] 500mg Take 2 Univers ER 250 mg 1-13 tablets by ity of 24 hr 00:00: mouth at [place] tablet 00 bedtime. Medical Branch divalproex 2019- Yes [id number] 500mg Take 2 Univers ER 250 mg 1-13 tablets by ity of 24 hr 00:00: mouth at [place] tablet 00 bedtime. Medical Branch divalproex 2019-05 Yes [id number] 500mg Take 2 Univers ER 250 mg 1-13 tablets by ity of 24 hr 00:00: mouth at [place] tablet 00 bedtime. Medical Branch clonazePAM 2019- Yes [id number] .5mg Take 1 U nivers 0.5 mg 1-03 tablet by ity of tablet 00:00: mouth at [place] 00 bedtime. Medical Branch mirtazapine 2019- Yes [id number] 7.5mg Take 1 Univers 7.5 mg 1-03 105 tablet by ity of tablet 00:00: mouth at [place] 00 bedtime. Medical Branch paliperidon 2019- Yes [id number] TAKE 1 Univers e 3 mg 24 1-03 TABLET BY ity o f hour tablet 00:00: MOUTH ONCE [place] 00 DAILY Medical Branch clonazePAM 2019- Yes [id number] .5mg Take 1 U nivers 0.5 mg 1-03 tablet by ity of tablet 00:00: mouth at [place] 00 bedtime. Medical Branch mirtazapine 2019- Yes [id number] 7.5mg Take 1 Univers 7.5 mg 1-03 105 tablet by ity of tablet 00:00: mouth at [place] 00 bedtime. Medical Branch paliperidon 2020-1 Yes [id number] TAKE 1 Univers e 3 mg 24 1-03 TABLET BY ity o f hour tablet 00:00: MOUTH ONCE [place] 00 DAILY Medical Branch clonazePAM 2020-1 Yes [id number] .5mg Take 1 U nivers 0.5 mg 1-03 tablet by ity of tablet 00:00: mouth at [place] 00 bedtime. Medical Branch mirtazapine 2020-1 Yes [id number] 7.5mg Take 1 Univers 7.5 mg 1-03 105 tablet by ity of tablet 00:00: mouth at [place] 00 bedtime. Medical Branch paliperidon 2020-1 Yes [id number] TAKE 1 Univers e 3 mg 24 1-03 TABLET BY ity o f hour tablet 00:00: MOUTH ONCE [place] 00 DAILY Medical Branch clonazePAM 2020-1 Yes [id number] .5mg Take 1 U nivers 0.5 mg 1-03 tablet by ity of tablet 00:00: mouth at [place] [address] bedtime. Medical Branch clonazePAM 2020-1 Yes [id number] .5mg Take 1 U nivers 0.5 mg 1-03 tablet by ity of tablet 00:00: mouth at [place] [address] bedtime. Medical Branch clonazePAM 2020-1 Yes [id number] .5mg Take 1 U nivers 0.5 mg 1-03 tablet by ity of tablet 00:00: mouth at [place] [address] bedtime. Medical Branch mirtazapine 2020-1 Yes [id number] 7.5mg Take 1 Univers 7.5 mg 1-03 105 tablet by ity of tablet 00:00: mouth at [place] 00 bedtime. Medical Branch clonazePAM 2020-1 Yes [id number] .5mg Take 1 U nivers 0.5 mg 1-03 tablet by ity of tablet 00:00: mouth at [place] 00 bedtime. Medical Branch mirtazapine 2020- Yes [id number] 7.5mg Take 1 Univers 7.5 mg 1-03 105 tablet by ity of tablet 00:00: mouth at [place] 00 bedtime. Medical Branch paliperidon 2020-1 Yes [id number] TAKE 1 Univers e 3 mg 24 1-03 TABLET BY ity o f hour tablet 00:00: MOUTH ONCE [place] DAILY Medical Branch clonazePAM 2020- Yes [id number] .5mg Take 1 U nivers 0.5 mg 1-03 tablet by ity of tablet 00:00: mouth at [place] 00 bedtime. Medical Branch mirtazapine 2019- Yes [id number] 7.5mg Take 1 Univers 7.5 mg 1-03 105 tablet by ity of tablet 00:00: mouth at [place] 00 bedtime. Medical Branch paliperidon 2019- Yes [id number] TAKE 1 Univers e 3 mg 24 1-03 TABLET BY ity o f hour tablet 00:00: MOUTH ONCE [place] 00 DAILY Medical Branch clonazePAM 2019- Yes [id number] .5mg Take 1 U nivers 0.5 mg 1-03 tablet by ity of tablet 00:00: mouth at [place] 00 bedtime. Medical Branch mirtazapine 2019- Yes [id number] 7.5mg Take 1 Univers 7.5 mg 1-03 105 tablet by ity of tablet 00:00: mouth at [place] 00 bedtime. Medical Branch paliperidon 2019- Yes [id number] TAKE 1 Univers e 3 mg 24 1-03 TABLET BY ity o f hour tablet 00:00: MOUTH ONCE [place] DAILY Medical Branch clonazePAM 2019- Yes [id number] .5mg Take 1 U nivers 0.5 mg 1-03 tablet by ity of tablet 00:00: mouth at [place] 00 bedtime. Medical Branch mirtazapine 2019- Yes [id number] 7.5mg Take 1 Univers 7.5 mg 1-03 105 tablet by ity of tablet 00:00: mouth at [place] 00 bedtime. Medical Branch paliperidon 2019- Yes [id number] TAKE 1 Univers e 3 mg 24 1-03 TABLET BY ity o f hour tablet 00:00: MOUTH ONCE [place] 00 DAILY Medical Branch clonazePAM 2019- Yes [id number] .5mg Take 1 U nivers 0.5 mg 1-03 tablet by ity of tablet 00:00: mouth at [place] 00 bedtime. Medical Branch mirtazapine 2019- Yes [id number] 7.5mg Take 1 Univers 7.5 mg 1-03 105 tablet by ity of tablet 00:00: mouth at [place] 00 bedtime. Medical Branch paliperidon 2019- Yes [id number] TAKE 1 Univers e 3 mg 24 1-03 TABLET BY ity o f hour tablet 00:00: MOUTH ONCE 00 DAILY Medical Branch clonazePAM 2019- Yes [id number] .5mg Take 1 U nivers 0.5 mg 1-03 tablet by ity of tablet 00:00: mouth at [place] bedtime. Medical Branch mirtazapine 2019- Yes [id number] 7.5mg Take 1 Univers 7.5 mg 1-03 105 tablet by ity of tablet 00:00: mouth at [place] 00 bedtime. Medical Branch paliperidon 2019- Yes [id number] TAKE 1 Univers e 3 mg 24 1-03 TABLET BY ity o f hour tablet 00:00: MOUTH ONCE 00 DAILY Medical Branch mirtazapine 2019- Yes [id number] 7.5mg Take 1 Univers 7.5 mg 0-30 105 tablet by ity of tablet 00:00: mouth at [place] bedtime. Medical Branch mirtazapine 2019- Yes [id number] 7.5mg Take 1 Univers 7.5 mg 0-02 105 tablet by ity of tablet 00:00: mouth at [place] bedtime. Medical Branch mirtazapine 2019-05 Yes [id number] 7.5mg Take 1 Univers 7.5 mg 0-02 105 tablet by ity of tablet 00:00: mouth at [place] bedtime. Medical Branch propranolol 2020-0 Yes [id number] 10mg Take 1 Univers 10 mg 8-03 tablet by ity of tablet 00:00: mouth 2 (two) Medical times Branch daily as needed (tremor). propranolol 2020-0 Yes [id number] 10mg Take 1 [facility] 10 mg 8-03 tablet by ity of tablet 00:00: mouth 2 (two) Medical times Branch daily as needed (tremor). propranolol 2020-0 Yes [id number] 10mg Take 1 [facility] 10 mg 8-03 tablet by ity of tablet 00:00: mouth 2 (two) Medical times Branch daily as needed (tremor). propranolol 2020-0 Yes [id number] 10mg Take 1 [facility] 10 mg 8-03 tablet by ity of tablet 00:00: mouth 2 (two) Medical times Branch daily as needed (tremor). propranolol 2020-0 Yes [id number] 10mg Take 1 [facility] 10 mg 8-03 tablet by ity of tablet 00:00: mouth 2 (two) Medical times Branch daily as needed (tremor). propranolol 2020-0 Yes [id number] 10mg Take 1 [facility] 10 mg 8-03 tablet by ity of tablet 00:00: mouth (two) Medical times Branch daily as needed (tremor). propranolol 2020-0 Yes [id number] 10mg Take 1 [facility] 10 mg 8-03 tablet by ity of tablet 00:00: mouth (two) Medical times Branch daily as needed (tremor). propranolol 2020-0 Yes [id number] 10mg Take 1 [facility] 10 mg 8-03 tablet by ity of tablet 00:00: mouth (two) Medical times Branch daily as needed (tremor). propranolol 2020-0 Yes [id number] 10mg Take 1 [facility] 10 mg 8-03 tablet by ity of tablet 00:00: mouth (two) Medical times Branch daily as needed (tremor). propranolol 2020-0 Yes [id number] 10mg Take 1 [facility] 10 mg 8-03 tablet by ity of tablet 00:00: mouth (two) Medical times Branch daily as needed (tremor). propranolol 2020-0 Yes [id number] 10mg Take 1 [facility] 10 mg 8-03 tablet by ity of tablet 00:00: mouth (two) Medical times Branch daily as needed (tremor). propranolol 2020-0 Yes [id number] 10mg Take 1 [facility] 10 mg 8-03 tablet by ity of tablet 00:00: mouth (two) Medical times Branch daily as needed (tremor). propranolol 2020-0 Yes [id number] 10mg Take 1 [facility] 10 mg 8-03 tablet by ity of tablet 00:00: mouth (two) Medical times Branch daily as needed (tremor). propranolol 2020-0 Yes [id number] 10mg Take 1 [facility] 10 mg 8-03 tablet by ity of tablet 00:00: mouth (two) Medical times Branch daily as needed (tremor). propranolol 2020-0 Yes [id number] 10mg Take 1 [facility] 10 mg 8-03 tablet by ity of tablet 00:00: mouth (two) Medical times Branch daily as needed (tremor). propranolol 2020-0 Yes [id number] 10mg Take 1 [facility] 10 mg 8-03 tablet by ity of tablet 00:00: mouth 2 [place] 00 (two) Medical times Branch daily as needed (tremor). propranolol 2020-0 Yes [id number] 10mg Take 1 [facility] 10 mg 8-03 tablet by ity of tablet 00:00: mouth (two) Medical times Branch daily as needed (tremor). propranolol 2020-0 Yes [id number] 10mg Take 1 [facility] 10 mg 8-03 tablet by ity of tablet 00:00: mouth (two) Medical times Branch daily as needed (tremor). propranolol 2020-0 Yes [id number] 10mg Take 1 [facility] 10 mg 8-03 tablet by ity of tablet 00:00: mouth (two) Medical times [facility] daily as needed (tremor). propranolol 2020-0 Yes [id number] 10mg Take 1 [facility] 10 mg 8-03 tablet by [facility] tablet 00:00: mouth (two) Medical times Branch daily as needed (tremor). propranolol 2020-0 Yes [id number] 10mg Take 1 [facility] 10 mg 8-03 tablet by [facility] tablet 00:00: mouth (two) Medical times Branch daily as needed (tremor). propranolol 2020-0 Yes [id number] 10mg Take 1 [facility] 10 mg 8-03 tablet by [facility] tablet 00:00: mouth (two) Medical times Branch daily as needed (tremor). propranolol 2020-0 Yes [id number] 10mg Take 1 [facility] 10 mg 8-03 tablet by [facility] tablet 00:00: mouth (two) Medical times [facility] daily as needed (tremor). propranolol 2020-0 Yes [id number] 10mg Take 1 [facility] 10 mg 8-03 tablet by [facility] tablet 00:00: mouth (two) Medical times [facility] daily as needed (tremor). propranolol 2020-0 Yes [id number] 10mg Take 1 [facility] 10 mg 8-03 tablet by [facility] tablet 00:00: mouth (two) Medical times [facility] daily as needed (tremor). propranolol 2020-0 Yes [id number] 10mg Take 1 [facility] 10 mg 8-03 tablet by [facility] tablet 00:00: mouth (two) Medical times [facility] daily as needed (tremor). propranolol 2020-0 Yes [id number] 10mg Take 1 [facility] 10 mg 8-03 tablet by [facility] tablet 00:00: mouth (two) Medical times [facility] daily as needed (tremor). propranolol 2020-0 Yes [id number] 10mg Take 1 [facility] 10 mg 8-03 tablet by [facility] tablet 00:00: mouth 2 (two) Medical times [facility] daily as needed (tremor). propranolol 2020-0 Yes [id number] 10mg Take 1 [facility] 10 mg 8-03 tablet by [facility] tablet 00:00: mouth 2 (two) Medical times [facility] daily as needed (tremor). propranolol 2020-0 Yes [id number] 10mg Take 1 [facility] 10 mg 8-03 tablet by [facility] tablet 00:00: mouth 2 (two) Medical times Branch daily as needed (tremor). propranolol 2020-0 Yes [id number] 10mg Take 1 [facility] 10 mg 8-03 tablet by [facility] tablet 00:00: mouth 2 (two) Medical times Branch daily as needed (tremor). divalproex 2020-0 Yes [id number] 500mg Take 2 [facility] 250 mg 7-14 tablets by [facility] 24 hr 00:00: mouth at [place] tablet 00 bedtime. [facility] divalproex 2020-0 Yes [id number] 500mg Take 2 [facility] 250 mg 7-14 tablets by [facility] 24 hr 00:00: mouth at [place] tablet 00 bedtime. [facility] divalproex 2020-0 Yes [id number] 500mg Take 2 [facility] 250 mg 7-14 tablets by [facility] 24 hr 00:00: mouth at [place] tablet 00 bedtime. [facility] divalproex 2020-0 Yes [id number] 500mg Take 2 [facility] 250 mg 7-14 tablets by [facility] 24 hr 00:00: mouth at [place] tablet 00 bedtime. [facility] divalproex 2020-0 Yes [id number] 500mg Take 2 [facility] 250 mg 7-14 tablets by [facility] 24 hr 00:00: mouth at [place] tablet 00 bedtime. [facility] divalproex 2020-0 Yes [id number] 500mg Take 2 [facility] 250 mg 7-14 tablets by [facility] 24 hr 00:00: mouth at [place] tablet 00 bedtime. [facility] divalproex 2020-0 Yes [id number] 500mg Take 2 [facility] 250 mg 7-14 tablets by [facility] 24 hr 00:00: mouth at [place] tablet 00 bedtime. [facility] divalproex 2020-0 Yes [id number] 500mg Take 2 [facility] 250 mg 7-14 tablets by [facility] 24 hr 00:00: mouth at [place] tablet 00 bedtime. [facility] divalproex 2020-0 Yes [id number] 500mg Take 2 [facility] 250 mg 7-14 tablets by [facility] 24 hr 00:00: mouth at [place] tablet 00 bedtime. [facility] divalproex 2020-0 Yes [id number] 500mg Take 2 [facility] 250 mg 7-14 tablets by [facility] 24 hr 00:00: mouth at [place] tablet 00 bedtime. [facility] divalproex 2020-0 Yes [id number] 500mg Take 2 [facility] 250 mg 7-14 tablets by [facility] 24 hr 00:00: mouth at [place] tablet 00 bedtime. [facility] divalproex 2020-0 Yes [id number] 500mg Take 2 [facility] 250 mg 7-14 tablets by [facility] 24 hr 00:00: mouth at [place] tablet 00 bedtime. [facility] divalproex 2020-0 Yes [id number] 500mg Take 2 [facility] 250 mg 7-14 tablets by [facility] 24 hr 00:00: mouth at [place] tablet 00 bedtime. [facility] divalproex 2020-0 Yes [id number] 500mg Take 2 [facility] 250 mg 7-14 tablets by [facility] 24 hr 00:00: mouth at [place] tablet 00 bedtime. [facility] divalproex 2020-0 Yes [id number] 500mg Take 2 [facility] 250 mg 7-14 tablets by [facility] 24 hr 00:00: mouth at [place] tablet 00 bedtime. [facility] divalproex 2020-0 Yes [id number] 500mg Take 2 [facility] 250 mg 7-14 tablets by [facility] 24 hr 00:00: mouth at [place] tablet 00 bedtime. [facility] divalproex 2020-0 Yes [id number] 500mg Take 2 [facility] 250 mg 7-14 tablets by [facility] 24 hr 00:00: mouth at [place] tablet 00 bedtime. [facility] divalproex 2020-0 Yes [id number] 500mg Take 2 [facility] 250 mg 7-14 tablets by [facility] 24 hr 00:00: mouth at [place] tablet 00 bedtime. [facility] divalproex 2020-0 Yes [id number] 500mg Take 2 [facility] 250 mg 7-14 tablets by [facility] 24 hr 00:00: mouth at [place] tablet 00 bedtime. [facility] divalproex 2020-0 Yes [id number] 500mg Take 2 [facility] 250 mg 7-14 tablets by [facility] 24 hr 00:00: mouth at [place] tablet 00 bedtime. [facility] divalproex 2020-0 Yes [id number] 500mg Take 2 [facility] 250 mg 7-14 tablets by [facility] 24 hr 00:00: mouth at [place] tablet 00 bedtime. [facility] divalproex 2020-0 Yes [id number] 500mg Take 2 [facility] 250 mg 7-14 tablets by [facility] 24 hr 00:00: mouth at [place] tablet 00 bedtime. [facility] divalproex 2020-0 Yes [id number] 500mg Take 2 [facility] 250 mg 7-14 tablets by [facility] 24 hr 00:00: mouth at [place] tablet 00 bedtime. [facility] divalproex 2020-0 Yes [id number] 500mg Take 2 [facility] 250 mg 7-14 tablets by [facility] 24 hr 00:00: mouth at [place] tablet 00 bedtime. [facility] divalproex 2020-0 Yes [id number] 500mg Take 2 [facility] 250 mg 7-14 tablets by [facility] 24 hr 00:00: mouth at [place] tablet 00 bedtime. [facility] divalproex 2020-0 Yes [id number] 500mg Take 2 [facility] 250 mg 7-14 tablets by [facility] 24 hr 00:00: mouth at [place] tablet 00 bedtime. [facility] divalproex 2020-0 Yes [id number] 500mg Take 2 [facility] 250 mg 7-14 tablets by [facility] 24 hr 00:00: mouth at [place] tablet 00 bedtime. [facility] divalproex 2020-0 Yes [id number] 500mg Take 2 [facility] 250 mg 7-14 tablets by [facility] 24 hr 00:00: mouth at [place] tablet 00 bedtime. [facility] mirtazapine 2020-0 Yes [id number] 7.5mg Take 1 [facility] 7.5 mg 7-10 105 tablet by [facility] tablet 00:00: mouth at [place] 00 bedtime. [facility] mirtazapine 2020-0 Yes [id number] 7.5mg Take 1 [facility] 7.5 mg 7-10 105 tablet by [facility] tablet 00:00: mouth at [place] 00 bedtime. [facility] mirtazapine 2020-0 Yes [id number] 7.5mg Take 1 [facility] 7.5 mg 7-10 105 tablet by [facility] tablet 00:00: mouth at [place] [address] bedtime. [facility] mirtazapine 2020-0 Yes [id number] 7.5mg Take 1 [facility] 7.5 mg 7-10 105 tablet by [facility] tablet 00:00: mouth at [place] [address] bedtime. [facility] mirtazapine 2020-0 Yes [id number] 7.5mg Take 1 [facility] 7.5 mg 7-10 105 tablet by [facility] tablet 00:00: mouth at [place] bedtime. [facility] mirtazapine 2020-0 Yes [id number] 7.5mg Take 1 [facility] 7.5 mg 7-10 105 tablet by [facility] tablet 00:00: mouth at [place] bedtime. [facility] mirtazapine 2020-0 Yes [id number] 7.5mg Take 1 [facility] 7.5 mg 7-10 105 tablet by [facility] tablet 00:00: mouth at [place] [address] bedtime. [facility] mirtazapine 2020-0 Yes [id number] 7.5mg Take 1 [facility] 7.5 mg 7-10 105 tablet by [facility] of tablet 00:00: mouth at [place] [address] bedtime. [facility] mirtazapine 2020-0 Yes [id number] 7.5mg Take 1 [facility] 7.5 mg 7-10 105 tablet by [facility] of tablet 00:00: mouth at [place] [address] bedtime. [facility] mirtazapine 2020-0 Yes [id number] 7.5mg Take 1 [facility] 7.5 mg 7-10 105 tablet by [facility] of tablet 00:00: mouth at [place] [address] bedtime. [facility] mirtazapine 2020-0 Yes [id number] 7.5mg Take 1 [facility] 7.5 mg 7-10 105 tablet by [facility] of tablet 00:00: mouth at [place] [address] bedtime. [facility] mirtazapine 2020-0 Yes [id number] 7.5mg Take 1 [facility] 7.5 mg 7-10 105 tablet by [facility] tablet 00:00: mouth at [place] [address] bedtime. [facility] mirtazapine 2020-0 Yes [id number] 7.5mg Take 1 [facility] 7.5 mg 7-10 105 tablet by [facility] tablet 00:00: mouth at [place] [address] bedtime. [facility] mirtazapine 2020-0 Yes [id number] 7.5mg Take 1 [facility] 7.5 mg 7-10 105 tablet by [facility] tablet 00:00: mouth at [place] [address] bedtime. Medical Branch mirtazapine 2020-0 Yes [id number] 7.5mg Take 1 [facility] 7.5 mg 7-10 105 tablet by [facility] tablet 00:00: mouth at [place] [address] bedtime. [facility] mirtazapine 2020-0 Yes [id number] 7.5mg Take 1 [facility] 7.5 mg 7-10 105 tablet by [facility] tablet 00:00: mouth at [place] [address] bedtime. [facility] mirtazapine 2020-0 Yes [id number] 7.5mg Take 1 [facility] 7.5 mg 7-10 105 tablet by [facility] tablet 00:00: mouth at [place] [address] bedtime. [facility] mirtazapine 2020-0 Yes [id number] 7.5mg Take 1 [facility] 7.5 mg 7-10 105 tablet by [facility] tablet 00:00: mouth at [place] [address] bedtime. [facility] mirtazapine 2020-0 Yes [id number] 7.5mg Take 1 [facility] 7.5 mg 7-10 105 tablet by [facility] of tablet 00:00: mouth at [place] [address] bedtime. [facility] mirtazapine 2020-0 Yes [id number] 7.5mg Take 1 [facility] 7.5 mg 7-10 105 tablet by [facility] tablet 00:00: mouth at [place] [address] bedtime. [facility] mirtazapine 2020-0 Yes [id number] 7.5mg Take 1 [facility] 7.5 mg 7-10 105 tablet by [facility] tablet 00:00: mouth at [place] [address] bedtime. [facility] mirtazapine 2020-0 Yes [id number] 7.5mg Take 1 [facility] 7.5 mg 7-10 105 tablet by [facility] tablet 00:00: mouth at [place] [address] bedtime. [facility] paliperidon 2020-0 Yes [id number] TAKE 1 [facility] e 3 mg 24 4-24 TABLET BY [facility] o f hour tablet 00:00: MOUTH ONCE [place] 00 DAILY Medical Branch paliperidon 2020-0 Yes [id number] TAKE 1 [facility] e 3 mg 24 4-24 TABLET BY it[facility] o f hour tablet 00:00: MOUTH ONCE [place] 00 DAILY Medical Branch paliperidon 2020-0 Yes [id number] TAKE 1 [facility] e 3 mg 24 4-24 TABLET BY it[facility] o f hour tablet 00:00: MOUTH ONCE DAILY Medical Branch paliperidon 2020-0 Yes [id number] TAKE 1 [facility] e 3 mg 24 4-24 TABLET BY ity o f hour tablet 00:00: MOUTH ONCE DAILY Medical [facility] paliperidon 2020-0 Yes [id number] TAKE 1 [facility] e 3 mg 24 4-24 TABLET BY it[facility] o f hour tablet 00:00: MOUTH ONCE DAILY Medical [facility] paliperidon 2020-0 Yes [id number] TAKE 1 [facility] e 3 mg 24 4-24 TABLET BY it[facility] o f hour tablet 00:00: MOUTH ONCE DAILY [facility] paliperidon 2020-0 Yes [id number] TAKE 1 [facility] e 3 mg 24 4-24 TABLET BY it[facility] o f hour tablet 00:00: MOUTH ONCE DAILY Medical Branch paliperidon 2020-0 Yes [id number] TAKE 1 [facility] e 3 mg 24 4-24 TABLET BY it[facility] o f hour tablet 00:00: MOUTH ONCE DAILY Medical Branch paliperidon 2020-0 Yes [id number] TAKE 1 [facility] e 3 mg 24 4-24 TABLET BY ity o f hour tablet 00:00: MOUTH ONCE DAILY Medical Branch paliperidon 2020-0 Yes [id number] TAKE 1 [facility] e 3 mg 24 4-24 TABLET BY ity o f hour tablet 00:00: MOUTH ONCE DAILY Medical Branch paliperidon 2020-0 Yes [id number] TAKE 1 [facility] e 3 mg 24 4-24 TABLET BY ity o f hour tablet 00:00: MOUTH ONCE DAILY Medical Branch paliperidon 2020-0 Yes [id number] TAKE 1 [facility] e 3 mg 24 4-24 TABLET BY ity o f hour tablet 00:00: MOUTH ONCE DAILY Medical Branch paliperidon 2020-0 Yes [id number] TAKE 1 [facility] e 3 mg 24 4-24 TABLET BY ity o f hour tablet 00:00: MOUTH ONCE DAILY Medical Branch paliperidon 2020-0 Yes [id number] TAKE 1 [facility] e 3 mg 24 4-24 TABLET BY it[facility] o f hour tablet 00:00: MOUTH ONCE DAILY Medical Branch paliperidon 2020-0 Yes [id number] TAKE 1 [facility] e 3 mg 24 4-24 TABLET BY it[facility] o f hour tablet 00:00: MOUTH ONCE DAILY Medical Branch paliperidon 2020-0 Yes [id number] TAKE 1 [facility] e 3 mg 24 4-24 TABLET BY it[facility] o f hour tablet 00:00: MOUTH ONCE DAILY Medical Branch paliperidon 2020-0 Yes [id number] TAKE 1 [facility] e 3 mg 24 4-24 TABLET BY it[facility] o f hour tablet 00:00: MOUTH ONCE DAILY Medical Branch paliperidon 2020-0 Yes [id number] TAKE 1 [facility] e 3 mg 24 4-24 TABLET BY ity o f hour tablet 00:00: MOUTH ONCE DAILY [facility] Branch paliperidon 2020-0 Yes [id number] TAKE 1 [facility] e 3 mg 24 4-24 TABLET BY it[facility] o f hour tablet 00:00: MOUTH ONCE DAILY Medical Branch paliperidon 2020-0 Yes [id number] TAKE 1 [facility] e 3 mg 24 4-24 TABLET BY it[facility] o f hour tablet 00:00: MOUTH ONCE DAILY Medical Branch paliperidon 2020-0 Yes [id number] TAKE 1 [facility] e 3 mg 24 4-24 TABLET BY it[facility] o f hour tablet 00:00: MOUTH ONCE DAILY Medical Branch paliperidon 2019-0 Yes [id number] TAKE 1 [facility] e 3 mg 24 4-24 TABLET BY [facility] o f hour tablet 00:00: MOUTH ONCE DAILY [facility] Branch paliperidon 2020-0 Yes [id number] TAKE 1 [facility] e 3 mg 24 4-24 TABLET BY [facility] o f hour tablet 00:00: MOUTH ONCE DAILY [facility] Branch paliperidon 2020-0 Yes [id number] TAKE 1 [facility] e 3 mg 24 4-24 TABLET BY [facility] o f hour tablet 00:00: MOUTH ONCE DAILY [facility] Branch paliperidon 2020-0 Yes [id number] TAKE 1 [facility] e 3 mg 24 4-24 TABLET BY [facility] o f hour tablet 00:00: MOUTH ONCE DAILY [facility] Branch paliperidon 2020-0 Yes [id number] TAKE 1 [facility] e 3 mg 24 4-24 TABLET BY it[facility] o f hour tablet 00:00: MOUTH ONCE DAILY [facility] Branch paliperidon 2020-0 Yes [id number] TAKE 1 [facility] e 3 mg 24 4-24 TABLET BY ity o f hour tablet 00:00: MOUTH ONCE DAILY [facility] Branch paliperidon 2020-0 Yes [id number] TAKE 1 [facility] e 3 mg 24 4-24 TABLET BY it[facility] o f hour tablet 00:00: MOUTH ONCE [place] 00 DAILY Medical Branch divalproex 2020-0 Yes [id number] 500mg Take 2 [facility] ER 250 mg 4-23 tablets by [facility] 24 hr 00:00: mouth at [place] tablet 00 bedtime. [facility] Branch divalproex 2020-0 Yes [id number] 500mg Take 2 [facility] ER 250 mg 4-23 tablets by [facility] of 24 hr 00:00: mouth at [place] tablet 00 bedtime. [facility] Branch divalproex 2020-0 Yes [id number] 500mg Take 2 [facility] ER 250 mg 4-23 tablets by [facility] of 24 hr 00:00: mouth at [place] tablet 00 bedtime. [facility] divalproex 2020-0 Yes [id number] 500mg Take 2 [facility] ER 250 mg 4-23 tablets by [facility] of 24 hr 00:00: mouth at [place] tablet 00 bedtime. [facility] divalproex 2020-0 Yes [id number] 500mg Take 2 [facility] ER 250 mg 4-23 tablets by [facility] of 24 hr 00:00: mouth at [place] tablet 00 bedtime. [facility] Branch TOPIRAMATE 2020-0 Yes [id number] TAKE 1 [facility] 25 mg 4-22 TABLET BY [facility] of tablet 00:00: MOUTH TWO [place] TIMES Medical DAILY Branch TOPIRAMATE 2020-0 Yes [id number] TAKE 1 [facility] 25 mg 4-22 TABLET BY [facility] of tablet 00:00: MOUTH TWO [place] TIMES Medical DAILY Branch TOPIRAMATE 2020-0 Yes [id number] TAKE 1 [facility] 25 mg 4-22 TABLET BY ity of tablet 00:00: MOUTH TWO [place] TIMES Medical DAILY Branch TOPIRAMATE 2020-0 Yes [id number] TAKE 1 [facility] 25 mg 4-22 TABLET BY [facility] of tablet 00:00: MOUTH TWO [place] TIMES Medical DAILY Branch TOPIRAMATE 2020-0 Yes [id number] TAKE 1 [facility] 25 mg 4-22 TABLET BY [facility] of tablet 00:00: MOUTH TWO [place] TIMES Medical DAILY Branch TOPIRAMATE 2020-0 Yes [id number] TAKE 1 [facility] 25 mg 4-22 TABLET BY it[facility] of tablet 00:00: MOUTH TWO [place] TIMES Medical DAILY Branch TOPIRAMATE 2020-0 Yes [id number] TAKE 1 [facility] 25 mg 4-22 TABLET BY it[facility] of tablet 00:00: MOUTH TWO [place] TIMES Medical DAILY Branch TOPIRAMATE 2020-0 Yes [id number] TAKE 1 [facility] 25 mg 4-22 TABLET BY [facility] of tablet 00:00: MOUTH TWO [place] TIMES Medical DAILY Branch TOPIRAMATE 2020-0 Yes [id number] TAKE 1 [facility] 25 mg 4-22 TABLET BY [facility] of tablet 00:00: MOUTH TWO [place] TIMES Medical DAILY Branch TOPIRAMATE 2020-0 Yes [id number] TAKE 1 [facility] 25 mg 4-22 TABLET BY [facility] of tablet 00:00: MOUTH TWO [place] TIMES Medical DAILY Branch TOPIRAMATE 2020-0 Yes [id number] TAKE 1 [facility] 25 mg 4-22 TABLET BY [facility] of tablet 00:00: MOUTH TWO [place] TIMES Medical DAILY Branch TOPIRAMATE 2020-0 Yes [id number] TAKE 1 [facility] 25 mg 4-22 TABLET BY [facility] of tablet 00:00: MOUTH TWO [place] Medical DAILY Branch TOPIRAMATE 2020-0 Yes [id number] TAKE 1 [facility] 25 mg 4-22 TABLET BY [facility] of tablet 00:00: MOUTH TWO [place] Medical DAILY Branch TOPIRAMATE 2020-0 Yes [id number] TAKE 1 [facility] 25 mg 4-22 TABLET BY [facility] of tablet 00:00: MOUTH TWO [place] Medical DAILY Branch TOPIRAMATE 2020-0 Yes [id number] TAKE 1 [facility] 25 mg 4-22 TABLET BY [facility] of tablet 00:00: [facility] TWO [place] Medical DAILY Branch TOPIRAMATE 2020-0 Yes [id number] TAKE 1 [facility] 25 mg 4-22 TABLET BY [facility] of tablet 00:00: MOUTH TWO [place] Medical DAILY Branch TOPIRAMATE 2020-0 Yes [id number] TAKE 1 [facility] 25 mg 4-22 TABLET BY [facility] of tablet 00:00: MOUTH TWO [place] TIMES Medical DAILY Branch TOPIRAMATE 2020-0 Yes [id number] TAKE 1 [facility] 25 mg 4-22 TABLET BY [facility] of tablet 00:00: MOUTH TWO [place] TIMES Medical DAILY Branch TOPIRAMATE 2020-0 Yes [id number] TAKE 1 [facility] 25 mg 4-22 TABLET BY [facility] of tablet 00:00: MOUTH TWO [place] TIMES Medical DAILY Branch TOPIRAMATE 2020-0 Yes [id number] TAKE 1 [facility] 25 mg 4-22 TABLET BY [facility] of tablet 00:00: MOUTH TWO [place] TIMES Medical DAILY Branch TOPIRAMATE 2020-0 Yes [id number] TAKE 1 [facility] 25 mg 4-22 TABLET BY [facility] of tablet 00:00: MOUTH TWO [place] TIMES Medical DAILY Branch TOPIRAMATE 2020-0 Yes [id number] TAKE 1 [facility] 25 mg 4-22 TABLET BY [facility] of tablet 00:00: MOUTH TWO [place] Medical DAILY Branch TOPIRAMATE 2020-0 Yes [id number] TAKE 1 [facility] 25 mg 4-22 TABLET BY [facility] of tablet 00:00: MOUTH TWO [place] TIMES Medical DAILY Branch TOPIRAMATE 2020-0 Yes [id number] TAKE 1 [facility] 25 mg 4-22 TABLET BY [facility] of tablet 00:00: MOUTH TWO [place] TIMES Medical DAILY Branch TOPIRAMATE 2020-0 Yes [id number] TAKE 1 [facility] 25 mg 4-22 TABLET BY [facility] of tablet 00:00: MOUTH TWO [place] Medical DAILY Branch TOPIRAMATE 2020-0 Yes [id number] TAKE 1 [facility] 25 mg 4-22 TABLET BY [facility] of tablet 00:00: MOUTH TWO [place] Medical DAILY Branch TOPIRAMATE 2020-0 Yes [id number] TAKE 1 [facility] 25 mg 4-22 TABLET BY [facility] of tablet 00:00: MOUTH TWO [place] Medical DAILY Branch TOPIRAMATE 2020-0 Yes [id number] TAKE 1 [facility] 25 mg 4-22 TABLET BY [facility] of tablet 00:00: MOUTH TWO [place] Medical DAILY Branch TOPIRAMATE 2020-0 Yes [id number] TAKE 1 [facility] 25 mg 4-22 TABLET BY [facility] of tablet 00:00: MOUTH TWO [place] Medical DAILY Branch TOPIRAMATE 2020-0 Yes [id number] TAKE 1 [facility] 25 mg 4-22 TABLET BY [facility] of tablet 00:00: MOUTH TWO [place] TIMES Medical DAILY Branch TOPIRAMATE 2020-0 Yes [id number] TAKE 1 [facility] 25 mg 4-22 TABLET BY [facility] of tablet 00:00: MOUTH TWO [place] Medical DAILY Branch TOPIRAMATE 2020-0 Yes [id number] TAKE 1 [facility] 25 mg 4-22 TABLET BY [facility] of tablet 00:00: MOUTH TWO [place] TIMES Medical DAILY Branch TOPIRAMATE 2020-0 Yes [id number] TAKE 1 [facility] 25 mg 4-22 TABLET BY [facility] of tablet 00:00: MOUTH TWO [place] TIMES Medical DAILY Branch TOPIRAMATE 2020-0 Yes [id number] TAKE 1 [facility] 25 mg 4-22 TABLET BY [facility] of tablet 00:00: MOUTH TWO [place] TIMES Medical DAILY Branch TOPIRAMATE 2020-0 Yes [id number] TAKE 1 [facility] 25 mg 4-22 TABLET BY [facility] of tablet 00:00: MOUTH TWO [place] TIMES Medical DAILY Branch TOPIRAMATE 2020-0 Yes [id number] TAKE 1 [facility] 25 mg 4-22 TABLET BY [facility] of tablet 00:00: MOUTH TWO [place] TIMES Medical DAILY Branch TOPIRAMATE 2020-0 Yes [id number] TAKE 1 [facility] 25 mg 4-22 TABLET BY [facility] of tablet 00:00: MOUTH TWO [place] TIMES Medical DAILY Branch TOPIRAMATE 2020-0 Yes [id number] TAKE 1 [facility] 25 mg 4-22 TABLET BY [facility] of tablet 00:00: MOUTH TWO [place] TIMES Medical DAILY Branch TOPIRAMATE 2020-0 Yes [id number] TAKE 1 [facility] 25 mg 4-22 TABLET BY [facility] of tablet 00:00: MOUTH TWO [place] TIMES Medical DAILY Branch TOPIRAMATE 2020-0 Yes [id number] TAKE 1 [facility] 25 mg 4-22 TABLET BY [facility] of tablet 00:00: MOUTH TWO [place] TIMES Medical DAILY Branch TOPIRAMATE 2020-0 Yes [id number] TAKE 1 [facility] 25 mg 4-22 TABLET BY [facility] of tablet 00:00: MOUTH TWO [place] TIMES Medical DAILY Branch TOPIRAMATE 2020-0 Yes [id number] TAKE 1 [facility] 25 mg 4-22 TABLET BY [facility] of tablet 00:00: MOUTH TWO [place] TIMES Medical DAILY Branch clonazePAM 2020-0 Yes [id number] .5mg Take 1 [facility] nivers 0.5 mg 3-17 tablet by [facility] of tablet 00:00: mouth at [place] [address] bedtime. Medical Branch clonazePAM 2020-0 Yes [id number] .5mg Take 1 [facility] nivers 0.5 mg 3-17 tablet by [facility] of tablet 00:00: mouth at [place] [address] bedtime. Medical Branch clonazePAM 2020-0 Yes [id number] .5mg Take 1 [facility] nivers 0.5 mg 3-17 tablet by [facility] of tablet 00:00: mouth at [place] [address] bedtime. Medical Branch clonazePAM 2020-0 Yes [id number] .5mg Take 1 [facility] nivers 0.5 mg 3-17 tablet by [facility] of tablet 00:00: mouth at [place] [address] bedtime. Medical Branch clonazePAM 2020-0 Yes [id number] .5mg Take 1 [facility] nivers 0.5 mg 3-17 tablet by [facility] of tablet 00:00: mouth at [place] [address] bedtime. [facility] Branch clonazePAM 2020-0 Yes [id number] .5mg Take 1 [facility] nivers 0.5 mg 3-17 tablet by [facility] of tablet 00:00: mouth at [place] [address] bedtime. [facility] Branch clonazePAM 2020-0 Yes [id number] .5mg Take 1 [facility] nivers 0.5 mg 3-17 tablet by [facility] of tablet 00:00: mouth at [place] [address] bedtime. [facility] Branch clonazePAM 2020-0 Yes [id number] .5mg Take 1 [facility] nivers 0.5 mg 3-17 tablet by [facility] of tablet 00:00: mouth at [place] [address] bedtime. [facility] Branch clonazePAM 2020-0 Yes [id number] .5mg Take 1 [facility] nivers 0.5 mg 3-17 tablet by [facility] of tablet 00:00: mouth at [place] [address] bedtime. [facility] Branch clonazePAM 2020-0 Yes [id number] .5mg Take 1 [facility] nivers 0.5 mg 3-17 tablet by [facility] of tablet 00:00: mouth at [place] [address] bedtime. [facility] Branch clonazePAM 2020-0 Yes [id number] .5mg Take 1 [facility] nivers 0.5 mg 3-17 tablet by [facility] of tablet 00:00: mouth at [place] [address] bedtime. [facility] Branch clonazePAM 2020-0 Yes [id number] .5mg Take 1 [facility] nivers 0.5 mg 3-17 tablet by [facility] of tablet 00:00: mouth at [place] [address] bedtime. [facility] Branch clonazePAM 2020-0 Yes [id number] .5mg Take 1 [facility] nivers 0.5 mg 3-17 tablet by [facility] of tablet 00:00: mouth at [place] [address] bedtime. [facility] Branch clonazePAM 2020-0 Yes [id number] .5mg Take 1 U nivers 0.5 mg 3-17 tablet by [facility] of tablet 00:00: mouth at [place] [address] bedtime. [facility] Branch clonazePAM 2020-0 Yes [id number] .5mg Take 1 [facility] nivers 0.5 mg 3-17 tablet by [facility] of tablet 00:00: mouth at [place] [address] bedtime. [facility] Branch clonazePAM 2020-0 Yes [id number] .5mg Take 1 [facility] nivers 0.5 mg 3-17 tablet by [facility] of tablet 00:00: mouth at [place] [address] bedtime. [facility] Branch clonazePAM 2020-0 Yes [id number] .5mg Take 1 [facility] nivers 0.5 mg 3-17 tablet by [facility] of tablet 00:00: mouth at [place] [address] bedtime. [facility] Branch clonazePAM 2020-0 Yes [id number] .5mg Take 1 [facility] nivers 0.5 mg 3-17 tablet by [facility] of tablet 00:00: mouth at [place] [address] bedtime. [facility] Branch clonazePAM 2020-0 Yes [id number] .5mg Take 1 [facility] nivers 0.5 mg 3-17 tablet by [facility] of tablet 00:00: mouth at [place] [address] bedtime. [facility] Branch clonazePAM 2020-0 Yes [id number] .5mg Take 1 [facility] nivers 0.5 mg 3-17 tablet by [facility] of tablet 00:00: mouth at [place] [address] bedtime. [facility] Branch clonazePAM 2020-0 Yes [id number] .5mg Take 1 [facility] nivers 0.5 mg 3-17 tablet by [facility] of tablet 00:00: mouth at [place] [address] bedtime. [facility] Branch clonazePAM 2020-0 Yes [id number] .5mg Take 1 [facility] nivers 0.5 mg 3-17 tablet by [facility] of tablet 00:00: mouth at [place] [address] bedtime. [facility] Branch clonazePAM 2020-0 Yes [id number] .5mg Take 1 [facility] nivers 0.5 mg 3-17 tablet by [facility] of tablet 00:00: mouth at [place] [address] bedtime. [facility] Branch clonazePAM 2020-0 Yes [id number] .5mg Take 1 [facility] nivers 0.5 mg 3-17 tablet by [facility] of tablet 00:00: mouth at [place] [address] bedtime. [facility] clonazePAM 2020-0 Yes [id number] .5mg Take 1 [facility] nivers 0.5 mg 3-17 tablet by [facility] of tablet 00:00: mouth at [place] [address] bedtime. [facility] clonazePAM 2020-0 Yes [id number] .5mg Take 1 [facility] nivers 0.5 mg 3-17 tablet by [facility] of tablet 00:00: mouth at [place] [address] bedtime. [facility] Branch clonazePAM 2020-0 Yes [id number] .5mg Take 1 [facility] nivers 0.5 mg 3-17 tablet by [facility] of tablet 00:00: mouth at [place] [address] bedtime. [facility] Branch clonazePAM 2020-0 Yes [id number] .5mg Take 1 [facility] nivers 0.5 mg 3-17 tablet by [facility] of tablet 00:00: mouth at [place] [address] bedtime. [facility] Branch clonazePAM 2020-0 Yes [id number] .5mg Take 1 [facility] nivers 0.5 mg 3-17 tablet by [facility] of tablet 00:00: mouth at [place] 00 bedtime. [facility] Branch clonazePAM 2020-0 Yes [id number] .5mg Take 1 [facility] nivers 0.5 mg 3-17 tablet by [facility] of tablet 00:00: mouth at [place] 00 bedtime. [facility] clonazePAM 2020-0 Yes [id number] .5mg Take 1 U nivers 0.5 mg 3-17 tablet by [facility] tablet 00:00: mouth at [place] 00 bedtime. [facility] clonazePAM 2020-0 Yes [id number] .5mg Take 1 U nivers 0.5 mg 3-17 tablet by [facility] tablet 00:00: mouth at [place] 00 bedtime. [facility] clonazePAM 2020-0 Yes [id number] .5mg Take 1 [facility] n[facility] 0.5 mg 3-17 tablet by [facility] tablet 00:00: mouth at [place] 00 bedtime. [facility] divalproex 2020-0 Yes [id number] 500mg Take 2 [facility] 250 mg 2-24 tablets by [facility] 24 hr 00:00: mouth at [place] tablet 00 bedtime. [facility] divalproex 2020-0 Yes [id number] 500mg Take 2 [facility] 250 mg 2-24 tablets by [facility] 24 hr 00:00: mouth at [place] tablet 00 bedtime. [facility] divalproex 2020-0 Yes [id number] 500mg Take 2 [facility] ER 250 mg 2-24 tablets by [facility] of 24 hr 00:00: mouth at [place] tablet 00 bedtime. [facility] divalproex 2020-0 Yes [id number] 500mg Take 2 [facility] 250 mg 2-24 tablets by [facility] of 24 hr 00:00: mouth at [place] tablet 00 bedtime. [facility] divalproex 2020-0 Yes [id number] 500mg Take 2 [facility] 250 mg 2-24 tablets by [facility] of 24 hr 00:00: mouth at [place] tablet 00 bedtime. [facility] divalproex 2020-0 Yes [id number] 500mg Take 2 [facility] ER 250 mg 2-24 tablets by [facility] of 24 hr 00:00: mouth at [place] tablet 00 bedtime. [facility] MIRTAZAPINE 2020-0 Yes [id number] TAKE 1 [facility] 7.5 mg 2-14 105 TABLET BY ity of tablet 00:00: MOUTH [place] 00 EVERYDAY Medical AT BEDTIME Branch MIRTAZAPINE 2020-0 Yes [id number] TAKE 1 [facility] 7.5 mg 2-14 105 TABLET BY ity of tablet 00:00: [facility] 00 EVERYDAY Medical AT BEDTIME Branch MIRTAZAPINE 2020-0 Yes [id number] TAKE 1 [facility] 7.5 mg 2-14 105 TABLET BY ity of tablet 00:00: [facility] 00 EVERYDAY Medical AT BEDTIME Branch MIRTAZAPINE 2020-0 Yes [id number] TAKE 1 [facility] 7.5 mg 2-14 105 TABLET BY ity of tablet 00:00: [facility] 00 EVERYDAY Medical AT BEDTIME Branch MIRTAZAPINE 2020-0 Yes [id number] TAKE 1 [facility] 7.5 mg 2-14 105 TABLET BY ity of tablet 00:00: [facility] 00 EVERYDAY Medical AT BEDTIME Branch MIRTAZAPINE 2020-0 Yes [id number] TAKE 1 [facility] 7.5 mg 2-14 105 TABLET BY ity of tablet 00:00: [facility] 00 EVERYDAY Medical AT BEDTIME Branch MIRTAZAPINE 2020-0 Yes [id number] TAKE 1 [facility] 7.5 mg 2-14 105 TABLET BY ity of tablet 00:00: [facility] EVERYDAY Medical AT BEDTIME Branch MIRTAZAPINE 2020-0 Yes [id number] TAKE 1 [facility] 7.5 mg 2-14 105 TABLET BY ity of tablet 00:00: [facility] 00 EVERYDAY Medical AT BEDTIME [facility] MIRTAZAPINE 2020-0 Yes [id number] TAKE 1 [facility] 7.5 mg 2-14 105 TABLET BY ity of tablet 00:00: [facility] EVERYDAY Medical AT BEDTIME Branch MIRTAZAPINE 2020-0 Yes [id number] TAKE 1 [facility] 7.5 mg 2-14 105 TABLET BY ity of tablet 00:00: [facility] Take by Un jhonatan [...] tablet 27 Medical Branch mirtazapine 2020-0 Yes [id number] 7.5mg Take 1 [facility] 7.5 mg 1-23 105 tablet by ity of tablet 00:00: mouth at [place] 00 bedtime. [facility] clonazePAM 2020-0 Yes [id number] .5mg Take 1 [facility] nivers 0.5 mg 1-23 tablet by ity of tablet 00:00: mouth at [place] 00 bedtime. [facility] paliperidon 2020-0 Yes [id number] TAKE 1 [facility] e 3 mg 24 1-23 TABLET BY ity o f hour tablet 00:00: MOUTH ONCE [place] DAILY Medical Branch mirtazapine 2020-0 Yes [id number] 7.5mg Take 1 [facility] 7.5 mg 1-23 105 tablet by ity of tablet 00:00: mouth at [place] 00 bedtime. [facility] clonazePAM 2020-0 Yes [id number] .5mg Take 1 [facility] nivers 0.5 mg 1-23 tablet by ity of tablet 00:00: mouth at [place] [address] bedtime. Medical Branch paliperidon 2020-0 Yes [id number] TAKE 1 [facility] e 3 mg 24 1-23 TABLET BY ity o f hour tablet 00:00: MOUTH ONCE [place] DAILY Medical Branch mirtazapine 2020-0 Yes [id number] 7.5mg Take 1 [facility] 7.5 mg 1-23 105 tablet by ity of tablet 00:00: mouth at [place] [address] bedtime. Medical Branch clonazePAM 2020-0 Yes [id number] .5mg Take 1 [facility] nivers 0.5 mg 1-23 tablet by ity of tablet 00:00: mouth at [place] [address] bedtime. Medical Branch paliperidon 2020-0 Yes [id number] TAKE 1 [facility] e 3 mg 24 1-23 TABLET BY ity o f hour tablet 00:00: MOUTH ONCE [place] DAILY Medical Branch mirtazapine 2020-0 Yes [id number] 7.5mg Take 1 [facility] 7.5 mg 1-23 105 tablet by ity of tablet 00:00: mouth at [place] [address] bedtime. Medical Branch clonazePAM 2020-0 Yes [id number] .5mg Take 1 [facility] nivers 0.5 mg 1-23 tablet by ity of tablet 00:00: mouth at [place] [address] bedtime. Medical Branch paliperidon 2020-0 Yes [id number] TAKE 1 [facility] e 3 mg 24 1-23 TABLET BY ity o f hour tablet 00:00: MOUTH ONCE [place] DAILY Medical Branch clonazePAM 2020-0 Yes [id number] .5mg Take 1 [facility] 0.5 mg 1-23 tablet by ity of tablet 00:00: mouth at [place] 00 bedtime. [facility] paliperidon 2019-0 Yes [id number] TAKE 1 [facility] e 3 mg 24 1-23 TABLET BY ity o f hour tablet 00:00: MOUTH ONCE DAILY Medical Branch clonazePAM 2019-0 Yes [id number] .5mg Take 1 [facility]ivers 0.5 mg 1-23 tablet by ity of tablet 00:00: mouth at [place] 00 bedtime. [facility] paliperidon 2019-0 Yes [id number] TAKE 1 [facility] e 3 mg 24 1-23 TABLET BY ity o f hour tablet 00:00: MOUTH ONCE DAILY Medical Branch paliperidon 2019-0 Yes [id number] TAKE 1 [facility] e 3 mg 24 1-23 TABLET BY ity o f hour tablet 00:00: MOUTH ONCE DAILY Medical Branch paliperidon 2019-0 Yes [id number] TAKE 1 [facility] e 3 mg 24 1-23 TABLET BY ity o f hour tablet 00:00: MOUTH ONCE DAILY Medical Branch paliperidon 2019-0 Yes [id number] TAKE 1 [facility] e 3 mg 24 1-23 TABLET BY ity o f hour tablet 00:00: MOUTH ONCE DAILY Medical Branch paliperidon 2019-0 Yes [id number] TAKE 1 [facility] e 3 mg 24 1-23 TABLET BY ity o f hour tablet 00:00: MOUTH ONCE DAILY Medical Branch paliperidon 2019-0 Yes [id number] TAKE 1 [facility] e 3 mg 24 1-23 TABLET BY ity o f hour tablet 00:00: MOUTH ONCE DAILY Medical Branch paliperidon 2019-0 Yes [id number] TAKE 1 [facility] e 3 mg 24 1-23 TABLET BY ity o f hour tablet 00:00: MOUTH ONCE DAILY Medical Branch propranolol 2018-05 Yes [id number] 10mg Take 1 [facility] 10 mg 1-22 tablet by ity of tablet 00:00: mouth 2 (two) Medical times Branch daily as needed (tremor). propranolol 2018-05 Yes [id number] 10mg Take 1 [facility] 10 mg 1-22 tablet by ity of tablet 00:00: mouth 2 (two) Medical times [place] daily as needed (tremor). propranolol 2018-05 Yes [id number] 10mg Take 1 [facility] 10 mg 1-22 tablet by ity of tablet 00:00: mouth 2 00 (two) Medical times Branch daily as needed (tremor). propranolol 2018-05 Yes [id number] 10mg Take 1 [facility] 10 mg 1-22 tablet by ity of tablet 00:00: mouth 2 00 (two) Medical times Branch daily as needed (tremor). propranolol 2018-05 Yes [id number] 10mg Take 1 [facility] 10 mg 1-22 tablet by ity of tablet 00:00: mouth 2 00 (two) Medical times Branch daily as needed (tremor). propranolol 2018-05 Yes [id number] 10mg Take 1 [facility] 10 mg 1-22 tablet by ity of tablet 00:00: mouth 2 00 (two) Medical times Branch daily as needed (tremor). propranolol 2018-05 Yes [id number] 10mg Take 1 [facility] 10 mg 1-22 tablet by ity of tablet 00:00: mouth 2 00 (two) Medical times Branch daily as needed (tremor). propranolol 2018-05 Yes [id number] 10mg Take 1 [facility] 10 mg 1-22 tablet by ity of tablet 00:00: mouth 2 (two) Medical times Branch daily as needed (tremor). propranolol 2018-05 Yes [id number] 10mg Take 1 [facility] 10 mg 1-22 tablet by ity of tablet 00:00: mouth 2 00 (two) Medical times Branch daily as needed (tremor). propranolol 2018-05 Yes [id number] 10mg Take 1 [facility] 10 mg 1-22 tablet by ity of tablet 00:00: mouth 2 00 (two) Medical times Branch daily as needed (tremor). propranolol 2018-05 Yes [id number] 10mg Take 1 [facility] 10 mg 1-22 tablet by ity of tablet 00:00: mouth 2 00 (two) Medical times Branch daily as needed (tremor). propranolol 2018-05 Yes [id number] 10mg Take 1 [facility] 10 mg 1-22 tablet by [facility]y of tablet 00:00: mouth 2 00 (two) Medical times Branch daily as needed (tremor). propranolol 2018-05 Yes [id number] 10mg Take 1 [facility] 10 mg 1-22 tablet by ity of tablet 00:00: mouth 2 00 (two) Medical times Branch daily as needed (tremor). propranolol 2018-05 Yes [id number] 10mg Take 1 [facility] 10 mg 1-22 tablet by ity of tablet 00:00: mouth 2 [place] 00 (two) Medical times Branch daily as needed (tremor). propranolol 2018-05 Yes [id number] 10mg Take 1 [facility] 10 mg 1-22 tablet by ity of tablet 00:00: mouth 2 [place] 00 (two) Medical times Branch daily as needed (tremor). propranolol 2018-05 Yes [id number] 10mg Take 1 [facility] 10 mg 1-22 tablet by [facility]y of tablet 00:00: mouth 2 [place] 00 (two) Medical times Branch daily as needed (tremor). propranolol 2018-05 Yes [id number] 10mg Take 1 [facility] 10 mg 1-22 tablet by ity of tablet 00:00: mouth 2 00 (two) Medical times Branch daily as needed (tremor). propranolol 2018-05 Yes [id number] 10mg Take 1 [facility] 10 mg 1-22 tablet by ity of tablet 00:00: mouth 2 00 (two) Medical times Branch daily as needed (tremor). propranolol 2018-05 Yes [id number] 10mg Take 1 [facility] 10 mg 1-22 tablet by ity of tablet 00:00: mouth 2 00 (two) Medical times Branch daily as needed (tremor). propranolol 2018-05 Yes [id number] 10mg Take 1 [facility] 10 mg 1-22 tablet by ity of tablet 00:00: mouth 2 00 (two) Medical times Branch daily as needed (tremor). propranolol 2018-05 Yes [id number] 10mg Take 1 [facility] 10 mg 0-25 tablet by ity of tablet 00:00: mouth [place] 00 daily. Medical Branch propranolol 2018-05 Yes [id number] 10mg Take 1 [facility] 10 mg 0-25 [...] tablet 28 Medical Branch divalproex 2018-0 Yes [id number] 500mg Take 2 [facility] ER 250 mg 9-10 tablets by ity of 24 hr 00:00: mouth at [place] tablet 00 bedtime. [facility] Branch divalproex Yes [id number] 500mg Take 2 [facility] ER 250 mg 9-10 tablets by ity of 24 hr 00:00: mouth at [place] tablet 00 bedtime. [facility] Branch divalproex 2018- Yes [id number] 500mg Take 2 [facility] ER 250 mg 9-10 tablets by ity of 24 hr 00:00: mouth at [place] tablet 00 bedtime. [facility] Branch divalproex Yes [id number] 500mg Take 2 [facility] ER 250 mg 9-10 tablets by ity of 24 hr 00:00: mouth at [place] tablet 00 bedtime. [facility] divalproex 0 Yes [id number] 500mg Take 2 [facility] ER 250 mg 9-10 tablets by ity of 24 hr 00:00: mouth at [place] tablet 00 bedtime. [facility] divalproex 0 Yes [id number] 500mg Take 2 [facility] ER 250 mg 9-10 tablets by ity of 24 hr 00:00: mouth at [place] tablet 00 bedtime. [facility] divalproex 0 Yes [id number] 500mg Take 2 [facility] ER 250 mg 9-10 tablets by ity of 24 hr 00:00: mouth at [place] tablet 00 bedtime. [facility] divalproex 2018-0 Yes [id number] 500mg Take 2 [facility] ER 250 mg 9-10 tablets by ity of 24 hr 00:00: mouth at [place] tablet 00 bedtime. [facility] divalproex 2018-0 Yes [id number] 500mg Take 2 [facility] ER 250 mg 9-10 tablets by ity of 24 hr 00:00: mouth at [place] tablet 00 bedtime. [facility] divalproex 2018- Yes [id number] 500mg Take 2 [facility] ER 250 mg 9-10 tablets by ity of 24 hr 00:00: mouth at [place] tablet 00 bedtime. [facility] divalproex 2018- Yes [id number] 500mg Take 2 [facility] ER 250 mg 9-10 tablets by ity of 24 hr 00:00: mouth at [place] tablet 00 bedtime. [facility] divalproex Yes [id number] 500mg Take 2 [facility] ER 250 mg 9-10 tablets by ity of 24 hr 00:00: mouth at [place] tablet 00 bedtime. [facility] divalproex Yes [id number] 500mg Take 2 [facility] ER 250 mg 9-10 tablets by ity of 24 hr 00:00: mouth at [place] tablet 00 bedtime. [facility] divalproex Yes [id number] 500mg Take 2 [facility] ER 250 mg 9-10 tablets by ity of 24 hr 00:00: mouth at [place] tablet 00 bedtime. [facility] divalproex Yes [id number] 500mg Take 2 [facility] ER 250 mg 9-10 tablets by ity of 24 hr 00:00: mouth at [place] tablet 00 bedtime. [facility] divalproex Yes [id number] 500mg Take 2 [facility] ER 250 mg 9-10 tablets by ity of 24 hr 00:00: mouth at [place] tablet 00 bedtime. [facility] divalproex Yes [id number] 500mg Take 2 [facility] ER 250 mg 9-10 tablets by ity of 24 hr 00:00: mouth at [place] tablet 00 bedtime. [facility] divalproex Yes [id number] 500mg Take 2 [facility] ER 250 mg 9-10 tablets by ity of 24 hr 00:00: mouth at [place] tablet 00 bedtime. [facility] divalproex Yes [id number] 500mg Take 2 [facility] ER 250 mg 9-10 tablets by ity of 24 hr 00:00: mouth at [place] tablet 00 bedtime. [facility] divalproex Yes [id number] 500mg Take 2 [facility] ER 250 mg 9-10 tablets by ity of 24 hr 00:00: mouth at [place] tablet 00 bedtime. [facility] divalproex 2018- Yes [id number] 500mg Take 2 [facility] ER 250 mg 9-10 tablets by ity of 24 hr 00:00: mouth at [place] tablet 00 bedtime. [facility] Branch TOPIRAMATE 2019-0 Yes [id number] TAKE 1 [facility] 25 mg 8-28 TABLET BY ity of tablet 00:00: MOUTH TWO [place] Medical DAILY Branch TOPIRAMATE 2019-0 Yes [id number] TAKE 1 [facility] 25 mg 8-28 TABLET BY ity of tablet 00:00: MOUTH TWO [place] Medical DAILY Branch TOPIRAMATE 2019-0 Yes [id number] TAKE 1 [facility] 25 mg 8-28 TABLET BY ity of tablet 00:00: MOUTH TWO [place] Medical DAILY Branch TOPIRAMATE 2019-0 Yes [id number] TAKE 1 [facility] 25 mg 8-28 TABLET BY ity of tablet 00:00: MOUTH TWO [place] Medical DAILY Branch TOPIRAMATE 2019-0 Yes [id number] TAKE 1 [facility] 25 mg 8-28 TABLET BY ity of tablet 00:00: MOUTH TWO [place] Medical DAILY Branch TOPIRAMATE 2019-0 Yes [id number] TAKE 1 [facility] 25 mg 8-28 TABLET BY ity of tablet 00:00: MOUTH TWO [place] Medical DAILY Branch TOPIRAMATE 2019-0 Yes [id number] TAKE 1 [facility] 25 mg 8-28 TABLET BY ity of tablet 00:00: MOUTH TWO [place] Medical DAILY Branch TOPIRAMATE 2019-0 Yes [id number] TAKE 1 [facility] 25 mg 8-28 TABLET BY ity of tablet 00:00: [facility] Medical DAILY Branch TOPIRAMATE 2019-0 Yes [id number] TAKE 1 [facility] 25 mg 8-28 TABLET BY ity of tablet 00:00: MOUTH TWO [place] Medical DAILY Branch TOPIRAMATE 2019-0 Yes [id number] TAKE 1 [facility] 25 mg 8-28 TABLET BY ity of tablet 00:00: MOUTH TWO [place] Medical DAILY Branch TOPIRAMATE 2019-0 Yes [id number] TAKE 1 [facility] 25 mg 8-28 TABLET BY ity of tablet 00:00: MOUTH TWO [place] Medical DAILY Branch TOPIRAMATE 2019-0 Yes [id number] TAKE 1 [facility] 25 mg 8-28 TABLET BY ity of tablet 00:00: MOUTH TWO [place] Medical DAILY Branch TOPIRAMATE 2019-0 Yes [id number] TAKE 1 [facility] 25 mg 8-28 TABLET BY ity of tablet 00:00: MOUTH TWO [place] 00 TIMES Medical DAILY Branch TOPIRAMATE Yes [id number] TAKE 1 [facility] 25 mg 8-28 TABLET BY ity of tablet 00:00: MOUTH TWO [place] Medical DAILY Branch TOPIRAMATE Yes [id number] TAKE 1 [facility] 25 mg 8-28 TABLET BY ity of tablet 00:00: MOUTH TWO Medical DAILY Branch TOPIRAMATE Yes [id number] TAKE 1 [facility] 25 mg 8-28 TABLET BY ity of tablet 00:00: MOUTH TWO Medical DAILY Branch TOPIRAMATE Yes [id number] TAKE 1 [facility] 25 mg 8-28 TABLET BY ity of tablet 00:00: MOUTH TWO Medical DAILY Branch TOPIRAMATE 2018- 2020- No [id number] TAKE 1 [facility] 25 mg 8-28 04-22 TABLET BY ity of tablet 00:00: 00:00 MOUTH TWO [place] 00 :00 TIMES Medical DAILY Branch paliperidon Yes [id number] TAKE 1 [facility] e 3 mg 24 8-07 TABLET BY ity o f hour tablet 00:00: MOUTH ONCE DAILY Medical Branch PALIPERIDON Yes [id number] TAKE 1 [facility] E 3 mg 24 8-07 TABLET BY ity o f hour tablet 00:00: MOUTH ONCE DAILY Medical Branch paliperidon Yes [id number] TAKE 1 [facility] e 3 mg 24 8-07 TABLET BY ity o f hour tablet 00:00: MOUTH ONCE DAILY Medical Branch PALIPERIDON Yes [id number] TAKE 1 [facility] E 3 mg 24 8-07 TABLET BY ity o f hour tablet 00:00: MOUTH ONCE DAILY Medical Branch paliperidon Yes [id number] TAKE 1 [facility] e 3 mg 24 8-07 TABLET BY ity o f hour tablet 00:00: MOUTH ONCE DAILY Medical Branch PALIPERIDON 2019 Yes [id number] TAKE 1 [facility] E 3 mg 24 8-07 TABLET BY ity o f hour tablet 00:00: MOUTH ONCE DAILY Medical Branch paliperidon Yes [id number] TAKE 1 [facility] e 3 mg 24 8-07 TABLET BY ity o f hour tablet 00:00: MOUTH ONCE DAILY Medical Branch PALIPERIDON Yes [id number] TAKE 1 [facility] E 3 mg 24 8-07 TABLET BY ity o f hour tablet 00:00: MOUTH ONCE DAILY Medical Branch paliperidon 2019- Yes [id number] TAKE 1 [facility] e 3 mg 24 8-07 TABLET BY ity o f hour tablet 00:00: MOUTH ONCE DAILY Medical Branch PALIPERIDON 2019- Yes [id number] TAKE 1 [facility] E 3 mg 24 8-07 TABLET BY ity o f hour tablet 00:00: MOUTH ONCE DAILY Medical Branch paliperidon 2019 Yes [id number] TAKE 1 [facility] e 3 mg 24 8-07 TABLET BY ity o f hour tablet 00:00: MOUTH ONCE DAILY Medical Branch PALIPERIDON 2019 Yes [id number] TAKE 1 [facility] E 3 mg 24 8-07 TABLET BY ity o f hour tablet 00:00: MOUTH ONCE DAILY Medical Branch paliperidon 2019- Yes [id number] TAKE 1 [facility] e 3 mg 24 8-07 TABLET BY ity o f hour tablet 00:00: MOUTH ONCE DAILY Medical Branch PALIPERIDON 2019 Yes [id number] TAKE 1 [facility] E 3 mg 24 8-07 TABLET BY ity o f hour tablet 00:00: MOUTH ONCE DAILY Medical Branch paliperidon 2019- Yes [id number] TAKE 1 [facility] e 3 mg 24 8-07 TABLET BY ity o f hour tablet 00:00: MOUTH ONCE DAILY Medical Branch PALIPERIDON 2019- Yes [id number] TAKE 1 [facility] E 3 mg 24 8-07 TABLET BY ity o f hour tablet 00:00: MOUTH ONCE DAILY Medical Branch paliperidon 2019 Yes [id number] TAKE 1 [facility] e 3 mg 24 8-07 TABLET BY ity o f hour tablet 00:00: MOUTH ONCE DAILY Medical Branch PALIPERIDON 2019 Yes [id number] TAKE 1 [facility] E 3 mg 24 8-07 TABLET BY ity o f hour tablet 00:00: MOUTH ONCE DAILY Medical Branch paliperidon 2019- Yes [id number] TAKE 1 [facility] e 3 mg 24 8-07 TABLET BY ity o f hour tablet 00:00: MOUTH ONCE DAILY Medical Branch PALIPERIDON 2019 Yes [id number] TAKE 1 [facility] E 3 mg 24 8-07 TABLET BY ity o f hour tablet 00:00: MOUTH ONCE DAILY Medical Branch paliperidon 2019 Yes [id number] TAKE 1 [facility] e 3 mg 24 8-07 TABLET BY ity o f hour tablet 00:00: MOUTH ONCE DAILY Medical Branch PALIPERIDON Yes [id number] TAKE 1 [facility] E 3 mg 24 8-07 TABLET BY ity o f hour tablet 00:00: MOUTH ONCE DAILY Medical Branch paliperidon Yes [id number] TAKE 1 [facility] e 3 mg 24 8-07 TABLET BY ity o f hour tablet 00:00: MOUTH ONCE DAILY Medical Branch PALIPERIDON Yes [id number] TAKE 1 [facility] E 3 mg 24 8-07 TABLET BY ity o f hour tablet 00:00: MOUTH ONCE DAILY Medical Branch paliperidon Yes [id number] TAKE 1 [facility] e 3 mg 24 8-07 TABLET BY ity o f hour tablet 00:00: MOUTH ONCE DAILY Medical Branch paliperidon Yes [id number] TAKE 1 [facility] e 3 mg 24 8-07 TABLET BY ity o f hour tablet 00:00: MOUTH ONCE DAILY Medical Branch paliperidon Yes [id number] TAKE 1 [facility] e 3 mg 24 8-07 TABLET BY ity o f hour tablet 00:00: MOUTH ONCE DAILY Medical Branch paliperidon Yes [id number] TAKE 1 [facility] e 3 mg 24 8-07 TABLET BY ity o f hour tablet 00:00: MOUTH ONCE DAILY Medical Branch PALIPERIDON Yes [id number] TAKE 1 [facility] E 3 mg 24 8-07 TABLET BY ity o f hour tablet 00:00: MOUTH ONCE DAILY Medical Branch clonazePAM Yes [id number] .5mg Take 2 [facility] 0.25 mg 7-26 105 tablets by ity of disintegrat 00:00: mouth at [place] ing tablet 00 bedtime. Medic al Branch clonazePAM Yes [id number] .5mg Take 2 [facility] 0.25 mg 7-26 105 tablets by ity of disintegrat 00:00: mouth at [place] tablet 00 bedtime. Medic al Branch clonazePAM Yes [id number] .5mg Take 2 [facility] 0.25 mg 7-26 105 tablets by ity of disintegrat 00:00: mouth at [place] ing tablet 00 bedtime. Medic al Branch clonazePAM 2019-0 Yes [id number] .5mg Take 2 [facility] 0.25 mg 7-26 105 tablets by ity of disintegrat 00:00: mouth at [place] ing tablet 00 bedtime. [facility] Branch clonazePAM 2019-0 Yes [id number] .5mg Take 2 [facility] 0.25 mg 7-26 105 tablets by ity of disintegrat 00:00: mouth at [place] ing tablet 00 bedtime. [facility] Branch clonazePAM 2019-0 Yes [id number] .5mg Take 2 [facility] 0.25 mg 7-26 105 tablets by ity of disintegrat 00:00: mouth at [place] ing tablet 00 bedtime. [facility] Branch clonazePAM 2018-0 Yes [id number] .5mg Take 2 [facility] 0.25 mg 7-26 105 tablets by ity of disintegrat 00:00: mouth at [place] ing tablet 00 bedtime. [facility] Branch clonazePAM 2018-0 Yes [id number] .5mg Take 2 [facility] 0.25 mg 7-26 105 tablets by ity of disintegrat 00:00: mouth at [place] ing tablet 00 bedtime. [facility] Branch clonazePAM 2018-0 Yes [id number] .5mg Take 2 [facility] 0.25 mg 7-26 105 tablets by ity of disintegrat 00:00: mouth at [place] ing tablet 00 bedtime. [facility] Branch clonazePAM 2018-0 Yes [id number] .5mg Take 2 [facility] 0.25 mg 7-26 105 tablets by ity of disintegrat 00:00: mouth at [place] ing tablet 00 bedtime. [facility] Branch clonazePAM 2019-0 Yes [id number] .5mg Take 2 [facility] 0.25 mg 7-26 105 tablets by ity of disintegrat 00:00: mouth at [place] ing tablet 00 bedtime. [facility] Branch clonazePAM 2019-0 Yes [id number] .5mg Take 2 [facility] 0.25 mg 7-26 105 tablets by ity of disintegrat 00:00: mouth at [place] ing tablet 00 bedtime. [facility] Branch clonazePAM 2019-0 Yes [id number] .5mg Take 2 [facility] 0.25 mg 7-26 105 tablets by ity of disintegrat 00:00: mouth at [place] ing tablet 00 bedtime. [facility] Branch clonazePAM 2019-0 Yes [id number] .5mg Take 2 [facility] 0.25 mg 7-26 105 tablets by ity of disintegrat 00:00: mouth at [place] ing tablet 00 bedtime. Medic al Branch clonazePAM 2019-0 Yes [id number] .5mg Take 2 [facility] 0.25 mg 7-26 105 tablets by ity of disintegrat 00:00: mouth at [place] ing tablet 00 bedtime. Medic al Branch clonazePAM 2019-0 Yes [id number] .5mg Take 2 [facility] 0.25 mg 7-26 105 tablets by ity of disintegrat 00:00: mouth at [place] ing tablet 00 bedtime. [facility] Branch spironolact 2019-0 Yes Univer s one 25 mg 4-11 ity of tablet 00:00: [place] [address] Medical Branch spironolact 2019-0 Yes Univer s one 25 mg 4-11 ity of tablet 00:00: [place] [address] Medical [facility] spironolact 2019-0 Yes Univer s one 25 mg 4-11 ity of tablet 00:00: [place] [address] Medical Branch spironolact 2019-0 Yes Univer s one 25 mg 4-11 ity of tablet 00:00: [place] [address] Medical [facility] spironolact 2019-0 Yes Univer s one 25 mg 4-11 ity of tablet 00:00: [place] [address] Medical [facility] spironolact 2019-0 Yes Univer s one 25 mg 4-11 ity of tablet 00:00: [place] [address] Medical [facility] spironolact 2019-0 Yes Univer s one 25 mg 4-11 ity of tablet 00:00: [place] [address] Medical Branch spironolact 2019-0 Yes Univer s one 25 mg 4-11 ity of tablet 00:00: [place] [address] Medical Branch spironolact 2019-0 Yes Univer s one 25 mg 4-11 ity of tablet 00:00: [place] [address] Medical Branch spironolact 2019-0 Yes Univer s one 25 mg 4-11 ity of tablet 00:00: [place] [address] Medical [facility] spironolact 2019-0 Yes Univer s one 25 mg 4-11 ity of tablet 00:00: [place] [address] Medical [facility] spironolact 2019-0 Yes Univer s one 25 mg 4-11 ity of tablet 00:00: [place] [address] Medical [facility] spironolact 2019-0 Yes Univer s one 25 mg 4-11 ity of tablet 00:00: [place] 00 Medical Branch spironolact 2019-0 Yes Univer s one 25 mg 4-11 ity of tablet 00:00: [place] 00 Medical Branch spironolact 2019-0 Yes Univer s one 25 mg 4-11 ity of tablet 00:00: [place] 00 Medical Branch spironolact 2019-0 Yes Univer s one 25 mg 4-11 ity of tablet 00:00: [place] 00 Medical Branch spironolact 2019-0 Yes Univer s one 25 mg 4-11 ity of tablet 00:00: [place] 00 Medical Branch spironolact 2019-0 Yes Univer s one 25 mg 4-11 ity of tablet 00:00: [place] [address] Medical Branch spironolact 2019-0 Yes Univer s one 25 mg 4-11 ity of tablet 00:00: [place] [address] Medical Branch spironolact 2019-0 Yes Univer s one 25 mg 4-11 ity of tablet 00:00: [place] [address] Medical Branch spironolact 2019-0 Yes Univer s one 25 mg 4-11 ity of tablet 00:00: [place] 00 Medical Branch spironolact 2019-0 Yes Univer s one 25 mg 4-11 ity of tablet 00:00: [place] [address] Medical Branch spironolact 2019-0 Yes Univer s one 25 mg 4-11 ity of tablet 00:00: [place] 00 Medical Branch spironolact 2019-0 Yes Univer s one 25 mg 4-11 ity of tablet 00:00: [place] 00 Medical Branch spironolact 2019-0 Yes Univer s one 25 mg 4-11 ity of tablet 00:00: [place] 00 Medical Branch spironolact 2019-0 Yes Univer s one 25 mg 4-11 ity of tablet 00:00: [place] 00 Medical Branch spironolact 2019-0 Yes Univer s one 25 mg 4-11 ity of tablet 00:00: [place] 00 Medical Branch spironolact 2019-0 Yes Univer s one 25 mg 4-11 ity of tablet 00:00: [place] [facility] spironolact 2019-0 Yes Univer s one 25 mg 4-11 ity of tablet 00:00: [place] [facility] spironolact 2019-0 Yes Univer s one 25 mg 4-11 ity of tablet 00:00: [place] [facility] spironolact 2019-0 Yes Univer s one 25 mg 4-11 ity of tablet 00:00: [place] [facility] spironolact 2019-0 Yes Univer s one 25 mg 4-11 ity of tablet 00:00: [place] [facility] spironolact 2019-0 Yes Univer s one 25 mg 4-11 ity of tablet 00:00: [place] [facility] spironolact 2019-0 Yes Univer s one 25 mg 4-11 ity of tablet 00:00: [place] [address] [facility] spironolact 2019-0 Yes Univer s one 25 mg 4-11 ity of tablet 00:00: [place] [address] [facility] spironolact 2019-0 Yes Univer s one 25 mg 4-11 ity of tablet 00:00: [place] [address] [facility] spironolact 2019-0 Yes Univer s one 25 mg 4-11 ity of tablet 00:00: [place] [address] [facility] spironolact 2019-0 Yes Univer s one 25 mg 4-11 ity of tablet 00:00: [place] [address] [facility] spironolact 2019-0 Yes Univer s one 25 mg 4-11 ity of tablet 00:00: [place] [address] [facility] spironolact 2019-0 Yes Univer s one 25 mg 4-11 ity of tablet 00:00: [place] [address] [facility] spironolact 2019-0 Yes Univer s one 25 mg 4-11 ity of tablet 00:00: [place] [address] [facility] spironolact 2019-0 Yes Univer s one 25 mg 4-11 ity of tablet 00:00: [place] [facility] spironolact 2019-0 Yes Univer s one 25 mg 4-11 ity of tablet 00:00: [place] [address] [facility] spironolact 2019-0 Yes Univer s one 25 mg 4-11 ity of tablet 00:00: [place] [address] [facility] spironolact 2019-0 Yes Univer s one 25 mg 4-11 ity of tablet 00:00: [place] [address] [facility] spironolact 2019-0 Yes Univer s one 25 mg 4-11 ity of tablet 00:00: [place] [address] [facility] spironolact 2019-0 Yes Univer s one 25 mg 4-11 ity of tablet 00:00: [place] [facility] spironolact 2019-0 Yes Univer s one 25 mg 4-11 ity of tablet 00:00: [place] [facility] spironolact 2019-0 Yes Univer s one 25 mg 4-11 ity of tablet 00:00: [place] [facility] spironolact 2019-0 Yes Univer s one 25 mg 4-11 ity of tablet 00:00: [place] [facility] spironolact 2019-0 Yes Univer s one 25 mg 4-11 ity of tablet 00:00: [place] [facility] spironolact 2019-0 Yes Univer s one 25 mg 4-11 ity of tablet 00:00: [place] [address] [facility] spironolact 2019-0 Yes Univer s one 25 mg 4-11 ity of tablet 00:00: [place] [address] [facility] spironolact 2019-0 Yes Univer s one 25 mg 4-11 ity of tablet 00:00: [place] [address] [facility] spironolact 2019-0 Yes Univer s one 25 mg 4-11 ity of tablet 00:00: [place] [address] [facility] spironolact 2019-0 Yes Univer s one 25 mg 4-11 ity of tablet 00:00: [place] [address] [facility] spironolact 2019-0 Yes Univer s one 25 mg 4-11 ity of tablet 00:00: [place] [address] [facility] spironolact 2019-0 Yes Univer s one 25 mg 4-11 ity of tablet 00:00: [place] [address] [facility] spironolact 2019-0 Yes Univer s one 25 mg 4-11 ity of tablet 00:00: [place] [facility] spironolact 2019-0 Yes Univer s one 25 mg 4-11 ity of tablet 00:00: [place] [facility] spironolact 2019-0 Yes Univer s one 25 mg 4-11 ity of tablet 00:00: [place] [address] [facility] spironolact 2019-0 Yes Univer s one 25 mg 4-11 ity of tablet 00:00: [place] [facility] spironolact 2019-0 Yes Univer s one 25 mg 4-11 ity of tablet 00:00: [place] [address] [facility] spironolact 2019-0 Yes Univer s one 25 mg 4-11 ity of tablet 00:00: [place] [facility] spironolact 2019-0 Yes Univer s one 25 mg 4-11 ity of tablet 00:00: [place] [facility] spironolact 2019-0 Yes Univer s one 25 mg 4-11 ity of tablet 00:00: [place] [facility] spironolact 2019-0 Yes Univer s one 25 mg 4-11 ity of tablet 00:00: [place] [address] [facility] spironolact 2019-0 Yes Univer s one 25 mg 4-11 ity of tablet 00:00: [place] [facility] spironolact 2019-0 Yes Univer s one 25 mg 4-11 ity of tablet 00:00: [place] [address] [facility] spironolact 2019-0 Yes Univer s one 25 mg 4-11 ity of tablet 00:00: [place] [address] [facility] spironolact 2019-0 Yes Univer s one 25 mg 4-11 ity of tablet 00:00: [place] [address] [facility] spironolact 2019-0 Yes Univer s one 25 mg 4-11 ity of tablet 00:00: [place] [facility] spironolact 2019-0 Yes Univer s one 25 mg 4-11 ity of tablet 00:00: [place] [address] [facility] spironolact 2019-0 Yes Univer s one 25 mg 4-11 ity of tablet 00:00: [place] [address] [facility] spironolact 2019-0 Yes Univer s one 25 mg 4-11 ity of tablet 00:00: [place] [address] [facility] spironolact 2019-0 Yes Univer s one 25 mg 4-11 ity of tablet 00:00: [place] [facility] spironolact 2019-0 Yes Univer s one 25 mg 4-11 ity of tablet 00:00: [place] [facility] spironolact 2019-0 Yes Univer s one 25 mg 4-11 ity of tablet 00:00: [place] [address] [facility] spironolact 2019-0 Yes Univer s one 25 mg 4-11 ity of tablet 00:00: [place] [address] [facility] spironolact 2019-0 Yes Univer s one 25 mg 4-11 ity of tablet 00:00: [place] [address] [facility] tamsulosin 2019-0 Yes Univers 0.4 mg 24 4-09 ity of hr capsule 00:00: [place] [facility] tamsulosin 2019-0 Yes Univers 0.4 mg 24 4-09 ity of hr capsule 00:00: [place] [facility] tamsulosin 2019-0 Yes Univers 0.4 mg 24 4-09 ity of hr capsule 00:00: [place] [facility] tamsulosin 2019-0 Yes Univers 0.4 mg 24 4-09 ity of hr capsule 00:00: [place] [facility] tamsulosin 2019-0 Yes Univers 0.4 mg 24 4-09 ity of hr capsule 00:00: [place] [facility] tamsulosin 2019-0 Yes Univers 0.4 mg 24 4-09 ity of hr capsule 00:00: [place] [facility] tamsulosin 2019-0 Yes Univers 0.4 mg 24 4-09 ity of hr capsule 00:00: [place] [facility] tamsulosin 2019-0 Yes Univers 0.4 mg 24 4-09 ity of hr capsule 00:00: [place] [facility] tamsulosin 2019-0 Yes Univers 0.4 mg 24 4-09 ity of hr capsule 00:00: [place] [facility] tamsulosin 2019-0 Yes Univers 0.4 mg 24 4-09 ity of hr capsule 00:00: [place] [facility] tamsulosin 2019-0 Yes Univers 0.4 mg 24 4-09 ity of hr capsule 00:00: [place] [facility] tamsulosin 2019-0 Yes Univers 0.4 mg 24 4-09 ity of hr capsule 00:00: [place] [facility] tamsulosin 2019-0 Yes Univers 0.4 mg 24 4-09 ity of hr capsule 00:00: [place] [facility] tamsulosin 2019-0 Yes Univers 0.4 mg 24 4-09 ity of hr capsule 00:00: [place] [facility] tamsulosin 2019-0 Yes Univers 0.4 mg 24 4-09 ity of hr capsule 00:00: [place] [facility] tamsulosin 2019-0 Yes Univers 0.4 mg 24 4-09 ity of hr capsule 00:00: [place] [facility] tamsulosin 2019-0 Yes Univers 0.4 mg 24 4-09 ity of hr capsule 00:00: [place] [facility] tamsulosin 2019-0 Yes Univers 0.4 mg 24 4-09 ity of hr capsule 00:00: [place] [facility] tamsulosin 2019-0 Yes Univers 0.4 mg 24 4-09 ity of hr capsule 00:00: [place] [facility] tamsulosin 2019-0 Yes Univers 0.4 mg 24 4-09 ity of hr capsule 00:00: [place] [facility] tamsulosin 2019-0 Yes Univers 0.4 mg 24 4-09 ity of hr capsule 00:00: [place] [facility] tamsulosin 2019-0 Yes Univers 0.4 mg 24 4-09 ity of hr capsule 00:00: [place] [facility] tamsulosin 2019-0 Yes Univers 0.4 mg 24 4-09 ity of hr capsule 00:00: [place] [facility] tamsulosin 2019-0 Yes Univers 0.4 mg 24 4-09 ity of hr capsule 00:00: [place] [facility] tamsulosin 2019-0 Yes Univers 0.4 mg 24 4-09 ity of hr capsule 00:00: [place] [facility] tamsulosin 2019-0 Yes Univers 0.4 mg 24 4-09 ity of hr capsule 00:00: [place] [facility] tamsulosin 2019-0 Yes Univers 0.4 mg 24 4-09 ity of hr capsule 00:00: [place] [facility] tamsulosin 2019-0 Yes Univers 0.4 mg 24 4-09 ity of hr capsule 00:00: [place] [facility] tamsulosin 2019-0 Yes Univers 0.4 mg 24 4-09 ity of hr capsule 00:00: [place] [facility] tamsulosin 2019-0 Yes Univers 0.4 mg 24 4-09 ity of hr capsule 00:00: [place] [facility] tamsulosin 2019-0 Yes Univers 0.4 mg 24 4-09 ity of hr capsule 00:00: [place] [facility] tamsulosin 2019-0 Yes Univers 0.4 mg 24 4-09 ity of hr capsule 00:00: [place] [facility] tamsulosin 2019-0 Yes Univers 0.4 mg 24 4-09 ity of hr capsule 00:00: [place] [facility] tamsulosin 2019-0 Yes Univers 0.4 mg 24 4-09 ity of hr capsule 00:00: [place] [facility] tamsulosin 2019-0 Yes Univers 0.4 mg 24 4-09 ity of hr capsule 00:00: [place] [facility] tamsulosin 2019-0 Yes Univers 0.4 mg 24 4-09 ity of hr capsule 00:00: [place] [facility] tamsulosin 2019-0 Yes Univers 0.4 mg 24 4-09 ity of hr capsule 00:00: [place] [facility] tamsulosin 2019-0 Yes Univers 0.4 mg 24 4-09 ity of hr capsule 00:00: [place] [facility] tamsulosin 2019-0 Yes Univers 0.4 mg 24 4-09 ity of hr capsule 00:00: [place] [facility] tamsulosin 2019-0 Yes Univers 0.4 mg 24 4-09 ity of hr capsule 00:00: [place] [facility] tamsulosin 2019-0 Yes Univers 0.4 mg 24 4-09 ity of hr capsule 00:00: [place] [facility] tamsulosin 2019-0 Yes Univers 0.4 mg 24 4-09 ity of hr capsule 00:00: [place] [facility] tamsulosin 2019-0 Yes Univers 0.4 mg 24 4-09 ity of hr capsule 00:00: [place] [facility] tamsulosin 2019-0 Yes Univers 0.4 mg 24 4-09 ity of hr capsule 00:00: [place] [facility] tamsulosin 2019-0 Yes Univers 0.4 mg 24 4-09 ity of hr capsule 00:00: [place] [facility] tamsulosin 2019-0 Yes Univers 0.4 mg 24 4-09 ity of hr capsule 00:00: [place] [facility] tamsulosin 2019-0 Yes Univers 0.4 mg 24 4-09 ity of hr capsule 00:00: [place] [facility] tamsulosin 2019-0 Yes Univers 0.4 mg 24 4-09 ity of hr capsule 00:00: [place] [facility] tamsulosin 2019-0 Yes Univers 0.4 mg 24 4-09 ity of hr capsule 00:00: [place] [facility] tamsulosin 2019-0 Yes Univers 0.4 mg 24 4-09 ity of hr capsule 00:00: [place] [facility] tamsulosin 2019-0 Yes Univers 0.4 mg 24 4-09 ity of hr capsule 00:00: [place] [facility] tamsulosin 2019-0 Yes Univers 0.4 mg 24 4-09 ity of hr capsule 00:00: [place] [facility] tamsulosin 2019-0 Yes Univers 0.4 mg 24 4-09 ity of hr capsule 00:00: [place] [facility] tamsulosin 2019-0 Yes Univers 0.4 mg 24 4-09 ity of hr capsule 00:00: [place] [facility] tamsulosin 2019-0 Yes Univers 0.4 mg 24 4-09 ity of hr capsule 00:00: [place] [facility] tamsulosin 2019-0 Yes Univers 0.4 mg 24 4-09 ity of hr capsule 00:00: [place] [facility] tamsulosin 2019-0 Yes Univers 0.4 mg 24 4-09 ity of hr capsule 00:00: [place] [facility] tamsulosin 2019-0 Yes Univers 0.4 mg 24 4-09 ity of hr capsule 00:00: [place] [facility] tamsulosin 2019-0 Yes Univers 0.4 mg 24 4-09 ity of hr capsule 00:00: [place] [facility] tamsulosin 2019-0 Yes Univers 0.4 mg 24 4-09 ity of hr capsule 00:00: [place] [facility] tamsulosin 2019-0 Yes Univers 0.4 mg 24 4-09 ity of hr capsule 00:00: [place] [facility] tamsulosin 2019-0 Yes Univers 0.4 mg 24 4-09 ity of hr capsule 00:00: [place] [facility] tamsulosin 2019-0 Yes Univers 0.4 mg 24 4-09 ity of hr capsule 00:00: [place] [facility] tamsulosin 2019-0 Yes Univers 0.4 mg 24 4-09 ity of hr capsule 00:00: [place] [facility] tamsulosin 2019-0 Yes Univers 0.4 mg 24 4-09 ity of hr capsule 00:00: [place] [facility] tamsulosin 2019-0 Yes Univers 0.4 mg 24 4-09 ity of hr capsule 00:00: [place] [facility] tamsulosin 2019-0 Yes Univers 0.4 mg 24 4-09 ity of hr capsule 00:00: [place] [facility] tamsulosin 2019-0 Yes Univers 0.4 mg 24 4-09 ity of hr capsule 00:00: [place] [address] [facility] tamsulosin 2019-0 Yes Univers 0.4 mg 24 4-09 ity of hr capsule 00:00: [place] [address] [facility] tamsulosin 2019-0 Yes Univers 0.4 mg 24 4-09 ity of hr capsule 00:00: [place] [address] [facility] tamsulosin 2019-0 Yes Univers 0.4 mg 24 4-09 ity of hr capsule 00:00: [place] [facility] tamsulosin 2019-0 Yes Univers 0.4 mg 24 4-09 ity of hr capsule 00:00: [place] [facility] tamsulosin 2019-0 Yes Univers 0.4 mg 24 4-09 ity of hr capsule 00:00: [place] [facility] tamsulosin 2019-0 Yes Univers 0.4 mg 24 4-09 ity of hr capsule 00:00: [place] [facility] tamsulosin 2019-0 Yes Univers 0.4 mg 24 4-09 ity of hr capsule 00:00: [place] [facility] tamsulosin 2019-0 Yes Univers 0.4 mg 24 4-09 ity of hr capsule 00:00: [place] [facility] tamsulosin 2019-0 Yes Univers 0.4 mg 24 4-09 ity of hr capsule 00:00: [place] [facility] tamsulosin 2019-0 Yes Univers 0.4 mg 24 4-09 ity of hr capsule 00:00: [place] [facility] tamsulosin 2019-0 Yes Univers 0.4 mg 24 4-09 ity of hr capsule 00:00: [place] [facility] tamsulosin 2019-0 Yes Univers 0.4 mg 24 4-09 ity of hr capsule 00:00: [place] [facility] TOPIRAMATE 2019-0 Yes [id number] TAKE 1 Univers 25 mg 3-01 TABLET BY ity of tablet 00:00: MOUTH TWO [place] [facility] TOPIRAMATE 2019-0 Yes [id number] TAKE 1 [facility] 25 mg 3-01 TABLET BY ity of tablet 00:00: MOUTH TWO [place] [facility] TOPIRAMATE 2019-0 Yes [id number] TAKE 1 [facility] 25 mg 3-01 TABLET BY ity of tablet 00:00: MOUTH TWO [place] [facility] TOPIRAMATE 2019-0 Yes [id number] TAKE 1 [facility] 25 mg 3-01 TABLET BY ity of tablet 00:00: MOUTH TWO [place] [facility] TOPIRAMATE 2019-0 Yes [id number] TAKE 1 [facility] 25 mg 3-01 TABLET BY ity of tablet 00:00: MOUTH TWO [place] [facility] TOPIRAMATE 2019-0 Yes [id number] TAKE 1 [facility] 25 mg 3-01 TABLET BY ity of tablet 00:00: MOUTH TWO [place] 00 TIMES Medical DAILY Branch TOPIRAMATE Yes [id number] TAKE 1 [facility] 25 mg 3-01 TABLET BY ity of tablet 00:00: MOUTH TWO [place] 00 TIMES Medical DAILY Branch TOPIRAMATE Yes [id number] TAKE 1 [facility] 25 mg 3-01 TABLET BY ity of tablet 00:00: MOUTH TWO [place] 00 TIMES Medical DAILY Branch TOPIRAMATE 2019- No [id number] TAKE 1 Univers 25 mg 3-01 08-28 TABLET BY ity of tablet 00:00: 00:00 MOUTH TWO [place] 00 :00 TIMES Medical DAILY Branch testosteron [...] Immunizations Ordered Filled Immunization Date Status Comments [facility] Immunization Name Name SARS-COV-2 COVID-19 2021-03-31 [...] Unive rsity of MODERNA VACCINE 00:00:00 [facility] ical Branch SARS-COV-2 COVID-19 2020-05-28 Completed Unive rsity of MODERNA VACCINE 00:00:00 [place] [facility] SARS-COV-2 COVID-19 2020-05-28 Completed Unive rsity of MODERNA VACCINE 00:00:00 [place] [facility] SARS-COV-2 COVID-19 2020-05-28 Completed Unive rsity of MODERNA VACCINE 00:00:00 [place] [facility] SARS-COV-2 COVID-19 2020-05-28 Completed Unive rsity of MODERNA VACCINE 00:00:00 [facility] ical Branch SARS-COV-2 COVID-19 2020-05-28 Completed Unive rsity of MODERNA VACCINE 00:00:00 [place] [facility] SARS-COV-2 COVID-19 2020-05-28 Completed Unive rsity of MODERNA VACCINE 00:00:00 [facility] ical Branch SARS-COV-2 COVID-19 2020-05-28 Completed Unive rsity of MODERNA VACCINE 00:00:[address] [facility] SARS-COV-2 COVID-19 2020-05-28 Completed Unive rsity of MODERNA VACCINE 00:00:[address] [facility] SARS-COV-2 COVID-19 2020-05-28 Completed Unive rsity of MODERNA VACCINE 00:00:00 [facility] Vital Signs Vital Name Observation Time Observation Value Comments Source Systolic blood 2020-07-19 21:14:00 98 mm[Hg] Univer sity of pressure [facility] Diastolic blood 2020-07-19 21:14:00 65 mm[Hg] Unive rsity of pressure [facility] Heart rate 2020-07-19 21:14:00 75 /min [facility] Oxygen saturation in 2020-07-19 21:14:00 96 /min University of Arterial blood by [facility] Pulse oximetry Branch Systolic blood 2020-01-19 20:45:00 119 mm[Hg] Univer sity of pressure [facility] Diastolic blood 2020-01-19 20:45:00 84 mm[Hg] Unive rsity of pressure [facility] Heart rate 2020-01-19 20:45:00 82 /min [facility] Body temperature 2020-01-19 20:45:00 [facility]22 [facility] 2020-01-19 20:45:00 182.9 cm [facility] Body weight 2020-01-19 20:45:00 88.905 kg [facility] BMI 2020-01-19 20:45:00 26.58 kg/m2 [facility] Oxygen saturation in 2020-01-19 20:45:00 96 /min [facility] of Arterial blood by [facility] Pulse oximetry Branch Systolic blood 2018-12-26 22:04:00 139 mm[Hg] Univer sity of pressure [facility] Diastolic blood 2018-12-26 22:04:00 83 mm[Hg] Unive rsity of pressure [place] [facility] Heart rate 2018-12-26 22:04:00 62 /min Universi ty of [place] [facility] Body temperature 2018-12-26 22:04:00 36.39 [facility] ersity of [place] [facility] Respiratory rate 2018-12-26 22:04:00 17 /min Univ ersity of [place] [facility] Body weight 2018-12-26 22:04:00 87.998 kg [facility]i ty [facility] [place] [facility] BMI 2018-12-26 22:04:00 26.31 kg/m2 Universi ty of [facility] Systolic blood 2020 15:37:00 115 mm[Hg] Univer sity of pressure [place] [facility] Diastolic blood 2020 15:37:00 78 mm[Hg] Unive rsity of pressure [place] [facility] Heart rate 2020 15:37:00 105 /min [facility]i ty of [place] [facility] Respiratory rate 2020 15:37:00 14 /min Univ ersity of [facility] Body height 2020 15:37:00 182.9 cm Universi ty of [place] [facility] Body weight 2020 15:37:00 89.54 kg [facility]i [facility] of [place] [facility] BMI 2020 15:37:00 26.77 kg/m2 [facility] [place] [facility] Systolic blood 2020-07-19 21:14:00 98 mm[Hg] Univer sity of pressure [place] [facility] Diastolic blood 2020-07-19 21:14:00 65 mm[Hg] Unive rsity of pressure [place] [facility] Heart rate 2020-07-19 21:14:00 75 /min [facility]i ty of [place] [facility] Oxygen saturation in 2020-07-19 21:14:00 96 /min University Arterial blood by [facility] Pulse oximetry Branch Systolic blood 2020-02-02 15:06:00 114 mm[Hg] Univer sity of pressure [place] [facility] Diastolic blood 2020-02-02 15:06:00 78 mm[Hg] Unive rsity of pressure [place] [facility] Heart rate 2020-02-02 15:06:00 103 /min Universi ty of [place] [facility] Respiratory rate 2020-02-02 15:06:00 19 /min Univ ersity of [place] [facility] Body weight 2020-02-02 15:06:00 88.406 kg Universi ty of [facility] BMI 2020-02-02 15:06:00 26.43 kg/m2 Universi ty of [facility] Systolic blood 2020-01-19 20:45:00 119 mm[Hg] Univer sity of pressure [facility] Diastolic blood 2020-01-19 20:45:00 84 mm[Hg] Unive rsity of pressure [facility] Heart rate 2020-01-19 20:45:00 82 /min Universi ty of [facility] Body temperature 2020-01-19 20:45:00 37.22 [place] [facility] ersity of [facility] Body height 2020-01-19 20:45:00 182.9 cm Universi ty of [facility] Body weight 2020-01-19 20:45:00 88.905 kg Universi ty of [facility] BMI 2020-01-19 20:45:00 26.58 kg/m2 Universi ty of [facility] Oxygen saturation in 2020-01-19 20:45:00 96 /min University of Arterial blood by [facility] Pulse oximetry Branch Systolic blood 2019-12-29 15:03:00 126 mm[Hg] Univer sity of pressure [facility] Diastolic blood 2019-12-29 15:03:00 79 mm[Hg] Unive rsity of pressure [facility] Heart rate 2019-12-29 15:03:00 84 /min Universi ty of [facility] Respiratory rate 2019-12-29 15:03:00 17 /min Univ ersity of [facility] Body weight 2019-12-29 15:03:00 87.635 kg Universi ty of [facility] BMI 2019-12-29 15:03:00 26.20 kg/m2 Universi ty of [facility] Systolic blood 2019-11-24 15:01:00 131 mm[Hg] Univer sity of pressure [facility] Diastolic blood 2019-11-24 15:01:00 83 mm[Hg] Unive rsity of pressure [facility] Heart rate 2019-11-24 15:01:00 61 /min Universi ty of [facility] Respiratory rate 2019-11-24 15:01:00 18 /min Univ ersity of [facility] Body weight 2019-11-24 15:01:00 92.08 kg Universi ty of [facility] BMI 2019-11-24 15:01:00 27.53 kg/m2 Universi ty [...] 2019-06-08 16:12:00 26.72 kg/m2 [facility] [place] [facility] Systolic blood 2019-04-07 16:01:00 116 mm[Hg] Univer sity of pressure [place] [facility] Diastolic blood 2019-04-07 16:01:00 74 mm[Hg] Unive rsity of pressure [place] [facility] Heart rate 2019-04-07 16:01:00 67 /min Universi ty of [place] [facility] Respiratory rate 2019-04-07 16:01:00 18 /min Univ ersity of [place] [facility] Body height 2019-04-07 16:01:00 182.9 [...] 2019-02-10 15:16:00 20 /min Univ ersity of [place] [facility] Body height 2019-02-10 15:16:00 182.9 cm Universi ty of [place] [facility] Body weight 2019-02-10 15:16:00 90.719 kg [facility]i ty [facility] [place] [facility] BMI 2019-02-10 15:16:00 27.12 kg/m2 [facility] [place] [facility] Systolic blood 2019-01-06 15:07:00 114 [...] 2018-12-26 22:04:00 36.39 [facility] ersity of [place] [facility] Systolic blood 2018-12-09 15:09:00 118 [...] 2018-12-09 15:09:00 26.31 kg/m2 [facility] [place] [facility] Body height 2018-09-22 18:03:00 182.9 cm [facility] [place] [facility] Body temperature 2018 22:30:00 36.22 [facility] Procedures Procedure Date / Time Performing Clinician Source Performed SARS-COV-2 COVID-19 2021-03-31 22:17:29 Doctor Unasskwame, [facility] VACCINE BOOSTER,0.25ML,IM [facility] (MODERNA) VALPROIC ACID, TOTAL 2020-07-19 21:54:00 [facility]OV[facility] COVID-19 2020-06-25 20:02:30 Doctor Unasskwame, [facility] VACCINE,0.5ML,IM (MODERNA) [facility] SARS-COV-2 COVID-19 2020-05-28 20:50:30 [facility] ([facility] Medic al Branch VALPROIC ACID, TOTAL 2020-02-07 15:21:00 Dyer Hugo [facility] CBC WITH DIFF 2020-02-07 15:21:00 Roy [facility] GLYCOSYLATED HEMOGLOBIN 2020-02-07 15:21:00 Hugo Dyer [facility] (A1C) [facility] THYROID STIMULATING 2020-02-07 15:21:00 Gomez Hugo [facility] HORMONE [facility] COMP. METABOLIC PANEL 2020-02-07 15:21:00 Gomez [facility] ([id number]) [facility] LIPID PANEL ([id number])(TOTAL 2020-02-07 [facility] TRIGLYCERIDES, HDL) CBC WITH DIFF 2020-02-07 15:21:00 Gomez [facility] COMP. METABOLIC PANEL 2020-02-07 15:21:00 Gomez [facility] ([id number]) [facility] GLYCOSYLATED HEMOGLOBIN 2020-02-07 15:21:00 Hugo Dyer [facility] (A1C) [facility] LIPID PANEL ([id number])(TOTAL 2020-02-07 15:21:00 [facility] CHOLESTEROL, [facility] TRIGLYCERIDES, HDL) VALPROIC ACID, TOTAL 2020-02-07 15:21:00 Dyer, [facility] THYROID STIMULATING 2020-02-07 15:21:00 Hugo Dyer [facility] HORMONE Medical Branch NOTICE OF PRIVACY 2020-02-07 14:56:54 Doctor Roger, [facility] PRACTICES [facility] CONSENT/REFUSAL FOR 2020-02-07 14:56:36 Doctor Roger [facility] DIAGNOSIS AND TREATMENT [facility] CONSENT/REFUSAL FOR 2020-02-07 14:56:36 Doctor Roger [facility] DIAGNOSIS AND TREATMENT [facility] ASSIGNMENT OF BENEFITS 2020-02-07 14:56:19 [facility] ASSIGNMENT OF BENEFITS 2020-02-07 14:56:19 Doctor Roger, [facility] LIPID PANEL ([id number])(TOTAL 2019-02-20 15:50:00 Thong [facility] TRIGLYCERIDES, HDL) GLYCOSYLATED HEMOGLOBIN 2019-02-20 15:50:00 Thong [facility] (A1C) Pilar Mancini [facility] NOTICE OF BILLING 2019-02-10 15:07:07 Doctor Roger, [facility] PRACTICES FOR MEDICARE [facility] PATIENTS [facility] PATIENT FINANCIAL 2019-02-10 15:06:44 Doctor Roger, [facility] POLICY [facility] NO SHOW OR MISSED 2019-02-10 15:06:16 Doctor Duran, [facility] APPOINTMENT POLICY [facility] ACKNOWLEDGEMENT EXTERNAL PROVIDER RECORDS 2018-11-21 05:01:00 Doctor Duran, [facility] Encounters Start End Encounter Admission Attending Care Care Encounter Source Date/Time Date/Time Type Type Clinicians Facility Department ID 2021-06-12 Outpatient 3 TAYE WHITLOCK OZZY [id number] ENCPL 13:09:35 SIVAKUMAR 1025 2021-06-12 Outpatient 3 [id number] ENCPL REF [id number] ENCPL 13:07:10 1019 2021-06-12 Outpatient 3 TAYE Draper OZZY [id number] ENCPL 12:40:27 Danielle 0810 2021-06-12 Outpatient 3 [id number] ENCPL REF [id number] ENCPL 12:40:00 0809 2021-06-12 Outpatient 3 [id number] ENCPL REF ENCPL 12:39:14 0806 2021-06-12 Outpatient 3 [id number] ENCPL OT ENCPL 11:32:46 0212021-06-12 Outpatient 3 [id number] ENCPL REF ENCPL 11:32:25 0212021-06-11 Outpatient Donita, STLMLC STLMLC [id number] Common 13:11:40 Mike [id number] [facility] 2021-10-06 2021-10-06 ambulatory STLMLC STLMLC [id number] Common 00:00:00 00:00:00 [facility] 2021-07-24 2021-07-24 ambulatory STLMLC STLMLC [id number] Common 00:00:00 00:00:00 [facility] 2021-07-07 2021-07-07 ambulatory STLMLC STLMLC [id number] Common 00:00:00 00:00:00 [facility] 2021-06-18 2021-06-18 ambulatory STLMLC STLMLC [id number] Common 00:00:00 00:00:00 [facility] 2021-05-21 2021-05-21 ambulatory STLMLC STLMLC [id number] Common 00:00:00 00:00:00 [facility] 2021-04-23 2021-04-23 ambulatory STLMLC STLMLC [id number] Common 00:00:00 00:00:00 [facility] 2021-03-31 2021-03-31 Outpatient Mychal CAMPO [facility] [id number] Univers 16:00:00 15:47:40 EMILIANO nelson [facility] 2021-03-31 2021-03-31 Imm/Inj Nurse, Adc Pob Immunization [facility] 1.2.840.114 [id number] Univers 15:47:30 15:47:40 [facility]13 [facility]686 Caden MYLES [id number] Ia dical [address] [address] [place] [facility] 2021-01-17 2021-01-17 Outpatient R MAMADOU GIL [facility] [id number] Univers 15:40:00 15:40:00 MAMADOU GIL [id number] ity of [facility] 2021-01-09 2021-01-09 Outpatient STLMLC STLMLC [id number] Common 00:00:00 00:00:00 [facility] 2020-11-08 2020-11-08 Outpatient R [facility] [id number] Univers 10:45:00 10:45:00 [id number] ity of [facility] 2020-11-08 2020-11-08 Outpatient MAMI NOBLE [facility] [id number] Univers 10:45:00 10:45:00 ity of [facility] 2020-10-21 2020-10-21 Outpatient STLMLC STLMLC [id number] Common 00:00:00 00:00:00 [facility] 2020 2020 Outpatient R [facility] [id number] -[id number] Univers 10:45:00 10:45:00 [id number] ity of [facility] 2020 2020 Outpatient R MAMI GODOY [facility] [id number] Univers 10:45:00 10:45:00 ity of [facility] 2020 2020 Travel 1.2.840.1 1.2.434.370 [id number] Univers 00:00:00 00:00:00 06480.1.1 350.1.13.10 ity of 3.104.2.[place] 084.8 Med[place] l .[facility] [place] 2020-09-12 2020-09-12 Outpatient R [facility] [id number] Univers 10:45:00 10:45:00 [id number] ity of [facility] 2020-09-12 2020-09-12 Outpatient R MAMI GODOY [facility] [id number] Univers 10:45:00 10:45:00 ity of [facility] 2020-09-06 2020-09-06 Outpatient R [facility] [id number] Univers 10:00:00 10:00:00 [id number] ity of [facility] 2020-09-05 2020-09-05 Outpatient R [facility] [id number] -[id number] Univers 10:00:00 10:00:00 [id number] ity of [facility] 2020-08-30 2020-08-30 Outpatient R [facility] [id number] Univers 10:00:00 10:00:00 [id number] ity [facility] 2020-07-26 2020-07-26 Telephone Louise, 1.2.840.3 [id number] Univers 00:00:00 00:00:00 Mamadou Gene 50989.1.1 ity of 3.104.2.7 [place] .3.188710 Med[facility] .[facility] [place] 2020-07-19 2020-07-19 Office Louise Mayur.2.840.2 [id number] Univers 14:59:36 16:04:15 Visit Mamadou Gene 88962.1.1 ity of 3.104.2.7 [place] .3.887672 Med[facility] .[facility] [place] 2020-07-19 2020-07-19 [employer] Consultant Mamadou Gil Gene 1.2.840.5 [id number] Univers 15:47:23 16:02:23 Visit 2, Alana Lab 61727.1.1 i ty of 3.104.2.7 [place] .3.733364 Medica l .[facility] [place] 2020-07-19 2020-07-19 Outpatient MAMADOU RIZVI [facility] [id number] Univers 15:00:00 15:00:00 MAMADOU GIL [id number] ity [facility] 2020-07-19 2020-07-19 Outpatient MAMADOU RIZVI [facility] [id number] Univers 15:00:00 15:00:00 MAMADOU GIL itarsenio [facility] 2020-07-19 2020-07-19 Travel 1.2.840.1 1.2.947.623 [id number] Univers 00:00:00 00:00:00 10454.1.1 350.1.13.10 ity of 3.104.2.[place].2727[place] 084.8 Med[place] .[facility] [place] 2020-07-18 2020-07-18 Outpatient R [facility] [id number] Univers 10:00:00 10:00:00 [id number] ity [facility] 2020-07-18 2020-07-18 Outpatient R MAMI GODOY [facility] [id number] Univers 10:00:00 10:00:00 ity [facility] 2020-07-12 2020-07-12 Outpatient R [facility] [id number] Univers 10:00:00 10:00:00 [id number] [facility] 2020-06-[facility] 2020-06-25 Outpatient Mychal ALEGRIA [facility] [id number] Univers 14:10:00 14:10:00 IVÁN [id number] ity [facility] 2020-06-25 2020-06-25 Outpatient Mychal ALEGRIA [facility] [id number] Univers 14:10:00 14:10:00 [facility] 2020-06-[facility] 2020-06-25 Imm/Inj Iván Alegria 1.2.840.1 [id number] Univers 14:00:29 14:01:18 Visit Nurse, Adc Pob Immunization 07853.1.1 ity of 3.104.2.7 [place] .3.625715 [facility] .[facility] [place] 2020-06-07 2020-06-07 Outpatient R [facility] [id number] Univers 10:00:00 10:00:00 [id number] ity [facility] 2020-06-07 2020-06-07 Outpatient R MAMI GODOY [facility] [id number] Univers 10:00:00 10:00:00 ity [facility] 2020-05-28 2020-05-28 Outpatient Mychal ALEGRIA [facility] [id number] Univers 15:00:00 15:00:00 IVÁN ity [facility] 2020-05-28 2020-05-28 Imm/Inj Iván Alegria 1.2.840.1 [id number] Univers 14:46:27 14:49:49 Visit Nurse, Adc Pob Immunization 77340.1.1 ity of 3.104.2.7 [place] .3.386153 Med[facility] l .[facility] [place] 2020-05-28 2020-05-28 Outpatient R KORY, [facility] [id number] Univers 09:10:00 09:10:00 IVÁN [id number] ity [facility] 2020-05-11 2020-05-11 Outpatient R [facility] [id number] -[id number] Univers 17:40:00 17:40:00 [id number] ity [facility] 2020-05-11 2020-05-11 Outpatient R ALISIA [facility] [id number] Univers 17:40:00 17:40:00 ATTENDING ity [facility] 2020-05-11 2020-05-11 Telemedici Shilpi Pop 1.2.840.2 [id number] Univers 15:55:08 16:15:08 ne Visit Unknown, Attending 54749.1.1 ity of Care, Provider 25 - Adult & Pedi Urgent 3.104.2.7 [place] .3.952926 Med[facility] .[facility] [place] 2020-04-26 2020-04-26 Outpatient R [facility] [id number] -[id number] Univers 10:00:00 10:00:00 [id number] ity [facility] 2020-04-26 2020-04-26 Outpatient R MAMI GODOY [facility] [id number] Univers 10:00:00 10:00:00 ity [facility] 2020-03-15 2020-03-15 Outpatient R [facility] [id number] Univers 10:00:00 10:00:00 ity [facility] 2020-03-15 2020-03-15 Outpatient R MAMI GODOY [facility] [id number] Univers 10:00:00 10:00:00 ity [facility] 2020-02-16 2020-02-16 Outpatient R [facility] [id number] Univers 14:15:00 14:15:00 ity of [facility] 2020-02-16 2020-02-16 Outpatient R KAMILLA, [facility] [id number] Univers 14:15:00 14:15:00 RADHA ity of [facility] 2020-02-09 2020-02-09 Outpatient R [facility] [id number] Univers 10:00:00 10:00:00 [id number] ity of [facility] 2020-02-08 2020-02-08 Outpatient R [facility] [id number] Univers 10:00:00 10:00:00 [id number] ity of [facility] 2020-02-07 2020-02-07 Outpatient R [facility] [id number] Univers 10:30:00 10:30:00 [id number] ity of [facility] 2020-02-07 2020-02-07 Outpatient R JYOTI [facility] [id number] Univers 10:30:00 10:30:00 ADRIAN [facility] 2020-02-07 2020-02-07 [employer] Adrian Araujo 1.2.840.5 [id number] Univers 09:57:45 10:12:45 Visit Pob, Adc Lab Main 07257.1.1 ity of 3.104.2.7 [place] .3.986380 Med[facility] l .[facility] [place] 2020-02-07 2020-02-07 Orders Doctor 1.2.840.4 [id number] Univers 00:00:00 00:00:00 Only Unassigned, 75895.1.1 ity of [place] 3.104.2.7 [place] .3.978709 [facility] .[facility] [place] 2020-02-07 2020-02-07 Travel 1.2.840.1 1.2.889.182 [id number] Univers 00:00:00 00:00:00 12340.1.1 350.1.13.10 ity of 3.104.2.[place].698 [place]3.5326[place] 084.8 [facility] [facility] .[facility] [place] 2020-02-04 2020-02-04 Nurse Renetta, 1.2.840.1 [id number] Univers 00:00:00 00:00:00 Triage Ariana T 64543.1.1 ity of 3.104.2.7 [place] .3.102560 [facility] .[facility] [place] 2020-02-04 2020-02-04 Telephone Louise, 1.2.840.1 [id number] Univers 00:00:00 00:00:00 Mamadou Gene 13899.1.1 ity of 3.104.2.7 [place] .3.321920 Med[facility] .[facility] [place] 2020-02-02 2020-02-02 Outpatient R [facility] [id number] Univers 10:00:00 10:00:00 [id number] ity of [facility] 2020-02-02 2020-02-02 Outpatient R JESSICA GODOYK [facility] [id number] Univers 10:00:00 10:00:00 ity of [facility] 2020-02-02 2020-02-02 Travel 1.2.840.1 1.2.177.878 [id number] Univers 00:00:00 00:00:00 02658.1.1 350.1.13.10 ity of 3.104.2.[place] .3.738678 084.8 Med[facility] l .[facility] [place] 2020-02-01 2020-02-01 Travel 1.2.840.1 1.2.398.081 [id number] Univers 00:00:00 00:00:00 56070.1.1 350.1.13.10 ity of 3.104.2.[place] .3.372281 084.8 Med[facility] l .[facility] [place] 2020-01-19 2020-01-19 Office Louise, 1.2.840.7 [id number] Univers 14:42:27 16:01:19 Visit Mamadou Johns 87045.1.1 ity of 3.104.2.7 [place] .3.696892 Medica l .[facility] [place] 2020-01-19 2020-01-19 Outpatient MAMADOU GIL [facility] [id number] Univers 15:00:00 15:00:00 MAMADOU GIL [id number] ity of [facility] 2020-01-19 2020-01-19 Outpatient R MAMADOU GIL [facility] [id number] Univers 15:00:00 15:00:00 MAMADOU GIL ity of [facility] 2020-01-19 2020-01-19 Travel 1.2.840.1 1.2.419.512 [id number] Univers 00:00:00 00:00:00 22597.1.1 350.1.13.10 ity of 3.104.2.[place] .3.407414 084.8 Med[facility] l .[facility] [place] 2020-01-08 2020-01-08 Telephone Louise, 1.2.840.1 [id number] Univers 00:00:00 00:00:00 Maamdou Johns 95116.1.1 ity of 3.104.2.7 [place] .3.146394 Medica l .[facility] [place] 2019-12-29 2019-12-29 Outpatient R [facility] [id number] Univers 10:00:00 10:00:00 [id number] ity of [facility] 2019-12-29 2019-12-29 Outpatient R LORENZAMAMI AVITIA [facility] [id number] Univers 10:00:00 10:00:00 ity of [facility] 2019-12-29 2019-12-29 Travel 1.2.840.1 1.2.800.302 [id number] Univers 00:00:00 00:00:00 01120.1.1 350.1.13.10 ity of 3.104.2.[place].698 [place] .3.694950 084.8 Med[facility] l .8 [place] 2019-11-24 2019-11-24 Outpatient R [facility] [id number] Univers 10:00:00 10:00:00 [id number] ity of [facility] 2019-11-24 2019-11-24 Outpatient R JUNO HOSKINS [facility] [id number] Univers 10:00:00 10:00:00 ity of [facility] 2019-11-24 2019-11-24 Travel 1.2.840.1 1.2.337.696 [id number] Univers 00:00:00 00:00:00 54937.1.1 350.1.13.10 ity of 3.104.2.[place] .3.710907 084.8 Med[facility] l .8 [place] 2019-10-12 2019-10-12 Outpatient R [facility] [id number] Univers 12:45:00 12:45:00 [id number] ity of [facility] 2019-10-12 2019-10-12 Outpatient R LILLIAM [facility] [id number] Univers 12:45:00 12:45:00 ADRIAN ity of [facility] 2019-09-08 2019-09-08 Outpatient R [facility] [id number] Univers 09:15:00 09:15:00 [id number] ity of [facility] 2019-09-08 2019-09-08 Outpatient R MAMI GODOY [facility] [id number] Univers 09:15:00 09:15:00 ity of [facility] 2019-09-06 2019-09-06 Janice Gil, 1.2.840.5 [id number] Univers 00:00:00 00:00:00 Mamadou Gene 61236.1.1 ity of 3.104.2.7 [place] .3.659521 Medica l .8 [place] 2019-08-11 2019-08-11 Outpatient R MAMI GODOY [facility] [id number] Univers 10:00:00 10:00:00 ity of [facility] 2019-02-20 2019-02-20 [employer] Mami Godoy 1.2.840.1 [id number] Univers 10:14:05 10:29:05 Visit 1, [facility] Lab 95409.1.1 i ty of 3.104.2.7 [place] .3.587798 Medica l .8 [place] 2019-02-10 2019-02-10 Orders Doctor 1.2.840.8 [id number] Univers 00:00:00 00:00:00 Only Unassigned, 53585.1.1 ity of [place] 3.104.2.7 [place] .3.526494 Medica l .8 Branch 2019-01-11 2019-01-11 Refill Louise, 1.2.840.6 [id number] Univers 00:00:00 00:00:00 Mamadou Gene 42921.1.1 ity of 3.104.2.7 [place] .3.149521 Medica l .8 Branch 2018-12-26 2018-12-26 Office Louise, 1.2.840.6 [id number] Univers 15:42:00 17:08:53 Visit Mamadou Gene 88145.1.1 ity of 3.104.2.7 [place] .3.989236 Medica l .8 [place] 2018-11-21 2018-11-21 Orders Doctor 1.2.840.7 [id number] Univers 00:00:00 00:00:00 Only Unassigned, 94722.1.1 ity of [place] 3.104.2.7 [place] .3.418480 Medica l .8 Branch 2018-09-16 2018-09-16 Telephone Louise, 1.2.840.9 [id number] Univers 00:00:00 00:00:00 Mamadou Gene 28541.1.1 ity of 3.104.2.7 [place] .3.155276 Medica l .8 [place] 2018 2018 Office Louise, 1.2.840.0 [id number] Univers 15:36:03 17:23:49 Visit Mamadou Gene 60923.1.1 ity of 3.104.2.7 [place] .3.545126 Medica l .[facility] [place] Results Test Description Test Time Test Comments Results Result Comments Source VALPROIC ACID, TOTAL 2020-07-19 23:16:00 Test Item Value Reference Range Interpretation Comme nts VALPROIC A (test code = 4335514359) 32 ug/mL 50-100 L JOEY (test code = JOEY) Toxic Range: ?Greater than 100 ug/mL Lab Interpretation (test code = 74143-3) [facility] [id number] 23:16:00 Test Item Value Reference Range Interpretation Comments VALPROIC A (test code = 32 ug/mL 50-100 L [id number]) JOEY (test code = JOEY) Toxic Range: ?Greater than 100 ug/mL Lab Interpretation (test Abnormal code = 77163-7) [facility], [id number] 23:16:00 Test Item Value Reference Range Interpretation Comments VALPROIC A (test code = 32 ug/mL 50-100 L 1151434108) JOEY (test code = JOEY) Toxic Range: ?Greater than 100 ug/mL Lab Interpretation (test Abnormal code = 27102-0) [facility], [id number] 23:16:00 Test Item Value Reference Range Interpretation Comments VALPROIC A (test code = 32 ug/mL 50-100 L 0002517349) JOEY (test code = JOEY) Toxic Range: ?Greater than 100 ug/mL Lab Interpretation (test Abnormal code = 27820-8) [facility], [id number] 23:16:00 Test Item Value Reference Range Interpretation Comments VALPROIC A (test code = 32 ug/mL 50-100 L [id number]) JOEY (test code = JOEY) Toxic Range: ?Greater than 100 ug/mL Lab Interpretation (test Abnormal code = 87607-3) [facility], [id number] 23:16:00 Test Item Value Reference Range Interpretation Comments VALPROIC A (test code = 32 ug/mL 50-100 L [id number]) JOEY (test code = JOEY) Toxic Range: ?Greater than 100 ug/mL Lab Interpretation (test Abnormal code = 38279-7) [facility] [id number] 17:48:00 Test Item Value Reference Range Interpretation Comments TSH (test code = See_Comment [Automated message] [id number]) The system [email or web address] generated this result transmitted ref erence range: 0.45 - 4 .70 mIU/L. The refe rence range was not u sed to interpret this result as normal/abnor mal. Lab Interpretation (test Normal code = 65172-2) [facility] [id number] 17:48:00 Test Item Value Reference Range Interpretation Comments TSH (test code = See_Comment [Automated message] [id number]) The system [email or web address] generated this result transmitted ref erence range: 0.45 - 4 .70 mIU/L. The refe rence range was not u sed to interpret this result as normal/abnor mal. Lab Interpretation (test Normal code = 24203-7) [facility] [id number] 17:48:00 Test Item Value Reference Range Interpretation Comments TSH (test code = See_Comment [Automated message] [id number]) The system [email or web address] generated this result transmitted ref erence range: 0.45 - 4 .70 mIU/L. The refe rence range was not u sed to interpret this result as normal/abnor mal. Lab Interpretation (test Normal code = 66505-6) [facility] [id number] 17:48:00 Test Item Value Reference Range Interpretation Comments TSH (test code = See_Comment [Automated message] [id number]) The system [email or web address] generated this result transmitted ref erence range: 0.45 - 4 .70 mIU/L. The refe rence range was not u sed to interpret this result as normal/abnor mal. Lab Interpretation (test Normal code = 29646-6) [facility] [id number] 17:48:00 Test Item Value Reference Range Interpretation Comments TSH (test code = See_Comment [Automated message] [id number]) The system [email or web address] generated this result transmitted ref erence range: 0.45 - 4 .70 mIU/L. The refe rence range was not u sed to interpret this result as normal/abnor mal. Lab Interpretation (test Normal code = 66337-1) [facility] [id number] 17:48:00 Test Item Value Reference Range Interpretation Comments TSH (test code = See_Comment [Automated message] [id number]) The system [email or web address] generated this result transmitted ref erence range: 0.45 - 4 .70 mIU/L. The refe rence range was not u sed to interpret this result as normal/abnor mal. Lab Interpretation (test Normal code = 73666-3) [facility] [id number] 17:48:00 Test Item Value Reference Range Interpretation Comments TSH (test code = See_Comment [Automated message] [id number]) The system [email or web address] generated this result transmitted ref erence range: 0.45 - 4 .70 mIU/L. The refe rence range was not u sed to interpret this result as normal/abnor mal. Lab Interpretation (test Normal code = 67175-5) [facility] [id number] 17:48:00 Test Item Value Reference Range Interpretation Comments TSH (test code = See_Comment [Automated message] 3691115365) The system [email or web address] generated this result transmitted ref erence range: 0.45 - 4 .70 mIU/L. The refe rence range was not u sed to interpret this result as normal/abnor mal. Lab Interpretation (test Normal code = 24376-6) [facility] [id number] 17:48:00 Test Item Value Reference Range Interpretation Comments TSH (test code = See_Comment [Automated message] [id number]) The system [email or web address] generated this result transmitted ref erence range: 0.45 - 4 .70 mIU/L. The refe rence range was not u sed to interpret this result as normal/abnor mal. Lab Interpretation (test Normal code = 63358-2) [facility] [id number] 17:48:00 Test Item Value Reference Range Interpretation Comments TSH (test code = See_Comment [Automated message] 2932520323) The system [email or web address] generated this result transmitted ref erence range: 0.45 - 4 .70 mIU/L. The refe rence range was not u sed to interpret this result as normal/abnor mal. Lab Interpretation (test Normal code = 70344-2) [facility] [id number] 17:48:00 Test Item Value Reference Range Interpretation Comments TSH (test code = See_Comment [Automated message] [id number]) The system [email or web address] generated this result transmitted ref erence range: 0.45 - 4 .70 mIU/L. The refe rence range was not u sed to interpret this result as normal/abnor mal. Lab Interpretation (test Normal code = 00746-5) [facility] [id number] 17:48:00 Test Item Value Reference Range Interpretation Comments TSH (test code = See_Comment [Automated message] [id number]) The system [email or web address] generated this result transmitted ref erence range: 0.45 - 4 .70 mIU/L. The refe rence range was not u sed to interpret this result as normal/abnor mal. Lab Interpretation (test Normal code = 67329-4) [facility] [id number] 17:48:00 Test Item Value Reference Range Interpretation Comments TSH (test code = See_Comment [Automated message] [id number]) The system [email or web address] generated this result transmitted ref erence range: 0.45 - 4 .70 mIU/L. The refe rence range was not u sed to interpret this result as normal/abnor mal. Lab Interpretation (test Normal code = 46515-3) [facility] [id number] 17:48:00 Test Item Value Reference Range Interpretation Comments TSH (test code = See_Comment [Automated message] [id number]) The system [email or web address] generated this result transmitted ref erence range: 0.45 - 4 .70 mIU/L. The refe rence range was not u sed to interpret this result as normal/abnor mal. Lab Interpretation (test Normal code = 91372-3) [facility] [place] [facility] (58423)(TOTAL CHOLESTEROL, TRIGLYCERIDES, HDL)2020-02-07 17:19:00 Test Item Value Reference Range Interpretation Comments CHOL (test code = 117 mg/dL 120-200 L [id number]) HDL (test code = 38 mg/dL >40 L [id number]) HDLC RATIO (test code = See_Comment [Au tomated message] 0162904320) The system [email or web address] generated this result transmit claribel reference range : <=5.0. The refe rence range was not u sed to interpret th is result as normal/abnormal . TRIG (test code = 50 mg/dL 30-170 4025003124) LDL CHOL (test code = 69 mg/dL See_Comment [Auto mated message] 54153-2) The system [email or web address] generated this result transmit claribel reference range : <=160. The refe rence range was not u sed to interpret th is result as normal/abnormal . VLDL (test code = 10 mg/dL 5-60 7617751983) Lab Interpretation (test Abnormal code = 24290-0) [id number]TOTAL CHOLESTEROL, TRIGLYCERIDES, HDL)2020-02-07 17:19:00 Test Item Value Reference Range Interpretation Comments CHOL (test code = 117 mg/dL 120-200 L 0356785594) HDL (test code = 38 mg/dL >40 L 2724131922) HDLC RATIO (test code = See_Comment [Au tomated message] 0092402856) The system [email or web address] generated this result transmit claribel reference range : <=5.0. The refe rence range was not u sed to interpret th is result as normal/abnormal . TRIG (test code = 50 mg/dL 30-170 5533273428) LDL CHOL (test code = 69 mg/dL See_Comment [Auto mated message] 67194-8) The system [email or web address] generated this result transmit claribel reference range : <=160. The refe rence range was not u sed to interpret th is result as normal/abnormal . VLDL (test code = 10 mg/dL 5-60 3157237452) Lab Interpretation (test Abnormal code = 82674-6) [facility][id number][facility]TOTAL CHOLESTEROL, TRIGLYCERIDES, HDL)2020-02-07 17:19:00 Test Item Value Reference Range Interpretation Comments CHOL (test code = 117 mg/dL 120-200 L 4284532469) HDL (test code = 38 mg/dL >40 L 5158832086) HDLC RATIO (test code = See_Comment [Au tomated message] 3802352078) The system [email or web address] generated this result transmit claribel reference range : <=5.0. The refe rence range was not u sed to interpret th is result as normal/abnormal . TRIG (test code = 50 mg/dL 30-170 2183086259) LDL CHOL (test code = 69 mg/dL See_Comment [Auto mated message] 49717-1) The system [email or web address] generated this result transmit claribel reference range : <=160. The refe rence range was not u sed to interpret th is result as normal/abnormal . VLDL (test code = 10 mg/dL 5-60 7298731089) Lab Interpretation (test Abnormal code = 03866-9) [facility][id number]TOTAL CHOLESTEROL, TRIGLYCERIDES, HDL)2020-02-07 17:19:00 Test Item Value Reference Range Interpretation Comments CHOL (test code = 117 mg/dL 120-200 L 1052624092) HDL (test code = 38 mg/dL >40 L 7045320477) HDLC RATIO (test code = See_Comment [Au tomated message] 3134206989) The system [email or web address] generated this result transmit claribel reference range : <=5.0. The refe rence range was not u sed to interpret th is result as normal/abnormal . TRIG (test code = 50 mg/dL 30-170 8674101026) LDL CHOL (test code = 69 mg/dL See_Comment [Auto mated message] 88454-8) The system [email or web address] generated this result transmit clariebl reference range : <=160. The refe rence range was not u sed to interpret th is result as normal/abnormal . VLDL (test code = 10 mg/dL 5-60 8155321993) Lab Interpretation (test Abnormal code = 05660-9) [facility][id number]TOTAL CHOLESTEROL, TRIGLYCERIDES, HDL)2020-02-07 17:19:00 Test Item Value Reference Range Interpretation Comments CHOL (test code = 117 mg/dL 120-200 L 0420819598) HDL (test code = 38 mg/dL >40 L 3903019150) HDLC RATIO (test code = See_Comment [Au tomated message] 3599251082) The system [email or web address] generated this result transmit claribel reference range : <=5.0. The refe rence range was not u sed to interpret th is result as normal/abnormal . TRIG (test code = 50 mg/dL 30-170 4408928624) LDL CHOL (test code = 69 mg/dL See_Comment [Auto mated message] 40900-0) The system [email or web address] generated this result transmit claribel reference range : <=160. The refe rence range was not u sed to interpret th is result as normal/abnormal . VLDL (test code = 10 mg/dL 5-60 1489080497) Lab Interpretation (test Abnormal code = 49608-4) [id number][facility]TOTAL CHOLESTEROL, TRIGLYCERIDES, HDL)2020-02-07 17:19:00 Test Item Value Reference Range Interpretation Comments CHOL (test code = 117 mg/dL 120-200 L 9865549706) HDL (test code = 38 mg/dL >40 L 5204336003) HDLC RATIO (test code = See_Comment [Au tomated message] 4121852694) The system [email or web address] generated this result transmit claribel reference range : <=5.0. The refe rence range was not u sed to interpret th is result as normal/abnormal . TRIG (test code = 50 mg/dL 30-170 0412472085) LDL CHOL (test code = 69 mg/dL See_Comment [Auto mated message] 16409-5) The system [email or web address] generated this result transmit claribel reference range : <=160. The refe rence range was not u sed to interpret th is result as normal/abnormal . VLDL (test code = 10 mg/dL 5-60 4387292093) Lab Interpretation (test Abnormal code = 35971-8) [id number]TOTAL CHOLESTEROL, TRIGLYCERIDES, HDL)2020-02-07 17:19:00 Test Item Value Reference Range Interpretation Comments CHOL (test code = 117 mg/dL 120-200 L 8905223479) HDL (test code = 38 mg/dL >40 L 7882033545) HDLC RATIO (test code = See_Comment [Au tomated message] 4036124473) The system [email or web address] generated this result transmit claribel reference range : <=5.0. The refe rence range was not u sed to interpret th is result as normal/abnormal . TRIG (test code = 50 mg/dL 30-170 6903254041) LDL CHOL (test code = 69 mg/dL See_Comment [Auto mated message] 37148-2) The system [email or web address] generated this result transmit claribel reference range : <=160. The refe rence range was not u sed to interpret th is result as normal/abnormal . VLDL (test code = 10 mg/dL 5-60 3692183544) Lab Interpretation (test Abnormal code = 71879-8) [facility][id number])(TOTAL CHOLESTEROL, TRIGLYCERIDES, HDL)2020-02-07 17:19:00 Test Item Value Reference Range Interpretation Comments CHOL (test code = 117 mg/dL 120-200 L 3072897740) HDL (test code = 38 mg/dL >40 L 0067510284) HDLC RATIO (test code = See_Comment [Au tomated message] 5835135416) The system [email or web address] generated this result transmit claribel reference range : <=5.0. The refe rence range was not u sed to interpret th is result as normal/abnormal . TRIG (test code = 50 mg/dL 30-170 0627631348) LDL CHOL (test code = 69 mg/dL See_Comment [Auto mated message] 05356-7) The system [email or web address] generated this result transmit claribel reference range : <=160. The refe rence range was not u sed to interpret th is result as normal/abnormal . VLDL (test code = 10 mg/dL 5-60 5287822003) Lab Interpretation (test Abnormal code = 96490-1) [id number])(TOTAL CHOLESTEROL, TRIGLYCERIDES, HDL)2020-02-07 17:19:00 Test Item Value Reference Range Interpretation Comments CHOL (test code = 117 mg/dL 120-200 L 4230378005) HDL (test code = 38 mg/dL >40 L 7709231204) HDLC RATIO (test code = See_Comment [Au tomated message] 7994835129) The system [email or web address] generated this result transmit claribel reference range : <=5.0. The refe rence range was not u sed to interpret th is result as normal/abnormal . TRIG (test code = 50 mg/dL 30-170 3451777469) LDL CHOL (test code = 69 mg/dL See_Comment [Auto mated message] 66636-1) The system [email or web address] generated this result transmit claribel reference range : <=160. The refe rence range was not u sed to interpret th is result as normal/abnormal . VLDL (test code = 10 mg/dL 5-60 1264183839) Lab Interpretation (test Abnormal code = 23664-0) [id number][facility]TOTAL CHOLESTEROL, TRIGLYCERIDES, HDL)2020-02-07 17:19:00 Test Item Value Reference Range Interpretation Comments CHOL (test code = 117 mg/dL 120-200 L 7558564225) HDL (test code = 38 mg/dL >40 L 0612763501) HDLC RATIO (test code = See_Comment [Au tomated message] 0663012449) The system [email or web address] generated this result transmit claribel reference range : <=5.0. The refe rence range was not u sed to interpret th is result as normal/abnormal . TRIG (test code = 50 mg/dL 30-170 8271147035) LDL CHOL (test code = 69 mg/dL See_Comment [Auto mated message] 52620-8) The system [email or web address] generated this result transmit claribel reference range : <=160. The refe rence range was not u sed to interpret th is result as normal/abnormal . VLDL (test code = 10 mg/dL 5-60 8076665945) Lab Interpretation (test Abnormal code = 37319-2) [facility][id number])(TOTAL CHOLESTEROL, TRIGLYCERIDES, HDL)2020-02-07 17:19:00 Test Item Value Reference Range Interpretation Comments CHOL (test code = 117 mg/dL 120-200 L 2525691439) HDL (test code = 38 mg/dL >40 L 8041391039) HDLC RATIO (test code = See_Comment [Au tomated message] 1248580273) The system [email or web address] generated this result transmit claribel reference range : <=5.0. The refe rence range was not u sed to interpret th is result as normal/abnormal . TRIG (test code = 50 mg/dL 30-170 8974087359) LDL CHOL (test code = 69 mg/dL See_Comment [Auto mated message] 90927-7) The system [email or web address] generated this result transmit claribel reference range : <=160. The refe rence range was not u sed to interpret th is result as normal/abnormal . VLDL (test code = 10 mg/dL 5-60 4455128679) Lab Interpretation (test Abnormal code = 65988-4) [facility][id number][facility]TOTAL CHOLESTEROL, TRIGLYCERIDES, HDL)2020-02-07 17:19:00 Test Item Value Reference Range Interpretation Comments CHOL (test code = 117 mg/dL 120-200 L 4454235721) HDL (test code = 38 mg/dL >40 L 9711620574) HDLC RATIO (test code = See_Comment [Au tomated message] 6635292785) The system [email or web address] generated this result transmit claribel reference range : <=5.0. The refe rence range was not u sed to interpret th is result as normal/abnormal . TRIG (test code = 50 mg/dL 30-170 5042366053) LDL CHOL (test code = 69 mg/dL See_Comment [Auto mated message] 07362-7) The system [email or web address] generated this result transmit claribel reference range : <=160. The refe rence range was not u sed to interpret th is result as normal/abnormal . VLDL (test code = 10 mg/dL 5-60 5617261220) Lab Interpretation (test Abnormal code = 13740-2) [id number][facility]TOTAL CHOLESTEROL, TRIGLYCERIDES, HDL)2020-02-07 17:19:00 Test Item Value Reference Range Interpretation Comments CHOL (test code = 117 mg/dL 120-200 L 4010094643) HDL (test code = 38 mg/dL >40 L 6717598342) HDLC RATIO (test code = See_Comment [Au tomated message] 4843458477) The system [email or web address] generated this result transmit claribel reference range : <=5.0. The refe rence range was not u sed to interpret th is result as normal/abnormal . TRIG (test code = 50 mg/dL 30-170 9290054550) LDL CHOL (test code = 69 mg/dL See_Comment [Auto mated message] 01422-6) The system [email or web address] generated this result transmit claribel reference range : <=160. The refe rence range was not u sed to interpret th is result as normal/abnormal . VLDL (test code = 10 mg/dL 5-60 6560643135) Lab Interpretation (test Abnormal code = 54357-8) [facility][id number][facility]TOTAL CHOLESTEROL, TRIGLYCERIDES, HDL)2020-02-07 17:19:00 Test Item Value Reference Range Interpretation Comments CHOL (test code = 117 mg/dL 120-200 L 0784134002) HDL (test code = 38 mg/dL >40 L 1973835790) HDLC RATIO (test code = See_Comment [Au tomated message] 0991676994) The system [email or web address] generated this result transmit claribel reference range : <=5.0. The refe rence range was not u sed to interpret th is result as normal/abnormal . TRIG (test code = 50 mg/dL 30-170 7312695449) LDL CHOL (test code = 69 mg/dL See_Comment [Auto mated message] 71994-7) The system [email or web address] generated this result transmit claribel reference range : <=160. The refe rence range was not u sed to interpret th is result as normal/abnormal . VLDL (test code = 10 mg/dL 5-60 2348273286) Lab Interpretation (test Abnormal code = 17038-5) [facility]. METABOLIC PANEL ([id number])2020-02-07 17:18:00 Test Item Value Reference Range Interpretation Comments NA (test code = 141 mmol/L 135-145 2867492815) K (test code = 4.3 mmol/L 3.5-5 8243121031) CL (test code = 103 mmol/L 98-108 9819838323) CO2 TOTAL (test code = 30 mmol/L 23-31 3838651397) AGAP (test code = 2-16 9348187106) BUN (test code = 13 mg/dL 7-23 2528550910) GLUCOSE (test code = 91 mg/dL 70-110 5277441214) CREATININE (test code = 0.80 mg/dL 0.6-1.25 2183244597) TOTAL BILI (test code = 0.6 mg/dL 0.1-1.2 2411623408) CALCIUM (test code = 9.7 mg/dL 8.6-10.6 9700174072) T PROTEIN (test code = 5.6 g/dL 6.3-8.2 L 0638401388) ALBUMIN (test code = 3.4 g/dL 3.5-5 L 0490588896) ALK PHOS (test code = 76 U/L 34-122 3824559690) ALTv (test code = 15 U/L 5-50 1742-6) AST(SGOT) (test code = 17 U/L 13-40 5376678375) eGFR Calculation mL/min/1.73m2 (Non-) (test code = 1778834183) eGFR Calculation mL/min/1.73m2 () (test code = 8909960439) JOEY (test code = JEOY) Association of Glomerular Filtration Rate (GFR) and [...] tests). Lab Interpretation Abnormal (test code = 03809-6) [facility] ([id number])2020-02-07 17:18:00 Test Item Value Reference Range Interpretation Comments NA (test code = 141 mmol/L 135-145 9531672443) K (test code = 4.3 mmol/L 3.5-5 4427752125) CL (test code = 103 mmol/L 98-108 5832997532) CO2 TOTAL (test code = 30 mmol/L 23-31 5696566949) AGAP (test code = 2-16 6843665691) BUN (test code = 13 mg/dL 7-23 8459936961) GLUCOSE (test code = 91 mg/dL 70-110 5784321918) CREATININE (test code = 0.80 mg/dL 0.6-1.25 9688547864) TOTAL BILI (test code = 0.6 mg/dL 0.1-1.1 4079347199) CALCIUM (test code = 9.7 mg/dL 8.6-10.6 5258259602) T PROTEIN (test code = 5.6 g/dL 6.3-8.2 L 3359322003) ALBUMIN (test code = 3.4 g/dL 3.5-5 L 8720625997) ALK PHOS (test code = 76 U/L 34-122 6105207454) ALTv (test code = 15 U/L 5-50 1742-6) AST(SGOT) (test code = 17 U/L 13-40 7070944383) eGFR Calculation mL/min/1.73m2 (Non-) (test code = 5230267745) eGFR Calculation mL/min/1.73m2 () (test code = 6336667320) JOEY (test code = JOEY) Association of [...] tests). Lab Interpretation Abnormal (test code = 09306-9) [facility]. METABOLIC PANEL ([id number])2020-02-07 17:18:00 Test Item Value Reference Range Interpretation Comments NA (test code = 141 mmol/L 135-145 8225956744) K (test code = 4.3 mmol/L 3.5-5 1746103005) CL (test code = 103 mmol/L 98-108 1166458118) CO2 TOTAL (test code = 30 mmol/L 23-31 2112595575) AGAP (test code = 2-16 8516887073) BUN (test code = 13 mg/dL 7-23 9700075318) GLUCOSE (test code = 91 mg/dL 70-110 4751121293) CREATININE (test code = 0.80 mg/dL 0.6-1.25 6217772215) TOTAL BILI (test code = 0.6 mg/dL 0.1-1.7 0354068392) CALCIUM (test code = 9.7 mg/dL 8.6-10.6 6897432665) T PROTEIN (test code = 5.6 g/dL 6.3-8.2 L 7619045052) ALBUMIN (test code = 3.4 g/dL 3.5-5 L 9437242225) ALK PHOS (test code = 76 U/L 34-122 6998142118) ALTv (test code = 15 U/L 5-50 1742-6) AST(SGOT) (test code = 17 U/L 13-40 1936735371) eGFR Calculation mL/min/1.73m2 (Non-) (test code = 2000173515) eGFR Calculation mL/min/1.73m2 () (test code = 8700202970) JOEY (test code = JOEY) Association of [...] tests). Lab Interpretation Abnormal (test code = 62234-2) [facility]. METABOLIC PANEL ([id number])2020-02-07 17:18:00 Test Item Value Reference Range Interpretation Comments NA (test code = 141 mmol/L 135-145 1787793540) K (test code = 4.3 mmol/L 3.5-5 8120304665) CL (test code = 103 mmol/L 98-108 9698255554) CO2 TOTAL (test code = 30 mmol/L 23-31 9786582720) AGAP (test code = 2-16 3856249281) BUN (test code = 13 mg/dL 7-23 0800608750) GLUCOSE (test code = 91 mg/dL 70-110 0979921271) CREATININE (test code = 0.80 mg/dL 0.6-1.25 7330377797) TOTAL BILI (test code = 0.6 mg/dL 0.1-1.8 1811163717) CALCIUM (test code = 9.7 mg/dL 8.6-10.6 7314832201) T PROTEIN (test code = 5.6 g/dL 6.3-8.2 L 7380601590) ALBUMIN (test code = 3.4 g/dL 3.5-5 L 6159137830) ALK PHOS (test code = 76 U/L 34-122 0424940906) ALTv (test code = 15 U/L 5-50 1742-6) AST(SGOT) (test code = 17 U/L 13-40 2635022894) eGFR Calculation mL/min/1.73m2 (Non-) (test code = 8601096798) eGFR Calculation mL/min/1.73m2 () (test code = 0478728313) JOEY (test code = JOEY) Association of [...] tests). Lab Interpretation Abnormal (test code = 55527-3) [facility] METABOLIC PANEL ([id number])2020-02-07 17:18:00 Test Item Value Reference Range Interpretation Comments NA (test code = 141 mmol/L 135-145 7751201760) K (test code = 4.3 mmol/L 3.5-5 2345173108) CL (test code = 103 mmol/L 98-108 0046501514) CO2 TOTAL (test code = 30 mmol/L 23-31 0597873515) AGAP (test code = 2-16 7224333977) BUN (test code = 13 mg/dL 7-23 4960269061) GLUCOSE (test code = 91 mg/dL 70-110 7798816101) CREATININE (test code = 0.80 mg/dL 0.6-1.25 6529411348) TOTAL BILI (test code = 0.6 mg/dL 0.1-1.6 8319451500) CALCIUM (test code = 9.7 mg/dL 8.6-10.6 2416089832) T PROTEIN (test code = 5.6 g/dL 6.3-8.2 L 1525259960) ALBUMIN (test code = 3.4 g/dL 3.5-5 L 2137500625) ALK PHOS (test code = 76 U/L 34-122 2050512327) ALTv (test code = 15 U/L 5-50 1742-6) AST(SGOT) (test code = 17 U/L 13-40 5710189022) eGFR Calculation mL/min/1.73m2 (Non-) (test code = 3178249063) eGFR Calculation mL/min/1.73m2 () (test code = 4687793603) JOEY (test code = JOEY) Association of [...] tests). Lab Interpretation Abnormal (test code = 18635-8) [facility] METABOLIC PANEL ([id number])2020-02-07 17:18:00 Test Item Value Reference Range Interpretation Comments NA (test code = 141 mmol/L 135-145 7910365993) K (test code = 4.3 mmol/L 3.5-5 0412463219) CL (test code = 103 mmol/L 98-108 7416998475) CO2 TOTAL (test code = 30 mmol/L 23-31 3465743956) AGAP (test code = 2-16 2156178749) BUN (test code = 13 mg/dL 7-23 9478163528) GLUCOSE (test code = 91 mg/dL 70-110 2756522406) CREATININE (test code = 0.80 mg/dL 0.6-1.25 7467552573) TOTAL BILI (test code = 0.6 mg/dL 0.1-1.7 5283158942) CALCIUM (test code = 9.7 mg/dL 8.6-10.6 5641407417) T PROTEIN (test code = 5.6 g/dL 6.3-8.2 L 2730297582) ALBUMIN (test code = 3.4 g/dL 3.5-5 L 0744572249) ALK PHOS (test code = 76 U/L 34-122 9494707788) ALTv (test code = 15 U/L 5-50 1742-6) AST(SGOT) (test code = 17 U/L 13-40 6790529391) eGFR Calculation mL/min/1.73m2 (Non-) (test code = 6820063196) eGFR Calculation mL/min/1.73m2 () (test code = 1069131372) JOEY (test code = JOEY) Association of [...] tests). Lab Interpretation Abnormal (test code = 21085-0) [facility] ([id number])2020-02-07 17:18:00 Test Item Value Reference Range Interpretation Comments NA (test code = 141 mmol/L 135-145 2771899249) K (test code = 4.3 mmol/L 3.5-5 0516867199) CL (test code = 103 mmol/L 98-108 2732512343) CO2 TOTAL (test code = 30 mmol/L 23-31 9105050796) AGAP (test code = 2-16 7293448090) BUN (test code = 13 mg/dL 7-23 4098925680) GLUCOSE (test code = 91 mg/dL 70-110 1080282141) CREATININE (test code = 0.80 mg/dL 0.6-1.25 6195519233) TOTAL BILI (test code = 0.6 mg/dL 0.1-1.6 7314241826) CALCIUM (test code = 9.7 mg/dL 8.6-10.6 3409582414) T PROTEIN (test code = 5.6 g/dL 6.3-8.2 L 9697501390) ALBUMIN (test code = 3.4 g/dL 3.5-5 L 1042236905) ALK PHOS (test code = 76 U/L 34-122 8597018654) ALTv (test code = 15 U/L 5-50 1742-6) AST(SGOT) (test code = 17 U/L 13-40 8341833091) eGFR Calculation mL/min/1.73m2 (Non-) (test code = 2709527694) eGFR Calculation mL/min/1.73m2 () (test code = 7782624080) JOEY (test code = JOEY) Association of [...] tests). Lab Interpretation Abnormal (test code = 79127-3) [facility]. METABOLIC PANEL ([id number])2020-02-07 17:18:00 Test Item Value Reference Range Interpretation Comments NA (test code = 141 mmol/L 135-145 6801229916) K (test code = 4.3 mmol/L 3.5-5 0971434578) CL (test code = 103 mmol/L 98-108 9738080957) CO2 TOTAL (test code = 30 mmol/L 23-31 9324004777) AGAP (test code = 2-16 0012143851) BUN (test code = 13 mg/dL 7-23 5638274815) GLUCOSE (test code = 91 mg/dL 70-110 3935303291) CREATININE (test code = 0.80 mg/dL 0.6-1.25 2715082921) TOTAL BILI (test code = 0.6 mg/dL 0.1-1.7 5434474449) CALCIUM (test code = 9.7 mg/dL 8.6-10.6 4798694916) T PROTEIN (test code = 5.6 g/dL 6.3-8.2 L 9301505590) ALBUMIN (test code = 3.4 g/dL 3.5-5 L 4736850361) ALK PHOS (test code = 76 U/L 34-122 2512062278) ALTv (test code = 15 U/L 5-50 1742-6) AST(SGOT) (test code = 17 U/L 13-40 7540242227) eGFR Calculation mL/min/1.73m2 (Non-) (test code = 9241454913) eGFR Calculation mL/min/1.73m2 () (test code = 6685061421) JOEY (test code = JOEY) Association of [...] tests). Lab Interpretation Abnormal (test code = 94741-0) [facility] METABOLIC PANEL ([id number])2020-02-07 17:18:00 Test Item Value Reference Range Interpretation Comments NA (test code = 141 mmol/L 135-145 7538079552) K (test code = 4.3 mmol/L 3.5-5 3114125862) CL (test code = 103 mmol/L 98-108 4407004784) CO2 TOTAL (test code = 30 mmol/L 23-31 9827196743) AGAP (test code = 2-16 7663101502) BUN (test code = 13 mg/dL 7-23 2533204170) GLUCOSE (test code = 91 mg/dL 70-110 4704879570) CREATININE (test code = 0.80 mg/dL 0.6-1.25 2281168924) TOTAL BILI (test code = 0.6 mg/dL 0.1-1.6 7718555404) CALCIUM (test code = 9.7 mg/dL 8.6-10.6 0239107083) T PROTEIN (test code = 5.6 g/dL 6.3-8.2 L 3383047992) ALBUMIN (test code = 3.4 g/dL 3.5-5 L 2996916733) ALK PHOS (test code = 76 U/L 34-122 4231982916) ALTv (test code = 15 U/L 5-50 1742-6) AST(SGOT) (test code = 17 U/L 13-40 8481381088) eGFR Calculation mL/min/1.73m2 (Non-) (test code = 1687995689) eGFR Calculation mL/min/1.73m2 () (test code = 1845569482) JOEY (test code = JOEY) Association of [...] tests). Lab Interpretation Abnormal (test code = 72383-2) [facility] METABOLIC PANEL ([id number])2020-02-07 17:18:00 Test Item Value Reference Range Interpretation Comments NA (test code = 141 mmol/L 135-145 3847640628) K (test code = 4.3 mmol/L 3.5-5 8109735659) CL (test code = 103 mmol/L 98-108 4328865097) CO2 TOTAL (test code = 30 mmol/L 23-31 8640420801) AGAP (test code = 2-16 3053932182) BUN (test code = 13 mg/dL 7-23 7738909252) GLUCOSE (test code = 91 mg/dL 70-110 4831705227) CREATININE (test code = 0.80 mg/dL 0.6-1.25 9869436884) TOTAL BILI (test code = 0.6 mg/dL 0.1-1.4 8189270922) CALCIUM (test code = 9.7 mg/dL 8.6-10.6 1853045010) T PROTEIN (test code = 5.6 g/dL 6.3-8.2 L 1929491804) ALBUMIN (test code = 3.4 g/dL 3.5-5 L 2969587325) ALK PHOS (test code = 76 U/L 34-122 3632299553) ALTv (test code = 15 U/L 5-50 1742-6) AST(SGOT) (test code = 17 U/L 13-40 7682930398) eGFR Calculation mL/min/1.73m2 (Non-) (test code = 7524513809) eGFR Calculation mL/min/1.73m2 () (test code = 9606518193) JOEY (test code = JOEY) Association of [...] tests). Lab Interpretation Abnormal (test code = 94507-0) [facility]. METABOLIC PANEL (00653)2020-02-07 17:18:00 Test Item Value Reference Range Interpretation Comments NA (test code = 141 mmol/L 135-145 3872990679) K (test code = 4.3 mmol/L 3.5-5 8282849591) CL (test code = 103 mmol/L 98-108 7984674089) CO2 TOTAL (test code = 30 mmol/L 23-31 5418884045) AGAP (test code = 2-16 8500115958) BUN (test code = 13 mg/dL 7-23 2632531567) GLUCOSE (test code = 91 mg/dL 70-110 6587775707) CREATININE (test code = 0.80 mg/dL 0.6-1.25 8073351156) TOTAL BILI (test code = 0.6 mg/dL 0.1-1.4 8850900607) CALCIUM (test code = 9.7 mg/dL 8.6-10.6 5434993039) T PROTEIN (test code = 5.6 g/dL 6.3-8.2 L 2459741134) ALBUMIN (test code = 3.4 g/dL 3.5-5 L 5883378670) ALK PHOS (test code = 76 U/L 34-122 0450351113) ALTv (test code = 15 U/L 5-50 1742-6) AST(SGOT) (test code = 17 U/L 13-40 6395004455) eGFR Calculation mL/min/1.73m2 (Non-) (test code = 6022090463) eGFR Calculation mL/min/1.73m2 () (test code = 7109119682) JOEY (test code = JOEY) Association of [...] tests). Lab Interpretation Abnormal (test code = 29798-1) [facility] ([id number])2020-02-07 17:18:00 Test Item Value Reference Range Interpretation Comments NA (test code = 141 mmol/L 135-145 9823317624) K (test code = 4.3 mmol/L 3.5-5 1972346676) CL (test code = 103 mmol/L 98-108 8931293074) CO2 TOTAL (test code = 30 mmol/L 23-31 6404191804) AGAP (test code = 2-16 0095398667) BUN (test code = 13 mg/dL 7-23 4585688324) GLUCOSE (test code = 91 mg/dL 70-110 8473893404) CREATININE (test code = 0.80 mg/dL 0.6-1.25 7504048078) TOTAL BILI (test code = 0.6 mg/dL 0.1-1.6 9263805921) CALCIUM (test code = 9.7 mg/dL 8.6-10.6 7404937770) T PROTEIN (test code = 5.6 g/dL 6.3-8.2 L 7545704997) ALBUMIN (test code = 3.4 g/dL 3.5-5 L 4051769286) ALK PHOS (test code = 76 U/L 34-122 0093893467) ALTv (test code = 15 U/L 5-50 1742-6) AST(SGOT) (test code = 17 U/L 13-40 9527444434) eGFR Calculation mL/min/1.73m2 (Non-) (test code = 2952988780) eGFR Calculation mL/min/1.73m2 () (test code = 6372193392) JOEY (test code = JOEY) Association of [...] tests). Lab Interpretation Abnormal (test code = 53732-7) [facility]. METABOLIC PANEL ([id number])2020-02-07 17:18:00 Test Item Value Reference Range Interpretation Comments NA (test code = 141 mmol/L 135-145 6783667190) K (test code = 4.3 mmol/L 3.5-5 7815375838) CL (test code = 103 mmol/L 98-108 2251614587) CO2 TOTAL (test code = 30 mmol/L 23-31 8001641304) AGAP (test code = 2-16 4703164322) BUN (test code = 13 mg/dL 7-23 9527722229) GLUCOSE (test code = 91 mg/dL 70-110 4219782284) CREATININE (test code = 0.80 mg/dL 0.6-1.25 3500696312) TOTAL BILI (test code = 0.6 mg/dL 0.1-1.3 9644370901) CALCIUM (test code = 9.7 mg/dL 8.6-10.6 6301441580) T PROTEIN (test code = 5.6 g/dL 6.3-8.2 L 0739550085) ALBUMIN (test code = 3.4 g/dL 3.5-5 L 2479881864) ALK PHOS (test code = 76 U/L 34-122 3763893058) ALTv (test code = 15 U/L 5-50 1742-6) AST(SGOT) (test code = 17 U/L 13-40 1148457252) eGFR Calculation mL/min/1.73m2 (Non-) (test code = 7213880433) eGFR Calculation mL/min/1.73m2 () (test code = 2438081798) JOEY (test code = JOEY) Association of [...] tests). Lab Interpretation Abnormal (test code = 28551-5) [facility]. METABOLIC PANEL ([id number])2020-02-07 17:18:00 Test Item Value Reference Range Interpretation Comments NA (test code = 141 mmol/L 135-145 2829138685) K (test code = 4.3 mmol/L 3.5-5 3205506573) CL (test code = 103 mmol/L 98-108 6546864654) CO2 TOTAL (test code = 30 mmol/L 23-31 5819582739) AGAP (test code = 2-16 2535067596) BUN (test code = 13 mg/dL 7-23 4128648843) GLUCOSE (test code = 91 mg/dL 70-110 9959688672) CREATININE (test code = 0.80 mg/dL 0.6-1.25 8366449633) TOTAL BILI (test code = 0.6 mg/dL 0.1-1.0 2504352230) CALCIUM (test code = 9.7 mg/dL 8.6-10.6 8330041422) T PROTEIN (test code = 5.6 g/dL 6.3-8.2 L 6399320817) ALBUMIN (test code = 3.4 g/dL 3.5-5 L 6793261993) ALK PHOS (test code = 76 U/L 34-122 1616338829) ALTv (test code = 15 U/L 5-50 1742-6) AST(SGOT) (test code = 17 U/L 13-40 2165578525) eGFR Calculation mL/min/1.73m2 (Non-) (test code = 0581111171) eGFR Calculation mL/min/1.73m2 () (test code = 0337628165) JOEY (test code = JOEY) Association of [...] tests). Lab Interpretation Abnormal (test code = 76851-0) [facility] [id number] 17:06:00 Test Item Value Reference Range Interpretation Comments VALPROIC A (test code = 38 ug/mL 50-100 L 8097217101) JOEY (test code = JOEY) Toxic Range: ?Greater than 100 ug/mL Lab Interpretation (test Abnormal code = 16727-1) [facility] [id number] 17:06:00 Test Item Value Reference Range Interpretation Comments VALPROIC A (test code = 38 ug/mL 50-100 L 9306044649) JOEY (test code = JOEY) Toxic Range: ?Greater than 100 ug/mL Lab Interpretation (test Abnormal code = 18129-6) [facility] [id number] 17:06:00 Test Item Value Reference Range Interpretation Comments VALPROIC A (test code = 38 ug/mL 50-100 L 2974064101) JOEY (test code = JOEY) Toxic Range: ?Greater than 100 ug/mL Lab Interpretation (test Abnormal code = 35225-7) [facility], [id number] 17:06:00 Test Item Value Reference Range Interpretation Comments VALPROIC A (test code = 38 ug/mL 50-100 L 5057436080) JOEY (test code = JOEY) Toxic Range: ?Greater than 100 ug/mL Lab Interpretation (test Abnormal code = 08675-6) [facility], [id number] 17:06:00 Test Item Value Reference Range Interpretation Comments VALPROIC A (test code = 38 ug/mL 50-100 L 4939324315) JOEY (test code = JOEY) Toxic Range: ?Greater than 100 ug/mL Lab Interpretation (test Abnormal code = 66806-9) [facility], [id number] 17:06:00 Test Item Value Reference Range Interpretation Comments VALPROIC A (test code = 38 ug/mL 50-100 L 1652787815) JOEY (test code = JOEY) Toxic Range: ?Greater than 100 ug/mL Lab Interpretation (test Abnormal code = 70380-5) [facility], [id number] 17:06:00 Test Item Value Reference Range Interpretation Comments VALPROIC A (test code = 38 ug/mL 50-100 L 9283620138) JOEY (test code = JOEY) Toxic Range: ?Greater than 100 ug/mL Lab Interpretation (test Abnormal code = 61517-1) [facility], [id number] 17:06:00 Test Item Value Reference Range Interpretation Comments VALPROIC A (test code = 38 ug/mL 50-100 L 1294658232) JOEY (test code = JOEY) Toxic Range: ?Greater than 100 ug/mL Lab Interpretation (test Abnormal code = 26084-4) [facility], [id number] 17:06:00 Test Item Value Reference Range Interpretation Comments VALPROIC A (test code = 38 ug/mL 50-100 L 8810558624) JOEY (test code = JOEY) Toxic Range: ?Greater than 100 ug/mL Lab Interpretation (test Abnormal code = 74389-5) [facility], [id number] 17:06:00 Test Item Value Reference Range Interpretation Comments VALPROIC A (test code = 38 ug/mL 50-100 L 4229356772) JOEY (test code = JOEY) Toxic Range: ?Greater than 100 ug/mL Lab Interpretation (test Abnormal code = 53771-7) [facility], [id number] 17:06:00 Test Item Value Reference Range Interpretation Comments VALPROIC A (test code = 38 ug/mL 50-100 L 9587797979) JOEY (test code = JOEY) Toxic Range: ?Greater than 100 ug/mL Lab Interpretation (test Abnormal code = 92433-3) [facility] [id number] 17:06:00 Test Item Value Reference Range Interpretation Comments VALPROIC A (test code = 38 ug/mL 50-100 L 1688439462) JOEY (test code = JOEY) Toxic Range: ?Greater than 100 ug/mL Lab Interpretation (test Abnormal code = 03353-0) [facility], [id number] 17:06:00 Test Item Value Reference Range Interpretation Comments VALPROIC A (test code = 38 ug/mL 50-100 L 9287835787) JOEY (test code = JOEY) Toxic Range: ?Greater than 100 ug/mL Lab Interpretation (test Abnormal code = 18722-4) [facility], [id number] 17:06:00 Test Item Value Reference Range Interpretation Comments VALPROIC A (test code = 38 ug/mL 50-100 L 0448758536) JOEY (test code = JOEY) Toxic Range: ?Greater than 100 ug/mL Lab Interpretation (test Abnormal code = 68627-5) [facility], [id number] 17:06:00 Test Item Value Reference Range Interpretation Comments VALPROIC A (test code = 38 ug/mL 50-100 L 7909343507) JOEY (test code = JOEY) Toxic Range: ?Greater than 100 ug/mL Lab Interpretation (test Abnormal code = 73255-2) [facility] (A1C)2020-02-07 16:23:00 Test Item Value Reference Range Interpretation Comments HGB A1C (test code = 5.1 % 4-6 4548-4) JOEY (test code = JOEY) %A1C (NGSP) Interpretation (ADA)4.8-5.6 ? ? Normal or (Non-Diabetic Range)5.7-6.4 ? ? Increased Risk (Pre-Diabetic)>6.5 ?Diabetes Indicated Lab Interpretation Normal (test code = 02172-2) [facility]A1C)2020-02-07 16:23:00 Test Item Value Reference Range Interpretation Comments HGB A1C (test code = 5.1 % 4-6 4548-4) JOEY (test code = JOEY) %A1C (NGSP) Interpretation (ADA)4.8-5.6 ? ? Normal or (Non-Diabetic Range)5.7-6.4 ? ? Increased Risk (Pre-Diabetic)>6.5 ?Diabetes Indicated Lab Interpretation Normal (test code = 32465-7) [facility] (A1C)2020-02-07 16:23:00 Test Item Value Reference Range Interpretation Comments HGB A1C (test code = 5.1 % 4-6 4548-4) JOEY (test code = JOEY) %A1C (NGSP) Interpretation (ADA)4.8-5.6 ? ? Normal or (Non-Diabetic Range)5.7-6.4 ? ? Increased Risk (Pre-Diabetic)>6.5 ?Diabetes Indicated Lab Interpretation Normal (test code = 37495-4) [facility] (A1C)2020-02-07 16:23:00 Test Item Value Reference Range Interpretation Comments HGB A1C (test code = 5.1 % 4-6 4548-4) JOEY (test code = JOEY) %A1C (NGSP) Interpretation (ADA)4.8-5.6 ? ? Normal or (Non-Diabetic Range)5.7-6.4 ? ? Increased Risk (Pre-Diabetic)>6.5 ?Diabetes Indicated Lab Interpretation Normal (test code = 29260-7) [facility] (A1C)2020-02-07 16:23:00 Test Item Value Reference Range Interpretation Comments HGB A1C (test code = 5.1 % 4-6 4548-4) JOEY (test code = JOEY) %A1C (NGSP) Interpretation (ADA)4.8-5.6 ? ? Normal or (Non-Diabetic Range)5.7-6.4 ? ? Increased Risk (Pre-Diabetic)>6.5 ?Diabetes Indicated Lab Interpretation Normal (test code = 75660-1) [facility]A1C)2020-02-07 16:23:00 Test Item Value Reference Range Interpretation Comments HGB A1C (test code = 5.1 % 4-6 4548-4) JOEY (test code = JOEY) %A1C (NGSP) Interpretation (ADA)4.8-5.6 ? ? Normal or (Non-Diabetic Range)5.7-6.4 ? ? Increased Risk (Pre-Diabetic)>6.5 ?Diabetes Indicated Lab Interpretation Normal (test code = 65665-7) [facility]A1C)2020-02-07 16:23:00 Test Item Value Reference Range Interpretation Comments HGB A1C (test code = 5.1 % 4-6 4548-4) JOEY (test code = JOEY) %A1C (NGSP) Interpretation (ADA)4.8-5.6 ? ? Normal or (Non-Diabetic Range)5.7-6.4 ? ? Increased Risk (Pre-Diabetic)>6.5 ?Diabetes Indicated Lab Interpretation Normal (test code = 12025-8) [facility]A1C)2020-02-07 16:23:00 Test Item Value Reference Range Interpretation Comments HGB A1C (test code = 5.1 % 4-6 4548-4) JOEY (test code = JOEY) %A1C (NGSP) Interpretation (ADA)4.8-5.6 ? ? Normal or (Non-Diabetic Range)5.7-6.4 ? ? Increased Risk (Pre-Diabetic)>6.5 ?Diabetes Indicated Lab Interpretation Normal (test code = 82358-2) [facility]A1C)2020-02-07 16:23:00 Test Item Value Reference Range Interpretation Comments HGB A1C (test code = 5.1 % 4-6 4548-4) JOEY (test code = JOEY) %A1C (NGSP) Interpretation (ADA)4.8-5.6 ? ? Normal or (Non-Diabetic Range)5.7-6.4 ? ? Increased Risk (Pre-Diabetic)>6.5 ?Diabetes Indicated Lab Interpretation Normal (test code = 44757-4) [facility] (A1C)2020-02-07 16:23:00 Test Item Value Reference Range Interpretation Comments HGB A1C (test code = 5.1 % 4-6 4548-4) JOEY (test code = JOEY) %A1C (NGSP) Interpretation (ADA)4.8-5.6 ? ? Normal or (Non-Diabetic Range)5.7-6.4 ? ? Increased Risk (Pre-Diabetic)>6.5 ?Diabetes Indicated Lab Interpretation Normal (test code = 83588-0) [facility]A1C)2020-02-07 16:23:00 Test Item Value Reference Range Interpretation Comments HGB A1C (test code = 5.1 % 4-6 4548-4) JOEY (test code = JOEY) %A1C (NGSP) Interpretation (ADA)4.8-5.6 ? ? Normal or (Non-Diabetic Range)5.7-6.4 ? ? Increased Risk (Pre-Diabetic)>6.5 ?Diabetes Indicated Lab Interpretation Normal (test code = 27511-7) [facility] (A1C)2020-02-07 16:23:00 Test Item Value Reference Range Interpretation Comments HGB A1C (test code = 5.1 % 4-6 4548-4) JOEY (test code = JOEY) %A1C (NGSP) Interpretation (ADA)4.8-5.6 ? ? Normal or (Non-Diabetic Range)5.7-6.4 ? ? Increased Risk (Pre-Diabetic)>6.5 ?Diabetes Indicated Lab Interpretation Normal (test code = 72343-4) [facility]A1C)2020-02-07 16:23:00 Test Item Value Reference Range Interpretation Comments HGB A1C (test code = 5.1 % 4-6 4548-4) JOEY (test code = JOEY) %A1C (NGSP) Interpretation (ADA)4.8-5.6 ? ? Normal or (Non-Diabetic Range)5.7-6.4 ? ? Increased Risk (Pre-Diabetic)>6.5 ?Diabetes Indicated Lab Interpretation Normal (test code = 21071-0) [facility]A1C)2020-02-07 16:23:00 Test Item Value Reference Range Interpretation Comments HGB A1C (test code = 5.1 % 4-6 4548-4) JOEY (test code = JOEY) %A1C (NGSP) Interpretation (ADA)4.8-5.6 ? ? Normal or (Non-Diabetic Range)5.7-6.4 ? ? Increased Risk (Pre-Diabetic)>6.5 ?Diabetes Indicated Lab Interpretation Normal (test code = 43261-8) [facility]A1C)2020-02-07 16:23:00 Test Item Value Reference Range Interpretation Comments HGB A1C (test code = 5.1 % 4-6 4548-4) JOEY (test code = JOEY) %A1C (NGSP) Interpretation (ADA)4.8-5.6 ? ? Normal or (Non-Diabetic Range)5.7-6.4 ? ? Increased Risk (Pre-Diabetic)>6.5 ?Diabetes Indicated Lab Interpretation Normal (test code = 84140-1) [facility] WITH [id number] 15:41:00 Test Item Value Reference Range Interpretation Comments WBC (test code = See_Comment [Automated 2490-2) message] The sy stem which generated this [...] RDW-SD (test code = 51.1 fL 38.5-51.6 70445-0) RDW-CV (test code = 13.9 % 12.1-15.4 788-0) PLT (test code = See_Comment [Automated 777-3) message] The sy stem which generated this result transmitted reference range : 150 - 328 10*3/ ?L. The reference r sarahy was not used to interpret this result as normal/abnormal . MPV (test code = 10.3 fL 9.8-13 86319-7) NRBC/100 WBC (test See_Comment [Automat ed code = 6096956407) message] The system which generated this result transmitted reference range : 0.0 - 10.0 /100 WBCs. The refer ence range was not u sed to interpret th is result as normal/abnormal . NRBC x10^3 (test code <0.01 See_Comment [Auto mated = 3688364716) message] The s ystem which generated this result transmitted reference range : 10*3/?L. The reference range was not used to interpret this result as normal/abnormal . GRAN MAT (NEUT) % 64.3 % (test code = 770-8) IMM GRAN % (test code 0.30 % = 0384083487) LYMPH % (test code = 22.6 % 736-9) MONO % (test code = 8.8 % 5905-5) EOS % (test code = 3.0 % 713-8) BASO % (test code = 1.0 % 706-2) GRAN MAT x10^3(ANC) 4.02 10*3/uL 1.99-6.95 (test code = 0456425572) IMM GRAN x10^3 (test <0.03 0-0.06 code = 2636728024) LYMPH x10^3 (test code 1.41 10*3/uL 1.09-3.23 = 731-0) MONO x10^3 (test code 0.55 10*3/uL 0.36-1.02 = 742-7) EOS x10^3 (test code = 0.19 10*3/uL 0.06-0.53 711-2) BASO x10^3 (test code 0.06 10*3/uL 0.01-0.09 = 704-7) Lab Interpretation Abnormal (test code = 64156-9) [facility] WITH [id number] 15:41:00 Test Item Value Reference Range Interpretation Comments WBC (test code = See_Comment [Automated 6490-2) message] The sy stem which generated this result transmitted reference range : 4.20 - 10.70 10*3/?L. The reference range was not used to interpret this result as normal/abnormal . RBC (test code = See_Comment [Automated 339-8) message] The sy stem which generated this [...] RDW-SD (test code = 51.1 fL 38.5-51.6 18701-9) RDW-CV (test code = 13.9 % 12.1-15.4 788-0) PLT (test code = See_Comment [Automated 777-3) message] The sy stem which generated this result transmitted reference range : 150 - 328 10*3/ ?L. The reference r sarahy was not used to interpret this result as normal/abnormal . MPV (test code = 10.3 fL 9.8-13 71993-9) NRBC/100 WBC (test See_Comment [Automat ed code = 8454286462) message] The system which generated this result transmitted reference range : 0.0 - 10.0 /100 WBCs. The refer ence range was not u sed to interpret th is result as normal/abnormal . NRBC x10^3 (test code <0.01 See_Comment [Auto mated = 0994832807) message] The s ystem which generated this result transmitted reference range : 10*3/?L. The reference range was not used to interpret this result as normal/abnormal . GRAN MAT (NEUT) % 64.3 % (test code = 770-8) IMM GRAN % (test code 0.30 % = 8159897292) LYMPH % (test code = 22.6 % 736-9) MONO % (test code = 8.8 % 5905-5) EOS % (test code = 3.0 % 713-8) BASO % (test code = 1.0 % 706-2) GRAN MAT x10^3(ANC) 4.02 10*3/uL 1.99-6.95 (test code = 8183171445) IMM GRAN x10^3 (test <0.03 0-0.06 code = 6258332962) LYMPH x10^3 (test code 1.41 10*3/uL 1.09-3.23 = 731-0) MONO x10^3 (test code 0.55 10*3/uL 0.36-1.02 = 742-7) EOS x10^3 (test code = 0.19 10*3/uL 0.06-0.53 711-2) BASO x10^3 (test code 0.06 10*3/uL 0.01-0.09 = 704-7) Lab Interpretation Abnormal (test code = 35979-5) [facility] WITH [id number] 15:41:00 Test Item Value Reference Range Interpretation [...] RDW-SD (test code = 51.1 fL 38.5-51.6 13330-7) RDW-CV (test code = 13.9 % 12.1-15.4 788-0) PLT (test code = See_Comment [Automated 777-3) message] The sy stem which generated this result transmitted reference range : 150 - 328 10*3/ ?L. The reference r sarahy was not used to interpret this result as normal/abnormal . MPV (test code = 10.3 fL 9.8-13 43611-4) NRBC/100 WBC (test See_Comment [Automat ed code = 6932373142) message] The system which generated this result transmitted reference range : 0.0 - 10.0 /100 WBCs. The refer ence range was not u sed to interpret th is result as normal/abnormal . NRBC x10^3 (test code <0.01 See_Comment [Auto mated = 8220672316) message] The s ystem which generated this result transmitted reference range : 10*3/?L. The reference range was not used to interpret this result as normal/abnormal . GRAN MAT (NEUT) % 64.3 % (test code = 770-8) IMM GRAN % (test code 0.30 % = 2731539753) LYMPH % (test code = 22.6 % 736-9) MONO % (test code = 8.8 % 5905-5) EOS % (test code = 3.0 % 713-8) BASO % (test code = 1.0 % 706-2) GRAN MAT x10^3(ANC) 4.02 10*3/uL 1.99-6.95 (test code = 0634814796) IMM GRAN x10^3 (test <0.03 0-0.06 code = 0656967461) LYMPH x10^3 (test code 1.41 10*3/uL 1.09-3.23 = 731-0) MONO x10^3 (test code 0.55 10*3/uL 0.36-1.02 = 742-7) EOS x10^3 (test code = 0.19 10*3/uL 0.06-0.53 711-2) BASO x10^3 (test code 0.06 10*3/uL 0.01-0.09 = 704-7) Lab Interpretation Abnormal (test code = 44720-0) [facility] WITH [id number] 15:41:00 Test Item Value Reference Range Interpretation Comments WBC (test code = See_Comment [Automated 0290-2) message] The sy stem which generated this result transmitted reference range : 4.20 - 10.70 10*3/?L. The reference range was not used to interpret this result as normal/abnormal . RBC (test code = See_Comment [Automated 669-8) message] The sy stem which generated this [...] RDW-SD (test code = 51.1 fL 38.5-51.6 56572-1) RDW-CV (test code = 13.9 % 12.1-15.4 788-0) PLT (test code = See_Comment [Automated 777-3) message] The sy stem which generated this result transmitted reference range : 150 - 328 10*3/ ?L. The reference r sarahy was not used to interpret this result as normal/abnormal . MPV (test code = 10.3 fL 9.8-13 81251-8) NRBC/100 WBC (test See_Comment [Automat ed code = 8519221040) message] The system which generated this result transmitted reference range : 0.0 - 10.0 /100 WBCs. The refer ence range was not u sed to interpret th is result as normal/abnormal . NRBC x10^3 (test code <0.01 See_Comment [Auto mated = 9732282582) message] The s ystem which generated this result transmitted reference range : 10*3/?L. The reference range was not used to interpret this result as normal/abnormal . GRAN MAT (NEUT) % 64.3 % (test code = 770-8) IMM GRAN % (test code 0.30 % = 7559795751) LYMPH % (test code = 22.6 % 736-9) MONO % (test code = 8.8 % 5905-5) EOS % (test code = 3.0 % 713-8) BASO % (test code = 1.0 % 706-2) GRAN MAT x10^3(ANC) 4.02 10*3/uL 1.99-6.95 (test code = 7717421171) IMM GRAN x10^3 (test <0.03 0-0.06 code = 9100222365) LYMPH x10^3 (test code 1.41 10*3/uL 1.09-3.23 = 731-0) MONO x10^3 (test code 0.55 10*3/uL 0.36-1.02 = 742-7) EOS x10^3 (test code = 0.19 10*3/uL 0.06-0.53 711-2) BASO x10^3 (test code 0.06 10*3/uL 0.01-0.09 = 704-7) Lab Interpretation Abnormal (test code = 99417-9) [facility] WITH [id number] 15:41:00 Test Item Value Reference Range Interpretation Comments WBC (test code = See_Comment [Automated 1539-2) message] The sy stem which generated this result transmitted reference range : 4.20 - 10.70 10*3/?L. The reference range was not used to interpret this result as normal/abnormal . RBC (test code = See_Comment [Automated 489-8) message] The sy stem which generated this [...] RDW-SD (test code = 51.1 fL 38.5-51.6 11247-9) RDW-CV (test code = 13.9 % 12.1-15.4 788-0) PLT (test code = See_Comment [Automated 777-3) message] The sy stem which generated this result transmitted reference range : 150 - 328 10*3/ ?L. The reference r sarahy was not used to interpret this result as normal/abnormal . MPV (test code = 10.3 fL 9.8-13 70767-6) NRBC/100 WBC (test See_Comment [Automat ed code = 4875763054) message] The system which generated this result transmitted reference range : 0.0 - 10.0 /100 WBCs. The refer ence range was not u sed to interpret th is result as normal/abnormal . NRBC x10^3 (test code <0.01 See_Comment [Auto mated = 4401389769) message] The s ystem which generated this result transmitted reference range : 10*3/?L. The reference range was not used to interpret this result as normal/abnormal . GRAN MAT (NEUT) % 64.3 % (test code = 770-8) IMM GRAN % (test code 0.30 % = 8136317146) LYMPH % (test code = 22.6 % 736-9) MONO % (test code = 8.8 % 5905-5) EOS % (test code = 3.0 % 713-8) BASO % (test code = 1.0 % 706-2) GRAN MAT x10^3(ANC) 4.02 10*3/uL 1.99-6.95 (test code = 1521362738) IMM GRAN x10^3 (test <0.03 0-0.06 code = [id number]) LYMPH x10^3 (test code 1.41 10*3/uL 1.09-3.23 = 731-0) MONO x10^3 (test code 0.55 10*3/uL 0.36-1.02 = 742-7) EOS x10^3 (test code = 0.19 10*3/uL 0.06-0.53 711-2) BASO x10^3 (test code 0.06 10*3/uL 0.01-0.09 = 704-7) Lab Interpretation Abnormal (test code = 50163-6) [facility] WITH [id number] 15:41:00 Test Item Value Reference Range Interpretation [...] RDW-SD (test code = 51.1 fL 38.5-51.6 81136-1) RDW-CV (test code = 13.9 % 12.1-15.4 788-0) PLT (test code = See_Comment [Automated 777-3) message] The sy stem which generated this result transmitted reference range : 150 - 328 10*3/ ?L. The reference r sarahy was not used to interpret this result as normal/abnormal . MPV (test code = 10.3 fL 9.8-13 34881-5) NRBC/100 WBC (test See_Comment [Automat ed code = [id number]) message] The system which generated this result transmitted reference range : 0.0 - 10.0 /100 WBCs. The refer ence range was not u sed to interpret th is result as normal/abnormal . NRBC x10^3 (test code <0.01 See_Comment [Auto mated = [id number]) message] The s ystem which generated this result transmitted reference range : 10*3/?L. The reference range was not used to interpret this result as normal/abnormal . GRAN MAT (NEUT) % 64.3 % (test code = 770-8) IMM GRAN % (test code 0.30 % = [id number]) LYMPH % (test code = 22.6 % 736-9) MONO % (test code = 8.8 % 5905-5) EOS % (test code = 3.0 % 713-8) BASO % (test code = 1.0 % 706-2) GRAN MAT x10^3(ANC) 4.02 10*3/uL 1.99-6.95 (test code = [id number]) IMM GRAN x10^3 (test <0.03 0-0.06 code = 7504447903) LYMPH x10^3 (test code 1.41 10*3/uL 1.09-3.23 = 731-0) MONO x10^3 (test code 0.55 10*3/uL 0.36-1.02 = 742-7) EOS x10^3 (test code = 0.19 10*3/uL 0.06-0.53 711-2) BASO x10^3 (test code 0.06 10*3/uL 0.01-0.09 = 704-7) Lab Interpretation Abnormal (test code = 13113-5) [facility] WITH [id number] 15:41:00 Test Item Value Reference Range Interpretation [...] RDW-SD (test code = 51.1 fL 38.5-51.6 75056-2) RDW-CV (test code = 13.9 % 12.1-15.4 788-0) PLT (test code = See_Comment [Automated 777-3) message] The sy stem which generated this result transmitted reference range : 150 - 328 10*3/ ?L. The reference r sarayh was not used to interpret this result as normal/abnormal . MPV (test code = 10.3 fL 9.8-13 06875-6) NRBC/100 WBC (test See_Comment [Automat ed code = 3492809952) message] The system which generated this result transmitted reference range : 0.0 - 10.0 /100 WBCs. The refer ence range was not u sed to interpret th is result as normal/abnormal . NRBC x10^3 (test code <0.01 See_Comment [Auto mated = 8247485471) message] The s ystem which generated this result transmitted reference range : 10*3/?L. The reference range was not used to interpret this result as normal/abnormal . GRAN MAT (NEUT) % 64.3 % (test code = 770-8) IMM GRAN % (test code 0.30 % = 2868160942) LYMPH % (test code = 22.6 % 736-9) MONO % (test code = 8.8 % 5905-5) EOS % (test code = 3.0 % 713-8) BASO % (test code = 1.0 % 706-2) GRAN MAT x10^3(ANC) 4.02 10*3/uL 1.99-6.95 (test code = 9622941600) IMM GRAN x10^3 (test <0.03 0-0.06 code = 9717720859) LYMPH x10^3 (test code 1.41 10*3/uL 1.09-3.23 = 731-0) MONO x10^3 (test code 0.55 10*3/uL 0.36-1.02 = 742-7) EOS x10^3 (test code = 0.19 10*3/uL 0.06-0.53 711-2) BASO x10^3 (test code 0.06 10*3/uL 0.01-0.09 = 704-7) Lab Interpretation Abnormal (test code = 52178-6) [facility] WITH [id number] 15:41:00 Test Item Value Reference Range Interpretation [...] RDW-SD (test code = 51.1 fL 38.5-51.6 15903-7) RDW-CV (test code = 13.9 % 12.1-15.4 788-0) PLT (test code = See_Comment [Automated 777-3) message] The sy stem which generated this result transmitted reference range : 150 - 328 10*3/ ?L. The reference r sarahy was not used to interpret this result as normal/abnormal . MPV (test code = 10.3 fL 9.8-13 86069-5) NRBC/100 WBC (test See_Comment [Automat ed code = 0144115809) message] The system which generated this result transmitted reference range : 0.0 - 10.0 /100 WBCs. The refer ence range was not u sed to interpret th is result as normal/abnormal . NRBC x10^3 (test code <0.01 See_Comment [Auto mated = 7796233143) message] The s ystem which generated this result transmitted reference range : 10*3/?L. The reference range was not used to interpret this result as normal/abnormal . GRAN MAT (NEUT) % 64.3 % (test code = 774-8) IMM GRAN % (test code 0.30 % = 2970190507) LYMPH % (test code = 22.6 % 736-9) MONO % (test code = 8.8 % 5905-5) EOS % (test code = 3.0 % 713-8) BASO % (test code = 1.0 % 706-2) GRAN MAT x10^3(ANC) 4.02 10*3/uL 1.99-6.95 (test code = 9354562873) IMM GRAN x10^3 (test <0.03 0-0.06 code = 8941825034) LYMPH x10^3 (test code 1.41 10*3/uL 1.09-3.23 = 731-0) MONO x10^3 (test code 0.55 10*3/uL 0.36-1.02 = 742-7) EOS x10^3 (test code = 0.19 10*3/uL 0.06-0.53 711-2) BASO x10^3 (test code 0.06 10*3/uL 0.01-0.09 = 704-7) Lab Interpretation Abnormal (test code = 76680-3) [facility] WITH [id number] 15:41:00 Test Item Value Reference Range Interpretation Comments WBC (test code = See_Comment [Automated 6890-2) message] The sy stem which generated this result transmitted reference range : 4.20 - 10.70 10*3/?L. The reference range was not used to interpret this result as normal/abnormal . RBC (test code = See_Comment [Automated 519-8) message] The sy stem which generated this [...] RDW-SD (test code = 51.1 fL 38.5-51.6 17384-2) RDW-CV (test code = 13.9 % 12.1-15.4 788-0) PLT (test code = See_Comment [Automated 777-3) message] The sy stem which generated this result transmitted reference range : 150 - 328 10*3/ ?L. The reference r sarahy was not used to interpret this result as normal/abnormal . MPV (test code = 10.3 fL 9.8-13 93046-6) NRBC/100 WBC (test See_Comment [Automat ed code = 3130331072) message] The system which generated this result transmitted reference range : 0.0 - 10.0 /100 WBCs. The refer ence range was not u sed to interpret th is result as normal/abnormal . NRBC x10^3 (test code <0.01 See_Comment [Auto mated = 2418183145) message] The s ystem which generated this result transmitted reference range : 10*3/?L. The reference range was not used to interpret this result as normal/abnormal . GRAN MAT (NEUT) % 64.3 % (test code = 770-8) IMM GRAN % (test code 0.30 % = 3770408704) LYMPH % (test code = 22.6 % 736-9) MONO % (test code = 8.8 % 5905-5) EOS % (test code = 3.0 % 713-8) BASO % (test code = 1.0 % 706-2) GRAN MAT x10^3(ANC) 4.02 10*3/uL 1.99-6.95 (test code = 4838704868) IMM GRAN x10^3 (test <0.03 0-0.06 code = 3155904274) LYMPH x10^3 (test code 1.41 10*3/uL 1.09-3.23 = 731-0) MONO x10^3 (test code 0.55 10*3/uL 0.36-1.02 = 742-7) EOS x10^3 (test code = 0.19 10*3/uL 0.06-0.53 711-2) BASO x10^3 (test code 0.06 10*3/uL 0.01-0.09 = 704-7) Lab Interpretation Abnormal (test code = 96499-9) [facility] WITH [id number] 15:41:00 Test Item Value Reference Range Interpretation [...] RDW-SD (test code = 51.1 fL 38.5-51.6 82744-0) RDW-CV (test code = 13.9 % 12.1-15.4 788-0) PLT (test code = See_Comment [Automated 777-3) message] The sy stem which generated this result transmitted reference range : 150 - 328 10*3/ ?L. The reference r sarahy was not used to interpret this result as normal/abnormal . MPV (test code = 10.3 fL 9.8-13 87570-3) NRBC/100 WBC (test See_Comment [Automat ed code = 6539112134) message] The system which generated this result transmitted reference range : 0.0 - 10.0 /100 WBCs. The refer ence range was not u sed to interpret th is result as normal/abnormal . NRBC x10^3 (test code <0.01 See_Comment [Auto mated = 4729287200) message] The s ystem which generated this result transmitted reference range : 10*3/?L. The reference range was not used to interpret this result as normal/abnormal . GRAN MAT (NEUT) % 64.3 % (test code = 770-8) IMM GRAN % (test code 0.30 % = 2062585309) LYMPH % (test code = 22.6 % 736-9) MONO % (test code = 8.8 % 5905-5) EOS % (test code = 3.0 % 713-8) BASO % (test code = 1.0 % 706-2) GRAN MAT x10^3(ANC) 4.02 10*3/uL 1.99-6.95 (test code = 5125180590) IMM GRAN x10^3 (test <0.03 0-0.06 code = 1563423299) LYMPH x10^3 (test code 1.41 10*3/uL 1.09-3.23 = 731-0) MONO x10^3 (test code 0.55 10*3/uL 0.36-1.02 = 742-7) EOS x10^3 (test code = 0.19 10*3/uL 0.06-0.53 711-2) BASO x10^3 (test code 0.06 10*3/uL 0.01-0.09 = 704-7) Lab Interpretation Abnormal (test code = 48510-1) [facility] WITH [id number] 15:41:00 Test Item Value Reference Range Interpretation Comments WBC (test code = See_Comment [Automated 0190-2) message] The sy stem which generated this result transmitted reference range : 4.20 - 10.70 10*3/?L. The reference range was not used to interpret this result as normal/abnormal . RBC (test code = See_Comment [Automated 049-8) message] The sy stem which generated this [...] RDW-SD (test code = 51.1 fL 38.5-51.6 95612-3) RDW-CV (test code = 13.9 % 12.1-15.4 788-0) PLT (test code = See_Comment [Automated 777-3) message] The sy stem which generated this result transmitted reference range : 150 - 328 10*3/ ?L. The reference r sarahy was not used to interpret this result as normal/abnormal . MPV (test code = 10.3 fL 9.8-13 16351-5) NRBC/100 WBC (test See_Comment [Automat ed code = 2210739735) message] The system which generated this result transmitted reference range : 0.0 - 10.0 /100 WBCs. The refer ence range was not u sed to interpret th is result as normal/abnormal . NRBC x10^3 (test code <0.01 See_Comment [Auto mated = 3527652422) message] The s ystem which generated this result transmitted reference range : 10*3/?L. The reference range was not used to interpret this result as normal/abnormal . GRAN MAT (NEUT) % 64.3 % (test code = 770-8) IMM GRAN % (test code 0.30 % = 1186693400) LYMPH % (test code = 22.6 % 736-9) MONO % (test code = 8.8 % 5905-5) EOS % (test code = 3.0 % 713-8) BASO % (test code = 1.0 % 706-2) GRAN MAT x10^3(ANC) 4.02 10*3/uL 1.99-6.95 (test code = 4600423218) IMM GRAN x10^3 (test <0.03 0-0.06 code = 3018443966) LYMPH x10^3 (test code 1.41 10*3/uL 1.09-3.23 = 731-0) MONO x10^3 (test code 0.55 10*3/uL 0.36-1.02 = 742-7) EOS x10^3 (test code = 0.19 10*3/uL 0.06-0.53 711-2) BASO x10^3 (test code 0.06 10*3/uL 0.01-0.09 = 704-7) Lab Interpretation Abnormal (test code = 71710-1) [facility] WITH [id number] 15:41:00 Test Item Value Reference Range Interpretation [...] RDW-SD (test code = 51.1 fL 38.5-51.6 83620-0) RDW-CV (test code = 13.9 % 12.1-15.4 788-0) PLT (test code = See_Comment [Automated 777-3) message] The sy stem which generated this result transmitted reference range : 150 - 328 10*3/ ?L. The reference r sarahy was not used to interpret this result as normal/abnormal . MPV (test code = 10.3 fL 9.8-13 88950-3) NRBC/100 WBC (test See_Comment [Automat ed code = 0161955228) message] The system which generated this result transmitted reference range : 0.0 - 10.0 /100 WBCs. The refer ence range was not u sed to interpret th is result as normal/abnormal . NRBC x10^3 (test code <0.01 See_Comment [Auto mated = 1845139951) message] The s ystem which generated this result transmitted reference range : 10*3/?L. The reference range was not used to interpret this result as normal/abnormal . GRAN MAT (NEUT) % 64.3 % (test code = 770-8) IMM GRAN % (test code 0.30 % = 1640930395) LYMPH % (test code = 22.6 % 736-9) MONO % (test code = 8.8 % 5905-5) EOS % (test code = 3.0 % 713-8) BASO % (test code = 1.0 % 706-2) GRAN MAT x10^3(ANC) 4.02 10*3/uL 1.99-6.95 (test code = 9291355347) IMM GRAN x10^3 (test <0.03 0-0.06 code = 4118175178) LYMPH x10^3 (test code 1.41 10*3/uL 1.09-3.23 = 731-0) MONO x10^3 (test code 0.55 10*3/uL 0.36-1.02 = 742-7) EOS x10^3 (test code = 0.19 10*3/uL 0.06-0.53 711-2) BASO x10^3 (test code 0.06 10*3/uL 0.01-0.09 = 704-7) Lab Interpretation Abnormal (test code = 00151-3) [facility] WITH [id number] 15:41:00 Test Item Value Reference Range Interpretation Comments WBC (test code = See_Comment [Automated 8890-2) message] The sy stem which generated this result transmitted reference range : 4.20 - 10.70 10*3/?L. The reference range was not used to interpret this result as normal/abnormal . RBC (test code = See_Comment [Automated 569-8) message] The sy stem which generated this [...] RDW-SD (test code = 51.1 fL 38.5-51.6 87829-0) RDW-CV (test code = 13.9 % 12.1-15.4 788-0) PLT (test code = See_Comment [Automated 777-3) message] The sy stem which generated this result transmitted reference range : 150 - 328 10*3/ ?L. The reference r sarahy was not used to interpret this result as normal/abnormal . MPV (test code = 10.3 fL 9.8-13 36231-6) NRBC/100 WBC (test See_Comment [Automat ed code = 0276369043) message] The system which generated this result transmitted reference range : 0.0 - 10.0 /100 WBCs. The refer ence range was not u sed to interpret th is result as normal/abnormal . NRBC x10^3 (test code <0.01 See_Comment [Auto mated = 1765477803) message] The s ystem which generated this result transmitted reference range : 10*3/?L. The reference range was not used to interpret this result as normal/abnormal . GRAN MAT (NEUT) % 64.3 % (test code = 770-8) IMM GRAN % (test code 0.30 % = 0248154858) LYMPH % (test code = 22.6 % 736-9) MONO % (test code = 8.8 % 5905-5) EOS % (test code = 3.0 % 713-8) BASO % (test code = 1.0 % 706-2) GRAN MAT x10^3(ANC) 4.02 10*3/uL 1.99-6.95 (test code = 4727673827) IMM GRAN x10^3 (test <0.03 0-0.06 code = 3154702090) LYMPH x10^3 (test code 1.41 10*3/uL 1.09-3.23 = 731-0) MONO x10^3 (test code 0.55 10*3/uL 0.36-1.02 = 742-7) EOS x10^3 (test code = 0.19 10*3/uL 0.06-0.53 711-2) BASO x10^3 (test code 0.06 10*3/uL 0.01-0.09 = 704-7) Lab Interpretation Abnormal (test code = 34819-8) [facility] WITH [id number] 15:41:00 Test Item Value Reference Range Interpretation Comments WBC (test code = See_Comment [Automated 5182-2) message] The sy stem which generated this result transmitted reference range : 4.20 - 10.70 10*3/?L. The reference range was not used to interpret this result as normal/abnormal . RBC (test code = See_Comment [Automated 559-8) message] The sy stem which generated this [...] RDW-SD (test code = 51.1 fL 38.5-51.6 72059-3) RDW-CV (test code = 13.9 % 12.1-15.4 788-0) PLT (test code = See_Comment [Automated 477-3) message] The sy stem which generated this result transmitted reference range : 150 - 328 10*3/ ?L. The reference r sarahy was not used to interpret this result as normal/abnormal . MPV (test code = 10.3 fL 9.8-13 19499-3) NRBC/100 WBC (test See_Comment [Automat ed code = 4122426709) message] The system which generated this result transmitted reference range : 0.0 - 10.0 /100 WBCs. The refer ence range was not u sed to interpret th is result as normal/abnormal . NRBC x10^3 (test code <0.01 See_Comment [Auto mated = 5005153524) message] The s ystem which generated this result transmitted reference range : 10*3/?L. The reference range was not used to interpret this result as normal/abnormal . GRAN MAT (NEUT) % 64.3 % (test code = 770-8) IMM GRAN % (test code 0.30 % = 4633114907) LYMPH % (test code = 22.6 % 736-9) MONO % (test code = 8.8 % 5905-5) EOS % (test code = 3.0 % 713-8) BASO % (test code = 1.0 % 706-2) GRAN MAT x10^3(ANC) 4.02 10*3/uL 1.99-6.95 (test code = 7313083444) IMM GRAN x10^3 (test <0.03 0-0.06 code = 4454116646) LYMPH x10^3 (test code 1.41 10*3/uL 1.09-3.23 = 731-0) MONO x10^3 (test code 0.55 10*3/uL 0.36-1.02 = 742-7) EOS x10^3 (test code = 0.19 10*3/uL 0.06-0.53 711-2) BASO x10^3 (test code 0.06 10*3/uL 0.01-0.09 = 704-7) Lab Interpretation Abnormal (test code = 40915-8) [facility] WITH [id number] 15:41:00 Test Item Value Reference Range Interpretation [...] RDW-SD (test code = 51.1 fL 38.5-51.6 75490-0) RDW-CV (test code = 13.9 % 12.1-15.4 788-0) PLT (test code = See_Comment [Automated 777-3) message] The sy stem which generated this result transmitted reference range : 150 - 328 10*3/ ?L. The reference r sarahy was not used to interpret this result as normal/abnormal . MPV (test code = 10.3 fL 9.8-13 05016-3) NRBC/100 WBC (test See_Comment [Automat ed code = 3886118891) message] The system which generated this result transmitted reference range : 0.0 - 10.0 /100 WBCs. The refer ence range was not u sed to interpret th is result as normal/abnormal . NRBC x10^3 (test code <0.01 See_Comment [Auto mated = 1119528765) message] The s ystem which generated this result transmitted reference range : 10*3/?L. The reference range was not used to interpret this result as normal/abnormal . GRAN MAT (NEUT) % 64.3 % (test code = 770-8) IMM GRAN % (test code 0.30 % = 5227480388) LYMPH % (test code = 22.6 % 736-9) MONO % (test code = 8.8 % 5905-5) EOS % (test code = 3.0 % 713-8) BASO % (test code = 1.0 % 706-2) GRAN MAT x10^3(ANC) 4.02 10*3/uL 1.99-6.95 (test code = 0314201786) IMM GRAN x10^3 (test <0.03 0-0.06 code = 2368800160) LYMPH x10^3 (test code 1.41 10*3/uL 1.09-3.23 = 731-0) MONO x10^3 (test code 0.55 10*3/uL 0.36-1.02 = 742-7) EOS x10^3 (test code = 0.19 10*3/uL 0.06-0.53 711-2) BASO x10^3 (test code 0.06 10*3/uL 0.01-0.09 = 704-7) Lab Interpretation Abnormal (test code = 69215-5) [id number]TOTAL CHOLESTEROL, TRIGLYCERIDES, HDL)2019-02-20 17:10:00 Test Item Value Reference Range Interpretation Comments CHOL (test code = 140 mg/dL 120-200 1664661027) HDL (test code = 46 mg/dL >40 0911091665) HDLC RATIO (test code = See_Comment [Au tomated message] 0972511258) The system [email or web address] generated this result transmit claribel reference range : <=5.0. The refe rence range was not u sed to interpret th is result as normal/abnormal . TRIG (test code = 52 mg/dL 30-170 5430754443) LDL CHOL (test code = 84 mg/dL See_Comment [Auto mated message] 45388-0) The system [email or web address] generated this result transmit claribel reference range : <=160. The refe rence range was not u sed to interpret th is result as normal/abnormal . VLDL (test code = 10 mg/dL 5-60 9335611980) Lab Interpretation (test Normal code = 55061-7) [facility][id number])(TOTAL CHOLESTEROL, TRIGLYCERIDES, HDL)2019-02-20 17:10:00 Test Item Value Reference Range Interpretation Comments CHOL (test code = 140 mg/dL 120-200 3433077725) HDL (test code = 46 mg/dL >40 4131609887) HDLC RATIO (test code = See_Comment [Au tomated message] 8901773024) The system [email or web address] generated this result transmit claribel reference range : <=5.0. The refe rence range was not u sed to interpret th is result as normal/abnormal . TRIG (test code = 52 mg/dL 30-170 1178826259) LDL CHOL (test code = 84 mg/dL See_Comment [Auto mated message] 65581-5) The system [email or web address] generated this result transmit claribel reference range : <=160. The refe rence range was not u sed to interpret th is result as normal/abnormal . VLDL (test code = 10 mg/dL 5-60 3716514435) Lab Interpretation (test Normal code = 90008-0) [facility]08[facility]TOTAL CHOLESTEROL, TRIGLYCERIDES, HDL)2019-02-20 17:10:00 Test Item Value Reference Range Interpretation Comments CHOL (test code = 140 mg/dL 120-200 1350260306) HDL (test code = 46 mg/dL >40 3145406212) HDLC RATIO (test code = See_Comment [Au tomated message] 2784766514) The system [email or web address] generated this result transmit claribel reference range : <=5.0. The refe rence range was not u sed to interpret th is result as normal/abnormal . TRIG (test code = 52 mg/dL 30-170 7943298437) LDL CHOL (test code = 84 mg/dL See_Comment [Auto mated message] 29480-0) The system [email or web address] generated this result transmit claribel reference range : <=160. The refe rence range was not u sed to interpret th is result as normal/abnormal . VLDL (test code = 10 mg/dL 5-60 1982212688) Lab Interpretation (test Normal code = 47618-3) [facility]TOTAL CHOLESTEROL, TRIGLYCERIDES, HDL)2019-02-20 17:10:00 Test Item Value Reference Range Interpretation Comments CHOL (test code = 140 mg/dL 120-200 3697157725) HDL (test code = 46 mg/dL >40 4471964308) HDLC RATIO (test code = See_Comment [Au tomated message] 6835378560) The system [email or web address] generated this result transmit claribel reference range : <=5.0. The refe rence range was not u sed to interpret th is result as normal/abnormal . TRIG (test code = 52 mg/dL 30-170 4603018163) LDL CHOL (test code = 84 mg/dL See_Comment [Auto mated message] 86595-7) The system [email or web address] generated this result transmit claribel reference range : <=160. The refe rence range was not u sed to interpret th is result as normal/abnormal . VLDL (test code = 10 mg/dL 5-60 5957190670) Lab Interpretation (test Normal code = 55232-9) [id number])(TOTAL CHOLESTEROL, TRIGLYCERIDES, HDL)2019-02-20 17:10:00 Test Item Value Reference Range Interpretation Comments CHOL (test code = 140 mg/dL 120-200 0156917989) HDL (test code = 46 mg/dL >40 9689481540) HDLC RATIO (test code = See_Comment [Au tomated message] 7703912542) The system [email or web address] generated this result transmit claribel reference range : <=5.0. The refe rence range was not u sed to interpret th is result as normal/abnormal . TRIG (test code = 52 mg/dL 30-170 6306020496) LDL CHOL (test code = 84 mg/dL See_Comment [Auto mated message] 54735-6) The system [email or web address] generated this result transmit claribel reference range : <=160. The refe rence range was not u sed to interpret th is result as normal/abnormal . VLDL (test code = 10 mg/dL 5-60 5614400122) Lab Interpretation (test Normal code = 73509-6) [facility] (A1C)2019-02-20 16:35:00 Test Item Value Reference [...] Indicated Lab Interpretation Normal (test code = 77850-1) [facility] (A1C)2019-02-20 16:35:00 Test Item Value Reference [...] Indicated Lab Interpretation Normal (test code = 31815-7) [facility] (A1C)2019-02-20 16:35:00 Test Item Value Reference [...] Indicated Lab Interpretation Normal (test code = 47257-4) [facility]A1C)2019-02-20 16:35:00 Test Item Value Reference [...] Indicated Lab Interpretation Normal (test code = 98198-6) [facility] (A1C)2019-02-20 16:35:00 Test Item Value Reference [...] Indicated Lab Interpretation Normal (test code = 50130-9) [facility] [place] [facility]"
--- NOTE | 2021-11-02 13:43 | RAD REPORT ---
EXAM DESCRIPTION: RAD - Hip Right 2 View - 11/02/2021 1:29 pm CLINICAL HISTORY: PAIN COMPARISON: No comparisons FINDINGS: No definite acute fracture. No malalignment. Mild right acetabular degenerative changes. O steopenia. Lucency through the superior inferior pubic ramus may be due to overlapping anatomy. Nondi splaced fractures are consideration. Right SI joint degenerative changes. IMPRESSION: No definite fracture is identified. Lucency at the right pubic rami could represent nond isplaced fractures or overlapping structures. CT could confirm depending on the clinical suspicion.
--- NOTE | 2021-11-02 15:11 | RAD REPORT ---
EXAM DESCRIPTION: CT - Head Brain Wo Cont - 11/02/2021 3:03 pm CLINICAL HISTORY: Head trauma, minor COMPARISON: Head Brain Wo Cont dated 12/09/2020; Head Brain Wo Cont dated 02/03/2020 TECHNIQUE: All CT scans are performed using dose optimization technique as appropriate and may inclu de automated exposure control or mA/KV adjustment according to patient size. FINDINGS: No intracranial hemorrhage, hydrocephalus or extra-axial fluid collection.No areas of brai n edema or evidence of midline shift. Remote moderate right MCA territory infarct. Chronic small vess el ischemic changes The paranasal sinuses and mastoids are clear. The calvarium is intact. IMPRESSION: No acute intracranial abnormality. Remote right MCA territory infarct.
--- NOTE | 2021-11-02 15:15 | RAD REPORT ---
EXAM DESCRIPTION: CT - Pelvis Wo Cont - 11/02/2021 3:04 pm CLINICAL HISTORY: Right hip pain s/p fall COMPARISON: Abdomen Pelvis W Contrast dated 10/07/2021 FINDINGS: Status post ORIF of the left hip. Sclerotic focus in the right iliac bone is probably a [place]. Penile prosthesis. No right hip fracture or dislocation. Remote right inferior pubic ramus fracture. Atherosclerosis. Degenerative changes are present in the lower spine. IMPRESSION: No pelvic or hip fractures identified. Pubic rami deformity on the earlier radiograph co nsistent with a remote, healed right obturator ring fracture.
--- NOTE | 2021-11-02 15:31 | ER ---
Nurse's Notes [facility] Name: Elver Tee Age: 81 yrs Sex: Male : 1940 Arrival Date: 11/02/2021 Time: 12:51 Bed 18 Private MD: Diagnosis: Contusion of right hip;Fall on same level from slipping, tripping and stumbling without subsequent striking against object Presentation: 11/02 12:52 Chief complaint: Patient states: R hip pain after falling from standing. PT was ss entering a restaurant when his walker got stuck in the gravel. PT states, "I did hit my head but it's fine. I didn't lose consciousness.". Care prior to arrival: None. Mechanism of Injury: Fall from standing position. Trauma event details: Injury occurred in the [facility], Injury occurred: in a public building. 12:52 Acuity: [id number] 3 ss 12:52 Method Of Arrival: EMS: [facility] ss 13:00 Coronavirus screen: Client denies travel out of the [place] in the last 14 days. Ebola ss Screen: Patient denies exposure to infectious person. Patient denies travel to an Ebola-affected area in the 21 days before illness onset. Initial Sepsis Screen: Does the patient meet any 2 criteria? No. Patient's initial sepsis screen is negative. Does the patient have a suspected source of infection? No. Patient's initial sepsis screen is negative. Risk Assessment: Do you want to hurt yourself or someone else? Patient reports no desire to harm self or others. Onset of symptoms was November 02, 2021. Triage Assessment: 13:00 General: SEE TRAUMA NOTE. bp Trauma Activation: Not Applicable Physician: ED Physician; Name: ; Notified At: ; Arrived At: Physician: General Surgeon; Name: ; Notified At: ; Arrived At: Physician: Radiology; Name: ; Notified At: ; Arrived At: Physician: Respiratory; Name: ; Notified At: ; Arrived At: Physician: Lab; Name: ; Notified At: ; Arrived At: Historical: - Allergies: 13:01 Bacitracin Zinc; ss 13:01 Neomycin Sulfate; ss 13:01 Polymyxin B Sulfate; ss - PMHx: 13:01 Bipolar disorder; Hypertensive disorder; Paranoid Schizophrenia; ss - Immunization history:: Client reports receiving the 2nd dose of the Covid vaccine. - Social history:: Smoking status: Patient denies any tobacco usage or history of. Screenin:58 Abuse screen: Denies threats or abuse. Denies injuries from another. Tuberculosis ss screening: No symptoms or risk factors identified. 13:00 Nutritional screening: No deficits noted. Fall Risk None identified. bp Primary Survey: 12:58 NO uncontrolled hemorrhage observed. A: The client is awake and alert. The airway is ss patent. Breathing/Chest: Spontaneous respiratory effort, equal unlabored respirations, breath sounds clear bilaterally, regular pattern, symmetrical chest rise and fall. Respiratory effort: spontaneous. Circulation: No external hemorrhage present. Regular and strong central pulse, skin warm/dry/normal color. Disability Pupils are equal, round, reactive to light and accommodation. Client is alert. Assessment: 12:58 General: Appears in no apparent distress. comfortable, Behavior is calm, cooperative. ss Pain: Complains of pain in R hip Pain currently is 4 out of 10 on a pain scale. Quality of pain is described as tender. Neuro: Funk Agitation-Sedation Scale (RASS): 0 - Alert and Calm Level of Consciousness is awake, alert, obeys commands, Oriented to person, place, time, situation. Respiratory: Airway is patent Respiratory effort is even, unlabored, Respiratory pattern is regular, symmetrical. Derm: Skin is pink, warm \\T\\ dry. normal. 13:09 Reassessment: XRAY at bedside. ss 15:47 Reassessment: Patient appears in no apparent distress at this time. Patient and/or jb4 family updated on plan of care and expected duration. Pain level reassessed. Patient is alert, oriented x 3, equal unlabored respirations, skin warm/dry/pink. Vital Signs: 12:58 BP 119 / 69; Pulse 87; Resp 17; Temp 98.2(TE); Pulse Ox 95% on R/A; Weight 77.11 kg; ss Height 6 ft. 0 in. (182.88 cm); Pain 4/10; 15:47 BP 119 / 72; Pulse 78; Resp 16; Pulse Ox 95% on R/A; jb4 12:58 Body Mass Index 23.06 (77.11 kg, 182.88 cm) ss Start Coma Score: 12:58 Eye Response: spontaneous(4). Verbal Response: oriented(5). Motor Response: obeys ss commands(6). Total: 15. Trauma Score (Adult): 12:58 Eye Response: spontaneous(1); Verbal Response: oriented(1); Motor Response: obeys ss commands(2); Systolic BP: > 89 mm Hg(4); Respiratory Rate: 10 to 29 per min(4); Larry Score: 15; Trauma Score: 12 ED Course: 12:51 Patient arrived in ED. ss 12:56 Triage completed. ss 12:58 Patient has correct armband on for positive identification. ss 12:58 Patient maintains SpO2 saturation greater than 95% on room air. ss 13:01 Jean-Paul Horne, RN is Primary Nurse. bp 13:03 Cirilo Guerrero NP is PHCP. pm1 13:[address] MD is Attending Physician. pm1 13:09 Arm band placed on right wrist. ss 13:31 XRAY Hip RIGHT 2 view In Process Unspecified. EDMS 15:05 CT Head Brain wo Cont In Process Unspecified. EDMS 15:05 Pelvis Wo Cont In Process Unspecified. EDMS 15:47 No provider procedures requiring assistance completed. Patient did not have IV access jb4 during this emergency room visit. Administered Medications: No medications were administered Medication: 15:47 VIS not applicable for this client. jb4 Outcome: 15:30 Discharge ordered by MD. pm1 15:47 Discharged to home via wheelchair, with family. jb4 15:47 Condition: stable 15:47 Discharge instructions given to patient, family, Instructed on discharge instructions, follow up and referral plans. Demonstrated understanding of instructions, follow-up care. 15:48 Patient left the ED. jb4 Signatures: Dispatcher [employer] EDLinda Rios RN RN Cirilo Guerrero NP [employer] pm1 Corona Mondragon RN RN jb4 Jean-Paul Horne, PENNIE RN bp Corrections: (The following items were deleted from the chart) 13:02 13:00 General: SEE TRIAGE NOTE. bp bp
--- NOTE | 2021-11-02 15:31 | EDPHYS ---
Physician Documentation [facility] Name: Elver Tee Age: 81 yrs Sex: Male : 1940 Arrival Date: 11/02/2021 Time: 12:51 Bed 18 Private MD: ED Physician Gomez Lane HPI: 11/02 13:43 This 81 yrs old Male presents to ER via EMS with complaints of Fall Injury, Hip Pain. pm1 13:43 Details of fall: The patient fell from an upright position, while walking, with his pm1 walker and accidentally got his walker into a pot hole and fell over on his right side, and struck asphalt. Onset: The symptoms/episode began/occurred just prior to arrival. Associated injuries: The patient sustained abrasion to right hip area. Severity of symptoms: in the emergency department the symptoms have improved. The patient has not experienced similar symptoms in the past. The patient has not recently seen a physician. Patient was walking with his walker and his walker hit a pothole resulting in fall to his right side. Patient reports hitting his head without any pain and no resulting LOC. Negative for neck pain. Patient does take blood thinner, name that he is unaware of. Patient is able to move his right hip and leg without any pain. Historical: - Allergies: 13:01 Bacitracin Zinc; ss 13:01 Neomycin Sulfate; ss 13:01 Polymyxin B Sulfate; ss - PMHx: 13:01 Bipolar disorder; Hypertensive disorder; Paranoid Schizophrenia; ss - Immunization history:: Client reports receiving the 2nd dose of the Covid vaccine. - Social history:: Smoking status: Patient denies any tobacco usage or history of. ROS: 13:43 Constitutional: Negative for fever, chills, and weight loss, Neck: Negative for injury, pm1 pain, and swelling, Cardiovascular: Negative for chest pain, palpitations, and edema, Respiratory: Negative for shortness of breath, cough, wheezing, and pleuritic chest pain, Abdomen/GI: Negative for abdominal pain, nausea, vomiting, diarrhea, and constipation, Back: Negative for injury and pain. 13:43 Neuro: Negative for headache, weakness, numbness, tingling, and seizure. 13:43 MS/extremity: Positive for pain, of the Right hip, Negative for decreased range of motion, deformity. 13:43 Skin: Positive for abrasion(s), of the Right hip. 13:43 All other systems are negative. Exam: 13:43 Constitutional: This is a well developed, well nourished patient who is awake, alert, pm1 and in no acute distress. Head/Face: Normocephalic, atraumatic. Neck: Trachea midline, no thyromegaly or masses palpated, and no cervical lymphadenopathy. Supple, full range of motion without nuchal rigidity, or vertebral point tenderness. No Meningismus. 13:43 Back: No spinal tenderness. No costovertebral tenderness. Full range of motion. 13:43 Eyes: Exam is negative for acute changes, Periorbital structures: appear normal. 13:43 ENT: Exam is negative for acute changes, Mouth: no acute changes, Lips: normal, moist, Oral mucosa: normal, pink and intact, moist. 13:43 Cardiovascular: Exam negative for acute changes, Rate: normal, Rhythm: regular, Pulses: no pulse deficits are appreciated. 13:43 Respiratory: Exam negative for acute changes, respiratory distress, shortness of breath. 13:43 Abdomen/GI: Exam negative for acute changes, Inspection: abdomen appears normal, Palpation: abdomen is soft and non-tender, in all quadrants. 13:43 Musculoskeletal/extremity: Extremities: grossly normal except: noted in the Right hip tenderness. Negative for right leg shortening and rotation: Circulation is intact in all extremities. 13:43 Neuro: Exam negative for acute changes, Orientation: is normal, Mentation: is normal, Motor: is normal, moves all fours. 15:35 Skin: Exam negative for abrasion, any evidence of obvious injury, laceration. pm1 Vital Signs: 12:58 BP 119 / 69; Pulse 87; Resp 17; Temp 98.2(TE); Pulse Ox 95% on R/A; Weight 77.11 kg; ss Height 6 ft. 0 in. (182.88 cm); Pain 4/10; 15:47 BP 119 / 72; Pulse 78; Resp 16; Pulse Ox 95% on R/A; jb4 12:58 Body Mass Index 23.06 (77.11 kg, 182.88 cm) Larry Coma Score: 12:58 Eye Response: spontaneous(4). Verbal Response: oriented(5). Motor Response: obeys commands(6). Total: 15. Trauma Score (Adult): 12:58 Eye Response: spontaneous(1); Verbal Response: oriented(1); Motor Response: obeys ss commands(2); Systolic BP: > 89 mm Hg(4); Respiratory Rate: 10 to 29 per min(4); Larry Score: 15; Trauma Score: 12 MDM: 13:04 Patient medically screened. pm1 15:27 Data reviewed: vital signs. Data interpreted: Pulse oximetry: on room air is 95 %. pm1 Interpretation: normal. Counseling: I had a detailed discussion with the patient and/or guardian regarding: the historical points, exam findings, and any diagnostic results supporting the discharge/admit diagnosis, radiology results, the need for outpatient follow up, to return to the emergency department if symptoms worsen or persist or if there are any questions or concerns that arise at home. 11/02 12:51 Order name: XRAY Hip RIGHT 2 view; Complete Time: 13:46 ss 11/02 13:35 Order name: CT Head Brain wo Cont; Complete Time: 15:16 pm1 11/02 13:48 Order name: CT Pelvis wo Cont pm1 11/02 13:52 Order name: Pelvis Wo Cont; Complete Time: 15:16 EDMS Administered Medications: No medications were administered Disposition Summary: 11/02/21 15:30 Discharge Ordered Location: Home pm1 Problem: new pm1 Symptoms: have improved pm1 Condition: Stable pm1 Diagnosis - Contusion of right hip pm1 - Fall on same level from slipping, tripping and stumbling without subsequent pm1 striking against object Followup: pm1 - With: Emergency Department - When: As needed - Reason: Worsening of condition Followup: pm1 - With: Private Physician - When: 2 - 3 days - Reason: Recheck today's complaints, Continuance of care, Re-evaluation by your physician Discharge Instructions: - Discharge Summary Sheet pm1 - Contusion pm1 - Fall Prevention in the Home, Adult pm1 Forms: - Medication Reconciliation Form pm1 - Thank You Letter pm1 - Antibiotic Education pm1 - Prescription Opioid Use pm1 Signatures: Dispatcher [employer] EDMS Linda Wild RN RN Cirilo Le, [employer] pm1 Corrections: (The following items were deleted from the chart) 15:34 15:30 Abrasion, right hip pm1 pm1 15:47 13:35 Wound Care ordered. pm1 jb4
[2021-11-02 16:04] VITALS: TEMP 98.2; O2SAT 95
[2021-11-02 16:06] VITALS: BP 119/72
== END 2021-11-02 15:48 | disposition home or self-care (01) ==
LOC: ER 12:42
DX: S70.01XA Contusion of right hip, initial encounter (principal); W01.0XXA Fall on same level from slipping, tripping and stumbling without subsequent striking against object, initial encounter; I10 Essential (primary) hypertension; Z88.1 Allergy status to other antibiotic agents; Z88.3 Allergy status to other anti-infective agents
CPT/HCPCS: 70450; 72192; 99284

== ENCOUNTER 2022-06-21 17:45 | Inpatient (IN) | payer OTHER, MEDICARE ==
--- OUTSIDE RECORDS SUMMARY | 2022-06-21 18:00 | XMS REPORT | Continuity of Care Document ---
:1940 Author Organization [facility] Address [address] [place] [address] [address]. [address] [place] [address] Care Team Providers Name Role Phone Hugo Dyer MD Primary Care Physician [id number] Attending Clinician Unavailable SIVAKUMAR WHITLOCK NATASHA Attending Clinician Unavailable Danielle Draper Kelcey Attending Clinician Unavailable Mike Duckworth Attending Clinician Unavailable EMILIANO CAMPO Attending Clinician Unavailable Nurse, Adc Pob Immunization Attending Clinician Unavailable Emiliano Campo DO Attending Clinician MAMI GODOY Attending Clinician Unavailable Mamadou Gil MD Attending Clinician 2, Adc Lab Attending Clinician Unavailable MAMADOU GIL Attending Clinician Unavailable MAMADOU GIL Attending Clinician Unavailable IVÁN ALEGRIA Attending Clinician Unavailable Iván Alegria MD Attending Clinician UNKNOWN, ATTENDING Attending Clinician Unavailable Shilpi Juarez Attending Clinician Unknown, Attending Attending Clinician Unavailable Care, Provider 25 - Adult & Pedi Urgent Attending Clinician Unavailable RADHA KOHLI Attending Clinician Unavailable ADRIAN MONTES Attending Clinician Unavailable Adrian Montes MD Attending Clinician Pob, Adc Lab Main Attending Clinician Unavailable Doctor Unassigned, [place] Attending Clinician Unavailable Ariana Jackson RN Attending Clinician Unavailable JUNO HOSKINS Attending Clinician Unavailable ADRIAN VYAS Attending Clinician Unavailable Mami Godoy MD Attending Clinician 1, Adc Lab Attending Clinician Unavailable [id number] Admitting Clinician Unavailable SIVAKUMAR WHITLOCK NATASHA Admitting Clinician Unavailable Danielle Draper Kelcey Admitting Clinician Unavailable Payers Payer Name Policy Type Policy Number Effective Date Expiration Date Rafael jackson [facility] MCR [id number] AARP AARP [id number] MEDICARE B [id number] 2003 RAILROAD 00:00:00 [place] [id number] 2006 HEALTHCARE 00:00:00 MEDICARE SUPPLEMENT RAILROAD [id number] Common MEDICARE [facility] AARP C1 [id number] Common [facility] Problems Condition Condition Condition Status Onset Resolution Last Treating Co mments Source Name Details Category Date Date Treatment Clinician Date 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 1-18 ity of 00:00: [address] Gynecomast Gynecomast Disease Active U nivers ia ia 3-04 ity of 00:00: [address] Elevated Elevated Disease Active Unive rs prolactin prolactin 304 ity of level level 00:00: [address] Bladder Bladder Problem Common stone stone [facility] 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 with [facility] hematuria [facility] [id number] Bladder Problem Common calculus [facility] [id number] Foreign Problem Commo n body in [facility] Allergies, Adverse Reactions, Alerts Allergy Allergy Status Severity Reaction(s) Onset Inactive Treating Comm ents Source Name Type Date Date Clinician NO KNOWN Drug Active Univers ALLERGIE Class ity of [facility] Family History Family Member Diagnosis Comments Start Date Stop Date Source Family member Thyroid [facility] Social History Social Habit Start Date Stop Date Quantity Comments Source History [facility] University o f Alcohol Frequency [place] [facility] History [facility] University o f Alcohol Std [place] [facility] Drinks Branch History [facility] University o f Alcohol Binge [place] [facility] Exposure to Not sure University of SARS-CoV-2 [place] [facility] (event) Branch History of Common [facility] - Tobacco Use [facility] Sex Assigned At Common Sp summer - [facility] Alcohol intake 2020-02-02 2020-02-02 0 /d University of 00:00:00 00:00:00 [facility] Tobacco use and 2020-02-02 2020-02-02 Never used Universit y of exposure 00:00:00 00:00:00 [facility] Alcohol Comment 2018-03-21 2018-03-21 [facility] ersity of 00:00:00 00:00:00 [facility] Smoking Status Start Date Stop Date Source Never Smoker [facility] Medications Ordered Filled Start Stop Current Ordering Indication Dosage Frequency Signature Comments Components Source Medication Medication Date Date Medication? Clinician (SIG) Name Name Cici Bolanos No .5{ml} Testostero e Cypionate e Cypionate 1-11 ne 200 MG/ML 200 MG/ML 00:00: Cypionate 00 200 MG[facility]ML [facility] No 1{ml} Testostero e Cypionate e Cypionate 2-15 ne 100 MG/ML 100 MG/ML 00:00: Cypionate 00 100 MG/ML [facility] No 1{ml} Testostero e Cypionate e Cypionate 8-09 ne 200 MG/ML 200 MG/ML 00:00: Cypionate 00 200 MG/ML Cici Alvaradoosteron 0 No 1{ml} Testostero e Cypionate e Cypionate 1-05 ne 200 MG/ML 200 MG/ML 00:00: Cypionate 00 200 MG/ML Cici Alvaradoosteron No 1{ml} Testostero e Cypionate e Cypionate 1-05 ne 200 MG/ML 200 MG/ML 00:00: Cypionate 00 200 MG/ML Testosteron Testosteron No 1{ml} Testostero e Cypionate e Cypionate 1-05 ne 200 MG/ML 200 MG/ML 00:00: Cypionate 00 200 MG/ML Testosteron Testosteron 0 No 1{ml} Testostero e Cypionate e Cypionate 1-05 ne 200 MG/ML 200 MG/ML 00:00: Cypionate 00 200 MG/ML Testosteron Testosteron 0 No 1{ml} Testostero e Cypionate e Cypionate 1-05 ne 200 MG/ML 200 MG/ML 00:00: Cypionate 00 200 MG/ML Testosteron Testosteron 0 No 1{ml} Testostero e Cypionate e Cypionate 8-26 ne 200 MG/ML 200 MG/ML 00:00: Cypionate 00 200 MG/ML Testosteron Testosteron 0 No 1{ml} Testostero e Cypionate e Cypionate 8-26 ne 200 MG/ML 200 MG/ML 00:00: Cypionate 00 200 MG/ML clonazePAM Yes [id number] .5mg Take 1 U nivers 0.5 mg 6-04 tablet by ity of tablet 00:00: mouth at [place] 00 bedtime. Medical Branch clonazePAM Yes [id number] .5mg Take 1 U nivers 0.5 mg 6-04 tablet by ity of tablet 00:00: mouth at [place] 00 bedtime. Medical Branch clonazePAM Yes [id number] .5mg Take 1 U nivers 0.5 mg 6-04 tablet by ity of tablet 00:00: mouth at [place] 00 bedtime. Medical Branch rivaroxaban Yes Take by Uni vers (XARELTO) 4-30 mouth. ity of 20 mg 15:40: [place] tablet 28 Medical Branch rivaroxaban Yes Take by Uni vers (XARELTO) 4-30 mouth. ity of 20 mg 15:40: [place] tablet 28 Medical Branch rivaroxaban Yes Take by Uni vers (XARELTO) 4-30 mouth. ity of 20 mg 15:40: [place] tablet 28 Medical Branch rivaroxaban Yes Take by Uni vers (XARELTO) 4-30 mouth. ity of 20 mg 15:40: [place] tablet 28 Medical Branch rivaroxaban Yes Take by Uni vers (XARELTO) 4-30 mouth. ity of 20 mg 15:40: [place] tablet 28 Medical Branch rivaroxaban Yes Take by Uni vers (XARELTO) 4-30 mouth. ity of 20 mg 10:40: [place] tablet 28 Medical Branch divalproex 2020-0 Yes [id number] 500mg Take 2 Univers ER 250 mg 4-30 tablets by ity of 24 hr 00:00: mouth at [place] tablet 00 bedtime. Medical Branch mirtazapine 0 Yes [id number] 7.5mg Take 1 Univers 7.5 mg 4-30 105 tablet by ity of tablet 00:00: mouth at [place] 00 bedtime. Medical Branch paliperidon 2020-0 Yes [id number] TAKE 1 Univers e 3 mg 24 4-30 TABLET BY ity o f hour tablet 00:00: MOUTH ONCE [place] 00 DAILY Medical Branch divalproex 2020-0 Yes [id number] 500mg Take 2 Univers ER 250 mg 4-30 tablets by ity of 24 hr 00:00: mouth at [place] tablet 00 bedtime. Medical Branch mirtazapine 2020-0 Yes [id number] 7.5mg Take 1 Univers 7.5 mg 4-30 105 tablet by ity of tablet 00:00: mouth at [place] 00 bedtime. Medical Branch paliperidon 2020-0 Yes [id number] TAKE 1 Univers e 3 mg 24 4-30 TABLET BY ity o f hour tablet 00:00: MOUTH ONCE [place] 00 DAILY Medical Branch divalproex 2020-0 Yes [id number] 500mg Take 2 Univers ER 250 mg 4-30 tablets by ity of 24 hr 00:00: mouth at [place] tablet 00 bedtime. Medical Branch mirtazapine 2020-0 Yes [id number] 7.5mg Take 1 Univers 7.5 mg 4-30 105 tablet by ity of tablet 00:00: mouth at [place] 00 bedtime. Medical Branch paliperidon 2020-0 Yes [id number] TAKE 1 Univers e 3 mg 24 4-30 TABLET BY ity o f hour tablet 00:00: MOUTH ONCE [place] 00 DAILY Medical Branch divalproex 2020-0 Yes [id number] 500mg Take 2 Univers ER 250 mg 4-30 tablets by ity of 24 hr 00:00: mouth at [place] tablet 00 bedtime. Medical Branch mirtazapine Yes [id number] 7.5mg Take 1 Univers 7.5 mg 4-30 105 tablet by ity of tablet 00:00: mouth at [place] 00 bedtime. Medical Branch paliperidon Yes [id number] TAKE 1 Univers e 3 mg 24 4-30 TABLET BY ity o f hour tablet 00:00: MOUTH ONCE [place] 00 DAILY Medical Branch divalproex Yes [id number] 500mg Take 2 Univers ER 250 mg 4-30 tablets by ity of 24 hr 00:00: mouth at [place] tablet 00 bedtime. Medical Branch mirtazapine Yes [id number] 7.5mg Take 1 Univers 7.5 mg 4-30 105 tablet by ity of tablet 00:00: mouth at [place] 00 bedtime. Medical Branch paliperidon Yes [id number] TAKE 1 Univers e 3 mg 24 4-30 TABLET BY ity o f hour tablet 00:00: MOUTH ONCE [place] 00 DAILY Medical Branch divalproex Yes [id number] 500mg Take 2 Univers ER 250 mg 4-30 tablets by ity of 24 hr 00:00: mouth at [place] tablet 00 bedtime. Medical Branch mirtazapine Yes [id number] 7.5mg Take 1 Univers 7.5 mg 4-30 105 tablet by ity of tablet 00:00: mouth at [place] 00 bedtime. Medical Branch paliperidon Yes [id number] TAKE 1 Univers e 3 mg 24 4-30 TABLET BY ity o f hour tablet 00:00: MOUTH ONCE [place] 00 DAILY Medical Branch divalproex 2020- No [id number] 500mg Take 2 Univers ER 250 mg 4-30 04-30 tablets by ity of 24 hr 00:00: 00:00 mouth at [place] tablet 00 :00 bedtime. Medical Branch divalproex 2020- No [id number] 500mg Take 2 Univers ER 250 mg 4-30 04-30 tablets by ity of 24 hr 00:00: 00:00 mouth at [place] tablet 00 :00 bedtime. Medical Branch divalproex 2020- No [id number] 500mg Take 2 Univers ER 250 mg 4-30 04-30 tablets by ity of 24 hr 00:00: 00:00 mouth at [place] tablet 00 :00 bedtime. Medical Branch divalproex 1-0 Yes [id number] 500mg Take 1 Univers ER 500 mg 4-08 tablet by ity o f 24 hr 00:00: mouth [place] tablet 00 every 24 Medical (twenty-fo Branch ur) hours. divalproex 2020-0 Yes [id number] 500mg Take 1 Univers ER 500 mg 4-08 tablet by ity o f 24 hr 00:00: mouth [place] tablet 00 every 24 Medical (twenty-fo Branch ur) hours. divalproex 2020-0 2021- No [id number] 500mg Take 1 Univers ER 500 mg 4-08 04-30 tablet by ity of 24 hr 00:00: 00:00 mouth [place] tablet 00 :00 every 24 Medical (twenty-fo Branch ur) hours. divalproex 2020-0 2021- No [id number] 500mg Take 1 Univers ER 500 mg 4-08 04-30 tablet by ity of 24 hr 00:00: 00:00 mouth [place] tablet 00 :00 every 24 Medical (twenty-fo Branch ur) hours. divalproex 2020-0 2021- No [id number] 500mg Take 1 Univers ER 500 mg 4-08 04-30 tablet by ity of 24 hr 00:00: 00:00 mouth [place] tablet 00 :00 every 24 Medical (twenty-fo Branch ur) hours. clonazePAM 2020-0 Yes [id number] .5mg Take 1 U nivers 0.5 mg 3-04 tablet by ity of tablet 00:00: mouth at [place] [address] bedtime. Medical Branch clonazePAM 2020-0 Yes [id number] .5mg Take 1 U nivers 0.5 mg 3-04 tablet by ity of tablet 00:00: mouth at [place] [address] bedtime. Medical Branch clonazePAM 2020-0 Yes [id number] .5mg Take 1 U nivers 0.5 mg 3-04 tablet by ity of tablet 00:00: mouth at [place] 00 bedtime. Medical Branch clonazePAM 2020-0 Yes [id number] .5mg Take 1 U nivers 0.5 mg 3-04 tablet by ity of tablet 00:00: mouth at [place] 00 bedtime. Medical Branch clonazePAM 2020-0 Yes [id number] .5mg Take 1 U nivers 0.5 mg 3-04 tablet by ity of tablet 00:00: mouth at [place] [address] bedtime. Medical Branch clonazePAM 2020-0 Yes [id number] .5mg Take 1 U nivers 0.5 mg 3-04 tablet by ity of tablet 00:00: mouth at [place] [address] bedtime. Medical Branch clonazePAM 2020-0 Yes [id number] .5mg Take 1 U nivers 0.5 mg 3-04 tablet by ity of tablet 00:00: mouth at [place] [address] bedtime. Medical Branch clonazePAM 2020-0 Yes [id number] .5mg Take 1 U nivers 0.5 mg 3-04 tablet by ity of tablet 00:00: mouth at [place] [address] bedtime. Medical Branch clonazePAM 2020-0 Yes [id number] .5mg Take 1 U nivers 0.5 mg 3-04 tablet by ity of tablet 00:00: mouth at [place] [address] bedtime. Medical Branch clonazePAM 2020-0 Yes [id number] .5mg Take 1 U nivers 0.5 mg 3-04 tablet by ity of tablet 00:00: mouth at [place] [address] bedtime. Medical Branch clonazePAM 2020-0 1- No [id number] .5mg Take 1 Univers 0.5 mg 3-04 06-04 tablet by ity of tablet 00:00: 00:00 mouth at [place] 00 :00 bedtime. Medical Branch clonazePAM 2020-0 1- No [id number] .5mg Take 1 Univers 0.5 mg 3-04 06-04 tablet by ity of tablet 00:00: 00:00 mouth at [place] 00 :00 bedtime. Medical Branch paliperidon 2020-0 Yes [id number] TAKE 1 Univers e 3 mg 24 2-26 TABLET BY ity o f hour tablet 00:00: MOUTH ONCE [place] DAILY Medical Branch paliperidon 2020-0 Yes [id number] TAKE 1 Univers e 3 mg 24 2-26 TABLET BY ity o f hour tablet 00:00: MOUTH ONCE [place] DAILY Medical Branch paliperidon 2020-0 Yes [id number] TAKE 1 Univers e 3 mg 24 2-26 TABLET BY ity o f hour tablet 00:00: MOUTH ONCE [place] DAILY Medical Branch paliperidon 2020-0 Yes [id number] TAKE 1 Univers e 3 mg 24 2-26 TABLET BY ity o f hour tablet 00:00: MOUTH ONCE DAILY Medical Branch paliperidon Yes [id number] TAKE 1 Univers e 3 mg 24 2-26 TABLET BY ity o f hour tablet 00:00: MOUTH ONCE DAILY Medical Branch paliperidon 2020- Yes [id number] TAKE 1 Univers e 3 mg 24 2-26 TABLET BY ity o f hour tablet 00:00: MOUTH ONCE DAILY Medical Branch paliperidon Yes [id number] TAKE 1 Univers e 3 mg 24 2-26 TABLET BY ity o f hour tablet 00:00: MOUTH ONCE DAILY Medical Branch paliperidon Yes [id number] TAKE 1 Univers e 3 mg 24 2-26 TABLET BY ity o f hour tablet 00:00: MOUTH ONCE DAILY Medical Branch paliperidon 2020-2020- No [id number] TAKE 1 Univers e 3 mg 24 2-26 04-30 TABLET BY ity of hour tablet 00:00: 00:00 MOUTH ONCE [place] 00 : DAILY Medical Branch paliperidon 2020-2020- No [id number] TAKE 1 Univers e 3 mg 24 2-26 04-30 TABLET BY ity of hour tablet 00:00: 00:00 MOUTH ONCE [place] 00 :00 DAILY Medical Branch paliperidon 2020-2020- No [id number] TAKE 1 Univers e 3 mg 24 2-26 04-30 TABLET BY ity of hour tablet 00:00: 00:00 MOUTH ONCE [place] 00 :00 DAILY Medical Branch XARELTO Yes 10mg Take 10 [...] 00:00: daily. Medical Branch paliperidon 2020-0 Yes [id number] TAKE 1 Univers e 3 mg 24 1-22 TABLET BY ity o f hour tablet 00:00: MOUTH ONCE [place] 00 DAILY Medical Branch mirtazapine 2020-0 Yes [id number] 7.5mg Take 1 Univers 7.5 mg 1-22 105 tablet by ity of tablet 00:00: mouth at [place] [address] bedtime. Medical Branch mirtazapine 2020-0 Yes [id number] 7.5mg Take 1 Univers 7.5 mg 1-22 105 tablet by ity of tablet 00:00: mouth at [place] 00 bedtime. Medical Branch mirtazapine 2020-0 Yes [id number] 7.5mg Take 1 Univers 7.5 mg 1-22 105 tablet by ity of tablet 00:00: mouth at [place] 00 bedtime. Medical Branch mirtazapine 2020-0 Yes [id number] 7.5mg Take 1 Univers 7.5 mg 1-22 105 tablet by ity of tablet 00:00: mouth at [place] 00 bedtime. Medical Branch mirtazapine 2020-0 Yes [id number] 7.5mg Take 1 Univers 7.5 mg 1-22 105 tablet by ity of tablet 00:00: mouth at [place] [address] bedtime. Medical Branch mirtazapine Yes [id number] 7.5mg Take 1 Univers 7.5 mg 1-22 105 tablet by ity of tablet 00:00: mouth at [place] [address] bedtime. Medical Branch mirtazapine 0 Yes [id number] 7.5mg Take 1 Univers 7.5 mg 1-22 105 tablet by ity of tablet 00:00: mouth at [place] [address] bedtime. Medical Branch mirtazapine 0 Yes [id number] 7.5mg Take 1 Univers 7.5 mg 1-22 105 tablet by ity of tablet 00:00: mouth at [place] [address] bedtime. Medical Branch mirtazapine Yes [id number] 7.5mg Take 1 Univers 7.5 mg 1-22 105 tablet by ity of tablet 00:00: mouth at [place] [address] bedtime. Medical Branch propranoloL 2020- No [id number] 10mg Take 1 Univers 10 mg 1-22 07-22 tablet by ity of tablet 00:00: 04:59 mouth 2 [place] 00 :00 (two) Medical times Branch daily as needed (tremor) for up to 180 days. propranoloL 2020- No [id number] 10mg Take 1 Univers 10 mg 1-22 07-22 tablet by ity of tablet 00:00: 04:59 mouth 2 [place] 00 :00 (two) Medical times Branch daily as needed (tremor) for up to 180 days. propranoloL 2020- No [id number] 10mg Take 1 Univers 10 mg 1-22 07-22 tablet by ity of tablet 00:00: 04:59 mouth 2 [place] 00 :00 (two) Medical times Branch daily as needed (tremor) for up to 180 days. propranoloL 2020- No [id number] 10mg Take 1 Univers 10 mg 1-22 07-22 tablet by ity of tablet 00:00: 04:59 mouth 2 [place] 00 :00 (two) Medical times Branch daily as needed (tremor) for up to 180 days. propranoloL 2020- No [id number] 10mg Take 1 Univers 10 mg 1-22 07-22 tablet by ity of tablet 00:00: 04:59 mouth 2 [place] 00 :00 (two) Medical times Branch daily as needed (tremor) for up to 180 days. propranoloL 2020- No [id number] 10mg Take 1 Univers 10 mg 1-22 07-22 tablet by ity of tablet 00:00: 04:59 mouth 2 [place] 00 :00 (two) Medical times Branch daily as needed (tremor) for up to 180 days. propranoloL 2020- No [id number] 10mg Take 1 Univers 10 mg 1-22 07-22 tablet by ity of tablet 00:00: 04:59 mouth 2 [place] 00 :00 (two) Medical times Branch daily as needed (tremor) for up to 180 days. propranoloL 2020- No [id number] 10mg Take 1 Univers 10 mg 1-22 07-22 tablet by ity of tablet 00:00: 04:59 mouth 2 [place] 00 :00 (two) Medical times Branch daily as needed (tremor) for up to 180 days. propranoloL 2020- No [id number] 10mg Take 1 Univers 10 mg 1-22 07-22 tablet by ity of tablet 00:00: 04:59 mouth 2 [place] 00 :00 (two) Medical times Branch daily as needed (tremor) for up to 180 days. propranoloL 2020- No [id number] 10mg Take 1 Univers 10 mg 1-22 07-22 tablet by ity of tablet 00:00: 04:59 mouth 2 [place] 00 :00 (two) Medical times Branch daily as needed (tremor) for up to 180 days. propranoloL 2020- No [id number] 10mg Take 1 Univers 10 mg 1-22 07-22 tablet by ity of tablet 00:00: 04:59 mouth 2 [place] 00 :00 (two) Medical times Branch daily as needed (tremor) for up to 180 days. propranoloL 2020- No [id number] 10mg Take 1 Univers 10 mg 1-22 07-22 tablet by ity of tablet 00:00: 04:59 mouth 2 [place] 00 :00 (two) Medical times Branch daily as needed (tremor) for up to 180 days. propranoloL 2020- No [id number] 10mg Take 1 Univers 10 mg 1-22 07-22 tablet by ity of tablet 00:00: 04:59 mouth 2 [place] 00 :00 (two) Medical times Branch daily as needed (tremor) for up to 180 days. propranoloL 2020- No [id number] 10mg Take 1 Univers 10 mg 06-07- tablet by ity of tablet 00:00: 04:59 mouth 2 [place] 00 :00 (two) Medical times Branch daily as needed (tremor) for up to 180 days. mirtazapine 2020- No [id number] 7.5mg Take 1 Univers 7.5 mg 06-07-30 105 tablet by ity of tablet 00:00: 00:00 mouth at [place] 00 :00 bedtime. Medical Branch mirtazapine 2020- No [id number] 7.5mg Take 1 Univers 7.5 mg 06-07-30 105 tablet by ity of tablet 00:00: 00:00 mouth at [place] 00 :00 bedtime. Medical Branch mirtazapine No [id number] 7.5mg Take 1 Univers 7.5 mg 06-07-30 105 tablet by ity of tablet 00:00: 00:00 mouth at [place] 00 :00 bedtime. Medical Branch divalproex 2019-05 Yes [id number] 500mg Take 2 Univers ER 250 mg 2-26 tablets by ity of 24 hr 00:00: mouth at [place] tablet 00 bedtime. Medical Branch divalproex 2019-05- No [id number] 500mg Take 2 Univers ER 250 mg 2-26 -06 tablets by ity of 24 hr 00:00: 05:59 mouth at [place] tablet 00 :00 bedtime Medical for 10 Branch days. Flomax 0.4 Flomax 0.4 2019-05- No 1{capsu QD Flomax 0.4 MG MG -30 11-25 le} MG 00:00: 00:00 00 :00 divalproex 2019-05 Yes [id number] 500mg Take 2 Univers ER 250 mg 1-13 tablets by ity of 24 hr 00:00: mouth at [place] tablet 00 bedtime. Medical Branch divalproex 2019-05 Yes [id number] 500mg Take 2 Univers ER 250 mg 1-13 tablets by ity of 24 hr 00:00: mouth at [place] tablet 00 bedtime. Medical Branch divalproex 2019-05 Yes [id number] 500mg Take 2 Univers ER 250 mg 1-13 tablets by ity of 24 hr 00:00: mouth at [place] tablet 00 bedtime. Medical Branch divalproex 2020-1 Yes [id number] 500mg Take 2 Univers ER 250 mg 1-13 tablets by ity of 24 hr 00:00: mouth at [place] tablet 00 bedtime. Medical Branch clonazePAM 2019- Yes [id number] .5mg Take 1 U nivers 0.5 mg 1-03 tablet by ity of tablet 00:00: mouth at [place] 00 bedtime. Medical Branch mirtazapine 2020- Yes [id number] 7.5mg Take 1 Univers 7.5 mg 1-03 105 tablet by ity of tablet 00:00: mouth at [place] 00 bedtime. Medical Branch paliperidon 2020- Yes [id number] TAKE 1 Univers e 3 mg 24 1-03 TABLET BY ity o f hour tablet 00:00: MOUTH ONCE [place] 00 DAILY Medical Branch clonazePAM 2019-1 Yes [id number] .5mg Take 1 U nivers 0.5 mg 1-03 tablet by ity of tablet 00:00: mouth at [place] 00 bedtime. Medical Branch mirtazapine 2019- Yes [id number] 7.5mg Take 1 Univers 7.5 mg 1-03 105 tablet by ity of tablet 00:00: mouth at [place] 00 bedtime. Medical Branch paliperidon 2019- Yes [id number] TAKE 1 Univers e 3 mg 24 1-03 TABLET BY ity o f hour tablet 00:00: MOUTH ONCE [place] 00 DAILY Medical Branch clonazePAM 2019-1 Yes [id number] .5mg Take 1 U nivers 0.5 mg 1-03 tablet by ity of tablet 00:00: mouth at [place] 00 bedtime. Medical Branch mirtazapine 2019- Yes [id number] 7.5mg Take 1 Univers 7.5 mg 1-03 105 tablet by ity of tablet 00:00: mouth at [place] 00 bedtime. Medical Branch paliperidon 2020- Yes [id number] TAKE 1 Univers e 3 mg 24 1-03 TABLET BY ity o f hour tablet 00:00: MOUTH ONCE [place] 00 DAILY Medical Branch clonazePAM 2019-1 Yes [id number] .5mg Take 1 U nivers 0.5 mg 1-03 tablet by ity of tablet 00:00: mouth at [place] 00 bedtime. Medical Branch clonazePAM 2019- Yes [id number] .5mg Take 1 U nivers 0.5 mg 1-03 tablet by ity of tablet 00:00: mouth at [place] 00 bedtime. Medical Branch clonazePAM 2020-1 Yes [id number] .5mg Take 1 U nivers 0.5 mg 1-03 tablet by ity of tablet 00:00: mouth at [place] 00 bedtime. Medical Branch mirtazapine 2020-1 Yes [id number] 7.5mg Take 1 Univers 7.5 mg 1-03 105 tablet by ity of tablet 00:00: mouth at [place] 00 bedtime. Medical Branch clonazePAM 2020-1 Yes [id number] .5mg Take 1 U nivers 0.5 mg 1-03 tablet by ity of tablet 00:00: mouth at [place] 00 bedtime. Medical Branch mirtazapine 2019- Yes [id number] 7.5mg Take 1 Univers 7.5 mg 1-03 105 tablet by ity of tablet 00:00: mouth at [place] 00 bedtime. Medical Branch paliperidon 2020-1 Yes [id number] TAKE 1 Univers e 3 mg 24 1-03 TABLET BY ity o f hour tablet 00:00: MOUTH ONCE [place] 00 DAILY Medical Branch clonazePAM 2019-1 Yes [id number] .5mg Take 1 U nivers 0.5 mg 1-03 tablet by ity of tablet 00:00: mouth at [place] 00 bedtime. Medical Branch mirtazapine 2019- Yes [id number] 7.5mg Take 1 Univers 7.5 mg 1-03 105 tablet by ity of tablet 00:00: mouth at [place] 00 bedtime. Medical Branch paliperidon 2020-1 Yes [id number] TAKE 1 Univers e 3 mg 24 1-03 TABLET BY ity o f hour tablet 00:00: MOUTH ONCE [place] 00 DAILY Medical Branch clonazePAM 2020-1 Yes [id number] .5mg Take 1 U nivers 0.5 mg 1-03 tablet by ity of tablet 00:00: mouth at [place] 00 bedtime. Medical Branch mirtazapine 2020-1 Yes [id number] 7.5mg Take 1 Univers 7.5 mg 1-03 105 tablet by ity of tablet 00:00: mouth at [place] 00 bedtime. Medical Branch paliperidon 2020-1 Yes [id number] TAKE 1 Univers e 3 mg 24 1-03 TABLET BY ity o f hour tablet 00:00: MOUTH ONCE [place] 00 DAILY Medical Branch clonazePAM 2020-1 Yes [id number] .5mg Take 1 U nivers 0.5 mg 1-03 tablet by ity of tablet 00:00: mouth at [place] 00 bedtime. Medical Branch mirtazapine 2020- Yes [id number] 7.5mg Take 1 Univers 7.5 mg 1-03 105 tablet by ity of tablet 00:00: mouth at [place] 00 bedtime. Medical Branch paliperidon 2020-1 Yes [id number] TAKE 1 Univers e 3 mg 24 1-03 TABLET BY [facility] hour tablet 00:00: MOUTH ONCE [place] DAILY [facility] clonazePAM 2020- Yes [id number] .5mg Take 1 [facility] 0.5 mg 1-03 tablet by [facility] tablet 00:00: mouth at [place] 00 bedtime. [facility] mirtazapine 2019- Yes [id number] 7.5mg Take 1 [facility] 7.5 mg 1-03 105 tablet by [facility] tablet 00:00: mouth at [place] 00 bedtime. [facility] paliperidon 2019- Yes [id number] TAKE 1 [facility] 3 mg 24 1-03 TABLET BY [facility] hour tablet 00:00: MOUTH ONCE [place] DAILY [facility] clonazePAM 2019- Yes [id number] .5mg Take 1 [facility] 0.5 mg 1-03 tablet by [facility] tablet 00:00: mouth at [place] 00 bedtime. [facility] mirtazapine 2019- Yes [id number] 7.5mg Take 1 [facility] 7.5 mg 1-03 105 tablet by [facility] tablet 00:00: mouth at [place] 00 bedtime. [facility] paliperidon 2019-1 Yes [id number] TAKE 1 [facility] 3 mg 24 1-03 TABLET BY [facility] hour tablet 00:00: MOUTH ONCE [place] 00 DAILY [facility] mirtazapine 2020- Yes [id number] 7.5mg Take 1 [facility] 7.5 mg 0-30 105 tablet by [facility] tablet 00:00: mouth at [place] 00 bedtime. [facility] mirtazapine 2019- Yes [id number] 7.5mg Take 1 [facility] 7.5 mg 0-02 105 tablet by [facility] tablet 00:00: mouth at [place] 00 bedtime. [facility] mirtazapine 2020- Yes [id number] 7.5mg Take 1 [facility] 7.5 mg 0-02 105 tablet by [facility] tablet 00:00: mouth at 00 bedtime. [facility] propranolol 2020-0 Yes [id number] 10mg Take 1 [facility] 10 mg 8-03 tablet by [facility] tablet 00:00: mouth 2 (two) Medical times Branch daily as needed (tremor). propranolol 2020-0 Yes [id number] 10mg Take 1 [facility] 10 mg 8-03 tablet by [facility] tablet 00:00: mouth (two) Medical times Branch daily as needed (tremor). propranolol 2020-0 Yes [id number] 10mg Take 1 [facility] 10 mg 8-03 tablet by [facility] tablet 00:00: mouth (two) Medical times Branch daily as needed (tremor). propranolol 2020-0 Yes [id number] 10mg Take 1 [facility] 10 mg 8-03 tablet by [facility] tablet 00:00: mouth (two) Medical times Branch daily as needed (tremor). propranolol 2020-0 Yes [id number] 10mg Take 1 [facility] 10 mg 8-03 tablet by [facility] tablet 00:00: mouth (two) Medical times Branch daily as needed (tremor). propranolol 2020-0 Yes [id number] 10mg Take 1 [facility] 10 mg 8-03 tablet by [facility] tablet 00:00: mouth (two) Medical times Branch daily as needed (tremor). propranolol 2020-0 Yes [id number] 10mg Take 1 [facility] 10 mg 8-03 tablet by [facility] tablet 00:00: mouth (two) Medical times Branch daily as needed (tremor). propranolol 2020-0 Yes [id number] 10mg Take 1 [facility] 10 mg 8-03 tablet by [facility] tablet 00:00: mouth (two) Medical times Branch daily as needed (tremor). propranolol 2020-0 Yes [id number] 10mg Take 1 [facility] 10 mg 8-03 tablet by [facility] tablet 00:00: mouth (two) Medical times Branch daily as needed (tremor). propranolol 2020-0 Yes [id number] 10mg Take 1 [facility] 10 mg 8-03 tablet by [facility] tablet 00:00: mouth (two) Medical times Branch daily as needed (tremor). propranolol 2020-0 Yes [id number] 10mg Take 1 [facility] 10 mg 8-03 tablet by [facility] tablet 00:00: mouth 2 (two) Medical times Branch daily as needed (tremor). propranolol 2020-0 Yes [id number] 10mg Take 1 [facility] 10 mg 8-03 tablet by [facility] tablet 00:00: mouth 2 (two) Medical times Branch daily as needed (tremor). propranolol 2020-0 Yes [id number] 10mg Take 1 [facility] 10 mg 8-03 tablet by [facility] tablet 00:00: mouth 2 (two) Medical times Branch daily as needed (tremor). propranolol 2020-0 Yes [id number] 10mg Take 1 [facility] 10 mg 8-03 tablet by [facility] tablet 00:00: mouth (two) Medical times Branch daily as needed (tremor). propranolol 2020-0 Yes [id number] 10mg Take 1 [facility] 10 mg 8-03 tablet by [facility] tablet 00:00: mouth (two) Medical times Branch daily as needed (tremor). propranolol 2020-0 Yes [id number] 10mg Take 1 [facility] 10 mg 8-03 tablet by [facility] tablet 00:00: mouth (two) Medical times Branch daily as needed (tremor). propranolol 2020-0 Yes [id number] 10mg Take 1 [facility] 10 mg 8-03 tablet by [facility] tablet 00:00: mouth (two) Medical times Branch daily as needed (tremor). propranolol 2020-0 Yes [id number] 10mg Take 1 [facility] 10 mg 8-03 tablet by [facility] tablet 00:00: mouth (two) Medical times Branch daily as needed (tremor). propranolol 2020-0 Yes [id number] 10mg Take 1 [facility] 10 mg 8-03 tablet by [facility] tablet 00:00: mouth (two) Medical times Branch daily as needed (tremor). propranolol 2020-0 Yes [id number] 10mg Take 1 [facility] 10 mg 8-03 tablet by [facility] tablet 00:00: mouth 2 (two) Medical times Branch daily as needed (tremor). propranolol 2020-0 Yes [id number] 10mg Take 1 [facility] 10 mg 8-03 tablet by [facility] tablet 00:00: mouth 2 (two) Medical times Branch daily as needed (tremor). propranolol 2020-0 Yes [id number] 10mg Take 1 [facility] 10 mg 8-03 tablet by [facility] tablet 00:00: mouth (two) Medical times Branch daily as needed (tremor). propranolol 2020-0 Yes [id number] 10mg Take 1 [facility] 10 mg 8-03 tablet by [facility] tablet 00:00: mouth (two) Medical times Branch daily as needed (tremor). propranolol 2020-0 Yes [id number] 10mg Take 1 [facility] 10 mg 8-03 tablet by [facility] tablet 00:00: mouth (two) Medical times Branch daily as needed (tremor). propranolol 2020-0 Yes [id number] 10mg Take 1 [facility] 10 mg 8-03 tablet by [facility] tablet 00:00: mouth (two) Medical times Branch daily as needed (tremor). propranolol 2020-0 Yes [id number] 10mg Take 1 [facility] 10 mg 8-03 tablet by [facility] tablet 00:00: mouth (two) Medical times Branch daily as needed (tremor). propranolol 2020-0 Yes [id number] 10mg Take 1 [facility] 10 mg 8-03 tablet by [facility] tablet 00:00: mouth (two) Medical times Branch daily as needed (tremor). propranolol 2020-0 Yes [id number] 10mg Take 1 [facility] 10 mg 8-03 tablet by [facility] tablet 00:00: mouth (two) Medical times Branch daily as needed (tremor). propranolol 2020-0 Yes [id number] 10mg Take 1 [facility] 10 mg 8-03 tablet by [facility] tablet 00:00: mouth (two) Medical times Branch daily as needed (tremor). propranolol 2020-0 Yes [id number] 10mg Take 1 [facility] 10 mg 8-03 tablet by [facility] tablet 00:00: mouth (two) Medical times Branch daily as needed (tremor). propranolol 2020-0 Yes [id number] 10mg Take 1 [facility] 10 mg 8-03 tablet by [facility] tablet 00:00: mouth (two) Medical times Branch daily as needed (tremor). divalproex 2020-0 Yes [id number] 500mg Take 2 [facility] ER 250 mg 7-14 tablets by [facility] 24 hr 00:00: mouth at [place] tablet 00 bedtime. [facility] divalproex 2020-0 Yes [id number] 500mg Take 2 [facility] ER 250 mg 7-14 tablets by [facility] 24 hr 00:00: mouth at [place] tablet 00 bedtime. [facility] divalproex 2020-0 Yes [id number] 500mg Take 2 [facility] ER 250 mg 7-14 tablets by [facility] 24 hr 00:00: mouth at [place] tablet 00 bedtime. [facility] divalproex 2020-0 Yes [id number] 500mg Take 2 [facility] ER 250 mg 7-14 tablets by [facility] 24 hr 00:00: mouth at [place] tablet 00 bedtime. [facility] divalproex 2020-0 Yes [id number] 500mg Take 2 [facility] ER 250 mg 7-14 tablets by [facility] 24 hr 00:00: mouth at [place] tablet 00 bedtime. [facility] divalproex 2020-0 Yes [id number] 500mg Take 2 [facility] 250 mg 7-14 tablets by [facility] 24 hr 00:00: mouth at [place] tablet 00 bedtime. [facility] divalproex 2020-0 Yes [id number] 500mg Take 2 [facility] ER 250 mg 7-14 tablets by [facility] 24 hr 00:00: mouth at [place] tablet 00 bedtime. [facility] divalproex 2020-0 Yes [id number] 500mg Take 2 [facility] 250 mg 7-14 tablets by [facility] 24 hr 00:00: mouth at [place] tablet 00 bedtime. [facility] divalproex 2020-0 Yes [id number] 500mg Take 2 [facility] ER 250 mg 7-14 tablets by [facility] 24 hr 00:00: mouth at [place] tablet 00 bedtime. [facility] divalproex 2020-0 Yes [id number] 500mg Take 2 [facility] ER 250 mg 7-14 tablets by [facility] 24 hr 00:00: mouth at [place] tablet 00 bedtime. [facility] divalproex 2020-0 Yes [id number] 500mg Take 2 [facility] 250 mg 7-14 tablets by [facility] 24 hr 00:00: mouth at [place] tablet 00 bedtime. [facility] divalproex 2020-0 Yes [id number] 500mg Take 2 [facility] 250 mg 7-14 tablets by [facility] 24 hr 00:00: mouth at [place] tablet 00 bedtime. [facility] divalproex 2020-0 Yes [id number] 500mg Take 2 [facility] 250 mg 7-14 tablets by [facility] 24 hr 00:00: mouth at [place] tablet 00 bedtime. [facility] divalproex 2020-0 Yes [id number] 500mg Take 2 [facility] 250 mg 7-14 tablets by [facility] 24 hr 00:00: mouth at [place] tablet 00 bedtime. [facility] divalproex 2020-0 Yes [id number] 500mg Take 2 [facility] ER 250 mg 7-14 tablets by [facility] 24 hr 00:00: mouth at [place] tablet 00 bedtime. [facility] divalproex 2020-0 Yes [id number] 500mg Take 2 [facility] ER 250 mg 7-14 tablets by [facility] 24 hr 00:00: mouth at [place] tablet 00 bedtime. [facility] divalproex 2020-0 Yes [id number] 500mg Take 2 [facility] ER 250 mg 7-14 tablets by [facility] 24 hr 00:00: mouth at [place] tablet 00 bedtime. [facility] divalproex 2020-0 Yes [id number] 500mg Take 2 [facility] ER 250 mg 7-14 tablets by [facility] 24 hr 00:00: mouth at [place] tablet 00 bedtime. [facility] divalproex 2020-0 Yes [id number] 500mg Take 2 [facility] ER 250 mg 7-14 tablets by [facility] 24 hr 00:00: mouth at [place] tablet 00 bedtime. [facility] divalproex 2020-0 Yes [id number] 500mg Take 2 [facility] ER 250 mg 7-14 tablets by [facility] 24 hr 00:00: mouth at [place] tablet 00 bedtime. [facility] divalproex 2020-0 Yes [id number] 500mg Take 2 [facility] ER 250 mg 7-14 tablets by [facility] 24 hr 00:00: mouth at [place] tablet 00 bedtime. [facility] divalproex 2020-0 Yes [id number] 500mg Take 2 [facility] ER 250 mg 7-14 tablets by [facility] 24 hr 00:00: mouth at [place] tablet 00 bedtime. [facility] divalproex 2020-0 Yes [id number] 500mg Take 2 [facility] ER 250 mg 7-14 tablets by [facility] 24 hr 00:00: mouth at [place] tablet 00 bedtime. [facility] divalproex 2020-0 Yes [id number] 500mg Take 2 [facility] ER 250 mg 7-14 tablets by [facility] 24 hr 00:00: mouth at [place] tablet 00 bedtime. [facility] divalproex 2020-0 Yes [id number] 500mg Take 2 [facility] ER 250 mg 7-14 tablets by [facility] 24 hr 00:00: mouth at [place] tablet 00 bedtime. [facility] divalproex 2020-0 Yes [id number] 500mg Take 2 [facility] ER 250 mg 7-14 tablets by [facility] 24 hr 00:00: mouth at [place] tablet 00 bedtime. [facility] divalproex 2020-0 Yes [id number] 500mg Take 2 [facility] ER 250 mg 7-14 tablets by [facility] 24 hr 00:00: mouth at [place] tablet 00 bedtime. [facility] divalproex 2020-0 Yes [id number] 500mg Take 2 [facility] ER 250 mg 7-14 tablets by [facility] 24 hr 00:00: mouth at [place] tablet 00 bedtime. [facility] mirtazapine 2020-0 Yes [id number] 7.5mg Take 1 [facility] 7.5 mg 7-10 105 tablet by [facility] tablet 00:00: mouth at [place] 00 bedtime. [facility] mirtazapine 2020-0 Yes [id number] 7.5mg Take 1 [facility] 7.5 mg 7-10 105 tablet by [facility] tablet 00:00: mouth at [place] 00 bedtime. [facility] mirtazapine 2020-0 Yes [id number] 7.5mg Take 1 [facility] 7.5 mg 7-10 105 tablet by [facility] tablet 00:00: mouth at [place] 00 bedtime. [facility] mirtazapine 2020-0 Yes [id number] 7.5mg Take 1 [facility] 7.5 mg 7-10 105 tablet by [facility] tablet 00:00: mouth at [place] 00 bedtime. [facility] mirtazapine 2020-0 Yes [id number] 7.5mg Take 1 [facility] 7.5 mg 7-10 105 tablet by [facility] tablet 00:00: mouth at [place] bedtime. [facility] mirtazapine 2020-0 Yes [id number] 7.5mg Take 1 [facility] 7.5 mg 7-10 105 tablet by [facility] tablet 00:00: mouth at [place] 00 bedtime. [facility] mirtazapine 2020-0 Yes [id number] 7.5mg Take 1 [facility] 7.5 mg 7-10 105 tablet by [facility] tablet 00:00: mouth at [place] 00 bedtime. [facility] mirtazapine 2020-0 Yes [id number] 7.5mg Take 1 [facility] 7.5 mg 7-10 105 tablet by [facility] tablet 00:00: mouth at [place] 00 bedtime. [facility] mirtazapine 2020-0 Yes [id number] 7.5mg Take 1 [facility] 7.5 mg 7-10 105 tablet by [facility] tablet 00:00: mouth at [place] [address] bedtime. [facility] mirtazapine 2020-0 Yes [id number] 7.5mg Take 1 [facility] 7.5 mg 7-10 105 tablet by [facility] tablet 00:00: mouth at [place] [address] bedtime. [facility] mirtazapine 2020-0 Yes [id number] 7.5mg Take 1 [facility] 7.5 mg 7-10 105 tablet by [facility] tablet 00:00: mouth at [place] 00 bedtime. [facility] mirtazapine 2020-0 Yes [id number] 7.5mg Take 1 [facility] 7.5 mg 7-10 105 tablet by [facility] of tablet 00:00: mouth at [place] bedtime. [facility] mirtazapine 2020-0 Yes [id number] 7.5mg Take 1 [facility] 7.5 mg 7-10 105 tablet by [facility] of tablet 00:00: mouth at [place] [address] bedtime. [facility] mirtazapine 2020-0 Yes [id number] 7.5mg Take 1 [facility] 7.5 mg 7-10 105 tablet by [facility] of tablet 00:00: mouth at [place] [address] bedtime. [facility] mirtazapine 2020-0 Yes [id number] 7.5mg Take 1 [facility] 7.5 mg 7-10 105 tablet by [facility] of tablet 00:00: mouth at [place] [address] bedtime. [facility] mirtazapine 2020-0 Yes [id number] 7.5mg Take 1 [facility] 7.5 mg 7-10 105 tablet by [facility] of tablet 00:00: mouth at [place] [address] bedtime. [facility] mirtazapine 2020-0 Yes [id number] 7.5mg Take 1 [facility] 7.5 mg 7-10 105 tablet by [facility] of tablet 00:00: mouth at [place] 00 bedtime. [facility] mirtazapine 2020-0 Yes [id number] 7.5mg Take 1 [facility] 7.5 mg 7-10 105 tablet by [facility] of tablet 00:00: mouth at [place] [address] bedtime. [facility] mirtazapine 2020-0 Yes [id number] 7.5mg Take 1 [facility] 7.5 mg 7-10 105 tablet by [facility] of tablet 00:00: mouth at [place] [address] bedtime. [facility] mirtazapine 2020-0 Yes [id number] 7.5mg Take 1 [facility] 7.5 mg 7-10 105 tablet by [facility] of tablet 00:00: mouth at [place] bedtime. [facility] mirtazapine 2020-0 Yes [id number] 7.5mg Take 1 [facility] 7.5 mg 7-10 105 tablet by [facility] of tablet 00:00: mouth at [place] [address] bedtime. [facility] mirtazapine 2020-0 Yes [id number] 7.5mg Take 1 [facility] 7.5 mg 7-10 105 tablet by [facility] tablet 00:00: mouth at [place] bedtime. [facility] paliperidon 2020-0 Yes [id number] TAKE 1 [facility] e 3 mg 24 4-24 TABLET BY [facility] o f hour tablet 00:00: MOUTH ONCE DAILY [facility] paliperidon 2020-0 Yes [id number] TAKE 1 [facility] e 3 mg 24 4-24 TABLET BY [facility] o f hour tablet 00:00: MOUTH ONCE DAILY [facility] paliperidon 2020-0 Yes [id number] TAKE 1 [facility] e 3 mg 24 4-24 TABLET BY [facility] o f hour tablet 00:00: MOUTH ONCE DAILY [facility] paliperidon 2020-0 Yes [id number] TAKE 1 [facility] e 3 mg 24 4-24 TABLET BY [facility] o f hour tablet 00:00: MOUTH ONCE DAILY [facility] paliperidon 2020-0 Yes [id number] TAKE 1 [facility] e 3 mg 24 4-24 TABLET BY it[facility] o f hour tablet 00:00: MOUTH ONCE DAILY [facility] paliperidon 2020-0 Yes [id number] TAKE 1 [facility] e 3 mg 24 4-24 TABLET BY it[facility] o f hour tablet 00:00: MOUTH ONCE DAILY [facility] paliperidon 2020-0 Yes [id number] TAKE 1 [facility] e 3 mg 24 4-24 TABLET BY it[facility] o f hour tablet 00:00: MOUTH ONCE DAILY [facility] paliperidon 2020-0 Yes [id number] TAKE 1 [facility] e 3 mg 24 4-24 TABLET BY it[facility] o f hour tablet 00:00: MOUTH ONCE DAILY [facility] paliperidon 2020-0 Yes [id number] TAKE 1 [facility] e 3 mg 24 4-24 TABLET BY it[facility] o f hour tablet 00:00: MOUTH ONCE DAILY [facility] paliperidon 2020-0 Yes [id number] TAKE 1 [facility] e 3 mg 24 4-24 TABLET BY it[facility] o f hour tablet 00:00: MOUTH ONCE DAILY [facility] paliperidon 2020-0 Yes [id number] TAKE 1 [facility] e 3 mg 24 4-24 TABLET BY it[facility] o f hour tablet 00:00: MOUTH ONCE DAILY [facility] paliperidon 2020-0 Yes [id number] TAKE 1 [facility] e 3 mg 24 4-24 TABLET BY it[facility] o f hour tablet 00:00: MOUTH ONCE DAILY [facility] paliperidon 2020-0 Yes [id number] TAKE 1 [facility] e 3 mg 24 4-24 TABLET BY ity o f hour tablet 00:00: MOUTH ONCE DAILY [facility] paliperidon 2019-0 Yes [id number] TAKE 1 [facility] e 3 mg 24 4-24 TABLET BY ity o f hour tablet 00:00: MOUTH ONCE DAILY [facility] paliperidon 2019-0 Yes [id number] TAKE 1 [facility] e 3 mg 24 4-24 TABLET BY ity o f hour tablet 00:00: MOUTH ONCE DAILY [facility] paliperidon 2019-0 Yes [id number] TAKE 1 [facility] e 3 mg 24 4-24 TABLET BY ity o f hour tablet 00:00: MOUTH ONCE DAILY [facility] paliperidon 2020-0 Yes [id number] TAKE 1 [facility] e 3 mg 24 4-24 TABLET BY ity o f hour tablet 00:00: MOUTH ONCE DAILY [facility] paliperidon 2020-0 Yes [id number] TAKE 1 [facility] e 3 mg 24 4-24 TABLET BY ity o f hour tablet 00:00: MOUTH ONCE DAILY [facility] paliperidon 2020-0 Yes [id number] TAKE 1 [facility] e 3 mg 24 4-24 TABLET BY ity o f hour tablet 00:00: MOUTH ONCE DAILY [facility] paliperidon 2020-0 Yes [id number] TAKE 1 [facility] e 3 mg 24 4-24 TABLET BY it[facility] o f hour tablet 00:00: MOUTH ONCE DAILY [facility] paliperidon 2020-0 Yes [id number] TAKE 1 [facility] e 3 mg 24 4-24 TABLET BY it[facility] o f hour tablet 00:00: MOUTH ONCE DAILY [facility] paliperidon 2020-0 Yes [id number] TAKE 1 [facility] e 3 mg 24 4-24 TABLET BY it[facility] o f hour tablet 00:00: MOUTH ONCE DAILY [facility] paliperidon 2020-0 Yes [id number] TAKE 1 [facility] e 3 mg 24 4-24 TABLET BY it[facility] o f hour tablet 00:00: MOUTH ONCE DAILY [facility] paliperidon 2020-0 Yes [id number] TAKE 1 [facility] e 3 mg 24 4-24 TABLET BY ity o f hour tablet 00:00: MOUTH ONCE DAILY [facility] paliperidon 2020-0 Yes [id number] TAKE 1 [facility] e 3 mg 24 4-24 TABLET BY it[facility] o f hour tablet 00:00: MOUTH ONCE DAILY [facility] paliperidon 2020-0 Yes [id number] TAKE 1 [facility] e 3 mg 24 4-24 TABLET BY ity o f hour tablet 00:00: MOUTH ONCE DAILY [facility] paliperidon 2020-0 Yes [id number] TAKE 1 [facility] e 3 mg 24 4-24 TABLET BY it[facility] o f hour tablet 00:00: MOUTH ONCE DAILY [facility] paliperidon 2020-0 Yes [id number] TAKE 1 [facility] e 3 mg 24 4-24 TABLET BY it[facility] o f hour tablet 00:00: MOUTH ONCE DAILY [facility] divalproex 2020-0 Yes [id number] 500mg Take 2 [facility] ER 250 mg 4-23 tablets by [facility] of 24 hr 00:00: mouth at [place] tablet 00 bedtime. [facility] divalproex 2020-0 Yes [id number] 500mg Take 2 [facility] ER 250 mg 4-23 tablets by [facility] of 24 hr 00:00: mouth at [place] tablet 00 bedtime. [facility] divalproex 2020-0 Yes [id number] 500mg Take 2 [facility] ER 250 mg 4-23 tablets by [facility] of 24 hr 00:00: mouth at [place] tablet 00 bedtime. [facility] divalproex 2020-0 Yes [id number] 500mg Take 2 [facility] ER 250 mg 4-23 tablets by [facility] of 24 hr 00:00: mouth at [place] tablet 00 bedtime. [facility] divalproex 2020-0 Yes [id number] 500mg Take 2 [facility] ER 250 mg 4-23 tablets by [facility] of 24 hr 00:00: mouth at [place] tablet 00 bedtime. [facility] TOPIRAMATE 2020-0 Yes [id number] TAKE 1 [facility] 25 mg 4-22 TABLET BY [facility] of tablet 00:00: MOUTH TWO [place] TIMES Medical DAILY Branch TOPIRAMATE 2020-0 Yes [id number] TAKE 1 [facility] 25 mg 4-22 TABLET BY it[facility] of tablet 00:00: MOUTH TWO [place] TIMES Medical DAILY Branch TOPIRAMATE 2020-0 Yes [id number] TAKE 1 [facility] 25 mg 4-22 TABLET BY it[facility] of tablet 00:00: MOUTH TWO [place] TIMES Medical DAILY Branch TOPIRAMATE 2020-0 Yes [id number] TAKE 1 [facility] 25 mg 4-22 TABLET BY it[facility] of tablet 00:00: MOUTH TWO [place] TIMES Medical DAILY Branch TOPIRAMATE 2020-0 Yes [id number] TAKE 1 [facility] 25 mg 4-22 TABLET BY [facility] of tablet 00:00: MOUTH TWO [place] TIMES Medical DAILY Branch TOPIRAMATE 2020-0 Yes [id number] TAKE 1 [facility] 25 mg 4-22 TABLET BY [facility] of tablet 00:00: MOUTH TWO [place] TIMES Medical DAILY Branch TOPIRAMATE 2020-0 Yes [id number] TAKE 1 [facility] 25 mg 4-22 TABLET BY [facility] of tablet 00:00: MOUTH TWO [place] TIMES Medical DAILY Branch TOPIRAMATE 2020-0 Yes [id number] TAKE 1 [facility] 25 mg 4-22 TABLET BY it[facility] of tablet 00:00: MOUTH TWO [place] Medical DAILY Branch TOPIRAMATE 2020-0 Yes [id number] TAKE 1 [facility] 25 mg 4-22 TABLET BY ity of tablet 00:00: [facility] TWO [place] Medical DAILY Branch TOPIRAMATE 2020-0 Yes [id number] TAKE 1 [facility] 25 mg 4-22 TABLET BY ity of tablet 00:00: MOUTH TWO [place] TIMES Medical DAILY Branch TOPIRAMATE 2020-0 Yes [id number] TAKE 1 [facility] 25 mg 4-22 TABLET BY it[facility] of tablet 00:00: MOUTH TWO [place] TIMES Medical DAILY Branch TOPIRAMATE 2020-0 Yes [id number] TAKE 1 [facility] 25 mg 4-22 TABLET BY ity of tablet 00:00: MOUTH TWO [place] TIMES Medical DAILY Branch TOPIRAMATE 2020-0 Yes [id number] TAKE 1 [facility] 25 mg 4-22 TABLET BY it[facility] of tablet 00:00: MOUTH TWO [place] TIMES Medical DAILY Branch TOPIRAMATE 2020-0 Yes [id number] TAKE 1 [facility] 25 mg 4-22 TABLET BY ity of tablet 00:00: MOUTH TWO [place] TIMES Medical DAILY Branch TOPIRAMATE 2020-0 Yes [id number] TAKE 1 [facility] 25 mg 4-22 TABLET BY it[facility] of tablet 00:00: MOUTH TWO [place] TIMES Medical DAILY Branch TOPIRAMATE 2020-0 Yes [id number] TAKE 1 [facility] 25 mg 4-22 TABLET BY it[facility] of tablet 00:00: MOUTH TWO [place] TIMES Medical DAILY Branch TOPIRAMATE 2020-0 Yes [id number] TAKE 1 [facility] 25 mg 4-22 TABLET BY [facility] of tablet 00:00: MOUTH TWO [place] TIMES Medical DAILY Branch TOPIRAMATE 2020-0 Yes [id number] TAKE 1 [facility] 25 mg 4-22 TABLET BY [facility] of tablet 00:00: MOUTH TWO [place] TIMES Medical DAILY Branch TOPIRAMATE 2020-0 Yes [id number] TAKE 1 [facility] 25 mg 4-22 TABLET BY [facility] of tablet 00:00: MOUTH TWO [place] TIMES Medical DAILY Branch TOPIRAMATE 2020-0 Yes [id number] TAKE 1 [facility] 25 mg 4-22 TABLET BY it[facility] of tablet 00:00: MOUTH TWO [place] Medical DAILY Branch TOPIRAMATE 2020-0 Yes [id number] TAKE 1 [facility] 25 mg 4-22 TABLET BY ity of tablet 00:00: MOUTH TWO [place] Medical DAILY Branch TOPIRAMATE 2020-0 Yes [id number] TAKE 1 [facility] 25 mg 4-22 TABLET BY ity of tablet 00:00: [facility] TWO [place] TIMES Medical DAILY Branch TOPIRAMATE 2020-0 Yes [id number] TAKE 1 [facility] 25 mg 4-22 TABLET BY ity of tablet 00:00: MOUTH TWO [place] Medical DAILY Branch TOPIRAMATE 2020-0 Yes [id number] TAKE 1 [facility] 25 mg 4-22 TABLET BY ity of tablet 00:00: MOUTH TWO [place] TIMES Medical DAILY Branch TOPIRAMATE 2020-0 Yes [id number] TAKE 1 [facility] 25 mg 4-22 TABLET BY it[facility] of tablet 00:00: MOUTH TWO [place] TIMES Medical DAILY Branch TOPIRAMATE 2020-0 Yes [id number] TAKE 1 [facility] 25 mg 4-22 TABLET BY it[facility] of tablet 00:00: MOUTH TWO [place] TIMES Medical DAILY Branch TOPIRAMATE 2020-0 Yes [id number] TAKE 1 [facility] 25 mg 4-22 TABLET BY it[facility] of tablet 00:00: MOUTH TWO [place] TIMES Medical DAILY Branch TOPIRAMATE 2020-0 Yes [id number] TAKE 1 [facility] 25 mg 4-22 TABLET BY ity of tablet 00:00: MOUTH TWO [place] TIMES Medical DAILY Branch TOPIRAMATE 2020-0 Yes [id number] TAKE 1 [facility] 25 mg 4-22 TABLET BY ity of tablet 00:00: MOUTH TWO [place] TIMES Medical DAILY Branch TOPIRAMATE 2020-0 Yes [id number] TAKE 1 [facility] 25 mg 4-22 TABLET BY it[facility] of tablet 00:00: MOUTH TWO [place] TIMES Medical DAILY Branch TOPIRAMATE 2020-0 Yes [id number] TAKE 1 [facility] 25 mg 4-22 TABLET BY ity of tablet 00:00: MOUTH TWO [place] TIMES Medical DAILY Branch TOPIRAMATE 2020-0 Yes [id number] TAKE 1 [facility] 25 mg 4-22 TABLET BY ity of tablet 00:00: MOUTH TWO [place] TIMES Medical DAILY Branch TOPIRAMATE 2020-0 Yes [id number] TAKE 1 [facility] 25 mg 4-22 TABLET BY ity of tablet 00:00: MOUTH TWO [place] TIMES Medical DAILY Branch TOPIRAMATE 2020-0 Yes [id number] TAKE 1 [facility] 25 mg 4-22 TABLET BY ity of tablet 00:00: MOUTH TWO [place] TIMES Medical DAILY Branch TOPIRAMATE 2020-0 Yes [id number] TAKE 1 [facility] 25 mg 4-22 TABLET BY ity of tablet 00:00: MOUTH TWO [place] Medical DAILY Branch TOPIRAMATE 2020-0 Yes [id number] TAKE 1 [facility] 25 mg 4-22 TABLET BY ity of tablet 00:00: MOUTH TWO [place] Medical DAILY Branch TOPIRAMATE 2020-0 Yes [id number] TAKE 1 [facility] 25 mg 4-22 TABLET BY ity of tablet 00:00: MOUTH TWO [place] TIMES Medical DAILY Branch TOPIRAMATE 2020-0 Yes [id number] TAKE 1 [facility] 25 mg 4-22 TABLET BY ity of tablet 00:00: MOUTH TWO [place] TIMES Medical DAILY Branch TOPIRAMATE 2020-0 Yes [id number] TAKE 1 [facility] 25 mg 4-22 TABLET BY it[facility] of tablet 00:00: MOUTH TWO [place] TIMES Medical DAILY Branch TOPIRAMATE 2020-0 Yes [id number] TAKE 1 [facility] 25 mg 4-22 TABLET BY it[facility] of tablet 00:00: MOUTH TWO [place] TIMES Medical DAILY Branch TOPIRAMATE 2020-0 Yes [id number] TAKE 1 [facility] 25 mg 4-22 TABLET BY ity of tablet 00:00: MOUTH TWO [place] TIMES Medical DAILY Branch TOPIRAMATE 2020-0 Yes [id number] TAKE 1 [facility] 25 mg 4-22 TABLET BY ity of tablet 00:00: MOUTH TWO [place] 00 TIMES Medical DAILY Branch clonazePAM 2020-0 Yes [id number] .5mg Take 1 U nivers 0.5 mg 3-17 tablet by [facility] of tablet 00:00: mouth at [place] [address] bedtime. Medical Branch clonazePAM 2020-0 Yes [id number] .5mg Take 1 [facility] 0.5 mg 3-17 tablet by [facility] of tablet 00:00: mouth at [place] [address] bedtime. Medical [facility] clonazePAM 2020-0 Yes [id number] .5mg Take 1 [facility] 0.5 mg 3-17 tablet by [facility] of tablet 00:00: mouth at [place] [address] bedtime. Medical [facility] clonazePAM 2020-0 Yes [id number] .5mg Take 1 [facility] 0.5 mg 3-17 tablet by [facility] of tablet 00:00: mouth at [place] [address] bedtime. Medical [facility] clonazePAM 2020-0 Yes [id number] .5mg Take 1 [facility] 0.5 mg 3-17 tablet by [facility] of tablet 00:00: mouth at [place] [address] bedtime. [facility] clonazePAM 2020-0 Yes [id number] .5mg Take 1 [facility] 0.5 mg 3-17 tablet by [facility] of tablet 00:00: mouth at [place] [address] bedtime. [facility] clonazePAM 2020-0 Yes [id number] .5mg Take 1 [facility] 0.5 mg 3-17 tablet by [facility] of tablet 00:00: mouth at [place] [address] bedtime. [facility] clonazePAM 2020-0 Yes [id number] .5mg Take 1 [facility] 0.5 mg 3-17 tablet by [facility] of tablet 00:00: mouth at [place] [address] bedtime. [facility] clonazePAM 2020-0 Yes [id number] .5mg Take 1 [facility] 0.5 mg 3-17 tablet by [facility] of tablet 00:00: mouth at [place] [address] bedtime. [facility] clonazePAM 2020-0 Yes [id number] .5mg Take 1 [facility] 0.5 mg 3-17 tablet by [facility] of tablet 00:00: mouth at [place] [address] bedtime. [facility] clonazePAM 2020-0 Yes [id number] .5mg Take 1 [facility] n[facility] 0.5 mg 3-17 tablet by it[facility] of tablet 00:00: mouth at [place] [address] bedtime. [facility] clonazePAM 2020-0 Yes [id number] .5mg Take 1 [facility] n[facility] 0.5 mg 3-17 tablet by [facility] of tablet 00:00: mouth at [place] [address] bedtime. [facility] clonazePAM 2020-0 Yes [id number] .5mg Take 1 [facility] 0.5 mg 3-17 tablet by [facility] of tablet 00:00: mouth at [place] [address] bedtime. [facility] clonazePAM 2020-0 Yes [id number] .5mg Take 1 [facility] 0.5 mg 3-17 tablet by [facility] of tablet 00:00: mouth at [place] [address] bedtime. [facility] clonazePAM 2020-0 Yes [id number] .5mg Take 1 [facility] 0.5 mg 3-17 tablet by [facility] of tablet 00:00: mouth at [place] [address] bedtime. [facility] clonazePAM 2020-0 Yes [id number] .5mg Take 1 [facility] 0.5 mg 3-17 tablet by [facility] of tablet 00:00: mouth at [place] [address] bedtime. Medical [facility] clonazePAM 2020-0 Yes [id number] .5mg Take 1 [facility] 0.5 mg 3-17 tablet by [facility] of tablet 00:00: mouth at [place] [address] bedtime. Medical [facility] clonazePAM 2020-0 Yes [id number] .5mg Take 1 [facility] 0.5 mg 3-17 tablet by [facility] of tablet 00:00: mouth at [place] [address] bedtime. Medical [facility] clonazePAM 2020-0 Yes [id number] .5mg Take 1 [facility] 0.5 mg 3-17 tablet by [facility] of tablet 00:00: mouth at [place] [address] bedtime. Medical Branch clonazePAM 2020-0 Yes [id number] .5mg Take 1 [facility] 0.5 mg 3-17 tablet by [facility] of tablet 00:00: mouth at [place] [address] bedtime. Medical [facility] clonazePAM 2020-0 Yes [id number] .5mg Take 1 [facility] 0.5 mg 3-17 tablet by [facility] of tablet 00:00: mouth at [place] [address] bedtime. Medical [facility] clonazePAM 2020-0 Yes [id number] .5mg Take 1 [facility] 0.5 mg 3-17 tablet by [facility] of tablet 00:00: mouth at [place] [address] bedtime. Medical [facility] clonazePAM 2020-0 Yes [id number] .5mg Take 1 [facility] 0.5 mg 3-17 tablet by [facility] of tablet 00:00: mouth at [place] [address] bedtime. Medical [facility] clonazePAM 2020-0 Yes [id number] .5mg Take 1 [facility] 0.5 mg 3-17 tablet by [facility] of tablet 00:00: mouth at [place] [address] bedtime. Medical [facility] clonazePAM 2020-0 Yes [id number] .5mg Take 1 [facility] 0.5 mg 3-17 tablet by [facility] of tablet 00:00: mouth at [place] [address] bedtime. Medical Branch clonazePAM 2020-0 Yes [id number] .5mg Take 1 [facility] 0.5 mg 3-17 tablet by [facility] of tablet 00:00: mouth at [place] [address] bedtime. Medical [facility] clonazePAM 2020-0 Yes [id number] .5mg Take 1 [facility] 0.5 mg 3-17 tablet by [facility] of tablet 00:00: mouth at [place] [address] bedtime. Medical Branch clonazePAM 2020-0 Yes [id number] .5mg Take 1 [facility] 0.5 mg 3-17 tablet by [facility] of tablet 00:00: mouth at [place] [address] bedtime. Medical Branch clonazePAM 2020-0 Yes [id number] .5mg Take 1 [facility] 0.5 mg 3-17 tablet by [facility] of tablet 00:00: mouth at [place] [address] bedtime. Medical Branch clonazePAM 2020-0 Yes [id number] .5mg Take 1 [facility] 0.5 mg 3-17 tablet by [facility] of tablet 00:00: mouth at [place] [address] bedtime. Medical [facility] clonazePAM 2020-0 Yes [id number] .5mg Take 1 [facility] 0.5 mg 3-17 tablet by [facility] of tablet 00:00: mouth at [place] [address] bedtime. Medical [facility] clonazePAM 2020-0 Yes [id number] .5mg Take 1 [facility] 0.5 mg 3-17 tablet by [facility] of tablet 00:00: mouth at [place] [address] bedtime. Medical Branch clonazePAM 2020-0 Yes [id number] .5mg Take 1 [facility] 0.5 mg 3-17 tablet by [facility] of tablet 00:00: mouth at [place] [address] bedtime. Medical Branch divalproex 2020-0 Yes [id number] 500mg Take 2 [facility] 250 mg 2-24 tablets by [facility] of 24 hr 00:00: mouth at [place] [address] bedtime. Medical Branch divalproex 2020-0 Yes [id number] 500mg Take 2 [facility] 250 mg 2-24 tablets by [facility] of 24 hr 00:00: mouth at [place] tablet 00 bedtime. Medical Branch divalproex 2020-0 Yes [id number] 500mg Take 2 [facility] 250 mg 2-24 tablets by [facility] of 24 hr 00:00: mouth at [place] tablet 00 bedtime. Medical Branch divalproex 2020-0 Yes [id number] 500mg Take 2 [facility] 250 mg 2-24 tablets by [facility] of 24 hr 00:00: mouth at [place] tablet 00 bedtime. Medical Branch divalproex 2020-0 Yes [id number] 500mg Take 2 [facility] 250 mg 2-24 tablets by [facility] of 24 hr 00:00: mouth at [place] tablet 00 bedtime. Medical Branch divalproex 2020-0 Yes [id number] 500mg Take 2 [facility] 250 mg 2-24 tablets by [facility] of 24 hr 00:00: mouth at [place] tablet 00 bedtime. Medical Branch MIRTAZAPINE 2020-0 Yes [id number] TAKE 1 [facility] 7.5 mg 2-14 105 TABLET BY ity of tablet 00:00: MOUTH 00 EVERYDAY Medical AT BEDTIME Branch MIRTAZAPINE 2020-0 Yes [id number] TAKE 1 [facility] 7.5 mg 2-14 105 TABLET BY ity of tablet 00:00: MOUTH 00 EVERYDAY Medical AT [facility] Branch MIRTAZAPINE 2020-0 Yes [id number] TAKE 1 [facility] 7.5 mg 2-14 105 TABLET BY ity of tablet 00:00: MOUTH EVERYDAY Medical AT [facility] Branch MIRTAZAPINE 2020-0 Yes [id number] TAKE 1 [facility] 7.5 mg 2-14 105 TABLET BY ity of tablet 00:00: MOUTH 00 EVERYDAY Medical AT BEDTIME Branch MIRTAZAPINE 2020-0 Yes [id number] TAKE 1 [facility] 7.5 mg 2-14 105 TABLET BY ity of tablet 00:00: MOUTH 00 EVERYDAY Medical AT BEDTIME Branch MIRTAZAPINE 2020-0 Yes [id number] TAKE 1 [facility] 7.5 mg 2-14 105 TABLET BY ity of tablet 00:00: MOUTH 00 EVERYDAY Medical AT BEDTIME Branch MIRTAZAPINE 2020-0 Yes [id number] TAKE 1 [facility] 7.5 mg 2-14 105 TABLET BY ity of tablet 00:00: MOUTH [place] 00 EVERYDAY Medical AT BEDTIME Branch MIRTAZAPINE 2020-0 Yes [id number] TAKE 1 [facility] 7.5 mg 2-14 105 TABLET BY ity of tablet 00:00: MOUTH EVERYDAY Medical AT BEDTIME Branch MIRTAZAPINE 2020-0 Yes [id number] TAKE 1 [facility] 7.5 mg 2-14 105 TABLET BY ity of tablet 00:00: MOUTH EVERYDAY Medical AT BEDTIME Branch MIRTAZAPINE 2020-0 Yes [id number] TAKE 1 [facility] 7.5 mg 2-14 105 TABLET BY ity of tablet 00:00: MOUTH EVERYDAY Medical AT BEDTIME Branch rivaroxaban 2020-0 Yes Take by [facility] vers (XARELTO) 06-08 mouth. ity of 20 mg 16:13: [place] tablet 27 Medical Branch rivaroxaban 2020-0 Yes Take by [facility] vers (XARELTO) 06-08 mouth. ity of 20 mg 16:13: [place] tablet 27 Medical Branch rivaroxaban 2020-0 Yes Take by [facility] vers (XARELTO) 06-08 mouth. ity of 20 mg 16:13: [place] tablet 27 Medical Branch rivaroxaban 2020-0 Yes Take by [facility] vers (XARELTO) 06-08 mouth. ity of 20 mg 16:13: [place] tablet 27 Medical Branch rivaroxaban 2020-0 Yes Take by [facility] vers (XARELTO) 06-08 mouth. ity of 20 mg 16:13: [place] tablet 27 Medical Branch rivaroxaban 2020-0 Yes Take by [facility] vers (XARELTO) 06-08 mouth. ity of 20 mg 16:13: [place] tablet 27 Medical Branch rivaroxaban 2020-0 Yes Take by [facility] vers (XARELTO) 06-08 mouth. ity of 20 mg 16:13: [place] tablet 27 Medical Branch rivaroxaban 2020-0 Yes Take by [facility] vers (XARELTO) 06-08 mouth. ity of 20 mg 16:13: [place] tablet 27 Medical Branch rivaroxaban 2020-0 Yes Take by [facility] vers (XARELTO) 06-08 mouth. ity of 20 mg 16:13: [place] tablet 27 Medical Branch rivaroxaban 2020-0 Yes Take by [facility] vers (XARELTO) 06-08 mouth. ity of 20 mg 16:13: [place] tablet 27 Medical Branch rivaroxaban 2020-0 Yes Take by [facility] vers (XARELTO) 06-08 mouth. ity of 20 mg 16:13: [place] tablet 27 Medical Branch rivaroxaban 2020-0 Yes Take by [facility] vers (XARELTO) 06-08 mouth. ity of 20 mg 16:13: [place] tablet 27 Medical Branch rivaroxaban 2020-0 Yes Take by [facility] vers (XARELTO) 06-08 mouth. ity of 20 mg 16:13: [place] tablet 27 Medical Branch rivaroxaban 2020-0 Yes Take by [facility] vers (XARELTO) 06-08 mouth. ity of 20 mg 16:13: [place] tablet 27 Medical Branch rivaroxaban 2020-0 Yes Take by [facility] vers (XARELTO) 06-08 mouth. ity of 20 mg 16:13: [place] tablet 27 Medical Branch rivaroxaban 2020-0 Yes Take by [facility] vers (XARELTO) 06-08 mouth. ity of 20 mg 16:13: [place] tablet 27 Medical Branch rivaroxaban 2020-0 Yes Take by [facility] vers (XARELTO) 06-08 mouth. ity of 20 mg 16:13: [place] tablet 27 Medical Branch rivaroxaban 2020-0 Yes Take by [facility] vers (XARELTO) 06-08 mouth. ity of 20 mg 16:13: [place] tablet 27 Medical Branch rivaroxaban 2020-0 Yes Take by [facility] vers (XARELTO) 06-08 mouth. ity of 20 mg 16:13: [place] tablet 27 Medical Branch rivaroxaban 2020-0 Yes Take by [facility] vers (XARELTO) 06-08 mouth. ity of 20 mg 16:13: [place] tablet 27 Medical Branch rivaroxaban 2020-0 Yes Take by [facility] vers (XARELTO) 06-08 mouth. ity of 20 mg 16:13: [place] tablet 27 Medical Branch rivaroxaban 2020-0 Yes Take by [facility] vers (XARELTO) 06-08 mouth. ity of 20 mg 16:13: [place] tablet 27 Medical Branch rivaroxaban 2020-0 Yes Take by [facility] vers (XARELTO) 06-08 mouth. ity of 20 mg 16:13: [place] tablet 27 Medical Branch rivaroxaban 2020-0 Yes Take by [facility] vers (XARELTO) 06-08 mouth. ity of 20 mg 16:13: [place] tablet 27 Medical Branch rivaroxaban 2020-0 Yes Take by [facility] vers (XARELTO) 06-08 mouth. ity of 20 mg 16:13: [place] tablet 27 Medical Branch rivaroxaban 2020-0 Yes Take by [facility] vers (XARELTO) 1- mouth. ity of 20 mg 16:13: [place] tablet 27 Medical Branch rivaroxaban 2020-0 Yes Take by [facility] vers (XARELTO) - mouth. ity of 20 mg 16:13: [place] tablet 27 Medical Branch rivaroxaban 2020-0 Yes Take by [facility] vers (XARELTO) 06-08 mouth. ity of 20 mg 16:13: [place] tablet 27 Medical Branch rivaroxaban 2020-0 Yes Take by [facility] vers (XARELTO) 06-08 mouth. ity of 20 mg 16:13: [place] tablet 27 Medical Branch rivaroxaban 2020-0 Yes Take by [facility] vers (XARELTO) 06-08 mouth. ity of 20 mg 16:13: [place] tablet 27 Medical Branch rivaroxaban 2020-0 Yes Take by [facility] vers (XARELTO) 06-08 mouth. ity of 20 mg 16:13: [place] tablet 27 Medical Branch rivaroxaban 2020-0 Yes Take by [facility] vers (XARELTO) 06-08 mouth. ity of 20 mg 16:13: [place] tablet 27 Medical Branch rivaroxaban 2020-0 Yes Take by [facility] vers (XARELTO) 06-08 mouth. ity of 20 mg 16:13: [place] tablet 27 Medical Branch rivaroxaban 2020-0 Yes Take by [facility] vers (XARELTO) 06-08 mouth. ity of 20 mg 16:13: [place] tablet 27 Medical Branch rivaroxaban 2020-0 Yes Take by [facility] vers (XARELTO) 06-08 mouth. ity of 20 mg 16:13: [place] tablet 27 Medical Branch rivaroxaban 2020-0 Yes Take by [facility] vers (XARELTO) 06-08 mouth. ity of 20 mg 16:13: [place] tablet 27 Medical Branch rivaroxaban 2020-0 Yes Take by [facility] vers (XARELTO) 06-08 mouth. ity of 20 mg 16:13: [place] tablet 27 Medical Branch rivaroxaban 2020-0 Yes Take by [facility] vers (XARELTO) -23 mouth. ity of 20 mg 16:13: [place] tablet 27 Medical Branch rivaroxaban 2020-0 Yes Take by [facility] vers (XARELTO) -23 mouth. ity of 20 mg 16:13: [place] tablet 27 Medical Branch rivaroxaban 2020-0 Yes Take by [facility] vers (XARELTO) - mouth. ity of 20 mg 16:13: [place] tablet 27 Medical Branch rivaroxaban 2020-0 Yes Take by [facility] vers (XARELTO) - mouth. ity of 20 mg 16:13: [place] tablet 27 Medical Branch rivaroxaban 2020-0 Yes Take by [facility] vers (XARELTO) 06-08 mouth. ity of 20 mg 16:13: [place] tablet 27 Medical Branch rivaroxaban 2020-0 Yes Take by [facility] vers (XARELTO) 06-08 mouth. ity of 20 mg 16:13: [place] tablet 27 Medical Branch rivaroxaban 2020-0 Yes Take by [facility] vers (XARELTO) 06-08 mouth. ity of 20 mg 16:13: [place] tablet 27 Medical Branch rivaroxaban 2020-0 Yes Take by [facility] vers (XARELTO) 06-08 mouth. ity of 20 mg 16:13: [place] tablet 27 Medical Branch rivaroxaban 2020-0 Yes Take by [facility] vers (XARELTO) 06-08 mouth. ity of 20 mg 16:13: [place] tablet 27 Medical Branch rivaroxaban 2020-0 Yes Take by [facility] vers (XARELTO) 06-08 mouth. ity of 20 mg 16:13: [place] tablet 27 Medical Branch rivaroxaban 2020-0 Yes Take by [facility] vers (XARELTO) 06-08 mouth. ity of 20 mg 16:13: [place] tablet 27 Medical Branch rivaroxaban 2020-0 Yes Take by [facility] vers (XARELTO) 06-08 mouth. ity of 20 mg 16:13: [place] tablet 27 Medical Branch rivaroxaban 2020-0 Yes Take by [facility] vers (XARELTO) 06-08 mouth. ity of 20 mg 16:13: [place] tablet 27 Medical Branch rivaroxaban 2020-0 Yes Take by [facility] vers (XARELTO) 06-08 mouth. ity of 20 mg 16:13: [place] tablet 27 Medical Branch rivaroxaban 2020-0 Yes Take by [facility] vers (XARELTO) 06-08 mouth. ity of 20 mg 16:13: [place] tablet 27 Medical Branch rivaroxaban 2020-0 Yes Take by [facility] vers (XARELTO) -23 mouth. ity of 20 mg 16:13: [place] tablet 27 Medical Branch rivaroxaban 2020-0 Yes Take by [facility] vers (XARELTO) 1-23 mouth. ity of 20 mg 16:13: [place] tablet 27 Medical Branch rivaroxaban 2020-0 Yes Take by [facility] vers (XARELTO) 1-23 mouth. ity of 20 mg 16:13: [place] tablet 27 Medical Branch rivaroxaban 2020-0 Yes Take by [facility] vers (XARELTO) 1-23 mouth. ity of 20 mg 16:13: [place] tablet 27 Medical Branch rivaroxaban 2019-0 Yes Take by [facility] vers (XARELTO) 1-23 mouth. ity of 20 mg 16:13: [place] tablet 27 Medical Branch rivaroxaban 2019-0 Yes Take by [facility] vers (XARELTO) 1-23 mouth. ity of 20 mg 16:13: [place] tablet 27 Medical Branch mirtazapine 2020-0 Yes [id number] 7.5mg Take 1 [facility] 7.5 mg 1-23 105 tablet by ity of tablet 00:00: mouth at [place] [address] bedtime. Medical Branch clonazePAM 2020-0 Yes [id number] .5mg Take 1 [facility] nivers 0.5 mg 1-23 tablet by ity of tablet 00:00: mouth at [place] [address] bedtime. Medical Branch paliperidon 2020-0 Yes [id number] TAKE 1 [facility] e 3 mg 24 1-23 TABLET BY ity o f hour tablet 00:00: MOUTH ONCE [place] 00 DAILY Medical Branch mirtazapine 2020-0 Yes [id number] 7.5mg Take 1 [facility] 7.5 mg 1-23 105 tablet by ity of tablet 00:00: mouth at [place] [address] bedtime. Medical Branch clonazePAM 2020-0 Yes [id number] .5mg Take 1 [facility] nivers 0.5 mg 1-23 tablet by ity of tablet 00:00: mouth at [place] [address] bedtime. Medical Branch paliperidon 2020-0 Yes [id number] TAKE 1 [facility] e 3 mg 24 1-23 TABLET BY ity o f hour tablet 00:00: MOUTH ONCE [place] 00 DAILY Medical Branch mirtazapine 2020-0 Yes [id number] 7.5mg Take 1 [facility] 7.5 mg 1-23 105 tablet by ity of tablet 00:00: mouth at [place] [address] bedtime. Medical Branch clonazePAM 2020-0 Yes [id number] .5mg Take 1 [facility] nivers 0.5 mg 1-23 tablet by ity of tablet 00:00: mouth at [place] [address] bedtime. Medical Branch paliperidon 2020-0 Yes [id number] TAKE 1 [facility] e 3 mg 24 1-23 TABLET BY ity o f hour tablet 00:00: MOUTH ONCE DAILY Medical Branch mirtazapine 2020-0 Yes [id number] 7.5mg Take 1 [facility] 7.5 mg 1-23 105 tablet by ity of tablet 00:00: mouth at [place] [address] bedtime. Medical Branch clonazePAM 2020-0 Yes [id number] .5mg Take 1 [facility] nivers 0.5 mg 1-23 tablet by ity of tablet 00:00: mouth at [place] [address] bedtime. Medical Branch paliperidon 2020-0 Yes [id number] TAKE 1 [facility] e 3 mg 24 1-23 TABLET BY ity o f hour tablet 00:00: MOUTH ONCE DAILY Medical Branch clonazePAM 2020-0 Yes [id number] .5mg Take 1 [facility] nivers 0.5 mg 1-23 tablet by ity of tablet 00:00: mouth at [place] [address] bedtime. Medical Branch paliperidon 2020-0 Yes [id number] TAKE 1 [facility] e 3 mg 24 1-23 TABLET BY ity o f hour tablet 00:00: MOUTH ONCE DAILY Medical Branch clonazePAM 2020-0 Yes [id number] .5mg Take 1 [facility] nivers 0.5 mg 1-23 tablet by ity of tablet 00:00: mouth at [place] [address] bedtime. Medical Branch paliperidon 2020-0 Yes [id number] TAKE 1 [facility] e 3 mg 24 1-23 TABLET BY ity o f hour tablet 00:00: MOUTH ONCE DAILY Medical Branch paliperidon 2020-0 Yes [id number] TAKE 1 [facility] e 3 mg 24 1-23 TABLET BY ity o f hour tablet 00:00: MOUTH ONCE DAILY Medical Branch paliperidon 2020-0 Yes [id number] TAKE 1 [facility] e 3 mg 24 1-23 TABLET BY ity o f hour tablet 00:00: MOUTH ONCE DAILY Medical Branch paliperidon 2020-0 Yes [id number] TAKE 1 [facility] e 3 mg 24 1-23 TABLET BY ity o f hour tablet 00:00: MOUTH ONCE DAILY Medical Branch paliperidon 2020-0 Yes [id number] TAKE 1 [facility] e 3 mg 24 1-23 TABLET BY ity o f hour tablet 00:00: MOUTH ONCE DAILY Medical Branch paliperidon 2019-0 Yes [id number] TAKE 1 [facility] e 3 mg 24 1-23 TABLET BY ity o f hour tablet 00:00: MOUTH ONCE [place] 00 DAILY Medical Branch paliperidon 2019-0 Yes [id number] TAKE 1 [facility] e 3 mg 24 1-23 TABLET BY ity o f hour tablet 00:00: MOUTH ONCE [place] 00 DAILY Medical Branch propranolol 2018-05 Yes [id number] 10mg Take 1 [facility] 10 mg 1-22 tablet by ity of tablet 00:00: mouth 2 00 (two) Medical times Branch daily as needed (tremor). propranolol 2018-05 Yes [id number] 10mg Take 1 [facility] 10 mg 1-22 tablet by ity of tablet 00:00: mouth 2 00 (two) Medical times Branch daily as needed (tremor). propranolol 2018-05 Yes [id number] 10mg Take 1 [facility] 10 mg 1-22 tablet by ity of tablet 00:00: mouth 2 (two) Medical times Branch daily as needed (tremor). propranolol 2018-05 Yes [id number] 10mg Take 1 [facility] 10 mg 1-22 tablet by ity of tablet 00:00: mouth 2 (two) Medical times Branch daily as needed (tremor). propranolol 2018-05 Yes [id number] 10mg Take 1 [facility] 10 mg 1-22 tablet by ity of tablet 00:00: mouth 2 (two) Medical times Branch daily as needed (tremor). propranolol 2018-05 Yes [id number] 10mg Take 1 [facility] 10 mg 1-22 tablet by ity of tablet 00:00: mouth 2 (two) Medical times Branch daily as needed (tremor). propranolol 2018-05 Yes [id number] 10mg Take 1 [facility] 10 mg 1-22 tablet by ity of tablet 00:00: mouth 2 (two) Medical times Branch daily as needed (tremor). propranolol 2018-05 Yes [id number] 10mg Take 1 [facility] 10 mg 1-22 tablet by ity of tablet 00:00: mouth 2 (two) Medical times Branch daily as needed (tremor). propranolol 2018-05 Yes [id number] 10mg Take 1 [facility] 10 mg 1-22 tablet by ity of tablet 00:00: mouth 2 (two) Medical times Branch daily as needed (tremor). propranolol 2018-05 Yes [id number] 10mg Take 1 [facility] 10 mg 1-22 tablet by ity of tablet 00:00: mouth 2 00 (two) Medical times Branch daily as needed (tremor). propranolol 2018-05 Yes [id number] 10mg Take 1 [facility] 10 mg 1-22 tablet by ity of tablet 00:00: mouth 2 00 (two) Medical times Branch daily as needed (tremor). propranolol 2018-05 Yes [id number] 10mg Take 1 [facility] 10 mg 1-22 tablet by ity of tablet 00:00: mouth 2 00 (two) Medical times Branch daily as needed (tremor). propranolol 2018-05 Yes [id number] 10mg Take 1 [facility] 10 mg 1-22 tablet by ity of tablet 00:00: mouth 2 00 (two) Medical times Branch daily as needed (tremor). propranolol 2018-05 Yes [id number] 10mg Take 1 [facility] 10 mg 1-22 tablet by ity of tablet 00:00: mouth 2 (two) Medical times Branch daily as needed (tremor). propranolol 2018-05 Yes [id number] 10mg Take 1 [facility] 10 mg 1-22 tablet by ity of tablet 00:00: mouth 2 (two) Medical times Branch daily as needed (tremor). propranolol 2018-05 Yes [id number] 10mg Take 1 [facility] 10 mg 1-22 tablet by ity of tablet 00:00: mouth 2 00 (two) Medical times Branch daily as needed (tremor). propranolol 2018-05 Yes [id number] 10mg Take 1 [facility] 10 mg 1-22 tablet by ity of tablet 00:00: mouth 2 00 (two) Medical times Branch daily as needed (tremor). propranolol 2018-05 Yes [id number] 10mg Take 1 [facility] 10 mg 1-22 tablet by ity of tablet 00:00: mouth 2 00 (two) Medical times Branch daily as needed (tremor). propranolol 2018-05 Yes [id number] 10mg Take 1 [facility] 10 mg 1-22 tablet by ity of tablet 00:00: mouth 2 00 (two) Medical times Branch daily as needed (tremor). propranolol 2018-05 Yes [id number] 10mg Take 1 [facility] 10 mg 1-22 tablet by ity of tablet 00:00: mouth 2 00 (two) Medical times Branch daily as needed (tremor). propranolol 2018-05 Yes [id number] 10mg Take 1 [facility] 10 mg 0-25 tablet by ity of tablet 00:00: mouth [place] 00 daily. Medical Branch propranolol 2019-1 Yes [id number] 10mg Take 1 [facility] 10 mg 0-25 tablet by ity of tablet 00:00: mouth [place] 00 daily. Medical Branch rivaroxaban Yes Take by [facility] vers (XARELTO) 02-10 mouth. ity of 20 mg 15:21: [place] tablet Medical Branch rivaroxaban Yes Take by [facility] vers (XARELTO) 02-10 mouth. ity of 20 mg 15:21: [place] tablet 28 Medical Branch rivaroxaban Yes Take by [facility] vers (XARELTO) 02-10 mouth. ity of 20 mg 15:21: [place] tablet 28 Medical Branch rivaroxaban Yes Take by [facility] vers (XARELTO) 02-10 mouth. ity of 20 mg 15:21: [place] tablet Medical Branch rivaroxaban Yes Take by [facility] vers (XARELTO) 02-10 mouth. ity of 20 mg 15:21: [place] tablet Medical Branch rivaroxaban Yes Take by [facility] vers (XARELTO) 02-10 mouth. ity of 20 mg 15:21: [place] tablet Medical Branch rivaroxaban Yes Take by [facility] vers (XARELTO) 02-10 mouth. ity of 20 mg 15:21: [place] tablet Medical Branch divalproex Yes [id number] 500mg Take 2 [facility] ER 250 mg 9-10 tablets by ity of 24 hr 00:00: mouth at [place] tablet 00 bedtime. Medical Branch divalproex Yes [id number] 500mg Take 2 [facility] ER 250 mg 9-10 tablets by ity of 24 hr 00:00: mouth at [place] tablet 00 bedtime. [facility] Branch divalproex Yes [id number] 500mg Take 2 [facility] ER 250 mg 9-10 tablets by ity of 24 hr 00:00: mouth at [place] tablet 00 bedtime. Medical Branch divalproex Yes [id number] 500mg Take 2 [facility] ER 250 mg 9-10 tablets by ity of 24 hr 00:00: mouth at [place] tablet 00 bedtime. Medical Branch divalproex Yes [id number] 500mg Take 2 [facility] ER 250 mg 9-10 tablets by ity of 24 hr 00:00: mouth at [place] tablet 00 bedtime. Medical Branch divalproex 2019-0 Yes [id number] 500mg Take 2 [facility] ER 250 mg 9-10 tablets by ity of 24 hr 00:00: mouth at [place] tablet 00 bedtime. Medical Branch divalproex 2018-0 Yes [id number] 500mg Take 2 [facility] ER 250 mg 9-10 tablets by ity of 24 hr 00:00: mouth at [place] tablet 00 bedtime. [facility] Branch divalproex 2018-0 Yes [id number] 500mg Take 2 [facility] ER 250 mg 9-10 tablets by ity of 24 hr 00:00: mouth at [place] tablet 00 bedtime. [facility] Branch divalproex 2018- Yes [id number] 500mg Take 2 [facility] ER 250 mg 9-10 tablets by ity of 24 hr 00:00: mouth at [place] tablet 00 bedtime. [facility] Branch divalproex 2018- Yes [id number] 500mg Take 2 [facility] ER 250 mg 9-10 tablets by ity of 24 hr 00:00: mouth at [place] tablet 00 bedtime. [facility] Branch divalproex Yes [id number] 500mg Take 2 [facility] ER 250 mg 9-10 tablets by ity of 24 hr 00:00: mouth at [place] tablet 00 bedtime. [facility] Branch divalproex Yes [id number] 500mg Take 2 [facility] ER 250 mg 9-10 tablets by ity of 24 hr 00:00: mouth at [place] tablet 00 bedtime. [facility] Branch divalproex Yes [id number] 500mg Take 2 [facility] ER 250 mg 9-10 tablets by ity of 24 hr 00:00: mouth at [place] tablet 00 bedtime. [facility] Branch divalproex 2018-0 Yes [id number] 500mg Take 2 [facility] ER 250 mg 9-10 tablets by ity of 24 hr 00:00: mouth at [place] tablet 00 bedtime. [facility] Branch divalproex 2018-0 Yes [id number] 500mg Take 2 [facility] ER 250 mg 9-10 tablets by ity of 24 hr 00:00: mouth at [place] tablet 00 bedtime. [facility] Branch divalproex 2018-0 Yes [id number] 500mg Take 2 [facility] ER 250 mg 9-10 tablets by ity of 24 hr 00:00: mouth at [place] tablet 00 bedtime. [facility] Branch divalproex 2018-0 Yes [id number] 500mg Take 2 [facility] ER 250 mg 9-10 tablets by ity of 24 hr 00:00: mouth at [place] tablet 00 bedtime. [facility] Branch divalproex 2019-0 Yes [id number] 500mg Take 2 [facility] ER 250 mg 9-10 tablets by ity of 24 hr 00:00: mouth at [place] tablet 00 bedtime. [facility] Branch divalproex 2018-0 Yes [id number] 500mg Take 2 [facility] ER 250 mg 9-10 tablets by ity of 24 hr 00:00: mouth at [place] tablet 00 bedtime. [facility] Branch divalproex 0 Yes [id number] 500mg Take 2 [facility] ER 250 mg 9-10 tablets by ity of 24 hr 00:00: mouth at [place] tablet 00 bedtime. [facility] divalproex 0 Yes [id number] 500mg Take 2 [facility] ER 250 mg 9-10 tablets by [facility] of 24 hr 00:00: mouth at [place] tablet 00 bedtime. [facility] TOPIRAMATE 0 Yes [id number] TAKE 1 [facility] 25 mg 8-28 TABLET BY [facility]y of tablet 00:00: MOUTH TWO [place] TIMES Medical DAILY Branch TOPIRAMATE 0 Yes [id number] TAKE 1 [facility] 25 mg 8-28 TABLET BY ity of tablet 00:00: MOUTH TWO [place] [facility] DAILY Branch TOPIRAMATE 0 Yes [id number] TAKE 1 [facility] 25 mg 8-28 TABLET BY ity of tablet 00:00: MOUTH TWO [place] [facility] DAILY Branch TOPIRAMATE 0 Yes [id number] TAKE 1 [facility] 25 mg 8-28 TABLET BY ity of tablet 00:00: MOUTH TWO [place] [facility] DAILY Branch TOPIRAMATE 2018-0 Yes [id number] TAKE 1 [facility] 25 mg 8-28 TABLET BY it[facility] of tablet 00:00: MOUTH TWO [place] [facility] DAILY Branch TOPIRAMATE 2018-0 Yes [id number] TAKE 1 [facility] 25 mg 8-28 TABLET BY ity of tablet 00:00: MOUTH TWO [place] TIMES Medical DAILY Branch TOPIRAMATE 2018-0 Yes [id number] TAKE 1 [facility] 25 mg 8-28 TABLET BY ity of tablet 00:00: MOUTH TWO [place] TIMES Medical DAILY Branch TOPIRAMATE 2018-0 Yes [id number] TAKE 1 [facility] 25 mg 8-28 TABLET BY ity of tablet 00:00: MOUTH TWO [place] [facility] DAILY Branch TOPIRAMATE Yes [id number] TAKE 1 [facility] 25 mg 8-28 TABLET BY ity of tablet 00:00: MOUTH TWO [place] [facility] DAILY Branch TOPIRAMATE 20190 Yes [id number] TAKE 1 [facility] 25 mg 8-28 TABLET BY ity of tablet 00:00: MOUTH TWO [place] [facility] DAILY Branch TOPIRAMATE 0 Yes [id number] TAKE 1 [facility] 25 mg 8-28 TABLET BY ity of tablet 00:00: MOUTH TWO [place] [facility] DAILY Branch TOPIRAMATE 0 Yes [id number] TAKE 1 [facility] 25 mg 8-28 TABLET BY ity of tablet 00:00: MOUTH TWO [place] [facility] DAILY Branch TOPIRAMATE Yes [id number] TAKE 1 [facility] 25 mg 8-28 TABLET BY ity of tablet 00:00: MOUTH TWO [place] [facility] DAILY Branch TOPIRAMATE Yes [id number] TAKE 1 [facility] 25 mg 8-28 TABLET BY ity of tablet 00:00: MOUTH TWO [place] [facility] DAILY Branch TOPIRAMATE 2019 Yes [id number] TAKE 1 [facility] 25 mg 8-28 TABLET BY ity of tablet 00:00: MOUTH TWO [place] [facility] DAILY Branch TOPIRAMATE Yes [id number] TAKE 1 [facility] 25 mg 8-28 TABLET BY ity of tablet 00:00: MOUTH TWO [place] [facility] DAILY Branch TOPIRAMATE 0 Yes [id number] TAKE 1 [facility] 25 mg 8-28 TABLET BY ity of tablet 00:00: MOUTH TWO [place] [facility] DAILY Branch TOPIRAMATE 0 2020- No [id number] TAKE 1 [facility] 25 mg 8-28 04-22 TABLET BY ity of tablet 00:00: 00:00 MOUTH TWO [place] 00 :00 TIMES Medical DAILY Branch paliperidon 2019-0 Yes [id number] TAKE 1 [facility] e 3 mg 24 8-07 TABLET BY ity o f hour tablet 00:00: MOUTH ONCE [place] DAILY [facility] PALIPERIDON 2019-0 Yes [id number] TAKE 1 [facility] E 3 mg 24 8-07 TABLET BY ity o f hour tablet 00:00: MOUTH ONCE [place] DAILY [facility] paliperidon 2019-0 Yes [id number] TAKE 1 [facility] e 3 mg 24 8-07 TABLET BY ity o f hour tablet 00:00: MOUTH ONCE [place] [facility] PALIPERIDON 2018-0 Yes [id number] TAKE 1 [facility] E 3 mg 24 8-07 TABLET BY ity o f hour tablet 00:00: MOUTH ONCE DAILY [facility] paliperidon 2019- Yes [id number] TAKE 1 [facility] e 3 mg 24 8-07 TABLET BY ity o f hour tablet 00:00: MOUTH ONCE DAILY [facility] PALIPERIDON 2019 Yes [id number] TAKE 1 [facility] E 3 mg 24 8-07 TABLET BY ity o f hour tablet 00:00: MOUTH ONCE DAILY [facility] paliperidon 2019 Yes [id number] TAKE 1 [facility] e 3 mg 24 8-07 TABLET BY ity o f hour tablet 00:00: MOUTH ONCE DAILY [facility] PALIPERIDON 2019 Yes [id number] TAKE 1 [facility] E 3 mg 24 8-07 TABLET BY ity o f hour tablet 00:00: MOUTH ONCE DAILY [facility] paliperidon 2019 Yes [id number] TAKE 1 [facility] e 3 mg 24 8-07 TABLET BY ity o f hour tablet 00:00: MOUTH ONCE DAILY [facility] PALIPERIDON 2019 Yes [id number] TAKE 1 [facility] E 3 mg 24 8-07 TABLET BY ity o f hour tablet 00:00: MOUTH ONCE DAILY [facility] paliperidon 2019 Yes [id number] TAKE 1 [facility] e 3 mg 24 8-07 TABLET BY ity o f hour tablet 00:00: MOUTH ONCE DAILY [facility] PALIPERIDON 2019 Yes [id number] TAKE 1 [facility] E 3 mg 24 8-07 TABLET BY ity o f hour tablet 00:00: MOUTH ONCE DAILY [facility] paliperidon 2019 Yes [id number] TAKE 1 [facility] e 3 mg 24 8-07 TABLET BY ity o f hour tablet 00:00: MOUTH ONCE DAILY [facility] PALIPERIDON 2019- Yes [id number] TAKE 1 [facility] E 3 mg 24 8-07 TABLET BY ity o f hour tablet 00:00: MOUTH ONCE DAILY [facility] paliperidon 2019- Yes [id number] TAKE 1 [facility] e 3 mg 24 8-07 TABLET BY ity o f hour tablet 00:00: MOUTH ONCE DAILY [facility] PALIPERIDON 2019 Yes [id number] TAKE 1 [facility] E 3 mg 24 8-07 TABLET BY ity o f hour tablet 00:00: MOUTH ONCE DAILY [facility] paliperidon 2019- Yes [id number] TAKE 1 [facility] e 3 mg 24 8-07 TABLET BY ity o f hour tablet 00:00: MOUTH ONCE DAILY [facility] PALIPERIDON 2019 Yes [id number] TAKE 1 [facility] E 3 mg 24 8-07 TABLET BY ity o f hour tablet 00:00: MOUTH ONCE DAILY [facility] paliperidon 2019 Yes [id number] TAKE 1 [facility] e 3 mg 24 8-07 TABLET BY ity o f hour tablet 00:00: MOUTH ONCE DAILY [facility] PALIPERIDON 2019 Yes [id number] TAKE 1 [facility] E 3 mg 24 8-07 TABLET BY ity o f hour tablet 00:00: MOUTH ONCE DAILY [facility] paliperidon 2019- Yes [id number] TAKE 1 [facility] e 3 mg 24 8-07 TABLET BY ity o f hour tablet 00:00: MOUTH ONCE DAILY [facility] PALIPERIDON 2019 Yes [id number] TAKE 1 [facility] E 3 mg 24 8-07 TABLET BY ity o f hour tablet 00:00: MOUTH ONCE DAILY [facility] paliperidon 2019 Yes [id number] TAKE 1 [facility] e 3 mg 24 8-07 TABLET BY ity o f hour tablet 00:00: MOUTH ONCE DAILY [facility] PALIPERIDON 2019- Yes [id number] TAKE 1 [facility] E 3 mg 24 8-07 TABLET BY ity o f hour tablet 00:00: MOUTH ONCE DAILY [facility] paliperidon 2019 Yes [id number] TAKE 1 [facility] e 3 mg 24 8-07 TABLET BY ity o f hour tablet 00:00: MOUTH ONCE DAILY [facility] paliperidon 2019 Yes [id number] TAKE 1 [facility] e 3 mg 24 8-07 TABLET BY ity o f hour tablet 00:00: MOUTH ONCE DAILY [facility] paliperidon 2019- Yes [id number] TAKE 1 [facility] e 3 mg 24 8-07 TABLET BY ity o f hour tablet 00:00: MOUTH ONCE DAILY [facility] paliperidon 2019 Yes [id number] TAKE 1 [facility] e 3 mg 24 8-07 TABLET BY ity o f hour tablet 00:00: MOUTH ONCE DAILY [facility] PALIPERIDON 2019 Yes [id number] TAKE 1 [facility] E 3 mg 24 8-07 TABLET BY ity o f hour tablet 00:00: MOUTH ONCE [place] 00 DAILY [facility] Branch clonazePAM 2019-0 Yes [id number] .5mg Take 2 [facility] 0.25 mg 7-26 105 tablets by ity of disintegrat 00:00: mouth at [place] ing tablet 00 bedtime. Medic al [facility] clonazePAM 2019-0 Yes [id number] .5mg Take 2 [facility] 0.25 mg 7-26 105 tablets by ity of disintegrat 00:00: mouth [place] ing tablet 00 bedtime. [facility] clonazePAM 2018-0 Yes [id number] .5mg Take 2 [facility] 0.25 mg 7-26 105 tablets by ity of disintegrat 00:00: mouth [place] ing tablet 00 bedtime. [facility] clonazePAM 2018-0 Yes [id number] .5mg Take 2 [facility] 0.25 mg 7-26 105 tablets by it[facility] of disintegrat 00:00: mouth [place] ing tablet 00 bedtime. [facility] clonazePAM 2018-0 Yes [id number] .5mg Take 2 [facility] 0.25 mg 7-26 105 tablets by ity of disintegrat 00:00: mouth [place] ing tablet 00 bedtime. [facility] clonazePAM 2018-0 Yes [id number] .5mg Take 2 [facility] 0.25 mg 7-26 105 tablets by ity of disintegrat 00:00: mouth [place] ing tablet 00 bedtime. [facility] clonazePAM 2018-0 Yes [id number] .5mg Take 2 [facility] 0.25 mg 7-26 105 tablets by it[facility] of disintegrat 00:00: mouth [place] ing tablet 00 bedtime. [facility] clonazePAM 2018-0 Yes [id number] .5mg Take 2 [facility] 0.25 mg 7-26 105 tablets by ity of disintegrat 00:00: mouth [place] ing tablet 00 bedtime. [facility] clonazePAM 2018-0 Yes [id number] .5mg Take 2 [facility] 0.25 mg 7-26 105 tablets by ity of disintegrat 00:00: mouth [place] ing tablet 00 bedtime. [facility] clonazePAM 2018-0 Yes [id number] .5mg Take 2 [facility] 0.25 mg 7-26 105 tablets by ity of disintegrat 00:00: mouth [place] tablet 00 bedtime. [facility] clonazePAM 2019-0 Yes [id number] .5mg Take 2 [facility] 0.25 mg 7-26 105 tablets by ity of disintegrat 00:00: mouth [place] tablet 00 bedtime. [facility] clonazePAM 2019-0 Yes [id number] .5mg Take 2 [facility] 0.25 mg 7-26 105 tablets by ity of disintegrat 00:00: mouth [place] tablet 00 bedtime. [facility] clonazePAM 2019-0 Yes [id number] .5mg Take 2 [facility] 0.25 mg 7-26 105 tablets by ity of disintegrat 00:00: mouth [place] tablet 00 bedtime. [facility] clonazePAM 2019-0 Yes [id number] .5mg Take 2 [facility] 0.25 mg 7-26 105 tablets by ity of disintegrat 00:00: mouth [place] tablet 00 bedtime. [facility] clonazePAM 2019-0 Yes [id number] .5mg Take 2 [facility] 0.25 mg 7-26 105 tablets by ity of disintegrat 00:00: mouth [place] tablet 00 bedtime. [facility] clonazePAM 2019-0 Yes [id number] .5mg Take 2 [facility] 0.25 mg 7-26 105 tablets by ity of disintegrat 00:00: [place] tablet 00 bedtime. [facility] spironolact 2019-0 Yes Univer s one 25 mg 4-11 ity of tablet 00:00: [place] [facility] spironolact 2019-0 Yes Univer s one 25 mg 4-11 ity of tablet 00:00: [place] [facility] spironolact 2019-0 Yes Univer s one 25 mg 4-11 ity of tablet 00:00: [place] [facility] spironolact 2019-0 Yes Univer s one 25 mg 4-11 ity of tablet 00:00: [place] [facility] spironolact 2019-0 Yes Univer s one 25 mg 4-11 ity of tablet 00:00: [address] spironolact 2019-0 Yes Univer s one 25 mg 4-11 ity of tablet 00:00: [address] spironolact 2019-0 Yes Univer s one 25 mg 4-11 ity of tablet 00:00: [place] 00 [facility] spironolact 2019-0 Yes Univer s one 25 mg 4-11 ity of tablet 00:00: [place] 00 [facility] spironolact 2019-0 Yes Univer s one 25 mg 4-11 ity of tablet 00:00: [place] 00 [facility] spironolact 2019-0 Yes Univer s one 25 mg 4-11 ity of tablet 00:00: [place] 00 [facility] Branch spironolact 2019-0 Yes Univer s one 25 mg 4-11 ity of tablet 00:00: [place] 00 [facility] Branch spironolact 2019-0 Yes Univer s one 25 mg 4-11 ity of tablet 00:00: [place] 00 [facility] spironolact 2019-0 Yes Univer s one 25 mg 4-11 ity of tablet 00:00: [place] [address] Medical Branch spironolact 2019-0 Yes Univer s one 25 mg 4-11 ity of tablet 00:00: [place] [address] Medical Branch spironolact 2019-0 Yes Univer s one 25 mg 4-11 ity of tablet 00:00: [place] [address] Medical Branch spironolact 2019-0 Yes Univer s one 25 mg 4-11 ity of tablet 00:00: [place] [address] Medical Branch spironolact 2019-0 Yes Univer s one 25 mg 4-11 ity of tablet 00:00: [place] 00 [facility] Branch spironolact 2019-0 Yes Univer s one 25 mg 4-11 ity of tablet 00:00: [place] 00 [facility] spironolact 2019-0 Yes Univer s one 25 mg 4-11 ity of tablet 00:00: [place] 00 [facility] spironolact 2019-0 Yes Univer s one 25 mg 4-11 ity of tablet 00:00: [place] 00 [facility] spironolact 2019-0 Yes Univer s one 25 mg 4-11 ity of tablet 00:00: [place] 00 [facility] spironolact 2019-0 Yes Univer s one 25 mg 4-11 ity of tablet 00:00: [place] [address] Medical Branch spironolact 2019-0 Yes Univer s one 25 mg 4-11 ity of tablet 00:00: [place] 00 [facility] spironolact 2019-0 Yes Univer s one 25 mg 4-11 ity of tablet 00:00: [place] 00 [facility] spironolact 2019-0 Yes Un[facility] s one 25 mg 4-11 ity of tablet 00:00: [place] 00 [facility] spironolact 2019-0 Yes Univer s one 25 mg 4-11 ity of tablet 00:00: [place] 00 [facility] spironolact 2019-0 Yes Univer s one 25 mg 4-11 ity of tablet 00:00: [place] 00 [facility] spironolact 2019-0 Yes Univer s one 25 mg 4-11 ity of tablet 00:00: [place] 00 [facility] spironolact 2019-0 Yes Univer s one 25 mg 4-11 ity of tablet 00:00: [place] [address] Medical Branch spironolact 2019-0 Yes Univer s one 25 mg 4-11 ity of tablet 00:00: [place] [address] Medical Branch spironolact 2019-0 Yes Univer s one 25 mg 4-11 ity of tablet 00:00: [place] [address] [facility] Branch spironolact 2019-0 Yes Univer s one 25 mg 4-11 ity of tablet 00:00: [place] [address] Medical Branch spironolact 2019-0 Yes Un[facility] s one 25 mg 4-11 ity of tablet 00:00: [place] [address] Medical Branch spironolact 2019-0 Yes Univer s one 25 mg 4-11 ity of tablet 00:00: [place] [address] Medical Branch spironolact 2019-0 Yes Univer s one 25 mg 4-11 ity of tablet 00:00: [place] [address] Medical Branch spironolact 2019-0 Yes Univer s one 25 mg 4-11 ity of tablet 00:00: [place] [address] Medical Branch spironolact 2019-0 Yes Univer s one 25 mg 4-11 ity of tablet 00:00: [place] [address] Medical Branch spironolact 2019-0 Yes Univer s one 25 mg 4-11 ity of tablet 00:00: [place] [address] Medical Branch spironolact 2019-0 Yes Univer s one 25 mg 4-11 ity of tablet 00:00: [place] [address] Medical Branch spironolact 2019-0 Yes Univer s one 25 mg 4-11 ity of tablet 00:00: [place] [address] Medical Branch spironolact 2019-0 Yes Univer s one 25 mg 4-11 ity of tablet 00:00: [place] 00 [facility] Branch spironolact 2019-0 Yes Univer s one 25 mg 4-11 ity of tablet 00:00: [place] 00 [facility] Branch spironolact 2019-0 Yes Univer s one 25 mg 4-11 ity of tablet 00:00: [place] 00 [facility] Branch spironolact 2019-0 Yes Univer s one 25 mg 4-11 ity of tablet 00:00: [place] 00 [facility] Branch spironolact 2019-0 Yes Univer s one 25 mg 4-11 ity of tablet 00:00: [place] 00 [facility] Branch spironolact 2019-0 Yes Univer s one 25 mg 4-11 ity of tablet 00:00: [place] [address] Medical Branch spironolact 2019-0 Yes Univer s one 25 mg 4-11 ity of tablet 00:00: [place] [address] Medical Branch spironolact 2019-0 Yes Univer s one 25 mg 4-11 ity of tablet 00:00: [place] [address] [facility] Branch spironolact 2019-0 Yes Univer s one 25 mg 4-11 ity of tablet 00:00: [place] [address] [facility] Branch spironolact 2019-0 Yes Univer s one 25 mg 4-11 ity of tablet 00:00: [place] [address] Medical Branch spironolact 2019-0 Yes Univer s one 25 mg 4-11 ity of tablet 00:00: [place] [address] Medical Branch spironolact 2019-0 Yes Univer s one 25 mg 4-11 ity of tablet 00:00: [place] [address] Medical Branch spironolact 2019-0 Yes Univer s one 25 mg 4-11 ity of tablet 00:00: [place] 00 [facility] Branch spironolact 2019-0 Yes Univer s one 25 mg 4-11 ity of tablet 00:00: [place] [address] [facility] Branch spironolact 2019-0 Yes Univer s one 25 mg 4-11 ity of tablet 00:00: [place] [address] [facility] Branch spironolact 2019-0 Yes Univer s one 25 mg 4-11 ity of tablet 00:00: [place] [address] [facility] Branch spironolact 2019-0 Yes Univer s one 25 mg 4-11 ity of tablet 00:00: [place] [address] [facility] Branch spironolact 2019-0 Yes Univer s one 25 mg 4-11 ity of tablet 00:00: [place] 00 [facility] Branch spironolact 2019-0 Yes Univer s one 25 mg 4-11 ity of tablet 00:00: [place] 00 [facility] Branch spironolact 2019-0 Yes Univer s one 25 mg 4-11 ity of tablet 00:00: [place] 00 [facility] spironolact 2019-0 Yes Univer s one 25 mg 4-11 ity of tablet 00:00: [place] 00 [facility] spironolact 2019-0 Yes Univer s one 25 mg 4-11 ity of tablet 00:00: [place] 00 [facility] spironolact 2019-0 Yes Univer s one 25 mg 4-11 ity of tablet 00:00: [place] [address] Medical Branch spironolact 2019-0 Yes Univer s one 25 mg 4-11 ity of tablet 00:00: [place] 00 [facility] Branch spironolact 2019-0 Yes Univer s one 25 mg 4-11 ity of tablet 00:00: [place] [address] [facility] Branch spironolact 2019-0 Yes Univer s one 25 mg 4-11 ity of tablet 00:00: [place] 00 [facility] spironolact 2019-0 Yes Univer s one 25 mg 4-11 ity of tablet 00:00: [place] [address] [facility] Branch spironolact 2019-0 Yes Univer s one 25 mg 4-11 ity of tablet 00:00: [place] 00 [facility] spironolact 2019-0 Yes Univer s one 25 mg 4-11 ity of tablet 00:00: [place] [address] [facility] Branch spironolact 2019-0 Yes Univer s one 25 mg 4-11 ity of tablet 00:00: [place] 00 [facility] spironolact 2019-0 Yes Univer s one 25 mg 4-11 ity of tablet 00:00: [place] 00 [facility] Branch spironolact 2019-0 Yes Univer s one 25 mg 4-11 ity of tablet 00:00: [place] 00 [facility] spironolact 2019-0 Yes Univer s one 25 mg 4-11 ity of tablet 00:00: [place] 00 [facility] spironolact 2019-0 Yes Univer s one 25 mg 4-11 ity of tablet 00:00: [place] [address] [facility] Branch spironolact 2019-0 Yes Univer s one 25 mg 4-11 ity of tablet 00:00: [place] 00 [facility] spironolact 2019-0 Yes Univer s one 25 mg 4-11 ity of tablet 00:00: [place] [facility] spironolact 2019-0 Yes Univer s one 25 mg 4-11 ity of tablet 00:00: [place] [facility] spironolact 2019-0 Yes Univer s one 25 mg 4-11 ity of tablet 00:00: [place] [address] [facility] Branch spironolact 2019-0 Yes Univer s one 25 mg 4-11 ity of tablet 00:00: [place] [facility] spironolact 2019-0 Yes Univer s one 25 mg 4-11 ity of tablet 00:00: [place] [address] Medical Branch tamsulosin 2019-0 Yes [facility] 0.4 mg 24 4-09 ity of hr capsule 00:00: [place] [facility] tamsulosin 2019-0 Yes [facility] 0.4 mg 24 4-09 ity of hr capsule 00:00: [place] [address] Medical Branch tamsulosin 2019-0 Yes [facility] 0.4 mg 24 4-09 ity of hr capsule 00:00: [place] [facility] tamsulosin 2019-0 Yes [facility] 0.4 mg 24 4-09 ity of hr capsule 00:00: [place] [address] [facility] Branch tamsulosin 2019-0 Yes [facility] 0.4 mg 24 4-09 ity of hr capsule 00:00: [place] [facility] tamsulosin 2019-0 Yes [facility] 0.4 mg 24 4-09 ity of hr capsule 00:00: [place] [facility] tamsulosin 2019-0 Yes [facility] 0.4 mg 24 4-09 ity of hr capsule 00:00: [place] [facility] tamsulosin 2019-0 Yes [facility] 0.4 mg 24 4-09 ity of hr capsule 00:00: [place] [facility] tamsulosin 2019-0 Yes [facility] 0.4 mg 24 4-09 ity of hr capsule 00:00: [place] [address] Medical Branch tamsulosin 2019-0 Yes [facility] 0.4 mg 24 4-09 ity of hr capsule 00:00: [place] [facility] tamsulosin 2019-0 Yes [facility] 0.4 mg 24 4-09 ity of hr capsule 00:00: [place] [address] Medical Branch tamsulosin 2019-0 Yes [facility] 0.4 mg 24 4-09 ity of hr capsule 00:00: [place] [address] Medical Branch tamsulosin 2019-0 Yes [facility] 0.4 mg 24 4-09 ity of hr capsule 00:00: [place] [facility] tamsulosin 2019-0 Yes [facility] 0.4 mg 24 4-09 ity of hr capsule 00:00: [place] [facility] tamsulosin 2019-0 Yes [facility] 0.4 mg 24 4-09 ity of hr capsule 00:00: [place] [facility] tamsulosin 2019-0 Yes [facility] 0.4 mg 24 4-09 ity of hr capsule 00:00: [place] [facility] tamsulosin 2019-0 Yes [facility] 0.4 mg 24 4-09 ity of hr capsule 00:00: [place] [facility] tamsulosin 2019-0 Yes [facility] 0.4 mg 24 4-09 ity of hr capsule 00:00: [place] [facility] tamsulosin 2019-0 Yes [facility] 0.4 mg 24 4-09 ity of hr capsule 00:00: [place] [facility] tamsulosin 2019-0 Yes [facility] 0.4 mg 24 4-09 ity of hr capsule 00:00: [place] [facility] tamsulosin 2019-0 Yes [facility] 0.4 mg 24 4-09 ity of hr capsule 00:00: [place] [facility] tamsulosin 2019-0 Yes [facility] 0.4 mg 24 4-09 ity of hr capsule 00:00: [place] [address] [facility] Branch tamsulosin 2019-0 Yes [facility] 0.4 mg 24 4-09 ity of hr capsule 00:00: [place] [facility] tamsulosin 2019-0 Yes [facility] 0.4 mg 24 4-09 ity of hr capsule 00:00: [place] [facility] tamsulosin 2019-0 Yes [facility] 0.4 mg 24 4-09 ity of hr capsule 00:00: [place] [facility] tamsulosin 2019-0 Yes [facility] 0.4 mg 24 4-09 ity of hr capsule 00:00: [place] [facility] tamsulosin 2019-0 Yes [facility] 0.4 mg 24 4-09 ity of hr capsule 00:00: [place] [address] Medical Branch tamsulosin 2019-0 Yes [facility] 0.4 mg 24 4-09 ity of hr capsule 00:00: [place] [address] [facility] Branch tamsulosin 2019-0 Yes [facility] 0.4 mg 24 4-09 ity of hr capsule 00:00: [place] [address] [facility] Branch tamsulosin 2019-0 Yes [facility] 0.4 mg 24 4-09 ity of hr capsule 00:00: [place] [facility] tamsulosin 2019-0 Yes [facility] 0.4 mg 24 4-09 ity of hr capsule 00:00: [place] [facility] tamsulosin 2019-0 Yes [facility] 0.4 mg 24 4-09 ity of hr capsule 00:00: [place] [facility] tamsulosin 2019-0 Yes [facility] 0.4 mg 24 4-09 ity of hr capsule 00:00: [place] [facility] tamsulosin 2019-0 Yes [facility] 0.4 mg 24 4-09 ity of hr capsule 00:00: [place] [facility] tamsulosin 2019-0 Yes [facility] 0.4 mg 24 4-09 ity of hr capsule 00:00: [place] [facility] tamsulosin 2019-0 Yes [facility] 0.4 mg 24 4-09 ity of hr capsule 00:00: [place] [facility] tamsulosin 2019-0 Yes [facility] 0.4 mg 24 4-09 ity of hr capsule 00:00: [place] [facility] tamsulosin 2019-0 Yes [facility] 0.4 mg 24 4-09 ity of hr capsule 00:00: [place] [facility] tamsulosin 2019-0 Yes [facility] 0.4 mg 24 4-09 ity of hr capsule 00:00: [place] [facility] tamsulosin 2019-0 Yes [facility] 0.4 mg 24 4-09 ity of hr capsule 00:00: [place] [facility] tamsulosin 2019-0 Yes [facility] 0.4 mg 24 4-09 ity of hr capsule 00:00: [place] [facility] tamsulosin 2019-0 Yes [facility] 0.4 mg 24 4-09 ity of hr capsule 00:00: [place] [facility] tamsulosin 2019-0 Yes [facility] 0.4 mg 24 4-09 ity of hr capsule 00:00: [place] [facility] tamsulosin 2019-0 Yes [facility] 0.4 mg 24 4-09 ity of hr capsule 00:00: [place] [facility] tamsulosin 2019-0 Yes [facility] 0.4 mg 24 4-09 ity of hr capsule 00:00: [place] [facility] tamsulosin 2019-0 Yes [facility] 0.4 mg 24 4-09 ity of hr capsule 00:00: [place] [facility] tamsulosin 2019-0 Yes [facility] 0.4 mg 24 4-09 ity of hr capsule 00:00: [place] [address] [facility] Branch tamsulosin 2019-0 Yes [facility] 0.4 mg 24 4-09 ity of hr capsule 00:00: [place] [facility] tamsulosin 2019-0 Yes [facility] 0.4 mg 24 4-09 ity of hr capsule 00:00: [place] [facility] tamsulosin 2019-0 Yes [facility] 0.4 mg 24 4-09 ity of hr capsule 00:00: [place] [facility] tamsulosin 2019-0 Yes [facility] 0.4 mg 24 4-09 ity of hr capsule 00:00: [place] [facility] tamsulosin 2019-0 Yes [facility] 0.4 mg 24 4-09 ity of hr capsule 00:00: [place] [facility] tamsulosin 2019-0 Yes [facility] 0.4 mg 24 4-09 ity of hr capsule 00:00: [place] [facility] tamsulosin 2019-0 Yes [facility] 0.4 mg 24 4-09 ity of hr capsule 00:00: [place] [facility] tamsulosin 2019-0 Yes [facility] 0.4 mg 24 4-09 ity of hr capsule 00:00: [place] [facility] tamsulosin 2019-0 Yes [facility] 0.4 mg 24 4-09 ity of hr capsule 00:00: [place] [facility] tamsulosin 2019-0 Yes [facility] 0.4 mg 24 4-09 ity of hr capsule 00:00: [place] [facility] tamsulosin 2019-0 Yes [facility] 0.4 mg 24 4-09 ity of hr capsule 00:00: [place] [facility] tamsulosin 2019-0 Yes [facility] 0.4 mg 24 4-09 ity of hr capsule 00:00: [place] [facility] tamsulosin 2019-0 Yes [facility] 0.4 mg 24 4-09 ity of hr capsule 00:00: [place] [facility] tamsulosin 2019-0 Yes [facility] 0.4 mg 24 4-09 ity of hr capsule 00:00: [place] [facility] tamsulosin 2019-0 Yes [facility] 0.4 mg 24 4-09 ity of hr capsule 00:00: [place] [facility] tamsulosin 2019-0 Yes [facility] 0.4 mg 24 4-09 ity of hr capsule 00:00: [place] [address] [facility] Branch tamsulosin 2019-0 Yes [facility] 0.4 mg 24 4-09 ity of hr capsule 00:00: [place] [facility] tamsulosin 2019-0 Yes [facility] 0.4 mg 24 4-09 ity of hr capsule 00:00: [place] [facility] tamsulosin 2019-0 Yes [facility] 0.4 mg 24 4-09 ity of hr capsule 00:00: [place] [facility] tamsulosin 2019-0 Yes [facility] 0.4 mg 24 4-09 ity of hr capsule 00:00: [place] [facility] tamsulosin 2019-0 Yes [facility] 0.4 mg 24 4-09 ity of hr capsule 00:00: [place] [facility] tamsulosin 2019-0 Yes [facility] 0.4 mg 24 4-09 ity of hr capsule 00:00: [place] [facility] tamsulosin 2019-0 Yes [facility] 0.4 mg 24 4-09 ity of hr capsule 00:00: [facility] [place] [facility] tamsulosin 2019-0 Yes Univers 0.4 mg 24 4-09 ity of hr capsule 00:00: [place] [address] [facility] tamsulosin 2019-0 Yes Univers 0.4 mg 24 4-09 ity of hr capsule 00:00: [facility] tamsulosin 2019-0 Yes Univers 0.4 mg 24 4-09 ity of hr capsule 00:00: [facility] [place] [facility] tamsulosin 2019-0 Yes Univers 0.4 mg 24 4-09 ity of hr capsule 00:00: [facility] tamsulosin 2019-0 Yes Univers 0.4 mg 24 4-09 ity of hr capsule 00:00: [facility] tamsulosin 2019-0 Yes Univers 0.4 mg 24 4-09 ity of hr capsule 00:00: [facility] [place] [facility] tamsulosin 2019-0 Yes Univers 0.4 mg 24 4-09 ity of hr capsule 00:00: [facility] tamsulosin 2019-0 Yes Univers 0.4 mg 24 4-09 ity of hr capsule 00:00: [facility] [place] [facility] tamsulosin 2019-0 Yes Univers 0.4 mg 24 4-09 ity of hr capsule 00:00: [facility] tamsulosin 2019-0 Yes Univers 0.4 mg 24 4-09 ity of hr capsule 00:00: [place] [address] [facility] TOPIRAMATE 2019-0 Yes [id number] TAKE 1 Univers 25 mg 3-01 TABLET BY ity of tablet 00:00: MOUTH TWO [place] [address] TIMES [facility] DAILY Branch TOPIRAMATE 2019-0 Yes [id number] TAKE 1 Univers 25 mg 3-01 TABLET BY ity of tablet 00:00: MOUTH TWO [place] TIMES Medical DAILY Branch TOPIRAMATE Yes [id number] TAKE 1 Univers 25 mg 3-01 TABLET BY ity of tablet 00:00: MOUTH TWO [place] TIMES [facility] DAILY Branch TOPIRAMATE Yes [id number] TAKE 1 Univers 25 mg 3-01 TABLET BY ity of tablet 00:00: MOUTH TWO [place] TIMES Medical DAILY Branch TOPIRAMATE Yes [id number] TAKE 1 Univers 25 mg 3-01 TABLET BY ity of tablet 00:00: MOUTH TWO [place] TIMES Medical DAILY Branch TOPIRAMATE Yes [id number] TAKE 1 Univers 25 mg 3-01 TABLET BY ity of tablet 00:00: MOUTH TWO [place] TIMES Medical DAILY Branch TOPIRAMATE Yes [id number] TAKE 1 Univers 25 mg 3-01 TABLET BY ity of tablet 00:00: MOUTH TWO [place] TIMES Medical DAILY Branch TOPIRAMATE Yes [id number] TAKE 1 Univers 25 mg 3-01 TABLET BY ity of tablet 00:00: MOUTH TWO [place] TIMES Medical DAILY Branch TOPIRAMATE 2019- No [id number] TAKE 1 Univers 25 mg 3-01 08-28 TABLET BY ity of tablet 00:00: 00:00 MOUTH TWO [place] 00 :00 TIMES Medical DAILY Branch testosteron [...] 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 Tamsulosin No 1{capsu QD Tamsulosin HCl 0.4 MG HCl 0.4 MG le} HCl 0.4 MG Donepezil Donepezil No 1{table QD Donepezil HCl 5 MG HCl 5 MG t_at_be HCl 5 MG dtime} QUEtiapine QUEtiapine No 1{table QD QUEtiapine Fumarate Fumarate t_at_be Fumarate 100 MG 100 MG dtime} 100 MG Propranolol Propranolol No 1{table QD Propranolo HCl 10 MG HCl 10 MG t} l HCl 10 MG Mirtazapine Mirtazapine No 1{table QD Mirtazapin 15 MG 15 MG t_at_be e 15 MG dtime} Scopolamine Scopolamine No Scopolamin 1 MG/3DAYS 1 MG/3DAYS e 1 MG/3DAYS Propranolol Propranolol No 1{table QD Propranolo HCl 10 MG HCl 10 MG t} l HCl 10 MG Donepezil Donepezil No 1{table QD Donepezil HCl 5 MG HCl 5 MG t_at_be HCl 5 MG dtime} Mirtazapine Mirtazapine No 1{table QD Mirtazapin 15 MG 15 MG t_at_be e 15 MG dtime} Scopolamine Scopolamine No Scopolamin 1 MG/3DAYS 1 MG/3DAYS e 1 MG/3DAYS Xarelto 10 Xarelto 10 No 1{table QD Xarelto 10 MG MG t_with_ MG food} QUEtiapine QUEtiapine No 1{table QD QUEtiapine Fumarate Fumarate t_at_be Fumarate 100 MG 100 MG dtime} 100 MG Tamsulosin Tamsulosin No 1{capsu QD Tamsulosin HCl 0.4 MG HCl 0.4 MG le} HCl 0.4 MG QUEtiapine QUEtiapine No 1{table QD QUEtiapine Fumarate Fumarate t_at_be Fumarate 100 MG 100 MG dtime} 100 MG Mirtazapine Mirtazapine No 1{table QD Mirtazapin 15 MG 15 MG t_at_be e 15 MG dtime} Tamsulosin Tamsulosin No 1{capsu QD Tamsulosin HCl 0.4 MG HCl 0.4 MG le} HCl 0.4 MG Propranolol Propranolol No 1{table QD Propranolo HCl 10 MG HCl 10 MG t} l HCl 10 MG Xarelto 10 Xarelto 10 No 1{table QD Xarelto 10 MG MG t_with_ MG food} Mirtazapine Mirtazapine No 1{table QD Mirtazapin 15 MG 15 MG t_at_be e 15 MG dtime} Xarelto 10 Xarelto 10 No 1{table QD Xarelto 10 MG MG t_with_ MG food} QUEtiapine QUEtiapine No 1{table QD QUEtiapine Fumarate Fumarate t_at_be Fumarate 100 MG 100 MG dtime} 100 MG Propranolol Propranolol No 1{table QD Propranolo HCl 10 MG HCl 10 MG t} l HCl 10 MG Tamsulosin Tamsulosin No 1{capsu QD Tamsulosin HCl 0.4 MG HCl 0.4 MG le} HCl 0.4 MG Mirtazapine Mirtazapine No 1{table QD Mirtazapin 15 MG 15 MG t_at_be e 15 MG dtime} Xarelto 10 Xarelto 10 No 1{table QD Xarelto 10 MG MG t_with_ MG food} QUEtiapine QUEtiapine No 1{table QD QUEtiapine Fumarate Fumarate t_at_be Fumarate 100 MG 100 MG dtime} 100 MG Propranolol Propranolol No 1{table QD Propranolo HCl 10 MG HCl 10 MG t} l HCl 10 MG Tamsulosin Tamsulosin No 1{capsu QD Tamsulosin HCl 0.4 MG HCl 0.4 MG le} HCl 0.4 MG Xarelto 10 Xarelto 10 No 1{table QD Xarelto 10 MG MG t_with_ MG food} Mirtazapine Mirtazapine No 1{table QD Mirtazapin 15 MG 15 MG t_at_be e 15 MG dtime} Propranolol Propranolol No 1{table QD Propranolo HCl 10 MG HCl 10 MG t} l HCl 10 MG Tamsulosin Tamsulosin No 1{capsu QD Tamsulosin HCl 0.4 MG HCl 0.4 MG le} HCl 0.4 MG QUEtiapine QUEtiapine No 1{table QD QUEtiapine Fumarate Fumarate t_at_be Fumarate 100 MG 100 MG dtime} 100 MG Xarelto 10 Xarelto 10 No 1{table QD Xarelto 10 MG MG t_with_ MG food} Mirtazapine Mirtazapine No 1{table QD Mirtazapin 15 MG 15 MG t_at_be e 15 MG dtime} Propranolol Propranolol No 1{table QD Propranolo HCl 10 MG HCl 10 MG t} l HCl 10 MG Tamsulosin Tamsulosin No 1{capsu QD Tamsulosin HCl 0.4 MG HCl 0.4 MG le} HCl 0.4 MG QUEtiapine QUEtiapine No 1{table QD QUEtiapine Fumarate Fumarate t_at_be Fumarate 100 MG 100 MG dtime} 100 MG Propranolol Propranolol No 1{table QD Propranolo HCl 10 MG HCl 10 MG t} l HCl 10 MG Mirtazapine Mirtazapine No 1{table QD Mirtazapin 15 MG 15 MG t_at_be e 15 MG dtime} Tamsulosin Tamsulosin No 1{capsu QD Tamsulosin HCl 0.4 MG HCl 0.4 MG le} HCl 0.4 MG Xarelto 10 Xarelto 10 No 1{table QD Xarelto 10 MG MG t_with_ MG food} QUEtiapine QUEtiapine No 1{table QD QUEtiapine Fumarate Fumarate t_at_be Fumarate 100 MG 100 MG dtime} 100 MG Propranolol Propranolol No 1{table QD Propranolo HCl 10 MG HCl 10 MG t} l HCl 10 MG Mirtazapine Mirtazapine No 1{table QD Mirtazapin 15 MG 15 MG t_at_be e 15 MG dtime} Tamsulosin Tamsulosin No 1{capsu QD Tamsulosin HCl 0.4 MG HCl 0.4 MG le} HCl 0.4 MG Xarelto 10 Xarelto 10 No 1{table QD Xarelto 10 MG MG t_with_ MG food} QUEtiapine QUEtiapine No 1{table QD QUEtiapine Fumarate Fumarate t_at_be Fumarate 100 MG 100 MG dtime} 100 MG QUEtiapine QUEtiapine No 1{table QD QUEtiapine Fumarate Fumarate t_at_be Fumarate 100 MG 100 MG dtime} 100 MG Tamsulosin Tamsulosin No 1{capsu QD Tamsulosin HCl 0.4 MG HCl 0.4 MG le} HCl 0.4 MG Propranolol Propranolol No 1{table QD Propranolo HCl 10 MG HCl 10 MG t} l HCl 10 MG Scopolamine Scopolamine No Scopolamin 1 MG/3DAYS 1 MG/3DAYS e 1 MG/3DAYS Xarelto 10 Xarelto 10 No 1{table QD Xarelto 10 MG MG t_with_ MG food} Donepezil Donepezil No 1{table QD Donepezil HCl 5 MG HCl 5 MG t_at_be HCl 5 MG dtime} Mirtazapine Mirtazapine No 1{table QD Mirtazapin 15 MG 15 MG t_at_be e 15 MG dtime} Xarelto 10 Xarelto 10 No 1{table QD Xarelto 10 MG MG t_with_ MG food} Immunizations Ordered Filled Immunization Date Status Comments [facility] e Immunization Name Name SARS-COV-2 COVID-19 2021-03-31 Completed Unive rsity of MODERNA BOOSTER 00:00:00 [facility] VACCINE Branch SARS-COV-2 COVID-19 2020-06-25 Completed Unive rsity of MODERNA VACCINE 00:00:00 [facility] SARS-COV-2 COVID-19 2020-06-25 Completed Unive rsity [...] Unive rsity of MODERNA VACCINE 00:00:00 [place] [facility] ical Branch SARS-COV-2 COVID-19 2020-05-28 Completed Unive rsity of MODERNA VACCINE 00:00:00 [place] [facility] ical Branch SARS-COV-2 COVID-19 2020-05-28 Completed Unive rsity of MODERNA VACCINE 00:00:00 [place] [facility] ical Branch SARS-COV-2 COVID-19 2020-05-28 Completed Unive rsity of MODERNA VACCINE 00:00:00 [place] [facility] ical Branch SARS-COV-2 COVID-19 2020-05-28 Completed Unive rsity of MODERNA VACCINE 00:00:00 [place] [facility] ical Branch SARS-COV-2 COVID-19 2020-05-28 Completed Unive rsity of MODERNA VACCINE 00:00:00 [place] [facility] ical Branch SARS-COV-2 COVID-19 2020-05-28 Completed Unive rsity of MODERNA VACCINE 00:00:00 [place] [facility] ical Branch SARS-COV-2 COVID-19 2020-05-28 Completed Unive rsity of MODERNA VACCINE 00:00:00 [place] [facility] ical Branch SARS-COV-2 COVID-19 2020-05-28 Completed Unive rsity of MODERNA VACCINE 00:00:00 [place] [facility] ical Branch SARS-COV-2 COVID-19 2020-05-28 Completed Unive rsity of MODERNA VACCINE 00:00:00 [place] [facility] ical Branch SARS-COV-2 COVID-19 2020-05-28 Completed Unive rsity of MODERNA VACCINE 00:00:00 [place] [facility] ical Branch SARS-COV-2 COVID-19 2020-05-28 Completed Unive rsity of MODERNA VACCINE 00:00:00 [facility] ical Branch SARS-COV-2 COVID-19 2020-05-28 Completed Unive rsity of MODERNA VACCINE 00:00:00 [facility] ical Branch Vital Signs Vital Name Observation Time Observation Value Comments Source height 2022-04-30 11:15:00 70 [in_i] Common [facility] weight 2022-04-30 11:15:00 172 [lb_av] Common [facility] temperature 2022-04-30 11:15:00 97.2 [degF] Common [facility] bmi 2022-04-30 11:15:00 24.68 kg/m2 Common [facility] oximetry 2022-04-30 11:15:00 96 % Common [facility] respiratory rate 2022-04-30 11:15:00 18 /min Comm on [facility] blood pressure 2022-04-30 11:15:00 119 mm[Hg] Common [facility] - systolic [facility] blood pressure 2022-04-30 11:15:00 82 mm[Hg] [facility] height 2021-12-23 14:15:00 70 [in_i] Common [facility] weight 2021-12-23 14:15:00 170 [lb_av] Common [facility] temperature 2021-12-23 14:15:00 98.4 [degF] Common [facility] bmi 2021-12-23 14:15:00 24.39 kg/m2 Common [facility] oximetry 2021-12-23 14:15:00 93 % Common [facility] respiratory rate 2021-12-23 14:15:00 16 /min Comm on [facility] blood pressure 2021-12-23 14:15:00 144 mm[Hg] [facility] blood pressure 2021-12-23 14:15:00 75 mm[Hg] [facility] blood pressure 2021-07-24 09:30:00 132 mm[Hg] Common [facility] - systolic [facility] blood pressure 2021-07-24 09:30:00 92 mm[Hg] [facility] height 2021-07-24 09:30:00 70 [in_i] Common [facility] weight 2021-07-24 09:30:00 170 [lb_av] Common [facility] temperature 2021-07-24 09:30:00 97.3 [degF] Common [facility] bmi 2021-07-24 09:30:00 24.39 kg/m2 [facility] oximetry 2021-07-24 09:30:00 96 % [facility] respiratory rate 2021-07-24 09:30:00 20 /min Comm on [facility] height 2021-06-18 13:00:00 70 [in_i] Common [facility] weight 2021-06-18 13:00:00 174.8 [lb_av] [facility] temperature 2021-06-18 13:00:00 98.7 [degF] [facility] bmi 2021-06-18 13:00:00 25.08 kg/m2 [facility] oximetry 2021-06-18 13:00:00 99 % [facility] respiratory rate 2021-06-18 13:00:00 16 /min Comm on [facility] blood pressure 2021-06-18 13:00:00 143 mm[Hg] [facility] systolic [facility] blood pressure 2021-06-18 13:00:00 97 mm[Hg] [facility] diastolic [facility] height 2021-04-23 13:00:00 70 [in_i] [facility] weight 2021-04-23 13:00:00 185 [lb_av] [facility] temperature 2021-04-23 13:00:00 98.3 [degF] Common [facility] bmi 2021-04-23 13:00:00 26.54 kg/m2 [facility] oximetry 2021-04-23 13:00:00 96 % [facility] respiratory rate 2021-04-23 13:00:00 20 /min Comm on [facility] blood pressure 2021-04-23 13:00:00 125 mm[Hg] [facility] blood pressure 2021-04-23 13:00:00 95 mm[Hg] [facility] Systolic blood 2020-07-19 21:14:00 98 mm[Hg] Univer sity of pressure [facility] Diastolic blood 2020-07-19 21:14:00 65 mm[Hg] Unive rsity of pressure [facility] Heart rate 2020-07-19 21:14:00 75 /min Universi ty of [facility] Oxygen saturation in 2020-07-19 21:14:00 96 /min University of Arterial blood by [facility] Pulse oximetry Branch Systolic blood 2020-01-19 20:45:00 119 mm[Hg] Univer sity of pressure [facility] Diastolic blood 2020-01-19 20:45:00 84 mm[Hg] Unive rsity of pressure [facility] Heart rate 2020-01-19 20:45:00 82 /min Universi ty of [facility] Body temperature 2020-01-19 20:45:00 37.22 Pretty Univ [address]ity of [facility] Body height 2020-01-19 20:45:00 182.9 [address] [facility] Body weight 2020-01-19 20:45:00 88.905 kg Universi ty [facility] BMI 2020-01-19 20:45:00 26.58 kg/m2 Universi ty of [facility] Oxygen saturation in 2020-01-19 20:45:00 96 /min University of Arterial blood by [facility] Pulse oximetry Branch Systolic blood 2018-12-26 22:04:00 139 mm[Hg] Univer sity of pressure [facility] Diastolic blood 2018-12-26 22:04:00 83 mm[Hg] Unive rsity of pressure [facility] Heart rate 2018-12-26 22:04:00 62 /min Universi ty of [facility] Body temperature 2018-12-26 22:04:00 36.39 Pretty Univ ersity of [facility] Respiratory rate 2018-12-26 22:04:00 17 /min Univ ersity of [facility] Body weight 2018-12-26 22:04:00 87.998 kg Universi ty of [place] [facility] [place] BMI 2018-12-26 22:04:00 26.31 kg/m2 Universi ty of [facility] Systolic blood 2020 15:37:00 115 mm[Hg] Univer sity of pressure [place] [facility] Diastolic blood 2020 15:37:00 78 mm[Hg] Unive rsity of pressure [facility] Heart rate 2020 15:37:00 105 /min Universi ty of [facility] Respiratory rate 2020 15:37:00 14 /min Univ ersity of [facility] Body height 2020 15:37:00 182.[address] [facility] Body weight 2020 15:37:00 89.54 kg Universi ty of [facility] BMI 2020 15:37:00 26.77 kg/m2 Universi ty of [facility] Systolic blood 2020-07-19 21:14:00 98 mm[Hg] Univer sity of pressure [facility] Diastolic blood 2020-07-19 21:14:00 65 mm[Hg] Unive rsity of pressure [facility] Heart rate 2020-07-19 21:14:00 75 /min Universi ty of [facility] Oxygen saturation in 2020-07-19 21:14:00 96 /min University of Arterial blood by [facility] Pulse oximetry Branch Systolic blood 2020-02-02 15:06:00 114 mm[Hg] Univer sity of pressure [facility] Diastolic blood 2020-02-02 15:06:00 78 mm[Hg] Unive rsity of pressure [facility] Heart rate 2020-02-02 15:06:00 103 /min Universi ty of [facility] Respiratory rate 2020-02-02 15:06:00 19 /min Univ ersity of [facility] Body weight 2020-02-02 15:06:[address] [facility] BMI 2020-02-02 15:06:00 26.43 kg/m2 Universi ty of [facility] Systolic blood 2020-01-19 20:45:00 119 mm[Hg] Univer sity of pressure [facility] Diastolic blood 2020-01-19 20:45:00 84 mm[Hg] Unive rsity of pressure [facility] [place] [facility] Heart rate 2020-01-19 20:45:00 82 /min Universi ty of [place] [facility] Body temperature 2020-01-19 20:45:00 37.22 Pretty Univ ersity of [place] [facility] Body height 2020-01-19 20:45:00 182.9 cm Universi ty of [place] [facility] [place] Body weight 2020-01-19 20:45:00 88.905 kg Universi ty of [place] [facility] BMI 2020-01-19 20:45:00 26.58 kg/m2 Universi ty of [facility] Oxygen saturation in 2020-01-19 20:45:00 96 /min University Arterial blood by [facility] Pulse oximetry Branch Systolic blood 2019-12-29 15:03:00 126 mm[Hg] Univer sity of pressure [facility] Diastolic blood 2019-12-29 15:03:00 79 mm[Hg] Unive rsity of pressure [facility] Heart rate 2019-12-29 15:03:00 84 /min Universi ty of [facility] Respiratory rate 2019-12-29 15:03:00 17 /min Univ ersity of [facility] Body weight 2019-12-29 15:03:00 87.635 kg Universi ty of [place] [facility] BMI 2019-12-29 15:03:00 26.20 kg/m2 Universi ty of [facility] Systolic blood 2019-11-24 15:01:00 131 mm[Hg] Univer sity of pressure [facility] Diastolic blood 2019-11-24 15:01:00 83 mm[Hg] Unive rsity of pressure [facility] Heart rate 2019-11-24 15:01:00 61 /min Universi ty of [place] [facility] Respiratory rate 2019-11-24 15:01:00 18 /min Univ ersity of [facility] Body weight 2019-11-24 15:01:00 92.08 kg Universi ty of [place] [facility] BMI 2019-11-24 15:01:00 27.53 kg/m2 Universi ty of [facility] Systolic blood 2019-06-08 16:12:00 122 mm[Hg] Univer sity of pressure [facility] Diastolic blood 2019-06-08 16:12:00 81 mm[Hg] Unive rsity of pressure [facility] Heart rate 2019-06-08 16:12:00 57 /min Universi ty of [place] [facility] Respiratory rate 2019-06-08 16:12:00 17 /min Univ ersity of [place] [facility] Body weight 2019-06-08 16:12:00 89.359 kg Universi ty of [place] [facility] BMI 2019-06-08 16:12:00 26.72 kg/m2 Universi ty of [place] [facility] Systolic blood 2019-04-07 16:01:00 116 mm[Hg] Univer sity of pressure [place] [facility] Diastolic blood 2019-04-07 16:01:00 74 mm[Hg] Unive rsity of pressure [place] [facility] Heart rate 2019-04-07 16:01:00 67 /min Universi ty of [place] [facility] Respiratory rate 2019-04-07 16:01:00 18 /min Univ ersity of [place] [facility] Body height 2019-04-07 16:01:00 182.9 cm Universi ty [facility] [place] [facility] Body weight 2019-04-07 16:01:00 89.359 kg Universi ty [facility] [place] [facility] BMI 2019-04-07 16:01:00 26.72 kg/m2 Universi ty of [place] [facility] Systolic blood 2019-03-10 15:50:00 127 mm[Hg] Univer sity of pressure [place] [facility] Diastolic blood 2019-03-10 15:50:00 84 mm[Hg] Unive rsity of pressure [facility] [place] [facility] Heart rate 2019-03-10 15:50:00 89 /min Universi ty of [place] [facility] Respiratory rate 2019-03-10 15:50:00 18 /min Univ ersity of [place] [facility] Body height 2019-03-10 15:50:00 182.9 [...] 2019-02-10 15:16:00 20 /min Univ ersity of [place] [facility] Body height 2019-02-10 15:16:00 182.9 cm Universi ty of [place] [facility] Body weight 2019-02-10 15:16:00 90.719 kg Universi ty of [place] [facility] BMI 2019-02-10 15:16:00 27.12 kg/m2 Universi ty of [place] [facility] Systolic blood 2019-01-06 15:07:00 114 mm[Hg] Univer sity of pressure [place] [facility] Diastolic blood 2019-01-06 15:07:00 79 mm[Hg] Unive rsity of pressure [facility] [place] [facility] Heart rate 2019-01-06 15:07:00 89 /min Universi ty of [place] [facility] Respiratory rate 2019-01-06 15:07:00 17 /min Univ ersity of [place] [facility] Body weight 2019-01-06 15:07:00 87.544 kg Universi ty of [place] [facility] BMI 2019-01-06 15:07:00 26.18 kg/m2 Universi ty of [place] [facility] Body temperature 2018-12-26 22:04:00 36.39 Pretty [facility] ersity of [facility] Systolic blood 2018-12-09 15:09:00 118 mm[Hg] Univer sity of pressure [facility] [place] [facility] Diastolic blood 2018-12-09 15:09:00 80 mm[Hg] Unive rsity of pressure [facility] [place] [facility] Heart rate 2018-12-09 15:09:00 58 /min Universi ty of [place] [facility] Respiratory rate 2018-12-09 15:09:00 17 /min Univ ersity of [place] [facility] Body weight 2018-12-09 15:09:00 87.998 kg Universi ty of [place] [facility] BMI 2018-12-09 15:09:00 26.31 kg/m2 Universi ty of [place] [facility] Body height 2018-09-22 18:03:00 182.9 cm Universi ty of [place] [facility] Body temperature 2018 22:30:00 36.22 Pretty [facility] ersity of [facility] Procedures Procedure Date / Time Performing Clinician Source Performed SARS-COV-2 COVID-19 2021-03-31 22:17:29 [facility].25ML,[facility] (MODERNA) VALPROIC ACID, TOTAL 2020-07-19 21:54:00 [facility]-19 2020-06-25 20:02:30 Doctor Duran [facility] VACCINE,0.5ML,IM (MODERNA) [facility] SARS-COV-2 COVID-19 2020-05-28 20:50:30 Genie Good [facility] VACCINE,0.5ML,IM (MODERNA) Medic al Branch VALPROIC ACID, TOTAL 2020-02-07 15:21:00 Hugo Dyer [facility] CBC WITH DIFF 2020-02-07 15:21:00 Gomez [facility] GLYCOSYLATED HEMOGLOBIN 2020-02-07 15:21:00 Hugo Dyer [facility] (A1C) [facility] THYROID STIMULATING 2020-02-07 15:21:00 Hugo Dyer [facility] COMP. METABOLIC PANEL 2020-02-07 15:21:00 Gomez Hugo [facility] ([id number]) [facility] LIPID PANEL ([id number])(TOTAL 2020-02-07 15:21:00 Gomez [facility] CHOLESTEROL, [facility] TRIGLYCERIDES, HDL) CBC WITH DIFF 2020-02-07 15:21:00 Gomez [facility] COMP. METABOLIC PANEL 2020-02-07 15:21:00 Hugo Dyer [facility] ([id number]) Medical Branch GLYCOSYLATED HEMOGLOBIN 2020-02-07 15:21:00 Hugo Dyer [facility] (A1C) [facility] LIPID PANEL ([id number])(TOTAL 2020-02-07 15:21:00 Gomez [facility] CHOLESTEROL, [facility] TRIGLYCERIDES, HDL) VALPROIC ACID, TOTAL 2020-02-07 15:21:00 Hugo Dyer [facility] THYROID STIMULATING 2020-02-07 15:21:00 Hugo Dyer [facility] NOTICE OF PRIVACY 2020-02-07 14:56:54 Doctor Roger, [facility] PRACTICES [facility] CONSENT/REFUSAL FOR 2020-02-07 14:56:36 Doctor Roger [facility] DIAGNOSIS AND TREATMENT [facility] CONSENT/REFUSAL FOR 2020-02-07 14:56:36 Doctor Unassigned, [facility] DIAGNOSIS AND TREATMENT [facility] ASSIGNMENT OF BENEFITS 2020-02-07 14:56:19 Doctor Unassigned, [facility] ASSIGNMENT OF BENEFITS 2020-02-07 14:56:19 [facility] LIPID PANEL ([id number])(TOTAL 2019-02-20 15:50:00 Thong [facility] CHOLESTEROL, Pilar Mancini [facility] TRIGLYCERIDES, HDL) GLYCOSYLATED HEMOGLOBIN 2019-02-20 15:50:00 [facility] (A1C) Pilar Mancini [facility] NOTICE OF BILLING 2019-02-10 15:07:07 Doctor Roegr, [facility] PRACTICES FOR MEDICARE [facility] PATIENTS [facility] PATIENT FINANCIAL 2019-02-10 15:06:44 Doctor Roger, [facility] POLICY [facility] NO SHOW OR MISSED 2019-02-10 15:06:16 Doctor Roger, [facility] APPOINTMENT POLICY [facility] ACKNOWLEDGEMENT EXTERNAL PROVIDER RECORDS 2018-11-21 05:01:00 Doctor Roger, [facility] Encounters Start End Encounter Admission Attending Care Care Encounter Source Date/Time Date/Time Type Type Clinicians Facility Department ID 2022-04-02 Outpatient 3 [id number] E[facility]PL [facility] [id number] [facility] 09:34:26 [facility] [place] 2022-04-01 Outpatient 3 [id number] ENCPL REF [id number] [facility] 13:45:04 [facility] [place] 2021-06-12 Outpatient 3 KAMLESH ENCPL OZZY [id number] [facility] 13:09:35 SIVAKUMAR 1025 [facility] [place] 2021-06-12 Outpatient 3 [id number] ENCPL REF [id number] [facility] 13:07:10 101[facility] [place] 2021-06-12 Outpatient 3 TAYE Draper OZZY [id number] [facility] 12:40:27 Danielle 0810 [facility] [place] 2021-06-12 Outpatient 3 [id number] ENCPL REF [id number] [facility] 12:40:00 0809 [facility] [place] 2021-06-12 Outpatient 3 [id number] ENCPL REF [id number] [facility] 12:39:14 0806 [facility] [place] 2021-06-12 Outpatient 3 [id number] ENCPL OTH [id number] [facility] 11:32:46 0211 [facility] [place] 2021-06-12 Outpatient 3 [id number] ENCPL REF [id number] [facility] 11:32:25 0210 [facility] [place] 2021-06-11 Outpatient Donita, STLMLC STLMLC [id number] Common 13:11:40 Mike 20999 [facility] 2022-05-19 2022-05-19 (TEL) STLMLC STLMLC [id number] Co mmon 00:00:00 00:00:00 [facility] 2022-04-30 2022-04-30 OFFICE STLMLC STLMLC [id number] Co mmon 00:00:00 00:00:[address] [facility] ESTAB PT - [facility] LEVEL 2 [facility] 2021-12-23 2021-12-23 OFFICE STLMLC STLMLC [id number] Co mmon 00:00:00 00:00:00 VISIT EST Spir it PT LEVEL 3 - [facility] 2021-10-06 2021-10-06 (TEL) STLMLC STLMLC [id number] Co mmon 00:00:00 00:00:00 [facility] 2021-07-24 2021-07-24 Postop STLMLC STLMLC [id number] Co mmon 00:00:00 00:00:00 visit [facility] 2021-07-07 2021-07-07 (TEL) STLMLC STLMLC [id number] Co mmon 00:00:00 00:00:00 [facility] 2021-06-18 2021-06-18 OFFICE STLMLC STLMLC [id number] Co mmon 00:00:00 00:00:00 VISIT Spirit ESTAB PT - [facility] LEVEL 2 [facility] 2021-05-21 2021-05-21 (TEL) STLMLC STLMLC [id number] Co mmon 00:00:00 00:00:00 [facility] 2021-04-23 2021-04-23 OFFICE STLMLC STLMLC [id number] Co mmon 00:00:00 00:00:00 VISIT Spirit ESTAB PT - [facility] LEVEL 4 [facility] 2021-03-31 2021-03-31 Outpatient Mychal CAMPO [facility] [id number] Univers 16:00:00 15:47:[address] [facility] 2021-03-31 2021-03-31 Imm/Inj Nurse, Adc Pob Immunization [facility] 1.2.840.114 [id number] Univers 15:47:30 15:47:40 Visit Emiliano Campo 350.1.13 .10 ity [facility] 4.2.7.2.686 Caden MYLES [id number] La dical [address] 2021-01-09 2021-01-09 (TEL) STLMLC STLMLC [id number] Co mmon 00:00:00 00:00:00 [facility] 2020-11-08 2020-11-08 Outpatient MAMI NOBLE [facility] [id number] Univers 10:45:00 10:45:[address] [facility] 2020-10-21 2020-10-21 Outpatient STLMLC STLMLC [id number] Common 00:00:00 00:00:00 [facility] 2020 2020 Outpatient MAMI NOBLE [facility] [id number] Univers 10:45:00 10:45:[address] [facility] 2020 2020 Travel 1.2.840.1 1.2.202.548 [id number] Univers 00:00:00 00:00:00 38170.1.1 350.1.13.10 ity of 3.104.2.[place].16[place] 084.8 Medica l .8 [place] 2020-09-12 2020-09-12 Outpatient MAMI NOBLE [facility] [id number] Univers 10:45:00 10:45:[address] 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 2020-07-19 2020-07-19 Travel 1.2.840.1 1.2.360.234 [id number] Univers 00:00:00 00:00:00 73140.1.1 350.1.13.10 ity of 3.104.2.[place].2758[place] 084.8 Medica l .8 [place] 2020-07-18 2020-07-18 Outpatient MAMI NOBLE [facility] [id number] Univers 10:00:00 10:00:[address] [facility] 2020-06-25 2020-06-25 Outpatient Mychal ALEGRIA [facility] [id number] Univers 14:10:00 14:10:00 IVÁN ity [facility] 2020-06-25 2020-06-25 Imm/Inj Iván Alegria 1.2.840.1 [id number] Univers 14:00:29 14:01:18 Visit Nurse, Alana Pob Immunization 68469.1.1 ity of 3.104.2.7 [place] .3.671564 Medica l .8 [place] 2020-06-07 2020-06-07 Outpatient Mychal LORENZAMAMI AVITIA [facility] [id number] Univers 10:00:00 10:00:[address] [facility] 2020-05-28 2020-05-28 [facility] [id number] Univers 15:00:00 15:00:00 IVÁN ity [facility] 2020-05-28 2020-05-28 Imm/Inj Iván Alegria 1.2.840.1 [id number] Univers 14:46:27 14:49:49 Visit Nurse, Adc Pob Immunization 82150.1.1 ity of 3.104.2.7 [place] .3.987690 Medica l .[address] [place] [address] 2020-05-11 2020-05-11 Outpatient R ALISIA [facility] [id number] Univers 17:40:00 17:40:[address] [facility] 2020-05-11 2020-05-11 Telemedici Shilpi Pop 1.2.840.0 [id number] Univers 15:55:08 16:15:08 ne Visit Unknown, Attending 77858.1.1 ity of Care, Provider 25 - Adult & Pedi Urgent 3.104.2.7 [place] .3.832271 Medica l .[address] [place] [address] 2020-04-26 2020-04-26 Outpatient Mychal LORENZA, MAMI [facility] [id number] Univers 10:00:00 10:00:[address] [facility] 2020-03-15 2020-03-15 Outpatient Mychal GODOY MAMI [facility] [id number] Univers 10:00:00 10:00:[address] [facility] 2020-02-16 2020-02-16 Outpatient R KAMILLA, [facility] [id number] Univers 14:15:00 14:15:[address] [facility] 2020-02-07 2020-02-07 Outpatient R JYOTI, [facility] [id number] Univers 10:30:00 10:30:[address] 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 1.2.840.0 [id number] Univers 09:57:45 10:12:45 Visit Pob, Adc Lab Main 95782.1.1 ity of 3.104.2.7 [place] .3.061650 Medica l .8 [place] 2020-02-07 2020-02-07 Orders Doctor 1.2.840.4 [id number] Univers 00:00:00 00:00:00 Only Unassigned, 38275.1.1 ity of [place] 3.104.2.7 [place] .3.118736 Medica l .8 [place] 2020-02-07 2020-02-07 Travel 1.2.840.1 1.2.822.557 [id number] Univers 00:00:00 00:00:00 37037.1.1 350.1.13.10 ity of 3.104.2.[place].698 [place] .3.93[place] 084.8 Medica l .8 [place] 2020-02-04 2020-02-04 Nurse Renetta, 1.2.840.1 [id number] Univers 00:00:00 00:00:00 Triage Ariana T 99163.1.1 ity of 3.104.2.7 [place] .3.234658 Medica l .8 [place] 2020-02-04 2020-02-04 Telephone Louise, 1.2.840.9 [id number] Univers 00:00:00 00:00:00 Mamadou Gene 76031.1.1 ity of 3.104.2.7 [place] .3.112522 Medica l .8 [place] 2020-02-02 2020-02-02 Outpatient MAMI NOBLE [facility] [id number] Univers 10:00:00 10:00:[address] [facility] 2020-02-02 2020-02-02 Travel 1.2.840.1 1.2.567.723 [id number] Univers 00:00:00 00:00:00 35670.1.1 350.1.13.10 ity of 3.104.2.[place].3.698 [place] .3.382559 084.8 Medica l .8 [place] 2020-02-01 2020-02-01 Travel 1.2.840.1 1.2.861.220 [id number] Univers 00:00:00 00:00:00 98990.1.1 350.1.13.10 ity of 3.104.2.7 [place].3.698 [place] .3.646815 084.8 Medica l .8 [place] 2020-01-19 2020-01-19 Office Louise, 1.2.840.4 [id number] Univers 14:42:27 16:01:19 Visit Mamadou Johns 60647.1.1 ity of 3.104.2.7 [place] .3.922725 Medica l .8 [place] 2020-01-19 2020-01-19 Outpatient MAMADOU RIZVI [facility] [id number] Univers 15:00:00 15:00:00 MAMADOU GIL ity of [facility] 2020-01-19 2020-01-19 Travel 1.2.840.1 1.2.410.869 [id number] Univers 00:00:00 00:00:00 24572.1.1 350.1.13.10 ity of 3.104.2.[place]3.698 [place] .3.969[place] 084.8 Medica l .8 [place] 2020-01-08 2020-01-08 Telephone Louise 1.2.840.2 [id number] Univers 00:00:00 00:00:00 Mamadou Gene 02970.1.1 ity of 3.104.2.7 [place] .3.027558 Medica l .8 [place] 2019-12-29 2019-12-29 Outpatient R MAMI GODOY [facility] [id number] Univers 10:00:00 10:00:[address] [facility] 2019-12-29 2019-12-29 Travel 1.2.840.1 1.2.834.547 [id number] Univers 00:00:00 00:00:00 85522.1.1 350.1.13.10 ity of 3.104.2.[place] 4[place]3.698 [place] .3.408932 084.8 Medica l .8 [place] 2019-11-24 2019-11-24 Outpatient R JUNO HOSKINS [facility] 063 [id number] Univers 10:00:00 10:00:[address] [facility] 2019-11-24 2019-11-24 Travel 1.2.840.1 1.2.718.495 [id number] Univers 00:00:00 00:00:00 64666.1.1 350.1.13.10 ity of 3.104.2.[place]3.698 [place] .3.164651 084.8 Medica l .8 [place] 2019-10-12 2019-10-12 Outpatient Mychal VYAS [facility] [id number] Univers 12:45:00 12:45:[address] [facility] 2019-09-08 2019-09-08 Outpatient MAMI NOBLE [facility] [id number] Univers 09:15:00 09:15:[address] [facility] 2019-09-06 2019-09-06 Janice Gil, 1.2.840.0 [id number] Univers 00:00:00 00:00:00 Mamadou Gene 58074.1.1 ity of 3.104.2.7 [place] .3.065000 Medica l .8 [place] 2019-08-11 2019-08-11 Outpatient MAMI NOBLE [facility] [id number] Univers 10:00:00 10:00:[address] 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 Mami Godoy 1.2.840.1 [id number] Univers 10:14:05 10:29:05 Visit 1, [facility] 64081.1.1 i ty of 3.104.2.7 [place] .3.026990 Medica l .8 [place] 2019-02-10 2019-02-10 Orders Doctor 1.2.840.9 [id number] Univers 00:00:00 00:00:00 Only Unassigned, 04283.1.1 ity of [place] 3.104.2.7 [place] .3.483571 Medica l .8 Branch 2019-01-11 2019-01-11 Refill Louise, 1.2.840.2 [id number] Univers 00:00:00 00:00:00 Mamadou Gene 45359.1.1 ity of 3.104.2.7 [place] .3.728091 Medica l .8 [place] 2018-12-26 2018-12-26 Office Louise, 1.2.840.4 [id number] Univers 15:42:00 17:08:53 Visit Mamadou Gene 48538.1.1 ity of 3.104.2.7 [place] .3.296209 Medica l .8 [place] 2018-11-21 2018-11-21 Orders Doctor 1.2.840.9 [id number] Univers 00:00:00 00:00:00 Only Unassigned, 40616.1.1 ity of [place] 3.104.2.7 [place] .3.416841 Medica l .8 [place] 2018-09-16 2018-09-16 Telephone Louise, 1.2.840.7 [id number] Univers 00:00:00 00:00:00 Mamadou Gene 43059.1.1 ity of 3.104.2.7 [place] .3.354024 Medica l .8 Branch 2018 2018 Office Louise, 1.2.840.2 [id number] Univers 15:36:03 17:23:49 Visit Mamadou Gene 71098.1.1 ity of 3.104.2.7 [place] .3.109478 [address] Results Test Description Test Time Test Comments Results Result Comments Source VALPROIC ACID, TOTAL 2020-07-19 23:16:00 Test Item Value Reference Range Interpretation Comme nts VALPROIC A (test code = 5265635848) 32 ug/mL 50-100 L JOEY (test code = JOEY) Toxic Range: ?Greater than 100 ug/mL Lab Interpretation (test code = 00176-2) [id number] 23:16:00 Test Item Value Reference Range Interpretation Comments VALPROIC A (test code = 32 ug/mL 50-100 L 7680004182) JOEY (test code = JOEY) Toxic Range: ?Greater than 100 ug/mL Lab Interpretation (test Abnormal code = 60685-7) [facility] [id number] 23:16:00 Test Item Value Reference Range Interpretation Comments VALPROIC A (test code = 32 ug/mL 50-100 L 8506612431) JOEY (test code = JOEY) Toxic Range: ?Greater than 100 ug/mL Lab Interpretation (test Abnormal code = 62789-7) [facility] [id number] 23:16:00 Test Item Value Reference Range Interpretation Comments VALPROIC A (test code = 32 ug/mL 50-100 L 1135625099) JOEY (test code = JOEY) Toxic Range: ?Greater than 100 ug/mL Lab Interpretation (test Abnormal code = 26387-7) [facility] [id number] 23:16:00 Test Item Value Reference Range Interpretation Comments VALPROIC A (test code = 32 ug/mL 50-100 L 6523292951) JEOY (test code = JOEY) Toxic Range: ?Greater than 100 ug/mL Lab Interpretation (test Abnormal code = 61577-8) [facility] [id number] 23:16:00 Test Item Value Reference Range Interpretation Comments VALPROIC A (test code = 32 ug/mL 50-100 L 3848465828) JOEY (test code = JOEY) Toxic Range: ?Greater than 100 ug/mL Lab Interpretation (test Abnormal code = 41438-0) [facility] [id number] 17:48:00 Test Item Value Reference Range Interpretation Comments TSH (test code = See_Comment [Automated message] 5487410236) The system [email or web address] generated this result transmitted ref erence range: 0.45 - 4 .70 mIU/L. The refe rence range was not u sed to interpret this result as normal/abnor mal. Lab Interpretation (test Normal code = 45577-1) [facility] [id number] 17:48:00 Test Item Value Reference Range Interpretation Comments TSH (test code = See_Comment [Automated message] 6245204618) The system [email or web address] generated this result transmitted ref erence range: 0.45 - 4 .70 mIU/L. The refe rence range was not u sed to interpret this result as normal/abnor mal. Lab Interpretation (test Normal code = 77054-0) [facility] [id number] 17:48:00 Test Item Value Reference Range Interpretation Comments TSH (test code = See_Comment [Automated message] 8571205634) The system [email or web address] generated this result transmitted ref erence range: 0.45 - 4 .70 mIU/L. The refe rence range was not u sed to interpret this result as normal/abnor mal. Lab Interpretation (test Normal code = 95936-5) [facility] [id number] 17:48:00 Test Item Value Reference Range Interpretation Comments TSH (test code = See_Comment [Automated message] 5825363400) The system [email or web address] generated this result transmitted ref erence range: 0.45 - 4 .70 mIU/L. The refe rence range was not u sed to interpret this result as normal/abnor mal. Lab Interpretation (test Normal code = 55579-1) [facility] [id number] 17:48:00 Test Item Value Reference Range Interpretation Comments TSH (test code = See_Comment [Automated message] [id number]) The system [email or web address] generated this result transmitted ref erence range: 0.45 - 4 .70 mIU/L. The refe rence range was not u sed to interpret this result as normal/abnor mal. Lab Interpretation (test Normal code = 01596-5) [facility] [id number] 17:48:00 Test Item Value Reference Range Interpretation Comments TSH (test code = See_Comment [Automated message] [id number]) The system [email or web address] generated this result transmitted ref erence range: 0.45 - 4 .70 mIU/L. The refe rence range was not u sed to interpret this result as normal/abnor mal. Lab Interpretation (test Normal code = 44754-6) [facility] [id number] 17:48:00 Test Item Value Reference Range Interpretation Comments TSH (test code = See_Comment [Automated message] [id number]) The system [email or web address] generated this result transmitted ref erence range: 0.45 - 4 .70 mIU/L. The refe rence range was not u sed to interpret this result as normal/abnor mal. Lab Interpretation (test Normal code = 91890-7) [facility] [id number] 17:48:00 Test Item Value Reference Range Interpretation Comments TSH (test code = See_Comment [Automated message] [id number]) The system [email or web address] generated this result transmitted ref erence range: 0.45 - 4 .70 mIU/L. The refe rence range was not u sed to interpret this result as normal/abnor mal. Lab Interpretation (test Normal code = 75683-5) [facility] [id number] 17:48:00 Test Item Value Reference Range Interpretation Comments TSH (test code = See_Comment [Automated message] [id number]) The system [email or web address] generated this result transmitted ref erence range: 0.45 - 4 .70 mIU/L. The refe rence range was not u sed to interpret this result as normal/abnor mal. Lab Interpretation (test Normal code = 55890-9) [facility] [id number] 17:48:00 Test Item Value Reference Range Interpretation Comments TSH (test code = See_Comment [Automated message] [id number]) The system [email or web address] generated this result transmitted ref erence range: 0.45 - 4 .70 mIU/L. The refe rence range was not u sed to interpret this result as normal/abnor mal. Lab Interpretation (test Normal code = 29453-9) [facility] [id number] 17:48:00 Test Item Value Reference Range Interpretation Comments TSH (test code = See_Comment [Automated message] [id number]) The system [email or web address] generated this result transmitted ref erence range: 0.45 - 4 .70 mIU/L. The refe rence range was not u sed to interpret this result as normal/abnor mal. Lab Interpretation (test Normal code = 49664-0) [facility] [id number] 17:48:00 Test Item Value Reference Range Interpretation Comments TSH (test code = See_Comment [Automated message] [id number]) The system [email or web address] generated this result transmitted ref erence range: 0.45 - 4 .70 mIU/L. The refe rence range was not u sed to interpret this result as normal/abnor mal. Lab Interpretation (test Normal code = 91883-9) [facility] [id number] 17:48:00 Test Item Value Reference Range Interpretation Comments TSH (test code = See_Comment [Automated message] [id number]) The system [email or web address] generated this result transmitted ref erence range: 0.45 - 4 .70 mIU/L. The refe rence range was not u sed to interpret this result as normal/abnor mal. Lab Interpretation (test Normal code = 22958-9) [facility] [id number] 17:48:00 Test Item Value Reference Range Interpretation Comments TSH (test code = See_Comment [Automated message] [id number]) The system [email or web address] generated this result transmitted ref erence range: 0.45 - 4 .70 mIU/L. The refe rence range was not u sed to interpret this result as normal/abnor mal. Lab Interpretation (test Normal code = 85419-8) [facility]ownLIPID PANEL (25521)(TOTAL CHOLESTEROL, TRIGLYCERIDES, HDL)2020-02-07 17:19:00 Test Item Value Reference Range Interpretation Comments CHOL (test code = 117 mg/dL 120-200 L 5253411023) HDL (test code = 38 mg/dL >40 L 7395661687) HDLC RATIO (test code = See_Comment [Au tomated message] 0327625032) The system [email or web address] generated this result transmit claribel reference range : <=5.0. The refe rence range was not u sed to interpret th is result as normal/abnormal . TRIG (test code = 50 mg/dL 30-170 5506510949) LDL CHOL (test code = 69 mg/dL See_Comment [Auto mated message] 04961-5) The system [email or web address] generated this result transmit claribel reference range : <=160. The refe rence range was not u sed to interpret th is result as normal/abnormal . VLDL (test code = 10 mg/dL 5-60 4765794116) Lab Interpretation (test Abnormal code = 35734-1) [facility] (24162)(TOTAL CHOLESTEROL, TRIGLYCERIDES, HDL)2020-02-07 17:19:00 Test Item Value Reference Range Interpretation Comments CHOL (test code = 117 mg/dL 120-200 L 3365075237) HDL (test code = 38 mg/dL >40 L 2297777695) HDLC RATIO (test code = See_Comment [Au tomated message] 6234317741) The system [email or web address] generated this result transmit claribel reference range : <=5.0. The refe rence range was not u sed to interpret th is result as normal/abnormal . TRIG (test code = 50 mg/dL 30-170 3965500586) LDL CHOL (test code = 69 mg/dL See_Comment [Auto mated message] 36611-8) The system [email or web address] generated this result transmit claribel reference range : <=160. The refe rence range was not u sed to interpret th is result as normal/abnormal . VLDL (test code = 10 mg/dL 5-60 [id number]) Lab Interpretation (test Abnormal code = 55263-5) [facility] (52778)(TOTAL CHOLESTEROL, TRIGLYCERIDES, HDL)2020-02-07 17:19:00 Test Item Value Reference Range Interpretation Comments CHOL (test code = 117 mg/dL 120-200 L 6047316087) HDL (test code = 38 mg/dL >40 L 4779023186) HDLC RATIO (test code = See_Comment [Au tomated message] [id number]) The system [email or web address] generated this result transmit claribel reference range : <=5.0. The refe rence range was not u sed to interpret th is result as normal/abnormal . TRIG (test code = 50 mg/dL 30-170 6114598360) LDL CHOL (test code = 69 mg/dL See_Comment [Auto mated message] 52131-3) The system [email or web address] generated this result transmit claribel reference range : <=160. The refe rence range was not u sed to interpret th is result as normal/abnormal . VLDL (test code = 10 mg/dL 5-60 7214312451) Lab Interpretation (test Abnormal code = 15786-2) [facility] (40246)(TOTAL CHOLESTEROL, TRIGLYCERIDES, HDL)2020-02-07 17:19:00 Test Item Value Reference Range Interpretation Comments CHOL (test code = 117 mg/dL 120-200 L 4094126534) HDL (test code = 38 mg/dL >40 L 2129593775) HDLC RATIO (test code = See_Comment [Au tomated message] 4171237846) The system [email or web address] generated this result transmit claribel reference range : <=5.0. The refe rence range was not u sed to interpret th is result as normal/abnormal . TRIG (test code = 50 mg/dL 30-170 1517603008) LDL CHOL (test code = 69 mg/dL See_Comment [Auto mated message] 23776-8) The system [email or web address] generated this result transmit claribel reference range : <=160. The refe rence range was not u sed to interpret th is result as normal/abnormal . VLDL (test code = 10 mg/dL 5-60 [id number]) Lab Interpretation (test Abnormal code = 21131-8) [facility] (15375)(TOTAL CHOLESTEROL, TRIGLYCERIDES, HDL)2020-02-07 17:19:00 Test Item Value Reference Range Interpretation Comments CHOL (test code = 117 mg/dL 120-200 L [id number]) HDL (test code = 38 mg/dL >40 L 8345275831) HDLC RATIO (test code = See_Comment [Au tomated message] 7474682129) The system [email or web address] generated this result transmit claribel reference range : <=5.0. The refe rence range was not u sed to interpret th is result as normal/abnormal . TRIG (test code = 50 mg/dL 30-170 0270386662) LDL CHOL (test code = 69 mg/dL See_Comment [Auto mated message] 73165-2) The system [email or web address] generated this result transmit claribel reference range : <=160. The refe rence range was not u sed to interpret th is result as normal/abnormal . VLDL (test code = 10 mg/dL 5-60 4272419291) Lab Interpretation (test Abnormal code = 77017-6) [id number]TOTAL CHOLESTEROL, TRIGLYCERIDES, HDL)2020-02-07 17:19:00 Test Item Value Reference Range Interpretation Comments CHOL (test code = 117 mg/dL 120-200 L 9664254328) HDL (test code = 38 mg/dL >40 L 7241058463) HDLC RATIO (test code = See_Comment [Au tomated message] 4725231804) The system [email or web address] generated this result transmit claribel reference range : <=5.0. The refe rence range was not u sed to interpret th is result as normal/abnormal . TRIG (test code = 50 mg/dL 30-170 6761825709) LDL CHOL (test code = 69 mg/dL See_Comment [Auto mated message] 16447-6) The system [email or web address] generated this result transmit claribel reference range : <=160. The refe rence range was not u sed to interpret th is result as normal/abnormal . VLDL (test code = 10 mg/dL 5-60 5317258065) Lab Interpretation (test Abnormal code = 14753-9) [id number]TOTAL CHOLESTEROL, TRIGLYCERIDES, HDL)2020-02-07 17:19:00 Test Item Value Reference Range Interpretation Comments CHOL (test code = 117 mg/dL 120-200 L 3676568161) HDL (test code = 38 mg/dL >40 L 4295840495) HDLC RATIO (test code = See_Comment [Au tomated message] 7962058588) The system [email or web address] generated this result transmit claribel reference range : <=5.0. The refe rence range was not u sed to interpret th is result as normal/abnormal . TRIG (test code = 50 mg/dL 30-170 9026622311) LDL CHOL (test code = 69 mg/dL See_Comment [Auto mated message] 80180-3) The system [email or web address] generated this result transmit claribel reference range : <=160. The refe rence range was not u sed to interpret th is result as normal/abnormal . VLDL (test code = 10 mg/dL 5-60 0875030380) Lab Interpretation (test Abnormal code = 70789-8) [facility][id number][facility]TOTAL CHOLESTEROL, TRIGLYCERIDES, HDL)2020-02-07 17:19:00 Test Item Value Reference Range Interpretation Comments CHOL (test code = 117 mg/dL 120-200 L 4428869760) HDL (test code = 38 mg/dL >40 L 4035445615) HDLC RATIO (test code = See_Comment [Au tomated message] 5858723103) The system [email or web address] generated this result transmit claribel reference range : <=5.0. The refe rence range was not u sed to interpret th is result as normal/abnormal . TRIG (test code = 50 mg/dL 30-170 6111256532) LDL CHOL (test code = 69 mg/dL See_Comment [Auto mated message] 37600-6) The system [email or web address] generated this result transmit claribel reference range : <=160. The refe rence range was not u sed to interpret th is result as normal/abnormal . VLDL (test code = 10 mg/dL 5-60 5701814923) Lab Interpretation (test Abnormal code = 40476-3) [facility][id number][facility]TOTAL CHOLESTEROL, TRIGLYCERIDES, HDL)2020-02-07 17:19:00 Test Item Value Reference Range Interpretation Comments CHOL (test code = 117 mg/dL 120-200 L 2618744664) HDL (test code = 38 mg/dL >40 L 5108489019) HDLC RATIO (test code = See_Comment [Au tomated message] 2178328670) The system [email or web address] generated this result transmit claribel reference range : <=5.0. The refe rence range was not u sed to interpret th is result as normal/abnormal . TRIG (test code = 50 mg/dL 30-170 4963819770) LDL CHOL (test code = 69 mg/dL See_Comment [Auto mated message] 33110-9) The system [email or web address] generated this result transmit claribel reference range : <=160. The refe rence range was not u sed to interpret th is result as normal/abnormal . VLDL (test code = 10 mg/dL 5-60 4708824464) Lab Interpretation (test Abnormal code = 99945-4) [facility][id number][facility]TOTAL CHOLESTEROL, TRIGLYCERIDES, HDL)2020-02-07 17:19:00 Test Item Value Reference Range Interpretation Comments CHOL (test code = 117 mg/dL 120-200 L 2536377260) HDL (test code = 38 mg/dL >40 L 7801055315) HDLC RATIO (test code = See_Comment [Au tomated message] 6557836613) The system [email or web address] generated this result transmit claribel reference range : <=5.0. The refe rence range was not u sed to interpret th is result as normal/abnormal . TRIG (test code = 50 mg/dL 30-170 9813752453) LDL CHOL (test code = 69 mg/dL See_Comment [Auto mated message] 60018-9) The system [email or web address] generated this result transmit claribel reference range : <=160. The refe rence range was not u sed to interpret th is result as normal/abnormal . VLDL (test code = 10 mg/dL 5-60 3345680117) Lab Interpretation (test Abnormal code = 67024-8) [facility][id number])(TOTAL CHOLESTEROL, TRIGLYCERIDES, HDL)2020-02-07 17:19:00 Test Item Value Reference Range Interpretation Comments CHOL (test code = 117 mg/dL 120-200 L 8316765034) HDL (test code = 38 mg/dL >40 L 4274355084) HDLC RATIO (test code = See_Comment [Au tomated message] 5167042766) The system [email or web address] generated this result transmit claribel reference range : <=5.0. The refe rence range was not u sed to interpret th is result as normal/abnormal . TRIG (test code = 50 mg/dL 30-170 3342741413) LDL CHOL (test code = 69 mg/dL See_Comment [Auto mated message] 18126-3) The system [email or web address] generated this result transmit claribel reference range : <=160. The refe rence range was not u sed to interpret th is result as normal/abnormal . VLDL (test code = 10 mg/dL 5-60 0365781130) Lab Interpretation (test Abnormal code = 92797-4) [id number][facility]TOTAL CHOLESTEROL, TRIGLYCERIDES, HDL)2020-02-07 17:19:00 Test Item Value Reference Range Interpretation Comments CHOL (test code = 117 mg/dL 120-200 L 0501639269) HDL (test code = 38 mg/dL >40 L 2258319532) HDLC RATIO (test code = See_Comment [Au tomated message] 2033959648) The system [email or web address] generated this result transmit claribel reference range : <=5.0. The refe rence range was not u sed to interpret th is result as normal/abnormal . TRIG (test code = 50 mg/dL 30-170 8617220075) LDL CHOL (test code = 69 mg/dL See_Comment [Auto mated message] 44017-5) The system [email or web address] generated this result transmit claribel reference range : <=160. The refe rence range was not u sed to interpret th is result as normal/abnormal . VLDL (test code = 10 mg/dL 5-60 1479916235) Lab Interpretation (test Abnormal code = 78568-7) [facility][id number])(TOTAL CHOLESTEROL, TRIGLYCERIDES, HDL)2020-02-07 17:19:00 Test Item Value Reference Range Interpretation Comments CHOL (test code = 117 mg/dL 120-200 L 7882710052) HDL (test code = 38 mg/dL >40 L 2149210659) HDLC RATIO (test code = See_Comment [Au tomated message] 2729936062) The system [email or web address] generated this result transmit claribel reference range : <=5.0. The refe rence range was not u sed to interpret th is result as normal/abnormal . TRIG (test code = 50 mg/dL 30-170 4754941222) LDL CHOL (test code = 69 mg/dL See_Comment [Auto mated message] 44013-6) The system [email or web address] generated this result transmit claribel reference range : <=160. The refe rence range was not u sed to interpret th is result as normal/abnormal . VLDL (test code = 10 mg/dL 5-60 4512624392) Lab Interpretation (test Abnormal code = 09311-7) [facility][id number])(TOTAL CHOLESTEROL, TRIGLYCERIDES, HDL)2020-02-07 17:19:00 Test Item Value Reference Range Interpretation Comments CHOL (test code = 117 mg/dL 120-200 L 4637749630) HDL (test code = 38 mg/dL >40 L 7820184663) HDLC RATIO (test code = See_Comment [Au tomated message] 7754660969) The system [email or web address] generated this result transmit claribel reference range : <=5.0. The refe rence range was not u sed to interpret th is result as normal/abnormal . TRIG (test code = 50 mg/dL 30-170 9816040579) LDL CHOL (test code = 69 mg/dL See_Comment [Auto mated message] 34612-5) The system [email or web address] generated this result transmit claribel reference range : <=160. The refe rence range was not u sed to interpret th is result as normal/abnormal . VLDL (test code = 10 mg/dL 5-60 8448618200) Lab Interpretation (test Abnormal code = 57983-7) [facility] ([id number])2020-02-07 17:18:00 Test Item Value Reference Range Interpretation Comments NA (test code = 141 mmol/L 135-145 6290041174) K (test code = 4.3 mmol/L 3.5-5 1951902974) CL (test code = 103 mmol/L 98-108 6014092537) CO2 TOTAL (test code = 30 mmol/L 23-31 3352450586) AGAP (test code = 2-16 1242066827) BUN (test code = 13 mg/dL 7-23 5705683223) GLUCOSE (test code = 91 mg/dL 70-110 9824799629) CREATININE (test code = 0.80 mg/dL 0.6-1.25 9035862753) TOTAL BILI (test code = 0.6 mg/dL 0.1-1.3 0156520068) CALCIUM (test code = 9.7 mg/dL 8.6-10.6 2522664009) T PROTEIN (test code = 5.6 g/dL 6.3-8.2 L 9781615316) ALBUMIN (test code = 3.4 g/dL 3.5-5 L 8043117257) ALK PHOS (test code = 76 U/L 34-122 9227325478) ALTv (test code = 15 U/L 5-50 1742-6) AST(SGOT) (test code = 17 U/L 13-40 6597311549) eGFR Calculation mL/min/1.73m2 (Non-) (test code = 5283689058) eGFR Calculation mL/min/1.73m2 () (test code = 1360539886) JOEY (test code = JOEY) Association of [...] tests). Lab Interpretation Abnormal (test code = 91472-2) [facility]. METABOLIC PANEL ([id number])2020-02-07 17:18:00 Test Item Value Reference Range Interpretation Comments NA (test code = 141 mmol/L 135-145 1257806578) K (test code = 4.3 mmol/L 3.5-5 0511597570) CL (test code = 103 mmol/L 98-108 5360048533) CO2 TOTAL (test code = 30 mmol/L 23-31 1586508197) AGAP (test code = 2-16 8654145550) BUN (test code = 13 mg/dL 7-23 5392362274) GLUCOSE (test code = 91 mg/dL 70-110 0981529451) CREATININE (test code = 0.80 mg/dL 0.6-1.25 7236087138) TOTAL BILI (test code = 0.6 mg/dL 0.1-1.3 3289230964) CALCIUM (test code = 9.7 mg/dL 8.6-10.6 7837207206) T PROTEIN (test code = 5.6 g/dL 6.3-8.2 L 9379771034) ALBUMIN (test code = 3.4 g/dL 3.5-5 L 2745772769) ALK PHOS (test code = 76 U/L 34-122 9920684950) ALTv (test code = 15 U/L 5-50 1742-6) AST(SGOT) (test code = 17 U/L 13-40 5340650583) eGFR Calculation mL/min/1.73m2 (Non-) (test code = 2969170574) eGFR Calculation mL/min/1.73m2 () (test code = 2136663781) JOEY (test code = JOEY) Association of [...] tests). Lab Interpretation Abnormal (test code = 34857-8) [facility]. METABOLIC PANEL ([id number])2020-02-07 17:18:00 Test Item Value Reference Range Interpretation Comments NA (test code = 141 mmol/L 135-145 5818109661) K (test code = 4.3 mmol/L 3.5-5 0300159895) CL (test code = 103 mmol/L 98-108 1670050720) CO2 TOTAL (test code = 30 mmol/L 23-31 5723933512) AGAP (test code = 2-16 7768353542) BUN (test code = 13 mg/dL 7-23 0750391368) GLUCOSE (test code = 91 mg/dL 70-110 2714444822) CREATININE (test code = 0.80 mg/dL 0.6-1.25 3700699356) TOTAL BILI (test code = 0.6 mg/dL 0.1-1.8 2619772247) CALCIUM (test code = 9.7 mg/dL 8.6-10.6 7753779985) T PROTEIN (test code = 5.6 g/dL 6.3-8.2 L 2993785928) ALBUMIN (test code = 3.4 g/dL 3.5-5 L 5057745735) ALK PHOS (test code = 76 U/L 34-122 6948160133) ALTv (test code = 15 U/L 5-50 2-6) AST(SGOT) (test code = 17 U/L 13-40 9024054872) eGFR Calculation mL/min/1.73m2 (Non-) (test code = 4530836508) eGFR Calculation mL/min/1.73m2 () (test code = 8402190291) JOEY (test code = JOEY) Association of [...] tests). Lab Interpretation Abnormal (test code = 50705-1) [facility] ([id number])2020-02-07 17:18:00 Test Item Value Reference Range Interpretation Comments NA (test code = 141 mmol/L 135-145 1071370474) K (test code = 4.3 mmol/L 3.5-5 0427937615) CL (test code = 103 mmol/L 98-108 8117632660) CO2 TOTAL (test code = 30 mmol/L 23-31 4338773329) AGAP (test code = 2-16 7623253256) BUN (test code = 13 mg/dL 7-23 1854621393) GLUCOSE (test code = 91 mg/dL 70-110 9152682239) CREATININE (test code = 0.80 mg/dL 0.6-1.25 0497251182) TOTAL BILI (test code = 0.6 mg/dL 0.1-1.3 3285456250) CALCIUM (test code = 9.7 mg/dL 8.6-10.6 0553676763) T PROTEIN (test code = 5.6 g/dL 6.3-8.2 L 3565426528) ALBUMIN (test code = 3.4 g/dL 3.5-5 L 4425205396) ALK PHOS (test code = 76 U/L 34-122 4477147900) ALTv (test code = 15 U/L 5-50 1742-6) AST(SGOT) (test code = 17 U/L 13-40 7166252216) eGFR Calculation mL/min/1.73m2 (Non-) (test code = 0165000302) eGFR Calculation mL/min/1.73m2 () (test code = 8089241848) JOEY (test code = JOEY) Association of [...] tests). Lab Interpretation Abnormal (test code = 17276-2) [facility]. METABOLIC PANEL ([id number])2020-02-07 17:18:00 Test Item Value Reference Range Interpretation Comments NA (test code = 141 mmol/L 135-145 0531035239) K (test code = 4.3 mmol/L 3.5-5 6756680135) CL (test code = 103 mmol/L 98-108 7855520610) CO2 TOTAL (test code = 30 mmol/L 23-31 7246066224) AGAP (test code = 2-16 7910062330) BUN (test code = 13 mg/dL 7-23 7260977712) GLUCOSE (test code = 91 mg/dL 70-110 2179842833) CREATININE (test code = 0.80 mg/dL 0.6-1.25 1797737485) TOTAL BILI (test code = 0.6 mg/dL 0.1-1.8 2553725123) CALCIUM (test code = 9.7 mg/dL 8.6-10.6 7467541017) T PROTEIN (test code = 5.6 g/dL 6.3-8.2 L 1954934214) ALBUMIN (test code = 3.4 g/dL 3.5-5 L 9669182386) ALK PHOS (test code = 76 U/L 34-122 4947042146) ALTv (test code = 15 U/L 5-50 1742-6) AST(SGOT) (test code = 17 U/L 13-40 0632227946) eGFR Calculation mL/min/1.73m2 (Non-) (test code = 2574158528) eGFR Calculation mL/min/1.73m2 () (test code = 9856561349) JOEY (test code = JOEY) Association of [...] tests). Lab Interpretation Abnormal (test code = 39617-3) [facility]. METABOLIC PANEL ([id number])2020-02-07 17:18:00 Test Item Value Reference Range Interpretation Comments NA (test code = 141 mmol/L 135-145 1375949163) K (test code = 4.3 mmol/L 3.5-5 7626835600) CL (test code = 103 mmol/L 98-108 1783027836) CO2 TOTAL (test code = 30 mmol/L 23-31 3346614228) AGAP (test code = 2-16 9782007143) BUN (test code = 13 mg/dL 7-23 1325866489) GLUCOSE (test code = 91 mg/dL 70-110 2210513685) CREATININE (test code = 0.80 mg/dL 0.6-1.25 7149249243) TOTAL BILI (test code = 0.6 mg/dL 0.1-1.0 5389651513) CALCIUM (test code = 9.7 mg/dL 8.6-10.6 8598992758) T PROTEIN (test code = 5.6 g/dL 6.3-8.2 L 8730024239) ALBUMIN (test code = 3.4 g/dL 3.5-5 L 8023654551) ALK PHOS (test code = 76 U/L 34-122 3852345834) ALTv (test code = 15 U/L 5-50 1742-6) AST(SGOT) (test code = 17 U/L 13-40 8217892243) eGFR Calculation mL/min/1.73m2 (Non-) (test code = 3944414590) eGFR Calculation mL/min/1.73m2 () (test code = 9356971404) JOEY (test code = JOEY) Association of [...] tests). Lab Interpretation Abnormal (test code = 66376-5) [facility]. METABOLIC PANEL ([id number])2020-02-07 17:18:00 Test Item Value Reference Range Interpretation Comments NA (test code = 141 mmol/L 135-145 2956730777) K (test code = 4.3 mmol/L 3.5-5 3280144661) CL (test code = 103 mmol/L 98-108 5645747844) CO2 TOTAL (test code = 30 mmol/L 23-31 7133044828) AGAP (test code = 2-16 2691926045) BUN (test code = 13 mg/dL 7-23 7044957945) GLUCOSE (test code = 91 mg/dL 70-110 2826080074) CREATININE (test code = 0.80 mg/dL 0.6-1.25 8222827445) TOTAL BILI (test code = 0.6 mg/dL 0.1-1.5 1918657971) CALCIUM (test code = 9.7 mg/dL 8.6-10.6 8766304162) T PROTEIN (test code = 5.6 g/dL 6.3-8.2 L 2267983000) ALBUMIN (test code = 3.4 g/dL 3.5-5 L 7451785816) ALK PHOS (test code = 76 U/L 34-122 5781428059) ALTv (test code = 15 U/L 5-50 1742-6) AST(SGOT) (test code = 17 U/L 13-40 3765556913) eGFR Calculation mL/min/1.73m2 (Non-) (test code = 9229550870) eGFR Calculation mL/min/1.73m2 () (test code = 4847694386) JOEY (test code = JOEY) Association of [...] tests). Lab Interpretation Abnormal (test code = 99557-7) [facility]. METABOLIC PANEL ([id number])2020-02-07 17:18:00 Test Item Value Reference Range Interpretation Comments NA (test code = 141 mmol/L 135-145 6146209889) K (test code = 4.3 mmol/L 3.5-5 2511995610) CL (test code = 103 mmol/L 98-108 2087492818) CO2 TOTAL (test code = 30 mmol/L 23-31 3066007044) AGAP (test code = 2-16 0421199135) BUN (test code = 13 mg/dL 7-23 8813151577) GLUCOSE (test code = 91 mg/dL 70-110 1983971704) CREATININE (test code = 0.80 mg/dL 0.6-1.25 7142165412) TOTAL BILI (test code = 0.6 mg/dL 0.1-1.5 3128461217) CALCIUM (test code = 9.7 mg/dL 8.6-10.6 7801439263) T PROTEIN (test code = 5.6 g/dL 6.3-8.2 L 7372304122) ALBUMIN (test code = 3.4 g/dL 3.5-5 L 7558614966) ALK PHOS (test code = 76 U/L 34-122 0473979219) ALTv (test code = 15 U/L 5-50 2-6) AST(SGOT) (test code = 17 U/L 13-40 2679130031) eGFR Calculation mL/min/1.73m2 (Non-) (test code = 3096464746) eGFR Calculation mL/min/1.73m2 () (test code = 3319943446) JOEY (test code = JOEY) Association of [...] tests). Lab Interpretation Abnormal (test code = 54065-5) [facility] ([id number])2020-02-07 17:18:00 Test Item Value Reference Range Interpretation Comments NA (test code = 141 mmol/L 135-145 0375170487) K (test code = 4.3 mmol/L 3.5-5 6351552733) CL (test code = 103 mmol/L 98-108 8547607977) CO2 TOTAL (test code = 30 mmol/L 23-31 2929777713) AGAP (test code = 2-16 8437297756) BUN (test code = 13 mg/dL 7-23 7303898044) GLUCOSE (test code = 91 mg/dL 70-110 7652993364) CREATININE (test code = 0.80 mg/dL 0.6-1.25 7138228834) TOTAL BILI (test code = 0.6 mg/dL 0.1-1.1 3334460803) CALCIUM (test code = 9.7 mg/dL 8.6-10.6 1955679442) T PROTEIN (test code = 5.6 g/dL 6.3-8.2 L 4938218029) ALBUMIN (test code = 3.4 g/dL 3.5-5 L 1266096567) ALK PHOS (test code = 76 U/L 34-122 4364455257) ALTv (test code = 15 U/L 5-50 1742-6) AST(SGOT) (test code = 17 U/L 13-40 8484487430) eGFR Calculation mL/min/1.73m2 (Non-) (test code = 6231535559) eGFR Calculation mL/min/1.73m2 () (test code = 7231000690) JOEY (test code = JOEY) Association of [...] tests). Lab Interpretation Abnormal (test code = 93925-9) [facility]. METABOLIC PANEL ([id number])2020-02-07 17:18:00 Test Item Value Reference Range Interpretation Comments NA (test code = 141 mmol/L 135-145 0407470749) K (test code = 4.3 mmol/L 3.5-5 5482247429) CL (test code = 103 mmol/L 98-108 9871835923) CO2 TOTAL (test code = 30 mmol/L 23-31 0772112141) AGAP (test code = 2-16 8901776382) BUN (test code = 13 mg/dL 7-23 7360502518) GLUCOSE (test code = 91 mg/dL 70-110 3857962500) CREATININE (test code = 0.80 mg/dL 0.6-1.25 3024559256) TOTAL BILI (test code = 0.6 mg/dL 0.1-1.9 6650239188) CALCIUM (test code = 9.7 mg/dL 8.6-10.6 1398121267) T PROTEIN (test code = 5.6 g/dL 6.3-8.2 L 4610120937) ALBUMIN (test code = 3.4 g/dL 3.5-5 L 6648667351) ALK PHOS (test code = 76 U/L 34-122 2586341962) ALTv (test code = 15 U/L 5-50 1742-6) AST(SGOT) (test code = 17 U/L 13-40 6304808756) eGFR Calculation mL/min/1.73m2 (Non-) (test code = 4131279141) eGFR Calculation mL/min/1.73m2 () (test code = 0576568088) JOEY (test code = JOEY) Association of [...] tests). Lab Interpretation Abnormal (test code = 13735-2) [facility]. METABOLIC PANEL ([id number])2020-02-07 17:18:00 Test Item Value Reference Range Interpretation Comments NA (test code = 141 mmol/L 135-145 8617752641) K (test code = 4.3 mmol/L 3.5-5 6611719924) CL (test code = 103 mmol/L 98-108 6673403742) CO2 TOTAL (test code = 30 mmol/L 23-31 8391623149) AGAP (test code = 2-16 4894972500) BUN (test code = 13 mg/dL 7-23 2903966748) GLUCOSE (test code = 91 mg/dL 70-110 0122008029) CREATININE (test code = 0.80 mg/dL 0.6-1.25 2897005643) TOTAL BILI (test code = 0.6 mg/dL 0.1-1.1 1295169795) CALCIUM (test code = 9.7 mg/dL 8.6-10.6 9850357680) T PROTEIN (test code = 5.6 g/dL 6.3-8.2 L 6444015575) ALBUMIN (test code = 3.4 g/dL 3.5-5 L 2985288258) ALK PHOS (test code = 76 U/L 34-122 8505650200) ALTv (test code = 15 U/L 5-50 1742-6) AST(SGOT) (test code = 17 U/L 13-40 5259637696) eGFR Calculation mL/min/1.73m2 (Non-) (test code = 3557699221) eGFR Calculation mL/min/1.73m2 () (test code = 5246833941) JOEY (test code = JOEY) Association of [...] tests). Lab Interpretation Abnormal (test code = 31873-5) [facility]. METABOLIC PANEL ([id number])2020-02-07 17:18:00 Test Item Value Reference Range Interpretation Comments NA (test code = 141 mmol/L 135-145 2275326426) K (test code = 4.3 mmol/L 3.5-5 0365932760) CL (test code = 103 mmol/L 98-108 9578381384) CO2 TOTAL (test code = 30 mmol/L 23-31 2334734032) AGAP (test code = 2-16 4861446983) BUN (test code = 13 mg/dL 7-23 2539631661) GLUCOSE (test code = 91 mg/dL 70-110 8820161276) CREATININE (test code = 0.80 mg/dL 0.6-1.25 5984900903) TOTAL BILI (test code = 0.6 mg/dL 0.1-1.9 4176328284) CALCIUM (test code = 9.7 mg/dL 8.6-10.6 1875855913) T PROTEIN (test code = 5.6 g/dL 6.3-8.2 L 2733301886) ALBUMIN (test code = 3.4 g/dL 3.5-5 L 7551800476) ALK PHOS (test code = 76 U/L 34-122 8783054911) ALTv (test code = 15 U/L 5-50 1742-6) AST(SGOT) (test code = 17 U/L 13-40 6688223235) eGFR Calculation mL/min/1.73m2 (Non-) (test code = 7178003123) eGFR Calculation mL/min/1.73m2 () (test code = 3363790409) JOEY (test code = JOEY) Association of [...] tests). Lab Interpretation Abnormal (test code = 86593-8) [facility]. METABOLIC PANEL ([id number])2020-02-07 17:18:00 Test Item Value Reference Range Interpretation Comments NA (test code = 141 mmol/L 135-145 5769482419) K (test code = 4.3 mmol/L 3.5-5 8312356642) CL (test code = 103 mmol/L 98-108 8928556225) CO2 TOTAL (test code = 30 mmol/L 23-31 0285835586) AGAP (test code = 2-16 0086426631) BUN (test code = 13 mg/dL 7-23 6206735643) GLUCOSE (test code = 91 mg/dL 70-110 9385865783) CREATININE (test code = 0.80 mg/dL 0.6-1.25 5975311314) TOTAL BILI (test code = 0.6 mg/dL 0.1-1.0 3523680485) CALCIUM (test code = 9.7 mg/dL 8.6-10.6 2872899600) T PROTEIN (test code = 5.6 g/dL 6.3-8.2 L 9138056804) ALBUMIN (test code = 3.4 g/dL 3.5-5 L 0450636283) ALK PHOS (test code = 76 U/L 34-122 5067313451) ALTv (test code = 15 U/L 5-50 2-6) AST(SGOT) (test code = 17 U/L 13-40 1822399322) eGFR Calculation mL/min/1.73m2 (Non-) (test code = 6390214030) eGFR Calculation mL/min/1.73m2 () (test code = 5339026374) JOEY (test code = JOEY) Association of [...] tests). Lab Interpretation Abnormal (test code = 70078-7) [facility][id number][facility]2020-02-07 17:18:00 Test Item Value Reference Range Interpretation Comments NA (test code = 141 mmol/L 135-145 9860619753) K (test code = 4.3 mmol/L 3.5-5 0182877104) CL (test code = 103 mmol/L 98-108 7106826030) CO2 TOTAL (test code = 30 mmol/L 23-31 6160872824) AGAP (test code = 2-16 6653553595) BUN (test code = 13 mg/dL 7-23 3257652486) GLUCOSE (test code = 91 mg/dL 70-110 3427943262) CREATININE (test code = 0.80 mg/dL 0.6-1.25 8859125446) TOTAL BILI (test code = 0.6 mg/dL 0.1-1.6 6955434044) CALCIUM (test code = 9.7 mg/dL 8.6-10.6 2987463513) T PROTEIN (test code = 5.6 g/dL 6.3-8.2 L 9262548430) ALBUMIN (test code = 3.4 g/dL 3.5-5 L 5512003509) ALK PHOS (test code = 76 U/L 34-122 8237281896) ALTv (test code = 15 U/L 5-50 1742-6) AST(SGOT) (test code = 17 U/L 13-40 8778078332) eGFR Calculation mL/min/1.73m2 (Non-) (test code = 3150585462) eGFR Calculation mL/min/1.73m2 () (test code = 7260663861) JOEY (test code = JOEY) Association of [...] tests). Lab Interpretation Abnormal (test code = 69582-4) [facility], [id number] 17:06:00 Test Item Value Reference Range Interpretation Comments VALPROIC A (test code = 38 ug/mL 50-100 L [id number]) JOEY (test code = JOEY) Toxic Range: ?Greater than 100 ug/mL Lab Interpretation (test Abnormal code = 11599-6) [id number] [facility]:06:00 Test Item Value Reference Range Interpretation Comments VALPROIC A (test code = 38 ug/mL 50-100 L [id number]) JOEY (test code = JOEY) Toxic Range: ?Greater than 100 ug/mL Lab Interpretation (test Abnormal code = 22688-0) [facility] [id number] 17:06:00 Test Item Value Reference Range Interpretation Comments VALPROIC A (test code = 38 ug/mL 50-100 L [id number]) JOEY (test code = JOEY) Toxic Range: ?Greater than 100 ug/mL Lab Interpretation (test Abnormal code = 57365-3) [facility] [id number] 17:06:00 Test Item Value Reference Range Interpretation Comments VALPROIC A (test code = 38 ug/mL 50-100 L [id number]) JOEY (test code = JOEY) Toxic Range: ?Greater than 100 ug/mL Lab Interpretation (test Abnormal code = 36524-7) [facility] [id number] 17:06:00 Test Item Value Reference Range Interpretation Comments VALPROIC A (test code = 38 ug/mL 50-100 L [id number]) JOEY (test code = JOEY) Toxic Range: ?Greater than 100 ug/mL Lab Interpretation (test Abnormal code = 44766-1) [facility] [id number] 17:06:00 Test Item Value Reference Range Interpretation Comments VALPROIC A (test code = 38 ug/mL 50-100 L [id number]) JOEY (test code = JOEY) Toxic Range: ?Greater than 100 ug/mL Lab Interpretation (test Abnormal code = 15921-2) [facility] [id number] 17:06:00 Test Item Value Reference Range Interpretation Comments VALPROIC A (test code = 38 ug/mL 50-100 L [id number]) JOEY (test code = JOEY) Toxic Range: ?Greater than 100 ug/mL Lab Interpretation (test Abnormal code = 16915-2) [facility] [id number] 17:06:00 Test Item Value Reference Range Interpretation Comments VALPROIC A (test code = 38 ug/mL 50-100 L [id number]) JOEY (test code = JOEY) Toxic Range: ?Greater than 100 ug/mL Lab Interpretation (test Abnormal code = 50687-6) [facility] [id number] 17:06:00 Test Item Value Reference Range Interpretation Comments VALPROIC A (test code = 38 ug/mL 50-100 L [id number]) JOEY (test code = JOEY) Toxic Range: ?Greater than 100 ug/mL Lab Interpretation (test Abnormal code = 21246-1) [facility] [id number] 17:06:00 Test Item Value Reference Range Interpretation Comments VALPROIC A (test code = 38 ug/mL 50-100 L [id number]) JOEY (test code = JOEY) Toxic Range: ?Greater than 100 ug/mL Lab Interpretation (test Abnormal code = 59236-4) [facility] [id number] 17:06:00 Test Item Value Reference Range Interpretation Comments VALPROIC A (test code = 38 ug/mL 50-100 L [id number]) JOEY (test code = JOEY) Toxic Range: ?Greater than 100 ug/mL Lab Interpretation (test Abnormal code = 91111-6) [facility] [id number] 17:06:00 Test Item Value Reference Range Interpretation Comments VALPROIC A (test code = 38 ug/mL 50-100 L [id number]) JOEY (test code = JOEY) Toxic Range: ?Greater than 100 ug/mL Lab Interpretation (test Abnormal code = 82179-0) [facility] [id number] 17:06:00 Test Item Value Reference Range Interpretation Comments VALPROIC A (test code = 38 ug/mL 50-100 L [id number]) JOEY (test code = JOEY) Toxic Range: ?Greater than 100 ug/mL Lab Interpretation (test Abnormal code = 34951-8) [facility] [id number] 17:06:00 Test Item Value Reference Range Interpretation Comments VALPROIC A (test code = 38 ug/mL 50-100 L [id number]) JOEY (test code = JOEY) Toxic Range: ?Greater than 100 ug/mL Lab Interpretation (test Abnormal code = 15731-2) [facility] [id number] 17:06:00 Test Item Value Reference Range Interpretation Comments VALPROIC A (test code = 38 ug/mL 50-100 L [id number]) JOEY (test code = JOEY) Toxic Range: ?Greater than 100 ug/mL Lab Interpretation (test Abnormal code = 35649-5) [facility] (A1C)2020-02-07 16:23:00 Test Item Value Reference Range Interpretation Comments HGB A1C (test code = 5.1 % 4-6 4548-4) JOEY (test code = JOEY) %A1C (NGSP) Interpretation (ADA)4.8-5.6 ? ? Normal or (Non-Diabetic Range)5.7-6.4 ? ? Increased Risk (Pre-Diabetic)>6.5 ?Diabetes Indicated Lab Interpretation Normal (test code = 60337-9) [facility]A1C)2020-02-07 16:23:00 Test Item Value Reference Range Interpretation Comments HGB A1C (test code = 5.1 % 4-6 4548-4) JOEY (test code = JOEY) %A1C (NGSP) Interpretation (ADA)4.8-5.6 ? ? Normal or (Non-Diabetic Range)5.7-6.4 ? ? Increased Risk (Pre-Diabetic)>6.5 ?Diabetes Indicated Lab Interpretation Normal (test code = 32669-7) [facility]A1C)2020-02-07 16:23:00 Test Item Value Reference Range Interpretation Comments HGB A1C (test code = 5.1 % 4-6 4548-4) JOEY (test code = JOEY) %A1C (NGSP) Interpretation (ADA)4.8-5.6 ? ? Normal or (Non-Diabetic Range)5.7-6.4 ? ? Increased Risk (Pre-Diabetic)>6.5 ?Diabetes Indicated Lab Interpretation Normal (test code = 55444-2) [facility]A1C)2020-02-07 16:23:00 Test Item Value Reference Range Interpretation Comments HGB A1C (test code = 5.1 % 4-6 4548-4) JOEY (test code = JOEY) %A1C (NGSP) Interpretation (ADA)4.8-5.6 ? ? Normal or (Non-Diabetic Range)5.7-6.4 ? ? Increased Risk (Pre-Diabetic)>6.5 ?Diabetes Indicated Lab Interpretation Normal (test code = 77350-9) [facility] (A1C)2020-02-07 16:23:00 Test Item Value Reference Range Interpretation Comments HGB A1C (test code = 5.1 % 4-6 4548-4) JOEY (test code = JOEY) %A1C (NGSP) Interpretation (ADA)4.8-5.6 ? ? Normal or (Non-Diabetic Range)5.7-6.4 ? ? Increased Risk (Pre-Diabetic)>6.5 ?Diabetes Indicated Lab Interpretation Normal (test code = 71355-9) [facility] (A1C)2020-02-07 16:23:00 Test Item Value Reference Range Interpretation Comments HGB A1C (test code = 5.1 % 4-6 4548-4) JOEY (test code = JOEY) %A1C (NGSP) Interpretation (ADA)4.8-5.6 ? ? Normal or (Non-Diabetic Range)5.7-6.4 ? ? Increased Risk (Pre-Diabetic)>6.5 ?Diabetes Indicated Lab Interpretation Normal (test code = 48938-3) [facility] (A1C)2020-02-07 16:23:00 Test Item Value Reference Range Interpretation Comments HGB A1C (test code = 5.1 % 4-6 4548-4) JOEY (test code = JOEY) %A1C (NGSP) Interpretation (ADA)4.8-5.6 ? ? Normal or (Non-Diabetic Range)5.7-6.4 ? ? Increased Risk (Pre-Diabetic)>6.5 ?Diabetes Indicated Lab Interpretation Normal (test code = 57392-6) [facility]A1C)2020-02-07 16:23:00 Test Item Value Reference Range Interpretation Comments HGB A1C (test code = 5.1 % 4-6 4548-4) JOEY (test code = JOEY) %A1C (NGSP) Interpretation (ADA)4.8-5.6 ? ? Normal or (Non-Diabetic Range)5.7-6.4 ? ? Increased Risk (Pre-Diabetic)>6.5 ?Diabetes Indicated Lab Interpretation Normal (test code = 27402-0) [facility]A1C)2020-02-07 16:23:00 Test Item Value Reference Range Interpretation Comments HGB A1C (test code = 5.1 % 4-6 4548-4) JOEY (test code = JOEY) %A1C (NGSP) Interpretation (ADA)4.8-5.6 ? ? Normal or (Non-Diabetic Range)5.7-6.4 ? ? Increased Risk (Pre-Diabetic)>6.5 ?Diabetes Indicated Lab Interpretation Normal (test code = 30534-3) [facility] (A1C)2020-02-07 16:23:00 Test Item Value Reference Range Interpretation Comments HGB A1C (test code = 5.1 % 4-6 4548-4) JOEY (test code = JOEY) %A1C (NGSP) Interpretation (ADA)4.8-5.6 ? ? Normal or (Non-Diabetic Range)5.7-6.4 ? ? Increased Risk (Pre-Diabetic)>6.5 ?Diabetes Indicated Lab Interpretation Normal (test code = 66262-7) [facility]A1C)2020-02-07 16:23:00 Test Item Value Reference Range Interpretation Comments HGB A1C (test code = 5.1 % 4-6 4548-4) JOEY (test code = JOEY) %A1C (NGSP) Interpretation (ADA)4.8-5.6 ? ? Normal or (Non-Diabetic Range)5.7-6.4 ? ? Increased Risk (Pre-Diabetic)>6.5 ?Diabetes Indicated Lab Interpretation Normal (test code = 29818-4) [facility]A1C)2020-02-07 16:23:00 Test Item Value Reference Range Interpretation Comments HGB A1C (test code = 5.1 % 4-6 4548-4) JOEY (test code = JOEY) %A1C (NGSP) Interpretation (ADA)4.8-5.6 ? ? Normal or (Non-Diabetic Range)5.7-6.4 ? ? Increased Risk (Pre-Diabetic)>6.5 ?Diabetes Indicated Lab Interpretation Normal (test code = 95095-4) [facility]A1C)2020-02-07 16:23:00 Test Item Value Reference Range Interpretation Comments HGB A1C (test code = 5.1 % 4-6 4548-4) JOEY (test code = JOEY) %A1C (NGSP) Interpretation (ADA)4.8-5.6 ? ? Normal or (Non-Diabetic Range)5.7-6.4 ? ? Increased Risk (Pre-Diabetic)>6.5 ?Diabetes Indicated Lab Interpretation Normal (test code = 67969-5) [facility]A1C)2020-02-07 16:23:00 Test Item Value Reference Range Interpretation Comments HGB A1C (test code = 5.1 % 4-6 4548-4) JOEY (test code = JOEY) %A1C (NGSP) Interpretation (ADA)4.8-5.6 ? ? Normal or (Non-Diabetic Range)5.7-6.4 ? ? Increased Risk (Pre-Diabetic)>6.5 ?Diabetes Indicated Lab Interpretation Normal (test code = 16388-4) [facility]C)2020-02-07 16:23:00 Test Item Value Reference Range Interpretation Comments HGB A1C (test code = 5.1 % 4-6 4548-4) JOEY (test code = JOEY) %A1C (NGSP) Interpretation (ADA)4.8-5.6 ? ? Normal or (Non-Diabetic Range)5.7-6.4 ? ? Increased Risk (Pre-Diabetic)>6.5 ?Diabetes Indicated Lab Interpretation Normal (test code = 75424-4) [facility] [id number] 15:41:00 Test Item Value Reference Range Interpretation Comments WBC (test code = See_Comment [Automated 1290-2) message] The sy stem which generated this result transmitted reference range : 4.20 - 10.70 10*3/?L. The reference range was not used to interpret this result as normal/abnormal . RBC (test code = See_Comment [Automated 719-8) message] The sy stem which generated this [...] RDW-SD (test code = 51.1 fL 38.5-51.6 01905-8) RDW-CV (test code = 13.9 % 12.1-15.4 788-0) PLT (test code = See_Comment [Automated 907-3) message] The sy stem which generated this result transmitted reference range : 150 - 328 10*3/ ?L. The reference r sarahy was not used to interpret this result as normal/abnormal . MPV (test code = 10.3 fL 9.8-13 31484-6) NRBC/100 WBC (test See_Comment [Automat ed code = 5844853084) message] The system which generated this result transmitted reference range : 0.0 - 10.0 /100 WBCs. The refer ence range was not u sed to interpret th is result as normal/abnormal . NRBC x10^3 (test code <0.01 See_Comment [Auto mated = 7005200917) message] The s ystem which generated this result transmitted reference range : 10*3/?L. The reference range was not used to interpret this result as normal/abnormal . GRAN MAT (NEUT) % 64.3 % (test code = 770-8) IMM GRAN % (test code 0.30 % = 1794994387) LYMPH % (test code = 22.6 % 736-9) MONO % (test code = 8.8 % 5905-5) EOS % (test code = 3.0 % 713-8) BASO % (test code = 1.0 % 706-2) GRAN MAT x10^3(ANC) 4.02 10*3/uL 1.99-6.95 (test code = 7502173627) IMM GRAN x10^3 (test <0.03 0-0.06 code = 9536940910) LYMPH x10^3 (test code 1.41 10*3/uL 1.09-3.23 = 731-0) MONO x10^3 (test code 0.55 10*3/uL 0.36-1.02 = 742-7) EOS x10^3 (test code = 0.19 10*3/uL 0.06-0.53 711-2) BASO x10^3 (test code 0.06 10*3/uL 0.01-0.09 = 704-7) Lab Interpretation Abnormal (test code = 42264-4) [facility] WITH [id number] 15:41:00 Test Item Value Reference Range Interpretation [...] RDW-SD (test code = 51.1 fL 38.5-51.6 65305-9) RDW-CV (test code = 13.9 % 12.1-15.4 788-0) PLT (test code = See_Comment [Automated 777-3) message] The sy stem which generated this result transmitted reference range : 150 - 328 10*3/ ?L. The reference r sarahy was not used to interpret this result as normal/abnormal . MPV (test code = 10.3 fL 9.8-13 47939-9) NRBC/100 WBC (test See_Comment [Automat ed code = 2045235350) message] The system which generated this result transmitted reference range : 0.0 - 10.0 /100 WBCs. The refer ence range was not u sed to interpret th is result as normal/abnormal . NRBC x10^3 (test code <0.01 See_Comment [Auto mated = 2373792499) message] The s ystem which generated this result transmitted reference range : 10*3/?L. The reference range was not used to interpret this result as normal/abnormal . GRAN MAT (NEUT) % 64.3 % (test code = 770-8) IMM GRAN % (test code 0.30 % = 4150141625) LYMPH % (test code = 22.6 % 736-9) MONO % (test code = 8.8 % 5905-5) EOS % (test code = 3.0 % 713-8) BASO % (test code = 1.0 % 706-2) GRAN MAT x10^3(ANC) 4.02 10*3/uL 1.99-6.95 (test code = 0357242004) IMM GRAN x10^3 (test <0.03 0-0.06 code = 1168427137) LYMPH x10^3 (test code 1.41 10*3/uL 1.09-3.23 = 731-0) MONO x10^3 (test code 0.55 10*3/uL 0.36-1.02 = 742-7) EOS x10^3 (test code = 0.19 10*3/uL 0.06-0.53 711-2) BASO x10^3 (test code 0.06 10*3/uL 0.01-0.09 = 704-7) Lab Interpretation Abnormal (test code = 73883-2) [facility] WITH [id number] 15:41:00 Test Item Value Reference Range Interpretation Comments WBC (test code = See_Comment [Automated 1090-2) message] The sy stem which generated this result transmitted reference range : 4.20 - 10.70 10*3/?L. The reference range was not used to interpret this result as normal/abnormal . RBC (test code = See_Comment [Automated 629-8) message] The sy stem which generated this [...] RDW-SD (test code = 51.1 fL 38.5-51.6 05576-4) RDW-CV (test code = 13.9 % 12.1-15.4 788-0) PLT (test code = See_Comment [Automated 777-3) message] The sy stem which generated this result transmitted reference range : 150 - 328 10*3/ ?L. The reference r sarahy was not used to interpret this result as normal/abnormal . MPV (test code = 10.3 fL 9.8-13 75648-9) NRBC/100 WBC (test See_Comment [Automat ed code = 3996701801) message] The system which generated this result transmitted reference range : 0.0 - 10.0 /100 WBCs. The refer ence range was not u sed to interpret th is result as normal/abnormal . NRBC x10^3 (test code <0.01 See_Comment [Auto mated = 6075576438) message] The s ystem which generated this result transmitted reference range : 10*3/?L. The reference range was not used to interpret this result as normal/abnormal . GRAN MAT (NEUT) % 64.3 % (test code = 770-8) IMM GRAN % (test code 0.30 % = 7393778884) LYMPH % (test code = 22.6 % 736-9) MONO % (test code = 8.8 % 5905-5) EOS % (test code = 3.0 % 713-8) BASO % (test code = 1.0 % 706-2) GRAN MAT x10^3(ANC) 4.02 10*3/uL 1.99-6.95 (test code = 3964242623) IMM GRAN x10^3 (test <0.03 0-0.06 code = 1554206196) LYMPH x10^3 (test code 1.41 10*3/uL 1.09-3.23 = 731-0) MONO x10^3 (test code 0.55 10*3/uL 0.36-1.02 = 742-7) EOS x10^3 (test code = 0.19 10*3/uL 0.06-0.53 711-2) BASO x10^3 (test code 0.06 10*3/uL 0.01-0.09 = 704-7) Lab Interpretation Abnormal (test code = 58016-5) [facility] WITH [id number] 15:41:00 Test Item Value Reference Range Interpretation [...] RDW-SD (test code = 51.1 fL 38.5-51.6 69529-0) RDW-CV (test code = 13.9 % 12.1-15.4 788-0) PLT (test code = See_Comment [Automated 777-3) message] The sy stem which generated this result transmitted reference range : 150 - 328 10*3/ ?L. The reference r sarahy was not used to interpret this result as normal/abnormal . MPV (test code = 10.3 fL 9.8-13 82098-3) NRBC/100 WBC (test See_Comment [Automat ed code = 4615359681) message] The system which generated this result transmitted reference range : 0.0 - 10.0 /100 WBCs. The refer ence range was not u sed to interpret th is result as normal/abnormal . NRBC x10^3 (test code <0.01 See_Comment [Auto mated = 6566186096) message] The s ystem which generated this result transmitted reference range : 10*3/?L. The reference range was not used to interpret this result as normal/abnormal . GRAN MAT (NEUT) % 64.3 % (test code = 770-8) IMM GRAN % (test code 0.30 % = 4201619249) LYMPH % (test code = 22.6 % 736-9) MONO % (test code = 8.8 % 5905-5) EOS % (test code = 3.0 % 713-8) BASO % (test code = 1.0 % 706-2) GRAN MAT x10^3(ANC) 4.02 10*3/uL 1.99-6.95 (test code = 5368064702) IMM GRAN x10^3 (test <0.03 0-0.06 code = 6798574727) LYMPH x10^3 (test code 1.41 10*3/uL 1.09-3.23 = 731-0) MONO x10^3 (test code 0.55 10*3/uL 0.36-1.02 = 742-7) EOS x10^3 (test code = 0.19 10*3/uL 0.06-0.53 711-2) BASO x10^3 (test code 0.06 10*3/uL 0.01-0.09 = 704-7) Lab Interpretation Abnormal (test code = 53160-6) [facility] WITH [id number] 15:41:00 Test Item Value Reference Range Interpretation Comments WBC (test code = See_Comment [Automated 6690-2) message] The sy stem which generated this result transmitted reference range : 4.20 - 10.70 10*3/?L. The reference range was not used to interpret this result as normal/abnormal . RBC (test code = See_Comment [Automated 679-8) message] The sy stem which generated this [...] RDW-SD (test code = 51.1 fL 38.5-51.6 67399-0) RDW-CV (test code = 13.9 % 12.1-15.4 788-0) PLT (test code = See_Comment [Automated 777-3) message] The sy stem which generated this result transmitted reference range : 150 - 328 10*3/ ?L. The reference r sarahy was not used to interpret this result as normal/abnormal . MPV (test code = 10.3 fL 9.8-13 65640-2) NRBC/100 WBC (test See_Comment [Automat ed code = 2675462328) message] The system which generated this result transmitted reference range : 0.0 - 10.0 /100 WBCs. The refer ence range was not u sed to interpret th is result as normal/abnormal . NRBC x10^3 (test code <0.01 See_Comment [Auto mated = 9338984567) message] The s ystem which generated this result transmitted reference range : 10*3/?L. The reference range was not used to interpret this result as normal/abnormal . GRAN MAT (NEUT) % 64.3 % (test code = 770-8) IMM GRAN % (test code 0.30 % = 8132600509) LYMPH % (test code = 22.6 % 736-9) MONO % (test code = 8.8 % 5905-5) EOS % (test code = 3.0 % 713-8) BASO % (test code = 1.0 % 706-2) GRAN MAT x10^3(ANC) 4.02 10*3/uL 1.99-6.95 (test code = 1745001110) IMM GRAN x10^3 (test <0.03 0-0.06 code = 3358180509) LYMPH x10^3 (test code 1.41 10*3/uL 1.09-3.23 = 731-0) MONO x10^3 (test code 0.55 10*3/uL 0.36-1.02 = 742-7) EOS x10^3 (test code = 0.19 10*3/uL 0.06-0.53 711-2) BASO x10^3 (test code 0.06 10*3/uL 0.01-0.09 = 704-7) Lab Interpretation Abnormal (test code = 63855-9) [facility] WITH [id number] 15:41:00 Test Item Value Reference Range Interpretation [...] RDW-SD (test code = 51.1 fL 38.5-51.6 02453-2) RDW-CV (test code = 13.9 % 12.1-15.4 788-0) PLT (test code = See_Comment [Automated 777-3) message] The sy stem which generated this result transmitted reference range : 150 - 328 10*3/ ?L. The reference r sarahy was not used to interpret this result as normal/abnormal . MPV (test code = 10.3 fL 9.8-13 26497-0) NRBC/100 WBC (test See_Comment [Automat ed code = 7773555738) message] The system which generated this result transmitted reference range : 0.0 - 10.0 /100 WBCs. The refer ence range was not u sed to interpret th is result as normal/abnormal . NRBC x10^3 (test code <0.01 See_Comment [Auto mated = 9756003894) message] The s ystem which generated this result transmitted reference range : 10*3/?L. The reference range was not used to interpret this result as normal/abnormal . GRAN MAT (NEUT) % 64.3 % (test code = 770-8) IMM GRAN % (test code 0.30 % = 4434563365) LYMPH % (test code = 22.6 % 736-9) MONO % (test code = 8.8 % 5905-5) EOS % (test code = 3.0 % 713-8) BASO % (test code = 1.0 % 706-2) GRAN MAT x10^3(ANC) 4.02 10*3/uL 1.99-6.95 (test code = 1554194215) IMM GRAN x10^3 (test <0.03 0-0.06 code = 9998054159) LYMPH x10^3 (test code 1.41 10*3/uL 1.09-3.23 = 731-0) MONO x10^3 (test code 0.55 10*3/uL 0.36-1.02 = 742-7) EOS x10^3 (test code = 0.19 10*3/uL 0.06-0.53 711-2) BASO x10^3 (test code 0.06 10*3/uL 0.01-0.09 = 704-7) Lab Interpretation Abnormal (test code = 48680-9) [facility] WITH [id number] 15:41:00 Test Item Value Reference Range Interpretation Comments WBC (test code = See_Comment [Automated 8999-2) message] The sy stem which generated this result transmitted reference range : 4.20 - 10.70 10*3/?L. The reference range was not used to interpret this result as normal/abnormal . RBC (test code = See_Comment [Automated 133-8) message] The sy stem which generated this [...] RDW-SD (test code = 51.1 fL 38.5-51.6 18631-8) RDW-CV (test code = 13.9 % 12.1-15.4 788-0) PLT (test code = See_Comment [Automated 777-3) message] The sy stem which generated this result transmitted reference range : 150 - 328 10*3/ ?L. The reference r sarahy was not used to interpret this result as normal/abnormal . MPV (test code = 10.3 fL 9.8-13 75137-7) NRBC/100 WBC (test See_Comment [Automat ed code = 7071460857) message] The system which generated this result transmitted reference range : 0.0 - 10.0 /100 WBCs. The refer ence range was not u sed to interpret th is result as normal/abnormal . NRBC x10^3 (test code <0.01 See_Comment [Auto mated = 5774039733) message] The s ystem which generated this result transmitted reference range : 10*3/?L. The reference range was not used to interpret this result as normal/abnormal . GRAN MAT (NEUT) % 64.3 % (test code = 770-8) IMM GRAN % (test code 0.30 % = 1355334468) LYMPH % (test code = 22.6 % 736-9) MONO % (test code = 8.8 % 5905-5) EOS % (test code = 3.0 % 713-8) BASO % (test code = 1.0 % 706-2) GRAN MAT x10^3(ANC) 4.02 10*3/uL 1.99-6.95 (test code = 2960351156) IMM GRAN x10^3 (test <0.03 0-0.06 code = 5574184970) LYMPH x10^3 (test code 1.41 10*3/uL 1.09-3.23 = 731-0) MONO x10^3 (test code 0.55 10*3/uL 0.36-1.02 = 742-7) EOS x10^3 (test code = 0.19 10*3/uL 0.06-0.53 711-2) BASO x10^3 (test code 0.06 10*3/uL 0.01-0.09 = 704-7) Lab Interpretation Abnormal (test code = 62323-6) [facility] WITH [id number] 15:41:00 Test Item Value Reference Range Interpretation [...] RDW-SD (test code = 51.1 fL 38.5-51.6 17852-9) RDW-CV (test code = 13.9 % 12.1-15.4 788-0) PLT (test code = See_Comment [Automated 777-3) message] The sy stem which generated this result transmitted reference range : 150 - 328 10*3/ ?L. The reference r sarahy was not used to interpret this result as normal/abnormal . MPV (test code = 10.3 fL 9.8-13 58880-2) NRBC/100 WBC (test See_Comment [Automat ed code = [id number]) message] The system which generated this result transmitted reference range : 0.0 - 10.0 /100 WBCs. The refer ence range was not u sed to interpret th is result as normal/abnormal . NRBC x10^3 (test code <0.01 See_Comment [Auto mated = [id number]) message] The s ystem which generated this result transmitted reference range : 10*3/?L. The reference range was not used to interpret this result as normal/abnormal . GRAN MAT (NEUT) % 64.3 % (test code = 770-8) IMM GRAN % (test code 0.30 % = [id number]) LYMPH % (test code = 22.6 % 736-9) MONO % (test code = 8.8 % 5905-5) EOS % (test code = 3.0 % 713-8) BASO % (test code = 1.0 % 706-2) GRAN MAT x10^3(ANC) 4.02 10*3/uL 1.99-6.95 (test code = [id number]) IMM GRAN x10^3 (test <0.03 0-0.06 code = [id number]) LYMPH x10^3 (test code 1.41 10*3/uL 1.09-3.23 = 731-0) MONO x10^3 (test code 0.55 10*3/uL 0.36-1.02 = 742-7) EOS x10^3 (test code = 0.19 10*3/uL 0.06-0.53 711-2) BASO x10^3 (test code 0.06 10*3/uL 0.01-0.09 = 704-7) Lab Interpretation Abnormal (test code = 31303-6) [facility] WITH [id number] 15:41:00 Test Item Value Reference Range Interpretation Comments WBC (test code = See_Comment [Automated 5790-2) message] The sy stem which generated this result transmitted reference range : 4.20 - 10.70 10*3/?L. The reference range was not used to interpret this result as normal/abnormal . RBC (test code = See_Comment [Automated 9-8) message] The sy stem which generated this [...] RDW-SD (test code = 51.1 fL 38.5-51.6 06147-7) RDW-CV (test code = 13.9 % 12.1-15.4 788-0) PLT (test code = See_Comment [Automated 777-3) message] The sy stem which generated this result transmitted reference range : 150 - 328 10*3/ ?L. The reference r sarahy was not used to interpret this result as normal/abnormal . MPV (test code = 10.3 fL 9.8-13 36632-8) NRBC/100 WBC (test See_Comment [Automat ed code = 7050123353) message] The system which generated this result transmitted reference range : 0.0 - 10.0 /100 WBCs. The refer ence range was not u sed to interpret th is result as normal/abnormal . NRBC x10^3 (test code <0.01 See_Comment [Auto mated = 4192579443) message] The s ystem which generated this result transmitted reference range : 10*3/?L. The reference range was not used to interpret this result as normal/abnormal . GRAN MAT (NEUT) % 64.3 % (test code = 770-8) IMM GRAN % (test code 0.30 % = 8246566315) LYMPH % (test code = 22.6 % 736-9) MONO % (test code = 8.8 % 5905-5) EOS % (test code = 3.0 % 713-8) BASO % (test code = 1.0 % 706-2) GRAN MAT x10^3(ANC) 4.02 10*3/uL 1.99-6.95 (test code = 1608423954) IMM GRAN x10^3 (test <0.03 0-0.06 code = 6428865092) LYMPH x10^3 (test code 1.41 10*3/uL 1.09-3.23 = 731-0) MONO x10^3 (test code 0.55 10*3/uL 0.36-1.02 = 742-7) EOS x10^3 (test code = 0.19 10*3/uL 0.06-0.53 711-2) BASO x10^3 (test code 0.06 10*3/uL 0.01-0.09 = 704-7) Lab Interpretation Abnormal (test code = 55851-6) [facility] WITH [id number] 15:41:00 Test Item Value Reference Range Interpretation Comments WBC (test code = See_Comment [Automated 5390-2) message] The sy stem which generated this result transmitted reference range : 4.20 - 10.70 10*3/?L. The reference range was not used to interpret this result as normal/abnormal . RBC (test code = See_Comment [Automated 119-8) message] The sy stem which generated this [...] RDW-SD (test code = 51.1 fL 38.5-51.6 50711-3) RDW-CV (test code = 13.9 % 12.1-15.4 788-0) PLT (test code = See_Comment [Automated 777-3) message] The sy stem which generated this result transmitted reference range : 150 - 328 10*3/ ?L. The reference r sarahy was not used to interpret this result as normal/abnormal . MPV (test code = 10.3 fL 9.8-13 22827-7) NRBC/100 WBC (test See_Comment [Automat ed code = 2561183945) message] The system which generated this result transmitted reference range : 0.0 - 10.0 /100 WBCs. The refer ence range was not u sed to interpret th is result as normal/abnormal . NRBC x10^3 (test code <0.01 See_Comment [Auto mated = 1278225137) message] The s ystem which generated this result transmitted reference range : 10*3/?L. The reference range was not used to interpret this result as normal/abnormal . GRAN MAT (NEUT) % 64.3 % (test code = 770-8) IMM GRAN % (test code 0.30 % = 9956693249) LYMPH % (test code = 22.6 % 736-9) MONO % (test code = 8.8 % 5905-5) EOS % (test code = 3.0 % 713-8) BASO % (test code = 1.0 % 706-2) GRAN MAT x10^3(ANC) 4.02 10*3/uL 1.99-6.95 (test code = 4672689643) IMM GRAN x10^3 (test <0.03 0-0.06 code = 0176502861) LYMPH x10^3 (test code 1.41 10*3/uL 1.09-3.23 = 731-0) MONO x10^3 (test code 0.55 10*3/uL 0.36-1.02 = 742-7) EOS x10^3 (test code = 0.19 10*3/uL 0.06-0.53 711-2) BASO x10^3 (test code 0.06 10*3/uL 0.01-0.09 = 704-7) Lab Interpretation Abnormal (test code = 99994-6) [facility] WITH [id number] 15:41:00 Test Item Value Reference Range Interpretation [...] RDW-SD (test code = 51.1 fL 38.5-51.6 14823-1) RDW-CV (test code = 13.9 % 12.1-15.4 788-0) PLT (test code = See_Comment [Automated 777-3) message] The sy stem which generated this result transmitted reference range : 150 - 328 10*3/ ?L. The reference r sarahy was not used to interpret this result as normal/abnormal . MPV (test code = 10.3 fL 9.8-13 13654-6) NRBC/100 WBC (test See_Comment [Automat ed code = 5699460917) message] The system which generated this result transmitted reference range : 0.0 - 10.0 /100 WBCs. The refer ence range was not u sed to interpret th is result as normal/abnormal . NRBC x10^3 (test code <0.01 See_Comment [Auto mated = 0106073013) message] The s ystem which generated this result transmitted reference range : 10*3/?L. The reference range was not used to interpret this result as normal/abnormal . GRAN MAT (NEUT) % 64.3 % (test code = 770-8) IMM GRAN % (test code 0.30 % = 1304766856) LYMPH % (test code = 22.6 % 736-9) MONO % (test code = 8.8 % 5905-5) EOS % (test code = 3.0 % 713-8) BASO % (test code = 1.0 % 706-2) GRAN MAT x10^3(ANC) 4.02 10*3/uL 1.99-6.95 (test code = 7241415234) IMM GRAN x10^3 (test <0.03 0-0.06 code = 0825238345) LYMPH x10^3 (test code 1.41 10*3/uL 1.09-3.23 = 731-0) MONO x10^3 (test code 0.55 10*3/uL 0.36-1.02 = 742-7) EOS x10^3 (test code = 0.19 10*3/uL 0.06-0.53 711-2) BASO x10^3 (test code 0.06 10*3/uL 0.01-0.09 = 704-7) Lab Interpretation Abnormal (test code = 65477-1) [facility] WITH [id number] 15:41:00 Test Item Value Reference Range Interpretation Comments WBC (test code = See_Comment [Automated 5890-2) message] The sy stem which generated this result transmitted reference range : 4.20 - 10.70 10*3/?L. The reference range was not used to interpret this result as normal/abnormal . RBC (test code = See_Comment [Automated 619-8) message] The sy stem which generated this [...] RDW-SD (test code = 51.1 fL 38.5-51.6 00383-1) RDW-CV (test code = 13.9 % 12.1-15.4 788-0) PLT (test code = See_Comment [Automated 037-3) message] The sy stem which generated this result transmitted reference range : 150 - 328 10*3/ ?L. The reference r sarahy was not used to interpret this result as normal/abnormal . MPV (test code = 10.3 fL 9.8-13 50909-4) NRBC/100 WBC (test See_Comment [Automat ed code = 0989397600) message] The system which generated this result transmitted reference range : 0.0 - 10.0 /100 WBCs. The refer ence range was not u sed to interpret th is result as normal/abnormal . NRBC x10^3 (test code <0.01 See_Comment [Auto mated = 2486144396) message] The s ystem which generated this result transmitted reference range : 10*3/?L. The reference range was not used to interpret this result as normal/abnormal . GRAN MAT (NEUT) % 64.3 % (test code = 770-8) IMM GRAN % (test code 0.30 % = 2686402795) LYMPH % (test code = 22.6 % 736-9) MONO % (test code = 8.8 % 5905-5) EOS % (test code = 3.0 % 713-8) BASO % (test code = 1.0 % 706-2) GRAN MAT x10^3(ANC) 4.02 10*3/uL 1.99-6.95 (test code = 9617945608) IMM GRAN x10^3 (test <0.03 0-0.06 code = 7384156667) LYMPH x10^3 (test code 1.41 10*3/uL 1.09-3.23 = 731-0) MONO x10^3 (test code 0.55 10*3/uL 0.36-1.02 = 742-7) EOS x10^3 (test code = 0.19 10*3/uL 0.06-0.53 711-2) BASO x10^3 (test code 0.06 10*3/uL 0.01-0.09 = 704-7) Lab Interpretation Abnormal (test code = 40638-1) [facility] WITH [id number] 15:41:00 Test Item Value Reference Range Interpretation [...] RDW-SD (test code = 51.1 fL 38.5-51.6 58309-8) RDW-CV (test code = 13.9 % 12.1-15.4 788-0) PLT (test code = See_Comment [Automated 777-3) message] The sy stem which generated this result transmitted reference range : 150 - 328 10*3/ ?L. The reference r sarahy was not used to interpret this result as normal/abnormal . MPV (test code = 10.3 fL 9.8-13 56780-3) NRBC/100 WBC (test See_Comment [Automat ed code = 4541864162) message] The system which generated this result transmitted reference range : 0.0 - 10.0 /100 WBCs. The refer ence range was not u sed to interpret th is result as normal/abnormal . NRBC x10^3 (test code <0.01 See_Comment [Auto mated = 8340437753) message] The s ystem which generated this result transmitted reference range : 10*3/?L. The reference range was not used to interpret this result as normal/abnormal . GRAN MAT (NEUT) % 64.3 % (test code = 770-8) IMM GRAN % (test code 0.30 % = 0353442173) LYMPH % (test code = 22.6 % 736-9) MONO % (test code = 8.8 % 5905-5) EOS % (test code = 3.0 % 713-8) BASO % (test code = 1.0 % 706-2) GRAN MAT x10^3(ANC) 4.02 10*3/uL 1.99-6.95 (test code = 5008193312) IMM GRAN x10^3 (test <0.03 0-0.06 code = 0749607502) LYMPH x10^3 (test code 1.41 10*3/uL 1.09-3.23 = 731-0) MONO x10^3 (test code 0.55 10*3/uL 0.36-1.02 = 742-7) EOS x10^3 (test code = 0.19 10*3/uL 0.06-0.53 711-2) BASO x10^3 (test code 0.06 10*3/uL 0.01-0.09 = 704-7) Lab Interpretation Abnormal (test code = 61858-6) [facility] WITH [id number] 15:41:00 Test Item Value Reference Range Interpretation [...] RDW-SD (test code = 51.1 fL 38.5-51.6 59670-6) RDW-CV (test code = 13.9 % 12.1-15.4 788-0) PLT (test code = See_Comment [Automated 777-3) message] The sy stem which generated this result transmitted reference range : 150 - 328 10*3/ ?L. The reference r sarahy was not used to interpret this result as normal/abnormal . MPV (test code = 10.3 fL 9.8-13 24416-7) NRBC/100 WBC (test See_Comment [Automat ed code = 9264636568) message] The system which generated this result transmitted reference range : 0.0 - 10.0 /100 WBCs. The refer ence range was not u sed to interpret th is result as normal/abnormal . NRBC x10^3 (test code <0.01 See_Comment [Auto mated = 5391687536) message] The s ystem which generated this result transmitted reference range : 10*3/?L. The reference range was not used to interpret this result as normal/abnormal . GRAN MAT (NEUT) % 64.3 % (test code = 770-8) IMM GRAN % (test code 0.30 % = 2384754715) LYMPH % (test code = 22.6 % 736-9) MONO % (test code = 8.8 % 5905-5) EOS % (test code = 3.0 % 713-8) BASO % (test code = 1.0 % 706-2) GRAN MAT x10^3(ANC) 4.02 10*3/uL 1.99-6.95 (test code = 8677570087) IMM GRAN x10^3 (test <0.03 0-0.06 code = 4575804909) LYMPH x10^3 (test code 1.41 10*3/uL 1.09-3.23 = 731-0) MONO x10^3 (test code 0.55 10*3/uL 0.36-1.02 = 742-7) EOS x10^3 (test code = 0.19 10*3/uL 0.06-0.53 711-2) BASO x10^3 (test code 0.06 10*3/uL 0.01-0.09 = 704-7) Lab Interpretation Abnormal (test code = 45972-8) [facility] WITH [id number] 15:41:00 Test Item Value Reference Range Interpretation [...] RDW-SD (test code = 51.1 fL 38.5-51.6 89006-7) RDW-CV (test code = 13.9 % 12.1-15.4 788-0) PLT (test code = See_Comment [Automated 777-3) message] The sy stem which generated this result transmitted reference range : 150 - 328 10*3/ ?L. The reference r sarahy was not used to interpret this result as normal/abnormal . MPV (test code = 10.3 fL 9.8-13 84612-1) NRBC/100 WBC (test See_Comment [Automat ed code = 8920403249) message] The system which generated this result transmitted reference range : 0.0 - 10.0 /100 WBCs. The refer ence range was not u sed to interpret th is result as normal/abnormal . NRBC x10^3 (test code <0.01 See_Comment [Auto mated = 6626422110) message] The s ystem which generated this result transmitted reference range : 10*3/?L. The reference range was not used to interpret this result as normal/abnormal . GRAN MAT (NEUT) % 64.3 % (test code = 770-8) IMM GRAN % (test code 0.30 % = 3402235638) LYMPH % (test code = 22.6 % 736-9) MONO % (test code = 8.8 % 5905-5) EOS % (test code = 3.0 % 713-8) BASO % (test code = 1.0 % 706-2) GRAN MAT x10^3(ANC) 4.02 10*3/uL 1.99-6.95 (test code = 8129882913) IMM GRAN x10^3 (test <0.03 0-0.06 code = 6763149581) LYMPH x10^3 (test code 1.41 10*3/uL 1.09-3.23 = 731-0) MONO x10^3 (test code 0.55 10*3/uL 0.36-1.02 = 742-7) EOS x10^3 (test code = 0.19 10*3/uL 0.06-0.53 711-2) BASO x10^3 (test code 0.06 10*3/uL 0.01-0.09 = 704-7) Lab Interpretation Abnormal (test code = 86563-3) [facility]TOTAL CHOLESTEROL, TRIGLYCERIDES, HDL)2019-02-20 17:10:00 Test Item Value Reference Range Interpretation Comments CHOL (test code = 140 mg/dL 120-200 5232130206) HDL (test code = 46 mg/dL >40 4177909487) HDLC RATIO (test code = See_Comment [Au tomated message] 9258389061) The system [email or web address] generated this result transmit claribel reference range : <=5.0. The refe rence range was not u sed to interpret th is result as normal/abnormal . TRIG (test code = 52 mg/dL 30-170 9399020352) LDL CHOL (test code = 84 mg/dL See_Comment [Auto mated message] 95997-7) The system [email or web address] generated this result transmit claribel reference range : <=160. The refe rence range was not u sed to interpret th is result as normal/abnormal . VLDL (test code = 10 mg/dL 5-60 3191638267) Lab Interpretation (test Normal code = 49459-2) [facility] (74688)(TOTAL CHOLESTEROL, TRIGLYCERIDES, HDL)2019-02-20 17:10:00 Test Item Value Reference Range Interpretation Comments CHOL (test code = 140 mg/dL 120-200 6240194556) HDL (test code = 46 mg/dL >40 9698143348) HDLC RATIO (test code = See_Comment [Au tomated message] 6717898463) The system [email or web address] generated this result transmit claribel reference range : <=5.0. The refe rence range was not u sed to interpret th is result as normal/abnormal . TRIG (test code = 52 mg/dL 30-170 6854040997) LDL CHOL (test code = 84 mg/dL See_Comment [Auto mated message] 57532-0) The system [email or web address] generated this result transmit claribel reference range : <=160. The refe rence range was not u sed to interpret th is result as normal/abnormal . VLDL (test code = 10 mg/dL 5-60 8350917247) Lab Interpretation (test Normal code = 86505-2) [facility]25414)(TOTAL CHOLESTEROL, TRIGLYCERIDES, HDL)2019-02-20 17:10:00 Test Item Value Reference Range Interpretation Comments CHOL (test code = 140 mg/dL 120-200 0210830905) HDL (test code = 46 mg/dL >40 4836690085) HDLC RATIO (test code = See_Comment [Au tomated message] 7960850862) The system [email or web address] generated this result transmit claribel reference range : <=5.0. The refe rence range was not u sed to interpret th is result as normal/abnormal . TRIG (test code = 52 mg/dL 30-170 4349492287) LDL CHOL (test code = 84 mg/dL See_Comment [Auto mated message] 28983-9) The system [email or web address] generated this result transmit claribel reference range : <=160. The refe rence range was not u sed to interpret th is result as normal/abnormal . VLDL (test code = 10 mg/dL 5-60 2326185119) Lab Interpretation (test Normal code = 10137-2) [facility]70771)(TOTAL CHOLESTEROL, TRIGLYCERIDES, HDL)2019-02-20 17:10:00 Test Item Value Reference Range Interpretation Comments CHOL (test code = 140 mg/dL 120-200 9619959941) HDL (test code = 46 mg/dL >40 4401572948) HDLC RATIO (test code = See_Comment [Au tomated message] 1483328502) The system [email or web address] generated this result transmit claribel reference range : <=5.0. The refe rence range was not u sed to interpret th is result as normal/abnormal . TRIG (test code = 52 mg/dL 30-170 1100943405) LDL CHOL (test code = 84 mg/dL See_Comment [Auto mated message] 19555-5) The system [email or web address] generated this result transmit claribel reference range : <=160. The refe rence range was not u sed to interpret th is result as normal/abnormal . VLDL (test code = 10 mg/dL 5-60 4722445709) Lab Interpretation (test Normal code = 23023-5) [facility] (99754)(TOTAL CHOLESTEROL, TRIGLYCERIDES, HDL)2019-02-20 17:10:00 Test Item Value Reference Range Interpretation Comments CHOL (test code = 140 mg/dL 120-200 2895740428) HDL (test code = 46 mg/dL >40 1098491922) HDLC RATIO (test code = See_Comment [Au tomated message] 1569513939) The system [email or web address] generated this result transmit claribel reference range : <=5.0. The refe rence range was not u sed to interpret th is result as normal/abnormal . TRIG (test code = 52 mg/dL 30-170 8067150020) LDL CHOL (test code = 84 mg/dL See_Comment [Auto mated message] 52385-1) The system [email or web address] generated this result transmit claribel reference range : <=160. The refe rence range was not u sed to interpret th is result as normal/abnormal . VLDL (test code = 10 mg/dL 5-60 7615487962) Lab Interpretation (test Normal code = 58654-8) [facility] (A1C)2019-02-20 16:35:00 Test Item Value Reference [...] Indicated Lab Interpretation Normal (test code = 23810-7) [facility] (A1C)2019-02-20 16:35:00 Test Item Value Reference [...] Indicated Lab Interpretation Normal (test code = 69098-1) [facility]A1C)2019-02-20 16:35:00 Test Item Value Reference [...] Indicated Lab Interpretation Normal (test code = 03844-4) [facility] (A1C)2019-02-20 16:35:00 Test Item Value Reference [...] Indicated Lab Interpretation Normal (test code = 51237-4) [facility] (A1C)2019-02-20 16:35:00 Test Item Value Reference Interpretation Comments Range HGB A1C (test code = See_Comment [Lifestreamsd 4548-4) message] The system which generated this result transmitted reference range : 4.0 - 6.0 % NGSP. The reference range was not used to interpret this result as normal/abnormal . JOEY (test code = %A1C (NGSP) JOEY) Interpretation (ADA)4.8-5.6 ? ? Normal or (Non-Diabetic Range)5.7-6.4 ? ? Increased Risk (Pre-Diabetic)>6.5 ?Diabetes Indicated Lab Interpretation Normal (test code = 22819-2) [facility]"
[2022-06-21 18:20] LABS: Absolute Lymphocytes (CBC) 0.7 K/uL (0.7-4.9); Hematocrit 44.3 % (39.6-49.0); MCV 98.8 fL (80-100); MPV 7.6 fL (7.6-11.3); Protime INR 1.86; RBC Red Blood Cell Count 4.48 M/uL (4.33-5.43)
--- NOTE | 2022-06-21 18:33 | RAD REPORT ---
EXAM DESCRIPTION: Marissa Single View06/21/2022 6:11 pm CLINICAL HISTORY: Chest pain COMPARISON: 2021 FINDINGS: The lungs appear clear of acute infiltrate. The heart is normal size. Chronic mild elevation right hemidiaphragm Prominence mediastinum secondary to tortuous vessels IMPRESSION: No acute abnormalities displayed
--- NOTE | 2022-06-21 18:39 | RAD REPORT ---
EXAM DESCRIPTION: CT - Head Brain Wo Cont - 06/21/2022 6:33 pm CLINICAL HISTORY: Alteration of awareness/confusion COMPARISON: 2021 TECHNIQUE: Computed axial tomography of the head was obtained. IV contrast was not requested. All CT scans are performed using dose optimization technique as appropriate and may include automated exposure control or mA/KV adjustment according to patient size. FINDINGS: An intracranial bleed is not seen The ventricles are normal in caliber No extra-axial fluid collection is noted. 3.3 centimeter cystic encephalomalacia posterior right frontal lobe probably the sequela of an old in farction. Fluid within the sinuses/ mastoids is not seen. IMPRESSION: No acute intracranial abnormality is seen If patient's symptoms persist MRI of the brain would be recommended
[2022-06-21 18:47] LABS: Albumin 3.4 g/dL (3.4-5.0); Bilirubin Direct 0.2 mg/dL (0-0.2); Bilirubin Total 0.6 mg/dL (0.2-1.0); Magnesium 1.9 mg/dL (1.6-2.4); Potassium 3.7 mmol/L (3.5-5.1); Protein, Total 6.4 g/dL (6.4-8.2); Troponin High Sensitivity 11.5 pg/mL (<58.9)
[2022-06-21] MEDS ORDERED: NA CHLORIDE 0.9% 500 ML ONE (22:16)
--- NOTE | 2022-06-21 22:20 | EDPHYS ---
Physician Documentation [facility] Name: Elver Tee Age: 81 yrs Sex: Male : 1940 Arrival Date: 06/21/2022 Time: 17:47 Bed 8 Private MD: ED Physician Kobe Friend HPI: 06/21 18:00 This 81 yrs old Male presents to ER via EMS with complaints of Altered Mental Status. cp 18:00 The patient presents with agitation, slurred speech. Onset: The symptoms/episode cp began/occurred 2 week(s) ago. Possible causes: recent change in medications. Associated signs and symptoms: Pertinent negatives: chest pain, confusion, diarrhea, vomiting. Current symptoms: In the emergency department the patient's symptoms are unchanged from the initial presentation, despite home interventions. Patient's baseline: Neuro: alert and fully oriented, Motor: no deficits, Ambulation: walks with assist only, Speech: normal. Patient presents to ED by EMS after being called by of patient for slurred speech and increased aggression times 2 weeks. EMS reports is concern that recent psych medication changes are the cause. Historical: - Allergies: 17:55 Bacitracin Zinc; kc6 17:55 Neomycin Sulfate; kc6 17:55 Polymyxin B Sulfate; kc6 - Home Meds: 18:01 MagOx oral [Active]; levocetirizine oral [Active]; Xarelto oral [Active]; montelukast vg1 oral [Active]; Flomax Oral [Active]; divalproex oral [Active]; Amitriptyline Oral [Active]; donepezil oral [Active]; Carbidopa-Levodopa Oral [Active]; paliperidone oral [Active]; Doxepin Oral [Active]; Propranolol Oral [Active]; Clonazepam Oral [Active]; pantoprazole oral [Active]; - PMHx: 17:55 Bipolar disorder; Hypertensive disorder; Paranoid Schizophrenia; kc6 - Immunization history:: Client reports receiving the 2nd dose of the Covid vaccine, Flu vaccine is not up to date. - Social history:: Smoking status: Patient denies any tobacco usage or history of. ROS: 18:05 Constitutional: Negative for body aches, fever, poor PO intake. cp 18:05 Eyes: Negative for injury, pain, redness, and discharge. cp 18:05 ENT: Negative for drainage from ear(s), ear pain, sore throat, difficulty swallowing, difficulty handling secretions. 18:05 Cardiovascular: Negative for chest pain, edema, palpitations. 18:05 Respiratory: Negative for cough, shortness of breath, wheezing. 18:05 Abdomen/GI: Negative for abdominal pain, vomiting, diarrhea, constipation. 18:05 Back: Negative for pain at rest, pain with movement. 18:05 : Negative for urinary symptoms, testicular pain 18:05 Neuro: Positive for speech changes, Negative for headache, loss of consciousness, syncope. 18:05 Psych: Positive for increased agitation, Negative for auditory hallucinations, visual hallucinations, suicidal ideation. 18:05 All other systems are negative. Exam: 18:10 Constitutional: The patient appears in no acute distress, alert, awake, cp non-diaphoretic, non-toxic, well developed, well nourished. 18:10 Head/Face: Normocephalic, atraumatic. cp 18:10 Eyes: Pupils: left pupil non-reactive, Extraocular movements: intact throughout, Conjunctiva: normal, no exudate, no injection, Lids and lashes: appear normal, bilaterally. 18:10 ENT: External ear(s): are unremarkable, Ear canal(s): are normal, clear, TM's: dullness, bilaterally, Nose: is normal, Mouth: Lips: dry, Oral mucosa: moist, Posterior pharynx: Airway: no evidence of obstruction, patent, swelling, is not appreciated, erythema, is not appreciated, exudate, is not appreciated. 18:10 Neck: ROM/movement: is normal, is supple, without pain, no range of motions limitations, no meningismus, no nuchal rigidity. 18:10 Chest/axilla: Inspection: normal, Palpation: is normal, no crepitus, no tenderness. 18:10 Cardiovascular: Rate: normal, Rhythm: regular, Edema: is not appreciated, JVD: is not appreciated. 18:10 Respiratory: the patient does not display signs of respiratory distress, Respirations: normal, no use of accessory muscles, no retractions, labored breathing, is not present, Breath sounds: are clear throughout, no decreased breath sounds, no stridor, no wheezing. 18:10 Abdomen/GI: Inspection: abdomen appears normal, Bowel sounds: active, all quadrants, Palpation: abdomen is soft and non-tender, in all quadrants. 18:10 Back: pain, is absent, ROM is normal. 18:10 Skin: cellulitis, is not appreciated, no rash present. 18:10 Neuro: Orientation: to person, place, situation, Mentation: able to follow commands, Cerebellar function: Romberg testing is negative, normal finger to nose testing, Motor: moves all fours, strength is normal, Sensation: no obvious gross deficits. 06/22 07:26 ECG was reviewed by the Attending Physician. jaelyn Vital Signs: 06/21 17:53 BP 116 / 89; Pulse 99; Resp 17 S; Temp 99.4(O); Pulse Ox 95% on 3 lpm NC; Weight 77.11 kc6 kg (R); Height 6 ft. 0 in. (182.88 cm) (R); Pain 0/10; 18:47 BP 116 / 83; Pulse 80; Resp 18; Pulse Ox 98% on 3 lpm NC; hb 20:00 BP 130 / 95; Pulse 79; Resp 21 S; Pulse Ox 99% on R/A; as6 21:00 BP 121 / 84; Pulse 76; Resp 19 S; Pulse Ox 100% on R/A; as6 22:00 BP 123 / 74; Pulse 74; Resp 19 S; Pulse Ox 97% on R/A; as6 23:05 BP 125 / 73; Pulse 81; Resp 22 S; Pulse Ox 99% on R/A; as6 02/06 00:00 BP 117 / 74; Pulse 64; Resp 29 S; Pulse Ox 96% on R/A; as6 01:03 BP 121 / 84; Pulse 77; Resp 20 S; Pulse Ox 99% on R/A; as6 02:00 BP 119 / 75; Pulse 69; Resp 17; Pulse Ox 97% on R/A; Pain 0/10; pf1 03:00 BP 133 / 88; Pulse 81; Resp 20; Pulse Ox 95% on R/A; pf1 04:00 BP 127 / 71; Pulse 78; Resp 18; Pulse Ox 94% on R/A; pf1 05:00 BP 139 / 75; Pulse 88; Resp 16; Pulse Ox 94% on R/A; pf1 06/21 17:53 Body Mass Index 23.06 (77.11 kg, 182.88 cm) kc6 MDM: 02 17:53 Patient medically screened. cp 18:00 Differential Diagnosis: electrolyte abnormality, alcohol intoxication, intracranial cp bleed, seizure, sepsis, UTI, volume depletion. 20:00 Historians other than the Patient: Spouse/Significant Other: assists with HPI. cp 22:10 Data reviewed: vital signs, nurses notes, lab test result(s), radiologic studies, CT cp scan, plain films. 22:10 Management of patient was discussed with the following: Primary Care Provider: DR Donita martinez with concern to admit and consult DR Zelaya and DR Weller. DR Duckworth requests transfer to [facility] for evaluation. Test considered but Not performed: MRI: brain. Care significantly affected by the following chronic conditions: Hypertension, bipolar disorder, schizophrenia. 02 17:53 Order name: Basic Metabolic Panel; Complete Time: 19:02 cp 02/ 19:02 Interpretation: Normal except: CL 108; GLUC 126; GFR 89. cp 06/21 17:53 Order name: CBC with Diff; Complete Time: 19:02 cp 02/05 19:02 Interpretation: Normal except: OZZY% 77.0; LYM% 12.0. cp 02/ 17:53 Order name: LFT's; Complete Time: 19:02 cp 0205 17:53 Order name: Magnesium; Complete Time: 19:02 cp 05 17:53 Order name: NT PRO-BNP; Complete Time: 19:02 cp 02/05 17:53 Order name: PT-INR; Complete Time: 19:02 cp 06/21 17:53 Order name: Troponin HS; Complete Time: 19:02 cp / 17:53 Order name: XRAY Chest (1 view); Complete Time: 19:02 cp 02/05 19:02 Interpretation: Report review. cp 02 17:53 Order name: Urine Microscopic Only; Complete Time: 06:54 cp 02 17:53 Order name: CT Head Brain wo Cont; Complete Time: 19:02 cp 02/05 22:37 Order name: SARS RAPID; Complete Time: 06:54 bb 06/22 07:18 Order name: Valproic Acid (depakote) jaelyn 06/22 10:00 Order name: Troponin High Sensitivity EDMS 06/21 17:53 Order name: EKG; Complete Time: 17:54 cp 06/21 17:53 Order name: Cardiac monitoring; Complete Time: 17:57 cp 06/21 17:53 Order name: EKG - Nurse/Tech; Complete Time: 17:57 cp 06/21 17:53 Order name: IV Saline Lock; Complete Time: 18:10 cp 06/21 17:53 Order name: Labs collected and sent; Complete Time: 18:10 cp 06/21 17:53 Order name: O2 Per Protocol; Complete Time: 17:57 cp 06/21 17:53 Order name: O2 Sat Monitoring; Complete Time: 17:57 cp 06/21 17:53 Order name: Urine Dipstick-Ancillary (obtain specimen); Complete Time: 22:19 cp 06/21 19:44 Order name: Cath; Complete Time: 22:19 cp 06/22 07:07 Order name: EKG; Complete Time: 07:07 jaelyn 06/22 07:07 Order name: EKG - Nurse/Tech; Complete Time: 07:27 jaelyn 06/22 07:25 Order name: CONS Physician Consult EDMS EC/06 07:26 Rate is 94 beats/min. Rhythm is regular. QRS [place] is Normal. MN interval is normal. QRS jaelyn interval is normal. QT interval is normal. No Q waves. T waves are Normal. No ST changes noted. Clinical impression: NSR w/ Non-specific ST/T Changes and No evidence of ischemia. Interpreted by me. Reviewed by me. Administered Medications: 06/21 22:16 Drug: NS 0.9% 500 ml Route: IV; Rate: 500 ml/hr; Site: right antecubital; as6 23:00 Follow up: IV Status: Completed infusion; IV Intake: 500ml pf1 Disposition: 06/22 07:26 Co-signature as Attending Physician, Kobe Friend MD I agree with the assessment and jaelyn plan of care. Disposition Summary: 06/22/22 07:18 Hospitalization Ordered Hospitalization Status: Inpatient Admission jaelyn Provider: Mike Duckworth jaelyn Condition: Fair(06/22/22 07:18) jaelyn Problem: new(06/22/22 07:18) jaelyn Symptoms: have improved(06/22/22 07:18) jaelyn Bed/Room Type: Standard jaelyn Location: Telemetry/MedSurg (Inpatient)(06/22/22 17:24) bd Room Assignment: 405(06/22/22 17:24) bd Diagnosis - Paroxysmal atrial fibrillation jaelyn - Altered mental status, unspecified jaelyn - Schizophrenia, unspecified jaelyn Forms: - Medication Reconciliation Form jaelyn - SBAR form jaelyn Signatures: Dispatcher [employer] EDMS Genie beckwith Kobe Maynard MD MD cha Page, Corey, PA PA Sonia Umana RN RN vg1 Juancho Etienne RN RN as6 Waleska Chaney RN RN kc6 Ibeth lai RN pf1 Corrections: (The following items were deleted from the chart) 07:08 02 22:19 Doctor cp jaelyn 06/22 07:08 02 22:19 Psych Facility cp jaelyn 06/22 07:08 06/21 22:19 Higher level of care cp jaelyn / 07:08 02/05 22:19 Stable cp jaelyn / 07:08 02/05 22:19 new cp jaelyn 06/22 07:08 06/21 22:19 are unchanged cp jaelyn / 07:08 02 22:19 Slurred speech cp jaelyn 06/22 08:22 07:18 Telemetry/MedSurg (Inpatient) jaelyn bd 08:22 07:18 jaelyn bd 17:24 08:22 BR ER HOLD bd bd 17:24 08:22 ERHOLD- bd bd
--- NOTE | 2022-06-21 22:20 | ER ---
Nurse's Notes [facility] Name: Elver Tee Age: 81 yrs Sex: Male : 1940 Arrival Date: 06/21/2022 Time: 17:47 Bed 8 Private MD: Diagnosis: Paroxysmal atrial fibrillation;Altered mental status, unspecified;Schizophrenia, unspecified Presentation: 06/21 17:53 Chief complaint: EMS states: clients called for altered mental status and stated kc6 he was yelling at her. Coronavirus screen: Vaccine status: Patient reports receiving the 2nd dose of the covid vaccine. At this time, the client does not indicate any symptoms associated with coronavirus-19. Ebola Screen: No symptoms or risks identified at this time. Initial Sepsis Screen: Does the patient meet any 2 criteria? No. Patient's initial sepsis screen is negative. Does the patient have a suspected source of infection? No. Patient's initial sepsis screen is negative. Risk Assessment: Do you want to hurt yourself or someone else? Patient reports no desire to harm self or others. Onset of symptoms was June 21, 2022. 17:53 Method Of Arrival: EMS: [facility] kc6 17:53 Acuity: CUAUHTEMOC 3 kc6 Triage Assessment: 17:55 General: Appears in no apparent distress. comfortable, Behavior is calm, cooperative, kc6 appropriate for age. Pain: Denies pain. EENT: No signs and/or symptoms were reported regarding the EENT system. Neuro: Funk Agitation-Sedation Scale (RASS): 0 - Alert and Calm Level of Consciousness is awake, alert, obeys commands, Oriented to person, place, time, situation, Appropriate for age. Cardiovascular: Capillary refill < 3 seconds. Respiratory: Airway is patent Trachea midline Respiratory effort is even, unlabored, Respiratory pattern is regular, symmetrical. GI: No signs and/or symptoms were reported involving the gastrointestinal system. : No signs and/or symptoms were reported regarding the genitourinary system. Derm: No signs and/or symptoms reported regarding the dermatologic system. Skin is intact, Skin is pink, warm \\T\\ dry. Musculoskeletal: No signs and/or symptoms reported regarding the musculoskeletal system. Circulation, motion, and sensation intact. Capillary refill < 3 seconds, Range of motion: intact in all extremities. Historical: - Allergies: 17:55 Bacitracin Zinc; kc6 17:55 Neomycin Sulfate; kc6 17:55 Polymyxin B Sulfate; kc6 - Home Meds: 18:01 MagOx oral [Active]; levocetirizine oral [Active]; Xarelto oral [Active]; montelukast vg1 oral [Active]; Flomax Oral [Active]; divalproex oral [Active]; Amitriptyline Oral [Active]; donepezil oral [Active]; Carbidopa-Levodopa Oral [Active]; paliperidone oral [Active]; Doxepin Oral [Active]; Propranolol Oral [Active]; Clonazepam Oral [Active]; pantoprazole oral [Active]; - PMHx: 17:55 Bipolar disorder; Hypertensive disorder; Paranoid Schizophrenia; kc6 - Immunization history:: Client reports receiving the 2nd dose of the Covid vaccine, Flu vaccine is not up to date. - Social history:: Smoking status: Patient denies any tobacco usage or history of. Screenin:[facility] ED Fall Risk Assessment (Adult) History of falling in the last 3 months, kc6 including since admission Yes- single mechanical fall (1 pt) Confusion or Disorientation No (0 pts) Intoxicated or Sedated No (0 pts) Impaired Gait No (0 pts) Mobility Assist Device Used No (0 pt) Altered Elimination No (0 pt) Score/Fall Risk Level 0 - 2 = Low Risk Oriented to surroundings, Maintained a safe environment, Educated pt \\T\\ family on fall prevention, incl call for assistance when getting out of bed, Assessed \\T\\ reinforced patient's understanding of fall precautions, Hourly rounding (assess needs \\T\\ fall precautionary measures) done. Abuse screen: Denies threats or abuse. Denies injuries from another. Nutritional screening: No deficits noted. Tuberculosis screening: No symptoms or risk factors identified. Assessment: 18:30 General: See triage assessment . pf1 18:49 Reassessment: client stated he does not want his present at this time because "I kc6 just want to rest and all she will do is yell at me." Winnie Tee () [phone]. 19:00 General: Appears in no apparent distress. comfortable, well developed, Behavior is pf1 cooperative, appropriate for age, agitated. 19:00 Pain: Denies pain. Neuro: Level of Consciousness is awake, alert, obeys commands, pf1 Oriented to. 19:00 Neuro: Reports report patient being argumentative and confused A AUXILIARY. pf1 19:00 Cardiovascular: No deficits noted. Capillary refill < 3 seconds Patient's skin is warm pf1 and dry. Respiratory: No deficits noted. Airway is patent Trachea midline Respiratory effort is even, unlabored, Respiratory pattern is regular, symmetrical. 19:00 GI: No deficits noted. Abdomen is flat, non-distended, Bowel sounds present X 4 quads. pf1 Abd is soft and non tender X 4 quads. : No deficits noted. EENT: No deficits noted. No signs and/or symptoms were reported regarding the EENT system. Derm: No deficits noted. No signs and/or symptoms reported regarding the dermatologic system. Musculoskeletal: Circulation, motion, and sensation intact. Capillary refill < 3 seconds, Range of motion: intact in all extremities, Swelling present in right foot and left foot Patient has notable abnormalities to bilateral foot anatomy. 19:00 Neuro: Oriented to person, place. pf1 20:00 Reassessment: Patient appears in no apparent distress at this time. No changes from pf1 previously documented assessment. Patient and/or family updated on plan of care and expected duration. Pain level reassessed. Patient has garbled speak. 21:00 Reassessment: Patient appears in no apparent distress at this time. No changes from pf1 previously documented assessment. 22:00 Reassessment: Patient appears in no apparent distress at this time. No changes from pf1 previously documented assessment. Patient updated on plan of care. call light within patient's reach, lights dimmed. 23:00 Reassessment: Patient appears in no apparent distress at this time. Patient and/or pf1 family updated on plan of care and expected duration. Pain level reassessed. Patient assisted to stand while using urinal. 06/22 00:00 Reassessment: Patient appears in no apparent distress at this time. Patient and/or pf1 family updated on plan of care and expected duration. Pain level reassessed. Patient sleeping, lights dimmed, side rails up x 2. 01:00 Reassessment: Patient appears in no apparent distress at this time. No changes from pf1 previously documented assessment. patient sleeping. 02:00 Reassessment: Patient appears in no apparent distress at this time. No changes from pf1 previously documented assessment. 03:00 Reassessment: Patient appears in no apparent distress at this time. No changes from pf1 previously documented assessment. 04:00 Reassessment: Patient appears in no apparent distress at this time. No changes from pf1 previously documented assessment. 05:00 Reassessment: Patient appears in no apparent distress at this time. No changes from pf1 previously documented assessment. Patient sleeping, lights dimmed, call light at BS. Vital Signs: 06/21 17:53 BP 116 / 89; Pulse 99; Resp 17 S; Temp 99.4(O); Pulse Ox 95% on 3 lpm NC; Weight 77.11 kc6 kg (R); Height 6 ft. 0 in. (182.88 cm) (R); Pain 0/10; 18:47 BP 116 / 83; Pulse 80; Resp 18; Pulse Ox 98% on 3 lpm NC; hb 20:00 BP 130 / 95; Pulse 79; Resp 21 S; Pulse Ox 99% on R/A; as6 21:00 BP 121 / 84; Pulse 76; Resp 19 S; Pulse Ox 100% on R/A; as6 22:00 BP 123 / 74; Pulse 74; Resp 19 S; Pulse Ox 97% on R/A; as6 23:05 BP 125 / 73; Pulse 81; Resp 22 S; Pulse Ox 99% on R/A; as6 0206 00:00 BP 117 / 74; Pulse 64; Resp 29 S; Pulse Ox 96% on R/A; as6 01:03 BP 121 / 84; Pulse 77; Resp 20 S; Pulse Ox 99% on R/A; as6 02:00 BP 119 / 75; Pulse 69; Resp 17; Pulse Ox 97% on R/A; Pain 0/10; pf1 03:00 BP 133 / 88; Pulse 81; Resp 20; Pulse Ox 95% on R/A; pf1 04:00 BP 127 / 71; Pulse 78; Resp 18; Pulse Ox 94% on R/A; pf1 05:00 BP 139 / 75; Pulse 88; Resp 16; Pulse Ox 94% on R/A; pf1 06/21 17:53 Body Mass Index 23.06 (77.11 kg, 182.88 cm) [facility] ED Course: 06/21 17:47 Patient arrived in ED. kj1 17:50 Kobe Blas PA is PHCP. cp 17:50 Reno Morejon MD is Attending Physician. cp 17:53 Waleska Chaney, RN is Primary Nurse. kc6 17:55 Triage completed. kc6 17:55 Arm band placed on. kc6 17:56 Patient has correct armband on for positive identification. Placed in gown. Bed in low kc6 position. Call light in reach. Side rails up X2. 18:10 Basic Metabolic Panel Sent. kc6 18:10 CBC with Diff Sent. kc6 18:10 LFT's Sent. kc6 18:10 Magnesium Sent. kc6 18:10 NT PRO-BNP Sent. kc6 18:10 PT-INR Sent. kc6 18:10 Troponin HS Sent. kc6 18:10 Inserted saline lock: 20 gauge in right antecubital area, using aseptic technique. kc6 Blood collected. 18:13 XRAY Chest (1 view) In Process Unspecified. EDMS 18:38 CT Head Brain wo Cont In Process Unspecified. EDMS 23:35 SARS RAPID Sent. rv1 02 06:53 Attending Physician role handed off by Reno Morejon MD jaelyn 06:53 Kobe Friend MD is Attending Physician. jaelyn 07:02 No provider procedures requiring assistance completed. pf1 07:11 Mike Duckworth MD is Hospitalizing Provider. jaelyn 07:27 EKG done, by ED staff, reviewed by Kobe Friend MD , repeat EKG. em1 07:34 Primary Nurse role handed off by Waleska Chaney, PENNIE bd 07:34 Robert Sr, PENNIE is Primary Nurse. jl7 Administered Medications: 06/21 22:16 Drug: NS 0.9% 500 ml Route: IV; Rate: 500 ml/hr; Site: right antecubital; as6 23:00 Follow up: IV Status: Completed infusion; IV Intake: 500ml pf1 Intake: 23:00 IV: 500ml; Total: 500ml. pf1 Outcome: 22:19 ER care complete, transfer ordered by . cp 06/22 07:18 Decision to Hospitalize by Provider. jaelyn 18:39 Patient left the ED. jl7 Signatures: Dispatcher [employer] EDMS Genie Kumar Corey, MD MD cha Martinez, Car em1 Kobe Blas PA PA cp Baxter, Heather, RN RN hb Robert Sr, RN RN jl7 Alondra Chavez kj1 Sonia Arriola, RN RN vg1 Juancho Etienne, RN RN as6 Waleska Chaney, RN RN kc6 Ibeth lai, RN RN pf1 Hi, Thania rv1 Corrections: (The following items were deleted from the chart) 06/21 18:52 18:49 Reassessment: Winnie Tee () [phone] [facility] kc6 06/22 05:06/21 18:30 General: See triage assessment . hb pf1 06/22 05:01 06/21 19:00 Neuro: Level of Consciousness is awake, alert, obeys commands, Oriented to pf1 pf1 06/22 05: 02 19:00 Neuro: Reports report patient being argumentative and confused A AUXILIARY. pf1pf1
[2022-06-21 22:42] LABS: Calcium Oxalate Crystals- Ur Few /HPF (None Seen); Urine Bacteria <20 /HPF (<20); Urine Mucus Slight /HPF (None Seen)
[2022-06-21 23:40] LABS: SARS-CoV-2 Antigen Rapid Res Negative (Negative)
[2022-06-22] MEDS ORDERED: ONDANSETRON 4 MG/2 ML VIAL IV PRN (08:48)
[2022-06-22] MEDS ORDERED: clonazePAM 0.5 MG TAB PO PRN (08:48)
[2022-06-22] MEDS ORDERED: ACETAMINOPHEN 325 MG TABLET PO PRN (08:48)
[2022-06-22] MEDS: RIVAROXABAN 10 MG TABLET PO SCH (09:00)
[2022-06-22] MEDS ORDERED: DIVALPROEX DR 250 MG TAB PO SCH (09:00)
[2022-06-22] MEDS: ASPIRIN EC 81 MG TAB PO SCH (09:00)
[2022-06-22] MEDS ORDERED: DIVALPROEX DR 250 MG TAB PO ONE (09:07)
[2022-06-22] MEDS ORDERED: ASPIRIN EC 81 MG TAB PO ONE (09:07)
[2022-06-22 10:02] VITALS: BMI 23.0
--- NOTE | 2022-06-22 18:24 | P.SSS ---
Patient History Date of Service: 06/22/22 Reason for admission: AGITATION, ABUSE- VERBAL ETC. History of Present Illness: MR LUEVANO HAS CHRONIC HISTORY OF BIPOLAR DISEASE AND MANANGED BY . I JUST TALKED TO AND HE ADVISED RAISED DOSE OF DEPAKOTE AND TRANSFER TO INPATIENT PSYCHIATRY ALSO WALKED INTO OFFICE TODAY AND WE TALKED. SHE IS NOT ABLE TO TAKE CARE HIM. HE NEEDS NH AFTER ALL ABOVE. THIS IS NOT A PSYCH HOSPITAL AND THAT IS WHY I ASKED PA LAST NIGHT TO SEND HIM TO PSYCH HOSPITAL BUT THEY WERE NOT ABLE TO. Allergies No Known Allergies Allergy (Verified 07/22/21 07:10) Home medications list reviewed: Yes Home Medications: Divalproex [Depakote Sprinkle*] 250 mg PO BEDTIME 05/10/17 Paliperidone [Paliperidone ER] 1 tab PO BEDTIME 11/23/18 clonazePAM [Klonopin*] 0.25 mg PO BEDTIME 11/23/18 Divalproex Sodium 250 mg PO BEDTIME 07/17/21 Docusate Sodium [Stool Softener] 100 mg PO BEDTIME 07/17/21 Doxepin HCl 75 mg PO BEDTIME 07/17/21 Levothyroxine Sodium [Levothyroxine] 25 mcg PO DAILY 07/17/21 Magnesium Oxide [Mag 0X*] 800 mg PO DAILY 07/17/21 Propranolol [Inderal*] 10 mg PO BEDTIME 07/17/21 Rivaroxaban [Xarelto] 10 mg PO DAILY 07/17/21 Scopolamine Hydrobromide [Transderm-Scop*] 1 pat TD EVERY 3RD DAY 07/17/21 Tamsulosin HCl 0.4 mg PO BEDTIME 07/17/21 Testosterone Enanthate 200 mg IM DIRECTED 07/17/21 Codeine/APAP [Tylenol #3*] 1 tab PO Q6H PRN #12 tab 07/22/21 - Past Medical/Surgical History Diabetic: No -: Bipolar -: paranoid schizophrenia -: HTN -: GERD -: DVT -: Insomnia -: total right knee 2010 -: right ankle fx-screws placed 7 - 8 yrs ago [facility] -: prostate sx -: left eye sx -: left knee sx - Social History Smoking Status: Never smoker Alcohol use: No CD- Drugs: No Caffeine use: Yes Place of Residence: Home Review of Systems 10-point ROS is otherwise unremarkable General: Weakness, Malaise Neurological: Confusion, As per HPI Physical Examination - Vital Signs Temperature: 98.6 F Blood Pressure: 139/83 Pulse: 87 Respirations: 17 Pulse Ox (%): 97 - Physical Exam General: Alert, In no apparent distress HEENT: Atraumatic, PERRLA, Mucous membr. moist/pink, EOMI, Sclerae nonicteric Neck: Supple, 2+ carotid pulse no bruit, No LAD, Without JVD or thyroid abnormality Respiratory: Clear to auscultation bilaterally, Normal air movement Cardiovascular: Regular rate/rhythm, Normal S1 S2 Gastrointestinal: Normal bowel sounds, No tenderness Musculoskeletal: No tenderness Integumentary: No rashes Neurological: Normal speech, Other Lymphatics: No axilla or inguinal lymphadenopathy Other Physical/Emotional Findings: AGITATED, NOT COOPERATIVE. MANIC PER DR. Armstrong - Studies Laboratory Data (last 24 hrs) 06/21/22 18:06: PT 20.5 H, INR 1.86 06/21/22 18:06: WBC 6.00, Hgb 15.0, Hct 44.3, Plt Count 170 06/21/22 18:06: Sodium 142, Potassium 3.7, BUN 16, Creatinine 0.77, Glucose 126 H, Magnesium 1.9, Total Bilirubin 0.6, AST 10 L, ALT 19, Alkaline Phosphatase 85 - Diagnosis (Problem(s)) (1) Manic behavior Current Visit: Yes Status: Acute Plan: MANAGEDBY DR Armstrong MEDICALLY STABLE NEEDSTO BE IN [facility] CONSULT DONE THIS AM (2) Bipolar disorder Onset Date: 03/08/17 Current Visit: No Status: Acute - Disposition Disposition: ROUTINE DISCHARGE
[2022-06-22] MEDS: DIVALPROEX DR 500MG TAB PO SCH (20:42)
[2022-06-22] MEDS ORDERED: DOXEPIN HCL 25 MG CAP PO SCH ×2 (21:00)
[2022-06-23] MEDS: RIVAROXABAN 10 MG TABLET PO SCH (08:18)
[2022-06-23] MEDS: DIVALPROEX DR 500MG TAB PO SCH (08:18)
[2022-06-23] MEDS: ASPIRIN EC 81 MG TAB PO SCH (08:18)
[2022-06-23 09:23] VITALS: O2SAT 92
[2022-06-23 09:29] LABS: Absolute Lymphocytes (CBC) 0.8 K/uL (0.7-4.9); Hematocrit 45.4 % (39.6-49.0); Lymphocytes % 11.2 % (15.3-44.8); MCV 99.6 fL (80-100); MPV 8.6 fL (7.6-11.3); RBC Red Blood Cell Count 4.56 M/uL (4.33-5.43)
[2022-06-23 09:30] LABS: Potassium 4.2 mmol/L (3.5-5.1)
[2022-06-23 16:20] VITALS: BP 117/72; TEMP 97.1
--- NOTE | 2022-06-23 22:13 | DS ---
Date of Discharge: 06/23/2022 Final Diagnoses: Manic episode, history of bipolar disease, altered mental status. Hospital Course: Patient is an 81-year-old gentleman who is not able to survive at home any longer b ecause he is verbally abusive, agitated. cannot handle him anymore and brought to the emergency room. We are not a psychiatric hospital, but patient was not able to be transferred anywhere, so christopher perez was kept overnight, seen by Dr. Duong. He had adjusted Depakote dose. Now, he is being medina sferred to a psych hospital today. LINWOOD/NICOLE Voice ID: [id number] Report ID: [id number]
--- NOTE | 2022-06-24 08:59 | CON ---
Date of Consultation: 06/22/2022 Reason For Consultation: To evaluate patient for worsening agitation of 1-week duration. History Of Present Illness: History was provided mostly by patient's , who was present during th e visit in the ER. She states patient's mood has progressively gotten worse over the past 1-1/2 week when she noted patient has become very , irritable, and most recently over the weekend ___ aggressive. Patient has become very talkative, at times very loud tone and angered voice. S tates that patient has been stable on his medication. He has history of bipolar disorder multiple times manic episodes, but lately remained stable on chronic regimen. Patient's s leep has been patient states they became worried when patient was not only is talkative, b ut very irritable, screaming out, and getting angry with argumentative and presumably thre w a tray of food towards her that she had prepared for him. No history of suicidal ideation or self harm. No history of psychosis. He also did not have any recent history of anxiety and denied any hi story of depression. She states that patient has been compliant with medications as she is the one w ho administers all medications to him. Patient also sees neurologist for movement disorder. ___. Patient is noted to be diagnosed with dementia. She is his primary caregiver for patient, rosalva rodríguez patient has a son who lives in the area. Prior to this presentation, she stated patient had sim ilar presentation 8 years ago when this provider then said to take him off some of his medications. No history of alcohol or other substance abuse. Physical Examination: Vital Signs: Blood pressure 131/73, pulse rate is 98, respiratory rate is 18, temperature is 98.5. Mental Status Examination: Patient is fairly well-nourished, not in any acute d istress. He is alert and oriented to person and place. Only has cooperative with intervi ew. Speech was rapid and pressured, at times loud, screaming, and , which she did. Patien t's mood and affect indicates that he believes he has anger . Assessment: An 81-year-old man with chronic history of bipolar disorder, anxiety and admitted for worsening agitation, noted to have pressured speech for sleep, but no p sychosis. Lab work have revealed no significant findings. 1.Bipolar disorder, has episode manic. 2.Altered mental status. 3.Parkinson disease. Plan: 1.Recommend patient be admitted to after cleared medically. 2.We increased Depakote to 500 mg p.o. b.i.d. for mood stabilization. 3.We will continue haloperidol 20 mg p.o. daily. 4.Continue mg p.o. at bedtime for sleep. 5.I have discussed recommendation with treatment team. SUSANNA/NICOLE Voice ID: [id number] Report ID: [id number]
--- NOTE | 2022-06-25 08:09 | EKG ---
Test Date: 2022-06-22 Test Time: 07:20:34 Channel Machine Operator: JASON MEASUREMENT RESULTS: Intervals: Rate: 79 [place]: 168 QRSD: 72 QT: 352 QTc: 403 [place]: P: 31 [place]: 168 QRS: 38 T: 24 INTERPRETIVE STATEMENTS: Sinus rhythm with marked sinus arrhythmia Low voltage QRS Borderline ECG Compared to ECG 06/21/2022 17:58:03 Low QRS voltage now present Atrial premature complex(es) no longer present T-wave abnormality no longer present Electronically Signed On 06-25-22 08:00:12 OPERATIONS TECHNICIAN by Reilly Edmond
[2022-06-26 07:50] LABS: Urine Blood Negative (Negative); Urine Glucose Negative (Negative); Urine Protein Trace (Negative); Urine Specific Gravity >=1.030 (1.005-1.030); Urine pH 5.5 (5.0-7.0)
--- NOTE | 2022-06-30 17:37 | EKG ---
Test Date: 2022-06-21 Test Time: 17:58:03 Supervisor [employer] P[employer]: RICHELLE MEASUREMENT RESULTS: Intervals: Rate: 94 [place]: 168 QRSD: 74 QT: 354 QTc: 442 [place]: P: 28 DC: 168 QRS: 14 T: 9 INTERPRETIVE STATEMENTS: Sinus rhythm with premature atrial complexes Nonspecific T wave abnormality Abnormal ECG Compared to ECG 09/15/2021 06:01:51 T-wave abnormality now present Electronically Signed On 06-30-22 17:22:51 COATER by Reilly Edmond
== END 2022-06-23 17:00 | disposition short-term general hospital (02) | DRG 885 ==
LOC: ER 17:45 → ERHOLD 06-22 07:20 → 4TH 06-22 18:03
PROVIDERS: ADMIT Internal Medicine; ATTEND Internal Medicine
DX: F31.9 Bipolar disorder, unspecified (principal); I10 Essential (primary) hypertension; F20.9 Schizophrenia, unspecified; I48.0 Paroxysmal atrial fibrillation; K21.9 Gastro-esophageal reflux disease without esophagitis; G20 Parkinson's disease; F03.90 Unspecified dementia, unspecified severity, without behavioral disturbance, psychotic disturbance, mood disturbance, and anxiety; Z88.1 Allergy status to other antibiotic agents; Z88.8 Allergy status to other drugs, medicaments and biological substances; Z79.01 Long term (current) use of anticoagulants; Z86.718 Personal history of other venous thrombosis and embolism; Z79.899 Other long term (current) drug therapy; Z20.822 Contact with and (suspected) exposure to COVID-19
CPT/HCPCS: 36415; 70450; 71045; 80048; 80076; 81003; 81015; 83735; 83880; 84484; 85025; 85610; 87811; 93005; 96360; 99284; J7040